=== PATIENT | male | born 1940 | race Caucasian/White ===

== ENCOUNTER → 2018-08-19 14:46 | Outpatient (CLI) | payer MEDICARE, OTHER, SELFPAY ==
[2018-08-09 14:31] VITALS: BMI 35.8
[2018-08-19 16:39] LABS: Protein, Urine (Random) < 6.0 mg/dL (<11.9); Protein:Creat Ratio 259 mg/g CRE (0-200)
[2018-08-19 16:49] LABS: Anion Gap 4 (5-15); BUN 14 mg/dL (7-18); BUN/Creat Ratio 13.6 RATIO (10-20); Calcium,Total 9.7 mg/dL (8.5-10.1); Chloride 104 mmol/L (98-107); Creatinine, Serum 1.03 mg/dL (0.70-1.30); EST Glomerular Filtration Rate 74 mL/min (>60); Est Glom Filt Rate - Afr Amer 90 mL/min (>60); Glucose 85 mg/dL (74-106); Potassium 3.9 mmol/L (3.5-5.1); Sodium Level 136 mmol/L (136-145)
== END ==
PROVIDERS: Family Provider Internal Medicine; PCP Internal Medicine; Referring Provider Specialist; Visit Provider Specialist
DX: R60.9 Edema, unspecified (principal)
CPT/HCPCS: 36415; 80048; 82570; 84156

== ENCOUNTER → 2018-09-06 09:31 | Outpatient (CLI) | payer MEDICARE, OTHER, SELFPAY ==
[2018-08-23 14:22] VITALS: BMI 35.3
[2018-09-06 11:52] LABS: Anion Gap 7 (5-15); BUN 19 mg/dL (7-18); BUN/Creat Ratio 17.6 RATIO (10-20); Calcium,Total 9.2 mg/dL (8.5-10.1); Chloride 104 mmol/L (98-107); Creatinine, Serum 1.08 mg/dL (0.70-1.30); EST Glomerular Filtration Rate 70 mL/min (>60); Est Glom Filt Rate - Afr Amer 85 mL/min (>60); Glucose 90 mg/dL (74-106); Sodium Level 139 mmol/L (136-145)
== END ==
PROVIDERS: Family Provider Internal Medicine; PCP Internal Medicine; Referring Provider Specialist; Visit Provider Specialist
DX: I48.91 Unspecified atrial fibrillation (principal); G47.33 Obstructive sleep apnea (adult) (pediatric); I10 Essential (primary) hypertension
CPT/HCPCS: 36415; 80048

== ENCOUNTER → 2018-09-23 07:01 | Outpatient (CLI) | payer MEDICARE, OTHER, SELFPAY ==
[2018-09-13 14:18] VITALS: BMI 34.0
--- NOTE | 2018-09-23 07:05 | CT_ITS ---
STUDY: CT ABDOMEN AND PELVIS WITH AND WITHOUT CONTRAST REASON FOR EXAM: Male, 78 years old. Gross hematuria RADIATION DOSAGE (If Supplied By Facility): CTDIvol = ( 26.65 ) mGy, DLP = ( 2185.42 ) mGycm TECHNIQUE: Transaxial images were obtained from the dome of the diaphragm to the symphysis pubis without oral contrast. 100mL IV Isovue 300 was administered. Sagittal and coronal images were reconstructed. Individualized dose optimization techniques were used for this CT. COMPARISON: None. FINDINGS: There are chronic interstitial fibrotic changes of the lung bases. There are calcified coronary vessels. Normal liver. There are multiple tiny gallstones. Normal spleen. There is diffuse atrophy of the pancreas. There is a 2.83 cm smooth, low attenuation left adrenal mass, consistent with an adrenal adenoma. Normal right adrenal gland. No obstructive uropathy noted. There is nonspecific induration of the perinephric fat, likely age-related. Scattered simple cysts noted in both kidneys. Normal visualized stomach. Normal small intestine. There are multiple colonic diverticula consistent with diverticulosis. There is non-visualization of the appendix. There is diffuse atherosclerotic calcification of the abdominal aorta, without a demonstrated aneurysm. Normal inferior vena cava. Normal retroperitoneum. Bladder distends normally without wall thickening. There is enlargement of the prostate which contains calcifications. The prostate measures 4.8 x 6.0 x 5.1 cm There is a small umbilical hernia containing fat. There are diffuse degenerative changes of the visualized lumbar spine, and pelvis. CT/CT Abd/Pelvis W/WO Contrast IMPRESSION: No obstructive uropathy. There are scattered simple cysts in both kidneys and nonspecific stranding of the perinephric fat which is likely age-related. No evidence of bladder wall thickening or mass lesion. There is however enlargement of the prostate which impinges upon the inferior aspect of the bladder, there are prostatic calcifications suggesting chronic prostatitis. Colonic diverticulosis Cholelithiasis Diffuse atherosclerosis Likely left adrenal adenoma measuring 2.8 cm Degenerative bony changes Electronically Signed: Bassem Pulido MD at 8:00 EDT , Service support ,
== END ==
PROVIDERS: Family Provider Internal Medicine; PCP Internal Medicine; Referring Provider Nurse Practitioner Adult Health; Visit Provider Nurse Practitioner Adult Health
DX: R31.0 Gross hematuria (principal)
CPT/HCPCS: 74178; Q9967

== ENCOUNTER → 2018-11-08 14:46 | Outpatient (CLI) | payer MEDICARE, OTHER, SELFPAY ==
[2018-11-08 13:55] VITALS: BMI 33.7
[2018-11-08 15:37] LABS: Anion Gap 6 (5-15); BUN 18 mg/dL (7-18); BUN/Creat Ratio 15.5 RATIO (10-20); Calcium,Total 9.1 mg/dL (8.5-10.1); Chloride 108 mmol/L (98-107); Creatinine, Serum 1.16 mg/dL (0.70-1.30); EST Glomerular Filtration Rate 64 mL/min (>60); Est Glom Filt Rate - Afr Amer 78 mL/min (>60); Glucose 96 mg/dL (74-106); Potassium 4.1 mmol/L (3.5-5.1); Sodium Level 144 mmol/L (136-145)
== END ==
PROVIDERS: Family Provider Internal Medicine; PCP Internal Medicine; Referring Provider Specialist; Visit Provider Specialist
DX: I10 Essential (primary) hypertension (principal); I48.91 Unspecified atrial fibrillation
CPT/HCPCS: 36415; 80048; 83735

== ENCOUNTER → 2018-11-10 14:35 | Outpatient (CLI) | payer MEDICARE, OTHER, SELFPAY ==
[2018-11-08 13:55] VITALS: BMI 33.7
== END ==
PROVIDERS: Family Provider Internal Medicine; PCP Internal Medicine; Referring Provider Specialist; Visit Provider Specialist
DX: I47.2 Ventricular tachycardia (principal)
CPT/HCPCS: 93225; 93226

== ENCOUNTER → 2018-11-17 11:43 | Outpatient (CLI) | payer MEDICARE, OTHER, SELFPAY ==
[2018-11-08 13:55] VITALS: BMI 33.7
[2018-11-17 11:51] LABS: Bacteria 0 SEEN /hpf (None Seen); Mucous, Urine 0 SEEN /hpf (<or=2+); Red Blood Cells-Urine 0 SEEN /hpf (0-5); White Blood Cells 0 SEEN /hpf (0-5)
[2018-11-17 12:28] LABS: Color, Urine Yellow (Yellow); Glucose, Dipstick Normal (Normal); Hematocrit 49.8 % (40-54); Hemoglobin 16.3 g/dL (13.0-16.5); Ketone-Dipstick Negative (Negative); Leukocyte Esterase-Dipstick 25 /ul (Negative); Mean Corp Hgb Conc 32.7 g/dL (32-36); Mean Corpuscular Hgb 30.5 pg (27.0-32.0); Mean Corpuscular Volume 93.3 fL (80-94); Mean Platelet Vol. 11.9 fl (6.2-12.0); Nitrite-Dipstick Negative (Negative); Occult Blood-Urine Negative /ul (Negative); Platelet Count 153 K/mm3 (150-450); Protein-Dipstick 30 mg/dl (Negative); RBC Distribution Width CV 15.1 % (11.6-14.6); Red Blood Count 5.34 M/mm3 (4.6-6.2); Specific Gravity, Urine 1.015 (1.002-1.030); Urine Bilirubin Dipstick Negative (Negative); Urine Clarity Clear (Clear); Urine Urobilinogen Normal (Normal); White Blood Count 5.3 K/mm3 (4.4-11.0)
[2018-11-17 12:34] LABS: International Normalized Ratio 1.1; Prothrombin Time (Protime)PT. 13.7 SECONDS (11.7-14.9)
[2018-11-17 13:16] LABS: Anion Gap 3 (5-15); BUN 19 mg/dL (7-18); BUN/Creat Ratio 19.1 RATIO (10-20); Chloride 109 mmol/L (98-107); Creatinine, Serum 0.99 mg/dL (0.70-1.30); EST Glomerular Filtration Rate 77 mL/min (>60); Est Glom Filt Rate - Afr Amer 93 mL/min (>60); Glucose 89 mg/dL (74-106); Potassium 4.3 mmol/L (3.5-5.1); Sodium Level 141 mmol/L (136-145)
[2018-11-17 15:49] LABS: Squamous Epithelial Cells - UA 0-5 SEEN /hpf (0-5)
== END ==
PROVIDERS: Family Provider Internal Medicine; PCP Internal Medicine; Referring Provider Internal Medicine Cardiovascular Disease; Visit Provider Internal Medicine Cardiovascular Disease
DX: I45.5 Other specified heart block (principal); R00.1 Bradycardia, unspecified; I48.91 Unspecified atrial fibrillation
CPT/HCPCS: 36415; 80048; 81001; 85027; 85610

== ENCOUNTER 2018-11-18 13:15 | Observation (INO) | payer MEDICARE, OTHER, SELFPAY ==
[2018-11-08 13:55] VITALS: BMI 33.7
[2018-11-18] VITALS (8 sets, daily range): BP systolic 137–165; BP diastolic 78–99; PULSE 60–62; RESP 16–18; TEMP 36.5–36.9; O2SAT 93–94
[2018-11-18] MEDS: Primidone 50 MG Tablet PO (21:23)
[2018-11-19 03:01] VITALS: PULSE 60
[2018-11-19 03:22] VITALS: BP 127/69; PULSE 60; RESP 18; TEMP 36.6; O2SAT 96
--- NOTE | 2018-11-19 05:55 | RAD_ITS ---
STUDY: X-RAY CHEST REASON FOR EXAM: Male, 78 years old. Pneumothorax TECHNIQUE: Frontal and lateral views of the chest. COMPARISON: Single chamber pacemaker on the left. FINDINGS: Right basilar atelectasis. There is no demonstrated pleural abnormality. Normal size heart. Normal mediastinum and issa. Normal visualized pulmonary arteries. There is atherosclerotic calcification of the aortic arch with tortuosity. There are diffuse degenerative changes of the visualized thoracic spine. Remote rib trauma. There is no demonstrated abnormality of the visualized soft tissue structures of the upper abdomen. RAD/Chest PA and Lateral IMPRESSION: No pneumothorax is visible. Electronically Signed: Neftaly Donohue MD at 6:05 EDT Tel , Service support ,
[2018-11-19 07:23] VITALS: PULSE 55
--- NOTE | 2018-11-19 09:12 | PCM.PN.CARD ---
Subjectve: Patient seen and evaluated Objective: Vital Signs Temp Pulse Resp BP Pulse Ox 97.8 F 55 L 18 127/69 H 96 11/19/18 03:22 11/19/18 07:23 11/19/18 03:22 11/19/18 03:22 11/19/18 03:22 Oxygen Delivery Method Room Air Weight: 205 lb 9.6 oz Body Mass Index (BMI) 33.7 Intake and Output for Last 24 Hours 11/17/18 11/18/18 11/19/18 23:59 23:59 23:59 Intake Total 460 / 460 200 / 200 Output Total 450 / 450 150 / 150 Balance 50 / 50 General: Awake, Alert, Oriented x 3 HEENT: PERRL, EOMI, Sclera Non Icteric Neck: Supple, Good ROM, No Lymph Node Enlargement Lungs: Clear to auscultation Cardiovascular: Regular Rhythm, Normal S1, Normal S2, No Murmurs, No Rubs, No Gallops Vascular: No Carotid Bruits, Normal Femoral Pulses, Normal Radial Pulses, Normal Dorsalis Pedal Pulse, Normal Posterior Tibial Pulses Abdomen: Bowel Sounds Present, Soft, Non Tender, No HSM, No Organomegaly Extremities: No Cyanosis, No Clubbing, No edema Musculoskeletal: No Erythema Skin: No Rashes Lymphatic: No Lymph Node Enlargement Neurological: No Focal Motor or Sensory Deficit Psych/Mental Status: Appropriate Rhythm: EKG: ECHO: Stress Test: Cardiac Cath: PCI: CT Surgery: Holter monitor: EPS: PPM: CXR: Chest CT Scan: Medical Necessity - Tobacco Use Smoking Status: Former smoker Assessment/Plan Atrial fibrillation- status post pacer placement Chest x-ray demonstrates no evidence of pneumothorax pacer check demonstrates adequate positioning. Patient can be discharged for outpatient follow-up. Would recommend resuming anticoagulation on November 23.
--- NOTE | 2018-11-19 09:16 | DCINST_ITS ---
Discharge Diet: Low fat/ Low Cholesterol Discharge Activity: May Not Drive Additional Activity Instructions:: May shower or bathe on []. Do not scrub the incision or soak in the tub. Just wash with soap and let the water run over the incision. Gently pat dry with towel. Medications: Take your pain medication as directed. Refer to your discharge instruction sheet for a list of medications you are to take. Call your doctor if your incision/area has: Continuous Slow Oozing, Sudden I ncreased Bleeding, Increased Pain/ Swelling, Increased Redness, Foul Smelling Discharge, Swelling at the incision site Call your doctor if you observe: Fever of 101 or Higher, Shortness of breath, Dizziness, Fainting spells, Swelling in the ankles, Chest pain, Prolonged hiccoughing, Increased palpitations (irregular heartbeat) Suture Line Care: Avoid Pulling/Pushing, Avoid Pinching/Bending Cleanse incision/area with: Do not get Incision Wet, Keep Dressing Clean & Dry Additional Dressing/Incision Instructions:: When dressing is removed, wash and dry incision. Keep covered with a light bandage if it is rubbing against your clothing. Do not cover the incision with an airtight bandage. Change the bandage daily. Do not remove steri strips. The strips will fall off on their own. Additional Instructions: Signs and Symptoms to Report to Your Doctor at Once - call your doctor's office or Doctor's Registry ([phone]) Call 911 or go to the nearest Emergency Department if you feel you need urgent care. *Infection (fever, increased redness or swelling at the incision site, drainage from the incision increased pain at the pacemaker site) *Shortness of breath *Dizziness *Fainting spells *Swelling in the ankles *Chest pain *Prolonged hiccoughing *Increased palpitaitons (irregular heartbeat) Medications: Take your pain medication as directed. Refer to your discharge instruction sheet for a list of medications you are to take. Allergies/Adverse Reactions: Allergies No Known Allergies Allergy (Verified 11/08/18 13:57) Medications to take at Discharge omeprazole 20 mg capsule,delayed release 20 mg PO DAILY 08/05/18 primidone 50 mg tablet 50 mg PO BID tab 08/05/18 pyridoxine (vitamin B6) 100 mg tablet 100 mg PO DAILY 06/07/19 terazosin 5 mg capsule 5 mg PO DAILY 08/05/18 finasteride 5 mg tablet 5 mg PO DAILY 08/23/18 furosemide 20 mg tablet 40 mg PO DAILY #60 tab 08/23/18 potassium chloride ER 20 mEq tablet,extended release 20 meq PO DAILY #30 tab 08/23/18 apixaban 5 mg tablet 5 mg PO BID #60 tab 11/08/18 omega-3 fatty acids-fish oil 360 mg-1,200 mg capsule 1 cap PO DAILY 11/08/18 Primary Care Physician: Nicolas Cardenas MD [Primary Care Provider] - Test Results: Test results from this visit will be discussed in further detail at your follow- up appointment, if applicable. When: [facility] 11/28/2018 AT 1 PM Proposed Discharge Date: 11/19/18
[2018-11-19] MEDS: Pyridoxine HCl 100 MG Tablet PO (09:17)
[2018-11-19] MEDS: Pantoprazole Sodium 20 MG Tablet PO (09:19)
[2018-11-19] MEDS: Primidone 50 MG Tablet PO (09:19)
[2018-11-19] MEDS: Doxazosin 4 MG Tablet PO (09:21)
[2018-11-19] MEDS: Finasteride 5 MG Tablet PO (09:21)
[2018-11-19 09:22] VITALS: BP 153/86; PULSE 60; RESP 16; TEMP 36.7; O2SAT 96
--- NOTE | 2018-11-24 09:59 | CL.IE_ITS ---
Patient: JOHNATHON DILLARD Study Date: 11/18/2018 Performing: Edson Quinn MD : [id number] Age: 78 Gender: male PROCEDURES PERFORMED [id number] PACER INSERT+VENTRICULAR LEAD INDICATIONS Atrial fibrillation and symptomatic Bradycardia PROCEDURE DETAILS The patient was brought to the Catheterization Lab in the postabsorptive nonsedated state. Infor med consent was obtained prior to the procedure. Local anesthetic was given subcutaneously to the le ft upper chest area with Lidocaine 2%. Access was achieved and a guidewire was advanced into the left subclavian vein. Incision was made to the left upper chest. A peel-away sheath was inserted into the left subclavian vein. PPM ventricular lead was inserted / positioned to right ventricular apex. PPM ventricular lead testing performed. PPM ventricular lead testing performed. The Ventricular PM lead s utured in place with 2-0 Silk. PPM generator was attached to the lead(s) and inserted into the pocket . Device pocket was irrigated with antibiotic. Subcutaneous closure was completed with 3-0 Vicryl. Sk in closure was completed with 4-0 Vicryl. Instrument, sponge, and needle counts were noted to be norm al. The patient tolerated the procedure well. Estimated Blood Loss: < 10 mls IMPLANTED / EX-PLANTED DEVICES IMPLANTED DEVICE(S): PPM Ventricular lead - Cardiac Monitor: [employer], Model # 7742 , Serial # [id number] PPM Generator - Cardiac Monitor: [employer], Model # L110 , Serial # [id number] DEVICE PARAMETERS VENTRICULAR LEAD PARAMETERS: R wave (mV) - 12.9 current (mA) - 0.4 threshold (V) - 0.3 impedence (OHMS) - 879 10V test; no diaphragmatic capture R wave- 12.8 (mV) Current- 0.4 (mA) threshold- 0.3 (V) impedence- 879 (OHMS) 10V test, no diaphragmatic capture DEVICE PARAMETERS: Mode - VVI lower rate - 60 rate response off Mode- VVI Lower rate- 60 CONCLUSIONS / RECOMMENDATIONS Device Conclusions: Successful implantation of a single chamber pacemaker Device Recommendations: Follow up with Primary Care Physician PROCEDURE MEDICATIONS Versed 1 mg IV Fentanyl 25 mcg IV Oxygen: 2 L/min via nasal cannula Antibiotic given in appropriate timeframe. Ancef 2 Gm IV @ 11/18/2018 11:55:17 Signed By Edson Quinn MD On 11/18/2018 13:00:25 Edson Quinn MD
== END 2018-11-19 09:19 | disposition home or self-care (01) ==
LOC: PCU 14:33 → CLSP 14:35 → PCU 14:35
PROVIDERS: Admitting Provider Internal Medicine Cardiovascular Disease; Family Provider Internal Medicine; PCP Internal Medicine; Referring Provider Internal Medicine Cardiovascular Disease; Visit Provider Internal Medicine Cardiovascular Disease
DX: Z45.018 Encounter for adjustment and management of other part of cardiac pacemaker (principal); I48.91 Unspecified atrial fibrillation; R00.1 Bradycardia, unspecified; G47.33 Obstructive sleep apnea (adult) (pediatric); N40.0 Benign prostatic hyperplasia without lower urinary tract symptoms; I10 Essential (primary) hypertension; G25.0 Essential tremor; G89.29 Other chronic pain; Z87.891 Personal history of nicotine dependence; Z79.899 Other long term (current) drug therapy
CPT/HCPCS: 33207; 71046; 96366; 99152; 99153; 99218; J7040; J7050; C1894; G0378

== ENCOUNTER 2021-10-20 20:19 | Observation (INO) | payer MEDICARE, OTHER, SELFPAY ==
[2021-10-20 20:20] VITALS: BP 127/92; PULSE 60; RESP 28; TEMP 36.2; O2SAT 98; BMI 28.6
[2021-10-20 20:24] VITALS: BP 127/92; PULSE 60; RESP 25; TEMP 36.2; O2SAT 98
--- NOTE | 2021-10-20 21:06 | CT_ITS ---
STUDY: CT BRAIN WITHOUT CONTRAST REASON FOR EXAM: Male, 81 years old. fall RADIATION DOSAGE (If Supplied By Facility): CTDIvol = ( 44.99 ) mGy, DLP = ( 829.85 ) mGycm TECHNIQUE: Transaxial CT imaging of the brain was performed without administration of intravenous contrast material. Individualized dose optimization techniques were used for this CT. COMPARISON: No relevant priors. FINDINGS: Normal soft tissue structures. Normal calvarium. There is moderate cerebral atrophy with widening of the extra-axial spaces and ventricular dilatation. There are areas of decreased attenuation within the white matter tracts of the supratentorial brain, consistent with microvascular disease changes. Normal basal ganglia and thalami. Normal brainstem. Normal cerebellum. 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 Intracranial atherosclerosis. There is no intracranial hemorrhage. There are no findings of an acute ischemic infarction. Normal visualized paranasal sinuses. 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 Otherwise no acute disease. Recommend follow-up CTA. Electronically Signed: Joe Webb MD at 21:55 EDT ,
--- NOTE | 2021-10-20 21:07 | EDS_ITS ---
HPI HPI - Fall History of Present Illness Chief Complaint: Fall Informant: patient and family Occured/Mechanism Occurred: Today Mechanism/Context: Yes same level fall and Yes cannot recall fall Usually ambulates: Without assistance Pain/Injury Pain Location: none Associated Symptoms Associated Symptoms: Negative for Parasthesias, Weakness, Loss of function, Loss of consciousness or Amnesia Narrative Narrative: 81-year-old male history of dementia, A. fib on Eliquis and a pacemaker. Lives alone at his home but his daughter checks on him frequently. She went to check on him today and he was lying on the floor in the hallway going into the bathroom. He does not remember falling. He does not remember what happened. He denies any complaints. Prior similar symptoms: No Recent Illness/Hospitalization: No PFSH PFSH Medical History (Updated 10/20/21 @ 23:[address] Abhinav Leigh MD) Atrial fibrillation Benign neoplasm of colon BPH (benign prostatic hyperplasia) Bradycardia Chronic midline low back pain without sciatica Chronic rhinitis Essential (primary) hypertension Essential tremor Hematuria Mild memory disturbance Multiple gastric ulcers SUZAN on CPAP (11/07/18) Sick sinus syndrome Sinus pause Home Medications omeprazole 20 mg capsule,delayed release 20 mg PO DAILY GERD 08/05/18 [History Last Taken 11/18/18] pyridoxine (vitamin B6) 100 mg tablet 100 mg PO DAILY vitamin 08/05/18 [History Last Taken Unknown] terazosin 5 mg capsule 5 mg PO DAILY high blood pressure 08/05/18 [History Last Taken Unknown] finasteride 5 mg tablet 5 mg PO DAILY BPH 08/23/18 [History Last Taken Unknown] omega-3 fatty acids-fish oil 360 mg-1,200 mg capsule (Fish Oil) 1 cap PO DAILY supplement 11/08/18 [History Last Taken Unknown] furosemide 40 mg tablet 40 mg PO DAILY #90 tabs 11/11/20 [Rx Last Taken Unknown] potassium chloride 20 mEq tablet,extended release 20 meq PO DAILY #90 tabs 11/11/20 [Rx Last Taken Unknown] apixaban 5 mg tablet (Eliquis) 5 mg PO BID #180 tabs 04/14/21 [Rx Last Taken Unknown] aspirin 10/20/21 [History Last Taken Unknown] terazosin 5 mg capsule 5 mg PO DAILY 10/20/21 [History Last Taken Unknown] Allergy/AdvReac Type Severity Reaction Status Date / Time No Known Allergies Allergy Verified 10/20/21 21:09 Family History Father Heart disease Brother Heart disease Surgical History History of inguinal hernia repair History of tonsillectomy Presence of cardiac pacemaker (11/18/18) Social History Smoking Status: Current some day smoker tobacco type: cigarettes how long ago did patient quit smokin years ago alcohol intake: never substance use type: does not use caffeine: No ROS ROS ED ROS Narrative Denies recent illness. Family said he was in normal health yesterday. Review of Systems ROS Unobtainable: Denies due to encephalopathy Constitutional Constitutional ED: Denies chills Eyes Eyes: Denies blurry vision ENT ENT ED: Denies ear pain Cardiovascular Cardiovascular: Denies chest pain Respiratory/Chest Respiratory/Chest: Denies cough or dyspnea Gastrointestinal Gastrointestinal: Denies abdominal pain, constipation, diarrhea, melena, nausea or vomiting Genitourinary Genitourinary ED: Denies dysuria or hematuria Musculoskeletal Musculoskeletal: Denies arthralgias Integumentary Denies abscess Neurologic Neurologic: Denies headache(s) Psychiatric Psychiatric: Denies anxiety Endocrine Endocrinology: Denies polydipsia Hematologic/Lymphatic Hematologic/Lymphatic: Denies easy bleeding Allergic/Immunologic Allergic/Immunologic ED: Denies mouth swelling EXAM Physical Exam Narrative Exam Narrative: 81-year-old male no acute distress. Vital signs stable afebrile. Pulse ox 98% on room air no hypoxia. Daughter and son-in-law at bedside. H EENT exam pupils round reactive light. No signs of trauma to his face or scalp. Nontender. No hematomas. C-spine nontender. Trachea midline. Back nontender. Kyphotic. No signs of trauma. Lungs clear to auscultation. Heart regular rate about 60. Chest wall nontender. Abdomen soft nontender. Pelvic girdle intact. Patient moving all 4 extremities. No deformity. No shortening or rotation either hip. Neurologically is awake and alert. He does have dementia. He is a limited informant. But he is answering questions and following commands. No focal motor deficits. Const Vital Signs: 10/20/21 20:20 10/20/21 20:24 10/20/21 23:26 Temperature 97.2 F L 97.2 F L 98.6 F Temperature Source Oral Oral Temporal Pulse Rate 60 60 60 Respiratory Rate 28 H 25 H 20 H Blood Pressure 127/92 H 127/92 H 133/104 H Blood Pressure Mean 103 103 113 Pulse Ox 98 98 94 Oxygen Delivery Method Room Air Room Air Room Air Positive well nourished and well developed; Negative for obese, cachectic, contractures or unkempt General Appearance ED: well developed and NAD; Negative for unkempt, cachectic or contractures Nutritional Appearance: Negative for cachectic or obese HEENT Reports normocephalic atraumatic; Negative for trauma or contusion Eyes PERRL and EOMs intact bilaterally General Eye ED: Negative for pale conjunctiva or scleral icterus Neck full ROM, no lymphadenopathy and supple General: Negative for tenderness Chest Wall inspection of chest normal and palpation of chest normal Resp normal respiratory effort, no retractions and clear to auscultation bilaterally Auscultation: Negative for rales or rhonchi Cardio regular rate, S1 normal heart sound, S2 normal heart sound and no murmurs GI non-tender, non-distended and no masses Inspection: Negative for abdominal distention Auscultation: normoactive bowel sounds Palpation: soft; Negative for guarding Back/Spine no CVA tenderness General Back: Negative for CVA tenderness Cervical Spine: Negative for cervical spine tenderness Thoracic Spine / Upper Back: Negative for ROM limited Lumbar Spine / Lower Back: Negative for lumbar spinal tenderness Neuro No oriented x3, moves all extremities and no focal motor deficits Neuro Narrative: Patient has dementia. Poor informant. But he does answer questions and follows commands. Jass Coma Scale: document GCS findings Spontaneous Obeys Commands Oriented 15 Sensorium / Orientation: alert, oriented to person and oriented to place Motor Exam: strength 5/5 throughout Psych mental status grossly normal and thought process normal Appearance: Negative for unkempt Attitude: No agitated Mood & Affect: Negative for depressed, anxious or tearful Skin Lesions: no lesions Rashes: no rashes Trauma: Negative for abrasion MDM MDM MDM Narrative Medical decision making narrative: 81-year-old male fall at home. On Eliquis. I do not see any obvious signs of head trauma. Screening labs to be obtained. We will attempt a walking to see if he can ambulate. Repeat exam patient doing well at 10:45 PM. I discussed with the patient and his family all his test results. The nurses will attempt to ambulate and if he ambulates he will be discharged home. Daughter is at bedside and patient are both comfortable with him being discharged home. She is aware that Tess send a urine culture. He has had no urinary symptoms. I explained to them that I would not treat unless the culture came back positive. Nurses attempted to walk the patient around 11:20 and he was very weak and unsteady on his feet. He did catch him twice from falling to the ground. Daughter stated that deafly not his baseline. He does not use a walker or anything at home. I will speak to the hospitalist about admitting the patient for weakness and failure to thrive. Lab Data Attestation: I reviewed the patient's lab results. Lab results narrative: CBC shows a white count 13.5. H&H of 15 and 47. Normal platelets. Electrolytes show a gap of 9. Normal BUN and creatinine. Glucose of 110. UA shows 250 occult blood negative nitrates. 0 red cells 5-10 white cells no epithelial cells only 1+ bacteria. A urine culture be sent. He has had no re cent urinary tract symptoms. Labs: Laboratory Results - last 24 hr 10/20/21 10/20/21 10/20/21 21:28 21:28 21:58 WBC 13.5 H RBC 5.14 Hgb 15.9 Hct 47.7 MCV 92.8 MCH 30.9 MCHC 33.3 RDW Std Deviation 48.4 H RDW Coeff of Sonja 14.4 Plt Count 198 MPV 10.4 Immature Gran % (Auto) 0.700 Neut % (Auto) 85.8 H Lymph % (Auto) 4.4 L Greenwood % (Auto) 9.0 Eos % (Auto) 0.0 Baso % (Auto) 0.1 Absolute Neuts (auto) 11.6 H Absolute Lymphs (auto) 0.59 L Nucleated RBC % 0 Differential Comment SEE COMMENT Platelet Estimate ADEQUATE RBC Morphology N CHROM Anisocytosis RARE Macrocytosis RARE Sodium 141 Potassium 3.6 Chloride 107 Carbon Dioxide 25.0 Anion Gap 9 BUN 16 Creatinine 1.07 Estim Creat Clear Calc 53.23 Est GFR (MDRD) Af Amer 85 Est GFR (MDRD) Non-Af 70 BUN/Creatinine Ratio 15.0 Glucose 110 H Calcium 9.1 Urine Color Kristina Urine Clarity Sl. 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 Otherwise no acute disease. Recommend follow-up CTA. Electronically Signed: Joe Webb MD at 21:55 EDT , Chest X-Ray 10/20/21 21:34 IMPRESSION: Change in position of the pacer. Poor inspiratory effort. Electronically Signed: Joe Webb MD at 21:56 EDT , Pelvis X-Ray 10/20/21 21:34 IMPRESSION: Normal x-ray examination of the pelvis. Electronically Signed: Joe Webb MD at 21:58 EDT , Chest x-ray, portable, single view shows no acute abnormality. Normal cardiac silhouette. No pneumonia. Left-sided pacemaker. Interpreted both by myself and the radiologist. Pelvis x-ray single view cervical myself and radiologist shows no acute fracture or dislocation. Chronic changes. Rhythm Strip Rhythm Strip: Paced Rate: 60 Ectopy: None EKG Initial EKG: Attestation: I personally reviewed and interpreted this EKG as follows: Interpretation: No Acute Injury Pattern and Paced Comments: Ventricular paced rhythm rate of 60. No acute abnormality. Discharge Plan Triage Chief Complaint: Fall Other Complaint: Confusion ED Provider: Abhinav Leigh Dx/Rx/DC Orders Clinical Impression: Fall, History of atrial fibrillation, Chronic anticoagulation, Adult failure to thrive Instructions: ED Fall with Uncertain Cause Prescriptions: No Action omeprazole 20 mg capsule,delayed release(DR/EC) 20 mg PO DAILY pyridoxine (vitamin B6) 100 mg tablet 100 mg PO DAILY terazosin 5 mg capsule 5 mg PO DAILY finasteride 5 mg tablet 5 mg PO DAILY omega-3 fatty acids-fish oil [Fish Oil] 360-1,200 mg capsule 1 cap PO DAILY aspirin terazosin 5 mg capsule 5 mg PO DAILY furosemide 40 mg tablet 40 mg PO DAILY Qty: 90 3RF potassium chloride 20 mEq tablet extended release 20 meq PO DAILY Qty: 90 3RF Eliquis 5 mg tablet 5 mg PO BID Qty: 180 3RF Primary Care Provider: Nicolas Cardenas Referrals: Nicolas Cardenas MD [Primary Care Provider] - 3-5 Days if not improving Disposition Disposition: Acute Care Hospital [facility]
--- NOTE | 2021-10-20 21:07 | EKG12_ITS ---
Test Reason : DYSRHYTHMIA Blood Pressure : / mmHG Vent. Rate : 060 BPM Atrial Rate : 208 BPM P-R Int : 000 ms QRS Dur : 180 ms QT Int : 470 ms P-R-T Axes : 000 -69 075 degrees QTc Int : 470 ms Ventricular-paced rhythm Abnormal ECG Confirmed by LILI ALAMO, KAILEY ([id number]), editor publications ROMAN NAYAK ([id number]) on 10/22/2021 11:21:14 AM Referred By: DAYO Confirmed By:KAILEY PEARSON MD
[2021-10-20 21:33] LABS: Absolute Lymphocyte Count 0.59 X10^3/uL (0.83-4.51); Absolute Neutrophil Count 11.6 X10^3/uL (2.0-7.7); Basophil# 0.02 X10^3/uL; Basophil% 0.1 % (0-1); Hematocrit 47.7 % (40-54); Hemoglobin 15.9 g/dL (13.0-16.5); Lymphocyte # 0.59 X10^3/ul (0.83-4.51); Lymphocyte % 4.4 % (19-41); Mean Corp Hgb Conc 33.3 g/dL (32-36); Mean Corpuscular Hgb 30.9 pg (27.0-32.0); Mean Corpuscular Volume 92.8 fL (80-94); Mean Platelet Vol. 10.4 fl (6.2-12.0); Monocyte# 1.21 X10^3/uL; NRBC Flagged by Analyzer 0 % (0-5); Neutrophil # 11.59 X10^3/uL (2.7-7.7); Neutrophil % 85.8 % (47-70); POSITIVE DIFFERENTIAL YES; Platelet Count 198 K/mm3 (150-450); RBC Distribution Width CV 14.4 % (11.6-14.6); RBC Distribution Width SD 48.4 fl (35.1-43.9); Red Blood Count 5.14 M/mm3 (4.6-6.2); White Blood Count 13.5 K/mm3 (4.4-11.0)
--- NOTE | 2021-10-20 21:34 | RAD_ITS ---
STUDY: X-RAY - PELVIS REASON FOR EXAM: Male, 81 years old. fall TECHNIQUE: One view of the pelvis was obtained. COMPARISON: None. FINDINGS: There is a non-specific bowel gas pattern. Normal visualized soft tissue structures. Normal bilateral iliac wings, sacroiliac joints and visualized sacrum. Normal visualized bilateral superior and inferior pubic rami. Normal pubic symphysis. Normal ischial tuberosities. Normal visualized right femoral head. Normal right acetabulum. Normal right hip joint. Normal visualized left femoral head. Normal left acetabulum. Normal left hip joint. RAD/Pelvis 1 or 2 Views IMPRESSION: Normal x-ray examination of the pelvis. Electronically Signed: Joe Webb MD at 21:58 EDT ,
--- NOTE | 2021-10-20 21:34 | RAD_ITS ---
STUDY: X-RAY CHEST REASON FOR EXAM: Male, 81 years old. weakness TECHNIQUE: Single frontal view of the chest. COMPARISON: 11/19/2018 FINDINGS: Unipolar pacer on the left appears rotated. Elevated hemidiaphragms. The lungs are clear and expanded. There is no demonstrated pleural abnormality. Normal size heart. Normal mediastinum and issa. Normal visualized pulmonary arteries. Normal visualized aortic arch and descending thoracic aorta. Normal visualized thoracic spine. Normal visualized ribs, clavicles, and shoulders. There is no demonstrated abnormality of the visualized soft tissue structures of the upper abdomen. RAD/Chest 1 View (Portable) IMPRESSION: Change in position of the pacer. Poor inspiratory effort. Electronically Signed: Joe Webb MD at 21:56 EDT ,
[2021-10-20 21:36] LABS: Differential Indicated SCAN CRITERIA MET
[2021-10-20 21:51] LABS: Anion Gap 9 (5-15); BUN 16 mg/dL (7-18); Calcium,Total 9.1 mg/dL (8.5-10.1); Chloride 107 mmol/L (98-107); Creatinine, Serum 1.07 mg/dL (0.70-1.30); EST Glomerular Filtration Rate 70 mL/min (>60); Est Glom Filt Rate - Afr Amer 85 mL/min (>60); Estimated Creatinine Clearance 53.23 ml/min; Glucose 110 mg/dL (74-106); Potassium 3.6 mmol/L (3.5-5.1); Sodium Level 141 mmol/L (136-145)
[2021-10-20 22:04] LABS: Color, Urine Amber (Yellow); Glucose, Dipstick Normal (Normal); Ketone-Dipstick 50 mg/dl (Negative); Leukocyte Esterase-Dipstick 25 /ul (Negative); Mucous, Urine 0 SEEN /hpf (<or=2+); Nitrite-Dipstick Negative (Negative); Occult Blood-Urine 250 /ul (Negative); Protein-Dipstick 30 mg/dl (Negative); Red Blood Cells-Urine 0 SEEN /hpf (0-5); Specific Gravity, Urine 1.025 (1.002-1.030); Squamous Epithelial Cells - UA 0 SEEN /hpf (0-5); Urine Bilirubin Dipstick Negative (Negative); Urine Clarity Sl. Cloudy (Clear); Urine Urobilinogen 1 mg/dl (Normal)
[2021-10-20 22:09] LABS: Platelet Estimate ADEQUATE (ADEQ); Red Cell Morphology N CHROM NORMAL (NORM C&C)
[2021-10-20 22:10] LABS: Anisocytosis RARE; Macrocytosis RARE
[2021-10-20 22:12] LABS: White Blood Cells 5-10 SEEN /hpf (0-5)
[2021-10-20 22:13] LABS: Bacteria 1+ /hpf (None Seen); Hyaline Cast 0-5 SEEN /lpf (0-5)
[2021-10-20 23:26] VITALS: BP 133/104; PULSE 60; RESP 20; TEMP 37; O2SAT 94
--- NOTE | 2021-10-20 23:46 | HP.PCM.HOS_ITS ---
HPI - General General Date of Admission: 10/20/21 Date of Service: 10/20/21 Chief Complaint: Found lying on the floor HPI Narrative JOHNATHON DILLARD, is a 81 M with a significant history of sick sinus syndrome; atrial fibrillation; hypertension and with a permament pacemaker who presents to the emergency department because he was found on the floor. Patient lived by himself but once a while his adult children check on him. On the day of presentation his daughter checked on him and found him on the floor close to the bathroom. Patient stated that he felt unwell. At the emergency department attempt was made to walk patient. Reportedly patient almost fell 2-3 times and was caught by nurse. [facility] Medical History Atrial fibrillation Benign neoplasm of colon BPH (benign prostatic hyperplasia) Bradycardia Chronic midline low back pain without sciatica Chronic rhinitis Essential (primary) hypertension Essential tremor Hematuria Mild memory disturbance Multiple gastric ulcers SUZAN on CPAP (11/07/18) Sick sinus syndrome Sinus pause Home Medications omeprazole 20 mg capsule,delayed release 20 mg PO DAILY GERD 08/05/18 [History Last Taken 11/18/18] pyridoxine (vitamin B6) 100 mg tablet 100 mg PO DAILY vitamin 08/05/18 [History Last Taken Unknown] terazosin 5 mg capsule 5 mg PO DAILY high blood pressure 08/05/18 [History Last Taken Unknown] finasteride 5 mg tablet 5 mg PO DAILY BPH 08/23/18 [History Last Taken Unknown] omega-3 fatty acids-fish oil 360 mg-1,200 mg capsule (Fish Oil) 1 cap PO DAILY supplement 11/08/18 [History Last Taken Unknown] furosemide 40 mg tablet 40 mg PO DAILY #90 tabs 11/11/20 [Rx Last Taken Unknown] potassium chloride 20 mEq tablet,extended release 20 meq PO DAILY #90 tabs 11/11/20 [Rx Last Taken Unknown] apixaban 5 mg tablet (Eliquis) 5 mg PO BID #180 tabs 04/14/21 [Rx Last Taken Unknown] aspirin 10/20/21 [History Last Taken Unknown] terazosin 5 mg capsule 5 mg PO DAILY 10/20/21 [History Last Taken Unknown] Allergy/AdvReac Type Severity Reaction Status Date / Time No Known Allergies Allergy Verified 10/20/21 21:09 Family History Father Heart disease Brother Heart disease Surgical History History of inguinal hernia repair History of tonsillectomy Presence of cardiac pacemaker (11/18/18) Social History (Updated 10/21/21 @ 00:[address] Robinson Nguyen MD) Smoking Status: Former smoker how long ago did patient quit smokin years ago alcohol intake: never substance use type: does not use caffeine: No ROS ROS Narrative Pertinent positives and pertinent negatives as noted in HPI. All other systems were reviewed and are negative Vital Signs Vital Signs Vital Signs: 10/20/21 20:20 10/20/21 20:24 10/20/21 23:26 Temperature 97.2 F L 97.2 F L 98.6 F Temperature Source Oral Oral Temporal Pulse Rate 60 60 60 Respiratory Rate 28 H 25 H 20 H Blood Pressure 127/92 H 127/92 H 133/104 H Blood Pressure Mean 103 103 113 Pulse Ox 98 98 94 Oxygen Delivery Method Room Air Room Air Room Air Weight Weight: 87.9 kg Body Mass Index (BMI) 28.6 Physical Exam Narrative Physical exam: General: Well-nourished, well-developed. Head: Normocephalic, atraumatic, no tenderness Eyes: Vision is grossly intact. EOMI ENT, no trauma, moist mucous membranes, no rhinorrhea Neck: Nontender, full range of motion. CVS: Regular rate and rhythm. S1-S2 present. No murmur, gallop or rub. Respiratory : clear to auscultation bilaterally, chest wall nontender, no whee zing Abdomen: Soft, nontender, nondistended, normal bowel sounds, no masses : Deferred Back: Nontender, no CVA tenderness. Extremities: Nontender full range of motion, no trauma Skin: Abrasions on ankle of right foot. Normal color. Neuro: Alert, oriented, cranial nerves II through XII grossly intact. Psychiatry: Normal mood. Normal affect. Not depressed. Not anxious. Results Lab / Micro Data Attestation: I reviewed the patient's lab results. Result Diagrams: 10/20/21 21:28 10/20/21 21:28 Labs: Laboratory Results - last 24 hr 10/20/21 21:28: WBC 13.5 H, RBC 5.14, Hgb 15.9, Hct 47.7, MCV 92.8, MCH 30.9, MCHC 33.3, RDW Std Deviation 48.4 H, RDW Coeff of Sonja 14.4, Plt Count 198, MPV 10.4, Immature Gran % (Auto) 0.700, Neut % (Auto) 85.8 H, Lymph % (Auto) 4.4 L, [place] % (Auto) 9.0, Eos % (Auto) 0.0, Baso % (Auto) 0.1, Absolute Neuts (auto) 11.6 H, Absolute Lymphs (auto) 0.59 L, Nucleated RBC % 0, Differential Comment SEE COMMENT, Platelet Estimate ADEQUATE, RBC Morphology N CHROM, Anisocytosis RARE, Macrocytosis RARE 10/20/21 21:28: Sodium 141, Potassium 3.6, Chloride 107, Carbon Dioxide 25.0, Anion Gap 9, BUN 16, Creatinine 1.07, Estim Creat Clear Calc 53.23, Est GFR (MDRD) Af Amer 85, Est GFR (MDRD) Non-Af 70, BUN/Creatinine Ratio 15.0, Glucose 110 H, Calcium 9.1 10/20/21 21:58: Urine Color Kristina, Urine Clarity Sl. 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 Otherwise no acute disease. Recommend follow-up CTA. Electronically Signed: Joe Webb MD at 21:55 EDT Reading Location ID and State: [address] [place] [address] , Service support , Chest X-Ray 10/20/21 21:34 IMPRESSION: Change in position of the pacer. Poor inspiratory effort. Electronically Signed: Joe Webb MD at 21:56 EDT Reading Location ID and State: [facility] / [place] , Service support , Pelvis X-Ray 10/20/21 21:34 IMPRESSION: Normal x-ray examination of the pelvis. Electronically Signed: Joe Webb MD at 21:58 EDT Reading Location ID and State: [facility] / [place] , Service support , Assessment & Plan Assessment/Plan (1) Fall: PLAN: Plan Fall Pelvic X-ray was visualized and independently interpreted. No acute cardiopulmonary process seen. PT and OT to work with patient. Noted to have urine occult blood but no RBC seen. Check CPK. Case management consult for disposition. 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 Follow-up CTA recommended. CTA ordered Leukocytosis WBC of 13.5; likely reactive; trend DVT prophylaxis: Not indicated as patient is on Eliquis Eliquis continued Charges/Coding Visit Charges OBSV E&M: 38763 Initial observation care L2
--- NOTE | 2021-10-21 00:08 | CT_ITS ---
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 RADIATION DOSAGE (If Supplied By Facility): CTDIvol = ( 39.04 ) mGy, DLP = ( 738.38 ) mGycm TECHNIQUE: CT angiography was performed with a multi-detector CT scanner. Data acquisition was obtained from the skull base through the vertex following intravenous administration of 100 mL of Isovue-370. MIP images were reconstructed from the axial data set. Post-processing of the angiographic images was performed, with multiplanar reformation and 3D reconstruction. Individualized dose optimization techniques were used for this CT. COMPARISON: No relevant priors. FINDINGS: Normal bilateral petrous carotid arteries. There is ectatic elongation and tortuosity of the right cavernous carotid artery without a demonstrated hemodynamically significant stenosis. There is ectatic elongation and tortuosity of the left cavernous carotid artery without a demonstrated hemodynamically significant stenosis. There is hypoplastic development of the right A1 segment of the anterior cerebral arteries with an atretic but intact artery. Normal left A1 segments of the anterior cerebral artery. Normal intact anterior communicating artery (ACOM). Only a single A2 segment is visualized possibly an azygous variant. Normal right M1 and M2 segments of the middle cerebral arteries, with a normal M1 bifurcation. Normal left M1 and M2 segments of the middle cerebral arteries, with a normal M1 bifurcation. There is non-visualization of the right posterior communicating artery (PCOM). There is non-visualization of the left posterior communicating artery (PCOM). Normal bilateral vertebral arteries. There is elongation with tortuosity and diffuse enlargement consistent with dolichoectasia. The visualized bilateral superior cerebellar (SCA) arteries are normal. Normal bilateral P1, P2 and visualized P3 segments of the posterior cerebral arteries. There is no demonstrated aneurysm of the [place]. There are senescent changes of the brain. AORTIC ARCH: There is mild atherosclerotic calcification of the thoracic aorta. Normal origins of the brachiocephalic, left common carotid, and left subclavian arteries. RIGHT CAROTID ARTERIES: Normal right common carotid artery (CCA). There is mild atherosclerotic plaque formation with minimal narrowing of the right carotid bulb. Normal origin of the right internal carotid (ICA) artery without a hemodynamically significant stenosis. There is atherosclerotic tortuous elongation of the cervical portion of the right internal carotid artery. Normal origin of the right external carotid artery (ECA). LEFT CAROTID ARTERIES: There is atherosclerotic tortuous elongation of the left common carotid artery. There is mild atherosclerotic plaque formation with minimal narrowing of the left carotid bulb. Normal origin of the left internal carotid (ICA) artery without a hemodynamically significant stenosis. There is atherosclerotic tortuous elongation of the cervical portion of the left internal carotid artery. Normal origin of the left external carotid artery (ECA). VERTEBRAL ARTERIES: Normal bilateral vertebral arteries. NECK ANATOMY: Lung apices appear to be clear. Patient appears to have a left-sided pacemaker. The thyroid is mildly atrophic. Visualized parotid and submandibular glands have a normal appearance. Nasopharynx, oropharynx, hypopharynx and larynx have a grossly normal appearance. There are multilevel degenerative changes of the cervical spine with disc space narrowing at almost every level. Bones appear osteopenic. CT/CTA Head AND Neck W/ Contrast IMPRESSION: No CT evidence for hemodynamically significant stenosis, acute thrombosis, dissection or aneurysm. Electronically Signed: Marsha Tomas MD at 3:39 EDT ,
[2021-10-21 00:46] VITALS: BP 115/74; PULSE 60; RESP 25; TEMP 36.6; O2SAT 94
[2021-10-21 01:00] VITALS: BMI 28.1
[2021-10-21 01:22] VITALS: BP 128/64; PULSE 59; RESP 18; TEMP 37; O2SAT 97
[2021-10-21 05:51] LABS: Absolute Lymphocyte Count 0.75 X10^3/uL (0.83-4.51); Absolute Neutrophil Count 11.4 X10^3/uL (2.0-7.7); Basophil# 0.02 X10^3/uL; Basophil% 0.1 % (0-1); Hematocrit 47.3 % (40-54); Hemoglobin 15.7 g/dL (13.0-16.5); Lymphocyte # 0.75 X10^3/ul (0.83-4.51); Lymphocyte % 5.6 % (19-41); Mean Corp Hgb Conc 33.2 g/dL (32-36); Mean Corpuscular Hgb 31.2 pg (27.0-32.0); Mean Corpuscular Volume 93.8 fL (80-94); Mean Platelet Vol. 11.2 fl (6.2-12.0); Monocyte# 1.13 X10^3/uL; Monocyte% 8.5 % (0-10); NRBC Flagged by Analyzer 0 % (0-5); Neutrophil # 11.42 X10^3/uL (2.7-7.7); Neutrophil % 85.4 % (47-70); Platelet Count 219 K/mm3 (150-450); RBC Distribution Width CV 14.7 % (11.6-14.6); RBC Distribution Width SD 50.5 fl (35.1-43.9); Red Blood Count 5.04 M/mm3 (4.6-6.2); White Blood Count 13.4 K/mm3 (4.4-11.0)
[2021-10-21 06:42] LABS: Anion Gap 8 (5-15); BUN 16 mg/dL (7-18); BUN/Creat Ratio 14.2 RATIO (10-20); CPK Total, Creatine Kinase 4375 U/L (39-308); Calcium,Total 9.1 mg/dL (8.5-10.1); Chloride 107 mmol/L (98-107); Creatinine, Serum 1.13 mg/dL (0.70-1.30); EST Glomerular Filtration Rate 66 mL/min (>60); Est Glom Filt Rate - Afr Amer 80 mL/min (>60); Estimated Creatinine Clearance 48.76 ml/min; Glucose 144 mg/dL (74-106); Potassium 3.7 mmol/L (3.5-5.1); Sodium Level 141 mmol/L (136-145); Thyroid Stim Hormone (TSH) 1.56 uIU/mL (0.358-3.74)
--- NOTE | 2021-10-21 07:25 | PN.HOSP_ITS ---
Subjective Subjective Seen and examined. Patient had fall about 2 to 3 weeks ago. 7 years recently 1 fall last 1 year. He has problem in balance and quick turn.. No significant or major injury. No fever. Mild occasional constipation. No burning micturition/UTI. Objective Data Objective Data Vital Signs: Vital Signs Temp Pulse Resp BP Pulse Ox O2 Del Method 98.6 F 59 L 18 128/64 H 97 Room Air 10/21/21 01:22 10/21/21 01:22 10/21/21 01:10/21/21 01:10/21/21 01:10/21/21 01:22 Oxygen Delivery Method Room Air Weight: 190 lb 4.143 oz Body Mass Index (BMI) 28.1 Lab / Micro Data Result Diagrams: 10/21/21 04:26 10/21/21 04:26 Labs: Laboratory Results - last 24 hr 10/20/21 21:28: WBC 13.5 H, RBC 5.14, Hgb 15.9, Hct 47.7, MCV 92.8, MCH 30.9, MCHC 33.3, RDW Std Deviation 48.4 H, RDW Coeff of Sonja 14.4, Plt Count 198, MPV 10.4, Immature Gran % (Auto) 0.700, Neut % (Auto) 85.8 H, Lymph % (Auto) 4.4 L, [place] % (Auto) 9.0, Eos % (Auto) 0.0, Baso % (Auto) 0.1, Absolute Neuts (auto) 11.6 H, Absolute Lymphs (auto) 0.59 L, Nucleated RBC % 0, Differential Comment SEE COMMENT, Platelet Estimate ADEQUATE, RBC Morphology N CHROM, Anisocytosis RARE, Macrocytosis RARE 10/20/21 21:28: Sodium 141, Potassium 3.6, Chloride 107, Carbon Dioxide 25.0, Anion Gap 9, BUN 16, Creatinine 1.07, Estim Creat Clear Calc 53.23, Est GFR (MDRD) Af Amer 85, Est GFR (MDRD) Non-Af 70, BUN/Creatinine Ratio 15.0, Glucose 110 H, Calcium 9.1 10/20/21 21:58: Urine Color Kristina, Urine Clarity Sl. Cloudy, Urine pH 5.0, Ur Specific [place] 1.025, Urine Protein 30 H, Urine Glucose (UA) Normal, Urine Ketones 50 H, Urine Occult Blood 250 H, Urine Nitrite Negative, Urine Bilirubin Negative, Urine Urobilinogen 1 H, Ur Leukocyte Esterase 25 H, Urine RBC 0 SEEN, Urine WBC 5-10 SEEN, Ur Squamous Epith Cells 0 SEEN, Urine Bacteria 1+, Hyaline Casts 0-5 SEEN, Urine Mucus 0 SEEN 10/21/21 04:26: WBC 13.4 H, RBC 5.04, Hgb 15.7, Hct 47.3, MCV 93.8, MCH 31.2, MCHC 33.2, RDW Std Deviation 50.5 H, RDW Coeff of Sonja 14.7 H, Plt Count 219, MPV 11.2, Immature Gran % (Auto) 0.400, Neut % (Auto) 85.4 H, Lymph % (Auto) 5.6 L, [place] % (Auto) 8.5, Eos % (Auto) 0.0, Baso % (Auto) 0.1, Absolute Neuts (auto) 11.4 H, Absolute Lymphs (auto) 0.75 L, Nucleated RBC % 0 10/21/21 04:26: Sodium 141, Potassium 3.7, Chloride 107, Carbon Dioxide 26.0, Anion Gap 8, BUN 16, Creatinine 1.13, Estim Creat Clear Calc 48.76, Est GFR (MDRD) Af Amer 80, Est GFR (MDRD) Non-Af 66, BUN/Creatinine Ratio 14.2, Glucose 144 H, Calcium 9.1, Total Creatine Kinase 4375 H, TSH 1.56 Radiography Diagnostic Testing: Radiology Impression Brain CT 10/20/21 21:06 IMPRESSION: 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 Otherwise no acute disease. Recommend follow-up CTA. Electronically Signed: Joe Webb MD at 21:55 EDT Reading Location ID and State: [facility] / [place] , Service support , Chest X-Ray 10/20/21 21:34 IMPRESSION: Change in position of the pacer. Poor inspiratory effort. Electronically Signed: Joe Webb MD at 21:56 EDT Reading Location ID and State: [facility] / [place] , Service support , Pelvis X-Ray 10/20/21 21:34 IMPRESSION: Normal x-ray examination of the pelvis. Electronically Signed: Joe Webb MD at 21:58 EDT , Head/Neck CTA 10/21/21 00:08 IMPRESSION: No CT evidence for hemodynamically significant stenosis, acute thrombosis, dissection or aneurysm. Electronically Signed: Marsha Tomas MD at 3:39 EDT , Rhythm Strip Rhythm Strip: Paced Rate: 60 Ectopy: None Physical Exam Narrative Physical exam: General: Alert, Oriented x3, Cooperative HEENT: Atraumatic, PERRLA, EOMI, Normocephalic Oral: No Gingival or Mucosal Lesions/ Ulcerations Neck: Supple, No JVD, Negative Carotid Bruits Lungs: Air entry diminished in bilateral lung bases. No crepitation/rhonchi Cardiovascular: Regular rate, Regular Rhythm, Normal S1, Normal S2, No murmurs Abdomen: Bowel Sounds Present, Soft, Non Tender, Non-Distended : No renal angle tenderness. No suprapubic tenderness. Extremities: No edema, Capillary Refill Less than 3 Seconds Skin: No rashes, No breakdown Musculoskeletal: No Tenderness to Palpation of Joints or Extremities Neurological: Cranial nerves II-XII grossly intact, DTR 2+/4 and Symmetrical, Neuro grossly intact Psych/Mental Status: Normal Affect, Appropriate. Assessment & Plan Assessment/Plan (1) Fall: PLAN: Plan This is a 81-year-old gentleman was brought to ED after he was found on the floo r. In the ED, patient could not walk himself and were near fall situation 2-3 times under supervised walking by nurse 1. Fall with mild rhabdomyolysis Pelvic X-ray was visualized and independently reviewed and no acute fracture. CTA head and neck does not show acute issues. No significant hemodynamically significant stenosis or occlusion in CTA. PT and OT to evaluate the patient Case management consult for disposition. 2. 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 CT head did not support this. Leukocytosis WBC of 13.5; likely reactive; trend 3. Mild rhabdomyolysis: Noted to have urine occult blood but no RBC seen. CPK high 4375. No muscle tenderness or swelling on exam. IV fluid normal saline 75 mill per hour. Monitor CPK. Mild occasional constipation: On laxatives. 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 Otherwise no acute disease. Recommend follow-up CTA. Chest X-Ray 10/20/21 21:34 IMPRESSION: Change in position of the pacer. Poor inspiratory effort. Pelvis X-Ray 10/20/21 21:34 IMPRESSION: Normal x-ray examination of the pelvis. Head/Neck CTA 10/21/21 00:08 IMPRESSION: No CT evidence for hemodynamically significant stenosis, acute thrombosis, dissection or aneurysm. Charges/Coding Visit Charges OBSV E&M: 30742 Subsequent observation care L2
[2021-10-21 08:00] VITALS: BP 125/67; PULSE 59; RESP 18; TEMP 37.1; O2SAT 97
[2021-10-21] MEDS: Potassium Chloride Oral Tablet 20 MEQ PO (08:38)
[2021-10-21] MEDS: Menthol/Lanolin/Calamine/Znox 113 GM Tube 1 APPLIC TOPICAL ×2 (08:39→21:44)
[2021-10-21] MEDS: Omega-3 Acid Ethyl Esters 1 GM Capsule PO (08:40)
[2021-10-21] MEDS: APIXABAN 5 MG TABLET PO ×2 (08:40→21:46)
[2021-10-21] MEDS: Doxazosin 4 MG Tablet PO (08:40)
[2021-10-21] MEDS: Finasteride 5 MG Tablet PO (08:40)
[2021-10-21] MEDS: Nystatin Powder 15gm Bottle 1 APPLIC TOPICAL ×2 (08:40→21:44)
[2021-10-21] MEDS: Furosemide 40 MG Tablet PO (08:41)
[2021-10-21] MEDS: Pantoprazole Sodium 20 MG Tablet PO (08:41)
[2021-10-21] MEDS: Pyridoxine HCl 100 MG Tablet PO (08:41)
[2021-10-21 09:11] LABS: Vitamin D,25 Hydroxy 10.8 ng/mL
--- NOTE | 2021-10-21 10:24 | CASEMGMT ---
Addendum entered by Kristina Ferrari 10/21/21 11:46: Pt's son gave choice for SNF as [facility] in [place], followed by [facility]. Addendum entered by Kristina Ferrari 10/21/21 11:32: CONOR met with pt's son who discussed he is currently in the process of obtaining guardianship over his fathers person and estate due to his fathers demented state. Pt's son had documentation from pt's PCP and is awaiting a court date. He discussed that he has been looking into the [facility] ([facility]) for vermin exterminator care for his father. SW explained to him that his father may need a skilled level of care. SW explained that that a phone call to gather information from [facility] would occur and that SW would keep him updated. SW called [facility] and talked with admissions. This worker struggled to hear the woman on the phone and she stating she was having technology issues. She stated she was not sure that the facility could take pt in a skilled level of care and suggested the pt's family send him under private pay to their memory care unit. SW informed that the pt may need rehab first, but that the family was considering [facility] for their memory care unit and private pay. The woman asked this worker to send a referral and provided the fax number: [phone]. Original Note: Social Work SW in to meet with pt and his daughter, Jazmine Foster. SW introduced self and role at the hospital. Pt did not speak and instead referred to his daughter to discuss discharge plans with SW. Jazmine shared she believes pt will need a nursing facility to work on rehab. SW discussed the pending PT/OT evaluations and that staff would have a clearer picture of pt's needs once these are complete. Jazmine voiced understanding. Patient and his daughter were provided a list of?SNF?providers including quality and resource use data that is consistent with the patient?s preferred geographic region, medical needs, and insurance network to plan options if SNF is recommended by therapy. At this time Jazmine discussed waiting or her older brother to make the correct choice of SNF for their father. She indicated her brother would be at the hospital this afternoon. Plan: SNF, if therapy recommends after evaluations. MEGHANN Etienne
--- NOTE | 2021-10-21 11:52 | CASEMGMT ---
Discharge Pain Management Nurse Rosanne dominguez commercial lending assistant sent referral over to [facility]. Asked admissions to contact CONOR Acevedo with any questions. Rosanne Vega Discharge Pain Management Nurse
--- NOTE | 2021-10-21 12:07 | CASEMGMT ---
Social Work SW in to speak with pt's son regarding phonce call with [facility]. SW explained that facility is unsure if they can take pt under skilled level of care. Explained this would mean if he wanted his father to go to this facility he would have to private pay. Pt's son stated they are unable to privately pay at this time. SW asked if he would like a referral sent to [facility] [place] as second choice and he was agreeable. Plan: [facility] vs. [facility], pending acceptance. MEGHANN Etienne
[2021-10-21 14:00] VITALS: BP 119/67; PULSE 59; RESP 16; TEMP 36.5; O2SAT 95
--- NOTE | 2021-10-21 14:00 | CASEMGMT ---
Discharge Template Checker Rosanne Ambrose multimedia production assistant called Tracy at [facility]. Counce will have two beds open. Rosanne junior/rosemary multimedia production assistant also sent referral to patients second choice. Will follow up. Plan: [facility] vs [facility], Waiting Acceptance. Rosanne Vega Discharge Template Checker
--- NOTE | 2021-10-21 16:02 | CASEMGMT ---
RN CM in to discuss RAMIREZ form with patient/son. RN CM explained RAMIREZ form, patient/son voiced understanding. Pt son signed form and filed in chart. Pt and son provided with a copy of signed RAMIREZ form. Patient/son had no further questions or concerns at this time.
--- NOTE | 2021-10-21 16:05 | CASEMGMT ---
Social Work SW in to speak to pt's son, Jhonny Jimenez, and discussed possibility that pt would not get approved for skilled rehab based on his PT/OT evaluations and notes. SW explained based on these notes that pt does not demonstrate a significant need for SNF. Jhonny voiced understanding after SW continued to educate and clarify on insurance coverage benefits. SW discussed option of pt having HHC after discharge if necessary and Jhonny stated this may be a good option for his father if he cannot go to SNF. SW provided contact number for Jhonny to reach out with further questions. Kristina Ferrari, MEGHANN
[2021-10-21] MEDS: 0.9% Normal Saline 1,000 ML 75 ML IV (18:08)
[2021-10-21] MEDS: 0.9% Saline Lock 10 ML Syringe IV (18:09)
[2021-10-21 20:00] VITALS: BP 116/62; PULSE 60; RESP 18; TEMP 36.8; O2SAT 94
[2021-10-21] MEDS: Senna/Docusate Sodium 1 Tablet 2 TABLET PO (21:46)
[2021-10-22] VITALS: BP 149/57; PULSE 85; RESP 18; TEMP 36.9; O2SAT 94
--- NOTE | 2021-10-22 00:12 | PCM.HOSP.N ---
Hospitalist Note Patient set off his bed alarm, found sitting on the floor. Unable to discern any head trauma. Initially reported no pain and no obvious injuries upon initial evaluation. Patient with notable dementia and several attempts to get up through the evening. Will add low dose seroquel q HS given this history and his fall. To be cautious will obtain CT head.
--- NOTE | 2021-10-22 00:13 | CT_ITS ---
EXAM: CT HEAD WITHOUT INTRAVENOUS CONTRAST CLINICAL INDICATION: Fall TECHNIQUE: Multiple axial images were obtained of the head without intravenous contrast. This CT exam was performed using one or more of the following dose reduction techniques: automated exposure control, adjustment of the mA and/or kV according to patient size, and/or use of iterative reconstruction technique. This report was created using [employer] report generation technology. COMPARISON: 10/20/2021 FINDINGS: BRAIN AND EXTRA-AXIAL SPACES: Diffuse cerebral volume loss. Periventricular small vessel ischemic changes. No intra- or extra-axial hemorrhage. No intracranial mass or mass effect. Posterior fossa structures are unremarkable. No hydrocephalus. Basal cisterns are patent. BONES/JOINTS: Unremarkable. No discrete lytic or blastic abnormalities. VASCULATURE: Vascular calcifications. SINUSES: Unremarkable as visualized. Clear. MASTOID AIR CELLS: Unremarkable. Clear. ORBITS: Visualized globes, extraocular muscles, optic nerves and retrobulbar fat appear unremarkable. CT/Brain/Head without Contrast IMPRESSION: 1. No acute intracranial abnormalities. 2. Age-related changes. Electronically Signed: Ciaran Li MD at 1:04 EDT ,
[2021-10-22] MEDS: QUEtiapine 25 MG Tablet 12.5 MG PO (00:42)
[2021-10-22 02:30] VITALS: BP 118/69; PULSE 67; RESP 20; TEMP 36.4; O2SAT 95
[2021-10-22 06:53] LABS: CPK Total, Creatine Kinase 1616 U/L (39-308)
--- NOTE | 2021-10-22 07:46 | CASEMGMT ---
Discharge Creative Strategist Tracy reached out. Patient has been accepted at [facility]. If patient is medically ready patient can go to [facility] but not until evening as [facility] has to clean room from a discharge that will be leaving today. Tracy will give the okay when the room is ready. Plan: [facility] Discharge Creative Strategist
--- NOTE | 2021-10-22 08:07 | CASEMGMT ---
Social Work SW received pc from [facility]. Pt was not accepted. They do not have a bed available at this time. MEGHANN Etienne
[2021-10-22 08:30] VITALS: BP 125/71; PULSE 59; RESP 16; TEMP 36.8; O2SAT 95
[2021-10-22] MEDS: Doxazosin 4 MG Tablet PO (09:03)
[2021-10-22] MEDS: Potassium Chloride Oral Tablet 20 MEQ PO (09:03)
[2021-10-22] MEDS: Omega-3 Acid Ethyl Esters 1 GM Capsule PO (09:03)
[2021-10-22] MEDS: Finasteride 5 MG Tablet PO (09:03)
[2021-10-22] MEDS: APIXABAN 5 MG TABLET PO (09:03)
[2021-10-22] MEDS: Menthol/Lanolin/Calamine/Znox 113 GM Tube 1 APPLIC TOPICAL (09:03)
[2021-10-22] MEDS: Pantoprazole Sodium 20 MG Tablet PO (09:04)
[2021-10-22] MEDS: Pyridoxine HCl 100 MG Tablet PO (09:04)
[2021-10-22] MEDS: Senna/Docusate Sodium 1 Tablet 2 TABLET PO (09:04)
[2021-10-22] MEDS: Nystatin Powder 15gm Bottle 1 APPLIC TOPICAL (09:04)
--- NOTE | 2021-10-22 09:21 | PCM.TXEXTCAR ---
Diet Diet Order/Speech Therapy: 10/21/21 01:00 Diet: Cardiac - Heart Healthy Food consistency:: Regular Liquid Consistency:: Regular/Thin Routine Orders/Code Status Suppository Type: Dulcolax 10mg Suppository Frequency: Daily PRN Code Status: Full Code Wound(s) R. elbow: Wound Type: Abrasion Therapies Weight Bearing: Weight bearing as tolerated Extremity Affected:: Bilateral Lower Physical Therapy: Eval and Treat Occupational Therapy: Eval and Treat Speech Therapy: Eval and Treat Problem/Diagnosis (1) Fall: Status: Acute Code(s): W19.XXXA - Unspecified fall, initial encounter Allergies/Procedures Done in Hospital Allergies No Known Allergies Allergy (Verified 10/20/21 21:09) Type of Care/Length of Stay Estimated LOS: Convalescent Care Less Than 30 days Type of Care Needed: Skilled Rehab Potential: Good Prognosis: Good Additional Orders/Day of Discharge Day of Discharge: 10/22/21 Discharge Plan Admission Admit Date/Time: 10/20/21 23:39 Primary Reason for Your Visit: Fall, confusion possible dementia. Mild rhabdomyolysis Attending Provider: Kevin Nichole Primary Care Provider: Nicolas Cardenas Consulting Providers: Robinson Nguyen Instructions Patient Instructions: ED Fall with Uncertain Cause Discharge Orders/Prescriptions Prescriptions: New sennosides-docusate sodium [Stool Softener-Stimulant Laxat] 8.6-50 mg Tablet 2 tab PO BID Qty: 0 0RF menthol-zinc oxide [Calmoseptine] 0.44-20.6 % Ointment 1 applic topical BID Qty: 0 0RF Protocol: *Topical Application Instructions APPLICATION INSTRUCTIONS: apply to coccyx/buttocks Continued omeprazole 20 mg capsule,delayed release(DR/EC) 20 mg PO DAILY pyridoxine (vitamin B6) 100 mg tablet 100 mg PO DAILY finasteride 5 mg tablet 5 mg PO QHS omega-3 fatty acids-fish oil [Fish Oil] 360-1,200 mg capsule 1 cap PO DAILY terazosin 5 mg capsule 5 mg PO QHS potassium chloride 20 mEq tablet extended release 20 meq PO DAILY Qty: 90 3RF Eliquis 5 mg tablet 5 mg PO BID Qty: 180 3RF Held furosemide 40 mg tablet 40 mg PO DAILY Qty: 90 3RF Hold Instructions: Start from 10/24/2021 Referrals / Follow Up: Nicolas Cardenas MD [Primary Care Provider] - Within 2 Weeks Disposition Disposition (needs filled in before D/C Order can be placed): Custodial Facility
--- NOTE | 2021-10-22 09:31 | DS.PCM_ITS ---
Providers Date of Admission: 10/20/21 Date of Discharge: 10/22/21 Primary Care Physician: Dr. Nicolas Cardenas MD Reason For Visit: FALL, DEBILITY Diagnosis Discharge Diagnosis (1) Fall: Status: Acute Code(s): W19.XXXA - Unspecified fall, initial encounter Medications at Discharge Home Medications omeprazole 20 mg capsule,delayed release 20 mg PO DAILY GERD 08/05/18 pyridoxine (vitamin B6) 100 mg tablet 100 mg PO DAILY vitamin 08/05/18 finasteride 5 mg tablet 5 mg PO QHS BPH 08/23/18 omega-3 fatty acids-fish oil 360 mg-1,200 mg capsule (Fish Oil) 1 cap PO DAILY supplement 11/08/18 furosemide 40 mg tablet 40 mg PO DAILY #90 tabs 11/11/20 potassium chloride 20 mEq tablet,extended release 20 meq PO DAILY #90 tabs 11/11/20 apixaban 5 mg tablet (Eliquis) 5 mg PO BID #180 tabs 04/14/21 terazosin 5 mg capsule 5 mg PO QHS 10/20/21 menthol 0.44 %-zinc oxide 20.6 % topical ointment (Calmoseptine) 1 applic topical BID #0 grams 10/22/21 sennosides 8.6 mg-docusate sodium 50 mg tablet (Stool Softener-Stimulant Laxative) 2 tab PO BID #0 tabs 10/22/21 Hospital Course Summary of Care Provided Hospital Course: This is a 81-year-old gentleman was brought to ED after he was found on the ks oor. In the ED, patient could not walk himself and were near fall situation 2-3 times under supervised walking by nurse 1. Fall with mild rhabdomyolysis Pelvic X-ray was visualized and independently reviewed and no acute fracture. CTA head and neck does not show acute issues. No significant hemodynamically significant stenosis or occlusion in CTA. 10/22: UA shows LE 25 WBC 5-10 cells, nitrite negative. Patient denies burning micturition/dysuria. Patient was found on the floor, does not remember how he went there. Evaluated by PT and OT and patient is being discharged to SNF. Patient might have dementia/amnesia/MCI, patient might also need [facility] psych evaluation as an outpatient. 2. Abnormal brain CT of basilar artery aneurysm ruled out CTA head raised the issue of possible basilar tip artery aneurysm. CT head did not support this. Leukocytosis WBC of 13.5; likely reactive; trend 3. Mild rhabdomyolysis: Noted to have urine occult blood but no RBC seen. CPK high 4375. No muscle tenderness or swelling on exam. IV fluid normal saline 75 mill per hour. Monitor CPK. 10/22: Repeat CK improved. Mild occasional constipation: On laxatives. DVT prophylaxis: Not indicated as patient is on Eliquis Eliquis continued Discharge medication reconciliation done. Discharge follow-up instructions completed. Discharge process discussed with the patient and all questions were answered to patient's satisfaction. Total time spent, exact 35 minutes on discharge meds reconciliation, examination, coordination of care with nurses and ancillary staff, review of imaging and blood test and discussion with the patient on follow-up instructions. 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 Otherwise no acute disease. Recommend follow-up CTA. Chest X-Ray 10/20/21 21:34 IMPRESSION: Change in position of the pacer. Poor inspiratory effort. Pelvis X-Ray 10/20/21 21:34 IMPRESSION: Normal x-ray examination of the pelvis. Head/Neck CTA 10/21/21 00:08 IMPRESSION: No CT evidence for hemodynamically significant stenosis, acute thrombosis, dissection or aneurysm. Physical Exam Narrative Seen and examined. Patient was found on the floor last night. Patient does not remember how he went there. As per the nursing report he is fasting walking but also he might have dementia. Repeat CT head was done which did not show acute intracranial abnormality Physical exam: General: Alert, Oriented x3, Cooperative HEENT: Atraumatic, PERRLA, EOMI, Normocephalic Oral: No Gingival or Mucosal Lesions/ Ulcerations Neck: Supple, No JVD, Negative Carotid Bruits Lungs: Air entry diminished in bilateral lung bases. No crepitation/rhonchi Cardiovascular: Regular rate, Regular Rhythm, Normal S1, Normal S2, No murmurs Abdomen: Bowel Sounds Present, Soft, Non Tender, Non-Distended : No renal angle tenderness. No suprapubic tenderness. Extremities: No edema, Capillary Refill Less than 3 Seconds Skin: No rashes, No breakdown Musculoskeletal: No Tenderness to Palpation of Joints or Extremities Neurological: Cranial nerves II-XII grossly intact, DTR 2+/4 and Symmetrical, Neuro grossly intact Psych/Mental Status: Normal Affect, Appropriate. Weight / BMI Weight Weight: 190 lb 4.143 oz Body Mass Index (BMI) 28.1 ABG / Lab / Microbiology Data Result Diagrams: 10/21/21 04:26 10/21/21 04:26 Laboratory: Laboratory Results - last 24 hr 10/22/21 05:37: Total Creatine Kinase 1616 H Radiography Diagnostic Testing: Radiology Impression Brain CT 10/22/21 00:13 IMPRESSION: 1. No acute intracranial abnormalities. 2. Age-related changes. Electronically Signed: Ciaran Li MD at 1:04 EDT , Meaningful Use Info Meaningful Use Diagnoses (Choose all that apply): None applicable Discharge Plan Admission Admit Date/Time: 10/20/21 23:39 Primary Reason for Your Visit: Fall, confusion possible dementia. Mild rhabdomyolysis Attending Provider: Kevin Nichole Primary Care Provider: Nicolas Cardenas Consulting Providers: Robinson Nguyen Instructions Patient Instructions: ED Fall with Uncertain Cause Discharge Orders/Prescriptions Prescriptions: New sennosides-docusate sodium [Stool Softener-Stimulant Laxat] 8.6-50 mg Tablet 2 tab PO BID Qty: 0 0RF menthol-zinc oxide [Calmoseptine] 0.44-20.6 % Ointment 1 applic topical BID Qty: 0 0RF Protocol: *Topical Application Instructions APPLICATION INSTRUCTIONS: apply to coccyx/buttocks Continued omeprazole 20 mg capsule,delayed release(DR/EC) 20 mg PO DAILY pyridoxine (vitamin B6) 100 mg tablet 100 mg PO DAILY finasteride 5 mg tablet 5 mg PO QHS omega-3 fatty acids-fish oil [Fish Oil] 360-1,200 mg capsule 1 cap PO DAILY terazosin 5 mg capsule 5 mg PO QHS potassium chloride 20 mEq tablet extended release 20 meq PO DAILY Qty: 90 3RF Eliquis 5 mg tablet 5 mg PO BID Qty: 180 3RF Held furosemide 40 mg tablet 40 mg PO DAILY Qty: 90 3RF Hold Instructions: Start from 10/24/2021 Referrals / Follow Up: Nicolas Cardenas MD [Primary Care Provider] - Within 2 Weeks Disposition Disposition (needs filled in before D/C Order can be placed): Longterm Facility Charges/Coding Visit Charges Inpatient E&M: 44143 Disch Hosp
--- NOTE | 2021-10-22 09:47 | CASEMGMT ---
Social Work SW in to pt room to notifiy him that he has been accepted to [facility]. Pt confused, stated I don't know what to say. SW reassured pt and told him his childre, Jazmine and Jhonny, would be updated on what is happening with his discharge plans. Pt okay with this. CONOR called pt's daughter Jazmine, and informed her of pt's denial for [facility] in [place] and that he had been accepted at [facility]. SE explained [facility] does not have a bed until 4 pm but that her father would be transported there by this evening. Jazmine voiced understanding and stated she would call her brother, Jhonny, to inform him of this information. SW called Tracy at [facility], left message to confirm 4pm transport time would be alright with [facility]. Plan: [facility], waiting for confirmation of time that bed is available there today MEGHANN Etienne
--- NOTE | 2021-10-22 09:54 | PHA.DC.MR ---
Pharmacy Service has performed discharge medication reconciliation for this patient. The patient's discharge medication list was reviewed for discrepancies and discrepancies were resolved. Home Medications omeprazole 20 mg capsule,delayed release 20 mg PO DAILY GERD 08/05/18 pyridoxine (vitamin B6) 100 mg tablet 100 mg PO DAILY vitamin 08/05/18 finasteride 5 mg tablet 5 mg PO QHS BPH 08/23/18 omega-3 fatty acids-fish oil 360 mg-1,200 mg capsule (Fish Oil) 1 cap PO DAILY supplement 11/08/18 furosemide 40 mg tablet 40 mg PO DAILY #90 tabs 11/11/20 potassium chloride 20 mEq tablet,extended release 20 meq PO DAILY #90 tabs 11/11/20 apixaban 5 mg tablet (Eliquis) 5 mg PO BID #180 tabs 04/14/21 terazosin 5 mg capsule 5 mg PO QHS 10/20/21 menthol 0.44 %-zinc oxide 20.6 % topical ointment (Calmoseptine) 1 applic topical BID #0 grams 10/22/21 sennosides 8.6 mg-docusate sodium 50 mg tablet (Stool Softener-Stimulant Laxative) 2 tab PO BID #0 tabs 10/22/21
--- NOTE | 2021-10-22 10:45 | CASEMGMT ---
Social Work SW in to speak to pt's son, Jhonny Jimenez, to inform him of denial at [facility] and the approval for [place]. Jhonny voiced frustration with pt's fall over night. He stated he was not sure why his father needed an IV and is certain the IV was the cause of his fall last night. Jhonny stated he felt like pt should not have had the IV. This SW validated Johnny's feelings and asked him if he would like to speak with the Patient Advocate. Jhonny declined, stating I would just get irate and continued talking about being frustrated. This SW attempted to ease Jhonny's concerns but also educated Jhonny that medical information is outside this SW's scope of practice and he would need to speak with a medical professional to find the answers he wants. Jhnony voiced understanding. Encouraged Jhonny to ask for SW if he would like to speak to the patient advocate at a later time. SW called Rob and left a voicemail outlining Jhonny's concerns and informing him that Jhonny may want to speak with him later this day. Kristina Ferrari, MEGHANN
--- NOTE | 2021-10-22 14:40 | CASEMGMT ---
Social Work CONOR received pc from [facility] stating room was available for pt now. SW went into pt room to update pt's son on transport time. He voiced understanding that pt would be discharged to SNF.? CONOR asked pt's nurse to determine if he needs wheelchair or cot and then set up transportation for pt via [facility] with wheelchair for?4:00pm. CONOR called Tracy and left a message to inform her of pt transport time. Completed Full PASSR level of care in [facility]ENS system and placed report on pt file along with transfer order and med list. Faxed orders to SNF and placed copies on pt chart and in envelope to go with pt. Pt disposition: Pt discharging to SNF under skilled level of care. MEGHANN Etienne
== END 2021-10-22 17:24 | disposition skilled nursing facility (03) ==
LOC: ED 23:34 → MS3 23:48
PROVIDERS: Admitting Provider Hospitalist; Emergency Provider Emergency Medicine; PCP Internal Medicine; Visit Provider Internal Medicine
DX: M62.82 Rhabdomyolysis (principal); F03.90 Unspecified dementia, unspecified severity, without behavioral disturbance, psychotic disturbance, mood disturbance, and anxiety; I48.91 Unspecified atrial fibrillation; R62.7 Adult failure to thrive; F17.210 Nicotine dependence, cigarettes, uncomplicated; I10 Essential (primary) hypertension; R53.81 Other malaise; Z95.0 Presence of cardiac pacemaker; R41.0 Disorientation, unspecified; Z91.81 History of falling; N40.0 Benign prostatic hyperplasia without lower urinary tract symptoms; G47.33 Obstructive sleep apnea (adult) (pediatric); Z79.899 Other long term (current) drug therapy; Z79.01 Long term (current) use of anticoagulants; Z79.82 Long term (current) use of aspirin
CPT/HCPCS: 36415; 70450; 70496; 70498; 71045; 72170; 80048; 81001; 82306; 82550; 84443; 85025; 87086; 87088; 87426; 93005; 96360; 96361; 97162; 97166; 97535; 99218; 99285; J7030; Q9967; A4216; G0378

== ENCOUNTER → 2021-11-26 | Outpatient (REF) | payer MEDICARE, OTHER, SELFPAY ==
[2021-11-26 08:43] LABS: Absolute Lymphocyte Count 1.47 X10^3/uL (0.83-4.51); Absolute Neutrophil Count 6.4 X10^3/uL (2.0-7.7); Basophil# 0.05 X10^3/uL; Basophil% 0.6 % (0-1); Eosinophils% 1.1 % (0-5); Hematocrit 46.5 % (40-54); Hemoglobin 15.3 g/dL (13.0-16.5); Lymphocyte # 1.47 X10^3/ul (0.83-4.51); Lymphocyte % 16.4 % (19-41); Mean Corp Hgb Conc 32.9 g/dL (32-36); Mean Corpuscular Hgb 31.8 pg (27.0-32.0); Mean Corpuscular Volume 96.7 fL (80-94); Mean Platelet Vol. 11.2 fl (6.2-12.0); Monocyte# 0.89 X10^3/uL; Monocyte% 9.9 % (0-10); NRBC Flagged by Analyzer 0 % (0-5); Neutrophil # 6.42 X10^3/uL (2.7-7.7); Neutrophil % 71.7 % (47-70); Platelet Count 181 K/mm3 (150-450); RBC Distribution Width CV 14.5 % (11.6-14.6); RBC Distribution Width SD 51.9 fl (35.1-43.9); Red Blood Count 4.81 M/mm3 (4.6-6.2)
[2021-11-26 08:54] LABS: Anion Gap 6 (5-15); BUN 15 mg/dL (7-18); BUN/Creat Ratio 13.3 RATIO (10-20); Calcium,Total 8.7 mg/dL (8.5-10.1); Chloride 107 mmol/L (98-107); Creatinine, Serum 1.13 mg/dL (0.70-1.30); EST Glomerular Filtration Rate 66 mL/min (>60); Est Glom Filt Rate - Afr Amer 80 mL/min (>60); Glucose 92 mg/dL (74-106); Sodium Level 141 mmol/L (136-145)
== END ==
LOC: OLS.WHLTSB 04:49
PROVIDERS: PCP Internal Medicine; Visit Provider Family Medicine
DX: I10 Essential (primary) hypertension (principal); K59.00 Constipation, unspecified; M62.81 Muscle weakness (generalized); N40.0 Benign prostatic hyperplasia without lower urinary tract symptoms; R00.1 Bradycardia, unspecified; R13.12 Dysphagia, oropharyngeal phase; R26.2 Difficulty in walking, not elsewhere classified
CPT/HCPCS: 36415; 80048; 85025

== ENCOUNTER → 2021-12-10 | Outpatient (REF) | payer MEDICARE, OTHER, SELFPAY ==
[2021-12-10 08:50] LABS: Absolute Lymphocyte Count 1.33 X10^3/uL (0.83-4.51); Absolute Neutrophil Count 4.8 X10^3/uL (2.0-7.7); Basophil# 0.03 X10^3/uL; Basophil% 0.4 % (0-1); Eosinophil# 0.09 X10^3/uL; Eosinophils% 1.3 % (0-5); Hematocrit 46.8 % (40-54); Hemoglobin 15.5 g/dL (13.0-16.5); Lymphocyte # 1.33 X10^3/ul (0.83-4.51); Lymphocyte % 19.1 % (19-41); Mean Corp Hgb Conc 33.1 g/dL (32-36); Mean Corpuscular Hgb 31.8 pg (27.0-32.0); Mean Corpuscular Volume 95.9 fL (80-94); Mean Platelet Vol. 10.8 fl (6.2-12.0); Monocyte# 0.68 X10^3/uL; Monocyte% 9.8 % (0-10); NRBC Flagged by Analyzer 0 % (0-5); Neutrophil # 4.81 X10^3/uL (2.7-7.7); Neutrophil % 69.1 % (47-70); Platelet Count 176 K/mm3 (150-450); RBC Distribution Width CV 14.4 % (11.6-14.6); RBC Distribution Width SD 51.1 fl (35.1-43.9); Red Blood Count 4.88 M/mm3 (4.6-6.2)
[2021-12-10 08:59] LABS: Anion Gap 6 (5-15); BUN 12 mg/dL (7-18); BUN/Creat Ratio 11.3 RATIO (10-20); Calcium,Total 8.9 mg/dL (8.5-10.1); Chloride 105 mmol/L (98-107); Creatinine, Serum 1.06 mg/dL (0.70-1.30); EST Glomerular Filtration Rate 71 mL/min (>60); Est Glom Filt Rate - Afr Amer 86 mL/min (>60); Glucose 103 mg/dL (74-106); Potassium 3.7 mmol/L (3.5-5.1); Sodium Level 141 mmol/L (136-145)
== END ==
LOC: OLS.WHLTSB 05:00
PROVIDERS: PCP Internal Medicine; Visit Provider Family Medicine
DX: I10 Essential (primary) hypertension (principal); K59.00 Constipation, unspecified; M62.81 Muscle weakness (generalized); N40.0 Benign prostatic hyperplasia without lower urinary tract symptoms; R26.2 Difficulty in walking, not elsewhere classified; R13.12 Dysphagia, oropharyngeal phase
CPT/HCPCS: 36415; 80048; 85025

== ENCOUNTER → 2021-12-24 | Outpatient (REF) | payer MEDICARE, OTHER, SELFPAY ==
[2021-12-24 07:44] LABS: Anion Gap 5 (5-15); BUN 15 mg/dL (7-18); BUN/Creat Ratio 14.7 RATIO (10-20); Calcium,Total 8.8 mg/dL (8.5-10.1); Chloride 109 mmol/L (98-107); Creatinine, Serum 1.02 mg/dL (0.70-1.30); EST Glomerular Filtration Rate 74 mL/min (>60); Est Glom Filt Rate - Afr Amer 90 mL/min (>60); Glucose 93 mg/dL (74-106); Sodium Level 140 mmol/L (136-145)
[2021-12-24 07:55] LABS: Absolute Neutrophil Count 4.8 X10^3/uL (2.0-7.7); Basophil# 0.03 X10^3/uL; Basophil% 0.4 % (0-1); Eosinophil# 0.11 X10^3/uL; Eosinophils% 1.5 % (0-5); Hematocrit 43.6 % (40-54); Hemoglobin 14.5 g/dL (13.0-16.5); Lymphocyte % 22.2 % (19-41); Mean Corp Hgb Conc 33.3 g/dL (32-36); Mean Corpuscular Hgb 32.3 pg (27.0-32.0); Mean Corpuscular Volume 97.1 fL (80-94); Mean Platelet Vol. 11.2 fl (6.2-12.0); Monocyte# 0.65 X10^3/uL; NRBC Flagged by Analyzer 0 % (0-5); Neutrophil % 66.8 % (47-70); Platelet Count 166 K/mm3 (150-450); RBC Distribution Width CV 14.4 % (11.6-14.6); RBC Distribution Width SD 51.8 fl (35.1-43.9); Red Blood Count 4.49 M/mm3 (4.6-6.2); White Blood Count 7.2 K/mm3 (4.4-11.0)
== END ==
LOC: OLS.WHLTSB 05:00
PROVIDERS: PCP Internal Medicine; Visit Provider Family Medicine
DX: I10 Essential (primary) hypertension (principal); K59.00 Constipation, unspecified; M62.81 Muscle weakness (generalized); N40.0 Benign prostatic hyperplasia without lower urinary tract symptoms; R00.1 Bradycardia, unspecified; R13.12 Dysphagia, oropharyngeal phase; R26.2 Difficulty in walking, not elsewhere classified
CPT/HCPCS: 36415; 80048; 85025

== ENCOUNTER → 2022-01-07 | Outpatient (REF) | payer MEDICARE, OTHER, SELFPAY ==
[2022-01-07 07:45] LABS: Anion Gap 8 (5-15); BUN 13 mg/dL (7-18); BUN/Creat Ratio 11.4 RATIO (10-20); Calcium,Total 8.8 mg/dL (8.5-10.1); Chloride 104 mmol/L (98-107); Creatinine, Serum 1.14 mg/dL (0.70-1.30); EST Glomerular Filtration Rate 65 mL/min (>60); Est Glom Filt Rate - Afr Amer 79 mL/min (>60); Glucose 89 mg/dL (74-106); Potassium 4.1 mmol/L (3.5-5.1); Sodium Level 141 mmol/L (136-145)
[2022-01-07 07:48] LABS: Absolute Lymphocyte Count 1.54 X10^3/uL (0.83-4.51); Absolute Neutrophil Count 4.8 X10^3/uL (2.0-7.7); Basophil# 0.02 X10^3/uL; Basophil% 0.3 % (0-1); Eosinophil# 0.14 X10^3/uL; Eosinophils% 1.9 % (0-5); Hematocrit 46.7 % (40-54); Hemoglobin 15.2 g/dL (13.0-16.5); Lymphocyte # 1.54 X10^3/ul (0.83-4.51); Lymphocyte % 21.3 % (19-41); Mean Corp Hgb Conc 32.5 g/dL (32-36); Mean Corpuscular Hgb 31.7 pg (27.0-32.0); Mean Corpuscular Volume 97.3 fL (80-94); Mean Platelet Vol. 11.2 fl (6.2-12.0); Monocyte% 9.7 % (0-10); NRBC Flagged by Analyzer 0 % (0-5); Neutrophil # 4.82 X10^3/uL (2.7-7.7); Neutrophil % 66.5 % (47-70); Platelet Count 192 K/mm3 (150-450); RBC Distribution Width CV 14.5 % (11.6-14.6); White Blood Count 7.2 K/mm3 (4.4-11.0)
== END ==
LOC: OLS.WHLTSB 05:00
PROVIDERS: PCP Internal Medicine; Visit Provider Family Medicine
DX: I10 Essential (primary) hypertension (principal); K59.00 Constipation, unspecified; M62.81 Muscle weakness (generalized); N40.0 Benign prostatic hyperplasia without lower urinary tract symptoms; R00.1 Bradycardia, unspecified; R13.12 Dysphagia, oropharyngeal phase; R26.2 Difficulty in walking, not elsewhere classified
CPT/HCPCS: 36415; 80048; 85025

== ENCOUNTER → 2022-04-01 | Outpatient (REF) | payer MEDICARE, OTHER, SELFPAY ==
[2022-04-01 08:22] LABS: Absolute Lymphocyte Count 1.25 X10^3/uL (0.83-4.51); Absolute Neutrophil Count 4.7 X10^3/uL (2.0-7.7); Basophil# 0.03 X10^3/uL; Basophil% 0.4 % (0-1); Eosinophils% 1.5 % (0-5); Hematocrit 45.5 % (40-54); Hemoglobin 14.8 g/dL (13.0-16.5); Lymphocyte # 1.25 X10^3/ul (0.83-4.51); Lymphocyte % 18.5 % (19-41); Mean Corp Hgb Conc 32.5 g/dL (32-36); Mean Corpuscular Hgb 31.6 pg (27.0-32.0); Mean Platelet Vol. 11.5 fl (6.2-12.0); Monocyte# 0.69 X10^3/uL; Monocyte% 10.2 % (0-10); NRBC Flagged by Analyzer 0 % (0-5); Neutrophil # 4.68 X10^3/uL (2.7-7.7); Neutrophil % 69.1 % (47-70); Platelet Count 167 K/mm3 (150-450); RBC Distribution Width CV 14.4 % (11.6-14.6); RBC Distribution Width SD 51.1 fl (35.1-43.9); Red Blood Count 4.69 M/mm3 (4.6-6.2); White Blood Count 6.8 K/mm3 (4.4-11.0)
[2022-04-01 09:04] LABS: Anion Gap 6 (5-15); BUN 13 mg/dL (7-18); Calcium,Total 9.1 mg/dL (8.5-10.1); Chloride 108 mmol/L (98-107); EST Glomerular Filtration Rate 76 mL/min (>60); Est Glom Filt Rate - Afr Amer 92 mL/min (>60); Glucose 106 mg/dL (74-106); Potassium 3.6 mmol/L (3.5-5.1); Sodium Level 143 mmol/L (136-145)
== END ==
LOC: OLS.WHLTSB 05:00
PROVIDERS: PCP Internal Medicine; Visit Provider Internal Medicine
DX: I10 Essential (primary) hypertension (principal); K59.00 Constipation, unspecified; M62.81 Muscle weakness (generalized); N40.0 Benign prostatic hyperplasia without lower urinary tract symptoms; R00.1 Bradycardia, unspecified; R13.12 Dysphagia, oropharyngeal phase; R26.2 Difficulty in walking, not elsewhere classified
CPT/HCPCS: 36415; 80048; 85025

== ENCOUNTER → 2022-06-29 | Outpatient (REF) | payer MEDICARE, OTHER, SELFPAY ==
[2022-06-29 07:39] LABS: Absolute Lymphocyte Count 1.43 X10^3/uL (0.83-4.51); Absolute Neutrophil Count 4.4 X10^3/uL (2.0-7.7); Basophil# 0.04 X10^3/uL; Basophil% 0.6 % (0-1); Eosinophils% 1.5 % (0-5); Hemoglobin 14.5 g/dL (13.0-16.5); Lymphocyte # 1.43 X10^3/ul (0.83-4.51); Lymphocyte % 21.5 % (19-41); Mean Corp Hgb Conc 32.2 g/dL (32-36); Mean Corpuscular Hgb 31.9 pg (27.0-32.0); Mean Corpuscular Volume 98.9 fL (80-94); Mean Platelet Vol. 11.2 fl (6.2-12.0); Monocyte# 0.71 X10^3/uL; Monocyte% 10.7 % (0-10); NRBC Flagged by Analyzer 0 % (0-5); Neutrophil # 4.35 X10^3/uL (2.7-7.7); Neutrophil % 65.4 % (47-70); Platelet Count 161 K/mm3 (150-450); RBC Distribution Width CV 14.3 % (11.6-14.6); RBC Distribution Width SD 51.6 fl (35.1-43.9); Red Blood Count 4.55 M/mm3 (4.6-6.2); White Blood Count 6.7 K/mm3 (4.4-11.0)
[2022-06-29 07:52] LABS: Anion Gap 3 (5-15); BUN 14 mg/dL (7-18); BUN/Creat Ratio 13.6 RATIO (10-20); Calcium,Total 8.7 mg/dL (8.5-10.1); Chloride 107 mmol/L (98-107); Creatinine, Serum 1.03 mg/dL (0.70-1.30); EST Glomerular Filtration Rate 73 mL/min (>60); Est Glom Filt Rate - Afr Amer 89 mL/min (>60); Glucose 85 mg/dL (74-106); Potassium 3.6 mmol/L (3.5-5.1); Sodium Level 140 mmol/L (136-145)
== END ==
LOC: OLS.WHLTSB 05:00
PROVIDERS: PCP Internal Medicine; Visit Provider Internal Medicine
DX: I10 Essential (primary) hypertension (principal)
CPT/HCPCS: 36415; 80048; 85025

== ENCOUNTER → 2022-09-29 | Outpatient (REF) | payer MEDICARE, OTHER, SELFPAY ==
[2022-09-29 09:48] LABS: Absolute Lymphocyte Count 1.19 X10^3/uL (0.83-4.51); Absolute Neutrophil Count 8.4 X10^3/uL (2.0-7.7); Basophil# 0.02 X10^3/uL; Basophil% 0.2 % (0-1); Eosinophil# 0.01 X10^3/uL; Eosinophils% 0.1 % (0-5); Hematocrit 45.9 % (40-54); Hemoglobin 14.6 g/dL (13.0-16.5); Lymphocyte # 1.19 X10^3/ul (0.83-4.51); Lymphocyte % 11.5 % (19-41); Mean Corp Hgb Conc 31.8 g/dL (32-36); Mean Corpuscular Hgb 31.6 pg (27.0-32.0); Mean Corpuscular Volume 99.4 fL (80-94); Mean Platelet Vol. 11.5 fl (6.2-12.0); Monocyte# 0.76 X10^3/uL; Monocyte% 7.3 % (0-10); NRBC Flagged by Analyzer 0 % (0-5); Neutrophil # 8.35 X10^3/uL (2.7-7.7); Neutrophil % 80.3 % (47-70); Platelet Count 185 K/mm3 (150-450); RBC Distribution Width CV 14.2 % (11.6-14.6); RBC Distribution Width SD 51.7 fl (35.1-43.9); Red Blood Count 4.62 M/mm3 (4.6-6.2); White Blood Count 10.4 K/mm3 (4.4-11.0)
[2022-09-29 10:03] LABS: Anion Gap 4 (5-15); BUN 13 mg/dL (7-18); BUN/Creat Ratio 13.8 RATIO (10-20); Calcium,Total 8.9 mg/dL (8.5-10.1); Chloride 109 mmol/L (98-107); Creatinine, Serum 0.94 mg/dL (0.70-1.30); EST Glomerular Filtration Rate 81 mL/min (>60); Est Glom Filt Rate - Afr Amer 98 mL/min (>60); Glucose 100 mg/dL (74-106); Sodium Level 141 mmol/L (136-145)
== END ==
LOC: OLS.WHLTSB 05:00
PROVIDERS: PCP Internal Medicine; Visit Provider Internal Medicine
DX: I10 Essential (primary) hypertension (principal)
CPT/HCPCS: 36415; 80048; 85025

== ENCOUNTER → 2022-12-30 | Outpatient (REF) | payer MEDICARE, OTHER, SELFPAY ==
[2022-12-30 08:49] LABS: Absolute Lymphocyte Count 1.16 X10^3/uL (0.83-4.51); Absolute Neutrophil Count 5.4 X10^3/uL (2.0-7.7); Basophil# 0.03 X10^3/uL; Basophil% 0.4 % (0-1); Eosinophils% 1.3 % (0-5); Hematocrit 41.3 % (40-54); Lymphocyte # 1.16 X10^3/ul (0.83-4.51); Lymphocyte % 15.6 % (19-41); Mean Corp Hgb Conc 31.5 g/dL (32-36); Mean Corpuscular Hgb 31.3 pg (27.0-32.0); Mean Corpuscular Volume 99.5 fL (80-94); Mean Platelet Vol. 11.6 fl (6.2-12.0); Monocyte# 0.71 X10^3/uL; Monocyte% 9.6 % (0-10); NRBC Flagged by Analyzer 0 % (0-5); Neutrophil % 72.7 % (47-70); Platelet Count 165 K/mm3 (150-450); RBC Distribution Width CV 14.2 % (11.6-14.6); RBC Distribution Width SD 51.5 fl (35.1-43.9); Red Blood Count 4.15 M/mm3 (4.6-6.2); White Blood Count 7.4 K/mm3 (4.4-11.0)
[2022-12-30 09:19] LABS: Anion Gap 6 (5-15); BUN 10 mg/dL (7-18); BUN/Creat Ratio 11.6 RATIO (10-20); Calcium,Total 8.3 mg/dL (8.5-10.1); Chloride 109 mmol/L (98-107); Creatinine, Serum 0.86 mg/dL (0.70-1.30); EST Glomerular Filtration Rate 90 mL/min (>60); Est Glom Filt Rate - Afr Amer 108 mL/min (>60); Glucose 84 mg/dL (74-106); Potassium 3.6 mmol/L (3.5-5.1); Sodium Level 142 mmol/L (136-145)
== END ==
LOC: OLS.WHLTSB 05:00
PROVIDERS: PCP Internal Medicine; Visit Provider Internal Medicine
DX: I10 Essential (primary) hypertension (principal); K59.00 Constipation, unspecified; M62.81 Muscle weakness (generalized)
CPT/HCPCS: 36415; 80048; 85025

== ENCOUNTER → 2023-04-06 | Outpatient (REF) | payer MEDICARE, OTHER, SELFPAY ==
[2023-04-06 09:59] LABS: Absolute Lymphocyte Count 1.24 X10^3/uL (0.83-4.51); Absolute Neutrophil Count 4.6 X10^3/uL (2.0-7.7); Basophil# 0.03 X10^3/uL; Basophil% 0.5 % (0-1); Eosinophil# 0.11 X10^3/uL; Eosinophils% 1.7 % (0-5); Hematocrit 49.2 % (40-54); Hemoglobin 15.4 g/dL (13.0-16.5); Lymphocyte # 1.24 X10^3/ul (0.83-4.51); Lymphocyte % 18.7 % (19-41); Mean Corp Hgb Conc 31.3 g/dL (32-36); Mean Corpuscular Hgb 30.7 pg (27.0-32.0); Mean Corpuscular Volume 98.2 fL (80-94); Mean Platelet Vol. 11.5 fl (6.2-12.0); Monocyte# 0.62 X10^3/uL; Monocyte% 9.4 % (0-10); NRBC Flagged by Analyzer 0 % (0-5); Neutrophil % 69.2 % (47-70); Platelet Count 189 K/mm3 (150-450); RBC Distribution Width CV 14.4 % (11.6-14.6); RBC Distribution Width SD 51.7 fl (35.1-43.9); Red Blood Count 5.01 M/mm3 (4.6-6.2); White Blood Count 6.6 K/mm3 (4.4-11.0)
[2023-04-06 10:29] LABS: Anion Gap 5 (5-15); BUN 16 mg/dL (7-18); Calcium,Total 9.1 mg/dL (8.5-10.1); Chloride 109 mmol/L (98-107); Creatinine, Serum 1.07 mg/dL (0.70-1.30); EST Glomerular Filtration Rate 70 mL/min (>60); Est Glom Filt Rate - Afr Amer 85 mL/min (>60); Glucose 90 mg/dL (74-106); Potassium 3.7 mmol/L (3.5-5.1); Sodium Level 141 mmol/L (136-145)
== END ==
LOC: OLS.WHLTSB 05:00
PROVIDERS: PCP Internal Medicine; Visit Provider Internal Medicine
DX: I10 Essential (primary) hypertension (principal); G30.9 Alzheimer's disease, unspecified
CPT/HCPCS: 36415; 80048; 85025

== ENCOUNTER → 2023-07-06 | Outpatient (REF) | payer MEDICARE, OTHER, SELFPAY ==
[2023-07-06 08:13] LABS: Absolute Lymphocyte Count 1.04 X10^3/uL (0.83-4.51); Absolute Neutrophil Count 4.5 X10^3/uL (2.0-7.7); Basophil# 0.03 X10^3/uL; Basophil% 0.5 % (0-1); Eosinophil# 0.11 X10^3/uL; Eosinophils% 1.7 % (0-5); Hematocrit 44.8 % (40-54); Hemoglobin 14.1 g/dL (13.0-16.5); Lymphocyte # 1.04 X10^3/ul (0.83-4.51); Lymphocyte % 16.4 % (19-41); Mean Corp Hgb Conc 31.5 g/dL (32-36); Mean Corpuscular Hgb 30.6 pg (27.0-32.0); Mean Corpuscular Volume 97.2 fL (80-94); Mean Platelet Vol. 11.5 fl (6.2-12.0); Monocyte# 0.59 X10^3/uL; Monocyte% 9.3 % (0-10); NRBC Flagged by Analyzer 0 % (0-5); Neutrophil # 4.54 X10^3/uL (2.7-7.7); Neutrophil % 71.6 % (47-70); Platelet Count 185 K/mm3 (150-450); RBC Distribution Width CV 14.6 % (11.6-14.6); RBC Distribution Width SD 52.9 fl (35.1-43.9); Red Blood Count 4.61 M/mm3 (4.6-6.2); White Blood Count 6.3 K/mm3 (4.4-11.0)
[2023-07-06 08:38] LABS: Anion Gap 5 (5-15); BUN 11 mg/dL (7-18); BUN/Creat Ratio 11.4 RATIO (10-20); Calcium,Total 8.9 mg/dL (8.5-10.1); Chloride 108 mmol/L (98-107); Creatinine, Serum 0.96 mg/dL (0.70-1.30); EST Glomerular Filtration Rate 79 mL/min (>60); Est Glom Filt Rate - Afr Amer 95 mL/min (>60); Glucose 95 mg/dL (74-106); Potassium 3.8 mmol/L (3.5-5.1); Sodium Level 141 mmol/L (136-145)
== END ==
LOC: OLS.WHLTSB 05:00
PROVIDERS: PCP Internal Medicine; Visit Provider Internal Medicine
DX: I10 Essential (primary) hypertension (principal)
CPT/HCPCS: 36415; 80048; 85025

== ENCOUNTER → 2023-07-23 | Outpatient (REF) | payer MEDICARE, OTHER, SELFPAY ==
[2023-07-23 09:18] LABS: Absolute Lymphocyte Count 0.98 X10^3/uL (0.83-4.51); Absolute Neutrophil Count 4.5 X10^3/uL (2.0-7.7); Basophil# 0.04 X10^3/uL; Basophil% 0.6 % (0-1); Eosinophil# 0.09 X10^3/uL; Eosinophils% 1.4 % (0-5); Hematocrit 48.3 % (40-54); Hemoglobin 15.3 g/dL (13.0-16.5); Lymphocyte # 0.98 X10^3/ul (0.83-4.51); Lymphocyte % 15.7 % (19-41); Mean Corp Hgb Conc 31.7 g/dL (32-36); Mean Corpuscular Hgb 31.1 pg (27.0-32.0); Mean Corpuscular Volume 98.2 fL (80-94); Mean Platelet Vol. 11.9 fl (6.2-12.0); Monocyte# 0.59 X10^3/uL; Monocyte% 9.4 % (0-10); NRBC Flagged by Analyzer 0 % (0-5); Neutrophil # 4.54 X10^3/uL (2.7-7.7); Neutrophil % 72.7 % (47-70); Platelet Count 177 K/mm3 (150-450); RBC Distribution Width CV 14.5 % (11.6-14.6); RBC Distribution Width SD 52.1 fl (35.1-43.9); Red Blood Count 4.92 M/mm3 (4.6-6.2); White Blood Count 6.3 K/mm3 (4.4-11.0)
[2023-07-23 09:56] LABS: Anion Gap 5 (5-15); BUN 10 mg/dL (7-18); BUN/Creat Ratio 9.5 RATIO (10-20); Calcium,Total 9.1 mg/dL (8.5-10.1); Chloride 106 mmol/L (98-107); Creatinine, Serum 1.05 mg/dL (0.70-1.30); EST Glomerular Filtration Rate 72 mL/min (>60); Est Glom Filt Rate - Afr Amer 87 mL/min (>60); Glucose 99 mg/dL (74-106); Potassium 3.8 mmol/L (3.5-5.1); Sodium Level 139 mmol/L (136-145); Thyroid Stim Hormone (TSH) 2.61 uIU/mL (0.358-3.74)
== END ==
LOC: OLS.WHLTSB 05:00
PROVIDERS: PCP Internal Medicine; Visit Provider Internal Medicine
DX: G30.9 Alzheimer's disease, unspecified (principal); Z79.899 Other long term (current) drug therapy
CPT/HCPCS: 36415; 80048; 84443; 85025

== ENCOUNTER → 2023-09-27 | Outpatient (REF) | payer MEDICARE, OTHER, SELFPAY ==
[2023-09-27 09:52] LABS: Anion Gap 5 (5-15); BUN 11 mg/dL (7-18); BUN/Creat Ratio 10.9 RATIO (10-20); Chloride 112 mmol/L (98-107); Creatinine, Serum 1.01 mg/dL (0.70-1.30); EST Glomerular Filtration Rate 75 mL/min (>60); Est Glom Filt Rate - Afr Amer 90 mL/min (>60); Glucose 111 mg/dL (74-106); Potassium 3.7 mmol/L (3.5-5.1); Sodium Level 145 mmol/L (136-145)
== END ==
LOC: OLS.WHLTSB 05:00
PROVIDERS: PCP Internal Medicine; Visit Provider Internal Medicine
DX: I10 Essential (primary) hypertension (principal); G30.9 Alzheimer's disease, unspecified
CPT/HCPCS: 36415; 80048

== ENCOUNTER → 2023-10-05 | Outpatient (REF) | payer MEDICARE, OTHER, SELFPAY ==
[2023-10-05 10:55] LABS: Absolute Lymphocyte Count 1.26 X10^3/uL (0.83-4.51); Absolute Neutrophil Count 4.5 X10^3/uL (2.0-7.7); Basophil# 0.04 X10^3/uL; Basophil% 0.6 % (0-1); Eosinophil# 0.16 X10^3/uL; Eosinophils% 2.4 % (0-5); Hematocrit 48.7 % (40-54); Hemoglobin 15.3 g/dL (13.0-16.5); Lymphocyte # 1.26 X10^3/ul (0.83-4.51); Lymphocyte % 18.8 % (19-41); Mean Corp Hgb Conc 31.4 g/dL (32-36); Mean Corpuscular Hgb 31.5 pg (27.0-32.0); Mean Corpuscular Volume 100.2 fL (80-94); Mean Platelet Vol. 11.6 fl (6.2-12.0); Monocyte# 0.71 X10^3/uL; Monocyte% 10.6 % (0-10); NRBC Flagged by Analyzer 0 % (0-5); Neutrophil # 4.49 X10^3/uL (2.7-7.7); Neutrophil % 67.2 % (47-70); Platelet Count 177 K/mm3 (150-450); RBC Distribution Width CV 14.7 % (11.6-14.6); RBC Distribution Width SD 54.7 fl (35.1-43.9); Red Blood Count 4.86 M/mm3 (4.6-6.2); White Blood Count 6.7 K/mm3 (4.4-11.0)
[2023-10-05 11:06] LABS: Anion Gap 6 (5-15); BUN 11 mg/dL (7-18); BUN/Creat Ratio 11.2 RATIO (10-20); Calcium,Total 8.9 mg/dL (8.5-10.1); Chloride 106 mmol/L (98-107); Creatinine, Serum 0.98 mg/dL (0.70-1.30); EST Glomerular Filtration Rate 77 mL/min (>60); Est Glom Filt Rate - Afr Amer 93 mL/min (>60); Glucose 79 mg/dL (74-106); Potassium 3.7 mmol/L (3.5-5.1); Sodium Level 141 mmol/L (136-145)
== END ==
LOC: OLS.WHLTSB 05:00
PROVIDERS: PCP Internal Medicine; Visit Provider Internal Medicine
DX: I10 Essential (primary) hypertension (principal)
CPT/HCPCS: 36415; 80048; 85025

== ENCOUNTER → 2024-01-04 05:00 | Outpatient (REF) | payer MEDICARE, OTHER, SELFPAY ==
[2024-01-04 08:50] LABS: Absolute Lymphocyte Count 1.16 X10^3/uL (0.83-4.51); Absolute Neutrophil Count 3.8 X10^3/uL (2.0-7.7); Basophil# 0.05 X10^3/uL; Basophil% 0.9 % (0-1); Eosinophil# 0.12 X10^3/uL; Eosinophils% 2.1 % (0-5); Hematocrit 45.7 % (40-54); Hemoglobin 14.8 g/dL (13.0-16.5); Lymphocyte # 1.16 X10^3/ul (0.83-4.51); Lymphocyte % 20.4 % (19-41); Mean Corp Hgb Conc 32.4 g/dL (32-36); Mean Corpuscular Hgb 31.9 pg (27.0-32.0); Mean Corpuscular Volume 98.5 fL (80-94); Mean Platelet Vol. 11.6 fl (6.2-12.0); Monocyte# 0.57 X10^3/uL; NRBC Flagged by Analyzer 0 % (0-5); Neutrophil # 3.78 X10^3/uL (2.7-7.7); Neutrophil % 66.2 % (47-70); Platelet Count 171 K/mm3 (150-450); RBC Distribution Width CV 14.4 % (11.6-14.6); Red Blood Count 4.64 M/mm3 (4.6-6.2); White Blood Count 5.7 K/mm3 (4.4-11.0)
[2024-01-04 09:15] LABS: Anion Gap 7 (5-15); BUN 12 mg/dL (7-18); BUN/Creat Ratio 12.3 RATIO (10-20); Calcium,Total 8.6 mg/dL (8.5-10.1); Chloride 108 mmol/L (98-107); Creatinine, Serum 0.97 mg/dL (0.70-1.30); EST Glomerular Filtration Rate 78 mL/min (>60); Est Glom Filt Rate - Afr Amer 94 mL/min (>60); Glucose 91 mg/dL (74-106); Potassium 3.8 mmol/L (3.5-5.1); Sodium Level 142 mmol/L (136-145)
== END ==
LOC: OLS.WHLTSB 05:00
PROVIDERS: PCP Internal Medicine; Visit Provider Internal Medicine
DX: I10 Essential (primary) hypertension (principal); G30.9 Alzheimer's disease, unspecified; M62.50 Muscle wasting and atrophy, not elsewhere classified, unspecified site
CPT/HCPCS: 36415; 80048; 85025

== ENCOUNTER → 2024-02-03 15:00 | Outpatient (REF) | payer MEDICARE, OTHER, SELFPAY ==
[2024-02-04 07:17] LABS: Bacteria 0 SEEN /hpf (None Seen); Squamous Epithelial Cells - UA 0 SEEN /hpf (0-5)
[2024-02-04 07:27] LABS: Color, Urine Yellow (Yellow); Glucose, Dipstick Normal (Normal); Ketone-Dipstick Negative (Negative); Leukocyte Esterase-Dipstick 25 /ul (Negative); Nitrite-Dipstick Negative (Negative); Occult Blood-Urine 250 /ul (Negative); Protein-Dipstick 30 mg/dl (Negative); Specific Gravity, Urine 1.025 (1.002-1.030); Urine Bilirubin Dipstick Negative (Negative); Urine Clarity Sl. Cloudy (Clear); Urine Urobilinogen Normal (Normal)
[2024-02-04 07:43] LABS: Mucous, Urine 1+ /hpf (<or=2+); Red Blood Cells-Urine > 100 SEEN /hpf (0-5)
[2024-02-04 07:44] LABS: White Blood Cells 0-5 SEEN /hpf (0-5)
== END ==
LOC: OLS.WHLTSB 15:00
PROVIDERS: PCP Internal Medicine; Visit Provider Internal Medicine
DX: R30.0 Dysuria (principal)
CPT/HCPCS: 81001; 87086; 87088

== ENCOUNTER → 2024-04-04 05:00 | Outpatient (REF) | payer MEDICARE, OTHER, SELFPAY ==
[2024-04-04 08:36] LABS: Absolute Lymphocyte Count 0.82 X10^3/uL (0.83-4.51); Absolute Neutrophil Count 11.6 X10^3/uL (2.0-7.7); Basophil# 0.03 X10^3/uL; Basophil% 0.2 % (0-1); Hematocrit 49.2 % (40-54); Hemoglobin 15.9 g/dL (13.0-16.5); Lymphocyte # 0.82 X10^3/ul (0.83-4.51); Lymphocyte % 5.9 % (19-41); Mean Corp Hgb Conc 32.3 g/dL (32-36); Mean Corpuscular Hgb 31.8 pg (27.0-32.0); Mean Corpuscular Volume 98.4 fL (80-94); Mean Platelet Vol. 12.5 fl (6.2-12.0); Monocyte# 1.38 X10^3/uL; Monocyte% 9.9 % (0-10); NRBC Flagged by Analyzer 0 % (0-5); Neutrophil # 11.63 X10^3/uL (2.7-7.7); Neutrophil % 83.5 % (47-70); Platelet Count 209 K/mm3 (150-450); RBC Distribution Width CV 15.2 % (11.6-14.6); RBC Distribution Width SD 55.2 fl (35.1-43.9); White Blood Count 13.9 K/mm3 (4.4-11.0)
[2024-04-04 09:09] LABS: Anion Gap 8 (5-15); BUN 17 mg/dL (7-18); BUN/Creat Ratio 9.6 RATIO (10-20); Calcium,Total 9.6 mg/dL (8.5-10.1); Chloride 105 mmol/L (98-107); Creatinine, Serum 1.77 mg/dL (0.70-1.30); EST Glomerular Filtration Rate 39 mL/min (>60); Est Glom Filt Rate - Afr Amer 47 mL/min (>60); Glucose 119 mg/dL (74-106); Potassium 4.2 mmol/L (3.5-5.1); Sodium Level 139 mmol/L (136-145)
== END ==
LOC: OLS.WHLTSB 05:00
PROVIDERS: PCP Internal Medicine; Visit Provider Internal Medicine
DX: I10 Essential (primary) hypertension (principal)
CPT/HCPCS: 36415; 80048; 85025

== ENCOUNTER → 2024-04-07 04:00 | Outpatient (REF) | payer MEDICARE, OTHER, SELFPAY ==
[2024-04-07 08:53] LABS: Anion Gap 9 (5-15); BUN 20 mg/dL (7-18); BUN/Creat Ratio 15.7 RATIO (10-20); Calcium,Total 8.9 mg/dL (8.5-10.1); Chloride 107 mmol/L (98-107); Creatinine, Serum 1.27 mg/dL (0.70-1.30); EST Glomerular Filtration Rate 57 mL/min (>60); Est Glom Filt Rate - Afr Amer 69 mL/min (>60); Glucose 80 mg/dL (74-106); Potassium 3.8 mmol/L (3.5-5.1); Sodium Level 143 mmol/L (136-145); Uric Acid 7.7 mg/dL (3.5-7.2)
== END ==
LOC: OLS.WHLTSB 04:00
PROVIDERS: PCP Internal Medicine; Referring Provider Internal Medicine; Visit Provider Internal Medicine
DX: R30.0 Dysuria (principal)
CPT/HCPCS: 36415; 80048; 84550

== ENCOUNTER → 2024-04-07 10:45 | Outpatient (REF) | payer MEDICARE, OTHER, SELFPAY ==
[2024-04-07 13:04] LABS: Color, Urine Straw (Yellow); Glucose, Dipstick Normal (Normal); Ketone-Dipstick Negative (Negative); Leukocyte Esterase-Dipstick 25 /ul (Negative); Nitrite-Dipstick Negative (Negative); Occult Blood-Urine 250 /ul (Negative); Protein-Dipstick 30 mg/dl (Negative); Specific Gravity, Urine 1.005 (1.002-1.030); Urine Bilirubin Dipstick Negative (Negative); Urine Clarity Clear (Clear); Urine Urobilinogen Normal (Normal); Urine pH 6.5 (5.0 - 8.0)
== END ==
LOC: OLS.WHLTSB 10:45
PROVIDERS: PCP Internal Medicine; Referring Provider Internal Medicine; Visit Provider Internal Medicine
DX: R30.0 Dysuria (principal)
CPT/HCPCS: 36415; 80048; 81002; 84550; 87086; 87088

== ENCOUNTER → 2024-04-13 05:00 | Outpatient (REF) | payer MEDICARE, OTHER, SELFPAY ==
[2024-04-13 07:07] LABS: Absolute Lymphocyte Count 0.98 X10^3/uL (0.83-4.51); Basophil# 0.02 X10^3/uL; Basophil% 0.2 % (0-1); Eosinophil# 0.11 X10^3/uL; Eosinophils% 1.2 % (0-5); Hematocrit 47.5 % (40-54); Hemoglobin 15.1 g/dL (13.0-16.5); Lymphocyte # 0.98 X10^3/ul (0.83-4.51); Mean Corp Hgb Conc 31.8 g/dL (32-36); Mean Corpuscular Hgb 31.3 pg (27.0-32.0); Mean Corpuscular Volume 98.3 fL (80-94); Mean Platelet Vol. 12.2 fl (6.2-12.0); Monocyte# 0.83 X10^3/uL; Monocyte% 9.3 % (0-10); NRBC Flagged by Analyzer 0 % (0-5); Neutrophil # 6.96 X10^3/uL (2.7-7.7); Platelet Count 160 K/mm3 (150-450); RBC Distribution Width CV 14.6 % (11.6-14.6); RBC Distribution Width SD 52.6 fl (35.1-43.9); Red Blood Count 4.83 M/mm3 (4.6-6.2); White Blood Count 8.9 K/mm3 (4.4-11.0)
[2024-04-13 07:13] LABS: Uric Acid 7.3 mg/dL (3.5-7.2)
== END ==
LOC: OLS.WHLTSB 05:00
PROVIDERS: PCP Internal Medicine; Visit Provider Internal Medicine
DX: G30.9 Alzheimer's disease, unspecified (principal); R19.7 Diarrhea, unspecified; R30.0 Dysuria; Z95.0 Presence of cardiac pacemaker; I49.5 Sick sinus syndrome; M62.561 Muscle wasting and atrophy, not elsewhere classified, right lower leg; M62.562 Muscle wasting and atrophy, not elsewhere classified, left lower leg; R60.9 Edema, unspecified
CPT/HCPCS: 36415; 84550; 85025

== ENCOUNTER → 2024-04-17 07:00 | Outpatient (REF) | payer MEDICARE, OTHER, SELFPAY ==
[2024-04-18 08:02] LABS: Color, Urine Amber (Yellow); Glucose, Dipstick Normal (Normal); Ketone-Dipstick 5 mg/dl (Negative); Leukocyte Esterase-Dipstick 100 /ul (Negative); Nitrite-Dipstick Negative (Negative); Occult Blood-Urine 250 /ul (Negative); Protein-Dipstick 100 mg/dl (Negative); Specific Gravity, Urine 1.025 (1.002-1.030); Urine Clarity Turbid (Clear); Urine Urobilinogen Normal (Normal)
[2024-04-18 08:04] LABS: Urine Bilirubin Dipstick 1 mg/dL (Negative)
== END ==
LOC: OLS.WHLTSB 07:00
PROVIDERS: PCP Internal Medicine; Visit Provider Internal Medicine
DX: G30.9 Alzheimer's disease, unspecified (principal); N39.0 Urinary tract infection, site not specified; R19.7 Diarrhea, unspecified; R30.0 Dysuria; Z95.0 Presence of cardiac pacemaker; I49.5 Sick sinus syndrome; M62.561 Muscle wasting and atrophy, not elsewhere classified, right lower leg
CPT/HCPCS: 81002; 87077; 87086; 87088; 87186

== ENCOUNTER → 2024-05-22 | Outpatient (REF) | payer MEDICARE, OTHER, SELFPAY ==
[2024-05-22 08:59] LABS: Absolute Lymphocyte Count 1.26 X10^3/uL (0.83-4.51); Absolute Neutrophil Count 6.5 X10^3/uL (2.0-7.7); Basophil# 0.04 X10^3/uL; Basophil% 0.4 % (0-1); Eosinophil# 0.09 X10^3/uL; Hematocrit 40.5 % (40-54); Hemoglobin 12.9 g/dL (13.0-16.5); Lymphocyte # 1.26 X10^3/ul (0.83-4.51); Mean Corp Hgb Conc 31.9 g/dL (32-36); Mean Corpuscular Hgb 31.6 pg (27.0-32.0); Mean Corpuscular Volume 99.3 fL (80-94); Mean Platelet Vol. 12.1 fl (6.2-12.0); Monocyte# 1.06 X10^3/uL; Monocyte% 11.8 % (0-10); NRBC Flagged by Analyzer 0 % (0-5); Neutrophil # 6.54 X10^3/uL (2.7-7.7); Neutrophil % 72.5 % (47-70); Platelet Count 179 K/mm3 (150-450); RBC Distribution Width CV 15.1 % (11.6-14.6); RBC Distribution Width SD 54.3 fl (35.1-43.9); Red Blood Count 4.08 M/mm3 (4.6-6.2)
[2024-05-22 14:44] LABS: ALB/GLOB Ratio 1.1 RATIO (0.9-2.4); AST(SGOT) 33 U/L (<=37); Alanine Aminotransfer ALT/SGPT 8 U/L (<=46); Albumin, Serum 3.5 g/dL (3.4-4.8); Alkaline Phosphatase 71 U/L (40-129); Anion Gap 13 (5-15); BUN 15 mg/dL (4-19); BUN/Creat Ratio 7.8 RATIO (10-20); Calcium,Total 8.8 mg/dL (7.6-11.0); Carbon Dioxide 24.8 mmol/L (21.0-32.0); Chloride 104 mmol/L (98-108); Creatinine, Serum 1.94 mg/dL (0.70-1.20); EST Glomerular Filtration Rate 33 (>60); Globulin 3.2 g/dL (2.2-4.2); Glucose 112 mg/dL (70-99); Potassium 3.3 mmol/L (3.3-5.1); Protein, Total 6.7 g/dL (5.9-8.4); Sodium Level 141 mmol/L (133-145); Total Bilirubin 0.44 mg/dL (0.00-1.30)
== END ==
LOC: OLS.WHLCAR 05:00
PROVIDERS: PCP Internal Medicine; Visit Provider Internal Medicine
DX: G30.9 Alzheimer's disease, unspecified (principal); R13.11 Dysphagia, oral phase; I48.20 Chronic atrial fibrillation, unspecified
CPT/HCPCS: 36415; 80053; 85025

== ENCOUNTER → 2024-05-30 | Outpatient (CLI) | payer MEDICARE, OTHER, SELFPAY ==
--- NOTE | 2024-05-30 09:02 | ART_ITS ---
Reason For Study Reason For Study: COLD FEET, DECREASED PEDAL PULSES Procedure A bilateral lower extremity continuous wave Doppler with analog waveform analysis and ankle brachial indexes. Left Segmental Pressures Left brachial= 110mmHg. Left posterior tibial artery = 153mmHg. Left dorsalis pedis artery = 148mmHg. Left digit = 126 mmHg. The left posterior tibial artery waveforms are triphasic. The left dorsalis pedis waveforms are triphasic. Right Segmental Pressures Right brachial= 110mmHg. Right posterior tibial artery = 143mmHg. Right dorsalis pedis artery = 161mmHg. Right digit = 85 mmHg. The right posterior tibial artery waveforms are biphasic. The right dorsalis pedis waveforms are triphasic. Indices The right resting ankle brachial index is 1.46. The right ankle brachial index by the posterior tibial artery is 1.30. The right ankle brachial index by the dorsalis pedis is 1.46. The right digital- brachial index is 0.77. The left resting ankle brachial index is 1.39. The left ankle brachial index by the posterior tibial artery is 1.39. The left ankle brachial index by the dorsalis pedis is 1.35. The left digital-brachial index is 1.15. VL/Ankle Brachial Index Interpretation Summary Right RAINA 1.46, normal. Doppler/PVR waveforms of the right ankle normal at rest . TBI diminished, pedal/digit disease vs spasm. Left RAINA 1.39, normal. TBI and Doppler/PVR waveforms of the left ankle normal a t rest. Ordering Physician: Kulwinder^David^^^ Referring Physician: DAVID GREGORIO MD Performed By: Yasmine May RVT, RDCS
== END | disposition home or self-care (01) ==
LOC: CVS 08:36
PROVIDERS: PCP Internal Medicine; Referring Provider Internal Medicine; Visit Provider Internal Medicine
DX: I73.89 Other specified peripheral vascular diseases (principal)
CPT/HCPCS: 93922

== ENCOUNTER → 2024-05-30 | Outpatient (REF) | payer MEDICARE, OTHER, SELFPAY ==
[2024-05-30 09:20] LABS: PSA,Total - Annual Screen 3.08 ng/mL (0.02-4.00)
== END ==
LOC: OLS.WHLCAR 05:00
PROVIDERS: PCP Internal Medicine; Visit Provider Internal Medicine
DX: R31.9 Hematuria, unspecified (principal); Z12.5 Encounter for screening for malignant neoplasm of prostate
CPT/HCPCS: 36415; 84153; G0103

== ENCOUNTER → 2024-06-05 | Outpatient (REF) | payer MEDICARE, OTHER, SELFPAY ==
[2024-06-05 09:32] LABS: Absolute Lymphocyte Count 1.05 X10^3/uL (0.83-4.51); Absolute Neutrophil Count 4.8 X10^3/uL (2.0-7.7); Basophil# 0.07 X10^3/uL; Basophil% 1.1 % (0-1); Eosinophil# 0.15 X10^3/uL; Eosinophils% 2.3 % (0-5); Hematocrit 41.8 % (40-54); Hemoglobin 13.3 g/dL (13.0-16.5); Lymphocyte # 1.05 X10^3/ul (0.83-4.51); Lymphocyte % 15.8 % (19-41); Mean Corp Hgb Conc 31.8 g/dL (32-36); Mean Corpuscular Volume 100.5 fL (80-94); Mean Platelet Vol. 11.3 fl (6.2-12.0); Monocyte# 0.59 X10^3/uL; Monocyte% 8.9 % (0-10); NRBC Flagged by Analyzer 0 % (0-5); Neutrophil # 4.75 X10^3/uL (2.7-7.7); Neutrophil % 71.6 % (47-70); Platelet Count 216 K/mm3 (150-450); RBC Distribution Width SD 55.4 fl (35.1-43.9); Red Blood Count 4.16 M/mm3 (4.6-6.2); White Blood Count 6.6 K/mm3 (4.4-11.0)
[2024-06-05 09:53] LABS: Anion Gap 11 (5-15); BUN 13 mg/dL (4-19); BUN/Creat Ratio 9.3 RATIO (10-20); Carbon Dioxide 26.8 mmol/L (21.0-32.0); Chloride 101 mmol/L (98-108); Creatinine, Serum 1.42 mg/dL (0.70-1.20); EST Glomerular Filtration Rate 48 (>60); Glucose 85 mg/dL (70-99); Potassium 3.9 mmol/L (3.3-5.1); Sodium Level 139 mmol/L (133-145)
== END ==
LOC: OLS.WHLCAR 04:00
PROVIDERS: PCP Internal Medicine; Referring Provider Internal Medicine; Visit Provider Internal Medicine
DX: R31.9 Hematuria, unspecified (principal); G30.9 Alzheimer's disease, unspecified; R13.11 Dysphagia, oral phase
CPT/HCPCS: 36415; 80048; 85025

== ENCOUNTER → 2024-06-23 | Outpatient (REF) | payer MEDICARE, OTHER, SELFPAY ==
[2024-06-23 09:08] LABS: Uric Acid 4.2 mg/dL (3.5-7.2)
== END ==
LOC: OLS.WHLCAR 05:00
PROVIDERS: PCP Internal Medicine; Visit Provider Internal Medicine
DX: E79.0 Hyperuricemia without signs of inflammatory arthritis and tophaceous disease (principal); G30.9 Alzheimer's disease, unspecified; F02.818 Dementia in other diseases classified elsewhere, unspecified severity, with other behavioral disturbance; G25.0 Essential tremor; R13.11 Dysphagia, oral phase; I48.20 Chronic atrial fibrillation, unspecified
CPT/HCPCS: 36415; 84550

== ENCOUNTER → 2024-07-21 | Outpatient (REF) | payer MEDICARE, OTHER, SELFPAY ==
[2024-07-21 07:53] LABS: Absolute Lymphocyte Count 1.21 X10^3/uL (0.83-4.51); Absolute Neutrophil Count 5.1 X10^3/uL (2.0-7.7); Basophil# 0.03 X10^3/uL; Basophil% 0.4 % (0-1); Eosinophils% 1.4 % (0-5); Hemoglobin 12.4 g/dL (13.0-16.5); Lymphocyte # 1.21 X10^3/ul (0.83-4.51); Lymphocyte % 16.7 % (19-41); Mean Corp Hgb Conc 31.8 g/dL (32-36); Mean Corpuscular Hgb 32.1 pg (27.0-32.0); Mean Platelet Vol. 11.7 fl (6.2-12.0); Monocyte# 0.82 X10^3/uL; Monocyte% 11.3 % (0-10); NRBC Flagged by Analyzer 0 % (0-5); Neutrophil # 5.06 X10^3/uL (2.7-7.7); Neutrophil % 69.8 % (47-70); Platelet Count 172 K/mm3 (150-450); RBC Distribution Width CV 15.4 % (11.6-14.6); RBC Distribution Width SD 57.9 fl (35.1-43.9); Red Blood Count 3.86 M/mm3 (4.6-6.2); White Blood Count 7.3 K/mm3 (4.4-11.0)
[2024-07-21 08:10] LABS: Anion Gap 10 (5-15); BUN 18 mg/dL (4-19); BUN/Creat Ratio 16.2 RATIO (10-20); Calcium,Total 9.1 mg/dL (7.6-11.0); Carbon Dioxide 25.5 mmol/L (21.0-32.0); Chloride 106 mmol/L (98-108); Creatinine, Serum 1.08 mg/dL (0.70-1.20); EST Glomerular Filtration Rate 67 (>60); Glucose 90 mg/dL (70-99); Potassium 3.9 mmol/L (3.3-5.1); Sodium Level 141 mmol/L (133-145)
== END ==
LOC: OLS.WHLCAR 05:00
PROVIDERS: PCP Internal Medicine; Visit Provider Internal Medicine
DX: G30.9 Alzheimer's disease, unspecified (principal); R53.83 Other fatigue; I48.20 Chronic atrial fibrillation, unspecified
CPT/HCPCS: 36415; 80048; 84443; 85025

== ENCOUNTER → 2024-08-01 05:00 | Outpatient (REF) | payer MEDICARE, OTHER, SELFPAY ==
[2024-08-01 08:07] LABS: Absolute Lymphocyte Count 1.39 X10^3/uL (0.83-4.51); Absolute Neutrophil Count 4.8 X10^3/uL (2.0-7.7); Basophil# 0.03 X10^3/uL; Basophil% 0.4 % (0-1); Eosinophil# 0.19 X10^3/uL; Eosinophils% 2.6 % (0-5); Hematocrit 40.2 % (40-54); Hemoglobin 12.6 g/dL (13.0-16.5); Lymphocyte # 1.39 X10^3/ul (0.83-4.51); Lymphocyte % 18.9 % (19-41); Mean Corp Hgb Conc 31.3 g/dL (32-36); Mean Corpuscular Hgb 31.6 pg (27.0-32.0); Mean Corpuscular Volume 100.8 fL (80-94); Mean Platelet Vol. 11.8 fl (6.2-12.0); Monocyte# 0.92 X10^3/uL; Monocyte% 12.5 % (0-10); NRBC Flagged by Analyzer 0 % (0-5); Neutrophil % 65.2 % (47-70); Platelet Count 182 K/mm3 (150-450); RBC Distribution Width CV 15.5 % (11.6-14.6); RBC Distribution Width SD 57.9 fl (35.1-43.9); Red Blood Count 3.99 M/mm3 (4.6-6.2); White Blood Count 7.4 K/mm3 (4.4-11.0)
== END ==
LOC: OLS.WHLCAR 05:00
PROVIDERS: PCP Internal Medicine; Visit Provider Internal Medicine
DX: G30.9 Alzheimer's disease, unspecified (principal); F02.818 Dementia in other diseases classified elsewhere, unspecified severity, with other behavioral disturbance; G25.0 Essential tremor; I48.20 Chronic atrial fibrillation, unspecified; R13.11 Dysphagia, oral phase
CPT/HCPCS: 36415; 85025

== ENCOUNTER → 2024-08-02 05:00 | Outpatient (REF) | payer MEDICARE, OTHER, SELFPAY ==
[2024-08-02 07:32] LABS: Anion Gap 11 (5-15); BUN 12 mg/dL (4-19); BUN/Creat Ratio 12.3 RATIO (10-20); Calcium,Total 9.1 mg/dL (7.6-11.0); Carbon Dioxide 24.2 mmol/L (21.0-32.0); Chloride 105 mmol/L (98-108); Creatinine, Serum 1.01 mg/dL (0.70-1.20); EST Glomerular Filtration Rate 73 (>60); Glucose 140 mg/dL (70-99); Potassium 3.7 mmol/L (3.3-5.1); Sodium Level 141 mmol/L (133-145)
== END ==
LOC: OLS.WHLCAR 05:00
PROVIDERS: PCP Internal Medicine; Visit Provider Internal Medicine
DX: G30.9 Alzheimer's disease, unspecified (principal); F02.818 Dementia in other diseases classified elsewhere, unspecified severity, with other behavioral disturbance; G25.0 Essential tremor; R13.11 Dysphagia, oral phase; I48.20 Chronic atrial fibrillation, unspecified
CPT/HCPCS: 80048

== ENCOUNTER → 2024-08-22 05:00 | Outpatient (REF) | payer MEDICARE, OTHER, SELFPAY ==
--- OUTSIDE RECORDS SUMMARY | 2024-08-22 04:07 | XMS RPT_ITS | CCD ---
Author Organization [facility] Care Team Providers Care [place] Buyer Name Role Phone Nicolas Cardenas MD Primary Care Provider Dr. Nicolas Cardenas Primary Care Provider Dr. Abhinav Leigh Emergency Provider Dr. Robinson Nguyen Admit Provider Dr. Robinson Nguyen Attending Provider Dr. Robinson Nguyen Other Provider Dr. Kevin Nichole Attending Provider Dr. Kevin Nichole Other Provider Dr. Desire Leung Attending Provider Nicolas Cardenas MD Primary Care Provider Mesha DRY WALL APPLICATOR, DRY WALL APPLICATOR-Caron Minaya Attending Provider Dr. Nicolas Justin Primary Care Provider Mesha DRY WALL APPLICATOR, DRY WALL APPLICATOR-C Marimar Attending Provider Dr. David Nina Attending Provider Unavailable Primary Care Provider UnavailNICOLAS Blankenship Referring Unavailable NICOLAS CARDENAS Attending Unavailable NICOLAS CARDENAS Primary Care Unavailable Dr. Nicolas Cardenas Primary Care Provider Mesha DRY WALL APPLICATOR, DRY WALL APPLICATOR-C Marimar Attending Provider Dr. David Nina Attending Provider Dr. Nicolas Cardenas Primary Care Provider Mesha DRY WALL APPLICATOR, DRY WALL APPLICATOR-C Marimar Attending Provider Jack Miramontes Dr. Efewongbe Attending Provider [phone] Dr. Nicolas Cardenas Primary Care Provider Mesha DRY WALL APPLICATOR, DRY WALL APPLICATOR-C Marimar Attending Provider Dr. David Miramontes Attending Provider Kulwinder ALAMO, Dr. Win Primary Care Provider Kai ALAMO, Dr. Sandhu Attending Provider [phone] Kai ALAMO, Dr. Sandhu Referring Provider [phone] Kulwinder ALAMO, Dr. Win Attending Provider [phone] Isidro Can Attending Provider Mesha DRY WALL APPLICATOR-C, Marimar Attending Provider Kulwinder ALAMO, David Attending Provider Unavailapril Miramontes MD, David Referring Provider Unavailapril Miramontes MD, Dr. Win Referring Provider [phone] Dr. Josiah Klein MD Attending Provider [phone] Kulwinder ALAMO, Dr. Win Primary Care Provider Kulwinder ALAMO, Dr. Win Attending Provider [phone] Dr. Edson Quinn MD Attending Provider [phone] Dr. Edson Quinn MD Referring Provider [phone] Kulwinder ALAMO, Dr. Win Primary Care Provider Mesha DRY WALL APPLICATOR-CMarimar Attending Provider Unavailable Primary Care Provider Unavailabl e POSTLETDIANA COLLAZO Attending Unava ilable SELF Referring Unavailable David Zheng Attending Unavailabl e Oleghe, Efewongbe Primary Care Unavailable Oleghe David GARCIA Attending Unavailabl e Oleghe, Efewongbe Primary Care Unavailable Tickton DRY WALL APPLICATORMarimar Attending Unavailable Oleghe, Efewongbe Primary Care Unavailable [place] DRY WALL APPLICATOR, Marimar Attending Unavailable Oleghe, Efewongbe Primary Care Unavailable Oleghe OLS, Efewongbe Attending Unavailabl e Oleghe, Efewongbe Primary Care Unavailable Oleghe OLS, Efewongbe Attending Unavailabl e Oleghe OLS, Efewongbe Referring Unavailabl e Oleghe, Efewongbe Primary Care Unavailable Oleghe, Efewongbe Attending Unavailable Oleghe, Efewongbe Referring Unavailable Oleghe, Efewongbe Primary Care Unavailable Oleghe OLS, Efewongbe Attending Unavailabl e Oleghe, Efewongbe Primary Care Unavailable Josiah Klein Attending Unavailable Oleghe, Efewongbe Referring Unavailable Oleghe, Efewongbe Primary Care Unavailable Kai, [place] Referring Unavailable Kai, Edson Attending Unavailable Oleghe, Efewongbe Primary Care Unavailable Oleghe OLS, Efewongbe Attending Unavailabl e Oleghe, Efewongbe Primary Care Unavailable Oleghe OLS, Efewongbe Attending Unavailabl e Oleghe, Efewongbe Primary Care Unavailable Oleghe OLS, Efewongbe Referring Unavailabl e Oleghe OLS, Efewongbe Attending Unavailabl e Oleghe, Efewongbe Primary Care Unavailable Oleghe OLS, Efewongbe Attending Unavailabl e Oleghe, Efewongbe Primary Care Unavailable Oleghe OLS, Efewongbe Attending Unavailabl e Oleghe, Efewongbe Primary Care Unavailable Oleghe OLS, Efewongbe Attending Unavailabl e Oleghe, Efewongbe Primary Care Unavailable Oleghe OLS, Efewongbe Attending Unavailabl e Oleghe, Efewongbe Primary Care Unavailable Kai, [place] Attending Unavailable Kai, Edson Referring Unavailable Oleghe, Efewongbe Primary Care Unavailable Oleghe, Efewongbe Attending Unavailable Oleghe, Efewongbe Primary Care Unavailable Kyung Wright Attending Unavailable Oleghe, Efewongbe Primary Care Unavailable Oleghe OLS, Efewongbe Attending Unavailabl e Oleghe, Efewongbe Primary Care Unavailable Oleghe OLS, Efewongbe Attending Unavailabl e Oleghe, Efewongbe Primary Care Unavailable Oleghe OLS, Efewongbe Referring Unavailabl e Oleghe, Efewongbe Attending Unavailable Oleghe, Efewongbe Primary Care Unavailable Mesha DRY WALL APPLICATOR, Marimar Attending Unavailable Oleghe, Efewongbe Primary Care Unavailable Tickton DRY WALL APPLICATOR, Marimar Attending Unavailable Oleghe, Efewongbe Primary Care Unavailable Kai, Edson Referring Unavailable Kai, Edson Attending Unavailable Oleghe, Efewongbe Primary Care Unavailable Tickton DRY WALL APPLICATOR, Marimar Attending Unavailable Oleghe, Efewongbe Primary Care Unavailable Kai, Edson Referring Unavailable Kai, [place] Attending Unavailable Oleghe, Efewongbe Primary Care Unavailable Tickton DRY WALL APPLICATOR, Marimar Attending Unavailable Oleghe, Efewongbe Primary Care Unavailable Oleghe, Efewongbe Attending Unavailable Oleghe, Efewongbe Primary Care Unavailable Isidro Kennedy Attending Unavailable Oleghe, Efewongbe Primary Care Unavailable [place]ickton DRY WALL APPLICATOR, Marimar Attending Unavailable Oleghe, Efewongbe Primary Care Unavailable Kai, [place] Referring Unavailable Kai, [place] Attending Unavailable Oleghe, Efewongbe Primary Care Unavailable Oleghe, Efewongbe Attending Unavailable Oleghe, Efewongbe Primary Care Unavailable [place]ickton DRY WALL APPLICATOR, Marimar Attending Unavailable Oleghe, Efewongbe Primary Care Unavailable Kyung Wright Attending Unavailable Oleghe, Efewongbe Primary Care Unavailable Kai, Edson Referring Unavailable Kai, [place] Attending Unavailable Oleghe, Efewongbe Primary Care Unavailable Oleghe, Efewongbe Attending Unavailable Oleghe, Efewongbe Primary Care Unavailable Oleghe, Efewongbe Attending Unavailable Oleghe, Efewongbe Primary Care Unavailable Oleghe OLS, Efewongbe Attending Unavailabl e Oleghe, Efewongbe Primary Care Unavailable Oleghe OLS, Efewongbe Attending Unavailabl e Oleghe, Efewongbe Primary Care Unavailable Medications Current Medications Medication Drug Class(es) Dates Sig (Normalized) Sig (Original) aluminum hydroxide 40 mg/ml / magnesium hydroxide 40 mg/ml / simethicone 4 mg/ml oral suspension (5 sources) Start: 07-08-2023 Alum-Mag Hydroxide-Simeth 200-200-20 mg/5 mL suspension Active 15 mL PO Q4H as needed July 08, 2023 12:00am 1 and 3 hours after meals and at bedtime apixaban 5 mg oral tablet (20 sources) Factor Xa Inhibitor Start: 11-08-2018 End: 05-26-2024 ELIQUIS 5 mg tab(s) Take 5 mg by mouth twice daily. Per cardiology. 11/08/2018 Active Comment on above: Take 5 mg by mouth t wice daily. Per cardiology. Aspirin (1 source) Platelet Aggregation Inhibitor, Nonsteroidal Anti-inflammatory Drug Start: 10-20-2021 aspirin Active October 20, 2021 12:00am benzocaine 0.2 mg/mg / menthol 0.001 mg/mg / zinc chloride 0.0015 mg/mg oral gel (5 sources) Standardized Chemical Allergen Start: 07-08-2023 Benzocaine-Mentho l-Zinc Chlor (Orajel 3x Mouth Sores) 20-0.1-0.15 % gel Active NMA MUCOUS MEM July 08, 2023 12:00am cimetidine 200 mg oral tablet (18 sources) Histamine-2 Receptor Antagonist Start: 02-13-2022 End: 03-25-2022 take 1 tablet by mouth once daily Cimetidine 200 mg tablet Active 200 mg PO DAILY 90 March 25, 2022 9:56pm CPAP (7 sources) CPAP Active CPAP Docosahexanoic Acid-Eicosapent (FISH OIL) ORAL Cap (7 sources) Start: 08-31-2006 take 1 capsule by mouth once daily Docosahexanoic Acid-Eicosapent (FISH OIL) ORAL Cap Take one(1) capsule daily. 0 0 08/31/2006 Active Comment on above: Take one(1) capsule daily. docusate sodium 50 mg / sennosides, senior care 8.6 mg oral tablet (20 sources) Start: 10-22-2021 End: 02-26-2022 Sennosides-Docusate Sodium (Stool Softener-Stimulant Laxat) 8.6-50 mg tablet Active 2 {tbl} PO TWICE A DAY 180 February 26, 2022 5:15pm finasteride 5 mg oral tablet (20 sources) 5-alpha Reductase Inhibitor Start: 08-23-2018 End: 04-03-2024 take 1 tablet by mouth once daily finasteride (PROSCAR) 5 mg tablet Indications: BPH with obstruction/lower urinary tract symptoms Take 1 tablet by mouth once daily. 90 tablet 3 03/31/2021 Active Comment on above: Take 1 tablet by glenna once daily. furosemide 40 mg oral tablet (20 sources) Loop Diuretic Start: 01-09-2019 End: 03-06-2024 take 1 tablet by mouth once daily furosemide (LASIX) 40 mg tablet Take 1 tablet by mouth once daily. 05/26/2019 Active Start: 08-23-2018 End: 01-09-2019 take 2 tablets by mouth once daily Furosemide 20 mg tablet Discontinued 40 mg PO DAILY 60 August 23, 2018 3:20pm January 09, 2019 4:06pm Start: 08-23-2018 End: 01-09-2019 take 40 mg by mouth once daily Furosemide Discontinued 40 MG PO DAILY 60 August 23, 2018 2:20pm January 09, 2019 3:06pm Start: 08-05-2018 End: 08-23-2018 take 1 tablet by mouth once daily Furosemide 20 mg tablet Discontinued 20 mg PO DAILY August 05, 2018 12:00am August 23, 2018 3:22pm Comment on above: Take 1 tablet by glenna once daily. Magnesium Hydroxide (5 sources) Start: 07-08-2023 take 1 mL by mouth once daily as needed Magnesium Hydroxide 400 mg/5 mL suspension Active 30 mL PO DAILY as needed July 08, 2023 12:00am omeprazole 20 mg delayed release oral capsule (20 sources) Proton Pump Inhibitor Start: 08-05-2018 End: 07-08-2023 take 1 capsule by mouth once daily omeprazole (PRILOSEC) 20 mg capsule Indications: Multiple gastric ulcers Take 1 capsule by mouth once daily. 90 capsule 3 03/31/2021 Active Comment on above: Take 1 capsule by mo [facility] once daily. potassium chloride 10 meq extended release oral tablet (20 sources) Start: 06-16-2024 take 1 tablet by mouth once daily Potassium Chloride 10 mEq tablet extended release Active 10 meq PO DAILY June 16, 2024 1:13pm Start: 08-23-2018 End: 06-16-2024 take 1 tablet by mouth once daily Potassium Chloride 20 mEq tablet extended release Discontinued 20 meq PO DAILY April 01, 2023 10:42am June 16, 2024 1:13pm potassium chlori de ER (KLOR-CON M20) 20 mEq tablet Take 20 mEq by mouth once daily. Active Comment on above: Take 20 mEq by mouth once daily. QUEtiapine 25 mg oral tablet (10 sources) Atypical Antipsychotic Start: take 1 tablet by mouth once daily in the morning, then take 2 tablets by mouth in the evening Quetiapine (Seroquel) 25 mg tablet Active 75 mg PO DAILY 270 90 November 08, 2023 5:02pm 1 tab a.m. and 2 tabs p.m. Start: 07-22-2023 End: 11-08-2023 Quetiapine (Seroquel) 25 mg tablet Discontinued 12.5 mg PO DAILY 45 July 22, 2023 12:00am November 08, 2023 5:03pm sertraline 25 mg oral tablet (5 sources) Serotonin Reuptake Inhibitor Start: 05-05-2024 take 1 tablet by mouth once daily Sertraline (Zoloft) 25 mg tablet Active 25 mg PO daily May 05, 2024 1:00am terazosin 5 mg oral capsule (20 sources) alpha-Adrenergic Franki Start: 08-05-2018 End: 07-08-2023 take 1 capsule by mouth once daily at bedtime terazosin (HYTRIN) 5 mg capsule Indications: BPH with obstruction/lower urinary tract symptoms Take 1 capsule by mouth daily at bedtime. 90 capsule 3 03/31/2021 Active Comment on above: Take 1 capsule by mo ut daily at bedtime. vitamin b6 100 mg oral tablet (20 sources) Start: 02-21-2008 End: 07-08-2023 pyridoxine hcl(VITAMIN B-6 100 MG TAB) Take one(1) tablet daily. 0 02/21/2008 Active Comment on above: Take one(1) tablet d aily. Completed/Discontinued Medications Medication Drug Class(es) Dates Sig (Normalized) Sig (Original) amLODIPine 5 mg oral tablet (14 sources) Dihydropyridine Calcium Channel Franki Start: 9 End: 9 take 1 tablet by mouth once daily Amlodipine 5 mg tablet Discontinued 5 mg PO DAILY August 05, 2018 12:00am August 23, 2018 3:20pm docosahexaenoic acid 120 mg / eicosapentaenoic acid 180 mg oral capsule (14 sources) Start: 9 End: 9 Docosahexaenoic Acid-Epa 120-180 mg capsule Discontinued 1 NMA PO DAILY August 05, 2018 12:00am August 23, 2018 2:32pm docosahexaenoic acid 144 mg / eicosapentaenoic acid 216 mg / vitamin e 2 unt oral capsule (14 sources) Start: 9 End: 4 Medina-3 Fatty Acids-Fish Oil (Fish Oil) 360-1,200 mg capsule Discontinued 1 NMA PO DAILY November 08, 2018 12:00am July 08, 2023 11:50am memantine hydrochloride 5 mg oral tablet (20 sources) Y-tkzfsx-R-aspartate Receptor Antagonist Start: 3 End: 4 take 1 tablet by mouth twice daily Memantine 5 mg tablet Discontinued 0 .ROUTE .COMPLEX 180 March 31, 2023 7:49pm July 08, 2023 11:50am TAKE 1 TABLET BY MOUTH TWICE DAILY Menthol / Zinc Oxide (20 sources) Start: 2 End: 4 Menthol-Zinc Oxide (Calmoseptine) 0.44-20.6 % ointment Discontinued 1 NMA TOPICAL TWICE A DAY 113 February 26, 2022 5:14pm July 08, 2023 11:50am Please contact the information source for Protocol details. Start: 02-26-2022 Menthol-Zinc O xide (Calmoseptine) 0.44-20.6 % ointment Active 1 APPLIC TOPICAL TWICE A DAY 113 February 26, 2022 5:14pm Start: 02-26-2022 Menthol-Zinc O xide (Calmoseptine) 0.44-20.6 % ointment Active 1 APPLIC TOPICAL TWICE A DAY 113 February 26, 2022 4:14pm Start: 10-22-2021 End: 02-26-2022 Menthol-Zinc Oxide (Calmosep ame) 0.44-20.6 % Ointment Discontinued 1 NMA TOPICAL TWICE A DAY 0 October 22, 2021 12:00am February 26, 2022 5:15pm Please contact the information source for Protocol details. Start: 10-22-2021 End: 02-26-2022 Menthol-Zinc Oxide (Calmosep ame) 0.44-20.6 % Ointment Discontinued 1 APPLIC TOPICAL TWICE A DAY 0 October 22, 2021 12:00am February 26, 2022 5:15pm Start: 10-22-2021 End: 02-26-2022 Menthol-Zinc Oxide (Calmosep ame) 0.44-20.6 % Ointment Discontinued 1 APPLIC TOPICAL TWICE A DAY 0 October 21, 2021 11:00pm February 26, 2022 4:15pm Start: 10-22-2021 Menthol-Zinc O xide (Calmoseptine) 0.44-20.6 % Ointment Active 1 APPLIC TOPICAL TWICE A DAY 0 October 22, 2021 12:00am Medina-3 Fatty Acids (Fish Oil Concentrate) 1,000 mg capsule (14 sources) Start: 08-23-2018 End: 11-08-2018 take 1 capsule by mouth once daily Medina-3 Fatty Acids (Fish Oil Concentrate) 1,000 mg capsule Discontinued 1000 mg PO DAILY August 23, 2018 12:00am November 08, 2018 1:59pm Start: 08-23-2018 End: 11-08-2018 take 1 capsule by mouth once daily Medina-3 Fatty Acids (Fish Oil Concentrate) 1,000 mg capsule Discontinued 1000 MG PO DAILY August 22, 2018 11:00pm November 08, 2018 12:59pm Start: 08-23-2018 End: 11-08-2018 take 1 capsule by mouth once daily Medina-3 Fatty Acids (Fish Oil Concentrate) 1,000 mg capsule Discontinued 1000 MG PO DAILY August 23, 2018 12:00am November 08, 2018 1:59pm Perflutren Lipid Microsphere s (Definity) 1.1 mg/mL suspension (14 sources) Start: 08-05-2018 End: 08-23-2018 Perflutren Lipid Microsphere s (Definity) 1.1 mg/mL suspension Discontinued mg .Route August 05, 2018 12:00am August 23, 2018 2:30pm inj Start: 08-05-2018 End: 08-23-2018 Perflutren Lipid Microsphere s (Definity) 1.1 mg/mL suspension Discontinued MG .Route August 04, 2018 11:00pm August 23, 2018 1:30pm inj Start: 08-05-2018 End: 08-23-2018 Perflutren Lipid Microsphere s (Definity) 1.1 mg/mL suspension Discontinued MG .Route August 05, 2018 12:00am August 23, 2018 2:30pm inj primidone 50 mg oral tablet (14 sources) Anti-epileptic Agent Start: 08-05-2018 End: 04-10-2019 take 1 tablet by mouth twice daily Primidone 50 mg tablet Discontinued 50 mg PO TWICE A DAY August 05, 2018 12:00am April 10, 2019 11:57am Problems Active Problems Problem Classification Problem Date Documented Da te Episodic/Chronic Cardiac dysrhythmias (20 sources) Atrial fibrillation; Translations: [Unspecified atrial fibrillation] Onset: 08-04-2018 08-04-2018 Chronic Cardiac dysrhythmias (14 sources) Bradycardia; Translations: [Bradycardia, unspecified] 12-13-2018 Episodic Conduction disorders (20 sources) Cardiac pacemaker in situ; Translations: [Presence of cardiac pacemaker] Onset: 11-18-2018 05-26-2019 Chronic Comment on above: 6.7 seconds on chris r, plus several other pauses of shorter duration 11/15/18 Delirium, dementia, and amnestic and other cognitive disorders (9 sources) Senile dementia; Translations: [Unspecified dementia without behavioral disturbance] Onset: 09-29-2021 Chronic E Codes: Fall (16 sources) Fall; Translations: [Unspecified fall, initial encounter] Episodic Essential hypertension (20 sources) Benign essential hypertension; Translations: [Essential (primary) hypertension] Onset: 03-10-2005 01-08-2010 Chronic Gastroduodenal ulcer (except hemorrhage) (7 sources) Multiple gastric ulcers; Translations: [Gastric ulcer, unspecified as acute or chronic, without hemorrhage or perforation] Onset: 07-16-2016 07-16-2016 Chronic Genitourinary symptoms and ill-defined conditions (7 sources) Todd hematuria; Translations: [Gross hematuria] Onset: 09-16-2018 Resolved: 12-13-2018 07-14-2024 Episodic Hyperplasia of prostate (7 sources) Benign prostatic hypertrophy with outflow obstruction; Translations: [Benign prostatic hyperplasia with lower urinary tract symptoms] Onset: 03-10-2005 06-27-2015 Chronic Malaise and fatigue (1 source) Other fatigue; Translations: [Other fatigue] Onset: 08-07-2024 Episodic Other aftercare (14 sources) Long-term current use of anticoagulant; Translations: [jail (current) use of anticoagulants] 10-30-2021 Episodic Other aftercare (2 sources) 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; Translations: [Long-term (current) use of anticoagulants] Episodic Other circulatory disease (1 source) Other specified peripheral vascular diseases; Translations: [Other specified peripheral vascular diseases] Onset: 06-05-2024 Chronic Other circulatory disease (14 sources) H/O: atrial fibrillation; Translations: [Personal history of other diseases of the circulatory system] 10-30-2021 Episodic Other circulatory disease (2 sources) Personal history of other diseases of the circulatory system; Translations: [Personal history of other diseases of circulatory system] Episodic Other gastrointestinal disorders (2 sources) Dysphagia, oral phase; Translations: [Dysphagia, oral phase] Onset: 06-21-2024 Episodic Other hereditary and degenerative nervous system conditions (8 sources) Essential tremor; Translations: [Essential tremor] Onset: 05-23-2013 05-23-2013 Chronic Other hereditary and degenerative nervous system conditions (2 sources) Essential tremor; Translations: [Essential tremor] Onset: 06-21-2024 Chronic Other nutritional; endocrine; and metabolic disorders (7 sources) Obese class I; Translations: [Obesity, unspecified] Onset: 12-12-2018 12-12-2018 Chronic Other nutritional; endocrine; and metabolic disorders (14 sources) Adult failure to thrive syndrome; Translations: [Adult failure to thrive] 10-30-2021 Episodic Other nutritional; endocrine; and metabolic disorders (2 sources) Adult failure to thrive; Translations: [Adult failure to thrive] Episodic Other nutritional; endocrine; and metabolic disorders (1 source) Hyperuricemia without signs of inflammatory arthritis and tophaceous disease; Translations: [Hyperuricemia without signs of inflammatory arthritis and tophaceous disease] Onset: 07-14-2024 Episodic Other upper respiratory disease (7 sources) Chronic rhinitis; Translations: [Chronic rhinitis] Onset: 03-10-2005 01-08-2010 Chronic Residual codes; unclassified (20 sources) Obstructive sleep apnea syndrome; Translations: [Obstructive sleep apnea (adult) (pediatric)] Onset: 08-04-2018 08-04-2018 Chronic Substance-related disorders (1 source) Sedative, hypnotic or anxiolytic abuse, in remission; Translations: [Sedative, hypnotic or anxiolytic abuse, in remission] Onset: 04-11-2024 Chronic Unclassified (2 sources) Dementia in other diseases classified elsewhere, unspecified severity, with other behavioral disturbance; Translations: [Dementia in other diseases classified elsewhere, unspecified severity, with other behavioral disturbance] Onset: 06-21-2024 Unclassified (2 sources) Chronic atrial fibrillation, unspecified; Translations: [Chronic atrial fibrillation, unspecified] Onset: 06-21-2024 Past or Other Problems Problem Classification Problem Date Documented Da te Episodic/Chronic Diverticulosis and diverticulitis (2 sources) Diverticulosis of colon; Translations: [Diverticulosis of large intestine without perforation or abscess without bleeding] Onset: 08-31-2006 Resolved: 06-26-2014 06-26-2014 Chronic Immunizations and screening for infectious disease (3 sources) Vaccination needed; Translations: [Encounter for immunization] Onset: 12-03-2023 Episodic Other and unspecified benign neoplasm (7 sources) Benign neoplasm of colon; Translations: [Benign neoplasm of colon, unspecified] Onset: 08-31-2006 01-08-2010 Episodic Other and unspecified benign neoplasm (2 sources) History of polyp of colon; Translations: [Personal history of colonic polyps] Onset: 03-10-2005 Resolved: 06-26-2014 06-26-2014 Episodic Other connective tissue disease (1 source) Muscle wasting and atrophy, not elsewhere classified, right lower leg; Translations: [Muscle wasting and atrophy, not elsewhere classified, right lower leg] Onset: 05-09-2024 Episodic Other connective tissue disease (1 source) Muscle wasting and atrophy, not elsewhere classified, unspecified site; Translations: [Muscle wasting and atrophy, not elsewhere classified, unspecified site] Onset: 12-03-2023 Episodic Other diseases of bladder and urethra (2 sources) Bladder neck obstruction; Translations: [Bladder-neck obstruction] Onset: 08-22-2007 Resolved: 04-22-2012 04-22-2012 Chronic Other gastrointestinal disorders (2 sources) Occult blood in stools; Translations: [Other fecal abnormalities] Onset: 05-25-2013 Resolved: 01-18-2017 01-18-2017 Episodic Other nervous system disorders (8 sources) Impaired cognition; Translations: [Other symptoms and signs involving cognitive functions and awareness] Onset: 12-13-2018 12-13-2018 Episodic Other screening for suspected conditions (not mental disorders or infectious disease) (2 sources) Raised prostate specific antigen; Translations: [Elevated prostate specific antigen [PSA]] Onset: 03-10-2005 Resolved: 06-26-2014 06-26-2014 Episodic Other skin disorders (1 source) Localized swelling, mass and lump, right upper limb; Translations: [Localized swelling, mass and lump, right upper limb] Onset: 12-03-2023 Episodic Residual codes; unclassified (2 sources) Mild memory disturbance ; Translations: [Other amnesia] Onset: 05-23-2013 Resolved: 12-13-2018 12-13-2018 Episodic Residual codes; unclassified (2 sources) Edema, unspecified; Translations: [Edema, unspecified] Onset: 12-03-2023 Episodic Residual codes; unclassified (1 source) Pain, unspecified; Translations: [Pain, unspecified] Onset: 12-03-2023 Episodic Spondylosis; intervertebral disc disorders; other back problems (2 sources) Chronic low back pain; Translations: [Chronic midline low back pain without sciatica] Onset: 07-19-2017 Resolved: 05-26-2019 05-26-2019 Episodic Urinary tract infections (1 source) Urinary tract infection, site not specified; Translations: [Urinary tract infection, site not specified] Onset: 05-10-2024 Episodic Results Test Name Value Interpretation Reference Range Facility BLADDER SCANon 07-14-2024 PVR 59 [facility] BLADDER SCANOrdered By: Dayo Perez on 07-14-2024 [facility] CNOVon 07-14-2024 CNOV Office Visit (AKURFL) KEL DILLARD ([id number]) 1940 M Date Time Provider Department 07/14/24 9:00 AM DIANA ARANGO During your visit today, we recorded the following information about you: Diana Arango APRN.WELL TESTING OPERATOR 07/14/2024 9:11 AM Signed [facility] [place] [facility] [place] [facility] VISIT 07/14/2024 8:51 AM PATIENT NAME: Kel Dillard DATE OF : 1940 TODAY'S DATE: 07/14/2024 Chief Complaint: Patient presents with: Blood In Urine History of Present Illness: Mr. Dillard is a 84 year old male who presents to the office regarding gross hematuria. Patient first noted blood on about two weeks ago. Son is not sure how long the blood persisted for. He states patient was on ABX but it did not help. Unsure if patient is on ABX now. Patient has dementia history, short term memory loss. Son primary historian. Patient's son is court appointed guardian. Accompanied by no other symptoms. 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 Formerly known to Dr. Diehl Prior cystoscopy: Unsure Blood thinners: Eliquis Review of Systems Constitutional: Negative for chills and fever. Genitourinary: See HPI Past Medical History: PAST MEDICAL HISTORY Diagnosis Date Atrial fibrillation (HCC) 08/04/2018 Benign neoplasm of colon 08/2000 Chronic midline low back pain without sciatica 07/19/2017 Chronic rhinitis 03/10/2005 Diverticulosis of colon (without mention of hemorrhage) Elevated prostate specific antigen (PSA) 03/10/2005 Essential hypertension, benign 03/10/2005 Essential tremor 05/23/2013 Helicobacter pylori (H. 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 Impaired fasting glucose 03/10/2005 Multiple gastric ulcers 07/16/2016 Sick sinus syndrome (HCC) 11/15/2018 sinus pause Past Surgical History: PAST SURGICAL HISTORY Procedure Laterality Date COLONOSCOPY FLX DX W/COLLJ SPEC WHEN PFRMD 08/2000 Colonoscopy COLONOSCOPY FLX DX W/COLLJ SPEC WHEN PFRMD 04/16/2003 Colonoscopy COLONOSCOPY FLX DX W/COLLJ SPEC WHEN PFRMD 10/06/11 Colonoscopy repeat repeat 5 years COLONOSCOPY FLX DX W/COLLJ SPEC WHEN PFRMD 04/09/2016 Colonoscopy COLONOSCOPY W/BIOPSY SINGLE/MULTIPLE 08/31/06 CYSTOSCOPY 10/10/2018 EGD 09/08/2016 ESOPHAGOGASTRODUODEN OSCOPY TRANSORAL DIAGNOSTIC 09/02/2004 EGD ESOPHAGOGASTRODUODEN OSCOPY TRANSORAL DIAGNOSTIC 04/09/2016 EGD PACEMAKER IMPLANT 11/18/2018 single lead PPM PROSTATE NEEDLE BIOPSY ANY APPROACH 03/26/2004 Transrectal bx, prostate Social History: Social History Tobacco Use Smoking status: Former Current packs/day: 0.00 Average packs/day: 1 pack/day for 10.0 years (10.0 ttl pk-yrs) Types: Cigarettes Start date: 03/01/1949 Quit date: 03/01/1959 Years since quittin.4 Smokeless tobacco: Never Substance Use Topics Alcohol use: No Drug use: No Medications: Prior to Admission medications : Medication finasteride (PROSCAR) 5 mg tablet, Sig Take 1 tablet by mouth once daily., Start Date 03/31/21, End Date , Taking? , Authorizing Provider Nicolas Cardenas MD Medication terazosin (HYTRIN) 5 mg capsule, Sig Take 1 capsule by mouth daily at bedtime., Start Date 03/31/21, End Date , Taking? , Authorizing Provider Nicolas Cardenas MD Medication omeprazole (PRILOSEC) 20 mg capsule, Sig Take 1 capsule by mouth once daily., Start Date 03/31/21, End Date , Taking? , Authorizing Provider Nicolas Cardenas MD Medication CPAP, Sig , Start Date , End Date , Taking? , Authorizing Provider Provider, [facility] Medication furosemide (LASIX) 40 mg tablet, Sig Take 1 tablet by mouth once daily., Start Date 05/26/19, End Date , Taking? , Authorizing Provider Nicolas Cardenas MD Medication ELIQUIS 5 mg tab(s), Sig Take 5 mg by mouth twice daily. Per cardiology., Start Date 11/08/18, End Date , Taking? , Authorizing Provider Provider, [facility] Medication potassium chloride ER (KLOR-CON M20) 20 mEq tablet, Sig Take 20 mEq by mouth once daily., Start Date , End Date , Taking? , Authorizing Provider Provider, [facility] Medication pyridoxine hcl(VITAMIN B-6 100 MG TAB), Sig Take one(1) tablet daily., Start Date 02/21/08, End Date , Taking? , Authorizing Provider Jhonny Granados Medication Docosahexanoic Acid-Eicosapent (FISH OIL) ORAL Cap, Sig Take one(1) capsule daily., Start Date 08/31/06, End Date , Taking? , Authorizing Provider Avi Mendoza MD ALLERGIES No Known Allergies Problem List Reviewed: Yes Vitals: Ht (P) 165.1 cm (5' 5") Wt (P) 87.1 kg (192 lb) BMI (P) 31.95 kg/m? Physical (more content not included)... Normal [facility] CYTOLOGY NON-GYNon 5 AP DISCLAIMER Normal [facility] Comment on above: Order Comment: Speci men Type: URINE SPECIMEN Ordering Facility: [facility] Address: [address] [place], [place] [id number] Result Comment: Hussain blanco Developed Test (LDT) Disclaimer: Performance characteristics of immunohistochemical, immunofluorescent, and chromogenic in-situ hybridization tests have been determined by the performing laboratory within [facility]'s [facility] Pathology and Laboratory Medicine Department ([facility], [facility], [facility], [facility], [facility], [facility], or [facility]) in a manner consistent with CLIA requirements. One or more of these tests may not have been cleared or approved by the FDA. [facility] is regulated under CLIA as qualified to perform high-complexity testing. These tests are used for clinical purposes. These should not be regarded as investigational or for research. Positive and negative controls stain appropriately. Performed By: #### C YTONON #### [facility] CLIA [id number] [address] OF [facility] CASE REPORT Normal [facility] Comment on above: Order Comment: Speci men Type: URINE SPECIMEN Ordering Facility: [facility] Address: [address] [id number] Result Comment: [facility] Cytology Report Case: [id number] Authorizing Provider: Diana Arango Collected: 07/14/2024 09:01 AM MATTHEW Ochoa Ordering Location: [facility] Received: 07/17/2024 03:50 AM Pathologist: Rosy Cavazos MD Specimen: Urine, Midstream Performed By: #### C YTONON #### [facility] CLIA [id number] [address] CLINICAL HISTORY gross hematuria Normal [facility] Comment on above: Order Comment: Speci men Type: URINE SPECIMEN Ordering Facility: [facility] Address: [address] [place] [address] Performed By: #### C YTONON #### [facility] CLIA [id number] [address] FINAL DIAGNOSIS Normal [facility] Comment on above: Order Comment: Speci men Type: URINE SPECIMEN Ordering Facility: [facility] Address: [address] [place] [address] Result Comment: A - Urine, Midstream Negative for high-grade urothelial carcinoma. Blood. at 1046 EDT Performed By: #### C YTONON #### [facility] CLIA [id number] [address] [place] [address] FINAL PERFORMING LAB Normal [facility] Comment on above: Order Comment: Speci men Type: URINE SPECIMEN Ordering Facility: [facility] Address: [address] [place] [address] Result Comment: Tech nical component, solution designer screening performed at: [facility], [address] [place] [address] CLIA: [id number] Diagnostic interpretation performed at: [facility], [address] [address] CLIA# [id number] [employer] Supervisor: Josiah Ochao MD Performed By: #### C YTONON #### [facility] CLIA [id number] [address] GROSS DESCRIPTION Normal [facility] Comment on above: Order Comment: Speci men Type: URINE SPECIMEN Ordering Facility: [facility] Address: [address] [place] [address] Result Comment: A. U rine, Midstream 7.5 cc cloudy yellow fluid. ThinPrep prepared. Performed By: #### C YTONODebra #### [facility] CLIA [id number] [address] [place] [address] [place] UA DIP, URINE (POC)on 2024 BILIRUBIN UA (POCT) Negative Negative [facility] CLARITY UA (POCT) Clear [facility] COLOR UA (POCT) Yellow [facility] GLUCOSE UA (POCT) Negative Negative mg/dL [facility] Hemoglobin Ql (U) Trace-intact Abnormal Negative [facility] Interpretation and review of laboratory results Abnormal [facility] KETONE UA (POCT) Negative Negative mg/dL [facility] LEUKOCYTES UA (POCT) Negative Negative [facility] NITRITE UA (POCT) Negative Negative [facility] PH UA (POCT) 5.5 4.5 - 8.0 [facility] Protein Ql (U) 30 mg/dL Abnormal Negative [facility] SPECIFIC GRAVITY UA (POCT) 1.025 1.005 - 1.030 [facility] UROBILINOGEN UA (POCT) 0.2 Debbie l E.U./dL [facility] Location:[facility], [address] [place] [address], [address] [place] [address] POINT OF CARE [facility] Serum or plasma uric acid me asurement (mass/volume)Ordered By: David Miramontes on 06-23-2024 Urate [Mass/Vol] 4.2 mg/dL 3.5-7.2 [facility] Comment on above: The drugs N-Acetylcy steine and Metamizole may falsely depress this assay. Absolute lymphocyte countOrd ered By: David Miramontes on 06-05-2024 Lymphocytes Auto (Unsp spec) [#/Vol] 1.05 10*3/uL 0.83-4.51 [facility] Absolute neutrophil countOrd ered By: David Miramontes on 06-05-2024 Neutrophils (Bld) [#/Vol] 4.8 10*3/uL 2.0-7.7 [facility] Anion gap in Serum or Plasma Ordered By: David Miramontes on 06-05-2024 Anion gap [Moles/Vol] 11 mmol/L 5-15 [facility] Automated lymphocyte count a s percentage of total leukocytesOrdered By: David Miramontes on 06-05-2024 Lymphocytes/100 WBC Auto (Unsp spec) 15.8 % Low 19-41 [facility] BUN/creatinine ratioOrdered By: Frandyprattsvilleingris Miramontes on 06-05-2024 Urea nitrogen/Creatinine [Mass ratio] 9.3 mg/mg Low 10-20 [facility] Basophil percentageOrdered B y: David Miramontes on 06-05-2024 Basophils/100 WBC (Bld) 1.1 % High 0-1 [facility] Carbon dioxide, total [Moles /volume] in Central venous bloodOrdered By: David Miramontes on 06-05-2024 CO2 [Moles/Vol] 26.8 mmol/L 21.0-32.0 [facility] Chloride assayOrdered By: Mayra waynecarleen Miramontes on 06-05-2024 Chloride [Moles/Vol] 101 mmol/L 98-108 [facility] Eosinophil percentageOrdered By: David Miramontes on 06-05-2024 Eosinophils/100 WBC (Bld) 2.3 % 0-5 [facility] Erythrocyte distribution wid th (RBC) [Ratio]Ordered By: David Miramontes on 06-05-2024 Erythrocyte distribution width (RBC) [Entitic vol] 55.4 fL High 35.1-43.9 [facility] Erythrocyte distribution wid th ratioOrdered By: David Miramontes on 06-05-2024 Erythrocyte distribution width (RBC) [Ratio] 15.0 % High 11.6-14.6 [facility] Erythrocyte distribution wid th standard deviationOrdered By: David Miramontes on 06-05-2024 Erythrocyte distribution width (RBC) [Ratio] 55.4 fl High 35.1-43.9 [facility] GFR/1.73 sq M.predicted eleazar g non-blacks MDRD (S/P/Bld) [Vol rate/Area]Ordered By: David Miramontes on 06-05-2024 Estimated GFR (MDRD) Non-Af Amer 48 Low >60 [facility] Comment on above: mL/min/1.73m2 CKD-EP I Creatinine Equation (2020) Glomerular filtration rate ( GFR) estimation/1.73 sq m using serum, plasma, or whole bOrdered By: David Miramontes on 06-05-2024 GFR/1.73 sq M.predicted among non-blacks MDRD (S/P/Bld) [Vol rate/Area] 48 mL/min/{1.73_m2} Low >60 [facility] Comment on above: mL/min/1.73m2 CKD-EP I Creatinine Equation (2020) Hematocrit Auto (Bld) [Volum e fraction]Ordered By: danay Miramontes on 06-05-2024 Hematocrit (Bld) [Volume fraction] 41.8 % 40-54 [facility] Hemoglobin measurementOrdere d By: David Miramontes on 06-05-2024 Hemoglobin (Bld) [Mass/Vol] 13.3 g/dL 13.0-16.5 [facility] Immature granulocytes/100 WB C Auto (Bld)Ordered By: David Miramontes on 06-05-2024 Immature granulocytes/100 WBC (Bld) 0.300 % 0.0-0.9 [facility] Comment on above: IG% - Immature Granu locytes (promyelocytes, myelocytes and metamyelocytes) > 1% indicates that a LEFT SHIFT is Present. Lymphocytes Auto (Unsp spec) [#/Vol]Ordered By: David Miramontes on 06-05-2024 Lymphocytes (Bld) [#/Vol] 1.05 10*3/uL 0.83-4.51 [facility] Lymphocytes/100 WBC Auto (Un sp spec)Ordered By: David Miramontes on 06-05-2024 Lymphocytes/100 WBC (Bld) 15.8 % Low 19-41 [facility] MCV (mean corpuscular volume ) determinationOrdered By: David Miramontes on 06-05-2024 MCV (RBC) [Entitic vol] 100.5 fL High 80-94 [facility] Mean corpuscular hemoglobin (MCH) determinationOrdered By: David Miramontes 06-05-2024 MCH (RBC) [Entitic mass] 32.0 pg 27.0-32.0 [facility] Mean corpuscular hemoglobin concentration (MCHC) determinationOrdered By: Mayrawaynefeliciaingris Pinkamnatereza on 06-05-2024 MCHC (RBC) [Mass/Vol] 31.8 g/dL Low 32-36 [facility] Mean platelet volume determi nationOrdered By: David Joesphamnatereza on 06-05-2024 Platelet mean volume (Bld) [Entitic vol] 11.3 fL 6.2-12.0 [facility] Monocyte percentageOrdered B y: Vickyingris Pinkamnatereza on 06-05-2024 Monocytes/100 WBC (Bld) 8.9 % 0-10 [facility] Neutrophil percentageOrdered By: David Joesphamnatereza on 06-05-2024 Neutrophils/100 WBC (Bld) 71.6 % High 47-70 [facility] Nucleated red blood cell per centageOrdered By: Mayrawaynecarleen Joesphamnatereza on 06-05-2024 Nucleated RBC/100 WBC (Bld) [Ratio] 0 % 0-5 [facility] Platelet countOrdered By: Mayra danay Joesphamnatereza on 06-05-2024 Platelets (Bld) [#/Vol] 216 10*3/uL 150-450 [facility] Potassium (Unsp spec) [Mass/ Vol]Ordered By: Frandyfeliciaingris Pinkamnatereza on 06-05-2024 Potassium [Moles/Vol] 3.9 mmol/L 3.3-5.1 [facility] Potassium measurement (mass/ volume)Ordered By: David Pinkamnatereza on 06-05-2024 Potassium (Unsp spec) [Mass/Vol] 3.9 mmol/L 3.3-5.1 [facility] RBC Auto (Bld) [#/Vol]Ordere d By: David Joesphamnatereza on 06-05-2024 RBC (Bld) [#/Vol] 4.16 10*6/uL Low 4.6-6.2 [facility] Serum creatinine measurement (mass/volume)Ordered By: Frandyfeliciaingris Pinkamnatereza on 06-05-2024 Creatinine [Mass/Vol] 1.42 mg/dL High 0.70-1.20 [facility] Serum glucose measurement (m ass/volume)Ordered By: David Miramontes on 06-05-2024 Glucose [Mass/Vol] 85 mg/dL 70-99 [facility] Serum or plasma calcium siobhan urement (mass/volume)Ordered By: David Miramontes on 06-05-2024 Calcium [Mass/Vol] 9.0 mg/dL 7.6-11.0 [facility] Serum or plasma urea nitroge n measurement (mass/volume)Ordered By: David Miramontes on 06-05-2024 Urea nitrogen [Mass/Vol] 13 mg/dL 4-19 [facility] Sodium levelOrdered By: [facility] Kulwinder on 06-05-2024 Sodium [Moles/Vol] 139 mmol/L 133-145 [facility] White blood cell (WBC) count Ordered By: David Miramontes on 06-05-2024 WBC (Bld) [#/Vol] 6.6 10*3/uL 4.4-11.0 [facility] Amorphous sediment detection in urine sediment by light microscopyOrdered By: David Miramontes on 05-30-2024 Amorphous sediment LM Ql (Urine sed) 1+ [facility] Ankle Brachial Indexon 05-30 Ankle Brachial Index [facility] [address] [place] [address] Ankle Brachial Index 05/30/24 0904 MR#: [id number] Acct: [id number] Name: KEL DILLARD Rep #: [id number] : 1940 84 From: Josiah Klein MD Attending Dr: Dr. David Miramontes MD Status: REG CLI Ordering Dr: David Miramontes MD Date: 05/30/24 Location: [facility] Sex: M C Admitted: Reason For Study Reason For Study: COLD FEET, DECREASED PEDAL PULSES Procedure A bilateral lower extremity continuous wave Doppler with analog waveform analysis and ankle brachial indexes. Left Segmental Pressures Left brachial= 110mmHg. Left posterior tibial artery = 153mmHg. Left dorsalis pedis artery = 148mmHg. Left digit = 126 mmHg. The left posterior tibial artery waveforms are triphasic. The left dorsalis pedis waveforms are triphasic. Right Segmental Pressures Right brachial= 110mmHg. Right posterior tibial artery = 143mmHg. Right dorsalis pedis artery = 161mmHg. Right digit = 85 mmHg. The right posterior tibial artery waveforms are biphasic. The right dorsalis pedis waveforms are triphasic. Indices The right resting ankle brachial index is 1.46. The right ankle brachial index by the posterior tibial artery is 1.30. The right ankle brachial index by the dorsalis pedis is 1.46. The right digital-brachial index is 0.77. The left resting ankle brachial index is 1.39. The left ankle brachial index by the posterior tibial artery is 1.39. The left ankle brachial index by the dorsalis pedis is 1.35. The left digital-brachial index is 1.15. VL/Ankle Brachial Index Interpretation Summary Right RAINA 1.46, normal. Doppler/PVR waveforms of the right ankle normal at rest. TBI diminished, pedal/digit disease vs spasm. Left RAINA 1.39, normal. TBI and Doppler/PVR waveforms of the left ankle normal at rest. Ordering Physician: Kulwinder Win Dr., MD Referring Physician: DAVID MIRAMONTES MD Performed By: Yasmine May T, RDCS 05/30/24 1543 Date Josiah Klein MD CC: Dr. David Miramontes MD Date Dictated: 05/30/24 0904 Date Transcribed: 05/30/24 3952 Deal Architect: Signed Normal [facility] Arterial study reportOrdered By: Josiah Klein on 05-30-2024 Noninvasive arteriosclerosis study report [facility] [address] [place] [address] Ankle Brachial Index 05/30/24 0904 MR#: [id number] Acct: [id number] Name: KEL DILLARD Rep #:[id number] : 1940 84 From: Josiah Naranjo Attending Dr: Dr. David Miramontes MD Status: REG CLI Ordering Dr: David Miramontes MD Date: 05/30/24 Location: [facility] Sex: M C Admitted: Reason For Study Reason For Study: COLD FEET, DECREASED PEDAL PULSES Procedure A bilateral lower extremity continuous wave Doppler with analog waveform analysis and ankle brachial indexes. Left Segmental Pressures Left brachial= 110mmHg. Left posterior tibial artery = 153mmHg. Left dorsalis pedis artery = 148mmHg. Left digit = 126 mmHg. The left posterior tibial artery waveforms are triphasic. The left dorsalis pedis waveforms are triphasic. Right Segmental Pressures Right brachial= 110mmHg. Right posterior tibial artery = 143mmHg. Right dorsalispedis artery = 161mmHg. Right digit = 85 mmHg. The right posterior tibial artery waveforms are biphasic. The right dorsalis pedis waveforms are triphasic. Indices The right resting ankle brachial index is 1.46. The right ankle brachial index by the posterior tibial artery is 1.30. The right ankle brachial index by the dorsalis pedis is 1.46. The right digital-brachial index is 0.77. The left resting ankle brachial index is 1.39. The left ankle brachial index by the posterior tibial artery is 1.39. The left ankle brachial index by the dorsalis pedis is 1.35. The left digital-brachial index is1.15. VL/Ankle Brachial Index Interpretation Summary Right RAINA 1.46, normal. Doppler/PVR waveforms of the right ankle normal at rest.TBI diminished, pedal/digit disease vs spasm. Left RAINA 1.39, normal. TBI and Doppler/PVR waveforms of the left ankle normal atrest. Ordering Physician: Andres^^Dr Obrien^ Referring Physician: DAVID MIRAMONTES MD Performed By: Yasmine May RVT, RDCS 05/30/24 154 Date _ Josiah Klein MD CC: Dr. David Miramontes MD ~ Date Dictated: 05/30/24903 Date Transcribed: 05/30/241542 Deal Architect: Signed [facility] Work Phone: Bilirubin Test strip Ql (U)O rdered By: David Miramontes on 05-30-2024 Bilirubin Ql (U) Negative Negative [facility] Epithelial cells.squamous LM Ql (Urine sed)Ordered By: David Miramontes on 05-30-2024 Epithelial cells.squamous LM.HPF (Urine sed) [#/Area] 0 /[HPF] 0-5 [facility] Glucose Ql (U)Ordered By: Mayra Miramontes on 05-30-2024 Urine Glucose (UA) Normal mg/dl Normal [facility] Ketones Test strip Ql (U)Ord ered By: David Miramontes on 05-30-2024 Ketones Ql (U) Negative Negative [facility] Microscopic analysis of urin e for red blood cells (RBC)Ordered By: David Miramontes on 05-30-2024 Microscopic analysis of urine for red blood cells (RBC) > 100 SEEN /hpf 0-5 [facility] Urine RBC > 100 SEEN /hpf 0-5 [facility] Mucus LM Ql (Urine sed)Order ed By: David Miramontes on 05-30-2024 Mucus Ql (Urine sed) 0 SEEN /hpf [facility] Nitrite Test strip Ql (U)Ord ered By: David Miramontes on 05-30-2024 Nitrite Ql (U) Positive High Negative [facility] PSA, total screeningOrdered By: David Miramontes on 05-30-2024 Prostate Specific Antigen Screen 3.08 ng/mL 0.02-4.00 [facility] Comment on above: This test was perfor med using the [employer] tPSA method. Measured values of a patient sample can vary depending on the testing procedure used. PSA values determined on patient samples by different testing procedures cannot be used interchangeably. If there is a change in PSA assays while monitoring therapy, sequential testing should be performed to confirm baseline values. Protein Test strip Ql (U)Ord ered By: David Miramontes on 05-30-2024 Protein Ql (U) 500 mg/dl High Negative [facility] Squamous epithelial cells de tection in urine sediment by light microscopyOrdered By: David Miramontes on 05-30-2024 Epithelial cells.squamous LM Ql (Urine sed) 0-5 SEEN /hpf 0-5 [facility] Urine blood detectionOrdered By: David Miramontes on 05-30-2024 Urine Occult Blood 250 /ul High Negative [facility] Urine clarityOrdered By: Lg Miramontes on 05-30-2024 Clarity (U) Cloudy Clear [facility] Urine color determinationOrd ered By: David Miramontes on 05-30-2024 Color (U) Brown Yellow [facility] Urine cultureOrdered By: Lg Miramontes on 05-30-2024 Bacteria identified Cx Nom (U) Proteus mirabilis Abnormal [facility] Urine glucose detectionOrder ed By: David Miramontes on 05-30-2024 Glucose Ql (U) Normal mg/dl Normal [facility] Urine leukocyte esterase det ection by dipstickOrdered By: David Miramontes on 05-30-2024 Leukocyte esterase Test strip Ql (U) 500 /ul High Negative [facility] Urine pHOrdered By: Leo Miramontes on 05-30-2024 pH (U) 6.5 [pH] 5.0 - 8.0 [facility] Urine sediment bacteria coun t by microscopy (number/high power field)Ordered By: David Miramontes on 05-30-2024 Bacteria LM.HPF (Urine sed) [#/Area] 2 /[HPF] None Seen [facility] Urine specific gravity measu rementOrdered By: David Miramontes on 05-30-2024 Specific gravity (U) [Rel density] 1.015 1.002-1.030 [facility] Urine urobilinogen measureme ntOrdered By: David Miramontes on 05-30-2024 Urobilinogen Ql (U) 1 mg/dl High Normal [facility] Urobilinogen Ql (U)Ordered B y: David Miramontes on 05-30-2024 Urobilinogen (U) [Mass/Vol] 1 mg/dL High Normal [facility] White blood cell countOrdere d By: David Miramontes on 05-30-2024 Urine WBC 50-100 SEEN /hpf 0-5 [facility] White blood cell count 50-100 SEEN /hpf 0-5 [facility] Absolute lymphocyte countOrd ered By: wayneprattsvilleingris Miramontes on 05-22-2024 Lymphocytes Auto (Unsp spec) [#/Vol] 1.26 10*3/uL 0.83-4.51 [facility] Absolute neutrophil countOrd ered By: David Miramontes on 05-22-2024 Neutrophils (Bld) [#/Vol] 6.5 10*3/uL 2.0-7.7 [facility] Anion gap in Serum or Plasma Ordered By: David Miramontes on 05-22-2024 Anion gap [Moles/Vol] 13 mmol/L 5-15 [facility] Automated lymphocyte count a s percentage of total leukocytesOrdered By: danay Miramontes on 05-22-2024 Lymphocytes/100 WBC Auto (Unsp spec) 14.0 % Low 19-41 [facility] BUN/creatinine ratioOrdered By: David Miramontes on 05-22-2024 Urea nitrogen/Creatinine [Mass ratio] 7.8 mg/mg Low 10-20 [facility] Basophil percentageOrdered B y: David Miramontes on 05-22-2024 Basophils/100 WBC (Bld) 0.4 % 0-1 [facility] Bilirubin, totalOrdered By: David Miramontes on 05-22-2024 Bilirubin [Mass/Vol] 0.44 mg/dL 0.00-1.30 [facility] Carbon dioxide, total [Moles /volume] in Central venous bloodOrdered By: David Joesphiman on 05-22-2024 CO2 [Moles/Vol] 24.8 mmol/L 21.0-32.0 [facility] Chloride assayOrdered By: Mayra danay Joesphiman on 05-22-2024 Chloride [Moles/Vol] 104 mmol/L 98-108 [facility] Eosinophil percentageOrdered By: David Miramontes on 05-22-2024 Eosinophils/100 WBC (Bld) 1.0 % 0-5 [facility] Erythrocyte distribution wid th (RBC) [Ratio]Ordered By: David Guerratereza on 05-22-2024 Erythrocyte distribution width (RBC) [Entitic vol] 54.3 fL High 35.1-43.9 [facility] Erythrocyte distribution wid th ratioOrdered By: David Miramontes on 05-22-2024 Erythrocyte distribution width (RBC) [Ratio] 15.1 % High 11.6-14.6 [facility] Erythrocyte distribution wid th standard deviationOrdered By: David Miramontes on 05-22-2024 Erythrocyte distribution width (RBC) [Ratio] 54.3 fl High 35.1-43.9 [facility] GFR/1.73 sq M.predicted eleazar g non-blacks MDRD (S/P/Bld) [Vol rate/Area]Ordered By: David Miramontes on 05-22-2024 Estimated GFR (MDRD) Non-Af Amer 33 Low >60 [facility] Comment on above: mL/min/1.73m2 CKD-EP I Creatinine Equation (2020) Glomerular filtration rate ( GFR) estimation/1.73 sq m using serum, plasma, or whole bOrdered By: David Miramontes on 05-22-2024 GFR/1.73 sq M.predicted among non-blacks MDRD (S/P/Bld) [Vol rate/Area] 33 mL/min/{1.73_m2} Low >60 [facility] Comment on above: mL/min/1.73m2 CKD-EP I Creatinine Equation (2020) Hematocrit Auto (Bld) [Volum e fraction]Ordered By: David Miramontes on 05-22-2024 Hematocrit (Bld) [Volume fraction] 40.5 % 40-54 [facility] Hemoglobin measurementOrdere d By: David Miramontes on 05-22-2024 Hemoglobin (Bld) [Mass/Vol] 12.9 g/dL Low 13.0-16.5 [facility] Immature granulocytes/100 WB C Auto (Bld)Ordered By: David Miramontes on 05-22-2024 Immature granulocytes/100 WBC (Bld) 0.300 % 0.0-0.9 [facility] Comment on above: IG% - Immature Granu locytes (promyelocytes, myelocytes and metamyelocytes) > 1% indicates that a LEFT SHIFT is Present. Laboratory - Chemistry and C hemistry - challengeOrdered By: David Miramontes on 05-22-2024 AST [Catalytic activity/Vol] 33 U/L <38 [facility] Lymphocytes Auto (Unsp spec) [#/Vol]Ordered By: David Miramontes on 05-22-2024 Lymphocytes (Bld) [#/Vol] 1.26 10*3/uL 0.83-4.51 [facility] Lymphocytes/100 WBC Auto (Un sp spec)Ordered By: David Miramontes on 05-22-2024 Lymphocytes/100 WBC (Bld) 14.0 % Low 19-41 [facility] MCV (mean corpuscular volume ) determinationOrdered By: David Miramontes on 05-22-2024 MCV (RBC) [Entitic vol] 99.3 fL High 80-94 [facility] Mean corpuscular hemoglobin (MCH) determinationOrdered By: David Miramontes on 05-22-2024 MCH (RBC) [Entitic mass] 31.6 pg 27.0-32.0 [facility] Mean corpuscular hemoglobin concentration (MCHC) determinationOrdered By: David Miramontes on 05-22-2024 MCHC (RBC) [Mass/Vol] 31.9 g/dL Low 32-36 [facility] Mean platelet volume determi nationOrdered By: David Miramontes on 05-22-2024 Platelet mean volume (Bld) [Entitic vol] 12.1 fL High 6.2-12.0 [facility] Monocyte percentageOrdered B y: David Miramnotes on 05-22-2024 Monocytes/100 WBC (Bld) 11.8 % High 0-10 [facility] Neutrophil percentageOrdered By: David Miramontes on 05-22-2024 Neutrophils/100 WBC (Bld) 72.5 % High 47-70 [facility] Nucleated red blood cell per centageOrdered By: David Miramontes on 05-22-2024 Nucleated RBC/100 WBC (Bld) [Ratio] 0 % 0-5 [facility] Platelet countOrdered By: Mayra waynecarleen Miramontes on 05-22-2024 Platelets (Bld) [#/Vol] 179 10*3/uL 150-450 [facility] Potassium (Unsp spec) [Mass/ Vol]Ordered By: David Miramontes on 05-22-2024 Potassium [Moles/Vol] 3.3 mmol/L 3.3-5.1 [facility] Potassium measurement (mass/ volume)Ordered By: David Miramontes on 05-22-2024 Potassium (Unsp spec) [Mass/Vol] 3.3 mmol/L 3.3-5.1 [facility] RBC Auto (Bld) [#/Vol]Ordere d By: David Miramontes on 05-22-2024 RBC (Bld) [#/Vol] 4.08 10*6/uL Low 4.6-6.2 [facility] Serum creatinine measurement (mass/volume)Ordered By: David Miramontes on 05-22-2024 Creatinine [Mass/Vol] 1.94 mg/dL High 0.70-1.20 [facility] Serum globulin measurementOr dered By: David Miramontes on 05-22-2024 Globulin (S) [Mass/Vol] 3.2 g/dL 2.2-4.2 [facility] Serum glucose measurement (m ass/volume)Ordered By: David Miramontes on 05-22-2024 Glucose [Mass/Vol] 112 mg/dL High 70-99 [facility] Serum or plasma alanine grant otransferase (ALT) measurementOrdered By: David Miramontes on 05-22-2024 ALT [Catalytic activity/Vol] 8 U/L <47 [facility] Serum or plasma albumin siobhan urement (mass/volume)Ordered By: David Miramontes on 05-22-2024 Albumin [Mass/Vol] 3.5 g/dL 3.4-4.8 [facility] Serum or plasma albumin/glob ulin mass ratioOrdered By: David Miramontes on 05-22-2024 Albumin/Globulin [Mass ratio] 1.1 {ratio} 0.9-2.4 [facility] Serum or plasma alkaline deven sphatase measurementOrdered By: David Miramontes on 05-22-2024 ALP [Catalytic activity/Vol] 71 U/L 40-129 [facility] Serum or plasma calcium siobhan urement (mass/volume)Ordered By: David Miramontes on 05-22-2024 Calcium [Mass/Vol] 8.8 mg/dL 7.6-11.0 [facility] Serum or plasma urea nitroge n measurement (mass/volume)Ordered By: David Miramontes on 05-22-2024 Urea nitrogen [Mass/Vol] 15 mg/dL 4-19 [facility] Sodium levelOrdered By: Frandy Miramontes on 05-22-2024 Sodium [Moles/Vol] 141 mmol/L 133-145 [facility] Total proteinOrdered By: Lg Miramontes on 05-22-2024 Protein [Mass/Vol] 6.7 g/dL 5.9-8.4 [facility] White blood cell (WBC) count Ordered By: David Miramontes on 05-22-2024 WBC (Bld) [#/Vol] 9.0 10*3/uL 4.4-11.0 [facility] Bilirubin Test strip Ql (U)O rdered By: David Miramontes on 04-17-2024 Bilirubin Ql (U) 1 mg/dL High Negative [facility] Comment on above: COLOR OF URINE MAY A FFECT DIPSTICK RESULTS. Glucose Ql (U)Ordered By: Mayra Miramontes on 04-17-2024 Urine Glucose (UA) Normal mg/dl Normal [facility] Ketones Test strip Ql (U)Ord ered By: David Miramontes on 04-17-2024 Ketones Ql (U) 5 mg/dl High Negative [facility] Nitrite Test strip Ql (U)Ord ered By: David Miramontes on 04-17-2024 Nitrite Ql (U) Negative Negative [facility] Protein Test strip Ql (U)Ord ered By: David Miramontes on 04-17-2024 Protein Ql (U) 100 mg/dl High Negative [facility] Urine blood detectionOrdered By: David Miramontes on 04-17-2024 Urine Occult Blood 250 /ul High Negative [facility] Urine clarityOrdered By: Lg Miramontes on 04-17-2024 Clarity (U) Turbid Clear [facility] Urine color determinationOrd ered By: David Miramontes on 04-17-2024 Color (U) Kristina Yellow [facility] Urine cultureOrdered By: Lg Miramontes on 04-17-2024 Bacteria identified Cx Nom (U) Proteus mirabilis Abnormal [facility] Urine glucose detectionOrder ed By: David Miramontes on 04-17-2024 Glucose Ql (U) Normal mg/dl Normal [facility] Urine leukocyte esterase det ection by dipstickOrdered By: David Miramontes on 04-17-2024 Leukocyte esterase Test strip Ql (U) 100 /ul High Negative [facility] Urine pHOrdered By: Leo Miramontes on 04-17-2024 pH (U) 5.0 [pH] 5.0 - 8.0 [facility] Urine specific gravity measu rementOrdered By: David Miramontes on 04-17-2024 Specific gravity (U) [Rel density] 1.025 1.002-1.030 [facility] Urine urobilinogen measureme ntOrdered By: David Guerrae on 04-17-2024 Urobilinogen Ql (U) Normal mg/dl Normal [facility] Urobilinogen Ql (U)Ordered B y: David Guerrae on 04-17-2024 Urine Urobilinogen Normal mg/dl Normal [facility] Absolute lymphocyte countOrd ered By: David Guerrae on 04-13-2024 Lymphocytes Auto (Unsp spec) [#/Vol] 0.98 10*3/uL 0.83-4.51 [facility] Absolute neutrophil countOrd ered By: waynepratts[place]ingris Miramontes on 04-13-2024 Neutrophils (Bld) [#/Vol] 7.0 10*3/uL 2.0-7.7 [facility] Automated lymphocyte count a s percentage of total leukocytesOrdered By: David Miramontes on 04-13-2024 Lymphocytes/100 WBC Auto (Unsp spec) 11.0 % Low 19-41 [facility] Basophil percentageOrdered B y: David Miramontes on 04-13-2024 Basophils/100 WBC (Bld) 0.2 % 0-1 [facility] Eosinophil percentageOrdered By: waynepr[place]ingris Miramontes on 04-13-2024 Eosinophils/100 WBC (Bld) 1.2 % 0-5 [facility] Erythrocyte distribution wid th (RBC) [Ratio]Ordered By: David Guerrae on 04-13-2024 Erythrocyte distribution width (RBC) [Entitic vol] 52.6 fL High 35.1-43.9 [facility] Erythrocyte distribution wid th ratioOrdered By: David Guerrae on 04-13-2024 Erythrocyte distribution width (RBC) [Ratio] 14.6 % 11.6-14.6 [facility] Erythrocyte distribution wid th standard deviationOrdered By: danay Guerrae on 04-13-2024 Erythrocyte distribution width (RBC) [Ratio] 52.6 fl High 35.1-43.9 [facility] Hematocrit Auto (Bld) [Volum e fraction]Ordered By: David Miramontes on 04-13-2024 Hematocrit (Bld) [Volume fraction] 47.5 % 40-54 [facility] Hemoglobin measurementOrdere d By: David Miramontes on 04-13-2024 Hemoglobin (Bld) [Mass/Vol] 15.1 g/dL 13.0-16.5 [facility] Immature granulocytes/100 WB C Auto (Bld)Ordered By: David Miramontes on 04-13-2024 Immature granulocytes/100 WBC (Bld) 0.300 % 0.0-0.9 [facility] Comment on above: IG% - Immature Granu locytes (promyelocytes, myelocytes and metamyelocytes) > 1% indicates that a LEFT SHIFT is Present. Lymphocytes Auto (Unsp spec) [#/Vol]Ordered By: David Miramontes on 04-13-2024 Lymphocytes (Bld) [#/Vol] 0.98 10*3/uL 0.83-4.51 [facility] Lymphocytes/100 WBC Auto (Un sp spec)Ordered By: David Miramontes on 04-13-2024 Lymphocytes/100 WBC (Bld) 11.0 % Low 19-41 [facility] MCV (mean corpuscular volume ) determinationOrdered By: David Miramontes on 04-13-2024 MCV (RBC) [Entitic vol] 98.3 fL High 80-94 [facility] Mean corpuscular hemoglobin (MCH) determinationOrdered By: David Miramontes on 04-13-2024 MCH (RBC) [Entitic mass] 31.3 pg 27.0-32.0 [facility] Mean corpuscular hemoglobin concentration (MCHC) determinationOrdered By: David Miramontes on 04-13-2024 MCHC (RBC) [Mass/Vol] 31.8 g/dL Low 32-36 [facility] Mean platelet volume determi nationOrdered By: David Miramontes on 04-13-2024 Platelet mean volume (Bld) [Entitic vol] 12.2 fL High 6.2-12.0 [facility] Monocyte percentageOrdered B y: David Miramontes on 04-13-2024 Monocytes/100 WBC (Bld) 9.3 % 0-10 [facility] Neutrophil percentageOrdered By: David Miramontes on 04-13-2024 Neutrophils/100 WBC (Bld) 78.0 % High 47-70 [facility] Nucleated red blood cell per centageOrdered By: David Miramontes on 04-13-2024 Nucleated RBC/100 WBC (Bld) [Ratio] 0 % 0-5 [facility] Platelet countOrdered By: Mayra waynecarleen Miramontes on 04-13-2024 Platelets (Bld) [#/Vol] 160 10*3/uL 150-450 [facility] RBC Auto (Bld) [#/Vol]Ordere d By: David Miramontes on 04-13-2024 RBC (Bld) [#/Vol] 4.83 10*6/uL 4.6-6.2 [facility] Serum or plasma uric acid me asurement (mass/volume)Ordered By: David Miramontes on 04-13-2024 Urate [Mass/Vol] 7.3 mg/dL High 3.5-7.2 [facility] Comment on above: The drugs N-Acetylcy steine and Metamizole may falsely depress this assay. White blood cell (WBC) count Ordered By: David Miramontes on 04-13-2024 WBC (Bld) [#/Vol] 8.9 10*3/uL 4.4-11.0 [facility] Bilirubin Test strip Ql (U)O rdered By: David Miramontes on 04-07-2024 Bilirubin Ql (U) Negative Negative [facility] Blood urea nitrogen (BUN)/cr eatinine ratioOrdered By: David Miramontes on 04-07-2024 Urea nitrogen/Creatinine [Mass ratio] 15.7 mg/mg 10-20 [facility] Carbon dioxide measurementOr dered By: David Miramontes on 04-07-2024 CO2 [Moles/Vol] 27.0 mmol/L 21.0-32.0 [facility] Chloride measurementOrdered By: David Miramontes on 04-07-2024 Chloride [Moles/Vol] 107 mmol/L 98-107 [facility] Estimated glomerular filtrat ion rate (GFR) AmericanOrdered By: David Miramontes on 04-07-2024 Estimated GFR (MDRD) Amer 69 mL/min >60 [facility] Comment on above: GFR Calc Glomerular filtration rate ( GFR) estimationOrdered By: David Miramontes on 04-07-2024 Estimated GFR (MDRD) Non-Af Amer 57 mL/min Low >60 [facility] Comment on above: Non- GFR Calc GFR/1.73 sq M.predicted among non-blacks MDRD (S/P/Bld) [Vol rate/Area] 57 mL/min/{1.73_m2} Low >60 [facility] Comment on above: Non- GFR Calc Glucose Ql (U)Ordered By: Mayra Miramontes on 04-07-2024 Urine Glucose (UA) Normal mg/dl Normal [facility] Glucose measurementOrdered B y: David Miramontes on 04-07-2024 Glucose [Mass/Vol] 80 mg/dL 74-106 [facility] Ketones Test strip Ql (U)Ord ered By: David Miramontes on 04-07-2024 Ketones Ql (U) Negative Negative [facility] Nitrite Test strip Ql (U)Ord ered By: David Miramontes on 04-07-2024 Nitrite Ql (U) Negative Negative [facility] Potassium measurementOrdered By: David Miramontes on 04-07-2024 Potassium [Moles/Vol] 3.8 mmol/L 3.5-5.1 [facility] Comment on above: Slight Hemolysis, Re sult may be falsely increased. Protein Test strip Ql (U)Ord ered By: David Miramontes on 04-07-2024 Protein Ql (U) 30 mg/dl High Negative [facility] Serum anion gap measurementO rdered By: David Miramontes on 04-07-2024 Anion gap [Moles/Vol] 9 mmol/L 5-15 [facility] Serum or plasma calcium siobhan urement (mass/volume)Ordered By: David Miramontes on 04-07-2024 Calcium [Mass/Vol] 8.9 mg/dL 8.5-10.1 [facility] Serum or plasma creatinine m easurement (mass/volume)Ordered By: David Miramontes on 04-07-2024 Creatinine [Mass/Vol] 1.27 mg/dL 0.70-1.30 [facility] Comment on above: The validity of the calculated GFR & GFRAA in patients over 70 years has not been determined. Clinical correlation is essential. Serum or plasma urea nitroge n measurement (mass/volume)Ordered By: David Miramontes on 04-07-2024 Urea nitrogen [Mass/Vol] 20 mg/dL High 7-18 [facility] Serum or plasma uric acid me asurement (mass/volume)Ordered By: David Miramontes on 04-07-2024 Urate [Mass/Vol] 7.7 mg/dL High 3.5-7.2 [facility] Comment on above: The drugs N-Acetylcy steine and Metamizole may falsely depress this assay. Sodium levelOrdered By: Frandy Miramontes on 04-07-2024 Sodium [Moles/Vol] 143 mmol/L 136-145 [facility] Urine blood detectionOrdered By: David Miramontes on 04-07-2024 Urine Occult Blood 250 /ul High Negative [facility] Urine clarityOrdered By: Lg Miramontes on 04-07-2024 Clarity (U) Clear Clear [facility] Urine color determinationOrd ered By: David Miramontes on 04-07-2024 Color (U) Straw Yellow [facility] Urine cultureOrdered By: Lg Miramontes on 04-07-2024 Bacteria identified Cx Nom (U) Negative Abnormal [facility] Urine glucose detectionOrder ed By: David Miramontes on 04-07-2024 Glucose Ql (U) Normal mg/dl Normal [facility] Urine leukocyte esterase det ection by dipstickOrdered By: David Miramontes on 04-07-2024 Leukocyte esterase Test strip Ql (U) 25 /ul High Negative [facility] Urine pHOrdered By: Frandyadelia starks Joesphamnatereza on 04-07-2024 pH (U) 6.5 [pH] 5.0 - 8.0 [facility] Urine specific gravity measu rementOrdered By: Vickyingris Joesphamnatereza on 04-07-2024 Specific gravity (U) [Rel density] 1.005 1.002-1.030 [facility] Urine urobilinogen measureme ntOrdered By: David Pinkamnatereza on 04-07-2024 Urobilinogen Ql (U) Normal mg/dl Normal [facility] Urobilinogen Ql (U)Ordered B y: Mayrawaynefeliciaingris Pinkamnatereza on 04-07-2024 Urine Urobilinogen Normal mg/dl Normal [facility] Absolute lymphocyte countOrd ered By: David Pinkamnatereza on 04-04-2024 Lymphocytes Auto (Unsp spec) [#/Vol] 0.82 10*3/uL Low 0.83-4.51 [facility] Absolute neutrophil countOrd ered By: Frandyfeliciaingris Pinkamnatereza on 04-04-2024 Neutrophils (Bld) [#/Vol] 11.6 10*3/uL High 2.0-7.7 [facility] Automated lymphocyte count a s percentage of total leukocytesOrdered By: David Pinkamnatereza on 04-04-2024 Lymphocytes/100 WBC Auto (Unsp spec) 5.9 % Low 19-41 [facility] Basophil percentageOrdered B y: Vickyingris Pinkamnatereza on 04-04-2024 Basophils/100 WBC (Bld) 0.2 % 0-1 [facility] Blood urea nitrogen (BUN)/cr eatinine ratioOrdered By: David Miramontes on 04-04-2024 Urea nitrogen/Creatinine [Mass ratio] 9.6 mg/mg Low 10-20 [facility] Carbon dioxide measurementOr dered By: David Pinkamnatereza on 04-04-2024 CO2 [Moles/Vol] 26.0 mmol/L 21.0-32.0 [facility] Chloride measurementOrdered By: David Miramontes on 04-04-2024 Chloride [Moles/Vol] 105 mmol/L 98-107 [facility] Eosinophil percentageOrdered By: David Miramontes on 04-04-2024 Eosinophils/100 WBC (Bld) 0.0 % 0-5 [facility] Erythrocyte distribution wid th (RBC) [Ratio]Ordered By: David Miramontes on 04-04-2024 Erythrocyte distribution width (RBC) [Entitic vol] 55.2 fL High 35.1-43.9 [facility] Erythrocyte distribution wid th ratioOrdered By: David Miramontes on 04-04-2024 Erythrocyte distribution width (RBC) [Ratio] 15.2 % High 11.6-14.6 [facility] Erythrocyte distribution wid th standard deviationOrdered By: danay Miramontes on 04-04-2024 Erythrocyte distribution width (RBC) [Ratio] 55.2 fl High 35.1-43.9 [facility] Estimated glomerular filtrat ion rate (GFR) AmericanOrdered By: David Miramontes on 04-04-2024 Estimated GFR (MDRD) Amer 47 mL/min Low >60 [facility] Comment on above: GFR Calc Glomerular filtration rate ( GFR) estimationOrdered By: David Miramontes on 04-04-2024 Estimated GFR (MDRD) Non-Af Amer 39 mL/min Low >60 [facility] Comment on above: Non- GFR Calc GFR/1.73 sq M.predicted among non-blacks MDRD (S/P/Bld) [Vol rate/Area] 39 mL/min/{1.73_m2} Low >60 [facility] Comment on above: Non- GFR Calc Glucose measurementOrdered B y: David Miramontes on 04-04-2024 Glucose [Mass/Vol] 119 mg/dL High 74-106 [facility] Comment on above: Fasting Glucose resu lt from 100 to 125 mg/dL suggests IMPAIRED HOMEOSTASIS per A.D.A. criteria. Hematocrit Auto (Bld) [Volum e fraction]Ordered By: David Miramontes on 04-04-2024 Hematocrit (Bld) [Volume fraction] 49.2 % 40-54 [facility] Hemoglobin measurementOrdere d By: David Miramontes on 04-04-2024 Hemoglobin (Bld) [Mass/Vol] 15.9 g/dL 13.0-16.5 [facility] Immature granulocytes/100 WB C Auto (Bld)Ordered By: David Miramontes on 04-04-2024 Immature granulocytes/100 WBC (Bld) 0.500 % 0.0-0.9 [facility] Comment on above: IG% - Immature Granu locytes (promyelocytes, myelocytes and metamyelocytes) > 1% indicates that a LEFT SHIFT is Present. Lymphocytes Auto (Unsp spec) [#/Vol]Ordered By: danay Miramontes on 04-04-2024 Lymphocytes (Bld) [#/Vol] 0.82 10*3/uL Low 0.83-4.51 [facility] Lymphocytes/100 WBC Auto (Un sp spec)Ordered By: danay Miramontes on 04-04-2024 Lymphocytes/100 WBC (Bld) 5.9 % Low 19-41 [facility] MCV (mean corpuscular volume ) determinationOrdered By: David Miramontes on 04-04-2024 MCV (RBC) [Entitic vol] 98.4 fL High 80-94 [facility] Mean corpuscular hemoglobin (MCH) determinationOrdered By: David Miramontes on 04-04-2024 MCH (RBC) [Entitic mass] 31.8 pg 27.0-32.0 [facility] Mean corpuscular hemoglobin concentration (MCHC) determinationOrdered By: David Miramontes on 04-04-2024 MCHC (RBC) [Mass/Vol] 32.3 g/dL 32-36 [facility] Mean platelet volume determi nationOrdered By: danay Miramontes on 04-04-2024 Platelet mean volume (Bld) [Entitic vol] 12.5 fL High 6.2-12.0 [facility] Monocyte percentageOrdered B y: David Miramontes on 04-04-2024 Monocytes/100 WBC (Bld) 9.9 % 0-10 [facility] Neutrophil percentageOrdered By: David Miramontes on 04-04-2024 Neutrophils/100 WBC (Bld) 83.5 % High 47-70 [facility] Nucleated red blood cell per centageOrdered By: Frandyfeliciaingris Pinkamnatereza on 04-04-2024 Nucleated RBC/100 WBC (Bld) [Ratio] 0 % 0-5 [facility] Platelet countOrdered By: Mayra fawadingris Pinkamnatereza on 04-04-2024 Platelets (Bld) [#/Vol] 209 10*3/uL 150-450 [facility] Potassium measurementOrdered By: David Pinkamnatereza on 04-04-2024 Potassium [Moles/Vol] 4.2 mmol/L 3.5-5.1 [facility] Comment on above: Slight Hemolysis, Re sult may be falsely increased. RBC Auto (Bld) [#/Vol]Ordere d By: David Pinkamnatereza on 04-04-2024 RBC (Bld) [#/Vol] 5.00 10*6/uL 4.6-6.2 [facility] Serum anion gap measurementO rdered By: David Pinkamnatereza on 04-04-2024 Anion gap [Moles/Vol] 8 mmol/L 5-15 [facility] Serum or plasma calcium siobhan urement (mass/volume)Ordered By: David Miramontes on 04-04-2024 Calcium [Mass/Vol] 9.6 mg/dL 8.5-10.1 [facility] Serum or plasma creatinine m easurement (mass/volume)Ordered By: David Miramontes on 04-04-2024 Creatinine [Mass/Vol] 1.77 mg/dL High 0.70-1.30 [facility] Comment on above: The validity of the calculated GFR & GFRAA in patients over 70 years has not been determined. Clinical correlation is essential. Serum or plasma urea nitroge n measurement (mass/volume)Ordered By: David Miramontes on 04-04-2024 Urea nitrogen [Mass/Vol] 17 mg/dL 7-18 [facility] Sodium levelOrdered By: Frandy chavezyonatan Kulwinder on 04-04-2024 Sodium [Moles/Vol] 139 mmol/L 136-145 [facility] White blood cell (WBC) count Ordered By: David Miramontes on 04-04-2024 WBC (Bld) [#/Vol] 13.9 10*3/uL High 4.4-11.0 [facility] Absolute lymphocyte countOrd ered By: David Miramontes on 04-06-2023 Lymphocytes Auto (Unsp spec) [#/Vol] 1.24 10*3/uL 0.83-4.51 [facility] Automated lymphocyte count a s percentage of total leukocytesOrdered By: David Miramontes on 04-06-2023 Lymphocytes/100 WBC Auto (Unsp spec) 18.7 % 19-41 [facility] Basophil percentageOrdered B y: David Miramontes on 04-06-2023 Basophils/100 WBC (Bld) 0.5 % 0-1 [facility] Chloride [Moles/Vol] 109 mmol/L 98-107 [facility] Eosinophils/100 WBC (Bld) 1.7 % 0-5 [facility] Glucose [Mass/Vol] 90 mg/dL 74-106 [facility] Hemoglobin (Bld) [Mass/Vol] 15.4 g/dL 13.0-16.5 [facility] Monocytes/100 WBC (Bld) 9.4 % 0-10 [facility] Neutrophils (Bld) [#/Vol] 4.6 10*3/uL 2.0-7.7 [facility] Neutrophils/100 WBC (Bld) 69.2 % 47-70 [facility] Potassium [Moles/Vol] 3.7 mmol/L 3.5-5.1 [facility] Sodium [Moles/Vol] 141 mmol/L 136-145 [facility] WBC (Bld) [#/Vol] 6.6 10*3/uL 4.4-11.0 [facility] Determination of erythrocyte mean corpuscular volume (MCV)Ordered By: David Miramontes on 04-06-2023 MCV (RBC) [Entitic vol] 98.2 fL 80-94 [facility] [facility] Erythrocyte distribution wid th ratioOrdered By: David Miramontes on 04-06-2023 Erythrocyte distribution width (RBC) [Ratio] 14.4 % 11.6-14.6 [facility] Erythrocyte distribution wid th standard deviationOrdered By: David Miramontes on 04-06-2023 Erythrocyte distribution width (RBC) [Entitic vol] 51.7 fL 35.1-43.9 [facility] Hematocrit Auto (Bld) [Volum e fraction]Ordered By: David Miramontes on 04-06-2023 Hematocrit (Bld) [Volume fraction] 49.2 % 40-54 [facility] Immature granulocytes/100 WB C Auto (Bld)Ordered By: David Miramontes on 04-06-2023 Immature granulocytes/100 WBC (Bld) 0.500 % 0.0-0.9 [facility] Comment on above: IG% - Immature Granu locytes (promyelocytes, myelocytes and metamyelocytes) > 1% indicates that a LEFT SHIFT is Present. Laboratory - Chemistry and C hemistry - challengeOrdered By: David Miramontes on 04-06-2023 CO2 [Moles/Vol] 27.0 mmol/L 21.0-32.0 [facility] Urea nitrogen/Creatinine [Mass ratio] 15.0 mg/mg 10-20 [facility] Laboratory - Hematology and Cell countsOrdered By: David Miramontes on 04-06-2023 MCH (RBC) [Entitic mass] 30.7 pg 27.0-32.0 [facility] MCHC (RBC) [Mass/Vol] 31.3 g/dL 32-36 [facility] Nucleated RBC/100 WBC (Bld) [Ratio] 0 % 0-5 [facility] Platelet mean volume (Bld) [Entitic vol] 11.5 fL 6.2-12.0 [facility] Platelets (Bld) [#/Vol] 189 10*3/uL 150-450 [facility] No Panel InformationOrdered By: David Miramontes on 04-06-2023 Estimated GFR (MDRD) Amer 85 mL/min >60 [facility] Comment on above: GFR Calc Estimated GFR (MDRD) Non-Af Amer 70 mL/min >60 [facility] Comment on above: Non- GFR Calc RBC Auto (Bld) [#/Vol]Ordere d By: David Miramontes on 04-06-2023 RBC (Bld) [#/Vol] 5.01 10*6/uL 4.6-6.2 [facility] Serum or plasma calcium siobhan urement (mass/volume)Ordered By: David Miramontes on 04-06-2023 Calcium [Mass/Vol] 9.1 mg/dL 8.5-10.1 [facility] Serum or plasma creatinine m easurement (mass/volume)Ordered By: David Miramontes on 04-06-2023 Creatinine [Mass/Vol] 1.07 mg/dL 0.70-1.30 [facility] Comment on above: The validity of the calculated GFR & GFRAA in patients over 70 years has not been determined. Clinical correlation is essential. Serum or plasma urea nitroge n measurement (mass/volume)Ordered By: [place] Miramontes on 04-06-2023 Urea nitrogen [Mass/Vol] 16 mg/dL 7-18 [facility] Thin prep Papanicolaou smear with manual screeningOrdered By: [place] Miramontes on 04-06-2023 Thin prep Papanicolaou smear with manual screening 5 5-15 [facility] Absolute lymphocyte countOrd ered By: David Miramontes on 12-30-2022 Lymphocytes Auto (Unsp spec) [#/Vol] 1.16 10*3/uL 0.83-4.51 [facility] Basophil percentageOrdered B y: David Miramontes on 12-30-2022 Basophils/100 WBC (Bld) 0.4 % 0-1 [facility] Chloride [Moles/Vol] 109 mmol/L 98-107 [facility] Eosinophils/100 WBC (Bld) 1.3 % 0-5 [facility] Glucose [Mass/Vol] 84 mg/dL 74-106 [facility] Neutrophils (Bld) [#/Vol] 5.4 10*3/uL 2.0-7.7 [facility] Neutrophils/100 WBC (Bld) 72.7 % 47-70 [facility] Potassium [Moles/Vol] 3.6 mmol/L 3.5-5.1 [facility] Sodium [Moles/Vol] 142 mmol/L 136-145 [facility] WBC (Bld) [#/Vol] 7.4 10*3/uL 4.4-11.0 [facility] Blood erythrocytes count (nu mber/volume)Ordered By: David Miramontes on 12-30-2022 RBC (Bld) [#/Vol] 4.15 10*6/uL 4.6-6.2 [facility] Blood hemoglobin measurement (mass/volume)Ordered By: David Miramontes on 12-30-2022 Hemoglobin (Bld) [Mass/Vol] 13.0 g/dL 13.0-16.5 [facility] Blood lymphocytes/100 leukoc ytesOrdered By: David Miramontes on 12-30-2022 Lymphocytes/100 WBC (Bld) 15.6 % 19-41 [facility] Blood monocytes/100 leukocyt esOrdered By: David Miramontes on 12-30-2022 Monocytes/100 WBC (Bld) 9.6 % 0-10 [facility] Blood platelet mean volumeOr dered By: David Miramontes on 12-30-2022 Platelet mean volume (Bld) [Entitic vol] 11.6 fL 6.2-12.0 [facility] Determination of erythrocyte mean corpuscular volume (MCV)Ordered By: David Miramontes on 12-30-2022 MCV (RBC) [Entitic vol] 99.5 fL 80-94 [facility] Hematocrit Auto (Bld) [Volum e fraction]Ordered By: David Miramontes on 12-30-2022 Hematocrit (Bld) [Volume fraction] 41.3 % 40-54 [facility] Laboratory - Chemistry and C hemistry - challengeOrdered By: David Miramontes on 12-30-2022 CO2 [Moles/Vol] 27.0 mmol/L 21.0-32.0 [facility] Urea nitrogen/Creatinine [Mass ratio] 11.6 mg/mg 10-20 [facility] Laboratory - Hematology and Cell countsOrdered By: David Miramontes on 12-30-2022 Erythrocyte distribution width (RBC) [Entitic vol] 51.5 fL 35.1-43.9 [facility] Erythrocyte distribution width (RBC) [Ratio] 14.2 % 11.6-14.6 [facility] Immature granulocytes/100 WBC (Bld) 0.400 % 0.0-0.9 [facility] Comment on above: IG% - Immature Granu locytes (promyelocytes, myelocytes and metamyelocytes) > 1% indicates that a LEFT SHIFT is Present. MCH (RBC) [Entitic mass] 31.3 pg 27.0-32.0 [facility] Nucleated RBC/100 WBC (Bld) [Ratio] 0 % 0-5 [facility] MCHC Auto (RBC) [Mass/Vol]Or dered By: David Miramontes on 12-30-2022 MCHC (RBC) [Mass/Vol] 31.5 g/dL 32-36 [facility] No Panel InformationOrdered By: David Miramontes on 12-30-2022 Estimated GFR (MDRD) Amer 108 mL/min >60 [facility] Comment on above: GFR Calc Estimated GFR (MDRD) Non-Af Amer 90 mL/min >60 [facility] Comment on above: Non- GFR Calc Platelets bldOrdered By: Lg Miramontes on 12-30-2022 Platelets (Bld) [#/Vol] 165 10*3/uL 150-450 [facility] Serum or plasma calcium siobhan urement (mass/volume)Ordered By: David Miramontes on 12-30-2022 Calcium [Mass/Vol] 8.3 mg/dL 8.5-10.1 [facility] Serum or plasma creatinine m easurement (mass/volume)Ordered By: David Miramontes on 12-30-2022 Creatinine [Mass/Vol] 0.86 mg/dL 0.70-1.30 [facility] Comment on above: The validity of the calculated GFR & GFRAA in patients over 70 years has not been determined. Clinical correlation is essential. Serum or plasma urea nitroge n measurement (mass/volume)Ordered By: David Miramontes on 12-30-2022 Urea nitrogen [Mass/Vol] 10 mg/dL 7-18 [facility] Thin prep Papanicolaou smear with manual screeningOrdered By: David Miramontes on 12-30-2022 Thin prep Papanicolaou smear with manual screening 6 5-15 [facility] Absolute lymphocyte countOrd ered By: David Miramontes on 09-29-2022 Lymphocytes Auto (Unsp spec) [#/Vol] 1.19 10*3/uL 0.83-4.51 [facility] Basophil percentageOrdered B y: David Miramontes on 09-29-2022 Basophils/100 WBC (Bld) 0.2 % 0-1 [facility] Chloride [Moles/Vol] 109 mmol/L 98-107 [facility] Eosinophils/100 WBC (Bld) 0.1 % 0-5 [facility] Glucose [Mass/Vol] 100 mg/dL 74-106 [facility] Comment on above: Fasting Glucose resu lt from 100 to 125 mg/dL suggests IMPAIRED HOMEOSTASIS per A.D.A. criteria. Neutrophils (Bld) [#/Vol] 8.4 10*3/uL 2.0-7.7 [facility] Neutrophils/100 WBC (Bld) 80.3 % 47-70 [facility] Potassium [Moles/Vol] 4.0 mmol/L 3.5-5.1 [facility] Sodium [Moles/Vol] 141 mmol/L 136-145 [facility] WBC (Bld) [#/Vol] 10.4 10*3/uL 4.4-11.0 [facility] Blood erythrocytes count (nu mber/volume)Ordered By: David Miramontes on 09-29-2022 RBC (Bld) [#/Vol] 4.62 10*6/uL 4.6-6.2 [facility] Blood hemoglobin measurement (mass/volume)Ordered By: David Miramontes on 09-29-2022 Hemoglobin (Bld) [Mass/Vol] 14.6 g/dL 13.0-16.5 [facility] Blood lymphocytes/100 leukoc ytesOrdered By: David Miramontes on 09-29-2022 Lymphocytes/100 WBC (Bld) 11.5 % 19-41 [facility] Blood monocytes/100 leukocyt esOrdered By: David Miramontes on 09-29-2022 Monocytes/100 WBC (Bld) 7.3 % 0-10 [facility] Blood platelet mean volumeOr dered By: David Miramontes on 09-29-2022 Platelet mean volume (Bld) [Entitic vol] 11.5 fL 6.2-12.0 [facility] Determination of erythrocyte mean corpuscular volume (MCV)Ordered By: David Miramontes on 09-29-2022 MCV (RBC) [Entitic vol] 99.4 fL 80-94 [facility] Hematocrit Auto (Bld) [Volum e fraction]Ordered By: David Miramontes on 09-29-2022 Hematocrit (Bld) [Volume fraction] 45.9 % 40-54 [facility] Laboratory - Chemistry and C hemistry - challengeOrdered By: David Miramontes on 09-29-2022 CO2 [Moles/Vol] 28.0 mmol/L 21.0-32.0 [facility] Urea nitrogen/Creatinine [Mass ratio] 13.8 mg/mg 10-20 [facility] Laboratory - Hematology and Cell countsOrdered By: David Miramontes on 09-29-2022 Erythrocyte distribution width (RBC) [Entitic vol] 51.7 fL 35.1-43.9 [facility] Erythrocyte distribution width (RBC) [Ratio] 14.2 % 11.6-14.6 [facility] Immature granulocytes/100 WBC (Bld) 0.600 % 0.0-0.9 [facility] Comment on above: IG% - Immature Granu locytes (promyelocytes, myelocytes and metamyelocytes) > 1% indicates that a LEFT SHIFT is Present. MCH (RBC) [Entitic mass] 31.6 pg 27.0-32.0 [facility] Nucleated RBC/100 WBC (Bld) [Ratio] 0 % 0-5 [facility] MCHC Auto (RBC) [Mass/Vol]Or dered By: David Miramontes on 09-29-2022 MCHC (RBC) [Mass/Vol] 31.8 g/dL 32-36 [facility] No Panel InformationOrdered By: David Miramontes on 09-29-2022 Estimated GFR (MDRD) Amer 98 mL/min >60 [facility] Comment on above: GFR Calc Estimated GFR (MDRD) Non-Af Amer 81 mL/min >60 [facility] Comment on above: Non- GFR Calc Platelets bldOrdered By: Lg Miramontes on 09-29-2022 Platelets (Bld) [#/Vol] 185 10*3/uL 150-450 [facility] Serum or plasma calcium siobhan urement (mass/volume)Ordered By: David Miramontes on 09-29-2022 Calcium [Mass/Vol] 8.9 mg/dL 8.5-10.1 [facility] Serum or plasma creatinine m easurement (mass/volume)Ordered By: David Miramontes on 09-29-2022 Creatinine [Mass/Vol] 0.94 mg/dL 0.70-1.30 [facility] Comment on above: The validity of the calculated GFR & GFRAA in patients over 70 years has not been determined. Clinical correlation is essential. Serum or plasma urea nitroge n measurement (mass/volume)Ordered By: David Miramontes on 09-29-2022 Urea nitrogen [Mass/Vol] 13 mg/dL 7-18 [facility] Thin prep Papanicolaou smear with manual screeningOrdered By: David Miramontes on 09-29-2022 Thin prep Papanicolaou smear with manual screening 4 5-15 [facility] Absolute lymphocyte countOrd ered By: David Miramontes on 06-29-2022 Lymphocytes Auto (Unsp spec) [#/Vol] 1.43 10*3/uL 0.83-4.51 [facility] Basophil percentageOrdered B y: David Miramontes on 06-29-2022 Basophils/100 WBC (Bld) 0.6 % 0-1 [facility] Chloride [Moles/Vol] 107 mmol/L 98-107 [facility] Eosinophils/100 WBC (Bld) 1.5 % 0-5 [facility] Glucose [Mass/Vol] 85 mg/dL 74-106 [facility] Neutrophils (Bld) [#/Vol] 4.4 10*3/uL 2.0-7.7 [facility] Neutrophils/100 WBC (Bld) 65.4 % 47-70 [facility] Potassium [Moles/Vol] 3.6 mmol/L 3.5-5.1 [facility] Sodium [Moles/Vol] 140 mmol/L 136-145 [facility] WBC (Bld) [#/Vol] 6.7 10*3/uL 4.4-11.0 [facility] Blood erythrocytes count (nu mber/volume)Ordered By: David Miramontes on 06-29-2022 RBC (Bld) [#/Vol] 4.55 10*6/uL 4.6-6.2 [facility] Blood hemoglobin measurement (mass/volume)Ordered By: David Miramontes on 06-29-2022 Hemoglobin (Bld) [Mass/Vol] 14.5 g/dL 13.0-16.5 [facility] Blood lymphocytes/100 leukoc ytesOrdered By: David Miramontes on 06-29-2022 Lymphocytes/100 WBC (Bld) 21.5 % 19-41 [facility] Blood monocytes/100 leukocyt esOrdered By: David Miramontes on 06-29-2022 Monocytes/100 WBC (Bld) 10.7 % 0-10 [facility] Blood platelet mean volumeOr dered By: David Miramontes on 06-29-2022 Platelet mean volume (Bld) [Entitic vol] 11.2 fL 6.2-12.0 [facility] Determination of erythrocyte mean corpuscular volume (MCV)Ordered By: David Miramontes on 06-29-2022 MCV (RBC) [Entitic vol] 98.9 fL 80-94 [facility] Hematocrit Auto (Bld) [Volum e fraction]Ordered By: David Miramontes on 06-29-2022 Hematocrit (Bld) [Volume fraction] 45.0 % 40-54 [facility] Laboratory - Chemistry and C hemistry - challengeOrdered By: David Miramontes on 06-29-2022 CO2 [Moles/Vol] 30.0 mmol/L 21.0-32.0 [facility] Urea nitrogen/Creatinine [Mass ratio] 13.6 mg/mg 10-20 [facility] Laboratory - Hematology and Cell countsOrdered By: David Miramontes on 06-29-2022 Erythrocyte distribution width (RBC) [Entitic vol] 51.6 fL 35.1-43.9 [facility] Erythrocyte distribution width (RBC) [Ratio] 14.3 % 11.6-14.6 [facility] Immature granulocytes/100 WBC (Bld) 0.300 % 0.0-0.9 [facility] Comment on above: IG% - Immature Granu locytes (promyelocytes, myelocytes and metamyelocytes) > 1% indicates that a LEFT SHIFT is Present. MCH (RBC) [Entitic mass] 31.9 pg 27.0-32.0 [facility] Nucleated RBC/100 WBC (Bld) [Ratio] 0 % 0-5 [facility] MCHC Auto (RBC) [Mass/Vol]Or dered By: David Miramontes on 06-29-2022 MCHC (RBC) [Mass/Vol] 32.2 g/dL 32-36 [facility] No Panel InformationOrdered By: David Miramontes on 06-29-2022 Estimated GFR (MDRD) Amer 89 mL/min >60 [facility] Comment on above: GFR Calc Estimated GFR (MDRD) Non-Af Amer 73 mL/min >60 [facility] Comment on above: Non- GFR Calc Platelets bldOrdered By: Lg Miramontes on 06-29-2022 Platelets (Bld) [#/Vol] 161 10*3/uL 150-450 [facility] Serum or plasma calcium siobhan urement (mass/volume)Ordered By: David Miramontes on 06-29-2022 Calcium [Mass/Vol] 8.7 mg/dL 8.5-10.1 [facility] Serum or plasma creatinine m easurement (mass/volume)Ordered By: David Miramontes on 06-29-2022 Creatinine [Mass/Vol] 1.03 mg/dL 0.70-1.30 [facility] Comment on above: The validity of the calculated GFR & GFRAA in patients over 70 years has not been determined. Clinical correlation is essential. Serum or plasma urea nitroge n measurement (mass/volume)Ordered By: David Miramontes on 06-29-2022 Urea nitrogen [Mass/Vol] 14 mg/dL 7-18 [facility] Thin prep Papanicolaou smear with manual screeningOrdered By: David Miramontes on 06-29-2022 Thin prep Papanicolaou smear with manual screening 3 5-15 [facility] Absolute lymphocyte countOrd ered By: [place] Miramontes on 04-01-2022 Lymphocytes Auto (Unsp spec) [#/Vol] 1.25 10*3/uL 0.83-4.51 [facility] Basophil percentageOrdered B y: David Miramontes on 04-01-2022 Basophils/100 WBC (Bld) 0.4 % 0-1 [facility] Chloride [Moles/Vol] 108 mmol/L 98-107 [facility] Eosinophils/100 WBC (Bld) 1.5 % 0-5 [facility] Glucose [Mass/Vol] 106 mg/dL 74-106 [facility] Comment on above: Fasting Glucose resu lt from 100 to 125 mg/dL suggests IMPAIRED HOMEOSTASIS per A.D.A. criteria. Neutrophils (Bld) [#/Vol] 4.7 10*3/uL 2.0-7.7 [facility] Neutrophils/100 WBC (Bld) 69.1 % 47-70 [facility] Potassium [Moles/Vol] 3.6 mmol/L 3.5-5.1 [facility] Sodium [Moles/Vol] 143 mmol/L 136-145 [facility] WBC (Bld) [#/Vol] 6.8 10*3/uL 4.4-11.0 [facility] Blood erythrocytes count (nu mber/volume)Ordered By: David Miramontes on 04-01-2022 RBC (Bld) [#/Vol] 4.69 10*6/uL 4.6-6.2 [facility] Blood hemoglobin measurement (mass/volume)Ordered By: David Miramontes on 04-01-2022 Hemoglobin (Bld) [Mass/Vol] 14.8 g/dL 13.0-16.5 [facility] Blood lymphocytes/100 leukoc ytesOrdered By: David Miramontes on 04-01-2022 Lymphocytes/100 WBC (Bld) 18.5 % 19-41 [facility] Blood monocytes/100 leukocyt esOrdered By: danay Miramontes on 04-01-2022 Monocytes/100 WBC (Bld) 10.2 % 0-10 [facility] Blood platelet mean volumeOr dered By: danay Miramontes on 04-01-2022 Platelet mean volume (Bld) [Entitic vol] 11.5 fL 6.2-12.0 [facility] Determination of erythrocyte mean corpuscular volume (MCV)Ordered By: danay Miramontes on 04-01-2022 MCV (RBC) [Entitic vol] 97.0 fL 80-94 [facility] Hematocrit Auto (Bld) [Volum e fraction]Ordered By: David Miramontes on 04-01-2022 Hematocrit (Bld) [Volume fraction] 45.5 % 40-54 [facility] Laboratory - Chemistry and C hemistry - challengeOrdered By: danay Miramontes on 04-01-2022 CO2 [Moles/Vol] 29.0 mmol/L 21.0-32.0 [facility] Urea nitrogen/Creatinine [Mass ratio] 13.0 mg/mg 10-20 [facility] Laboratory - Hematology and Cell countsOrdered By: danay Miramontes on 04-01-2022 Erythrocyte distribution width (RBC) [Entitic vol] 51.1 fL 35.1-43.9 [facility] Erythrocyte distribution width (RBC) [Ratio] 14.4 % 11.6-14.6 [facility] Immature granulocytes/100 WBC (Bld) 0.300 % 0.0-0.9 [facility] Comment on above: IG% - Immature Granu locytes (promyelocytes, myelocytes and metamyelocytes) > 1% indicates that a LEFT SHIFT is Present. MCH (RBC) [Entitic mass] 31.6 pg 27.0-32.0 [facility] Nucleated RBC/100 WBC (Bld) [Ratio] 0 % 0-5 [facility] MCHC Auto (RBC) [Mass/Vol]Or dered By: David Miramontes on 04-01-2022 MCHC (RBC) [Mass/Vol] 32.5 g/dL 32-36 [facility] No Panel InformationOrdered By: David Miramontes on 04-01-2022 Estimated GFR (MDRD) Amer 92 mL/min >60 [facility] Comment on above: GFR Calc Estimated GFR (MDRD) Non-Af Amer 76 mL/min >60 [facility] Comment on above: Non- GFR Calc Platelets bldOrdered By: Lg Miramontes on 04-01-2022 Platelets (Bld) [#/Vol] 167 10*3/uL 150-450 [facility] Serum or plasma calcium siobhan urement (mass/volume)Ordered By: David Miramontes on 04-01-2022 Calcium [Mass/Vol] 9.1 mg/dL 8.5-10.1 [facility] Serum or plasma creatinine m easurement (mass/volume)Ordered By: David Miramontes on 04-01-2022 Creatinine [Mass/Vol] 1.00 mg/dL 0.70-1.30 [facility] Comment on above: The validity of the calculated GFR & GFRAA in patients over 70 years has not been determined. Clinical correlation is essential. Serum or plasma urea nitroge n measurement (mass/volume)Ordered By: David Miramontes on 04-01-2022 Urea nitrogen [Mass/Vol] 13 mg/dL 7-18 [facility] Thin prep Papanicolaou smear with manual screeningOrdered By: David Miramontes on 04-01-2022 Thin prep Papanicolaou smear with manual screening 6 5-15 [facility] Absolute lymphocyte countOrd ered By: Jhonny Tomas on 01-07-2022 Lymphocytes Auto (Unsp spec) [#/Vol] 1.54 10*3/uL 0.83-4.51 [facility] Basophil percentageOrdered B y: Jhonny Tomas on 01-07-2022 Basophils/100 WBC (Bld) 0.3 % 0-1 [facility] Chloride [Moles/Vol] 104 mmol/L 98-107 [facility] Eosinophils/100 WBC (Bld) 1.9 % 0-5 [facility] Glucose [Mass/Vol] 89 mg/dL 74-106 [facility] Neutrophils (Bld) [#/Vol] 4.8 10*3/uL 2.0-7.7 [facility] Neutrophils/100 WBC (Bld) 66.5 % 47-70 [facility] Potassium [Moles/Vol] 4.1 mmol/L 3.5-5.1 [facility] Sodium [Moles/Vol] 141 mmol/L 136-145 [facility] WBC (Bld) [#/Vol] 7.2 10*3/uL 4.4-11.0 [facility] Blood erythrocytes count (nu mber/volume)Ordered By: Jhonny Tomas on 01-07-2022 RBC (Bld) [#/Vol] 4.80 10*6/uL 4.6-6.2 [facility] Blood hemoglobin measurement (mass/volume)Ordered By: Jhonny Tomas on 01-07-2022 Hemoglobin (Bld) [Mass/Vol] 15.2 g/dL 13.0-16.5 [facility] Blood lymphocytes/100 leukoc ytesOrdered By: Jhonny Tomas on 01-07-2022 Lymphocytes/100 WBC (Bld) 21.3 % 19-41 [facility] Blood monocytes/100 leukocyt esOrdered By: Jhonny Tomas on 01-07-2022 Monocytes/100 WBC (Bld) 9.7 % 0-10 [facility] Blood platelet mean volumeOr dered By: Jhonny Tomas on 01-07-2022 Platelet mean volume (Bld) [Entitic vol] 11.2 fL 6.2-12.0 [facility] Determination of erythrocyte mean corpuscular volume (MCV)Ordered By: Jhonny Tomas on 01-07-2022 MCV (RBC) [Entitic vol] 97.3 fL 80-94 [facility] Hematocrit Auto (Bld) [Volum e fraction]Ordered By: Jhonny Tomas on 01-07-2022 Hematocrit (Bld) [Volume fraction] 46.7 % 40-54 [facility] Laboratory - Chemistry and C hemistry - challengeOrdered By: Jhonny Tomas on 01-07-2022 CO2 [Moles/Vol] 29.0 mmol/L 21.0-32.0 [facility] Urea nitrogen/Creatinine [Mass ratio] 11.4 mg/mg 10-20 [facility] Laboratory - Hematology and Cell countsOrdered By: Jhonny Tomas on 01-07-2022 Erythrocyte distribution width (RBC) [Entitic vol] 52.0 fL 35.1-43.9 [facility] Erythrocyte distribution width (RBC) [Ratio] 14.5 % 11.6-14.6 [facility] Immature granulocytes/100 WBC (Bld) 0.300 % 0.0-0.9 [facility] Comment on above: IG% - Immature Granu locytes (promyelocytes, myelocytes and metamyelocytes) > 1% indicates that a LEFT SHIFT is Present. MCH (RBC) [Entitic mass] 31.7 pg 27.0-32.0 [facility] Nucleated RBC/100 WBC (Bld) [Ratio] 0 % 0-5 [facility] MCHC Auto (RBC) [Mass/Vol]Or dered By: Jhonny Tomas on 01-07-2022 MCHC (RBC) [Mass/Vol] 32.5 g/dL 32-36 [facility] No Panel InformationOrdered By: Jhonny Tomas on 01-07-2022 Estimated GFR (MDRD) Amer 79 mL/min >60 [facility] Comment on above: GFR Calc Estimated GFR (MDRD) Non-Af Amer 65 mL/min >60 [facility] Comment on above: Non- GFR Calc Platelets bldOrdered By: Joao Tomas on 01-07-2022 Platelets (Bld) [#/Vol] 192 10*3/uL 150-450 [facility] Serum or plasma calcium siobhan urement (mass/volume)Ordered By: Jhonny Tomas on 01-07-2022 Calcium [Mass/Vol] 8.8 mg/dL 8.5-10.1 [facility] Serum or plasma creatinine m easurement (mass/volume)Ordered By: Jhonny Tomas on 01-07-2022 Creatinine [Mass/Vol] 1.14 mg/dL 0.70-1.30 [facility] Comment on above: The validity of the calculated GFR & GFRAA in patients over 70 years has not been determined. Clinical correlation is essential. Serum or plasma urea nitroge n measurement (mass/volume)Ordered By: Jhonny Tomas on 01-07-2022 Urea nitrogen [Mass/Vol] 13 mg/dL 7-18 [facility] Thin prep Papanicolaou smear with manual screeningOrdered By: Jhonny Tomas on 01-07-2022 Thin prep Papanicolaou smear with manual screening 8 5-15 [facility] Absolute lymphocyte countOrd ered By: Jhonny Tomas on 12-24-2021 Lymphocytes Auto (Unsp spec) [#/Vol] 1.60 10*3/uL 0.83-4.51 [facility] Basophil percentageOrdered B y: Jhonny Tomas on 12-24-2021 Basophils/100 WBC (Bld) 0.4 % 0-1 [facility] Chloride [Moles/Vol] 109 mmol/L 98-107 [facility] Eosinophils/100 WBC (Bld) 1.5 % 0-5 [facility] Glucose [Mass/Vol] 93 mg/dL 74-106 [facility] Neutrophils (Bld) [#/Vol] 4.8 10*3/uL 2.0-7.7 [facility] Neutrophils/100 WBC (Bld) 66.8 % 47-70 [facility] Potassium [Moles/Vol] 4.0 mmol/L 3.5-5.1 [facility] Comment on above: Slight Hemolysis, Re sult may be falsely increased. Sodium [Moles/Vol] 140 mmol/L 136-145 [facility] WBC (Bld) [#/Vol] 7.2 10*3/uL 4.4-11.0 [facility] Blood erythrocytes count (nu mber/volume)Ordered By: Jhonny Tomas on 12-24-2021 RBC (Bld) [#/Vol] 4.49 10*6/uL 4.6-6.2 [facility] Blood hemoglobin measurement (mass/volume)Ordered By: Jhonny Tomas on 12-24-2021 Hemoglobin (Bld) [Mass/Vol] 14.5 g/dL 13.0-16.5 [facility] Blood lymphocytes/100 leukoc ytesOrdered By: Jhonny Tomas on 12-24-2021 Lymphocytes/100 WBC (Bld) 22.2 % 19-41 [facility] Blood monocytes/100 leukocyt esOrdered By: Jhonny Tomas on 12-24-2021 Monocytes/100 WBC (Bld) 9.0 % 0-10 [facility] Blood platelet mean volumeOr dered By: Jhonny Tomas on 12-24-2021 Platelet mean volume (Bld) [Entitic vol] 11.2 fL 6.2-12.0 [facility] Determination of erythrocyte mean corpuscular volume (MCV)Ordered By: Jhonny Tomas on 12-24-2021 MCV (RBC) [Entitic vol] 97.1 fL 80-94 [facility] Hematocrit Auto (Bld) [Volum e fraction]Ordered By: Jhonny Tomas on 12-24-2021 Hematocrit (Bld) [Volume fraction] 43.6 % 40-54 [facility] Laboratory - Chemistry and C hemistry - challengeOrdered By: Jhonny Tomas on 12-24-2021 CO2 [Moles/Vol] 26.0 mmol/L 21.0-32.0 [facility] Urea nitrogen/Creatinine [Mass ratio] 14.7 mg/mg 10-20 [facility] Laboratory - Hematology and Cell countsOrdered By: Jhonny Tomas on 12-24-2021 Erythrocyte distribution width (RBC) [Entitic vol] 51.8 fL 35.1-43.9 [facility] Erythrocyte distribution width (RBC) [Ratio] 14.4 % 11.6-14.6 [facility] Immature granulocytes/100 WBC (Bld) 0.100 % 0.0-0.9 [facility] Comment on above: IG% - Immature Granu locytes (promyelocytes, myelocytes and metamyelocytes) > 1% indicates that a LEFT SHIFT is Present. MCH (RBC) [Entitic mass] 32.3 pg 27.0-32.0 [facility] Nucleated RBC/100 WBC (Bld) [Ratio] 0 % 0-5 [facility] MCHC Auto (RBC) [Mass/Vol]Or dered By: Jhonny Tomas on 12-24-2021 MCHC (RBC) [Mass/Vol] 33.3 g/dL 32-36 [facility] No Panel InformationOrdered By: Jhonny Tomas on 12-24-2021 Estimated GFR (MDRD) Amer 90 mL/min >60 [facility] Comment on above: GFR Calc Estimated GFR (MDRD) Non-Af Amer 74 mL/min >60 [facility] Comment on above: Non- GFR Calc Platelets bldOrdered By: Joao Tomas on 12-24-2021 Platelets (Bld) [#/Vol] 166 10*3/uL 150-450 [facility] Serum or plasma calcium siobhan urement (mass/volume)Ordered By: Jhonny Tomas on 12-24-2021 Calcium [Mass/Vol] 8.8 mg/dL 8.5-10.1 [facility] Serum or plasma creatinine m easurement (mass/volume)Ordered By: Jhonny Tomas on 12-24-2021 Creatinine [Mass/Vol] 1.02 mg/dL 0.70-1.30 [facility] Comment on above: The validity of the calculated GFR & GFRAA in patients over 70 years has not been determined. Clinical correlation is essential. Serum or plasma urea nitroge n measurement (mass/volume)Ordered By: Jhonny Tomas on 12-24-2021 Urea nitrogen [Mass/Vol] 15 mg/dL 7-18 [facility] Thin prep Papanicolaou smear with manual screeningOrdered By: Jhonny Tomas on 12-24-2021 Thin prep Papanicolaou smear with manual screening 5 5-15 [facility] Absolute lymphocyte counton 12-10-2021 Lymphocytes Auto (Unsp spec) [#/Vol] 1.33 10*3/uL 0.83-4.51 [facility] Work Phone: Basophil percentageon 2021 Basophils/100 WBC (Bld) 0.4 % 0-1 [facility] Work Phone: Chloride [Moles/Vol] 105 mmol/L 98-107 [facility] Work Phone: [phone] Eosinophils/100 WBC (Bld) 1.3 % 0-5 [facility] Work Phone: Glucose [Mass/Vol] 103 mg/dL 74-106 [facility] Work Phone: Comment on above: Fasting Glucose resu lt from 100 to 125 mg/dL suggests IMPAIRED HOMEOSTASIS per A.D.A. criteria. Neutrophils (Bld) [#/Vol] 4.8 10*3/uL 2.0-7.7 [facility] Work Phone: Neutrophils/100 WBC (Bld) 69.1 % 47-70 [facility] Work Phone: Potassium [Moles/Vol] 3.7 mmol/L 3.5-5.1 [facility] Work Phone: Sodium [Moles/Vol] 141 mmol/L 136-145 [facility] Work Phone: WBC (Bld) [#/Vol] 7.0 10*3/uL 4.4-11.0 [facility] Work Phone: Blood erythrocytes count (nu mber/volume)on 12-10-2021 RBC (Bld) [#/Vol] 4.88 10*6/uL 4.6-6.2 [facility] Work [facility]: Blood hemoglobin measurement (mass/volume)on 12-10-2021 Hemoglobin (Bld) [Mass/Vol] 15.5 g/dL 13.0-16.5 [facility] Work Phone: Blood lymphocytes/100 leukoc yteson 12-10-2021 Lymphocytes/100 WBC (Bld) 19.1 % 19-41 [facility] Work Phone: Blood monocytes/100 leukocyt eson 12-10-2021 Monocytes/100 WBC (Bld) 9.8 % 0-10 [facility] Work Phone: Blood platelet mean volumeon 12-10-2021 Platelet mean volume (Bld) [Entitic vol] 10.8 fL 6.2-12.0 [facility] Work Phone: Determination of erythrocyte mean corpuscular volume (MCV)on 12-10-2021 MCV (RBC) [Entitic vol] 95.9 fL 80-94 [facility] Work Phone: Hematocrit Auto (Bld) [Volum e fraction]on 12-10-2021 Hematocrit (Bld) [Volume fraction] 46.8 % 40-54 [facility] Work Phone: Laboratory - Chemistry and C hemistry - challengeon 12-10-2021 CO2 [Moles/Vol] 30.0 mmol/L 21.0-32.0 [facility] Work Phone: Urea nitrogen/Creatinine [Mass ratio] 11.3 mg/mg 10-20 [facility] Work Phone: Laboratory - Hematology and Cell countson 12-10-2021 Erythrocyte distribution width (RBC) [Entitic vol] 51.1 fL 35.1-43.9 [facility] Work Phone: Erythrocyte distribution width (RBC) [Ratio] 14.4 % 11.6-14.6 [facility] Work Phone: Immature granulocytes/100 WBC (Bld) 0.300 % 0.0-0.9 [facility] Work Phone: Comment on above: IG% - Immature Granu locytes (promyelocytes, myelocytes and metamyelocytes) > 1% indicates that a LEFT SHIFT is Present. MCH (RBC) [Entitic mass] 31.8 pg 27.0-32.0 [facility] Work Phone: Nucleated RBC/100 WBC (Bld) [Ratio] 0 % 0-5 [facility] Work Phone: MCHC Auto (RBC) [Mass/Vol]on 12-10-2021 MCHC (RBC) [Mass/Vol] 33.1 g/dL 32-36 [facility] Work Phone: No Panel Informationon 12-10 Estimated GFR (MDRD) Amer 86 mL/min >60 [facility] Work Phone: Comment on above: GFR Calc Estimated GFR (MDRD) Non-Af Amer 71 mL/min >60 [facility] Work Phone: Comment on above: Non- GFR Calc Platelets bldon 12-10-2021 Platelets (Bld) [#/Vol] 176 10*3/uL 150-450 [facility] Work Phone: Serum or plasma calcium siobhan urement (mass/volume)on 12-10-2021 Calcium [Mass/Vol] 8.9 mg/dL 8.5-10.1 [facility] Work Phone: Serum or plasma creatinine m easurement (mass/volume)on 12-10-2021 Creatinine [Mass/Vol] 1.06 mg/dL 0.70-1.30 [facility] Work Phone: Comment on above: The validity of the calculated GFR & GFRAA in patients over 70 years has not been determined. Clinical correlation is essential. Serum or plasma urea nitroge n measurement (mass/volume)on 12-10-2021 Urea nitrogen [Mass/Vol] 12 mg/dL 7-18 [facility] Work Phone: Thin prep Papanicolaou smear with manual screeningon 12-10-2021 Thin prep Papanicolaou smear with manual screening 6 5-15 [facility] Work Phone: CNPS[facility]ana [facility]-09-[facility] [employer] KEL DILLARD ([id number]) 1940 M Date Time Provider Department 12/09/21 NICOLAS CARDENAS INTMWS During your visit today, we recorded the following information about you: Ludivina Cárdenas LPN 12/09/2021 3:11 PM Signed Patient son Jhonny willis said PCP completed expert evaluation form on 09/29 for guardianship and 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 Son Jhonny said 2 weeks after form was done father had fall and was taken to [facility] then sent to [facility] for rehab. Now father is in memory care unit, his dementia is at 6 out of 7. Son is going to drop off new form to be competed, since father can not care for himself or do anything for himself. Please advise Flora Wood LPN 12/09/2021 3:27 PM Signed Form to pcp to review. Nicolas Cardenas MD 12/09/2021 4:52 PM Signed I have not seen him since hospital stay and he is now under the [place] attending physician's care. It is more appropriate for the [place] attending physician to do another form. More statements need corrected/updated Preethi Delgadillo RN 12/11/2021 2:59 PM Signed Son (hJonny) calls in and provider message reviewed. Son asking if form brought in can be picked back up in Medical Records. Please contact Jhonny at [phone]. RENETTA Rubio LPN 12/11/2021 3:41 PM Signed Forms pts son brought in have been sent to medical records. Pts son notified. He can pick them up there. Allergies As of Date: 12/09/2021 (No Known Allergies) Date Reviewed: 09/29/2021 Reviewed by: Aisha Mccullough LPN - Fully Assessed Reason for Visit: form dropping off [Other] Prescriptions as of 12/11/2021 - finasteride (PROSCAR) 5 mg tablet Take 1 tablet by mouth once daily. - terazosin (HYTRIN) 5 mg capsule Take 1 capsule by mouth daily at bedtime. - omeprazole (PRILOSEC) 20 mg capsule Take 1 capsule by mouth once daily. - CPAP - furosemide (LASIX) 40 mg tablet Take 1 tablet by mouth once daily. - ELIQUIS 5 mg tab(s) Take 5 mg by mouth twice daily. Per cardiology. - potassium chloride ER (KLOR-CON M20) 20 mEq tablet Take 20 mEq by mouth once daily. - pyridoxine hcl(VITAMIN B-6 100 MG TAB) Take one(1) tablet daily. - Docosahexanoic Acid-Eicosapent (FISH OIL) ORAL Cap Take one(1) capsule daily. 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 ELEVATED PROSTATE SPECIFIC ANTIGEN [R97.20] 03/10/2005 06/26/2014 Personal history of colonic polyps [Z86.010] 03/10/2005 06/26/2014 CHRONIC RHINITIS [J31.0] 03/10/2005 BENIGN NEOPLASM LG BOWEL [D12.6] 08/31/2006 Diverticulosis of colon (without mention of hem*08/31/2006 06/26/2014 Bladder neck obstruction [N32.0] 08/22/2007 04/22/2012 Mild memory disturbance [R41.3] 05/23/2013 12/13/2018 Essential tremor [G25.0] 05/23/2013 Occult GI bleeding [R19.5] 05/25/2013 01/18/2017 Multiple gastric ulcers [K25.9] 07/16/2016 Chronic midline low back pain without sciatica *07/19/2017 05/26/2019 Atrial fibrillation (HCC) [I48.91] 08/04/2018 SUZAN (obstructive sleep apnea) [G47.33] 08/04/2018 Gross hematuria [R31.0] 09/16/2018 12/13/2018 Obesity, Class I, BMI 30-34.9 [E66.9] 12/12/2018 Cognitive impairment [R41.89] 12/13/2018 Presence of permanent cardiac pacemaker [Z95.0] 05/26/2019 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 *09/29/2021 Encounter Status:Closed by FLORA WOOD LPN on 12/11/21 Normal [facility] Absolute lymphocyte counton 11-26-2021 Lymphocytes Auto (Unsp spec) [#/Vol] 1.47 10*3/uL 0.83-4.51 [facility] Work Phone: Basophil percentageon 2021 Basophils/100 WBC (Bld) 0.6 % 0-1 [facility] Work Phone: Chloride [Moles/Vol] 107 mmol/L 98-107 [facility] Work Phone: Eosinophils/100 WBC (Bld) 1.1 % 0-5 [facility] Work Phone: Glucose [Mass/Vol] 92 mg/dL 74-106 [facility] Work Phone: Neutrophils (Bld) [#/Vol] 6.4 10*3/uL 2.0-7.7 [facility] Work Phone: Neutrophils/100 WBC (Bld) 71.7 % 47-70 [facility] Work Phone: Potassium [Moles/Vol] 4.0 mmol/L 3.5-5.1 [facility] Work Phone: Comment on above: Slight Hemolysis, Re sult may be falsely increased. Sodium [Moles/Vol] 141 mmol/L 136-145 [facility] Work Phone: WBC (Bld) [#/Vol] 9.0 10*3/uL 4.4-11.0 [facility] Work Phone: Blood erythrocytes count (nu mber/volume)on 11-26-2021 RBC (Bld) [#/Vol] 4.81 10*6/uL 4.6-6.2 [facility] Work Phone: Blood hemoglobin measurement (mass/volume)on 11-26-2021 Hemoglobin (Bld) [Mass/Vol] 15.3 g/dL 13.0-16.5 [facility] Work Phone: Blood lymphocytes/100 leukoc yteson 11-26-2021 Lymphocytes/100 WBC (Bld) 16.4 % 19-41 [facility] Work Phone: Blood monocytes/100 leukocyt eson 11-26-2021 Monocytes/100 WBC (Bld) 9.9 % 0-10 [facility] Work Phone: Blood platelet mean volumeon 11-26-2021 Platelet mean volume (Bld) [Entitic vol] 11.2 fL 6.2-12.0 [facility] Work Phone: Determination of erythrocyte mean corpuscular volume (MCV)on 11-26-2021 MCV (RBC) [Entitic vol] 96.7 fL 80-94 [facility] Work Phone: Hematocrit Auto (Bld) [Volum e fraction]on 11-26-2021 Hematocrit (Bld) [Volume fraction] 46.5 % 40-54 [facility] Work Phone: Laboratory - Chemistry and C hemistry - challengeon 11-26-2021 CO2 [Moles/Vol] 28.0 mmol/L 21.0-32.0 [facility] Work Phone: Urea nitrogen/Creatinine [Mass ratio] 13.3 mg/mg 10-20 [facility] Work Phone: Laboratory - Hematology and Cell countson 11-26-2021 Erythrocyte distribution width (RBC) [Entitic vol] 51.9 fL 35.1-43.9 [facility] Work Phone: Erythrocyte distribution width (RBC) [Ratio] 14.5 % 11.6-14.6 [facility] Work Phone: Immature granulocytes/100 WBC (Bld) 0.300 % 0.0-0.9 [facility] Work Phone: Comment on above: IG% - Immature Granu locytes (promyelocytes, myelocytes and metamyelocytes) > 1% indicates that a LEFT SHIFT is Present. MCH (RBC) [Entitic mass] 31.8 pg 27.0-32.0 [facility] Work Phone: Nucleated RBC/100 WBC (Bld) [Ratio] 0 % 0-5 [facility] Work Phone: MCHC Auto (RBC) [Mass/Vol]on 11-26-2021 MCHC (RBC) [Mass/Vol] 32.9 g/dL 32-36 [facility] Work Phone: No Panel Informationon 11-26 Estimated GFR (MDRD) Amer 80 mL/min >60 [facility] Work Phone: Comment on above: GFR Calc Estimated GFR (MDRD) Non-Af Amer 66 mL/min >60 [facility] Work Phone: Comment on above: Non- GFR Calc Platelets bldon 11-26-2021 Platelets (Bld) [#/Vol] 181 10*3/uL 150-450 [facility] Work Phone: Serum or plasma calcium siobhan urement (mass/volume)on 11-26-2021 Calcium [Mass/Vol] 8.7 mg/dL 8.5-10.1 [facility] Work Phone: Serum or plasma creatinine m easurement (mass/volume)on 11-26-2021 Creatinine [Mass/Vol] 1.13 mg/dL 0.70-1.30 [facility] Work Phone: Comment on above: The validity of the calculated GFR & GFRAA in patients over 70 years has not been determined. Clinical correlation is essential. Serum or plasma urea nitroge n measurement (mass/volume)on 11-26-2021 Urea nitrogen [Mass/Vol] 15 mg/dL 7-18 [facility] Work Phone: Thin prep Papanicolaou smear with manual screeningon 11-26-2021 Thin prep Papanicolaou smear with manual screening 6 5-15 [facility] Work Phone: Absolute lymphocyte counton 11-12-2021 Lymphocytes Auto (Unsp spec) [#/Vol] 1.01 10*3/uL 0.83-4.51 [facility] Work Phone: Basophil percentageon 2021 Basophils/100 WBC (Bld) 0.6 % 0-1 [facility] Work Phone: Chloride [Moles/Vol] 109 mmol/L 98-107 [facility] Work Phone: Eosinophils/100 WBC (Bld) 1.1 % 0-5 [facility] Work Phone: Glucose [Mass/Vol] 89 mg/dL 74-106 [facility] Work Phone: Neutrophils (Bld) [#/Vol] 4.7 10*3/uL 2.0-7.7 [facility] Work Phone: Neutrophils/100 WBC (Bld) 72.7 % 47-70 [facility] Work Phone: Potassium [Moles/Vol] 3.9 mmol/L 3.5-5.1 [facility] Work Phone: Sodium [Moles/Vol] 142 mmol/L 136-145 [facility] Work Phone: WBC (Bld) [#/Vol] 6.5 10*3/uL 4.4-11.0 [facility] Work Phone: Blood erythrocytes count (nu mber/volume)on 11-12-2021 RBC (Bld) [#/Vol] 4.50 10*6/uL 4.6-6.2 [facility] Work Phone: Blood hemoglobin measurement (mass/volume)on 11-12-2021 Hemoglobin (Bld) [Mass/Vol] 14.4 g/dL 13.0-16.5 [facility] Work Phone: Blood lymphocytes/100 leukoc yteson 11-12-2021 Lymphocytes/100 WBC (Bld) 15.5 % 19-41 [facility] Work Phone: Blood monocytes/100 leukocyt eson 11-12-2021 Monocytes/100 WBC (Bld) 9.8 % 0-10 [facility] Work Phone: Blood platelet mean volumeon 11-12-2021 Platelet mean volume (Bld) [Entitic vol] 10.9 fL 6.2-12.0 [facility] Work Phone: Determination of erythrocyte mean corpuscular volume (MCV)on 11-12-2021 MCV (RBC) [Entitic vol] 97.3 fL 80-94 [facility] Work Phone: Hematocrit Auto (Bld) [Volum e fraction]on 11-12-2021 Hematocrit (Bld) [Volume fraction] 43.8 % 40-54 [facility] Work Phone: Laboratory - Chemistry and C hemistry - challengeon 11-12-2021 CO2 [Moles/Vol] 26.0 mmol/L 21.0-32.0 [facility] Work Phone: Urea nitrogen/Creatinine [Mass ratio] 16.4 mg/mg 10-20 [facility] Work Phone: Laboratory - Hematology and Cell countson 11-12-2021 Erythrocyte distribution width (RBC) [Entitic vol] 53.1 fL 35.1-43.9 [facility] Work Phone: Erythrocyte distribution width (RBC) [Ratio] 14.8 % 11.6-14.6 [facility] Work Phone: Immature granulocytes/100 WBC (Bld) 0.300 % 0.0-0.9 [facility] Work Phone: Comment on above: IG% - Immature Granu locytes (promyelocytes, myelocytes and metamyelocytes) > 1% indicates that a LEFT SHIFT is Present. MCH (RBC) [Entitic mass] 32.0 pg 27.0-32.0 [facility] Work Phone: Nucleated RBC/100 WBC (Bld) [Ratio] 0 % 0-5 [facility] Work Phone: MCHC Auto (RBC) [Mass/Vol]on 11-12-2021 MCHC (RBC) [Mass/Vol] 32.9 g/dL 32-36 [facility] Work Phone: No Panel Informationon 11-12 Estimated GFR (MDRD) Amer 102 mL/min >60 [facility] Work Phone: Comment on above: GFR Calc Estimated GFR (MDRD) Non-Af Amer 84 mL/min >60 [facility] Work Phone: Comment on above: Non- GFR Calc Platelets bldon 11-12-2021 Platelets (Bld) [#/Vol] 181 10*3/uL 150-450 [facility] Work Phone: Serum or plasma calcium siobhan urement (mass/volume)on 11-12-2021 Calcium [Mass/Vol] 8.7 mg/dL 8.5-10.1 [facility] Work Phone: Serum or plasma creatinine m easurement (mass/volume)on 11-12-2021 Creatinine [Mass/Vol] 0.92 mg/dL 0.70-1.30 [facility] Work Phone: Comment on above: The validity of the calculated GFR & GFRAA in patients over 70 years has not been determined. Clinical correlation is essential. Serum or plasma urea nitroge n measurement (mass/volume)on 11-12-2021 Urea nitrogen [Mass/Vol] 15 mg/dL 7-18 [facility] Work Phone: Thin prep Papanicolaou smear with manual screeningon 11-12-2021 Thin prep Papanicolaou smear with manual screening 7 5-15 [facility] Work Phone: Absolute lymphocyte counton 10-29-2021 Lymphocytes Auto (Unsp spec) [#/Vol] 0.96 10*3/uL 0.83-4.51 [facility] Work Phone: Basophil percentageon 2021 Basophils/100 WBC (Bld) 0.5 % 0-1 [facility] Work Phone: Chloride [Moles/Vol] 110 mmol/L 98-107 [facility] Work Phone: Eosinophils/100 WBC (Bld) 1.9 % 0-5 [facility] Work Phone: Glucose [Mass/Vol] 93 mg/dL 74-106 [facility] Work Phone: [phone] Neutrophils (Bld) [#/Vol] 4.5 10*3/uL 2.0-7.7 [facility] Work Phone: [phone] Neutrophils/100 WBC (Bld) 70.1 % 47-70 [facility] Work Phone: Potassium [Moles/Vol] 3.8 mmol/L 3.5-5.1 [facility] Work Phone: [phone] Sodium [Moles/Vol] 142 mmol/L 136-145 [facility] Work Phone: [phone] WBC (Bld) [#/Vol] 6.4 10*3/uL 4.4-11.0 [facility] Work Phone: Blood erythrocytes count (nu mber/volume)on 10-29-2021 RBC (Bld) [#/Vol] 4.38 10*6/uL 4.6-6.2 [facility] Work Phone: Blood hemoglobin measurement (mass/volume)on 10-29-2021 Hemoglobin (Bld) [Mass/Vol] 13.9 g/dL 13.0-16.5 [facility] Work Phone: Blood lymphocytes/100 leukoc yteson 10-29-2021 Lymphocytes/100 WBC (Bld) 15.1 % 19-41 [facility] Work Phone: Blood monocytes/100 leukocyt eson 10-29-2021 Monocytes/100 WBC (Bld) 12.1 % 0-10 [facility] Work Phone: Blood platelet mean volumeon 10-29-2021 Platelet mean volume (Bld) [Entitic vol] 11.2 fL 6.2-12.0 [facility] Work Phone: Determination of erythrocyte mean corpuscular volume (MCV)on 10-29-2021 MCV (RBC) [Entitic vol] 96.8 fL 80-94 [facility] Work Phone: Hematocrit Auto (Bld) [Volum e fraction]on 10-29-2021 Hematocrit (Bld) [Volume fraction] 42.4 % 40-54 [facility] Work Phone: Laboratory - Chemistry and C hemistry - challengeon 10-29-2021 CO2 [Moles/Vol] 27.0 mmol/L 21.0-32.0 [facility] Work Phone: Urea nitrogen/Creatinine [Mass ratio] 11.1 mg/mg 10-20 [facility] Work Phone: Laboratory - Hematology and Cell countson 10-29-2021 Erythrocyte distribution width (RBC) [Entitic vol] 52.1 fL 35.1-43.9 [facility] Work Phone: Erythrocyte distribution width (RBC) [Ratio] 14.6 % 11.6-14.6 [facility] Work Phone: Immature granulocytes/100 WBC (Bld) 0.300 % 0.0-0.9 [facility] Work Phone: Comment on above: IG% - Immature Granu locytes (promyelocytes, myelocytes and metamyelocytes) > 1% indicates that a LEFT SHIFT is Present. MCH (RBC) [Entitic mass] 31.7 pg 27.0-32.0 [facility] Work Phone: Nucleated RBC/100 WBC (Bld) [Ratio] 0 % 0-5 [facility] Work Phone: MCHC Auto (RBC) [Mass/Vol]on 10-29-2021 MCHC (RBC) [Mass/Vol] 32.8 g/dL 32-36 [facility] Work Phone: No Panel Informationon 10-29 Estimated GFR (MDRD) Amer 84 mL/min >60 [facility] Work Phone: Comment on above: GFR Calc Estimated GFR (MDRD) Non-Af Amer 70 mL/min >60 [facility] Work Phone: Comment on above: Non- GFR Calc Platelets bldon 10-29-2021 Platelets (Bld) [#/Vol] 187 10*3/uL 150-450 [facility] Work Phone: Serum or plasma calcium siobhan urement (mass/volume)on 10-29-2021 Calcium [Mass/Vol] 8.8 mg/dL 8.5-10.1 [facility] Work Phone: Serum or plasma creatinine m easurement (mass/volume)on 10-29-2021 Creatinine [Mass/Vol] 1.08 mg/dL 0.70-1.30 [facility] Work Phone: Comment on above: The validity of the calculated GFR & GFRAA in patients over 70 years has not been determined. Clinical correlation is essential. Serum or plasma urea nitroge n measurement (mass/volume)on 10-29-2021 Urea nitrogen [Mass/Vol] 12 mg/dL 7-18 [facility] Work Phone: Thin prep Papanicolaou smear with manual screeningon 10-29-2021 Thin prep Papanicolaou smear with manual screening 5 5-15 [facility] Work Phone: Sera 10-23-2021 [facility] Telephone ([employer]) KEL DILLARD ([id number]) 1940 M Date Time Provider Department 10/23/21 NICOLAS CARDENAS INTWS During your visit today, we recorded the following information about you: Flora Anshu HEIN 10/23/2021 11:54 AM Signed Per [facility] discharge info pt was discharged to [facility] 10/22/21. Allergies As of Date: 10/23/2021 (No Known Allergies) Date Reviewed: 09/29/2021 Reviewed by: Aisha Mccullough LPN - Fully Assessed Reason for Visit: Patient Update [[id number]] Prescriptions as of 10/23/2021 - finasteride (PROSCAR) 5 mg tablet Take 1 tablet by mouth once daily. - terazosin (HYTRIN) 5 mg capsule Take 1 capsule by mouth daily at bedtime. - omeprazole (PRILOSEC) 20 mg capsule Take 1 capsule by mouth once daily. - CPAP - furosemide (LASIX) 40 mg tablet Take 1 tablet by mouth once daily. - ELIQUIS 5 mg tab(s) Take 5 mg by mouth twice daily. Per cardiology. - potassium chloride ER (KLOR-CON M20) 20 mEq tablet Take 20 mEq by mouth once daily. - pyridoxine hcl(VITAMIN B-6 100 MG TAB) Take one(1) tablet daily. - Docosahexanoic Acid-Eicosapent (FISH OIL) ORAL Cap Take one(1) capsule daily. 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/2005 ELEVATED PROSTATE SPECIFIC ANTIGEN [R97.20] 03/10/2005 06/26/2014 Personal history of colonic polyps [Z86.010] 03/10/2005 06/26/2014 CHRONIC RHINITIS [J31.0] 03/10/2005 BENIGN NEOPLASM LG BOWEL [D12.6] 08/31/2006 Diverticulosis of colon (without mention of hem*08/31/2006 06/26/2014 Bladder neck obstruction [N32.0] 08/22/2007 04/22/2012 Mild memory disturbance [R41.3] 05/23/2013 12/13/2018 Essential tremor [G25.0] 05/23/2013 Occult GI bleeding [R19.5] 05/25/2013 01/18/2017 Multiple gastric ulcers [K25.9] 07/16/2016 Chronic midline low back pain without sciatica *07/19/2017 05/26/2019 Atrial fibrillation (HCC) [I48.91] 08/04/2018 SUZAN (obstructive sleep apnea) [G47.33] 08/04/2018 Gross hematuria [R31.0] 09/16/2018 12/13/2018 Obesity, Class I, BMI 30-34.9 [E66.9] 12/12/2018 Cognitive impairment [R41.89] 12/13/2018 Presence of permanent cardiac pacemaker [Z95.0] 05/26/2019 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 *09/29/2021 Encounter Status:Closed by FLORA WOOD LPN on 10/23/21 Normal [facility] Laboratory - Chemistry and C hemistry - challengeon 10-22-2021 CK [Catalytic activity/Vol] 1616 U/L 39-308 [facility] Work Phone: Absolute lymphocyte counton 10-21-2021 Lymphocytes Auto (Unsp spec) [#/Vol] 0.75 10*3/uL 0.83-4.51 [facility] Work Phone: [phone] Basophil percentageon 2021 Basophils/100 WBC (Bld) 0.1 % 0-1 [facility] Work Phone: [phone] Chloride [Moles/Vol] 107 mmol/L 98-107 [facility] Work Phone: [phone] Eosinophils/100 WBC (Bld) 0.0 % 0-5 [facility] Work Phone: [phone] Glucose [Mass/Vol] 144 mg/dL 74-106 [facility] Work Phone: Comment on above: Fasting Glucose resu lt greater than or equal to 126 mg/dL suggests DIABETES MELLITUS per A.D.A. criteria. Neutrophils (Bld) [#/Vol] 11.4 10*3/uL 2.0-7.7 [facility] Work Phone: [phone] Neutrophils/100 WBC (Bld) 85.4 % 47-70 [facility] Work Phone: [phone] Potassium [Moles/Vol] 3.7 mmol/L 3.5-5.1 [facility] Work Phone: [phone] Sodium [Moles/Vol] 141 mmol/L 136-145 [facility] Work Phone: [phone] WBC (Bld) [#/Vol] 13.4 10*3/uL 4.4-11.0 [facility] Work Phone: Blood erythrocytes count (nu mber/volume)on 10-21-2021 RBC (Bld) [#/Vol] 5.04 10*6/uL 4.6-6.2 [facility]: Blood hemoglobin measurement (mass/volume)on 10-21-2021 Hemoglobin (Bld) [Mass/Vol] 15.7 g/dL 13.0-16.5 [facility] Work Phone: Blood lymphocytes/100 leukoc yteson 10-21-2021 Lymphocytes/100 WBC (Bld) 5.6 % 19-41 [facility] Work Phone: Blood monocytes/100 leukocyt eson 10-21-2021 Monocytes/100 WBC (Bld) 8.5 % 0-10 [facility] Work Phone: Blood platelet mean volumeon 10-21-2021 Platelet mean volume (Bld) [Entitic vol] 11.2 fL 6.2-12.0 [facility] Work Phone: Determination of erythrocyte mean corpuscular volume (MCV)on 10-21-2021 MCV (RBC) [Entitic vol] 93.8 fL 80-94 [facility] Work Phone: Hematocrit Auto (Bld) [Volum e fraction]on 10-21-2021 Hematocrit (Bld) [Volume fraction] 47.3 % 40-54 [facility] Work Phone: Laboratory - Chemistry and C hemistry - challengeon 10-21-2021 CO2 [Moles/Vol] 26.0 mmol/L 21.0-32.0 [facility] Work Phone: Urea nitrogen/Creatinine [Mass ratio] 14.2 mg/mg 10-20 [facility] Work Phone: Laboratory - Hematology and Cell countson 10-21-2021 Erythrocyte distribution width (RBC) [Entitic vol] 50.5 fL 35.1-43.9 [facility] Work Phone: Erythrocyte distribution width (RBC) [Ratio] 14.7 % 11.6-14.6 [facility] Work Phone: Immature granulocytes/100 WBC (Bld) 0.400 % 0.0-0.9 [facility] Work Phone: Comment on above: IG% - Immature Granu locytes (promyelocytes, myelocytes and metamyelocytes) > 1% indicates that a LEFT SHIFT is Present. MCH (RBC) [Entitic mass] 31.2 pg 27.0-32.0 [facility] Work Phone: Nucleated RBC/100 WBC (Bld) [Ratio] 0 % 0-5 [facility] Work Phone: MCHC Auto (RBC) [Mass/Vol]on 10-21-2021 MCHC (RBC) [Mass/Vol] 33.2 g/dL 32-36 [facility] Work Phone: No Panel Informationon 10-21 Estimated Creatinine Clearance Calc 48.76 ml/min [facility] Work Phone: Estimated GFR (MDRD) Amer 80 mL/min >60 [facility] Work Phone: Comment on above: GFR Calc Estimated GFR (MDRD) Non-Af Amer 66 mL/min >60 [facility] Work Phone: Comment on above: Non- GFR Calc Thyroid Stimulating Hormone (TSH) 1.56 uIU/mL 0.358-3.74 [facility] Work Phone: Vitamin D 25-Hydroxy 10.8 ng/mL [facility] Work Phone: Comment on above: Vitamin D 25(OH) Sta tus Range Deficiency <20 ng/mL (50nmol/L) Insufficiency 20 - 30 ng/mL (50 - 75 nmol/L) Sufficiency 30 - 100 ng/mL (75 - 250 nmol/L) Toxicity >100 ng/mL (>250 nmol/L) Platelets bldon 10-21-2021 Platelets (Bld) [#/Vol] 219 10*3/uL 150-450 [facility] Work Phone: Serum or plasma calcium siobhan urement (mass/volume)on 10-21-2021 Calcium [Mass/Vol] 9.1 mg/dL 8.5-10.1 [facility] Work Phone: Serum or plasma creatinine m easurement (mass/volume)on 10-21-2021 Creatinine [Mass/Vol] 1.13 mg/dL 0.70-1.30 [facility] Work Phone: Comment on above: The validity of the calculated GFR & GFRAA in patients over 70 years has not been determined. Clinical correlation is essential. Serum or plasma urea nitroge n measurement (mass/volume)on 10-21-2021 Urea nitrogen [Mass/Vol] 16 mg/dL 7-18 [facility] Work Phone: Thin prep Papanicolaou smear with manual screeningon 10-21-2021 Thin prep Papanicolaou smear with manual screening 8 5-15 [facility] Work Phone: Absolute lymphocyte counton 10-20-2021 Lymphocytes Auto (Unsp spec) [#/Vol] 0.59 10*3/uL 0.83-4.51 [facility] Work Phone: Basophil percentageon 2021 Basophil percentage 5-10 SEEN /hpf 0-5 [facility] Work Phone: [phone] Basophils/100 WBC (Bld) 0.1 % 0-1 [facility] Work Phone: Chloride [Moles/Vol] 107 mmol/L 98-107 [facility] Work Phone: Eosinophils/100 WBC (Bld) 0.0 % 0-5 [facility] Work Phone: Glucose [Mass/Vol] 110 mg/dL 74-106 [facility] Work Phone: Comment on above: Fasting Glucose resu lt from 100 to 125 mg/dL suggests IMPAIRED HOMEOSTASIS per A.D.A. criteria. Neutrophils (Bld) [#/Vol] 11.6 10*3/uL 2.0-7.7 [facility] Work Phone: Neutrophils/100 WBC (Bld) 85.8 % 47-70 [facility] Work Phone: Potassium [Moles/Vol] 3.6 mmol/L 3.5-5.1 [facility] Work Phone: Sodium [Moles/Vol] 141 mmol/L 136-145 [facility] Work Phone: WBC (Bld) [#/Vol] 13.5 10*3/uL 4.4-11.0 [facility] Work Phone: Bilirubin Test strip Ql (U)o n 10-20-2021 Bilirubin Ql (U) Negative Negative [facility] Work Phone: Blood erythrocytes count (nu mber/volume)on 10-20-2021 RBC (Bld) [#/Vol] 5.14 10*6/uL 4.6-6.2 [facility] Work Phone: Blood hemoglobin measurement (mass/volume)on 10-20-2021 Hemoglobin (Bld) [Mass/Vol] 15.9 g/dL 13.0-16.5 [facility] Work Phone: Blood lymphocytes/100 leukoc yteson 10-20-2021 Lymphocytes/100 WBC (Bld) 4.4 % 19-41 [facility] Work Phone: Blood manual differential co mment interpretation (narrative result)on 10-20-2021 Manual differential comment Wei (Bld) [Interp] SEE COMMENT [facility] Work Phone: Comment on above: LYMPHOPENIA NOTED Blood monocytes/100 leukocyt eson 10-20-2021 Monocytes/100 WBC (Bld) 9.0 % 0-10 [facility] Work Phone: Blood platelet adequacy dete ction by light microscopyon 10-20-2021 Platelets LM Ql (Bld) ADEQUATE ADEQ [facility] Work Phone: Blood platelet mean volumeon 10-20-2021 Platelet mean volume (Bld) [Entitic vol] 10.4 fL 6.2-12.0 [facility] Work Phone: Determination of erythrocyte mean corpuscular volume (MCV)on 10-20-2021 MCV (RBC) [Entitic vol] 92.8 fL 80-94 [facility] Work Phone: Hematocrit Auto (Bld) [Volum e fraction]on 10-20-2021 Hematocrit (Bld) [Volume fraction] 47.7 % 40-54 [facility] Work Phone: Hyaline casts LM.LPF (Urine sed) [#/Area]on 10-20-2021 Hyaline casts (Urine sed) [#/Area] 0 /[LPF] 0-5 [facility] Work Phone: Ketones Test strip Ql (U)on 10-20-2021 Ketones Ql (U) 50 mg/dl Negative [facility] Work Phone: Laboratory - Chemistry and C hemistry - challengeon 10-20-2021 CO2 [Moles/Vol] 25.0 mmol/L 21.0-32.0 [facility] Work Phone: Urea nitrogen/Creatinine [Mass ratio] 15.0 mg/mg 10-20 [facility] Work Phone: Laboratory - Hematology and Cell countson 10-20-2021 Anisocytosis Ql (Bld) RARE [facility] Work Phone: Erythrocyte distribution width (RBC) [Entitic vol] 48.4 fL 35.1-43.9 [facility] Work Phone: Erythrocyte distribution width (RBC) [Ratio] 14.4 % 11.6-14.6 [facility] Work Phone: Immature granulocytes/100 WBC (Bld) 0.700 % 0.0-0.9 [facility] Work Phone: Comment on above: IG% - Immature Granu locytes (promyelocytes, myelocytes and metamyelocytes) > 1% indicates that a LEFT SHIFT is Present. MCH (RBC) [Entitic mass] 30.9 pg 27.0-32.0 [facility] Work Phone: Nucleated RBC/100 WBC (Bld) [Ratio] 0 % 0-5 [facility] Work Phone: MCHC Auto (RBC) [Mass/Vol]on 10-20-2021 MCHC (RBC) [Mass/Vol] 33.3 g/dL 32-36 [facility] Work Phone: Macrocytes detectionon 10-20 Macrocytes Ql (Bld) RARE [facility] Work Phone: Mucus LM Ql (Urine sed)on Mucus Ql (Urine sed) 0 SEEN /hpf [facility] Work Phone: Nitrite Test strip Ql (U)on 10-20-2021 Nitrite Ql (U) Negative Negative [facility] Work Phone: No Panel Informationon 10-20 Estimated Creatinine Clearance Calc 53.23 ml/min [facility] Work Phone: Estimated GFR (MDRD) Amer 85 mL/min >60 [facility] Work Phone: Comment on above: GFR Calc Estimated GFR (MDRD) Non-Af Amer 70 mL/min >60 [facility] Work Phone: Comment on above: Non- GFR Calc Platelets bldon 10-20-2021 Platelets (Bld) [#/Vol] 198 10*3/uL 150-450 [facility] Work Phone: Protein Test strip Ql (U)on 10-20-2021 Protein Ql (U) 30 mg/dl Negative [facility] Work Phone: RBC morphologyon 10-20-2021 RBC morphology finding Nom (Bld) N CHROM NORMAL NORM C&C [facility] Work Phone: Serum or plasma calcium siobhan urement (mass/volume)on 10-20-2021 Calcium [Mass/Vol] 9.1 mg/dL 8.5-10.1 [facility] Work Phone: Serum or plasma creatinine m easurement (mass/volume)on 10-20-2021 Creatinine [Mass/Vol] 1.07 mg/dL 0.70-1.30 [facility] Work Phone: Comment on above: The validity of the calculated GFR & GFRAA in patients over 70 years has not been determined. Clinical correlation is essential. Serum or plasma urea nitroge n measurement (mass/volume)on 10-20-2021 Urea nitrogen [Mass/Vol] 16 mg/dL 7-18 [facility] Work Phone: Squamous epithelial cells de tection in urine sediment by light microscopyon 10-20-2021 Epithelial cells.squamous LM Ql (Urine sed) 0 SEEN /hpf 0-5 [facility] Work Phone: Thin prep Papanicolaou smear with manual screeningon 10-20-2021 Thin prep Papanicolaou smear with manual screening 9 5-15 [facility] Work Phone: Urine blood detectionon 09-30 RBC Ql (U) 250 /ul Negative [facility] Work Phone: RBC Ql (U) 0 SEEN /hpf 0-5 [facility] Work Phone: Urine clarityon 10-20-2021 Clarity (U) Sl. Cloudy Clear [facility] Work Phone: Urine color determinationon 10-20-2021 Color (U) Kristina Yellow [facility] Work Phone: Urine glucose detectionon Glucose Ql (U) Normal mg/dl Normal [facility] Work Phone: Urine leukocyte esterase det ection by dipstickon 10-20-2021 Leukocyte esterase Test strip Ql (U) 25 /ul Negative [facility] Work Phone: Urine pHon 10-20-2021 pH (U) 5.0 [pH] 5.0 - 8.0 [facility] Work Phone: Urine sediment bacteria coun t by microscopy (number/high power field)on 10-20-2021 Bacteria LM.HPF (Urine sed) [#/Area] 1 /[HPF] None Seen [facility] Work Phone: Urine specific gravity measu rementon 10-20-2021 Specific gravity (U) [Rel density] 1.025 1.002-1.030 [facility] Work Phone: Urobilinogen Auto test strip Ql (U)on 10-20-2021 Urobilinogen Ql (U) 1 mg/dl Normal [facility] Work Phone: CNOVon 09-29-2021 CNOV Office Visit (INTMWS) KEL DILLARD ([id number]) 1940 M Date Time Provider Department 09/29/21 4:40 PM NICOLAS CARDENAS INTMWS During your visit today, we recorded the following information about you: Temperature Pulse Respiration Blood pressure Normal [facility] Sera 07-15-2021 JARAD Telephone (INTMWS) GILMAKEL ([id number]) 1940 M Date Time Provider Department 07/15/21 NICOLAS CARDENAS During your visit today, we recorded the following information about you: Karen Matias RN 07/15/2021 1:40 PM Signed Yesenia, Admissions staff member at [facility] calling to state patient's son Jhonny has reached out to them to request patient possibly be admitted into their memory care unit due to cognition concerns. Yesenia is requesting notes from patient's last OV be faxed to them at [phone]. This nurse contacted son Jhonny to verify the request and he confirmed it was ok to share requested information. Information faxed as requested. Karen Matias RN Allergies As of Date: 07/15/2021 (No Known Allergies) Date Reviewed: 05/12/2021 Reviewed by: Dori Martines APRN.WELL TESTING OPERATOR - Fully Assessed Reason for Visit: fax request [Other] Prescriptions as of 07/15/2021 - finasteride (PROSCAR) 5 mg tablet Take 1 tablet by mouth once daily. - terazosin (HYTRIN) 5 mg capsule Take 1 capsule by mouth daily at bedtime. - omeprazole (PRILOSEC) 20 mg capsule Take 1 capsule by mouth once daily. - CPAP - furosemide (LASIX) 40 mg tablet Take 1 tablet by mouth once daily. - ELIQUIS 5 mg tab(s) Take 5 mg by mouth twice daily. Per cardiology. - potassium chloride ER (KLOR-CON M20) 20 mEq tablet Take 20 mEq by mouth once daily. - pyridoxine hcl(VITAMIN B-6 100 MG TAB) Take one(1) tablet daily. - Docosahexanoic Acid-Eicosapent (FISH OIL) ORAL Cap Take one(1) capsule daily. 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/10/2005 ELEVATED PROSTATE SPECIFIC ANTIGEN [R97.20] 03/10/2005 06/26/2014 Personal history of colonic polyps [Z86.010] 03/10/2005 06/26/2014 CHRONIC RHINITIS [J31.0] 03/10/2005 BENIGN NEOPLASM LG BOWEL [D12.6] 08/31/2006 Diverticulosis of colon (without mention of hem*08/31/2006 06/26/2014 Bladder neck obstruction [N32.0] 08/22/2007 04/22/2012 Mild memory disturbance [R41.3] 05/23/2013 12/13/2018 Essential tremor [G25.0] 05/23/2013 Occult GI bleeding [R19.5] 05/25/2013 01/18/2017 Multiple gastric ulcers [K25.9] 07/16/2016 Chronic midline low back pain without sciatica *07/19/2017 05/26/2019 Atrial fibrillation (HCC) [I48.91] 08/04/2018 SUZAN (obstructive sleep apnea) [G47.33] 08/04/2018 Gross hematuria [R31.0] 09/16/2018 12/13/2018 Obesity, Class I, BMI 30-34.9 [E66.9] 12/12/2018 Cognitive impairment [R41.89] 12/13/2018 Presence of permanent cardiac pacemaker [Z95.0] 05/26/2019 Encounter Status:Closed by KAREN MATIAS on 07/15/21 Normal [facility] Culture, urine Bacteria identified Cx Nom (U) Positive [facility] Work Phone: Vital Signs Date Time Vital Sign Value Performing Clinician Nuzhati jam 12-02-2022 10:40-0400 Body height 175.[address] Nicolas Cardenas Work Phone: [facility] 04-02-2022 14:41-0500 Body height 175.[address] Nicolas Cardenas Work Phone: [facility] 10-22-2021 08:30-0400 Body temperature 98.2 [degF] Dr. Nicolas Cardenas Work Phone: [facility] Work Phone: 10-22-2021 08:30-0400 Diastolic blood pressure 71 mm[Hg] Dr. Nicolas Cardenas Work Phone: [facility] Work Phone: 10-22-2021 08:30-0400 Heart rate 59 /min Dr. Nicolas Cardenas Work Phone: [facility] Work Phone: 10-22-2021 08:30-0400 Respiratory rate 16 /min Dr. Nicolas Cardenas Work Phone: [facility] Work Phone: 10-22-2021 08:30-0400 SaO2% (BldA) [Mass fraction] 95 % Dr. Nicolas Cardenas Work Phone: [facility] Work Phone: 10-22-2021 08:30-0400 Systolic blood pressure 125 mm[Hg] Dr. Nicolas Cardenas Work Phone: [facility] Work Phone: 10-21-2021 01:00-0400 Body height 175.[address] Nicolas Cardenas Work Phone: [facility] Work Phone: 10-21-2021 01:00-0400 Body mass index (BMI) [Ratio] 28.1 kg/m2 Dr. Nicolas Cardenas Work Phone: [facility] Work Phone: 10-21-2021 01:00-0400 Body weight 86.[address] Nicolas Cardenas Work Phone: [facility] Work Phone: 10-21-2021 00:46-0400 Body temperature 97.9 [degF] Dr. Nicolas Cardenas Work Phone: [facility] Work Phone: 10-21-2021 00:46-0400 Diastolic blood pressure 74 mm[Hg] Dr. Nicolas Cardenas Work Phone: [facility] Work Phone: 10-21-2021 00:46-0400 Heart rate 60 /min Dr. Nicolas Cardenas Work Phone: [facility] Work Phone: 10-21-2021 00:46-0400 Respiratory rate 25 /min Dr. Nicolas Cardenas Work Phone: [facility] Work Phone: 10-21-2021 00:46-0400 SaO2% (BldA) [Mass fraction] 94 % Dr. Nicolas Cardenas Work Phone: [facility] Work Phone: 10-21-2021 00:46-0400 Systolic blood pressure 115 mm[Hg] Dr. Nicolas Cardenas Work Phone: [facility] Work Phone: 10-20-2021 20:20-0400 Body height 175.[address] Nicolas Cardenas Work Phone: [facility] Work Phone: 10-20-2021 20:20-0400 Body mass index (BMI) [Ratio] 28.6 kg/m2 Dr. Nicolas Cardenas Work Phone: [facility] Work Phone: 10-20-2021 20:20-0400 Body weight 87.[address] Nicolas Cardenas Work Phone: [facility] Work Phone: 09-29-2021 16:45-0400 Body height 165.7 cm Nicolas Cardenas MD Work Phone: [facility] 09-29-2021 16:45-0400 Body temperature 97.3 [degF] Nicolas Cardenas MD Work Phone: [facility] 09-29-2021 16:45-0400 Body weight 87.09 kg Nicolas Cardenas MD Work Phone: [facility] 09-29-2021 16:45-0400 Diastolic blood pressure 76 mm[Hg] Nicolas Cardenas MD Work Phone: [facility] 09-29-2021 16:45-0400 Heart rate 60 /min Nicolas Cardenas MD Work Phone: [facility] 09-29-2021 16:45-0400 Respiratory rate 16 /min Nicolas Cardenas MD Work Phone: [facility] 09-29-2021 16:45-0400 Systolic blood pressure 130 mm[Hg] Nicolas Cardenas MD Work Phone: [facility] Encounters Encounter Date Encounter Type Care Provider Facility Start: 08-02-2024 ambulatory David GARCIA Fa cility:[facility] Start: 08-01-2024 ambulatory David GARCIA Fa cility:[facility] Start: 07-21-2024 ambulatory David GARCIA Fa cility:[facility] Start: 07-17-2024 End: 07-17-2024 Follow-up encounter Diana Arango APRN.WELL TESTING OPERATOR Work Phone: [facility] Comment on above: Results Start: 07-14-2024 End: 07-14-2024 Office outpatient new 30 minutes Diana Arango [employer]ER.WELL TESTING OPERATOR Work Phone: [facility] Comment on above: Gross hematuria (Lies wallace Dx) Start: 07-14-2024 End: 07-14-2024 ambulatory DIANA GOODENHWAMARGE Facility:[facility] Start: 06-23-2024 End: 06-23-[address] David Miramontes MD Work Phone: [facility] Work Phone: Start: 06-23-2024 End: 06-23-2024 Departed Referred David Miramontes MD [facility] Start: 06-23-2024 End: 06-23-2024 ambulatory David GARCIA Facility:[facility] Start: 06-05-2024 End: 06-05-[address] David Miramontes MD Work Phone: [facility] Work Phone: Start: 06-05-2024 End: 06-05-2024 [facility] Start: 06-05-2024 Registered Referred David AdamKrystle Piyush Start: 06-05-2024 End: 06-05-2024 ambulatory David GARCIA Facility:[facility] Start: 05-30-2024 ambulatory David GARCIA Fa cility:[facility] Start: 05-30-2024 Non-patient / Non-visit Dr. Josiah Klein MD -[facility] Start: 05-30-2024 End: 05-30-[address] David Miramontes MD -[facility] Work Phone: Start: 05-30-2024 End: 05-30-2024 ambulatory Marimar Zimmer NP Facility:[facility] Start: 05-30-2024 End: 05-30-[address] David Miramontes MD Work Phone: [facility] Work Phone: Start: 05-30-2024 End: 05-30-2024 Departed Referred David AdamKrystle Pickett Start: 05-30-2024 Registered Referred David AdamKrystle Piyush Start: 05-30-2024 End: 05-30-2024 ambulatory David Miramontes Facility:[facility] Start: 05-23-2024 End: 05-23-2024 ambulatory Efdanay Miramontes Facility:[facility] Start: 05-23-2024 End: 05-23-[address] David Miramontes MD -[facility] Work Phone: Start: 05-22-2024 End: 05-22-[address] David Miramontes MD Work Phone: [facility] Work Phone: Start: 05-22-2024 End: 05-22-2024 [facility] Start: 05-22-2024 Registered Referred David AdamKrystle Piyush Start: 05-22-2024 End: 05-22-[address] Edson Quinn MD -[facility] Work Phone: Start: 05-22-2024 End: 05-22-2024 ambulatory Edson Quinn Facility:[facility] Start: 05-18-2024 End: 05-18-2024 ambulatory Marimar Zimmer DRY WALL APPLICATOR Facility:[facility] Start: 05-18-2024 End: 05-18-2024 Patient encounter procedure Marimar Zimmer DRY WALL APPLICATOR-C -[facility] Work Phone: Start: 05-13-2024 End: 05-13-2024 ambulatory Edson Kai Facility:[facility] Start: 05-13-2024 End: 05-13-[address] Edson Quinn MD -[facility] Work Phone: Start: 05-11-2024 End: 05-11-2024 ambulatory Marimar Zimmer DRY WALL APPLICATOR Facility:[facility] Start: 05-11-2024 End: 05-11-2024 Patient encounter procedure Marimar Zimmer DRY WALL APPLICATOR-C -[facility] Work Phone: Start: 05-01-2024 End: 05-01-2024 ambulatory Marimar Zimmer DRY WALL APPLICATOR Facility:[facility] Start: 05-01-2024 End: 05-01-2024 Patient encounter procedure Marimar Zimmer DRY WALL APPLICATOR-C -[facility] Work Phone: Start: 04-19-2024 End: 04-19-2024 ambulatory Marimar Zimmer DRY WALL APPLICATOR Facility:[facility] Start: 04-19-2024 End: 04-19-2024 Patient encounter procedure Marimar Zimmer DRY WALL APPLICATOR-C -[facility] Work Phone: Start: 04-17-2024 ambulatory David Miramontes OLS Fa cility:[facility] Start: 04-17-2024 [facility] Start: 04-13-2024 ambulatory Frandycarleen Miramontes OLS Fa cility:[facility] Start: 04-13-2024 [facility] Start: 04-11-2024 End: 04-11-2024 ambulatory David Miramontes Facility:[facility] Start: 04-11-2024 End: 04-11-[address] [facility] Start: 04-07-2024 ambulatory Frandycarleen Charlietereza OLS Fa cility:[facility] Start: 04-07-[address] [facility] Start: 04-04-2024 ambulatory Frandycarleen Miramontes OLS Fa cility:[facility] Start: 04-04-2024 Registered Referred [facility] Start: 03-13-2024 End: 03-13-2024 ambulatory Marimar Zimmer NP Facility:[facility] Start: 03-13-2024 End: 03-13-2024 Patient encounter procedure Marimar Zimmer NP-[facility] -[facility] Work Phone: Start: 03-02-2024 End: 03-02-2024 ambulatory Isidro Kennedy Facility:[facility] Start: 03-02-2024 End: 03-02-2024 Patient encounter procedure Isidro HOOD -[facility] Work Phone: Start: 02-15-2024 End: 02-15-2024 ambulatory David Miramontes Facility:[facility] Start: 02-15-2024 End: 02-15-[address] [facility] Start: 02-14-2024 End: 02-14-2024 ambulatory Edson Quinn Facility:[facility] Start: 02-14-2024 End: 02-14-[address] Edson Quinn MD -[facility] Work Phone: Start: 02-03-2024 ambulatory Efewongbe Oleamnae OLS Fa cility:[facility] Start: 01-12-2024 End: 01-12-2024 ambulatory Marimar Zimmer DRY WALL APPLICATOR Facility:[facility] Start: 01-04-2024 ambulatory Efewongbe Oleghe OLS Fa cility:[facility] Start: 12-28-2023 End: 12-28-2023 ambulatory [place] Kai Facility:[facility] Start: 12-07-2023 End: 12-07-2023 ambulatory Efewongbe Oleghe Facility:[facility] Start: 11-15-2023 End: 11-15-2023 ambulatory Kyung Ferullo Facility:[facility] Start: 11-08-2023 End: 11-08-2023 ambulatory Edson Kai Facility:[facility] Start: 10-27-2023 End: 10-27-2023 ambulatory Marimar Zimmer DRY WALL APPLICATOR Facility:[facility] Start: 10-05-2023 End: 10-05-2023 ambulatory Efewongbe Oleghe Facility:[facility] Start: 10-05-2023 End: 10-05-2023 ambulatory Efewongbe Oleghe OLS Facility:[facility] Start: 09-27-2023 End: 09-27-2023 ambulatory Edson Kai Facility:[facility] Start: 09-27-2023 End: 09-27-2023 ambulatory Efewongbe Oleghe OLS Facility:[facility] Start: 09-06-2023 End: 09-06-2023 ambulatory Kyung Ferullo Facility:[facility] Start: 04-06-2023 End: 04-06-[address] Nicolas Cardenas Work Phone: [facility] Work Phone: Start: 04-06-2023 End: 04-06-[address] Nicolas Cardenas Work Phone: [facility] Start: 02-02-2023 End: 02-02-[address] Nicolas Cardenas Work Phone: [facility] Work Phone: Start: 01-15-2023 End: 01-15-[address] Nicolas Cardenas Work Phone: [facility] Work Phone: Start: 12-30-2022 End: 12-30-[address] Nicolas Cardenas Work Phone: [facility] Work Phone: Start: 12-30-2022 End: 12-30-[address] Nicolas Cardenas Work Phone: [facility] Start: 11-23-2022 End: 11-23-[address] Nicolas Cardenas Work Phone: [facility] Work Phone: Start: 11-17-2022 End: 11-17-[address] Nicolas Cardenas Work Phone: [facility] Work Phone: Start: 10-06-2022 End: 10-06-[address] Nicolas Cardenas Work Phone: [facility] Work Phone: Start: 09-29-2022 End: 09-29-[address] Nicolas Cardenas Work Phone: [facility] Start: 09-23-2022 End: 09-23-[address] [facility] Start: 06-29-2022 End: 06-29-[address] Nicolas Cardenas Work Phone: [facility] Work Phone: Start: 06-29-2022 End: 06-29-[address] Nicolas Cardenas Work Phone: [facility] Start: 06-23-2022 End: 06-23-[address] Nicolas Cardenas Work Phone: [facility] Start: 06-05-2022 ambulatory Yoli Reardon [employer] Comment on above: Population Health Na vigation Outreach ([facility] Gaps) Start: 05-18-2022 End: 05-18-[address] Nicolas Cardenas Work Phone: [facility] Start: 04-14-2022 End: 04-14-[address] Nicolas Cardenas Work Phone: [facility] Start: 04-01-2022 End: 04-01-[address] Nicolas Cardenas Work Phone: [facility] Work Phone: Start: 04-01-2022 End: 04-01-[address] Nicolas Cardenas Work Phone: [facility] Start: 03-16-2022 End: 03-16-[address] Nicolas Cardenas Work Phone: [facility] Start: 02-24-2022 End: 02-24-[address] Nicolas Cardenas Work Phone: [facility] Start: 01-07-2022 End: 01-07-[address] Nicolas Cardenas Work Phone: [facility] Start: 01-05-2022 End: 01-05-[address] Nicolas Cardenas Work Phone: [facility] Start: 12-24-2021 End: 12-24-[address] Nicolas Cardenas Work Phone: [facility] Work Phone: Start: 12-24-2021 End: 12-24-[address] Nicolas Cardenas Work Phone: [facility] Start: 12-24-[address] Nicolas Cardenas Work Phone: [facility] Start: 12-15-2021 End: 12-15-[address] Nicolas Cardenas Work Phone: [facility] Start: 12-10-2021 End: 12-10-[address] Nicolas Cardenas Work Phone: [facility] Work Phone: Start: 12-10-2021 End: 12-10-[address] Nicolas Cardenas Work Phone: [facility] Start: 12-10-[address] Nicolas Cardenas Work Phone: [facility] Start: 12-09-2021 Telephone encounter Nicolas gutierrez MD Work Phone: [facility] [place] Comment on above: form dropping off Start: 11-26-2021 End: 11-26-[address] Nicolas Cardenas Work Phone: [facility] Work Phone: Start: 11-26-2021 End: 11-26-[address] Nicolas Cardenas Work Phone: [facility] Start: 11-12-[address] [facility] Start: 10-29-[address] Nicolas Cardenas Work Phone: [facility] [place] Start: 10-23-2021 Telephone encounter Nicolas gutierrez MD Work Phone: [facility] [place] Comment on above: Patient Update Start: 10-22-2021 Non-patient / Non-visit Dr. Nicolas Cardenas Work Phone: [facility] Start: 10-21-2021 Non-patient / Non-visit Dr. Nicolas Cardenas Work Phone: [facility] Start: 10-20-2021 Non-patient / Non-visit Dr. Nicolas Cardenas Work Phone: [facility] Start: 10-20-2021 End: 10-22-2021 Evaluation and management of inpatient Dr. Nicolas Cardenas Work Phone: [facility] 3 Start: 10-20-2021 End: 10-22-[address] 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 Alana Miramontes MD Work Phone: Start: 05-30-2024 Urnls dip stick/tabl et reagent auto microscopy Dr. David Miramontes MD Work Phone: Start: 05-30-2024 Prostate specific an tigen measurement Dr. David Miramontes MD Work Phone: Comment on above: This test was perfor med using the [employer] tPSA method. Measured values of a patient sample can vary depending on the testing procedure used. PSA values determined on patient samples by different testing procedures cannot be used interchangeably. If there is a change in PSA assays while monitoring therapy, sequential testing should be performed to confirm baseline values. Start: 04-17-[address] Alana Miramontes MD Work Phone: Start: 04-17-2024 Urnls dip stick/tabl et reagent auto microscopy Dr. David Miramontes MD Work Phone: Start: 04-07-[address] Alana Miramontes MD Work Phone: Start: 04-07-2024 Urnls dip stick/tabl et reagent auto microscopy Dr. David Miramontes MD Work Phone: Start: 04-07-2024 Measurement of renal function Dr. David Miramontes MD Work Phone: Comment on above: GFR Calc Start: 04-04-2024 Measurement of renal function Dr. David Miramontes MD Work Phone: Comment on above: GFR Calc Start: 10-22-2021 CT of head without contrast Dr. Nicolas Cardenas Work Phone: Start: 10-21-2021 CT angiography of he ad and neck Dr. Nicolas Cardenas Work Phone: Start: 10-20-2021 Plain chest X-ray Dr. Christine Cardenas Work Phone: Start: 10-20-2021 CT of head without contrast Dr. Nicolas Cardenas Work Phone: Start: 09-29-2021 PFIZER-BIONTECH COVI D-19 VACCINE, AGE 12+ YR (LANGE TOP) Nicolas Cardenas MD Work Phone: Urine culture Dr. Nicolas Farley Work Phone: Viral antigen assay Dr. Filiberto Cardenas Work Phone: Plan of Treatment Date Care Activity Detail Author Start: 10-30-2024 Influenza vaccination Influenz a Vaccine (Season Ended) [facility] Start: 04-22-2024 DIABETES SCREEN DIABETES SCREEN [facility] Start: 04-22-2024 Diabetes Screening Diabetes Screenin g [facility] Start: 03-01-2024 Advance Directive Discussion Advance Directive Discussion [facility] Start: 10-31-2023 Covid-19 Vaccine ( season) Covid-19 Vaccine ( season) [facility] Start: 10-30-2022 Influenza vaccination INFLUENZ A (Season Ended) [facility] Start: 05-12-2022 SHINGRIX VACCINE (2 of 3) DUMAS GRIX VACCINE (2 of 3) [facility] Comment on above: Postponed from 07/18 (Declined at this time) Start: 03-01-2022 ADVANCE DIRECTIVE DISCUSSION ADVANCE DIRECTIVE DISCUSSION [facility] Start: 11-24-2021 COVID-19 VACCINE (5 - Booster for Pfizer series) COVID-19 VACCINE (5 - Booster for Pfizer series) [facility] Start: 10-30-2021 Influenza vaccination INFLUENZA (#1) [facility] Start: 10-22-2021 Patient discharge [facility] Work Phone: Start: 10-21-2021 Following clinical p athway protocol [facility] Work Phone: Start: 10-21-2021 Assessment of risk o f venous thromboembolism [facility] Work Phone: Start: 10-21-2021 Insertion of cathete r into peripheral vein [facility] Work Phone: Start: 10-21-2021 Oxygen therapy [facility] Work Phone: Start: 10-21-2021 Providing care accor ding to standard [facility] Work Phone: Start: 10-21-2021 Provision of activit y privileges [facility] Work Phone: Start: 10-21-2021 Referral to occupati onal therapist [facility] Work Phone: Start: 10-21-2021 Referral to service [facility] Work Phone: Start: 10-21-2021 [facility] Work Phone: Start: 10-21-2021 Verification routine [facility] Work Phone: Start: 10-21-2021 CT angiography of he ad and neck CTA Head AND Neck W/ Contrast [facility] Work Phone: Start: 10-21-2021 CTA Head vessels and Neck vessels W contrast IV [facility] Work Phone: Start: 10-20-2021 [facility] Work Phone: Start: 10-20-2021 Admission procedure [facility] Work Phone: Start: 09-11-2021 COVID-19 VACCINE (4 - Booster for Pfizer series) COVID-19 VACCINE (4 - Booster for Pfizer series) [facility] Start: 08-23-2021 Urine microalbumin profile [facility] Comment on above: Postponed from 07/15 (Declined at this time) Start: 2014 RSV Vaccine (1 - 1-d ose 75+ series) RSV Vaccine (1 - 1-dose 75+ series) [facility] Start: 07-18-2013 SHINGRIX VACCINE (2 of 3) DUMAS GRIX VACCINE (2 of 3) [facility] Start: 07-15-2010 Urine microalbumin profile [facility] CYTOLOGY NON-ONLINE MARKETING SPECIALIST CYTOLOGY NON-GY N Lab Routine Gross hematuria Ordered: 07/14/2024 [facility] Work Phone: Comment on above: Ordered: 07/14/2024 Patient Education ED Fall with Uncertain Cause [facility] Work Phone: Patient referral [facility] Work Phone: [facility] Immunizations Immunization Date Immunization Notes Care Provider Fa cility 09-29-2021 COVID-19 vaccine, ag e 12+ yr (PFIZER-BIONTECH - LANGE TOP) Nicolas Cardenas MD Work Phone: [facility] Work Phone: 05-12-2021 COVID-19 vaccine, ag e 12+ yr (PFIZER-BIONTECH - LANGE TOP) Nicolas Cardenas MD Work Phone: [facility] 03-31-2021 influenza, high-dose , quadrivalent vaccine (FLUZONE HIGH DOSE QUADRIVALENT) Nicolas Cardenas MD Work Phone: [facility] Work Phone: 03-31-2021 influenza virus vaccine, unspecified formulation Diana Arango APRN.CNP Work Phone: [facility] 06-17-2020 COVID-19 vaccine, ag e 12+ yr (PFIZER-BIONTECH - PURPLE TOP) Nicolas Cardenas MD Work Phone: [facility] Work Phone: 05-27-2020 COVID-19 vaccine, ag e 12+ yr (PFIZER-BIONTECH - PURPLE TOP) Nicolas Cardenas MD Work Phone: [facility] Work Phone: 04-22-2020 influenza, high-dose , quadrivalent vaccine (FLUZONE HIGH DOSE QUADRIVALENT) Nicolas Cardenas MD Work Phone: [facility] Work Phone: 01-19-2019 influenza, high dose seasonal, preservative-free Nicolas Cardenas MD Work Phone: [facility] 02-03-2018 influenza, high dose seasonal, preservative-free Nicolas Cardenas MD Work Phone: [facility] 01-18-2017 influenza, high dose seasonal, preservative-free Nicolas Cardenas MD Work Phone: [facility] 12-27-2015 influenza, high dose seasonal, preservative-free Nicolas Cardenas MD Work Phone: [facility] 12-26-2014 influenza, high dose seasonal, preservative-free Nicolas Cardenas MD Work Phone: [facility] 06-26-2014 pneumococcal conjuga te vaccine, 13 valent Nicolas Cardenas MD Work Phone: [facility] 12-28-2013 influenza, seasonal, injectable Nicolas Cardenas MD Work Phone: [facility] 05-23-2013 zoster vaccine, live Nicolas Cardenas MD Work Phone: [facility] 07-14-2010 tetanus and diphther ia toxoids, adsorbed, preservative free, for adult use (2 Lf of tetanus toxoid and 2 Lf of diphtheria toxoid) Nicolas Cardenas MD Work Phone: [facility] Work Phone: 01-13-2006 pneumococcal polysaccharide vaccine, 23 valent Nicolas Cardenas MD Work Phone: [facility] Payers Date Payer Category Payer Self-pay [id number] 2013 Private Health Insurance [facility] AARP SUPPLEMENT [id number] 2013-Present [phone] [address] [place] [address] Indemnity [id number] 2013 Private Health Insurance [id number] 2013 Unknown [id number] 2004 Medicare MEDICARE MEDICAR E A AND B [id number] 2004-Present [phone] [address] [address] [place] [address] Medicare [id number] 2004 Medicare [id number] 2004 Medicare [id number] Private Health Insurance [facility] [id number] Unknown [id number] 2.16.840.1.424109.3.579.2 .462 Unknown [id number] 2.16.840.1.629618.3.579.2 .462 Unknown [id number] 2.16.840.1.802857.3.579.2 .462 Unknown [id number] 2.16.840.1.969132.3.579.2 .462 Unknown [id number] 2.16.840.1.061196.3.579.2 .462 Unknown [id number] 2.16.840.1.118948.3.579.2 .462 Unknown [id number] 2.16.840.1.231920.3.579.2 .462 Unknown [id number] 2.16.840.1.677175.3.579.2 .462 Unknown [id number] 2.16.840.1.130400.3.579.2 .462 Unknown [id number] 2.16.840.1.301200.3.579.2 .462 Unknown [id number] 2.16.840.1.302440.3.579.2 .462 Unknown [id number] 2.16.840.1.241398.3.579.2 .462 Unknown [id number] 2.16.840.1.131771.3.579.2 .462 Unknown [id number] 2.16.840.1.567856.3.579.2 .462 Unknown [id number] 2.16.840.1.460664.3.579.2 .462 Unknown [id number] 2.16.840.1.548059.3.579.2 .462 Unknown [id number] 2.16.840.1.964859.3.579.2 .462 Unknown [id number] 2.16.840.1.193881.3.579.2 .462 Unknown [id number] 2.16.840.1.043947.3.579.2 .462 Unknown [id number] 2.16.840.1.173024.3.579.2 .462 Unknown [id number] 2.16.840.1.031964.3.579.2 .462 Unknown [id number] 2.16.840.1.626488.3.579.2 .462 Unknown [id number] 2.16.840.1.585261.3.579.2 .462 Unknown [id number] 2.16.840.1.306230.3.579.2 .462 Unknown [id number] 2.16.840.1.790093.3.579.2 .462 Unknown [id number] 2.16.840.1.156885.3.579.2 .462 Unknown [id number] 2.16.840.1.487809.3.579.2 .462 Unknown [id number] 2.16.840.1.053295.3.579.2 .462 Unknown [id number] 2.16.840.1.364191.3.579.2 .462 Unknown [id number] 2.16.840.1.078144.3.579.2 .462 Unknown [id number] 2.16.840.1.475821.3.579.2 .462 Unknown [id number] 2.16.840.1.416208.3.579.2 .462 Unknown [id number] 2.16.840.1.964994.3.579.2 .462 Unknown [id number] 2.16.840.1.136238.3.579.2 .462 Unknown [id number] 2.16.840.1.259871.3.579.2 .462 Unknown [id number] 2.16.840.1.865813.3.579.2 .462 Unknown [id number] 2.16.840.1.327608.3.579.2 .462 Unknown [id number] 2.16.840.1.344928.3.579.2 .462 Unknown [id number] 2.16.840.1.244606.3.579.2 .462 Unknown [id number] 2.16.840.1.477786.3.579.2 .462 Unknown [id number] 2.16.840.1.787848.3.579.2 .462 Unknown [id number] 2.16840.1.557606.3.579.2 .462 Unknown [id number] 2.16840.1.689939.3.579.2 .462 Social History Date Type Detail Facility Start: 04-22-2012 End: 01-06-2024 Tobacco smoking status NHIS Ex-smoker [facility] Start: [birth year]-01-1949 End: 03-01-1959 History of tobacco use Current smoker [facility] Start: 03-01-1949 End: 03-01-1959 History of tobacco use Cigarette Smoker [facility] Start: 05-12-2021 End: 07-14-2024 Alcohol intake Current non-drinker of alcohol (finding) [facility] Start: 1940 Sex Assigned At Not on file C [facility] Start: 09-19-2021 End: 09-29-2021 Exposure to SARS-CoV-2 (event) Not sure [facility] Work Phone: Start: 10-21-2021 End: 12-02-2022 Tobacco smoking status NHIS Unknown if ever smoked [facility] Start: 1940 Sex Assigned At Male [facility] Start: 04-22-2012 End: 07-14-2024 Cigarettes smoked current (pack per day) - Reported 1 [facility] Start: 04-22-2012 Tobacco use and exposure Smokeless tobacco non-user [facility] Work Phone: Start: 06-05-2024 End: 06-21-2024 Sex Male (finding) [facility] Start: 02-03-2018 End: 07-14-2024 Tobacco use panel [facility] Adult Depression Screening Assessment 0 [facility] Goals Date Patient Goal Desired Activity /State Functional Status Date Assessment Result Facility 10-22-2021 Functional status Bedrest [facility] Work Phone: 06-26-2014 Are you deaf, or do you have serious difficulty hearing No 06/26/2014 10:08 AM Anjelica Esparza Cma No [facility] 06-26-2014 Are you blind, or do you have serious difficulty seeing, even when wearing glasses No 06/26/2014 10:08 AM Anjelica Esparza Cma No [facility] 06-26-2014 Do you have serious difficulty walking or climbing stairs No 06/26/2014 10:08 AM Anjelica Esparza Cma No [facility] 06-26-2014 Do you have difficul ty dressing or bathing No 06/26/2014 10:08 AM Anjelica Esparza Cma No [facility] 06-26-2014 Because of a physica l, mental, or emotional condition, do you have difficulty doing errands alone such as visiting a physician's office or shopping No 06/26/2014 10:08 AM Anjelica Esparza Cma [facility] Mental Status Date Assessment Result Facility 10-22-2021 Cognitive function Voice/Name [facility] Work Phone: 10-20-2021 Cognitive function Appropriate;Cooperativ e [facility] Work Phone: 06-26-2014 Because of a physica l, mental, or emotional condition, do you have serious difficulty concentrating, remembering, or making decisions No 06/26/2014 10:08 AM EDT Chris Moore, Anjelica No [facility] Clinical Notes 09-16-2018 to 07-17-2024 Telephone Encounter - Stefany Mcclure RN - 07/17/2024 11:17 AM EDTTelephone Encounter - Stefany Mcclure RN - 07/17/2024 11:17 AM EDTTelephone Encounter - Stefany Mcclure RN - 07/17/2024 11:14 AM EDT Note Date & Type Note Facility 07-17-2024 Telephone encounter Note Spoke with patient's son and notified of information as per provider. He states that they are going to hold off on having tests listed below,. He will let us know if he needs anything or wants test done in the future. Verbalized understanding and has no further questions. Stefany Mcclure RN [facility] Work Phone: 07-17-2024 Miscellaneous Notes Spoke with patient's son and notified of information as per provider. He states that they are going to hold off on having tests listed below,. He will let us know if he needs anything or wants test done in the future. Verbalized understanding and has no further questions. Stefany Mcclure RN ----- Message from Diana Arango APRN.WELL TESTING OPERATOR sent at 07/17/2024 11:12 AM EDT ----- Please notify patient/patient's son that patient's cytology came back negative for high-grade urothelial carcinoma. This is great news! Given his mentation and mobility -- we could hold off on CT/cysto if he wishes. documented in this encounter [facility] 07-17-2024 Telephone encounter Note ----- Message from Diana Arango APRN.WELL TESTING OPERATOR sent at 07/17/2024 11:12 AM EDT ----- Please notify patient/patient's son that patient's cytology came back negative for high-grade urothelial carcinoma. This is great news! Given his mentation and mobility -- we could hold off on CT/cysto if he wishes. [facility] 07-14-2024 History of Present illness Narrative Images from the original note were not included. [facility] [place] [facility] [place] [facility] NEW PATIENT UROLOGY VISIT 07/14/2024 8:51 AM PATIENT NAME: Kel Dillard DATE OF : 1940 TODAY'S DATE: 07/14/2024 Chief Complaint: Patient presents with: Blood In Urine History of Present Illness: Mr. Dillard is a 84 year old male who presents to the office regarding gross hematuria. Patient first noted blood on about two weeks ago. Son is not sure how long the blood persisted for. He states patient was on ABX but it did not help. Unsure if patient is on ABX now. Patient has dementia history, short term memory loss. Son primary historian. Patient's son is court appointed guardian. Accompanied by no other symptoms. 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 Formerly known to Dr. Diehl Prior cystoscopy: Unsure Blood thinners: Eliquis Review of Systems Constitutional: Negative for chills and fever. Genitourinary: See HPI Past Medical History: PAST MEDICAL HISTORY Diagnosis Date Atrial fibrillation (HCC) 08/04/2018 Benign neoplasm of colon 08/2000 Chronic midline low back pain without sciatica 07/19/2017 Chronic rhinitis 03/10/2005 Diverticulosis of colon (without mention of hemorrhage) Elevated prostate specific antigen (PSA) 03/10/2005 Essential hypertension, benign 03/10/2005 Essential tremor 05/23/2013 Helicobacter pylori (H. 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 Impaired fasting glucose 03/10/2005 Multiple gastric ulcers 07/16/2016 Sick sinus syndrome (HCC) 11/15/2018 sinus pause Past Surgical History: PAST SURGICAL HISTORY Procedure Laterality Date COLONOSCOPY FLX DX W/COLLJ SPEC WHEN PFRMD 08/2000 Colonoscopy COLONOSCOPY FLX DX W/COLLJ SPEC WHEN PFRMD 04/16/2003 Colonoscopy COLONOSCOPY FLX DX W/COLLJ SPEC WHEN PFRMD 10/06/11 Colonoscopy repeat repeat 5 years COLONOSCOPY FLX DX W/COLLJ SPEC WHEN PFRMD 04/09/2016 Colonoscopy COLONOSCOPY W/BIOPSY SINGLE/MULTIPLE 08/31/06 CYSTOSCOPY 10/10/2018 EGD 09/08/2016 ESOPHAGOGASTRODUODENOSCOPY TRANSORAL DIAGNOSTIC 09/02/2004 EGD ESOPHAGOGASTRODUODENOSCOPY TRANSORAL DIAGNOSTIC 04/09/2016 EGD PACEMAKER IMPLANT 11/18/2018 single lead PPM PROSTATE NEEDLE BIOPSY ANY APPROACH 03/26/2004 Transrectal bx, prostate Social History: Social History Tobacco Use Smoking status: Former Current packs/day: 0.00 Average packs/day: 1 pack/day for 10.0 years (10.0 ttl pk-yrs) Types: Cigarettes Start date: 03/01/1949 Quit date: 03/01/1959 Years since quittin.4 Smokeless tobacco: Never Substance Use Topics Alcohol use: No Drug use: No Medications: Prior to Admission medications : Medication finasteride (PROSCAR) 5 mg tablet, Sig Take 1 tablet by mouth once daily., Start Date 03/31/21, End Date , Taking? , Authorizing Provider Nicolas Cardenas MD Medication terazosin (HYTRIN) 5 mg capsule, Sig Take 1 capsule by mouth daily at bedtime., Start Date 03/31/21, End Date , Taking? , Authorizing Provider Nicolas Cardenas MD Medication omeprazole (PRILOSEC) 20 mg capsule, Sig Take 1 capsule by mouth once daily., Start Date 03/31/21, End Date , Taking? , Authorizing Provider Nicolas Cardenas MD Medication CPAP, Sig , Start Date , End Date , Taking? , Authorizing Provider Provider, [facility] Medication furosemide (LASIX) 40 mg tablet, Sig Take 1 tablet by mouth once daily., Start Date 05/26/19, End Date , Taking? , Authorizing Provider Nicolas Cardenas MD Medication ELIQUIS 5 mg tab(s), Sig Take 5 mg by mouth twice daily. Per cardiology., Start Date 11/08/18, End Date , Taking? , Authorizing Provider Provider, [facility] Medication potassium chloride ER (KLOR-CON M20) 20 mEq tablet, Sig Take 20 mEq by mouth once daily., Start Date , End Date , Taking? , Authorizing Provider Provider, [facility] Medication pyridoxine hcl(VITAMIN B-6 100 MG TAB), Sig Take one(1) tablet daily., Start Date 02/21/08, End Date , Taking? , Authorizing Provider Jhonny Granados Medication Docosahexanoic Acid-Eicosapent (FISH OIL) ORAL Cap, Sig Take one(1) capsule daily., Start Date 08/31/06, End Date , Taking? , Authorizing Provider Avi Mendoza MD ALLERGIES No Known Allergies Problem List Reviewed: Yes Vitals: Ht (P) 165.1 cm (5' 5") Wt (P) 87.1 kg (192 lb) BMI (P) 31.95 kg/m Physical Exam Vitals reviewed. Musculoskeletal: Comments: In wheelchair Skin: General: Skin is warm and dry. Neurological: Mental Status: He is alert. Mental status is at baseline. Psychiatric: Mood and Affect: Mood normal. Behavior: Behavior is cooperative. Labs: Creatinine Date Value Ref Range Status 04/22/2021 1.13 0.73 - 1.22 mg/dL Final PSA (ng/mL) Date Value 10/24/2013 2.28 09/26/2012 3.15 03/29/2012 3.64 09/23/2011 7.01 12/18/2006 5.82 06/07/2003 4.42 Color (no units) Date Value 08/12/2018 Yellow Clarity (no units) Date Value 08/12/2018 Clear Glucose, Urine (mg/dL) Date Value 08/12/2018 Negative Bilirubin, Urine (no units) Date Value 08/12/2018 Negative Ketones, Urine (no units) Date Value 08/12/2018 Negative Specific [place], Ur (no units) Date Value 08/12/2018 1.018 Hemoglobin/Blood,Ur ( ) Date Value 08/12/2018 Negative pH, Urine (no units) Date Value 08/12/2018 6.0 Protein, Urine (mg/dL) Date Value 08/12/2018 Negative Urobilinogen (no units) Date Value 08/12/2018 Normal Nitrites (no units) Date Value 08/12/2018 Negative Leukest (no units) Date Value 08/12/2018 Negative URINE POC GLUCOSE UA (POCT) Negative 07/14/2024 BILIRUBIN UA (POCT) Negative 07/14/2024 KETONE UA (POCT) Negative 07/14/2024 SPECIFIC GRAVITY UA (POCT) 1.025 07/14/2024 HEMOGLOBIN/BLOOD UA (POCT) Trace-intact 07/14/2024 PH UA (POCT) 5.5 07/14/2024 PROTEIN UA (POCT) 30 07/14/2024 UROBILINOGEN UA (POCT) 0.2 07/14/2024 NITRITE UA (POCT) Negative 07/14/2024 LEUKOCYTES UA (POCT) Negative 07/14/2024 COLOR UA (POCT) Yellow 07/14/2024 CLARITY UA (POCT) Clear 07/14/2024 Radiology Review: No pertinent imaging to review. Procedure: PVR = 59 mL ASSESSMENT/PLAN: 1. Gross hematuria - ICD9: 599.71, ICD10: R31.0 - Patient with episode of gross hematuria 2 weeks ago. Son with little information from patient's SNF. Has resolved. - UA DIP, URINE (POC) - trace - BLADDER SCAN - 59 mL - Discussed with patient and son options regarding gross hematuria workup. Discussed that given patient's health status and baseline would they wish to pursue treatment if malignancy found. Son states patient would not tolerate imaging or cystoscopy. Agreeable to cytology lab with decision on further intervention based on that result. - CYTOLOGY NON-ONLINE MARKETING SPECIALIST - Call son with results. Will make treatment plan decision from there. Follow-up as needed. Diana Arango APRN.CNP documented in this encounter [facility] 07-14-2024 Note HNO ID: [id number] Author: DIANA ARANGO APRN.CNP Service: ? Author Type: Nurse Practitioner Type: Progress Notes Filed: 07/14/2024 09:11 Note Text: [facility] [place] [facility] [place] [facility] 07/14/2024 8:51 AM PATIENT NAME: Kel Dillard DATE OF : 1940 TODAY'S DATE: 07/14/2024 Chief Complaint: Patient presents with: Blood In Urine History of Present Illness: Mr. Dillard is a 84 year old male who presents to the office regarding gross hematuria. Patient first noted blood on about two weeks ago. Son is not sure how long the blood persisted for. He states patient was on ABX but it did not help. Unsure if patient is on ABX now. Patient has dementia history, short term memory loss. Son primary historian. Patient's son is court appointed guardian. Accompanied by no other symptoms. 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 Formerly known to Dr. Diehl Prior cystoscopy: Unsure Blood thinners: Eliquis Review of Systems Constitutional: Negative for chills and fever. Genitourinary: See HPI Past Medical History: PAST MEDICAL HISTORY Diagnosis Date Atrial fibrillation (HCC) 08/04/2018 Benign neoplasm of colon 08/2000 Chronic midline low back pain without sciatica 07/19/2017 Chronic rhinitis 03/10/2005 Diverticulosis of colon (without mention of hemorrhage) Elevated prostate specific antigen (PSA) 03/10/2005 Essential hypertension, benign 03/10/2005 Essential tremor 05/23/2013 Helicobacter pylori (H. 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 Impaired fasting glucose 03/10/2005 Multiple gastric ulcers 07/16/2016 Sick sinus syndrome (HCC) 11/15/2018 sinus pause Past Surgical History: PAST SURGICAL HISTORY Procedure Laterality Date COLONOSCOPY FLX DX W/COLLJ SPEC WHEN PFRMD 08/2000 Colonoscopy COLONOSCOPY FLX DX W/COLLJ SPEC WHEN PFRMD 04/16/2003 Colonoscopy COLONOSCOPY FLX DX W/COLLJ SPEC WHEN PFRMD 10/06/11 Colonoscopy repeat repeat 5 years COLONOSCOPY FLX DX W/COLLJ SPEC WHEN PFRMD 04/09/2016 Colonoscopy COLONOSCOPY W/BIOPSY SINGLE/MULTIPLE 08/31/06 CYSTOSCOPY 10/10/2018 EGD 09/08/2016 ESOPHAGOGASTRODUODENOSCOPY TRANSORAL DIAGNOSTIC 09/02/2004 EGD ESOPHAGOGASTRODUODENOSCOPY TRANSORAL DIAGNOSTIC 04/09/2016 EGD PACEMAKER IMPLANT 11/18/2018 single lead PPM PROSTATE NEEDLE BIOPSY ANY APPROACH 03/26/2004 Transrectal bx, prostate Social History: Social History Tobacco Use Smoking status: Former Current packs/day: 0.00 Average packs/day: 1 pack/day for 10.0 years (10.0 ttl pk-yrs) Types: Cigarettes Start date: 03/01/1949 Quit date: 03/01/1959 Years since quittin.4 Smokeless tobacco: Never Substance Use Topics Alcohol use: No Drug use: No Medications: Prior to Admission medications : Medication finasteride (PROSCAR) 5 mg tablet, Sig Take 1 tablet by mouth once daily., Start Date 03/31/21, End Date , Taking? , Authorizing Provider Nicolas Cardenas MD Medication terazosin (HYTRIN) 5 mg capsule, Sig Take 1 capsule by mouth daily at bedtime., Start Date 03/31/21, End Date , Taking? , Authorizing Provider Nicolas Cardenas MD Medication omeprazole (PRILOSEC) 20 mg capsule, Sig Take 1 capsule by mouth once daily., Start Date 03/31/21, End Date , Taking? , Authorizing Provider Nicolas Cardenas MD Medication CPAP, Sig , Start Date , End Date , Taking? , Authorizing Provider Provider, [facility] Medication furosemide (LASIX) 40 mg tablet, Sig Take 1 tablet by mouth once daily., Start Date 05/26/19, End Date , Taking? , Authorizing Provider Nicolas Cardenas MD Medication ELIQUIS 5 mg tab(s), Sig Take 5 mg by mouth twice daily. Per cardiology., Start Date 11/08/18, End Date , Taking? , Authorizing Provider Provider, [facility] Medication potassium chloride ER (KLOR-CON M20) 20 mEq tablet, Sig Take 20 mEq by mouth once daily., Start Date , End Date , Taking? , Authorizing Provider Provider, [facility] Medication pyridoxine hcl(VITAMIN B-6 100 MG TAB), Sig Take one(1) tablet daily., Start Date 02/21/08, End Date , Taking? , Authorizing Provider Jhonny Granados Medication Docosahexanoic Acid-Eicosapent (FISH OIL) ORAL Cap, Sig Take one(1) capsule daily., Start Date 08/31/06, End Date , Taking? , Authorizing Provider Avi Mendoza MD ALLERGIES No Known Allergies Problem List Reviewed: Yes Vitals: Ht (P) 165.1 cm (5' 5") Wt (P) 87.1 kg (192 lb) BMI (P) 31.95 kg/m? Physical Exam Vitals reviewed. Musculoskeletal: Comments: In wheelchair Skin: General: Skin is warm and dry. Neurological: Mental Status: He is alert. Mental status is at baseline. Psychiatric: (more content not included)... [facility] 06-05-2022 Note HNO ID: [id number] Author: Yoli Garner Service: ? Author Type: ? Type: Progress Notes Filed: 06/05/2022 2:00 PM Note Text: POPULATION HEALTH NAVIGATION OUTREACH Action/ 1st attempt: Spoke to patient's daughter. Patient now resides at [facility] and receives medical care there. Patient Identified by Name and : NO Outreach Outcome/Action Unable to reach patient: Patient in SNF Did you use a PCP flex slot to schedule this appointment? N/A Reason for Outreach HCC or suspected condition Payer: Payor: MEDICARE / Plan: MEDICARE A AND B / Product Type: Medicare / Reminder: Reminder note to check Health Maintenance for items below Health Maintenance items due: DTAP,TDAP,TD(1 - Tdap) due on 07/15/2010 SHINGRIX VACCINE(2 of 3) due on 07/18/2013 COVID-19 VACCINE(5 - Booster for Pfizer series) due on 11/24/2021 ADVANCE DIRECTIVE DISCUSSION due on 03/01/2022 Navigation Signature: Yoli Garner June 05, 2022 1:58 PM [facility] 06-05-2022 Note Patient Outreach (JEAN CLAUDE ABDI) ---- GILMAKEL Ortiz ([id number]) 1940 M Date Time Provider Department 06/05/22 YOLI GARNER During your visit today, we recorded the following information about you: Yoli Garner 06/05/2022 2:00 PM Signed POPULATION HEALTH NAVIGATION OUTREACH Action/ attempt: Spoke to patient's daughter. Patient now resides at [facility] and receives medical care there. Patient Identified by Name and : NO Outreach Outcome/Action Unable to reach patient: Patient in SNF Did you use a PCP flex slot to schedule this appointment? N/A Reason for Outreach HCC or suspected condition Payer: Payor: MEDICARE / Plan: MEDICARE A AND B / Product Type: Medicare / Reminder: Reminder note to check Health Maintenance for items below Health Maintenance items due: DTAP,TDAP,TD(1 - Tdap) due on 07/15/2010 SHINGRIX VACCINE(2 of 3) due on 07/18/2013 COVID-19 VACCINE(5 - Booster for Pfizer series) due on 11/24/2021 ADVANCE DIRECTIVE DISCUSSION due on 03/01/2022 Navigation Signature: Yoli Garner June 05, 2022 1:58 PM Allergies As of Date: 06/05/2022 (No Known Allergies) Date Reviewed: 09/29/2021 Reviewed by: Aisha Mccullough LPN - Fully Assessed Reason for Visit: Population Health Navigation Outreach [3910] Cmt: HCC Gaps Prescriptions as of 06/05/2022 - finasteride (PROSCAR) 5 mg tablet Take 1 tablet by mouth once daily. - terazosin (HYTRIN) 5 mg capsule Take 1 capsule by mouth daily at bedtime. - omeprazole (PRILOSEC) 20 mg capsule Take 1 capsule by mouth once daily. - CPAP - furosemide (LASIX) 40 mg tablet Take 1 tablet by mouth once daily. - ELIQUIS 5 mg tab(s) Take 5 mg by mouth twice daily. Per cardiology. - potassium chloride ER (KLOR-CON M20) 20 mEq tablet Take 20 mEq by mouth once daily. - pyridoxine hcl(VITAMIN B-6 100 MG TAB) Take one(1) tablet daily. - Docosahexanoic Acid-Eicosapent (FISH OIL) ORAL Cap Take one(1) capsule daily. Problem List As Of Date 06/05/2022 Noted Resolved BENIGN HYPERTENSION [I10] 03/10/2005 BPH with obstruction/lower urinary tract sympto*03/10/2005 ELEVATED PROSTATE SPECIFIC ANTIGEN [R97.20] 03/10/2005 06/26/2014 Personal history of colonic polyps [Z86.010] 03/10/2005 06/26/2014 CHRONIC RHINITIS [J31.0] 03/10/2005 BENIGN NEOPLASM LG BOWEL [D12.6] 08/31/2006 Diverticulosis of colon (without mention of hem*08/31/2006 06/26/2014 Bladder neck obstruction [N32.0] 08/22/2007 04/22/2012 Mild memory disturbance [R41.3] 05/23/2013 12/13/2018 Essential tremor [G25.0] 05/23/2013 Occult GI bleeding [R19.5] 05/25/2013 01/18/2017 Multiple gastric ulcers [K25.9] 07/16/2016 Chronic midline low back pain without sciatica *07/19/2017 05/26/2019 Atrial fibrillation (HCC) [I48.91] 08/04/2018 SUZAN (obstructive sleep apnea) [G47.33] 08/04/2018 Gross hematuria [R31.0] 09/16/2018 12/13/2018 Obesity, Class I, BMI 30-34.9 [E66.9] 12/12/2018 Cognitive impairment [R41.89] 12/13/2018 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 Patient now resides at [facility] and receives medical care there. Patient Identified by Name and : NO Outreach Outcome/Action Unable to reach patient: Patient in SNF Did you use a PCP flex slot to schedule this appointment? N/A Reason for Outreach HCC or suspected condition Payer: Payor: MEDICARE / Plan: MEDICARE A AND B / Product Type: Medicare / Reminder: Reminder note to check Health Maintenance for items below Health Maintenance items due: DTAP,TDAP,TD(1 - Tdap) due on 07/15/2010 SHINGRIX VACCINE(2 of 3) due on 07/18/2013 COVID-19 VACCINE(5 - Booster for Pfizer series) due on 11/24/2021 ADVANCE DIRECTIVE DISCUSSION due on 03/01/2022 Navigation Signature: Yoli Garner June 05, 2022 1:58 PM documented in this encounter [facility] 12-11-2021 Miscellaneous Notes Forms pts son brought in have been sent to medical records. Pts son notified. He can pick them up there. Son (Jhonny) calls in and provider message reviewed. Son asking if form brought in can be picked back up in Medical Records. Please contact Jhonny at [phone]. Preethi Delgadillo RN I have not seen him since hospital stay and he is now under the [place] attending physician's care. It is more appropriate for the [place] attending physician to do another form. More statements need corrected/updated Form to pcp to review. Patient son Jhonny willis said PCP completed expert evaluation form on 09/29 for guardianship and 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 Son Jhonny said 2 weeks after form was done father had fall and was taken to [facility] then sent to [facility] for rehab. Now father is in memory care unit, his dementia is at 6 out of 7. Son is going to drop off new form to be competed, since father can not care for himself or do anything for himself. Please advise documented in this encounter [facility] 10-23-2021 Miscellaneous Notes Per [facility] discharge info pt was discharged to [facility] 10/22/21. documented in this encounter [facility] 09-29-2021 Note HNO ID: [id number] Author: Nicolas Cardenas MD Service: ? Author Type: Physician Type: Progress Notes Filed: 09/29/2021 6:08 PM Note Text: This note was created using [email or web address]. Subjective Kel Dillard is a 81 year old male. He was here with his son. He was home bound due to memory loss and cognitive deficits. He gets lost if he wandered outside. Son was here with form requesting guardianship. This was part of POA he was establishing. They were exploring intermediate placement in anticipation of need, but Kel had no major falls. Review of Systems Constitutional: Negative. Respiratory: Negative. Cardiovascular: Negative. Genitourinary: Negative. Neurological: Negative. Psychiatric/Behavioral: Positive for confusion. 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 - terazosin (HYTRIN) 5 mg capsule Take 1 capsule by mouth daily at bedtime. - omeprazole (PRILOSEC) 20 mg capsule Take 1 capsule by mouth once daily. - CPAP - furosemide (LASIX) 40 mg tablet Take 1 tablet by mouth once daily. - ELIQUIS 5 mg tab(s) Take 5 mg by mouth twice daily. Per cardiology. - potassium chloride ER (KLOR-CON M20) 20 mEq tablet Take 20 mEq by mouth once daily. - pyridoxine hcl(VITAMIN B-6 100 MG TAB) Take one(1) tablet daily. - Docosahexanoic Acid-Eicosapent (FISH OIL) ORAL Cap Take one(1) capsule daily. No current facility-administered medications for this visit. Objective BP 130/76 (BP Site: Right Arm, BP Position: Sitting, BP Cuff Size: Large Adult) Pulse 60 Temp 36.3 ?C (97.3 ?F) (Temporal Artery) Resp 16 Ht 165.7 cm (5' 5.25") Wt 87.1 kg (192 lb) BMI 31.71 kg/m? Physical Exam Cardiovascular: Rate and Rhythm: Normal rate and regular rhythm. Pulmonary: Effort: Pulmonary effort is normal. Musculoskeletal: Right lower leg: No edema. Left lower leg: No edema. Neurological: General: No focal deficit present. Mental Status: He is alert. He is disoriented. Motor: Tremor present. Comments: Oriented to person and place. Month January. Season Winter "some snow outside". [facility] 06/26/2014 12/12/2018 09/29/[address] 5 4 3 REGISTRATION 3 3 3 ATTENTION AND CALCULATION 5 5 5 RECALL 0 1 0 LANGUAGE 2 2 2 REPEAT 1 1 1 FOLLOW 3-STEP COMMAND 2 2 2 READ AND OBEY 1 1 1 WRITE A SENTENCE 1 1 1 COPY 1 1 1 SCORE 26 25 20 Assessment and Plan 1. Medicare annual wellness visit, subsequent - ICD9: V70.0, ICD10: Z00.00 (primary diagnosis) See wellness note. 2. Cognitive impairment - ICD9: 294.9, ICD10: R41.89 Worse. See #6. 3. Essential tremor - ICD9: 333.1, ICD10: G25.0 Stable. 4. Essential hypertension, benign - ICD9: 401.1, ICD10: I10 - good control 5. Need for COVID-19 vaccine - ICD9: V04.89, ICD10: Z23 - PFIZER-BIONTECH COVID-19 VACCINE, AGE 12+ YR (LANGE TOP) 6. 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 Form completed. Patient and son indicated understanding and willingness to follow recommendations. Nicolas Cardenas MD [facility] 09-29-2021 Note HNO ID: [id number] Author: Nicolas Cardenas MD Service: ? Author Type: Physician Type: Progress Notes Filed: 09/29/2021 6:08 PM Note Text: Medicare Yearly Visit Medical B eligibilty date 2004 Date of last exam 08/23/2020 PAST MEDICAL HISTORY Diagnosis Date - Atrial fibrillation (HCC) 08/04/2018 - Benign neoplasm of colon 08/2000 - Chronic midline low back pain without sciatica 07/19/2017 - Chronic rhinitis 03/10/2005 - Diverticulosis of colon (without mention of hemorrhage) - Elevated prostate specific antigen (PSA) 03/10/2005 - Essential hypertension, benign 03/10/2005 - Essential tremor 05/23/2013 - Helicobacter pylori (H. pylori) infection 04/09/2016 - Hematuria of unknown cause 08/12/2018 negative work up - HYPERTROPHY PROSTATE WITH OBST 03/10/2005 - Impaired fasting glucose 03/10/2005 - Multiple gastric ulcers 07/16/2016 - Sick sinus syndrome (HCC) 11/15/2018 sinus pause PAST SURGICAL HISTORY Procedure Laterality Date - COLONOSCOPY FLX DX W/COLLJ SPEC WHEN PFRMD 08/2000 Colonoscopy - COLONOSCOPY FLX DX W/COLLJ SPEC WHEN PFRMD 04/16/2003 Colonoscopy - COLONOSCOPY FLX DX W/COLLJ SPEC WHEN PFRMD 10/06/11 Colonoscopy repeat repeat 5 years - COLONOSCOPY FLX DX W/COLLJ SPEC WHEN PFRMD 04/09/2016 Colonoscopy - COLONOSCOPY W/BIOPSY SINGLE/MULTIPLE 08/31/06 - CYSTOSCOPY 10/10/2018 - EGD 09/08/2016 - ESOPHAGOGASTRODUODENOSCOPY TRANSORAL DIAGNOSTIC 09/02/2004 EGD - ESOPHAGOGASTRODUODENOSCOPY TRANSORAL DIAGNOSTIC 04/09/2016 EGD - PACEMAKER IMPLANT 11/18/2018 single lead PPM - PROSTATE NEEDLE BIOPSY ANY APPROACH 03/26/2004 Transrectal bx, prostate ALLERGIES: Patient has no known allergies. Medications reviewed: Yes FAMILY HISTORY Problem Relation Age of Onset - Diabetes Mother - Stroke Father - Hypertension Sister - Coronary Artery Disease Sister sudden at 70 y.o. - Blood Disease Son DVT - other (tremor) Brother - other (at ) Sister - other (flu) Sister age 2 - Obesity Son - Heart Son - other (back issues) Son SOCIAL HISTORY: Social History Tobacco Use - Smoking status: Former Smoker Packs/day: 1.00 Years: 10.00 Pack years: 10.00 Types: Cigarettes Quit date: 03/01/1959 Years since quittin.6 - Smokeless tobacco: Never Used Substance Use Topics - Alcohol use: No - Drug use: No Kel likes to exercise by walking. He watches his diet for sodium, low fat and low cholesterol generally not very much. List of current specialists seen: Pulmonary- Dr. Valle Cardiology- [facility] Loan Manager- Barb End of Live Planning discussed including patients advanced directive wishes: Yes I am willing to follow Kel's advanced directives. PHQ-2 / Depression screen He in the past two weeks denies having felt down, depressed, hopeless or with little interest or pleasure in doing things. Functional Ability/Safety Screen 1. Was the patient's timed Up and Go test unsteady or longer than 30 seconds? No 2. Does the patient need help with the phone, transportation, shopping,preparing meals, housework, laundry, medications or managing money? No 3. Does your home have rugs in the hallway, lack of grab bars in the bathroom, lack of handrails on the stairs or have poor lighting? No Hearing Evaluation: within normal limits PHYSICAL EXAM BP 130/76 (BP Site: Right Arm, BP Position: Sitting, BP Cuff Size: Large Adult) Pulse 60 Temp 36.3 ?C (97.3 ?F) (Temporal Artery) Resp 16 Ht 165.7 cm (5' 5.25") Wt 87.1 kg (192 lb) BMI 31.71 kg/m? Alert and oriented X 3: NO. Body mass index is 31.71 kg/m?. Visual acuity: see vision tab. ASSESSMENT/PLAN: 81 year old male The following prevention plan was discussed during the office visit and provided to the patient: - Fall avoidance - Vaccines recommended COVID-19 and Tdap at pharmacy Nicolas Cardenas MD [facility] 09-29-2021 History of Present illness Narrative This note was created using Full[employer]le GeoSocial Networksriter. Subjective Kel Dillard is a 81 year old male. He was here with his son. He was home bound due to memory loss and cognitive deficits. He gets lost if he wandered outside. Son was here with form requesting guardianship. This was part of POA he was establishing. They were exploring intermediate placement in anticipation of need, but Kel had no major falls. Review of Systems Constitutional: Negative. Respiratory: Negative. Cardiovascular: Negative. Genitourinary: Negative. Neurological: Negative. Psychiatric/Behavioral: Positive for confusion. 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 terazosin (HYTRIN) 5 mg capsule Take 1 capsule by mouth daily at bedtime. omeprazole (PRILOSEC) 20 mg capsule Take 1 capsule by mouth once daily. CPAP furosemide (LASIX) 40 mg tablet Take 1 tablet by mouth once daily. ELIQUIS 5 mg tab(s) Take 5 mg by mouth twice daily. Per cardiology. potassium chloride ER (KLOR-CON M20) 20 mEq tablet Take 20 mEq by mouth once daily. pyridoxine hcl(VITAMIN B-6 100 MG TAB) Take one(1) tablet daily. Docosahexanoic Acid-Eicosapent (FISH OIL) ORAL Cap Take one(1) capsule daily. No current facility-administered medications for this visit. Objective BP 130/76 (BP Site: Right Arm, BP Position: Sitting, BP Cuff Size: Large Adult) Pulse 60 Temp 36.3 C (97.3 F) (Temporal Artery) Resp 16 Ht 165.7 cm (5' 5.25") Wt 87.1 kg (192 lb) BMI 31.71 kg/m Physical Exam Cardiovascular: Rate and Rhythm: Normal rate and regular rhythm. Pulmonary: Effort: Pulmonary effort is normal. Musculoskeletal: Right lower leg: No edema. Left lower leg: No edema. Neurological: General: No focal deficit present. Mental Status: He is alert. He is disoriented. Motor: Tremor present. Comments: Oriented to person and place. Month January. Season Winter "some snow outside". [facility]SE 06/26/2014 12/12/2018 09/29/[address]21 [address] 5 4 3 REGISTRATION 3 3 3 ATTENTION & CALCULATION 5 5 5 RECALL 0 1 0 LANGUAGE 2 2 2 REPEAT 1 1 1 FOLLOW 3-STEP COMMAND 2 2 2 READ AND OBEY 1 1 1 WRITE A SENTENCE 1 1 1 COPY 1 1 1 SCORE 26 25 20 Assessment and Plan 1. Medicare annual wellness visit, subsequent - ICD9: V70.0, ICD10: Z00.00 (primary diagnosis) See wellness note. 2. Cognitive impairment - ICD9: 294.9, ICD10: R41.89 Worse. See #6. 3. Essential tremor - ICD9: 333.1, ICD10: G25.0 Stable. 4. Essential hypertension, benign - ICD9: 401.1, ICD10: I10 - good control 5. Need for COVID-19 vaccine - ICD9: V04.89, ICD10: Z23 - [id number] COVID-19 VACCINE, AGE 12+ YR (LANGE TOP) 6. 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 Form completed. Patient and son indicated understanding and willingness to follow recommendations. Nicolas Cardenas MD Medicare Yearly Visit Medical B eligibilty date 2004 Date of last exam 08/23/2020 PAST MEDICAL HISTORY Diagnosis Date Atrial fibrillation (HCC) 08/04/2018 Benign neoplasm of colon 08/2000 Chronic midline low back pain without sciatica 07/19/2017 Chronic rhinitis 03/10/2005 Diverticulosis of colon (without mention of hemorrhage) Elevated prostate specific antigen (PSA) 03/10/2005 Essential hypertension, benign 03/10/2005 Essential tremor 05/23/2013 Helicobacter pylori (H. 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 Impaired fasting glucose 03/10/2005 Multiple gastric ulcers 07/16/2016 Sick sinus syndrome (HCC) 11/15/2018 sinus pause PAST SURGICAL HISTORY Procedure Laterality Date COLONOSCOPY FLX DX W/COLLJ SPEC WHEN PFRMD 08/2000 Colonoscopy COLONOSCOPY FLX DX W/COLLJ SPEC WHEN PFRMD 04/16/2003 Colonoscopy COLONOSCOPY FLX DX W/COLLJ SPEC WHEN PFRMD 10/06/11 Colonoscopy repeat repeat 5 years COLONOSCOPY FLX DX W/COLLJ SPEC WHEN PFRMD 04/09/2016 Colonoscopy COLONOSCOPY W/BIOPSY SINGLE/MULTIPLE 08/31/06 CYSTOSCOPY 10/10/2018 EGD 09/08/2016 ESOPHAGOGASTRODUODENOSCOPY TRANSORAL DIAGNOSTIC 09/02/2004 EGD ESOPHAGOGASTRODUODENOSCOPY TRANSORAL DIAGNOSTIC 04/09/2016 EGD PACEMAKER IMPLANT 11/18/2018 single lead PPM PROSTATE NEEDLE BIOPSY ANY APPROACH 03/26/2004 Transrectal bx, prostate ALLERGIES: Patient has no known allergies. Medications reviewed: Yes FAMILY HISTORY Problem Relation Age of Onset Diabetes Mother Stroke Father Hypertension Sister Coronary Artery Disease Sister sudden at 70 y.o. Blood Disease Son DVT other (tremor) Brother other (at ) Sister other (flu) Sister age 2 Obesity Son Heart Son other (back issues) Son SOCIAL HISTORY: Social History Tobacco Use Smoking status: Former Smoker Packs/day: 1.00 Years: 10.00 Pack years: 10.00 Types: Cigarettes Quit date: 03/01/1959 Years since quittin.6 Smokeless tobacco: Never Used Substance Use Topics Alcohol use: No Drug use: No Kel likes to exercise by walking. He watches his diet for sodium, low fat and low cholesterol generally not very much. List of current specialists seen: Pulmonary- Dr. Valle Cardiology- [facility] Loan Manager- Barb End of Live Planning discussed including patients advanced directive wishes: Yes I am willing to follow Kel's advanced directives. PHQ-2 / Depression screen He in the past two weeks denies having felt down, depressed, hopeless or with little interest or pleasure in doing things. Functional Ability/Safety Screen 1. Was the patient's timed Up and Go test unsteady or longer than 30 seconds? No 2. Does the patient need help with the phone, transportation, shopping,preparing meals, housework, laundry, medications or managing money? No 3. Does your home have rugs in the hallway, lack of grab bars in the bathroom, lack of handrails on the stairs or have poor lighting? No Hearing Evaluation: within normal limits PHYSICAL EXAM BP 130/76 (BP Site: Right Arm, BP Position: Sitting, BP Cuff Size: Large Adult) Pulse 60 Temp 36.3 C (97.3 F) (Temporal Artery) Resp 16 Ht 165.7 cm (5' 5.25") Wt 87.1 kg (192 lb) BMI 31.71 kg/m Alert and oriented X 3: NO. Body mass index is 31.71 kg/m . Visual acuity: see vision tab. ASSESSMENT/PLAN: 81 year old male The following prevention plan was discussed during the office visit and provided to the patient: - Fall avoidance - Vaccines recommended COVID-19 and Tdap at pharmacy Nicolas Cardenas MD documented in this encounter [facility] 07-15-2021 Miscellaneous Notes Yesenia, Admissions staff member at [facility] calling to state patient's son Jhonny has reached out to them to request patient possibly be admitted into their memory care unit due to cognition concerns. Yesenia is requesting notes from patient's last OV be faxed to them at [phone]. This nurse contacted son Jhonny to verify the request and he confirmed it was ok to share requested information. Information faxed as requested. Karen Matias RN documented in this encounter [facility] 09-16-2018 History of Past i llness Narrative Problem Noted Date Resolved Date Gross hematuria 09/16/2018 12/13/2018 Overview: Urology appointment 09/20/18: patient will have CT abd/pelvis and office cystoscopy Chronic midline low back pain without sciatica 0 07/19/2017 05/26/2019 Occult GI bleeding 05/25/2013 01/18/2017 Mild memory disturbance 05/23/2013 12/14/19 19 Bladder neck obstruction 08/22/2007 013 Diverticulosis of colon (without mention of hemo rrhage) 08/31/2006 06/26/2014 ELEVATED PROSTATE SPECIFIC ANTIGEN 03/10/2005 06/26/2014 Personal history of colonic polyps 03/10/2005 06/26/2014 documented as of this encounter (statuses as of 07/15/2021) [facility] History of Past illness Narrative* Problem Noted Date Resolved Date Gross hematuria 09/16/2018 12/13/2018 Overview: Urology appointment 09/20/18: patient will have CT abd/pelvis and office cystoscopy Chronic midline low back pain without sciatica 0 07/19/2017 05/26/2019 Occult GI bleeding 05/25/2013 01/18/2017 Mild memory disturbance 05/23/2013 12/14/19 19 Bladder neck obstruction 08/22/2007 013 Diverticulosis of colon (without mention of hemo rrhage) 08/31/2006 06/26/2014 ELEVATED PROSTATE SPECIFIC ANTIGEN 03/10/2005 06/26/2014 Personal history of colonic polyps 03/10/2005 06/26/2014 documented as of this encounter (statuses as of 09/29/2021) [facility] History of Past illness Narrative* Problem Noted Date Resolved Date Gross hematuria 09/16/2018 12/13/2018 Overview: Urology appointment 09/20/18: patient will have CT abd/pelvis and office cystoscopy Chronic midline low back pain without sciatica 0 07/19/2017 05/26/2019 Occult GI bleeding 05/25/2013 01/18/2017 Mild memory disturbance 05/23/2013 12/14/19 19 Bladder neck obstruction 08/22/2007 013 Diverticulosis of colon (without mention of hemo rrhage) 08/31/2006 06/26/2014 ELEVATED PROSTATE SPECIFIC ANTIGEN 03/10/2005 06/26/2014 Personal history of colonic polyps 03/10/2005 06/26/2014 documented as of this encounter (statuses as of 10/23/2021) [facility] History of Past illness Narrative* Problem Noted Date Resolved Date Gross hematuria 09/16/2018 12/13/2018 Overview: Urology appointment 09/20/18: patient will have CT abd/pelvis and office cystoscopy Chronic midline low back pain without sciatica 0 07/19/2017 05/26/2019 Occult GI bleeding 05/25/2013 01/18/2017 Mild memory disturbance 05/23/2013 12/14/19 19 Bladder neck obstruction 08/22/2007 013 Diverticulosis of colon (without mention of hemo rrhage) 08/31/2006 06/26/2014 ELEVATED PROSTATE SPECIFIC ANTIGEN 03/10/2005 06/26/2014 Personal history of colonic polyps 03/10/2005 06/26/2014 documented as of this encounter (statuses as of 12/11/2021) [facility] History of Past illness Narrative* Problem Noted Date Resolved Date Gross hematuria 09/16/2018 12/13/2018 Overview: Urology appointment 09/20/18: patient will have CT abd/pelvis and office cystoscopy Chronic midline low back pain without sciatica 0 07/19/2017 05/26/2019 Occult GI bleeding 05/25/2013 01/18/2017 Mild memory disturbance 05/23/2013 12/14/19 19 Bladder neck obstruction 08/22/2007 013 Diverticulosis of colon (without mention of hemo rrhage) 08/31/2006 06/26/2014 ELEVATED PROSTATE SPECIFIC ANTIGEN 03/10/2005 06/26/2014 Personal history of colonic polyps 03/10/2005 06/26/2014 documented as of this encounter (statuses as of 06/05/2022) [facility] Diagnosis Medicare annual wellness visit, subsequent- Primary Routine general medical examination at a health care facility Cognitive impairment Unspecified persistent mental disorders due to conditions classified elsewhere Essential tremor Essential and other specified forms of tremor Essential hypertension, benign Need for COVID-19 vaccine 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) [facility] Diagnosis Onset Date Resolution Status Adult failure to thrive acut e Chronic anticoagulation acut e Fall acute History of atrial fibrillation acute [facility] Work Phone: Evaluation noteNo assessment information available [facility] Work Phone: Evaluation note* Diagnosis Gross hematuria- Primary [facility]No reason for referral information availableWFisher-[facility] Work Phone: Advance Directives No Advanced Directives Records FoundDocuments on File Type Date Recorded Patient Membership Correspondent Expl anation Advance Directive(s) 04/29/2021 2:28 PM Advance Directive(s) 09/08/2016 1:42 PM Advance Directive(s) 08/31/2016 10:18 AM Advance Directive(s) 04/09/2016 12:30 PM Advance Directive(s) 04/06/2016 10:07 AM Advance Directive(s) 10/09/2011 11:10 AM Advance Directive Response Recorded Date/ Time Advance Directives No October 10:42am Living Will No October 20 8:26pm Power of Nailing Machine Operator Automatic No October 20 022 8:26pm Advance Directive Response Recorded Date/ Time Advance Directives No October 10:42am Living Will No October 21 1:16am Power of Nailing Machine Operator Automatic No October 21 022 1:16am Documents on File Type Date Recorded Patient Membership Correspondent Expl anation Advance Directive(s) 04/29/2021 2:28 PM Advance Directive(s) 10/09/2011 11:10 AM Advance Directive Response Recorded Date/ Time Advance Directives No April 02, 2022 2:41pm Living Will No April 02 2:41pm Power of Nailing Machine Operator Automatic No April 02, 2022 2:41pm Advance Directive Response Recorded Date/ Time Advance Directives No April 02, 2022 3:41pm Living Will No April 02 3:41pm Power of Nailing Machine Operator Automatic No April 02, 2022 3:41pm Advance Directive Response Recorded Date/ Time Advance Directives No December 02, 2022 9:40am Living Will No December 02 9:40am Power of Nailing Machine Operator Automatic No December 02 023 9:40am Advance Directive Response Recorded Date/ Time Advance Directives No January 06, 2024 9:19am Chief Complaint and Reason for Visit Chief Complaint FALL, DEBILITY FALL, DEBILITY Reason for Visit Adult failure to thr shakila Chronic anticoagulation Fall History of atrial fibrillation Chief Complaint FALL, DEBILITY FALL, DEBILITY FALL, DEBILITY FALL, DEBILITY Reason for Visit Adult failure to thr shakila Chronic anticoagulation Fall History of atrial fibrillation Chief Complaint FALL, DEBILITY FALL, DEBILITY FALL, DEBILITY FALL, DEBILITY LAB WORK LAB WORK LONGTERM LAB WORK MONTHLY EXAM Chief Complaint FALL, DEBILITY FALL, DEBILITY FALL, DEBILITY FALL, DEBILITY LAB WORK LAB WORK LONGTERM LAB WORK LONGTERM LABWORK MONTHLY EXAM Chief Complaint FALL, DEBILITY FALL, DEBILITY FALL, DEBILITY FALL, DEBILITY LAB WORK LAB WORK LONGTERM LAB WORK LONGTERM LABWORK MONTHLY EXAM LONGTERM LAB WORK Chief Complaint LONGTERM LAB WOR K MONTHLY EXAM LONGTERM LAB WORK MONTHLY EXAM MONTHLY EXAM LONGTERM LAB WORK Chief Complaint MONTHLY EXAM LONGTERM LAB WORK MONTHLY EXAM new problem MONTHLY EXAM LONGTERM LABWORK Chief Complaint MONTHLY EXAM LONGTERM LAB WORK MONTHLY EXAM ANNUAL EXAM MONTHLY EXAM LONGTERM LAB WORK Chief Complaint LONGTERM LAB WOR K NEW CONCERN MONTHLY EXAM LABWORK Chief Complaint Admit Date Pacer Check Remote February 14, 2024 12:11am MONTHLY EXAM February 15, 2024 9:13pm MONTHLY EXAM March 02, 2024 11 :09am NEW CONCERN March 13, 2024 1 :23pm LONGTERM LAB WORK April 04, 2024 5:00am LONGTERM LAB WORK April 07, 2024 4:00am LONGTERM LAB WORK April 07, 2024 10:45am MONTHLY EXAM MD April 11, 2024 12:58pm LONGTERM LAB WORK April 13 5:00am LABWORK April 17, 2024 7:00am NEW CONCERNS April 19, 2024 3:49pm MONTHLY EXAM May 01, 2024 4:59 pm NEW CONCERN May 11, 2024 2:3 7pm NEW ADMISSION May 18, 2024 1:3 0pm ADMISSION EXAM May 23, 2024 2:4 8pm COLD TOES PVD May 30, 2024 8:36 am Chief Complaint Admit Date Pacer Check Remote February 14, 2024 12:11am MONTHLY EXAM February 15, 2024 9:13pm MONTHLY EXAM March 02, 2024 11 :09am NEW CONCERN March 13, 2024 1 :23pm LONGTERM LAB WORK April 04, 2024 5:00am LONGTERM LAB WORK April 07, 2024 4:00am LONGTERM LAB WORK April 07, 2024 10:45am MONTHLY EXAM April 11, 2024 12:58pm LONGTERM LAB WORK April 13 5:00am LABWORK April 17, 2024 7:00am NEW CONCERNS April 19, 2024 3:49pm MONTHLY EXAM May 01, 2024 4:59 pm NEW CONCERN May 11, 2024 2:3 7pm NEW ADMISSION May 18, 2024 1:3 0pm LABWORK May 22, 2024 5:0 0am ADMISSION EXAM May 23, 2024 2:4 8pm COLD TOES PVD May 30, 2024 8:36 am Chief Complaint Admit Date MONTHLY EXAM March 02, 2024 11 :09am NEW CONCERN March 13, 2024 1 :23pm LONGTERM LAB WORK April 04, 2024 5:00am LONGTERM LAB WORK April 07, 2024 4:00am LONGTERM LAB WORK April 07, 2024 10:45am MONTHLY EXAM April 11, 2024 12:58pm LONGTERM LAB WORK April 13 5:00am LABWORK April 17, 2024 7:00am NEW CONCERNS April 19, 2024 3:49pm MONTHLY EXAM May 01, 2024 4:59 pm NEW CONCERN May 11, 2024 2:3 7pm Pacer Check Remote May 13, 2024 4:5 1pm NEW ADMISSION May 18, 2024 1:3 0pm Pacer Check Remote May 22, 2024 12: 21am LABWORK May 22, 2024 5:0 0am ADMISSION EXAM May 23, 2024 2:4 8pm LABWORK May 30, 2024 5:00 am COLD TOES PVD May 30, 2024 8:36 am Chief Complaint Admit Date MONTHLY EXAM March 02, 2024 11 :09am NEW CONCERN March 13, 2024 1 :23pm LONGTERM LAB WORK April 04, 2024 5:00am LONGTERM LAB WORK April 07, 2024 4:00am LONGTERM LAB WORK April 07, 2024 10:45am MONTHLY EXAM April 11, 2024 12:58pm LONGTERM LAB WORK April 13 5:00am LABWORK April 17, 2024 7:00am NEW CONCERNS April 19, 2024 3:49pm MONTHLY EXAM May 01, 2024 4:59 pm NEW CONCERN May 11, 2024 2:3 7pm Pacer Check Remote May 13, 2024 4:5 1pm NEW ADMISSION May 18, 2024 1:3 0pm Pacer Check Remote May 22, 2024 12: 21am LABWORK May 22, 2024 5:0 0am ADMISSION EXAM May 23, 2024 2:4 8pm LABWORK May 30, 2024 5:00 am COLD TOES PVD May 30, 2024 8:36 am LONGTERM LAB WORK June 05, 2024 4: 00am Chief Complaint Admit Date LONGTERM LAB WORK April 04, 2024 5:00am LONGTERM LAB WORK April 07, 2024 4:00am LONGTERM LAB WORK April 07, 2024 10:45am MONTHLY EXAM MD April 11, 2024 12:58pm LONGTERM LAB WORK April 13 5:00am LABWORK April 17, 2024 7:00am NEW CONCERNS April 19, 2024 3:49pm MONTHLY EXAM May 01, 2024 4:59 pm NEW CONCERN May 11, 2024 2:3 7pm Pacer Check Remote May 13, 2024 4:5 1pm NEW ADMISSION May 18, 2024 1:3 0pm Pacer Check Remote May 22, 2024 12: 21am LABWORK May 22, 2024 5:0 0am ADMISSION EXAM May 23, 2024 2:4 8pm LABWORK May 30, 2024 5:00 am COLD TOES PVD May 30, 2024 8:36 am LONGTERM LAB WORK June 05, 2024 4: 00am LABWORK June 23, 2024 5:0 0am Family History No Family History Records Found Relationship Condition Age at Onset Recorded Date/T kimberli father Cardiac disease Unknown brother Cardiac disease Unknown Summary Purpose Additional Source Comments Source Comments (unrecognize d section and content) In the event this informatio n is protected by the Federal Confidentiality of Alcohol and Drug Abuse Patient Records regulations: The Federal rules restrict any use of the information to criminally investigate or prosecute any alcohol or drug abuse patient.[facility] the event this information is protected by the Federal Confidentiality of Alcohol and Drug Abuse Patient Records regulations: The Federal rules restrict any use of the information to criminally investigate or prosecute any alcohol or drug abuse patient.[facility] the event this information is protected by the Federal Confidentiality of Alcohol and Drug Abuse Patient Records regulations: The Federal rules restrict any use of the information to criminally investigate or prosecute any alcohol or drug abuse patient.[facility] the event this information is protected by the Federal Confidentiality of Alcohol and Drug Abuse Patient Records regulations: The Federal rules restrict any use of the information to criminally investigate or prosecute any alcohol or drug abuse patient.[facility] the event this information is protected by the Federal Confidentiality of Alcohol and Drug Abuse Patient Records regulations: The Federal rules restrict any use of the information to criminally investigate or prosecute any alcohol or drug abuse patient.[facility] the event this information is protected by the Federal Confidentiality of Alcohol and Drug Abuse Patient Records regulations: The Federal rules restrict any use of the information to criminally investigate or prosecute any alcohol or drug abuse patient.[facility] the event this information is protected by the Federal Confidentiality of Alcohol and Drug Abuse Patient Records regulations: The Federal rules restrict any use of the information to criminally investigate or prosecute any alcohol or drug abuse patient.[facility] Reason for Visit (unrecogniz ed section and content) Reason Comments fax request Reason Comments Medicare Wellness Exam Reason Comments Patient Update Reason Comments form dropping off Reason Onset Date Comments Population Health Navigation Outreach 06/05/2022 HCC Gaps Reason Comments Blood In Urine Reason Onset Date Comments Results 07/17/2024 Care Teams (unrecognized sec tion and content) Team Status: Active Member Role Status Dates Dr. David Miramontes MD Primary Care Provider Active Team Status: Active Member Role Status Dates Dr. David Miramontes MD Primary Care Provider Active Start: April 04, 2024 David GARCIA MD Attending Provider Active Start: April 04, 2024 Team Status: Active Member Role Status Dates Dr. David Miramontes MD Primary Care Provider Active Start: April 07, 2024 David GARCIA MD Attending Provider Active Start: April 07, 2024 David GARCIA MD Referring Provider Active Start: April 07, 2024 Team Status: Active Member Role Status Dates Dr. David Miramontes MD Primary Care Provider Active Start: April 07, 2024 Dr. David Miramontes MD Attending Provider Active Start: April 07, 2024 David GARCIA MD Referring Provider Active Start: April 07, 2024 Team Status: Inactive Member Role Status Dates Dr. David Miramontes MD Primary Care Provider Active Start: April 11, 2024 End: April 11, 2024 Dr. David Miramontes MD Attending Provider Active Start: April 11, 2024 End: April 11, 2024 Team Status: Active Member Role Status Dates Dr. David Miramontes MD Primary Care Provider Active Start: April 13, 2024 David GARCIA MD Attending Provider Active Start: April 13, 2024 Team Status: Active Member Role Status Dates Dr. David Miramontes MD Primary Care Provider Active Start: April 17, 2024 David GARCIA MD Attending Provider Active Start: April 17, 2024 Team Status: Inactive Member Role Status Dates Dr. David Miramontes MD Primary Care Provider Active Start: April 19, 2024 End: April 19, 2024 Marimar Zimmer DRY WALL APPLICATOR, DRY WALL APPLICATOR-C Attending Provider Active Start: April 19, 2024 End: April 19, 2024 Team Status: Inactive Member Role Status Dates Dr. David Miramontes MD Primary Care Provider Active Start: May 01, 2024 End: May 01, 2024 Marimar Zimmer DRY WALL APPLICATOR, DRY WALL APPLICATOR-C Attending Provider Active Start: May 01, 2024 End: May 01, 2024 Team Status: Inactive Member Role Status Dates Dr. David Miramontes MD Primary Care Provider Active Start: May 11, 2024 End: May 11, 2024 Marimar Zimmer DRY WALL APPLICATOR, DRY WALL APPLICATOR-C Attending Provider Active Start: May 11, 2024 End: May 11, 2024 Team Status: Inactive Member Role Status Dates Dr. David Miramontes MD Primary Care Provider Active Start: May 13, 2024 End: May 13, 2024 Dr. Edson Quinn MD Attending Provider Active S tart: May 13, 2024 End: May 13, 2024 Dr. Edson Quinn MD Referring Provider Active S tart: May 13, 2024 End: May 13, 2024 Team Status: Inactive Member Role Status Dates Dr. David Miramontes MD Primary Care Provider Active Start: May 18, 2024 End: May 18, 2024 Marimar Zimmer DRY WALL APPLICATOR, DRY WALL APPLICATOR-C Attending Provider Active Start: May 18, 2024 End: May 18, 2024 Team Status: Inactive Member Role Status Dates Dr. David Miramontes MD Primary Care Provider Active Start: May 22, 2024 End: May 22, 2024 Dr. Edson Quinn MD Attending Provider Active S tart: May 22, 2024 End: May 22, 2024 Dr. Edson Quinn MD Referring Provider Active S tart: May 22, 2024 End: May 22, 2024 Team Status: Inactive Member Role Status Dates Dr. David Miramontes MD Primary Care Provider Active Start: May 22, 2024 End: May 22, 2024 David GARCIA MD Attending Provider Active Start: May 22, 2024 End: May 22, 2024 Team Status: Inactive Member Role Status Dates Dr. David Miramontes MD Primary Care Provider Active Start: May 23, 2024 End: May 23, 2024 Dr. David Miramontes MD Attending Provider Active Start: May 23, 2024 End: May 23, 2024 Team Status: Inactive Member Role Status Dates Dr. David Miramontes MD Primary Care Provider Active Start: May 30, 2024 End: May 30, 2024 David GARCIA MD Attending Provider Active Start: May 30, 2024 End: May 30, 2024 Team Status: Inactive Member Role Status Dates Dr. David Miramontes MD Primary Care Provider Active Start: May 30, 2024 End: May 30, 2024 Dr. David Miramontes MD Attending Provider Active Start: May 30, 2024 End: May 30, 2024 Dr. David Miramontes MD Referring Provider Active Start: May 30, 2024 End: May 30, 2024 Team Status: Active Member Role Status Dates Dr. David Miramontes MD Primary Care Provider Active Start: May 30, 2024 Dr. David Miramontes MD Referring Provider Active Start: May 30, 2024 Dr. Josiah Klein MD Attending Provider Active S tart: May 30, 2024 Team Status: Active Member Role Status Dates Dr. David Miramontes MD Primary Care Provider Active Start: May 30, 2024 David GARCIA MD Attending Provider Active Start: May 30, 2024 Team Status: Inactive Member Role Status Dates Dr. David Miramontes MD Primary Care Provider Active Start: June 05, 2024 End: June 05, 2024 David GARCIA MD Attending Provider Active Start: June 05, 2024 End: June 05, 2024 David GARCIA MD Referring Provider Active Start: June 05, 2024 End: June 05, 2024 Team Status: Inactive Member Role Status Dates Dr. David Miramontes MD Primary Care Provider Active Start: June 23, 2024 End: June 23, 2024 David GARCIA MD Attending Provider Active Start: June 23, 2024 End: June 23, 2024 [employer] Buy[employer] Relationship Specialty Start Date End Date Nicolas Cardenas MD [address] [place] [address] PCP - General 02/12/03 [employer] Buyer Relationship Specialty Start Date End Date Nicolas Cardenas MD [address] [place] [address] PCP - General 02/12/03 [employer] Buyer Relationship Specialty Start Date End Date Nicolas Cardenas MD [address] [place] [address] PCP - General 02/12/03 [employer] Buyer Relationship Specialty Start Date End Date Nicolas Cardenas MD [address] [place], [place] [id number] PCP - General 02/12/03 Team Status: Active Member Role Status Dates Dr. Nicolas Cardenas MD Family Provider Active Dr. Nicolas Cardenas MD Primary Care Provider Active Team Status: Inactive Member Role Status Dates Dr. Nicolas Cardenas MD Primary Care Provider Active Marimar Zimmer DRY WALL APPLICATOR, DRY WALL APPLICATOR-C Attending Provider Active Team Status: Inactive Member Role Status Dates Dr. Nicolas Cardenas MD Primary Care Provider Active Dr. David Miramontes MD Attending Provider Active Team Status: Inactive Member Role Status Dates Dr. Nicolas Cardenas MD Primary Care Provider Active Jhonny Tomas MD Attending Provider Active Team Status: Inactive Member Role Status Dates Dr. Nicolas Cardenas MD Primary Care Provider Active David Miramontes MD Attending Provider Active Team Status: Inactive Member Role Status Dates Dr. Nicolas Cardenas MD Primary Care Provider Active David GARCIA MD Attending Provider Active Team Status: Inactive Member Role Status Dates Dr. David Miramontes MD Primary Care Provider Active Start: February 14, 2024 End: February 14, 2024 Dr. Edson Quinn MD Attending Provider Active S tart: February 14, 2024 End: February 14, 2024 Dr. Edson Quinn MD Referring Provider Active S tart: February 14, 2024 End: February 14, 2024 Team Status: Inactive Member Role Status Dates Dr. David Miramontes MD Primary Care Provider Active Start: February 15, 2024 End: February 15, 2024 Dr. David Miramontes MD Attending Provider Active Start: February 15, 2024 End: February 15, 2024 Team Status: Inactive Member Role Status Dates Dr. David Miramontes MD Primary Care Provider Active Start: March 02, 2024 End: March 02, 2024 ERWIN Doss Attending Provider Active St art: March 02, 2024 End: March 02, 2024 Team Status: Inactive Member Role Status Dates Dr. David Miramontes MD Primary Care Provider Active Start: March 13, 2024 End: March 13, 2024 Marimar Zimmer DRY WALL APPLICATOR, DRY WALL APPLICATOR-C Attending Provider Active Start: March 13, 2024 End: March 13, 2024 Team Status: Active Member Role Status Dates Dr. David Miramontes MD Primary Care Provider Active Start: May 22, 2024 David GARCIA MD Attending Provider Active Start: May 22, 2024 Team Status: Active Member Role Status Dates Dr. David Miramontes MD Primary Care Provider Active Start: May 30, 2024 Dr. Josiah Klein MD Attending Provider Active S tart: May 30, 2024 Team Status: Active Member Role Status Dates Dr. David Miramontes MD Primary Care Provider Active Start: June 05, 2024 David GARCIA MD Attending Provider Active Start: June 05, 2024 Team Status: Inactive Member Role Status Dates Dr. David Miramontes MD Primary Care Provider Active Start: May 13, 2024 End: May 13, 2024 Dr. Edson Quinn MD Attending Provider Active S tart: May 13, 2024 End: May 13, 2024 Team Status: Inactive Member Role Status Dates Dr. David Miramontes MD Primary Care Provider Active Start: May 22, 2024 End: May 22, 2024 Dr. Edson Quinn MD Attending Provider Active S tart: May 22, 2024 End: May 22, 2024 Goals (unrecognized section and content) Goals may be documented in a n alternate sectionGoals may be documented in an alternate sectionGoals may be documented in an alternate sectionGoals may be documented in an alternate sectionGoals may be documented in an alternate sectionGoals may be documented in an alternate sectionGoals may be documented in an alternate sectionGoals may be documented in an alternate sectionGoals may be documented in an alternate sectionGoals may be documented in an alternate section (unrecognized sect ion and content) No Status Records FoundNo Status Records FoundNo Status Records Found INFORMATION SOURCE (unrecogn ized section and content) DATE CREATED AUTHOR 06/08/2022 [facility] DATE CREATED AUTHOR AUTHOR'S ORGANIZ ATION 07/17/2024 [facility] DATE CREATED AUTHOR AUTHOR'S ORGANIZ ATION 08/19/2024 [facility] FOR RECORDS PERTAINING TO PATIENTS WHO ARE OR HAVE BEEN ENROLLED IN A CHEMICAL DEPENDENCY/SUBSTANCEABUSE PROGRAM, SOME INFORMATION MAY BE OMITTED. This clinical summary was aggregated from multiple sources. Caution should be exercised in using it in the provision of clinical care. This summary normalizes information from multiple sources, and as a consequence, information in this document may materially change the coding, format and clinical context of patient data. In addition, data may be omitted in some cases. CLINICAL DECISIONS SHOULD BE BASED ON THE PRIMARY CLINICAL RECORDS. [facility] provides no warranty or guarantee of the accuracy or completeness of information in this document.
[2024-08-22 08:07] LABS: Absolute Lymphocyte Count 1.28 X10^3/uL (0.83-4.51); Basophil# 0.05 X10^3/uL; Basophil% 0.7 % (0-1); Eosinophil# 0.19 X10^3/uL; Eosinophils% 2.6 % (0-5); Hematocrit 41.1 % (40-54); Hemoglobin 12.9 g/dL (13.0-16.5); Lymphocyte # 1.28 X10^3/ul (0.83-4.51); Lymphocyte % 17.6 % (19-41); Mean Corp Hgb Conc 31.4 g/dL (32-36); Mean Corpuscular Hgb 32.2 pg (27.0-32.0); Mean Corpuscular Volume 102.5 fL (80-94); Mean Platelet Vol. 11.4 fl (6.2-12.0); Monocyte# 0.73 X10^3/uL; NRBC Flagged by Analyzer 0 % (0-5); Neutrophil # 4.98 X10^3/uL (2.7-7.7); Neutrophil % 68.5 % (47-70); Platelet Count 170 K/mm3 (150-450); RBC Distribution Width CV 15.3 % (11.6-14.6); RBC Distribution Width SD 57.1 fl (35.1-43.9); Red Blood Count 4.01 M/mm3 (4.6-6.2); White Blood Count 7.3 K/mm3 (4.4-11.0)
[2024-08-22 08:21] LABS: ALB/GLOB Ratio 1.3 RATIO (0.9-2.4); AST(SGOT) 34 U/L (<=37); Alanine Aminotransfer ALT/SGPT 13 U/L (<=46); Albumin, Serum 3.5 g/dL (3.4-4.8); Alkaline Phosphatase 106 U/L (40-129); Anion Gap 8 (5-15); BUN 13 mg/dL (4-19); BUN/Creat Ratio 13.7 RATIO (10-20); Calcium,Total 8.9 mg/dL (7.6-11.0); Carbon Dioxide 28.1 mmol/L (21.0-32.0); Chloride 107 mmol/L (98-108); Creatinine, Serum 0.96 mg/dL (0.70-1.20); EST Glomerular Filtration Rate 78 (>60); Globulin 2.7 g/dL (2.2-4.2); Glucose 82 mg/dL (70-99); Potassium 3.8 mmol/L (3.3-5.1); Protein, Total 6.2 g/dL (5.9-8.4); Sodium Level 142 mmol/L (133-145); Total Bilirubin 0.31 mg/dL (0.00-1.30)
== END ==
LOC: OLS.WHLCAR 05:00
PROVIDERS: PCP Internal Medicine; Visit Provider Internal Medicine
DX: G30.9 Alzheimer's disease, unspecified (principal); F02.818 Dementia in other diseases classified elsewhere, unspecified severity, with other behavioral disturbance; G25.0 Essential tremor; I48.20 Chronic atrial fibrillation, unspecified
CPT/HCPCS: 36415; 80053; 85025

== ENCOUNTER → 2024-08-31 | Outpatient (REF) | payer MEDICARE, OTHER, SELFPAY ==
--- OUTSIDE RECORDS SUMMARY | 2024-08-31 04:48 | XMS RPT_ITS | CCD ---
Author Organization [facility] Care Team Providers Care Spa Director Name Role Phone Nicolas Kaur MD Primary Care Provider Dr. Nicolas Kaur Primary Care Provider Dr. Abhinav Leigh Emergency Provider Dr. Robinson Nguyen Admit Provider Dr. Robinson Nguyen Attending Provider Dr. Robinson Nguyen Other Provider Dr. Kevin Nichole Attending Provider Dr. Kevin Nichole Other Provider Dr. Desire Leung Attending Provider Nicolas Kaur MD Primary Care Provider Mesha HAND CUTTER, HAND CUTTER-C Marimar Attending Provider Dr. Nicolas Justin Primary Care Provider Mesha HAND CUTTER, HAND CUTTER-C Marimar Attending Provider Dr. David Nina Attending Provider Unavailable Primary Care Provider UnavailNICOLAS Blankenship Referring Unavailable NICOLAS KAUR Attending Unavailable NICOLAS KAUR Primary Care Unavailable Dr. Nicolas Kaur Primary Care Provider Mesha HAND CUTTER, HAND CUTTER-C Marimar Attending Provider Dr. David Nina Attending Provider Dr. Nicolas Kaur Primary Care Provider Mesha HAND CUTTER, HAND CUTTER-C Marimar Attending Provider Dr. Frandy Ninaongbe Attending Provider Dr. Nicolas Kaur Primary Care Provider Mesha HAND CUTTER, HAND CUTTER-C Marimar Attending Provider Dr. David Miramontes Attending Provider [phone] Dr. David Miramontes MD Primary Care Provider Dr. Edson Quinn MD Attending Provider Dr. Edson Quinn MD Referring Provider [phone] Dr. David Miramontes MD Attending Provider Isidro Can Attending Provider Mesha HAND CUTTER-CMarimar Attending Provider David Miramontes MD Attending Provider Unavailapril Miramontes MD, David Referring Provider Unavailapril Miramontes MD, Dr. Win Referring Provider [phone] Dr. Josiah Klein MD Attending Provider Kulwinder ALAMO, Dr. Win Primary Care Provider uKlwinder ALAMO, Dr. Win Attending Provider [phone] Dr. Edson Quinn MD Attending Provider [phone] Dr. Edson Quinn MD Referring Provider [phone] Dr. David Miramontes MD Primary Care Provider Mesha HAND CUTTER-CMarimar Attending Provider Unavailable Primary Care Provider Unavailabl DIANA Sampson Attending Unava ilable SELF Referring Unavailable Dr. David Miramontes MD Primary Care Provider Mesha HAND CUTTER-CMarimar Attending Provider David Miramontes MD Attending Provider Unavailapril Miramontes MD, Dr. Win Attending Provider [phone] Oleghe MD, Efewongbe Referring Provider Unavaila ble Oleghe OLS, Efewongbe Attending Unavailabl e Oleghe, Efewongbe Primary Care Unavailable Oleghe OLS, Efewongbe Attending Unavailabl e Oleghe, Efewongbe Primary Care Unavailable Oleghe, Efewongbe Attending Unavailable Oleghe, Efewongbe Primary Care Unavailable Mesha CARRASCO, Marimar Attending Unavailable Oleghe, Efewongbe Primary Care Unavailable Oleghe OLS, Efewongbe Attending Unavailabl e Oleghe, Efewongbe Primary Care Unavailable Oleghe OLS, Efewongbe Attending Unavailabl e Oleghe, Efewongbe Primary Care Unavailable Oleghe, Efewongbe Primary Care Unavailable Oleghe, Efewongbe Referring Unavailable Oleghe, Efewongbe Attending Unavailable Oleghe OLS, Efewongbe Referring Unavailabl e Oleghe OLS, Efewongbe Attending Unavailabl e Oleghe, Efewongbe Primary Care Unavailable Josiah Klein Attending Unavailable Oleghe, Efewongbe Primary Care Unavailable Oleghe, Efewongbe Referring Unavailable Oleghe OLS, Efewongbe Attending Unavailabl e [...] Oleghe, Efewongbe Primary Care Unavailable Oleghe, Efewongbe Primary Care Unavailable Kai, [place] Referring Unavailable Kai, [place] Attending Unavailable Oleghe, Efewongbe Primary Care Unavailable Kai, Edson Attending Unavailable Kai, [place] Referring Unavailable Oleghe, Efewongbe Primary Care Unavailable Oleghe, Efewongbe Attending Unavailable Oleghe, Efewongbe Primary Care Unavailable Tickton HAND CUTTER, Marimar Attending Unavailable Oleghe OLS, Efewongbe Attending Unavailabl e Oleghe, Efewongbe Primary Care Unavailable Oleghe OLS, Efewongbe Referring Unavailabl e Oleghe, Efewongbe Primary Care Unavailable Oleghe, Efewongbe Attending Unavailable Oleghe OLS, Efewongbe Attending Unavailabl e Oleghe, Efewongbe Primary Care Unavailable Oleghe, Efewongbe Primary Care Unavailable [place] HAND CUTTER, Marimar Attending Unavailable Oleghe, Efewongbe Primary Care Unavailable Kai, Edson Referring Unavailable Kai, [place] Henry Attending Unavailable Oleghe, Efewongbe Primary Care Unavailable Oleghe, Efewongbe Attending Unavailable Oleghe, Efewongbe Primary Care Unavailable [place] HAND CUTTER, Marimar Attending Unavailable FerulloKyung Attending Unavailable Oleghe, Efewongbe Primary Care Unavailable Oleghe, Efewongbe Primary Care Unavailable Kai, Edson Attending Unavailable Kai, Edson Referring Unavailable Oleghe, Efewongbe Primary Care Unavailable [place] HAND CUTTER, Marimar Attending Unavailable Oleghe, Efewongbe Primary Care Unavailable Oleghe, Efewongbe Attending Unavailable Oleghe, Efewongbe Primary Care Unavailable Kai, Edson Attending Unavailable Oleghe, Efewongbe Primary Care Unavailable Isidro Can Attending Unavailable Oleghe, Efewongbe Primary Care Unavailable [place] HAND CUTTER, Marimar Attending Unavailable Oleghe, Efewongbe Primary Care Unavailable Kai, Edson Referring Unavailable Kai, [place] Attending Unavailable Oleghe, Efewongbe Primary Care Unavailable Oleghe, Efewongbe Attending Unavailable Oleghe, Efewongbe Primary Care Unavailable [place] HAND CUTTER, Marimar Attending Unavailable Oleghe, Efewongbe Primary Care Unavailable Ferullo, Kyung Attending Unavailable Oleghe, Efewongbe Primary Care Unavailable [place] HAND CUTTER, Marimar Attending Unavailable Oleghe, Efewongbe Primary Care Unavailable Kai, [place] Henry Referring Unavailable Kai, Edson Attending Unavailable Oleghe OLS, Efewongbe Attending Unavailabl e Oleghe, Efewongbe Primary Care Unavailable Oleghe OLS, Efewongbe Attending Unavailabl e David Miramontes Primary Care Unavailable Medications Current Medications Medication Drug Class(es) Dates Sig (Normalized) Sig (Original) aluminum hydroxide 40 mg/ml / magnesium hydroxide 40 mg/ml / simethicone 4 mg/ml oral suspension (6 sources) Start: 07-08-2023 Alum-Mag Hydroxide-Simeth 200-200-20 mg/5 mL suspension Active 15 mL PO Q4H as needed July 08, 2023 12:00am 1 and 3 hours after meals and at bedtime apixaban 5 mg oral tablet (20 sources) Factor Xa Inhibitor Start: 11-08-2018 End: 08-14-2024 take 1 tablet by mouth twice daily Apixaban (Eliquis) 5 mg tablet Active 5 mg PO TWICE A DAY 180 August 14, 2024 4:16pm Comment on above: Take 5 mg by mouth t wice daily. Per cardiology. Aspirin (1 source) Platelet Aggregation Inhibitor, Nonsteroidal Anti-inflammatory Drug Start: 10-20-2021 aspirin Active October 20, 2021 12:00am benzocaine 0.2 mg/mg / menthol 0.001 mg/mg / zinc chloride 0.0015 mg/mg oral gel (6 sources) Standardized Chemical Allergen Start: 07-08-2023 Benzocaine-Mentho l-Zinc Chlor (Orajel 3x Mouth Sores) 20-0.1-0.15 % gel Active NMA MUCOUS MEM July 08, 2023 12:00am cimetidine 200 mg oral tablet (20 sources) Histamine-2 Receptor Antagonist Start: 02-13-2022 End: [...] daily. docusate sodium 50 mg / sennosides, longterm 8.6 mg oral tablet (20 sources) Start: 10-22-2021 End: 02-26-2022 Sennosides-Docusate Sodium (Stool Softener-Stimulant Laxat) 8.6-50 mg tablet Active 2 {tbl} PO TWICE A DAY 180 3 February 26, 2022 5:15pm Magnesium Hydroxide (6 sources) Start: 07-08-2023 take 1 mL by mouth once daily as needed Magnesium Hydroxide 400 mg/5 mL suspension Active 30 mL PO DAILY as needed July 08, 2023 12:00am potassium chloride 10 meq extended release oral tablet (20 sources) Start: 06-16-2024 take 1 tablet by mouth once daily Potassium Chloride 10 mEq tablet extended release Active 10 meq PO DAILY 90 June 16, 2024 1:13pm Start: 08-23-2018 End: 06-16-2024 take 1 tablet by mouth once daily Potassium Chloride 20 mEq tablet extended release Discontinued 20 meq PO DAILY 90 3 April 01, 2023 10:42am June 16, 2024 1:13pm potassium chlori de ER (KLOR-CON M20) 20 mEq tablet Take 20 mEq by mouth once daily. Active Comment on above: Take 20 mEq by mouth once daily. QUEtiapine 25 mg oral tablet (12 sources) Atypical Antipsychotic Start: take 1 tablet by mouth once daily in the morning, then take 2 tablets by mouth in the evening Quetiapine (Seroquel) 25 mg tablet Active 75 mg PO DAILY 270 90 3 November 08, 2023 5:02pm 1 tab a.m. and 2 tabs p.m. Start: 07-22-2023 End: 11-08-2023 Quetiapine (Seroquel) 25 mg tablet Discontinued 12.5 mg PO DAILY 45 90 July 22, 2023 12:00am November 08, 2023 5:03pm sertraline 25 mg oral tablet (6 sources) Serotonin Reuptake Inhibitor Start: 05-05-2024 take 1 tablet by mouth once daily Sertraline (Zoloft) 25 mg tablet Active 25 mg PO daily 90 3 May 05, 2024 1:00am Completed/Discontinued Medications Medication Drug Class(es) Dates Sig (Normalized) Sig (Original) amLODIPine 5 mg oral tablet (15 sources) Dihydropyridine Calcium Channel Franki Start: 9 End: 9 take 1 tablet by mouth once daily Amlodipine 5 mg tablet Discontinued 5 mg PO DAILY August 05, 2018 12:00am August 23, 2018 3:20pm docosahexaenoic acid 120 mg / eicosapentaenoic acid 180 mg oral capsule (15 sources) Start: 9 End: 9 Docosahexaenoic Acid-Epa 120-180 mg capsule Discontinued 1 NMA PO DAILY August 05, 2018 12:00am August 23, 2018 2:32pm docosahexaenoic acid 144 mg / eicosapentaenoic acid 216 mg / vitamin e 2 unt oral capsule (15 sources) Start: 9 End: 4 Ransom-3 Fatty Acids-Fish Oil (Fish Oil) 360-1,200 mg capsule Discontinued 1 NMA PO DAILY November 08, 2018 12:00am July 08, 2023 11:50am supplement finasteride 5 mg oral tablet (20 sources) 5-alpha Reductase Inhibitor Start: 9 End: 5 take 1 tablet by mouth at bedtime Finasteride 5 mg tablet Discontinued 5 mg PO AT BEDTIME 90 3 March 06, 2024 2:16pm April 03, 2024 7:10pm BPH Comment on above: Take 1 tablet by glenna once daily. furosemide 40 mg oral tablet (20 sources) Loop Diuretic Start: 9 End: 5 take 1 tablet by mouth once daily Furosemide 40 mg tablet Discontinued 40 mg PO DAILY 90 3 March 31, 2023 7:47pm March 06, 2024 2:16pm Start: 08-23-2018 End: 01-09-2019 take 2 tablets by mouth once daily Furosemide 20 mg tablet Discontinued 40 mg PO DAILY 60 11 August 23, 2018 3:20pm January 09, 2019 [...] Take 1 tablet by glenna once daily. memantine hydrochloride 5 mg oral tablet (20 sources) B-bgqsor-A-aspartat e Receptor Antagonist Start: 3 End: 4 take 1 tablet by mouth twice daily Memantine 5 mg tablet Discontinued 0 .ROUTE .COMPLEX 180 3 March 31, 2023 7:49pm July 08, 2023 11:50am TAKE 1 TABLET BY MOUTH TWICE DAILY Menthol / Zinc Oxide (20 sources) Start: 2 End: 4 Menthol-Zinc Oxide (Calmoseptine) 0.44-20.6 % ointment Discontinued 1 NMA TOPICAL TWICE A DAY 113 3 February 26, 2022 5:14pm July 08, 2023 11:50am Please contact the information source for Protocol details. Start: 02-26-2022 End: 07-08-2023 Menthol-Zinc Oxide (Calmosep ame) 0.44-20.6 % ointment Discontinued 1 NMA TOPICAL [...] 1 NMA TOPICAL TWICE A DAY 0 0 October 22, 2021 12:00am February 26, [...] A DAY 0 October 22, 2021 12:00am Ransom-3 Fatty Acids (Fish Oil Concentrate) 1,000 mg capsule (15 sources) Start: 08-23-2018 End: 11-08-2018 take 1 capsule by mouth once daily Ransom-3 Fatty Acids (Fish Oil Concentrate) 1,000 mg capsule Discontinued 1000 mg PO DAILY August 23, 2018 12:00am November 08, 2018 1:59pm Start: 08-23-2018 End: 11-08-2018 take 1 capsule by mouth once daily Ransom-3 Fatty Acids (Fish Oil Concentrate) 1,000 mg capsule Discontinued 1000 MG PO DAILY August 22, 2018 11:00pm November 08, 2018 12:59pm Start: 08-23-2018 End: 11-08-2018 take 1 capsule by mouth once daily Ransom-3 Fatty Acids (Fish Oil Concentrate) 1,000 mg capsule Discontinued 1000 MG PO DAILY August 23, 2018 12:00am November 08, 2018 1:59pm omeprazole 20 mg delayed release oral capsule (20 sources) Proton Pump Inhibitor Start: 08-05-2018 End: 07-08-2023 take 1 capsule by mouth once daily Omeprazole 20 mg capsule,delayed release(DR/EC) Discontinued 20 mg PO DAILY 90 3 February 26, 2022 5:14pm July 08, 2023 11:50am GERD Comment on above: Take 1 capsule by cox monett once daily. Perflutren Lipid Microspheres ([place] REIT) 1.1 mg/mL suspension (15 sources) Start: 08-05-2018 End: 08-23-2018 Perflutren Lipid Microspheres (Definity) 1.1 mg/mL suspension Discontinued mg .Route 0 August 05, 2018 12:00am August 23, 2018 [...] 2:30pm inj primidone 50 mg oral tablet (15 sources) Anti-epileptic Agent Start: 08-05-2018 End: 04-10-2019 take 1 tablet by mouth twice daily Primidone 50 mg tablet Discontinued 50 mg PO TWICE A DAY August 05, 2018 12:00am April 10, 2019 11:57am seizures terazosin 5 mg oral capsule (20 sources) alpha-Adrenergic Franki Start: 08-05-2018 End: 07-08-2023 take 1 capsule by mouth once daily Terazosin 5 mg capsule Discontinued 5 mg PO DAILY 90 3 March 31, 2023 7:49pm July 08, 2023 11:50am Comment on above: Take 1 capsule by mouth daily at bedtime . vitamin b6 100 mg oral tablet (20 sources) Start: 02-21-2008 End: 07-08-2023 take 1 tablet by mouth once daily Pyridoxine (Vitamin B6) 100 mg tablet Discontinued 100 mg PO DAILY 90 February 26, 2022 5:14pm July 08, 2023 11:50am vitamin Comment on above: Take one(1) tablet daily. Problems Active Problems Problem Classification Problem Date Documented Da te Episodic/Chronic Cardiac dysrhythmias (20 sources) Atrial fibrillation; Translations: [Unspecified atrial fibrillation] Onset: 08-04-2018 08-04-2018 Chronic Cardiac dysrhythmias (15 sources) Bradycardia; Translations: [Bradycardia, unspecified] 12-13-2018 Episodic [...] disturbance] Onset: 09-29-2021 Chronic E Codes: Fall (17 sources) Fall; Translations: [Unspecified fall, initial encounter] [...] [Other fatigue] Onset: 08-07-2024 Episodic Other aftercare (15 sources) Long-term current use of anticoagulant; Translations: [[facility] (current) use of anticoagulants] 10-30-2021 Episodic Other aftercare (2 sources) 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; Translations: [Long-term (current) use of anticoagulants] Episodic Other circulatory disease (1 source) Other specified peripheral vascular diseases; Translations: [Other specified peripheral vascular diseases] Onset: 06-05-2024 Chronic Other circulatory disease (15 sources) H/O: atrial fibrillation; Translations: [Personal history [...] Chronic Other nutritional; endocrine; and metabolic disorders (15 sources) Adult failure to thrive syndrome; Translations: [...] Test Name Value Interpretation Reference Range Facility Absolute lymphocyte countOrd ered By: David Miramontes on 08-22-2024 Lymphocytes Auto (Unsp spec) [#/Vol] 1.28 10*3/uL 0.83-4.51 [facility] Absolute neutrophil countOrd ered By: David Miramontes on 08-22-2024 Neutrophils (Bld) [#/Vol] 5.0 10*3/uL 2.0-7.7 [facility] Anion gap in Serum or Plasma Ordered By: David Miramontes on 08-22-2024 Anion gap [Moles/Vol] 8 mmol/L 5-15 [facility] Automated lymphocyte count a s percentage of total leukocytesOrdered By: David Miramontes on 08-22-2024 Lymphocytes/100 WBC Auto (Unsp spec) 17.6 % Low 19-41 [facility] BUN/creatinine ratioOrdered By: David Miramontes on 08-22-2024 Urea nitrogen/Creatinine [Mass ratio] 13.7 mg/mg 10-20 [facility] Basophil percentageOrdered B y: David Miramontes on 08-22-2024 Basophils/100 WBC (Bld) 0.7 % 0-1 [facility] Bilirubin, totalOrdered By: David Miramontes on 08-22-2024 Bilirubin [Mass/Vol] 0.31 mg/dL 0.00-1.30 [facility] Carbon dioxide, total [Moles /volume] in Central venous bloodOrdered By: David Miramontes on 08-22-2024 CO2 [Moles/Vol] 28.1 mmol/L 21.0-32.0 [facility] Chloride assayOrdered By: Mayra Miramontes on 08-22-2024 Chloride [Moles/Vol] 107 mmol/L 98-108 [facility] Eosinophil percentageOrdered By: David Miramontes on 08-22-2024 Eosinophils/100 WBC (Bld) 2.6 % 0-5 [facility] Erythrocyte distribution wid th ratioOrdered By: David Miramontes on 08-22-2024 Erythrocyte distribution width (RBC) [Ratio] 15.3 % High 11.6-14.6 [facility] Erythrocyte distribution wid th standard deviationOrdered By: David Miramontes on 08-22-2024 Erythrocyte distribution width (RBC) [Ratio] 57.1 fl High 35.1-43.9 [facility] Glomerular filtration rate ( GFR) estimation/1.73 sq m using serum, plasma, or whole bOrdered By: David Miramontes on 08-22-2024 GFR/1.73 sq M.predicted among non-blacks MDRD (S/P/Bld) [Vol rate/Area] 78 mL/min/{1.73_m2} >60 [facility] Comment on above: mL/min/1.73m2 CKD-EP I Creatinine Equation (2020) Hematocrit Auto (Bld) [Volum e fraction]Ordered By: David Miramontes on 08-22-2024 Hematocrit (Bld) [Volume fraction] 41.1 % 40-54 [facility] Hemoglobin measurementOrdere d By: David Miramontes on 08-22-2024 Hemoglobin (Bld) [Mass/Vol] 12.9 g/dL Low 13.0-16.5 [facility] Immature granulocytes/100 WB C Auto (Bld)Ordered By: David Miramontes on 08-22-2024 Immature granulocytes/100 WBC (Bld) 0.600 % 0.0-0.9 [facility] Comment on above: IG% - Immature Granu locytes (promyelocytes, myelocytes and metamyelocytes) > 1% indicates that a LEFT SHIFT is Present. Laboratory - Chemistry and C hemistry - challengeOrdered By: David Pinkamnatereza on 08-22-2024 AST [Catalytic activity/Vol] 34 U/L <38 [facility] MCV (mean corpuscular volume ) determinationOrdered By: Mayrawaynefeliciaingris Pinkamnatereza on 08-22-2024 MCV (RBC) [Entitic vol] 102.5 fL High 80-94 [facility] Mean corpuscular hemoglobin (MCH) determinationOrdered By: Mayrawaynefeliciaingris Pinkamnatereza on 08-22-2024 MCH (RBC) [Entitic mass] 32.2 pg High 27.0-32.0 [facility] Mean corpuscular hemoglobin concentration (MCHC) determinationOrdered By: David Miramontes on 08-22-2024 MCHC (RBC) [Mass/Vol] 31.4 g/dL Low 32-36 [facility] Mean platelet volume determi nationOrdered By: David Pinkamnatereza on 08-22-2024 Platelet mean volume (Bld) [Entitic vol] 11.4 fL 6.2-12.0 [facility] Monocyte percentageOrdered B y: Frandyfeliciaingris Pinkamnatereza on 08-22-2024 Monocytes/100 WBC (Bld) 10.0 % 0-10 [facility] Neutrophil percentageOrdered By: Frandyfeliciaingris Pinkamnatereza on 08-22-2024 Neutrophils/100 WBC (Bld) 68.5 % 47-70 [facility] Nucleated red blood cell per centageOrdered By: Frandyfeliciaingris Pinkamnatereza on 08-22-2024 Nucleated RBC/100 WBC (Bld) [Ratio] 0 % 0-5 [facility] Platelet countOrdered By: Mayra fawadingris Pinkamnatereza on 08-22-2024 Platelets (Bld) [#/Vol] 170 10*3/uL 150-450 [facility] Potassium measurement (mass/ volume)Ordered By: Frandyfeliciaingris Pinkamnatereza on 08-22-2024 Potassium (Unsp spec) [Mass/Vol] 3.8 mmol/L 3.3-5.1 [facility] RBC Auto (Bld) [#/Vol]Ordere d By: Frandyfeliciaingris Miramontes on 08-22-2024 RBC (Bld) [#/Vol] 4.01 10*6/uL Low 4.6-6.2 [facility] Serum creatinine measurement (mass/volume)Ordered By: David Miramontes on 08-22-2024 Creatinine [Mass/Vol] 0.96 mg/dL 0.70-1.20 [facility] Serum globulin measurementOr dered By: David Miramontes on 08-22-2024 Globulin (S) [Mass/Vol] 2.7 g/dL 2.2-4.2 [facility] Serum glucose measurement (m ass/volume)Ordered By: David Miramontes on 08-22-2024 Glucose [Mass/Vol] 82 mg/dL 70-99 [facility] Serum or plasma alanine grant otransferase (ALT) measurementOrdered By: David Miramontes on 08-22-2024 ALT [Catalytic activity/Vol] 13 U/L <47 [facility] Serum or plasma albumin siobhan urement (mass/volume)Ordered By: David Miramontes on 08-22-2024 Albumin [Mass/Vol] 3.5 g/dL 3.4-4.8 [facility] Serum or plasma albumin/glob ulin mass ratioOrdered By: David Miramontes on 08-22-2024 Albumin/Globulin [Mass ratio] 1.3 {ratio} 0.9-2.4 [facility] Serum or plasma alkaline deven sphatase measurementOrdered By: David Miramontes 08-22-2024 ALP [Catalytic activity/Vol] 106 U/L 40-129 [facility] Serum or plasma calcium siobhan urement (mass/volume)Ordered By: David Miramontes on 08-22-2024 Calcium [Mass/Vol] 8.9 mg/dL 7.6-11.0 [facility] Serum or plasma urea nitroge n measurement (mass/volume)Ordered By: David Miramontes on 08-22-2024 Urea nitrogen [Mass/Vol] 13 mg/dL 4-19 [facility] Sodium levelOrdered By: Frandy Miramontes on 08-22-2024 Sodium [Moles/Vol] 142 mmol/L 133-145 [facility] Total proteinOrdered By: Lg rupinderingris Miramontes on 08-22-2024 Protein [Mass/Vol] 6.2 g/dL 5.9-8.4 [facility] White blood cell (WBC) count Ordered By: David Miramontes on 08-22-2024 WBC (Bld) [#/Vol] 7.3 10*3/uL 4.4-11.0 [facility] Anion gap in Serum or Plasma Ordered By: David Miramontes on 08-02-2024 Anion gap [Moles/Vol] 11 mmol/L 5-15 [facility] BUN/creatinine ratioOrdered By: David Miramontes on 08-02-2024 Urea nitrogen/Creatinine [Mass ratio] 12.3 mg/mg 10- [facility] Carbon dioxide, total [Moles /volume] in Central venous bloodOrdered By: David Miramontes on 08-02-2024 CO2 [Moles/Vol] 24.2 mmol/L 21.0-32.0 [facility] Chloride assayOrdered By: Mayra waynecarlene Miramontes on 08-02-2024 Chloride [Moles/Vol] 105 mmol/L 98-108 [facility] Glomerular filtration rate ( GFR) estimation/1.73 sq m using serum, plasma, or whole bOrdered By: David Miramontes on 08-02-2024 GFR/1.73 sq M.predicted among non-blacks MDRD (S/P/Bld) [Vol rate/Area] 73 mL/min/{1.73_m2} >60 [facility] Comment on above: mL/min/1.73m2 CKD-EP I Creatinine Equation (2020) Potassium measurement (mass/ volume)Ordered By: David Miramontes on 08-02-2024 Potassium (Unsp spec) [Mass/Vol] 3.7 mmol/L 3.3-5.1 [facility] Serum creatinine measurement (mass/volume)Ordered By: David Miramontes on 08-02-2024 Creatinine [Mass/Vol] 1.01 mg/dL 0.70-1.20 [facility] Serum glucose measurement (m ass/volume)Ordered By: David Oleamnatereza on 08-02-2024 Glucose [Mass/Vol] 140 mg/dL High 70-99 [facility] Serum or plasma calcium siobhan urement (mass/volume)Ordered By: danay Miramontes on 08-02-2024 Calcium [Mass/Vol] 9.1 mg/dL 7.6-11.0 [facility] Serum or plasma urea nitroge n measurement (mass/volume)Ordered By: Vickyingris Charlietereza on 08-02-2024 Urea nitrogen [Mass/Vol] 12 mg/dL 4-19 [facility] Sodium levelOrdered By: [facility] carleen Guerratereza on 08-02-2024 Sodium [Moles/Vol] 141 mmol/L 133-145 [facility] Absolute lymphocyte countOrd ered By: David Miramontes on 08-01-2024 Lymphocytes Auto (Unsp spec) [#/Vol] 1.39 10*3/uL 0.83-4.51 [facility] Absolute neutrophil countOrd ered By: danay Miramontes on 08-01-2024 Neutrophils (Bld) [#/Vol] 4.8 10*3/uL 2.0-7.7 [facility] Automated lymphocyte count a s percentage of total leukocytesOrdered By: Vickyingris Pinkamnatereza on 08-01-2024 Lymphocytes/100 WBC Auto (Unsp spec) 18.9 % Low 19-41 [facility] Basophil percentageOrdered B y: Vickyingris Pinkamnatereza on 08-01-2024 Basophils/100 WBC (Bld) 0.4 % 0-1 [facility] Eosinophil percentageOrdered By: danay Miramontes on 08-01-2024 Eosinophils/100 WBC (Bld) 2.6 % 0-5 [facility] Erythrocyte distribution wid th ratioOrdered By: David Guerratereza on 08-01-2024 Erythrocyte distribution width (RBC) [Ratio] 15.5 % High 11.6-14.6 [facility] Erythrocyte distribution wid th standard deviationOrdered By: danay Joesphamnatereza on 08-01-2024 Erythrocyte distribution width (RBC) [Ratio] 57.9 fl High 35.1-43.9 [facility] Hematocrit Auto (Bld) [Volum e fraction]Ordered By: David Miramontes on 08-01-2024 Hematocrit (Bld) [Volume fraction] 40.2 % 40-54 [facility] Hemoglobin measurementOrdere d By: David Miramontes on 08-01-2024 Hemoglobin (Bld) [Mass/Vol] 12.6 g/dL Low 13.0-16.5 [facility] Immature granulocytes/100 WB C Auto (Bld)Ordered By: David Miramontes on 08-01-2024 Immature granulocytes/100 WBC (Bld) 0.400 % 0.0-0.9 [facility] Comment on above: IG% - Immature Granu locytes (promyelocytes, myelocytes and metamyelocytes) > 1% indicates that a LEFT SHIFT is Present. MCV (mean corpuscular volume ) determinationOrdered By: David Miramontes on 08-01-2024 MCV (RBC) [Entitic vol] 100.8 fL High 80-94 [facility] Mean corpuscular hemoglobin (MCH) determinationOrdered By: waynewest palm beachingris Miramontes on 08-01-2024 MCH (RBC) [Entitic mass] 31.6 pg 27.0-32.0 [facility] Mean corpuscular hemoglobin concentration (MCHC) determinationOrdered By: David Miramontes on 08-01-2024 MCHC (RBC) [Mass/Vol] 31.3 g/dL Low 32-36 [facility] Mean platelet volume determi nationOrdered By: David Miramontes on 08-01-2024 Platelet mean volume (Bld) [Entitic vol] 11.8 fL 6.2-12.0 [facility] Monocyte percentageOrdered B y: David Miramontes on 08-01-2024 Monocytes/100 WBC (Bld) 12.5 % High 0-10 [facility] Neutrophil percentageOrdered By: David Miramontes on 08-01-2024 Neutrophils/100 WBC (Bld) 65.2 % 47-70 [facility] Nucleated red blood cell per centageOrdered By: danay Miramontes on 08-01-2024 Nucleated RBC/100 WBC (Bld) [Ratio] 0 % 0-5 [facility] Platelet countOrdered By: Mayra danay Miramontes on 08-01-2024 Platelets (Bld) [#/Vol] 182 10*3/uL 150-450 [facility] RBC Auto (Bld) [#/Vol]Ordere d By: David Miramontes on 08-01-2024 RBC (Bld) [#/Vol] 3.99 10*6/uL Low 4.6-6.2 [facility] White blood cell (WBC) count Ordered By: David Guerratereza on 08-01-2024 WBC (Bld) [#/Vol] 7.4 10*3/uL 4.4-11.0 [facility] Absolute lymphocyte countOrd ered By: David Guerratereza on 07-21-2024 Lymphocytes Auto (Unsp spec) [#/Vol] 1.21 10*3/uL 0.83-4.51 [facility] Absolute neutrophil countOrd ered By: David Guerratereza on 07-21-2024 Neutrophils (Bld) [#/Vol] 5.1 10*3/uL 2.0-7.7 [facility] Anion gap in Serum or Plasma Ordered By: Vickyingris Pinkamnatereza on 07-21-2024 Anion gap [Moles/Vol] 10 mmol/L 5-15 [facility] Automated lymphocyte count a s percentage of total leukocytesOrdered By: Frandyfeliciaingris Pinkamnatereza on 07-21-2024 Lymphocytes/100 WBC Auto (Unsp spec) 16.7 % Low 19-41 [facility] BUN/creatinine ratioOrdered By: David Joesphamnatereza on 07-21-2024 Urea nitrogen/Creatinine [Mass ratio] 16.2 mg/mg 10-20 [facility] Basophil percentageOrdered B y: Vickyingris Pinkamnatereza on 07-21-2024 Basophils/100 WBC (Bld) 0.4 % 0-1 [facility] Carbon dioxide, total [Moles /volume] in Central venous bloodOrdered By: Mayrawaynefeliciaingris Pinkamnatereza on 07-21-2024 CO2 [Moles/Vol] 25.5 mmol/L 21.0-32.0 [facility] Chloride assayOrdered By: Mayra Miramontes on 07-21-2024 Chloride [Moles/Vol] 106 mmol/L 98-108 [facility] Eosinophil percentageOrdered By: David Miramontes on 07-21-2024 Eosinophils/100 WBC (Bld) 1.4 % 0-5 [facility] Erythrocyte distribution wid th ratioOrdered By: David Miramontes on 07-21-2024 Erythrocyte distribution width (RBC) [Ratio] 15.4 % High 11.6-14.6 [facility] Erythrocyte distribution wid th standard deviationOrdered By: David Miramontes on 07-21-2024 Erythrocyte distribution width (RBC) [Ratio] 57.9 fl High 35.1-43.9 [facility] Glomerular filtration rate ( GFR) estimation/1.73 sq m using serum, plasma, or whole bOrdered By: David Miramontes on 07-21-2024 GFR/1.73 sq M.predicted among non-blacks MDRD (S/P/Bld) [Vol rate/Area] 67 mL/min/{1.73_m2} >60 [facility] Comment on above: mL/min/1.73m2 CKD-EP I Creatinine Equation (2020) Hematocrit Auto (Bld) [Volum e fraction]Ordered By: David Miramontes on 07-21-2024 Hematocrit (Bld) [Volume fraction] 39.0 % Low 40-54 [facility] Hemoglobin measurementOrdere d By: David Miramontes on 07-21-2024 Hemoglobin (Bld) [Mass/Vol] 12.4 g/dL Low 13.0-16.5 [facility] Immature granulocytes/100 WB C Auto (Bld)Ordered By: David Miramontes on 07-21-2024 Immature granulocytes/100 WBC (Bld) 0.400 % 0.0-0.9 [facility] Comment on above: IG% - Immature Granu locytes (promyelocytes, myelocytes and metamyelocytes) > 1% indicates that a LEFT SHIFT is Present. MCV (mean corpuscular volume ) determinationOrdered By: David Miramontes on 07-21-2024 MCV (RBC) [Entitic vol] 101.0 fL High 80-94 [facility] Mean corpuscular hemoglobin (MCH) determinationOrdered By: David Miramontes on 07-21-2024 MCH (RBC) [Entitic mass] 32.1 pg High 27.0-32.0 [facility] Mean corpuscular hemoglobin concentration (MCHC) determinationOrdered By: David Miramontes on 07-21-2024 MCHC (RBC) [Mass/Vol] 31.8 g/dL Low 32-36 [facility] Mean platelet volume determi nationOrdered By: David Miramonets on 07-21-2024 Platelet mean volume (Bld) [Entitic vol] 11.7 fL 6.2-12.0 [facility] Monocyte percentageOrdered B y: David Miramontes on 07-21-2024 Monocytes/100 WBC (Bld) 11.3 % High 0-10 [facility] Neutrophil percentageOrdered By: David Miramontes on 07-21-2024 Neutrophils/100 WBC (Bld) 69.8 % 47-70 [facility] Nucleated red blood cell per centageOrdered By: David Miramontes on 07-21-2024 Nucleated RBC/100 WBC (Bld) [Ratio] 0 % 0-5 [facility] Platelet countOrdered By: Mayra Miramontes on 07-21-2024 Platelets (Bld) [#/Vol] 172 10*3/uL 150-450 [facility] Potassium measurement (mass/ volume)Ordered By: David Miramontes on 07-21-2024 Potassium (Unsp spec) [Mass/Vol] 3.9 mmol/L 3.3-5.1 [facility] RBC Auto (Bld) [#/Vol]Ordere d By: David Miramontes on 07-21-2024 RBC (Bld) [#/Vol] 3.86 10*6/uL Low 4.6-6.2 [facility] Serum creatinine measurement (mass/volume)Ordered By: David Miramontes on 07-21-2024 Creatinine [Mass/Vol] 1.08 mg/dL 0.70-1.20 [facility] Serum glucose measurement (m ass/volume)Ordered By: David Miramontes on 07-21-2024 Glucose [Mass/Vol] 90 mg/dL 70-99 [facility] Serum or plasma calcium siobhan urement (mass/volume)Ordered By: David Miramontes on 07-21-2024 Calcium [Mass/Vol] 9.1 mg/dL 7.6-11.0 [facility] Serum or plasma urea nitroge n measurement (mass/volume)Ordered By: David Miramontes on 07-21-2024 Urea nitrogen [Mass/Vol] 18 mg/dL 4-19 [facility] Sodium levelOrdered By: Frandy carleen Kulwinder on 07-21-2024 Sodium [Moles/Vol] 141 mmol/L 133-145 [facility] TSH DL <= 0.005 mIU/L QnOrde red By: David Miramontes on 07-21-2024 TSH Qn 2.450 uIU/mL 0.300-4.200 [facility] White blood cell (WBC) count Ordered By: David Miramontes on 07-21-2024 WBC (Bld) [#/Vol] 7.3 10*3/uL 4.4-11.0 [facility] BLADDER SCANon 07-14-2024 PVR 59 Cc [facility] BLADDER SCANOrdered By: Dayo Perez on 07-14-2024 [facility] CNOVon 07-14-2024 CNOV Office Visit (AKURFKrystle) KEL DILLARD ([id number]) 1940 M Date Time Provider Department 07/14/24 9:00 AM DIANA ARANGO During your visit today, we recorded the following information about you: Diana Arango APRN.MACHINE OPERATOR HELPER 07/14/2024 9:11 AM Signed [facility] - [facility] 07/14/2024 8:51 [...] Date , Taking? , Authorizing Provider Nicolas Kaur MD Medication terazosin (HYTRIN) 5 mg capsule, Sig Take 1 capsule by mouth daily at bedtime., Start Date 03/31/21, End Date , Taking? , Authorizing Provider Nicolas Kaur MD Medication omeprazole (PRILOSEC) 20 mg capsule, Sig Take 1 capsule by mouth once daily., Start Date 03/31/21, End Date , Taking? , Authorizing Provider Nicolas Kaur MD Medication CPAP, Sig , Start Date , End Date , Taking? , Authorizing Provider Provider, [facility] Medication furosemide (LASIX) 40 mg tablet, Sig Take 1 tablet by mouth once daily., Start Date 05/26/19, End Date , Taking? , Authorizing Provider Nicolas Kaur MD Medication ELIQUIS 5 mg tab(s), Sig [...] Yes Vitals: Ht (P) 165.1 cm (5' 5) Wt (P) 87.1 kg (192 lb) BMI (P) 31.95 kg/m? Physical (more content not included)... Normal [facility] CYTOLOGY NON-GYNon 5 AP DISCLAIMER Normal [facility] Comment on above: Order Comment: Speci men Type: URINE SPECIMEN Ordering Facility: [facility] Address: [address] [place] [address] Result Comment: Hussain blanco Developed Test (LDT) Disclaimer: Performance characteristics of immunohistochemical, immunofluorescent, and chromogenic in-situ hybridization tests have been determined by the performing laboratory within [facility]'s Rell Jarrod [facility] Pathology and Laboratory Medicine Department ([facility], [facility], [facility], [facility], [facility], [facility], or [facility]) in a manner consistent with CLIA requirements. One or more of these tests may not have been cleared or approved by the FDA. [facility] is regulated under CLIA as qualified to perform high-complexity testing. These tests are used for clinical purposes. These should not be regarded as investigational or for research. Positive and negative controls stain appropriately. Performed By: #### C YTONON #### [facility] CLIA [id number] [address] [place] CASE REPORT Normal [facility] Comment on above: Order Comment: Speci men Type: URINE SPECIMEN Ordering Facility: [facility] Address: [address] [place] [address] Result Comment: [facility] Cytology Report Case: [id number] Authorizing Provider: Diana Arango: 07/14/2024 09:01 AM MATTHEW Andres Ordering Location: [facility] Received: 07/17/2024 03:50 AM Pathologist: Rosy Cavazos MD Specimen: Urine, Midstream Performed By: #### C YTONON #### [facility] CLIA [id number] [address] CLINICAL HISTORY gross hematuria Normal [facility] Comment on above: Order Comment: Speci men Type: URINE SPECIMEN Ordering Facility: [facility] Address: [address] [place] [address] Performed By: #### C YTONON #### [facility] CLIA [id number] [address] FINAL DIAGNOSIS Normal [facility] Comment on above: Order Comment: Speci men Type: URINE SPECIMEN Ordering Facility: [facility] Address: [address] [place] [address] Result Comment: A - Urine, Midstream Negative for high-grade urothelial carcinoma. Blood. at 1046 EDT Performed By: #### C YTONON #### [facility] CLIA [id number] [address] [place] [address] FINAL PERFORMING LAB Normal [facility] Comment on above: Order Comment: Speci men Type: URINE SPECIMEN Ordering Facility: [facility] Address: [address] [place] [address] Result Comment: Tech nical component, boiler installer screening performed at: [facility], [address] [place] [address] CLIA: [id number] Diagnostic interpretation performed at: [facility], [address] [place] [address] CLIA# [id number] [employer] Manager: Josiah Ochoa MD Performed By: #### C YTONON #### [facility] CLIA [id number] [address] GROSS DESCRIPTION Normal [facility] Comment on above: Order Comment: Speci men Type: URINE SPECIMEN Ordering Facility: [facility] Address: [facility] [place] [address] Result Comment: A. U rine, Midstream 7.5 cc cloudy yellow fluid. ThinPrep prepared. Performed By: #### C JAYDEN #### [facility] CLIA [id number] 1 [place] [address] [place] UA DIP, URINE (POC)on 2024 BILIRUBIN UA (POCT) Negative Negative [facility] CLARITY UA (POCT) Clear [facility] COLOR UA (POCT) Yellow [facility] GLUCOSE UA (POCT) Negative Negative mg/dL [facility] Hemoglobin Ql (U) Trace-intact Abnormal Negative [facility] Interpretation and review of laboratory results Abnormal [facility] KETONE UA (POCT) Negative Negative mg/dL [facility] LEUKOCYTES UA (POCT) Negative [facility] NITRITE UA (POCT) Negative Negative [facility] PH UA (POCT) 5.5 4.5 - 8.0 [facility] Protein Ql (U) 30 mg/dL Abnormal Negative [facility] SPECIFIC GRAVITY UA (POCT) 1.025 1.005 - 1.030 [facility] UROBILINOGEN UA (POCT) 0.2 Debbie l E.U./dL [facility] Location:[facility], [address] [place] [address], [address] [place] [address] POINT OF CARE [facility] Serum or plasma uric acid me asurement (mass/volume)Ordered By: David Miramontes on 06-23-2024 Urate [Mass/Vol] 4.2 mg/dL 3.5-7.2 [facility] Comment on above: The drugs N-Acetylcy steine and Metamizole may falsely depress this assay. Absolute lymphocyte countOrd ered By: David Miramontes on 06-05-2024 Lymphocytes Auto (Unsp spec) [#/Vol] 1.05 10*3/uL 0.83-4.51 [facility] Absolute neutrophil countOrd ered By: David Miramontes on 06-05-2024 Neutrophils (Bld) [#/Vol] 4.8 10*3/uL 2.0-7.7 [facility] Anion gap in Serum or Plasma Ordered By: David Miramontes on 06-05-2024 Anion gap [Moles/Vol] 11 mmol/L 5-15 [facility] Automated lymphocyte count a s percentage of total leukocytesOrdered By: David Miramontes on 06-05-2024 Lymphocytes/100 WBC Auto (Unsp spec) 15.8 % Low 19-41 [facility] BUN/creatinine ratioOrdered By: waynewest palm beachingris Miramontes on 06-05-2024 Urea nitrogen/Creatinine [Mass ratio] 9.3 mg/mg Low 10-20 [facility] Basophil percentageOrdered B y: David Miramontes on 06-05-2024 Basophils/100 WBC (Bld) 1.1 % High 0-1 [facility] Carbon dioxide, total [Moles /volume] in Central venous bloodOrdered By: David Miramontes on 06-05-2024 CO2 [Moles/Vol] 26.8 mmol/L 21.0-32.0 [facility] Chloride assayOrdered By: Mayra waynecarleen Miramontes on 06-05-2024 Chloride [Moles/Vol] 101 mmol/L 98-108 [facility] Eosinophil percentageOrdered By: David Miramontes on 06-05-2024 Eosinophils/100 WBC (Bld) 2.3 % 0-5 [facility] Erythrocyte distribution wid th (RBC) [Ratio]Ordered By: David Miramontes on 06-05-2024 Erythrocyte distribution width (RBC) [Entitic vol] 55.4 fL High 35.1-43.9 [facility] Erythrocyte distribution wid th ratioOrdered By: waynewest palm beachingris Miramontes on 06-05-2024 Erythrocyte distribution width (RBC) [Ratio] 15.0 % High 11.6-14.6 [facility] Erythrocyte distribution wid th standard deviationOrdered By: David Pinkamnatereza on 06-05-2024 Erythrocyte distribution width (RBC) [Ratio] 55.4 fl High 35.1-43.9 [facility] GFR/1.73 sq M.predicted eleazar g non-blacks MDRD (S/P/Bld) [Vol rate/Area]Ordered By: David Miramontes on 06-05-2024 Estimated GFR (MDRD) Non-Af Amer 48 Low >60 [facility] Comment on above: mL/min/1.73m2 CKD-EP I Creatinine Equation (2020) Glomerular filtration rate ( GFR) estimation/1.73 sq m using serum, plasma, or whole bOrdered By: David Miramontes on 06-05-2024 GFR/1.73 sq M.predicted among non-blacks MDRD (S/P/Bld) [Vol rate/Area] 48 mL/min/{1.73_m2} Low >60 [facility] Comment on above: mL/min/1.73m2 CKD-EP I Creatinine Equation (2020) Hematocrit Auto (Bld) [Volum e fraction]Ordered By: David Miramontes on 06-05-2024 Hematocrit (Bld) [Volume fraction] 41.8 % 40-54 [facility] Hemoglobin measurementOrdere d By: David Miramontes on 06-05-2024 Hemoglobin (Bld) [Mass/Vol] 13.3 g/dL 13.0-16.5 [facility] Immature granulocytes/100 WB C Auto (Bld)Ordered By: David Miramontes on 06-05-2024 Immature granulocytes/100 WBC (Bld) 0.300 % 0.0-0.9 [facility] Comment on above: IG% - Immature Granu locytes (promyelocytes, myelocytes and metamyelocytes) > 1% indicates that a LEFT SHIFT is Present. Lymphocytes Auto (Unsp spec) [#/Vol]Ordered By: David Miramontes on 06-05-2024 Lymphocytes (Bld) [#/Vol] 1.05 10*3/uL 0.83-4.51 [facility] Lymphocytes/100 WBC Auto (Un sp spec)Ordered By: David Miramontes on 06-05-2024 Lymphocytes/100 WBC (Bld) 15.8 % Low 19-41 [facility] MCV (mean corpuscular volume ) determinationOrdered By: David Miramontes on 06-05-2024 MCV (RBC) [Entitic vol] 100.5 fL High 80-94 [facility] Mean corpuscular hemoglobin (MCH) determinationOrdered By: David Miramontes on 06-05-2024 MCH (RBC) [Entitic mass] 32.0 pg 27.0-32.0 [facility] Mean corpuscular hemoglobin concentration (MCHC) determinationOrdered By: David Miramontes on 06-05-2024 MCHC (RBC) [Mass/Vol] 31.8 g/dL Low 32-36 [facility] Mean platelet volume determi nationOrdered By: David Miramontes on 06-05-2024 Platelet mean volume (Bld) [Entitic vol] 11.3 fL 6.2-12.0 [facility] Monocyte percentageOrdered B y: David Miramontes on 06-05-2024 Monocytes/100 WBC (Bld) 8.9 % 0-10 [facility] Neutrophil percentageOrdered By: David Miramontes on 06-05-2024 Neutrophils/100 WBC (Bld) 71.6 % High 47-70 [facility] Nucleated red blood cell per centageOrdered By: David Miramontes on 06-05-2024 Nucleated RBC/100 WBC (Bld) [Ratio] 0 % 0-5 [facility] Platelet countOrdered By: Mayra fawadingris Miramontes on 06-05-2024 Platelets (Bld) [#/Vol] 216 10*3/uL 150-450 [facility] Potassium (Unsp spec) [Mass/ Vol]Ordered By: David Miramontes on 06-05-2024 Potassium [Moles/Vol] 3.9 mmol/L 3.3-5.1 [facility] Potassium measurement (mass/ volume)Ordered By: David Miramontes on 06-05-2024 Potassium (Unsp spec) [Mass/Vol] 3.9 mmol/L 3.3-5.1 [facility] RBC Auto (Bld) [#/Vol]Ordere d By: David Miramontes on 06-05-2024 RBC (Bld) [#/Vol] 4.16 10*6/uL Low 4.6-6.2 [facility] Serum creatinine measurement (mass/volume)Ordered By: David Miramontes on 06-05-2024 Creatinine [Mass/Vol] 1.42 mg/dL High 0.70-1.20 [facility] Serum glucose measurement (m ass/volume)Ordered By: David Miramontes on 06-05-2024 Glucose [Mass/Vol] 85 mg/dL 70-99 [facility] Serum or plasma calcium siobhan urement (mass/volume)Ordered By: David Miramontes on 06-05-2024 Calcium [Mass/Vol] 9.0 mg/dL 7.6-11.0 [facility] Serum or plasma urea nitroge n measurement (mass/volume)Ordered By: David Miramontes on 06-05-2024 Urea nitrogen [Mass/Vol] 13 mg/dL 4-19 [facility] Sodium levelOrdered By: Frandy Miramontes on 06-05-2024 Sodium [Moles/Vol] 139 mmol/L 133-145 [facility] White blood cell (WBC) count Ordered By: David Miramontes on 06-05-2024 WBC (Bld) [#/Vol] 6.6 10*3/uL 4.4-11.0 [facility] Amorphous sediment detection in urine sediment by light microscopyOrdered By: David Miramontes on 05-30-2024 Amorphous sediment LM Ql (Urine sed) 1+ [facility] Ankle Brachial Indexon 05-30 Ankle Brachial Index [facility] [address] [place] [address] Ankle Brachial Index 05/30/24 0904 MR#: [id number] Acct: [id number] Name: KEL DILLARD Rep #: [id number] : 1940 84 From: Josiah Klein MD Attending Dr: Dr. David Miramontes MD Status: REG CLI Ordering Dr: David Miramontes MD Date: 05/30/24 Location: [facility] Sex: M C Admitted: Reason For Study [...] Performed By: Yasmine May RVT, RDCS 05/30/24 1543 Date Josiah Klein MD CC: Dr. David Miramontes MD Date Dictated: 05/30/24 0904 Date Transcribed: 05/30/24 1543 [employer] Vendor: Signed Normal [facility] Arterial study reportOrdered By: Josiah Klein on 05-30-2024 Noninvasive arteriosclerosis study report [facility] [address] [place] [address] Ankle Brachial Index 05/30/24 0904 MR#: [id number] Acct: [id number] Name: KEL DILLARD Rep #:[id number] : 1940 84 From: Josiah Naranjo Attending Dr: Dr. David Miramontes MD Status: REG CLI Ordering Dr: David Miramontes MD Date: 05/30/24 Location: [facility] Sex: M C Admitted: Reason For Study [...] the left ankle normal atrest. Ordering Physician: Kulwinder^David^^Dr Obrien^ Referring Physician: DAVID MIRAMONTSE MD Performed By: Yasmine May RVT, RDCS 05/30/24 1543 Date _ Josiah Klein MD CC: Dr. David Miramontes MD ~ Date Dictated: 05/30/2404 Date Transcribed: 05/30/241542 [employer] V[employer]: Signed [facility] Work Phone: Bilirubin Test strip Ql (U)O rdered By: David Miramontes on 05-30-2024 Bilirubin Ql (U) Negative Negative [facility] Epithelial cells.squamous LM Ql (Urine sed)Ordered By: David Miramontes on 05-30-2024 Epithelial cells.squamous LM.HPF (Urine sed) [#/Area] 0 /[HPF] 0-5 [facility] Glucose Ql (U)Ordered By: Mayra Miramontes on 05-30-2024 Urine Glucose (UA) Normal mg/dl Normal [facility] Ketones Test strip Ql (U)Ord ered By: David Miramontes on 05-30-2024 Ketones Ql (U) Negative Negative [facility] Microscopic analysis of urin e for red blood cells (RBC)Ordered By: David Miramontes on 05-30-2024 Microscopic analysis of urine for red blood cells (RBC) > 100 SEEN /hpf 0-5 [facility] Urine RBC > 100 SEEN /hpf 0-5 [facility] Mucus LM Ql (Urine sed)Order ed By: David Miramontes on 05-30-2024 Mucus Ql (Urine sed) 0 SEEN /hpf [facility] Nitrite Test strip Ql (U)Ord ered By: David Miramontes on 05-30-2024 Nitrite Ql (U) Positive High Negative [facility] PSA, total screeningOrdered By: David Miramontes on 05-30-2024 Prostate Specific Antigen Screen 3.08 ng/mL 0.02-4.00 [facility] Comment on above: This test was [...] Protein Ql (U) 500 mg/dl High Negative [facility] Squamous epithelial cells de tection in urine sediment by light microscopyOrdered By: David Miramontes on 05-30-2024 Epithelial cells.squamous LM Ql (Urine sed) 0-5 SEEN /hpf 0-5 [facility] Urine blood detectionOrdered By: David Miramontes on 05-30-2024 Urine Occult Blood 250 /ul High Negative [facility] Urine clarityOrdered By: Lg Miramontes on 05-30-2024 Clarity (U) Cloudy Clear [facility] Urine color determinationOrd ered By: David Miramontes on 05-30-2024 Color (U) Brown Yellow [facility] Urine cultureOrdered By: Lg Miramontes on 05-30-2024 Bacteria identified Cx Nom (U) Proteus mirabilis Abnormal [facility] Urine glucose detectionOrder ed By: David Miramontes on 05-30-2024 Glucose Ql (U) Normal mg/dl Normal [facility] Urine leukocyte esterase det ection by dipstickOrdered By: David Miramontes on 05-30-2024 Leukocyte esterase Test strip Ql (U) 500 /ul High Negative [facility] Urine pHOrdered By: Leo Miramontes on 05-30-2024 pH (U) 6.5 [pH] 5.0 - 8.0 [facility] Urine sediment bacteria coun t by microscopy (number/high power field)Ordered By: David Miramontes on 05-30-2024 Bacteria LM.HPF (Urine sed) [#/Area] 2 /[HPF] None Seen [facility] Urine specific gravity measu rementOrdered By: David Miramontes on 05-30-2024 Specific gravity (U) [Rel density] 1.015 1.002-1.030 [facility] Urine urobilinogen measureme ntOrdered By: David Miramontes on 05-30-2024 Urobilinogen Ql (U) 1 mg/dl High Normal [facility] Urobilinogen Ql (U)Ordered B y: David Miramontes on 05-30-2024 Urobilinogen (U) [Mass/Vol] 1 mg/dL High Normal [facility] White blood cell countOrdere d By: David Miramontes on 05-30-2024 Urine WBC 50-100 SEEN /hpf 0-5 [facility] White blood cell count 50-100 SEEN /hpf 0-5 [facility] Absolute lymphocyte countOrd ered By: David Miramontes on 05-22-2024 Lymphocytes Auto (Unsp spec) [#/Vol] 1.26 10*3/uL 0.83-4.51 [facility] Absolute neutrophil countOrd ered By: David Miramontes on 05-22-2024 Neutrophils (Bld) [#/Vol] 6.5 10*3/uL 2.0-7.7 [facility] Anion gap in Serum or Plasma Ordered By: David Miramontes on 05-22-2024 Anion gap [Moles/Vol] 13 mmol/L 5-15 [facility] Automated lymphocyte count a s percentage of total leukocytesOrdered By: David Miramontes on 05-22-2024 Lymphocytes/100 WBC Auto (Unsp spec) 14.0 % Low 19-41 [facility] BUN/creatinine ratioOrdered By: David Guerratereza on 05-22-2024 Urea nitrogen/Creatinine [Mass ratio] 7.8 mg/mg Low 10-20 [facility] Basophil percentageOrdered B y: David Miramontes on 05-22-2024 Basophils/100 WBC (Bld) 0.4 % 0-1 [facility] Bilirubin, totalOrdered By: David Joesphamnatereza on 05-22-2024 Bilirubin [Mass/Vol] 0.44 mg/dL 0.00-1.30 [facility] Carbon dioxide, total [Moles /volume] in Central venous bloodOrdered By: David Joesphamnatereza on 05-22-2024 CO2 [Moles/Vol] 24.8 mmol/L 21.0-32.0 [facility] Chloride assayOrdered By: Mayra danay Joesphamnatereza on 05-22-2024 Chloride [Moles/Vol] 104 mmol/L 98-108 [facility] Eosinophil percentageOrdered By: David Miramontes on 05-22-2024 Eosinophils/100 WBC (Bld) 1.0 % 0-5 [facility] Erythrocyte distribution wid th (RBC) [Ratio]Ordered By: Mayrawaynecarleen Joesphamnatereza on 05-22-2024 Erythrocyte distribution width (RBC) [Entitic vol] 54.3 fL High 35.1-43.9 [facility] Erythrocyte distribution wid th ratioOrdered By: David Guerratereza on 05-22-2024 Erythrocyte distribution width (RBC) [Ratio] 15.1 % High 11.6-14.6 [facility] Erythrocyte distribution wid th standard deviationOrdered By: David Miramontes on 05-22-2024 Erythrocyte distribution width (RBC) [Ratio] 54.3 fl High 35.1-43.9 [facility] GFR/1.73 sq M.predicted eleazar g non-blacks MDRD (S/P/Bld) [Vol rate/Area]Ordered By: Mayradanay Pinkamnatereza on 05-22-2024 Estimated GFR (MDRD) Non-Af Amer 33 Low >60 [facility] Comment on above: mL/min/1.73m2 CKD-EP I Creatinine Equation (2020) Glomerular filtration rate ( GFR) estimation/1.73 sq m using serum, plasma, or whole bOrdered By: David Miramontes on 05-22-2024 GFR/1.73 sq M.predicted among non-blacks MDRD (S/P/Bld) [Vol rate/Area] 33 mL/min/{1.73_m2} Low >60 [facility] Comment on above: mL/min/1.73m2 CKD-EP I Creatinine Equation (2020) Hematocrit Auto (Bld) [Volum e fraction]Ordered By: David Miramontes on 05-22-2024 Hematocrit (Bld) [Volume fraction] 40.5 % 40-54 [facility] Hemoglobin measurementOrdere d By: David Miramontes on 05-22-2024 Hemoglobin (Bld) [Mass/Vol] 12.9 g/dL Low 13.0-16.5 [facility] Immature granulocytes/100 WB C Auto (Bld)Ordered By: David Miramontes on 05-22-2024 Immature granulocytes/100 WBC (Bld) 0.300 % 0.0-0.9 [facility] Comment on above: IG% - Immature Granu locytes (promyelocytes, myelocytes and metamyelocytes) > 1% indicates that a LEFT SHIFT is Present. Laboratory - Chemistry and C hemistry - challengeOrdered By: David Miramontes on 05-22-2024 AST [Catalytic activity/Vol] 33 U/L <38 [facility] Lymphocytes Auto (Unsp spec) [#/Vol]Ordered By: David Miramontes on 05-22-2024 Lymphocytes (Bld) [#/Vol] 1.26 10*3/uL 0.83-4.51 [facility] Lymphocytes/100 WBC Auto (Un sp spec)Ordered By: David Miramontes on 05-22-2024 Lymphocytes/100 WBC (Bld) 14.0 % Low 19-41 [facility] MCV (mean corpuscular volume ) determinationOrdered By: David Miramontes on 05-22-2024 MCV (RBC) [Entitic vol] 99.3 fL High 80-94 [facility] Mean corpuscular hemoglobin (MCH) determinationOrdered By: David Miramontes on 05-22-2024 MCH (RBC) [Entitic mass] 31.6 pg 27.0-32.0 [facility] Mean corpuscular hemoglobin concentration (MCHC) determinationOrdered By: David Miramontes on 05-22-2024 MCHC (RBC) [Mass/Vol] 31.9 g/dL Low 32-36 [facility] Mean platelet volume determi nationOrdered By: David Miramontes on 05-22-2024 Platelet mean volume (Bld) [Entitic vol] 12.1 fL High 6.2-12.0 [facility] Monocyte percentageOrdered B y: David Miramontes on 05-22-2024 Monocytes/100 WBC (Bld) 11.8 % High 0-10 [facility] Neutrophil percentageOrdered By: David Miramontes on 05-22-2024 Neutrophils/100 WBC (Bld) 72.5 % High 47-70 [facility] Nucleated red blood cell per centageOrdered By: David Miramontes on 05-22-2024 Nucleated RBC/100 WBC (Bld) [Ratio] 0 % 0-5 [facility] Platelet countOrdered By: Mayra waynecarleen Miramontes on 05-22-2024 Platelets (Bld) [#/Vol] 179 10*3/uL 150-450 [facility] Potassium (Unsp spec) [Mass/ Vol]Ordered By: David Miramontes on 05-22-2024 Potassium [Moles/Vol] 3.3 mmol/L 3.3-5.1 [facility] Potassium measurement (mass/ volume)Ordered By: David Miramontes on 05-22-2024 Potassium (Unsp spec) [Mass/Vol] 3.3 mmol/L 3.3-5.1 [facility] RBC Auto (Bld) [#/Vol]Ordere d By: David Miramontes on 05-22-2024 RBC (Bld) [#/Vol] 4.08 10*6/uL Low 4.6-6.2 [facility] Serum creatinine measurement (mass/volume)Ordered By: David Miramontes on 05-22-2024 Creatinine [Mass/Vol] 1.94 mg/dL High 0.70-1.20 [facility] Serum globulin measurementOr dered By: David Miramontes on 05-22-2024 Globulin (S) [Mass/Vol] 3.2 g/dL 2.2-4.2 [facility] Serum glucose measurement (m ass/volume)Ordered By: David Miramontes on 05-22-2024 Glucose [Mass/Vol] 112 mg/dL High 70-99 [facility] Serum or plasma alanine grant otransferase (ALT) measurementOrdered By: David Miramontes on 05-22-2024 ALT [Catalytic activity/Vol] 8 U/L <47 [facility] Serum or plasma albumin siobhan urement (mass/volume)Ordered By: David Miramontes on 05-22-2024 Albumin [Mass/Vol] 3.5 g/dL 3.4-4.8 [facility] Serum or plasma albumin/glob ulin mass ratioOrdered By: David Miramontes on 05-22-2024 Albumin/Globulin [Mass ratio] 1.1 {ratio} 0.9-2.4 [facility] Serum or plasma alkaline deven sphatase measurementOrdered By: David Miramontes on 05-22-2024 ALP [Catalytic activity/Vol] 71 U/L 40-129 [facility] Serum or plasma calcium siobhan urement (mass/volume)Ordered By: David Miramontes on 05-22-2024 Calcium [Mass/Vol] 8.8 mg/dL 7.6-11.0 [facility] Serum or plasma urea nitroge n measurement (mass/volume)Ordered By: David Miramontes on 05-22-2024 Urea nitrogen [Mass/Vol] 15 mg/dL 4-19 [facility] Sodium levelOrdered By: Frandy Miramontes on 05-22-2024 Sodium [Moles/Vol] 141 mmol/L 133-145 [facility] Total proteinOrdered By: Lg Miramontes on 05-22-2024 Protein [Mass/Vol] 6.7 g/dL 5.9-8.4 [facility] White blood cell (WBC) count Ordered By: David Miramontes on 05-22-2024 WBC (Bld) [#/Vol] 9.0 10*3/uL 4.4-11.0 [facility] Bilirubin Test strip Ql (U)O rdered By: David Miramontes on 04-17-2024 Bilirubin Ql (U) 1 mg/dL High Negative [facility] Comment on above: COLOR OF URINE MAY A FFECT DIPSTICK RESULTS. Glucose Ql (U)Ordered By: Mayra Miramontes on 04-17-2024 Urine Glucose (UA) Normal mg/dl Normal [facility] Ketones Test strip Ql (U)Ord ered By: David Miramontes on 04-17-2024 Ketones Ql (U) 5 mg/dl High Negative [facility] Nitrite Test strip Ql (U)Ord ered By: David Miramontes on 04-17-2024 Nitrite Ql (U) Negative Negative [facility] Protein Test strip Ql (U)Ord ered By: David Miramontes on 04-17-2024 Protein Ql (U) 100 mg/dl High Negative [facility] Urine blood detectionOrdered By: David Miramontes on 04-17-2024 Urine Occult Blood 250 /ul High Negative [facility] Urine clarityOrdered By: Lg Miramontes on 04-17-2024 Clarity (U) Turbid Clear [facility] Urine color determinationOrd ered By: David Miramontes on 04-17-2024 Color (U) Kristina Yellow [facility] Urine cultureOrdered By: Lg Miramontes on 04-17-2024 Bacteria identified Cx Nom (U) Proteus mirabilis Abnormal [facility] Urine glucose detectionOrder ed By: David Miramontes on 04-17-2024 Glucose Ql (U) Normal mg/dl Normal [facility] Urine leukocyte esterase det ection by dipstickOrdered By: David Miramontes on 04-17-2024 Leukocyte esterase Test strip Ql (U) 100 /ul High Negative [facility] Urine pHOrdered By: Leo Miramontes on 04-17-2024 pH (U) 5.0 [pH] 5.0 - 8.0 [facility] Urine specific gravity measu rementOrdered By: David Miramontes on 04-17-2024 Specific gravity (U) [Rel density] 1.025 1.002-1.030 [facility] Urine urobilinogen measureme ntOrdered By: David Miramontes on 04-17-2024 Urobilinogen Ql (U) Normal mg/dl Normal [facility] Urobilinogen Ql (U)Ordered B y: David Miramontes on 04-17-2024 Urine Urobilinogen Normal mg/dl Normal [facility] Absolute lymphocyte countOrd ered By: David Miramontes on 04-13-2024 Lymphocytes Auto (Unsp spec) [#/Vol] 0.98 10*3/uL 0.83-4.51 [facility] Absolute neutrophil countOrd ered By: David Miramontes on 04-13-2024 Neutrophils (Bld) [#/Vol] 7.0 10*3/uL 2.0-7.7 [facility] Automated lymphocyte count a s percentage of total leukocytesOrdered By: David Miramontes on 04-13-2024 Lymphocytes/100 WBC Auto (Unsp spec) 11.0 % Low 19-41 [facility] Basophil percentageOrdered B y: David Miramontes on 04-13-2024 Basophils/100 WBC (Bld) 0.2 % 0-1 [facility] Eosinophil percentageOrdered By: David Guerrae on 04-13-2024 Eosinophils/100 WBC (Bld) 1.2 % 0-5 [facility] Erythrocyte distribution wid th (RBC) [Ratio]Ordered By: David Guerrae on 04-13-2024 Erythrocyte distribution width (RBC) [Entitic vol] 52.6 fL High 35.1-43.9 [facility] Erythrocyte distribution wid th ratioOrdered By: David Guerrae on 04-13-2024 Erythrocyte distribution width (RBC) [Ratio] 14.6 % 11.6-14.6 [facility] Erythrocyte distribution wid th standard deviationOrdered By: David Miramontes on 04-13-2024 Erythrocyte distribution width (RBC) [Ratio] 52.6 fl High 35.1-43.9 [facility] Hematocrit Auto (Bld) [Volum e fraction]Ordered By: David Miramontes on 04-13-2024 Hematocrit (Bld) [Volume fraction] 47.5 % 40-54 [facility] Hemoglobin measurementOrdere d By: Frandywest palm beachingris Miramontes on 04-13-2024 Hemoglobin (Bld) [Mass/Vol] 15.1 g/dL 13.0-16.5 [facility] Immature granulocytes/100 WB C Auto (Bld)Ordered By: [facility] on 04-13-2024 Immature granulocytes/100 WBC (Bld) 0.300 % 0.0-0.9 [facility] Comment on above: IG% - Immature Granu locytes (promyelocytes, myelocytes and metamyelocytes) > 1% indicates that a LEFT SHIFT is Present. Lymphocytes Auto (Unsp spec) [#/Vol]Ordered By: [facility] on 04-13-2024 Lymphocytes (Bld) [#/Vol] 0.98 10*3/uL 0.83-4.51 [facility] Lymphocytes/100 WBC Auto (Un sp spec)Ordered By: waynewest palm beachingris Miramontes on 04-13-2024 Lymphocytes/100 WBC (Bld) 11.0 % Low 19-41 [facility] MCV (mean corpuscular volume ) determinationOrdered By: David Miramontes on 04-13-2024 MCV (RBC) [Entitic vol] 98.3 fL High 80-94 [facility] Mean corpuscular hemoglobin (MCH) determinationOrdered By: [facility] on 04-13-2024 MCH (RBC) [Entitic mass] 31.3 pg 27.0-32.0 [facility] Mean corpuscular hemoglobin concentration (MCHC) determinationOrdered By: waynewest palm beachingris Miramontes on 04-13-2024 MCHC (RBC) [Mass/Vol] 31.8 g/dL Low 32-36 [facility] Mean platelet volume determi nationOrdered By: David Miramontes on 04-13-2024 Platelet mean volume (Bld) [Entitic vol] 12.2 fL High 6.2-12.0 [facility] Monocyte percentageOrdered B y: Vickyingris Pinkamnatereza on 04-13-2024 Monocytes/100 WBC (Bld) 9.3 % 0-10 [facility] Neutrophil percentageOrdered By: Mayradanay Pinkamnatereza on 04-13-2024 Neutrophils/100 WBC (Bld) 78.0 % High 47-70 [facility] Nucleated red blood cell per centageOrdered By: danay Miramontes on 04-13-2024 Nucleated RBC/100 WBC (Bld) [Ratio] 0 % 0-5 [facility] Platelet countOrdered By: Mayra fawadingris Miramontes on 04-13-2024 Platelets (Bld) [#/Vol] 160 10*3/uL 150-450 [facility] RBC Auto (Bld) [#/Vol]Ordere d By: Frandyfeliciaingris Miramontes on 04-13-2024 RBC (Bld) [#/Vol] 4.83 10*6/uL 4.6-6.2 [facility] Serum or plasma uric acid me asurement (mass/volume)Ordered By: David Miramontes on 04-13-2024 Urate [Mass/Vol] 7.3 mg/dL High 3.5-7.2 [facility] Comment on above: The drugs N-Acetylcy steine and Metamizole may falsely depress this assay. White blood cell (WBC) count Ordered By: David Miramontes on 04-13-2024 WBC (Bld) [#/Vol] 8.9 10*3/uL 4.4-11.0 [facility] Bilirubin Test strip Ql (U)O rdered By: David Miramontes on 04-07-2024 Bilirubin Ql (U) Negative Negative [facility] Blood urea nitrogen (BUN)/cr eatinine ratioOrdered By: David Miramontes on 04-07-2024 Urea nitrogen/Creatinine [Mass ratio] 15.7 mg/mg 10-20 [facility] Carbon dioxide measurementOr dered By: David Miramontes on 04-07-2024 CO2 [Moles/Vol] 27.0 mmol/L 21.0-32.0 [facility] Chloride measurementOrdered By: David Miramontes on 04-07-2024 Chloride [Moles/Vol] 107 mmol/L 98-107 [facility] Estimated glomerular filtrat ion rate (GFR) AmericanOrdered By: David Miramontes on 04-07-2024 Estimated GFR (MDRD) Amer 69 mL/min >60 [facility] Comment on above: GFR Calc Glomerular filtration rate ( GFR) estimationOrdered By: David Miramontes on 04-07-2024 Estimated GFR (MDRD) Non-Af Amer 57 mL/min Low >60 [facility] Comment on above: Non- GFR Calc GFR/1.73 sq M.predicted among non-blacks MDRD (S/P/Bld) [Vol rate/Area] 57 mL/min/{1.73_m2} Low >60 [facility] Comment on above: Non- GFR Calc Glucose Ql (U)Ordered By: Mayra Miramontes on 04-07-2024 Urine Glucose (UA) Normal mg/dl Normal [facility] Glucose measurementOrdered B y: David Miramontes on 04-07-2024 Glucose [Mass/Vol] 80 mg/dL 74-106 [facility] Ketones Test strip Ql (U)Ord ered By: David Miramontes on 04-07-2024 Ketones Ql (U) Negative Negative [facility] Nitrite Test strip Ql (U)Ord ered By: David Miramontes on 04-07-2024 Nitrite Ql (U) Negative Negative [facility] Potassium measurementOrdered By: David Miramontes on 04-07-2024 Potassium [Moles/Vol] 3.8 mmol/L 3.5-5.1 [facility] Comment on above: Slight Hemolysis, Re sult may be falsely increased. Protein Test strip Ql (U)Ord ered By: David Miramontes on 04-07-2024 Protein Ql (U) 30 mg/dl High Negative [facility] Serum anion gap measurementO rdered By: David Miramontes on 04-07-2024 Anion gap [Moles/Vol] 9 mmol/L 5-15 [facility] Serum or plasma calcium siobhan urement (mass/volume)Ordered By: David Miramontes on 04-07-2024 Calcium [Mass/Vol] 8.9 mg/dL 8.5-10.1 [facility] Serum or plasma creatinine m easurement (mass/volume)Ordered By: David Miramontes on 04-07-2024 Creatinine [Mass/Vol] 1.27 mg/dL 0.70-1.30 [facility] Comment on above: The validity of the calculated GFR & GFRAA in patients over 70 years has not been determined. Clinical correlation is essential. Serum or plasma urea nitroge n measurement (mass/volume)Ordered By: David Miramontes on 04-07-2024 Urea nitrogen [Mass/Vol] 20 mg/dL High 7-18 [facility] Serum or plasma uric acid me asurement (mass/volume)Ordered By: David Miramontes on 04-07-2024 Urate [Mass/Vol] 7.7 mg/dL High 3.5-7.2 [facility] Comment on above: The drugs N-Acetylcy steine and Metamizole may falsely depress this assay. Sodium levelOrdered By: Frandy Miramontes on 04-07-2024 Sodium [Moles/Vol] 143 mmol/L 136-145 [facility] Urine blood detectionOrdered By: David Miramontes on 04-07-2024 Urine Occult Blood 250 /ul High Negative [facility] Urine clarityOrdered By: Lg Miramontes on 04-07-2024 Clarity (U) Clear Clear [facility] Urine color determinationOrd ered By: David Miramontes on 04-07-2024 Color (U) Straw Yellow [facility] Urine cultureOrdered By: Lg Miramontes on 04-07-2024 Bacteria identified Cx Nom (U) Negative Abnormal [facility] Urine glucose detectionOrder ed By: David Miramontes on 04-07-2024 Glucose Ql (U) Normal mg/dl Normal [facility] Urine leukocyte esterase det ection by dipstickOrdered By: David Miramontes on 04-07-2024 Leukocyte esterase Test strip Ql (U) 25 /ul High Negative [facility] Urine pHOrdered By: Leo Miramontes on 04-07-2024 pH (U) 6.5 [pH] 5.0 - 8.0 [facility] Urine specific gravity measu rementOrdered By: David Miramontes on 04-07-2024 Specific gravity (U) [Rel density] 1.005 1.002-1.030 [facility] Urine urobilinogen measureme ntOrdered By: David Miramontes on 04-07-2024 Urobilinogen Ql (U) Normal mg/dl Normal [facility] Urobilinogen Ql (U)Ordered B y: David Miramontes on 04-07-2024 Urine Urobilinogen Normal mg/dl Normal [facility] Absolute lymphocyte countOrd ered By: David Miramontes on 04-04-2024 Lymphocytes Auto (Unsp spec) [#/Vol] 0.82 10*3/uL Low 0.83-4.51 [facility] Absolute neutrophil countOrd ered By: David Miramontes on 04-04-2024 Neutrophils (Bld) [#/Vol] 11.6 10*3/uL High 2.0-7.7 [facility] Automated lymphocyte count a s percentage of total leukocytesOrdered By: David Miramontes on 04-04-2024 Lymphocytes/100 WBC Auto (Unsp spec) 5.9 % Low 19-41 [facility] Basophil percentageOrdered B y: David Miramontes on 04-04-2024 Basophils/100 WBC (Bld) 0.2 % 0-1 [facility] Blood urea nitrogen (BUN)/cr eatinine ratioOrdered By: David Miramontes on 04-04-2024 Urea nitrogen/Creatinine [Mass ratio] 9.6 mg/mg Low 10-20 [facility] Carbon dioxide measurementOr dered By: David Miramontes on 04-04-2024 CO2 [Moles/Vol] 26.0 mmol/L 21.0-32.0 [facility] Chloride measurementOrdered By: David Miramontes on 04-04-2024 Chloride [Moles/Vol] 105 mmol/L 98-107 [facility] Eosinophil percentageOrdered By: David Miramontes on 04-04-2024 Eosinophils/100 WBC (Bld) 0.0 % 0-5 [facility] Erythrocyte distribution wid th (RBC) [Ratio]Ordered By: David Miramontes on 04-04-2024 Erythrocyte distribution width (RBC) [Entitic vol] 55.2 fL High 35.1-43.9 [facility] Erythrocyte distribution wid th ratioOrdered By: David Miramontes on 04-04-2024 Erythrocyte distribution width (RBC) [Ratio] 15.2 % High 11.6-14.6 [facility] Erythrocyte distribution wid th standard deviationOrdered By: David Miramontes on 04-04-2024 Erythrocyte distribution width (RBC) [Ratio] 55.2 fl High 35.1-43.9 [facility] Estimated glomerular filtrat ion rate (GFR) AmericanOrdered By: David Miramontes on 04-04-2024 Estimated GFR (MDRD) Amer 47 mL/min Low >60 [facility] Comment on above: GFR Calc Glomerular filtration rate ( GFR) estimationOrdered By: David Miramontes on 04-04-2024 Estimated GFR (MDRD) Non-Af Amer 39 mL/min Low >60 [facility] Comment on above: Non- GFR Calc GFR/1.73 sq M.predicted among non-blacks MDRD (S/P/Bld) [Vol rate/Area] 39 mL/min/{1.73_m2} Low >60 [facility] Comment on above: Non- GFR Calc Glucose measurementOrdered B y: David Miramontes on 04-04-2024 Glucose [Mass/Vol] 119 mg/dL High 74-106 [facility] Comment on above: Fasting Glucose resu lt from 100 to 125 mg/dL suggests IMPAIRED HOMEOSTASIS per A.D.A. criteria. Hematocrit Auto (Bld) [Volum e fraction]Ordered By: David Miramontes on 04-04-2024 Hematocrit (Bld) [Volume fraction] 49.2 % 40-54 [facility] Hemoglobin measurementOrdere d By: David Miramontes on 04-04-2024 Hemoglobin (Bld) [Mass/Vol] 15.9 g/dL 13.0-16.5 [facility] Immature granulocytes/100 WB C Auto (Bld)Ordered By: David Miramontes on 04-04-2024 Immature granulocytes/100 WBC (Bld) 0.500 % 0.0-0.9 [facility] Comment on above: IG% - Immature Granu locytes (promyelocytes, myelocytes and metamyelocytes) > 1% indicates that a LEFT SHIFT is Present. Lymphocytes Auto (Unsp spec) [#/Vol]Ordered By: waynewest palm beachingris Miramontes on 04-04-2024 Lymphocytes (Bld) [#/Vol] 0.82 10*3/uL Low 0.83-4.51 [facility] Lymphocytes/100 WBC Auto (Un sp spec)Ordered By: danay Miramontes on 04-04-2024 Lymphocytes/100 WBC (Bld) 5.9 % Low 19-41 [facility] MCV (mean corpuscular volume ) determinationOrdered By: Daivd Miramontes on 04-04-2024 MCV (RBC) [Entitic vol] 98.4 fL High 80-94 [facility] Mean corpuscular hemoglobin (MCH) determinationOrdered By: David Miramontes on 04-04-2024 MCH (RBC) [Entitic mass] 31.8 pg 27.0-32.0 [facility] Mean corpuscular hemoglobin concentration (MCHC) determinationOrdered By: danay Miramontes on 04-04-2024 MCHC (RBC) [Mass/Vol] 32.3 g/dL 32-36 [facility] Mean platelet volume determi nationOrdered By: waynewest palm beachingris Miramontes on 04-04-2024 Platelet mean volume (Bld) [Entitic vol] 12.5 fL High 6.2-12.0 [facility] Monocyte percentageOrdered B y: Frandyfeliciaingris Pinkamnatereza on 04-04-2024 Monocytes/100 WBC (Bld) 9.9 % 0-10 [facility] Neutrophil percentageOrdered By: Mayrawaynefeliciaingris Pinkamnatereza on 04-04-2024 Neutrophils/100 WBC (Bld) 83.5 % High 47-70 [facility] Nucleated red blood cell per centageOrdered By: David Pinkamnatereza on 04-04-2024 Nucleated RBC/100 WBC (Bld) [Ratio] 0 % 0-5 [facility] Platelet countOrdered By: Mayra fawadingris Miramontes on 04-04-2024 Platelets (Bld) [#/Vol] 209 10*3/uL 150-450 [facility] Potassium measurementOrdered By: David Miramontes on 04-04-2024 Potassium [Moles/Vol] 4.2 mmol/L 3.5-5.1 [facility] Comment on above: Slight Hemolysis, Re sult may be falsely increased. RBC Auto (Bld) [#/Vol]Ordere d By: David Miramontes on 04-04-2024 RBC (Bld) [#/Vol] 5.00 10*6/uL 4.6-6.2 [facility] Serum anion gap measurementO rdered By: David Miramotnes on 04-04-2024 Anion gap [Moles/Vol] 8 mmol/L 5-15 [facility] Serum or plasma calcium siobhan urement (mass/volume)Ordered By: David Miramontes on 04-04-2024 Calcium [Mass/Vol] 9.6 mg/dL 8.5-10.1 [facility] Serum or plasma creatinine m easurement (mass/volume)Ordered By: David Miramontes on 04-04-2024 Creatinine [Mass/Vol] 1.77 mg/dL High 0.70-1.30 [facility] Comment on above: The validity of the calculated GFR & GFRAA in patients over 70 years has not been determined. Clinical correlation is essential. Serum or plasma urea nitroge n measurement (mass/volume)Ordered By: David Miramontes on 04-04-2024 Urea nitrogen [Mass/Vol] 17 mg/dL 7-18 [facility] Sodium levelOrdered By: Frandy Miramontes on 04-04-2024 Sodium [Moles/Vol] 139 mmol/L 136-145 [facility] White blood cell (WBC) count Ordered By: David Miramontes on 04-04-2024 WBC (Bld) [#/Vol] 13.9 10*3/uL High 4.4-11.0 [facility] Absolute lymphocyte countOrd ered By: David Miramontes on 04-06-2023 Lymphocytes Auto (Unsp spec) [#/Vol] 1.24 10*3/uL 0.83-4.51 [facility] Automated lymphocyte count a s percentage of total leukocytesOrdered By: David Joesphiman on 04-06-2023 Lymphocytes/100 WBC Auto (Unsp spec) 18.7 % 19-41 [facility] Basophil percentageOrdered B y: David Miramontes on 04-06-2023 Basophils/100 WBC (Bld) 0.5 % 0-1 [facility] Chloride [Moles/Vol] 109 mmol/L 98-107 [facility] Eosinophils/100 WBC (Bld) 1.7 % 0-5 [facility] Glucose [Mass/Vol] 90 mg/dL 74-106 [facility] Hemoglobin (Bld) [Mass/Vol] 15.4 g/dL 13.0-16.5 [facility] Monocytes/100 WBC (Bld) 9.4 % 0-10 [facility] Neutrophils (Bld) [#/Vol] 4.6 10*3/uL 2.0-7.7 [facility] Neutrophils/100 WBC (Bld) 69.2 % 47-70 [facility] Potassium [Moles/Vol] 3.7 mmol/L 3.5-5.1 [facility] Sodium [Moles/Vol] 141 mmol/L 136-145 [facility] WBC (Bld) [#/Vol] 6.6 10*3/uL 4.4-11.0 [facility] Determination of erythrocyte mean corpuscular volume (MCV)Ordered By: David Miramontes on 04-06-2023 MCV (RBC) [Entitic vol] 98.2 fL 80-94 [facility] Erythrocyte distribution wid th ratioOrdered By: [facility] on 04-06-2023 Erythrocyte distribution width (RBC) [Ratio] 14.4 % 11.6-14.6 [facility] Erythrocyte distribution wid th standard deviationOrdered By: [facility] Joesphtereza on 04-06-2023 Erythrocyte distribution width (RBC) [Entitic vol] 51.7 fL 35.1-43.9 [facility] Hematocrit Auto (Bld) [Volum e fraction]Ordered By: [facility] Joesphtereza on 04-06-2023 Hematocrit (Bld) [Volume fraction] 49.2 % 40-54 [facility] Immature granulocytes/100 WB C Auto (Bld)Ordered By: [facility] on 04-06-2023 Immature granulocytes/100 WBC (Bld) 0.500 % 0.0-0.9 [facility] Comment on above: IG% - Immature Granu locytes (promyelocytes, myelocytes and metamyelocytes) > 1% indicates that a LEFT SHIFT is Present. Laboratory - Chemistry and C hemistry - challengeOrdered By: waynewest palm beachingris Miramontes on 04-06-2023 CO2 [Moles/Vol] 27.0 mmol/L 21.0-32.0 [facility] Urea nitrogen/Creatinine [Mass ratio] 15.0 mg/mg 10-20 [facility] Laboratory - Hematology and Cell countsOrdered By: [facility] on 04-06-2023 MCH (RBC) [Entitic mass] 30.7 pg 27.0-32.0 [facility] MCHC (RBC) [Mass/Vol] 31.3 g/dL 32-36 [facility] Nucleated RBC/100 WBC (Bld) [Ratio] 0 % 0-5 [facility] Platelet mean volume (Bld) [Entitic vol] 11.5 fL 6.2-12.0 [facility] Platelets (Bld) [#/Vol] 189 10*3/uL 150-450 [facility] No Panel InformationOrdered By: [facility] on 04-06-2023 Estimated GFR (MDRD) Amer 85 mL/min >60 [facility] Comment on above: GFR Calc Estimated GFR (MDRD) Non-Af Amer 70 mL/min >60 [facility] Comment on above: Non- GFR Calc RBC Auto (Bld) [#/Vol]Ordere d By: David Miramontes on 04-06-2023 RBC (Bld) [#/Vol] 5.01 10*6/uL 4.6-6.2 [facility] Serum or plasma calcium siobhan urement (mass/volume)Ordered By: David Miramontes on 04-06-2023 Calcium [Mass/Vol] 9.1 mg/dL 8.5-10.1 [facility] Serum or plasma creatinine m easurement (mass/volume)Ordered By: David Miramontes on 04-06-2023 Creatinine [Mass/Vol] 1.07 mg/dL 0.70-1.30 [facility] Comment on above: The validity of the calculated GFR & GFRAA in patients over 70 years has not been determined. Clinical correlation is essential. Serum or plasma urea nitroge n measurement (mass/volume)Ordered By: David Miramontes on 04-06-2023 Urea nitrogen [Mass/Vol] 16 mg/dL 7-18 [facility] Thin prep Papanicolaou smear with manual screeningOrdered By: David Miramontes on 04-06-2023 Thin prep Papanicolaou smear with manual screening 5 5-15 [facility] Absolute lymphocyte countOrd ered By: David Miramontes on 12-30-2022 Lymphocytes Auto (Unsp spec) [#/Vol] 1.16 10*3/uL 0.83-4.51 [facility] Basophil percentageOrdered B y: David Miramontes on 12-30-2022 Basophils/100 WBC (Bld) 0.4 % 0-1 [facility] Chloride [Moles/Vol] 109 mmol/L 98-107 [facility] Eosinophils/100 WBC (Bld) 1.3 % 0-5 [facility] Glucose [Mass/Vol] 84 mg/dL 74-106 [facility] Neutrophils (Bld) [#/Vol] 5.4 10*3/uL 2.0-7.7 [facility] Neutrophils/100 WBC (Bld) 72.7 % 47-70 [facility] Potassium [Moles/Vol] 3.6 mmol/L 3.5-5.1 [facility] Sodium [Moles/Vol] 142 mmol/L 136-145 [facility] WBC (Bld) [#/Vol] 7.4 10*3/uL 4.4-11.0 [facility] Blood erythrocytes count (nu mber/volume)Ordered By: David Miramontes on 12-30-2022 RBC (Bld) [#/Vol] 4.15 10*6/uL 4.6-6.2 [facility] Blood hemoglobin measurement (mass/volume)Ordered By: David Miramontes on 12-30-2022 Hemoglobin (Bld) [Mass/Vol] 13.0 g/dL 13.0-16.5 [facility] Blood lymphocytes/100 leukoc ytesOrdered By: David Miramontes on 12-30-2022 Lymphocytes/100 WBC (Bld) 15.6 % 19-41 [facility] Blood monocytes/100 leukocyt esOrdered By: David Miramontes on 12-30-2022 Monocytes/100 WBC (Bld) 9.6 % 0-10 [facility] Blood platelet mean volumeOr dered By: David Miramontes on 12-30-2022 Platelet mean volume (Bld) [Entitic vol] 11.6 fL 6.2-12.0 [facility] Determination of erythrocyte mean corpuscular volume (MCV)Ordered By: David Miramontes on 12-30-2022 MCV (RBC) [Entitic vol] 99.5 fL 80-94 [facility] Hematocrit Auto (Bld) [Volum e fraction]Ordered By: David Miramontes on 12-30-2022 Hematocrit (Bld) [Volume fraction] 41.3 % 40-54 [facility] Laboratory - Chemistry and C hemistry - challengeOrdered By: David Miramontes on 12-30-2022 CO2 [Moles/Vol] 27.0 mmol/L 21.0-32.0 [facility] Urea nitrogen/Creatinine [Mass ratio] 11.6 mg/mg 10-20 [facility] - Hematology and Cell countsOrdered By: David Miramontes on 12-30-2022 Erythrocyte distribution width (RBC) [Entitic vol] 51.5 fL 35.1-43.9 [facility] Erythrocyte distribution width (RBC) [Ratio] 14.2 % 11.6-14.6 [facility] Immature granulocytes/100 WBC (Bld) 0.400 % 0.0-0.9 [facility] Comment on above: IG% - Immature Granu locytes (promyelocytes, myelocytes and metamyelocytes) > 1% indicates that a LEFT SHIFT is Present. MCH (RBC) [Entitic mass] 31.3 pg 27.0-32.0 [facility] Nucleated RBC/100 WBC (Bld) [Ratio] 0 % 0-5 [facility] MCHC Auto (RBC) [Mass/Vol]Or dered By: David Miramontes on 12-30-2022 MCHC (RBC) [Mass/Vol] 31.5 g/dL 32-36 [facility] No Panel InformationOrdered By: David Miramontes on 12-30-2022 Estimated GFR (MDRD) Amer 108 mL/min >60 [facility] Comment on above: GFR Calc Estimated GFR (MDRD) Non-Af Amer 90 mL/min >60 [facility] Comment on above: Non- GFR Calc Platelets bldOrdered By: Lg Miramontes on 12-30-2022 Platelets (Bld) [#/Vol] 165 10*3/uL 150-450 [facility] Serum or plasma calcium siobhan urement (mass/volume)Ordered By: David Miramontes on 12-30-2022 Calcium [Mass/Vol] 8.3 mg/dL 8.5-10.1 [facility] Serum or plasma creatinine m easurement (mass/volume)Ordered By: David Miramontes on 12-30-2022 Creatinine [Mass/Vol] 0.86 mg/dL 0.70-1.30 [facility] Comment on above: The validity of the calculated GFR & GFRAA in patients over 70 years has not been determined. Clinical correlation is essential. Serum or plasma urea nitroge n measurement (mass/volume)Ordered By: David Miramontes on 12-30-2022 Urea nitrogen [Mass/Vol] 10 mg/dL 7-18 [facility] Thin prep Papanicolaou smear with manual screeningOrdered By: David Miramontes on 12-30-2022 Thin prep Papanicolaou smear with manual screening 6 5-15 [facility] Absolute lymphocyte countOrd ered By: David Miramontes on 09-29-2022 Lymphocytes Auto (Unsp spec) [#/Vol] 1.19 10*3/uL 0.83-4.51 [facility] Basophil percentageOrdered B y: David Miramontes on 09-29-2022 Basophils/100 WBC (Bld) 0.2 % 0-1 [facility] Chloride [Moles/Vol] 109 mmol/L 98-107 [facility] Eosinophils/100 WBC (Bld) 0.1 % 0-5 [facility] Glucose [Mass/Vol] 100 mg/dL 74-106 [facility] Comment on above: Fasting Glucose resu lt from 100 to 125 mg/dL suggests IMPAIRED HOMEOSTASIS per A.D.A. criteria. Neutrophils (Bld) [#/Vol] 8.4 10*3/uL 2.0-7.7 [facility] Neutrophils/100 WBC (Bld) 80.3 % 47-70 [facility] Potassium [Moles/Vol] 4.0 mmol/L 3.5-5.1 [facility] Sodium [Moles/Vol] 141 mmol/L 136-145 [facility] WBC (Bld) [#/Vol] 10.4 10*3/uL 4.4-11.0 [facility] Blood erythrocytes count (nu mber/volume)Ordered By: David Miramontes on 09-29-2022 RBC (Bld) [#/Vol] 4.62 10*6/uL 4.6-6.2 [facility] Blood hemoglobin measurement (mass/volume)Ordered By: David Miramontes on 09-29-2022 Hemoglobin (Bld) [Mass/Vol] 14.6 g/dL 13.0-16.5 [facility] Blood lymphocytes/100 leukoc ytesOrdered By: David Miramontes on 09-29-2022 Lymphocytes/100 WBC (Bld) 11.5 % 19-41 [facility] Blood monocytes/100 leukocyt esOrdered By: David Miramontes on 09-29-2022 Monocytes/100 WBC (Bld) 7.3 % 0-10 [facility] Blood platelet mean volumeOr dered By: David Miramontes on 09-29-2022 Platelet mean volume (Bld) [Entitic vol] 11.5 fL 6.2-12.0 [facility] Determination of erythrocyte mean corpuscular volume (MCV)Ordered By: David Miramontes on 09-29-2022 MCV (RBC) [Entitic vol] 99.4 fL 80-94 [facility] Hematocrit Auto (Bld) [Volum e fraction]Ordered By: David Miramontes on 09-29-2022 Hematocrit (Bld) [Volume fraction] 45.9 % 40-54 [facility] Laboratory - Chemistry and C hemistry - challengeOrdered By: David Miramontes on 09-29-2022 CO2 [Moles/Vol] 28.0 mmol/L 21.0-32.0 [facility] Urea nitrogen/Creatinine [Mass ratio] 13.8 mg/mg 10-20 [facility] - Hematology and Cell countsOrdered By: David Miramontes on 09-29-2022 Erythrocyte distribution width (RBC) [Entitic vol] 51.7 fL 35.1-43.9 [facility] Erythrocyte distribution width (RBC) [Ratio] 14.2 % 11.6-14.6 [facility] Immature granulocytes/100 WBC (Bld) 0.600 % 0.0-0.9 [facility] Comment on above: IG% - Immature Granu locytes (promyelocytes, myelocytes and metamyelocytes) > 1% indicates that a LEFT SHIFT is Present. MCH (RBC) [Entitic mass] 31.6 pg 27.0-32.0 [facility] Nucleated RBC/100 WBC (Bld) [Ratio] 0 % 0-5 [facility] MCHC Auto (RBC) [Mass/Vol]Or dered By: David Miramontes on 09-29-2022 MCHC (RBC) [Mass/Vol] 31.8 g/dL 32-36 [facility] No Panel InformationOrdered By: David Miramontes on 09-29-2022 Estimated GFR (MDRD) Amer 98 mL/min >60 [facility] Comment on above: GFR Calc Estimated GFR (MDRD) Non-Af Amer 81 mL/min >60 [facility] Comment on above: Non- GFR Calc Platelets bldOrdered By: Lg Miramontes on 09-29-2022 Platelets (Bld) [#/Vol] 185 10*3/uL 150-450 [facility] Serum or plasma calcium siobhan urement (mass/volume)Ordered By: David Miramontes on 09-29-2022 Calcium [Mass/Vol] 8.9 mg/dL 8.5-10.1 [facility] Serum or plasma creatinine m easurement (mass/volume)Ordered By: David Miramontes on 09-29-2022 Creatinine [Mass/Vol] 0.94 mg/dL 0.70-1.30 [facility] Comment on above: The validity of the calculated GFR & GFRAA in patients over 70 years has not been determined. Clinical correlation is essential. Serum or plasma urea nitroge n measurement (mass/volume)Ordered By: David Miramontes on 09-29-2022 Urea nitrogen [Mass/Vol] 13 mg/dL 7-18 [facility] Thin prep Papanicolaou smear with manual screeningOrdered By: David Miramontes on 09-29-2022 Thin prep Papanicolaou smear with manual screening 4 5-15 [facility] Absolute lymphocyte countOrd ered By: David Miramontes on 06-29-2022 Lymphocytes Auto (Unsp spec) [#/Vol] 1.43 10*3/uL 0.83-4.51 [facility] Basophil percentageOrdered B y: David Miramontes on 06-29-2022 Basophils/100 WBC (Bld) 0.6 % 0-1 [facility] Chloride [Moles/Vol] 107 mmol/L 98-107 [facility] Eosinophils/100 WBC (Bld) 1.5 % 0-5 [facility] Glucose [Mass/Vol] 85 mg/dL 74-106 [facility] Neutrophils (Bld) [#/Vol] 4.4 10*3/uL 2.0-7.7 [facility] Neutrophils/100 WBC (Bld) 65.4 % 47-70 [facility] Potassium [Moles/Vol] 3.6 mmol/L 3.5-5.1 [facility] Sodium [Moles/Vol] 140 mmol/L 136-145 [facility] WBC (Bld) [#/Vol] 6.7 10*3/uL 4.4-11.0 [facility] Blood erythrocytes count (nu mber/volume)Ordered By: David Miramontes on 06-29-2022 RBC (Bld) [#/Vol] 4.55 10*6/uL 4.6-6.2 [facility] Blood hemoglobin measurement (mass/volume)Ordered By: David Miramontes on 06-29-2022 Hemoglobin (Bld) [Mass/Vol] 14.5 g/dL 13.0-16.5 [facility] Blood lymphocytes/100 leukoc ytesOrdered By: David Miramontes on 06-29-2022 Lymphocytes/100 WBC (Bld) 21.5 % 19-41 [facility] Blood monocytes/100 leukocyt esOrdered By: David Miramontes on 06-29-2022 Monocytes/100 WBC (Bld) 10.7 % 0-10 [facility] Blood platelet mean volumeOr dered By: David Miramontes on 06-29-2022 Platelet mean volume (Bld) [Entitic vol] 11.2 fL 6.2-12.0 [facility] Determination of erythrocyte mean corpuscular volume (MCV)Ordered By: David Miramontes on 06-29-2022 MCV (RBC) [Entitic vol] 98.9 fL 80-94 [facility] Hematocrit Auto (Bld) [Volum e fraction]Ordered By: David Miramontes on 06-29-2022 Hematocrit (Bld) [Volume fraction] 45.0 % 40-54 [facility] Laboratory - Chemistry and C hemistry - challengeOrdered By: David Miramontes on 06-29-2022 CO2 [Moles/Vol] 30.0 mmol/L 21.0-32.0 [facility] Urea nitrogen/Creatinine [Mass ratio] 13.6 mg/mg 10-20 [facility] - Hematology and Cell countsOrdered By: David Miramontes on 06-29-2022 Erythrocyte distribution width (RBC) [Entitic vol] 51.6 fL 35.1-43.9 [facility] Erythrocyte distribution width (RBC) [Ratio] 14.3 % 11.6-14.6 [facility] Immature granulocytes/100 WBC (Bld) 0.300 % 0.0-0.9 [facility] Comment on above: IG% - Immature Granu locytes (promyelocytes, myelocytes and metamyelocytes) > 1% indicates that a LEFT SHIFT is Present. MCH (RBC) [Entitic mass] 31.9 pg 27.0-32.0 [facility] Nucleated RBC/100 WBC (Bld) [Ratio] 0 % 0-5 [facility] MCHC Auto (RBC) [Mass/Vol]Or dered By: David Miramontes on 06-29-2022 MCHC (RBC) [Mass/Vol] 32.2 g/dL 32-36 [facility] No Panel InformationOrdered By: David Miramontes on 06-29-2022 Estimated GFR (MDRD) Amer 89 mL/min >60 [facility] Comment on above: GFR Calc Estimated GFR (MDRD) Non-Af Amer 73 mL/min >60 [facility] Comment on above: Non- GFR Calc Platelets bldOrdered By: Lg Miramontes on 06-29-2022 Platelets (Bld) [#/Vol] 161 10*3/uL 150-450 [facility] Serum or plasma calcium siobhan urement (mass/volume)Ordered By: David Miramontes on 06-29-2022 Calcium [Mass/Vol] 8.7 mg/dL 8.5-10.1 [facility] Serum or plasma creatinine m easurement (mass/volume)Ordered By: David Miramontes on 06-29-2022 Creatinine [Mass/Vol] 1.03 mg/dL 0.70-1.30 [facility] Comment on above: The validity of the calculated GFR & GFRAA in patients over 70 years has not been determined. Clinical correlation is essential. Serum or plasma urea nitroge n measurement (mass/volume)Ordered By: David Miramontes on 06-29-2022 Urea nitrogen [Mass/Vol] 14 mg/dL 7-18 [facility] Thin prep Papanicolaou smear with manual screeningOrdered By: [facility] on 06-29-2022 Thin prep Papanicolaou smear with manual screening 3 5-15 [facility] Absolute lymphocyte countOrd ered By: waynewest palm beachingris Pinktereza on 04-01-2022 Lymphocytes Auto (Unsp spec) [#/Vol] 1.25 10*3/uL 0.83-4.51 [facility] Basophil percentageOrdered B y: David Miramontes on 04-01-2022 Basophils/100 WBC (Bld) 0.4 % 0-1 [facility] Chloride [Moles/Vol] 108 mmol/L 98-107 [facility] Eosinophils/100 WBC (Bld) 1.5 % 0-5 [facility] Glucose [Mass/Vol] 106 mg/dL 74-106 [facility] Comment on above: Fasting Glucose resu lt from 100 to 125 mg/dL suggests IMPAIRED HOMEOSTASIS per A.D.A. criteria. Neutrophils (Bld) [#/Vol] 4.7 10*3/uL 2.0-7.7 [facility] Neutrophils/100 WBC (Bld) 69.1 % 47-70 [facility] Potassium [Moles/Vol] 3.6 mmol/L 3.5-5.1 [facility] Sodium [Moles/Vol] 143 mmol/L 136-145 [facility] WBC (Bld) [#/Vol] 6.8 10*3/uL 4.4-11.0 [facility] Blood erythrocytes count (nu mber/volume)Ordered By: David Miramontes on 04-01-2022 RBC (Bld) [#/Vol] 4.69 10*6/uL 4.6-6.2 [facility] Blood hemoglobin measurement (mass/volume)Ordered By: David Miramontes on 04-01-2022 Hemoglobin (Bld) [Mass/Vol] 14.8 g/dL 13.0-16.5 [facility] Blood lymphocytes/100 leukoc ytesOrdered By: David Miramontes on 04-01-2022 Lymphocytes/100 WBC (Bld) 18.5 % 19-41 [facility] Blood monocytes/100 leukocyt esOrdered By: David Miramontes on 04-01-2022 Monocytes/100 WBC (Bld) 10.2 % 0-10 [facility] Blood platelet mean volumeOr dered By: David Miramontes on 04-01-2022 Platelet mean volume (Bld) [Entitic vol] 11.5 fL 6.2-12.0 [facility] Determination of erythrocyte mean corpuscular volume (MCV)Ordered By: David Miramontes on 04-01-2022 MCV (RBC) [Entitic vol] 97.0 fL 80-94 [facility] Hematocrit Auto (Bld) [Volum e fraction]Ordered By: David Miramontes on 04-01-2022 Hematocrit (Bld) [Volume fraction] 45.5 % 40-54 [facility] - Chemistry and C hemistry - challengeOrdered By: David Miramontes on 04-01-2022 CO2 [Moles/Vol] 29.0 mmol/L 21.0-32.0 [facility] Urea nitrogen/Creatinine [Mass ratio] 13.0 mg/mg 10-20 [facility] - Hematology and Cell countsOrdered By: David Miramontes on 04-01-2022 Erythrocyte distribution width (RBC) [Entitic vol] 51.1 fL 35.1-43.9 [facility] Erythrocyte distribution width (RBC) [Ratio] 14.4 % 11.6-14.6 [facility] Immature granulocytes/100 WBC (Bld) 0.300 % 0.0-0.9 [facility] Comment on above: IG% - Immature Granu locytes (promyelocytes, myelocytes and metamyelocytes) > 1% indicates that a LEFT SHIFT is Present. MCH (RBC) [Entitic mass] 31.6 pg 27.0-32.0 [facility] Nucleated RBC/100 WBC (Bld) [Ratio] 0 % 0-5 [facility] MCHC Auto (RBC) [Mass/Vol]Or dered By: David Miramontes on 04-01-2022 MCHC (RBC) [Mass/Vol] 32.5 g/dL 32-36 [facility] No Panel InformationOrdered By: David Miramontes on 04-01-2022 Estimated GFR (MDRD) Amer 92 mL/min >60 [facility] Comment on above: GFR Calc Estimated GFR (MDRD) Non-Af Amer 76 mL/min >60 [facility] Comment on above: Non- GFR Calc Platelets bldOrdered By: Lg Miramontes on 04-01-2022 Platelets (Bld) [#/Vol] 167 10*3/uL 150-450 [facility] Serum or plasma calcium siobhan urement (mass/volume)Ordered By: David Miramontes on 04-01-2022 Calcium [Mass/Vol] 9.1 mg/dL 8.5-10.1 [facility] Serum or plasma creatinine m easurement (mass/volume)Ordered By: David Miramontes on 04-01-2022 Creatinine [Mass/Vol] 1.00 mg/dL 0.70-1.30 [facility] Comment on above: The validity of the calculated GFR & GFRAA in patients over 70 years has not been determined. Clinical correlation is essential. Serum or plasma urea nitroge n measurement (mass/volume)Ordered By: David Miramontes on 04-01-2022 Urea nitrogen [Mass/Vol] 13 mg/dL 7-18 [facility] Thin prep Papanicolaou smear with manual screeningOrdered By: David Miramontes on 04-01-2022 Thin prep Papanicolaou smear with manual screening 6 5-15 [facility] Absolute lymphocyte countOrd ered By: Jhonny Tomas on 01-07-2022 Lymphocytes Auto (Unsp spec) [#/Vol] 1.54 10*3/uL 0.83-4.51 [facility] Basophil percentageOrdered B y: Jhonny Tomas on 01-07-2022 Basophils/100 WBC (Bld) 0.3 % 0-1 [facility] Chloride [Moles/Vol] 104 mmol/L 98-107 [facility] Eosinophils/100 WBC (Bld) 1.9 % 0-5 [facility] Glucose [Mass/Vol] 89 mg/dL 74-106 [facility] Neutrophils (Bld) [#/Vol] 4.8 10*3/uL 2.0-7.7 [facility] Neutrophils/100 WBC (Bld) 66.5 % 47-70 [facility] Potassium [Moles/Vol] 4.1 mmol/L 3.5-5.1 [facility] Sodium [Moles/Vol] 141 mmol/L 136-145 [facility] WBC (Bld) [#/Vol] 7.2 10*3/uL 4.4-11.0 [facility] Blood erythrocytes count (nu mber/volume)Ordered By: Jhonny Tomas on 01-07-2022 RBC (Bld) [#/Vol] 4.80 10*6/uL 4.6-6.2 [facility] Blood hemoglobin measurement (mass/volume)Ordered By: Jhonny Tomas on 01-07-2022 Hemoglobin (Bld) [Mass/Vol] 15.2 g/dL 13.0-16.5 [facility] Blood lymphocytes/100 leukoc ytesOrdered By: Jhonny Tomas on 01-07-2022 Lymphocytes/100 WBC (Bld) 21.3 % 19-41 [facility] Blood monocytes/100 leukocyt esOrdered By: Jhonny Tomas on 01-07-2022 Monocytes/100 WBC (Bld) 9.7 % 0-10 [facility] Blood platelet mean volumeOr dered By: Jhonny Tomas on 01-07-2022 Platelet mean volume (Bld) [Entitic vol] 11.2 fL 6.2-12.0 [facility] Determination of erythrocyte mean corpuscular volume (MCV)Ordered By: Jhonny Tomas on 01-07-2022 MCV (RBC) [Entitic vol] 97.3 fL 80-94 [facility] Hematocrit Auto (Bld) [Volum e fraction]Ordered By: Jhonny Tomas on 01-07-2022 Hematocrit (Bld) [Volume fraction] 46.7 % 40-54 [facility] - Chemistry and C hemistry - challengeOrdered By: Jhonny Tomas on 01-07-2022 CO2 [Moles/Vol] 29.0 mmol/L 21.0-32.0 [facility] Urea nitrogen/Creatinine [Mass ratio] 11.4 mg/mg 10-20 [facility] - Hematology and Cell countsOrdered By: Jhonny Tomas on 01-07-2022 Erythrocyte distribution width (RBC) [Entitic vol] 52.0 fL 35.1-43.9 [facility] Erythrocyte distribution width (RBC) [Ratio] 14.5 % 11.6-14.6 [facility] Immature granulocytes/100 WBC (Bld) 0.300 % 0.0-0.9 [facility] Comment on above: IG% - Immature Granu locytes (promyelocytes, myelocytes and metamyelocytes) > 1% indicates that a LEFT SHIFT is Present. MCH (RBC) [Entitic mass] 31.7 pg 27.0-32.0 [facility] Nucleated RBC/100 WBC (Bld) [Ratio] 0 % 0-5 [facility] MCHC Auto (RBC) [Mass/Vol]Or dered By: Jhonny Tomas on 01-07-2022 MCHC (RBC) [Mass/Vol] 32.5 g/dL 32-36 [facility] No Panel InformationOrdered By: Jhonny Tomas on 01-07-2022 Estimated GFR (MDRD) Amer 79 mL/min >60 [facility] Comment on above: GFR Calc Estimated GFR (MDRD) Non-Af Amer 65 mL/min >60 [facility] Comment on above: Non- GFR Calc Platelets bldOrdered By: Joao Tomas on 01-07-2022 Platelets (Bld) [#/Vol] 192 10*3/uL 150-450 [facility] Serum or plasma calcium siobhan urement (mass/volume)Ordered By: Jhonny Tomas on 01-07-2022 Calcium [Mass/Vol] 8.8 mg/dL 8.5-10.1 [facility] Serum or plasma creatinine m easurement (mass/volume)Ordered By: Jhonny Tomas on 01-07-2022 Creatinine [Mass/Vol] 1.14 mg/dL 0.70-1.30 [facility] Comment on above: The validity of the calculated GFR & GFRAA in patients over 70 years has not been determined. Clinical correlation is essential. Serum or plasma urea nitroge n measurement (mass/volume)Ordered By: Jhonny Tomas on 01-07-2022 Urea nitrogen [Mass/Vol] 13 mg/dL 7-18 [facility] Thin prep Papanicolaou smear with manual screeningOrdered By: Jhonny Tomas on 01-07-2022 Thin prep Papanicolaou smear with manual screening 8 5-15 [facility] Absolute lymphocyte countOrd ered By: Jhonny Tomas on 12-24-2021 Lymphocytes Auto (Unsp spec) [#/Vol] 1.60 10*3/uL 0.83-4.51 [facility] Basophil percentageOrdered B y: Jhonny Tomas on 12-24-2021 Basophils/100 WBC (Bld) 0.4 % 0-1 [facility] Chloride [Moles/Vol] 109 mmol/L 98-107 [facility] Eosinophils/100 WBC (Bld) 1.5 % 0-5 [facility] Glucose [Mass/Vol] 93 mg/dL 74-106 [facility] Neutrophils (Bld) [#/Vol] 4.8 10*3/uL 2.0-7.7 [facility] Neutrophils/100 WBC (Bld) 66.8 % 47-70 [facility] Potassium [Moles/Vol] 4.0 mmol/L 3.5-5.1 [facility] Comment on above: Slight Hemolysis, Re sult may be falsely increased. Sodium [Moles/Vol] 140 mmol/L 136-145 [facility] WBC (Bld) [#/Vol] 7.2 10*3/uL 4.4-11.0 [facility] Blood erythrocytes count (nu mber/volume)Ordered By: Jhonny Tomas on 12-24-2021 RBC (Bld) [#/Vol] 4.49 10*6/uL 4.6-6.2 [facility] Blood hemoglobin measurement (mass/volume)Ordered By: Jhonny Tomas on 12-24-2021 Hemoglobin (Bld) [Mass/Vol] 14.5 g/dL 13.0-16.5 [facility] Blood lymphocytes/100 leukoc ytesOrdered By: Jhonny Tomas on 12-24-2021 Lymphocytes/100 WBC (Bld) 22.2 % 19-41 [facility] Blood monocytes/100 leukocyt esOrdered By: Jhonny Tomas on 12-24-2021 Monocytes/100 WBC (Bld) 9.0 % 0-10 [facility] Blood platelet mean volumeOr dered By: Jhonny Tomas on 12-24-2021 Platelet mean volume (Bld) [Entitic vol] 11.2 fL 6.2-12.0 [facility] Determination of erythrocyte mean corpuscular volume (MCV)Ordered By: Jhonny Tomas on 12-24-2021 MCV (RBC) [Entitic vol] 97.1 fL 80-94 [facility] Hematocrit Auto (Bld) [Volum e fraction]Ordered By: Jhonny Tomas on 12-24-2021 Hematocrit (Bld) [Volume fraction] 43.6 % 40-54 [facility] - Chemistry and C hemistry - challengeOrdered By: Jhonny Tomas on 12-24-2021 CO2 [Moles/Vol] 26.0 mmol/L 21.0-32.0 [facility] Urea nitrogen/Creatinine [Mass ratio] 14.7 mg/mg 10-20 [facility] - Hematology and Cell countsOrdered By: Jhonny Tomas on 12-24-2021 Erythrocyte distribution width (RBC) [Entitic vol] 51.8 fL 35.1-43.9 [facility] Erythrocyte distribution width (RBC) [Ratio] 14.4 % 11.6-14.6 [facility] Immature granulocytes/100 WBC (Bld) 0.100 % 0.0-0.9 [facility] Comment on above: IG% - Immature Granu locytes (promyelocytes, myelocytes and metamyelocytes) > 1% indicates that a LEFT SHIFT is Present. MCH (RBC) [Entitic mass] 32.3 pg 27.0-32.0 [facility] Nucleated RBC/100 WBC (Bld) [Ratio] 0 % 0-5 [facility] MCHC Auto (RBC) [Mass/Vol]Or dered By: Jhonny Tomas on 12-24-2021 MCHC (RBC) [Mass/Vol] 33.3 g/dL 32-36 [facility] No Panel InformationOrdered By: Jhonny Tomas on 12-24-2021 Estimated GFR (MDRD) Amer 90 mL/min >60 [facility] Comment on above: GFR Calc Estimated GFR (MDRD) Non-Af Amer 74 mL/min >60 [facility] Comment on above: Non- GFR Calc Platelets bldOrdered By: Joao Tomas on 12-24-2021 Platelets (Bld) [#/Vol] 166 10*3/uL 150-450 [facility] Serum or plasma calcium siobhan urement (mass/volume)Ordered By: Jhonny Tomas on 12-24-2021 Calcium [Mass/Vol] 8.8 mg/dL 8.5-10.1 [facility] Serum or plasma creatinine m easurement (mass/volume)Ordered By: Jhonny Tomas on 12-24-2021 Creatinine [Mass/Vol] 1.02 mg/dL 0.70-1.30 [facility] Comment on above: The validity of the calculated GFR & GFRAA in patients over 70 years has not been determined. Clinical correlation is essential. Serum or plasma urea nitroge n measurement (mass/volume)Ordered By: Jhonny Tomas on 12-24-2021 Urea nitrogen [Mass/Vol] 15 mg/dL 7-18 [facility] Thin prep Papanicolaou smear with manual screeningOrdered By: Jhonny Tomas on 12-24-2021 Thin prep Papanicolaou smear with manual screening 5 5-15 [facility] Absolute lymphocyte counton 12-10-2021 Lymphocytes Auto (Unsp spec) [#/Vol] 1.33 10*3/uL 0.83-4.51 [facility] Work Phone: Basophil percentageon 2021 Basophils/100 WBC (Bld) 0.4 % 0-1 [facility] Work Phone: Chloride [Moles/Vol] 105 mmol/L 98-107 [facility] Work Phone: Eosinophils/100 WBC (Bld) 1.3 % 0-5 [facility] Work Phone: Glucose [Mass/Vol] 103 mg/dL 74-106 [facility] Work Phone: [phone] Comment on above: Fasting Glucose resu lt from 100 to 125 mg/dL suggests IMPAIRED HOMEOSTASIS per A.D.A. criteria. Neutrophils (Bld) [#/Vol] 4.8 10*3/uL 2.0-7.7 [facility] Work Phone: Neutrophils/100 WBC (Bld) 69.1 % 47-70 [facility] Work Phone: Potassium [Moles/Vol] 3.7 mmol/L 3.5-5.1 [facility] Work Phone: Sodium [Moles/Vol] 141 mmol/L 136-145 [facility] Work Phone: WBC (Bld) [#/Vol] 7.0 10*3/uL 4.4-11.0 [facility] Work Phone: Blood erythrocytes count (nu mber/volume)on 12-10-2021 RBC (Bld) [#/Vol] 4.88 10*6/uL 4.6-6.2 [facility] Work Phone: Blood hemoglobin measurement (mass/volume)on 12-10-2021 Hemoglobin (Bld) [Mass/Vol] 15.5 g/dL 13.0-16.5 [facility] Work Phone: [phone] Blood lymphocytes/100 leukoc yteson 12-10-2021 Lymphocytes/100 WBC (Bld) 19.1 % 19-41 [facility] Work Phone: [phone] Blood monocytes/100 leukocyt eson 12-10-2021 Monocytes/100 WBC (Bld) 9.8 % 0-10 [facility] Work Phone: Blood platelet mean volumeon 12-10-2021 Platelet mean volume (Bld) [Entitic vol] 10.8 fL 6.2-12.0 [facility] Work Phone: Determination of erythrocyte mean corpuscular volume (MCV)on 12-10-2021 MCV (RBC) [Entitic vol] 95.9 fL 80-94 [facility] Work Phone: Hematocrit Auto (Bld) [Volum e fraction]on 12-10-2021 Hematocrit (Bld) [Volume fraction] 46.8 % 40-54 [facility] Work Phone: Laboratory - Chemistry and C hemistry - challengeon 12-10-2021 CO2 [Moles/Vol] 30.0 mmol/L 21.0-32.0 [facility] Work Phone: Urea nitrogen/Creatinine [Mass ratio] 11.3 mg/mg 10-20 [facility] Work Phone: Laboratory - Hematology and Cell countson 12-10-2021 Erythrocyte distribution width (RBC) [Entitic vol] 51.1 fL 35.1-43.9 [facility] Work Phone: Erythrocyte distribution width (RBC) [Ratio] 14.4 % 11.6-14.6 [facility] Work Phone: Immature granulocytes/100 WBC (Bld) 0.300 % 0.0-0.9 [facility] Work Phone: Comment on above: IG% - Immature Granu locytes (promyelocytes, myelocytes and metamyelocytes) > 1% indicates that a LEFT SHIFT is Present. MCH (RBC) [Entitic mass] 31.8 pg 27.0-32.0 [facility] Work Phone: Nucleated RBC/100 WBC (Bld) [Ratio] 0 % 0-5 [facility] Work Phone: MCHC Auto (RBC) [Mass/Vol]on 12-10-2021 MCHC (RBC) [Mass/Vol] 33.1 g/dL 32-36 [facility] Work Phone: No Panel Informationon 12-10 Estimated GFR (MDRD) Amer 86 mL/min >60 [facility] Work Phone: Comment on above: GFR Calc Estimated GFR (MDRD) Non-Af Amer 71 mL/min >60 [facility] Work Phone: Comment on above: Non- GFR Calc Platelets bldon 12-10-2021 Platelets (Bld) [#/Vol] 176 10*3/uL 150-450 [facility] Work Phone: Serum or plasma calcium siobhan urement (mass/volume)on 12-10-2021 Calcium [Mass/Vol] 8.9 mg/dL 8.5-10.1 [facility] Work Phone: Serum or plasma creatinine m easurement (mass/volume)on 12-10-2021 Creatinine [Mass/Vol] 1.06 mg/dL 0.70-1.30 [facility] Work Phone: Comment on above: The validity of the calculated GFR & GFRAA in patients over 70 years has not been determined. Clinical correlation is essential. Serum or plasma urea nitroge n measurement (mass/volume)on 12-10-2021 Urea nitrogen [Mass/Vol] 12 mg/dL 7-18 [facility] Work Phone: Thin prep Papanicolaou smear with manual screeningon 12-10-2021 Thin prep Papanicolaou smear with manual screening 6 5-15 [facility] Work Phone: CNPNon 12-09-2021 CNPN Telephone (INTMWS) KEL DILLARD ([id number]) 1940 Date Time Provider Department 12/09/21 NICOLAS KAUR During your visit today, we recorded the following information about you: Ludivina Cárdenas LPN 12/09/2021 3:11 PM Signed Patient son Jhonny calling said PCP completed expert evaluation form on 09/29 for guardianship and cement cutter said question number [phone] needs revised. Son Jhonny said 2 weeks after form was done father had fall and was taken to [facility] then sent to [facility] for rehab. Now father is in memory care unit, his dementia is at 6 out of 7. Son is going to drop off new form to be competed, since father can not care for himself or do anything for himself. Please advise Flora Brasher LPN 12/09/2021 3:27 PM Signed Form to pcp to review. Nicolas Kaur MD 12/09/2021 4:52 PM Signed I have not seen him since hospital stay and he is now under the [facility] attending physician's care. It is more appropriate for the [facility] attending physician to do another form. More statements need corrected/updated Preethi Delgadillo RN 12/11/2021 2:59 PM Signed Son (Jhonny) calls in and provider message reviewed. Son asking if form brought in can be picked back up in Medical Records. Please contact Jhonny at [phone]. RENETTA Rubio LPN 12/11/2021 3:41 PM Signed [...] behavioral disturbance *09/29/2021 Encounter Status:Closed by FLORA BRASHER LPN on 12/11/21 Normal [facility] Absolute lymphocyte counton 11-26-2021 Lymphocytes Auto (Unsp spec) [#/Vol] 1.47 10*3/uL 0.83-4.51 [facility] Work Phone: Basophil percentageon 2021 Basophils/100 WBC (Bld) 0.6 % 0-1 [facility] Work Phone: [phone] Chloride [Moles/Vol] 107 mmol/L 98-107 [facility] Work Phone: [phone] Eosinophils/100 WBC (Bld) 1.1 % 0-5 [facility] Work Phone: Glucose [Mass/Vol] 92 mg/dL 74-106 [facility] Work Phone: [phone] Neutrophils (Bld) [#/Vol] 6.4 10*3/uL 2.0-7.7 [facility] Work Phone: Neutrophils/100 WBC (Bld) 71.7 % 47-70 [facility] Work Phone: Potassium [Moles/Vol] 4.0 mmol/L 3.5-5.1 [facility] Work Phone: Comment on above: Slight Hemolysis, Re sult may be falsely increased. Sodium [Moles/Vol] 141 mmol/L 136-145 [facility] Work Phone: WBC (Bld) [#/Vol] 9.0 10*3/uL 4.4-11.0 [facility] Work Phone: Blood erythrocytes count (nu mber/volume)on 11-26-2021 RBC (Bld) [#/Vol] 4.81 10*6/uL 4.6-6.2 [facility] Work Phone: [phone] Blood hemoglobin measurement (mass/volume)on 11-26-2021 Hemoglobin (Bld) [Mass/Vol] 15.3 g/dL 13.0-16.5 [facility] Work Phone: [phone] Blood lymphocytes/100 leukoc yteson 11-26-2021 Lymphocytes/100 WBC (Bld) 16.4 % 19-41 [facility] Work Phone: Blood monocytes/100 leukocyt eson 11-26-2021 Monocytes/100 WBC (Bld) 9.9 % 0-10 [facility] Work Phone: Blood platelet mean volumeon 11-26-2021 Platelet mean volume (Bld) [Entitic vol] 11.2 fL 6.2-12.0 [facility] Work Phone: Determination of erythrocyte mean corpuscular volume (MCV)on 11-26-2021 MCV (RBC) [Entitic vol] 96.7 fL 80-94 [facility] Work Phone: Hematocrit Auto (Bld) [Volum e fraction]on 11-26-2021 Hematocrit (Bld) [Volume fraction] 46.5 % 40-54 [facility] Work Phone: Laboratory - Chemistry and C hemistry - challengeon 11-26-2021 CO2 [Moles/Vol] 28.0 mmol/L 21.0-32.0 [facility] Work Phone: Urea nitrogen/Creatinine [Mass ratio] 13.3 mg/mg 10-20 [facility] Work Phone: Laboratory - Hematology and Cell countson 11-26-2021 Erythrocyte distribution width (RBC) [Entitic vol] 51.9 fL 35.1-43.9 [facility] Work Phone: Erythrocyte distribution width (RBC) [Ratio] 14.5 % 11.6-14.6 [facility] Work Phone: Immature granulocytes/100 WBC (Bld) 0.300 % 0.0-0.9 [facility] Work Phone: Comment on above: IG% - Immature Granu locytes (promyelocytes, myelocytes and metamyelocytes) > 1% indicates that a LEFT SHIFT is Present. MCH (RBC) [Entitic mass] 31.8 pg 27.0-32.0 [facility] Work Phone: Nucleated RBC/100 WBC (Bld) [Ratio] 0 % 0-5 [facility] Work Phone: MCHC Auto (RBC) [Mass/Vol]on 11-26-2021 MCHC (RBC) [Mass/Vol] 32.9 g/dL 32-36 [facility] Work Phone: No Panel Informationon 11-26 Estimated GFR (MDRD) Amer 80 mL/min >60 [facility] Work Phone: Comment on above: GFR Calc Estimated GFR (MDRD) Non-Af Amer 66 mL/min >60 [facility] Work Phone: Comment on above: Non- GFR Calc Platelets bldon 11-26-2021 Platelets (Bld) [#/Vol] 181 10*3/uL 150-450 [facility] Work Phone: Serum or plasma calcium siobhan urement (mass/volume)on 11-26-2021 Calcium [Mass/Vol] 8.7 mg/dL 8.5-10.1 [facility] Work Phone: Serum or plasma creatinine m easurement (mass/volume)on 11-26-2021 Creatinine [Mass/Vol] 1.13 mg/dL 0.70-1.30 [facility] Work Phone: Comment on above: The validity of the calculated GFR & GFRAA in patients over 70 years has not been determined. Clinical correlation is essential. Serum or plasma urea nitroge n measurement (mass/volume)on 11-26-2021 Urea nitrogen [Mass/Vol] 15 mg/dL 7-18 [facility] Work Phone: Thin prep Papanicolaou smear with manual screeningon 11-26-2021 Thin prep Papanicolaou smear with manual screening 6 5-15 [facility] Work Phone: Absolute lymphocyte counton 11-12-2021 Lymphocytes Auto (Unsp spec) [#/Vol] 1.01 10*3/uL 0.83-4.51 [facility] Work Phone: Basophil percentageon 2021 Basophils/100 WBC (Bld) 0.6 % 0-1 [facility] Work Phone: [phone] Chloride [Moles/Vol] 109 mmol/L 98-107 [facility] Work Phone: [phone] Eosinophils/100 WBC (Bld) 1.1 % 0-5 [facility] Work Phone: [phone] Glucose [Mass/Vol] 89 mg/dL 74-106 [facility] Work Phone: [phone] Neutrophils (Bld) [#/Vol] 4.7 10*3/uL 2.0-7.7 [facility] Work Phone: [phone] Neutrophils/100 WBC (Bld) 72.7 % 47-70 [facility] Work Phone: [phone] Potassium [Moles/Vol] 3.9 mmol/L 3.5-5.1 [facility] Work Phone: [phone] Sodium [Moles/Vol] 142 mmol/L 136-145 [facility] Work Phone: [phone] WBC (Bld) [#/Vol] 6.5 10*3/uL 4.4-11.0 [facility] Work Phone: Blood erythrocytes count (nu mber/volume)on 11-12-2021 RBC (Bld) [#/Vol] 4.50 10*6/uL 4.6-6.2 [facility] Work Phone: [phone] Blood hemoglobin measurement (mass/volume)on 11-12-2021 Hemoglobin (Bld) [Mass/Vol] 14.4 g/dL 13.0-16.5 [facility] Work Phone: [phone] Blood lymphocytes/100 leukoc yteson 11-12-2021 Lymphocytes/100 WBC (Bld) 15.5 % 19-41 [facility] Work Phone: Blood monocytes/100 leukocyt eson 11-12-2021 Monocytes/100 WBC (Bld) 9.8 % 0-10 [facility] Work Phone: Blood platelet mean volumeon 11-12-2021 Platelet mean volume (Bld) [Entitic vol] 10.9 fL 6.2-12.0 [facility] Work Phone: Determination of erythrocyte mean corpuscular volume (MCV)on 11-12-2021 MCV (RBC) [Entitic vol] 97.3 fL 80-94 [facility] Work Phone: Hematocrit Auto (Bld) [Volum e fraction]on 11-12-2021 Hematocrit (Bld) [Volume fraction] 43.8 % 40-54 [facility] Work Phone: Laboratory - Chemistry and C hemistry - challengeon 11-12-2021 CO2 [Moles/Vol] 26.0 mmol/L 21.0-32.0 [facility] Work Phone: Urea nitrogen/Creatinine [Mass ratio] 16.4 mg/mg 10-20 [facility] Work Phone: Laboratory - Hematology and Cell countson 11-12-2021 Erythrocyte distribution width (RBC) [Entitic vol] 53.1 fL 35.1-43.9 [facility] Work Phone: Erythrocyte distribution width (RBC) [Ratio] 14.8 % 11.6-14.6 [facility] Work Phone: Immature granulocytes/100 WBC (Bld) 0.300 % 0.0-0.9 [facility] Work Phone: Comment on above: IG% - Immature Granu locytes (promyelocytes, myelocytes and metamyelocytes) > 1% indicates that a LEFT SHIFT is Present. MCH (RBC) [Entitic mass] 32.0 pg 27.0-32.0 [facility] Work Phone: Nucleated RBC/100 WBC (Bld) [Ratio] 0 % 0-5 [facility] Work Phone: MCHC Auto (RBC) [Mass/Vol]on 11-12-2021 MCHC (RBC) [Mass/Vol] 32.9 g/dL 32-36 [facility] Work Phone: No Panel Informationon 11-12 Estimated GFR (MDRD) Amer 102 mL/min >60 [facility] Work Phone: Comment on above: GFR Calc Estimated GFR (MDRD) Non-Af Amer 84 mL/min >60 [facility] Work Phone: Comment on above: Non- GFR Calc Platelets bldon 11-12-2021 Platelets (Bld) [#/Vol] 181 10*3/uL 150-450 [facility] Work Phone: Serum or plasma calcium siobhan urement (mass/volume)on 11-12-2021 Calcium [Mass/Vol] 8.7 mg/dL 8.5-10.1 [facility] Work Phone: Serum or plasma creatinine m easurement (mass/volume)on 11-12-2021 Creatinine [Mass/Vol] 0.92 mg/dL 0.70-1.30 [facility] Work Phone: Comment on above: The validity of the calculated GFR & GFRAA in patients over 70 years has not been determined. Clinical correlation is essential. Serum or plasma urea nitroge n measurement (mass/volume)on 11-12-2021 Urea nitrogen [Mass/Vol] 15 mg/dL 7-18 [facility] Work Phone: Thin prep Papanicolaou smear with manual screeningon 11-12-2021 Thin prep Papanicolaou smear with manual screening 7 -15 [facility] Work Phone: Absolute lymphocyte counton 10-29-2021 Lymphocytes Auto (Unsp spec) [#/Vol] 0.96 10*3/uL 0.83-4.51 [facility] Work Phone: Basophil percentageon 2021 Basophils/100 WBC (Bld) 0.5 % 0-1 [facility] Work Phone: Chloride [Moles/Vol] 110 mmol/L 98-107 [facility] Work Phone: Eosinophils/100 WBC (Bld) 1.9 % 0-5 [facility] Work Phone: Glucose [Mass/Vol] 93 mg/dL 74-106 [facility] Work Phone: Neutrophils (Bld) [#/Vol] 4.5 10*3/uL 2.0-7.7 [facility] Work Phone: Neutrophils/100 WBC (Bld) 70.1 % 47-70 [facility] Work Phone: Potassium [Moles/Vol] 3.8 mmol/L 3.5-5.1 [facility] Work Phone: Sodium [Moles/Vol] 142 mmol/L 136-145 [facility] Work Phone: [phone] WBC (Bld) [#/Vol] 6.4 10*3/uL 4.4-11.0 [facility] Work Phone: [phone] Blood erythrocytes count (nu mber/volume)on 10-29-2021 RBC (Bld) [#/Vol] 4.38 10*6/uL 4.6-6.2 [facility] Work Phone: [phone] Blood hemoglobin measurement (mass/volume)on 10-29-2021 Hemoglobin (Bld) [Mass/Vol] 13.9 g/dL 13.0-16.5 [facility] Work Phone: Blood lymphocytes/100 leukoc yteson 10-29-2021 Lymphocytes/100 WBC (Bld) 15.1 % 19-41 [facility] Work Phone: Blood monocytes/100 leukocyt eson 10-29-2021 Monocytes/100 WBC (Bld) 12.1 % 0-10 [facility] Work Phone: Blood platelet mean volumeon 10-29-2021 Platelet mean volume (Bld) [Entitic vol] 11.2 fL 6.2-12.0 [facility] Work Phone: Determination of erythrocyte mean corpuscular volume (MCV)on 10-29-2021 MCV (RBC) [Entitic vol] 96.8 fL 80-94 [facility] Work Phone: Hematocrit Auto (Bld) [Volum e fraction]on 10-29-2021 Hematocrit (Bld) [Volume fraction] 42.4 % 40-54 [facility] Work Phone: Laboratory - Chemistry and C hemistry - challengeon 10-29-2021 CO2 [Moles/Vol] 27.0 mmol/L 21.0-32.0 [facility] Work Phone: Urea nitrogen/Creatinine [Mass ratio] 11.1 mg/mg 10-20 [facility] Work Phone: Laboratory - Hematology and Cell countson 10-29-2021 Erythrocyte distribution width (RBC) [Entitic vol] 52.1 fL 35.1-43.9 [facility] Work Phone: Erythrocyte distribution width (RBC) [Ratio] 14.6 % 11.6-14.6 [facility] Work Phone: Immature granulocytes/100 WBC (Bld) 0.300 % 0.0-0.9 [facility] Work Phone: Comment on above: IG% - Immature Granu locytes (promyelocytes, myelocytes and metamyelocytes) > 1% indicates that a LEFT SHIFT is Present. MCH (RBC) [Entitic mass] 31.7 pg 27.0-32.0 [facility] Work Phone: Nucleated RBC/100 WBC (Bld) [Ratio] 0 % 0-5 [facility] Work Phone: MCHC Auto (RBC) [Mass/Vol]on 10-29-2021 MCHC (RBC) [Mass/Vol] 32.8 g/dL 32-36 [facility] Work Phone: No Panel Informationon 10-29 Estimated GFR (MDRD) Amer 84 mL/min >60 [facility] Work Phone: Comment on above: GFR Calc Estimated GFR (MDRD) Non-Af Amer 70 mL/min >60 [facility] Work Phone: Comment on above: Non- GFR Calc Platelets bldon 10-29-2021 Platelets (Bld) [#/Vol] 187 10*3/uL 150-450 [facility] Work Phone: Serum or plasma calcium siobhan urement (mass/volume)on 10-29-2021 Calcium [Mass/Vol] 8.8 mg/dL 8.5-10.1 [facility] Work Phone: Serum or plasma creatinine m easurement (mass/volume)on 10-29-2021 Creatinine [Mass/Vol] 1.08 mg/dL 0.70-1.30 [facility] Work Phone: Comment on above: The validity of the calculated GFR & GFRAA in patients over 70 years has not been determined. Clinical correlation is essential. Serum or plasma urea nitroge n measurement (mass/volume)on 10-29-2021 Urea nitrogen [Mass/Vol] 12 mg/dL 7-18 [facility] Work Phone: Thin prep Papanicolaou smear with manual screeningon 10-29-2021 Thin prep Papanicolaou smear with manual screening 5 5-15 [facility] Work Phone: Sera 10-23-2021 CNPN Telephone (INTMWS) KEL DILLARD ([id number]) 1940 M Date Time Provider Department 10/23/21 NICOLAS KAUR INTMWS During your visit today, we recorded the following information about you: Flora Brasher CHAPLAIN 10/23/2021 11:54 AM Signed Per [facility] discharge info pt was discharged to [facility] 10/22/21. Allergies As of Date: [...] behavioral disturbance *09/29/2021 Encounter Status:Closed by FLORA BRASHER LPN on 10/23/21 Normal [facility] Laboratory - Chemistry and C hemistry - challengeon 10-22-2021 CK [Catalytic activity/Vol] 1616 U/L 39-308 [facility] Work Phone: [phone] Absolute lymphocyte counton 10-21-2021 Lymphocytes Auto (Unsp spec) [#/Vol] 0.75 10*3/uL 0.83-4.51 [facility] Work Phone: [phone] Basophil percentageon 2021 Basophils/100 WBC (Bld) 0.1 % 0-1 [facility] Work Phone: [phone] Chloride [Moles/Vol] 107 mmol/L 98-107 [facility] Work Phone: [phone] Eosinophils/100 WBC (Bld) 0.0 % 0-5 [facility] Work Phone: Glucose [Mass/Vol] 144 mg/dL 74-106 [facility] Work Phone: [phone] Comment on above: Fasting Glucose resu lt greater than or equal to 126 mg/dL suggests DIABETES MELLITUS per A.D.A. criteria. Neutrophils (Bld) [#/Vol] 11.4 10*3/uL 2.0-7.7 [facility] Work Phone: [phone] Neutrophils/100 WBC (Bld) 85.4 % 47-70 [facility] Work Phone: [phone] Potassium [Moles/Vol] 3.7 mmol/L 3.5-5.1 [facility] Work Phone: Sodium [Moles/Vol] 141 mmol/L 136-145 [facility]: WBC (Bld) [#/Vol] 13.4 10*3/uL 4.4-11.0 [facility] Work Phone: Blood erythrocytes count (nu mber/volume)on 10-21-2021 RBC (Bld) [#/Vol] 5.04 10*6/uL 4.6-6.2 [facility] Work Phone: Blood hemoglobin measurement (mass/volume)on 10-21-2021 Hemoglobin (Bld) [Mass/Vol] 15.7 g/dL 13.0-16.5 [facility] Work Phone: Blood lymphocytes/100 leukoc yteson 10-21-2021 Lymphocytes/100 WBC (Bld) 5.6 % 19-41 [facility] Work Phone: Blood monocytes/100 leukocyt eson 10-21-2021 Monocytes/100 WBC (Bld) 8.5 % 0-10 [facility] Work Phone: Blood platelet mean volumeon 10-21-2021 Platelet mean volume (Bld) [Entitic vol] 11.2 fL 6.2-12.0 [facility] Work Phone: Determination of erythrocyte mean corpuscular volume (MCV)on 10-21-2021 MCV (RBC) [Entitic vol] 93.8 fL 80-94 [facility] Work Phone: Hematocrit Auto (Bld) [Volum e fraction]on 10-21-2021 Hematocrit (Bld) [Volume fraction] 47.3 % 40-54 [facility] Work Phone: Laboratory - Chemistry and C hemistry - challengeon 10-21-2021 CO2 [Moles/Vol] 26.0 mmol/L 21.0-32.0 [facility] Work Phone: Urea nitrogen/Creatinine [Mass ratio] 14.2 mg/mg 10-20 [facility] Work Phone: Laboratory - Hematology and Cell countson 10-21-2021 Erythrocyte distribution width (RBC) [Entitic vol] 50.5 fL 35.1-43.9 [facility] Work Phone: Erythrocyte distribution width (RBC) [Ratio] 14.7 % 11.6-14.6 [facility] Work Phone: Immature granulocytes/100 WBC (Bld) 0.400 % 0.0-0.9 [facility] Work Phone: Comment on above: IG% - Immature Granu locytes (promyelocytes, myelocytes and metamyelocytes) > 1% indicates that a LEFT SHIFT is Present. MCH (RBC) [Entitic mass] 31.2 pg 27.0-32.0 [facility] Work Phone: Nucleated RBC/100 WBC (Bld) [Ratio] 0 % 0-5 [facility] Work Phone: MCHC Auto (RBC) [Mass/Vol]on 10-21-2021 MCHC (RBC) [Mass/Vol] 33.2 g/dL 32-36 [facility] Work Phone: No Panel Informationon 10-21 Estimated Creatinine Clearance Calc 48.76 ml/min [facility] Work Phone: Estimated GFR (MDRD) Amer 80 mL/min >60 [facility] Work Phone: Comment on above: GFR Calc Estimated GFR (MDRD) Non-Af Amer 66 mL/min >60 [facility] Work Phone: Comment on above: Non- GFR Calc Thyroid Stimulating Hormone (TSH) 1.56 uIU/mL 0.358-3.74 [facility] Work Phone: Vitamin D 25-Hydroxy 10.8 ng/mL [facility] Work Phone: Comment on above: Vitamin D 25(OH) Sta tus Range Deficiency <20 ng/mL (50nmol/L) Insufficiency 20 - 30 ng/mL (50 - 75 nmol/L) Sufficiency 30 - 100 ng/mL (75 - 250 nmol/L) Toxicity >100 ng/mL (>250 nmol/L) Platelets bldon 10-21-2021 Platelets (Bld) [#/Vol] 219 10*3/uL 150-450 [facility] Work Phone: Serum or plasma calcium siobhan urement (mass/volume)on 10-21-2021 Calcium [Mass/Vol] 9.1 mg/dL 8.5-10.1 [facility] Work Phone: Serum or plasma creatinine m easurement (mass/volume)on 10-21-2021 Creatinine [Mass/Vol] 1.13 mg/dL 0.70-1.30 [facility] Work Phone: Comment on above: The validity of the calculated GFR & GFRAA in patients over 70 years has not been determined. Clinical correlation is essential. Serum or plasma urea nitroge n measurement (mass/volume)on 10-21-2021 Urea nitrogen [Mass/Vol] 16 mg/dL 7-18 [facility] Work Phone: Thin prep Papanicolaou smear with manual screeningon 10-21-2021 Thin prep Papanicolaou smear with manual screening 8 5-15 [facility] Work Phone: Absolute lymphocyte counton 10-20-2021 Lymphocytes Auto (Unsp spec) [#/Vol] 0.59 10*3/uL 0.83-4.51 [facility] Work Phone: Basophil percentageon 2021 Basophil percentage 5-10 SEEN /hpf 0-5 [facility] Work Phone: Basophils/100 WBC (Bld) 0.1 % 0-1 [facility] Work Phone: Chloride [Moles/Vol] 107 mmol/L 98-107 [facility] Work Phone: Eosinophils/100 WBC (Bld) 0.0 % 0-5 [facility] Work Phone: Glucose [Mass/Vol] 110 mg/dL 74-106 [facility] Work Phone: Comment on above: Fasting Glucose resu lt from 100 to 125 mg/dL suggests IMPAIRED HOMEOSTASIS per A.D.A. criteria. Neutrophils (Bld) [#/Vol] 11.6 10*3/uL 2.0-7.7 [facility] Work Phone: Neutrophils/100 WBC (Bld) 85.8 % 47-70 [facility] Work Phone: Potassium [Moles/Vol] 3.6 mmol/L 3.5-5.1 [facility] Work Phone: Sodium [Moles/Vol] 141 mmol/L 136-145 [facility] Work Phone: WBC (Bld) [#/Vol] 13.5 10*3/uL 4.4-11.0 [facility] Work Phone: Bilirubin Test strip Ql (U)o n 10-20-2021 Bilirubin Ql (U) Negative Negative [facility] Work Phone: Blood erythrocytes count (nu mber/volume)on 10-20-2021 RBC (Bld) [#/Vol] 5.14 10*6/uL 4.6-6.2 [facility] Work Phone: Blood hemoglobin measurement (mass/volume)on 10-20-2021 Hemoglobin (Bld) [Mass/Vol] 15.9 g/dL 13.0-16.5 [facility] Work Phone: Blood lymphocytes/100 leukoc yteson 10-20-2021 Lymphocytes/100 WBC (Bld) 4.4 % 19-41 [facility] Work Phone: Blood manual differential co mment interpretation (narrative result)on 10-20-2021 Manual differential comment Wei (Bld) [Interp] SEE COMMENT [facility] Work Phone: Comment on above: LYMPHOPENIA NOTED Blood monocytes/100 leukocyt eson 10-20-2021 Monocytes/100 WBC (Bld) 9.0 % 0-10 [facility] Work Phone: Blood platelet adequacy dete ction by light microscopyon 10-20-2021 Platelets LM Ql (Bld) ADEQUATE ADEQ [facility] Work Phone: Blood platelet mean volumeon 10-20-2021 Platelet mean volume (Bld) [Entitic vol] 10.4 fL 6.2-12.0 [facility] Work Phone: Determination of erythrocyte mean corpuscular volume (MCV)on 10-20-2021 MCV (RBC) [Entitic vol] 92.8 fL 80-94 [facility] Work Phone: Hematocrit Auto (Bld) [Volum e fraction]on 10-20-2021 Hematocrit (Bld) [Volume fraction] 47.7 % 40-54 [facility] Work Phone: Hyaline casts LM.LPF (Urine sed) [#/Area]on 10-20-2021 Hyaline casts (Urine sed) [#/Area] 0 /[LPF] 0-5 [facility] Work Phone: Ketones Test strip Ql (U)on 10-20-2021 Ketones Ql (U) 50 mg/dl Negative [facility] Work Phone: Laboratory - Chemistry and C hemistry - challengeon 10-20-2021 CO2 [Moles/Vol] 25.0 mmol/L 21.0-32.0 [facility] Work Phone: Urea nitrogen/Creatinine [Mass ratio] 15.0 mg/mg 10-20 [facility] Work Phone: Laboratory - Hematology and Cell countson 10-20-2021 Anisocytosis Ql (Bld) RARE [facility] Work Phone: Erythrocyte distribution width (RBC) [Entitic vol] 48.4 fL 35.1-43.9 [facility] Work Phone: Erythrocyte distribution width (RBC) [Ratio] 14.4 % 11.6-14.6 [facility] Work Phone: Immature granulocytes/100 WBC (Bld) 0.700 % 0.0-0.9 [facility] Work Phone: Comment on above: IG% - Immature Granu locytes (promyelocytes, myelocytes and metamyelocytes) > 1% indicates that a LEFT SHIFT is Present. MCH (RBC) [Entitic mass] 30.9 pg 27.0-32.0 [facility] Work Phone: Nucleated RBC/100 WBC (Bld) [Ratio] 0 % 0-5 [facility] Work Phone: MCHC Auto (RBC) [Mass/Vol]on 10-20-2021 MCHC (RBC) [Mass/Vol] 33.3 g/dL 32-36 [facility] Work Phone: Macrocytes detectionon 10-20 [facility]rocytes [facility]l (Bld) [facility]: Mucus LM Ql (Urine sed)on Mucus Ql (Urine sed) 0 SEEN /hpf [facility] Work Phone: Nitrite Test strip Ql (U)on 10-20-2021 Nitrite Ql (U) Negative Negative [facility] Work Phone: No Panel Informationon 10-20 Estimated Creatinine Clearance Calc 53.23 ml/min [facility] Work Phone: Estimated GFR (MDRD) Amer 85 mL/min >60 [facility] Work Phone: Comment on above: GFR Calc Estimated GFR (MDRD) Non-Af Amer 70 mL/min >60 [facility] Work Phone: Comment on above: Non- GFR Calc Platelets bldon 10-20-2021 Platelets (Bld) [#/Vol] 198 10*3/uL 150-450 [facility] Work Phone: Protein Test strip Ql (U)on 10-20-2021 Protein Ql (U) 30 mg/dl Negative [facility] Work Phone: RBC morphologyon 10-20-2021 RBC morphology finding Nom (Bld) N CHROM NORMAL NORM C&C [facility] Work Phone: Serum or plasma calcium siobhan urement (mass/volume)on 10-20-2021 Calcium [Mass/Vol] 9.1 mg/dL 8.5-10.1 [facility] Work Phone: Serum or plasma creatinine m easurement (mass/volume)on 10-20-2021 Creatinine [Mass/Vol] 1.07 mg/dL 0.70-1.30 [facility] Work Phone: Comment on above: The validity of the calculated GFR & GFRAA in patients over 70 years has not been determined. Clinical correlation is essential. Serum or plasma urea nitroge n measurement (mass/volume)on 10-20-2021 Urea nitrogen [Mass/Vol] 16 mg/dL 7-18 [facility] Work Phone: Squamous epithelial cells de tection in urine sediment by light microscopyon 10-20-2021 Epithelial cells.squamous LM Ql (Urine sed) 0 SEEN /hpf 0-5 [facility] Work Phone: Thin prep Papanicolaou smear with manual screeningon 10-20-2021 Thin prep Papanicolaou smear with manual screening 9 5-15 [facility] Work Phone: Urine blood detectionon 09-30 RBC Ql (U) 250 /ul Negative [facility] Work Phone: RBC Ql (U) 0 SEEN /hpf 0-5 [facility] Work Phone: Urine clarityon 10-20-2021 Clarity (U) Sl. Cloudy Clear [facility] Work Phone: Urine color determinationon 10-20-2021 Color (U) Kristina Yellow [facility] Work Phone: Urine glucose detectionon Glucose Ql (U) Normal mg/dl Normal [facility] Work Phone: Urine leukocyte esterase det ection by dipstickon 10-20-2021 Leukocyte esterase Test strip Ql (U) 25 /ul Negative [facility] Work Phone: Urine pHon 10-20-2021 pH (U) 5.0 [pH] 5.0 - 8.0 [facility] Work Phone: Urine sediment bacteria coun t by microscopy (number/high power field)on 10-20-2021 Bacteria LM.HPF (Urine sed) [#/Area] 1 /[HPF] None Seen [facility] Work Phone: Urine specific gravity measu rementon 10-20-2021 Specific gravity (U) [Rel density] 1.025 1.002-1.030 [facility] Work Phone: Urobilinogen Auto test strip Ql (U)on 10-20-2021 Urobilinogen Ql (U) 1 mg/dl Normal [facility] Work Phone: CNOVon 09-29-2021 CNOV Office Visit (INTMWS) KEL DILLARD ([id number]) 1940 M Date Time Provider Department 09/29/21 4:40 PM NICOLAS KAUR INTMWS During your visit today, we recorded the following information about you: Temperature Pulse Respiration Blood pressure Normal [facility] Sera 07-15-2021 CNPN Telephone (INTMWS) GILMAKEL XAVIER ([id number]) 1940 M Date Time Provider Department 07/15/21 NIOCLAS KAUR INTMWS During your visit today, we recorded the following information about you: Karen Matias RN 07/15/2021 1:40 PM Signed Yesenia, Admissions staff member at [facility] calling to state patient's son Jhonny has reached out to them to request patient possibly be admitted into their memory care unit due to cognition concerns. Yesenia is requesting notes from patient's last OV be faxed to them at [phone]. This nurse contacted son Jhonny to verify the request and he confirmed it was ok to share requested information. Information faxed as requested. Karen Matias RN Allergies As of Date: 07/15/2021 (No Known Allergies) Date Reviewed: 05/12/2021 Reviewed by: Dori Martines APRN.MACHINE OPERATOR HELPER - Fully Assessed Reason for Visit: fax [...] Status:Closed by KAREN MATIAS on 07/15/21 Normal [facility] Culture, urine Bacteria identified Cx Nom (U) Positive [facility] Work Phone: Vital Signs Date Time Vital Sign Value Performing Clinician Faci lity 12-02-2022 10:40-0400 Body height 175.[address] Nicolas Kaur Work Phone: [facility] 04-02-2022 14:41-0500 Body height 175.[address] Nicolas Kaur Work Phone: [facility] 10-22-2021 08:30-0400 Body temperature 98.2 [degF] Dr. Nicolas Kaur Work Phone: [facility] Work Phone: 10-22-2021 08:30-0400 Diastolic blood pressure 71 mm[Hg] Dr. Nicolas Kaur Work Phone: [facility] Work Phone: 10-22-2021 08:30-0400 Heart rate 59 /min Dr. Nicolas Kaur Work Phone: [facility] Work Phone: 10-22-2021 08:30-0400 Respiratory rate 16 /min Dr. Nicolas Kaur Work Phone: [facility] Work Phone: 10-22-2021 08:30-0400 SaO2% (BldA) [Mass fraction] 95 % Dr. Nicolas Kaur Work Phone: [facility] Work Phone: 10-22-2021 08:30-0400 Systolic blood pressure 125 mm[Hg] Dr. Nicolas Kaur Work Phone: [facility] Work Phone: 10-21-2021 01:00-0400 Body height 175.[address] Nicolas Kaur Work Phone: [facility] Work Phone: 10-21-2021 01:00-0400 Body mass index (BMI) [Ratio] 28.1 kg/m2 Dr. Nicolas Kaur Work Phone: [facility] Work Phone: 10-21-2021 01:00-0400 Body weight 86.[address] Nicolas Kaur Work Phone: [facility] Work Phone: 10-21-2021 00:46-0400 Body temperature 97.9 [degF] Dr. Nicolas Kaur Work Phone: [facility] Work Phone: 10-21-2021 00:46-0400 Diastolic blood pressure 74 mm[Hg] Dr. Nicolas Kaur Work Phone: [facility] Work Phone: 10-21-2021 00:46-0400 Heart rate 60 /min Dr. Nicolas Kaur Work Phone: [facility] Work Phone: 10-21-2021 00:46-0400 Respiratory rate 25 /min Dr. Nicolas Kaur Work Phone: [facility] Work Phone: 10-21-2021 00:46-0400 SaO2% (BldA) [Mass fraction] 94 % Dr. Nicolas Kaur Work Phone: [facility] Work Phone: 10-21-2021 00:46-0400 Systolic blood pressure 115 mm[Hg] Dr. Nicolas Kaur Work Phone: [facility] Work Phone: 10-20-2021 20:20-0400 Body height 175.[address] Nicolas Kaur Work Phone: [facility] Work Phone: 10-20-2021 20:20-0400 Body mass index (BMI) [Ratio] 28.6 kg/m2 Dr. Nicolas Kaur Work Phone: [facility] Work Phone: 10-20-2021 20:20-0400 Body weight 87.[address] Nicolas Kaur Work Phone: [facility] Work Phone: 09-29-2021 16:45-0400 Body height 165.7 cm Nicolas Kaur MD Work Phone: [facility] 09-29-2021 16:45-0400 Body temperature 97.3 [degF] Nicolas Kaur MD Work Phone: [facility] 09-29-2021 16:45-0400 Body weight 87.09 kg Nicolas Kaur MD Work Phone: [facility] 09-29-2021 16:45-0400 Diastolic blood pressure 76 mm[Hg] Nicolas Kaur MD Work Phone: [facility] 09-29-2021 16:45-0400 Heart rate 60 /min Nicolas Kaur MD Work Phone: [facility] 09-29-2021 16:45-0400 Respiratory rate 16 /min Nicolas Kaur MD Work Phone: [facility] 09-29-2021 16:45-0400 Systolic blood pressure 130 mm[Hg] Nicolas Kaur MD Work Phone: [facility] Encounters Encounter Date Encounter Type Care Provider Facility Start: 08-22-2024 ambulatory David GARCIA Fa cility:[facility] Start: 08-22-2024 Registered Referred David Miramontes MD -[facility] Start: 08-21-2024 End: 08-21-[address] David Miramontes MD Work Phone: -[facility] Start: 08-21-2024 End: 08-21-[address] Edson Quinn MD -[facility] Work Phone: Start: 08-02-2024 ambulatory David GARCIA Fa cility:[facility] Start: 08-02-2024 [facility] Start: 08-01-2024 ambulatory David Miramontes OLS Fa cility:[facility] Start: 08-01-2024 [facility]: 07-21-2024 ambulatory David Miramontes OLS Fa cility:[facility] Start: 07-21-2024 [facility] Start: 07-17-2024 End: 07-17-2024 Follow-up encounter Diana Don Postlethwait LUBE WORKER.MACHINE OPERATOR HELPER Work Phone: [facility] Comment on above: Results Start: 07-14-2024 End: 07-14-2024 Office outpatient new 30 minutes [facility].MACHINE OPERATOR HELPER Work Phone: [facility] Comment on above: Gross hematuria (Lise wallace Dx) Start: 07-14-2024 End: 07-14-2024 [facility] Start: 06-23-2024 End: 06-23-[address] David Miramontes MD Work Phone: [facility] Work Phone: Start: 06-23-2024 End: 06-23-2024 Departed Referred David Pickett Start: 06-23-2024 End: 06-23-2024 ambulatory David GARCIA Facility:[facility] Start: 06-05-2024 End: 06-05-[address] David Miramontes MD Work Phone: [facility] Work Phone: Start: 06-05-2024 End: 06-05-2024 Departed Referred David Pickett Start: 06-05-2024 Registered Referred David AdamKrystle Pickett Start: 06-05-2024 End: 06-05-2024 ambulatory David GARCIA Facility:[facility] Start: 05-30-2024 ambulatory David GARCIA Fa cility:[facility] Start: 05-30-2024 Non-patient / Non-visit Dr. Josiah Klein MD -[facility] Start: 05-30-2024 End: 05-30-[address] David Miramontes MD -[facility] Work Phone: Start: 05-30-2024 End: 05-30-2024 ambulatory Efewongbe Oleghe Facility:[facility] Start: 05-30-2024 End: 05-30-2024 Patient encounter procedure Marimar VASQUES [facility] Work Phone: Start: 05-30-2024 End: 05-30-[address] David Miramontes MD Work Phone: [facility] Work Phone: Start: 05-30-2024 End: 05-30-2024 Departed Referred David Pickett Start: 05-30-2024 Registered Referred David Pickett Start: 05-30-2024 End: 05-30-2024 ambulatory [facility] Facility:[facility] Start: 05-23-2024 End: 05-23-2024 [facility] Start: 05-23-2024 End: 05-23-[address] David Miramontes MD -[facility] Work Phone: Start: 05-22-2024 End: 05-22-[address] David Miramontes MD Work Phone: [facility] Work Phone: Start: 05-22-2024 End: 05-22-2024 Departed Referred David Pickett Start: 05-22-2024 Registered Referred David Pickett Start: 05-22-2024 End: 05-22-[address] Edson Quinn MD -[facility] Work Phone: Start: 05-22-2024 End: 05-22-2024 [facility] Start: 05-18-2024 End: 05-18-2024 [facility] Start: 05-18-2024 End: 05-18-2024 Patient encounter procedure Marimar VASQUES [facility] Work Phone: Start: 05-13-2024 End: 05-13-2024 ambulatory Efewongbe Oleghe Facility:[facility] Start: 05-13-2024 End: 05-13-[address] Edson Quinn MD -[facility] Work Phone: Start: 05-11-2024 End: 05-11-2024 ambulatory Marimar Zimmer HAND CUTTER Facility:[facility] Start: 05-11-2024 End: 05-11-2024 Patient encounter procedure Marimar Zimmer HAND CUTTER-C -[facility] Work Phone: Start: 05-01-2024 End: 05-01-2024 ambulatory Efewongbe Oleamnae Facility:[facility] Start: 05-01-2024 End: 05-01-2024 Patient encounter procedure Marimar Zimmer HAND CUTTER-C -[facility] Work Phone: Start: 04-19-2024 End: 04-19-2024 ambulatory Efewongbe Oleghe Facility:[facility] Start: 04-19-2024 End: 04-19-2024 Patient encounter procedure Marimar Zimmer HAND CUTTER-C -[facility] Work Phone: Start: 04-17-2024 ambulatory Efdanay Miramontes OLS Fa cility:[facility] Start: 04-17-2024 [facility] Start: 04-13-2024 ambulatory Efewcarleen Miramontes OLS Fa cility:[facility] Start: 04-13-2024 [facility] Start: 04-11-2024 End: 04-11-2024 ambulatory Efewongbe Oleghe Facility:[facility] Start: 04-11-2024 End: 04-11-[address] [facility] Start: 04-07-2024 ambulatory Efewcarleen GARCIA Fa cility:[facility] Start: 04-07-[address] David calzada MD -[facility] Start: 04-04-2024 ambulatory Efewongbe Oleghe OLS Fa cility:[facility] Start: 04-04-2024 [facility] Start: 03-13-2024 End: 03-13-2024 ambulatory Efewongbe Oleghe Facility:[facility] Start: 03-13-2024 End: 03-13-2024 Patient encounter procedure Marimar VASQUES -[facility] Work Phone: Start: 03-02-2024 End: 03-02-2024 ambulatory Efewongbe Oleghe Facility:[facility] Start: 03-02-2024 End: 03-02-2024 Patient encounter procedure Isidro HOOD -[facility] Work Phone: Start: 02-15-2024 End: 02-15-2024 ambulatory Efewongbe Oleghe Facility:[facility] Start: 02-15-2024 End: 02-15-[address] David Miramontes MD -[facility] Work Phone: Start: 02-14-2024 End: 02-14-2024 ambulatory Efewongbe Oleghe Facility:[facility] Start: 02-14-2024 End: 02-14-[address] Edson Quinn MD -[facility] Work Phone: Start: 02-03-2024 ambulatory Efewongbe Oleghe OLS Fa cility:[facility] Start: 01-12-2024 End: 01-12-2024 ambulatory Efewongbe Oleghe Facility:[facility] Start: 01-04-2024 ambulatory Efewongbe Oleghe OLS Fa cility:[facility] Start: 12-28-2023 End: 12-28-2023 ambulatory Efewongbe Oleghe Facility:[facility] Start: 12-07-2023 End: 12-07-2023 ambulatory Efewongbe Oleghe Facility:[facility] Start: 11-15-2023 End: 11-15-2023 ambulatory Efewongbe Oleghe Facility:[facility] Start: 11-08-2023 End: 11-08-2023 ambulatory Efewongbe Oleghe Facility:[facility] Start: 10-27-2023 End: 10-27-2023 ambulatory Efewongbe Oleghe Facility:[facility] Start: 10-05-2023 End: 10-05-2023 ambulatory Efewongbe Oleghe Facility:[facility] Start: 10-05-2023 End: 10-05-2023 ambulatory Efewongbe Oleamnae OLS Facility:[facility] Start: 09-27-2023 End: 09-27-2023 ambulatory Efewongbe Oleghe Facility:[facility] Start: 09-27-2023 End: 09-27-2023 ambulatory Efewongbe Oleamnae OLS Facility:[facility] Start: 09-06-2023 End: 09-06-2023 ambulatory Kyung Wright Facility:[facility] Start: 04-06-2023 End: 04-06-[address] Nicolas Kaur Work Phone: [facility] Work Phone: Start: 04-06-2023 End: 04-06-[address] Nicolas Kaur Work Phone: [facility] Start: 02-02-2023 End: 02-02-[address] Nicolas Kaur Work Phone: [facility] Work Phone: Start: 01-15-2023 End: 01-15-[address] Nicolas Kaur Work Phone: [facility] Work Phone: Start: 12-30-2022 End: 12-30-[address] Nicolas Kaur Work Phone: [facility] Work Phone: Start: 12-30-2022 End: 12-30-[address] Nicolas Kaur Work Phone: [facility] Start: 11-23-2022 End: 11-23-[address] Nicolas Kaur Work Phone: [facility] Work Phone: Start: 11-17-2022 End: 11-17-[address] Nicolas Kaur Work Phone: [facility] Work Phone: Start: 10-06-2022 End: 10-06-[address] Nicolas Kaur Work Phone: [facility] Work Phone: Start: 09-29-2022 End: 09-29-[address] Nicolas Kaur Work Phone: [facility] Start: 09-23-2022 End: 09-23-[address] Nicolas Kaur Work Phone: [facility] Work Phone: Start: 06-29-2022 End: 06-29-[address] Nicolas Kaur Work Phone: [facility] Work Phone: Start: 06-29-2022 End: 06-29-[address] Nicolas Kaur Work Phone: [facility] Start: 06-23-2022 End: 06-23-[address] Nicolas Kaur Work Phone: [facility] Start: 06-05-2022 ambulatory Yoli johnson [place] Comment on above: Population Health Na vigation Outreach ([facility] Gaps) Start: 05-18-2022 End: 05-18-[address] Nicolas Kaur Work Phone: [phone] [place] [address] Assisted Living Start: 04-14-2022 End: 04-14-[address] Nicolas Kaur Work Phone: [facility] Start: 04-01-2022 End: 04-01-[address] Nicolas Kaur Work Phone: [facility] Work Phone: Start: 04-01-2022 End: 04-01-[address] Nicolas Kaur Work Phone: [facility] Start: 03-16-2022 End: 03-16-[address] Nicolas Kaur Work Phone: [facility] Start: 02-24-2022 End: 02-24-[address] Nicolas Kaur Work Phone: [facility] Start: 01-07-2022 End: 01-07-[address] Nicolas Karu Work Phone: [facility] Start: 01-05-2022 End: 01-05-[address] Nicolas Kaur Work Phone: [facility] Start: 12-24-2021 End: 12-24-[address] Nicolas Kaur Work Phone: [facility] Work Phone: Start: 12-24-2021 End: 12-24-[address] Nicolas Kaur Work Phone: [facility] Start: 12-24-[address] Nicolas Kaur Work Phone: [facility] Start: 12-15-2021 End: 12-15-[address] Nicolas Kaur Work Phone: [facility] Start: 12-10-2021 End: 12-10-[address] Nicolas Kaur Work Phone: [facility] Work Phone: Start: 12-10-2021 End: 12-10-[address] Nicolas Kaur Work Phone: [facility] Start: 12-10-[address] Nicolas Kaur Work Phone: [facility] Start: 12-09-2021 Telephone encounter Nicolas gutierrez MD Work Phone: [facility] Comment on above: form dropping off Start: 11-26-2021 End: 11-26-[address] Nicolas Kaur Work Phone: [facility] Work Phone: Start: 11-26-2021 End: 11-26-[address] Nicolas Kaur Work Phone: [facility] Start: 11-12-[address] Nicolas Kaur Work Phone: [facility] Start: 10-29-[address] Nicolas Kaur Work Phone: [facility] Start: 10-23-2021 Telephone encounter Nicolas gutierrez MD Work Phone: [facility] Comment on above: Patient Update Start: 10-22-2021 Non-patient / Non-visit Dr. Nicolas Kaur Work Phone: [facility] Start: 10-21-2021 Non-patient / Non-visit Dr. Nicolas Kaur Work Phone: [facility] Start: 10-20-2021 Non-patient / Non-visit Dr. Nicolas Kaur Work Phone: [facility] Start: 10-20-2021 End: 10-22-2021 Evaluation and management of inpatient Dr. Nicolas Kaur Work Phone: [facility] Start: 10-20-2021 End: 10-22-[address] 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 [...] CT of head without contrast Dr. Nicolas Kaur Work Phone: Start: 10-21-2021 CT angiography of he ad and neck Dr. Nicolas Kaur Work Phone: Start: 10-20-2021 Plain chest X-ray Dr. Christine Kaur Work Phone: Start: 10-20-2021 CT of head without contrast Dr. Nicolas Kaur Work Phone: Start: 09-29-2021 Allegorithmic COVI D-19 VACCINE, AGE 12+ YR (LANGE TOP) Nicolas Kaur MD Work Phone: Urine culture Dr. Nicolas Farley Work Phone: Viral antigen assay Dr. Filiberto Kaur Work Phone: Plan of Treatment Date Care Activity Detail Author Start: 10-30-2024 Influenza vaccination Influenz a Vaccine (Season Ended) [facility] Start: 04-22-2024 DIABETES SCREEN [facility] Start: 04-22-2024 Diabetes Screening Diabetes Screenin g [facility] Start: 03-01-2024 Advance Directive Discussion Advance Directive Discussion [facility] Start: 10-31-2023 Covid-19 Vaccine ( season) Covid-19 Vaccine ( season) [facility] Start: 10-30-2022 Influenza vaccination INFLUENZ A (Season Ended) [facility] Start: 05-12-2022 SHINGRIX VACCINE (2 of 3) DUMAS GRIX VACCINE (2 of 3) [facility] Comment on above: Postponed from 07/18 (Declined at this time) Start: 03-01-2022 ADVANCE DIRECTIVE DISCUSSION ADVANCE DIRECTIVE DISCUSSION [facility] Start: 11-24-2021 COVID-19 VACCINE (5 - Booster for Pfizer series) COVID-19 VACCINE (5 - Booster for Pfizer series) [facility] Start: 10-30-2021 Influenza vaccination INFLUENZA (#1) [facility] Start: 10-22-2021 Patient discharge [facility] Work Phone: Start: 10-21-2021 Following clinical p athway protocol [facility] Work Phone: Start: 10-21-2021 Assessment of risk o f venous thromboembolism [facility] Work Phone: Start: 10-21-2021 Insertion of cathete r into peripheral vein [facility] Work Phone: Start: 10-21-2021 Oxygen therapy [facility] Work Phone: Start: 10-21-2021 Providing care accor ding to standard [facility] Work Phone: Start: 10-21-2021 Provision of activit y privileges [facility] Work Phone: Start: 10-21-2021 Referral to occupati onal therapist [facility] Work Phone: Start: 10-21-2021 Referral to service [facility] Work Phone: Start: 10-21-2021 [facility] Work Phone: Start: 10-21-2021 Verification routine [facility] Work Phone: Start: 10-21-2021 CT angiography of he ad and neck CTA Head AND Neck W/ Contrast [facility] Work Phone: Start: 10-21-2021 CTA Head vessels and Neck vessels W contrast IV [facility] Work Phone: Start: 10-20-2021 [facility] Work Phone: Start: 10-20-2021 Admission procedure [facility] Work Phone: Start: 09-11-2021 COVID-19 VACCINE (4 - Booster for Pfizer series) COVID-19 VACCINE (4 - Booster for Pfizer series) [facility] Start: 08-23-2021 Urine microalbumin profile [facility] Comment on above: Postponed from 07/15 (Declined at this time) Start: 2014 RSV Vaccine (1 - 1-d ose 75+ series) RSV Vaccine (1 - 1-dose 75+ series) [facility] Start: 07-18-2013 SHINGRIX VACCINE (2 of 3) DUMAS GRIX VACCINE (2 of 3) [facility] Start: 07-15-2010 Urine microalbumin profile [facility] CYTOLOGY NON-STONE GLUER CYTOLOGY NON-GY N Lab Routine Gross hematuria Ordered: 07/14/2024 [facility] Work Phone: Comment on above: Ordered: 07/14/2024 Patient Education ED Fall with Uncertain Cause [facility] Work Phone: Patient referral [facility] Work Phone: [facility] Immunizations Immunization Date Immunization Notes Care Provider Fa cility 09-29-2021 COVID-19 vaccine, ag e 12+ yr (PFIZER-[employer] - [facility]) Nicolas Kaur MD Work Phone: [facility] Work Phone: 05-12-2021 COVID-19 vaccine, ag e 12+ yr (PFIZER-BIONTECH - LANGE TOP) Nicolas Kaur MD Work Phone: [facility] 03-31-2021 influenza, high-dose , quadrivalent vaccine (FLUZONE HIGH DOSE QUADRIVALENT) Nicolas Kaur MD Work Phone: [facility] Work Phone: 03-31-2021 influenza virus vaccine, unspecified formulation Diana Arango LUBE WORKER.MACHINE OPERATOR HELPER Work Phone: [facility] 06-17-2020 COVID-19 vaccine, ag e 12+ yr (PFIZER-BIONTECH - PURPLE TOP) Nicolas Kaur MD Work Phone: [facility] Work Phone: 05-27-2020 COVID-19 vaccine, ag e 12+ yr (PFIZER-BIONTECH - PURPLE TOP) Nicolas Kaur MD Work Phone: [facility] Work Phone: 04-22-2020 influenza, high-dose , quadrivalent vaccine (FLUZONE HIGH DOSE QUADRIVALENT) Nicolas Kaur MD Work Phone: [facility] Work Phone: 01-19-2019 influenza, high dose seasonal, preservative-free Nicolas Kaur MD Work Phone: [facility] 02-03-2018 influenza, high dose seasonal, preservative-free Nicolas Kaur MD Work Phone: [facility] 01-18-2017 influenza, high dose seasonal, preservative-free Nicolas Kaur MD Work Phone: [facility] 12-27-2015 influenza, high dose seasonal, preservative-free Nicolas Kaur MD Work Phone: [facility] 12-26-2014 influenza, high dose seasonal, preservative-free Nicolas Kaur MD Work Phone: [facility] 06-26-2014 pneumococcal conjuga te vaccine, 13 valent Nicolas Kaur MD Work Phone: [facility] 12-28-2013 influenza, seasonal, injectable Nicolas Kaur MD Work Phone: [facility] 05-23-2013 zoster vaccine, live Nicolas Kaur MD Work Phone: [facility] 07-14-2010 tetanus and diphther ia toxoids, adsorbed, preservative free, for adult use (2 Lf of tetanus toxoid and 2 Lf of diphtheria toxoid) Nicolas Kaur MD Work Phone: [facility] Work Phone: 01-13-2006 pneumococcal polysaccharide vaccine, 23 valent Nicolas Kaur MD Work Phone: [facility] Payers Date Payer Category Payer Self-pay [id number] 2013 Private Health Insurance [facility] AARP SUPPLEMENT [id number] 2013-Present [phone] [address] [place] [address] Indemnity [id number] 2013 Private Health Insurance [id number] 2013 Unknown [id number] 2004 Medicare MEDICARE MEDICAR E A AND B [id number] 2004-Present [phone] [address] [address] [place] [address] Medicare [id number] 2004 Medicare [id number] 2004 Medicare [id number] Private Health Insurance [facility] [id number] Unknown [id number] 2.16.840.1.482632.3.579.2 .462 Unknown [id number] 2.16.840.1.580936.3.579.2 .462 Unknown [id number] 2.16.840.1.852025.3.579.2 .462 Unknown [id number] 2.16.840.1.497427.3.579.2 .462 Unknown [id number] 2.16.840.1.933416.3.579.2 .462 Unknown [id number] 2.16.840.1.187424.3.579.2 .462 Unknown [id number] 2.16.840.1.874525.3.579.2 .462 Unknown [id number] 2.16.840.1.874201.3.579.2 .462 Unknown [id number] 2.16.840.1.757544.3.579.2 .462 Unknown [id number] 2.16.840.1.192620.3.579.2 .462 Unknown [id number] 2.16.840.1.059306.3.579.2 .462 Unknown [id number] 2.16.840.1.975500.3.579.2 .462 Unknown [id number] 2.16.840.1.729506.3.579.2 .462 Unknown [id number] 2.16.840.1.091162.3.579.2 .462 Unknown [id number] 2.16.840.1.698085.3.579.2 .462 Unknown [id number] 2.16.840.1.404518.3.579.2 .462 Unknown [id number] 2.16.840.1.853935.3.579.2 .462 Unknown [id number] 2.16.840.1.378727.3.579.2 .462 Unknown [id number] 2.16.840.1.488378.3.579.2 .462 Unknown [id number] 2.16.840.1.073572.3.579.2 .462 Unknown [id number] 2.16.840.1.400644.3.579.2 .462 Unknown [id number] 2.16.840.1.686246.3.579.2 .462 Unknown [id number] 2.16.840.1.919400.3.579.2 .462 Unknown [id number] 2.16.840.1.187597.3.579.2 .462 Unknown [id number] 2.16.840.1.403391.3.579.2 .462 Unknown [id number] 2.16.840.1.005846.3.579.2 .462 Unknown [id number] 2.16.840.1.432861.3.579.2 .462 Unknown [id number] 2.16.840.1.966034.3.579.2 .462 Unknown [id number] 2.16.840.1.304417.3.579.2 .462 Unknown [id number] 2.16.840.1.263136.3.579.2 .462 Unknown [id number] 2.16.840.1.340961.3.579.2 .462 Unknown [id number] 2.16.840.1.010646.3.579.2 .462 Unknown [id number] 2.16.840.1.209935.3.579.2 .462 Unknown [id number] 2.16.840.1.509530.3.579.2 .462 Unknown [id number] 2.16.840.1.388137.3.579.2 .462 Unknown [id number] 2.16.840.1.858555.3.579.2 .462 Unknown [id number] 2.16.840.1.182449.3.579.2 .462 Unknown [id number] 2.16.840.1.319728.3.579.2 .462 Unknown [id number] 2.16.840.1.718033.3.579.2 .462 Unknown [id number] 2.16.840.1.065293.3.579.2 .462 Unknown [id number] 2.16.840.1.792245.3.579.2 .462 Unknown [id number] 2.16.840.1.785503.3.579.2 .462 Unknown [id number] 2.16.840.1.036176.3.579.2 .462 Unknown [id number] 2.16.840.1.153067.3.579.2 .462 Unknown [id number] 2.16840.1.989933.3.579.2 .462 Social History Date Type Detail Facility Start: 04-22-2012 End: 01-06-2024 Tobacco smoking status NHIS Ex-smoker [facility] Start: 03-01-1949 End: 03-01-1959 History of tobacco use Current smoker [facility] Start: 03-01-1949 End: 03-01-1959 History of tobacco use Cigarette Smoker [facility] Start: 05-12-2021 End: 07-14-2024 Alcohol intake Current non-drinker of alcohol (finding) [facility] Start: 1940 Sex Assigned At Not on file [facility] Start: 09-19-2021 End: 09-29-2021 Exposure to SARS-CoV-2 (event) Not sure [facility] Work Phone: Start: 10-21-2021 End: 12-02-2022 Tobacco smoking status PRIS Unknown if ever smoked [facility] Start: 1940 Sex Assigned At Male W [facility] Start: 04-22-2012 End: 07-14-2024 Cigarettes smoked current (pack per day) - Reported 1 [facility] Start: 04-22-2012 Tobacco use and exposure Smokeless tobacco non-user [facility] Work Phone: Start: 06-05-2024 End: 06-21-2024 Sex Male (finding) [facility] Start: 02-03-2018 End: 07-14-2024 Tobacco use panel [facility] Adult Depression Screening Assessment 0 [facility] Goals Date Patient Goal Desired Activity /State Functional Status Date Assessment Result Facility 10-22-2021 Functional status Bedrest [facility] Work Phone: 06-26-2014 Are you deaf, or do you have serious difficulty hearing No 06/26/2014 10:08 AM Anjelica Esparza Cma [facility] 06-26-2014 Are you blind, or do you have serious difficulty seeing, even when wearing glasses No 06/26/2014 10:08 AM EDT Anjelica Perez Cma [facility] 06-26-2014 Do you have serious difficulty walking or climbing stairs No 06/26/2014 10:08 AM Anjelica Esparza Cma [facility] 06-26-2014 Do you have difficul ty dressing or bathing No 06/26/2014 10:08 AM Anjelica Esparza Cma [facility] 06-26-2014 Because of a physica l, mental, or emotional condition, do you have difficulty doing errands alone such as visiting a physician's office or shopping No 06/26/2014 10:08 AM EDAnjelica Moore Cma [facility] Mental Status Date Assessment Result Facility 10-22-2021 Cognitive function Voice/Name [facility] Work Phone: 10-20-2021 Cognitive function Appropriate;Cony starks [facility] Work Phone: 06-26-2014 Because of a physica l, mental, or emotional condition, do you have serious difficulty concentrating, remembering, or making decisions No 06/26/2014 10:08 AM EDAnjelica Moore Cma [facility] Clinical Notes 09-16-2018 to 07-17-2024 Telephone Encounter [...] has no further questions. Stefany Mcclure RN [facility] Work Phone: 07-17-2024 Miscellaneous Notes Spoke with patient's son and notified of information as per provider. He states that they are going to hold off on having tests listed below,. He will let us know if he needs anything or wants test done in the future. Verbalized understanding and has no further questions. Stefany Mcclure RN ----- Message from Diana Arango APRN.CNP sent at 07/17/2024 11:12 AM EDT ----- Please notify patient/patient's son that patient's cytology came back negative for high-grade urothelial carcinoma. This is great news! Given his mentation and mobility -- we could hold off on CT/cysto if he wishes. documented in this encounter [facility] 07-17-2024 Telephone encounter Note ----- Message from Diana Arango APRN.CNP sent at 07/17/2024 11:12 AM EDT ----- Please notify patient/patient's son that patient's cytology came back negative for high-grade urothelial carcinoma. This is great news! Given his mentation and mobility -- we could hold off on CT/cysto if he wishes. [facility] 07-14-2024 History of Present illness Narrative Images from the original note were not included. [facility] [place] [facility] NEW PATIENT UROLOGY VISIT 07/14/2024 8:51 AM [...] Date , Taking? , Authorizing Provider Nicolas Kaur MD Medication terazosin (HYTRIN) 5 mg capsule, Sig Take 1 capsule by mouth daily at bedtime., Start Date 03/31/21, End Date , Taking? , Authorizing Provider Nicolas Kaur MD Medication omeprazole (PRILOSEC) 20 mg capsule, Sig Take 1 capsule by mouth once daily., Start Date 03/31/21, End Date , Taking? , Authorizing Provider Nicolas Kaur MD Medication CPAP, Sig , Start Date , End Date , Taking? , Authorizing Provider Provider, [facility] Medication furosemide (LASIX) 40 mg tablet, Sig Take 1 tablet by mouth once daily., Start Date 05/26/19, End Date , Taking? , Authorizing Provider Nicolas Kaur MD Medication ELIQUIS 5 mg tab(s), Sig [...] Yes Vitals: Ht (P) 165.1 cm (5' 5) Wt (P) 87.1 kg (192 lb) BMI [...] (no units) Date Value 08/12/2018 Negative Specific [place], Ur (no units) Date Value 08/12/2018 1.018 [...] intervention based on that result. - CYTOLOGY NON-STONE GLUER - Call son with results. Will make treatment plan decision from there. Follow-up as needed. Diana Arango APRN.CNP documented in this encounter [facility] 07-14-2024 Note HNO ID: [id number] Author: DIANA ARANGO APRN.CNP Service: ? Author Type: Nurse Practitioner Type: Progress Notes Filed: 07/14/2024 09:11 Note Text: [facility] [place] UROL [facility] NEW PATIENT UROLOGY VISIT 07/14/2024 8:51 AM [...] Date , Taking? , Authorizing Provider Nicolas Kaur MD Medication terazosin (HYTRIN) 5 mg capsule, Sig Take 1 capsule by mouth daily at bedtime., Start Date 03/31/21, End Date , Taking? , Authorizing Provider Nicolas Kaur MD Medication omeprazole (PRILOSEC) 20 mg capsule, Sig Take 1 capsule by mouth once daily., Start Date 03/31/21, End Date , Taking? , Authorizing Provider Nicolas Kaur MD Medication CPAP, Sig , Start Date , End Date , Taking? , Authorizing Provider Provider, [facility] Medication furosemide (LASIX) 40 mg tablet, Sig Take 1 tablet by mouth once daily., Start Date 05/26/19, End Date , Taking? , Authorizing Provider Nicolas Kaur MD Medication ELIQUIS 5 mg tab(s), Sig [...] Yes Vitals: Ht (P) 165.1 cm (5' 5) Wt (P) 87.1 kg (192 lb) BMI (P) 31.95 kg/m? Physical Exam Vitals reviewed. Musculoskeletal: Comments: In wheelchair Skin: General: Skin is warm and dry. Neurological: Mental Status: He is alert. Mental status is at baseline. Psychiatric: (more content not included)... [facility] 06-05-2022 Note HNO ID: [id number] Author: Yoli Kong Service: ? Author Type: ? Type: Progress Notes Filed: 06/05/2022 2:00 PM Note Text: POPULATION HEALTH NAVIGATION OUTREACH Action/ 1st attempt: Spoke to patient's daughter. Patient now resides at [facility] and receives medical care there. Patient Identified [...] DISCUSSION due on 03/01/2022 Navigation Signature: Yoli Kong June 05, 2022 1:58 PM [facility] 06-05-2022 Note Patient Outreach (JEAN CLAUDE ABDI) ---- KEL DILLARD ([id number]) 1940 M Date Time Provider Department 06/05/22 YOLI KONG During your visit today, we recorded the following information about you: Yoli Kong 06/05/2022 2:00 PM Signed POPULATION HEALTH NAVIGATION OUTREACH Action/ attempt: Spoke to patient's daughter. Patient now resides at [facility] and receives medical care there. Patient Identified [...] DISCUSSION due on 03/01/2022 Navigation Signature: Yoli Kong June 05, 2022 1:58 PM Allergies As [...] behavioral disturbance *09/29/2021 Encounter Status:Closed by YOLI KONG on 06/05/22 [facility] 06-05-2022 History of Present illness Narrative POPULATION HEALTH NAVIGATION OUTREACH Action/ 1st attempt: Spoke to patient's daughter. Patient now resides at [facility] and receives medical care there. Patient Identified [...] DISCUSSION due on 03/01/2022 Navigation Signature: Yoli oKng June 05, 2022 1:58 PM documented in this encounter [facility] 12-11-2021 Miscellaneous Notes Forms pts son brought in have been sent to medical records. Pts son notified. He can pick them up there. Son (Jhonny) calls in and provider message reviewed. Son asking if form brought in can be picked back up in Medical Records. Please contact Jhonny at [phone]. Preethi Delgadillo RN I have not seen him since hospital stay and he is now under the [place] attending physician's care. It is more appropriate for the [place] attending physician to do another form. More statements need corrected/updated Form to pcp to review. Patient son Jhonny calling said PCP completed expert evaluation form on 09/29 for guardianship and cement cutter said question number 11 needs revised. Son Jhonny said 2 weeks after form was done father had fall and was taken to [facility] then sent to [facility] for rehab. Now father is in memory care unit, his dementia is at 6 out of 7. Son is going to drop off new form to be competed, since father can not care for himself or do anything for himself. Please advise documented in this encounter [facility] 10-23-2021 Miscellaneous Notes Per [facility] discharge info pt was discharged to [facility] 10/22/21. documented in this encounter [facility] 09-29-2021 Note HNO ID: [id number] Author: Nicolas Kaur MD Service: ? Author Type: Physician Type: Progress Notes Filed: 09/29/2021 6:08 PM Note Text: This note was created using BigStringter. Subjective Kel Dillard is a 81 year old male. He was here with his son. He was home bound due to memory loss and cognitive deficits. He gets lost if he wandered outside. Son was here with form requesting guardianship. This was part of POA he was establishing. They were exploring prison placement in anticipation of need, but Kel [...] Artery) Resp 16 Ht 165.7 cm (5' 5.25) Wt 87.1 kg (192 lb) BMI 31.71 kg/m? Physical Exam Cardiovascular: Rate and Rhythm: Normal rate and regular rhythm. Pulmonary: Effort: Pulmonary effort is normal. Musculoskeletal: Right lower leg: No edema. Left lower leg: No edema. Neurological: General: No focal deficit present. Mental Status: He is alert. He is disoriented. Motor: Tremor present. Comments: Oriented to person and place. Month January. Season Winter some snow outside. [facility] 06/26/2014 12/12/2018 09/29/2021 ORIENTATION 5 [...] vaccine - ICD9: V04.89, ICD10: Z23 - [employer] COVID-19 VACCINE, AGE 12+ YR (LANGE TOP) 6. 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 Form completed. Patient and son indicated understanding and willingness to follow recommendations. Nicolas Kaur MD [facility] 09-29-2021 Note HNO ID: [id number] Author: Nicolas Kaur MD Service: ? Author Type: Physician Type: [...] current specialists seen: Pulmonary- Dr. Valle Cardiology- [facility] Textile Machine Operator- Barb End of Live Planning discussed including [...] Artery) Resp 16 Ht 165.7 cm (5' 5.25) Wt 87.1 kg (192 lb) BMI 31.71 kg/m? Alert and oriented X 3: NO. Body mass index is 31.71 kg/m?. Visual acuity: see vision tab. ASSESSMENT/PLAN: 81 year old male The following prevention plan was discussed during the office visit and provided to the patient: - Fall avoidance - Vaccines recommended COVID-19 and Tdap at pharmacy Nicolas Kaur MD [facility] 09-29-2021 History of Present illness Narrative This note was created using NoteWriter. Subjective Kel Dillard is a 81 year old male. He was here with his son. He was home bound due to memory loss and cognitive deficits. He gets lost if he wandered outside. Son was here with form requesting guardianship. This was part of POA he was establishing. They were exploring prison placement in anticipation of need, but Kel [...] Artery) Resp 16 Ht 165.7 cm (5' 5.25) Wt 87.1 kg (192 lb) BMI 31.71 kg/m Physical Exam Cardiovascular: Rate and Rhythm: Normal rate and regular rhythm. Pulmonary: Effort: Pulmonary effort is normal. Musculoskeletal: Right lower leg: No edema. Left lower leg: No edema. Neurological: General: No focal deficit present. Mental Status: He is alert. He is disoriented. Motor: Tremor present. Comments: Oriented to person and place. Month January. Season Winter some snow outside. [facility] 06/26/2014 12/12/2018 09/29/2021 ORIENTATION 5 [...] vaccine - ICD9: V04.89, ICD10: Z23 - [employer] COVID-19 VACCINE, AGE 12+ YR (LANGE TOP) 6. 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 Form completed. Patient and son indicated understanding and willingness to follow recommendations. Nicolas Kaur MD Medicare Yearly Visit Medical B eligibilty [...] current specialists seen: Pulmonary- Dr. Valle Cardiology- [facility] Textile Machine Operator- Barb End of Live Planning discussed including [...] Artery) Resp 16 Ht 165.7 cm (5' 5.25) Wt 87.1 kg (192 lb) BMI 31.71 kg/m Alert and oriented X 3: NO. Body mass index is 31.71 kg/m . Visual acuity: see vision tab. ASSESSMENT/PLAN: 81 year old male The following prevention plan was discussed during the office visit and provided to the patient: - Fall avoidance - Vaccines recommended COVID-19 and Tdap at pharmacy Nicolas Kaur MD documented in this encounter [facility] 07-15-2021 Miscellaneous Notes Yesenia, Admissions staff member at [facility] calling to state patient's son Jhonny has reached out to them to request patient possibly be admitted into their memory care unit due to cognition concerns. Yesenia is requesting notes from patient's last OV be faxed to them at [phone]. This nurse contacted son Jhonny to verify the request and he confirmed it was ok to share requested information. Information faxed as requested. Karen Matias RN documented in this encounter [facility] 09-16-2018 History of Past i llness Narrative [...] of this encounter (statuses as of 07/15/2021) [facility] History of Past illness Narrative* Problem Noted [...] of this encounter (statuses as of 09/29/2021) [facility] History of Past illness Narrative* Problem Noted [...] of this encounter (statuses as of 10/23/2021) [facility] History of Past illness Narrative* Problem Noted [...] of this encounter (statuses as of 12/11/2021) [facility] History of Past illness Narrative* Problem Noted [...] of this encounter (statuses as of 06/05/2022) [facility] Diagnosis Medicare annual wellness visit, subsequent- Primary Routine general medical examination at a health care facility Cognitive impairment Unspecified persistent mental disorders due to conditions classified elsewhere Essential tremor Essential and other specified forms of tremor Essential hypertension, benign Need for COVID-19 vaccine 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) [facility] Diagnosis Onset Date Resolution Status Adult failure to thrive acut e Chronic anticoagulation acut e Fall acute History of atrial fibrillation acute [facility] Work Phone: Evaluation noteNo assessment information available [facility] Work Phone: Evaluation note* Diagnosis Gross hematuria- Primary [facility] in this encounter [facility] (narrative)No reason for referral information [facility] Work Phone: Advance Directives No Advanced Directives Records FoundDocuments on File Type Date Recorded Patient Seo Specialist Expl anation Advance Directive(s) 04/29/2021 2:28 PM Advance Directive(s) 09/08/2016 1:42 PM Advance Directive(s) 08/31/2016 10:18 AM Advance Directive(s) 04/09/2016 12:30 PM Advance Directive(s) 04/06/2016 10:07 AM Advance Directive(s) 10/09/2011 11:10 AM Advance Directive Response Recorded Date/ Time Advance Directives No October 10:42am Living Will No October 20 8:26pm Power of [employer] Aide No October 20 8:26pm Advance Directive Response Recorded Date/ Time Advance Directives No October 10:42am Living Will No October 21 1:16am Power of [employer] Aide No October 21 1:16am Documents on File Type Date Recorded Patient Seo Specialist Expl anation Advance Directive(s) 04/29/2021 2:28 PM Advance Directive(s) 10/09/2011 11:10 AM Advance Directive Response Recorded Date/ Time Advance Directives No April 02, 2022 2:41pm Living Will No April 02 2:41pm Power of [employer] Aide No April 02, 2022 2:41pm Advance Directive Response Recorded Date/ Time Advance Directives No April 02, 2022 3:41pm Living Will No April 02 3:41pm Power of [employer] Aide No April 02, 2022 3:41pm Advance Directive Response Recorded Date/ Time Advance Directives No December 02, 2022 9:40am Living Will No December 02 9:40am Power of [employer] Aide No December 02 023 9:40am Advance Directive [...] 00am LABWORK June 23, 2024 5:0 0am Chief Complaint Admit Date MONTHLY EXAM May 01, 2024 4:59 pm NEW CONCERN May 11, 2024 2:3 7pm Pacer Check Remote May 13, 2024 4:5 1pm NEW ADMISSION May 18, 2024 1:3 0pm Pacer Check Remote May 22, 2024 12: 21am LABWORK May 22, 2024 5:0 0am ADMISSION EXAM May 23, 2024 2:4 8pm LABWORK May 30, 2024 5:00 am NEW CONCERN May 30, 2024 6:28 am COLD TOES PVD May 30, 2024 8:36 am LONGTERM LAB WORK June 05, 2024 4: 00am LABWORK June 23, 2024 5:0 0am LABWORK July 21, 2024 5:00a m LONGTERM LAB WORK August 01, 2024 5:0 0am LABWORK August 02, 2024 5:00a m Pacer Check Remote August 21, 2024 4:29 am Family History No Family History Records Found Relationship Condition Age at Onset Recorded Date/T [place] father Cardiac disease Unknown brother Cardiac disease Unknown Summary Purpose Additional Source Comments Source Comments (unrecognize d section and content) In the event this informatio n is protected by [facility] Confidentiality of Alcohol and Drug Abuse Patient Records regulations: The Federal rules restrict any use of the information to criminally investigate or prosecute any alcohol or drug abuse patient.[facility] Center[facility] the event this information is protected by the Federal Confidentiality of Alcohol and Drug Abuse Patient Records regulations: The Federal rules restrict any use of the information to criminally investigate or prosecute any alcohol or drug abuse patient.[facility] CenterIn the event this information is protected by the Federal Confidentiality of Alcohol and Drug Abuse Patient Records regulations: The Federal rules restrict any use of the information to criminally investigate or prosecute any alcohol or drug abuse patient.[facility] CenterIn the event this information is protected by the Federal Confidentiality of Alcohol and Drug Abuse Patient Records regulations: The Federal rules restrict any use of the information to criminally investigate or prosecute any alcohol or drug abuse patient.[facility] CenterIn the event this information is protected by the Federal Confidentiality of Alcohol and Drug Abuse Patient Records regulations: The Federal rules restrict any use of the information to criminally investigate or prosecute any alcohol or drug abuse patient.[facility] CenterIn the event this information is protected by the Federal Confidentiality of Alcohol and Drug Abuse Patient Records regulations: The Federal rules restrict any use of the information to criminally investigate or prosecute any alcohol or drug abuse patient.[facility] CenterIn the event this information is protected by the Federal Confidentiality of Alcohol and Drug Abuse Patient Records regulations: The Federal rules restrict any use of the information to criminally investigate or prosecute any alcohol or drug abuse patient.[facility] Reason for Visit (unrecogniz ed section and [...] 2024 End: April 19, 2024 Marimar Zimmer HAND CUTTER, HAND CUTTER-C Attending Provider Active Start: April 19, 2024 End: April 19, 2024 Team Status: Inactive Member Role Status Dates Dr. David Miramontes MD Primary Care Provider Active Start: May 01, 2024 End: May 01, 2024 Marimar Zimmer HAND CUTTER, HAND CUTTER-C Attending Provider Active Start: May 01, 2024 End: May 01, 2024 Team Status: Inactive Member Role Status Dates Dr. David Miramontes MD Primary Care Provider Active Start: May 11, 2024 End: May 11, 2024 Marimar Zimmer HAND CUTTER, HAND CUTTER-C Attending Provider Active Start: May 11, 2024 [...] 2024 End: May 18, 2024 Marimar Zimmer HAND CUTTER, HAND CUTTER-C Attending Provider Active Start: May 18, 2024 [...] June 23, 2024 End: June 23, 2024 Spa Director Relationship Specialty Start Date End Date Nicolas Kaur MD [address] [place], [place] [id number] PCP - General 02/12/03 Spa Director Relationship Specialty Start Date End Date Nicolas Kaur MD [address] [place], [place] [id number] PCP - General 02/12/03 Spa Director Relationship Specialty Start Date End Date Nicolas Kaur MD [address] [facility] [place] [address] PCP - General 02/12/03 Spa Director Relationship Specialty Start Date End Date Nicolas Kaur MD [address] [facility] [place] [address] PCP - General 02/12/03 Team Status: Active Member Role Status Dates Dr. Nicolas Kaur MD Family Provider Active Dr. Nicolas Kaur MD Primary Care Provider Active Team Status: Inactive Member Role Status Dates Dr. Nicolas Kaur MD Primary Care Provider Active Marimar Zimmer HAND CUTTER, HAND CUTTER-C Attending Provider Active Team Status: Inactive Member Role Status Dates Dr. Nicolas Kaur MD Primary Care Provider Active Dr. David Miramontes MD Attending Provider Active Team Status: Inactive Member Role Status Dates Dr. Nicolas Kaur MD Primary Care Provider Active Jhonny Tomas MD Attending Provider Active Team Status: Inactive Member Role Status Dates Dr. Nicolas Kaur MD Primary Care Provider Active David Miramontes MD Attending Provider Active Team Status: Inactive Member Role Status Dates Dr. Nicolas Kaur MD Primary Care Provider Active David GARCIA [...] 2024 End: March 13, 2024 Marimar Zimmer HAND CUTTER, HAND CUTTER-C Attending Provider Active Start: March 13, 2024 [...] 2024 End: May 22, 2024 Team Status: Active Member Role/Relationship Status Dates Dr. David Miramontes MD Primary Care Provider Active Team Status: Inactive Member Role/Relationship Status Dates Dr. David Miramontes MD Primary Care Provider Active Start: May 01, 2024 End: May 01, 2024 Marimar Zimmer HAND CUTTER, HAND CUTTER-C Attending Provider Active Start: May 01, 2024 End: May 01, 2024 Team Status: Inactive Member Role/Relationship Status Dates Dr. David Miramontes MD Primary Care Provider Active Start: May 11, 2024 End: May 11, 2024 Marimar Zimmer HAND CUTTER, HAND CUTTER-C Attending Provider Active Start: May 11, 2024 End: May 11, 2024 Team Status: Inactive Member Role/Relationship Status Dates Dr. David Miramontes MD Primary Care Provider Active Start: May 13, 2024 End: May 13, 2024 Dr. Edson Quinn MD Attending Provider Active S tart: May 13, 2024 End: May 13, 2024 Dr. Edson Quinn MD Referring Provider Active S tart: May 13, 2024 End: May 13, 2024 Team Status: Inactive Member Role/Relationship Status Dates Dr. David Miramontes MD Primary Care Provider Active Start: May 18, 2024 End: May 18, 2024 Marimar Zimmer HAND CUTTER, HAND CUTTER-C Attending Provider Active Start: May 18, 2024 End: May 18, 2024 Team Status: Inactive Member Role/Relationship Status Dates Dr. David Miramontes MD Primary Care Provider Active Start: May 22, 2024 End: May 22, 2024 Dr. Edson Quinn MD Attending Provider Active S tart: May 22, 2024 End: May 22, 2024 Dr. Edson Quinn MD Referring Provider Active S tart: May 22, 2024 End: May 22, 2024 Team Status: Inactive Member Role/Relationship Status Dates Dr. David Miramontes MD Primary Care Provider Active Start: May 22, 2024 End: May 22, 2024 David GARCIA MD Attending Provider Active Start: May 22, 2024 End: May 22, 2024 Team Status: Inactive Member Role/Relationship Status Dates Dr. David Miramontes MD Primary Care Provider Active Start: May 23, 2024 End: May 23, 2024 Dr. David Miramontes MD Attending Provider Active Start: May 23, 2024 End: May 23, 2024 Team Status: Inactive Member Role/Relationship Status Dates Dr. David Miramontes MD Primary Care Provider Active Start: May 30, 2024 End: May 30, 2024 David GARCIA MD Attending Provider Active Start: May 30, 2024 End: May 30, 2024 Team Status: Inactive Member Role/Relationship Status Dates Dr. David Miramontes MD Primary Care Provider Active Start: May 30, 2024 End: May 30, 2024 Marimar Zimmer HAND CUTTER, HAND CUTTER-C Attending Provider Active Start: May 30, 2024 End: May 30, 2024 Team Status: Inactive Member Role/Relationship Status Dates Dr. David Miramontes MD Primary Care Provider Active Start: May 30, 2024 End: May 30, 2024 Dr. David Miramontes MD Attending Provider Active Start: May 30, 2024 End: May 30, 2024 Dr. David Miramontes MD Referring Provider Active Start: May 30, 2024 End: May 30, 2024 Team Status: Active Member Role/Relationship Status Dates Dr. David Miramontes MD Primary Care Provider Active Start: May 30, 2024 Dr. David Miramontes MD Referring Provider Active Start: May 30, 2024 Dr. Josiah Klein MD Attending Provider Active S tart: May 30, 2024 Team Status: Active Member Role/Relationship Status Dates Dr. David Miramontes MD Primary Care Provider Active Start: May 30, 2024 David GARCIA MD Attending Provider Active Start: May 30, 2024 Team Status: Inactive Member Role/Relationship Status Dates Dr. David Miramontes MD Primary Care Provider Active Start: June 05, 2024 End: June 05, 2024 David GARCIA MD Attending Provider Active Start: June 05, 2024 End: June 05, 2024 David GARCIA MD Referring Provider Active Start: June 05, 2024 End: June 05, 2024 Team Status: Inactive Member Role/Relationship Status Dates Dr. David Miramontes MD Primary Care Provider Active Start: June 23, 2024 End: June 23, 2024 David GARCIA MD Attending Provider Active Start: June 23, 2024 End: June 23, 2024 Team Status: Active Member Role/Relationship Status Dates Dr. David Miramontes MD Primary Care Provider Active Start: July 21, 2024 David GARCIA MD Attending Provider Active Start: July 21, 2024 Team Status: Active Member Role/Relationship Status Dates Dr. David Miramontes MD Primary Care Provider Active Start: August 01, 2024 David GARCIA MD Attending Provider Active Start: August 01, 2024 Team Status: Active Member Role/Relationship Status Dates Dr. David Miramontes MD Primary Care Provider Active Start: August 02, 2024 David GARCIA MD Attending Provider Active Start: August 02, 2024 Team Status: Inactive Member Role/Relationship Status Dates Dr. David Miramontes MD Primary Care Provider Active Start: August 21, 2024 End: August 21, 2024 Dr. Edson Quinn MD Attending Provider Active S tart: August 21, 2024 End: August 21, 2024 Team Status: Active Member Role/Relationship Status Dates Dr. David Miramontes MD Primary Care Provider Active Start: August 22, 2024 David GARCIA MD Attending Provider Active Start: August 22, 2024 Goals (unrecognized section and content) [...] section and content) DATE CREATED AUTHOR 06/08/2022 [facility] DATE CREATED AUTHOR AUTHOR'S ORGANIZ ATION 07/17/2024 [facility] DATE CREATED AUTHOR AUTHOR'S ORGANIZ ATION 08/26/2024 [facility] FOR RECORDS PERTAINING TO PATIENTS WHO ARE [...] BE BASED ON THE PRIMARY CLINICAL RECORDS. [facility]. provides no warranty or guarantee of the accuracy or completeness of information in this document.
--- OUTSIDE RECORDS SUMMARY | 2024-08-31 04:48 | XMS RPT_ITS | CCD ---
Author Organization [facility] Care Team Providers Care Manufacturing Quality Engineer Name Role Phone Nicolas Kaur MD Primary Care Provider Dr. Nicolas Kaur Primary Care Provider Dr. Abhinav Leigh Emergency Provider Dr. Robinson Nguyen Admit Provider Dr. Robinson Nguyen Attending Provider Dr. Robinson Nguyen Other Provider Dr. Kevin Nichole Attending Provider Dr. Kevin Nichole Other Provider Dr. Desire Leung Attending Provider Nicolas Kaur MD Primary Care Provider Mesha SUPERVISOR [employer], SUPERVISOR [employer] Marimar Attending Provider Dr. Nicolas Justin Primary Care Provider Mesha SUPERVISOR [employer], SUPERVISOR [employer] Marimar Attending Provider Dr. David Nina Attending Provider Unavailable Primary Care Provider UnavailNICOLAS Blankenship Referring Unavailable NICOLAS KAUR Attending Unavailable NICOLAS KAUR Primary Care Unavailable Dr. Nicolas Kaur Primary Care Provider Mesha SUPERVISOR [employer], SUPERVISOR [employer] Marimar Attending Provider Dr. David Nina Attending Provider Dr. Nicolas Kaur Primary Care Provider Mesha SUPERVISOR [employer], SUPERVISOR [employer] Marimar Attending Provider Dr. Frandy Ninaongbe Attending Provider Dr. Nicolas Kaur Primary Care Provider Mesha SUPERVISOR [employer], SUPERVISOR [employer] Marimar Attending Provider Dr. David Miramontes Attending Provider [phone] Dr. David Miramontes MD Primary Care Provider Dr. Edson Quinn MD Attending Provider Dr. Edson Quinn MD Referring Provider [phone] Dr. David Miramontes MD Attending Provider Isidro Can Attending Provider Mesha SUPERVISOR [employer]-CMarimar Attending Provider David Miramontes MD Attending Provider [...] David Miramontes MD Primary Care Provider Mesha SUPERVISOR [employer]-CMarimar Attending Provider Unavailable Primary Care Provider Unavailabl DIANA Sampson Attending Unava ilable SELF Referring Unavailable Dr. David Miramontes MD Primary Care Provider Mesha SUPERVISOR [employer]-CMarimar Attending Provider David Miramontes MD Attending Provider [...] Unavailable Oleghe, Efewongbe Primary Care Unavailable Kai, [place] Referring Unavailable Kai, [place] Attending Unavailable Oleghe, Efewongbe Primary Care Unavailable Kai, Edson Attending Unavailable Kai, [place] Referring Unavailable Oleghe, Efewongbe Primary Care Unavailable Oleghe, Efewongbe Attending Unavailable Oleghe, Efewongbe Primary Care Unavailable [place] SUPERVISOR [employer], Marimar Attending Unavailable Oleghe OLS, Efewongbe Attending Unavailabl e Oleghe, Efewongbe Primary Care Unavailable Oleghe OLS, Efewongbe Referring Unavailabl e Oleghe, Efewongbe Primary Care Unavailable Oleghe, Efewongbe Attending Unavailable Oleghe OLS, Efewongbe Attending Unavailabl e Oleghe, Efewongbe Primary Care Unavailable Oleghe, Efewongbe Primary Care Unavailable [place] SUPERVISOR [employer], Marimar Attending Unavailable Oleghe, Efewongbe Primary Care Unavailable Kai, Edson Referring Unavailable Kai, [place] Attending Unavailable Oleghe, Efewongbe Primary Care Unavailable Oleghe, Efewongbe Attending Unavailable Oleghe, Efewongbe Primary Care Unavailable [place] SUPERVISOR [employer], Marimar Attending Unavailable FerulloKyung Attending Unavailable Oleghe, Efewongbe Primary Care Unavailable Oleghe, Efewongbe Primary Care Unavailable Kai, Edson Attending Unavailable Kai, Edson Referring Unavailable Oleghe, Efewongbe Primary Care Unavailable [place] SUPERVISOR [employer], Marimar Attending Unavailable Oleghe, Efewongbe Primary Care Unavailable Oleghe, Efewongbe Attending Unavailable Oleghe, Efewongbe Primary Care Unavailable Kai, Edson Attending Unavailable Oleghe, Efewongbe Primary Care Unavailable Isidro Can Attending Unavailable Oleghe, Efewongbe Primary Care Unavailable [place] SUPERVISOR [employer], Marimar Attending Unavailable Oleghe, Efewongbe Primary Care Unavailable Kai, Edson Referring Unavailable Kai, [place] Attending Unavailable Oleghe, Efewongbe Primary Care Unavailable Oleghe, Efewongbe Attending Unavailable Oleghe, Efewongbe Primary Care Unavailable [place] SUPERVISOR [employer], Marimar Attending Unavailable Oleghe, Efewongbe Primary Care Unavailable Ferullo, Kyung Attending Unavailable Oleghe, Efewongbe Primary Care Unavailable [place] SUPERVISOR [employer], Marimar Attending Unavailable Oleghe, Efewongbe Primary Care Unavailable Kai, [place] Referring Unavailable Kai, Edson Attending Unavailable Oleghe [...] daily. docusate sodium 50 mg / sennosides, fdc 8.6 mg oral tablet (20 sources) Start: [...] capsule (15 sources) Start: 9 End: 4 [place]-3 Fatty Acids-Fish Oil (Fish Oil) 360-1,200 mg [...] hydrochloride 5 mg oral tablet (20 sources) [id number] e Receptor Antagonist Start: 3 End: 4 [...] A DAY 0 October 22, 2021 12:00am [place]-3 Fatty Acids (Fish Oil Concentrate) 1,000 mg capsule (15 sources) Start: 08-23-2018 End: 11-08-2018 take 1 capsule by mouth once daily [place]-3 Fatty Acids (Fish Oil Concentrate) 1,000 mg capsule Discontinued 1000 mg PO DAILY August 23, 2018 12:00am November 08, 2018 1:59pm Start: 08-23-2018 End: 11-08-2018 take 1 capsule by mouth once daily [place]-3 Fatty Acids (Fish Oil Concentrate) 1,000 mg capsule Discontinued 1000 MG PO DAILY August 22, 2018 11:00pm November 08, 2018 12:59pm Start: 08-23-2018 End: 11-08-2018 take 1 capsule by mouth once daily [place]-3 Fatty Acids (Fish Oil Concentrate) 1,000 mg [...] Comment on above: Take 1 capsule by [facility] once daily. 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; Translations: [Long-term [...] Auto (Unsp spec) [#/Vol] 1.28 10*3/uL 0.83-4.51 [facility] Absolute neutrophil countOrd ered By: David Miramontes on 08-22-2024 Neutrophils (Bld) [#/Vol] 5.0 10*3/uL 2.0-7.7 [facility] Anion gap in Serum or Plasma Ordered By: David Miramontes on 08-22-2024 Anion gap [Moles/Vol] 8 mmol/L 5-15 [facility] Automated lymphocyte count a s percentage of total leukocytesOrdered By: David Miramontes on 08-22-2024 Lymphocytes/100 WBC Auto (Unsp spec) 17.6 % Low 19-41 [facility] BUN/creatinine ratioOrdered By: David Miramontes on 08-22-2024 Urea nitrogen/Creatinine [Mass ratio] 13.7 mg/mg 10-20 [facility] Basophil percentageOrdered B y: David Miramontes on 08-22-2024 Basophils/100 WBC (Bld) 0.7 % 0-1 [facility] Bilirubin, totalOrdered By: David Miramontes on 08-22-2024 Bilirubin [Mass/Vol] 0.31 mg/dL 0.00-1.30 [facility] Carbon dioxide, total [Moles /volume] in Central venous bloodOrdered By: David Miramontes on 08-22-2024 CO2 [Moles/Vol] 28.1 mmol/L 21.0-32.0 [facility] Chloride assayOrdered By: Mayra Miramontes on 08-22-2024 Chloride [Moles/Vol] 107 mmol/L 98-108 [facility] Eosinophil percentageOrdered By: David Miramontes on 08-22-2024 Eosinophils/100 WBC (Bld) 2.6 % 0-5 [facility] Erythrocyte distribution wid th ratioOrdered By: David Miramontes on 08-22-2024 Erythrocyte distribution width (RBC) [Ratio] 15.3 % High 11.6-14.6 [facility] Erythrocyte distribution wid th standard deviationOrdered By: David Miramontes on 08-22-2024 Erythrocyte distribution width (RBC) [Ratio] 57.1 fl High 35.1-43.9 [facility] Glomerular filtration rate ( GFR) estimation/1.73 sq m using serum, plasma, or whole bOrdered By: David Miramontes on 08-22-2024 GFR/1.73 sq M.predicted among non-blacks MDRD (S/P/Bld) [Vol rate/Area] 78 mL/min/{1.73_m2} >60 [facility] Comment on above: mL/min/1.73m2 CKD-EP I Creatinine Equation (2020) Hematocrit Auto (Bld) [Volum e fraction]Ordered By: David Miramontes on 08-22-2024 Hematocrit (Bld) [Volume fraction] 41.1 % 40-54 [facility] Hemoglobin measurementOrdere d By: David Miramontes on 08-22-2024 Hemoglobin (Bld) [Mass/Vol] 12.9 g/dL Low 13.0-16.5 [facility] Immature granulocytes/100 WB C Auto (Bld)Ordered By: David Miramontes on 08-22-2024 Immature granulocytes/100 WBC (Bld) 0.600 % 0.0-0.9 [facility] Comment on above: IG% - Immature Granu locytes (promyelocytes, myelocytes and metamyelocytes) > 1% indicates that a LEFT SHIFT is Present. Laboratory - Chemistry and C hemistry - challengeOrdered By: David Pinkamnatereza on 08-22-2024 AST [Catalytic activity/Vol] 34 U/L <38 [facility] MCV (mean corpuscular volume ) determinationOrdered By: Mayrawaynefeliciaingris Pinkamnatereza on 08-22-2024 MCV (RBC) [Entitic vol] 102.5 fL High 80-94 [facility] Mean corpuscular hemoglobin (MCH) determinationOrdered By: Mayrawaynefeliciaingris Pinkamnatereza on 08-22-2024 MCH (RBC) [Entitic mass] 32.2 pg High 27.0-32.0 [facility] Mean corpuscular hemoglobin concentration (MCHC) determinationOrdered By: David Miramontes on 08-22-2024 MCHC (RBC) [Mass/Vol] 31.4 g/dL Low 32-36 [facility] Mean platelet volume determi nationOrdered By: David Pinkamnatereza on 08-22-2024 Platelet mean volume (Bld) [Entitic vol] 11.4 fL 6.2-12.0 [facility] Monocyte percentageOrdered B y: Frandyfeliciaingris Pinkamnatereza on 08-22-2024 Monocytes/100 WBC (Bld) 10.0 % 0-10 [facility] Neutrophil percentageOrdered By: Frandyfeliciaingris Pinkamnatereza on 08-22-2024 Neutrophils/100 WBC (Bld) 68.5 % 47-70 [facility] Nucleated red blood cell per centageOrdered By: Frandyfeliciaingris Pinkamnatereza on 08-22-2024 Nucleated RBC/100 WBC (Bld) [Ratio] 0 % 0-5 [facility] Platelet countOrdered By: Mayra fawadingris Pinkamnatereza on 08-22-2024 Platelets (Bld) [#/Vol] 170 10*3/uL 150-450 [facility] Potassium measurement (mass/ volume)Ordered By: Frandyfeliciaingris Pinkamnatereza on 08-22-2024 Potassium (Unsp spec) [Mass/Vol] 3.8 mmol/L 3.3-5.1 [facility] RBC Auto (Bld) [#/Vol]Ordere d By: Frandyfeliciaingris Miramontes on 08-22-2024 RBC (Bld) [#/Vol] 4.01 10*6/uL Low 4.6-6.2 [facility] Serum creatinine measurement (mass/volume)Ordered By: David Miramontes on 08-22-2024 Creatinine [Mass/Vol] 0.96 mg/dL 0.70-1.20 [facility] Serum globulin measurementOr dered By: David Miramontes on 08-22-2024 Globulin (S) [Mass/Vol] 2.7 g/dL 2.2-4.2 [facility] Serum glucose measurement (m ass/volume)Ordered By: David Miramontes on 08-22-2024 Glucose [Mass/Vol] 82 mg/dL 70-99 [facility] Serum or plasma alanine grant otransferase (ALT) measurementOrdered By: David Miramontes on 08-22-2024 ALT [Catalytic activity/Vol] 13 U/L <47 [facility] Serum or plasma albumin siobhan urement (mass/volume)Ordered By: David Miramontes on 08-22-2024 Albumin [Mass/Vol] 3.5 g/dL 3.4-4.8 [facility] Serum or plasma albumin/glob ulin mass ratioOrdered By: David Miramontes on 08-22-2024 Albumin/Globulin [Mass ratio] 1.3 {ratio} 0.9-2.4 [facility] Serum or plasma alkaline deven sphatase measurementOrdered By: David Miramontes 08-22-2024 ALP [Catalytic activity/Vol] 106 U/L 40-129 [facility] Serum or plasma calcium siobhan urement (mass/volume)Ordered By: David Miramontes on 08-22-2024 Calcium [Mass/Vol] 8.9 mg/dL 7.6-11.0 [facility] Serum or plasma urea nitroge n measurement (mass/volume)Ordered By: David Miramontes on 08-22-2024 Urea nitrogen [Mass/Vol] 13 mg/dL 4-19 [facility] Sodium levelOrdered By: Frandy Miramontes on 08-22-2024 Sodium [Moles/Vol] 142 mmol/L 133-145 [facility] Total proteinOrdered By: Lg rupinderingris Miramontes on 08-22-2024 Protein [Mass/Vol] 6.2 g/dL 5.9-8.4 [facility] White blood cell (WBC) count Ordered By: David Miramontes on 08-22-2024 WBC (Bld) [#/Vol] 7.3 10*3/uL 4.4-11.0 [facility] Anion gap in Serum or Plasma Ordered By: David Miramontes on 08-02-2024 Anion gap [Moles/Vol] 11 mmol/L 5-15 [facility] BUN/creatinine ratioOrdered By: David Miramontes on 08-02-2024 Urea nitrogen/Creatinine [Mass ratio] 12.3 mg/mg 10- [facility] Carbon dioxide, total [Moles /volume] in Central venous bloodOrdered By: David Miramontes on 08-02-2024 CO2 [Moles/Vol] 24.2 mmol/L 21.0-32.0 [facility] Chloride assayOrdered By: Mayra waynecarleen Miramontes on 08-02-2024 Chloride [Moles/Vol] 105 mmol/L 98-108 [facility] Glomerular filtration rate ( GFR) estimation/1.73 sq m using serum, plasma, or whole bOrdered By: David Miramontes on 08-02-2024 GFR/1.73 sq M.predicted among non-blacks MDRD (S/P/Bld) [Vol rate/Area] 73 mL/min/{1.73_m2} >60 [facility] Comment on above: mL/min/1.73m2 CKD-EP I Creatinine Equation (2020) Potassium measurement (mass/ volume)Ordered By: David Miramontes on 08-02-2024 Potassium (Unsp spec) [Mass/Vol] 3.7 mmol/L 3.3-5.1 [facility] Serum creatinine measurement (mass/volume)Ordered By: David Miramontes on 08-02-2024 Creatinine [Mass/Vol] 1.01 mg/dL 0.70-1.20 [facility] Serum glucose measurement (m ass/volume)Ordered By: David Oleamnatereza on 08-02-2024 Glucose [Mass/Vol] 140 mg/dL High 70-99 [facility] Serum or plasma calcium siobhan urement (mass/volume)Ordered By: danay Miramontes on 08-02-2024 Calcium [Mass/Vol] 9.1 mg/dL 7.6-11.0 [facility] Serum or plasma urea nitroge n measurement (mass/volume)Ordered By: Vickyingris Charlietereza on 08-02-2024 Urea nitrogen [Mass/Vol] 12 mg/dL 4-19 [facility] Sodium levelOrdered By: [facility] carleen Guerratereza on 08-02-2024 Sodium [Moles/Vol] 141 mmol/L 133-145 [facility] Absolute lymphocyte countOrd ered By: David Miramontes on 08-01-2024 Lymphocytes Auto (Unsp spec) [#/Vol] 1.39 10*3/uL 0.83-4.51 [facility] Absolute neutrophil countOrd ered By: danay Miramontes on 08-01-2024 Neutrophils (Bld) [#/Vol] 4.8 10*3/uL 2.0-7.7 [facility] Automated lymphocyte count a s percentage of total leukocytesOrdered By: Vickyingris Pinkamnatereza on 08-01-2024 Lymphocytes/100 WBC Auto (Unsp spec) 18.9 % Low 19-41 [facility] Basophil percentageOrdered B y: Vickyingris Pinkamnatereza on 08-01-2024 Basophils/100 WBC (Bld) 0.4 % 0-1 [facility] Eosinophil percentageOrdered By: danay Miramontes on 08-01-2024 Eosinophils/100 WBC (Bld) 2.6 % 0-5 [facility] Erythrocyte distribution wid th ratioOrdered By: David Guerratereza on 08-01-2024 Erythrocyte distribution width (RBC) [Ratio] 15.5 % High 11.6-14.6 [facility] Erythrocyte distribution wid th standard deviationOrdered By: danay Joesphamnatereza on 08-01-2024 Erythrocyte distribution width (RBC) [Ratio] 57.9 fl High 35.1-43.9 [facility] Hematocrit Auto (Bld) [Volum e fraction]Ordered By: David Miramontes on 08-01-2024 Hematocrit (Bld) [Volume fraction] 40.2 % 40-54 [facility] Hemoglobin measurementOrdere d By: David Miramontes on 08-01-2024 Hemoglobin (Bld) [Mass/Vol] 12.6 g/dL Low 13.0-16.5 [facility] Immature granulocytes/100 WB C Auto (Bld)Ordered By: David Miramontes on 08-01-2024 Immature granulocytes/100 WBC (Bld) 0.400 % 0.0-0.9 [facility] Comment on above: IG% - Immature Granu locytes (promyelocytes, myelocytes and metamyelocytes) > 1% indicates that a LEFT SHIFT is Present. MCV (mean corpuscular volume ) determinationOrdered By: David Miramontes on 08-01-2024 MCV (RBC) [Entitic vol] 100.8 fL High 80-94 [facility] Mean corpuscular hemoglobin (MCH) determinationOrdered By: waynelockridgeingris Miramontes on 08-01-2024 MCH (RBC) [Entitic mass] 31.6 pg 27.0-32.0 [facility] Mean corpuscular hemoglobin concentration (MCHC) determinationOrdered By: David Miramontes on 08-01-2024 MCHC (RBC) [Mass/Vol] 31.3 g/dL Low 32-36 [facility] Mean platelet volume determi nationOrdered By: David Miramontes on 08-01-2024 Platelet mean volume (Bld) [Entitic vol] 11.8 fL 6.2-12.0 [facility] Monocyte percentageOrdered B y: David Miramontes on 08-01-2024 Monocytes/100 WBC (Bld) 12.5 % High 0-10 [facility] Neutrophil percentageOrdered By: David Mirmaontes on 08-01-2024 Neutrophils/100 WBC (Bld) 65.2 % 47-70 [facility] Nucleated red blood cell per centageOrdered By: danay Miramontes on 08-01-2024 Nucleated RBC/100 WBC (Bld) [Ratio] 0 % 0-5 [facility] Platelet countOrdered By: Mayra danay Miramontes on 08-01-2024 Platelets (Bld) [#/Vol] 182 10*3/uL 150-450 [facility] RBC Auto (Bld) [#/Vol]Ordere d By: David Miramontes on 08-01-2024 RBC (Bld) [#/Vol] 3.99 10*6/uL Low 4.6-6.2 [facility] White blood cell (WBC) count Ordered By: David Guerratereza on 08-01-2024 WBC (Bld) [#/Vol] 7.4 10*3/uL 4.4-11.0 [facility] Absolute lymphocyte countOrd ered By: David Guerratereza on 07-21-2024 Lymphocytes Auto (Unsp spec) [#/Vol] 1.21 10*3/uL 0.83-4.51 [facility] Absolute neutrophil countOrd ered By: David Guerratereza on 07-21-2024 Neutrophils (Bld) [#/Vol] 5.1 10*3/uL 2.0-7.7 [facility] Anion gap in Serum or Plasma Ordered By: Vickyingris Pinkamnatereza on 07-21-2024 Anion gap [Moles/Vol] 10 mmol/L 5-15 [facility] Automated lymphocyte count a s percentage of total leukocytesOrdered By: Frandyfeliciaingris Pinkmanatereza on 07-21-2024 Lymphocytes/100 WBC Auto (Unsp spec) 16.7 % Low 19-41 [facility] BUN/creatinine ratioOrdered By: David Joesphamnatereza on 07-21-2024 Urea nitrogen/Creatinine [Mass ratio] 16.2 mg/mg 10-20 [facility] Basophil percentageOrdered B y: Vickyingris Pinkamnatereza on 07-21-2024 Basophils/100 WBC (Bld) 0.4 % 0-1 [facility] Carbon dioxide, total [Moles /volume] in Central venous bloodOrdered By: Mayrawaynefeliciaingris Pinkamnatereza on 07-21-2024 CO2 [Moles/Vol] 25.5 mmol/L 21.0-32.0 [facility] Chloride assayOrdered By: Mayra Miramontes on 07-21-2024 Chloride [Moles/Vol] 106 mmol/L 98-108 [facility] Eosinophil percentageOrdered By: David Miramontes on 07-21-2024 Eosinophils/100 WBC (Bld) 1.4 % 0-5 [facility] Erythrocyte distribution wid th ratioOrdered By: David Miramontes on 07-21-2024 Erythrocyte distribution width (RBC) [Ratio] 15.4 % High 11.6-14.6 [facility] Erythrocyte distribution wid th standard deviationOrdered By: David Miramontes on 07-21-2024 Erythrocyte distribution width (RBC) [Ratio] 57.9 fl High 35.1-43.9 [facility] Glomerular filtration rate ( GFR) estimation/1.73 sq m using serum, plasma, or whole bOrdered By: David Miramontes on 07-21-2024 GFR/1.73 sq M.predicted among non-blacks MDRD (S/P/Bld) [Vol rate/Area] 67 mL/min/{1.73_m2} >60 [facility] Comment on above: mL/min/1.73m2 CKD-EP I Creatinine Equation (2020) Hematocrit Auto (Bld) [Volum e fraction]Ordered By: David Miramontes on 07-21-2024 Hematocrit (Bld) [Volume fraction] 39.0 % Low 40-54 [facility] Hemoglobin measurementOrdere d By: David Miramontes on 07-21-2024 Hemoglobin (Bld) [Mass/Vol] 12.4 g/dL Low 13.0-16.5 [facility] Immature granulocytes/100 WB C Auto (Bld)Ordered By: David Miramontes on 07-21-2024 Immature granulocytes/100 WBC (Bld) 0.400 % 0.0-0.9 [facility] Comment on above: IG% - Immature Granu locytes (promyelocytes, myelocytes and metamyelocytes) > 1% indicates that a LEFT SHIFT is Present. MCV (mean corpuscular volume ) determinationOrdered By: David Miramontes on 07-21-2024 MCV (RBC) [Entitic vol] 101.0 fL High 80-94 [facility] Mean corpuscular hemoglobin (MCH) determinationOrdered By: David Miramontes on 07-21-2024 MCH (RBC) [Entitic mass] 32.1 pg High 27.0-32.0 [facility] Mean corpuscular hemoglobin concentration (MCHC) determinationOrdered By: David Miramontes on 07-21-2024 MCHC (RBC) [Mass/Vol] 31.8 g/dL Low 32-36 [facility] Mean platelet volume determi nationOrdered By: David Miramontes on 07-21-2024 Platelet mean volume (Bld) [Entitic vol] 11.7 fL 6.2-12.0 [facility] Monocyte percentageOrdered B y: David Miramontes on 07-21-2024 Monocytes/100 WBC (Bld) 11.3 % High 0-10 [facility] Neutrophil percentageOrdered By: David Miramontes on 07-21-2024 Neutrophils/100 WBC (Bld) 69.8 % 47-70 [facility] Nucleated red blood cell per centageOrdered By: David Miramontes on 07-21-2024 Nucleated RBC/100 WBC (Bld) [Ratio] 0 % 0-5 [facility] Platelet countOrdered By: Mayra Miramontes on 07-21-2024 Platelets (Bld) [#/Vol] 172 10*3/uL 150-450 [facility] Potassium measurement (mass/ volume)Ordered By: David Miramontes on 07-21-2024 Potassium (Unsp spec) [Mass/Vol] 3.9 mmol/L 3.3-5.1 [facility] RBC Auto (Bld) [#/Vol]Ordere d By: David Miramontes on 07-21-2024 RBC (Bld) [#/Vol] 3.86 10*6/uL Low 4.6-6.2 [facility] Serum creatinine measurement (mass/volume)Ordered By: David Miramontes on 07-21-2024 Creatinine [Mass/Vol] 1.08 mg/dL 0.70-1.20 [facility] Serum glucose measurement (m ass/volume)Ordered By: David Miramontes on 07-21-2024 Glucose [Mass/Vol] 90 mg/dL 70-99 [facility] Serum or plasma calcium siobhan urement (mass/volume)Ordered By: David Miramontes on 07-21-2024 Calcium [Mass/Vol] 9.1 mg/dL 7.6-11.0 [facility] Serum or plasma urea nitroge n measurement (mass/volume)Ordered By: David Miramontes on 07-21-2024 Urea nitrogen [Mass/Vol] 18 mg/dL 4-19 [facility] Sodium levelOrdered By: Frandy carleen Kulwinder on 07-21-2024 Sodium [Moles/Vol] 141 mmol/L 133-145 [facility] TSH DL <= 0.005 mIU/L QnOrde red By: David Miramontes on 07-21-2024 TSH Qn 2.450 uIU/mL 0.300-4.200 [facility] White blood cell (WBC) count Ordered By: David Miramontes on 07-21-2024 WBC (Bld) [#/Vol] 7.3 10*3/uL 4.4-11.0 [facility] BLADDER SCANon 07-14-2024 PVR 59 Cc [facility] BLADDER SCANOrdered By: Dayo Perez on 07-14-2024 [facility] CNOVon 07-14-2024 CNOV Office Visit (AKURFKrystle) KEL DILLARD ([id number]) 1940 M Date Time Provider Department 07/14/24 9:00 AM DIANA ARANGO During your visit today, we recorded the following information about you: Diana Arango APRN.REGIONAL OFFICE COORDINATOR 07/14/2024 9:11 AM Signed [facility] [place] [facility]OLOG[facility] VISIT 07/14/2024 8:51 [...] kg/m? Physical (more content not included)... Normal [facility] CYTOLOGY NON-GYNon 5 AP DISCLAIMER Normal [facility] Comment on above: Order Comment: Speci men Type: URINE SPECIMEN Ordering Facility: [facility] Address: [address] [place] [address] Result Comment: Hussain blanco Developed Test (LDT) Disclaimer: Performance characteristics of immunohistochemical, immunofluorescent, and chromogenic in-situ hybridization tests have been determined by the performing laboratory within [facility]'s Rell Jarrod [facility] Pathology and Laboratory Medicine Department ([facility], [facility], [facility], [facility], [facility], On License Of [facility], or [facility]) in a manner consistent with CLIA [...] appropriately. Performed By: #### C YTONON #### [facility] CLIA [id number] [address] [place] CASE REPORT Normal [facility] Comment on above: Order Comment: Speci men Type: URINE SPECIMEN Ordering Facility: [facility] Address: [address] [place] [address] Result Comment: [facility] albertina Cytology Report Case: [id number] Authorizing Provider: Diana Arango: 07/14/2024 09:01 AM MATTHEW Andres Ordering Location: [facility] Received: 07/17/2024 03:50 AM Pathologist: Rosy Cavazos MD Specimen: Urine, Midstream Performed By: #### C YTONON #### [facility] CLIA [id number] [address] CLINICAL HISTORY gross hematuria Normal [facility] Comment on above: Order Comment: Speci men Type: URINE SPECIMEN Ordering Facility: [facility] Address: [address] [place] [address] Performed By: #### C YTONON #### [facility] CLIA [id number] [address] FINAL DIAGNOSIS Normal [facility] Comment on above: Order Comment: Speci men Type: URINE SPECIMEN Ordering Facility: [facility] Address: [address] [place] [address] Result Comment: A - Urine, Midstream Negative for high-grade urothelial carcinoma. Blood. at 1046 EDT Performed By: #### C YTONON #### [facility] CLIA [id number] [address] [place] [address] FINAL PERFORMING LAB Normal [facility] Comment on above: Order Comment: Speci men Type: URINE SPECIMEN Ordering Facility: [facility] Address: [address] [place] [address] Result Comment: Tech nical component, hvac commercial salesperson screening performed at: [facility], [address] [place] [address] CLIA: [id number] Diagnostic interpretation performed at: [facility], [address] [place] [address] CLIA# [id number] Content Designer: Josiah Ochoa MD Performed By: #### C YTONON #### [facility] CLIA [id number] [address] GROSS DESCRIPTION Normal [facility] Comment on above: Order Comment: Speci men Type: URINE SPECIMEN Ordering Facility: [facility] Address: [facility] [address] Result Comment: A. U rine, Midstream 7.5 cc cloudy yellow fluid. ThinPrep prepared. Performed By: #### C JAYDEN #### [facility] CLIA [id number] 1 [place] [address] [place] UA DIP, URINE (POC)on 2024 BILIRUBIN UA (POCT) Negative Negative [facility] CLARITY UA (POCT) Clear [facility] COLOR UA (POCT) Yellow [facility] GLUCOSE UA (POCT) Negative Negative mg/dL [facility] Hemoglobin Ql (U) Trace-intact Abnormal Negative [facility] Interpretation and review of laboratory results Abnormal [facility] KETONE UA (POCT) Negative Negative mg/dL [facility] LEUKOCYTES UA (POCT) Negative [facility] NITRITE UA (POCT) Negative Negative [facility] PH UA (POCT) 5.5 4.5 - 8.0 [facility] Protein Ql (U) 30 mg/dL Abnormal Negative [facility] SPECIFIC GRAVITY UA (POCT) 1.025 1.005 - 1.030 [facility] UROBILINOGEN UA (POCT) 0.2 Debbie l E.U./dL [facility] Location:[facility], [address] [place] [address], [address] [place] [address] POINT OF CARE [facility] Serum or plasma uric acid me asurement (mass/volume)Ordered By: David Miramontes on 06-23-2024 Urate [Mass/Vol] 4.2 mg/dL 3.5-7.2 [facility] Comment on above: The drugs N-Acetylcy steine and Metamizole may falsely depress this assay. Absolute lymphocyte countOrd ered By: David Miramontes on 06-05-2024 Lymphocytes Auto (Unsp spec) [#/Vol] 1.05 10*3/uL 0.83-4.51 [facility] Absolute neutrophil countOrd ered By: David Miramontes on 06-05-2024 Neutrophils (Bld) [#/Vol] 4.8 10*3/uL 2.0-7.7 [facility] Anion gap in Serum or Plasma Ordered By: David Miramonets on 06-05-2024 Anion gap [Moles/Vol] 11 mmol/L 5-15 [facility] Automated lymphocyte count a s percentage of total leukocytesOrdered By: David Miramontes on 06-05-2024 Lymphocytes/100 WBC Auto (Unsp spec) 15.8 % Low 19-41 [facility] BUN/creatinine ratioOrdered By: waynelockridgeingris Miramontes on 06-05-2024 Urea nitrogen/Creatinine [Mass ratio] 9.3 mg/mg Low 10-20 [facility] Basophil percentageOrdered B y: David Miramontes on 06-05-2024 Basophils/100 WBC (Bld) 1.1 % High 0-1 [facility] Carbon dioxide, total [Moles /volume] in Central venous bloodOrdered By: David Miramontes on 06-05-2024 CO2 [Moles/Vol] 26.8 mmol/L 21.0-32.0 [facility] Chloride assayOrdered By: Mayra waynecarleen Miramontes on 06-05-2024 Chloride [Moles/Vol] 101 mmol/L 98-108 [facility] Eosinophil percentageOrdered By: David Miramontes on 06-05-2024 Eosinophils/100 WBC (Bld) 2.3 % 0-5 [facility] Erythrocyte distribution wid th (RBC) [Ratio]Ordered By: David Miramontes on 06-05-2024 Erythrocyte distribution width (RBC) [Entitic vol] 55.4 fL High 35.1-43.9 [facility] Erythrocyte distribution wid th ratioOrdered By: waynelockridgeingris Miramontes on 06-05-2024 Erythrocyte distribution width (RBC) [Ratio] 15.0 % High 11.6-14.6 [facility] Erythrocyte distribution wid th standard deviationOrdered By: David Pinkamnatereza on 06-05-2024 Erythrocyte distribution width (RBC) [Ratio] 55.4 fl High 35.1-43.9 [facility] GFR/1.73 sq M.predicted eleazar g non-blacks MDRD (S/P/Bld) [Vol rate/Area]Ordered By: David Miramontes on 06-05-2024 Estimated GFR (MDRD) Non-Af Amer 48 Low >60 [facility] Comment on above: mL/min/1.73m2 CKD-EP I Creatinine Equation (2020) Glomerular filtration rate ( GFR) estimation/1.73 sq m using serum, plasma, or whole bOrdered By: David Miramontes on 06-05-2024 GFR/1.73 sq M.predicted among non-blacks MDRD (S/P/Bld) [Vol rate/Area] 48 mL/min/{1.73_m2} Low >60 [facility] Comment on above: mL/min/1.73m2 CKD-EP I Creatinine Equation (2020) Hematocrit Auto (Bld) [Volum e fraction]Ordered By: David Miramontes on 06-05-2024 Hematocrit (Bld) [Volume fraction] 41.8 % 40-54 [facility] Hemoglobin measurementOrdere d By: David Miramontes on 06-05-2024 Hemoglobin (Bld) [Mass/Vol] 13.3 g/dL 13.0-16.5 [facility] Immature granulocytes/100 WB C Auto (Bld)Ordered By: David Miramontes on 06-05-2024 Immature granulocytes/100 WBC (Bld) 0.300 % 0.0-0.9 [facility] Comment on above: IG% - Immature Granu locytes (promyelocytes, myelocytes and metamyelocytes) > 1% indicates that a LEFT SHIFT is Present. Lymphocytes Auto (Unsp spec) [#/Vol]Ordered By: David Miramontes on 06-05-2024 Lymphocytes (Bld) [#/Vol] 1.05 10*3/uL 0.83-4.51 [facility] Lymphocytes/100 WBC Auto (Un sp spec)Ordered By: David Miramontes on 06-05-2024 Lymphocytes/100 WBC (Bld) 15.8 % Low 19-41 [facility] MCV (mean corpuscular volume ) determinationOrdered By: David Miramontes on 06-05-2024 MCV (RBC) [Entitic vol] 100.5 fL High 80-94 [facility] Mean corpuscular hemoglobin (MCH) determinationOrdered By: David Miramontes on 06-05-2024 MCH (RBC) [Entitic mass] 32.0 pg 27.0-32.0 [facility] Mean corpuscular hemoglobin concentration (MCHC) determinationOrdered By: David Miramontes on 06-05-2024 MCHC (RBC) [Mass/Vol] 31.8 g/dL Low 32-36 [facility] Mean platelet volume determi nationOrdered By: David Miramontes on 06-05-2024 Platelet mean volume (Bld) [Entitic vol] 11.3 fL 6.2-12.0 [facility] Monocyte percentageOrdered B y: David Miramontes on 06-05-2024 Monocytes/100 WBC (Bld) 8.9 % 0-10 [facility] Neutrophil percentageOrdered By: David Miramontes on 06-05-2024 Neutrophils/100 WBC (Bld) 71.6 % High 47-70 [facility] Nucleated red blood cell per centageOrdered By: David Miramontes on 06-05-2024 Nucleated RBC/100 WBC (Bld) [Ratio] 0 % 0-5 [facility] Platelet countOrdered By: Mayra fawadingris Miramontes on 06-05-2024 Platelets (Bld) [#/Vol] 216 10*3/uL 150-450 [facility] Potassium (Unsp spec) [Mass/ Vol]Ordered By: David Miramontes on 06-05-2024 Potassium [Moles/Vol] 3.9 mmol/L 3.3-5.1 [facility] Potassium measurement (mass/ volume)Ordered By: David Miramontes on 06-05-2024 Potassium (Unsp spec) [Mass/Vol] 3.9 mmol/L 3.3-5.1 [facility] RBC Auto (Bld) [#/Vol]Ordere d By: David Miramontes on 06-05-2024 RBC (Bld) [#/Vol] 4.16 10*6/uL Low 4.6-6.2 [facility] Serum creatinine measurement (mass/volume)Ordered By: David Miramontes on 06-05-2024 Creatinine [Mass/Vol] 1.42 mg/dL High 0.70-1.20 [facility] Serum glucose measurement (m ass/volume)Ordered By: David Miramontes on 06-05-2024 Glucose [Mass/Vol] 85 mg/dL 70-99 [facility] Serum or plasma calcium siobhan urement (mass/volume)Ordered By: David Miramontes on 06-05-2024 Calcium [Mass/Vol] 9.0 mg/dL 7.6-11.0 [facility] Serum or plasma urea nitroge n measurement (mass/volume)Ordered By: David Miramontes on 06-05-2024 Urea nitrogen [Mass/Vol] 13 mg/dL 4-19 [facility] Sodium levelOrdered By: Frandy Miramontes on 06-05-2024 Sodium [Moles/Vol] 139 mmol/L 133-145 [facility] White blood cell (WBC) count Ordered By: David Miramontes on 06-05-2024 WBC (Bld) [#/Vol] 6.6 10*3/uL 4.4-11.0 [facility] Amorphous sediment detection in urine sediment by light microscopyOrdered By: David Miramontes on 05-30-2024 Amorphous sediment LM Ql (Urine sed) 1+ [facility] Ankle Brachial Indexon 05-30 Ankle Brachial Index [facility] [address] [place] [address] Ankle Brachial Index 05/30/24 0904 MR#: [id number] Acct: [id number] Name: KEL DILLARD Rep #: [id number] : 1940 84 From: Josiah Klein MD [...] Dictated: 05/30/24 0904 Date Transcribed: 05/30/24 1543 [employer]st [employer]: Signed Normal [facility] Arterial study reportOrdered By: Josiah Klein on 05-30-2024 Noninvasive arteriosclerosis study report [facility] [address] [place] [address] Ankle Brachial Index 05/30/24 0904 MR#: [id number] Acct: [id number] Name: KEL DILLARD Rep #:[id number] : 1940 84 From: Josiah Naranjo Attending Dr: Dr. David Miramontes MD Status: REG CLI Ordering Dr: David Miramontes MD Date: 05/30/24 Location: [facility] Sex: M C Admitted: Reason For Study [...] Ordering Physician: Kulwinder^David^^Dr Obrien^ Referring Physician: DAVID MIRAMONTES MD Performed By: Yasmine May RVT, RDCS 05/30/24 1543 Date _ Josiah Klein MD CC: Dr. David Miramontes MD ~ Date Dictated: 05/30/2404 Date Transcribed: 05/30/241542 Analyst [employer]: Signed [facility] Work Phone: Bilirubin Test strip Ql (U)O rdered By: David Miramontes on 05-30-2024 Bilirubin Ql (U) Negative Negative [facility] Epithelial cells.squamous LM Ql (Urine sed)Ordered By: David Miramontes on 05-30-2024 Epithelial cells.squamous LM.HPF (Urine sed) [#/Area] 0 /[HPF] 0-5 [facility] Glucose Ql (U)Ordered By: Mayra Miramontes on 05-30-2024 Urine Glucose (UA) Normal mg/dl Normal [facility] Ketones Test strip Ql (U)Ord ered By: David Miramontes on 05-30-2024 Ketones Ql (U) Negative Negative [facility] Microscopic analysis of urin e for red blood cells (RBC)Ordered By: David Miramontes on 05-30-2024 Microscopic analysis of urine for red blood cells (RBC) > 100 SEEN /hpf 0-5 [facility] Urine RBC > 100 SEEN /hpf 0-5 [facility] Mucus LM Ql (Urine sed)Order ed By: David Miramontes on 05-30-2024 Mucus Ql (Urine sed) 0 SEEN /hpf [facility] Nitrite Test strip Ql (U)Ord ered By: David Miramontes on 05-30-2024 Nitrite Ql (U) Positive High Negative [facility] PSA, total screeningOrdered By: David Miramontes on 05-30-2024 Prostate Specific Antigen Screen 3.08 ng/mL 0.02-4.00 [facility] Comment on above: This test was perfor [...] Protein Ql (U) 500 mg/dl High Negative [facility] Squamous epithelial cells de tection in urine sediment by light microscopyOrdered By: David Miramontes on 05-30-2024 Epithelial cells.squamous LM Ql (Urine sed) 0-5 SEEN /hpf 0-5 [facility] Urine blood detectionOrdered By: David Miramontes on 05-30-2024 Urine Occult Blood 250 /ul High Negative [facility] Urine clarityOrdered By: Lg Miramontes on 05-30-2024 Clarity (U) Cloudy Clear [facility] Urine color determinationOrd ered By: David Miramontes on 05-30-2024 Color (U) Brown Yellow [facility] Urine cultureOrdered By: Lg Miramontes on 05-30-2024 Bacteria identified Cx Nom (U) Proteus mirabilis Abnormal [facility] Urine glucose detectionOrder ed By: David Miramontes on 05-30-2024 Glucose Ql (U) Normal mg/dl Normal [facility] Urine leukocyte esterase det ection by dipstickOrdered By: David Miramontes on 05-30-2024 Leukocyte esterase Test strip Ql (U) 500 /ul High Negative [facility] Urine pHOrdered By: Leo Miramontes on 05-30-2024 pH (U) 6.5 [pH] 5.0 - 8.0 [facility] Urine sediment bacteria coun t by microscopy (number/high power field)Ordered By: David Miramontes on 05-30-2024 Bacteria LM.HPF (Urine sed) [#/Area] 2 /[HPF] None Seen [facility] Urine specific gravity measu rementOrdered By: David Miramontes on 05-30-2024 Specific gravity (U) [Rel density] 1.015 1.002-1.030 [facility] Urine urobilinogen measureme ntOrdered By: David Miramontes on 05-30-2024 Urobilinogen Ql (U) 1 mg/dl High Normal [facility] Urobilinogen Ql (U)Ordered B y: David Miramontes on 05-30-2024 Urobilinogen (U) [Mass/Vol] 1 mg/dL High Normal [facility] White blood cell countOrdere d By: David Miramontes on 05-30-2024 Urine WBC 50-100 SEEN /hpf 0-5 [facility] White blood cell count 50-100 SEEN /hpf 0-5 [facility] Absolute lymphocyte countOrd ered By: David Miramontes on 05-22-2024 Lymphocytes Auto (Unsp spec) [#/Vol] 1.26 10*3/uL 0.83-4.51 [facility] Absolute neutrophil countOrd ered By: David Miramontes on 05-22-2024 Neutrophils (Bld) [#/Vol] 6.5 10*3/uL 2.0-7.7 [facility] Anion gap in Serum or Plasma Ordered By: David Miramontes on 05-22-2024 Anion gap [Moles/Vol] 13 mmol/L 5-15 [facility] Automated lymphocyte count a s percentage of total leukocytesOrdered By: David Miramontes on 05-22-2024 Lymphocytes/100 WBC Auto (Unsp spec) 14.0 % Low 19-41 [facility] BUN/creatinine ratioOrdered By: David Guerratereza on 05-22-2024 Urea nitrogen/Creatinine [Mass ratio] 7.8 mg/mg Low 10-20 [facility] Basophil percentageOrdered B y: David Miramontes on 05-22-2024 Basophils/100 WBC (Bld) 0.4 % 0-1 [facility] Bilirubin, totalOrdered By: David Joesphamnatereza on 05-22-2024 Bilirubin [Mass/Vol] 0.44 mg/dL 0.00-1.30 [facility] Carbon dioxide, total [Moles /volume] in Central venous bloodOrdered By: David Joesphamnatereza on 05-22-2024 CO2 [Moles/Vol] 24.8 mmol/L 21.0-32.0 [facility] Chloride assayOrdered By: Mayra danay Joesphamnatereza on 05-22-2024 Chloride [Moles/Vol] 104 mmol/L 98-108 [facility] Eosinophil percentageOrdered By: David Miramontes on 05-22-2024 Eosinophils/100 WBC (Bld) 1.0 % 0-5 [facility] Erythrocyte distribution wid th (RBC) [Ratio]Ordered By: Mayrawaynecarleen Joesphamnatereza on 05-22-2024 Erythrocyte distribution width (RBC) [Entitic vol] 54.3 fL High 35.1-43.9 [facility] Erythrocyte distribution wid th ratioOrdered By: David Guerratereza on 05-22-2024 Erythrocyte distribution width (RBC) [Ratio] 15.1 % High 11.6-14.6 [facility] Erythrocyte distribution wid th standard deviationOrdered By: David Miramontes on 05-22-2024 Erythrocyte distribution width (RBC) [Ratio] 54.3 fl High 35.1-43.9 [facility] GFR/1.73 sq M.predicted eleazar g non-blacks MDRD (S/P/Bld) [Vol rate/Area]Ordered By: Mayradanay Pinkamnatereza on 05-22-2024 Estimated GFR (MDRD) Non-Af Amer 33 Low >60 [facility] Comment on above: mL/min/1.73m2 CKD-EP I Creatinine Equation (2020) Glomerular filtration rate ( GFR) estimation/1.73 sq m using serum, plasma, or whole bOrdered By: David Miramontes on 05-22-2024 GFR/1.73 sq M.predicted among non-blacks MDRD (S/P/Bld) [Vol rate/Area] 33 mL/min/{1.73_m2} Low >60 [facility] Comment on above: mL/min/1.73m2 CKD-EP I Creatinine Equation (2020) Hematocrit Auto (Bld) [Volum e fraction]Ordered By: David Miramontes on 05-22-2024 Hematocrit (Bld) [Volume fraction] 40.5 % 40-54 [facility] Hemoglobin measurementOrdere d By: David Miramontes on 05-22-2024 Hemoglobin (Bld) [Mass/Vol] 12.9 g/dL Low 13.0-16.5 [facility] Immature granulocytes/100 WB C Auto (Bld)Ordered By: David Miramontes on 05-22-2024 Immature granulocytes/100 WBC (Bld) 0.300 % 0.0-0.9 [facility] Comment on above: IG% - Immature Granu locytes (promyelocytes, myelocytes and metamyelocytes) > 1% indicates that a LEFT SHIFT is Present. Laboratory - Chemistry and C hemistry - challengeOrdered By: David Miramontes on 05-22-2024 AST [Catalytic activity/Vol] 33 U/L <38 [facility] Lymphocytes Auto (Unsp spec) [#/Vol]Ordered By: David Miramontes on 05-22-2024 Lymphocytes (Bld) [#/Vol] 1.26 10*3/uL 0.83-4.51 [facility] Lymphocytes/100 WBC Auto (Un sp spec)Ordered By: David Miramontes on 05-22-2024 Lymphocytes/100 WBC (Bld) 14.0 % Low 19-41 [facility] MCV (mean corpuscular volume ) determinationOrdered By: David Miramontes on 05-22-2024 MCV (RBC) [Entitic vol] 99.3 fL High 80-94 [facility] Mean corpuscular hemoglobin (MCH) determinationOrdered By: David Miramontes on 05-22-2024 MCH (RBC) [Entitic mass] 31.6 pg 27.0-32.0 [facility] Mean corpuscular hemoglobin concentration (MCHC) determinationOrdered By: David Miramontes on 05-22-2024 MCHC (RBC) [Mass/Vol] 31.9 g/dL Low 32-36 [facility] Mean platelet volume determi nationOrdered By: David Miramontes on 05-22-2024 Platelet mean volume (Bld) [Entitic vol] 12.1 fL High 6.2-12.0 [facility] Monocyte percentageOrdered B y: David Miramontes on 05-22-2024 Monocytes/100 WBC (Bld) 11.8 % High 0-10 [facility] Neutrophil percentageOrdered By: David Miramontes on 05-22-2024 Neutrophils/100 WBC (Bld) 72.5 % High 47-70 [facility] Nucleated red blood cell per centageOrdered By: David Miramontes on 05-22-2024 Nucleated RBC/100 WBC (Bld) [Ratio] 0 % 0-5 [facility] Platelet countOrdered By: Mayra waynecarleen Miramontes on 05-22-2024 Platelets (Bld) [#/Vol] 179 10*3/uL 150-450 [facility] Potassium (Unsp spec) [Mass/ Vol]Ordered By: David Miramontes on 05-22-2024 Potassium [Moles/Vol] 3.3 mmol/L 3.3-5.1 [facility] Potassium measurement (mass/ volume)Ordered By: David Miramontes on 05-22-2024 Potassium (Unsp spec) [Mass/Vol] 3.3 mmol/L 3.3-5.1 [facility] RBC Auto (Bld) [#/Vol]Ordere d By: David Miramontes on 05-22-2024 RBC (Bld) [#/Vol] 4.08 10*6/uL Low 4.6-6.2 [facility] Serum creatinine measurement (mass/volume)Ordered By: David Miramontes on 05-22-2024 Creatinine [Mass/Vol] 1.94 mg/dL High 0.70-1.20 [facility] Serum globulin measurementOr dered By: David Miramontes on 05-22-2024 Globulin (S) [Mass/Vol] 3.2 g/dL 2.2-4.2 [facility] Serum glucose measurement (m ass/volume)Ordered By: David Miramontes on 05-22-2024 Glucose [Mass/Vol] 112 mg/dL High 70-99 [facility] Serum or plasma alanine grant otransferase (ALT) measurementOrdered By: David Miramontes on 05-22-2024 ALT [Catalytic activity/Vol] 8 U/L <47 [facility] Serum or plasma albumin siobhan urement (mass/volume)Ordered By: David Miramontes on 05-22-2024 Albumin [Mass/Vol] 3.5 g/dL 3.4-4.8 [facility] Serum or plasma albumin/glob ulin mass ratioOrdered By: David Miramontes on 05-22-2024 Albumin/Globulin [Mass ratio] 1.1 {ratio} 0.9-2.4 [facility] Serum or plasma alkaline deven sphatase measurementOrdered By: David Miramontes on 05-22-2024 ALP [Catalytic activity/Vol] 71 U/L 40-129 [facility] Serum or plasma calcium siobhan urement (mass/volume)Ordered By: David Miramontes on 05-22-2024 Calcium [Mass/Vol] 8.8 mg/dL 7.6-11.0 [facility] Serum or plasma urea nitroge n measurement (mass/volume)Ordered By: David Miramontes on 05-22-2024 Urea nitrogen [Mass/Vol] 15 mg/dL 4-19 [facility] Sodium levelOrdered By: Frandy Miramontes on 05-22-2024 Sodium [Moles/Vol] 141 mmol/L 133-145 [facility] Total proteinOrdered By: Lg Miramontes on 05-22-2024 Protein [Mass/Vol] 6.7 g/dL 5.9-8.4 [facility] White blood cell (WBC) count Ordered By: David Miramontes on 05-22-2024 WBC (Bld) [#/Vol] 9.0 10*3/uL 4.4-11.0 [facility] Bilirubin Test strip Ql (U)O rdered By: David Miramontes on 04-17-2024 Bilirubin Ql (U) 1 mg/dL High Negative [facility] Comment on above: COLOR OF URINE MAY A FFECT DIPSTICK RESULTS. Glucose Ql (U)Ordered By: Mayra Miramontes on 04-17-2024 Urine Glucose (UA) Normal mg/dl Normal [facility] Ketones Test strip Ql (U)Ord ered By: David Miramontes on 04-17-2024 Ketones Ql (U) 5 mg/dl High Negative [facility] Nitrite Test strip Ql (U)Ord ered By: David Miramontes on 04-17-2024 Nitrite Ql (U) Negative Negative [facility] Protein Test strip Ql (U)Ord ered By: David Miramontes on 04-17-2024 Protein Ql (U) 100 mg/dl High Negative [facility] Urine blood detectionOrdered By: David Miramontes on 04-17-2024 Urine Occult Blood 250 /ul High Negative [facility] Urine clarityOrdered By: Lg Mirmaontes on 04-17-2024 Clarity (U) Turbid Clear [facility] Urine color determinationOrd ered By: David Miramontes on 04-17-2024 Color (U) Kristina Yellow [facility] Urine cultureOrdered By: Lg Miramontes on 04-17-2024 Bacteria identified Cx Nom (U) Proteus mirabilis Abnormal [facility] Urine glucose detectionOrder ed By: David Miramontes on 04-17-2024 Glucose Ql (U) Normal mg/dl Normal [facility] Urine leukocyte esterase det ection by dipstickOrdered By: David Miramontes on 04-17-2024 Leukocyte esterase Test strip Ql (U) 100 /ul High Negative [facility] Urine pHOrdered By: Leo Miramontes on 04-17-2024 pH (U) 5.0 [pH] 5.0 - 8.0 [facility] Urine specific gravity measu rementOrdered By: David Miramontes on 04-17-2024 Specific gravity (U) [Rel density] 1.025 1.002-1.030 [facility] Urine urobilinogen measureme ntOrdered By: David Miramontes on 04-17-2024 Urobilinogen Ql (U) Normal mg/dl Normal [facility] Urobilinogen Ql (U)Ordered B y: David Miramontes on 04-17-2024 Urine Urobilinogen Normal mg/dl Normal [facility] Absolute lymphocyte countOrd ered By: David Miramontes on 04-13-2024 Lymphocytes Auto (Unsp spec) [#/Vol] 0.98 10*3/uL 0.83-4.51 [facility] Absolute neutrophil countOrd ered By: David Miramontes on 04-13-2024 Neutrophils (Bld) [#/Vol] 7.0 10*3/uL 2.0-7.7 [facility] Automated lymphocyte count a s percentage of total leukocytesOrdered By: David Miramontes on 04-13-2024 Lymphocytes/100 WBC Auto (Unsp spec) 11.0 % Low 19-41 [facility] Basophil percentageOrdered B y: David Miramontes on 04-13-2024 Basophils/100 WBC (Bld) 0.2 % 0-1 [facility] Eosinophil percentageOrdered By: David Guerrae on 04-13-2024 Eosinophils/100 WBC (Bld) 1.2 % 0-5 [facility] Erythrocyte distribution wid th (RBC) [Ratio]Ordered By: David Guerrae on 04-13-2024 Erythrocyte distribution width (RBC) [Entitic vol] 52.6 fL High 35.1-43.9 [facility] Erythrocyte distribution wid th ratioOrdered By: David Guerrae on 04-13-2024 Erythrocyte distribution width (RBC) [Ratio] 14.6 % 11.6-14.6 [facility] Erythrocyte distribution wid th standard deviationOrdered By: David Miramontes on 04-13-2024 Erythrocyte distribution width (RBC) [Ratio] 52.6 fl High 35.1-43.9 [facility] Hematocrit Auto (Bld) [Volum e fraction]Ordered By: David Miramontes on 04-13-2024 Hematocrit (Bld) [Volume fraction] 47.5 % 40-54 [facility] Hemoglobin measurementOrdere d By: Frandylockridgeingris Miramontes on 04-13-2024 Hemoglobin (Bld) [Mass/Vol] 15.1 g/dL 13.0-16.5 [facility] Immature granulocytes/100 WB C Auto (Bld)Ordered By: [facility] on 04-13-2024 Immature granulocytes/100 WBC (Bld) 0.300 % 0.0-0.9 [facility] Comment on above: IG% - Immature Granu locytes (promyelocytes, myelocytes and metamyelocytes) > 1% indicates that a LEFT SHIFT is Present. Lymphocytes Auto (Unsp spec) [#/Vol]Ordered By: [facility] on 04-13-2024 Lymphocytes (Bld) [#/Vol] 0.98 10*3/uL 0.83-4.51 [facility] Lymphocytes/100 WBC Auto (Un sp spec)Ordered By: waynelockridgeingris Miramontes on 04-13-2024 Lymphocytes/100 WBC (Bld) 11.0 % Low 19-41 [facility] MCV (mean corpuscular volume ) determinationOrdered By: David Miramontes on 04-13-2024 MCV (RBC) [Entitic vol] 98.3 fL High 80-94 [facility] Mean corpuscular hemoglobin (MCH) determinationOrdered By: [facility] on 04-13-2024 MCH (RBC) [Entitic mass] 31.3 pg 27.0-32.0 [facility] Mean corpuscular hemoglobin concentration (MCHC) determinationOrdered By: waynelockridgeingris Miramontes on 04-13-2024 MCHC (RBC) [Mass/Vol] 31.8 g/dL Low 32-36 [facility] Mean platelet volume determi nationOrdered By: David Miramontes on 04-13-2024 Platelet mean volume (Bld) [Entitic vol] 12.2 fL High 6.2-12.0 [facility] Monocyte percentageOrdered B y: Vickyingris Pinkamnatereza on 04-13-2024 Monocytes/100 WBC (Bld) 9.3 % 0-10 [facility] Neutrophil percentageOrdered By: Mayradanay Pinkamnatereza on 04-13-2024 Neutrophils/100 WBC (Bld) 78.0 % High 47-70 [facility] Nucleated red blood cell per centageOrdered By: danay Miramontes on 04-13-2024 Nucleated RBC/100 WBC (Bld) [Ratio] 0 % 0-5 [facility] Platelet countOrdered By: Mayra fawadingris Miramontes on 04-13-2024 Platelets (Bld) [#/Vol] 160 10*3/uL 150-450 [facility] RBC Auto (Bld) [#/Vol]Ordere d By: Frandyfelciiaingris Miramontes on 04-13-2024 RBC (Bld) [#/Vol] 4.83 10*6/uL 4.6-6.2 [facility] Serum or plasma uric acid me asurement (mass/volume)Ordered By: David Miramontes on 04-13-2024 Urate [Mass/Vol] 7.3 mg/dL High 3.5-7.2 [facility] Comment on above: The drugs N-Acetylcy steine and Metamizole may falsely depress this assay. White blood cell (WBC) count Ordered By: David Miramontes on 04-13-2024 WBC (Bld) [#/Vol] 8.9 10*3/uL 4.4-11.0 [facility] Bilirubin Test strip Ql (U)O rdered By: David Miramontes on 04-07-2024 Bilirubin Ql (U) Negative Negative [facility] Blood urea nitrogen (BUN)/cr eatinine ratioOrdered By: David Miramontes on 04-07-2024 Urea nitrogen/Creatinine [Mass ratio] 15.7 mg/mg 10-20 [facility] Carbon dioxide measurementOr dered By: David Miramontes on 04-07-2024 CO2 [Moles/Vol] 27.0 mmol/L 21.0-32.0 [facility] Chloride measurementOrdered By: David Miramontes on 04-07-2024 Chloride [Moles/Vol] 107 mmol/L 98-107 [facility] Estimated glomerular filtrat ion rate (GFR) AmericanOrdered By: David Miramontes on 04-07-2024 Estimated GFR (MDRD) Amer 69 mL/min >60 [facility] Comment on above: GFR Calc Glomerular filtration rate ( GFR) estimationOrdered By: David Miramontes on 04-07-2024 Estimated GFR (MDRD) Non-Af Amer 57 mL/min Low >60 [facility] Comment on above: Non- GFR Calc GFR/1.73 sq M.predicted among non-blacks MDRD (S/P/Bld) [Vol rate/Area] 57 mL/min/{1.73_m2} Low >60 [facility] Comment on above: Non- GFR Calc Glucose Ql (U)Ordered By: Mayra Miramontes on 04-07-2024 Urine Glucose (UA) Normal mg/dl Normal [facility] Glucose measurementOrdered B y: David Miramontes on 04-07-2024 Glucose [Mass/Vol] 80 mg/dL 74-106 [facility] Ketones Test strip Ql (U)Ord ered By: David Miramontes on 04-07-2024 Ketones Ql (U) Negative Negative [facility] Nitrite Test strip Ql (U)Ord ered By: David Miramontes on 04-07-2024 Nitrite Ql (U) Negative Negative [facility] Potassium measurementOrdered By: David Miramontes on 04-07-2024 Potassium [Moles/Vol] 3.8 mmol/L 3.5-5.1 [facility] Comment on above: Slight Hemolysis, Re sult may be falsely increased. Protein Test strip Ql (U)Ord ered By: David Miramontes on 04-07-2024 Protein Ql (U) 30 mg/dl High Negative [facility] Serum anion gap measurementO rdered By: David Miramontes on 04-07-2024 Anion gap [Moles/Vol] 9 mmol/L 5-15 [facility] Serum or plasma calcium siobhan urement (mass/volume)Ordered By: David Miramontes on 04-07-2024 Calcium [Mass/Vol] 8.9 mg/dL 8.5-10.1 [facility] Serum or plasma creatinine m easurement (mass/volume)Ordered By: David Miramontes on 04-07-2024 Creatinine [Mass/Vol] 1.27 mg/dL 0.70-1.30 [facility] Comment on above: The validity of the calculated GFR & GFRAA in patients over 70 years has not been determined. Clinical correlation is essential. Serum or plasma urea nitroge n measurement (mass/volume)Ordered By: David Miramontes on 04-07-2024 Urea nitrogen [Mass/Vol] 20 mg/dL High 7-18 [facility] Serum or plasma uric acid me asurement (mass/volume)Ordered By: David Miramontes on 04-07-2024 Urate [Mass/Vol] 7.7 mg/dL High 3.5-7.2 [facility] Comment on above: The drugs N-Acetylcy steine and Metamizole may falsely depress this assay. Sodium levelOrdered By: Frandy Miramontes on 04-07-2024 Sodium [Moles/Vol] 143 mmol/L 136-145 [facility] Urine blood detectionOrdered By: David Miramontes on 04-07-2024 Urine Occult Blood 250 /ul High Negative [facility] Urine clarityOrdered By: Lg Miramontes on 04-07-2024 Clarity (U) Clear Clear [facility] Urine color determinationOrd ered By: David Miramontes on 04-07-2024 Color (U) Straw Yellow [facility] Urine cultureOrdered By: Lg Miramontes on 04-07-2024 Bacteria identified Cx Nom (U) Negative Abnormal [facility] Urine glucose detectionOrder ed By: David Miramontes on 04-07-2024 Glucose Ql (U) Normal mg/dl Normal [facility] Urine leukocyte esterase det ection by dipstickOrdered By: David Miramontes on 04-07-2024 Leukocyte esterase Test strip Ql (U) 25 /ul High Negative [facility] Urine pHOrdered By: Leo Miramontes on 04-07-2024 pH (U) 6.5 [pH] 5.0 - 8.0 [facility] Urine specific gravity measu rementOrdered By: David Miramontes on 04-07-2024 Specific gravity (U) [Rel density] 1.005 1.002-1.030 [facility] Urine urobilinogen measureme ntOrdered By: David Miramontes on 04-07-2024 Urobilinogen Ql (U) Normal mg/dl Normal [facility] Urobilinogen Ql (U)Ordered B y: David Miramontes on 04-07-2024 Urine Urobilinogen Normal mg/dl Normal [facility] Absolute lymphocyte countOrd ered By: David Miramontes on 04-04-2024 Lymphocytes Auto (Unsp spec) [#/Vol] 0.82 10*3/uL Low 0.83-4.51 [facility] Absolute neutrophil countOrd ered By: David Miramontes on 04-04-2024 Neutrophils (Bld) [#/Vol] 11.6 10*3/uL High 2.0-7.7 [facility] Automated lymphocyte count a s percentage of total leukocytesOrdered By: David Miramontes on 04-04-2024 Lymphocytes/100 WBC Auto (Unsp spec) 5.9 % Low 19-41 [facility] Basophil percentageOrdered B y: David Miramontes on 04-04-2024 Basophils/100 WBC (Bld) 0.2 % 0-1 [facility] Blood urea nitrogen (BUN)/cr eatinine ratioOrdered By: David Miramontes on 04-04-2024 Urea nitrogen/Creatinine [Mass ratio] 9.6 mg/mg Low 10-20 [facility] Carbon dioxide measurementOr dered By: David Miramontes on 04-04-2024 CO2 [Moles/Vol] 26.0 mmol/L 21.0-32.0 [facility] Chloride measurementOrdered By: David Miramontes on 04-04-2024 Chloride [Moles/Vol] 105 mmol/L 98-107 [facility] Eosinophil percentageOrdered By: David Miramontes on 04-04-2024 Eosinophils/100 WBC (Bld) 0.0 % 0-5 [facility] Erythrocyte distribution wid th (RBC) [Ratio]Ordered By: David Miramontes on 04-04-2024 Erythrocyte distribution width (RBC) [Entitic vol] 55.2 fL High 35.1-43.9 [facility] Erythrocyte distribution wid th ratioOrdered By: David Miramontes on 04-04-2024 Erythrocyte distribution width (RBC) [Ratio] 15.2 % High 11.6-14.6 [facility] Erythrocyte distribution wid th standard deviationOrdered By: David Miramontes on 04-04-2024 Erythrocyte distribution width (RBC) [Ratio] 55.2 fl High 35.1-43.9 [facility] Estimated glomerular filtrat ion rate (GFR) AmericanOrdered By: David Miramontes on 04-04-2024 Estimated GFR (MDRD) Amer 47 mL/min Low >60 [facility] Comment on above: GFR Calc Glomerular filtration rate ( GFR) estimationOrdered By: David Miramontes on 04-04-2024 Estimated GFR (MDRD) Non-Af Amer 39 mL/min Low >60 [facility] Comment on above: Non- GFR Calc GFR/1.73 sq M.predicted among non-blacks MDRD (S/P/Bld) [Vol rate/Area] 39 mL/min/{1.73_m2} Low >60 [facility] Comment on above: Non- GFR Calc Glucose measurementOrdered B y: David Miramontes on 04-04-2024 Glucose [Mass/Vol] 119 mg/dL High 74-106 [facility] Comment on above: Fasting Glucose resu lt from 100 to 125 mg/dL suggests IMPAIRED HOMEOSTASIS per A.D.A. criteria. Hematocrit Auto (Bld) [Volum e fraction]Ordered By: David Miramontes on 04-04-2024 Hematocrit (Bld) [Volume fraction] 49.2 % 40-54 [facility] Hemoglobin measurementOrdere d By: David Miramontes on 04-04-2024 Hemoglobin (Bld) [Mass/Vol] 15.9 g/dL 13.0-16.5 [facility] Immature granulocytes/100 WB C Auto (Bld)Ordered By: David Miramontes on 04-04-2024 Immature granulocytes/100 WBC (Bld) 0.500 % 0.0-0.9 [facility] Comment on above: IG% - Immature Granu locytes (promyelocytes, myelocytes and metamyelocytes) > 1% indicates that a LEFT SHIFT is Present. Lymphocytes Auto (Unsp spec) [#/Vol]Ordered By: waynelockridgeingris Miramontes on 04-04-2024 Lymphocytes (Bld) [#/Vol] 0.82 10*3/uL Low 0.83-4.51 [facility] Lymphocytes/100 WBC Auto (Un sp spec)Ordered By: danay Miramontes on 04-04-2024 Lymphocytes/100 WBC (Bld) 5.9 % Low 19-41 [facility] MCV (mean corpuscular volume ) determinationOrdered By: David Miramontes on 04-04-2024 MCV (RBC) [Entitic vol] 98.4 fL High 80-94 [facility] Mean corpuscular hemoglobin (MCH) determinationOrdered By: David Miramontes on 04-04-2024 MCH (RBC) [Entitic mass] 31.8 pg 27.0-32.0 [facility] Mean corpuscular hemoglobin concentration (MCHC) determinationOrdered By: danay Miramontes on 04-04-2024 MCHC (RBC) [Mass/Vol] 32.3 g/dL 32-36 [facility] Mean platelet volume determi nationOrdered By: waynelockridgeingris Miramontes on 04-04-2024 Platelet mean volume (Bld) [Entitic vol] 12.5 fL High 6.2-12.0 [facility] Monocyte percentageOrdered B y: Frandyfeliciaingris Pinkamnatereza on 04-04-2024 Monocytes/100 WBC (Bld) 9.9 % 0-10 [facility] Neutrophil percentageOrdered By: Mayrawaynefeliciaingris Pinkamnatereza on 04-04-2024 Neutrophils/100 WBC (Bld) 83.5 % High 47-70 [facility] Nucleated red blood cell per centageOrdered By: David Pinkamnatereza on 04-04-2024 Nucleated RBC/100 WBC (Bld) [Ratio] 0 % 0-5 [facility] Platelet countOrdered By: Mayra fawadingris Miramontes on 04-04-2024 Platelets (Bld) [#/Vol] 209 10*3/uL 150-450 [facility] Potassium measurementOrdered By: David Miramontes on 04-04-2024 Potassium [Moles/Vol] 4.2 mmol/L 3.5-5.1 [facility] Comment on above: Slight Hemolysis, Re sult may be falsely increased. RBC Auto (Bld) [#/Vol]Ordere d By: David Miramontes on 04-04-2024 RBC (Bld) [#/Vol] 5.00 10*6/uL 4.6-6.2 [facility] Serum anion gap measurementO rdered By: David Miramontes on 04-04-2024 Anion gap [Moles/Vol] 8 mmol/L 5-15 [facility] Serum or plasma calcium siobhan urement (mass/volume)Ordered By: David Miramontes on 04-04-2024 Calcium [Mass/Vol] 9.6 mg/dL 8.5-10.1 [facility] Serum or plasma creatinine m easurement (mass/volume)Ordered By: David Miramontes on 04-04-2024 Creatinine [Mass/Vol] 1.77 mg/dL High 0.70-1.30 [facility] Comment on above: The validity of the calculated GFR & GFRAA in patients over 70 years has not been determined. Clinical correlation is essential. Serum or plasma urea nitroge n measurement (mass/volume)Ordered By: David Miramontes on 04-04-2024 Urea nitrogen [Mass/Vol] 17 mg/dL 7-18 [facility] Sodium levelOrdered By: Frandy Miramontes on 04-04-2024 Sodium [Moles/Vol] 139 mmol/L 136-145 [facility] White blood cell (WBC) count Ordered By: David Miramontes on 04-04-2024 WBC (Bld) [#/Vol] 13.9 10*3/uL High 4.4-11.0 [facility] Absolute lymphocyte countOrd ered By: David Miramontes on 04-06-2023 Lymphocytes Auto (Unsp spec) [#/Vol] 1.24 10*3/uL 0.83-4.51 [facility] Automated lymphocyte count a s percentage of total leukocytesOrdered By: David Joesphiman on 04-06-2023 Lymphocytes/100 WBC Auto (Unsp spec) 18.7 % 19-41 [facility] Basophil percentageOrdered B y: David Miramontes on 04-06-2023 Basophils/100 WBC (Bld) 0.5 % 0-1 [facility] Chloride [Moles/Vol] 109 mmol/L 98-107 [facility] Eosinophils/100 WBC (Bld) 1.7 % 0-5 [facility] Glucose [Mass/Vol] 90 mg/dL 74-106 [facility] Hemoglobin (Bld) [Mass/Vol] 15.4 g/dL 13.0-16.5 [facility] Monocytes/100 WBC (Bld) 9.4 % 0-10 [facility] Neutrophils (Bld) [#/Vol] 4.6 10*3/uL 2.0-7.7 [facility] Neutrophils/100 WBC (Bld) 69.2 % 47-70 [facility] Potassium [Moles/Vol] 3.7 mmol/L 3.5-5.1 [facility] Sodium [Moles/Vol] 141 mmol/L 136-145 [facility] WBC (Bld) [#/Vol] 6.6 10*3/uL 4.4-11.0 [facility] Determination of erythrocyte mean corpuscular volume (MCV)Ordered By: Dvaid Miramontes on 04-06-2023 MCV (RBC) [Entitic vol] 98.2 fL 80-94 [facility] Erythrocyte distribution wid th ratioOrdered By: [facility] on 04-06-2023 Erythrocyte distribution width (RBC) [Ratio] 14.4 % 11.6-14.6 [facility] Erythrocyte distribution wid th standard deviationOrdered By: [facility] Joesphtereza on 04-06-2023 Erythrocyte distribution width (RBC) [Entitic vol] 51.7 fL 35.1-43.9 [facility] Hematocrit Auto (Bld) [Volum e fraction]Ordered By: [facility] Joesphtereza on 04-06-2023 Hematocrit (Bld) [Volume fraction] 49.2 % 40-54 [facility] Immature granulocytes/100 WB C Auto (Bld)Ordered By: [facility] Joesphtereza on 04-06-2023 Immature granulocytes/100 WBC (Bld) 0.500 % 0.0-0.9 [facility] Comment on above: IG% - Immature Granu locytes (promyelocytes, myelocytes and metamyelocytes) > 1% indicates that a LEFT SHIFT is Present. Laboratory - Chemistry and C hemistry - challengeOrdered By: waynelockridgeingris Miramontes on 04-06-2023 CO2 [Moles/Vol] 27.0 mmol/L 21.0-32.0 [facility] Urea nitrogen/Creatinine [Mass ratio] 15.0 mg/mg 10-20 [facility] Laboratory - Hematology and Cell countsOrdered By: [facility] Pinktereza on 04-06-2023 MCH (RBC) [Entitic mass] 30.7 pg 27.0-32.0 [facility] MCHC (RBC) [Mass/Vol] 31.3 g/dL 32-36 [facility] Nucleated RBC/100 WBC (Bld) [Ratio] 0 % 0-5 [facility] Platelet mean volume (Bld) [Entitic vol] 11.5 fL 6.2-12.0 [facility] Platelets (Bld) [#/Vol] 189 10*3/uL 150-450 [facility] No Panel InformationOrdered By: [facility] on 04-06-2023 Estimated GFR (MDRD) Amer 85 mL/min >60 [facility] Comment on above: GFR Calc Estimated GFR (MDRD) Non-Af Amer 70 mL/min >60 [facility] Comment on above: Non- GFR Calc RBC Auto (Bld) [#/Vol]Ordere d By: David Miramontes on 04-06-2023 RBC (Bld) [#/Vol] 5.01 10*6/uL 4.6-6.2 [facility] Serum or plasma calcium siobhan urement (mass/volume)Ordered By: David Miramontes on 04-06-2023 Calcium [Mass/Vol] 9.1 mg/dL 8.5-10.1 [facility] Serum or plasma creatinine m easurement (mass/volume)Ordered By: David Miramontes on 04-06-2023 Creatinine [Mass/Vol] 1.07 mg/dL 0.70-1.30 [facility] Comment on above: The validity of the calculated GFR & GFRAA in patients over 70 years has not been determined. Clinical correlation is essential. Serum or plasma urea nitroge n measurement (mass/volume)Ordered By: David Miramontes on 04-06-2023 Urea nitrogen [Mass/Vol] 16 mg/dL 7-18 [facility] Thin prep Papanicolaou smear with manual screeningOrdered By: David Miramontes on 04-06-2023 Thin prep Papanicolaou smear with manual screening 5 5-15 [facility] Absolute lymphocyte countOrd ered By: David Miramontes on 12-30-2022 Lymphocytes Auto (Unsp spec) [#/Vol] 1.16 10*3/uL 0.83-4.51 [facility] Basophil percentageOrdered B y: David Miramontes on 12-30-2022 Basophils/100 WBC (Bld) 0.4 % 0-1 [facility] Chloride [Moles/Vol] 109 mmol/L 98-107 [facility] Eosinophils/100 WBC (Bld) 1.3 % 0-5 [facility] Glucose [Mass/Vol] 84 mg/dL 74-106 [facility] Neutrophils (Bld) [#/Vol] 5.4 10*3/uL 2.0-7.7 [facility] Neutrophils/100 WBC (Bld) 72.7 % 47-70 [facility] Potassium [Moles/Vol] 3.6 mmol/L 3.5-5.1 [facility] Sodium [Moles/Vol] 142 mmol/L 136-145 [facility] WBC (Bld) [#/Vol] 7.4 10*3/uL 4.4-11.0 [facility] Blood erythrocytes count (nu mber/volume)Ordered By: David Miramontes on 12-30-2022 RBC (Bld) [#/Vol] 4.15 10*6/uL 4.6-6.2 [facility] Blood hemoglobin measurement (mass/volume)Ordered By: David Miramontes on 12-30-2022 Hemoglobin (Bld) [Mass/Vol] 13.0 g/dL 13.0-16.5 [facility] Blood lymphocytes/100 leukoc ytesOrdered By: David Miramontes on 12-30-2022 Lymphocytes/100 WBC (Bld) 15.6 % 19-41 [facility] Blood monocytes/100 leukocyt esOrdered By: Dvaid Miramontes on 12-30-2022 Monocytes/100 WBC (Bld) 9.6 % 0-10 [facility] Blood platelet mean volumeOr dered By: David Miramontes on 12-30-2022 Platelet mean volume (Bld) [Entitic vol] 11.6 fL 6.2-12.0 [facility] Determination of erythrocyte mean corpuscular volume (MCV)Ordered By: David Miramontes on 12-30-2022 MCV (RBC) [Entitic vol] 99.5 fL 80-94 [facility] Hematocrit Auto (Bld) [Volum e fraction]Ordered By: David Miramontes on 12-30-2022 Hematocrit (Bld) [Volume fraction] 41.3 % 40-54 [facility] Laboratory - Chemistry and C hemistry - challengeOrdered By: David Miramontes on 12-30-2022 CO2 [Moles/Vol] 27.0 mmol/L 21.0-32.0 [facility] Urea nitrogen/Creatinine [Mass ratio] 11.6 mg/mg 10-20 [facility] Laboratory - Hematology and Cell countsOrdered By: David Miramontes on 12-30-2022 Erythrocyte distribution width (RBC) [Entitic vol] 51.5 fL 35.1-43.9 [facility] Erythrocyte distribution width (RBC) [Ratio] 14.2 % 11.6-14.6 [facility] Immature granulocytes/100 WBC (Bld) 0.400 % 0.0-0.9 [facility] Comment on above: IG% - Immature Granu locytes (promyelocytes, myelocytes and metamyelocytes) > 1% indicates that a LEFT SHIFT is Present. MCH (RBC) [Entitic mass] 31.3 pg 27.0-32.0 [facility] Nucleated RBC/100 WBC (Bld) [Ratio] 0 % 0-5 [facility] MCHC Auto (RBC) [Mass/Vol]Or dered By: David Miramontes on 12-30-2022 MCHC (RBC) [Mass/Vol] 31.5 g/dL 32-36 [facility] No Panel InformationOrdered By: David Miramontes on 12-30-2022 Estimated GFR (MDRD) Amer 108 mL/min >60 [facility] Comment on above: GFR Calc Estimated GFR (MDRD) Non-Af Amer 90 mL/min >60 [facility] Comment on above: Non- GFR Calc Platelets bldOrdered By: Lg Miramontes on 12-30-2022 Platelets (Bld) [#/Vol] 165 10*3/uL 150-450 [facility] Serum or plasma calcium siobhan urement (mass/volume)Ordered By: David Miramontes on 12-30-2022 Calcium [Mass/Vol] 8.3 mg/dL 8.5-10.1 [facility] Serum or plasma creatinine m easurement (mass/volume)Ordered By: David Miramontes on 12-30-2022 Creatinine [Mass/Vol] 0.86 mg/dL 0.70-1.30 [facility] Comment on above: The validity of the calculated GFR & GFRAA in patients over 70 years has not been determined. Clinical correlation is essential. Serum or plasma urea nitroge n measurement (mass/volume)Ordered By: David Miramontes on 12-30-2022 Urea nitrogen [Mass/Vol] 10 mg/dL 7-18 [facility] Thin prep Papanicolaou smear with manual screeningOrdered By: David Miramontes on 12-30-2022 Thin prep Papanicolaou smear with manual screening 6 5-15 [facility] Absolute lymphocyte countOrd ered By: David Miramontes on 09-29-2022 Lymphocytes Auto (Unsp spec) [#/Vol] 1.19 10*3/uL 0.83-4.51 [facility] Basophil percentageOrdered B y: David Miramontes on 09-29-2022 Basophils/100 WBC (Bld) 0.2 % 0-1 [facility] Chloride [Moles/Vol] 109 mmol/L 98-107 [facility] Eosinophils/100 WBC (Bld) 0.1 % 0-5 [facility] Glucose [Mass/Vol] 100 mg/dL 74-106 [facility] Comment on above: Fasting Glucose resu lt from 100 to 125 mg/dL suggests IMPAIRED HOMEOSTASIS per A.D.A. criteria. Neutrophils (Bld) [#/Vol] 8.4 10*3/uL 2.0-7.7 [facility] Neutrophils/100 WBC (Bld) 80.3 % 47-70 [facility] Potassium [Moles/Vol] 4.0 mmol/L 3.5-5.1 [facility] Sodium [Moles/Vol] 141 mmol/L 136-145 [facility] WBC (Bld) [#/Vol] 10.4 10*3/uL 4.4-11.0 [facility] Blood erythrocytes count (nu mber/volume)Ordered By: David Miramontes on 09-29-2022 RBC (Bld) [#/Vol] 4.62 10*6/uL 4.6-6.2 [facility] Blood hemoglobin measurement (mass/volume)Ordered By: David Miramontes on 09-29-2022 Hemoglobin (Bld) [Mass/Vol] 14.6 g/dL 13.0-16.5 [facility] Blood lymphocytes/100 leukoc ytesOrdered By: David Miramontes on 09-29-2022 Lymphocytes/100 WBC (Bld) 11.5 % 19-41 [facility] Blood monocytes/100 leukocyt esOrdered By: David Miramontes on 09-29-2022 Monocytes/100 WBC (Bld) 7.3 % 0-10 [facility] Blood platelet mean volumeOr dered By: David Miramontes on 09-29-2022 Platelet mean volume (Bld) [Entitic vol] 11.5 fL 6.2-12.0 [facility] Determination of erythrocyte mean corpuscular volume (MCV)Ordered By: David Miramontes on 09-29-2022 MCV (RBC) [Entitic vol] 99.4 fL 80-94 [facility] Hematocrit Auto (Bld) [Volum e fraction]Ordered By: David Miramontes on 09-29-2022 Hematocrit (Bld) [Volume fraction] 45.9 % 40-54 [facility] Laboratory - Chemistry and C hemistry - challengeOrdered By: David Miramontes on 09-29-2022 CO2 [Moles/Vol] 28.0 mmol/L 21.0-32.0 [facility] Urea nitrogen/Creatinine [Mass ratio] 13.8 mg/mg 10-20 [facility] Laboratory - Hematology and Cell countsOrdered By: David Miramontes on 09-29-2022 Erythrocyte distribution width (RBC) [Entitic vol] 51.7 fL 35.1-43.9 [facility] Erythrocyte distribution width (RBC) [Ratio] 14.2 % 11.6-14.6 [facility] Immature granulocytes/100 WBC (Bld) 0.600 % 0.0-0.9 [facility] Comment on above: IG% - Immature Granu locytes (promyelocytes, myelocytes and metamyelocytes) > 1% indicates that a LEFT SHIFT is Present. MCH (RBC) [Entitic mass] 31.6 pg 27.0-32.0 [facility] Nucleated RBC/100 WBC (Bld) [Ratio] 0 % 0-5 [facility] MCHC Auto (RBC) [Mass/Vol]Or dered By: David Miramontes on 09-29-2022 MCHC (RBC) [Mass/Vol] 31.8 g/dL 32-36 [facility] No Panel InformationOrdered By: David Miramontes on 09-29-2022 Estimated GFR (MDRD) Amer 98 mL/min >60 [facility] Comment on above: GFR Calc Estimated GFR (MDRD) Non-Af Amer 81 mL/min >60 [facility] Comment on above: Non- GFR Calc Platelets bldOrdered By: Lg Miramontes on 09-29-2022 Platelets (Bld) [#/Vol] 185 10*3/uL 150-450 [facility] Serum or plasma calcium siobhan urement (mass/volume)Ordered By: David Miramontes on 09-29-2022 Calcium [Mass/Vol] 8.9 mg/dL 8.5-10.1 [facility] Serum or plasma creatinine m easurement (mass/volume)Ordered By: David Miramontes on 09-29-2022 Creatinine [Mass/Vol] 0.94 mg/dL 0.70-1.30 [facility] Comment on above: The validity of the calculated GFR & GFRAA in patients over 70 years has not been determined. Clinical correlation is essential. Serum or plasma urea nitroge n measurement (mass/volume)Ordered By: David Miramontes on 09-29-2022 Urea nitrogen [Mass/Vol] 13 mg/dL 7-18 [facility] Thin prep Papanicolaou smear with manual screeningOrdered By: David Miramontes on 09-29-2022 Thin prep Papanicolaou smear with manual screening 4 5-15 [facility] Absolute lymphocyte countOrd ered By: David Miramontes on 06-29-2022 Lymphocytes Auto (Unsp spec) [#/Vol] 1.43 10*3/uL 0.83-4.51 [facility] Basophil percentageOrdered B y: David Miramontes on 06-29-2022 Basophils/100 WBC (Bld) 0.6 % 0-1 [facility] Chloride [Moles/Vol] 107 mmol/L 98-107 [facility] Eosinophils/100 WBC (Bld) 1.5 % 0-5 [facility] Glucose [Mass/Vol] 85 mg/dL 74-106 [facility] Neutrophils (Bld) [#/Vol] 4.4 10*3/uL 2.0-7.7 [facility] Neutrophils/100 WBC (Bld) 65.4 % 47-70 [facility] Potassium [Moles/Vol] 3.6 mmol/L 3.5-5.1 [facility] Sodium [Moles/Vol] 140 mmol/L 136-145 [facility] WBC (Bld) [#/Vol] 6.7 10*3/uL 4.4-11.0 [facility] Blood erythrocytes count (nu mber/volume)Ordered By: David Miramontes on 06-29-2022 RBC (Bld) [#/Vol] 4.55 10*6/uL 4.6-6.2 [facility] Blood hemoglobin measurement (mass/volume)Ordered By: David Miramontes on 06-29-2022 Hemoglobin (Bld) [Mass/Vol] 14.5 g/dL 13.0-16.5 [facility] Blood lymphocytes/100 leukoc ytesOrdered By: David Miramontes on 06-29-2022 Lymphocytes/100 WBC (Bld) 21.5 % 19-41 [facility] Blood monocytes/100 leukocyt esOrdered By: David Miramontes on 06-29-2022 Monocytes/100 WBC (Bld) 10.7 % 0-10 [facility] Blood platelet mean volumeOr dered By: David Miramontes on 06-29-2022 Platelet mean volume (Bld) [Entitic vol] 11.2 fL 6.2-12.0 [facility] Determination of erythrocyte mean corpuscular volume (MCV)Ordered By: David Miramontes on 06-29-2022 MCV (RBC) [Entitic vol] 98.9 fL 80-94 [facility] Hematocrit Auto (Bld) [Volum e fraction]Ordered By: David Miramontes on 06-29-2022 Hematocrit (Bld) [Volume fraction] 45.0 % 40-54 [facility] Laboratory - Chemistry and C hemistry - challengeOrdered By: David Miramontes on 06-29-2022 CO2 [Moles/Vol] 30.0 mmol/L 21.0-32.0 [facility] Urea nitrogen/Creatinine [Mass ratio] 13.6 mg/mg 10-20 [facility] Laboratory - Hematology and Cell countsOrdered By: David Miramontes on 06-29-2022 Erythrocyte distribution width (RBC) [Entitic vol] 51.6 fL 35.1-43.9 [facility] Erythrocyte distribution width (RBC) [Ratio] 14.3 % 11.6-14.6 [facility] Immature granulocytes/100 WBC (Bld) 0.300 % 0.0-0.9 [facility] Comment on above: IG% - Immature Granu locytes (promyelocytes, myelocytes and metamyelocytes) > 1% indicates that a LEFT SHIFT is Present. MCH (RBC) [Entitic mass] 31.9 pg 27.0-32.0 [facility] Nucleated RBC/100 WBC (Bld) [Ratio] 0 % 0-5 [facility] MCHC Auto (RBC) [Mass/Vol]Or dered By: David Miramontes on 06-29-2022 MCHC (RBC) [Mass/Vol] 32.2 g/dL 32-36 [facility] No Panel InformationOrdered By: David Miramontes on 06-29-2022 Estimated GFR (MDRD) Amer 89 mL/min >60 [facility] Comment on above: GFR Calc Estimated GFR (MDRD) Non-Af Amer 73 mL/min >60 [facility] Comment on above: Non- GFR Calc Platelets bldOrdered By: Lg Miramontes on 06-29-2022 Platelets (Bld) [#/Vol] 161 10*3/uL 150-450 [facility] Serum or plasma calcium siobhan urement (mass/volume)Ordered By: David Miramontes on 06-29-2022 Calcium [Mass/Vol] 8.7 mg/dL 8.5-10.1 [facility] Serum or plasma creatinine m easurement (mass/volume)Ordered By: David Miramontes on 06-29-2022 Creatinine [Mass/Vol] 1.03 mg/dL 0.70-1.30 [facility] Comment on above: The validity of the calculated GFR & GFRAA in patients over 70 years has not been determined. Clinical correlation is essential. Serum or plasma urea nitroge n measurement (mass/volume)Ordered By: David Miramontes on 06-29-2022 Urea nitrogen [Mass/Vol] 14 mg/dL 7-18 [facility] Thin prep Papanicolaou smear with manual screeningOrdered By: [facility] on 06-29-2022 Thin prep Papanicolaou smear with manual screening 3 5-15 [facility] Absolute lymphocyte countOrd ered By: waynelockridgeingris Pinktereza on 04-01-2022 Lymphocytes Auto (Unsp spec) [#/Vol] 1.25 10*3/uL 0.83-4.51 [facility] Basophil percentageOrdered B y: David Miramontes on 04-01-2022 Basophils/100 WBC (Bld) 0.4 % 0-1 [facility] Chloride [Moles/Vol] 108 mmol/L 98-107 [facility] Eosinophils/100 WBC (Bld) 1.5 % 0-5 [facility] Glucose [Mass/Vol] 106 mg/dL 74-106 [facility] Comment on above: Fasting Glucose resu lt from 100 to 125 mg/dL suggests IMPAIRED HOMEOSTASIS per A.D.A. criteria. Neutrophils (Bld) [#/Vol] 4.7 10*3/uL 2.0-7.7 [facility] Neutrophils/100 WBC (Bld) 69.1 % 47-70 [facility] Potassium [Moles/Vol] 3.6 mmol/L 3.5-5.1 [facility] Sodium [Moles/Vol] 143 mmol/L 136-145 [facility] WBC (Bld) [#/Vol] 6.8 10*3/uL 4.4-11.0 [facility] Blood erythrocytes count (nu mber/volume)Ordered By: David Miramontes on 04-01-2022 RBC (Bld) [#/Vol] 4.69 10*6/uL 4.6-6.2 [facility] Blood hemoglobin measurement (mass/volume)Ordered By: David Miramontes on 04-01-2022 Hemoglobin (Bld) [Mass/Vol] 14.8 g/dL 13.0-16.5 [facility] Blood lymphocytes/100 leukoc ytesOrdered By: David Miramontes on 04-01-2022 Lymphocytes/100 WBC (Bld) 18.5 % 19-41 [facility] Blood monocytes/100 leukocyt esOrdered By: David Miramontes on 04-01-2022 Monocytes/100 WBC (Bld) 10.2 % 0-10 [facility] Blood platelet mean volumeOr dered By: David Miramontes on 04-01-2022 Platelet mean volume (Bld) [Entitic vol] 11.5 fL 6.2-12.0 [facility] Determination of erythrocyte mean corpuscular volume (MCV)Ordered By: David Miramontes on 04-01-2022 MCV (RBC) [Entitic vol] 97.0 fL 80-94 [facility] Hematocrit Auto (Bld) [Volum e fraction]Ordered By: David Miramontes on 04-01-2022 Hematocrit (Bld) [Volume fraction] 45.5 % 40-54 [facility] Laboratory - Chemistry and C hemistry - challengeOrdered By: David Miramontes on 04-01-2022 CO2 [Moles/Vol] 29.0 mmol/L 21.0-32.0 [facility] Urea nitrogen/Creatinine [Mass ratio] 13.0 mg/mg 10-20 [facility] Laboratory - Hematology and Cell countsOrdered By: aDvid Miramontes on 04-01-2022 Erythrocyte distribution width (RBC) [Entitic vol] 51.1 fL 35.1-43.9 [facility] Erythrocyte distribution width (RBC) [Ratio] 14.4 % 11.6-14.6 [facility] Immature granulocytes/100 WBC (Bld) 0.300 % 0.0-0.9 [facility] Comment on above: IG% - Immature Granu locytes (promyelocytes, myelocytes and metamyelocytes) > 1% indicates that a LEFT SHIFT is Present. MCH (RBC) [Entitic mass] 31.6 pg 27.0-32.0 [facility] Nucleated RBC/100 WBC (Bld) [Ratio] 0 % 0-5 [facility] MCHC Auto (RBC) [Mass/Vol]Or dered By: David Miramontes on 04-01-2022 MCHC (RBC) [Mass/Vol] 32.5 g/dL 32-36 [facility] No Panel InformationOrdered By: David Miramontes on 04-01-2022 Estimated GFR (MDRD) Amer 92 mL/min >60 [facility] Comment on above: GFR Calc Estimated GFR (MDRD) Non-Af Amer 76 mL/min >60 [facility] Comment on above: Non- GFR Calc Platelets bldOrdered By: Lg Miramontes on 04-01-2022 Platelets (Bld) [#/Vol] 167 10*3/uL 150-450 [facility] Serum or plasma calcium siobhan urement (mass/volume)Ordered By: David Miramontes on 04-01-2022 Calcium [Mass/Vol] 9.1 mg/dL 8.5-10.1 [facility] Serum or plasma creatinine m easurement (mass/volume)Ordered By: David Miramontes on 04-01-2022 Creatinine [Mass/Vol] 1.00 mg/dL 0.70-1.30 [facility] Comment on above: The validity of the calculated GFR & GFRAA in patients over 70 years has not been determined. Clinical correlation is essential. Serum or plasma urea nitroge n measurement (mass/volume)Ordered By: David Miramontes on 04-01-2022 Urea nitrogen [Mass/Vol] 13 mg/dL 7-18 [facility] Thin prep Papanicolaou smear with manual screeningOrdered By: David Miramontes on 04-01-2022 Thin prep Papanicolaou smear with manual screening 6 5-15 [facility] Absolute lymphocyte countOrd ered By: Jhonny Tomas on 01-07-2022 Lymphocytes Auto (Unsp spec) [#/Vol] 1.54 10*3/uL 0.83-4.51 [facility] Basophil percentageOrdered B y: Jhonny Tomas on 01-07-2022 Basophils/100 WBC (Bld) 0.3 % 0-1 [facility] Chloride [Moles/Vol] 104 mmol/L 98-107 [facility] Eosinophils/100 WBC (Bld) 1.9 % 0-5 [facility] Glucose [Mass/Vol] 89 mg/dL 74-106 [facility] Neutrophils (Bld) [#/Vol] 4.8 10*3/uL 2.0-7.7 [facility] Neutrophils/100 WBC (Bld) 66.5 % 47-70 [facility] Potassium [Moles/Vol] 4.1 mmol/L 3.5-5.1 [facility] Sodium [Moles/Vol] 141 mmol/L 136-145 [facility] WBC (Bld) [#/Vol] 7.2 10*3/uL 4.4-11.0 [facility] Blood erythrocytes count (nu mber/volume)Ordered By: Jhonny Tomas on 01-07-2022 RBC (Bld) [#/Vol] 4.80 10*6/uL 4.6-6.2 [facility] Blood hemoglobin measurement (mass/volume)Ordered By: Jhonny Tomas on 01-07-2022 Hemoglobin (Bld) [Mass/Vol] 15.2 g/dL 13.0-16.5 [facility] Blood lymphocytes/100 leukoc ytesOrdered By: Jhonny Tomas on 01-07-2022 Lymphocytes/100 WBC (Bld) 21.3 % 19-41 [facility] Blood monocytes/100 leukocyt esOrdered By: Jhonny Tomas on 01-07-2022 Monocytes/100 WBC (Bld) 9.7 % 0-10 [facility] Blood platelet mean volumeOr dered By: Jhonny Tomas on 01-07-2022 Platelet mean volume (Bld) [Entitic vol] 11.2 fL 6.2-12.0 [facility] Determination of erythrocyte mean corpuscular volume (MCV)Ordered By: Jhonny Tomas on 01-07-2022 MCV (RBC) [Entitic vol] 97.3 fL 80-94 [facility] Hematocrit Auto (Bld) [Volum e fraction]Ordered By: Jhonny Tomas on 01-07-2022 Hematocrit (Bld) [Volume fraction] 46.7 % 40-54 [facility] Laboratory - Chemistry and C hemistry - challengeOrdered By: Jhonny Tomas on 01-07-2022 CO2 [Moles/Vol] 29.0 mmol/L 21.0-32.0 [facility] Urea nitrogen/Creatinine [Mass ratio] 11.4 mg/mg 10-20 [facility] Laboratory - Hematology and Cell countsOrdered By: Jhonny Tomas on 01-07-2022 Erythrocyte distribution width (RBC) [Entitic vol] 52.0 fL 35.1-43.9 [facility] Erythrocyte distribution width (RBC) [Ratio] 14.5 % 11.6-14.6 [facility] Immature granulocytes/100 WBC (Bld) 0.300 % 0.0-0.9 [facility] Comment on above: IG% - Immature Granu locytes (promyelocytes, myelocytes and metamyelocytes) > 1% indicates that a LEFT SHIFT is Present. MCH (RBC) [Entitic mass] 31.7 pg 27.0-32.0 [facility] Nucleated RBC/100 WBC (Bld) [Ratio] 0 % 0-5 [facility] MCHC Auto (RBC) [Mass/Vol]Or dered By: Jhonny Tomas on 01-07-2022 MCHC (RBC) [Mass/Vol] 32.5 g/dL 32-36 [facility] No Panel InformationOrdered By: Jhonny Tomas on 01-07-2022 Estimated GFR (MDRD) Amer 79 mL/min >60 [facility] Comment on above: GFR Calc Estimated GFR (MDRD) Non-Af Amer 65 mL/min >60 [facility] Comment on above: Non- GFR Calc Platelets bldOrdered By: Joao Tomas on 01-07-2022 Platelets (Bld) [#/Vol] 192 10*3/uL 150-450 [facility] Serum or plasma calcium siobhan urement (mass/volume)Ordered By: Jhonny Tomas on 01-07-2022 Calcium [Mass/Vol] 8.8 mg/dL 8.5-10.1 [facility] Serum or plasma creatinine m easurement (mass/volume)Ordered By: Jhonny Tomas on 01-07-2022 Creatinine [Mass/Vol] 1.14 mg/dL 0.70-1.30 [facility] Comment on above: The validity of the calculated GFR & GFRAA in patients over 70 years has not been determined. Clinical correlation is essential. Serum or plasma urea nitroge n measurement (mass/volume)Ordered By: Jhonny Tomas on 01-07-2022 Urea nitrogen [Mass/Vol] 13 mg/dL 7-18 [facility] Thin prep Papanicolaou smear with manual screeningOrdered By: Jhonny Tomas on 01-07-2022 Thin prep Papanicolaou smear with manual screening 8 5-15 [facility] Absolute lymphocyte countOrd ered By: Jhonny Tomas on 12-24-2021 Lymphocytes Auto (Unsp spec) [#/Vol] 1.60 10*3/uL 0.83-4.51 [facility] Basophil percentageOrdered B y: Jhonny Tomas on 12-24-2021 Basophils/100 WBC (Bld) 0.4 % 0-1 [facility] Chloride [Moles/Vol] 109 mmol/L 98-107 [facility] Eosinophils/100 WBC (Bld) 1.5 % 0-5 [facility] Glucose [Mass/Vol] 93 mg/dL 74-106 [facility] Neutrophils (Bld) [#/Vol] 4.8 10*3/uL 2.0-7.7 [facility] Neutrophils/100 WBC (Bld) 66.8 % 47-70 [facility] Potassium [Moles/Vol] 4.0 mmol/L 3.5-5.1 [facility] Comment on above: Slight Hemolysis, Re sult may be falsely increased. Sodium [Moles/Vol] 140 mmol/L 136-145 [facility] WBC (Bld) [#/Vol] 7.2 10*3/uL 4.4-11.0 [facility] Blood erythrocytes count (nu mber/volume)Ordered By: Jhonny Tomas on 12-24-2021 RBC (Bld) [#/Vol] 4.49 10*6/uL 4.6-6.2 [facility] Blood hemoglobin measurement (mass/volume)Ordered By: Jhonny Tomas on 12-24-2021 Hemoglobin (Bld) [Mass/Vol] 14.5 g/dL 13.0-16.5 [facility] Blood lymphocytes/100 leukoc ytesOrdered By: Jhonny Tomas on 12-24-2021 Lymphocytes/100 WBC (Bld) 22.2 % 19-41 [facility] Blood monocytes/100 leukocyt esOrdered By: Jhonny Tomas on 12-24-2021 Monocytes/100 WBC (Bld) 9.0 % 0-10 [facility] Blood platelet mean volumeOr dered By: Jhonny Tomas on 12-24-2021 Platelet mean volume (Bld) [Entitic vol] 11.2 fL 6.2-12.0 [facility] Determination of erythrocyte mean corpuscular volume (MCV)Ordered By: Jhonny Tomas on 12-24-2021 MCV (RBC) [Entitic vol] 97.1 fL 80-94 [facility] Hematocrit Auto (Bld) [Volum e fraction]Ordered By: Jhonny Tomas on 12-24-2021 Hematocrit (Bld) [Volume fraction] 43.6 % 40-54 [facility] Laboratory - Chemistry and C hemistry - challengeOrdered By: Jhonny Tomas on 12-24-2021 CO2 [Moles/Vol] 26.0 mmol/L 21.0-32.0 [facility] Urea nitrogen/Creatinine [Mass ratio] 14.7 mg/mg 10-20 [facility] Laboratory - Hematology and Cell countsOrdered By: Jhonny Tomas on 12-24-2021 Erythrocyte distribution width (RBC) [Entitic vol] 51.8 fL 35.1-43.9 [facility] Erythrocyte distribution width (RBC) [Ratio] 14.4 % 11.6-14.6 [facility] Immature granulocytes/100 WBC (Bld) 0.100 % 0.0-0.9 [facility] Comment on above: IG% - Immature Granu locytes (promyelocytes, myelocytes and metamyelocytes) > 1% indicates that a LEFT SHIFT is Present. MCH (RBC) [Entitic mass] 32.3 pg 27.0-32.0 [facility] Nucleated RBC/100 WBC (Bld) [Ratio] 0 % 0-5 [facility] MCHC Auto (RBC) [Mass/Vol]Or dered By: Jhonny Tomas on 12-24-2021 MCHC (RBC) [Mass/Vol] 33.3 g/dL 32-36 [facility] No Panel InformationOrdered By: Jhonny Tomas on 12-24-2021 Estimated GFR (MDRD) Amer 90 mL/min >60 [facility] Comment on above: GFR Calc Estimated GFR (MDRD) Non-Af Amer 74 mL/min >60 [facility] Comment on above: Non- GFR Calc Platelets bldOrdered By: Joao Tomas on 12-24-2021 Platelets (Bld) [#/Vol] 166 10*3/uL 150-450 [facility] Serum or plasma calcium siobhan urement (mass/volume)Ordered By: Jhonny Tomas on 12-24-2021 Calcium [Mass/Vol] 8.8 mg/dL 8.5-10.1 [facility] Serum or plasma creatinine m easurement (mass/volume)Ordered By: Jhonny Tomas on 12-24-2021 Creatinine [Mass/Vol] 1.02 mg/dL 0.70-1.30 [facility] Comment on above: The validity of the calculated GFR & GFRAA in patients over 70 years has not been determined. Clinical correlation is essential. Serum or plasma urea nitroge n measurement (mass/volume)Ordered By: Jhonny Tomas on 12-24-2021 Urea nitrogen [Mass/Vol] 15 mg/dL 7-18 [facility] Thin prep Papanicolaou smear with manual screeningOrdered By: Jhonny Tomas on 12-24-2021 Thin prep Papanicolaou smear with manual screening 5 5-15 [facility] Absolute lymphocyte counton 12-10-2021 Lymphocytes Auto (Unsp spec) [#/Vol] 1.33 10*3/uL 0.83-4.51 [facility] Work Phone: Basophil percentageon 2021 Basophils/100 WBC (Bld) 0.4 % 0-1 [facility] Work Phone: Chloride [Moles/Vol] 105 mmol/L 98-107 [facility] Work Phone: Eosinophils/100 WBC (Bld) 1.3 % 0-5 [facility] Work Phone: Glucose [Mass/Vol] 103 mg/dL 74-106 [facility] Work Phone: [phone] Comment on above: Fasting Glucose resu lt from 100 to 125 mg/dL suggests IMPAIRED HOMEOSTASIS per A.D.A. criteria. Neutrophils (Bld) [#/Vol] 4.8 10*3/uL 2.0-7.7 [facility] Work Phone: Neutrophils/100 WBC (Bld) 69.1 % 47-70 [facility] Work Phone: Potassium [Moles/Vol] 3.7 mmol/L 3.5-5.1 [facility] Work Phone: Sodium [Moles/Vol] 141 mmol/L 136-145 [facility] Work Phone: WBC (Bld) [#/Vol] 7.0 10*3/uL 4.4-11.0 [facility] Work Phone: Blood erythrocytes count (nu mber/volume)on 12-10-2021 RBC (Bld) [#/Vol] 4.88 10*6/uL 4.6-6.2 [facility] Work Phone: Blood hemoglobin measurement (mass/volume)on 12-10-2021 Hemoglobin (Bld) [Mass/Vol] 15.5 g/dL 13.0-16.5 [facility] Work Phone: [phone] Blood lymphocytes/100 leukoc yteson 12-10-2021 Lymphocytes/100 WBC (Bld) 19.1 % 19-41 [facility] Work Phone: [phone] Blood monocytes/100 leukocyt eson 12-10-2021 Monocytes/100 WBC (Bld) 9.8 % 0-10 [facility] Work Phone: Blood platelet mean volumeon 12-10-2021 Platelet mean volume (Bld) [Entitic vol] 10.8 fL 6.2-12.0 [facility] Work Phone: Determination of erythrocyte mean corpuscular volume (MCV)on 12-10-2021 MCV (RBC) [Entitic vol] 95.9 fL 80-94 [facility] Work Phone: Hematocrit Auto (Bld) [Volum e fraction]on 12-10-2021 Hematocrit (Bld) [Volume fraction] 46.8 % 40-54 [facility] Work Phone: Laboratory - Chemistry and C hemistry - challengeon 12-10-2021 CO2 [Moles/Vol] 30.0 mmol/L 21.0-32.0 [facility] Work Phone: Urea nitrogen/Creatinine [Mass ratio] 11.3 mg/mg 10-20 [facility] Work Phone: Laboratory - Hematology and Cell countson 12-10-2021 Erythrocyte distribution width (RBC) [Entitic vol] 51.1 fL 35.1-43.9 [facility] Work Phone: Erythrocyte distribution width (RBC) [Ratio] 14.4 % 11.6-14.6 [facility] Work Phone: Immature granulocytes/100 WBC (Bld) 0.300 % 0.0-0.9 [facility] Work Phone: Comment on above: IG% - Immature Granu locytes (promyelocytes, myelocytes and metamyelocytes) > 1% indicates that a LEFT SHIFT is Present. MCH (RBC) [Entitic mass] 31.8 pg 27.0-32.0 [facility] Work Phone: Nucleated RBC/100 WBC (Bld) [Ratio] 0 % 0-5 [facility] Work Phone: MCHC Auto (RBC) [Mass/Vol]on 12-10-2021 MCHC (RBC) [Mass/Vol] 33.1 g/dL 32-36 [facility] Work Phone: No Panel Informationon 12-10 Estimated GFR (MDRD) Amer 86 mL/min >60 [facility] Work Phone: Comment on above: GFR Calc Estimated GFR (MDRD) Non-Af Amer 71 mL/min >60 [facility] Work Phone: Comment on above: Non- GFR Calc Platelets bldon 12-10-2021 Platelets (Bld) [#/Vol] 176 10*3/uL 150-450 [facility] Work Phone: Serum or plasma calcium siobhan urement (mass/volume)on 12-10-2021 Calcium [Mass/Vol] 8.9 mg/dL 8.5-10.1 [facility] Work Phone: Serum or plasma creatinine m easurement (mass/volume)on 12-10-2021 Creatinine [Mass/Vol] 1.06 mg/dL 0.70-1.30 [facility] Work Phone: Comment on above: The validity of the calculated GFR & GFRAA in patients over 70 years has not been determined. Clinical correlation is essential. Serum or plasma urea nitroge n measurement (mass/volume)on 12-10-2021 Urea nitrogen [Mass/Vol] 12 mg/dL 7-18 [facility] Work Phone: Thin prep Papanicolaou smear with manual screeningon 12-10-2021 Thin prep Papanicolaou smear with manual screening 6 5-15 [facility] Work Phone: CNPNon 12-09-2021 CNPN Telephone (INTMWS) KEL DILLARD ([id number]) 1940 Date Time Provider Department 12/09/21 NICOLAS KAUR During your visit today, we recorded the following information about you: Ludivina Cárdenas LPN 12/09/2021 3:11 PM Signed Patient son Jhonny calling said PCP completed expert evaluation form on 09/29 for guardianship and 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 Son Jhonny said 2 weeks after form was done father had fall and was taken to [facility] then sent to [facility] for rehab. Now father is in memory [...] stay and he is now under the [place] attending physician's care. It is more appropriate for the [place] attending physician to do another form. More statements need corrected/updated Preethi Delgadillo RN 12/11/2021 2:59 PM Signed Son (Jhonny) calls in and provider message reviewed. Son asking if form brought in can be picked back up in Medical Records. Please contact Jhonny at [phone]. RENETTA Rubio LPN 12/11/2021 3:41 PM Signed [...] by FLORA BRASHER LPN on 12/11/21 Normal [facility] Absolute lymphocyte counton 11-26-2021 Lymphocytes Auto (Unsp spec) [#/Vol] 1.47 10*3/uL 0.83-4.51 [facility] Work Phone: Basophil percentageon 2021 Basophils/100 WBC (Bld) 0.6 % 0-1 [facility] Work Phone: [phone] Chloride [Moles/Vol] 107 mmol/L 98-107 [facility] Work Phone: [phone] Eosinophils/100 WBC (Bld) 1.1 % 0-5 [facility] Work Phone: Glucose [Mass/Vol] 92 mg/dL 74-106 [facility] Work Phone: [phone] Neutrophils (Bld) [#/Vol] 6.4 10*3/uL 2.0-7.7 [facility] Work Phone: Neutrophils/100 WBC (Bld) 71.7 % 47-70 [facility] Work Phone: Potassium [Moles/Vol] 4.0 mmol/L 3.5-5.1 [facility] Work Phone: Comment on above: Slight Hemolysis, Re sult may be falsely increased. Sodium [Moles/Vol] 141 mmol/L 136-145 [facility] Work Phone: WBC (Bld) [#/Vol] 9.0 10*3/uL 4.4-11.0 [facility] Work Phone: Blood erythrocytes count (nu mber/volume)on 11-26-2021 RBC (Bld) [#/Vol] 4.81 10*6/uL 4.6-6.2 [facility] Work Phone: [phone] Blood hemoglobin measurement (mass/volume)on 11-26-2021 Hemoglobin (Bld) [Mass/Vol] 15.3 g/dL 13.0-16.5 [facility] Work Phone: [phone] Blood lymphocytes/100 leukoc yteson 11-26-2021 Lymphocytes/100 WBC (Bld) 16.4 % 19-41 [facility] Work Phone: Blood monocytes/100 leukocyt eson 11-26-2021 Monocytes/100 WBC (Bld) 9.9 % 0-10 [facility] Work Phone: Blood platelet mean volumeon 11-26-2021 Platelet mean volume (Bld) [Entitic vol] 11.2 fL 6.2-12.0 [facility] Work Phone: Determination of erythrocyte mean corpuscular volume (MCV)on 11-26-2021 MCV (RBC) [Entitic vol] 96.7 fL 80-94 [facility] Work Phone: Hematocrit Auto (Bld) [Volum e fraction]on 11-26-2021 Hematocrit (Bld) [Volume fraction] 46.5 % 40-54 [facility] Work Phone: Laboratory - Chemistry and C hemistry - challengeon 11-26-2021 CO2 [Moles/Vol] 28.0 mmol/L 21.0-32.0 [facility] Work Phone: Urea nitrogen/Creatinine [Mass ratio] 13.3 mg/mg 10-20 [facility] Work Phone: Laboratory - Hematology and Cell countson 11-26-2021 Erythrocyte distribution width (RBC) [Entitic vol] 51.9 fL 35.1-43.9 [facility] Work Phone: Erythrocyte distribution width (RBC) [Ratio] 14.5 % 11.6-14.6 [facility] Work Phone: Immature granulocytes/100 WBC (Bld) 0.300 % 0.0-0.9 [facility] Work Phone: Comment on above: IG% - Immature Granu locytes (promyelocytes, myelocytes and metamyelocytes) > 1% indicates that a LEFT SHIFT is Present. MCH (RBC) [Entitic mass] 31.8 pg 27.0-32.0 [facility] Work Phone: Nucleated RBC/100 WBC (Bld) [Ratio] 0 % 0-5 [facility] Work Phone: MCHC Auto (RBC) [Mass/Vol]on 11-26-2021 MCHC (RBC) [Mass/Vol] 32.9 g/dL 32-36 [facility] Work Phone: No Panel Informationon 11-26 Estimated GFR (MDRD) Amer 80 mL/min >60 [facility] Work Phone: Comment on above: GFR Calc Estimated GFR (MDRD) Non-Af Amer 66 mL/min >60 [facility] Work Phone: Comment on above: Non- GFR Calc Platelets bldon 11-26-2021 Platelets (Bld) [#/Vol] 181 10*3/uL 150-450 [facility] Work Phone: Serum or plasma calcium siobhan urement (mass/volume)on 11-26-2021 Calcium [Mass/Vol] 8.7 mg/dL 8.5-10.1 [facility] Work Phone: Serum or plasma creatinine m easurement (mass/volume)on 11-26-2021 Creatinine [Mass/Vol] 1.13 mg/dL 0.70-1.30 [facility] Work Phone: Comment on above: The validity of the calculated GFR & GFRAA in patients over 70 years has not been determined. Clinical correlation is essential. Serum or plasma urea nitroge n measurement (mass/volume)on 11-26-2021 Urea nitrogen [Mass/Vol] 15 mg/dL 7-18 [facility] Work Phone: Thin prep Papanicolaou smear with manual screeningon 11-26-2021 Thin prep Papanicolaou smear with manual screening 6 5-15 [facility] Work Phone: Absolute lymphocyte counton 11-12-2021 Lymphocytes Auto (Unsp spec) [#/Vol] 1.01 10*3/uL 0.83-4.51 [facility] Work Phone: Basophil percentageon 2021 Basophils/100 WBC (Bld) 0.6 % 0-1 [facility] Work Phone: [phone] Chloride [Moles/Vol] 109 mmol/L 98-107 [facility] Work Phone: [phone] Eosinophils/100 WBC (Bld) 1.1 % 0-5 [facility] Work Phone: [phone] Glucose [Mass/Vol] 89 mg/dL 74-106 [facility] Work Phone: [phone] Neutrophils (Bld) [#/Vol] 4.7 10*3/uL 2.0-7.7 [facility] Work Phone: [phone] Neutrophils/100 WBC (Bld) 72.7 % 47-70 [facility] Work Phone: [phone] Potassium [Moles/Vol] 3.9 mmol/L 3.5-5.1 [facility] Work Phone: [phone] Sodium [Moles/Vol] 142 mmol/L 136-145 [facility] Work Phone: [phone] WBC (Bld) [#/Vol] 6.5 10*3/uL 4.4-11.0 [facility] Work Phone: Blood erythrocytes count (nu mber/volume)on 11-12-2021 RBC (Bld) [#/Vol] 4.50 10*6/uL 4.6-6.2 [facility] Work Phone: [phone] Blood hemoglobin measurement (mass/volume)on 11-12-2021 Hemoglobin (Bld) [Mass/Vol] 14.4 g/dL 13.0-16.5 [facility] Work Phone: [phone] Blood lymphocytes/100 leukoc yteson 11-12-2021 Lymphocytes/100 WBC (Bld) 15.5 % 19-41 [facility] Work Phone: Blood monocytes/100 leukocyt eson 11-12-2021 Monocytes/100 WBC (Bld) 9.8 % 0-10 [facility] Work Phone: Blood platelet mean volumeon 11-12-2021 Platelet mean volume (Bld) [Entitic vol] 10.9 fL 6.2-12.0 [facility] Work Phone: Determination of erythrocyte mean corpuscular volume (MCV)on 11-12-2021 MCV (RBC) [Entitic vol] 97.3 fL 80-94 [facility] Work Phone: Hematocrit Auto (Bld) [Volum e fraction]on 11-12-2021 Hematocrit (Bld) [Volume fraction] 43.8 % 40-54 [facility] Work Phone: Laboratory - Chemistry and C hemistry - challengeon 11-12-2021 CO2 [Moles/Vol] 26.0 mmol/L 21.0-32.0 [facility] Work Phone: Urea nitrogen/Creatinine [Mass ratio] 16.4 mg/mg 10-20 [facility] Work Phone: Laboratory - Hematology and Cell countson 11-12-2021 Erythrocyte distribution width (RBC) [Entitic vol] 53.1 fL 35.1-43.9 [facility] Work Phone: Erythrocyte distribution width (RBC) [Ratio] 14.8 % 11.6-14.6 [facility] Work Phone: Immature granulocytes/100 WBC (Bld) 0.300 % 0.0-0.9 [facility] Work Phone: Comment on above: IG% - Immature Granu locytes (promyelocytes, myelocytes and metamyelocytes) > 1% indicates that a LEFT SHIFT is Present. MCH (RBC) [Entitic mass] 32.0 pg 27.0-32.0 [facility] Work Phone: Nucleated RBC/100 WBC (Bld) [Ratio] 0 % 0-5 [facility] Work Phone: MCHC Auto (RBC) [Mass/Vol]on 11-12-2021 MCHC (RBC) [Mass/Vol] 32.9 g/dL 32-36 [facility] Work Phone: No Panel Informationon 11-12 Estimated GFR (MDRD) Amer 102 mL/min >60 [facility] Work Phone: Comment on above: GFR Calc Estimated GFR (MDRD) Non-Af Amer 84 mL/min >60 [facility] Work Phone: Comment on above: Non- GFR Calc Platelets bldon 11-12-2021 Platelets (Bld) [#/Vol] 181 10*3/uL 150-450 [facility] Work Phone: Serum or plasma calcium siobhan urement (mass/volume)on 11-12-2021 Calcium [Mass/Vol] 8.7 mg/dL 8.5-10.1 [facility] Work Phone: Serum or plasma creatinine m easurement (mass/volume)on 11-12-2021 Creatinine [Mass/Vol] 0.92 mg/dL 0.70-1.30 [facility] Work Phone: Comment on above: The validity of the calculated GFR & GFRAA in patients over 70 years has not been determined. Clinical correlation is essential. Serum or plasma urea nitroge n measurement (mass/volume)on 11-12-2021 Urea nitrogen [Mass/Vol] 15 mg/dL 7-18 [facility] Work Phone: Thin prep Papanicolaou smear with manual screeningon 11-12-2021 Thin prep Papanicolaou smear with manual screening 7 -15 [facility] Work Phone: Absolute lymphocyte counton 10-29-2021 Lymphocytes Auto (Unsp spec) [#/Vol] 0.96 10*3/uL 0.83-4.51 [facility] Work Phone: Basophil percentageon 2021 Basophils/100 WBC (Bld) 0.5 % 0-1 [facility] Work Phone: Chloride [Moles/Vol] 110 mmol/L 98-107 [facility] Work Phone: Eosinophils/100 WBC (Bld) 1.9 % 0-5 [facility] Work Phone: Glucose [Mass/Vol] 93 mg/dL 74-106 [facility] Work Phone: Neutrophils (Bld) [#/Vol] 4.5 10*3/uL 2.0-7.7 [facility] Work Phone: Neutrophils/100 WBC (Bld) 70.1 % 47-70 [facility] Work Phone: Potassium [Moles/Vol] 3.8 mmol/L 3.5-5.1 [facility] Work Phone: Sodium [Moles/Vol] 142 mmol/L 136-145 [facility] Work Phone: [phone] WBC (Bld) [#/Vol] 6.4 10*3/uL 4.4-11.0 [facility] Work Phone: [phone] Blood erythrocytes count (nu mber/volume)on 10-29-2021 RBC (Bld) [#/Vol] 4.38 10*6/uL 4.6-6.2 [facility] Work Phone: [phone] Blood hemoglobin measurement (mass/volume)on 10-29-2021 Hemoglobin (Bld) [Mass/Vol] 13.9 g/dL 13.0-16.5 [facility] Work Phone: Blood lymphocytes/100 leukoc yteson 10-29-2021 Lymphocytes/100 WBC (Bld) 15.1 % 19-41 [facility] Work Phone: Blood monocytes/100 leukocyt eson 10-29-2021 Monocytes/100 WBC (Bld) 12.1 % 0-10 [facility] Work Phone: Blood platelet mean volumeon 10-29-2021 Platelet mean volume (Bld) [Entitic vol] 11.2 fL 6.2-12.0 [facility] Work Phone: Determination of erythrocyte mean corpuscular volume (MCV)on 10-29-2021 MCV (RBC) [Entitic vol] 96.8 fL 80-94 [facility] Work Phone: Hematocrit Auto (Bld) [Volum e fraction]on 10-29-2021 Hematocrit (Bld) [Volume fraction] 42.4 % 40-54 [facility] Work Phone: Laboratory - Chemistry and C hemistry - challengeon 10-29-2021 CO2 [Moles/Vol] 27.0 mmol/L 21.0-32.0 [facility] Work Phone: Urea nitrogen/Creatinine [Mass ratio] 11.1 mg/mg 10-20 [facility] Work Phone: Laboratory - Hematology and Cell countson 10-29-2021 Erythrocyte distribution width (RBC) [Entitic vol] 52.1 fL 35.1-43.9 [facility] Work Phone: Erythrocyte distribution width (RBC) [Ratio] 14.6 % 11.6-14.6 [facility] Work Phone: Immature granulocytes/100 WBC (Bld) 0.300 % 0.0-0.9 [facility] Work Phone: Comment on above: IG% - Immature Granu locytes (promyelocytes, myelocytes and metamyelocytes) > 1% indicates that a LEFT SHIFT is Present. MCH (RBC) [Entitic mass] 31.7 pg 27.0-32.0 [facility] Work Phone: Nucleated RBC/100 WBC (Bld) [Ratio] 0 % 0-5 [facility] Work Phone: MCHC Auto (RBC) [Mass/Vol]on 10-29-2021 MCHC (RBC) [Mass/Vol] 32.8 g/dL 32-36 [facility] Work Phone: No Panel Informationon 10-29 Estimated GFR (MDRD) Amer 84 mL/min >60 [facility] Work Phone: Comment on above: GFR Calc Estimated GFR (MDRD) Non-Af Amer 70 mL/min >60 [facility] Work Phone: Comment on above: Non- GFR Calc Platelets bldon 10-29-2021 Platelets (Bld) [#/Vol] 187 10*3/uL 150-450 [facility] Work Phone: Serum or plasma calcium siobhan urement (mass/volume)on 10-29-2021 Calcium [Mass/Vol] 8.8 mg/dL 8.5-10.1 [facility] Work Phone: Serum or plasma creatinine m easurement (mass/volume)on 10-29-2021 Creatinine [Mass/Vol] 1.08 mg/dL 0.70-1.30 [facility] Work Phone: Comment on above: The validity of the calculated GFR & GFRAA in patients over 70 years has not been determined. Clinical correlation is essential. Serum or plasma urea nitroge n measurement (mass/volume)on 10-29-2021 Urea nitrogen [Mass/Vol] 12 mg/dL 7-18 [facility] Work Phone: Thin prep Papanicolaou smear with manual screeningon 10-29-2021 Thin prep Papanicolaou smear with manual screening 5 5-15 [facility] Work Phone: Sera 10-23-2021 CNPN Telephone (INTMWS) KEL DILLARD ([id number]) 1940 M Date Time Provider Department 10/23/21 NICOLAS KAUR INTMWS During your visit today, we recorded the following information about you: Flora Brasher EAP COUNSELOR 10/23/2021 11:54 AM Signed Per [facility] discharge info pt was discharged to [facility] 10/22/21. Allergies As of Date: 10/23/2021 (No [...] by FLORA BRASHER LPN on 10/23/21 Normal [facility] Laboratory - Chemistry and C hemistry - challengeon 10-22-2021 CK [Catalytic activity/Vol] 1616 U/L 39-308 [facility] Work Phone: [phone] Absolute lymphocyte counton 10-21-2021 Lymphocytes Auto (Unsp spec) [#/Vol] 0.75 10*3/uL 0.83-4.51 [facility] Work Phone: [phone] Basophil percentageon 2021 Basophils/100 WBC (Bld) 0.1 % 0-1 [facility] Work Phone: [phone] Chloride [Moles/Vol] 107 mmol/L 98-107 [facility] Work Phone: [phone] Eosinophils/100 WBC (Bld) 0.0 % 0-5 [facility] Work Phone: Glucose [Mass/Vol] 144 mg/dL 74-106 [facility] Work Phone: [phone] Comment on above: Fasting Glucose resu lt greater than or equal to 126 mg/dL suggests DIABETES MELLITUS per A.D.A. criteria. Neutrophils (Bld) [#/Vol] 11.4 10*3/uL 2.0-7.7 [facility] Work Phone: [phone] Neutrophils/100 WBC (Bld) 85.4 % 47-70 [facility] Work Phone: [phone] Potassium [Moles/Vol] 3.7 mmol/L 3.5-5.1 [facility] Work Phone: Sodium [Moles/Vol] 141 mmol/L 136-145 [facility] Work Phone: WBC (Bld) [#/Vol] 13.4 10*3/uL 4.4-11.0 [facility] Work Phone: Blood erythrocytes count (nu mber/volume)on 10-21-2021 RBC (Bld) [#/Vol] 5.04 10*6/uL 4.6-6.2 [facility] Work Phone: Blood hemoglobin measurement (mass/volume)on 10-21-2021 Hemoglobin (Bld) [Mass/Vol] 15.7 g/dL 13.0-16.5 [facility] Work Phone: Blood lymphocytes/100 leukoc yteson 10-21-2021 Lymphocytes/100 WBC (Bld) 5.6 % 19-41 [facility] Work Phone: Blood monocytes/100 leukocyt eson 10-21-2021 Monocytes/100 WBC (Bld) 8.5 % 0-10 [facility] Work Phone: Blood platelet mean volumeon 10-21-2021 Platelet mean volume (Bld) [Entitic vol] 11.2 fL 6.2-12.0 [facility] Work Phone: Determination of erythrocyte mean corpuscular volume (MCV)on 10-21-2021 MCV (RBC) [Entitic vol] 93.8 fL 80-94 [facility] Work Phone: Hematocrit Auto (Bld) [Volum e fraction]on 10-21-2021 Hematocrit (Bld) [Volume fraction] 47.3 % 40-54 [facility] Work Phone: Laboratory - Chemistry and C hemistry - challengeon 10-21-2021 CO2 [Moles/Vol] 26.0 mmol/L 21.0-32.0 [facility] Work Phone: Urea nitrogen/Creatinine [Mass ratio] 14.2 mg/mg 10-20 [facility] Work Phone: Laboratory - Hematology and Cell countson 10-21-2021 Erythrocyte distribution width (RBC) [Entitic vol] 50.5 fL 35.1-43.9 [facility] Work Phone: Erythrocyte distribution width (RBC) [Ratio] 14.7 % 11.6-14.6 [facility] Work Phone: Immature granulocytes/100 WBC (Bld) 0.400 % 0.0-0.9 [facility] Work Phone: Comment on above: IG% - Immature Granu locytes (promyelocytes, myelocytes and metamyelocytes) > 1% indicates that a LEFT SHIFT is Present. MCH (RBC) [Entitic mass] 31.2 pg 27.0-32.0 [facility] Work Phone: Nucleated RBC/100 WBC (Bld) [Ratio] 0 % 0-5 [facility] Work Phone: MCHC Auto (RBC) [Mass/Vol]on 10-21-2021 MCHC (RBC) [Mass/Vol] 33.2 g/dL 32-36 [facility] Work Phone: No Panel Informationon 10-21 Estimated Creatinine Clearance Calc 48.76 ml/min [facility] Work Phone: Estimated GFR (MDRD) Amer 80 mL/min >60 [facility] Work Phone: Comment on above: GFR Calc Estimated GFR (MDRD) Non-Af Amer 66 mL/min >60 [facility] Work Phone: Comment on above: Non- GFR Calc Thyroid Stimulating Hormone (TSH) 1.56 uIU/mL 0.358-3.74 [facility] Work Phone: Vitamin D 25-Hydroxy 10.8 ng/mL [facility] Work Phone: Comment on above: Vitamin D 25(OH) Sta tus Range Deficiency <20 ng/mL (50nmol/L) Insufficiency 20 - 30 ng/mL (50 - 75 nmol/L) Sufficiency 30 - 100 ng/mL (75 - 250 nmol/L) Toxicity >100 ng/mL (>250 nmol/L) Platelets bldon 10-21-2021 Platelets (Bld) [#/Vol] 219 10*3/uL 150-450 [facility] Work Phone: Serum or plasma calcium siobhan urement (mass/volume)on 10-21-2021 Calcium [Mass/Vol] 9.1 mg/dL 8.5-10.1 [facility] Work Phone: Serum or plasma creatinine m easurement (mass/volume)on 10-21-2021 Creatinine [Mass/Vol] 1.13 mg/dL 0.70-1.30 [facility] Work Phone: Comment on above: The validity of the calculated GFR & GFRAA in patients over 70 years has not been determined. Clinical correlation is essential. Serum or plasma urea nitroge n measurement (mass/volume)on 10-21-2021 Urea nitrogen [Mass/Vol] 16 mg/dL 7-18 [facility] Work Phone: Thin prep Papanicolaou smear with manual screeningon 10-21-2021 Thin prep Papanicolaou smear with manual screening 8 5-15 [facility] Work Phone: Absolute lymphocyte counton 10-20-2021 Lymphocytes Auto (Unsp spec) [#/Vol] 0.59 10*3/uL 0.83-4.51 [facility] Work Phone: Basophil percentageon 2021 Basophil percentage 5-10 SEEN /hpf 0-5 [facility] Work Phone: Basophils/100 WBC (Bld) 0.1 % 0-1 [facility] Work Phone: Chloride [Moles/Vol] 107 mmol/L 98-107 [facility] Work Phone: Eosinophils/100 WBC (Bld) 0.0 % 0-5 [facility] Work Phone: Glucose [Mass/Vol] 110 mg/dL 74-106 [facility] Work Phone: Comment on above: Fasting Glucose resu lt from 100 to 125 mg/dL suggests IMPAIRED HOMEOSTASIS per A.D.A. criteria. Neutrophils (Bld) [#/Vol] 11.6 10*3/uL 2.0-7.7 [facility] Work Phone: Neutrophils/100 WBC (Bld) 85.8 % 47-70 [facility] Work Phone: Potassium [Moles/Vol] 3.6 mmol/L 3.5-5.1 [facility] Work Phone: Sodium [Moles/Vol] 141 mmol/L 136-145 [facility] Work Phone: WBC (Bld) [#/Vol] 13.5 10*3/uL 4.4-11.0 [facility] Work Phone: Bilirubin Test strip Ql (U)o n 10-20-2021 Bilirubin Ql (U) Negative Negative [facility] Work Phone: Blood erythrocytes count (nu mber/volume)on 10-20-2021 RBC (Bld) [#/Vol] 5.14 10*6/uL 4.6-6.2 [facility] Work Phone: Blood hemoglobin measurement (mass/volume)on 10-20-2021 Hemoglobin (Bld) [Mass/Vol] 15.9 g/dL 13.0-16.5 [facility] Work Phone: Blood lymphocytes/100 leukoc yteson 10-20-2021 Lymphocytes/100 WBC (Bld) 4.4 % 19-41 [facility] Work Phone: Blood manual differential co mment interpretation (narrative result)on 10-20-2021 Manual differential comment Wei (Bld) [Interp] SEE COMMENT [facility] Work Phone: Comment on above: LYMPHOPENIA NOTED Blood monocytes/100 leukocyt eson 10-20-2021 Monocytes/100 WBC (Bld) 9.0 % 0-10 [facility] Work Phone: Blood platelet adequacy dete ction by light microscopyon 10-20-2021 Platelets LM Ql (Bld) ADEQUATE ADEQ [facility] Work Phone: Blood platelet mean volumeon 10-20-2021 Platelet mean volume (Bld) [Entitic vol] 10.4 fL 6.2-12.0 [facility] Work Phone: Determination of erythrocyte mean corpuscular volume (MCV)on 10-20-2021 MCV (RBC) [Entitic vol] 92.8 fL 80-94 [facility] Work Phone: Hematocrit Auto (Bld) [Volum e fraction]on 10-20-2021 Hematocrit (Bld) [Volume fraction] 47.7 % 40-54 [facility] Work Phone: Hyaline casts LM.LPF (Urine sed) [#/Area]on 10-20-2021 Hyaline casts (Urine sed) [#/Area] 0 /[LPF] 0-5 [facility] Work Phone: Ketones Test strip Ql (U)on 10-20-2021 Ketones Ql (U) 50 mg/dl Negative [facility] Work Phone: Laboratory - Chemistry and C hemistry - challengeon 10-20-2021 CO2 [Moles/Vol] 25.0 mmol/L 21.0-32.0 [facility] Work Phone: Urea nitrogen/Creatinine [Mass ratio] 15.0 mg/mg 10-20 [facility] Work Phone: Laboratory - Hematology and Cell countson 10-20-2021 Anisocytosis Ql (Bld) RARE [facility] Work Phone: Erythrocyte distribution width (RBC) [Entitic vol] 48.4 fL 35.1-43.9 [facility] Work Phone: Erythrocyte distribution width (RBC) [Ratio] 14.4 % 11.6-14.6 [facility] Work Phone: Immature granulocytes/100 WBC (Bld) 0.700 % 0.0-0.9 [facility] Work Phone: Comment on above: IG% - Immature Granu locytes (promyelocytes, myelocytes and metamyelocytes) > 1% indicates that a LEFT SHIFT is Present. MCH (RBC) [Entitic mass] 30.9 pg 27.0-32.0 [facility] Work Phone: Nucleated RBC/100 WBC (Bld) [Ratio] 0 % 0-5 [facility] Work Phone: MCHC Auto (RBC) [Mass/Vol]on 10-20-2021 MCHC (RBC) [Mass/Vol] 33.3 g/dL 32-36 [facility] Work Phone: Macrocytes detectionon 10-20 Macrocytes Ql (Bld) [facility]: Mucus LM Ql (Urine sed)on Mucus Ql (Urine sed) 0 SEEN /hpf [facility] Work Phone: Nitrite Test strip Ql (U)on 10-20-2021 Nitrite Ql (U) Negative Negative [facility] Work Phone: No Panel Informationon 10-20 Estimated Creatinine Clearance Calc 53.23 ml/min [facility] Work Phone: Estimated GFR (MDRD) Amer 85 mL/min >60 [facility] Work Phone: Comment on above: GFR Calc Estimated GFR (MDRD) Non-Af Amer 70 mL/min >60 [facility] Work Phone: Comment on above: Non- GFR Calc Platelets bldon 10-20-2021 Platelets (Bld) [#/Vol] 198 10*3/uL 150-450 [facility] Work Phone: Protein Test strip Ql (U)on 10-20-2021 Protein Ql (U) 30 mg/dl Negative [facility] Work Phone: RBC morphologyon 10-20-2021 RBC morphology finding Nom (Bld) N CHROM NORMAL NORM C&C [facility] Work Phone: Serum or plasma calcium siobhan urement (mass/volume)on 10-20-2021 Calcium [Mass/Vol] 9.1 mg/dL 8.5-10.1 [facility] Work Phone: Serum or plasma creatinine m easurement (mass/volume)on 10-20-2021 Creatinine [Mass/Vol] 1.07 mg/dL 0.70-1.30 [facility] Work Phone: Comment on above: The validity of the calculated GFR & GFRAA in patients over 70 years has not been determined. Clinical correlation is essential. Serum or plasma urea nitroge n measurement (mass/volume)on 10-20-2021 Urea nitrogen [Mass/Vol] 16 mg/dL 7-18 [facility] Work Phone: Squamous epithelial cells de tection in urine sediment by light microscopyon 10-20-2021 Epithelial cells.squamous LM Ql (Urine sed) 0 SEEN /hpf 0-5 [facility] Work Phone: Thin prep Papanicolaou smear with manual screeningon 10-20-2021 Thin prep Papanicolaou smear with manual screening 9 5-15 [facility] Work Phone: Urine blood detectionon 09-30 RBC Ql (U) 250 /ul Negative [facility] Work Phone: RBC Ql (U) 0 SEEN /hpf 0-5 [facility] Work Phone: Urine clarityon 10-20-2021 Clarity (U) Sl. Cloudy Clear [facility] Work Phone: Urine color determinationon 10-20-2021 Color (U) Kristina Yellow [facility] Work Phone: Urine glucose detectionon Glucose Ql (U) Normal mg/dl Normal [facility] Work Phone: Urine leukocyte esterase det ection by dipstickon 10-20-2021 Leukocyte esterase Test strip Ql (U) 25 /ul Negative [facility] Work Phone: Urine pHon 10-20-2021 pH (U) 5.0 [pH] 5.0 - 8.0 [facility] Work Phone: Urine sediment bacteria coun t by microscopy (number/high power field)on 10-20-2021 Bacteria LM.HPF (Urine sed) [#/Area] 1 /[HPF] None Seen [facility] Work Phone: Urine specific gravity measu rementon 10-20-2021 Specific gravity (U) [Rel density] 1.025 1.002-1.030 [facility] Work Phone: Urobilinogen Auto test strip Ql (U)on 10-20-2021 Urobilinogen Ql (U) 1 mg/dl Normal [facility] Work Phone: CNOVon 09-29-2021 CNOV Office Visit (INTMWS) KEL DILLARD ([id number]) 1940 M Date Time Provider Department 09/29/21 4:40 PM NICOLAS KAUR INTMWS During your visit today, we recorded the following information about you: Temperature Pulse Respiration Blood pressure Normal [facility] Sera 07-15-2021 CNPN Telephone (INTMWS) GILMAKEL XAVIER ([id number]) 1940 M Date Time Provider Department 07/15/21 NICOLAS KAUR INTMWS During your visit today, we recorded the following information about you: Karen Matias RN 07/15/2021 1:40 PM Signed Yesenia, Admissions staff member at [facility] calling to state patient's son Jhonny has reached out to them to request patient possibly be admitted into their memory care unit due to cognition concerns. Yesenia is requesting notes from patient's last OV be faxed to them at [phone]. This nurse contacted son Jhonny to verify the request and he confirmed it was ok to share requested information. Information faxed as requested. aKren Matias RN Allergies As of Date: 07/15/2021 (No Known Allergies) Date Reviewed: 05/12/2021 Reviewed by: Dori Martines APRN.REGIONAL OFFICE COORDINATOR - Fully Assessed Reason for Visit: fax [...] Status:Closed by KAREN MATIAS on 07/15/21 Normal [facility] Culture, urine Bacteria identified Cx Nom (U) Positive [facility] Work Phone: Vital Signs Date Time Vital Sign Value Performing Clinician Faci lity 12-02-2022 10:40-0400 Body height 175.[address] Nicolas Kaur Work Phone: [facility] 04-02-2022 14:41-0500 Body height 175.[address] Nicolas Kaur Work Phone: [facility] 10-22-2021 08:30-0400 Body temperature 98.2 [degF] Dr. Nicolas Kaur Work Phone: [facility] Work Phone: 10-22-2021 08:30-0400 Diastolic blood pressure 71 mm[Hg] Dr. Nicolas Kaur Work Phone: [facility] Work Phone: 10-22-2021 08:30-0400 Heart rate 59 /min Dr. Nicolas Kuar Work Phone: [facility] Work Phone: 10-22-2021 08:30-0400 Respiratory rate 16 /min Dr. Nicolas Kaur Work Phone: [facility] Work Phone: 10-22-2021 08:30-0400 SaO2% (BldA) [Mass fraction] 95 % Dr. Nicolas Kaur Work Phone: [facility] Work Phone: 10-22-2021 08:30-0400 Systolic blood pressure 125 mm[Hg] Dr. Nicolas Kaur Work Phone: [facility] Work Phone: 10-21-2021 01:00-0400 Body height 175.[address] Nicolas Kaur Work Phone: [facility] Work Phone: 10-21-2021 01:00-0400 Body mass index (BMI) [Ratio] 28.1 kg/m2 Dr. Nicolas Kaur Work Phone: [facility] Work Phone: 10-21-2021 01:00-0400 Body weight 86.[address] Nicolas Kaur Work Phone: [facility] Work Phone: 10-21-2021 00:46-0400 Body temperature 97.9 [degF] Dr. Nicolas Kaur Work Phone: [facility] Work Phone: 10-21-2021 00:46-0400 Diastolic blood pressure 74 mm[Hg] Dr. Nicolas Kaur Work Phone: [facility] Work Phone: 10-21-2021 00:46-0400 Heart rate 60 /min Dr. Nicolas Kaur Work Phone: [facility] Work Phone: 10-21-2021 00:46-0400 Respiratory rate 25 /min Dr. Nicolas Kaur Work Phone: [facility] Work Phone: 10-21-2021 00:46-0400 SaO2% (BldA) [Mass fraction] 94 % Dr. Nicolas Kaur Work Phone: [facility] Work Phone: 10-21-2021 00:46-0400 Systolic blood pressure 115 mm[Hg] Dr. Nicolas Kaur Work Phone: [facility] Work Phone: 10-20-2021 20:20-0400 Body height 175.[address] Nicolas Kaur Work Phone: [facility] Work Phone: 10-20-2021 20:20-0400 Body mass index (BMI) [Ratio] 28.6 kg/m2 Dr. Nicolas Kaur Work Phone: [facility] Work Phone: 10-20-2021 20:20-0400 Body weight 87.[address] Nicolas Kaur Work Phone: [facility] Work Phone: 09-29-2021 16:45-0400 Body height 165.7 cm Nicolas Kaur MD Work Phone: [facility] 09-29-2021 16:45-0400 Body temperature 97.3 [degF] Nicolas Kaur MD Work Phone: [facility] 09-29-2021 16:45-0400 Body weight 87.09 kg Nicolas Kaur MD Work Phone: [facility] 09-29-2021 16:45-0400 Diastolic blood pressure 76 mm[Hg] Nicolas Kaur MD Work Phone: [facility] 09-29-2021 16:45-0400 Heart rate 60 /min Nicolas Kaur MD Work Phone: [facility] 09-29-2021 16:45-0400 Respiratory rate 16 /min Nicolas Kaur MD Work Phone: [facility] 09-29-2021 16:45-0400 Systolic blood pressure 130 mm[Hg] Nicolas Kaur MD Work Phone: [facility] Encounters Encounter Date Encounter Type Care Provider Facility Start: 08-22-2024 ambulatory David GARCIA Fa cility:[facility] Start: 08-22-2024 Registered Referred David Miramontes MD -[facility] Start: 08-21-2024 End: 08-21-[address] David Miramontes MD Work Phone: -[facility] Start: 08-21-2024 End: 08-21-[address] Edson Quinn MD -[facility] Work Phone: Start: 08-02-2024 ambulatory David GARCIA Fa cility:[facility] Start: 08-02-2024 [facility] Start: 08-01-2024 ambulatory David Miramontes OLS Fa cility:[facility] Start: 08-01-2024 [facility] Start: 07-21-2024 ambulatory David Miramontes OLS Fa cility:[facility] Start: 07-21-2024 [facility] Start: 07-17-2024 End: 07-17-2024 Follow-up encounter Diana Don Postlethwait [employer].REGIONAL OFFICE COORDINATOR Work Phone: [facility] Comment on above: Results Start: 07-14-2024 End: 07-14-2024 Office outpatient new 30 minutes [facility] [employer].REGIONAL OFFICE COORDINATOR Work Phone: [facility] Comment on above: Gross hematuria (Lise wallace Dx) Start: 07-14-2024 End: 07-14-2024 [facility] Start: 06-23-2024 End: 06-23-[address] David Miramontes MD Work Phone: [facility] Work Phone: Start: 06-23-2024 End: 06-23-2024 Departed Referred David Pickett Start: 06-23-2024 End: 06-23-2024 ambulatory David GARCIA Facility:[facility] Start: 06-05-2024 End: 06-05-[address] David Miramontes MD Work Phone: [facility] Work Phone: Start: 06-05-2024 End: 06-05-2024 Departed Referred David Pickett Start: 06-05-2024 Registered Referred David AdamKrystle Pickett Start: 06-05-2024 End: 06-05-2024 ambulatory David GARCIA Facility:[facility] Start: 05-30-2024 ambulatory David GARCIA Fa cility:[facility] Start: 05-30-2024 Non-patient / Non-visit Dr. Josiah Klein MD -[facility] Start: 05-30-2024 End: 05-30-[address] David Miramontes MD -[facility] Work Phone: Start: 05-30-2024 End: 05-30-2024 ambulatory Efewongbe Oleghe Facility:[facility] Start: 05-30-2024 End: 05-30-2024 Patient encounter procedure Marimar VASQUES [facility] Work Phone: Start: 05-30-2024 End: 05-30-[address] David Miramontes MD Work Phone: [facility] Work Phone: Start: 05-30-2024 End: 05-30-2024 Departed Referred David Pickett Start: 05-30-2024 Registered Referred David Pickett Start: 05-30-2024 End: 05-30-2024 ambulatory [facility] Facility:[facility] Start: 05-23-2024 End: 05-23-2024 [facility] Start: 05-23-2024 End: 05-23-[address] David Miramontes MD -[facility] Work Phone: Start: 05-22-2024 End: 05-22-[address] David Miramontes MD Work Phone: [facility] Work Phone: Start: 05-22-2024 End: 05-22-2024 Departed Referred David Pickett Start: 05-22-2024 Registered Referred David Pickett Start: 05-22-2024 End: 05-22-[address] Edson Quinn MD -[facility] Work Phone: Start: 05-22-2024 End: 05-22-[address] [facility] Facility:[facility] Start: 05-18-2024 End: 05-18-2024 [facility] Start: 05-18-2024 End: 05-18-2024 Patient encounter procedure Marimar VASQUES [facility] Work Phone: Start: 05-13-2024 End: 05-13-2024 ambulatory Efewongbe Oleghe Facility:[facility] Start: 05-13-2024 End: 05-13-[address] Edson Quinn MD -[facility] Work Phone: Start: 05-11-2024 End: 05-11-2024 ambulatory Marimar Zimmer [employer] Facility:[facility] Start: 05-11-2024 End: 05-11-2024 Patient encounter procedure Marimar Zimmer [employer] -[facility] Work Phone: Start: 05-01-2024 End: 05-01-2024 ambulatory Efewongbe Oleamnae Facility:[facility] Start: 05-01-2024 End: 05-01-2024 Patient encounter procedure Marimar Zimmer [employer] -[facility] Work Phone: Start: 04-19-2024 End: 04-19-2024 ambulatory Efewongbe Oleghe Facility:[facility] Start: 04-19-2024 End: 04-19-2024 Patient encounter procedure Marimar Zimmer [employer] -[facility] Work Phone: Start: 04-17-2024 ambulatory Efdanay Miramontes OLS Fa cility:[facility] Start: 04-17-2024 [facility] Start: 04-13-2024 ambulatory Efewcarleen Miramontes OLS Fa cility:[facility] Start: 04-13-2024 [facility] Start: 04-11-2024 End: 04-11-2024 ambulatory Efewongbe Oleghe Facility:[facility] Start: 04-11-2024 End: 04-11-[address] [facility] Start: 04-07-2024 ambulatory Efewcarleen GARCIA Fa cility:[facility] Start: 04-07-[address] [facility]zada [facility] Start: 04-04-2024 ambulatory Efewongbe Oleghe OLS Fa cility:[facility] Start: 04-04-2024 [facility] Start: 03-13-2024 End: 03-13-2024 ambulatory Efewongbe Oleghe Facility:[facility] Start: 03-13-2024 End: 03-13-2024 Patient encounter procedure Marimar VASQUES -[facility] Work Phone: Start: 03-02-2024 End: 03-02-2024 ambulatory Efewongbe Oleghe Facility:[facility] Start: 03-02-2024 End: 03-02-2024 Patient encounter procedure Isidro HOOD -[facility] Work Phone: Start: 02-15-2024 End: 02-15-2024 ambulatory Efewongbe Oleghe Facility:[facility] Start: 02-15-2024 End: 02-15-[address] David Miramontes MD -[facility] Work Phone: Start: 02-14-2024 End: 02-14-2024 ambulatory Efewongbe Oleghe Facility:[facility] Start: 02-14-2024 End: 02-14-[address] Edson Quinn MD -[facility] Work Phone: Start: 02-03-2024 ambulatory Efewongbe Oleghe OLS Fa cility:[facility] Start: 01-12-2024 End: 01-12-2024 ambulatory Efewongbe Oleghe Facility:[facility] Start: 01-04-2024 ambulatory Efewongbe Oleghe OLS Fa cility:[facility] Start: 12-28-2023 End: 12-28-2023 ambulatory Efewongbe Oleghe Facility:[facility] Start: 12-07-2023 End: 12-07-2023 ambulatory Efewongbe Oleghe Facility:[facility] Start: 11-15-2023 End: 11-15-2023 ambulatory Efewongbe Oleghe Facility:[facility] Start: 11-08-2023 End: 11-08-2023 ambulatory Efewongbe Oleghe Facility:[facility] Start: 10-27-2023 End: 10-27-2023 ambulatory Efewongbe Oleghe Facility:[facility] Start: 10-05-2023 End: 10-05-2023 ambulatory Efewongbe Oleghe Facility:[facility] Start: 10-05-2023 End: 10-05-2023 ambulatory Efewongbe Oleamnae OLS Facility:[facility] Start: 09-27-2023 End: 09-27-2023 ambulatory Efewongbe Oleghe Facility:[facility] Start: 09-27-2023 End: 09-27-2023 ambulatory Efewongbe Oleamnae OLS Facility:[facility] Start: 09-06-2023 End: 09-06-2023 ambulatory Kyung Wright Facility:[facility] Start: 04-06-2023 End: 04-06-[address] Nicolas Kaur Work Phone: [facility] Work Phone: Start: 04-06-2023 End: 04-06-[address] Nicolas Kaur Work Phone: [facility] Start: 02-02-2023 End: 02-02-[address] Nicolas Kaur Work Phone: [facility] Work Phone: Start: 01-15-2023 End: 01-15-[address] Nicolas Kaur Work Phone: [facility] Work Phone: Start: 12-30-2022 End: 12-30-[address] Nicolas Kaur Work Phone: [facility] Work Phone: Start: 12-30-2022 End: 12-30-[address] Nicolas Kaur Work Phone: [facility] Start: 11-23-2022 End: 11-23-[address] Nicolas Kaur Work Phone: [facility] Work Phone: Start: 11-17-2022 End: 11-17-[address] Nicolas Kaur Work Phone: [facility] Work Phone: Start: 10-06-2022 End: 10-06-[address] Nicolas Kaur Work Phone: [facility] Work Phone: Start: 09-29-2022 End: 09-29-[address] Nicolas Kaur Work Phone: [facility] Start: 09-23-2022 End: 09-23-[address] Nicolas Kaur Work Phone: [facility] Work Phone: Start: 06-29-2022 End: 06-29-[address] Nicolas Kaur Work Phone: [facility] Work Phone: Start: 06-29-2022 End: 06-29-[address] Nicolas Kaur Work Phone: [facility] Start: 06-23-2022 End: 06-23-[address] Nicolas Kaur Work Phone: [facility] Start: 06-05-2022 ambulatory Yoli johnson [place] Comment on above: Population Health Na vigation Outreach ([facility] Gaps) Start: 05-18-2022 End: 05-18-[address] Nicolas Kaur Work Phone: [phone] [place] [address] Assisted Living Start: 04-14-2022 End: 04-14-[address] Nicolas Kaur Work Phone: [facility] Start: 04-01-2022 End: 04-01-[address] Nicolas Kaur Work Phone: [facility] Work Phone: Start: 04-01-2022 End: 04-01-[address] Nicolas Kaur Work Phone: [facility] Start: 03-16-2022 End: 03-16-[address] Nicolas Kaur Work Phone: [facility] Start: 02-24-2022 End: 02-24-[address] Nicolas Kaur Work Phone: [facility] Start: 01-07-2022 End: 01-07-[address] Nicolas Kaur Work Phone: [facility] Start: 01-05-2022 End: 01-05-[address] Nicolas Kaur Work Phone: [facility] Start: 12-24-2021 End: 12-24-[address] Nicolas Kaur Work Phone: [facility] Work Phone: Start: 12-24-2021 End: 12-24-[address] Nicolas Kaur Work Phone: [facility] Start: 12-24-[address] Nicolas Kaur Work Phone: [facility] Start: 12-15-2021 End: 12-15-[address] Nicolas Kaur Work Phone: [facility] Start: 12-10-2021 End: 12-10-[address] Nicolas Kaur Work Phone: [facility] Work Phone: Start: 12-10-2021 End: 12-10-[address] Nicolas Kaur Work Phone: [facility] Start: 12-10-[address] Nicolas Kaur Work Phone: [facility] Start: 12-09-2021 Telephone encounter Nicolas gutierrez MD Work Phone: [facility] [place] Comment on above: form dropping off Start: 11-26-2021 End: 11-26-[address] Nicolas Kaur Work Phone: [facility] Work Phone: Start: 11-26-2021 End: 11-26-[address] Nicolas Kuar Work Phone: [facility] Start: 11-12-[address] Nicolas Kaur Work Phone: [facility] Start: 10-29-[address] Nicolas Kaur Work Phone: [facility] Start: 10-23-2021 Telephone encounter Nicolas gutierrez MD Work Phone: [facility] [place] Comment on above: Patient Update Start: 10-22-2021 Non-patient / Non-visit Dr. Nicolas Kaur Work Phone: [facility] Start: 10-21-2021 Non-patient / Non-visit Dr. Nicolas Kaur Work Phone: [facility] Start: 10-20-2021 Non-patient / Non-visit Dr. Nicolas Kaur Work Phone: [facility] Inpatient Physicians Start: 10-20-2021 End: 10-22-2021 Evaluation and management of inpatient Dr. Nicolas Kaur Work Phone: [facility]-Medical Surgical 3 Start: 10-20-2021 End: 10-22-[address] 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 [...] Dr. Nicolas Kaur Work Phone: Start: 09-29-2021 streamOnce COVI D-19 VACCINE, AGE 12+ YR (LANGE TOP) Nicolas Kaur MD Work Phone: Urine culture Dr. Nicolas Farley Work Phone: Viral antigen assay Dr. Filiberto Kaur Work Phone: Plan of Treatment Date Care Activity Detail Author Start: 10-30-2024 Influenza vaccination Influenz a Vaccine (Season Ended) [facility] Start: 04-22-2024 [facility]ABET[facility]CREEN [facility] Start: 04-22-2024 Diabetes Screening Diabetes Screenin g [facility] Start: 03-01-2024 Advance Directive Discussion Advance Directive Discussion [facility] Start: 10-31-2023 Covid-19 Vaccine ( season) Covid-19 Vaccine ( season) [facility] Start: 10-30-2022 Influenza vaccination INFLUENZ A (Season Ended) [facility] Start: 05-12-2022 SHINGRIX VACCINE (2 of 3) DUMAS GRIX VACCINE (2 of 3) [facility] Comment on above: Postponed from 07/18 (Declined at this time) Start: 03-01-2022 ADVANCE DIRECTIVE DISCUSSION ADVANCE DIRECTIVE DISCUSSION [facility] Start: 11-24-2021 COVID-19 VACCINE (5 - Booster for Pfizer series) COVID-19 VACCINE (5 - Booster for Pfizer series) [facility] Start: 10-30-2021 Influenza vaccination INFLUENZA (#1) [facility] Start: 10-22-2021 Patient discharge [facility] Work Phone: Start: 10-21-2021 Following clinical p athway protocol [facility] Work Phone: Start: 10-21-2021 Assessment of risk o f venous thromboembolism [facility] Work Phone: Start: 10-21-2021 Insertion of cathete r into peripheral vein [facility] Work Phone: Start: 10-21-2021 Oxygen therapy [facility] Work Phone: Start: 10-21-2021 Providing care accor ding to standard [facility] Work Phone: Start: 10-21-2021 Provision of activit y privileges [facility] Work Phone: Start: 10-21-2021 Referral to occupati onal therapist [facility] Work Phone: Start: 10-21-2021 Referral to service [facility] Work Phone: Start: 10-21-2021 [facility] Work Phone: Start: 10-21-2021 Verification routine [facility] Work Phone: Start: 10-21-2021 CT angiography of he ad and neck CTA Head AND Neck W/ Contrast [facility] Work Phone: Start: 10-21-2021 CTA Head vessels and Neck vessels W contrast IV [facility] Work Phone: Start: 10-20-2021 [facility] Work Phone: Start: 10-20-2021 Admission procedure [facility] Work Phone: Start: 09-11-2021 COVID-19 VACCINE (4 - Booster for Pfizer series) COVID-19 VACCINE (4 - Booster for Pfizer series) [facility] Start: 08-23-2021 Urine microalbumin profile [facility] Comment on above: Postponed from 07/15 (Declined at this time) Start: 2014 RSV Vaccine (1 - 1-d ose 75+ series) RSV Vaccine (1 - 1-dose 75+ series) [facility] Start: 07-18-2013 SHINGRIX VACCINE (2 of 3) DUMAS GRIX VACCINE (2 of 3) [facility] Start: 07-15-2010 Urine microalbumin profile [facility] CYTOLOGY 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 CYTOLOGY NON-GY N Lab Routine Gross hematuria Ordered: 07/14/2024 [facility] Work Phone: Comment on above: Ordered: 07/14/2024 Patient Education ED Fall with Uncertain Cause [facility] Work Phone: Patient referral [facility] Work Phone: [facility] Immunizations Immunization Date Immunization Notes Care Provider Fa cility 09-29-2021 COVID-19 vaccine, ag e 12+ yr (PFIZER-BIONTTaecanet - [facility]) Nicolas Kaur MD Work Phone: [facility] Work Phone: 05-12-2021 COVID-19 vaccine, ag e 12+ yr (PFIZER-BIONTECH - LANGE TOP) Nicolas Kaur MD Work Phone: [facility] 03-31-2021 influenza, high-dose , quadrivalent vaccine (FLUZONE HIGH DOSE QUADRIVALENT) Nicolas Kaur MD Work Phone: [facility] Work Phone: 03-31-2021 influenza virus vaccine, unspecified formulation Diana Arango FOREST FIRE FIGHTER.REGIONAL OFFICE COORDINATOR Work Phone: [facility] 06-17-2020 COVID-19 vaccine, ag e 12+ yr (PFIZER-BIONTECH - PURPLE TOP) Nicolas Kaur MD Work Phone: [facility] Work Phone: 05-27-2020 COVID-19 vaccine, ag e 12+ yr (PFIZER-BIONTECH - PURPLE TOP) Nicolas Kaur MD Work Phone: [facility] Work Phone: 04-22-2020 influenza, high-dose , quadrivalent vaccine (FLUZONE HIGH DOSE QUADRIVALENT) Nicolas Kaur MD Work Phone: [facility] Work Phone: 01-19-2019 influenza, high dose seasonal, preservative-free Nicolas Kaur MD Work Phone: [facility] 02-03-2018 influenza, high dose seasonal, preservative-free Nicolas Kaur MD Work Phone: [facility] 01-18-2017 influenza, high dose seasonal, preservative-free Nicolas Kaur MD Work Phone: [facility] 12-27-2015 influenza, high dose seasonal, preservative-free Nicolas Kaur MD Work Phone: [facility] 12-26-2014 influenza, high dose seasonal, preservative-free Nicolas Kaur MD Work Phone: [facility] 06-26-2014 pneumococcal conjuga te vaccine, 13 valent Nicolas Kaur MD Work Phone: [facility] 12-28-2013 influenza, seasonal, injectable Nicolas Kaur MD Work Phone: [facility] 05-23-2013 zoster vaccine, live Nicolas Kaur MD Work Phone: [facility] 07-14-2010 tetanus and diphther ia toxoids, adsorbed, preservative free, for adult use (2 Lf of tetanus toxoid and 2 Lf of diphtheria toxoid) Nicolas Kaur MD Work Phone: [facility] Work Phone: 01-13-2006 pneumococcal polysaccharide vaccine, 23 valent Nicolas Kaur MD Work Phone: [facility] Payers Date Payer Category Payer Self-pay [id number] 2013 Private Health Insurance [facility] AARP SUPPLEMENT [id number] 2013-Present [phone] [address] [place] [address] Indemnity [id number] 2013 Private Health Insurance [id number] 2013 Unknown [id number] 2004 Medicare MEDICARE MEDICAR E A AND B [id number] 2004-Present [phone] [address] [address] [place] [address] Medicare [id number] 2004 Medicare [id number] 2004 Medicare [id number] Private Health Insurance [facility] [id number] Unknown [id number] 2.16.840.1.879891.3.579.2 .462 Unknown [id number] 2.16.840.1.047680.3.579.2 .462 Unknown [id number] 2.16.840.1.317780.3.579.2 .462 Unknown [id number] 2.16.840.1.971417.3.579.2 .462 Unknown [id number] 2.16.840.1.202711.3.579.2 .462 Unknown [id number] 2.16.840.1.343886.3.579.2 .462 Unknown [id number] 2.16.840.1.083846.3.579.2 .462 Unknown [id number] 2.16.840.1.920465.3.579.2 .462 Unknown [id number] 2.16.840.1.470865.3.579.2 .462 Unknown [id number] 2.16.840.1.953942.3.579.2 .462 Unknown [id number] 2.16.840.1.070920.3.579.2 .462 Unknown [id number] 2.16.840.1.929208.3.579.2 .462 Unknown [id number] 2.16.840.1.791424.3.579.2 .462 Unknown [id number] 2.16.840.1.662618.3.579.2 .462 Unknown [id number] 2.16.840.1.526194.3.579.2 .462 Unknown [id number] 2.16.840.1.618864.3.579.2 .462 Unknown [id number] 2.16.840.1.975712.3.579.2 .462 Unknown [id number] 2.16.840.1.836869.3.579.2 .462 Unknown [id number] 2.16.840.1.956062.3.579.2 .462 Unknown [id number] 2.16.840.1.081445.3.579.2 .462 Unknown [id number] 2.16.840.1.788798.3.579.2 .462 Unknown [id number] 2.16.840.1.214185.3.579.2 .462 Unknown [id number] 2.16.840.1.402358.3.579.2 .462 Unknown [id number] 2.16.840.1.812518.3.579.2 .462 Unknown [id number] 2.16.840.1.174534.3.579.2 .462 Unknown [id number] 2.16.840.1.844099.3.579.2 .462 Unknown [id number] 2.16.840.1.355104.3.579.2 .462 Unknown [id number] 2.16.840.1.930777.3.579.2 .462 Unknown [id number] 2.16.840.1.728273.3.579.2 .462 Unknown [id number] 2.16.840.1.789943.3.579.2 .462 Unknown [id number] 2.16.840.1.765975.3.579.2 .462 Unknown [id number] 2.16.840.1.455378.3.579.2 .462 Unknown [id number] 2.16.840.1.632312.3.579.2 .462 Unknown [id number] 2.16.840.1.774120.3.579.2 .462 Unknown [id number] 2.16.840.1.270465.3.579.2 .462 Unknown [id number] 2.16.840.1.513684.3.579.2 .462 Unknown [id number] 2.16.840.1.086994.3.579.2 .462 Unknown [id number] 2.16.840.1.180543.3.579.2 .462 Unknown [id number] 2.16.840.1.620695.3.579.2 .462 Unknown [id number] 2.16.840.1.432429.3.579.2 .462 Unknown [id number] 2.16.840.1.931975.3.579.2 .462 Unknown [id number] 2.16.840.1.862506.3.579.2 .462 Unknown [id number] 2.16.840.1.436537.3.579.2 .462 Unknown [id number] 2.16.840.1.062025.3.579.2 .462 Unknown [id number] 2.16840.1.497733.3.579.2 .462 Social History Date Type Detail Facility Start: 04-22-2012 End: 01-06-2024 Tobacco smoking status NHIS Ex-smoker [facility] Start: [birth year]-01-1949 End: 03-01-1959 History of tobacco use Current smoker [facility] Start: 03-01-1949 End: 03-01-1959 History of tobacco use Cigarette Smoker [facility] Start: 05-12-2021 End: 07-14-2024 Alcohol intake Current non-drinker of alcohol (finding) [facility] Start: 1940 Sex Assigned At Not on file [facility] Start: 09-19-2021 End: 09-29-2021 Exposure to SARS-CoV-2 (event) Not sure [facility] Work Phone: Start: 10-21-2021 End: 12-02-2022 Tobacco smoking status NDIS Unknown if ever smoked [facility] Start: 1940 Sex Assigned At Male [facility] Start: 04-22-2012 End: 07-14-2024 Cigarettes smoked current (pack per day) - Reported 1 [facility] Start: 04-22-2012 Tobacco use and exposure Smokeless tobacco non-user [facility] Work Phone: Start: 06-05-2024 End: 06-21-2024 Sex Male (finding) [facility] Start: 02-03-2018 End: 07-14-2024 Tobacco use panel [facility] Adult Depression Screening Assessment 0 [facility] Goals Date Patient Goal Desired Activity /State Functional Status Date Assessment Result Facility 10-22-2021 Functional status Bedrest [facility] Work Phone: 06-26-2014 Are you deaf, or do you have serious difficulty hearing No 06/26/2014 10:08 AM Anjelica Esparza Cma [facility] 06-26-2014 Are you blind, or do you have serious difficulty seeing, even when wearing glasses No 06/26/2014 10:08 AM EDT Anjelica Perez [facility] 06-26-2014 Do you have serious difficulty walking or climbing stairs No 06/26/2014 10:08 AM Anjelica Esparza [facility] 06-26-2014 Do you have difficul ty dressing or bathing No 06/26/2014 10:08 AM Anjelica Esparza [facility] 06-26-2014 Because of a physica l, mental, or emotional condition, do you have difficulty doing errands alone such as visiting a physician's office or shopping No 06/26/2014 10:08 AM EDAnjelica Moore Cma [facility] Mental Status Date Assessment Result Facility 10-22-2021 Cognitive function Voice/Name [facility] Work Phone: 10-20-2021 Cognitive function Appropriate;Cony starks [facility] Work Phone: 06-26-2014 Because of a physica l, mental, or emotional condition, do you have serious difficulty concentrating, remembering, or making decisions No 06/26/2014 10:08 AM EDAnjelica Moore Cma [facility] Clinical Notes 09-16-2018 to 07-17-2024 Telephone [...] has no further questions. Stefany Mcclure RN [facility] Work Phone: 07-17-2024 Miscellaneous Notes Spoke [...] if he wishes. documented in this encounter [facility] 07-17-2024 Telephone encounter Note ----- Message from Diana Arango APRN.CNP sent at 07/17/2024 11:12 AM EDT ----- Please notify patient/patient's son that patient's cytology came back negative for high-grade urothelial carcinoma. This is great news! Given his mentation and mobility -- we could hold off on CT/cysto if he wishes. [facility] 07-14-2024 History of Present illness Narrative Images from the original note were not included. [facility] [place] [facility] [place] NEW PATIENT UROLOGY VISIT 07/14/2024 8:51 AM [...] (no units) Date Value 08/12/2018 Negative Specific [place], [place] (no units) Date Value 08/12/2018 1.018 [...] intervention based on that result. - CYTOLOGY 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 - Call son with results. Will make treatment plan decision from there. Follow-up as needed. Diana Arango APRN.CNP documented in this encounter [facility] 07-14-2024 Note HNO ID: [id number] Author: DIANA ARANGO APRN.CNP Service: ? Author Type: Nurse Practitioner Type: Progress Notes Filed: 07/14/2024 09:11 Note Text: [facility] [place] [facility] [place] NEW PATIENT UROLOGY VISIT 07/14/2024 [...] at baseline. Psychiatric: (more content not included)... [facility] 06-05-2022 Note HNO ID: [id number] Author: Yoli Kong Service: ? Author Type: ? Type: Progress Notes Filed: 06/05/2022 2:00 PM Note Text: POPULATION HEALTH NAVIGATION OUTREACH Action/ 1st attempt: Spoke to patient's daughter. Patient now resides at [facility] and receives medical care there. [...] Yoli Kong June 05, 2022 1:58 PM [facility] 06-05-2022 Note Patient Outreach (JEAN CLAUDE ABDI) ---- KEL DILLARD ([id number]) 1940 M Date Time Provider Department 06/05/22 YOLI KONG During your visit today, we recorded the following information about you: Yoli Kong 06/05/2022 2:00 PM Signed POPULATION HEALTH NAVIGATION OUTREACH Action/ attempt: Spoke to patient's daughter. Patient now resides at [facility] and receives medical care there. [...] Encounter Status:Closed by YOLI KONG on 06/05/22 [facility] 06-05-2022 History of Present illness Narrative POPULATION HEALTH NAVIGATION OUTREACH Action/ 1st attempt: Spoke to patient's daughter. Patient now resides at [facility] and receives medical care there. [...] Yoli Kong June 05, 2022 1:58 PM documented in this encounter [facility] 12-11-2021 Miscellaneous Notes Forms pts son brought in have been sent to medical records. Pts son notified. He can pick them up there. Son (Jhonny) calls in and provider message reviewed. Son asking if form brought in can be picked back up in Medical Records. Please contact Jhonny at [phone]. Preethi Delgadillo RN I have not seen him since hospital stay and he is now under the [place] attending physician's care. It is more appropriate for the [place] attending physician to do another form. More statements need corrected/updated Form to pcp to review. Patient son Jhonny calling said PCP completed expert evaluation form on 09/29 for guardianship and 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 Son Jhonny said 2 weeks after form was done father had fall and was taken to [facility] then sent to [facility] for rehab. Now father is in memory care unit, his dementia is at 6 out of 7. Son is going to drop off new form to be competed, since father can not care for himself or do anything for himself. Please advise documented in this encounter [facility] 10-23-2021 Miscellaneous Notes Per [facility] discharge info pt was discharged to [facility] 10/22/21. documented in this encounter [facility] 09-29-2021 Note HNO ID: [id number] Author: Nicolas Kaur MD Service: ? Author Type: Physician Type: Progress Notes Filed: 09/29/2021 6:08 PM Note Text: This note was created using [employer]ter. Subjective Kel Dillard is a 81 year old male. He was here with his son. He was home bound due to memory loss and cognitive deficits. He gets lost if he wandered outside. Son was here with form requesting guardianship. This was part of POA he was establishing. They were exploring fpc placement in anticipation of need, but Kel [...] vaccine - ICD9: V04.89, ICD10: Z23 - Navdy-BIONTTaecanet COVID-19 VACCINE, AGE 12+ YR (LANGE TOP) 6. 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 Form completed. Patient and son indicated understanding and willingness to follow recommendations. Nicolas Kaur MD [facility] 09-29-2021 Note HNO ID: [id number] Author: Nicolas Kaur MD Service: ? Author [...] current specialists seen: Pulmonary- Dr. Valle Card[facility]- [place] [facility] Hand Scraper- Barb End of Live Planning discussed including [...] and Tdap at pharmacy Nicolas Kaur MD [facility] 09-29-2021 History of Present illness Narrative [...] POA he was establishing. They were exploring fpc placement in anticipation of need, but Kel [...] vaccine - ICD9: V04.89, ICD10: Z23 - Navdy-BIOQoL Meds COVID-19 VACCINE, AGE 12+ YR (LANGE TOP) [...] current specialists seen: Pulmonary- Dr. Valle Cardiology- [place] [facility] Hand Scraper- Barb End of Live Planning discussed including [...] Nicolas Kaur MD documented in this encounter [facility] 07-15-2021 Miscellaneous Notes Yesenia, Admissions staff member at [facility] calling to state patient's son Jhonny has reached out to them to request patient possibly be admitted into their memory care unit due to cognition concerns. Yesenia is requesting notes from patient's last OV be faxed to them at [phone]. This nurse contacted son Jhonny to verify the request and he confirmed it was ok to share requested information. Information faxed as requested. Karen Matias RN documented in this encounter [facility] 09-16-2018 History of Past i llness [...] of this encounter (statuses as of 07/15/2021) [facility] History of Past illness Narrative* Problem [...] of this encounter (statuses as of 09/29/2021) [facility] History of Past illness Narrative* Problem [...] of this encounter (statuses as of 10/23/2021) [facility] History of Past illness Narrative* Problem [...] of this encounter (statuses as of 12/11/2021) [facility] History of Past illness Narrative* Problem [...] of this encounter (statuses as of 06/05/2022) [facility] Diagnosis Medicare annual wellness visit, subsequent- Primary Routine general medical examination at a health care facility Cognitive impairment Unspecified persistent mental disorders due to conditions classified elsewhere Essential tremor Essential and other specified forms of tremor Essential hypertension, benign Need for COVID-19 vaccine 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) documented in this encounter [facility] Diagnosis Onset Date Resolution Status Adult failure to thrive acut e Chronic anticoagulation acut e Fall acute History of atrial fibrillation acute [facility] Work Phone: Evaluation noteNo assessment information available [facility] Work Phone: Evaluation note* Diagnosis Gross hematuria- Primary documented in this encounter [facility])No reason for referral information [facility] Work Phone: Advance Directives No Advanced Directives Records FoundDocuments on File Type Date Recorded Patient Mandate Retail Service Merchandiser Expl anation Advance Directive(s) 04/29/2021 2:28 PM Advance Directive(s) 09/08/2016 1:42 PM Advance Directive(s) 08/31/2016 10:18 AM Advance Directive(s) 04/09/2016 12:30 PM Advance Directive(s) 04/06/2016 10:07 AM Advance Directive(s) 10/09/2011 11:10 AM Advance Directive Response Recorded Date/ Time Advance Directives No October 10:42am Living Will No October 20 8:26pm Power of Logistics Specialist No October 20 8:26pm Advance Directive Response Recorded Date/ Time Advance Directives No October 10:42am Living Will No October 21 1:16am Power of Logistics Specialist No October 21 1:16am Documents on File Type Date Recorded Patient Mandate Retail Service Merchandiser Expl anation Advance Directive(s) 04/29/2021 2:28 PM Advance Directive(s) 10/09/2011 11:10 AM Advance Directive Response Recorded Date/ Time Advance Directives No April 02, 2022 2:41pm Living Will No April 02 2:41pm Power of Logistics Specialist No April 02, 2022 2:41pm Advance Directive Response Recorded Date/ Time Advance Directives No April 02, 2022 3:41pm Living Will No April 02 3:41pm Power of Logistics Specialist No April 02, 2022 3:41pm Advance Directive Response Recorded Date/ Time Advance Directives No December 02, 2022 9:40am Living Will No December 02 9:40am Power of Logistics Specialist No December 02 023 9:40am Advance Directive [...] DEBILITY FALL, DEBILITY LAB WORK LAB WORK ALF LAB WORK MONTHLY EXAM Chief Complaint FALL, DEBILITY FALL, DEBILITY FALL, DEBILITY FALL, DEBILITY LAB WORK LAB WORK ALF LAB WORK ALF LABWORK MONTHLY EXAM Chief Complaint FALL, DEBILITY FALL, DEBILITY FALL, DEBILITY FALL, DEBILITY LAB WORK LAB WORK ALF LAB WORK ALF LABWORK MONTHLY EXAM ALF LAB WORK Chief Complaint ALF LAB WOR K MONTHLY EXAM ALF LAB WORK MONTHLY EXAM MONTHLY EXAM ALF LAB WORK Chief Complaint MONTHLY EXAM ALF LAB WORK MONTHLY EXAM new problem MONTHLY EXAM ALF LABWORK Chief Complaint MONTHLY EXAM ALF LAB WORK MONTHLY EXAM ANNUAL EXAM MONTHLY EXAM ALF LAB WORK Chief Complaint ALF LAB WOR K NEW CONCERN MONTHLY EXAM LABWORK Chief Complaint Admit Date Pacer Check Remote February 14, 2024 12:11am MONTHLY EXAM February 15, 2024 9:13pm MONTHLY EXAM March 02, 2024 11 :09am NEW CONCERN March 13, 2024 1 :23pm ALF LAB WORK April 04, 2024 5:00am ALF LAB WORK April 07, 2024 4:00am ALF LAB WORK April 07, 2024 10:45am MONTHLY EXAM April 11, 2024 12:58pm ALF LAB WORK April 13 5:00am LABWORK April [...] NEW CONCERN March 13, 2024 1 :23pm ALF LAB WORK April 04, 2024 5:00am ALF LAB WORK April 07, 2024 4:00am ALF LAB WORK April 07, 2024 10:45am MONTHLY EXAM April 11, 2024 12:58pm ALF LAB WORK April 13 5:00am LABWORK April [...] NEW CONCERN March 13, 2024 1 :23pm ALF LAB WORK April 04, 2024 5:00am ALF LAB WORK April 07, 2024 4:00am ALF LAB WORK April 07, 2024 10:45am MONTHLY EXAM April 11, 2024 12:58pm ALF LAB WORK April 13 5:00am LABWORK April [...] NEW CONCERN March 13, 2024 1 :23pm ALF LAB WORK April 04, 2024 5:00am ALF LAB WORK April 07, 2024 4:00am ALF LAB WORK April 07, 2024 10:45am MONTHLY EXAM April 11, 2024 12:58pm ALF LAB WORK April 13 5:00am LABWORK April [...] TOES PVD May 30, 2024 8:36 am ALF LAB WORK June 05, 2024 4: 00am Chief Complaint Admit Date ALF LAB WORK April 04, 2024 5:00am ALF LAB WORK April 07, 2024 4:00am ALF LAB WORK April 07, 2024 10:45am MONTHLY EXAM MD April 11, 2024 12:58pm ALF LAB WORK April 13 5:00am LABWORK April [...] TOES PVD May 30, 2024 8:36 am ALF LAB WORK June 05, 2024 4: 00am [...] TOES PVD May 30, 2024 8:36 am ALF LAB WORK June 05, 2024 4: 00am LABWORK June 23, 2024 5:0 0am LABWORK July 21, 2024 5:00a m ALF LAB WORK August 01, 2024 5:0 0am [...] this informatio n is protected by the [facility] Confidentiality of Alcohol and Drug Abuse Patient Records regulations: The Federal rules restrict any use of the information to criminally investigate or prosecute any alcohol or drug abuse patient.[facility] the event this information is protected by the Federal Confidentiality of Alcohol and Drug Abuse Patient Records regulations: The Federal rules restrict any use of the information to criminally investigate or prosecute any alcohol or drug abuse patient.[facility] the event this information is protected by the Federal Confidentiality of Alcohol and Drug Abuse Patient Records regulations: The Federal rules restrict any use of the information to criminally investigate or prosecute any alcohol or drug abuse patient.[facility] the event this information is protected by the Federal Confidentiality of Alcohol and Drug Abuse Patient Records regulations: The Federal rules restrict any use of the information to criminally investigate or prosecute any alcohol or drug abuse patient.[facility] the event this information is protected by the Federal Confidentiality of Alcohol and Drug Abuse Patient Records regulations: The Federal rules restrict any use of the information to criminally investigate or prosecute any alcohol or drug abuse patient.[facility] the event this information is protected by the Federal Confidentiality of Alcohol and Drug Abuse Patient Records regulations: The Federal rules restrict any use of the information to criminally investigate or prosecute any alcohol or drug abuse patient.[facility] the event this information is protected by the Federal Confidentiality of Alcohol and Drug Abuse Patient Records regulations: The Federal rules restrict any use of the information to criminally investigate or prosecute any alcohol or drug abuse patient.[facility] Reason for Visit (unrecogniz ed section [...] 2024 End: April 19, 2024 Marimar Zimmer SUPERVISOR [employer], SUPERVIS[employer]-C Attending Provider Active Start: April 19, 2024 End: April 19, 2024 Team Status: Inactive Member Role Status Dates Dr. David Miramontes MD Primary Care Provider Active Start: May 01, 2024 End: May 01, 2024 Marimar Zimmer SUPERVIS[employer], SUPERVIS[employer]-C Attending Provider Active Start: May 01, 2024 End: May 01, 2024 Team Status: Inactive Member Role Status Dates Dr. David Miramontes MD Primary Care Provider Active Start: May 11, 2024 End: May 11, 2024 Marimar Zimmer SUPERVISOR [employer], SUPERVISOR [employer]-C Attending Provider Active Start: May 11, 2024 [...] 2024 End: May 18, 2024 Marimar Zimmer SUPERVISOR [employer], SUPERVISOR [employer]-C Attending Provider Active Start: May 18, 2024 [...] June 23, 2024 End: June 23, 2024 Manufacturing Quality Engineer Relationship Specialty Start Date End Date Nicolas Kaur MD [address] [place], [place] [id number] PCP - General 02/12/03 Manufacturing Quality Engineer Relationship Specialty Start Date End Date Nicolas Karu MD [address] [place], [place] [id number] PCP - General 02/12/03 Manufacturing Quality Engineer Relationship Specialty Start Date End Date Nicolas Kaur MD [address] [place] [address] PCP - General 02/12/03 Manufacturing Quality Engineer Relationship Specialty Start Date End Date Nicolas Kaur MD [address] [place] [address] PCP - General 02/12/03 Team Status: Active Member Role Status Dates Dr. Nicolas Kaur MD Family Provider Active Dr. Nicolas Kaur MD Primary Care Provider Active Team Status: Inactive Member Role Status Dates Dr. Nicolas Kaur MD Primary Care Provider Active Marimar Zimmer SUPERVIS[employer], SUPERVISOR [employer]-C Attending Provider Active Team Status: Inactive Member [...] March 02, 2024 End: March 02, 2024 ERIWN Doss Attending Provider Active St art: March 02, 2024 End: March 02, 2024 Team Status: Inactive Member Role Status Dates Dr. David Miramontes MD Primary Care Provider Active Start: March 13, 2024 End: March 13, 2024 Marimar Zimmer SUPERVISOR [employer], SUPERVISOR [employer]-C Attending Provider Active Start: March 13, 2024 [...] 2024 End: May 01, 2024 Marimar Zimmer SUPERVISOR [employer], SUPERVISOR [employer]-C Attending Provider Active Start: May 01, 2024 End: May 01, 2024 Team Status: Inactive Member Role/Relationship Status Dates Dr. David Miramontes MD Primary Care Provider Active Start: May 11, 2024 End: May 11, 2024 Marimar Zimmer SUPERVISOR [employer], SUPERVISOR [employer]-C Attending Provider Active Start: May 11, 2024 [...] 2024 End: May 18, 2024 Marimar Zimmer SUPERVISOR [employer], SUPERVISOR [employer]-C Attending Provider Active Start: May 18, 2024 [...] 2024 End: May 30, 2024 Marimar Zimmer SUPERVISOR [employer], SUPERVISOR [employer]-C Attending Provider Active Start: May 30, 2024 [...] section and content) DATE CREATED AUTHOR 06/08/2022 [facility] DATE CREATED AUTHOR AUTHOR'S ORGANIZ ATION 07/17/2024 [facility] DATE CREATED AUTHOR AUTHOR'S ORGANIZ ATION 08/26/2024 [facility] FOR RECORDS PERTAINING TO PATIENTS [...] BE BASED ON THE PRIMARY CLINICAL RECORDS. [facility]. provides no warranty or guarantee of the accuracy or completeness of information in this document.
[2024-08-31 09:12] LABS: Anion Gap 10 (5-15); BUN 12 mg/dL (4-19); BUN/Creat Ratio 12.4 RATIO (10-20); Calcium,Total 9.4 mg/dL (7.6-11.0); Carbon Dioxide 26.4 mmol/L (21.0-32.0); Chloride 103 mmol/L (98-108); Glucose 86 mg/dL (70-99); Potassium 4.2 mmol/L (3.3-5.1)
== END ==
LOC: OLS.WHLCAR 05:00
PROVIDERS: PCP Internal Medicine; Visit Provider Internal Medicine
DX: I10 Essential (primary) hypertension (principal)
CPT/HCPCS: 36415; 80048

== ENCOUNTER → 2024-09-07 | Outpatient (REF) | payer MEDICARE, OTHER, SELFPAY ==
[2024-09-07 09:45] LABS: Anion Gap 9 (5-15); BUN 16 mg/dL (4-19); BUN/Creat Ratio 15.9 RATIO (10-20); Calcium,Total 9.3 mg/dL (7.6-11.0); Carbon Dioxide 28.4 mmol/L (21.0-32.0); Chloride 104 mmol/L (98-108); Glucose 80 mg/dL (70-99); Potassium 4.0 mmol/L (3.3-5.1)
== END ==
LOC: OLS.WHLCAR 05:00
PROVIDERS: PCP Internal Medicine; Visit Provider Internal Medicine
DX: I10 Essential (primary) hypertension (principal)
CPT/HCPCS: 36415; 80048

== ENCOUNTER → 2024-09-25 12:00 | Outpatient (REF) | payer MEDICARE, OTHER, SELFPAY ==
--- OUTSIDE RECORDS SUMMARY | 2024-09-26 07:34 | XMS RPT_ITS | CCD ---
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 Nicolas Kaur Primary Care Provider Dr. Abhinav Leigh Emergency Provider Dr. Robinson Nguyen Admit Provider Dr. Robinson Nguyen Attending Provider Dr. Robinson Nguyen Other Provider Dr. Kevin Nichole Attending Provider Dr. Kevin Nichole Other Provider Dr. Desire Leung Attending Provider Nicolas Kaur MD Primary Care Provider Mesha TRIAL MANAGER, TRIAL MANAGER-C Marimar Attending Provider Dr. Nicolas Justin Primary Care Provider Mesha TRIAL MANAGER, TRIAL MANAGER-C Marimar Attending Provider Dr. David Nina Attending Provider Unavailable Primary Care Provider UnavailNICOLAS Blankenship Referring Unavailable NICOLAS KAUR Attending Unavailable NICOLAS KAUR Primary Care Unavailable Dr. Nicolas Kaur Primary Care Provider Mesha TRIAL MANAGER, TRIAL MANAGER-C Marimar Attending Provider Dr. David Nina Attending Provider Dr. Nicolas Kaur Primary Care Provider Mesha TRIAL MANAGER, TRIAL MANAGER-C Marimar Attending Provider Dr. Frandy Ninaongbe Attending Provider Dr. Nicolas Kaur Primary Care Provider Mesha TRIAL MANAGER, TRIAL MANAGER-C Marimar Attending Provider Dr. David Miramontes Attending Provider [phone] Dr. David Miramontes MD Primary Care Provider Dr. Edson Quinn MD Attending Provider Dr. Edsno Quinn MD Referring Provider [phone] Dr. David Miramontes MD Attending Provider Isidro Can Attending Provider Mesha TRIAL MANAGER-CMarimar Attending Provider David Miramontes MD Attending Provider [...] David Miramontes MD Primary Care Provider Mesha TRIAL MANAGER-CMarimar Attending Provider Unavailable Primary Care Provider Unavailabl DIANA Sampson Attending Unava ilable SELF Referring Unavailable Dr. David Miramontes MD Primary Care Provider Mesha TRIAL MANAGER-CMarimar Attending Provider David Miramontes MD Attending Provider Unavailapril Miramontes MD, Dr. Win Attending Provider [phone] Oleghe MD, Efewongbe Referring Provider Unavaila arthur Miramontes MD, Dr. Win Primary Care Provider Marimar Esteban Attending Provider Kai ALAMO, Dr. Sandhu Attending Provider Kai ALAMO, Dr. Sandhu Referring Provider Oleghe, Efewongbe Primary Care Unavailable Oleghe OLS, Efewongbe Attending Unavailabl e Oleghe OLS, Efewongbe Referring Unavailabl e Oleghe OLS, Efewongbe Attending Unavailabl e Oleghe, Efewongbe Primary Care Unavailable Oleghe OLS, Efewongbe Attending Unavailabl e Oleghe, Efewongbe Primary Care Unavailable Oleghe, Efewongbe Primary Care Unavailable Marimar Zimmer NP Attending Unavailable Oleghe OLS, Efewongbe Attending Unavailabl e Oleghe, Efewongbe Primary Care Unavailable Oleghe, Efewongbe Primary Care Unavailable Oleghe OLS, Efewongbe Attending Unavailabl e Oleghe, Efewongbe Primary Care Unavailable Oleghe, Efewongbe Referring Unavailable Oleghe, Efewongbe Attending Unavailable Oleghe, Efewongbe Primary Care Unavailable Oleghe OLS, Efewongbe Attending Unavailabl e Oleghe, Efewongbe Primary Care Unavailable Josiah Klein Attending Unavailable Oleghe, Efewongbe Referring Unavailable Oleghe, Efewongbe Primary Care Unavailable Oleghe OLS, Efewongbe Attending Unavailabl e Oleghe OLS, Efewongbe Attending Unavailabl e Oleghe, Efewongbe Primary Care Unavailable Oleghe OLS, Efewongbe Referring Unavailabl e Oleghe OLS, Efewongbe Attending Unavailabl e Oleghe, Efewongbe Primary Care Unavailable Oleghe OLS, Efewongbe Attending Unavailabl e Oleghe, Efewongbe Primary Care Unavailable Oleghe, Efewongbe Primary Care Unavailable Oleghe OLS, Efewongbe Attending Unavailabl e Oleghe, Efewongbe Primary Care Unavailable Oleghe OLS, Efewongbe Attending Unavailabl e Oleghe, Efewongbe Primary Care Unavailable Oleghe OLS, Efewongbe Attending Unavailabl e Oleghe, Efewongbe Primary Care Unavailable Oleghe OLS, Efewongbe Attending Unavailabl e Oleghe, Efewongbe Primary Care Unavailable Isidro Can Attending Unavailable Oleghe, Efewongbe Primary Care Unavailable Kyung Wright Attending Unavailable Oleghe, Efewongbe Primary Care Unavailable [place] TRIAL MANAGER, Marimar Attending Unavailable Oleghe, Efewongbe Primary Care Unavailable [place] TRIAL MANAGER, Marimar Attending Unavailable Oleghe OLS, Efewongbe Referring Unavailabl e Oleghe, Efewongbe Primary Care Unavailable Oleghe, Efewongbe Attending Unavailable Oleghe, Efewongbe Primary Care Unavailable Kai, [place] Referring Unavailable Kai, [place] Attending Unavailable Oleghe, Efewongbe Primary Care Unavailable [place] TRIAL MANAGER, Marimar Attending Unavailable Oleghe, Efewongbe Primary Care Unavailable Oleghe, Efewongbe Attending Unavailable Oleghe, Efewongbe Primary Care Unavailable Oleghe, Efewongbe Attending Unavailable Oleghe, Efewongbe Primary Care Unavailable Kai, Edson Referring Unavailable Kai, Edson Attending Unavailable Oleghe, Efewongbe Primary Care Unavailable [place] TRIAL MANAGER, Marimar Attending Unavailable Oleghe, Efewongbe Primary Care Unavailable [place] TRIAL MANAGER, Marimar Attending Unavailable Oleghe, Efewongbe Primary Care Unavailable [place] TRIAL MANAGER, Marimar Attending Unavailable Kai, Edson Referring Unavailable Kai, [place] Attending Unavailable Oleghe, Efewongbe Primary Care Unavailable Oleghe, Efewongbe Primary Care Unavailable Kai, Edson Referring Unavailable Kai, [place] Attending Unavailable Oleghe, Efewongbe Primary Care Unavailable [place] TRIAL MANAGER, Marimar Attending Unavailable Oleghe, Efewongbe Primary Care Unavailable Kai, [place] Referring Unavailable Kai, [place] Attending Unavailable Oleghe, Efewongbe Primary Care Unavailable [place] TRIAL MANAGER, Marimar Attending Unavailable Oleghe, Efewongbe Primary Care Unavailable Oleghe, Efewongbe Attending Unavailable Oleghe, Efewongbe Primary Care Unavailable Oleghe, Efewongbe Attending Unavailable Oleghe, Efewongbe Primary Care Unavailable [place] TRIAL MANAGER, Marimar Attending Unavailable Oleghe, Efewongbe Primary Care Unavailable Kai, [place] Attending Unavailable Kai, Edson Referring Unavailable Oleghe, Efewongbe Primary Care Unavailable Kai, Edson Referring Unavailable Kai, [place] Attending Unavailable Oleghe, Efewongbe Primary Care Unavailable [place] TRIAL MANAGER, Marimar Attending Unavailable Oleghe, Efewongbe Primary Care Unavailable [place] TRIAL MANAGER, Marimar Attending Unavailable Oleghe, Efewongbe Attending Unavailable Oleghe, Efewongbe Primary Care Unavailable Oleghe, Efewongbe Primary Care Unavailable Oleghe, Efewongbe Attending Unavailable Oleghe, Efewongbe Primary Care Unavailable Oleghe OLS, Efewongbe Attending Unavailabl e Oleghe, Efewongbe Primary Care Unavailable Oleghe OLS, Efewongbe Attending Unavailabl e Oleghe, Efewongbe Primary Care Unavailable Oleghe OLS, Efewongbe Attending Unavailabl e Oleghe OLS, Efewongbe Attending Unavailabl e Oleghe, Efewongbe Primary Care Unavailable Oleghe OLS, Efewongbe Attending Unavailabl e Oleghe, Efewongbe Primary Care Unavailable Medications Current Medications Medication Drug Class(es) Dates Sig (Normalized) Sig (Original) aluminum hydroxide 40 mg/ml / magnesium hydroxide 40 mg/ml / simethicone 4 mg/ml oral suspension (11 sources) Start: 07-08-2023 Alum-Mag Hydroxide-Simeth 200-200-20 mg/5 mL suspension Active 15 mL PO Q4H as needed July 08, 2023 12:00am 1 and 3 hours after meals and at bedtime Aspirin (1 source) Platelet Aggregation Inhibitor, Nonsteroidal Anti-inflammatory Drug Start: 10-20-2021 aspirin Active October 20, 2021 12:00am benzocaine 0.2 mg/mg / menthol 0.001 mg/mg / zinc chloride 0.0015 mg/mg oral gel (11 sources) Standardized Chemical Allergen Start: 07-08-2023 Benzocaine-Mentho [...] A DAY 180 February 26, 2022 5:15pm Magnesium Hydroxide (11 sources) Start: 07-08-2023 take 1 mL by [...] release Discontinued 20 meq PO DAILY 90 April 01, 2023 10:42am June 16, 2024 1:13pm potassium chlori de ER (KLOR-CON M20) 20 mEq tablet Take 20 mEq by mouth once daily. Active Comment on above: Take 20 mEq by mouth once daily. QUEtiapine 25 mg oral tablet (20 sources) Atypical Antipsychotic Start: take 1 tablet by mouth once daily in the morning, then take 2 tablets by mouth in the evening Quetiapine (Seroquel) 25 mg tablet Active 75 mg PO DAILY 270 90 November 08, 2023 5:02pm 1 tab a.m. and 2 tabs p.m. Start: 07-22-2023 End: 11-08-2023 Quetiapine (Seroquel) 25 mg tablet Discontinued 12.5 mg PO DAILY 45 90 3 July 22, 2023 12:00am November 08, 2023 5:03pm sertraline 25 mg oral tablet (11 sources) Serotonin Reuptake Inhibitor Start: 05-05-2024 take 1 tablet by mouth once daily Sertraline (Zoloft) 25 mg tablet Active 25 mg PO daily 90 3 May 05, 2024 1:00am Completed/Discontinued Medications Medication Drug Class(es) Dates Sig (Normalized) Sig (Original) amLODIPine 5 mg oral tablet (20 sources) Dihydropyridine Calcium Channel Franki Start: 9 End: 9 take 1 tablet by mouth once daily Amlodipine 5 mg tablet Discontinued 5 mg PO DAILY August 05, 2018 12:00am August 23, 2018 3:20pm apixaban 5 mg oral tablet (20 sources) Factor Xa Inhibitor Start: 9 End: 5 take 1 tablet by mouth twice daily Apixaban (Eliquis) 5 mg tablet Discontinued 5 mg PO TWICE A DAY 180 1 May 26, 2024 2:04pm August 14, 2024 4:16pm Comment on above: Take 5 mg by mouth t wice daily. Per cardiology. docosahexaenoic acid 120 mg / eicosapentaenoic acid 180 mg oral capsule (20 sources) Start: 9 End: 9 Docosahexaenoic Acid-Epa 120-180 mg capsule Discontinued 1 NMA PO DAILY August 05, 2018 12:00am August 23, 2018 2:32pm docosahexaenoic acid 144 mg / eicosapentaenoic acid 216 mg / vitamin e 2 unt oral capsule (20 sources) Start: 9 End: 4 [place]-3 Fatty Acids-Fish Oil (Fish Oil) 360-1,200 mg [...] on above: Take 1 tablet by glenna th once daily. furosemide 40 mg oral tablet [...] hydrochloride 5 mg oral tablet (20 sources) T-[id number]-aspartat e Receptor Antagonist Start: 3 End: 4 [...] A DAY 0 October 22, 2021 12:00am [place]-3 Fatty Acids (Fish Oil Concentrate) 1,000 mg capsule (20 sources) Start: 08-23-2018 End: 11-08-2018 take 1 capsule by mouth once daily [place]-3 Fatty Acids (Fish Oil Concentrate) 1,000 mg capsule Discontinued 1000 mg PO DAILY August 23, 2018 12:00am November 08, 2018 1:59pm Start: 08-23-2018 End: 11-08-2018 take 1 capsule by mouth once daily [place]-3 Fatty Acids (Fish Oil Concentrate) 1,000 mg capsule Discontinued 1000 MG PO DAILY August 22, 2018 11:00pm November 08, 2018 12:59pm Start: 08-23-2018 End: 11-08-2018 take 1 capsule by mouth once daily [place]-3 Fatty Acids (Fish Oil Concentrate) 1,000 mg capsule Discontinued 1000 MG PO DAILY August 23, 2018 12:00am November 08, 2018 1:59pm omeprazole 20 mg delayed release oral capsule (20 sources) Proton Pump Inhibitor Start: 08-05-2018 End: 07-08-2023 take 1 capsule by mouth once daily Omeprazole 20 mg capsule,delayed release(DR/EC) Discontinued 20 mg PO DAILY 3 February 26, 2022 5:14pm July 08, 2023 11:50am GERD Comment on above: Take 1 capsule by mo [facility] once daily. Perflutren Lipid Microspheres (Definity) 1.1 mg/mL suspension (20 sources) Start: 08-05-2018 End: 08-23-2018 Perflutren Lipid [...] 2:30pm inj primidone 50 mg oral tablet (20 sources) Anti-epileptic Agent Start: 08-05-2018 End: 04-10-2019 [...] capsule Discontinued 5 mg PO DAILY 90 March 31, 2023 7:49pm July 08, 2023 [...] fibrillation] Onset: 08-04-2018 08-04-2018 Chronic Cardiac dysrhythmias (20 sources) Bradycardia; Translations: [Bradycardia, unspecified] 12-13-2018 Episodic [...] disturbance] Onset: 09-29-2021 Chronic E Codes: Fall (20 sources) Fall; Translations: [Unspecified fall, initial encounter] [...] [Other fatigue] Onset: 08-07-2024 Episodic Other aftercare (20 sources) Long-term current use of anticoagulant; 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] 10-30-2021 Episodic Other aftercare (2 sources) [facility] (current) use of anticoagulants; Translations: [Long-term (current) use of anticoagulants] Episodic Other circulatory disease (1 source) Other specified peripheral vascular diseases; Translations: [Other specified peripheral vascular diseases] Onset: 06-05-2024 Chronic Other circulatory disease (20 sources) H/O: atrial fibrillation; Translations: [Personal history [...] Chronic Other nutritional; endocrine; and metabolic disorders (20 sources) Adult failure to thrive syndrome; Translations: [...] Test Name Value Interpretation Reference Range Facility Anion gap in Serum or Plasma Ordered By: David Miramontes on 09-07-2024 Anion gap [Moles/Vol] 9 mmol/L 07-13 [facility] BUN/creatinine ratioOrdered By: David Miramontes on 09-07-2024 Urea nitrogen/Creatinine [Mass ratio] 15.9 mg/mg 12-18 [facility] Carbon dioxide, total [Moles /volume] in Central venous bloodOrdered By: David Miramontes on 09-07-2024 CO2 [Moles/Vol] 28.4 mmol/L 21.0-32.0 [facility] Chloride assayOrdered By: Mayra Miramontes on 09-07-2024 Chloride [Moles/Vol] 104 mmol/L 98-108 [facility] Glomerular filtration rate ( GFR) estimation/1.73 sq m using serum, plasma, or whole bOrdered By: David Miramontes on 09-07-2024 GFR/1.73 sq M.predicted among non-blacks MDRD (S/P/Bld) [Vol rate/Area] 72 mL/min/{1.73_m2} >60 [facility] Comment on above: mL/min/1.73m2 CKD-EP I Creatinine Equation (2020) Potassium measurement (mass/ volume)Ordered By: David Miramontes on 09-07-2024 Potassium (Unsp spec) [Mass/Vol] 4.0 mmol/L 3.3-5.1 [facility] Serum creatinine measurement (mass/volume)Ordered By: David Miramontes on 09-07-2024 Creatinine [Mass/Vol] 1.02 mg/dL 0.70-1.20 [facility] Serum glucose measurement (m ass/volume)Ordered By: David Miramontes on 09-07-2024 Glucose [Mass/Vol] 80 mg/dL 70-99 [facility] Serum or plasma calcium siobhan urement (mass/volume)Ordered By: David Miramontes on 09-07-2024 Calcium [Mass/Vol] 9.3 mg/dL 7.6-11.0 [facility] Serum or plasma urea nitroge n measurement (mass/volume)Ordered By: David Miramontes on 09-07-2024 Urea nitrogen [Mass/Vol] 16 mg/dL 4-19 [facility] Sodium levelOrdered By: Frandy Miramontes on 09-07-2024 Sodium [Moles/Vol] 141 mmol/L 133-145 [facility] Anion gap in Serum or Plasma Ordered By: David Miramontes on 08-31-2024 Anion gap [Moles/Vol] 10 mmol/L 5-15 [facility] BUN/creatinine ratioOrdered By: David Miramontes on 08-31-2024 Urea nitrogen/Creatinine [Mass ratio] 12.4 mg/mg 10-20 [facility] Carbon dioxide, total [Moles /volume] in Central venous bloodOrdered By: David Miramontes on 08-31-2024 CO2 [Moles/Vol] 26.4 mmol/L 21.0-32.0 [facility] Chloride assayOrdered By: Mayra Miramontes on 08-31-2024 Chloride [Moles/Vol] 103 mmol/L 98-108 [facility] Glomerular filtration rate ( GFR) estimation/1.73 sq m using serum, plasma, or whole bOrdered By: David Miramontes on 08-31-2024 GFR/1.73 sq M.predicted among non-blacks MDRD (S/P/Bld) [Vol rate/Area] 80 mL/min/{1.73_m2} >60 [facility] Comment on above: mL/min/1.73m2 CKD-EP I Creatinine Equation (2020) Potassium measurement (mass/ volume)Ordered By: David Miramontes on 08-31-2024 Potassium (Unsp spec) [Mass/Vol] 4.2 mmol/L 3.3-5.1 [facility] Serum creatinine measurement (mass/volume)Ordered By: David Miramontes on 08-31-2024 Creatinine [Mass/Vol] 0.93 mg/dL 0.70-1.20 [facility] Serum glucose measurement (m ass/volume)Ordered By: David Miramontes on 08-31-2024 Glucose [Mass/Vol] 86 mg/dL 70-99 [facility] Serum or plasma calcium siobhan urement (mass/volume)Ordered By: David Miramontes on 08-31-2024 Calcium [Mass/Vol] 9.4 mg/dL 7.6-11.0 [facility] Serum or plasma urea nitroge n measurement (mass/volume)Ordered By: David Miramontes on 08-31-2024 Urea nitrogen [Mass/Vol] 12 mg/dL 4-19 [facility] Sodium levelOrdered By: Frandy Miramontes on 08-31-2024 Sodium [Moles/Vol] 139 mmol/L 133-145 [facility] Absolute lymphocyte countOrd ered By: Mayrawaynecarleen Guerratereza on 08-22-2024 Lymphocytes Auto (Unsp spec) [#/Vol] 1.28 10*3/uL 0.83-4.51 [facility] Absolute neutrophil countOrd ered By: Mayrawaynefeliciaingris Pinkamnatereza on 08-22-2024 Neutrophils (Bld) [#/Vol] 5.0 10*3/uL 2.0-7.7 [facility] Anion gap in Serum or Plasma Ordered By: David Pinkamnatereza on 08-22-2024 Anion gap [Moles/Vol] 8 mmol/L 5-15 [facility] Automated lymphocyte count a s percentage of total leukocytesOrdered By: David Pinkamnatereza on 08-22-2024 Lymphocytes/100 WBC Auto (Unsp spec) 17.6 % Low 19-41 [facility] BUN/creatinine ratioOrdered By: David Pinkamnatereza on 08-22-2024 Urea nitrogen/Creatinine [Mass ratio] 13.7 mg/mg 10-20 [facility] Basophil percentageOrdered B y: Frandyfeliciaingris Pinkamnatereza on 08-22-2024 Basophils/100 WBC (Bld) 0.7 % 0-1 [facility] Bilirubin, totalOrdered By: Mayrawaynefeliciaingris Pinkamnatereza on 08-22-2024 Bilirubin [Mass/Vol] 0.31 mg/dL 0.00-1.30 [facility] Carbon dioxide, total [Moles /volume] in Central venous bloodOrdered By: David Pinkamnatereza on 08-22-2024 CO2 [Moles/Vol] 28.1 mmol/L 21.0-32.0 [facility] Chloride assayOrdered By: Mayra Pinkamnatereza on 08-22-2024 Chloride [Moles/Vol] 107 mmol/L 98-108 [facility] Eosinophil percentageOrdered By: Mayrawaynefeliciaingris Pinkamnae on 08-22-2024 Eosinophils/100 WBC (Bld) 2.6 % 0-5 [facility] Erythrocyte distribution wid th ratioOrdered By: David Pinkamnatereza on 08-22-2024 Erythrocyte distribution width (RBC) [Ratio] 15.3 % High 11.6-14.6 [facility] Erythrocyte distribution wid th standard deviationOrdered By: David Miramontes on 08-22-2024 Erythrocyte distribution width (RBC) [Ratio] 57.1 fl High 35.1-43.9 [facility] Glomerular filtration rate ( GFR) estimation/1.73 sq m using serum, plasma, or whole bOrdered By: David Miramontes on 08-22-2024 GFR/1.73 sq M.predicted among non-blacks MDRD (S/P/Bld) [Vol rate/Area] 78 mL/min/{1.73_m2} >60 [facility] Comment on above: mL/min/1.73m2 CKD-EP I Creatinine Equation (2020) Hematocrit Auto (Bld) [Volum e fraction]Ordered By: David Miramontes on 08-22-2024 Hematocrit (Bld) [Volume fraction] 41.1 % 40-54 [facility] Hemoglobin measurementOrdere d By: David Miramontes on 08-22-2024 Hemoglobin (Bld) [Mass/Vol] 12.9 g/dL Low 13.0-16.5 [facility] Immature granulocytes/100 WB C Auto (Bld)Ordered By: David Miramontes on 08-22-2024 Immature granulocytes/100 WBC (Bld) 0.600 % 0.0-0.9 [facility] Comment on above: IG% - Immature Granu locytes (promyelocytes, myelocytes and metamyelocytes) > 1% indicates that a LEFT SHIFT is Present. Laboratory - Chemistry and C hemistry - challengeOrdered By: David Miramontes on 08-22-2024 AST [Catalytic activity/Vol] 34 U/L <38 [facility] MCV (mean corpuscular volume ) determinationOrdered By: David Miramontes on 08-22-2024 MCV (RBC) [Entitic vol] 102.5 fL High 80-94 [facility] Mean corpuscular hemoglobin (MCH) determinationOrdered By: David Miramontes 08-22-2024 MCH (RBC) [Entitic mass] 32.2 pg High 27.0-32.0 [facility] Mean corpuscular hemoglobin concentration (MCHC) determinationOrdered By: David Miramontes on 08-22-2024 MCHC (RBC) [Mass/Vol] 31.4 g/dL Low 32-36 [facility] Mean platelet volume determi nationOrdered By: David Miramontes on 08-22-2024 Platelet mean volume (Bld) [Entitic vol] 11.4 fL 6.2-12.0 [facility] Monocyte percentageOrdered B y: David Miramontes on 08-22-2024 Monocytes/100 WBC (Bld) 10.0 % 0-10 [facility] Neutrophil percentageOrdered By: David Miramontes on 08-22-2024 Neutrophils/100 WBC (Bld) 68.5 % 47-70 [facility] Nucleated red blood cell per centageOrdered By: David Miramontes on 08-22-2024 Nucleated RBC/100 WBC (Bld) [Ratio] 0 % 0-5 [facility] Platelet countOrdered By: Mayra Miramontes on 08-22-2024 Platelets (Bld) [#/Vol] 170 10*3/uL 150-450 [facility] Potassium measurement (mass/ volume)Ordered By: David Miramontes on 08-22-2024 Potassium (Unsp spec) [Mass/Vol] 3.8 mmol/L 3.3-5.1 [facility] RBC Auto (Bld) [#/Vol]Ordere d By: David Miramontes on 08-22-2024 RBC (Bld) [#/Vol] 4.01 10*6/uL Low 4.6-6.2 [facility] Serum creatinine measurement (mass/volume)Ordered By: David Miramontes on 08-22-2024 Creatinine [Mass/Vol] 0.96 mg/dL 0.70-1.20 [facility] Serum globulin measurementOr dered By: David Miramontes on 08-22-2024 Globulin (S) [Mass/Vol] 2.7 g/dL 2.2-4.2 [facility] Serum glucose measurement (m ass/volume)Ordered By: David Miramontes on 08-22-2024 Glucose [Mass/Vol] 82 mg/dL 70-99 [facility] Serum or plasma alanine grant otransferase (ALT) measurementOrdered By: David Miramontes on 08-22-2024 ALT [Catalytic activity/Vol] 13 U/L <47 [facility] Serum or plasma albumin siobhan urement (mass/volume)Ordered By: David Miramontes on 08-22-2024 Albumin [Mass/Vol] 3.5 g/dL 3.4-4.8 [facility] Serum or plasma albumin/glob ulin mass ratioOrdered By: David Miramontes on 08-22-2024 Albumin/Globulin [Mass ratio] 1.3 {ratio} 0.9-2.4 [facility] Serum or plasma alkaline deven sphatase measurementOrdered By: David Miramontes on 08-22-2024 ALP [Catalytic activity/Vol] 106 U/L 40-129 [facility] Serum or plasma calcium siobhan urement (mass/volume)Ordered By: David Miramontes on 08-22-2024 Calcium [Mass/Vol] 8.9 mg/dL 7.6-11.0 [facility] Serum or plasma urea nitroge n measurement (mass/volume)Ordered By: David Miramontes on 08-22-2024 Urea nitrogen [Mass/Vol] 13 mg/dL 4-19 [facility] Sodium levelOrdered By: Frandy Miramontes on 08-22-2024 Sodium [Moles/Vol] 142 mmol/L 133-145 [facility] Total proteinOrdered By: Lg Miramontes on 08-22-2024 Protein [Mass/Vol] 6.2 g/dL 5.9-8.4 [facility] White blood cell (WBC) count Ordered By: David Miramontes on 08-22-2024 WBC (Bld) [#/Vol] 7.3 10*3/uL 4.4-11.0 [facility] Anion gap in Serum or Plasma Ordered By: David Miramontes on 08-02-2024 Anion gap [Moles/Vol] 11 mmol/L 5-15 [facility] BUN/creatinine ratioOrdered By: David Miramontes on 08-02-2024 Urea nitrogen/Creatinine [Mass ratio] 12.3 mg/mg 10-20 [facility] Carbon dioxide, total [Moles /volume] in Central venous bloodOrdered By: David Miramontes on 08-02-2024 CO2 [Moles/Vol] 24.2 mmol/L 21.0-32.0 [facility] Chloride assayOrdered By: Mayra Miramontes on 08-02-2024 Chloride [Moles/Vol] 105 mmol/L 98-108 [facility] Glomerular filtration rate ( GFR) estimation/1.73 sq m using serum, plasma, or whole bOrdered By: David Miramontes on 08-02-2024 GFR/1.73 sq M.predicted among non-blacks MDRD (S/P/Bld) [Vol rate/Area] 73 mL/min/{1.73_m2} >60 [facility] Comment on above: mL/min/1.73m2 CKD-EP I Creatinine Equation (2020) Potassium measurement (mass/ volume)Ordered By: David Miramontes on 08-02-2024 Potassium (Unsp spec) [Mass/Vol] 3.7 mmol/L 3.3-5.1 [facility] Serum creatinine measurement (mass/volume)Ordered By: David Miramontes on 08-02-2024 Creatinine [Mass/Vol] 1.01 mg/dL 0.70-1.20 [facility] Serum glucose measurement (m ass/volume)Ordered By: David Miramontes on 08-02-2024 Glucose [Mass/Vol] 140 mg/dL High 70-99 [facility] Serum or plasma calcium siobhan urement (mass/volume)Ordered By: David Miramontes on 08-02-2024 Calcium [Mass/Vol] 9.1 mg/dL 7.6-11.0 [facility] Serum or plasma urea nitroge n measurement (mass/volume)Ordered By: David Miramontes on 08-02-2024 Urea nitrogen [Mass/Vol] 12 mg/dL 4-19 [facility] Sodium levelOrdered By: Frandy Miramontes on 08-02-2024 Sodium [Moles/Vol] 141 mmol/L 133-145 [facility] Absolute lymphocyte countOrd ered By: David Miramontes on 08-01-2024 Lymphocytes Auto (Unsp spec) [#/Vol] 1.39 10*3/uL 0.83-4.51 [facility] Absolute neutrophil countOrd ered By: David Miramontes on 08-01-2024 Neutrophils (Bld) [#/Vol] 4.8 10*3/uL 2.0-7.7 [facility] Automated lymphocyte count a s percentage of total leukocytesOrdered By: David Miramontes on 08-01-2024 Lymphocytes/100 WBC Auto (Unsp spec) 18.9 % Low 19-41 [facility] Basophil percentageOrdered B y: David Miramontes on 08-01-2024 Basophils/100 WBC (Bld) 0.4 % 0-1 [facility] Eosinophil percentageOrdered By: David Miramontes on 08-01-2024 Eosinophils/100 WBC (Bld) 2.6 % 0-5 [facility] Erythrocyte distribution wid th ratioOrdered By: David Miramontes on 08-01-2024 Erythrocyte distribution width (RBC) [Ratio] 15.5 % High 11.6-14.6 [facility] Erythrocyte distribution wid th standard deviationOrdered By: David Miramontes on 08-01-2024 Erythrocyte distribution width (RBC) [Ratio] 57.9 fl High 35.1-43.9 [facility] Hematocrit Auto (Bld) [Volum e fraction]Ordered By: Mayrawaynecarleen Joesphamnatereza on 08-01-2024 Hematocrit (Bld) [Volume fraction] 40.2 % 40-54 [facility] Hemoglobin measurementOrdere d By: David Miramontes on 08-01-2024 Hemoglobin (Bld) [Mass/Vol] 12.6 g/dL Low 13.0-16.5 [facility] Immature granulocytes/100 WB C Auto (Bld)Ordered By: David Joesphamnatereza on 08-01-2024 Immature granulocytes/100 WBC (Bld) 0.400 % 0.0-0.9 [facility] Comment on above: IG% - Immature Granu locytes (promyelocytes, myelocytes and metamyelocytes) > 1% indicates that a LEFT SHIFT is Present. MCV (mean corpuscular volume ) determinationOrdered By: David Miramontes on 08-01-2024 MCV (RBC) [Entitic vol] 100.8 fL High 80-94 [facility] Mean corpuscular hemoglobin (MCH) determinationOrdered By: waynewinchesteringris Miramontes on 08-01-2024 MCH (RBC) [Entitic mass] 31.6 pg 27.0-32.0 [facility] Mean corpuscular hemoglobin concentration (MCHC) determinationOrdered By: Frandywinchesteringris Miramontes on 08-01-2024 MCHC (RBC) [Mass/Vol] 31.3 g/dL Low 32-36 [facility] Mean platelet volume determi nationOrdered By: David Miramontes on 08-01-2024 Platelet mean volume (Bld) [Entitic vol] 11.8 fL 6.2-12.0 [facility] Monocyte percentageOrdered B y: David Miramontes on 08-01-2024 Monocytes/100 WBC (Bld) 12.5 % High 0-10 [facility] Neutrophil percentageOrdered By: danay Miramontes on 08-01-2024 Neutrophils/100 WBC (Bld) 65.2 % 47-70 [facility] Nucleated red blood cell per centageOrdered By: David Miramontes on 08-01-2024 Nucleated RBC/100 WBC (Bld) [Ratio] 0 % 0-5 [facility] Platelet countOrdered By: Mayra Miramontes on 08-01-2024 Platelets (Bld) [#/Vol] 182 10*3/uL 150-450 [facility] RBC Auto (Bld) [#/Vol]Ordere d By: David Miramontes on 08-01-2024 RBC (Bld) [#/Vol] 3.99 10*6/uL Low 4.6-6.2 [facility] White blood cell (WBC) count Ordered By: David Miramontes on 08-01-2024 WBC (Bld) [#/Vol] 7.4 10*3/uL 4.4-11.0 [facility] Absolute lymphocyte countOrd ered By: Frandycarleen Joesphamnatereza on 07-21-2024 Lymphocytes Auto (Unsp spec) [#/Vol] 1.21 10*3/uL 0.83-4.51 [facility] Absolute neutrophil countOrd ered By: David Pinkamnatereza on 07-21-2024 Neutrophils (Bld) [#/Vol] 5.1 10*3/uL 2.0-7.7 [facility] Anion gap in Serum or Plasma Ordered By: David Miramontes on 07-21-2024 Anion gap [Moles/Vol] 10 mmol/L 5-15 [facility] Automated lymphocyte count a s percentage of total leukocytesOrdered By: David Miramontes on 07-21-2024 Lymphocytes/100 WBC Auto (Unsp spec) 16.7 % Low 19-41 [facility] BUN/creatinine ratioOrdered By: waynewinchesteringris Miramontes on 07-21-2024 Urea nitrogen/Creatinine [Mass ratio] 16.2 mg/mg 10-20 [facility] Basophil percentageOrdered B y: David Miramontes on 07-21-2024 Basophils/100 WBC (Bld) 0.4 % 0-1 [facility] Carbon dioxide, total [Moles /volume] in Central venous bloodOrdered By: David Miramontes on 07-21-2024 CO2 [Moles/Vol] 25.5 mmol/L 21.0-32.0 [facility] Chloride assayOrdered By: danay Miramontes on 07-21-2024 Chloride [Moles/Vol] 106 mmol/L 98-108 [facility] Eosinophil percentageOrdered By: David Miramontes on 07-21-2024 Eosinophils/100 WBC (Bld) 1.4 % 0-5 [facility] Erythrocyte distribution wid th ratioOrdered By: David Miramontes on 07-21-2024 Erythrocyte distribution width (RBC) [Ratio] 15.4 % High 11.6-14.6 [facility] Erythrocyte distribution wid th standard deviationOrdered By: David Miramontes on 07-21-2024 Erythrocyte distribution width (RBC) [Ratio] 57.9 fl High 35.1-43.9 [facility] Glomerular filtration rate ( GFR) estimation/1.73 sq m using serum, plasma, or whole bOrdered By: David Miramontes on 07-21-2024 GFR/1.73 sq M.predicted among non-blacks MDRD (S/P/Bld) [Vol rate/Area] 67 mL/min/{1.73_m2} >60 [facility] Comment on above: mL/min/1.73m2 CKD-EP I Creatinine Equation (2020) Hematocrit Auto (Bld) [Volum e fraction]Ordered By: Frandywinchesteringris Miramontes on 07-21-2024 Hematocrit (Bld) [Volume fraction] 39.0 % Low 40-54 [facility] Hemoglobin measurementOrdere d By: David Miramontes on 07-21-2024 Hemoglobin (Bld) [Mass/Vol] 12.4 g/dL Low 13.0-16.5 [facility] Immature granulocytes/100 WB C Auto (Bld)Ordered By: David Miramontes on 07-21-2024 Immature granulocytes/100 WBC (Bld) 0.400 % 0.0-0.9 [facility] Comment on above: IG% - Immature Granu locytes (promyelocytes, myelocytes and metamyelocytes) > 1% indicates that a LEFT SHIFT is Present. MCV (mean corpuscular volume ) determinationOrdered By: David Miramontes on 07-21-2024 MCV (RBC) [Entitic vol] 101.0 fL High 80-94 [facility] Mean corpuscular hemoglobin (MCH) determinationOrdered By: waynewinchesteringris Miramontes 07-21-2024 MCH (RBC) [Entitic mass] 32.1 pg High 27.0-32.0 [facility] Mean corpuscular hemoglobin concentration (MCHC) determinationOrdered By: waynewinchesteringris Miramontes 07-21-2024 MCHC (RBC) [Mass/Vol] 31.8 g/dL Low 32-36 [facility] Mean platelet volume determi nationOrdered By: Mayrawaynefeliciaingris Pinkamnatereza on 07-21-2024 Platelet mean volume (Bld) [Entitic vol] 11.7 fL 6.2-12.0 [facility] Monocyte percentageOrdered B y: Frandyfeliciaingris Pinkamnatereza on 07-21-2024 Monocytes/100 WBC (Bld) 11.3 % High 0-10 [facility] Neutrophil percentageOrdered By: David Pinkamnatereza on 07-21-2024 Neutrophils/100 WBC (Bld) 69.8 % 47-70 [facility] Nucleated red blood cell per centageOrdered By: Mayradanay Pinkamnatereza on 07-21-2024 Nucleated RBC/100 WBC (Bld) [Ratio] 0 % 0-5 [facility] Platelet countOrdered By: Mayra fawadingris Miramontes on 07-21-2024 Platelets (Bld) [#/Vol] 172 10*3/uL 150-450 [facility] Potassium measurement (mass/ volume)Ordered By: David Miramontes on 07-21-2024 Potassium (Unsp spec) [Mass/Vol] 3.9 mmol/L 3.3-5.1 [facility] RBC Auto (Bld) [#/Vol]Ordere d By: David Miramontes on 07-21-2024 RBC (Bld) [#/Vol] 3.86 10*6/uL Low 4.6-6.2 [facility] Serum creatinine measurement (mass/volume)Ordered By: David Miramontes on 07-21-2024 Creatinine [Mass/Vol] 1.08 mg/dL 0.70-1.20 [facility] Serum glucose measurement (m ass/volume)Ordered By: David Miramontes on 07-21-2024 Glucose [Mass/Vol] 90 mg/dL 70-99 [facility] Serum or plasma calcium siobhan urement (mass/volume)Ordered By: David Miramontes on 07-21-2024 Calcium [Mass/Vol] 9.1 mg/dL 7.6-11.0 [facility] Serum or plasma urea nitroge n measurement (mass/volume)Ordered By: Mayradanay Miramontes on 07-21-2024 Urea nitrogen [Mass/Vol] 18 mg/dL 4-19 [facility] Sodium levelOrdered By: Frandy durant Joesphamnatereza on 07-21-2024 Sodium [Moles/Vol] 141 mmol/L 133-145 [facility] TSH DL <= 0.005 mIU/L QnOrde red By: David Miramontes on 07-21-2024 TSH Qn 2.450 uIU/mL 0.300-4.200 [facility] White blood cell (WBC) count Ordered By: David Joesphiman on 07-21-2024 WBC (Bld) [#/Vol] 7.3 10*3/uL 4.4-11.0 [facility] BLADDER SCANon 07-14-2024 PVR 59 Cc [facility] BLADDER SCANOrdered By: Dayo Perez on 07-14-2024 [facility] CNOVon 07-14-2024 CNOV Office Visit (YOUSIF) KEL DILLARD ([id number]) 1940 M Date Time Provider Department 07/14/24 9:00 AM DIANA ARANGO During your visit today, we recorded the following information about you: Diana Arango APRN.CNP 07/14/2024 9:11 AM Signed [facility] Urology - Patrick STARR [facility] NEW PATIENT UROLOGY VISIT 07/14/2024 8:51 AM [...] kg/m? Physical (more content not included)... Normal [facility] CYTOLOGY NON-GYNon 5 AP DISCLAIMER Normal [facility] Comment on above: Order Comment: Speci men Type: URINE SPECIMEN Ordering Facility: [facility] Address: [address] [place] [address] Result Comment: Hussain blanco Developed Test (LDT) Disclaimer: Performance characteristics of immunohistochemical, immunofluorescent, and chromogenic in-situ hybridization tests have been determined by the performing laboratory within [facility]'s [facility] Pathology and Laboratory Medicine Department ([facility], [facility], [facility], [facility], [facility], [facility], or [facility]) in a manner consistent with CLIA requirements. One or more of these tests may not have been cleared or approved by the FDA. [facility] is regulated under CLIA as qualified to perform high-complexity testing. These tests are used for clinical purposes. These should not be regarded as investigational or for research. Positive and negative controls stain appropriately. Performed By: #### C YTONON #### [facility] CLIA [id number] [address] [place] [address] [place] CASE REPORT Normal [facility] Comment on above: Order Comment: Speci men Type: URINE SPECIMEN Ordering Facility: [facility] Address: [address] [place] [address] Result Comment: [facility] Cytology Report Case: [id number] Authorizing Provider: Diana Arango Collected: 07/14/2024 09:01 AM MATTHEW Andres Ordering Location: [facility] Received: 07/17/2024 03:50 AM Pathologist: Rosy Cavazos MD Specimen: Urine, Midstream Performed By: #### C YTONON #### [facility] CLIA [id number] [address] [place] CLINICAL HISTORY gross hematuria Normal [facility] Comment on above: Order Comment: Speci men Type: URINE SPECIMEN Ordering Facility: [facility] Address: [address] [place] [address] Performed By: #### C YTONON #### [facility] CLIA [id number] [address] [place] [address] FINAL DIAGNOSIS Normal [facility] Comment on above: Order Comment: Speci men Type: URINE SPECIMEN Ordering Facility: [facility] Address: [address] [place] [address] Result Comment: A - Urine, Midstream Negative for high-grade urothelial carcinoma. Blood. at 1046 EDT Performed By: #### C YTONON #### [facility] CLIA [id number] [address] [place] [address] FINAL PERFORMING LAB Normal [facility] Comment on above: Order Comment: Speci men Type: URINE SPECIMEN Ordering Facility: [facility] Address: [address] [place] [address] Result Comment: Tech nical component, offset platemaker screening performed at: [facility], [address] [place] [address] CLIA: [id number] Diagnostic interpretation performed at: [facility], [address] [place] [address] CLIA# [id number] Take Up Operator: Josiah Ochoa MD Performed By: #### C YTONON #### [facility] CLIA [id number] [address] [place] [address] GROSS DESCRIPTION Normal [facility] Comment on above: Order Comment: Speci men Type: URINE SPECIMEN Ordering Facility: [facility] Address: [address] [place] [address] Result Comment: A. U rine, Midstream 7.5 cc cloudy yellow fluid. ThinPrep prepared. Performed By: #### C YTONON #### [facility] CLIA [id number] [address] [place] UA DIP, URINE (POC)on 2024 BILIRUBIN UA (POCT) Negative Negative [facility] CLARITY UA (POCT) Clear [facility] COLOR UA (POCT) Yellow [facility] GLUCOSE UA (POCT) Negative Negative mg/dL [facility] Hemoglobin Ql (U) Trace-intact Abnormal Negative [facility] Interpretation and review of laboratory results Abnormal [facility] KETONE UA (POCT) Negative Negative mg/dL [facility] LEUKOCYTES UA (POCT) Negative [facility] NITRITE U[facility] (POCT) Negative Negative [facility] PH UA (POCT) 5.5 4.5 - 8.0 [facility] Protein Ql (U) 30 mg/dL Abnormal Negative [facility] SPECIFIC GRAVITY UA (POCT) 1.025 1.005 - 1.030 [facility] UROBILINOGEN UA (POCT) 0.2 Debbie l E.U./dL [facility] Location:[facility], [address] [place] [address], [address] [place] [address] POINT OF CARE [facility] Serum or plasma uric acid me asurement (mass/volume)Ordered By: David Miramontes on 06-23-2024 Urate [Mass/Vol] 4.2 mg/dL 3.5-7.2 [facility] Comment on above: The drugs N-Acetylcy steine and Metamizole may falsely depress this assay. Absolute lymphocyte countOrd ered By: David Miramontes on 06-05-2024 Lymphocytes Auto (Unsp spec) [#/Vol] 1.05 10*3/uL 0.83-4.51 [facility] Absolute neutrophil countOrd ered By: David Miramontes on 06-05-2024 Neutrophils (Bld) [#/Vol] 4.8 10*3/uL 2.0-7.7 [facility] Anion gap in Serum or Plasma Ordered By: David Miramontes on 06-05-2024 Anion gap [Moles/Vol] 11 mmol/L 5-15 [facility] Automated lymphocyte count a s percentage of total leukocytesOrdered By: David Miramontes on 06-05-2024 Lymphocytes/100 WBC Auto (Unsp spec) 15.8 % Low 19-41 [facility] BUN/creatinine ratioOrdered By: David Miramontes on 06-05-2024 Urea nitrogen/Creatinine [Mass ratio] 9.3 mg/mg Low 10-20 [facility] Basophil percentageOrdered B y: David Miramontes on 06-05-2024 Basophils/100 WBC (Bld) 1.1 % High 0-1 [facility] Carbon dioxide, total [Moles /volume] in Central venous bloodOrdered By: David Joesphiman on 06-05-2024 CO2 [Moles/Vol] 26.8 mmol/L 21.0-32.0 [facility] Chloride assayOrdered By: Mayra danay Joesphiman on 06-05-2024 Chloride [Moles/Vol] 101 mmol/L 98-108 [facility] Eosinophil percentageOrdered By: David Miramontes on 06-05-2024 Eosinophils/100 WBC (Bld) 2.3 % 0-5 [facility] Erythrocyte distribution wid th (RBC) [Ratio]Ordered By: David Miramontes on 06-05-2024 Erythrocyte distribution width (RBC) [Entitic vol] 55.4 fL High 35.1-43.9 [facility] Erythrocyte distribution wid th ratioOrdered By: David Miramontes on 06-05-2024 Erythrocyte distribution width (RBC) [Ratio] 15.0 % High 11.6-14.6 [facility] Erythrocyte distribution wid th standard deviationOrdered By: David Miramontes on 06-05-2024 Erythrocyte distribution width (RBC) [Ratio] 55.4 fl High 35.1-43.9 [facility] GFR/1.73 sq M.predicted eleazar g non-blacks MDRD (S/P/Bld) [Vol rate/Area]Ordered By: Mayradanay Miramontes on 06-05-2024 Estimated GFR (MDRD) Non-Af Amer 48 Low >60 [facility] Comment on above: mL/min/1.73m2 CKD-EP I Creatinine Equation (2020) Glomerular filtration rate ( GFR) estimation/1.73 sq m using serum, plasma, or whole bOrdered By: David Miramontes on 06-05-2024 GFR/1.73 sq M.predicted among non-blacks MDRD (S/P/Bld) [Vol rate/Area] 48 mL/min/{1.73_m2} Low >60 [facility] Comment on above: mL/min/1.73m2 CKD-EP I Creatinine Equation (2020) Hematocrit Auto (Bld) [Volum e fraction]Ordered By: David Miramontes on 06-05-2024 Hematocrit (Bld) [Volume fraction] 41.8 % 40-54 [facility] Hemoglobin measurementOrdere d By: David Miramontes on 06-05-2024 Hemoglobin (Bld) [Mass/Vol] 13.3 g/dL 13.0-16.5 [facility] Immature granulocytes/100 WB C Auto (Bld)Ordered By: David Miramontes on 06-05-2024 Immature granulocytes/100 WBC (Bld) 0.300 % 0.0-0.9 [facility] Comment on above: IG% - Immature Granu locytes (promyelocytes, myelocytes and metamyelocytes) > 1% indicates that a LEFT SHIFT is Present. Lymphocytes Auto (Unsp spec) [#/Vol]Ordered By: Frandywinchesteringris Miramontes on 06-05-2024 Lymphocytes (Bld) [#/Vol] 1.05 10*3/uL 0.83-4.51 [facility] Lymphocytes/100 WBC Auto (Un sp spec)Ordered By: David Miramontes on 06-05-2024 Lymphocytes/100 WBC (Bld) 15.8 % Low 19-41 [facility] MCV (mean corpuscular volume ) determinationOrdered By: David Miramontes on 06-05-2024 MCV (RBC) [Entitic vol] 100.5 fL High 80-94 [facility] Mean corpuscular hemoglobin (MCH) determinationOrdered By: waynewinchesteringris Miramontes on 06-05-2024 MCH (RBC) [Entitic mass] 32.0 pg 27.0-32.0 [facility] Mean corpuscular hemoglobin concentration (MCHC) determinationOrdered By: David Miramontes on 06-05-2024 MCHC (RBC) [Mass/Vol] 31.8 g/dL Low 32-36 [facility] Mean platelet volume determi nationOrdered By: David Miramontes on 06-05-2024 Platelet mean volume (Bld) [Entitic vol] 11.3 fL 6.2-12.0 [facility] Monocyte percentageOrdered B y: Frandyfeliciaingris Pinkamnatereza on 06-05-2024 Monocytes/100 WBC (Bld) 8.9 % 0-10 [facility] Neutrophil percentageOrdered By: David Miramontes on 06-05-2024 Neutrophils/100 WBC (Bld) 71.6 % High 47-70 [facility] Nucleated red blood cell per centageOrdered By: David Miramontes on 06-05-2024 Nucleated RBC/100 WBC (Bld) [Ratio] 0 % 0-5 [facility] Platelet countOrdered By: Mayra waynecarleen Miramontes on 06-05-2024 Platelets (Bld) [#/Vol] 216 10*3/uL 150-450 [facility] Potassium (Unsp spec) [Mass/ Vol]Ordered By: David Miramontes on 06-05-2024 Potassium [Moles/Vol] 3.9 mmol/L 3.3-5.1 [facility] Potassium measurement (mass/ volume)Ordered By: David Miramontes on 06-05-2024 Potassium (Unsp spec) [Mass/Vol] 3.9 mmol/L 3.3-5.1 [facility] RBC Auto (Bld) [#/Vol]Ordere d By: David Miramontes on 06-05-2024 RBC (Bld) [#/Vol] 4.16 10*6/uL Low 4.6-6.2 [facility] Serum creatinine measurement (mass/volume)Ordered By: David Miramontes on 06-05-2024 Creatinine [Mass/Vol] 1.42 mg/dL High 0.70-1.20 [facility] Serum glucose measurement (m ass/volume)Ordered By: David Miramontes on 06-05-2024 Glucose [Mass/Vol] 85 mg/dL 70-99 [facility] Serum or plasma calcium siobhan urement (mass/volume)Ordered By: David Miramontes on 06-05-2024 Calcium [Mass/Vol] 9.0 mg/dL 7.6-11.0 [facility] Serum or plasma urea nitroge n measurement (mass/volume)Ordered By: Mayradanay Miramontes on 06-05-2024 Urea nitrogen [Mass/Vol] 13 mg/dL 4-19 [facility] Sodium levelOrdered By: Frandy durant Kulwinder on 06-05-2024 Sodium [Moles/Vol] 139 mmol/L 133-145 [facility] White blood cell (WBC) count Ordered By: Mayrawaynefeliciaingris Pinkamnatereza on 06-05-2024 WBC (Bld) [#/Vol] 6.6 10*3/uL 4.4-11.0 [facility] Amorphous sediment detection in urine sediment by light microscopyOrdered By: David Miramontes on 05-30-2024 Amorphous sediment LM Ql (Urine sed) 1+ [facility] Ankle Brachial Indexon 05-30 Ankle Brachial Index [facility] [address] [place] [address] Ankle Brachial Index 05/30/24 0904 MR#: [id number] Acct: [id number] Name: KEL DILLARD Rep #: [id number] : 1940 84 From: Josiah Klein MD Attending Dr: Dr. David Miramontes MD Status: REG CLI Ordering Dr: David Miramontes MD Date: 05/30/24 Location: [facility] Sex: M C Admitted: Reason [...] Date Dictated: 05/30/24 0904 Date Transcribed: 05/30/24 154 Hide Spreader: Signed Normal [facility] Arterial study reportOrdered By: Josiah Kelin on 05-30-2024 Noninvasive arteriosclerosis study report [facility] [address] [place] [address] Ankle Brachial Index 05/30/24 0904 MR#: [id number] Acct: [id number] Name: KEL DILLARD Rep #:[id number] : 1940 84 From: Josiah Naranjo Attending Dr: Dr. David Miramontes MD Status: REG CLI Ordering Dr: David Miramontes MD Date: 05/30/24 Location: [facility] Sex: M C Admitted: Reason [...] MD Performed By: Yasmine May RVT, RDCS 05/30/241542 Date _ Josiah Klein MD CC: Dr. David Miramontes MD ~ Date Dictated: 05/30/24903 Date Transcribed: 05/30/241542 Hide Spreader: Signed [facility] Work Phone: Bilirubin Test strip Ql (U)O rdered By: David Miramontes on 05-30-2024 Bilirubin Ql (U) Negative Negative [facility] Epithelial cells.squamous LM Ql (Urine sed)Ordered By: David Miramontes on 05-30-2024 Epithelial cells.squamous LM.HPF (Urine sed) [#/Area] 0 /[HPF] 0-5 [facility] Glucose Ql (U)Ordered By: Mayra Miramontes on 05-30-2024 Urine Glucose (UA) Normal mg/dl Normal [facility] Ketones Test strip Ql (U)Ord ered By: David Miramontes on 05-30-2024 Ketones Ql (U) Negative Negative [facility] Microscopic analysis of urin e for red blood cells (RBC)Ordered By: David Miramontes on 05-30-2024 Microscopic analysis of urine for red blood cells (RBC) > 100 SEEN /hpf 0-5 [facility] Urine RBC > 100 SEEN /hpf 0-5 [facility] Mucus LM Ql (Urine sed)Order ed By: David Miramontes on 05-30-2024 Mucus Ql (Urine sed) 0 SEEN /hpf [facility] Nitrite Test strip Ql (U)Ord ered By: David Miramontes on 05-30-2024 Nitrite Ql (U) Positive High Negative [facility] PSA, total screeningOrdered By: David Miramontes on 05-30-2024 Prostate Specific Antigen Screen 3.08 ng/mL 0.02-4.00 [facility] Comment on above: This test was perfor [...] Protein Ql (U) 500 mg/dl High Negative [facility] Squamous epithelial cells de tection in urine sediment by light microscopyOrdered By: David Miramontes on 05-30-2024 Epithelial cells.squamous LM Ql (Urine sed) 0-5 SEEN /hpf 0-5 [facility] Urine blood detectionOrdered By: David Miramontes on 05-30-2024 Urine Occult Blood 250 /ul High Negative [facility] Urine clarityOrdered By: Lg Miramontes on 05-30-2024 Clarity (U) Cloudy Clear [facility] Urine color determinationOrd ered By: David Miramontes on 05-30-2024 Color (U) Brown Yellow [facility] Urine cultureOrdered By: Lg Miramontes on 05-30-2024 Bacteria identified Cx Nom (U) Proteus mirabilis Abnormal [facility] Urine glucose detectionOrder ed By: David Miramontes on 05-30-2024 Glucose Ql (U) Normal mg/dl Normal [facility] Urine leukocyte esterase det ection by dipstickOrdered By: David Miramontes on 05-30-2024 Leukocyte esterase Test strip Ql (U) 500 /ul High Negative [facility] Urine pHOrdered By: Leo Miramontes on 05-30-2024 pH (U) 6.5 [pH] 5.0 - 8.0 [facility] Urine sediment bacteria coun t by microscopy (number/high power field)Ordered By: David Miramontes on 05-30-2024 Bacteria LM.HPF (Urine sed) [#/Area] 2 /[HPF] None Seen [facility] Urine specific gravity measu rementOrdered By: David Miramontes on 05-30-2024 Specific gravity (U) [Rel density] 1.015 1.002-1.030 [facility] Urine urobilinogen measureme ntOrdered By: Vickyingris Pinkamnatereza on 05-30-2024 Urobilinogen Ql (U) 1 mg/dl High Normal [facility] Urobilinogen Ql (U)Ordered B y: David Joesphamnatereza on 05-30-2024 Urobilinogen (U) [Mass/Vol] 1 mg/dL High Normal [facility] White blood cell countOrdere d By: Frandyfeliciaingris Pinkamnatereza on 05-30-2024 Urine WBC 50-100 SEEN /hpf 0-5 [facility] White blood cell count 50-100 SEEN /hpf 0-5 [facility] Absolute lymphocyte countOrd ered By: Frandyfeliciaingris Pinkamnatereza on 05-22-2024 Lymphocytes Auto (Unsp spec) [#/Vol] 1.26 10*3/uL 0.83-4.51 [facility] Absolute neutrophil countOrd ered By: David Pinkamnatereza on 05-22-2024 Neutrophils (Bld) [#/Vol] 6.5 10*3/uL 2.0-7.7 [facility] Anion gap in Serum or Plasma Ordered By: David Pinkamnatereza on 05-22-2024 Anion gap [Moles/Vol] 13 mmol/L 5-15 [facility] Automated lymphocyte count a s percentage of total leukocytesOrdered By: David Pinkamnatereza on 05-22-2024 Lymphocytes/100 WBC Auto (Unsp spec) 14.0 % Low 19-41 [facility] BUN/creatinine ratioOrdered By: David Pinkamnatereza on 05-22-2024 Urea nitrogen/Creatinine [Mass ratio] 7.8 mg/mg Low 10-20 [facility] Basophil percentageOrdered B y: Vickyingris Pinkamnatereza on 05-22-2024 Basophils/100 WBC (Bld) 0.4 % 0-1 [facility] Bilirubin, totalOrdered By: David Pinkamnatereza on 05-22-2024 Bilirubin [Mass/Vol] 0.44 mg/dL 0.00-1.30 [facility] Carbon dioxide, total [Moles /volume] in Central venous bloodOrdered By: David Miramontes on 05-22-2024 CO2 [Moles/Vol] 24.8 mmol/L 21.0-32.0 [facility] Chloride assayOrdered By: Mayra Miramontes on 05-22-2024 Chloride [Moles/Vol] 104 mmol/L 98-108 [facility] Eosinophil percentageOrdered By: David Miramontes on 05-22-2024 Eosinophils/100 WBC (Bld) 1.0 % 0-5 [facility] Erythrocyte distribution wid th (RBC) [Ratio]Ordered By: David Miramontes on 05-22-2024 Erythrocyte distribution width (RBC) [Entitic vol] 54.3 fL High 35.1-43.9 [facility] Erythrocyte distribution wid th ratioOrdered By: David Miramontes on 05-22-2024 Erythrocyte distribution width (RBC) [Ratio] 15.1 % High 11.6-14.6 [facility] Erythrocyte distribution wid th standard deviationOrdered By: David Miramontes on 05-22-2024 Erythrocyte distribution width (RBC) [Ratio] 54.3 fl High 35.1-43.9 [facility] GFR/1.73 sq M.predicted eleazar g non-blacks MDRD (S/P/Bld) [Vol rate/Area]Ordered By: David Miramontes on 05-22-2024 Estimated GFR (MDRD) Non-Af Amer 33 Low >60 [facility] Comment on above: mL/min/1.73m2 CKD-EP I Creatinine Equation (2020) Glomerular filtration rate ( GFR) estimation/1.73 sq m using serum, plasma, or whole bOrdered By: David Miramontes on 05-22-2024 GFR/1.73 sq M.predicted among non-blacks MDRD (S/P/Bld) [Vol rate/Area] 33 mL/min/{1.73_m2} Low >60 [facility] Comment on above: mL/min/1.73m2 CKD-EP I Creatinine Equation (2020) Hematocrit Auto (Bld) [Volum e fraction]Ordered By: David Miramontes on 05-22-2024 Hematocrit (Bld) [Volume fraction] 40.5 % 40-54 [facility] Hemoglobin measurementOrdere d By: David Miramontes on 05-22-2024 Hemoglobin (Bld) [Mass/Vol] 12.9 g/dL Low 13.0-16.5 [facility] Immature granulocytes/100 WB C Auto (Bld)Ordered By: David Miramontes on 05-22-2024 Immature granulocytes/100 WBC (Bld) 0.300 % 0.0-0.9 [facility] Comment on above: IG% - Immature Granu locytes (promyelocytes, myelocytes and metamyelocytes) > 1% indicates that a LEFT SHIFT is Present. Laboratory - Chemistry and C hemistry - challengeOrdered By: David Miramontes on 05-22-2024 AST [Catalytic activity/Vol] 33 U/L <38 [facility] Lymphocytes Auto (Unsp spec) [#/Vol]Ordered By: David Miramontes on 05-22-2024 Lymphocytes (Bld) [#/Vol] 1.26 10*3/uL 0.83-4.51 [facility] Lymphocytes/100 WBC Auto (Un sp spec)Ordered By: David Miramontes on 05-22-2024 Lymphocytes/100 WBC (Bld) 14.0 % Low 19-41 [facility] MCV (mean corpuscular volume ) determinationOrdered By: David Miramontes on 05-22-2024 MCV (RBC) [Entitic vol] 99.3 fL High 80-94 [facility] Mean corpuscular hemoglobin (MCH) determinationOrdered By: David Miramontes on 05-22-2024 MCH (RBC) [Entitic mass] 31.6 pg 27.0-32.0 [facility] Mean corpuscular hemoglobin concentration (MCHC) determinationOrdered By: David Miramontes on 05-22-2024 MCHC (RBC) [Mass/Vol] 31.9 g/dL Low 32-36 [facility] Mean platelet volume determi nationOrdered By: David Miramontes on 05-22-2024 Platelet mean volume (Bld) [Entitic vol] 12.1 fL High 6.2-12.0 [facility] Monocyte percentageOrdered B y: Mayrawaynecarleen Joesphiman on 05-22-2024 Monocytes/100 WBC (Bld) 11.8 % High 0-10 [facility] Neutrophil percentageOrdered By: David Pinkamnatereza on 05-22-2024 Neutrophils/100 WBC (Bld) 72.5 % High 47-70 [facility] Nucleated red blood cell per centageOrdered By: David Pinkamnatereza on 05-22-2024 Nucleated RBC/100 WBC (Bld) [Ratio] 0 % 0-5 [facility] Platelet countOrdered By: Mayra waynecarleen Miramontes on 05-22-2024 Platelets (Bld) [#/Vol] 179 10*3/uL 150-450 [facility] Potassium (Unsp spec) [Mass/ Vol]Ordered By: David Miramontes on 05-22-2024 Potassium [Moles/Vol] 3.3 mmol/L 3.3-5.1 [facility] Potassium measurement (mass/ volume)Ordered By: David Miramontes on 05-22-2024 Potassium (Unsp spec) [Mass/Vol] 3.3 mmol/L 3.3-5.1 [facility] RBC Auto (Bld) [#/Vol]Ordere d By: David Miramontes on 05-22-2024 RBC (Bld) [#/Vol] 4.08 10*6/uL Low 4.6-6.2 [facility] Serum creatinine measurement (mass/volume)Ordered By: David Miramontes on 05-22-2024 Creatinine [Mass/Vol] 1.94 mg/dL High 0.70-1.20 [facility] Serum globulin measurementOr dered By: David Miramontes on 05-22-2024 Globulin (S) [Mass/Vol] 3.2 g/dL 2.2-4.2 [facility] Serum glucose measurement (m ass/volume)Ordered By: David Miramontes on 05-22-2024 Glucose [Mass/Vol] 112 mg/dL High 70-99 [facility] Serum or plasma alanine grant otransferase (ALT) measurementOrdered By: David Miramontes on 05-22-2024 ALT [Catalytic activity/Vol] 8 U/L <47 [facility] Serum or plasma albumin siobhan urement (mass/volume)Ordered By: David Miramontes on 05-22-2024 Albumin [Mass/Vol] 3.5 g/dL 3.4-4.8 [facility] Serum or plasma albumin/glob ulin mass ratioOrdered By: David Miramontes on 05-22-2024 Albumin/Globulin [Mass ratio] 1.1 {ratio} 0.9-2.4 [facility] Serum or plasma alkaline deven sphatase measurementOrdered By: David Miramontes on 05-22-2024 ALP [Catalytic activity/Vol] 71 U/L 40-129 [facility] Serum or plasma calcium siobhan urement (mass/volume)Ordered By: David Miramontes on 05-22-2024 Calcium [Mass/Vol] 8.8 mg/dL 7.6-11.0 [facility] Serum or plasma urea nitroge n measurement (mass/volume)Ordered By: David Miramontes on 05-22-2024 Urea nitrogen [Mass/Vol] 15 mg/dL 4-19 [facility] Sodium levelOrdered By: Frandy Miramontes on 05-22-2024 Sodium [Moles/Vol] 141 mmol/L 133-145 [facility] Total proteinOrdered By: Lg Miramontes on 05-22-2024 Protein [Mass/Vol] 6.7 g/dL 5.9-8.4 [facility] White blood cell (WBC) count Ordered By: David Miramontes on 05-22-2024 WBC (Bld) [#/Vol] 9.0 10*3/uL 4.4-11.0 [facility] Bilirubin Test strip Ql (U)O rdered By: David Miramontes on 04-17-2024 Bilirubin Ql (U) 1 mg/dL High Negative [facility] Comment on above: COLOR OF URINE MAY A FFECT DIPSTICK RESULTS. Glucose Ql (U)Ordered By: Mayra Miramontes on 04-17-2024 Urine Glucose (UA) Normal mg/dl Normal [facility] Ketones Test strip Ql (U)Ord ered By: David Miramontes on 04-17-2024 Ketones Ql (U) 5 mg/dl High Negative [facility] Nitrite Test strip Ql (U)Ord ered By: David Miramontes on 04-17-2024 Nitrite Ql (U) Negative Negative [facility] Protein Test strip Ql (U)Ord ered By: David Miramontes on 04-17-2024 Protein Ql (U) 100 mg/dl High Negative [facility] Urine blood detectionOrdered By: David Miramontes on 04-17-2024 Urine Occult Blood 250 /ul High Negative [facility] Urine clarityOrdered By: Lg Miramontes on 04-17-2024 Clarity (U) Turbid Clear [facility] Urine color determinationOrd ered By: David Miramontes on 04-17-2024 Color (U) Kristina Yellow [facility] Urine cultureOrdered By: Lg Miramontes on 04-17-2024 Bacteria identified Cx Nom (U) Proteus mirabilis Abnormal [facility] Urine glucose detectionOrder ed By: David Miramontes on 04-17-2024 Glucose Ql (U) Normal mg/dl Normal [facility] Urine leukocyte esterase det ection by dipstickOrdered By: David Miramontes on 04-17-2024 Leukocyte esterase Test strip Ql (U) 100 /ul High Negative [facility] Urine pHOrdered By: Leo Miramontes on 04-17-2024 pH (U) 5.0 [pH] 5.0 - 8.0 [facility] Urine specific gravity measu rementOrdered By: David Miramontes on 04-17-2024 Specific gravity (U) [Rel density] 1.025 1.002-1.030 [facility] Urine urobilinogen measureme ntOrdered By: David Miramontes on 04-17-2024 Urobilinogen Ql (U) Normal mg/dl Normal [facility] Urobilinogen Ql (U)Ordered B y: David Miramontes on 04-17-2024 Urine Urobilinogen Normal mg/dl Normal [facility] Absolute lymphocyte countOrd ered By: David Miramontes on 04-13-2024 Lymphocytes Auto (Unsp spec) [#/Vol] 0.98 10*3/uL 0.83-4.51 [facility] Absolute neutrophil countOrd ered By: David Miramontes on 04-13-2024 Neutrophils (Bld) [#/Vol] 7.0 10*3/uL 2.0-7.7 [facility] Automated lymphocyte count a s percentage of total leukocytesOrdered By: David Miramontes on 04-13-2024 Lymphocytes/100 WBC Auto (Unsp spec) 11.0 % Low 19-41 [facility] Basophil percentageOrdered B y: David Miramontes on 04-13-2024 Basophils/100 WBC (Bld) 0.2 % 0-1 [facility] Eosinophil percentageOrdered By: David Miramontes on 04-13-2024 Eosinophils/100 WBC (Bld) 1.2 % 0-5 [facility] Erythrocyte distribution wid th (RBC) [Ratio]Ordered By: David Miramontes on 04-13-2024 Erythrocyte distribution width (RBC) [Entitic vol] 52.6 fL High 35.1-43.9 [facility] Erythrocyte distribution wid th ratioOrdered By: David Miramontes on 04-13-2024 Erythrocyte distribution width (RBC) [Ratio] 14.6 % 11.6-14.6 [facility] Erythrocyte distribution wid th standard deviationOrdered By: David Miramontes on 04-13-2024 Erythrocyte distribution width (RBC) [Ratio] 52.6 fl High 35.1-43.9 [facility] Hematocrit Auto (Bld) [Volum e fraction]Ordered By: David Guerratereza on 04-13-2024 Hematocrit (Bld) [Volume fraction] 47.5 % 40-54 [facility] Hemoglobin measurementOrdere d By: David Miramontes on 04-13-2024 Hemoglobin (Bld) [Mass/Vol] 15.1 g/dL 13.0-16.5 [facility] Immature granulocytes/100 WB C Auto (Bld)Ordered By: David Miramontes on 04-13-2024 Immature granulocytes/100 WBC (Bld) 0.300 % 0.0-0.9 [facility] Comment on above: IG% - Immature Granu locytes (promyelocytes, myelocytes and metamyelocytes) > 1% indicates that a LEFT SHIFT is Present. Lymphocytes Auto (Unsp spec) [#/Vol]Ordered By: David Miramontes on 04-13-2024 Lymphocytes (Bld) [#/Vol] 0.98 10*3/uL 0.83-4.51 [facility] Lymphocytes/100 WBC Auto (Un sp spec)Ordered By: David Miramontes on 04-13-2024 Lymphocytes/100 WBC (Bld) 11.0 % Low 19-41 [facility] MCV (mean corpuscular volume ) determinationOrdered By: David Miramontes on 04-13-2024 MCV (RBC) [Entitic vol] 98.3 fL High 80-94 [facility] Mean corpuscular hemoglobin (MCH) determinationOrdered By: danay Miramontes on 04-13-2024 MCH (RBC) [Entitic mass] 31.3 pg 27.0-32.0 [facility] Mean corpuscular hemoglobin concentration (MCHC) determinationOrdered By: [facility] on 04-13-2024 MCHC (RBC) [Mass/Vol] 31.8 g/dL Low 32-36 [facility] Mean platelet volume determi nationOrdered By: danay Miramontes on 04-13-2024 Platelet mean volume (Bld) [Entitic vol] 12.2 fL High 6.2-12.0 [facility] Monocyte percentageOrdered B y: David Miramontes on 04-13-2024 Monocytes/100 WBC (Bld) 9.3 % 0-10 [facility] Neutrophil percentageOrdered By: David Miramontes on 04-13-2024 Neutrophils/100 WBC (Bld) 78.0 % High 47-70 [facility] Nucleated red blood cell per centageOrdered By: David Miramontes on 04-13-2024 Nucleated RBC/100 WBC (Bld) [Ratio] 0 % 0-5 [facility] Platelet countOrdered By: Mayra Miramontes on 04-13-2024 Platelets (Bld) [#/Vol] 160 10*3/uL 150-450 [facility] RBC Auto (Bld) [#/Vol]Ordere d By: David Miramontes on 04-13-2024 RBC (Bld) [#/Vol] 4.83 10*6/uL 4.6-6.2 [facility] Serum or plasma uric acid me asurement (mass/volume)Ordered By: David Miramontes on 04-13-2024 Urate [Mass/Vol] 7.3 mg/dL High 3.5-7.2 [facility] Comment on above: The drugs N-Acetylcy steine and Metamizole may falsely depress this assay. White blood cell (WBC) count Ordered By: David Miramontes on 04-13-2024 WBC (Bld) [#/Vol] 8.9 10*3/uL 4.4-11.0 [facility] Bilirubin Test strip Ql (U)O rdered By: David Miramontes on 04-07-2024 Bilirubin Ql (U) Negative Negative [facility] Blood urea nitrogen (BUN)/cr eatinine ratioOrdered By: David Miramontes on 04-07-2024 Urea nitrogen/Creatinine [Mass ratio] 15.7 mg/mg 10-20 [facility] Carbon dioxide measurementOr dered By: David Miramontes on 04-07-2024 CO2 [Moles/Vol] 27.0 mmol/L 21.0-32.0 [facility] Chloride measurementOrdered By: David Miramontes on 04-07-2024 Chloride [Moles/Vol] 107 mmol/L 98-107 [facility] Estimated glomerular filtrat ion rate (GFR) AmericanOrdered By: David Miramontes on 04-07-2024 Estimated GFR (MDRD) Amer 69 mL/min >60 [facility] Comment on above: GFR Calc Glomerular filtration rate ( GFR) estimationOrdered By: David Miramontes on 04-07-2024 Estimated GFR (MDRD) Non-Af Amer 57 mL/min Low >60 [facility] Comment on above: Non- GFR Calc GFR/1.73 sq M.predicted among non-blacks MDRD (S/P/Bld) [Vol rate/Area] 57 mL/min/{1.73_m2} Low >60 [facility] Comment on above: Non- GFR Calc Glucose Ql (U)Ordered By: Mayra Miramontes on 04-07-2024 Urine Glucose (UA) Normal mg/dl Normal [facility] Glucose measurementOrdered B y: David Miramontes on 04-07-2024 Glucose [Mass/Vol] 80 mg/dL 74-106 [facility] Ketones Test strip Ql (U)Ord ered By: David Miramontes on 04-07-2024 Ketones Ql (U) Negative Negative [facility] Nitrite Test strip Ql (U)Ord ered By: David Miramontes on 04-07-2024 Nitrite Ql (U) Negative Negative [facility] Potassium measurementOrdered By: David Miramontes on 04-07-2024 Potassium [Moles/Vol] 3.8 mmol/L 3.5-5.1 [facility] Comment on above: Slight Hemolysis, Re sult may be falsely increased. Protein Test strip Ql (U)Ord ered By: David Miramontes on 04-07-2024 Protein Ql (U) 30 mg/dl High Negative [facility] Serum anion gap measurementO rdered By: David Miramontes on 04-07-2024 Anion gap [Moles/Vol] 9 mmol/L 5-15 [facility] Serum or plasma calcium siobhan urement (mass/volume)Ordered By: David Miramontes on 04-07-2024 Calcium [Mass/Vol] 8.9 mg/dL 8.5-10.1 [facility] Serum or plasma creatinine m easurement (mass/volume)Ordered By: David Miramontes on 04-07-2024 Creatinine [Mass/Vol] 1.27 mg/dL 0.70-1.30 [facility] Comment on above: The validity of the calculated GFR & GFRAA in patients over 70 years has not been determined. Clinical correlation is essential. Serum or plasma urea nitroge n measurement (mass/volume)Ordered By: David Miramontes on 04-07-2024 Urea nitrogen [Mass/Vol] 20 mg/dL High 7-18 [facility] Serum or plasma uric acid me asurement (mass/volume)Ordered By: David Miramontes on 04-07-2024 Urate [Mass/Vol] 7.7 mg/dL High 3.5-7.2 [facility] Comment on above: The drugs N-Acetylcy steine and Metamizole may falsely depress this assay. Sodium levelOrdered By: Frandy Miramontes on 04-07-2024 Sodium [Moles/Vol] 143 mmol/L 136-145 [facility] Urine blood detectionOrdered By: David Miramontes on 04-07-2024 Urine Occult Blood 250 /ul High Negative [facility] Urine clarityOrdered By: Lg Miramontes on 04-07-2024 Clarity (U) Clear Clear [facility] Urine color determinationOrd ered By: David Miramontes on 04-07-2024 Color (U) Straw Yellow [facility] Urine cultureOrdered By: Lg Miramontes on 04-07-2024 Bacteria identified Cx Nom (U) Negative Abnormal [facility] Urine glucose detectionOrder ed By: David Miramontes on 04-07-2024 Glucose Ql (U) Normal mg/dl Normal [facility] Urine leukocyte esterase det ection by dipstickOrdered By: David Miramontes on 04-07-2024 Leukocyte esterase Test strip Ql (U) 25 /ul High Negative [facility] Urine pHOrdered By: Leo Miramontes on 04-07-2024 pH (U) 6.5 [pH] 5.0 - 8.0 [facility] Urine specific gravity measu rementOrdered By: David Miramontes on 04-07-2024 Specific gravity (U) [Rel density] 1.005 1.002-1.030 [facility] Urine urobilinogen measureme ntOrdered By: Mayrawaynefeliciaingris Pinkamnatereza on 04-07-2024 Urobilinogen Ql (U) Normal mg/dl Normal [facility] Urobilinogen Ql (U)Ordered B y: David Miramontes on 04-07-2024 Urine Urobilinogen Normal mg/dl Normal [facility] Absolute lymphocyte countOrd ered By: David Joesphamnatereza on 04-04-2024 Lymphocytes Auto (Unsp spec) [#/Vol] 0.82 10*3/uL Low 0.83-4.51 [facility] Absolute neutrophil countOrd ered By: David Pinkamnatereza on 04-04-2024 Neutrophils (Bld) [#/Vol] 11.6 10*3/uL High 2.0-7.7 [facility] Automated lymphocyte count a s percentage of total leukocytesOrdered By: David Pinkamnatereza on 04-04-2024 Lymphocytes/100 WBC Auto (Unsp spec) 5.9 % Low 19-41 [facility] Basophil percentageOrdered B y: David Joesphiman on 04-04-2024 Basophils/100 WBC (Bld) 0.2 % 0-1 [facility] Blood urea nitrogen (BUN)/cr eatinine ratioOrdered By: David Pinkamnatereza on 04-04-2024 Urea nitrogen/Creatinine [Mass ratio] 9.6 mg/mg Low 10-20 [facility] Carbon dioxide measurementOr dered By: David Pinkamnatereza on 04-04-2024 CO2 [Moles/Vol] 26.0 mmol/L 21.0-32.0 [facility] Chloride measurementOrdered By: David Miramontes on 04-04-2024 Chloride [Moles/Vol] 105 mmol/L 98-107 [facility] Eosinophil percentageOrdered By: David Pinkamnatereza on 04-04-2024 Eosinophils/100 WBC (Bld) 0.0 % 0-5 [facility] Erythrocyte distribution wid th (RBC) [Ratio]Ordered By: David Miramontes on 04-04-2024 Erythrocyte distribution width (RBC) [Entitic vol] 55.2 fL High 35.1-43.9 [facility] Erythrocyte distribution wid th ratioOrdered By: David Miramontes on 04-04-2024 Erythrocyte distribution width (RBC) [Ratio] 15.2 % High 11.6-14.6 [facility] Erythrocyte distribution wid th standard deviationOrdered By: David Miramontes on 04-04-2024 Erythrocyte distribution width (RBC) [Ratio] 55.2 fl High 35.1-43.9 [facility] Estimated glomerular filtrat ion rate (GFR) AmericanOrdered By: David Miramontes on 04-04-2024 Estimated GFR (MDRD) Amer 47 mL/min Low >60 [facility] Comment on above: GFR Calc Glomerular filtration rate ( GFR) estimationOrdered By: David Miramontes on 04-04-2024 Estimated GFR (MDRD) Non-Af Amer 39 mL/min Low >60 [facility] Comment on above: Non- GFR Calc GFR/1.73 sq M.predicted among non-blacks MDRD (S/P/Bld) [Vol rate/Area] 39 mL/min/{1.73_m2} Low >60 [facility] Comment on above: Non- GFR Calc Glucose measurementOrdered B y: David Miramontes on 04-04-2024 Glucose [Mass/Vol] 119 mg/dL High 74-106 [facility] Comment on above: Fasting Glucose resu lt from 100 to 125 mg/dL suggests IMPAIRED HOMEOSTASIS per A.D.A. criteria. Hematocrit Auto (Bld) [Volum e fraction]Ordered By: David Miramontes on 04-04-2024 Hematocrit (Bld) [Volume fraction] 49.2 % 40-54 [facility] Hemoglobin measurementOrdere d By: David Miramontes on 04-04-2024 Hemoglobin (Bld) [Mass/Vol] 15.9 g/dL 13.0-16.5 [facility] Immature granulocytes/100 WB C Auto (Bld)Ordered By: David Miramontes on 04-04-2024 Immature granulocytes/100 WBC (Bld) 0.500 % 0.0-0.9 [facility] Comment on above: IG% - Immature Granu locytes (promyelocytes, myelocytes and metamyelocytes) > 1% indicates that a LEFT SHIFT is Present. Lymphocytes Auto (Unsp spec) [#/Vol]Ordered By: David Miramontes on 04-04-2024 Lymphocytes (Bld) [#/Vol] 0.82 10*3/uL Low 0.83-4.51 [facility] Lymphocytes/100 WBC Auto (Un sp spec)Ordered By: David Miramontes on 04-04-2024 Lymphocytes/100 WBC (Bld) 5.9 % Low 19-41 [facility] MCV (mean corpuscular volume ) determinationOrdered By: David Miramontes on 04-04-2024 MCV (RBC) [Entitic vol] 98.4 fL High 80-94 [facility] Mean corpuscular hemoglobin (MCH) determinationOrdered By: waynewinchesteringris Miramontes on 04-04-2024 MCH (RBC) [Entitic mass] 31.8 pg 27.0-32.0 [facility] Mean corpuscular hemoglobin concentration (MCHC) determinationOrdered By: waynewinchesteringris Miramontes on 04-04-2024 MCHC (RBC) [Mass/Vol] 32.3 g/dL 32-36 [facility] Mean platelet volume determi nationOrdered By: waynewinchesteringris Miramontes on 04-04-2024 Platelet mean volume (Bld) [Entitic vol] 12.5 fL High 6.2-12.0 [facility] Monocyte percentageOrdered B y: waynewinchesteringris Miramontes on 04-04-2024 Monocytes/100 WBC (Bld) 9.9 % 0-10 [facility] Neutrophil percentageOrdered By: [facility] [facility] Pinktereza on 04-04-2024 Neutrophils/100 WBC (Bld) 83.5 % High 47-70 [facility] Nucleated red blood cell per centageOrdered By: waynewinchesteringris Miramontes on 04-04-2024 Nucleated RBC/100 WBC (Bld) [Ratio] 0 % 0-5 [facility] Platelet countOrdered By: Mayra Miramontes on 04-04-2024 Platelets (Bld) [#/Vol] 209 10*3/uL 150-450 [facility] Potassium measurementOrdered By: David Miramontes on 04-04-2024 Potassium [Moles/Vol] 4.2 mmol/L 3.5-5.1 [facility] Comment on above: Slight Hemolysis, Re sult may be falsely increased. RBC Auto (Bld) [#/Vol]Ordere d By: David Miramontes on 04-04-2024 RBC (Bld) [#/Vol] 5.00 10*6/uL 4.6-6.2 [facility] Serum anion gap measurementO rdered By: David Miramontes on 04-04-2024 Anion gap [Moles/Vol] 8 mmol/L 5-15 [facility] Serum or plasma calcium siobhan urement (mass/volume)Ordered By: David Miramontes on 04-04-2024 Calcium [Mass/Vol] 9.6 mg/dL 8.5-10.1 [facility] Serum or plasma creatinine m easurement (mass/volume)Ordered By: David Miramontes on 04-04-2024 Creatinine [Mass/Vol] 1.77 mg/dL High 0.70-1.30 [facility] Comment on above: The validity of the calculated GFR & GFRAA in patients over 70 years has not been determined. Clinical correlation is essential. Serum or plasma urea nitroge n measurement (mass/volume)Ordered By: David Miramontes on 04-04-2024 Urea nitrogen [Mass/Vol] 17 mg/dL 7-18 [facility] Sodium levelOrdered By: Frandy Miramontes on 04-04-2024 Sodium [Moles/Vol] 139 mmol/L 136-145 [facility] White blood cell (WBC) count Ordered By: David Miramontes on 04-04-2024 WBC (Bld) [#/Vol] 13.9 10*3/uL High 4.4-11.0 [facility] Absolute lymphocyte countOrd ered By: David Miramontes on 04-06-2023 Lymphocytes Auto (Unsp spec) [#/Vol] 1.24 10*3/uL 0.83-4.51 [facility] Automated lymphocyte count a s percentage of total leukocytesOrdered By: David Miramontes on 04-06-2023 Lymphocytes/100 WBC Auto (Unsp spec) 18.7 % 19-41 [facility] Basophil percentageOrdered B y: David Miramontes on 04-06-2023 Basophils/100 WBC (Bld) 0.5 % 0-1 [facility] Chloride [Moles/Vol] 109 mmol/L 98-107 [facility] Eosinophils/100 WBC (Bld) 1.7 % 0-5 [facility] Glucose [Mass/Vol] 90 mg/dL 74-106 [facility] Hemoglobin (Bld) [Mass/Vol] 15.4 g/dL 13.0-16.5 [facility] Monocytes/100 WBC (Bld) 9.4 % 0-10 [facility] Neutrophils (Bld) [#/Vol] 4.6 10*3/uL 2.0-7.7 [facility] Neutrophils/100 WBC (Bld) 69.2 % 47-70 [facility] Potassium [Moles/Vol] 3.7 mmol/L 3.5-5.1 [facility] Sodium [Moles/Vol] 141 mmol/L 136-145 [facility] WBC (Bld) [#/Vol] 6.6 10*3/uL 4.4-11.0 [facility] Determination of erythrocyte mean corpuscular volume (MCV)Ordered By: David Miramontes on 04-06-2023 MCV (RBC) [Entitic vol] 98.2 fL 80-94 [facility] Erythrocyte distribution wid th ratioOrdered By: [facility] on 04-06-2023 Erythrocyte distribution width (RBC) [Ratio] 14.4 % 11.6-14.6 [facility] Erythrocyte distribution wid th standard deviationOrdered By: [facility] Kulwinder on 04-06-2023 Erythrocyte distribution width (RBC) [Entitic vol] 51.7 fL 35.1-43.9 [facility] Hematocrit Auto (Bld) [Volum e fraction]Ordered By: David Miramontes on 04-06-2023 Hematocrit (Bld) [Volume fraction] 49.2 % 40-54 [facility] Immature granulocytes/100 WB C Auto (Bld)Ordered By: David Miramontes on 04-06-2023 Immature granulocytes/100 WBC (Bld) 0.500 % 0.0-0.9 [facility] Comment on above: IG% - Immature Granu locytes (promyelocytes, myelocytes and metamyelocytes) > 1% indicates that a LEFT SHIFT is Present. Laboratory - Chemistry and C hemistry - challengeOrdered By: David Miramontes on 04-06-2023 CO2 [Moles/Vol] 27.0 mmol/L 21.0-32.0 [facility] Urea nitrogen/Creatinine [Mass ratio] 15.0 mg/mg 10-20 [facility] Laboratory - Hematology and Cell countsOrdered By: David Miramontes on 04-06-2023 MCH (RBC) [Entitic mass] 30.7 pg 27.0-32.0 [facility] MCHC (RBC) [Mass/Vol] 31.3 g/dL 32-36 [facility] Nucleated RBC/100 WBC (Bld) [Ratio] 0 % 0-5 [facility] Platelet mean volume (Bld) [Entitic vol] 11.5 fL 6.2-12.0 [facility] Platelets (Bld) [#/Vol] 189 10*3/uL 150-450 [facility] No Panel InformationOrdered By: David Miramontes on 04-06-2023 Estimated GFR (MDRD) Amer 85 mL/min >60 [facility] Comment on above: GFR Calc Estimated GFR (MDRD) Non-Af Amer 70 mL/min >60 [facility] Comment on above: Non- GFR Calc RBC Auto (Bld) [#/Vol]Ordere d By: David Miramontes on 04-06-2023 RBC (Bld) [#/Vol] 5.01 10*6/uL 4.6-6.2 [facility] Serum or plasma calcium siobhan urement (mass/volume)Ordered By: David Miramontes on 04-06-2023 Calcium [Mass/Vol] 9.1 mg/dL 8.5-10.1 [facility] Serum or plasma creatinine m easurement (mass/volume)Ordered By: David Miramontes on 04-06-2023 Creatinine [Mass/Vol] 1.07 mg/dL 0.70-1.30 [facility] Comment on above: The validity of the calculated GFR & GFRAA in patients over 70 years has not been determined. Clinical correlation is essential. Serum or plasma urea nitroge n measurement (mass/volume)Ordered By: David Miramontes on 04-06-2023 Urea nitrogen [Mass/Vol] 16 mg/dL 7-18 [facility] Thin prep Papanicolaou smear with manual screeningOrdered By: waynewinchesteringris Miramontes on 04-06-2023 Thin prep Papanicolaou smear with manual screening 5 5-15 [facility] Absolute lymphocyte countOrd ered By: David Miramontes on 12-30-2022 Lymphocytes Auto (Unsp spec) [#/Vol] 1.16 10*3/uL 0.83-4.51 [facility] Basophil percentageOrdered B y: David Miramontes on 12-30-2022 Basophils/100 WBC (Bld) 0.4 % 0-1 [facility] Chloride [Moles/Vol] 109 mmol/L 98-107 [facility] Eosinophils/100 WBC (Bld) 1.3 % 0-5 [facility] Glucose [Mass/Vol] 84 mg/dL 74-106 [facility] Neutrophils (Bld) [#/Vol] 5.4 10*3/uL 2.0-7.7 [facility] Neutrophils/100 WBC (Bld) 72.7 % 47-70 [facility] Potassium [Moles/Vol] 3.6 mmol/L 3.5-5.1 [facility] Sodium [Moles/Vol] 142 mmol/L 136-145 [facility] WBC (Bld) [#/Vol] 7.4 10*3/uL 4.4-11.0 [facility] Blood erythrocytes count (nu mber/volume)Ordered By: David Miramontes on 12-30-2022 RBC (Bld) [#/Vol] 4.15 10*6/uL 4.6-6.2 [facility] Blood hemoglobin measurement (mass/volume)Ordered By: David Miramontes on 12-30-2022 Hemoglobin (Bld) [Mass/Vol] 13.0 g/dL 13.0-16.5 [facility] Blood lymphocytes/100 leukoc ytesOrdered By: David Miramontes on 12-30-2022 Lymphocytes/100 WBC (Bld) 15.6 % 19-41 [facility] Blood monocytes/100 leukocyt esOrdered By: David Miramontes on 12-30-2022 Monocytes/100 WBC (Bld) 9.6 % 0-10 [facility] Blood platelet mean volumeOr dered By: David Miramontes on 12-30-2022 Platelet mean volume (Bld) [Entitic vol] 11.6 fL 6.2-12.0 [facility] Determination of erythrocyte mean corpuscular volume (MCV)Ordered By: David Miramontes on 12-30-2022 MCV (RBC) [Entitic vol] 99.5 fL 80-94 [facility] Hematocrit Auto (Bld) [Volum e fraction]Ordered By: David Miramontes on 12-30-2022 Hematocrit (Bld) [Volume fraction] 41.3 % 40-54 [facility] Laboratory - Chemistry and C hemistry - challengeOrdered By: David Miramontes on 12-30-2022 CO2 [Moles/Vol] 27.0 mmol/L 21.0-32.0 [facility] Urea nitrogen/Creatinine [Mass ratio] 11.6 mg/mg 10-20 [facility] Laboratory - Hematology and Cell countsOrdered By: David Miramontes on 12-30-2022 Erythrocyte distribution width (RBC) [Entitic vol] 51.5 fL 35.1-43.9 [facility] Erythrocyte distribution width (RBC) [Ratio] 14.2 % 11.6-14.6 [facility] Immature granulocytes/100 WBC (Bld) 0.400 % 0.0-0.9 [facility] Comment on above: IG% - Immature Granu locytes (promyelocytes, myelocytes and metamyelocytes) > 1% indicates that a LEFT SHIFT is Present. MCH (RBC) [Entitic mass] 31.3 pg 27.0-32.0 [facility] Nucleated RBC/100 WBC (Bld) [Ratio] 0 % 0-5 [facility] MCHC Auto (RBC) [Mass/Vol]Or dered By: David Miramontes on 12-30-2022 MCHC (RBC) [Mass/Vol] 31.5 g/dL 32-36 [facility] No Panel InformationOrdered By: David Miramontes on 12-30-2022 Estimated GFR (MDRD) Amer 108 mL/min >60 [facility] Comment on above: GFR Calc Estimated GFR (MDRD) Non-Af Amer 90 mL/min >60 [facility] Comment on above: Non- GFR Calc Platelets bldOrdered By: Lg Miramontes on 12-30-2022 Platelets (Bld) [#/Vol] 165 10*3/uL 150-450 [facility] Serum or plasma calcium siobhan urement (mass/volume)Ordered By: David Miramontes on 12-30-2022 Calcium [Mass/Vol] 8.3 mg/dL 8.5-10.1 [facility] Serum or plasma creatinine m easurement (mass/volume)Ordered By: David Miramontes on 12-30-2022 Creatinine [Mass/Vol] 0.86 mg/dL 0.70-1.30 [facility] Comment on above: The validity of the calculated GFR & GFRAA in patients over 70 years has not been determined. Clinical correlation is essential. Serum or plasma urea nitroge n measurement (mass/volume)Ordered By: David Miramontes on 12-30-2022 Urea nitrogen [Mass/Vol] 10 mg/dL 7-18 [facility] Thin prep Papanicolaou smear with manual screeningOrdered By: David Miramontes on 12-30-2022 Thin prep Papanicolaou smear with manual screening 6 5-15 [facility] Absolute lymphocyte countOrd ered By: David Miramontes on 09-29-2022 Lymphocytes Auto (Unsp spec) [#/Vol] 1.19 10*3/uL 0.83-4.51 [facility] Basophil percentageOrdered B y: David Miramontes on 09-29-2022 Basophils/100 WBC (Bld) 0.2 % 0-1 [facility] Chloride [Moles/Vol] 109 mmol/L 98-107 [facility] Eosinophils/100 WBC (Bld) 0.1 % 0-5 [facility] Glucose [Mass/Vol] 100 mg/dL 74-106 [facility] Comment on above: Fasting Glucose resu lt from 100 to 125 mg/dL suggests IMPAIRED HOMEOSTASIS per A.D.A. criteria. Neutrophils (Bld) [#/Vol] 8.4 10*3/uL 2.0-7.7 [facility] Neutrophils/100 WBC (Bld) 80.3 % 47-70 [facility] Potassium [Moles/Vol] 4.0 mmol/L 3.5-5.1 [facility] Sodium [Moles/Vol] 141 mmol/L 136-145 [facility] WBC (Bld) [#/Vol] 10.4 10*3/uL 4.4-11.0 [facility] Blood erythrocytes count (nu mber/volume)Ordered By: David Miramontes on 09-29-2022 RBC (Bld) [#/Vol] 4.62 10*6/uL 4.6-6.2 [facility] Blood hemoglobin measurement (mass/volume)Ordered By: David Miramontes on 09-29-2022 Hemoglobin (Bld) [Mass/Vol] 14.6 g/dL 13.0-16.5 [facility] Blood lymphocytes/100 leukoc ytesOrdered By: David Miramontes on 09-29-2022 Lymphocytes/100 WBC (Bld) 11.5 % 19-41 [facility] Blood monocytes/100 leukocyt esOrdered By: David Miramontes on 09-29-2022 Monocytes/100 WBC (Bld) 7.3 % 0-10 [facility] Blood platelet mean volumeOr dered By: David Miramontes on 09-29-2022 Platelet mean volume (Bld) [Entitic vol] 11.5 fL 6.2-12.0 [facility] Determination of erythrocyte mean corpuscular volume (MCV)Ordered By: David Miramontes on 09-29-2022 MCV (RBC) [Entitic vol] 99.4 fL 80-94 [facility] Hematocrit Auto (Bld) [Volum e fraction]Ordered By: David Miramontes on 09-29-2022 Hematocrit (Bld) [Volume fraction] 45.9 % 40-54 [facility] Laboratory - Chemistry and C hemistry - challengeOrdered By: David Miramontes on 09-29-2022 CO2 [Moles/Vol] 28.0 mmol/L 21.0-32.0 [facility] Urea nitrogen/Creatinine [Mass ratio] 13.8 mg/mg 10-20 [facility] Laboratory - Hematology and Cell countsOrdered By: David Miramontes on 09-29-2022 Erythrocyte distribution width (RBC) [Entitic vol] 51.7 fL 35.1-43.9 [facility] Erythrocyte distribution width (RBC) [Ratio] 14.2 % 11.6-14.6 [facility] Immature granulocytes/100 WBC (Bld) 0.600 % 0.0-0.9 [facility] Comment on above: IG% - Immature Granu locytes (promyelocytes, myelocytes and metamyelocytes) > 1% indicates that a LEFT SHIFT is Present. MCH (RBC) [Entitic mass] 31.6 pg 27.0-32.0 [facility] Nucleated RBC/100 WBC (Bld) [Ratio] 0 % 0-5 [facility] MCHC Auto (RBC) [Mass/Vol]Or dered By: David Miramontes on 09-29-2022 MCHC (RBC) [Mass/Vol] 31.8 g/dL 32-36 [facility] No Panel InformationOrdered By: David Miramontes on 09-29-2022 Estimated GFR (MDRD) Amer 98 mL/min >60 [facility] Comment on above: GFR Calc Estimated GFR (MDRD) Non-Af Amer 81 mL/min >60 [facility] Comment on above: Non- GFR Calc Platelets bldOrdered By: Lg Miramontes on 09-29-2022 Platelets (Bld) [#/Vol] 185 10*3/uL 150-450 [facility] Serum or plasma calcium siobhan urement (mass/volume)Ordered By: David Miramontes on 09-29-2022 Calcium [Mass/Vol] 8.9 mg/dL 8.5-10.1 [facility] Serum or plasma creatinine m easurement (mass/volume)Ordered By: David Miramontes on 09-29-2022 Creatinine [Mass/Vol] 0.94 mg/dL 0.70-1.30 [facility] Comment on above: The validity of the calculated GFR & GFRAA in patients over 70 years has not been determined. Clinical correlation is essential. Serum or plasma urea nitroge n measurement (mass/volume)Ordered By: David Miramontes on 09-29-2022 Urea nitrogen [Mass/Vol] 13 mg/dL 7-18 [facility] Thin prep Papanicolaou smear with manual screeningOrdered By: David Miramontes on 09-29-2022 Thin prep Papanicolaou smear with manual screening 4 5-15 [facility] Absolute lymphocyte countOrd ered By: David Miramontes on 06-29-2022 Lymphocytes Auto (Unsp spec) [#/Vol] 1.43 10*3/uL 0.83-4.51 [facility] Basophil percentageOrdered B y: David Miramontes on 06-29-2022 Basophils/100 WBC (Bld) 0.6 % 0-1 [facility] Chloride [Moles/Vol] 107 mmol/L 98-107 [facility] Eosinophils/100 WBC (Bld) 1.5 % 0-5 [facility] Glucose [Mass/Vol] 85 mg/dL 74-106 [facility] Neutrophils (Bld) [#/Vol] 4.4 10*3/uL 2.0-7.7 [facility] Neutrophils/100 WBC (Bld) 65.4 % 47-70 [facility] Potassium [Moles/Vol] 3.6 mmol/L 3.5-5.1 [facility] Sodium [Moles/Vol] 140 mmol/L 136-145 [facility] WBC (Bld) [#/Vol] 6.7 10*3/uL 4.4-11.0 [facility] Blood erythrocytes count (nu mber/volume)Ordered By: David Miramontes on 06-29-2022 RBC (Bld) [#/Vol] 4.55 10*6/uL 4.6-6.2 [facility] Blood hemoglobin measurement (mass/volume)Ordered By: David Miramontes on 06-29-2022 Hemoglobin (Bld) [Mass/Vol] 14.5 g/dL 13.0-16.5 [facility] Blood lymphocytes/100 leukoc ytesOrdered By: David Miramontes on 06-29-2022 Lymphocytes/100 WBC (Bld) 21.5 % 19-41 [facility] Blood monocytes/100 leukocyt esOrdered By: David Miramontes on 06-29-2022 Monocytes/100 WBC (Bld) 10.7 % 0-10 [facility] Blood platelet mean volumeOr dered By: David Miramontes on 06-29-2022 Platelet mean volume (Bld) [Entitic vol] 11.2 fL 6.2-12.0 [facility] Determination of erythrocyte mean corpuscular volume (MCV)Ordered By: David Miramontes on 06-29-2022 MCV (RBC) [Entitic vol] 98.9 fL 80-94 [facility] Hematocrit Auto (Bld) [Volum e fraction]Ordered By: David Miramontes on 06-29-2022 Hematocrit (Bld) [Volume fraction] 45.0 % 40-54 [facility] Laboratory - Chemistry and C hemistry - challengeOrdered By: David Miramontes on 06-29-2022 CO2 [Moles/Vol] 30.0 mmol/L 21.0-32.0 [facility] Urea nitrogen/Creatinine [Mass ratio] 13.6 mg/mg 10-20 [facility] Laboratory - Hematology and Cell countsOrdered By: David Miramontes on 06-29-2022 Erythrocyte distribution width (RBC) [Entitic vol] 51.6 fL 35.1-43.9 [facility] Erythrocyte distribution width (RBC) [Ratio] 14.3 % 11.6-14.6 [facility] Immature granulocytes/100 WBC (Bld) 0.300 % 0.0-0.9 [facility] Comment on above: IG% - Immature Granu locytes (promyelocytes, myelocytes and metamyelocytes) > 1% indicates that a LEFT SHIFT is Present. MCH (RBC) [Entitic mass] 31.9 pg 27.0-32.0 [facility] Nucleated RBC/100 WBC (Bld) [Ratio] 0 % 0-5 [facility] MCHC Auto (RBC) [Mass/Vol]Or dered By: David Miramontes on 06-29-2022 MCHC (RBC) [Mass/Vol] 32.2 g/dL 32-36 [facility] No Panel InformationOrdered By: David Miramontes on 06-29-2022 Estimated GFR (MDRD) Amer 89 mL/min >60 [facility] Comment on above: GFR Calc Estimated GFR (MDRD) Non-Af Amer 73 mL/min >60 [facility] Comment on above: Non- GFR Calc Platelets bldOrdered By: Lg Miramontes on 06-29-2022 Platelets (Bld) [#/Vol] 161 10*3/uL 150-450 [facility] Serum or plasma calcium siobhan urement (mass/volume)Ordered By: David Miramontes on 06-29-2022 Calcium [Mass/Vol] 8.7 mg/dL 8.5-10.1 [facility] Serum or plasma creatinine m easurement (mass/volume)Ordered By: David Miramontes on 06-29-2022 Creatinine [Mass/Vol] 1.03 mg/dL 0.70-1.30 [facility] Comment on above: The validity of the calculated GFR & GFRAA in patients over 70 years has not been determined. Clinical correlation is essential. Serum or plasma urea nitroge n measurement (mass/volume)Ordered By: David Miramontes on 06-29-2022 Urea nitrogen [Mass/Vol] 14 mg/dL 7-18 [facility] Thin prep Papanicolaou smear with manual screeningOrdered By: David Miramontes on 06-29-2022 Thin prep Papanicolaou smear with manual screening 3 5-15 [facility] Absolute lymphocyte countOrd ered By: David Miramontes on 04-01-2022 Lymphocytes Auto (Unsp spec) [#/Vol] 1.25 10*3/uL 0.83-4.51 [facility] Basophil percentageOrdered B y: David Miramontes on 04-01-2022 Basophils/100 WBC (Bld) 0.4 % 0-1 [facility] Chloride [Moles/Vol] 108 mmol/L 98-107 [facility] Eosinophils/100 WBC (Bld) 1.5 % 0-5 [facility] Glucose [Mass/Vol] 106 mg/dL 74-106 [facility] Comment on above: Fasting Glucose resu lt from 100 to 125 mg/dL suggests IMPAIRED HOMEOSTASIS per A.D.A. criteria. Neutrophils (Bld) [#/Vol] 4.7 10*3/uL 2.0-7.7 [facility] Neutrophils/100 WBC (Bld) 69.1 % 47-70 [facility] Potassium [Moles/Vol] 3.6 mmol/L 3.5-5.1 [facility] Sodium [Moles/Vol] 143 mmol/L 136-145 [facility] WBC (Bld) [#/Vol] 6.8 10*3/uL 4.4-11.0 [facility] Blood erythrocytes count (nu mber/volume)Ordered By: David Miramontes on 04-01-2022 RBC (Bld) [#/Vol] 4.69 10*6/uL 4.6-6.2 [facility] Blood hemoglobin measurement (mass/volume)Ordered By: David Miramontes on 04-01-2022 Hemoglobin (Bld) [Mass/Vol] 14.8 g/dL 13.0-16.5 [facility] Blood lymphocytes/100 leukoc ytesOrdered By: David Miramontes on 04-01-2022 Lymphocytes/100 WBC (Bld) 18.5 % 19-41 [facility] Blood monocytes/100 leukocyt esOrdered By: David Miramontes on 04-01-2022 Monocytes/100 WBC (Bld) 10.2 % 0-10 [facility] Blood platelet mean volumeOr dered By: David Miramontes on 04-01-2022 Platelet mean volume (Bld) [Entitic vol] 11.5 fL 6.2-12.0 [facility] Determination of erythrocyte mean corpuscular volume (MCV)Ordered By: danay Miramontes on 04-01-2022 MCV (RBC) [Entitic vol] 97.0 fL 80-94 [facility] Hematocrit Auto (Bld) [Volum e fraction]Ordered By: David Miramontes on 04-01-2022 Hematocrit (Bld) [Volume fraction] 45.5 % 40-54 [facility] Laboratory - Chemistry and C hemistry - challengeOrdered By: Frandywinchesteringris Miramontes on 04-01-2022 CO2 [Moles/Vol] 29.0 mmol/L 21.0-32.0 [facility] Urea nitrogen/Creatinine [Mass ratio] 13.0 mg/mg 10-20 [facility] Laboratory - Hematology and Cell countsOrdered By: Frandywinchesteringris Miramontes on 04-01-2022 Erythrocyte distribution width (RBC) [Entitic vol] 51.1 fL 35.1-43.9 [facility] Erythrocyte distribution width (RBC) [Ratio] 14.4 % 11.6-14.6 [facility] Immature granulocytes/100 WBC (Bld) 0.300 % 0.0-0.9 [facility] Comment on above: IG% - Immature Granu locytes (promyelocytes, myelocytes and metamyelocytes) > 1% indicates that a LEFT SHIFT is Present. MCH (RBC) [Entitic mass] 31.6 pg 27.0-32.0 [facility] Nucleated RBC/100 WBC (Bld) [Ratio] 0 % 0-5 [facility] MCHC Auto (RBC) [Mass/Vol]Or dered By: David Miramontes on 04-01-2022 MCHC (RBC) [Mass/Vol] 32.5 g/dL 32-36 [facility] No Panel InformationOrdered By: David Miramontes on 04-01-2022 Estimated GFR (MDRD) Amer 92 mL/min >60 [facility] Comment on above: GFR Calc Estimated GFR (MDRD) Non-Af Amer 76 mL/min >60 [facility] Comment on above: Non- GFR Calc Platelets bldOrdered By: Lg Miramontes on 04-01-2022 Platelets (Bld) [#/Vol] 167 10*3/uL 150-450 [facility] Serum or plasma calcium siobhan urement (mass/volume)Ordered By: David Miramontes on 04-01-2022 Calcium [Mass/Vol] 9.1 mg/dL 8.5-10.1 [facility] Serum or plasma creatinine m easurement (mass/volume)Ordered By: David Miramontes on 04-01-2022 Creatinine [Mass/Vol] 1.00 mg/dL 0.70-1.30 [facility] Comment on above: The validity of the calculated GFR & GFRAA in patients over 70 years has not been determined. Clinical correlation is essential. Serum or plasma urea nitroge n measurement (mass/volume)Ordered By: David Miramontes on 04-01-2022 Urea nitrogen [Mass/Vol] 13 mg/dL 7-18 [facility] Thin prep Papanicolaou smear with manual screeningOrdered By: David Miramontes on 04-01-2022 Thin prep Papanicolaou smear with manual screening 6 5-15 [facility] Absolute lymphocyte countOrd ered By: Jhonny Tomas on 01-07-2022 Lymphocytes Auto (Unsp spec) [#/Vol] 1.54 10*3/uL 0.83-4.51 [facility] Basophil percentageOrdered B y: Jhonny Tomas on 01-07-2022 Basophils/100 WBC (Bld) 0.3 % 0-1 [facility] Chloride [Moles/Vol] 104 mmol/L 98-107 [facility] Eosinophils/100 WBC (Bld) 1.9 % 0-5 [facility] Glucose [Mass/Vol] 89 mg/dL 74-106 [facility] Neutrophils (Bld) [#/Vol] 4.8 10*3/uL 2.0-7.7 [facility] Neutrophils/100 WBC (Bld) 66.5 % 47-70 [facility] Potassium [Moles/Vol] 4.1 mmol/L 3.5-5.1 [facility] Sodium [Moles/Vol] 141 mmol/L 136-145 [facility] WBC (Bld) [#/Vol] 7.2 10*3/uL 4.4-11.0 [facility] Blood erythrocytes count (nu mber/volume)Ordered By: Jhonny Tomas on 01-07-2022 RBC (Bld) [#/Vol] 4.80 10*6/uL 4.6-6.2 [facility] Blood hemoglobin measurement (mass/volume)Ordered By: Jhonny Tomas on 01-07-2022 Hemoglobin (Bld) [Mass/Vol] 15.2 g/dL 13.0-16.5 [facility] Blood lymphocytes/100 leukoc ytesOrdered By: Jhonny Tomas on 01-07-2022 Lymphocytes/100 WBC (Bld) 21.3 % 19-41 [facility] Blood monocytes/100 leukocyt esOrdered By: Jhonny Tomas on 01-07-2022 Monocytes/100 WBC (Bld) 9.7 % 0-10 [facility] Blood platelet mean volumeOr dered By: Jhonny Tomas on 01-07-2022 Platelet mean volume (Bld) [Entitic vol] 11.2 fL 6.2-12.0 [facility] Determination of erythrocyte mean corpuscular volume (MCV)Ordered By: Jhonny Tomas on 01-07-2022 MCV (RBC) [Entitic vol] 97.3 fL 80-94 [facility] Hematocrit Auto (Bld) [Volum e fraction]Ordered By: Jhonny Tomas on 01-07-2022 Hematocrit (Bld) [Volume fraction] 46.7 % 40-54 [facility] Laboratory - Chemistry and C hemistry - challengeOrdered By: Jhonny Tomas on 01-07-2022 CO2 [Moles/Vol] 29.0 mmol/L 21.0-32.0 [facility] Urea nitrogen/Creatinine [Mass ratio] 11.4 mg/mg 10-20 [facility] Laboratory - Hematology and Cell countsOrdered By: Jhonny Tomas on 01-07-2022 Erythrocyte distribution width (RBC) [Entitic vol] 52.0 fL 35.1-43.9 [facility] Erythrocyte distribution width (RBC) [Ratio] 14.5 % 11.6-14.6 [facility] Immature granulocytes/100 WBC (Bld) 0.300 % 0.0-0.9 [facility] Comment on above: IG% - Immature Granu locytes (promyelocytes, myelocytes and metamyelocytes) > 1% indicates that a LEFT SHIFT is Present. MCH (RBC) [Entitic mass] 31.7 pg 27.0-32.0 [facility] Nucleated RBC/100 WBC (Bld) [Ratio] 0 % 0-5 [facility] MCHC Auto (RBC) [Mass/Vol]Or dered By: Jhonny Tomas on 01-07-2022 MCHC (RBC) [Mass/Vol] 32.5 g/dL 32-36 [facility] No Panel InformationOrdered By: Jhonny Tomas on 01-07-2022 Estimated GFR (MDRD) Amer 79 mL/min >60 [facility] Comment on above: GFR Calc Estimated GFR (MDRD) Non-Af Amer 65 mL/min >60 [facility] Comment on above: Non- GFR Calc Platelets bldOrdered By: Joao Tomas on 01-07-2022 Platelets (Bld) [#/Vol] 192 10*3/uL 150-450 [facility] Serum or plasma calcium siobhan urement (mass/volume)Ordered By: Jhonny Tomas on 01-07-2022 Calcium [Mass/Vol] 8.8 mg/dL 8.5-10.1 [facility] Serum or plasma creatinine m easurement (mass/volume)Ordered By: Jhonny Tomas on 01-07-2022 Creatinine [Mass/Vol] 1.14 mg/dL 0.70-1.30 [facility] Comment on above: The validity of the calculated GFR & GFRAA in patients over 70 years has not been determined. Clinical correlation is essential. Serum or plasma urea nitroge n measurement (mass/volume)Ordered By: Jhonny Tomas on 01-07-2022 Urea nitrogen [Mass/Vol] 13 mg/dL 7-18 [facility] Thin prep Papanicolaou smear with manual screeningOrdered By: Jhonny Tomas on 01-07-2022 Thin prep Papanicolaou smear with manual screening 8 5-15 [facility] Absolute lymphocyte countOrd ered By: Jhonny Tomas on 12-24-2021 Lymphocytes Auto (Unsp spec) [#/Vol] 1.60 10*3/uL 0.83-4.51 [facility] Basophil percentageOrdered B y: Jhonny Tomas on 12-24-2021 Basophils/100 WBC (Bld) 0.4 % 0-1 [facility] Chloride [Moles/Vol] 109 mmol/L 98-107 [facility] Eosinophils/100 WBC (Bld) 1.5 % 0-5 [facility] Glucose [Mass/Vol] 93 mg/dL 74-106 [facility] Neutrophils (Bld) [#/Vol] 4.8 10*3/uL 2.0-7.7 [facility] Neutrophils/100 WBC (Bld) 66.8 % 47-70 [facility] Potassium [Moles/Vol] 4.0 mmol/L 3.5-5.1 [facility] Comment on above: Slight Hemolysis, Re sult may be falsely increased. Sodium [Moles/Vol] 140 mmol/L 136-145 [facility] WBC (Bld) [#/Vol] 7.2 10*3/uL 4.4-11.0 [facility] Blood erythrocytes count (nu mber/volume)Ordered By: Jhonny Tomas on 12-24-2021 RBC (Bld) [#/Vol] 4.49 10*6/uL 4.6-6.2 [facility] Blood hemoglobin measurement (mass/volume)Ordered By: Jhonny Tomas on 12-24-2021 Hemoglobin (Bld) [Mass/Vol] 14.5 g/dL 13.0-16.5 [facility] Blood lymphocytes/100 leukoc ytesOrdered By: Jhonny Tomas on 12-24-2021 Lymphocytes/100 WBC (Bld) 22.2 % 19-41 [facility] Blood monocytes/100 leukocyt esOrdered By: Jhonny Tomas on 12-24-2021 Monocytes/100 WBC (Bld) 9.0 % 0-10 [facility] Blood platelet mean volumeOr dered By: Jhonny Tomas on 12-24-2021 Platelet mean volume (Bld) [Entitic vol] 11.2 fL 6.2-12.0 [facility] Determination of erythrocyte mean corpuscular volume (MCV)Ordered By: Jhonny Tomas on 12-24-2021 MCV (RBC) [Entitic vol] 97.1 fL 80-94 [facility] Hematocrit Auto (Bld) [Volum e fraction]Ordered By: Jhonny Tomas on 12-24-2021 Hematocrit (Bld) [Volume fraction] 43.6 % 40-54 [facility] Laboratory - Chemistry and C hemistry - challengeOrdered By: Jhonny Tomas on 12-24-2021 CO2 [Moles/Vol] 26.0 mmol/L 21.0-32.0 [facility] Urea nitrogen/Creatinine [Mass ratio] 14.7 mg/mg 10-20 [facility] Laboratory - Hematology and Cell countsOrdered By: Jhonny Tomas on 12-24-2021 Erythrocyte distribution width (RBC) [Entitic vol] 51.8 fL 35.1-43.9 [facility] Erythrocyte distribution width (RBC) [Ratio] 14.4 % 11.6-14.6 [facility] Immature granulocytes/100 WBC (Bld) 0.100 % 0.0-0.9 [facility] Comment on above: IG% - Immature Granu locytes (promyelocytes, myelocytes and metamyelocytes) > 1% indicates that a LEFT SHIFT is Present. MCH (RBC) [Entitic mass] 32.3 pg 27.0-32.0 [facility] Nucleated RBC/100 WBC (Bld) [Ratio] 0 % 0-5 [facility] MCHC Auto (RBC) [Mass/Vol]Or dered By: Jhonny Tomas on 12-24-2021 MCHC (RBC) [Mass/Vol] 33.3 g/dL 32-36 [facility] No Panel InformationOrdered By: Jhonny Tomas on 12-24-2021 Estimated GFR (MDRD) Amer 90 mL/min >60 [facility] Comment on above: GFR Calc Estimated GFR (MDRD) Non-Af Amer 74 mL/min >60 [facility] Comment on above: Non- GFR Calc Platelets bldOrdered By: Joao Tomas on 12-24-2021 Platelets (Bld) [#/Vol] 166 10*3/uL 150-450 [facility] Serum or plasma calcium siobhan urement (mass/volume)Ordered By: Jhonny Tomas on 12-24-2021 Calcium [Mass/Vol] 8.8 mg/dL 8.5-10.1 [facility] Serum or plasma creatinine m easurement (mass/volume)Ordered By: Jhonny Tomas on 12-24-2021 Creatinine [Mass/Vol] 1.02 mg/dL 0.70-1.30 [facility] Comment on above: The validity of the calculated GFR & GFRAA in patients over 70 years has not been determined. Clinical correlation is essential. Serum or plasma urea nitroge n measurement (mass/volume)Ordered By: Jhonny Tomas on 12-24-2021 Urea nitrogen [Mass/Vol] 15 mg/dL 7-18 [facility] Thin prep Papanicolaou smear with manual screeningOrdered By: Jhonny Tomas on 12-24-2021 Thin prep Papanicolaou smear with manual screening 5 5-15 [facility] Absolute lymphocyte counton 12-10-2021 Lymphocytes Auto (Unsp spec) [#/Vol] 1.33 10*3/uL 0.83-4.51 [facility] Work Phone: Basophil percentageon 2021 Basophils/100 WBC (Bld) 0.4 % 0-1 [facility] Work Phone: Chloride [Moles/Vol] 105 mmol/L 98-107 [facility] Work Phone: [phone] Eosinophils/100 WBC (Bld) 1.3 % 0-5 [facility] Work Phone: [phone] Glucose [Mass/Vol] 103 mg/dL 74-106 [facility] Work Phone: Comment on above: Fasting Glucose resu lt from 100 to 125 mg/dL suggests IMPAIRED HOMEOSTASIS per A.D.A. criteria. Neutrophils (Bld) [#/Vol] 4.8 10*3/uL 2.0-7.7 [facility] Work Phone: Neutrophils/100 WBC (Bld) 69.1 % 47-70 [facility] Work Phone: Potassium [Moles/Vol] 3.7 mmol/L 3.5-5.1 [facility] Work Phone: Sodium [Moles/Vol] 141 mmol/L 136-145 [facility] Work Phone: WBC (Bld) [#/Vol] 7.0 10*3/uL 4.4-11.0 [facility] Work Phone: Blood erythrocytes count (nu mber/volume)on 12-10-2021 RBC (Bld) [#/Vol] 4.88 10*6/uL 4.6-6.[address] [facility] [facility] Work Phone: Blood hemoglobin measurement (mass/volume)on 12-10-2021 Hemoglobin (Bld) [Mass/Vol] 15.5 g/dL 13.0-16.5 [facility] Work Phone: Blood lymphocytes/100 leukoc yteson 12-10-2021 Lymphocytes/100 WBC (Bld) 19.1 % 19-41 [facility] Work Phone: Blood monocytes/100 leukocyt eson 12-10-2021 Monocytes/100 WBC (Bld) 9.8 % 0-10 [facility] Work Phone: Blood platelet mean volumeon 12-10-2021 Platelet mean volume (Bld) [Entitic vol] 10.8 fL 6.2-12.0 [facility] Work Phone: Determination of erythrocyte mean corpuscular volume (MCV)on 12-10-2021 MCV (RBC) [Entitic vol] 95.9 fL 80-94 [facility] Work Phone: Hematocrit Auto (Bld) [Volum e fraction]on 12-10-2021 Hematocrit (Bld) [Volume fraction] 46.8 % 40-54 [facility] Work Phone: Laboratory - Chemistry and C hemistry - challengeon 12-10-2021 CO2 [Moles/Vol] 30.0 mmol/L 21.0-32.0 [facility] Work Phone: Urea nitrogen/Creatinine [Mass ratio] 11.3 mg/mg 10-20 [facility] Work Phone: Laboratory - Hematology and Cell countson 12-10-2021 Erythrocyte distribution width (RBC) [Entitic vol] 51.1 fL 35.1-43.9 [facility] Work Phone: Erythrocyte distribution width (RBC) [Ratio] 14.4 % 11.6-14.6 [facility] Work Phone: Immature granulocytes/100 WBC (Bld) 0.300 % 0.0-0.9 [facility] Work Phone: Comment on above: IG% - Immature Granu locytes (promyelocytes, myelocytes and metamyelocytes) > 1% indicates that a LEFT SHIFT is Present. MCH (RBC) [Entitic mass] 31.8 pg 27.0-32.0 [facility] Work Phone: Nucleated RBC/100 WBC (Bld) [Ratio] 0 % 0-5 [facility] Work Phone: MCHC Auto (RBC) [Mass/Vol]on 12-10-2021 MCHC (RBC) [Mass/Vol] 33.1 g/dL 32-36 [facility] Work Phone: No Panel Informationon 12-10 Estimated GFR (MDRD) Amer 86 mL/min >60 [facility] Work Phone: Comment on above: GFR Calc Estimated GFR (MDRD) Non-Af Amer 71 mL/min >60 [facility] Work Phone: Comment on above: Non- GFR Calc Platelets bldon 12-10-2021 Platelets (Bld) [#/Vol] 176 10*3/uL 150-450 [facility] Work Phone: Serum or plasma calcium siobhan urement (mass/volume)on 12-10-2021 Calcium [Mass/Vol] 8.9 mg/dL 8.5-10.1 [facility] Work Phone: Serum or plasma creatinine m easurement (mass/volume)on 12-10-2021 Creatinine [Mass/Vol] 1.06 mg/dL 0.70-1.30 [facility] ster [facility] Work Phone: Comment on above: The validity of the calculated GFR & GFRAA in patients over 70 years has not been determined. Clinical correlation is essential. Serum or plasma urea nitroge n measurement (mass/volume)on 12-10-2021 Urea nitrogen [Mass/Vol] 12 mg/dL 7-18 [facility] Work Phone: Thin prep Papanicolaou smear with manual screeningon 12-10-2021 Thin prep Papanicolaou smear with manual screening 6 -15 [facility] Work Phone: CNPNon 12-09-2021 CNPN Telephone (INTMWS) KEL DILLARD ([id number]) 1940 M Date Time Provider Department 12/09/21 NICOLAS KAUR INTMWS During your visit today, we recorded the following information about you: Ludivina Cárdenas LPN 12/09/2021 3:11 PM Signed Patient son Jhonny willis said PCP completed expert evaluation form on 09/29 for guardianship and marketing support coordinator said question number [phone] needs revised. Son Jhonny said 2 weeks after form was done father had fall and was taken to [facility] then sent to [facility] for rehab. Now father is in memory [...] stay and he is now under the [place] attending physician's care. It is more appropriate for the [place] attending physician to do another form. More statements need corrected/updated Preethi Delgadillo RN 12/11/2021 2:59 PM Signed Son (Jhonny) calls in and provider message reviewed. Son asking if form brought in can be picked back up in Medical Records. Please contact Jhonny at [phone]. RENETTA Rubio LPN 12/11/2021 3:41 PM Signed [...] by FLORA BRASHER LPN on 12/11/21 Normal [facility] Absolute lymphocyte counton 11-26-2021 Lymphocytes Auto (Unsp spec) [#/Vol] 1.47 10*3/uL 0.83-4.51 [facility] Work Phone: Basophil percentageon 2021 Basophils/100 WBC (Bld) 0.6 % 0-1 [facility] Work Phone: [phone] Chloride [Moles/Vol] 107 mmol/L 98-107 [facility] Work Phone: [phone] Eosinophils/100 WBC (Bld) 1.1 % 0-5 [facility] Work Phone: Glucose [Mass/Vol] 92 mg/dL 74-106 [facility] Work Phone: Neutrophils (Bld) [#/Vol] 6.4 10*3/uL 2.0-7.7 [facility] Work Phone: Neutrophils/100 WBC (Bld) 71.7 % 47-70 [facility] Work Phone: Potassium [Moles/Vol] 4.0 mmol/L 3.5-5.1 [facility] Work Phone: Comment on above: Slight Hemolysis, Re sult may be falsely increased. Sodium [Moles/Vol] 141 mmol/L 136-145 [facility] Work Phone: WBC (Bld) [#/Vol] 9.0 10*3/uL 4.4-11.0 [facility] Work Phone: Blood erythrocytes count (nu mber/volume)on 11-26-2021 RBC (Bld) [#/Vol] 4.81 10*6/uL 4.6-6.[address] [facility] [facility] [facility] Work Phone: Blood hemoglobin measurement (mass/volume)on 11-26-2021 Hemoglobin (Bld) [Mass/Vol] 15.3 g/dL 13.0-16.5 [facility] Work Phone: Blood lymphocytes/100 leukoc yteson 11-26-2021 Lymphocytes/100 WBC (Bld) 16.4 % 19-41 [facility] Work Phone: Blood monocytes/100 leukocyt eson 11-26-2021 Monocytes/100 WBC (Bld) 9.9 % 0-10 [facility] Work Phone: Blood platelet mean volumeon 11-26-2021 Platelet mean volume (Bld) [Entitic vol] 11.2 fL 6.2-12.0 [facility] Work Phone: Determination of erythrocyte mean corpuscular volume (MCV)on 11-26-2021 MCV (RBC) [Entitic vol] 96.7 fL 80-94 [facility] Work Phone: Hematocrit Auto (Bld) [Volum e fraction]on 11-26-2021 Hematocrit (Bld) [Volume fraction] 46.5 % 40-54 [facility] Work Phone: Laboratory - Chemistry and C hemistry - challengeon 11-26-2021 CO2 [Moles/Vol] 28.0 mmol/L 21.0-32.0 [facility] Work Phone: Urea nitrogen/Creatinine [Mass ratio] 13.3 mg/mg 10-20 [facility] Work Phone: Laboratory - Hematology and Cell countson 11-26-2021 Erythrocyte distribution width (RBC) [Entitic vol] 51.9 fL 35.1-43.9 [facility] Work Phone: Erythrocyte distribution width (RBC) [Ratio] 14.5 % 11.6-14.6 [facility] Work Phone: Immature granulocytes/100 WBC (Bld) 0.300 % 0.0-0.9 [facility] Work Phone: Comment on above: IG% - Immature Granu locytes (promyelocytes, myelocytes and metamyelocytes) > 1% indicates that a LEFT SHIFT is Present. MCH (RBC) [Entitic mass] 31.8 pg 27.0-32.0 [facility] Work Phone: Nucleated RBC/100 WBC (Bld) [Ratio] 0 % 0-5 [facility] Work Phone: MCHC Auto (RBC) [Mass/Vol]on 11-26-2021 MCHC (RBC) [Mass/Vol] 32.9 g/dL 32-36 [facility] Work Phone: No Panel Informationon 11-26 Estimated GFR (MDRD) Amer 80 mL/min >60 [facility] Work Phone: Comment on above: GFR Calc Estimated GFR (MDRD) Non-Af Amer 66 mL/min >60 [facility] Work Phone: Comment on above: Non- GFR Calc Platelets bldon 11-26-2021 Platelets (Bld) [#/Vol] 181 10*3/uL 150-450 [facility] Work Phone: Serum or plasma calcium siobhan urement (mass/volume)on 11-26-2021 Calcium [Mass/Vol] 8.7 mg/dL 8.5-10.1 [facility] Work Phone: Serum or plasma creatinine m easurement (mass/volume)on 11-26-2021 Creatinine [Mass/Vol] 1.13 mg/dL 0.70-1.30 [facility] Work Phone: Comment on above: The validity of the calculated GFR & GFRAA in patients over 70 years has not been determined. Clinical correlation is essential. Serum or plasma urea nitroge n measurement (mass/volume)on 11-26-2021 Urea nitrogen [Mass/Vol] 15 mg/dL 7-18 [facility] Work Phone: Thin prep Papanicolaou smear with manual screeningon 11-26-2021 Thin prep Papanicolaou smear with manual screening 6 5-15 [facility] Work Phone: Absolute lymphocyte counton 11-12-2021 Lymphocytes Auto (Unsp spec) [#/Vol] 1.01 10*3/uL 0.83-4.51 [facility] Work Phone: Basophil percentageon 2021 Basophils/100 WBC (Bld) 0.6 % 0-1 [facility] Work Phone: Chloride [Moles/Vol] 109 mmol/L 98-107 [facility] Work Phone: Eosinophils/100 WBC (Bld) 1.1 % 0-5 [facility] Work Phone: Glucose [Mass/Vol] 89 mg/dL 74-106 [facility] Work Phone: Neutrophils (Bld) [#/Vol] 4.7 10*3/uL 2.0-7.7 [facility] Work Phone: [phone] Neutrophils/100 WBC (Bld) 72.7 % 47-70 [facility] Work Phone: Potassium [Moles/Vol] 3.9 mmol/L 3.5-5.1 [facility] Work Phone: Sodium [Moles/Vol] 142 mmol/L 136-145 [facility] Work Phone: WBC (Bld) [#/Vol] 6.5 10*3/uL 4.4-11.0 [facility] Work Phone: Blood erythrocytes count (nu mber/volume)on 11-12-2021 RBC (Bld) [#/Vol] 4.50 10*6/uL 4.6-6.[address] [facility] [facility] [facility] Work Phone: Blood hemoglobin measurement (mass/volume)on 11-12-2021 Hemoglobin (Bld) [Mass/Vol] 14.4 g/dL 13.0-16.5 [facility] Work Phone: Blood lymphocytes/100 leukoc yteson 11-12-2021 Lymphocytes/100 WBC (Bld) 15.5 % 19-41 [facility] Work Phone: Blood monocytes/100 leukocyt eson 11-12-2021 Monocytes/100 WBC (Bld) 9.8 % 0-10 [facility] Work Phone: Blood platelet mean volumeon 11-12-2021 Platelet mean volume (Bld) [Entitic vol] 10.9 fL 6.2-12.0 [facility] Work Phone: Determination of erythrocyte mean corpuscular volume (MCV)on 11-12-2021 MCV (RBC) [Entitic vol] 97.3 fL 80-94 [facility] Work Phone: Hematocrit Auto (Bld) [Volum e fraction]on 11-12-2021 Hematocrit (Bld) [Volume fraction] 43.8 % 40-54 [facility] Work Phone: Laboratory - Chemistry and C hemistry - challengeon 11-12-2021 CO2 [Moles/Vol] 26.0 mmol/L 21.0-32.0 [facility] Work Phone: Urea nitrogen/Creatinine [Mass ratio] 16.4 mg/mg 10-20 [facility] Work Phone: Laboratory - Hematology and Cell countson 11-12-2021 Erythrocyte distribution width (RBC) [Entitic vol] 53.1 fL 35.1-43.9 [facility] Work Phone: Erythrocyte distribution width (RBC) [Ratio] 14.8 % 11.6-14.6 [facility] Work Phone: Immature granulocytes/100 WBC (Bld) 0.300 % 0.0-0.9 [facility] Work Phone: Comment on above: IG% - Immature Granu locytes (promyelocytes, myelocytes and metamyelocytes) > 1% indicates that a LEFT SHIFT is Present. MCH (RBC) [Entitic mass] 32.0 pg 27.0-32.0 [facility] Work Phone: Nucleated RBC/100 WBC (Bld) [Ratio] 0 % 0-5 [facility] Work Phone: MCHC Auto (RBC) [Mass/Vol]on 11-12-2021 MCHC (RBC) [Mass/Vol] 32.9 g/dL 32-36 [facility] Work Phone: No Panel Informationon 11-12 Estimated GFR (MDRD) Amer 102 mL/min >60 [facility] Work Phone: Comment on above: GFR Calc Estimated GFR (MDRD) Non-Af Amer 84 mL/min >60 [facility] Work Phone: Comment on above: Non- GFR Calc Platelets bldon 11-12-2021 Platelets (Bld) [#/Vol] 181 10*3/uL 150-450 [facility] Work Phone: Serum or plasma calcium siobhan urement (mass/volume)on 11-12-2021 Calcium [Mass/Vol] 8.7 mg/dL 8.5-10.1 [facility] Work Phone: Serum or plasma creatinine m easurement (mass/volume)on 11-12-2021 Creatinine [Mass/Vol] 0.92 mg/dL 0.70-1.30 [facility] Work Phone: Comment on above: The validity of the calculated GFR & GFRAA in patients over 70 years has not been determined. Clinical correlation is essential. Serum or plasma urea nitroge n measurement (mass/volume)on 11-12-2021 Urea nitrogen [Mass/Vol] 15 mg/dL 7-18 [facility] Work Phone: Thin prep Papanicolaou smear with manual screeningon 11-12-2021 Thin prep Papanicolaou smear with manual screening 7 -15 [facility] Work Phone: Absolute lymphocyte counton 10-29-2021 Lymphocytes Auto (Unsp spec) [#/Vol] 0.96 10*3/uL 0.83-4.51 [facility] Work Phone: Basophil percentageon 2021 Basophils/100 WBC (Bld) 0.5 % 0-1 [facility] Work Phone: Chloride [Moles/Vol] 110 mmol/L 98-107 [facility] Work Phone: [phone] Eosinophils/100 WBC (Bld) 1.9 % 0-5 [facility] Work Phone: Glucose [Mass/Vol] 93 mg/dL 74-106 [facility] Work Phone: Neutrophils (Bld) [#/Vol] 4.5 10*3/uL 2.0-7.7 [facility] Work Phone: Neutrophils/100 WBC (Bld) 70.1 % 47-70 [facility] Work Phone: Potassium [Moles/Vol] 3.8 mmol/L 3.5-5.1 [facility] Work Phone: Sodium [Moles/Vol] 142 mmol/L 136-145 [facility] Work Phone: WBC (Bld) [#/Vol] 6.4 10*3/uL 4.4-11.0 [facility] Work Phone: Blood erythrocytes count (nu mber/volume)on 10-29-2021 RBC (Bld) [#/Vol] 4.38 10*6/uL 4.6-6.[address] [facility] [facility] [facility] Work Phone: Blood hemoglobin measurement (mass/volume)on 10-29-2021 Hemoglobin (Bld) [Mass/Vol] 13.9 g/dL 13.0-16.5 [facility] Work Phone: Blood lymphocytes/100 leukoc yteson 10-29-2021 Lymphocytes/100 WBC (Bld) 15.1 % 19-41 [facility] Work Phone: Blood monocytes/100 leukocyt eson 10-29-2021 Monocytes/100 WBC (Bld) 12.1 % 0-10 [facility] Work Phone: Blood platelet mean volumeon 10-29-2021 Platelet mean volume (Bld) [Entitic vol] 11.2 fL 6.2-12.0 [facility] Work Phone: Determination of erythrocyte mean corpuscular volume (MCV)on 10-29-2021 MCV (RBC) [Entitic vol] 96.8 fL 80-94 [facility] Work Phone: Hematocrit Auto (Bld) [Volum e fraction]on 10-29-2021 Hematocrit (Bld) [Volume fraction] 42.4 % 40-54 [facility] Work Phone: Laboratory - Chemistry and C hemistry - challengeon 10-29-2021 CO2 [Moles/Vol] 27.0 mmol/L 21.0-32.0 [facility] Work Phone: Urea nitrogen/Creatinine [Mass ratio] 11.1 mg/mg 10-20 [facility] Work Phone: Laboratory - Hematology and Cell countson 10-29-2021 Erythrocyte distribution width (RBC) [Entitic vol] 52.1 fL 35.1-43.9 [facility] Work Phone: Erythrocyte distribution width (RBC) [Ratio] 14.6 % 11.6-14.6 [facility] Work Phone: Immature granulocytes/100 WBC (Bld) 0.300 % 0.0-0.9 [facility] Work Phone: Comment on above: IG% - Immature Granu locytes (promyelocytes, myelocytes and metamyelocytes) > 1% indicates that a LEFT SHIFT is Present. MCH (RBC) [Entitic mass] 31.7 pg 27.0-32.0 [facility] Work Phone: Nucleated RBC/100 WBC (Bld) [Ratio] 0 % 0-5 [facility] Work Phone: MCHC Auto (RBC) [Mass/Vol]on 10-29-2021 MCHC (RBC) [Mass/Vol] 32.8 g/dL 32-36 [facility] Work Phone: No Panel Informationon 10-29 Estimated GFR (MDRD) Amer 84 mL/min >60 [facility] Work Phone: Comment on above: GFR Calc Estimated GFR (MDRD) Non-Af Amer 70 mL/min >60 [facility] Work Phone: Comment on above: Non- GFR Calc Platelets bldon 10-29-2021 Platelets (Bld) [#/Vol] 187 10*3/uL 150-450 [facility] Work Phone: Serum or plasma calcium siobhan urement (mass/volume)on 10-29-2021 Calcium [Mass/Vol] 8.8 mg/dL 8.5-10.1 [facility] Work Phone: Serum or plasma creatinine m easurement (mass/volume)on 10-29-2021 Creatinine [Mass/Vol] 1.08 mg/dL 0.70-1.30 [facility] Work Phone: Comment on above: The validity of the calculated GFR & GFRAA in patients over 70 years has not been determined. Clinical correlation is essential. Serum or plasma urea nitroge n measurement (mass/volume)on 10-29-2021 Urea nitrogen [Mass/Vol] 12 mg/dL 7-18 [facility] Work Phone: Thin prep Papanicolaou smear with manual screeningon 10-29-2021 Thin prep Papanicolaou smear with manual screening 5 5-15 [facility] Work Phone: CNPSavana [facility]-23[facility]20[facility] KEL DILLARD ([id number]) 1940 M Date Time Provider Department 10/23/21 NICOLAS KAUR INTMWS During your visit today, we recorded the following information about you: Flora Brasher LPN 10/23/2021 11:54 AM Signed Per [facility] discharge info pt was discharged to [facility] 10/22/21. Allergies As of Date: 10/23/2021 [...] by FLORA BRASHER LPN on 10/23/21 Normal [facility] Laboratory - Chemistry and C hemistry - challengeon 10-22-2021 CK [Catalytic activity/Vol] 1616 U/L 39-308 [facility] Work Phone: [phone] Absolute lymphocyte counton 10-21-2021 Lymphocytes Auto (Unsp spec) [#/Vol] 0.75 10*3/uL 0.83-4.51 [facility] Work Phone: Basophil percentageon 2021 Basophils/100 WBC (Bld) 0.1 % 0-1 [facility] Work Phone: [phone] Chloride [Moles/Vol] 107 mmol/L 98-107 [facility] Work Phone: [phone] Eosinophils/100 WBC (Bld) 0.0 % 0-5 [facility] Work Phone: Glucose [Mass/Vol] 144 mg/dL 74-106 [facility] Work Phone: [phone] Comment on above: Fasting Glucose resu lt greater than or equal to 126 mg/dL suggests DIABETES MELLITUS per A.D.A. criteria. Neutrophils (Bld) [#/Vol] 11.4 10*3/uL 2.0-7.7 [facility] Work Phone: [phone] Neutrophils/100 WBC (Bld) 85.4 % 47-70 [facility] Work Phone: [phone] Potassium [Moles/Vol] 3.7 mmol/L 3.5-5.1 [facility] Work Phone: [phone] Sodium [Moles/Vol] 141 mmol/L 136-145 [facility] Work Phone: [phone] WBC (Bld) [#/Vol] 13.4 10*3/uL 4.4-11.0 [facility] Work Phone: Blood erythrocytes count (nu mber/volume)on 10-21-2021 RBC (Bld) [#/Vol] 5.04 10*6/uL 4.6-[facility] [facility]: Blood hemoglobin measurement (mass/volume)on 10-21-2021 Hemoglobin (Bld) [Mass/Vol] 15.7 g/dL 13.0-16.5 [facility] Work Phone: Blood lymphocytes/100 leukoc yteson 10-21-2021 Lymphocytes/100 WBC (Bld) 5.6 % 19-41 [facility] Work Phone: Blood monocytes/100 leukocyt eson 10-21-2021 Monocytes/100 WBC (Bld) 8.5 % 0-10 [facility] Work Phone: Blood platelet mean volumeon 10-21-2021 Platelet mean volume (Bld) [Entitic vol] 11.2 fL 6.2-12.0 [facility] Work Phone: Determination of erythrocyte mean corpuscular volume (MCV)on 10-21-2021 MCV (RBC) [Entitic vol] 93.8 fL 80-94 [facility] Work Phone: Hematocrit Auto (Bld) [Volum e fraction]on 10-21-2021 Hematocrit (Bld) [Volume fraction] 47.3 % 40-54 [facility] Work Phone: Laboratory - Chemistry and C hemistry - challengeon 10-21-2021 CO2 [Moles/Vol] 26.0 mmol/L 21.0-32.0 [facility] Work Phone: Urea nitrogen/Creatinine [Mass ratio] 14.2 mg/mg 10-20 [facility] Work Phone: Laboratory - Hematology and Cell countson 10-21-2021 Erythrocyte distribution width (RBC) [Entitic vol] 50.5 fL 35.1-43.9 [facility] Work Phone: Erythrocyte distribution width (RBC) [Ratio] 14.7 % 11.6-14.6 [facility] Work Phone: Immature granulocytes/100 WBC (Bld) 0.400 % 0.0-0.9 [facility] Work Phone: Comment on above: IG% - Immature Granu locytes (promyelocytes, myelocytes and metamyelocytes) > 1% indicates that a LEFT SHIFT is Present. MCH (RBC) [Entitic mass] 31.2 pg 27.0-32.0 [facility] Work Phone: Nucleated RBC/100 WBC (Bld) [Ratio] 0 % 0-5 [facility] Work Phone: MCHC Auto (RBC) [Mass/Vol]on 10-21-2021 MCHC (RBC) [Mass/Vol] 33.2 g/dL 32-36 [facility] Work Phone: No Panel Informationon 10-21 Estimated Creatinine Clearance Calc 48.76 ml/min [facility] Work Phone: Estimated GFR (MDRD) Amer 80 mL/min >60 [facility] Work Phone: Comment on above: GFR Calc Estimated GFR (MDRD) Non-Af Amer 66 mL/min >60 [facility] Work Phone: Comment on above: Non- GFR Calc Thyroid Stimulating Hormone (TSH) 1.56 uIU/mL 0.358-3.74 [facility] Work Phone: Vitamin D 25-Hydroxy 10.8 ng/mL [facility] Work Phone: Comment on above: Vitamin D 25(OH) Sta tus Range Deficiency <20 ng/mL (50nmol/L) Insufficiency 20 - 30 ng/mL (50 - 75 nmol/L) Sufficiency 30 - 100 ng/mL (75 - 250 nmol/L) Toxicity >100 ng/mL (>250 nmol/L) Platelets bldon 10-21-2021 Platelets (Bld) [#/Vol] 219 10*3/uL 150-450 [facility] Work Phone: Serum or plasma calcium siobhan urement (mass/volume)on 10-21-2021 Calcium [Mass/Vol] 9.1 mg/dL 8.5-10.1 [facility] Work Phone: Serum or plasma creatinine m easurement (mass/volume)on 10-21-2021 Creatinine [Mass/Vol] 1.13 mg/dL 0.70-1.30 [facility] Work Phone: Comment on above: The validity of the calculated GFR & GFRAA in patients over 70 years has not been determined. Clinical correlation is essential. Serum or plasma urea nitroge n measurement (mass/volume)on 10-21-2021 Urea nitrogen [Mass/Vol] 16 mg/dL 7-18 [facility] Work Phone: Thin prep Papanicolaou smear with manual screeningon 10-21-2021 Thin prep Papanicolaou smear with manual screening 8 5-15 [facility] Work Phone: Absolute lymphocyte counton 10-20-2021 Lymphocytes Auto (Unsp spec) [#/Vol] 0.59 10*3/uL 0.83-4.51 [facility] Work Phone: Basophil percentageon 2021 Basophil percentage 5-10 SEEN /hpf 0-5 [facility] Work Phone: Basophils/100 WBC (Bld) 0.1 % 0-1 [facility] Work Phone: Chloride [Moles/Vol] 107 mmol/L 98-107 [facility] Work Phone: [phone] Eosinophils/100 WBC (Bld) 0.0 % 0-5 [facility] Work Phone: Glucose [Mass/Vol] 110 mg/dL 74-106 [facility] Work Phone: Comment on above: Fasting Glucose resu lt from 100 to 125 mg/dL suggests IMPAIRED HOMEOSTASIS per A.D.A. criteria. Neutrophils (Bld) [#/Vol] 11.6 10*3/uL 2.0-7.7 [facility] Work Phone: Neutrophils/100 WBC (Bld) 85.8 % 47-70 [facility] Work Phone: Potassium [Moles/Vol] 3.6 mmol/L 3.5-5.1 [facility] Work Phone: Sodium [Moles/Vol] 141 mmol/L 136-145 [facility] Work Phone: WBC (Bld) [#/Vol] 13.5 10*3/uL 4.4-11.0 [facility] Work Phone: Bilirubin Test strip Ql (U)o n 10-20-2021 Bilirubin Ql (U) Negative Negative [facility] Work Phone: Blood erythrocytes count (nu mber/volume)on 10-20-2021 RBC (Bld) [#/Vol] 5.14 10*6/uL 4.6-6.2 [facility] Work Phone: Blood hemoglobin measurement (mass/volume)on 10-20-2021 Hemoglobin (Bld) [Mass/Vol] 15.9 g/dL 13.0-16.5 [facility] Work Phone: Blood lymphocytes/100 leukoc yteson 10-20-2021 Lymphocytes/100 WBC (Bld) 4.4 % 19-41 [facility] Work Phone: Blood manual differential co mment interpretation (narrative result)on 10-20-2021 Manual differential comment Wei (Bld) [Interp] SEE COMMENT [facility] Work Phone: Comment on above: LYMPHOPENIA NOTED Blood monocytes/100 leukocyt eson 10-20-2021 Monocytes/100 WBC (Bld) 9.0 % 0-10 [facility] Work Phone: Blood platelet adequacy dete ction by light microscopyon 10-20-2021 Platelets LM Ql (Bld) ADEQUATE ADEQ [facility] Work Phone: Blood platelet mean volumeon 10-20-2021 Platelet mean volume (Bld) [Entitic vol] 10.4 fL 6.2-12.0 [facility] Work Phone: Determination of erythrocyte mean corpuscular volume (MCV)on 10-20-2021 MCV (RBC) [Entitic vol] 92.8 fL 80-94 [facility] Work Phone: Hematocrit Auto (Bld) [Volum e fraction]on 10-20-2021 Hematocrit (Bld) [Volume fraction] 47.7 % 40-54 [facility] Work Phone: Hyaline casts LM.LPF (Urine sed) [#/Area]on 10-20-2021 Hyaline casts (Urine sed) [#/Area] 0 /[LPF] 0-5 [facility] Work Phone: Ketones Test strip Ql (U)on 10-20-2021 Ketones Ql (U) 50 mg/dl Negative [facility] Work Phone: Laboratory - Chemistry and C hemistry - challengeon 10-20-2021 CO2 [Moles/Vol] 25.0 mmol/L 21.0-32.0 [facility] Work Phone: Urea nitrogen/Creatinine [Mass ratio] 15.0 mg/mg 10-20 [facility] Work Phone: Laboratory - Hematology and Cell countson 10-20-2021 Anisocytosis Ql (Bld) [facility]: Erythrocyte distribution width (RBC) [Entitic vol] 48.4 fL 35.1-43.9 [facility] Work Phone: Erythrocyte distribution width (RBC) [Ratio] 14.4 % 11.6-14.6 [facility] Work Phone: Immature granulocytes/100 WBC (Bld) 0.700 % 0.0-0.9 [facility] Work Phone: Comment on above: IG% - Immature Granu locytes (promyelocytes, myelocytes and metamyelocytes) > 1% indicates that a LEFT SHIFT is Present. MCH (RBC) [Entitic mass] 30.9 pg 27.0-32.0 [facility] Work Phone: Nucleated RBC/100 WBC (Bld) [Ratio] 0 % 0-5 [facility] Work Phone: MCHC Auto (RBC) [Mass/Vol]on 10-20-2021 MCHC (RBC) [Mass/Vol] 33.3 g/dL 32-36 [facility] Work Phone: Macrocytes detectionon 10-20 Macrocytes Ql (Bld) RARE [facility] Work Phone: Mucus LM Ql (Urine sed)on Mucus Ql (Urine sed) 0 SEEN /hpf [facility] Work Phone: Nitrite Test strip Ql (U)on 10-20-2021 Nitrite Ql (U) Negative Negative [facility] Work Phone: No Panel Informationon 10-20 Estimated Creatinine Clearance Calc 53.23 ml/min [facility] Work Phone: Estimated GFR (MDRD) Amer 85 mL/min >60 [facility] Work Phone: Comment on above: GFR Calc Estimated GFR (MDRD) Non-Af Amer 70 mL/min >60 [facility] Work Phone: Comment on above: Non- GFR Calc Platelets bldon 10-20-2021 Platelets (Bld) [#/Vol] 198 10*3/uL 150-450 [facility] Work Phone: Protein Test strip Ql (U)on 10-20-2021 Protein Ql (U) 30 mg/dl Negative [facility] Work Phone: RBC morphologyon 10-20-2021 RBC morphology finding Nom (Bld) N CHROM NORMAL NORM C&C [facility] Work Phone: Serum or plasma calcium siobhan urement (mass/volume)on 10-20-2021 Calcium [Mass/Vol] 9.1 mg/dL 8.5-10.1 [facility] Work Phone: Serum or plasma creatinine m easurement (mass/volume)on 10-20-2021 Creatinine [Mass/Vol] 1.07 mg/dL 0.70-1.30 [facility] Work Phone: Comment on above: The validity of the calculated GFR & GFRAA in patients over 70 years has not been determined. Clinical correlation is essential. Serum or plasma urea nitroge n measurement (mass/volume)on 10-20-2021 Urea nitrogen [Mass/Vol] 16 mg/dL 7-18 [facility] Work Phone: Squamous epithelial cells de tection in urine sediment by light microscopyon 10-20-2021 Epithelial cells.squamous LM Ql (Urine sed) 0 SEEN /hpf 0-5 [facility] Work Phone: Thin prep Papanicolaou smear with manual screeningon 10-20-2021 Thin prep Papanicolaou smear with manual screening 9 5-15 [facility] Work Phone: Urine blood detectionon 09-30 RBC Ql (U) 250 /ul Negative [facility] Work Phone: RBC Ql (U) 0 SEEN /hpf 0-5 [facility] Work Phone: Urine clarityon 10-20-2021 Clarity (U) Sl. Cloudy Clear [facility] Work Phone: Urine color determinationon 10-20-2021 Color (U) Kristina Yellow [facility] Work Phone: Urine glucose detectionon Glucose Ql (U) Normal mg/dl Normal [facility] Work Phone: Urine leukocyte esterase det ection by dipstickon 10-20-2021 Leukocyte esterase Test strip Ql (U) 25 /ul Negative [facility] Work Phone: Urine pHon 10-20-2021 pH (U) 5.0 [pH] 5.0 - 8.0 [facility] Work Phone: Urine sediment bacteria coun t by microscopy (number/high power field)on 10-20-2021 Bacteria LM.HPF (Urine sed) [#/Area] 1 /[HPF] None Seen [facility] Work Phone: Urine specific gravity measu rementon 10-20-2021 Specific gravity (U) [Rel density] 1.025 1.002-1.030 [facility] Work Phone: Urobilinogen Auto test strip Ql (U)on 10-20-2021 Urobilinogen Ql (U) 1 mg/dl Normal [facility] Work Phone: CNOVon 09-29-2021 CNOV Office Visit (INTMWS) KEL DILLARD ([id number]) 1940 M Date Time Provider Department 09/29/21 4:40 PM NICOLAS KAUR During your visit today, we recorded the following information about you: Temperature Pulse Respiration [facility] Telephone (INTCode RebelWS) KEL DILLARD ([id number]) 1940 M Date Time Provider Department 07/15/21 NICOLAS KAUR During your visit today, we recorded the following information about you: Karen Matias RN 07/15/2021 1:40 PM Signed Yesenia, Admissions staff member at [facility] calling to state patient's son Jhonny has reached out to them to request patient possibly be admitted into their memory care unit due to cognition concerns. Yesenia is requesting notes from patient's last OV be faxed to them at [phone]. This nurse contacted son Jhonny to verify the request and he confirmed it was ok to share requested information. Information faxed as requested. Karen Matias RN Allergies As of Date: 07/15/2021 (No Known Allergies) Date Reviewed: 05/12/2021 Reviewed by: Dori Martines APRN.[employer] - Fully Assessed Reason for Visit: fax [...] Status:Closed by KAREN MATIAS on 07/15/21 Normal [facility] Culture, urine Bacteria identified Cx Nom (U) Positive [facility] Work Phone: Vital Signs Date Time Vital Sign Value Performing Clinician Faci lity 09-15-2024 13:51-0400 Body height 175.[address] David Miramontes MD Work Phone: [facility] 09-15-2024 12:10-0400 Body height 175.[address] David Miramontes MD Work Phone: [facility] 09-13-2024 11:44-0400 Body height 175.[address] David Miramontes MD Work Phone: [facility] 12-02-2022 10:40-0400 Body height 175.[address] Nicolas Kaur Work Phone: [facility] 04-02-2022 14:41-0500 Body height 175.[address] Nicolas Kaur Work Phone: [facility] 10-22-2021 08:30-0400 Body temperature 98.2 [degF] Dr. Nicolas Kaur Work Phone: [facility] Work Phone: 10-22-2021 08:30-0400 Diastolic blood pressure 71 mm[Hg] Dr. Nicolas Kaur Work Phone: [facility] Work Phone: 10-22-2021 08:30-0400 Heart rate 59 /min Dr. Nicolas Kaur Work Phone: [facility] Work Phone: 10-22-2021 08:30-0400 Respiratory rate 16 /min Dr. Nicolas Kaur Work Phone: [facility] Work Phone: 10-22-2021 08:30-0400 SaO2% (BldA) [Mass fraction] 95 % Dr. Nicolas Kaur Work Phone: [facility] Work Phone: 10-22-2021 08:30-0400 Systolic blood pressure 125 mm[Hg] Dr. Nicolas Kaur Work Phone: [facility] Work Phone: 10-21-2021 01:00-0400 Body height 175.[address] Nicolas Kaur Work Phone: [facility] Work Phone: 10-21-2021 01:00-0400 Body mass index (BMI) [Ratio] 28.1 kg/m2 Dr. Nicolas Kaur Work Phone: [facility] Work Phone: 10-21-2021 01:00-0400 Body weight 86.[address] Nicolas Kaur Work Phone: [facility] Work Phone: 10-21-2021 00:46-0400 Body temperature 97.9 [degF] Dr. Nicolas Kaur Work Phone: [facility] Work Phone: 10-21-2021 00:46-0400 Diastolic blood pressure 74 mm[Hg] Dr. Nicolas Kaur Work Phone: [facility] Work Phone: 10-21-2021 00:46-0400 Heart rate 60 /min Dr. Nicolas Karu Work Phone: [facility] Work Phone: 10-21-2021 00:46-0400 Respiratory rate 25 /min Dr. Nicolas Kaur Work Phone: [facility] Work Phone: 10-21-2021 00:46-0400 SaO2% (BldA) [Mass fraction] 94 % Dr. Nicolas Kaur Work Phone: [facility] Work Phone: 10-21-2021 00:46-0400 Systolic blood pressure 115 mm[Hg] Dr. Nicolas Kaur Work Phone: [facility] Work Phone: 10-20-2021 20:20-0400 Body height 175.[address] Nicolas Kaur Work Phone: [facility] Work Phone: 10-20-2021 20:20-0400 Body mass index (BMI) [Ratio] 28.6 kg/m2 Dr. Nicolas Kaur Work Phone: [facility] Work Phone: 10-20-2021 20:20-0400 Body weight 87.[address] Nicolas Kaur Work Phone: [facility] Work Phone: 09-29-2021 16:45-0400 Body height 165.7 cm Nicolas Kaur MD Work Phone: [facility] 09-29-2021 16:45-0400 Body temperature 97.3 [degF] Nicolas Kaur MD Work Phone: [facility] 09-29-2021 16:45-0400 Body weight 87.09 kg Nicolas Kaur MD Work Phone: [facility] 09-29-2021 16:45-0400 Diastolic blood pressure 76 mm[Hg] Nicolas Kaur MD Work Phone: [facility] 09-29-2021 16:45-0400 Heart rate 60 /min Nicolas Kaur MD Work Phone: [facility] 09-29-2021 16:45-0400 Respiratory rate 16 /min Nicolas Kaur MD Work Phone: [facility] 09-29-2021 16:45-0400 Systolic blood pressure 130 mm[Hg] Nicolas Kaur MD Work Phone: [facility] Encounters Encounter Date Encounter Type Care Provider Facility Start: 09-07-2024 ambulatory Efewongbe Oleghe Facili ty:[facility] Start: 09-07-2024 Registered Referred David Pickett Start: 08-31-2024 ambulatory Efewongbe Oleghe Facili ty:[facility] Start: 08-31-2024 Registered Referred David Pickett Start: 08-25-2024 End: 08-25-[address] David Miramontes MD Work Phone: [facility] Start: 08-25-2024 End: 08-25-2024 Patient encounter procedure Marimar VASQUES -[facility] Work Phone: Start: 08-22-2024 ambulatory Efewongbe Oleghe Facili ty:[facility] Start: 08-22-2024 Registered Referred David Pickett Start: 08-21-2024 End: 08-21-[address] David Miramontes MD Work Phone: [facility] Start: 08-21-2024 End: 08-21-2024 Patient encounter procedure Marimar JONC -[facility] Work Phone: Start: 08-21-2024 End: 08-21-[address] David Miramontes MD Work Phone: [facility] Start: 08-21-2024 End: 08-21-[address] Edson Quinn MD -[facility] Work Phone: Start: 08-15-2024 End: 08-15-[address] David Miramontes MD Work Phone: [facility] Start: 08-15-2024 End: 08-15-2024 Patient encounter procedure Marimar Zimmer [facility] Work Phone: Start: 08-02-2024 ambulatory Efewongbe Oleghe Facili ty:[facility] Start: 08-02-2024 [facility] Start: 08-01-2024 ambulatory Efewongbe Oleghe Facili ty:[facility] Start: 08-01-2024 [facility] Start: 07-21-2024 ambulatory Efewongbe Oleghe Facili ty:[facility] Start: 07-21-2024 Registered Referred David AdamKrystle Piyush Start: 07-20-2024 End: 07-20-[address] David Miramontes MD Work Phone: [facility] Start: 07-20-2024 End: 07-20-2024 Patient encounter procedure Marimar Zimmer [facility] Work Phone: Start: 07-18-2024 End: 07-18-[address] David Miramontes MD Work Phone: [facility] Start: 07-18-2024 End: 07-18-[address] David Miramontes MD [facility] Work Phone: Start: 07-17-2024 End: 07-17-2024 Follow-up encounter Diana Andres Postlethwait SWIMMING PROFESSOR.[employer] Work Phone: [facility] Comment on above: Results Start: 07-14-2024 End: 07-14-2024 Office outpatient new 30 minutes Diana Andres Postlethwait SWIMMING PROFESSOR.[employer] Work Phone: [facility] Comment on above: Gross hematuria (Lise wallace Dx) Start: 07-14-2024 End: 07-14-2024 ambulatory DIANA ANDRES POSTLETHWAIT Facility:[facility] Start: 06-23-2024 End: 06-23-[address] David Miramontes MD Work Phone: [facility] Work Phone: Start: 06-23-2024 End: 06-23-2024 Departed Referred David Pickett Start: 06-23-2024 End: 06-23-2024 ambulatory David GARCIA Facility:[facility] Start: 06-05-2024 End: 06-05-[address] David Miramontes MD Work Phone: [facility] Work Phone: Start: 06-05-2024 End: 06-05-2024 Departed Referred David Pickett Start: 06-05-2024 Registered Referred David Pickett Start: 06-05-2024 End: 06-05-2024 ambulatory David GARCIA Facility:[facility] Start: 05-30-2024 ambulatory David GARCIA Fa cility:[facility] Start: 05-30-2024 Non-patient / Non-visit Dr. Josiah Klein MD -[facility] Start: 05-30-2024 End: 05-30-[address] David Miramontes MD -[facility] Work Phone: Start: 05-30-2024 End: 05-30-2024 ambulatory Efewongbe Oleghe Facility:[facility] Start: 05-30-2024 End: 05-30-2024 Patient encounter procedure Marimar VASQUES -[facility] Work Phone: Start: 05-30-2024 End: 05-30-[address] David Miramontes MD Work Phone: [facility] Work Phone: Start: 05-30-2024 End: 05-30-2024 Departed Referred David Pickett Start: 05-30-2024 Registered Referred David Pickett Start: 05-30-2024 End: 05-30-2024 [facility] Start: 05-23-2024 End: 05-23-2024 ambulatory Efewongbe Oleghe Facility:[facility] Start: 05-23-2024 End: 05-23-[address] David Miramontes MD -[facility] Work Phone: Start: 05-22-2024 End: 05-22-[address] David Miramontes MD Work Phone: [facility] Work Phone: Start: 05-22-2024 End: 05-22-2024 Departed Referred David Pickett Start: 05-22-2024 Registered Referred David Pickett Start: 05-22-2024 End: 05-22-[address] Edson Quinn MD -[facility] Work Phone: Start: 05-22-2024 End: 05-22-2024 ambulatory Efewongbe Oleghe Facility:[facility] Start: 05-18-2024 End: 05-18-2024 ambulatory Efewongbe Oleghe Facility:[facility] Start: 05-18-2024 End: 05-18-2024 Patient encounter procedure [facility] Work Phone: Start: 05-13-2024 End: 05-13-2024 ambulatory Edson Quinn Facility:[facility] Start: 05-13-2024 End: 05-13-[address] Edson Quinn MD -[facility] Work Phone: Start: 05-11-2024 End: 05-11-2024 ambulatory Efewongbe Oleghe Facility:[facility] Start: 05-11-2024 End: 05-11-2024 Patient encounter procedure [facility] Work Phone: Start: 05-01-2024 End: 05-01-2024 ambulatory Efewongbe Oleghe Facility:[facility] Start: 05-01-2024 End: 05-01-2024 Patient encounter procedure [facility] Work Phone: Start: 04-19-2024 End: 04-19-2024 ambulatory Efewongbe Oleghe Facility:[facility] Start: 04-19-2024 End: 04-19-2024 Patient encounter procedure [facility] Work Phone: Start: 04-17-2024 ambulatory Efewongbe Charliee [facility] Fa cility:[facility] Start: 04-17-2024 Registered Referred [place]Krystle [place] Start: 04-13-2024 ambulatory Efewongbe Oleghe O[facility] Fa cility:[facility] Start: 04-13-2024 Registered Referred David AdamKrystle [place] Start: 04-11-2024 End: 04-11-2024 ambulatory Efewongbe Oleghe Facility:[facility] Start: 04-11-2024 End: 04-11-[address] [facility] Work Phone: Start: 04-07-2024 ambulatory Efewongbe Oleghe O[facility] Fa cility:[facility] Start: 04-07-[address] [facility] Start: 04-04-2024 ambulatory Efewongbe Oleghe Facili ty:[facility] Start: 04-04-2024 Registered [facility] Start: 03-13-2024 End: 03-13-2024 ambulatory Efewongbe Oleghe [facility] Start: 03-13-2024 End: 03-13-2024 Patient encounter procedure Marimar VASQUES -[facility] Work Phone: Start: 03-02-2024 End: 03-02-2024 ambulatory Efewongbe Oleghe Facility:[facility] Start: 03-02-2024 End: 03-02-2024 Patient encounter procedure Isidro HOOD -[facility] Work Phone: Start: 02-15-2024 End: 02-15-2024 ambulatory Efewongbe Oleghe [facility] Start: 02-15-2024 End: 02-15-[address] aDvid Miramontes MD -[facility] Work Phone: Start: 02-14-2024 End: 02-14-2024 ambulatory Efewongbe Oleghe Facility:[facility] Start: 02-14-2024 End: 02-14-[address] Edson Quinn MD -[facility] Work Phone: Start: 02-03-2024 ambulatory Efewongbe Oleghe Facili ty:[facility] Start: 01-12-2024 End: 01-12-2024 ambulatory Efewongbe Oleghe [facility] Start: 01-04-2024 ambulatory Efewongbe Oleghe Facili ty:[facility] Start: 12-28-2023 End: 12-28-2023 ambulatory Efewongbe Oleghe [facility] Start: 12-07-2023 End: 12-07-2023 ambulatory Efewongbe Oleghe Facility:[facility] Start: 11-15-2023 End: 11-15-2023 ambulatory Efewongbe Oleghe Facility:[facility] Start: 11-08-2023 End: 11-08-2023 ambulatory Efewongbe Oleghe Facility:[facility] Start: 10-27-2023 End: 10-27-2023 ambulatory Efewongbe Oleghe Facility:[facility] Start: 10-05-2023 End: 10-05-2023 ambulatory Efewongbe Oleghe [facility] Start: 10-05-2023 End: 10-05-2023 [facility] Start: 09-27-2023 End: 09-27-2023 [facility] Start: 09-27-2023 End: 09-27-2023 ambulatory Efewwinchesterbe Olee Facility:[facility] Start: 04-06-2023 End: 04-06-[address] Nicolas Kaur Work Phone: [facility] Work Phone: Start: 04-06-2023 End: 04-06-[address] Nicolas Kaur Work Phone: [facility] Start: 02-02-2023 End: 02-02-[address] Nciolas Kaur Work Phone: [facility] Work Phone: Start: 01-15-2023 End: 01-15-[address] Nicolas Kaur Work Phone: [facility] Work Phone: Start: 12-30-2022 End: 12-30-[address] Nicolas Kaur Work Phone: [facility] Work Phone: Start: 12-30-2022 End: 12-30-[address] Nicolas Kaur Work Phone: [facility] Start: 11-23-2022 End: 11-23-[address] Nicolas Kaur Work Phone: [facility] Work Phone: Start: 11-17-2022 End: 11-17-[address] Nicolas Kaur Work Phone: [facility] Work Phone: Start: 10-06-2022 End: 10-06-[address] Nicolas Kaur Work Phone: [facility] Work Phone: Start: 09-29-2022 End: 09-29-[address] Nicolas Kaur Work Phone: [facility] Start: 09-23-2022 End: 09-23-[address] Nicolas Kaur Work Phone: [facility] Work Phone: Start: 06-29-2022 End: 06-29-[address] Nicolas Kaur Work Phone: [facility] Work Phone: Start: 06-29-2022 End: 06-29-[address] Nicolas Kaur Work Phone: [facility] Start: 06-23-2022 End: 06-23-[address] Nicolas Kaur Work Phone: [facility] Start: 06-05-2022 ambulatory Yoli johnson [facility] Comment on above: Population Health Na vigation Outreach ([facility]) Start: 05-18-2022 End: 05-18-[address] Nicolas Kaur Work Phone: [facility] Start: 04-14-2022 End: 04-14-[address] Nicolas Kaur Work Phone: [facility] Start: 04-01-2022 End: 04-01-[address] Nicolas Kaur Work Phone: [facility] Work Phone: Start: 04-01-2022 End: 04-01-[address] Nicolas Kaur Work Phone: [facility] Start: 03-16-2022 End: 03-16-[address] Nicolas Kaur Work Phone: [facility] Start: 02-24-2022 End: 02-24-[address] Nicolas Kaur Work Phone: [facility] Start: 01-07-2022 End: 01-07-[address] [facility] Start: 01-05-2022 End: 01-05-[address] Nicolas Kaur Work Phone: [facility] Start: 12-24-2021 End: 12-24-[address] Nicolas Kaur Work Phone: [facility] Work Phone: Start: 12-24-2021 End: 12-24-[address] Nicolas Kaur Work Phone: [facility] Start: 12-24-[address] Nicolas Kaur Work Phone: [facility] Start: 12-15-2021 End: 12-15-[address] Nicolas Kaur Work Phone: [facility] Start: 12-10-2021 End: 12-10-[address] Nicolas Kaur Work Phone: [facility] Work Phone: Start: 12-10-2021 End: 12-10-[address] Nicolas Kaur Work Phone: [facility] Start: 12-10-[address] [facility] Kaur [facility] Phone[facility] Start: 12-09-2021 Telephone encounter Nicolas gutierrez MD Work Phone: [facility] [place] Comment on above: form dropping off Start: 11-26-2021 End: 11-26-[address] Nicolas Kaur Work Phone: [facility] Work Phone: Start: 11-26-2021 End: 11-26-[address] Nicolas Kaur Work Phone: [facility] Start: 11-12-[address] Nicolas Kaur Work Phone: [facility] Start: 10-29-[address] Nicolas Kaur Work Phone: [facility] Start: 10-23-2021 Telephone encounter Nicolas gutierrez MD Work Phone: [facility] [place] Comment on above: Patient Update Start: 10-22-2021 Non-patient / Non-visit Dr. Nicolas Kaur Work Phone: [facility] Start: 10-21-2021 Non-patient / Non-visit Dr. Nicolas aKur Work Phone: [facility] Start: 10-20-2021 Non-patient / Non-visit Dr. Nicolas Kaur Work Phone: [facility] [facility] Start: 10-20-2021 End: 10-22-2021 Evaluation and management of inpatient Dr. Nicolas Kaur Work Phone: [facility] Start: 10-20-2021 End: 10-22-[address] 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 [...] Dr. Nicolas Kaur Work Phone: Start: 09-29-2021 [employer] COVI D-19 VACCINE, AGE 12+ YR (LANGE TOP) Nicolas Kaur MD Work Phone: Urine culture Dr. Nicolas Farley Work Phone: Viral antigen assay Dr. Filiberto Kaur Work Phone: Plan of Treatment Date Care Activity Detail Author Start: 10-30-2024 Influenza vaccination Influenz a Vaccine (Season Ended) [facility] Start: 04-22-2024 DIABETES SCREEN DIABETES SCREEN [facility] Start: 04-22-2024 Diabetes Screening Diabetes Screenin g [facility] Start: 03-01-2024 Advance Directive Discussion Advance Directive Discussion [facility] Start: 10-31-2023 Covid-19 Vaccine () Covid-19 Vaccine ( season) [facility] Start: 10-30-2022 Influenza vaccination INFLUENZ A (Season Ended) [facility] Start: 05-12-2022 SHINGRIX VACCINE (2 of 3) DUMAS GRIX VACCINE (2 of 3) [facility] Comment on above: Postponed from 07/18 (Declined at this time) Start: 03-01-2022 ADVANCE DIRECTIVE DISCUSSION ADVANCE DIRECTIVE DISCUSSION [facility] Start: 11-24-2021 COVID-19 VACCINE (5 - Booster for Pfizer series) COVID-19 VACCINE (5 - Booster for Pfizer series) [facility] Start: 10-30-2021 Influenza vaccination INFLUENZA (#1) [facility] Start: 10-22-2021 Patient discharge [facility] Work Phone: Start: 10-21-2021 Following clinical p athway protocol [facility] Work Phone: Start: 10-21-2021 Assessment of risk o f venous thromboembolism [facility] Work Phone: Start: 10-21-2021 Insertion of cathete r into peripheral vein [facility] Work Phone: Start: 10-21-2021 Oxygen therapy [facility] Work Phone: Start: 10-21-2021 Providing care accor ding to standard [facility] Work Phone: Start: 10-21-2021 Provision of activit y privileges [facility] Work Phone: Start: 10-21-2021 Referral to occupati onal therapist [facility] Work Phone: Start: 10-21-2021 Referral to service [facility] Work Phone: Start: 10-21-2021 [facility] Work Phone: Start: 10-21-[address] [facility] Work Phone: Start: 10-21-2021 CT angiography of he ad and neck CTA Head AND Neck W/ Contrast [facility] Work Phone: Start: 10-21-2021 CTA Head vessels and Neck vessels W contrast IV [facility] Work Phone: Start: 10-20-2021 [facility] Work Phone: Start: 10-20-2021 Admission procedure [facility] Work Phone: Start: 09-11-2021 COVID-19 VACCINE (4 - Booster for Pfizer series) COVID-19 VACCINE (4 - Booster for Pfizer series) [facility] Start: 08-23-2021 Urine microalbumin profile [facility] Comment on above: Postponed from 07/15 (Declined at this time) Start: 2014 RSV Vaccine (1 - 1-d ose 75+ series) RSV Vaccine (1 - 1-dose 75+ series) [facility] Start: 07-18-2013 SHINGRIX VACCINE (2 of 3) DUMAS GRIX VACCINE (2 of 3) [facility] Start: 07-15-2010 Urine microalbumin profile [facility] CYTOLOGY NON-CULLET CRUSHER CYTOLOGY NON-GY N Lab Routine Gross hematuria Ordered: 07/14/2024 [facility] Work Phone: Comment on above: Ordered: 07/14/2024 Patient Education ED Fall with Uncertain Cause [facility] Work Phone: Patient referral [facility] Work Phone: [facility] Immunizations Immunization Date Immunization Notes Care Provider Fa cility 09-29-2021 COVID-19 vaccine, ag e 12+ yr (PFIZER-[facility]ION[facility]oomSystems - [facility]) Nicolas Kaur MD Work Phone: [facility] Work Phone: 05-12-2021 COVID-19 vaccine, ag e 12+ yr (PFIZER-BIONTECH - LANGE TOP) Nicolas Kaur MD Work Phone: [facility] 03-31-2021 influenza, high-dose , quadrivalent vaccine (FLUZONE HIGH DOSE QUADRIVALENT) Nicolas Kaur MD Work Phone: [facility] Work Phone: 03-31-2021 influenza virus vaccine, unspecified formulation Diana Arango APRN.[employer] Work Phone: [facility] 06-17-2020 COVID-19 vaccine, ag e 12+ yr (PFIZER-BIONTECH - PURPLE TOP) Nicolas Kaur MD Work Phone: [facility] Work Phone: 05-27-2020 COVID-19 vaccine, ag e 12+ yr (PFIZER-BIONTECH - PURPLE TOP) Nicolas Kaur MD Work Phone: [facility] Work Phone: 04-22-2020 influenza, high-dose , quadrivalent vaccine (FLUZONE HIGH DOSE QUADRIVALENT) Nicolas Kaur MD Work Phone: [facility] Work Phone: 01-19-2019 influenza, high dose seasonal, preservative-free Nicolas Kaur MD Work Phone: [facility] 02-03-2018 influenza, high dose seasonal, preservative-free Nicolas Kaur MD Work Phone: [facility] 01-18-2017 influenza, high dose seasonal, preservative-free Nicolas Kaur MD Work Phone: [facility] 12-27-2015 influenza, high dose seasonal, preservative-free Nicolas Kaur MD Work Phone: [facility] 12-26-2014 influenza, high dose seasonal, preservative-free Nicolas Kaur MD Work Phone: [facility] 06-26-2014 pneumococcal conjuga te vaccine, 13 valent Nicolas Kaur MD Work Phone: [facility] 12-28-2013 influenza, seasonal, injectable Nicolas Kaur MD Work Phone: [facility] 05-23-2013 zoster vaccine, live Nicolas Kaur MD Work Phone: [facility] 07-14-2010 tetanus and diphther ia toxoids, adsorbed, preservative free, for adult use (2 Lf of tetanus toxoid and 2 Lf of diphtheria toxoid) Nicolas Kaur MD Work Phone: [facility] Work Phone: 01-13-2006 pneumococcal polysaccharide vaccine, 23 valent Nicolas Kaur MD Work Phone: [facility] Payers Date Payer Category Payer Self-pay [id number] 2013 Private Health Insurance [facility] AARP SUPPLEMENT [id number] 2013-Present [phone] [address] [place] [address] Indemnity [id number] 2013 Private Health Insurance [id number] 2013 Unknown [id number] 2004 Medicare MEDICARE MEDICAR E A AND B [id number] 2004-Present [phone] [address] [address] [place] [address] Medicare [id number] 2004 Medicare [id number] 2004 Medicare [id number] Private Health Insurance [facility] [id number] Unknown [id number] 2.16.840.1.458524.3.579.2 .462 Unknown [id number] 2.16.840.1.386532.3.579.2 .462 Unknown [id number] 2.16.840.1.458136.3.579.2 .462 Unknown [id number] 2.16.840.1.610318.3.579.2 .462 Unknown [id number] 2.16.840.1.982949.3.579.2 .462 Unknown [id number] 2.16.840.1.251079.3.579.2 .462 Unknown [id number] 2.16.840.1.478390.3.579.2 .462 Unknown [id number] 2.16.840.1.497893.3.579.2 .462 Unknown [id number] 2.16.840.1.880729.3.579.2 .462 Unknown [id number] 2.16.840.1.802490.3.579.2 .462 Unknown [id number] 2.16.840.1.979093.3.579.2 .462 Unknown [id number] 2.16.840.1.867498.3.579.2 .462 Unknown [id number] 2.16.840.1.792325.3.579.2 .462 Unknown [id number] 2.16.840.1.102174.3.579.2 .462 Unknown [id number] 2.16.840.1.765408.3.579.2 .462 Unknown [id number] 2.16.840.1.252709.3.579.2 .462 Unknown [id number] 2.16.840.1.161984.3.579.2 .462 Unknown [id number] 2.16.840.1.723773.3.579.2 .462 Unknown [id number] 2.16.840.1.525717.3.579.2 .462 Unknown [id number] 2.16.840.1.244066.3.579.2 .462 Unknown [id number] 2.16.840.1.555523.3.579.2 .462 Unknown [id number] 2..840.1.825043.3.579.2 .462 Unknown [id number] 2..840.1.397294.3.579.2 .462 Unknown [id number] 2.840.1.744482.3.579.2 .462 Unknown [id number] 2.840.1.880825.3.579.2 .462 Unknown [id number] 2.840.1.935327.3.579.2 .462 Unknown [id number] 2.840.1.372993.3.579.2 .462 Unknown [id number] 2.840.1.613322.3.579.2 .462 Unknown [id number] 2.840.1.696630.3.579.2 .462 Unknown [id number] 2.16.840.1.790623.3.579.2 .462 Unknown [id number] 2.840.1.385535.3.579.2 .462 Unknown [id number] 2.16.840.1.979572.3.579.2 .462 Unknown [id number] 2.16840.1.228969.3.579.2 .462 Unknown [id number] 2.16840.1.740822.3.579.2 .462 Unknown [id number] 2.16.840.1.411680.3.579.2 .462 Unknown [id number] 2.16.840.1.089535.3.579.2 .462 Unknown [id number] 2.16.840.1.615946.3.579.2 .462 Unknown [id number] 2.16.840.1.933379.3.579.2 .462 Unknown [id number] 2.16840.1.513758.3.579.2 .462 Unknown [id number] 2.16.840.1.232299.3.579.2 .462 Unknown [id number] 2.16840.1.835336.3.579.2 .462 Unknown [id number] 2.840.1.455556.3.579.2 .462 Unknown [id number] 2.840.1.029743.3.579.2 .462 Unknown [id number] 2.840.1.027336.3.579.2 .462 Unknown [id number] 2.840.1.218758.3.579.2 .462 Unknown [id number] 2.16840.1.554145.3.579.2 .462 Unknown [id number] 2.840.1.743860.3.579.2 .462 Unknown [id number] 2.840.1.048046.3.579.2 .462 Unknown [id number] 2.840.1.447835.3.579.2 .462 Unknown [id number] 2.840.1.926253.3.579.2 .462 Unknown [id number] 2.840.1.441196.3.579.2 .462 Social History Date Type Detail Facility Start: 04-22-2012 End: 09-15-2024 Tobacco smoking status DEIS Ex-smoker [facility] Start: [birth year]-01-1949 End: 03-01-1959 History of tobacco use Current smoker [facility] Start: [birth year]-01-1949 End: 03-01-1959 History of tobacco use Cigarette Smoker [facility] Start: 05-12-2021 End: 07-14-2024 Alcohol intake Current non-drinker of alcohol (finding) [facility] Start: 1940 Sex Assigned At Not on file [facility] Start: 09-19-2021 End: 09-29-2021 Exposure to SARS-CoV-2 (event) Not sure [facility] Work Phone: Start: 10-21-2021 End: 12-02-2022 Tobacco smoking status DEIS Unknown if ever smoked [facility] Start: 1940 Sex Assigned At Male [facility] Start: 04-22-2012 End: 07-14-2024 Cigarettes smoked current (pack per day) - Reported 1 [facility] Start: 04-22-2012 Tobacco use and exposure Smokeless tobacco non-user [facility] Work Phone: Start: 06-05-2024 End: 06-21-2024 Sex Male (finding) [facility] Start: 02-03-2018 End: 07-14-2024 Tobacco use panel [facility] Adult Depression Screening Assessment 0 [facility] Goals Date Patient Goal Desired Activity /State Functional Status Date Assessment Result Facility [facility]-22[facility]: 06-26-2014 Are you deaf, or do you have serious difficulty hearing No 06/26/2014 10:08 AM Anjelica Esparza Cma No [facility] 06-26-2014 Are you blind, or do you have serious difficulty seeing, even when wearing glasses No 06/26/2014 10:08 AM Anjelica Esparza Cma No [facility] 06-26-2014 Do you have serious difficulty walking or climbing stairs No 06/26/2014 10:08 AM Anjelica Esparza Cma No [facility] 06-26-2014 Do you have difficul ty dressing or bathing No 06/26/2014 10:08 AM Anjelica Esparza Cma No [facility] 06-26-2014 Because of a physica l, mental, or emotional condition, do you have difficulty doing errands alone such as visiting a physician's office or shopping No 06/26/2014 10:08 AM EDT Chris Anjelica Moore No [facility] Mental Status Date Assessment Result Facility 10-22-2021 Cognitive function Voice/Name [facility] Work Phone: 10-20-2021 Cognitive function Appropriate;Cooperativ e [facility] Work Phone: 06-26-2014 Because of a physica l, mental, or emotional condition, do you have serious difficulty concentrating, remembering, or making decisions No 06/26/2014 10:08 AM EDT Chris MooreAnjelica [facility] Clinical Notes 09-16-2018 to 07-17-2024 Telephone [...] has no further questions. Stefany Mcclure RN [facility] Work Phone: 07-17-2024 Miscellaneous Notes Spoke [...] if he wishes. documented in this encounter [facility] 07-17-2024 Telephone encounter Note ----- Message from Diana Arango APRN.CNP sent at 07/17/2024 11:12 AM EDT ----- Please notify patient/patient's son that patient's cytology came back negative for high-grade urothelial carcinoma. This is great news! Given his mentation and mobility -- we could hold off on CT/cysto if he wishes. [facility] 07-14-2024 History of Present illness Narrative Images from the original note were not included. [facility] [place] [facility] 07/14/2024 8:51 AM [...] (no units) Date Value 08/12/2018 Negative Specific [place], Ur (no units) Date Value 08/12/2018 1.018 [...] intervention based on that result. 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 Will make treatment plan decision from there. Follow-up as needed. Diana Arango APRN.CNP documented in this encounter [facility] 07-14-2024 Note HNO ID: [id number] Author: DIANA ARANGO APRN.CNP Service: ? Author Type: Nurse Practitioner Type: Progress Notes Filed: 07/14/2024 09:11 Note Text: [facility] [place] [place] [facility] NEW PATIENT UROLOGY VISIT 07/14/2024 8:51 AM [...] at baseline. Psychiatric: (more content not included)... [facility] 06-05-2022 Note HNO ID: [id number] Author: Yoli Kong Service: ? Author Type: ? Type: Progress Notes Filed: 06/05/2022 2:00 PM Note Text: POPULATION HEALTH NAVIGATION OUTREACH Action/ 1st attempt: Spoke to patient's daughter. Patient now resides at [facility] and receives medical care there. Patient [...] Yoli Kong June 05, 2022 1:58 PM [facility] 06-05-2022 Note Patient Outreach (NE TNAV) ---- KEL DILLARD ([id number]) 1940 M Date Time Provider Department 06/05/22 YOLI KONG During your visit today, we recorded the following information about you: Yoli Kong 06/05/2022 2:00 PM Signed POPULATION HEALTH NAVIGATION OUTREACH Action/ attempt: Spoke to patient's daughter. Patient now resides at [facility] and receives medical care there. Patient [...] Encounter Status:Closed by YOLI KONG on 06/05/22 [facility] 06-05-2022 History of Present illness Narrative POPULATION HEALTH NAVIGATION OUTREACH Action/ 1st attempt: Spoke to patient's daughter. Patient now resides at [facility] and receives medical care there. Patient [...] 2022 1:58 PM documented in this encounter [facility] 12-11-2021 Miscellaneous Notes Forms pts son brought in have been sent to medical records. Pts son notified. He can pick them up there. Son (Jhonny) calls in and provider message reviewed. Son asking if form brought in can be picked back up in Medical Records. Please contact Jhonny at [phone]. Preethi Delgadillo RN I have not seen him since hospital stay and he is now under the [place] attending physician's care. It is more appropriate for the [place] attending physician to do another form. More statements need corrected/updated Form to pcp to review. Patient son Jhonny willis said PCP completed expert evaluation form on 09/29 for guardianship and marketing support coordinator said question number 11 needs revised. Son Jhonny said 2 weeks after form was done father had fall and was taken to [facility] then sent to [facility] for rehab. Now father is in memory care unit, his dementia is at 6 out of 7. Son is going to drop off new form to be competed, since father can not care for himself or do anything for himself. Please advise documented in this encounter [facility] 10-23-2021 Miscellaneous Notes Per [facility] discharge info pt was discharged to [facility] 10/22/21. documented in this encounter [facility] 09-29-2021 Note HNO ID: [id number] Author: Nicolas Kaur MD Service: ? Author Type: Physician Type: Progress Notes Filed: 09/29/2021 6:08 PM Note Text: This note was created using [employer]riter. Subjective Kel Dillard is a 81 year old male. He was here with his son. He was home bound due to memory loss and cognitive deficits. He gets lost if he wandered outside. Son was here with form requesting guardianship. This was part of POA he was establishing. They were exploring residential placement in anticipation of need, but Kel [...] willingness to follow recommendations. Nicolas Kaur MD [facility] 09-29-2021 Note HNO ID: [id number] Author: Nicolas Kaur MD Service: ? Author [...] current specialists seen: Pulmonary- Dr. Valle Cardiology- [facility] Executive Compensation Analyst- [place] End of Live Planning discussed including [...] and Tdap at pharmacy Nicolas Kaur MD [facility] 09-29-2021 History of Present illness Narrative This note was created using [employer]riter. Subjective Kel Dillard is a 81 year old male. He was here with his son. He was home bound due to memory loss and cognitive deficits. He gets lost if he wandered outside. Son was here with form requesting guardianship. This was part of POA he was establishing. They were exploring residential placement in anticipation of need, but Kel [...] current specialists seen: Pulmonary- Dr. Valle Cardiology- [facility] Executive Compensation Analyst- [facility] End of Live Planning discussed including patients [...] Nicolas Kaur MD documented in this encounter [facility] 07-15-2021 Miscellaneous Notes Yesenia, Admissions staff member at [facility] calling to state patient's son Jhonny has reached out to them to request patient possibly be admitted into their memory care unit due to cognition concerns. Yesenia is requesting notes from patient's last OV be faxed to them at [phone]. This nurse contacted son Jhonny to verify the request and he confirmed it was ok to share requested information. Information faxed as requested. Karen Matias RN documented in this encounter [facility] 09-16-2018 History of Past i llness [...] of this encounter (statuses as of 07/15/2021) [facility] History of Past illness Narrative* Problem [...] of this encounter (statuses as of 09/29/2021) [facility] History of Past illness Narrative* Problem [...] of this encounter (statuses as of 10/23/2021) [facility] History of Past illness Narrative* Problem [...] of this encounter (statuses as of 12/11/2021) [facility] History of Past illness Narrative* Problem [...] of this encounter (statuses as of 06/05/2022) [facility] Diagnosis Medicare annual wellness visit, subsequent- Primary Routine general medical examination at a health care facility Cognitive impairment Unspecified persistent mental disorders due to conditions classified elsewhere Essential tremor Essential and other specified forms of tremor Essential hypertension, benign Need for COVID-19 vaccine 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) [facility] Onset Date Resolution Status Adult failure to thrive acut e Chronic anticoagulation acut e Fall acute History of atrial fibrillation acute [facility] Work Phone: Evaluation noteNo assessment information available [facility] Work Phone: Evaluation note* Diagnosis Gross hematuria- Primary documented in this encounter [facility] for referral (narrative)No reason [facility]: Advance Directives No Advanced Directives Records FoundDocuments on File Type Date Recorded Patient Sampling Expert Expl anation Advance Directive(s) 04/29/2021 2:28 PM Advance Directive(s) 09/08/2016 1:42 PM Advance Directive(s) 08/31/2016 10:18 AM Advance Directive(s) 04/09/2016 12:30 PM Advance Directive(s) 04/06/2016 10:07 AM Advance Directive(s) 10/09/2011 11:10 AM Advance Directive Response Recorded Date/ Time Advance Directives No October 10:42am Living Will No October 20 8:26pm Power of Night Filler No October 20 2 022 8:26pm Advance Directive Response Recorded Date/ Time Advance Directives No October 10:42am Living Will No October 21 1:16am Power of Night Filler No October 21, 2 022 1:16am Documents on File Type Date Recorded Patient Sampling Expert Expl anation Advance Directive(s) 04/29/2021 2:28 PM Advance Directive(s) 10/09/2011 11:10 AM Advance Directive Response Recorded Date/ Time Advance Directives No April 02, 2022 2:41pm Living Will No April 02 2:41pm Power of Night Filler No April 02, 2022 2:41pm Advance Directive Response Recorded Date/ Time Advance Directives No April 02, 2022 3:41pm Living Will No April 02 3:41pm Power of Night Filler No April 02, 2022 3:41pm Advance Directive Response Recorded Date/ Time Advance Directives No December 02, 2022 9:40am Living Will No December 02 9:40am Power of Night Filler No October 4th, 2 023 9:40am Advance Directive Response Recorded Date/ Time Advance Directives No January 06, 2024 9:19am Advance Directive Response Recorded Date/ Time Advance Directives No September 13 11:44am Advance Directive Response Recorded Date/ Time Advance Directives No September 15 12:10pm Advance Directive Response Recorded Date/ Time Advance Directives No September 15 1:51pm Chief Complaint and Reason for Visit Chief [...] DEBILITY FALL, DEBILITY LAB WORK LAB WORK [facility] LAB WORK MONTHLY EXAM Chief Complaint FALL, DEBILITY FALL, DEBILITY FALL, DEBILITY FALL, DEBILITY LAB WORK LAB WORK [facility] LAB WORK [facility] LABWORK MONTHLY EXAM Chief Complaint FALL, DEBILITY FALL, DEBILITY FALL, DEBILITY FALL, DEBILITY LAB WORK LAB WORK [facility]DC LAB WORK [facility]DC LABWORK MONTHLY EXAM FDC LAB WORK Chief Complaint FDC LAB WOR K MONTHLY EXAM FDC LAB WORK MONTHLY EXAM MONTHLY EXAM FDC LAB WORK Chief Complaint MONTHLY EXAM FDC LAB WORK MONTHLY EXAM new problem MONTHLY EXAM FDC LABWORK Chief Complaint MONTHLY EXAM FDC LAB WORK MONTHLY EXAM ANNUAL EXAM MONTHLY EXAM FDC LAB WORK Chief Complaint FDC LAB WOR K NEW CONCERN MONTHLY EXAM LABWORK Chief Complaint Admit Date Pacer Check Remote February 14, 2024 12:11am MONTHLY EXAM February 15, 2024 9:13pm MONTHLY EXAM March 02, 2024 11 :09am NEW CONCERN March 13, 2024 1 :23pm FDC LAB WORK April 04, 2024 5:00am FDC LAB WORK April 07, 2024 4:00am FDC LAB WORK April 07, 2024 10:45am MONTHLY EXAM MD April 11, 2024 12:58pm FDC LAB WORK April 13 5:00am LABWORK April [...] NEW CONCERN March 13, 2024 1 :23pm FDC LAB WORK April 04, 2024 5:00am FDC LAB WORK April 07, 2024 4:00am FDC LAB WORK April 07, 2024 10:45am MONTHLY EXAM April 11, 2024 12:58pm FDC LAB WORK April 13 5:00am LABWORK April [...] NEW CONCERN March 13, 2024 1 :23pm FDC LAB WORK April 04, 2024 5:00am FDC LAB WORK April 07, 2024 4:00am FDC LAB WORK April 07, 2024 10:45am MONTHLY EXAM April 11, 2024 12:58pm FDC LAB WORK April 13 5:00am LABWORK April [...] NEW CONCERN March 13, 2024 1 :23pm FDC LAB WORK April 04, 2024 5:00am FDC LAB WORK April 07, 2024 4:00am FDC LAB WORK April 07, 2024 10:45am MONTHLY EXAM April 11, 2024 12:58pm FDC LAB WORK April 13 5:00am LABWORK April [...] TOES PVD May 30, 2024 8:36 am FDC LAB WORK June 05, 2024 4: 00am Chief Complaint Admit Date FDC LAB WORK April 04, 2024 5:00am FDC LAB WORK April 07, 2024 4:00am FDC LAB WORK April 07, 2024 10:45am MONTHLY EXAM April 11, 2024 12:58pm FDC LAB WORK April 13 5:00am LABWORK April [...] TOES PVD May 30, 2024 8:36 am FDC LAB WORK June 05, 2024 4: 00am LABWORK June 23, 2024 5:0 0am Chief Complaint Admit Date MONTHLY EXAM May 01, 2024 4:59 pm NEW CONCERN May 11, 2024 2:3 7pm Pacer Check Remote March 15th, 2025 4:5 1pm NEW ADMISSION May 18, 2024 1:3 0pm Pacer Check Remote May 22, 2024 12: 21am LABWORK May 22, 2024 5:0 0am ADMISSION EXAM May 23, 2024 2:4 8pm LABWORK May 30, 2024 5:00 am NEW CONCERN May 30, 2024 6:28 am COLD TOES PVD May 30, 2024 8:36 am FDC LAB WORK June 05, 2024 4: 00am LABWORK June 23, 2024 5:0 0am LABWORK July 21, 2024 5:00a m FDC LAB WORK August 01, 2024 5:0 0am LABWORK August 02, 2024 5:00a m Pacer Check Remote August 21, 2024 4:29 am Chief Complaint Admit Date NEW ADMISSION May 18, 2024 1:3 0pm Pacer Check Remote May 22, 2024 12: 21am LABWORK May 22, 2024 5:0 0am ADMISSION EXAM May 23, 2024 2:4 8pm LABWORK May 30, 2024 5:00 am NEW CONCERN May 30, 2024 6:28 am COLD TOES PVD May 30, 2024 8:36 am FDC LAB WORK June 05, 2024 4: 00am LABWORK June 23, 2024 5:0 0am MONTHLY EXAM July 18, 2024 3:15p m LABWORK July 21, 2024 5:00a m FDC LAB WORK August 01, 2024 5:0 0am LABWORK August 02, 2024 5:00a m Pacer Check Remote August 21, 2024 4:29 am Chief Complaint Admit Date NEW ADMISSION May 18, 2024 1:3 0pm Pacer Check Remote May 22, 2024 12: 21am LABWORK May 22, 2024 5:0 0am ADMISSION EXAM May 23, 2024 2:4 8pm LABWORK May 30, 2024 5:00 am NEW CONCERN May 30, 2024 6:28 am COLD TOES PVD May 30, 2024 8:36 am FDC LAB WORK June 05, 2024 4: 00am LABWORK June 23, 2024 5:0 0am MONTHLY EXAM July 18, 2024 3:15p m NEW PROBLEM/CONCERN July 20, 2024 3:45p m LABWORK July 21, 2024 5:00a m FDC LAB WORK August 01, 2024 5:0 0am LABWORK August 02, 2024 5:00a m Pacer Check Remote August 21, 2024 4:29 am Chief Complaint Admit Date NEW ADMISSION May 18, 2024 1:3 0pm Pacer Check Remote May 22, 2024 12: 21am LABWORK May 22, 2024 5:0 0am ADMISSION EXAM May 23, 2024 2:4 8pm LABWORK May 30, 2024 5:00 am NEW CONCERN May 30, 2024 6:28 am COLD TOES PVD May 30, 2024 8:36 am FDC LAB WORK June 05, 2024 4: 00am LABWORK June 23, 2024 5:0 0am MONTHLY EXAM July 18, 2024 3:15p m NEW PROBLEM/CONCERN July 20, 2024 3:45p m LABWORK July 21, 2024 5:00a m FDC LAB WORK August 01, 2024 5:0 0am LABWORK August 02, 2024 5:00a m MONTHLY EXAM August 15, 2024 7:30 pm Pacer Check Remote August 21, 2024 4:29 am Chief Complaint Admit Date NEW ADMISSION May 18, 2024 1:3 0pm Pacer Check Remote May 22, 2024 12: 21am LABWORK May 22, 2024 5:0 0am ADMISSION EXAM May 23, 2024 2:4 8pm LABWORK May 30, 2024 5:00 am NEW CONCERN May 30, 2024 6:28 am COLD TOES PVD May 30, 2024 8:36 am FDC LAB WORK June 05, 2024 4: 00am LABWORK June 23, 2024 5:0 0am MONTHLY EXAM July 18, 2024 3:15p m NEW PROBLEM/CONCERN July 20, 2024 3:45p m LABWORK July 21, 2024 5:00a m FDC LAB WORK August 01, 2024 5:0 0am LABWORK August 02, 2024 5:00a m MONTHLY EXAM August 15, 2024 7:30 pm Pacer Check Remote August 21, 2024 4:29 am NEW CONCERN August 21, 2024 3:15 pm Chief Complaint Admit Date NEW ADMISSION May 18, 2024 1:3 0pm Pacer Check Remote May 22, 2024 12: 21am LABWORK May 22, 2024 5:0 0am ADMISSION EXAM May 23, 2024 2:4 8pm LABWORK May 30, 2024 5:00 am NEW CONCERN May 30, 2024 6:28 am COLD TOES PVD May 30, 2024 8:36 am FDC LAB WORK June 05, 2024 4: 00am LABWORK June 23, 2024 5:0 0am MONTHLY EXAM July 18, 2024 3:15p m NEW PROBLEM/CONCERN July 20, 2024 3:45p m LABWORK July 21, 2024 5:00a m FDC LAB WORK August 01, 2024 5:0 0am LABWORK August 02, 2024 5:00a m MONTHLY EXAM August 15, 2024 7:30 pm Pacer Check Remote August 21, 2024 4:29 am NEW CONCERN August 21, 2024 3:15 pm NEW CONCERN August 25, 2024 2:15 pm Family History No Family History Records Found [...] or prosecute any alcohol or drug abuse patient.[facility] the event this information is protected by the Federal Confidentiality of Alcohol and Drug Abuse Patient Records regulations: The Federal rules restrict any use of the information to criminally investigate or prosecute any alcohol or drug abuse patient.[facility] the event this information is protected by the Federal Confidentiality of Alcohol and Drug Abuse Patient Records regulations: The Federal rules restrict any use of the information to criminally investigate or prosecute any alcohol or drug abuse patient.[facility] the event this information is protected by the Federal Confidentiality of Alcohol and Drug Abuse Patient Records regulations: The Federal rules restrict any use of the information to criminally investigate or prosecute any alcohol or drug abuse patient.[facility] Hospital[facility] the event this information is protected by the Federal Confidentiality of Alcohol and Drug Abuse Patient Records regulations: The Federal rules restrict any use of the information to criminally investigate or prosecute any alcohol or drug abuse patient.[facility] Hospital[facility] the event this information is protected by the Federal Confidentiality of Alcohol and Drug Abuse Patient Records regulations: The Federal rules restrict any use of the information to criminally investigate or prosecute any alcohol or drug abuse patient.[facility] Hospital[facility] the event this information is protected by the Federal Confidentiality of Alcohol and Drug Abuse Patient Records regulations: The Federal rules restrict any use of the information to criminally investigate or prosecute any alcohol or drug abuse patient.[facility] Reason for Visit (unrecogniz ed section [...] 2024 End: April 19, 2024 Marimar Zimmer TRIAL MANAGER, TRIAL MANAGER-C Attending Provider Active Start: April 19, 2024 End: April 19, 2024 Team Status: Inactive Member Role Status Dates Dr. David Miramontes MD Primary Care Provider Active Start: May 01, 2024 End: May 01, 2024 Marimar Zimmer TRIAL MANAGER, TRIAL MANAGER-C Attending Provider Active Start: May 01, 2024 End: May 01, 2024 Team Status: Inactive Member Role Status Dates Dr. David Miramontes MD Primary Care Provider Active Start: May 11, 2024 End: May 11, 2024 Marimar Zimmer TRIAL MANAGER, TRIAL MANAGER-C Attending Provider Active Start: May 11, 2024 [...] 2024 End: May 18, 2024 Marimar Zimmer TRIAL MANAGER, TRIAL MANAGER-C Attending Provider Active Start: May 18, 2024 [...] Status: Inactive Member Role Status Dates Dr. aDvid Miramontes MD Primary Care Provider Active Start: [...] June 23, 2024 End: June 23, 2024 Timber Packer Relationship Specialty Start Date End Date Nicolas Kaur MD [address] [place] [address] PCP - General 02/12/03 Timber Packer Relationship Specialty Start Date End Date Nicolas Kaur MD [address] [place] [address] PCP - General 02/12/03 Timber Packer Relationship Specialty Start Date End Date Nicolas Kaur MD [address] [place] [address] PCP - General 02/12/03 Timber Packer Relationship Specialty Start Date End Date Nicolas Kaur MD [address] [place] [address] PCP - General 02/12/03 Team Status: Active Member Role Status Dates Dr. Nicolas Kaur MD Family Provider Active Dr. Nicolas Kaur MD Primary Care Provider Active Team Status: Inactive Member Role Status Dates Dr. Nicolas Kaur MD Primary Care Provider Active Marimar Zimmer TRIAL MANAGER, TRIAL MANAGER-C Attending Provider Active Team Status: Inactive Member [...] 2024 End: March 13, 2024 Marimar Zimmer TRIAL MANAGER, TRIAL MANAGER-C Attending Provider Active Start: March 13, 2024 [...] 2024 End: May 01, 2024 Marimar Zimmer TRIAL MANAGER, TRIAL MANAGER-C Attending Provider Active Start: May 01, 2024 End: May 01, 2024 Team Status: Inactive Member Role/Relationship Status Dates Dr. David Miramontes MD Primary Care Provider Active Start: May 11, 2024 End: May 11, 2024 Marimar Zimmer TRIAL MANAGER, TRIAL MANAGER-C Attending Provider Active Start: May 11, 2024 [...] 2024 End: May 18, 2024 Marimar Zimmer TRIAL MANAGER, TRIAL MANAGER-C Attending Provider Active Start: May 18, 2024 [...] 2024 End: May 30, 2024 Marimar Zimmer TRIAL MANAGER, TRIAL MANAGER-C Attending Provider Active Start: May 30, 2024 [...] Attending Provider Active Start: August 22, 2024 Team Status: Inactive Member Role/Relationship Status Dates Dr. David Miramontes MD Primary Care Provider Active Start: May 18, 2024 End: May 18, 2024 Marimar Zimmer TRIAL MANAGER, TRIAL MANAGER-C Attending Provider Active Start: May 18, 2024 [...] 2024 End: May 30, 2024 Marimar Zimmer TRIAL MANAGER TRIAL MANAGER-C Attending Provider Active Start: May 30, 2024 [...] 2024 End: June 23, 2024 Team Status: Inactive Member Role/Relationship Status Dates Dr. David Miramontes MD Primary Care Provider Active Start: July 18, 2024 End: July 18, 2024 Dr. David Miramontes MD Attending Provider Active Start: July 18, 2024 End: July 18, 2024 Team Status: Active Member Role/Relationship Status [...] Attending Provider Active Start: August 22, 2024 Team Status: Active Member Role/Relationship Status Dates Dr. David Miramontes MD Primary Care Provider Active Start: August 31, 2024 David GARCIA MD Attending Provider Active Start: August 31, 2024 Team Status: Active Member Role/Relationship Status Dates Dr. David Mriamontes MD Primary Care Provider Active Start: September 07, 2024 David GARCIA MD Attending Provider Active Start: September 07, 2024 Team Status: Inactive Member Role/Relationship Status Dates Marimar Zimmer TRIAL MANAGER, TRIAL MANAGER-C Attending Provider Active Start: July 20, 2024 End: July 20, 2024 Dr. David Miramontes MD Primary Care Provider Active Start: July 20, 2024 End: July 20, 2024 Team Status: Active Member Role/Relationship Status [...] Attending Provider Active Start: August 22, 2024 Team Status: Active Member Role/Relationship Status Dates Dr. David Miramontes MD Primary Care Provider Active Start: August 31, 2024 David GARCIA MD Attending Provider Active Start: August 31, 2024 Team Status: Active Member Role/Relationship Status Dates Dr. David Miramontes MD Primary Care Provider Active Start: September 07, 2024 David GARCIA MD Attending Provider Active Start: September 07, 2024 Team Status: Inactive Member Role/Relationship Status Dates Dr. David Miramontes MD Primary Care Provider Active Start: August 15, 2024 End: August 15, 2024 Marimar Zimmer TRIAL MANAGER, TRIAL MANAGER-C Attending Provider Active Start: August 15, 2024 End: August 15, 2024 Team Status: Inactive Member Role/Relationship Status Dates Dr. David Miramontes MD Primary Care Provider Active Start: August 21, 2024 End: August 21, 2024 Dr. Edson Quinn MD Attending Provider Active S tart: August 21, 2024 End: August 21, 2024 Dr. Edson Quinn MD Referring Provider Active S tart: August 21, 2024 End: August 21, 2024 Team Status: Active Member Role/Relationship Status Dates Dr. David Miramontes MD Primary Care Provider Active Start: August 31, 2024 David GARCIA MD Attending Provider Active Start: August 31, 2024 Team Status: Active Member Role/Relationship Status Dates Dr. David Miramontes MD Primary Care Provider Active Start: September 07, 2024 David GARCIA MD Attending Provider Active Start: September 07, 2024 Team Status: Inactive Member Role/Relationship Status Dates Dr. David Miramontes MD Primary Care Provider Active Start: August 21, 2024 End: August 21, 2024 Marimar Zimmer TRIAL MANAGER TRIAL MANAGER-C Attending Provider Active Start: August 21, 2024 End: August 21, 2024 Team Status: Active Member Role/Relationship Status Dates Dr. David Miramontes MD Primary Care Provider Active Start: August 22, 2024 David GARCIA MD Attending Provider Active Start: August 22, 2024 Team Status: Active Member Role/Relationship Status Dates Dr. David Miramontes MD Primary Care Provider Active Start: August 31, 2024 David GARCIA MD Attending Provider Active Start: August 31, 2024 Team Status: Active Member Role/Relationship Status Dates Dr. David Miramontes MD Primary Care Provider Active Start: September 07, 2024 David GARCIA MD Attending Provider Active Start: September 07, 2024 Team Status: Inactive Member Role/Relationship Status Dates Dr. David Miramontes MD Primary Care Provider Active Start: August 25, 2024 End: August 25, 2024 Marimar Zimmer TRIAL MANAGER TRIAL MANAGER-C Attending Provider Active Start: August 25, 2024 End: August 25, 2024 Team Status: Active Member Role/Relationship Status Dates Dr. David Miramontes MD Primary Care Provider Active Start: August 31, 2024 David GARCIA MD Attending Provider Active Start: August 31, 2024 Team Status: Active Member Role/Relationship Status Dates Dr. David Miramontes MD Primary Care Provider Active Start: September 07, 2024 David GARCIA MD Attending Provider Active Start: September 07, 2024 Goals (unrecognized section and content) Goals [...] section and content) DATE CREATED AUTHOR 06/08/2022 [facility] DATE CREATED AUTHOR AUTHOR'S ORGANIZ ATION 07/17/2024 [facility] DATE CREATED AUTHOR AUTHOR'S ORGANIZ ATION 09/19/2024 [facility] FOR RECORDS PERTAINING TO PATIENTS WHO ARE [...] BE BASED ON THE PRIMARY CLINICAL RECORDS. [facility]. provides no warranty or guarantee of the accuracy or completeness of information in this document.
== END ==
LOC: OLS.WHLCAR 12:00
PROVIDERS: PCP Internal Medicine; Visit Provider Internal Medicine
DX: G30.9 Alzheimer's disease, unspecified (principal); F02.818 Dementia in other diseases classified elsewhere, unspecified severity, with other behavioral disturbance; G25.0 Essential tremor; I48.20 Chronic atrial fibrillation, unspecified; I73.9 Peripheral vascular disease, unspecified
CPT/HCPCS: 87070; 87077; 87186; 87205

== ENCOUNTER 2024-10-27 20:34 | Emergency (ER) | payer MEDICARE, MEDICAID, SELFPAY ==
[2024-10-27 20:34] VITALS: BP 128/73; PULSE 60; RESP 18; TEMP 36.5; O2SAT 97; BMI 30.2
--- NOTE | 2024-10-27 20:50 | ED.VIS.FALL ---
HPI <ERWIN Phillip - Last Filed: 10/27/24 21:30> HPI - Fall History of Present Illness Chief Complaint: Fall Narrative Narrative: 84-year-old male with A-fib on Eliquis and dementia presents after an unwitnessed fall. He has a hematoma on his head. He does not know what happened, he is alert to self only which is baseline. He has no complaints. PFSH <ERWIN Phillip - Last Filed: 10/27/24 21:30> [facility] Medical History Alzheimers disease Former smoker Dementia Adult failure to thrive Chronic anticoagulation History of atrial fibrillation Fall Sick sinus syndrome Bradycardia Sinus pause SUZAN on CPAP (11/07/18) Hematuria Chronic midline low back pain without sciatica Multiple gastric ulcers Essential tremor Mild memory disturbance Benign neoplasm of colon Chronic rhinitis BPH (benign prostatic hyperplasia) Atrial fibrillation Essential (primary) hypertension Home Medications ?Medication ?Instructions ?Recorded ?Last Taken ?Type sennosides 8.6 mg-docusate sodium 2 tab PO BID #180 tabs 02/26/22 Unknown Rx 50 mg tablet (Stool Softener-Stimulant Laxative) cimetidine 200 mg tablet 200 mg PO DAILY #90 tabs 03/25/22 Unknown Rx aluminum-mag hydroxide-simethicone 15 ml PO Q4H PRN 07/08/23 Unknown History 200 mg-200 mg-20 mg/5 mL oral susp benzocaine 20 %-menthol 0.1 %-zinc ea mucous membrane 07/08/23 Unknown History chloride 0.15 % mucosal gel (Orajel 3X Mouth Sores) magnesium hydroxide 400 mg/5 mL 30 ml PO DAILY PRN 07/08/23 Unknown History oral suspension memantine 5 mg tablet 5 mg PO BID 07/08/23 Unknown History terazosin 5 mg capsule 5 mg PO QHS 07/08/23 Unknown History quetiapine 25 mg tablet (Seroquel) 75 mg (3 x 25 mg) PO DAILY 3 11/08/23 Unknown Rx months #270 tabs furosemide 40 mg tablet 40 mg PO DAILY #90 tabs 03/06/24 Unknown Rx finasteride 5 mg tablet 5 mg PO QHS BPH #90 tabs 04/03/24 Unknown Rx sertraline 25 mg tablet (Zoloft) 25 mg PO QDAY #90 tabs 05/05/24 Unknown Rx potassium chloride 10 mEq 10 meq PO DAILY #90 tabs 06/16/24 Unknown Rx tablet,extended release apixaban 5 mg tablet (Eliquis) 5 mg PO BID #180 tabs 08/14/24 Unknown Rx Allergy/AdvReac Type Severity Reaction Status Date / Time No Known Allergies Allergy Verified 10/27/24 20:38 Family History Father Heart disease Brother Heart disease Surgical History Presence of cardiac pacemaker (11/18/18) History of tonsillectomy History of inguinal hernia repair Social History Smoking Status: Former smoker how long ago did patient quit smokin years ago alcohol intake: never substance use type: does not use caffeine: No ROS <ERWIN Phillip - Last Filed: 10/27/24 21:30> ROS ED ROS Narrative Unable to obtain due to dementia EXAM <ERWIN Phillip - Last Filed: 10/27/24 21:30> Physical Exam Narrative Exam Narrative: CONST: Patient sitting in no acute distress. EYES: Normal inspection. PERRL, EOMI. HEAD: Right frontal hematoma and abrasion. No deformity or crepitus. No raccoon eyes or Sanchez sign, no epistaxis or nasal septal hematoma, no hemotympanum, no CSF otorrhea or rhinorrhea. NECK: Normal inspection. No midline spinal tenderness, no step off or crepitus. RESP: No respiratory distress, CTAB. CVS: Regular rate and rhythm, no murmur, no gallop. ABD: Soft and nontender, no guarding or rebound, nondistended. SKIN: Color normal, no rash, warm, dry, intact. EXTREMITIES: Normal appearance, no pedal edema. NEURO: Alert to self only. Follows commands, moving all extremities. PSYCH: Normal affect. Const Vital Signs: 10/27/24 20:34 10/27/24 21:51 Temperature 97.7 F L Temperature Source Oral Pulse Rate 60 64 Respiratory Rate 18 16 Blood Pressure 128/73 H 132/60 H Blood Pressure Mean 91 84 Pulse Ox 97 98 Oxygen Delivery Method Room Air <Dr. Abhinav Leigh MD - Last Filed: 10/27/24 21:54> Physical Exam Const Vital Signs: 10/27/24 20:34 10/27/24 21:51 Temperature 97.7 F L Temperature Source Oral Pulse Rate 60 64 Respiratory Rate 18 16 Blood Pressure 128/73 H 132/60 H Blood Pressure Mean 91 84 Pulse Ox 97 98 Oxygen Delivery Method Room Air [facility] <ERWIN Phillip - Last Filed: 10/27/24 21:30> [facility] Narrative Medical decision making narrative: Differential includes but not limited to closed head injury, skull fracture, intracranial hemorrhage 84-year-old male with advanced dementia had an unwitnessed fall. He has a right frontal hematoma and abrasion. He is on Eliquis for A-fib. He is awake and alert in no distress. Vital stable. He has no signs of basilar skull fracture. Pupils equal and reactive. Nonfocal neurological exam. Alert to self only consistent with his dementia. CT scan of the brain shows no acute findings and he will be discharged with instructions to use ice and Tylenol. Radiography Diagnostic Testing: Clinical Impression(s) from Imaging Studies Brain CT 10/27/24 20:55 IMPRESSION: 1. No acute intracranial abnormality. 2. Mild right frontal scalp hematoma/contusion. No calvarial fracture. 3. Mild volume loss and chronic microangiopathic changes. Reading Location: [facility] <Dr. Abhinav Leigh MD - Last Filed: 10/27/24 21:54> [facility] Narrative Medical decision making narrative: Differential includes but not limited to closed head injury, skull fracture, intracranial hemorrhage 84-year-old male with advanced dementia had an unwitnessed fall. He has a right frontal hematoma and abrasion. He is on Eliquis for A-fib. He is awake and alert in no distress. Vital stable. He has no signs of basilar skull fracture. Pupils equal and reactive. Nonfocal neurological exam. Alert to self only consistent with his dementia. CT scan of the brain shows no acute findings and he will be discharged with instructions to use ice and Tylenol. I have personally performed a face to face assessment of the patient and have reviewed the ALONDRA Note. I performed a substantive portion of the visit including all aspects of the following. My zambrano findings include: History is 84-year-old male from extended-care facility DNR that is on chronic anticoagulation Eliquis due to A-fib. Reportedly fell struck his right forehead. He is a very limited informant really cannot give me much information. Denies any complaints Exam is [84-year-old male sitting upright in bed. Vital signs are stable afebrile. H EENT exam pupils round react light. He is hematoma abrasion and bruise on his right forehead. Tender to palpation. Rest of his scalp and face are nontender. C-spine and neck are nontender. Back is nontender. No bruising. Lungs are clear. Heart rate about 65 no murmur. Chest wall ribs nontender. No crepitus or subcu air. No bruising. Abdomen is soft. No bruising. Nontender. No peritoneal signs. Pelvic girdle is intact. He can flex and extend at both shoulders and elbows. Normal healthcare associate strength. He can flex and extend at both hips and knees. Dorsi plantarflexion intact. Neurologically his eyes are open he is awake. He is try to answer questions but he has dementia he is very confused.] Medical Decision Making [CT of the brain shows a hematoma on his right forehead but no skull fracture or intracranial bleed. Read by the radiologist reviewed by me. 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 No acute intracranial abnormality. 2. Mild right frontal scalp hematoma/contusion. No calvarial fracture. 3. Mild volume loss and chronic microangiopathic changes. Reading Location: [facility] Discharge Plan Triage Chief Complaint: Fall ED Midlevel Provider: Ira Abad ED Provider: Abhinav Leigh Dx/Rx/DC Orders Clinical Impression: Closed head injury, Hematoma of frontal scalp, Fall, Anticoagulant long-term use Instructions: ED Head Injury (Adult) Prescriptions: No Action terazosin 5 mg capsule 5 mg PO QHS magnesium hydroxide 400 mg/5 mL suspension 30 ml PO DAILY PRN alum-mag hydroxide-simeth 200-200-20 mg/5 mL suspension 15 ml PO Q4H PRN Rx Instructions: 1 and 3 hours after meals and at bedtime Orajel 3X Mouth Sores 20-0.1-0.15 % gel mucous membrane memantine 5 mg tablet 5 mg PO BID sennosides-docusate sodium [Stool Softener-Stimulant Laxat] 8.6-50 mg tablet 2 tab PO BID Qty: 180 3RF cimetidine 200 mg tablet 200 mg PO DAILY Qty: 90 3RF quetiapine [Seroquel] 25 mg tablet 75 mg PO DAILY 90 Days Qty: 270 3RF Rx Instructions: 1 tab a.m. and 2 tabs p.m. furosemide 40 mg tablet 40 mg PO DAILY Qty: 90 3RF finasteride 5 mg tablet 5 mg PO QHS Qty: 90 3RF sertraline [Zoloft] 25 mg tablet 25 mg PO QDAY Qty: 90 3RF potassium chloride 10 mEq tablet extended release 10 meq PO DAILY Qty: 90 3RF Eliquis 5 mg tablet 5 mg PO BID Qty: 180 3RF Primary Care Provider: Quirino Miramontes Referrals: Quirino Miramontes MD [Primary Care Provider] - Activity Restrictions/Additional Instructions: The CT scan showed no broken bones or internal bleeding. Ice and take Tylenol every 6 hours as needed. Print Language: Jordanian Disposition Disposition: Home, Self Care
--- NOTE | 2024-10-27 20:55 | CT_ITS ---
PROCEDURE: CT BRAIN/HEAD WITHOUT CONTRAST 10/27/2024 REASON FOR EXAM: HEAD INJURY TECHNIQUE: Procedure Code: CTBR Modality: CT Procedure: BRAIN/HEAD WITHOUT CONTRAST Coronal and Sagittal reconstruction series were provided. One or more dose reduction techniques were used (e.g., Automated exposure control, adjustment of the mA and/or kV according to patient size, use of iterative reconstruction technique. RADIATION DOSE SUMMARY: CTDlvol: 44.99 mGy DLP: 796.11 mGycm COMPARISON: 10/22/2021 FINDINGS: No acute intracranial hemorrhage, extra-axial collection, mass effect or evidence of acute infarct. Mild generalized brain parenchymal volume loss and chronic microangiopathic changes. Unremarkable orbits. Atherosclerotic calcification along the carotid siphons. Mild right frontal scalp hematoma/contusion. No acute skull base or calvarial fracture. Well-aerated paranasal sinuses and bilateral mastoid air cells. CT/Brain/Head without Contrast IMPRESSION: 1. No acute intracranial abnormality. 2. Mild right frontal scalp hematoma/contusion. No calvarial fracture. 3. Mild volume loss and chronic microangiopathic changes. Reading Location: [id number]
--- OUTSIDE RECORDS SUMMARY | 2024-10-27 21:27 | XMS RPT_ITS | CCD ---
Author Organization [facility] Care Team Providers Care Telegrapher Agent Name Role Phone Nicolas Cardenas MD Primary Care Provider Dr. Nicolas Cardenas Primary Care Provider Dr. Abhinav Leigh Emergency Provider Dr. Robinson Nguyen Admit Provider Dr. Robinson Nguyen Attending Provider Dr. Robinson Nguyen Other Provider Dr. Kevin Nichole Attending Provider Dr. Kevin Nichole Other Provider Dr. Desire Leung Attending Provider Nicolas Cardenas MD Primary Care Provider Mesha ACUTE DIALYSIS REGISTERED NURSE, ACUTE DIALYSIS REGISTERED NURSE-C Marimar Attending Provider Dr. Nicolas Justin Primary Care Provider Mesha ACUTE DIALYSIS REGISTERED NURSE, ACUTE DIALYSIS REGISTERED NURSE-C Marimar Attending Provider Dr. David Nina Attending Provider Unavailable Primary Care Provider UnavailNICOLAS Blankenship Referring Unavailable NICOLAS CARDENAS Attending Unavailable NICOLAS CARDENAS Primary Care Unavailable Dr. Nicolas Cardenas Primary Care Provider Mesha ACUTE DIALYSIS REGISTERED NURSE, ACUTE DIALYSIS REGISTERED NURSE-C Marimar Attending Provider Dr. David Nina Attending Provider Dr. Nicolas Cardenas Primary Care Provider Mesha ACUTE DIALYSIS REGISTERED NURSE, ACUTE DIALYSIS REGISTERED NURSE-C Marimar Attending Provider Dr. Frandy Ninaongbe Attending Provider Dr. Nicolas Cardenas Primary Care Provider Mesha ACUTE DIALYSIS REGISTERED NURSE, ACUTE DIALYSIS REGISTERED NURSE-C Marimar Attending Provider Dr. David Miramontes Attending Provider [phone] Dr. David Miramontes MD Primary Care Provider Dr. Edson Quinn MD Attending Provider Dr. Edson Quinn MD Referring Provider [phone] Dr. David Miramontes MD Attending Provider Isidro Can Attending Provider Mesha ACUTE DIALYSIS REGISTERED NURSE-CMarimar Attending Provider David Miramontes MD Attending Provider [...] David Miramontes MD Primary Care Provider Mesha ACUTE DIALYSIS REGISTERED NURSE-CMarimar Attending Provider Unavailable Primary Care Provider Unavailabl DIANA Sampson Attending Unava ilable SELF Referring Unavailable Dr. David Miramontes MD Primary Care Provider Mesha ACUTE DIALYSIS REGISTERED NURSE-CMarimar Attending Provider David Miramontes MD Attending Provider Unavailapril Miramontes MD, Dr. Win Attending Provider [phone] David Miramontes MD Referring Provider Unavaila arthur Miramontes MD, Dr. Win Primary Care Provider Tickebenezer ACUTE DIALYSIS REGISTERED NURSE-C, Marimar Attending Provider Kai ALAMO, Dr. Sandhu Attending Provider [phone] Kai ALAMO, Dr. Sandhu Referring Provider [phone] Kulwinder ALAMO, Dr. Win Primary Care Provider David Miramontes MD Attending Provider Unavaila ble Tickton ACUTE DIALYSIS REGISTERED NURSE-C, Marimar Attending Provider Kulwinder ALAMO, Dr. Win Attending Provider [phone] Kai ALAMO, Dr. Sandhu Attending Provider [phone] Kai ALAMO, Dr. Sandhu Referring Provider [phone] Kulwinder ALAMO, Dr. Win Primary Care Provider David Miramontes MD Attending Provider Unavaila ble Tickton ACUTE DIALYSIS REGISTERED NURSE-C, Marimar Attending Provider Kulwinder ALAMO, Dr. Win Attending Provider [phone] Kulwinder ALAMO, Dr. Win Primary Care Provider David Miramontes MD Attending Provider Unavaila ble Ungerer ACUTE DIALYSIS REGISTERED NURSE-C, Dasia Attending Provider [phone] Oleghe, Efewongbe Primary Care Unavailable Oleghe, Efewongbe Referring Unavailable Oleghe, Efewongbe Attending Unavailable Oleghe, Efewongbe Primary Care Unavailable Oleghe RADHA Efewongbe Attending Unavailabl e Oleghe, Efewongbe Primary Care Unavailable Oleghe OLS Efewongbe Attending Unavailabl e Oleghe RADHA Efewongbe Attending Unavailabl e Oleghe, Efewongbe Primary Care Unavailable Oleghe, Efewongbe Primary Care Unavailable Oleghe RADHA Efewongbe Attending Unavailabl e Oleghe, Efewongbe Primary Care Unavailable Marimar Zimmer Attending Unavailable Oleghe, Efewongbe Primary Care Unavailable Marimar Zimmer Attending Unavailable Oleghe, Efewongbe Primary Care Unavailable [...] e Oleghe, Efewongbe Primary Care Unavailable Kai, Edson Referring Unavailable Kai, [place]wood [place] Attending Unavailable Oleghe, Efewongbe Primary Care Unavailable Oleghe, Efewongbe Primary Care Unavailable Oleghe, Efewongbe Attending Unavailable Oleghe, Efewongbe Primary Care Unavailable Tickton, Marimar Attending Unavailable Oleghe, Efewongbe Primary Care Unavailable Josiah Klein Attending Unavailable Oleghe, Efewongbe Referring Unavailable Oleghe, Efewongbe Primary Care Unavailable Oleghe OLS, Efewongbe Attending Unavailabl e Oleghe, Efewongbe Primary Care Unavailable Kai, [place] Referring Unavailable Kai, Edson Attending Unavailable Oleghe, Efewongbe Primary Care Unavailable Tickton, Marimar Attending Unavailable Oleghe, Efewongbe Primary Care Unavailable Tickton, Marimar Attending Unavailable Oleghe, Efewongbe Primary Care Unavailable Tickton, Marimar Attending Unavailable Oleghe, Efewongbe Primary Care Unavailable Oleghe, Efewongbe Attending Unavailable Oleghe, Efewongbe Primary Care Unavailable Tickton, Marimar Attending Unavailable Oleghe, Efewongbe Primary Care Unavailable Tickton, Marimar Attending Unavailable Oleghe, Efewongbe Primary Care Unavailable Oleghe, Efewongbe Attending Unavailable Oleghe, Efewongbe Primary Care Unavailable Tickton, Marimar Attending Unavailable Oleghe, Efewongbe Primary Care Unavailable Kai, Edson Referring Unavailable Kai, Edson Attending Unavailable Oleghe, Efewongbe Primary Care Unavailable Tickebenezer, Marimar Attending Unavailable Oleghe, Efewongbe Primary Care Unavailable Kai, [place] Referring Unavailable Kai, [place] Attending Unavailable Oleghe, Efewongbe Primary Care Unavailable Oleghe, Efewongbe Attending Unavailable Oleghe, Efewongbe Primary Care Unavailable Isidro Can Attending Unavailable Oleghe, Efewongbe Primary Care Unavailable Tickebenezer, Marimar Attending Unavailable Oleghe, Efewongbe Primary Care Unavailable Mesha, Marimar Attending Unavailable Oleghe, Efewongbe Primary Care Unavailable Oleghe, Efewongbe Attending Unavailable Oleghe, Efewongbe Primary Care Unavailable Mesha Marimar Attending Unavailable Oleghe, Efewongbe Primary Care Unavailable Mesha Marimar Attending Unavailable Oleghe, Efewongbe Primary Care Unavailable Dasia Barrett Attending Unavailable Oleghe, Efewongbe Primary Care Unavailable Kai, Edson Referring Unavailable Kai, Edson Attending Unavailable Oleghe, Efewongbe Primary Care Unavailable Kyung Wright Attending Unavailable Oleghe, Efewongbe Primary Care Unavailable Mesha Marimar Attending Unavailable Oleghe, Efewongbe Primary Care Unavailable Oleghe OLS, Efewongbe Attending Unavailabl e Oleghe, Efewongbe Primary Care Unavailable Oleghe OLS, Efewongbe Attending Unavailabl e Oleghe, Efewongbe Primary Care Unavailable Oleghe OLS, Efewongbe Attending Unavailabl e Oleghe, Efewongbe Primary Care Unavailable Oleghe OLS, Efewongbe Attending Unavailabl e Oleghe, Efewongbe Primary Care Unavailable Kai, Edson Referring Unavailable Kai, Edson Attending Unavailable Oleghe, Efewongbe Primary Care Unavailable Oleghe OLS, Efewongbe Attending Unavailabl e Medications Current Medications Medication Drug Class(es) Dates Sig (Normalized) Sig (Original) aluminum hydroxide 40 mg/ml / magnesium hydroxide 40 mg/ml / simethicone 4 mg/ml oral suspension (16 sources) Start: 07-08-2023 Alum-Mag Hydroxide-Simeth 200-200-20 mg/5 mL suspension Active 15 mL PO Q4H as needed July 08, 2023 12:00am 1 and 3 hours after meals and at bedtime Aspirin (1 source) Platelet Aggregation Inhibitor, Nonsteroidal Anti-inflammatory Drug Start: 10-20-2021 aspirin Active October 20, 2021 12:00am benzocaine 0.2 mg/mg / menthol 0.001 mg/mg / zinc chloride 0.0015 mg/mg oral gel (16 sources) Standardized Chemical Allergen Start: 07-08-2023 Benzocaine-Mentho [...] daily. docusate sodium 50 mg / sennosides, chcf 8.6 mg oral tablet (20 sources) Start: 10-22-2021 End: 02-26-2022 Sennosides-Docusate Sodium (Stool Softener-Stimulant Laxat) 8.6-50 mg tablet Active 2 {tbl} PO TWICE A DAY 180 February 26, 2022 5:15pm Magnesium Hydroxide (16 sources) Start: 07-08-2023 take 1 mL by mouth once daily as needed Magnesium Hydroxide 400 mg/5 mL suspension Active 30 mL PO DAILY as needed July 08, 2023 12:00am potassium chloride 10 meq extended release oral tablet (20 sources) Start: 06-16-2024 take 1 tablet by mouth once daily Potassium Chloride 10 mEq tablet extended release Active 10 meq PO DAILY 90 3 June 16, 2024 1:13pm Start: 08-23-2018 End: [...] oral tablet (20 sources) Atypical Antipsychotic Start: 4 take 1 tablet by mouth once daily [...] 2023 5:03pm sertraline 25 mg oral tablet (16 sources) Serotonin Reuptake Inhibitor Start: 05-05-2024 take 1 tablet by mouth once daily Sertraline (Zoloft) 25 mg tablet Active 25 mg PO daily 90 May 05, 2024 1:00am Completed/Discontinued Medications Medication [...] capsule (20 sources) Start: 9 End: 4 Pentwater-3 Fatty Acids-Fish Oil (Fish Oil) 360-1,200 mg [...] 1 tablet by glenna th once daily. memantine hydrochloride 5 mg oral tablet (20 sources) N-kegvsq-M-aspartat e Receptor Antagonist Start: 3 End: take 1 tablet by mouth twice daily Memantine 5 mg tablet Discontinued 0 .ROUTE .COMPLEX 180 3 March 31, 2023 7:49pm July 08, 2023 11:50am TAKE 1 TABLET BY MOUTH TWICE DAILY Menthol / Zinc Oxide (20 sources) Start: 2 End: Menthol-Zinc Oxide (Calmoseptine) 0.44-20.6 % ointment Discontinued [...] A DAY 0 October 22, 2021 12:00am Pentwater-3 Fatty Acids (Fish Oil Concentrate) 1,000 mg capsule (20 sources) Start: 08-23-2018 End: 11-08-2018 take 1 capsule by mouth once daily Pentwater-3 Fatty Acids (Fish Oil Concentrate) 1,000 mg capsule Discontinued 1000 mg PO DAILY August 23, 2018 12:00am November 08, 2018 1:59pm Start: 08-23-2018 End: 11-08-2018 take 1 capsule by mouth once daily Pentwater-3 Fatty Acids (Fish Oil Concentrate) 1,000 mg capsule Discontinued 1000 MG PO DAILY August 22, 2018 11:00pm November 08, 2018 12:59pm Start: 08-23-2018 End: 11-08-2018 take 1 capsule by mouth once daily Pentwater-3 Fatty Acids (Fish Oil Concentrate) 1,000 mg capsule Discontinued 1000 MG PO DAILY August 23, 2018 12:00am November 08, 2018 1:59pm omeprazole 20 mg delayed release oral capsule (20 sources) Proton Pump Inhibitor Start: 08-05-2018 End: 07-08-2023 take 1 capsule by mouth once daily Omeprazole 20 mg capsule,delayed release(DR/EC) Discontinued 20 mg PO DAILY 90 February 26, 2022 5:14pm July 08, 2023 11:50am GERD Comment on above: Take 1 capsule by [facility] once daily. Perflutren Lipid Microspheres ([employer]) 1.1 mg/mL suspension (20 sources) Start: 08-05-2018 [...] tablet Discontinued 100 mg PO DAILY 90 3 February 26, [...] hemorrhage or perforation] Onset: 07-16-2016 07-16-2016 Chronic Hyperplasia of prostate (7 sources) Benign prostatic hypertrophy with outflow obstruction; Translations: [Benign prostatic hyperplasia with lower urinary tract symptoms] Onset: 03-10-2005 06-27-2015 Chronic Malaise and fatigue (1 source) Other fatigue; Translations: [Other fatigue] Onset: 08-07-2024 Episodic Other aftercare (20 sources) Long-term current use of anticoagulant; 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] 10-30-2021 Episodic Other aftercare (2 sources) alf (current) use of anticoagulants; Translations: [Long-term (current) [...] Translations: [Adult failure to thrive] Episodic Other upper respiratory disease (7 sources) Chronic rhinitis; Translations: [Chronic rhinitis] Onset: 03-10-2005 01-08-2010 Chronic Peripheral and visceral atherosclerosis (1 source) Peripheral vascular disease, unspecified; Translations: [Peripheral vascular disease, unspecified] Onset: 10-17-2024 Chronic Residual codes; unclassified (20 sources) Obstructive [...] bleeding] Onset: 08-31-2006 Resolved: 06-26-2014 06-26-2014 Chronic Genitourinary symptoms and ill-defined conditions (6 sources) Todd hematuria; Translations: [Gross hematuria] Onset: 09-16-2018 Resolved: 12-13-2018 07-14-2024 Episodic Immunizations and screening for infectious disease (2 sources) Vaccination needed; Translations: [Encounter for immunization] Onset: 04-11-2024 Episodic Other and unspecified benign neoplasm (7 [...] right lower leg] Onset: 05-09-2024 Episodic Other diseases of bladder and urethra (2 sources) Bladder neck obstruction; Translations: [Bladder-neck obstruction] Onset: 08-22-2007 Resolved: 04-22-2012 04-22-2012 Chronic Other gastrointestinal disorders (2 sources) Occult blood in stools; Translations: [Other fecal abnormalities] Onset: 05-25-2013 Resolved: 01-18-2017 01-18-2017 Episodic Other nervous system disorders (8 sources) Impaired cognition; Translations: [Other symptoms and signs involving cognitive functions and awareness] Onset: 12-13-2018 12-13-2018 Episodic Other nutritional; endocrine; and metabolic disorders (1 source) Hyperuricemia without signs of inflammatory arthritis and tophaceous disease; Translations: [Hyperuricemia without signs of inflammatory arthritis and tophaceous disease] Onset: 07-14-2024 Episodic Other screening for suspected conditions (not mental disorders or infectious disease) (2 sources) Raised prostate specific antigen; Translations: [Elevated prostate specific antigen [PSA]] Onset: 03-10-2005 Resolved: 06-26-2014 06-26-2014 Episodic Residual codes; unclassified (2 sources) Mild memory disturbance ; Translations: [Other amnesia] Onset: 05-23-2013 Resolved: 12-13-2018 12-13-2018 Episodic Residual codes; unclassified (1 source) Edema, unspecified; Translations: [Edema, unspecified] Onset: 05-09-2024 Episodic Spondylosis; intervertebral disc disorders; other back problems (2 sources) Chronic low back pain; Translations: [Chronic midline low back pain without sciatica] Onset: 07-19-2017 Resolved: 05-26-2019 05-26-2019 Episodic Urinary tract infections (1 source) Urinary tract infection, site not specified; Translations: [Urinary tract infection, site not specified] Onset: 05-10-2024 Episodic Results Test Name Value Interpretation Reference Range Facility Gram stainOrdered By: Jarrell Miramontes on 09-25-2024 Microscopic observation Gram stain Nom (Unsp spec) [facility] Anion gap in Serum or Plasma Ordered By: David Miramontes on 09-07-2024 Anion gap [Moles/Vol] 9 mmol/L 5-15 [facility] BUN/creatinine ratioOrdered By: David Miramontes on 09-07-2024 Urea nitrogen/Creatinine [Mass ratio] 15.9 mg/mg 10-[address] [facility] Carbon dioxide, total [Moles /volume] in Central venous bloodOrdered By: David Miramontes on 09-07-2024 CO2 [Moles/Vol] 28.4 mmol/L 21.0-32.[address] [facility] Chloride assayOrdered By: Mayra Miramontes on 09-07-2024 Chloride [Moles/Vol] 104 mmol/L 98-108 [facility] Glomerular filtration rate ( GFR) estimation/1.73 sq m using serum, plasma, or whole bOrdered By: David Miramontes on 09-07-2024 GFR/1.73 sq M.predicted among non-blacks MDRD (S/P/Bld) [Vol rate/Area] 72 mL/min/{1.73_m2} >[address] [facility] Comment on above: mL/min/1.73m2 CKD-EP I Creatinine Equation (2020) Potassium measurement (mass/ volume)Ordered By: David Miramontes on 09-07-2024 Potassium (Unsp spec) [Mass/Vol] 4.0 mmol/L 3.3-5.[address] [facility] Serum creatinine measurement (mass/volume)Ordered By: David Miramontes 09-07-2024 Creatinine [Mass/Vol] 1.02 mg/dL 0.70-1.20 [facility] Serum glucose measurement (m ass/volume)Ordered By: David Miramontes 09-07-2024 Glucose [Mass/Vol] 80 mg/dL 70-99 [facility] Serum or plasma calcium siobhan urement (mass/volume)Ordered By: David Miramontes on 09-07-2024 Calcium [Mass/Vol] 9.3 mg/dL 7.6-11.0 [facility] Serum or plasma urea nitroge n measurement (mass/volume)Ordered By: David Miramontes on 09-07-2024 Urea nitrogen [Mass/Vol] 16 mg/dL 4-[address] [facility] Sodium levelOrdered By: Frandy Miramontes on 09-07-2024 Sodium [Moles/Vol] 141 mmol/L 133-145 [facility] Anion gap in Serum or Plasma Ordered By: David Mriamontes on 08-31-2024 Anion gap [Moles/Vol] 10 mmol/L 5-15 [facility] BUN/creatinine ratioOrdered By: David Miramontes on 08-31-2024 Urea nitrogen/Creatinine [Mass ratio] 12.4 mg/mg 10-[address] [facility] Carbon dioxide, total [Moles /volume] in Central venous bloodOrdered By: David Miramontes on 08-31-2024 CO2 [Moles/Vol] 26.4 mmol/L 21.0-32.[address] [facility] Chloride assayOrdered By: Mayra Miramontes on 08-31-2024 Chloride [Moles/Vol] 103 mmol/L 98-108 [facility] Glomerular filtration rate ( GFR) estimation/1.73 sq m using serum, plasma, or whole bOrdered By: David Miramontes on 08-31-2024 GFR/1.73 sq M.predicted among non-blacks MDRD (S/P/Bld) [Vol rate/Area] 80 mL/min/{1.73_m2} >[address] [facility] Comment on above: mL/min/1.73m2 CKD-EP I Creatinine Equation (2020) Potassium measurement (mass/ volume)Ordered By: David Miramontes on 08-31-2024 Potassium (Unsp spec) [Mass/Vol] 4.2 mmol/L 3.3-5.[address] [facility] Serum creatinine measurement (mass/volume)Ordered By: David Miramontes on 08-31-2024 Creatinine [Mass/Vol] 0.93 mg/dL 0.70-1.20 [facility] Serum glucose measurement (m ass/volume)Ordered By: David Miramontes on 08-31-2024 Glucose [Mass/Vol] 86 mg/dL 70-99 [facility] Serum or plasma calcium siobhan urement (mass/volume)Ordered By: David Miramontes on 08-31-2024 Calcium [Mass/Vol] 9.4 mg/dL 7.6-11.0 [facility] Serum or plasma urea nitroge n measurement (mass/volume)Ordered By: David Miramontes on 08-31-2024 Urea nitrogen [Mass/Vol] 12 mg/dL 4-[address] [facility] Sodium levelOrdered By: Frandy carleen Kulwinder on 08-31-2024 Sodium [Moles/Vol] 139 mmol/L 133-145 [facility] Absolute lymphocyte countOrd ered By: David Miramontes on 08-22-2024 Lymphocytes Auto (Unsp spec) [#/Vol] 1.28 10*3/uL 0.83-4.[address] [facility] Absolute neutrophil countOrd ered By: Davdi Miramontes on 08-22-2024 Neutrophils (Bld) [#/Vol] 5.0 10*3/uL 2.0-7.[address] [facility] Anion gap in Serum or Plasma Ordered By: David Miramontes on 08-22-2024 Anion gap [Moles/Vol] 8 mmol/L 5-15 [facility] Automated lymphocyte count a s percentage of total leukocytesOrdered By: David Miramontes on 08-22-2024 Lymphocytes/100 WBC Auto (Unsp spec) 17.6 % Low 19-[address] [facility] BUN/creatinine ratioOrdered By: David Miramontes on 08-22-2024 Urea nitrogen/Creatinine [Mass ratio] 13.7 mg/mg 10-[address] [facility] Basophil percentageOrdered B y: David Miramontes on 08-22-2024 Basophils/100 WBC (Bld) 0.7 % 0-1 [facility] Bilirubin, totalOrdered By: David Miramontes on 08-22-2024 Bilirubin [Mass/Vol] 0.31 mg/dL 0.00-1.30 [facility] Carbon dioxide, total [Moles /volume] in Central venous bloodOrdered By: David Miramontes on 08-22-2024 CO2 [Moles/Vol] 28.1 mmol/L 21.0-32.[address] [facility] Chloride assayOrdered By: Mayra Miramontes on 08-22-2024 Chloride [Moles/Vol] 107 mmol/L 98-108 [facility] Eosinophil percentageOrdered By: David Miramontes 08-22-2024 Eosinophils/100 WBC (Bld) 2.6 % 0-[address] [facility] Erythrocyte distribution wid th ratioOrdered By: David Miramontes on 08-22-2024 Erythrocyte distribution width (RBC) [Ratio] 15.3 % High 11.6-14.[address] [facility] Erythrocyte distribution wid th standard deviationOrdered By: David Miramontes on 08-22-2024 Erythrocyte distribution width (RBC) [Ratio] 57.1 fl High 35.1-43.[address] [facility] Glomerular filtration rate ( GFR) estimation/1.73 sq m using serum, plasma, or whole bOrdered By: David Miramontes on 08-22-2024 GFR/1.73 sq M.predicted among non-blacks MDRD (S/P/Bld) [Vol rate/Area] 78 mL/min/{1.73_m2} >[address] [facility] Comment on above: mL/min/1.73m2 CKD-EP I Creatinine Equation (2020) Hematocrit Auto (Bld) [Volum e fraction]Ordered By: David Miramontes on 08-22-2024 Hematocrit (Bld) [Volume fraction] 41.1 % 40-[address] [facility] Hemoglobin measurementOrdere d By: David Miramontes on 08-22-2024 Hemoglobin (Bld) [Mass/Vol] 12.9 g/dL Low 13.0-16.[address] [facility] Immature granulocytes/100 WB C Auto (Bld)Ordered By: David Miramontes on 08-22-2024 Immature granulocytes/100 WBC (Bld) 0.600 % 0.0-0.[address] [facility] Comment on above: IG% - Immature Granu locytes (promyelocytes, myelocytes and metamyelocytes) > 1% indicates that a LEFT SHIFT is Present. Laboratory - Chemistry and C hemistry - challengeOrdered By: David Miramontes on 08-22-2024 AST [Catalytic activity/Vol] 34 U/L <[address] [facility] MCV (mean corpuscular volume ) determinationOrdered By: David Pinkamnatereza on 08-22-2024 MCV (RBC) [Entitic vol] 102.5 fL High 80-94 [facility] Mean corpuscular hemoglobin (MCH) determinationOrdered By: David Pinkamnatereza on 08-22-2024 MCH (RBC) [Entitic mass] 32.2 pg High 27.0-32.[address] [facility] Mean corpuscular hemoglobin concentration (MCHC) determinationOrdered By: David Miramontes on 08-22-2024 MCHC (RBC) [Mass/Vol] 31.4 g/dL Low 32-36 [facility] Mean platelet volume determi nationOrdered By: Frandyfeliciaingris Pinkamnatereza on 08-22-2024 Platelet mean volume (Bld) [Entitic vol] 11.4 fL 6.2-12.[address] [facility] Monocyte percentageOrdered B y: Daivd Miramontes on 08-22-2024 Monocytes/100 WBC (Bld) 10.0 % 0-10 [facility] Neutrophil percentageOrdered By: David Miramontes on 08-22-2024 Neutrophils/100 WBC (Bld) 68.5 % 47-[address] [facility] Nucleated red blood cell per centageOrdered By: Frandyfeliciaingris Pinkamnatereza on 08-22-2024 Nucleated RBC/100 WBC (Bld) [Ratio] 0 % 0-[address] [facility] Platelet countOrdered By: Mayra waynecarleen Pinkamnatereza on 08-22-2024 Platelets (Bld) [#/Vol] 170 10*3/uL 150-[address] [facility] Potassium measurement (mass/ volume)Ordered By: David Miramontes on 08-22-2024 Potassium (Unsp spec) [Mass/Vol] 3.8 mmol/L 3.3-5.[address] [facility] RBC Auto (Bld) [#/Vol]Ordere d By: David Miramontes on 08-22-2024 RBC (Bld) [#/Vol] 4.01 10*6/uL Low 4.6-6.2 [facility] Serum creatinine measurement (mass/volume)Ordered By: David Miramontes on 08-22-2024 Creatinine [Mass/Vol] 0.96 mg/dL 0.70-1.20 [facility] Serum globulin measurementOr dered By: David Miramontes on 08-22-2024 Globulin (S) [Mass/Vol] 2.7 g/dL 2.2-4.2 [facility] Serum glucose measurement (m ass/volume)Ordered By: David Miramontes on 08-22-2024 Glucose [Mass/Vol] 82 mg/dL 70-99 [facility] Serum or plasma alanine grant otransferase (ALT) measurementOrdered By: David Miramontes on 08-22-2024 ALT [Catalytic activity/Vol] 13 U/L <[address] [facility] Serum or plasma albumin siobhan urement (mass/volume)Ordered By: David Miramontes on 08-22-2024 Albumin [Mass/Vol] 3.5 g/dL 3.4-4.8 [facility] Serum or plasma albumin/glob ulin mass ratioOrdered By: David Miramontes on 08-22-2024 Albumin/Globulin [Mass ratio] 1.3 {ratio} 0.9-2.[address] [facility] Serum or plasma alkaline deven sphatase measurementOrdered By: David Miramontes on 08-22-2024 ALP [Catalytic activity/Vol] 106 U/L 40-[address] [facility] Serum or plasma calcium siobhan urement (mass/volume)Ordered By: David Miramontes on 08-22-2024 Calcium [Mass/Vol] 8.9 mg/dL 7.6-11.0 [facility] [place] Serum or plasma urea nitroge n measurement (mass/volume)Ordered By: David Miramontes on 08-22-2024 Urea nitrogen [Mass/Vol] 13 mg/dL 4-[address] [facility] Sodium levelOrdered By: Frandy carleen Kulwinder on 08-22-2024 Sodium [Moles/Vol] 142 mmol/L 133-145 [facility] [place] Total proteinOrdered By: Lgtereza bucioingris Miramontes on 08-22-2024 Protein [Mass/Vol] 6.2 g/dL 5.9-8.4 [facility] [place] White blood cell (WBC) count Ordered By: David Miramontes on 08-22-2024 WBC (Bld) [#/Vol] 7.3 10*3/uL 4.4-11.0 [facility] [place] Anion gap in Serum or Plasma Ordered By: David Miramontes on 08-02-2024 Anion gap [Moles/Vol] 11 mmol/L 5-15 [facility] BUN/creatinine ratioOrdered By: David Miramontes on 08-02-2024 Urea nitrogen/Creatinine [Mass ratio] 12.3 mg/mg 10-[address] [facility] Carbon dioxide, total [Moles /volume] in Central venous bloodOrdered By: David Miramontes on 08-02-2024 CO2 [Moles/Vol] 24.2 mmol/L 21.0-32.[address] [facility] Chloride assayOrdered By: Mayra waynecarleen Miramontes on 08-02-2024 Chloride [Moles/Vol] 105 mmol/L 98-108 [facility] Glomerular filtration rate ( GFR) estimation/1.73 sq m using serum, plasma, or whole bOrdered By: Mayradanay Miramontes on 08-02-2024 GFR/1.73 sq M.predicted among non-blacks MDRD (S/P/Bld) [Vol rate/Area] 73 mL/min/{1.73_m2} >[address] [facility] Comment on above: mL/min/1.73m2 CKD-EP I Creatinine Equation (2020) Potassium measurement (mass/ volume)Ordered By: David Miramontes on 08-02-2024 Potassium (Unsp spec) [Mass/Vol] 3.7 mmol/L 3.3-5.[address] [facility] Serum creatinine measurement (mass/volume)Ordered By: David Miramontes on 08-02-2024 Creatinine [Mass/Vol] 1.01 mg/dL 0.70-1.20 [facility] Serum glucose measurement (m ass/volume)Ordered By: David Miramontes on 08-02-2024 Glucose [Mass/Vol] 140 mg/dL High 70-99 [facility] [place] Serum or plasma calcium siobhan urement (mass/volume)Ordered By: David Miramontes on 08-02-2024 Calcium [Mass/Vol] 9.1 mg/dL 7.6-11.0 [facility] [place] Serum or plasma urea nitroge n measurement (mass/volume)Ordered By: David Miramontes on 08-02-2024 Urea nitrogen [Mass/Vol] 12 mg/dL 4-[address] [facility] Sodium levelOrdered By: Frandy chavezyonatan Kulwinder on 08-02-2024 Sodium [Moles/Vol] 141 mmol/L 133-145 [facility] [place] Absolute lymphocyte countOrd ered By: David Miramontes on 08-01-2024 Lymphocytes Auto (Unsp spec) [#/Vol] 1.39 10*3/uL 0.83-4.[address] [facility] Absolute neutrophil countOrd ered By: David Miramontes on 08-01-2024 Neutrophils (Bld) [#/Vol] 4.8 10*3/uL 2.0-7.[address] [facility] Automated lymphocyte count a s percentage of total leukocytesOrdered By: David Miramontes on 08-01-2024 Lymphocytes/100 WBC Auto (Unsp spec) 18.9 % Low 19-[address] [facility] Basophil percentageOrdered B y: David Miramontes on 08-01-2024 Basophils/100 WBC (Bld) 0.4 % 0-1 [facility] Eosinophil percentageOrdered By: David Miramontes on 08-01-2024 Eosinophils/100 WBC (Bld) 2.6 % 0-[address] [facility] Erythrocyte distribution wid th ratioOrdered By: David Miramontes on 08-01-2024 Erythrocyte distribution width (RBC) [Ratio] 15.5 % High 11.6-14.[address] [facility] Erythrocyte distribution wid th standard deviationOrdered By: David Miramontes on 08-01-2024 Erythrocyte distribution width (RBC) [Ratio] 57.9 fl High 35.1-43.[address] [facility] Hematocrit Auto (Bld) [Volum e fraction]Ordered By: David Miramontes on 08-01-2024 Hematocrit (Bld) [Volume fraction] 40.2 % 40-[address] [facility] Hemoglobin measurementOrdere d By: danay Miramontse on 08-01-2024 Hemoglobin (Bld) [Mass/Vol] 12.6 g/dL Low 13.0-16.[address] [facility] Immature granulocytes/100 WB C Auto (Bld)Ordered By: waynelesageingris Miramontes on 08-01-2024 Immature granulocytes/100 WBC (Bld) 0.400 % 0.0-0.[address] [facility] Comment on above: IG% - Immature Granu locytes (promyelocytes, myelocytes and metamyelocytes) > 1% indicates that a LEFT SHIFT is Present. MCV (mean corpuscular volume ) determinationOrdered By: David Miramontes on 08-01-2024 MCV (RBC) [Entitic vol] 100.8 fL High 80-94 [facility] Mean corpuscular hemoglobin (MCH) determinationOrdered By: David Miramontes on 08-01-2024 MCH (RBC) [Entitic mass] 31.6 pg 27.0-32.[address] [facility] Mean corpuscular hemoglobin concentration (MCHC) determinationOrdered By: waynelesageingris Miramontes on 08-01-2024 MCHC (RBC) [Mass/Vol] 31.3 g/dL Low 32-36 [facility] Mean platelet volume determi nationOrdered By: David Miramontes on 08-01-2024 Platelet mean volume (Bld) [Entitic vol] 11.8 fL 6.2-12.[address] [facility] Monocyte percentageOrdered B y: David Miramontes on 08-01-2024 Monocytes/100 WBC (Bld) 12.5 % High 0-10 [facility] Neutrophil percentageOrdered By: David Miramontes on 08-01-2024 Neutrophils/100 WBC (Bld) 65.2 % 47-[address] [facility] Nucleated red blood cell per centageOrdered By: David Miramontes on 08-01-2024 Nucleated RBC/100 WBC (Bld) [Ratio] 0 % 0-[address] [facility] Platelet countOrdered By: Mayra waynecarleen Miramontes on 08-01-2024 Platelets (Bld) [#/Vol] 182 10*3/uL 150-[address] [facility] RBC Auto (Bld) [#/Vol]Ordere d By: Frandyfeliciaingris Miramontes on 08-01-2024 RBC (Bld) [#/Vol] 3.99 10*6/uL Low 4.6-6.2 [facility] White blood cell (WBC) count Ordered By: David Miramontes on 08-01-2024 WBC (Bld) [#/Vol] 7.4 10*3/uL 4.4-11.0 [facility] [place] Absolute lymphocyte countOrd ered By: David Miramontes on 07-21-2024 Lymphocytes Auto (Unsp spec) [#/Vol] 1.21 10*3/uL 0.83-4.[address] [facility] Absolute neutrophil countOrd ered By: David Miramontes on 07-21-2024 Neutrophils (Bld) [#/Vol] 5.1 10*3/uL 2.0-7.[address] [facility] Anion gap in Serum or Plasma Ordered By: David Miramontes on 07-21-2024 Anion gap [Moles/Vol] 10 mmol/L 5-15 [facility] Automated lymphocyte count a s percentage of total leukocytesOrdered By: David Miramontes on 07-21-2024 Lymphocytes/100 WBC Auto (Unsp spec) 16.7 % Low 19-[address] [facility] BUN/creatinine ratioOrdered By: David Miramontes on 07-21-2024 Urea nitrogen/Creatinine [Mass ratio] 16.2 mg/mg 10-[address] [facility] Basophil percentageOrdered B y: David Miramontes on 07-21-2024 Basophils/100 WBC (Bld) 0.4 % 0-1 [facility] Carbon dioxide, total [Moles /volume] in Central venous bloodOrdered By: David Miramontes on 07-21-2024 CO2 [Moles/Vol] 25.5 mmol/L 21.0-32.[address] [facility] Chloride assayOrdered By: Mayra Miramontes on 07-21-2024 Chloride [Moles/Vol] 106 mmol/L 98-108 [facility] Eosinophil percentageOrdered By: danay Miramontes on 07-21-2024 Eosinophils/100 WBC (Bld) 1.4 % 0-[address] [facility] Erythrocyte distribution wid th ratioOrdered By: danay Miramontes on 07-21-2024 Erythrocyte distribution width (RBC) [Ratio] 15.4 % High 11.6-14.[address] [facility] Erythrocyte distribution wid th standard deviationOrdered By: waynelesageingris Miramontes on 07-21-2024 Erythrocyte distribution width (RBC) [Ratio] 57.9 fl High 35.1-43.[address] [facility] Glomerular filtration rate ( GFR) estimation/1.73 sq m using serum, plasma, or whole bOrdered By: David Miramontes on 07-21-2024 GFR/1.73 sq M.predicted among non-blacks MDRD (S/P/Bld) [Vol rate/Area] 67 mL/min/{1.73_m2} >[address] [facility] Comment on above: mL/min/1.73m2 CKD-EP I Creatinine Equation (2020) Hematocrit Auto (Bld) [Volum e fraction]Ordered By: David Miramontes on 07-21-2024 Hematocrit (Bld) [Volume fraction] 39.0 % Low 40-[address] [facility] Hemoglobin measurementOrdere d By: David Miramontes on 07-21-2024 Hemoglobin (Bld) [Mass/Vol] 12.4 g/dL Low 13.0-16.[address] [facility] Immature granulocytes/100 WB C Auto (Bld)Ordered By: David Miramontes on 07-21-2024 Immature granulocytes/100 WBC (Bld) 0.400 % 0.0-0.[address] [facility] Comment on above: IG% - Immature Granu locytes (promyelocytes, myelocytes and metamyelocytes) > 1% indicates that a LEFT SHIFT is Present. MCV (mean corpuscular volume ) determinationOrdered By: Mayrawaynefeliciaingris Pinkamnatereza on 07-21-2024 MCV (RBC) [Entitic vol] 101.0 fL High 80-94 [facility] Mean corpuscular hemoglobin (MCH) determinationOrdered By: [facility] Pink[facility]atere[facility] on 07-21-2024 MCH (RBC) [Entitic mass] 32.1 pg High 27.0-32.[address] [facility] Mean corpuscular hemoglobin concentration (MCHC) determinationOrdered By: waynelesageingris Pinkamnatereza on 07-21-2024 MCHC (RBC) [Mass/Vol] 31.8 g/dL Low 32-36 [facility] Mean platelet volume determi nationOrdered By: Mayrawaynefeliciaingris Pinkamnatereza on 07-21-2024 Platelet mean volume (Bld) [Entitic vol] 11.7 fL 6.2-12.[address] [facility] Monocyte percentageOrdered B y: David Joesphiman on 07-21-2024 Monocytes/100 WBC (Bld) 11.3 % High 0-10 [facility] Neutrophil percentageOrdered By: waynelesageingris Pinktereza on 07-21-2024 Neutrophils/100 WBC (Bld) 69.8 % 47-[address] [facility] Nucleated red blood cell per centageOrdered By: Maryawaynefeliciaingris Miramontes on 07-21-2024 Nucleated RBC/100 WBC (Bld) [Ratio] 0 % 0-[address] [facility] Platelet countOrdered By: danay Joesphiman on 07-21-2024 Platelets (Bld) [#/Vol] 172 10*3/uL 150-[address] [facility] Potassium measurement (mass/ volume)Ordered By: danay Miramontes on 07-21-2024 Potassium (Unsp spec) [Mass/Vol] 3.9 mmol/L 3.3-5.[address] [facility] RBC Auto (Bld) [#/Vol]Ordere d By: David Joesphiman on 07-21-2024 RBC (Bld) [#/Vol] 3.86 10*6/uL Low 4.6-6.2 [facility] Serum creatinine measurement (mass/volume)Ordered By: Mayradaany Pinkamnatereza on 07-21-2024 Creatinine [Mass/Vol] 1.08 mg/dL 0.70-1.20 [facility] Serum glucose measurement (m ass/volume)Ordered By: David Miramontes on 07-21-2024 Glucose [Mass/Vol] 90 mg/dL 70-99 [facility] [place] Serum or plasma calcium siobhan urement (mass/volume)Ordered By: Mayrawaynefeliciaingris Pinkamnatereza on 07-21-2024 Calcium [Mass/Vol] 9.1 mg/dL 7.6-11.0 [facility] [place] Serum or plasma urea nitroge n measurement (mass/volume)Ordered By: David Pinkamnatereza on 07-21-2024 Urea nitrogen [Mass/Vol] 18 mg/dL 4-[address] [facility] Sodium levelOrdered By: Frandy durant Joesphamnatereza on 07-21-2024 Sodium [Moles/Vol] 141 mmol/L 133-145 [facility] TSH DL <= 0.005 mIU/L QnOrde red By: David Joesphiman on 07-21-2024 TSH Qn 2.450 uIU/mL 0.300-4.[address] [facility] White blood cell (WBC) count Ordered By: David Miramontes on 07-21-2024 WBC (Bld) [#/Vol] 7.3 10*3/uL 4.4-11.0 [facility] BLADDER SCANon 07-14-2024 PVR 59 Cc [facility] BLADDER SCANOrdered By: Dayo Perez on 07-14-2024 [facility] CNOVon 07-14-2024 CNOV Office Visit (AKURFL) KEL DILLARD ([id number]) 1940 M Date Time Provider Department 07/14/24 9:00 AM DIANA ARANGO During your visit today, we recorded the following information about you: Diana Arango APRN.[facility] 07/14/2024 9:11 AM Signed [facility] Urological AND Kidney [facility] [place] [facility] NEW PATIENT UROLOGY VISIT 07/14/2024 8:51 AM [...] Physical (more content not included)... Normal [facility] CYTOLOGY NON-GYNon 5 AP DISCLAIMER Normal [facility] Comment on above: Order Comment: Speci men Type: URINE SPECIMEN Ordering Facility: [facility] Address: [address] [place] [address] Result Comment: Hussain blanco Developed Test (LDT) Disclaimer: Performance characteristics of immunohistochemical, immunofluorescent, and chromogenic in-situ hybridization tests have been determined by the performing laboratory within [facility]'s [facility] Lucas Pathology and Laboratory Medicine Department ([facility], [facility], [facility], [facility], [facility], or [facility]) in a manner consistent with CLIA requirements. One or more of these tests may not have been cleared or approved by the FDA. [facility] is regulated under CLIA as qualified to perform high-complexity testing. These tests are used for clinical purposes. These should not be regarded as investigational or for research. Positive and negative controls stain appropriately. Performed By: #### C [facility] #### [facility] CLIA [id number] [address] CASE REPORT Normal [facility] Comment on above: Order Comment: Speci men Type: URINE SPECIMEN Ordering Facility: [facility] Address: [address] [place] [address] Result Comment: [facility] Cytology Report Case: [id number] Authorizing Provider: Diana Arango Collected: 07/14/2024 09:01 AM MATTHEW Ochoa Ordering Location: [facility] Received: 07/17/2024 03:50 AM Pathologist: Rosy Cavazos MD Specimen: Urine, Midstream Performed By: #### C YTONON #### [facility] CLIA [id number] [address] CLINICAL HISTORY gross hematuria Normal [facility] Comment on above: Order Comment: Speci men Type: URINE SPECIMEN Ordering Facility: [facility] Address: [address] [place] [address] Performed By: #### C YTONON #### [facility] CLIA [id number] [address] FINAL DIAGNOSIS Normal [facility] Comment on above: Order Comment: Speci men Type: URINE SPECIMEN Ordering Facility: [facility] Address: [address] [place] [address] Result Comment: A - Urine, Midstream Negative for high-grade urothelial carcinoma. Blood. at 1046 EDT Performed By: #### C YTONON #### [facility] CLIA [id number] [address] [facility] FINAL PERFORMING LAB Normal [facility] Comment on above: Order Comment: Speci men Type: URINE SPECIMEN Ordering Facility: [facility] Address: [address] [place] [address] Result Comment: Tech nical component, aeronautical inspector screening performed at: [facility], [address] [place] [address] CLIA: [id number] Diagnostic interpretation performed at: [facility], [address] [address] CLIA# [id number] Apricot Washer: Josiah Ochoa MD Performed By: #### C YTONON #### [facility] CLIA [id number] [address] GROSS DESCRIPTION Normal [facility] Comment on above: Order Comment: Speci men Type: URINE SPECIMEN Ordering Facility: [facility] Address: [address] [place] [address] Result Comment: A. U rine, Midstream 7.5 cc cloudy yellow fluid. ThinPrep prepared. Performed By: #### C YTONON #### [facility] CLIA [id number] [address] UA DIP, URINE (POC)on 2024 BILIRUBIN UA (POCT) Negative Negative [facility] CLARITY UA (POCT) Clear [facility] COLOR UA (POCT) Yellow [facility] GLUCOSE UA (POCT) Negative Negative mg/dL [facility] Hemoglobin Ql (U) Trace-intact Abnormal Negative [facility] Interpretation and review of laboratory results Abnormal [facility] KETONE UA (POCT) Negative Negative mg/dL [facility] LEUKOCYTES U[facility] (POCT) Negative [facility] NITRITE UA (POCT) Negative Negative [facility] PH UA (POCT) 5.5 4.5 - 8.0 [facility] Protein Ql (U) 30 mg/dL Abnormal Negative [facility] SPECIFIC GRAVITY UA (POCT) 1.025 1.005 - 1.030 [facility] UROBILINOGEN UA (POCT) 0.2 Edbbie l E.U./dL [facility] Location:[facility], [address] [place] [address], [address] [place] [address] POINT OF CARE [facility] Serum or plasma uric acid me asurement (mass/volume)Ordered By: David Miramontes on 06-23-2024 Urate [Mass/Vol] 4.2 mg/dL 3.5-7.[address] [facility] Comment on above: The drugs N-Acetylcy steine and Metamizole may falsely depress this assay. Absolute lymphocyte countOrd ered By: David Guerratereza on 06-05-2024 Lymphocytes Auto (Unsp spec) [#/Vol] 1.05 10*3/uL 0.83-4.[address] [facility] Absolute neutrophil countOrd ered By: David Miramontes on 06-05-2024 Neutrophils (Bld) [#/Vol] 4.8 10*3/uL 2.0-7.[address] [facility] Anion gap in Serum or Plasma Ordered By: David Pinkamnatereza on 06-05-2024 Anion gap [Moles/Vol] 11 mmol/L 5-15 [facility] Automated lymphocyte count a s percentage of total leukocytesOrdered By: David Miramontes on 06-05-2024 Lymphocytes/100 WBC Auto (Unsp spec) 15.8 % Low 19-[address] [facility] BUN/creatinine ratioOrdered By: waynelesageingris Miramontes on 06-05-2024 Urea nitrogen/Creatinine [Mass ratio] 9.3 mg/mg Low 10-[address] [facility] Basophil percentageOrdered B y: Vickyingris Pinkamnatereza on 06-05-2024 Basophils/100 WBC (Bld) 1.1 % High 0-1 [facility] Carbon dioxide, total [Moles /volume] in Central venous bloodOrdered By: David Pinkamnatereza on 06-05-2024 CO2 [Moles/Vol] 26.8 mmol/L 21.0-32.[address] [facility] Chloride assayOrdered By: Mayra waynecarleen Miramontes on 06-05-2024 Chloride [Moles/Vol] 101 mmol/L 98-108 [facility] Eosinophil percentageOrdered By: Frandycarleen Pinkamnatereza on 06-05-2024 Eosinophils/100 WBC (Bld) 2.3 % 0-[address] [facility] Erythrocyte distribution wid th (RBC) [Ratio]Ordered By: Mayradanay Pinkamnatereza on 06-05-2024 Erythrocyte distribution width (RBC) [Entitic vol] 55.4 fL High 35.1-43.[address] [facility] Erythrocyte distribution wid th ratioOrdered By: danay Pinkamnatereza on 06-05-2024 Erythrocyte distribution width (RBC) [Ratio] 15.0 % High 11.6-14.[address] [facility] Erythrocyte distribution wid th standard deviationOrdered By: David Miramontes on 06-05-2024 Erythrocyte distribution width (RBC) [Ratio] 55.4 fl High 35.1-43.[address] [facility] GFR/1.73 sq M.predicted eleazar g non-blacks MDRD (S/P/Bld) [Vol rate/Area]Ordered By: David Miramontes on 06-05-2024 Estimated GFR (MDRD) Non-Af Amer 48 Low >[address] [facility] Comment on above: mL/min/1.73m2 CKD-EP I Creatinine Equation (2020) Glomerular filtration rate ( GFR) estimation/1.73 sq m using serum, plasma, or whole bOrdered By: David Miramontes on 06-05-2024 GFR/1.73 sq M.predicted among non-blacks MDRD (S/P/Bld) [Vol rate/Area] 48 mL/min/{1.73_m2} Low >[address] [facility] Comment on above: mL/min/1.73m2 CKD-EP I Creatinine Equation (2020) Hematocrit Auto (Bld) [Volum e fraction]Ordered By: David Miramontes on 06-05-2024 Hematocrit (Bld) [Volume fraction] 41.8 % 40-[address] [facility] Hemoglobin measurementOrdere d By: David Miramontes on 06-05-2024 Hemoglobin (Bld) [Mass/Vol] 13.3 g/dL 13.0-16.[address] [facility] Immature granulocytes/100 WB C Auto (Bld)Ordered By: David Miramontes on 06-05-2024 Immature granulocytes/100 WBC (Bld) 0.300 % 0.0-0.[address] [facility] Comment on above: IG% - Immature Granu locytes (promyelocytes, myelocytes and metamyelocytes) > 1% indicates that a LEFT SHIFT is Present. Lymphocytes Auto (Unsp spec) [#/Vol]Ordered By: danay Miramontes on 06-05-2024 Lymphocytes (Bld) [#/Vol] 1.05 10*3/uL 0.83-4.[address] [facility] Lymphocytes/100 WBC Auto (Un sp spec)Ordered By: David Miramontes on 06-05-2024 Lymphocytes/100 WBC (Bld) 15.8 % Low 19-[address] [facility] MCV (mean corpuscular volume ) determinationOrdered By: David Miramontes on 06-05-2024 MCV (RBC) [Entitic vol] 100.5 fL High 80-94 [facility] Mean corpuscular hemoglobin (MCH) determinationOrdered By: David Miramontes on 06-05-2024 MCH (RBC) [Entitic mass] 32.0 pg 27.0-32.[address] [facility] Mean corpuscular hemoglobin concentration (MCHC) determinationOrdered By: David Miramontes on 06-05-2024 MCHC (RBC) [Mass/Vol] 31.8 g/dL Low 32-36 [facility] Mean platelet volume determi nationOrdered By: David Miramontes on 06-05-2024 Platelet mean volume (Bld) [Entitic vol] 11.3 fL 6.2-12.[address] [facility] Monocyte percentageOrdered B y: David Miramontes on 06-05-2024 Monocytes/100 WBC (Bld) 8.9 % 0-10 [facility] Neutrophil percentageOrdered By: David Miramontes on 06-05-2024 Neutrophils/100 WBC (Bld) 71.6 % High 47-[address] [facility] Nucleated red blood cell per centageOrdered By: David Miramontes on 06-05-2024 Nucleated RBC/100 WBC (Bld) [Ratio] 0 % 0-[address] [facility] Platelet countOrdered By: Mayra Miramontes on 06-05-2024 Platelets (Bld) [#/Vol] 216 10*3/uL 150-[address] [facility] Potassium (Unsp spec) [Mass/ Vol]Ordered By: David Miramontes on 06-05-2024 Potassium [Moles/Vol] 3.9 mmol/L 3.3-5.1 [facility] Potassium measurement (mass/ volume)Ordered By: David Miramontes on 06-05-2024 Potassium (Unsp spec) [Mass/Vol] 3.9 mmol/L 3.3-5.[address] [facility] RBC Auto (Bld) [#/Vol]Ordere d By: David Miramontes on 06-05-2024 RBC (Bld) [#/Vol] 4.16 10*6/uL Low 4.6-6.2 [facility] Serum creatinine measurement (mass/volume)Ordered By: David Miramontes on 06-05-2024 Creatinine [Mass/Vol] 1.42 mg/dL High 0.70-1.20 [facility] Serum glucose measurement (m ass/volume)Ordered By: David Miramontes on 06-05-2024 Glucose [Mass/Vol] 85 mg/dL 70-99 [facility] Serum or plasma calcium siobhan urement (mass/volume)Ordered By: David Miramontes on 06-05-2024 Calcium [Mass/Vol] 9.0 mg/dL 7.6-11.0 [facility] Serum or plasma urea nitroge n measurement (mass/volume)Ordered By: David Miramontes on 06-05-2024 Urea nitrogen [Mass/Vol] 13 mg/dL 4-[address] [facility] Sodium levelOrdered By: Frandy delvalletereza Kulwinder on 06-05-2024 Sodium [Moles/Vol] 139 mmol/L 133-145 [facility] White blood cell (WBC) count Ordered By: David Miramontes on 06-05-2024 WBC (Bld) [#/Vol] 6.6 10*3/uL 4.4-11.0 [facility] Amorphous sediment detection in urine sediment by light microscopyOrdered By: David Miramontes on 05-30-2024 Amorphous sediment LM Ql (Urine sed) 1+ [facility] [facility] Ankle Brachial Indexon 05-30 Ankle Brachial Index [facility] [address] [place] [address] Ankle Brachial Index 05/30/24 0904 MR#: [id number] Acct: [id number] Name: GILMAKEL Angel Rep #: [id number] : 1940 84 From: Josiah Klein MD Attending Dr: Dr. David Miramontes MD Status: REG CLI Ordering Dr: David Miramontes MD Date: 05/30/24 Location: [facility] Sex: M C Admitted: Reason For [...] CC: Dr. David Miramontes MD Date Dictated: 05/30/2404 Date Transcribed: 05/30/241542 Superintendent Construction: Signed Normal [facility] Arterial study reportOrdered By: Josiah Klein on 05-30-2024 Noninvasive arteriosclerosis study report [facility] Cardi[facility] [address] [place] [address] Ankle Brachial Index 05/30/24 09 MR#: [id number] Acct: [id number] Name: KEL DILLARD Rep #:[id number] : 1940 84 From: Josiah Naranjo Attending Dr: Dr. David Miramontes MD Status: REG CLI Ordering Dr: David Miramontes MD Date: 05/30/24 Location: [facility] Sex: M C Admitted: Reason For [...] DAVID MIRAMONTES MD Performed By: Yasmine May Silvana, RDCS 05/30/24 1543 Date _ Josiah Klein MD CC: Dr. David Miramontes MD ~ Date Dictated: 05/30/24 0904 Date Transcribed: 05/30/24 154 Superintendent Construction: Signed [facility] Work Phone: Bilirubin Test strip Ql (U)O rdered By: David Miramontes on 05-30-2024 Bilirubin Ql (U) Negative Negative [facility] Epithelial cells.squamous LM Ql (Urine sed)Ordered By: David Miramontes on 05-30-2024 Epithelial cells.squamous LM.HPF (Urine sed) [#/Area] 0 /[HPF] 0-[address] [facility] Glucose Ql (U)Ordered By: Mayra Miramontes on 05-30-2024 Urine Glucose (UA) Normal mg/dl Normal [facility] Ketones Test strip Ql (U)Ord ered By: David Miramontes on 05-30-2024 Ketones Ql (U) Negative Negative [facility] Microscopic analysis of urin e for red blood cells (RBC)Ordered By: David Miramontes on 05-30-2024 Microscopic analysis of urine for red blood cells (RBC) > 100 SEEN /hpf 0-[address] [facility] Urine RBC > 100 SEEN /hpf 0-[address] [facility] Mucus LM Ql (Urine sed)Order ed By: David Miramontes on 05-30-2024 Mucus Ql (Urine sed) 0 SEEN /hpf [facility] Nitrite Test strip Ql (U)Ord ered By: David Miramontes on 05-30-2024 Nitrite Ql (U) Positive High Negative [facility] PSA, total screeningOrdered By: David Miramontes on 05-30-2024 Prostate Specific Antigen Screen 3.08 ng/mL 0.02-4.[address] [facility] Comment on above: This test [...] Protein Ql (U) 500 mg/dl High Negative [facility] Squamous epithelial cells de tection in urine sediment by light microscopyOrdered By: David Miramontes on 05-30-2024 Epithelial cells.squamous LM Ql (Urine sed) 0-5 SEEN /hpf 0-[address] [facility] Urine blood detectionOrdered By: David Miramontes on 05-30-2024 Urine Occult Blood 250 /ul High Negative [facility] Urine clarityOrdered By: Lg Miramontes on 05-30-2024 Clarity (U) Cloudy Clear [facility] Urine color determinationOrd ered By: David Miramontes on 05-30-2024 Color (U) Brown Yellow [facility] Urine cultureOrdered By: Lg Miramontes on 05-30-2024 Bacteria identified Cx Nom (U) Proteus mirabilis Abnormal [facility] Urine glucose detectionOrder ed By: David Miramontes on 05-30-2024 Glucose Ql (U) Normal mg/dl Normal [facility] Urine leukocyte esterase det ection by dipstickOrdered By: David Miramontes on 05-30-2024 Leukocyte esterase Test strip Ql (U) 500 /ul High Negative [facility] Urine pHOrdered By: Leo Miramontes on 05-30-2024 pH (U) 6.5 [pH] 5.0 - 8.[address] [facility] Urine sediment bacteria coun t by microscopy (number/high power field)Ordered By: David Miramontes on 05-30-2024 Bacteria LM.HPF (Urine sed) [#/Area] 2 /[HPF] None Seen [facility] Urine specific gravity measu rementOrdered By: aDvid Miramontes on 05-30-2024 Specific gravity (U) [Rel density] 1.015 1.002-1.[address] [facility] Urine urobilinogen measureme ntOrdered By: David Miramontes on 05-30-2024 Urobilinogen Ql (U) 1 mg/dl High Normal [facility] Urobilinogen Ql (U)Ordered B y: David Miramontes on 05-30-2024 Urobilinogen (U) [Mass/Vol] 1 mg/dL High Normal [facility] White blood cell countOrdere d By: David Miramontes on 05-30-2024 Urine WBC 50-100 SEEN /hpf 0-[address] [facility] White blood cell count 50-100 SEEN /hpf 0-[address] [facility] Absolute lymphocyte countOrd ered By: David Miramontes on 05-22-2024 Lymphocytes Auto (Unsp spec) [#/Vol] 1.26 10*3/uL 0.83-4.[address] [facility] Absolute neutrophil countOrd ered By: David Miramontes on 05-22-2024 Neutrophils (Bld) [#/Vol] 6.5 10*3/uL 2.0-7.[address] [facility] Anion gap in Serum or Plasma Ordered By: David Miramontes on 05-22-2024 Anion gap [Moles/Vol] 13 mmol/L 5-15 [facility] Automated lymphocyte count a s percentage of total leukocytesOrdered By: Mayrawaynecarleen Joesphamnatereza on 05-22-2024 Lymphocytes/100 WBC Auto (Unsp spec) 14.0 % Low 19-[address] [facility] BUN/creatinine ratioOrdered By: Mayrawaynecarleen Joesphamnatereza on 05-22-2024 Urea nitrogen/Creatinine [Mass ratio] 7.8 mg/mg Low 10-[address] [facility] Basophil percentageOrdered B y: David Joesphamnatereza on 05-22-2024 Basophils/100 WBC (Bld) 0.4 % 0-1 [facility] Bilirubin, totalOrdered By: David Pinkamnatereza on 05-22-2024 Bilirubin [Mass/Vol] 0.44 mg/dL 0.00-1.30 [facility] Carbon dioxide, total [Moles /volume] in Central venous bloodOrdered By: Frandyfeliciaingris Pinkamnatereza on 05-22-2024 CO2 [Moles/Vol] 24.8 mmol/L 21.0-32.[address] [facility] Chloride assayOrdered By: Mayra danay Joesphamnatereza on 05-22-2024 Chloride [Moles/Vol] 104 mmol/L 98-108 [facility] Eosinophil percentageOrdered By: David Joesphamnae on 05-22-2024 Eosinophils/100 WBC (Bld) 1.0 % 0-[address] [facility] Erythrocyte distribution wid th (RBC) [Ratio]Ordered By: Frandycarleen Joeshpamnatereza on 05-22-2024 Erythrocyte distribution width (RBC) [Entitic vol] 54.3 fL High 35.1-43.[address] [facility] Erythrocyte distribution wid th ratioOrdered By: Frandycarleen Joesphamnae on 05-22-2024 Erythrocyte distribution width (RBC) [Ratio] 15.1 % High 11.6-14.[address] [facility] Erythrocyte distribution wid th standard deviationOrdered By: Frandycarleen Joesphamnae on 05-22-2024 Erythrocyte distribution width (RBC) [Ratio] 54.3 fl High 35.1-43.[address] [facility] GFR/1.73 sq M.predicted eleazar g non-blacks MDRD (S/P/Bld) [Vol rate/Area]Ordered By: David Miramontes on 05-22-2024 Estimated GFR (MDRD) Non-Af Amer 33 Low >[address] [facility] Comment on above: mL/min/1.73m2 CKD-EP I Creatinine Equation (2020) Glomerular filtration rate ( GFR) estimation/1.73 sq m using serum, plasma, or whole bOrdered By: David Miramontes on 05-22-2024 GFR/1.73 sq M.predicted among non-blacks MDRD (S/P/Bld) [Vol rate/Area] 33 mL/min/{1.73_m2} Low >[address] [facility] Comment on above: mL/min/1.73m2 CKD-EP I Creatinine Equation (2020) Hematocrit Auto (Bld) [Volum e fraction]Ordered By: David Miramontes on 05-22-2024 Hematocrit (Bld) [Volume fraction] 40.5 % 40-[address] [facility] Hemoglobin measurementOrdere d By: David Miramontes on 05-22-2024 Hemoglobin (Bld) [Mass/Vol] 12.9 g/dL Low 13.0-16.[address] [facility] Immature granulocytes/100 WB C Auto (Bld)Ordered By: David Miramontes on 05-22-2024 Immature granulocytes/100 WBC (Bld) 0.300 % 0.0-0.[address] [facility] Comment on above: IG% - Immature Granu locytes (promyelocytes, myelocytes and metamyelocytes) > 1% indicates that a LEFT SHIFT is Present. Laboratory - Chemistry and C hemistry - challengeOrdered By: David Miramontes on 05-22-2024 AST [Catalytic activity/Vol] 33 U/L <[address] [facility] Lymphocytes Auto (Unsp spec) [#/Vol]Ordered By: David Miramontes on 05-22-2024 Lymphocytes (Bld) [#/Vol] 1.26 10*3/uL 0.83-4.[address] [facility] Lymphocytes/100 WBC Auto (Un sp spec)Ordered By: David Miramontes on 05-22-2024 Lymphocytes/100 WBC (Bld) 14.0 % Low 19-[address] [facility] MCV (mean corpuscular volume ) determinationOrdered By: David Miramontes on 05-22-2024 MCV (RBC) [Entitic vol] 99.3 fL High 80-94 [facility] Mean corpuscular hemoglobin (MCH) determinationOrdered By: David Miramontes on 05-22-2024 MCH (RBC) [Entitic mass] 31.6 pg 27.0-32.[address] [facility] Mean corpuscular hemoglobin concentration (MCHC) determinationOrdered By: David Miramontes on 05-22-2024 MCHC (RBC) [Mass/Vol] 31.9 g/dL Low 32-36 [facility] Mean platelet volume determi nationOrdered By: David Miramontes on 05-22-2024 Platelet mean volume (Bld) [Entitic vol] 12.1 fL High 6.2-12.[address] [facility] Monocyte percentageOrdered B y: David Miramontes on 05-22-2024 Monocytes/100 WBC (Bld) 11.8 % High 0-10 [facility] Neutrophil percentageOrdered By: David Miramontes on 05-22-2024 Neutrophils/100 WBC (Bld) 72.5 % High 47-[address] [facility] Nucleated red blood cell per centageOrdered By: David Miramontes on 05-22-2024 Nucleated RBC/100 WBC (Bld) [Ratio] 0 % 0-[address] [facility] Platelet countOrdered By: Mayra Miramontes on 05-22-2024 Platelets (Bld) [#/Vol] 179 10*3/uL 150-[address] [facility] Potassium (Unsp spec) [Mass/ Vol]Ordered By: David Miramontes on 05-22-2024 Potassium [Moles/Vol] 3.3 mmol/L 3.3-5.1 [facility] Potassium measurement (mass/ volume)Ordered By: David Miramontes on 05-22-2024 Potassium (Unsp spec) [Mass/Vol] 3.3 mmol/L 3.3-5.[address] [facility] RBC Auto (Bld) [#/Vol]Ordere d By: David Miramontes on 05-22-2024 RBC (Bld) [#/Vol] 4.08 10*6/uL Low 4.6-6.2 [facility] Serum creatinine measurement (mass/volume)Ordered By: David Miramontes on 05-22-2024 Creatinine [Mass/Vol] 1.94 mg/dL High 0.70-1.20 [facility] Serum globulin measurementOr dered By: David Miramontes on 05-22-2024 Globulin (S) [Mass/Vol] 3.2 g/dL 2.2-4.2 [facility] Serum glucose measurement (m ass/volume)Ordered By: David Miramontes on 05-22-2024 Glucose [Mass/Vol] 112 mg/dL High 70-99 [facility] Serum or plasma alanine grant otransferase (ALT) measurementOrdered By: David Miramontes on 05-22-2024 ALT [Catalytic activity/Vol] 8 U/L <[address] [facility] Serum or plasma albumin siobhan urement (mass/volume)Ordered By: David Miramontes on 05-22-2024 Albumin [Mass/Vol] 3.5 g/dL 3.4-4.8 [facility] Serum or plasma albumin/glob ulin mass ratioOrdered By: David Miramontes on 05-22-2024 Albumin/Globulin [Mass ratio] 1.1 {ratio} 0.9-2.[address] [facility] Serum or plasma alkaline deven sphatase measurementOrdered By: David Miramontes on 05-22-2024 ALP [Catalytic activity/Vol] 71 U/L 40-[address] [facility] Serum or plasma calcium siobhan urement (mass/volume)Ordered By: David Miramontes on 05-22-2024 Calcium [Mass/Vol] 8.8 mg/dL 7.6-11.0 [facility] Serum or plasma urea nitroge n measurement (mass/volume)Ordered By: David Miramontes on 05-22-2024 Urea nitrogen [Mass/Vol] 15 mg/dL 4-19 [facility] Sodium levelOrdered By: Frandy Miramontes on 05-22-2024 Sodium [Moles/Vol] 141 mmol/L 133-145 [facility] Total proteinOrdered By: Lg Miramontes on 05-22-2024 Protein [Mass/Vol] 6.7 g/dL 5.9-8.4 [facility] White blood cell (WBC) count Ordered By: David Miramontes on 05-22-2024 WBC (Bld) [#/Vol] 9.0 10*3/uL 4.4-11.0 [facility] Bilirubin Test strip Ql (U)O rdered By: Daivd Miramontes on 04-17-2024 Bilirubin Ql (U) 1 mg/dL High Negative [facility] Comment on above: COLOR OF URINE MAY A FFECT DIPSTICK RESULTS. Glucose Ql (U)Ordered By: Mayra Miramontes on 04-17-2024 Urine Glucose (UA) Normal mg/dl Normal [facility] Ketones Test strip Ql (U)Ord ered By: David Miramontes on 04-17-2024 Ketones Ql (U) 5 mg/dl High Negative [facility] Nitrite Test strip Ql (U)Ord ered By: David Miramontes on 04-17-2024 Nitrite Ql (U) Negative Negative [facility] Protein Test strip Ql (U)Ord ered By: David Miramontes on 04-17-2024 Protein Ql (U) 100 mg/dl High Negative [facility] Urine blood detectionOrdered By: David Miramontes on 04-17-2024 Urine Occult Blood 250 /ul High Negative [facility] Urine clarityOrdered By: Lg Miramontes on 04-17-2024 Clarity (U) Turbid Clear [facility] Urine color determinationOrd ered By: David Miramontes on 04-17-2024 Color (U) Kristina Yellow [facility] Urine cultureOrdered By: Lg Miramontes on 04-17-2024 Bacteria identified Cx Nom (U) Proteus mirabilis Abnormal [facility] Urine glucose detectionOrder ed By: David Miramontes on 04-17-2024 Glucose Ql (U) Normal mg/dl Normal [facility] Urine leukocyte esterase det ection by dipstickOrdered By: David Miramontes on 04-17-2024 Leukocyte esterase Test strip Ql (U) 100 /ul High Negative [facility] Urine pHOrdered By: Leo Miramontes on 04-17-2024 pH (U) 5.0 [pH] 5.0 - 8.[address] [facility] Urine specific gravity measu rementOrdered By: David Miramontes on 04-17-2024 Specific gravity (U) [Rel density] 1.025 1.002-1.[address] [facility] Urine urobilinogen measureme ntOrdered By: David Miramontes on 04-17-2024 Urobilinogen Ql (U) Normal mg/dl Normal [facility] Urobilinogen Ql (U)Ordered B y: David Miramontes on 04-17-2024 Urine Urobilinogen Normal mg/dl Normal [facility] Absolute lymphocyte countOrd ered By: David Miramontes on 04-13-2024 Lymphocytes Auto (Unsp spec) [#/Vol] 0.98 10*3/uL 0.83-4.[address] [facility] Absolute neutrophil countOrd ered By: David Miramontes on 04-13-2024 Neutrophils (Bld) [#/Vol] 7.0 10*3/uL 2.0-7.[address] [facility] Automated lymphocyte count a s percentage of total leukocytesOrdered By: David Miramontes on 04-13-2024 Lymphocytes/100 WBC Auto (Unsp spec) 11.0 % Low 19-[address] [facility] Basophil percentageOrdered B y: David Miramontes on 04-13-2024 Basophils/100 WBC (Bld) 0.2 % 0-1 [facility] Eosinophil percentageOrdered By: David Miramontes on 04-13-2024 Eosinophils/100 WBC (Bld) 1.2 % 0-[address] [facility] Erythrocyte distribution wid th (RBC) [Ratio]Ordered By: David Miramontes on 04-13-2024 Erythrocyte distribution width (RBC) [Entitic vol] 52.6 fL High 35.1-43.[address] [facility] Erythrocyte distribution wid th ratioOrdered By: David Miramontes on 04-13-2024 Erythrocyte distribution width (RBC) [Ratio] 14.6 % 11.6-14.[address] [facility] Erythrocyte distribution wid th standard deviationOrdered By: danay Miramontes on 04-13-2024 Erythrocyte distribution width (RBC) [Ratio] 52.6 fl High 35.1-43.[address] [facility] Hematocrit Auto (Bld) [Volum e fraction]Ordered By: [facility] on 04-13-2024 Hematocrit (Bld) [Volume fraction] 47.5 % 40-[address] [facility] Hemoglobin measurementOrdere d By: waynelesageingris Guerratereza on 04-13-2024 Hemoglobin (Bld) [Mass/Vol] 15.1 g/dL 13.0-16.[address] [facility] Immature granulocytes/100 WB C Auto (Bld)Ordered By: danay Joesphamnatereza on 04-13-2024 Immature granulocytes/100 WBC (Bld) 0.300 % 0.0-0.[address] [facility] Comment on above: IG% - Immature Granu locytes (promyelocytes, myelocytes and metamyelocytes) > 1% indicates that a LEFT SHIFT is Present. Lymphocytes Auto (Unsp spec) [#/Vol]Ordered By: waynelesageingris Pinkamnatereza on 04-13-2024 Lymphocytes (Bld) [#/Vol] 0.98 10*3/uL 0.83-4.[address] [facility] Lymphocytes/100 WBC Auto (Un sp spec)Ordered By: danay Guerratereza on 04-13-2024 Lymphocytes/100 WBC (Bld) 11.0 % Low 19-[address] [facility] MCV (mean corpuscular volume ) determinationOrdered By: David Guerratereza on 04-13-2024 MCV (RBC) [Entitic vol] 98.3 fL High 80-94 [facility] Mean corpuscular hemoglobin (MCH) determinationOrdered By: waynelesageingris Joesphamnatereza on 04-13-2024 MCH (RBC) [Entitic mass] 31.3 pg 27.0-32.[address] [facility] Mean corpuscular hemoglobin concentration (MCHC) determinationOrdered By: David Miramontes on 04-13-2024 MCHC (RBC) [Mass/Vol] 31.8 g/dL Low 32-36 [facility] Mean platelet volume determi nationOrdered By: David Miramontes on 04-13-2024 Platelet mean volume (Bld) [Entitic vol] 12.2 fL High 6.2-12.[address] [facility] Monocyte percentageOrdered B y: David Miramontes on 04-13-2024 Monocytes/100 WBC (Bld) 9.3 % 0-10 [facility] Neutrophil percentageOrdered By: David Miramontes on 04-13-2024 Neutrophils/100 WBC (Bld) 78.0 % High 47-[address] [facility] Nucleated red blood cell per centageOrdered By: David Miramontes on 04-13-2024 Nucleated RBC/100 WBC (Bld) [Ratio] 0 % 0-[address] [facility] Platelet countOrdered By: Mayra waynecarleen Miramontes on 04-13-2024 Platelets (Bld) [#/Vol] 160 10*3/uL 150-[address] [facility] RBC Auto (Bld) [#/Vol]Ordere d By: David Miramontes on 04-13-2024 RBC (Bld) [#/Vol] 4.83 10*6/uL 4.6-6.2 [facility] Serum or plasma uric acid me asurement (mass/volume)Ordered By: David Miramontes on 04-13-2024 Urate [Mass/Vol] 7.3 mg/dL High 3.5-7.[address] [facility] Comment on above: The drugs N-Acetylcy steine and Metamizole may falsely depress this assay. White blood cell (WBC) count Ordered By: David Miramontes on 04-13-2024 WBC (Bld) [#/Vol] 8.9 10*3/uL 4.4-11.0 [facility] Bilirubin Test strip Ql (U)O rdered By: David Miramontes on 04-07-2024 Bilirubin Ql (U) Negative Negative [facility] Blood urea nitrogen (BUN)/cr eatinine ratioOrdered By: David Miraomntes on 04-07-2024 Urea nitrogen/Creatinine [Mass ratio] 15.7 mg/mg 10-[address] [facility] Carbon dioxide measurementOr dered By: David Miramontes on 04-07-2024 CO2 [Moles/Vol] 27.0 mmol/L 21.0-32.[address] [facility] Chloride measurementOrdered By: David Miramontes on 04-07-2024 Chloride [Moles/Vol] 107 mmol/L 98-107 [facility] Estimated glomerular filtrat ion rate (GFR) AmericanOrdered By: David Miramontes on 04-07-2024 Estimated GFR (MDRD) Amer 69 mL/min >[address] [facility] Comment on above: GFR Calc Glomerular filtration rate ( GFR) estimationOrdered By: David Miramontes on 04-07-2024 Estimated GFR (MDRD) Non-Af Amer 57 mL/min Low >[address] [facility] Comment on above: Non- GFR Calc GFR/1.73 sq M.predicted among non-blacks MDRD (S/P/Bld) [Vol rate/Area] 57 mL/min/{1.73_m2} Low >[address] [facility] Comment on above: Non- GFR Calc Glucose Ql (U)Ordered By: Mayra Miramontes on 04-07-2024 Urine Glucose (UA) Normal mg/dl Normal [facility] Glucose measurementOrdered B y: David Miramontes on 04-07-2024 Glucose [Mass/Vol] 80 mg/dL 74-106 [facility] Ketones Test strip Ql (U)Ord ered By: David Miramontes on 04-07-2024 Ketones Ql (U) Negative Negative [facility] Nitrite Test strip Ql (U)Ord ered By: David Miramontes on 04-07-2024 Nitrite Ql (U) Negative Negative [facility] Potassium measurementOrdered By: David Miramontes on 04-07-2024 Potassium [Moles/Vol] 3.8 mmol/L 3.5-5.1 [facility] Comment on above: Slight Hemolysis, Re sult may be falsely increased. Protein Test strip Ql (U)Ord ered By: David Miramontes on 04-07-2024 Protein Ql (U) 30 mg/dl High Negative [facility] Serum anion gap measurementO rdered By: David Miramontes on 04-07-2024 Anion gap [Moles/Vol] 9 mmol/L 5-15 [facility] Serum or plasma calcium siobhan urement (mass/volume)Ordered By: David Miramontes on 04-07-2024 Calcium [Mass/Vol] 8.9 mg/dL 8.5-10.1 [facility] Serum or plasma creatinine m easurement (mass/volume)Ordered By: David Miramontes on 04-07-2024 Creatinine [Mass/Vol] 1.27 mg/dL 0.70-1.30 [facility] Comment on above: The validity of the calculated GFR & GFRAA in patients over 70 years has not been determined. Clinical correlation is essential. Serum or plasma urea nitroge n measurement (mass/volume)Ordered By: David Miramontes on 04-07-2024 Urea nitrogen [Mass/Vol] 20 mg/dL High 7-[address] [facility] Serum or plasma uric acid me asurement (mass/volume)Ordered By: David Miramontes on 04-07-2024 Urate [Mass/Vol] 7.7 mg/dL High 3.5-7.[address] [facility] Comment on above: The drugs N-Acetylcy steine and Metamizole may falsely depress this assay. Sodium levelOrdered By: Frandy Miramontes on 04-07-2024 Sodium [Moles/Vol] 143 mmol/L 136-145 [facility] Urine blood detectionOrdered By: David Miramontes on 04-07-2024 Urine Occult Blood 250 /ul High Negative [facility] Urine clarityOrdered By: Lg Miramontes on 04-07-2024 Clarity (U) Clear Clear [facility] Urine color determinationOrd ered By: David Miramontes on 04-07-2024 Color (U) Straw Yellow [facility] Urine cultureOrdered By: Lg Miramontes on 04-07-2024 Bacteria identified Cx Nom (U) Negative Abnormal [facility] Urine glucose detectionOrder ed By: David Miramontes on 04-07-2024 Glucose Ql (U) Normal mg/dl Normal [facility] Urine leukocyte esterase det ection by dipstickOrdered By: David Miramontes on 04-07-2024 Leukocyte esterase Test strip Ql (U) 25 /ul High Negative [facility] Urine pHOrdered By: Leo Miramontes on 04-07-2024 pH (U) 6.5 [pH] 5.0 - 8.[address] [facility] Urine specific gravity measu rementOrdered By: David Miramontes on 04-07-2024 Specific gravity (U) [Rel density] 1.005 1.002-1.[address] [facility] Urine urobilinogen measureme ntOrdered By: David Miramontes on 04-07-2024 Urobilinogen Ql (U) Normal mg/dl Normal [facility] Urobilinogen Ql (U)Ordered B y: David Miramontes on 04-07-2024 Urine Urobilinogen Normal mg/dl Normal [facility] Absolute lymphocyte countOrd ered By: David Miramontes on 04-04-2024 Lymphocytes Auto (Unsp spec) [#/Vol] 0.82 10*3/uL Low 0.83-4.[address] [facility] Absolute neutrophil countOrd ered By: David Miramontes on 04-04-2024 Neutrophils (Bld) [#/Vol] 11.6 10*3/uL High 2.0-7.[address] [facility] Automated lymphocyte count a s percentage of total leukocytesOrdered By: David Miramontes on 04-04-2024 Lymphocytes/100 WBC Auto (Unsp spec) 5.9 % Low 19-[address] [facility] Basophil percentageOrdered B y: David Miramontes on 04-04-2024 Basophils/100 WBC (Bld) 0.2 % 0-1 [facility] Blood urea nitrogen (BUN)/cr eatinine ratioOrdered By: David Miramontes on 04-04-2024 Urea nitrogen/Creatinine [Mass ratio] 9.6 mg/mg Low 10-[address] [facility] Carbon dioxide measurementOr dered By: David Miramontes on 04-04-2024 CO2 [Moles/Vol] 26.0 mmol/L 21.0-32.[address] [facility] Chloride measurementOrdered By: David Miramontes on 04-04-2024 Chloride [Moles/Vol] 105 mmol/L 98-107 [facility] Eosinophil percentageOrdered By: David Miramontes on 04-04-2024 Eosinophils/100 WBC (Bld) 0.0 % 0-[address] [facility] Erythrocyte distribution wid th (RBC) [Ratio]Ordered By: David Miramontes on 04-04-2024 Erythrocyte distribution width (RBC) [Entitic vol] 55.2 fL High 35.1-43.[address] [facility] Erythrocyte distribution wid th ratioOrdered By: David Miramontes on 04-04-2024 Erythrocyte distribution width (RBC) [Ratio] 15.2 % High 11.6-14.[address] [facility] Erythrocyte distribution wid th standard deviationOrdered By: waynelesageingris Miramontes on 04-04-2024 Erythrocyte distribution width (RBC) [Ratio] 55.2 fl High 35.1-43.[address] [facility] Estimated glomerular filtrat ion rate (GFR) AmericanOrdered By: David Miramontes on 04-04-2024 Estimated GFR (MDRD) Amer 47 mL/min Low >[address] [facility] Comment on above: GFR Calc Glomerular filtration rate ( GFR) estimationOrdered By: David Miramontes on 04-04-2024 Estimated GFR (MDRD) Non-Af Amer 39 mL/min Low >[address] [facility] Comment on above: Non- GFR Calc GFR/1.73 sq M.predicted among non-blacks MDRD (S/P/Bld) [Vol rate/Area] 39 mL/min/{1.73_m2} Low >[address] [facility] Comment on above: Non- GFR Calc Glucose measurementOrdered B y: Mayrawaynefeliciaingris Miramontes on 04-04-2024 Glucose [Mass/Vol] 119 mg/dL High 74-106 [facility] Comment on above: Fasting Glucose resu lt from 100 to 125 mg/dL suggests IMPAIRED HOMEOSTASIS per A.D.A. criteria. Hematocrit Auto (Bld) [Volum e fraction]Ordered By: David Miramontes on 04-04-2024 Hematocrit (Bld) [Volume fraction] 49.2 % 40-[address] [facility] Hemoglobin measurementOrdere d By: David Miramontes on 04-04-2024 Hemoglobin (Bld) [Mass/Vol] 15.9 g/dL 13.0-16.[address] [facility] Immature granulocytes/100 WB C Auto (Bld)Ordered By: danay Miramontes on 04-04-2024 Immature granulocytes/100 WBC (Bld) 0.500 % 0.0-0.[address] [facility] Comment on above: IG% - Immature Granu locytes (promyelocytes, myelocytes and metamyelocytes) > 1% indicates that a LEFT SHIFT is Present. Lymphocytes Auto (Unsp spec) [#/Vol]Ordered By: David Miramontes on 04-04-2024 Lymphocytes (Bld) [#/Vol] 0.82 10*3/uL Low 0.83-4.[address] [facility] Lymphocytes/100 WBC Auto (Un sp spec)Ordered By: David Miramontes on 04-04-2024 Lymphocytes/100 WBC (Bld) 5.9 % Low 19-[address] [facility] MCV (mean corpuscular volume ) determinationOrdered By: David Miramontes on 04-04-2024 MCV (RBC) [Entitic vol] 98.4 fL High 80-94 [facility] Mean corpuscular hemoglobin (MCH) determinationOrdered By: David Miramontes on 04-04-2024 MCH (RBC) [Entitic mass] 31.8 pg 27.0-32.[address] [facility] Mean corpuscular hemoglobin concentration (MCHC) determinationOrdered By: David Miramontes on 04-04-2024 MCHC (RBC) [Mass/Vol] 32.3 g/dL 32-36 [facility] Mean platelet volume determi nationOrdered By: David Miramontes on 04-04-2024 Platelet mean volume (Bld) [Entitic vol] 12.5 fL High 6.2-12.[address] [facility] Monocyte percentageOrdered B y: David Miramontes on 04-04-2024 Monocytes/100 WBC (Bld) 9.9 % 0-10 [facility] Neutrophil percentageOrdered By: David Miramontes on 04-04-2024 Neutrophils/100 WBC (Bld) 83.5 % High 47-[address] [facility] Nucleated red blood cell per centageOrdered By: David Miramontes on 04-04-2024 Nucleated RBC/100 WBC (Bld) [Ratio] 0 % 0-[address] [facility] Platelet countOrdered By: Mayra Miramontes on 04-04-2024 Platelets (Bld) [#/Vol] 209 10*3/uL 150-[address] [facility] Potassium measurementOrdered By: David Miramontes on 04-04-2024 Potassium [Moles/Vol] 4.2 mmol/L 3.5-5.1 [facility] Comment on above: Slight Hemolysis, Re sult may be falsely increased. RBC Auto (Bld) [#/Vol]Ordere d By: David Miramontes on 04-04-2024 RBC (Bld) [#/Vol] 5.00 10*6/uL 4.6-6.2 [facility] Serum anion gap measurementO rdered By: David Miramontes on 04-04-2024 Anion gap [Moles/Vol] 8 mmol/L 5-15 [facility] Serum or plasma calcium siobhan urement (mass/volume)Ordered By: David Miramontes on 04-04-2024 Calcium [Mass/Vol] 9.6 mg/dL 8.5-10.1 [facility] Serum or plasma creatinine m easurement (mass/volume)Ordered By: David Miramontes on 02-04-2025 Creatinine [Mass/Vol] 1.77 mg/dL High 0.70-1.30 [facility] Comment on above: The validity of the calculated GFR & GFRAA in patients over 70 years has not been determined. Clinical correlation is essential. Serum or plasma urea nitroge n measurement (mass/volume)Ordered By: danay Miramontes on 04-04-2024 Urea nitrogen [Mass/Vol] 17 mg/dL 7-[address] [facility] Sodium levelOrdered By: Mayra carleen Joesphamnatereza on 04-04-2024 Sodium [Moles/Vol] 139 mmol/L 136-145 [facility] White blood cell (WBC) count Or[facility]: [facility] on 04-04-2024 WBC (Bld) [#/Vol] 13.9 10*3/uL High 4.4-11.0 [facility] Absolute lymphocyte countOrd ered By: [facility] on 04-06-2023 Lymphocytes Auto (Unsp spec) [#/Vol] 1.24 10*3/uL 0.83-4.[address] [facility] Automated lymphocyte count a s percentage of total leukocytesOrdered By: [facility] Guerratere[facility] on 04-06-2023 Lymphocytes/100 WBC Auto (Unsp spec) 18.7 % 19-[address] [facility] Basophil percentageOrdered B y: David Miramontes on 04-06-2023 Basophils/100 WBC (Bld) 0.5 % 0-1 [facility] Chloride [Moles/Vol] 109 mmol/L 98-107 [facility] Eosinophils/100 WBC (Bld) 1.7 % 0-[address] [facility] Glucose [Mass/Vol] 90 mg/dL 74-106 [facility] Hemoglobin (Bld) [Mass/Vol] 15.4 g/dL 13.0-16.[address] [facility] Monocytes/100 WBC (Bld) 9.4 % 0-10 [facility] Neutrophils (Bld) [#/Vol] 4.6 10*3/uL 2.0-7.[address] [facility] Neutrophils/100 WBC (Bld) 69.2 % 47-[address] [facility] Potassium [Moles/Vol] 3.7 mmol/L 3.5-5.1 [facility] Sodium [Moles/Vol] 141 mmol/L 136-145 [facility] WBC (Bld) [#/Vol] 6.6 10*3/uL 4.4-11.0 [facility] Determination of erythrocyte mean corpuscular volume (MCV)Ordered By: David Miramontes on 04-06-2023 MCV (RBC) [Entitic vol] 98.2 fL 80-94 [facility] Erythrocyte distribution wid th ratioOrdered By: waynelesageingris Miramontes on 04-06-2023 Erythrocyte distribution width (RBC) [Ratio] 14.4 % 11.6-14.[address] [facility] Erythrocyte distribution wid th standard deviationOrdered By: Frandylesageingris Miramontes on 04-06-2023 Erythrocyte distribution width (RBC) [Entitic vol] 51.7 fL 35.1-43.[address] [facility] Hematocrit Auto (Bld) [Volum e fraction]Ordered By: David Miramontes on 04-06-2023 Hematocrit (Bld) [Volume fraction] 49.2 % 40-[address] [facility] Immature granulocytes/100 WB C Auto (Bld)Ordered By: [facility] on 04-06-2023 Immature granulocytes/100 WBC (Bld) 0.500 % 0.0-0.[address] [facility] Comment on above: IG% - Immature Granu locytes (promyelocytes, myelocytes and metamyelocytes) > 1% indicates that a LEFT SHIFT is Present. Laboratory - Chemistry and C hemistry - challengeOrdered By: David Miramontes on 04-06-2023 CO2 [Moles/Vol] 27.0 mmol/L 21.0-32.[address] [facility] Urea nitrogen/Creatinine [Mass ratio] 15.0 mg/mg 10-[address] [facility] Laboratory - Hematology and Cell countsOrdered By: David Miramontes on 04-06-2023 MCH (RBC) [Entitic mass] 30.7 pg 27.0-32.[address] [facility] MCHC (RBC) [Mass/Vol] 31.3 g/dL 32-36 [facility] Nucleated RBC/100 WBC (Bld) [Ratio] 0 % 0-[address] [facility] Platelet mean volume (Bld) [Entitic vol] 11.5 fL 6.2-12.[address] [facility] Platelets (Bld) [#/Vol] 189 10*3/uL 150-[address] [facility] No Panel InformationOrdered By: David Miramontes on 04-06-2023 Estimated GFR (MDRD) Amer 85 mL/min >[address] [facility] Comment on above: GFR Calc Estimated GFR (MDRD) Non-Af Amer 70 mL/min >[address] [facility] Comment on above: Non- GFR Calc RBC Auto (Bld) [#/Vol]Ordere d By: David Miramontes on 04-06-2023 RBC (Bld) [#/Vol] 5.01 10*6/uL 4.6-6.2 [facility] Serum or plasma calcium siobhan urement (mass/volume)Ordered By: David Miramontes on 04-06-2023 Calcium [Mass/Vol] 9.1 mg/dL 8.5-10.1 [facility] Serum or plasma creatinine m easurement (mass/volume)Ordered By: David Miramontes on 04-06-2023 Creatinine [Mass/Vol] 1.07 mg/dL 0.70-1.30 [facility] Comment on above: The validity of the calculated GFR & GFRAA in patients over 70 years has not been determined. Clinical correlation is essential. Serum or plasma urea nitroge n measurement (mass/volume)Ordered By: David Miramontes on 04-06-2023 Urea nitrogen [Mass/Vol] 16 mg/dL 7-[address] [facility] Thin prep Papanicolaou smear with manual screeningOrdered By: David Miramontes on 04-06-2023 Thin prep Papanicolaou smear with manual screening 5 5-[address] [facility] Absolute lymphocyte countOrd ered By: David Miramontes on 12-30-2022 Lymphocytes Auto (Unsp spec) [#/Vol] 1.16 10*3/uL 0.83-4.[address] [facility] Basophil percentageOrdered B y: David Miramontes on 12-30-2022 Basophils/100 WBC (Bld) 0.4 % 0-1 [facility] Chloride [Moles/Vol] 109 mmol/L 98-107 [facility] Eosinophils/100 WBC (Bld) 1.3 % 0-[address] [facility] Glucose [Mass/Vol] 84 mg/dL 74-106 [facility] Neutrophils (Bld) [#/Vol] 5.4 10*3/uL 2.0-7.[address] [facility] Neutrophils/100 WBC (Bld) 72.7 % 47-[address] [facility] Potassium [Moles/Vol] 3.6 mmol/L 3.5-5.1 [facility] Sodium [Moles/Vol] 142 mmol/L 136-145 [facility] WBC (Bld) [#/Vol] 7.4 10*3/uL 4.4-11.0 [facility] Blood erythrocytes count (nu mber/volume)Ordered By: David Miramontes on 12-30-2022 RBC (Bld) [#/Vol] 4.15 10*6/uL 4.6-6.2 [facility] Blood hemoglobin measurement (mass/volume)Ordered By: David Miramontes on 12-30-2022 Hemoglobin (Bld) [Mass/Vol] 13.0 g/dL 13.0-16.[address] [facility] Blood lymphocytes/100 leukoc ytesOrdered By: David Miramontes on 12-30-2022 Lymphocytes/100 WBC (Bld) 15.6 % 19-[address] [facility] Blood monocytes/100 leukocyt esOrdered By: David Miramontes on 12-30-2022 Monocytes/100 WBC (Bld) 9.6 % 0-10 [facility] Blood platelet mean volumeOr dered By: David Miramontes on 12-30-2022 Platelet mean volume (Bld) [Entitic vol] 11.6 fL 6.2-12.[address] [facility] Determination of erythrocyte mean corpuscular volume (MCV)Ordered By: David Miramontes on 12-30-2022 MCV (RBC) [Entitic vol] 99.5 fL 80-94 [facility] Hematocrit Auto (Bld) [Volum e fraction]Ordered By: David Miramontes on 12-30-2022 Hematocrit (Bld) [Volume fraction] 41.3 % 40-[address] [facility] Laboratory - Chemistry and C hemistry - challengeOrdered By: David Miramontes on 12-30-2022 CO2 [Moles/Vol] 27.0 mmol/L 21.0-32.[address] [facility] Urea nitrogen/Creatinine [Mass ratio] 11.6 mg/mg 10-[address] [facility] Laboratory - Hematology and Cell countsOrdered By: David Miramontes on 12-30-2022 Erythrocyte distribution width (RBC) [Entitic vol] 51.5 fL 35.1-43.[address] [facility] Erythrocyte distribution width (RBC) [Ratio] 14.2 % 11.6-14.[address] [facility] Immature granulocytes/100 WBC (Bld) 0.400 % 0.0-0.[address] [facility] Comment on above: IG% - Immature Granu locytes (promyelocytes, myelocytes and metamyelocytes) > 1% indicates that a LEFT SHIFT is Present. MCH (RBC) [Entitic mass] 31.3 pg 27.0-32.[address] [facility] Nucleated RBC/100 WBC (Bld) [Ratio] 0 % 0-[address] [facility] MCHC Auto (RBC) [Mass/Vol]Or dered By: David Miramontes on 12-30-2022 MCHC (RBC) [Mass/Vol] 31.5 g/dL 32-36 [facility] No Panel InformationOrdered By: David Miramontes on 12-30-2022 Estimated GFR (MDRD) Amer 108 mL/min >[address] [facility] Comment on above: GFR Calc Estimated GFR (MDRD) Non-Af Amer 90 mL/min >[address] [facility] Comment on above: Non- GFR Calc Platelets bldOrdered By: Lg Miramontes on 12-30-2022 Platelets (Bld) [#/Vol] 165 10*3/uL 150-[address] [facility] Serum or plasma calcium siobhan urement (mass/volume)Ordered By: David Miramontes on 12-30-2022 Calcium [Mass/Vol] 8.3 mg/dL 8.5-10.1 [facility] Serum or plasma creatinine m easurement (mass/volume)Ordered By: David Miramontes on 12-30-2022 Creatinine [Mass/Vol] 0.86 mg/dL 0.70-1.30 [facility] Comment on above: The validity of the calculated GFR & GFRAA in patients over 70 years has not been determined. Clinical correlation is essential. Serum or plasma urea nitroge n measurement (mass/volume)Ordered By: David Miramontes on 12-30-2022 Urea nitrogen [Mass/Vol] 10 mg/dL 7-[address] [facility] Thin prep Papanicolaou smear with manual screeningOrdered By: [facility] on 12-30-[facility]22 Thin prep Papanicolaou smear with manual screening 6 5-[address] [facility] Absolute lymphocyte countOrd ered By: [facility] Pink[facility]re[facility] on 09-29-2022 Lymphocytes Auto (Unsp spec) [#/Vol] 1.19 10*3/uL 0.83-4.[address] [facility] Basophil percentageOrdered B y: David Miramontes on 09-29-2022 Basophils/100 WBC (Bld) 0.2 % 0-1 [facility] Chloride [Moles/Vol] 109 mmol/L 98-107 [facility] Eosinophils/100 WBC (Bld) 0.1 % 0-[address] [facility] Glucose [Mass/Vol] 100 mg/dL 74-106 [facility] Comment on above: Fasting Glucose resu lt from 100 to 125 mg/dL suggests IMPAIRED HOMEOSTASIS per A.D.A. criteria. Neutrophils (Bld) [#/Vol] 8.4 10*3/uL 2.0-7.[address] [facility] Neutrophils/100 WBC (Bld) 80.3 % 47-[address] [facility] Potassium [Moles/Vol] 4.0 mmol/L 3.5-5.1 [facility] Sodium [Moles/Vol] 141 mmol/L 136-145 [facility] WBC (Bld) [#/Vol] 10.4 10*3/uL 4.4-11.0 [facility] Blood erythrocytes count (nu mber/volume)Ordered By: David Miramontes on 09-29-2022 RBC (Bld) [#/Vol] 4.62 10*6/uL 4.6-6.2 [facility] Blood hemoglobin measurement (mass/volume)Ordered By: David Miramontes on 09-29-2022 Hemoglobin (Bld) [Mass/Vol] 14.6 g/dL 13.0-16.[address] [facility] Blood lymphocytes/100 leukoc ytesOrdered By: David Miramontes on 09-29-2022 Lymphocytes/100 WBC (Bld) 11.5 % 19-[address] [facility] Blood monocytes/100 leukocyt esOrdered By: David Miramontes on 09-29-2022 Monocytes/100 WBC (Bld) 7.3 % 0-10 [facility] Blood platelet mean volumeOr dered By: David Miramontes on 09-29-2022 Platelet mean volume (Bld) [Entitic vol] 11.5 fL 6.2-12.[address] [facility] Determination of erythrocyte mean corpuscular volume (MCV)Ordered By: David Miramontes on 09-29-2022 MCV (RBC) [Entitic vol] 99.4 fL 80-94 [facility] Hematocrit Auto (Bld) [Volum e fraction]Ordered By: David Miramontes on 09-29-2022 Hematocrit (Bld) [Volume fraction] 45.9 % 40-[address] [facility] Laboratory - Chemistry and C hemistry - challengeOrdered By: David Miramontes on 09-29-2022 CO2 [Moles/Vol] 28.0 mmol/L 21.0-32.[address] [facility] Urea nitrogen/Creatinine [Mass ratio] 13.8 mg/mg 10-[address] [facility] Laboratory - Hematology and Cell countsOrdered By: David Miramontes on 09-29-2022 Erythrocyte distribution width (RBC) [Entitic vol] 51.7 fL 35.1-43.[address] [facility] Erythrocyte distribution width (RBC) [Ratio] 14.2 % 11.6-14.[address] [facility] Immature granulocytes/100 WBC (Bld) 0.600 % 0.0-0.[address] [facility] Comment on above: IG% - Immature Granu locytes (promyelocytes, myelocytes and metamyelocytes) > 1% indicates that a LEFT SHIFT is Present. MCH (RBC) [Entitic mass] 31.6 pg 27.0-32.[address] [facility] Nucleated RBC/100 WBC (Bld) [Ratio] 0 % 0-[address] [facility] MCHC Auto (RBC) [Mass/Vol]Or dered By: David Miramontes on 09-29-2022 MCHC (RBC) [Mass/Vol] 31.8 g/dL 32-36 [facility] No Panel InformationOrdered By: David Miramontes on 09-29-2022 Estimated GFR (MDRD) Amer 98 mL/min >[address] [facility] Comment on above: GFR Calc Estimated GFR (MDRD) Non-Af Amer 81 mL/min >[address] [facility] Comment on above: Non- GFR Calc Platelets bldOrdered By: Lg Miramontes on 09-29-2022 Platelets (Bld) [#/Vol] 185 10*3/uL 150-[address] [facility] Serum or plasma calcium siobhan urement (mass/volume)Ordered By: David Miramontes on 09-29-2022 Calcium [Mass/Vol] 8.9 mg/dL 8.5-10.1 [facility] Serum or plasma creatinine m easurement (mass/volume)Ordered By: David Miramontes on 09-29-2022 Creatinine [Mass/Vol] 0.94 mg/dL 0.70-1.30 [facility] Comment on above: The validity of the calculated GFR & GFRAA in patients over 70 years has not been determined. Clinical correlation is essential. Serum or plasma urea nitroge n measurement (mass/volume)Ordered By: David Miramontes on 09-29-2022 Urea nitrogen [Mass/Vol] 13 mg/dL 7-[address] [facility] Thin prep Papanicolaou smear with manual screeningOrdered By: David Miramontes on 09-29-2022 Thin prep Papanicolaou smear with manual screening 4 5-[address] [facility] Absolute lymphocyte countOrd ered By: David Miramontes on 06-29-2022 Lymphocytes Auto (Unsp spec) [#/Vol] 1.43 10*3/uL 0.83-4.[address] [facility] Basophil percentageOrdered B y: David Miramontes on 06-29-2022 Basophils/100 WBC (Bld) 0.6 % 0-1 [facility] Chloride [Moles/Vol] 107 mmol/L 98-107 [facility] Eosinophils/100 WBC (Bld) 1.5 % 0-[address] [facility] Glucose [Mass/Vol] 85 mg/dL 74-106 [facility] Neutrophils (Bld) [#/Vol] 4.4 10*3/uL 2.0-7.[address] [facility] Neutrophils/100 WBC (Bld) 65.4 % 47-[address] [facility] Potassium [Moles/Vol] 3.6 mmol/L 3.5-5.1 [facility] Sodium [Moles/Vol] 140 mmol/L 136-145 [facility] WBC (Bld) [#/Vol] 6.7 10*3/uL 4.4-11.0 [facility] Blood erythrocytes count (nu mber/volume)Ordered By: David Miramontes on 06-29-2022 RBC (Bld) [#/Vol] 4.55 10*6/uL 4.6-6.2 [facility] Blood hemoglobin measurement (mass/volume)Ordered By: David Miramontes on 06-29-2022 Hemoglobin (Bld) [Mass/Vol] 14.5 g/dL 13.0-16.[address] [facility] Blood lymphocytes/100 leukoc ytesOrdered By: David Miramontes on 06-29-2022 Lymphocytes/100 WBC (Bld) 21.5 % 19-[address] [facility] Blood monocytes/100 leukocyt esOrdered By: David Miramontes on 06-29-2022 Monocytes/100 WBC (Bld) 10.7 % 0-10 [facility] Blood platelet mean volumeOr dered By: David Miramontes on 05-01-2023 Platelet mean volume (Bld) [Entitic vol] 11.2 fL 6.2-12.[address] [facility] Determination of erythrocyte mean corpuscular volume (MCV)Ordered By: David Miramontes on 06-29-2022 MCV (RBC) [Entitic vol] 98.9 fL 80-94 [facility] Hematocrit Auto (Bld) [Volum e fraction]Ordered By: David Miramontes on 06-29-2022 Hematocrit (Bld) [Volume fraction] 45.0 % 40-[address] [facility] Laboratory - Chemistry and C hemistry - challengeOrdered By: waynelesageingris Miramontes on 06-29-2022 CO2 [Moles/Vol] 30.0 mmol/L 21.0-32.[address] [facility] Urea nitrogen/Creatinine [Mass ratio] 13.6 mg/mg 10-[address] [facility] Laboratory - Hematology and Cell countsOrdered By: David Miramontes on 06-29-2022 Erythrocyte distribution width (RBC) [Entitic vol] 51.6 fL 35.1-43.[address] [facility] Erythrocyte distribution width (RBC) [Ratio] 14.3 % 11.6-14.[address] [facility] Immature granulocytes/100 WBC (Bld) 0.300 % 0.0-0.[address] [facility] Comment on above: IG% - Immature Granu locytes (promyelocytes, myelocytes and metamyelocytes) > 1% indicates that a LEFT SHIFT is Present. MCH (RBC) [Entitic mass] 31.9 pg 27.0-32.[address] [facility] Nucleated RBC/100 WBC (Bld) [Ratio] 0 % 0-[address] [facility] MCHC Auto (RBC) [Mass/Vol]Or dered By: David Miramontes on 06-29-2022 MCHC (RBC) [Mass/Vol] 32.2 g/dL 32-36 [facility] No Panel InformationOrdered By: David Miramontes on 06-29-2022 Estimated GFR (MDRD) Amer 89 mL/min >[address] [facility] Comment on above: GFR Calc Estimated GFR (MDRD) Non-Af Amer 73 mL/min >[address] [facility] Comment on above: Non- GFR Calc Platelets bldOrdered By: Lg rupinderingris Miramontes on 06-29-2022 Platelets (Bld) [#/Vol] 161 10*3/uL 150-[address] [facility] Serum or plasma calcium siobhan urement (mass/volume)Ordered By: David Miramontes on 06-29-2022 Calcium [Mass/Vol] 8.7 mg/dL 8.5-10.1 [facility] Serum or plasma creatinine m easurement (mass/volume)Ordered By: David Miramontes on 06-29-2022 Creatinine [Mass/Vol] 1.03 mg/dL 0.70-1.30 [facility] Comment on above: The validity of the calculated GFR & GFRAA in patients over 70 years has not been determined. Clinical correlation is essential. Serum or plasma urea nitroge n measurement (mass/volume)Ordered By: David Miramontes on 06-29-2022 Urea nitrogen [Mass/Vol] 14 mg/dL 7-[address] [facility] Thin prep Papanicolaou smear with manual screeningOrdered By: David Miramontes on 06-29-2022 Thin prep Papanicolaou smear with manual screening 3 5-[address] [facility] Absolute lymphocyte countOrd ered By: David Miramontes on 04-01-2022 Lymphocytes Auto (Unsp spec) [#/Vol] 1.25 10*3/uL 0.83-4.[address] [facility] Basophil percentageOrdered B y: David Miramontes on 04-01-2022 Basophils/100 WBC (Bld) 0.4 % 0-1 [facility] Chloride [Moles/Vol] 108 mmol/L 98-107 [facility] Eosinophils/100 WBC (Bld) 1.5 % 0-[address] [facility] Glucose [Mass/Vol] 106 mg/dL 74-106 [facility] Comment on above: Fasting Glucose resu lt from 100 to 125 mg/dL suggests IMPAIRED HOMEOSTASIS per A.D.A. criteria. Neutrophils (Bld) [#/Vol] 4.7 10*3/uL 2.0-7.[address] [facility] Neutrophils/100 WBC (Bld) 69.1 % 47-[address] [facility] Potassium [Moles/Vol] 3.6 mmol/L 3.5-5.1 [facility] Sodium [Moles/Vol] 143 mmol/L 136-145 [facility] WBC (Bld) [#/Vol] 6.8 10*3/uL 4.4-11.0 [facility] Blood erythrocytes count (nu mber/volume)Ordered By: David Miramontes on 04-01-2022 RBC (Bld) [#/Vol] 4.69 10*6/uL 4.6-6.2 [facility] Blood hemoglobin measurement (mass/volume)Ordered By: David Miramontes on 04-01-2022 Hemoglobin (Bld) [Mass/Vol] 14.8 g/dL 13.0-16.[address] [facility] Blood lymphocytes/100 leukoc ytesOrdered By: David Miramontes on 04-01-2022 Lymphocytes/100 WBC (Bld) 18.5 % 19-[address] [facility] Blood monocytes/100 leukocyt esOrdered By: David Miramontes on 04-01-2022 Monocytes/100 WBC (Bld) 10.2 % 0-10 [facility] Blood platelet mean volumeOr dered By: David Miramontes on 04-01-2022 Platelet mean volume (Bld) [Entitic vol] 11.5 fL 6.2-12.[address] [facility] Determination of erythrocyte mean corpuscular volume (MCV)Ordered By: David Miramontes on 04-01-2022 MCV (RBC) [Entitic vol] 97.0 fL 80-94 [facility] Hematocrit Auto (Bld) [Volum e fraction]Ordered By: David Miramontes on 04-01-2022 Hematocrit (Bld) [Volume fraction] 45.5 % 40-[address] [facility] Laboratory - Chemistry and C hemistry - challengeOrdered By: David Miramontes on 04-01-2022 CO2 [Moles/Vol] 29.0 mmol/L 21.0-32.[address] [facility] Urea nitrogen/Creatinine [Mass ratio] 13.0 mg/mg 10-[address] [facility] Laboratory - Hematology and Cell countsOrdered By: David Miramontes on 04-01-2022 Erythrocyte distribution width (RBC) [Entitic vol] 51.1 fL 35.1-43.[address] [facility] Erythrocyte distribution width (RBC) [Ratio] 14.4 % 11.6-14.[address] [facility] Immature granulocytes/100 WBC (Bld) 0.300 % 0.0-0.[address] [facility] Comment on above: IG% - Immature Granu locytes (promyelocytes, myelocytes and metamyelocytes) > 1% indicates that a LEFT SHIFT is Present. MCH (RBC) [Entitic mass] 31.6 pg 27.0-32.[address] [facility] Nucleated RBC/100 WBC (Bld) [Ratio] 0 % 0-[address] [facility] MCHC Auto (RBC) [Mass/Vol]Or dered By: David Miramontes on 04-01-2022 MCHC (RBC) [Mass/Vol] 32.5 g/dL 32-36 [facility] No Panel InformationOrdered By: David Miramontes on 04-01-2022 Estimated GFR (MDRD) Amer 92 mL/min >[address] [facility] Comment on above: GFR Calc Estimated GFR (MDRD) Non-Af Amer 76 mL/min >[address] [facility] Comment on above: Non- GFR Calc Platelets bldOrdered By: Lg Miramontes on 04-01-2022 Platelets (Bld) [#/Vol] 167 10*3/uL 150-[address] [facility] Serum or plasma calcium siobhan urement (mass/volume)Ordered By: David Miramontes on 04-01-2022 Calcium [Mass/Vol] 9.1 mg/dL 8.5-10.1 [facility] Serum or plasma creatinine m easurement (mass/volume)Ordered By: David Miramontes on 04-01-2022 Creatinine [Mass/Vol] 1.00 mg/dL 0.70-1.30 [facility] Comment on above: The validity of the calculated GFR & GFRAA in patients over 70 years has not been determined. Clinical correlation is essential. Serum or plasma urea nitroge n measurement (mass/volume)Ordered By: David Miramontes on 04-01-2022 Urea nitrogen [Mass/Vol] 13 mg/dL 7-[address] [facility] Thin prep Papanicolaou smear with manual screeningOrdered By: David Miramontes on 04-01-2022 Thin prep Papanicolaou smear with manual screening 6 5-[address] [facility] Absolute lymphocyte countOrd ered By: Jhonny Tomas on 01-07-2022 Lymphocytes Auto (Unsp spec) [#/Vol] 1.54 10*3/uL 0.83-4.[address] [facility] Basophil percentageOrdered B y: Jhonny Tomas on 01-07-2022 Basophils/100 WBC (Bld) 0.3 % 0-1 [facility] Chloride [Moles/Vol] 104 mmol/L 98-107 [facility] Eosinophils/100 WBC (Bld) 1.9 % 0-[address] [facility] Glucose [Mass/Vol] 89 mg/dL 74-106 [facility] Neutrophils (Bld) [#/Vol] 4.8 10*3/uL 2.0-7.[address] [facility] Neutrophils/100 WBC (Bld) 66.5 % 47-[address] [facility] Potassium [Moles/Vol] 4.1 mmol/L 3.5-5.1 [facility] Sodium [Moles/Vol] 141 mmol/L 136-145 [facility] WBC (Bld) [#/Vol] 7.2 10*3/uL 4.4-11.0 [facility] Blood erythrocytes count (nu mber/volume)Ordered By: Jhonny Tomas on 01-07-2022 RBC (Bld) [#/Vol] 4.80 10*6/uL 4.6-6.2 [facility] Blood hemoglobin measurement (mass/volume)Ordered By: Jhonny Tomas on 01-07-2022 Hemoglobin (Bld) [Mass/Vol] 15.2 g/dL 13.0-16.[address] [facility] Blood lymphocytes/100 leukoc ytesOrdered By: Jhonny Tomas on 01-07-2022 Lymphocytes/100 WBC (Bld) 21.3 % 19-[address] [facility] Blood monocytes/100 leukocyt esOrdered By: Jhonny Tomas on 01-07-2022 Monocytes/100 WBC (Bld) 9.7 % 0-10 [facility] Blood platelet mean volumeOr dered By: Jhonny Tomas on 01-07-2022 Platelet mean volume (Bld) [Entitic vol] 11.2 fL 6.2-12.[address] [facility] Determination of erythrocyte mean corpuscular volume (MCV)Ordered By: Jhonny Tomas on 01-07-2022 MCV (RBC) [Entitic vol] 97.3 fL 80-94 [facility] Hematocrit Auto (Bld) [Volum e fraction]Ordered By: Jhonny Tomas on 01-07-2022 Hematocrit (Bld) [Volume fraction] 46.7 % 40-[address] [facility] Laboratory - Chemistry and C hemistry - challengeOrdered By: Jhonny Tomas on 01-07-2022 CO2 [Moles/Vol] 29.0 mmol/L 21.0-32.[address] [facility] Urea nitrogen/Creatinine [Mass ratio] 11.4 mg/mg 10-[address] [facility] Laboratory - Hematology and Cell countsOrdered By: Jhonny Tomas on 01-07-2022 Erythrocyte distribution width (RBC) [Entitic vol] 52.0 fL 35.1-43.[address] [facility] Erythrocyte distribution width (RBC) [Ratio] 14.5 % 11.6-14.[address] [facility] Immature granulocytes/100 WBC (Bld) 0.300 % 0.0-0.[address] [facility] Comment on above: IG% - Immature Granu locytes (promyelocytes, myelocytes and metamyelocytes) > 1% indicates that a LEFT SHIFT is Present. MCH (RBC) [Entitic mass] 31.7 pg 27.0-32.[address] [facility] Nucleated RBC/100 WBC (Bld) [Ratio] 0 % 0-[address] [facility] MCHC Auto (RBC) [Mass/Vol]Or dered By: Jhonny Tomas on 01-07-2022 MCHC (RBC) [Mass/Vol] 32.5 g/dL 32-36 [facility] No Panel InformationOrdered By: Jhonny Tomas on 01-07-2022 Estimated GFR (MDRD) Amer 79 mL/min >[address] [facility] Comment on above: GFR Calc Estimated GFR (MDRD) Non-Af Amer 65 mL/min >[address] [facility] Comment on above: Non- GFR Calc Platelets bldOrdered By: Joao Tomas on 01-07-2022 Platelets (Bld) [#/Vol] 192 10*3/uL 150-[address] [facility] Serum or plasma calcium siobhan urement (mass/volume)Ordered By: Jhonny Tomas on 01-07-2022 Calcium [Mass/Vol] 8.8 mg/dL 8.5-10.1 [facility] Serum or plasma creatinine m easurement (mass/volume)Ordered By: Jhonny Tomas on 01-07-2022 Creatinine [Mass/Vol] 1.14 mg/dL 0.70-1.30 [facility] Comment on above: The validity of the calculated GFR & GFRAA in patients over 70 years has not been determined. Clinical correlation is essential. Serum or plasma urea nitroge n measurement (mass/volume)Ordered By: Jhonny Tomas on 01-07-2022 Urea nitrogen [Mass/Vol] 13 mg/dL 7-[address] [facility] Thin prep Papanicolaou smear with manual screeningOrdered By: Jhonny Tomas on 01-07-2022 Thin prep Papanicolaou smear with manual screening 8 5-[address] [facility] Absolute lymphocyte countOrd ered By: Jhonny Tomas on 12-24-2021 Lymphocytes Auto (Unsp spec) [#/Vol] 1.60 10*3/uL 0.83-4.[address] [facility] Basophil percentageOrdered B y: Jhonny Tomas on 12-24-2021 Basophils/100 WBC (Bld) 0.4 % 0-1 [facility] Chloride [Moles/Vol] 109 mmol/L 98-107 [facility] Eosinophils/100 WBC (Bld) 1.5 % 0-[address] [facility] Glucose [Mass/Vol] 93 mg/dL 74-106 [facility] Neutrophils (Bld) [#/Vol] 4.8 10*3/uL 2.0-7.[address] [facility] Neutrophils/100 WBC (Bld) 66.8 % 47-[address] [facility] Potassium [Moles/Vol] 4.0 mmol/L 3.5-5.1 [facility] Comment on above: Slight Hemolysis, Re sult may be falsely increased. Sodium [Moles/Vol] 140 mmol/L 136-145 [facility] WBC (Bld) [#/Vol] 7.2 10*3/uL 4.4-11.0 [facility] Blood erythrocytes count (nu mber/volume)Ordered By: Jhonny Tomas on 12-24-2021 RBC (Bld) [#/Vol] 4.49 10*6/uL 4.6-6.2 [facility] Blood hemoglobin measurement (mass/volume)Ordered By: Jhonny Tomas on 12-24-2021 Hemoglobin (Bld) [Mass/Vol] 14.5 g/dL 13.0-16.[address] [facility] Blood lymphocytes/100 leukoc ytesOrdered By: Jhonny Tomas on 12-24-2021 Lymphocytes/100 WBC (Bld) 22.2 % 19-[address] [facility] Blood monocytes/100 leukocyt esOrdered By: Jhonny Tomas on 12-24-2021 Monocytes/100 WBC (Bld) 9.0 % 0-10 [facility] Blood platelet mean volumeOr dered By: Jhonny Tomas on 12-24-2021 Platelet mean volume (Bld) [Entitic vol] 11.2 fL 6.2-12.[address] [facility] Determination of erythrocyte mean corpuscular volume (MCV)Ordered By: Jhonny Tomas on 12-24-2021 MCV (RBC) [Entitic vol] 97.1 fL 80-94 [facility] Hematocrit Auto (Bld) [Volum e fraction]Ordered By: Jhonny Tomas on 12-24-2021 Hematocrit (Bld) [Volume fraction] 43.6 % 40-[address] [facility] Laboratory - Chemistry and C hemistry - challengeOrdered By: Jhonny Tomas on 12-24-2021 CO2 [Moles/Vol] 26.0 mmol/L 21.0-32.[address] [facility] Urea nitrogen/Creatinine [Mass ratio] 14.7 mg/mg 10-[address] [facility] Laboratory - Hematology and Cell countsOrdered By: Jhonny Tomas on 12-24-2021 Erythrocyte distribution width (RBC) [Entitic vol] 51.8 fL 35.1-43.[address] [facility] Erythrocyte distribution width (RBC) [Ratio] 14.4 % 11.6-14.[address] [facility] Immature granulocytes/100 WBC (Bld) 0.100 % 0.0-0.[address] [facility] Comment on above: IG% - Immature Granu locytes (promyelocytes, myelocytes and metamyelocytes) > 1% indicates that a LEFT SHIFT is Present. MCH (RBC) [Entitic mass] 32.3 pg 27.0-32.[address] [facility] Nucleated RBC/100 WBC (Bld) [Ratio] 0 % 0-[address] [facility] MCHC Auto (RBC) [Mass/Vol]Or dered By: Jhonny Tomas on 12-24-2021 MCHC (RBC) [Mass/Vol] 33.3 g/dL 32-36 [facility] No Panel InformationOrdered By: Jhonny Tomas on 12-24-2021 Estimated GFR (MDRD) Amer 90 mL/min >[address] [facility] Comment on above: GFR Calc Estimated GFR (MDRD) Non-Af Amer 74 mL/min >[address] [facility] Comment on above: Non- GFR Calc Platelets bldOrdered By: Joao Tomas on 12-24-2021 Platelets (Bld) [#/Vol] 166 10*3/uL 150-[address] [facility] Serum or plasma calcium siobhan urement (mass/volume)Ordered By: Jhonny Tomas on 12-24-2021 Calcium [Mass/Vol] 8.8 mg/dL 8.5-10.1 [facility] Serum or plasma creatinine m easurement (mass/volume)Ordered By: Jhonny Tomas on 12-24-2021 Creatinine [Mass/Vol] 1.02 mg/dL 0.70-1.30 [facility] Comment on above: The validity of the calculated GFR & GFRAA in patients over 70 years has not been determined. Clinical correlation is essential. Serum or plasma urea nitroge n measurement (mass/volume)Ordered By: Jhonny Tomas on 12-24-2021 Urea nitrogen [Mass/Vol] 15 mg/dL 7-[address] [facility] Thin prep Papanicolaou smear with manual screeningOrdered By: Jhonny Tomas on 12-24-2021 Thin prep Papanicolaou smear with manual screening 5 5-[address] [facility] Absolute lymphocyte counton 12-10-2021 Lymphocytes Auto (Unsp spec) [#/Vol] 1.33 10*3/uL 0.83-4.[address] [facility] Work Phone: Basophil percentageon 2021 Basophils/100 WBC (Bld) 0.4 % 0-1 [facility] Work Phone: [phone] Chloride [Moles/Vol] 105 mmol/L 98-107 [facility] Work Phone: [phone] Eosinophils/100 WBC (Bld) 1.3 % 0-[address] [facility] Work Phone: [phone] Glucose [Mass/Vol] 103 mg/dL 74-106 [facility] Work Phone: [phone] Comment on above: Fasting Glucose resu lt from 100 to 125 mg/dL suggests IMPAIRED HOMEOSTASIS per A.D.A. criteria. Neutrophils (Bld) [#/Vol] 4.8 10*3/uL 2.0-7.[address] [facility] Work Phone: Neutrophils/100 WBC (Bld) 69.1 % 47-[address] [facility] Work Phone: [phone] Potassium [Moles/Vol] 3.7 mmol/L 3.5-5.1 [facility] Work Phone: [phone] Sodium [Moles/Vol] 141 mmol/L 136-145 [facility] Work Phone: [phone] WBC (Bld) [#/Vol] 7.0 10*3/uL 4.4-11.0 [facility] Work Phone: Blood erythrocytes count (nu mber/volume)on 12-10-2021 RBC (Bld) [#/Vol] 4.88 10*6/uL 4.6-6.2 [facility] Work Phone: Blood hemoglobin measurement (mass/volume)on 12-10-2021 Hemoglobin (Bld) [Mass/Vol] 15.5 g/dL 13.0-16.[address] [facility] Work Phone: Blood lymphocytes/100 leukoc yteson 12-10-2021 Lymphocytes/100 WBC (Bld) 19.1 % 19-[address] [facility] Work Phone: Blood monocytes/100 leukocyt eson 12-10-2021 Monocytes/100 WBC (Bld) 9.8 % 0-10 [facility] Work Phone: Blood platelet mean volumeon 12-10-2021 Platelet mean volume (Bld) [Entitic vol] 10.8 fL 6.2-12.[address] [facility] Work Phone: Determination of erythrocyte mean corpuscular volume (MCV)on 12-10-2021 MCV (RBC) [Entitic vol] 95.9 fL 80-94 [facility] Work Phone: Hematocrit Auto (Bld) [Volum e fraction]on 12-10-2021 Hematocrit (Bld) [Volume fraction] 46.8 % 40-[address] [facility] Work Phone: Laboratory - Chemistry and C hemistry - challengeon 12-10-2021 CO2 [Moles/Vol] 30.0 mmol/L 21.0-32.[address] [facility] Work Phone: Urea nitrogen/Creatinine [Mass ratio] 11.3 mg/mg 10-[address] [facility] Work Phone: Laboratory - Hematology and Cell countson 12-10-2021 Erythrocyte distribution width (RBC) [Entitic vol] 51.1 fL 35.1-43.[address] [facility] Work Phone: Erythrocyte distribution width (RBC) [Ratio] 14.4 % 11.6-14.[address] [facility] Work Phone: Immature granulocytes/100 WBC (Bld) 0.300 % 0.0-0.[address] [facility] Work Phone: Comment on above: IG% - Immature Granu locytes (promyelocytes, myelocytes and metamyelocytes) > 1% indicates that a LEFT SHIFT is Present. MCH (RBC) [Entitic mass] 31.8 pg 27.0-32.[address] [facility] Work Phone: Nucleated RBC/100 WBC (Bld) [Ratio] 0 % 0-[address] [facility] Work Phone: MCHC Auto (RBC) [Mass/Vol]on 12-10-2021 MCHC (RBC) [Mass/Vol] 33.1 g/dL 32-36 [facility] Work Phone: No Panel Informationon 12-10 Estimated GFR (MDRD) Amer 86 mL/min >[address] [facility] Work Phone: Comment on above: GFR Calc Estimated GFR (MDRD) Non-Af Amer 71 mL/min >[address] [facility] Work Phone: Comment on above: Non- GFR Calc Platelets bldon 12-10-2021 Platelets (Bld) [#/Vol] 176 10*3/uL 150-[address] [facility] Work Phone: Serum or plasma calcium siobhan urement (mass/volume)on 12-10-2021 Calcium [Mass/Vol] 8.9 mg/dL 8.5-10.1 [facility] Work Phone: Serum or plasma creatinine m easurement (mass/volume)on 12-10-2021 Creatinine [Mass/Vol] 1.06 mg/dL 0.70-1.30 [facility] Work Phone: Comment on above: The validity of the calculated GFR & GFRAA in patients over 70 years has not been determined. Clinical correlation is essential. Serum or plasma urea nitroge n measurement (mass/volume)on 12-10-2021 Urea nitrogen [Mass/Vol] 12 mg/dL 7-[address] [facility] Work Phone: Thin prep Papanicolaou smear with manual screeningon 12-10-2021 Thin prep Papanicolaou smear with manual screening 6 5-[address] [facility] Work Phone: CNPNon 12-09-2021 [facility] GILMAKEL SIMONS ([id number]) 1940 M Date Time Provider Department 12/09/21 NICOLAS CARDENAS During your visit today, we recorded the following information about you: Ludivina Cárdenas LPN 12/09/2021 3:11 PM Signed Patient son Jhonny calling said PCP completed expert evaluation form on 09/29 for guardianship and bilingual sales consultant said question number [phone] needs revised. Son Jhonny said 2 weeks after form was done father had fall and was taken to [facility] then sent to [facility] [...] stay and he is now under the [place] attending physician's care. It is more appropriate for the [place] attending physician to do another form. More statements need corrected/updated Preethi Delgadillo RN 12/11/2021 2:59 PM Signed Son (Jhonny) calls in and provider message reviewed. Son asking if form brought in can be picked back up in Medical Records. Please contact Jhonny at [phone]. RENETTA Rubio LPN 12/11/2021 3:41 PM Signed [...] by FLORA WOOD LPN on 12/11/21 [facility] Absolute lymphocyte counton 11-26-2021 Lymphocytes Auto (Unsp spec) [#/Vol] 1.47 10*3/uL 0.83-4.[address] [facility] Work Phone: Basophil percentageon 2021 Basophils/100 WBC (Bld) 0.6 % 0-1 [facility] Work Phone: [phone] Chloride [Moles/Vol] 107 mmol/L 98-107 [facility] Work Phone: [phone] Eosinophils/100 WBC (Bld) 1.1 % 0-[address] [facility] Work Phone: [phone] Glucose [Mass/Vol] 92 mg/dL 74-106 [facility] Work Phone: [phone] Neutrophils (Bld) [#/Vol] 6.4 10*3/uL 2.0-7.[address] [facility] Work Phone: [phone] Neutrophils/100 WBC (Bld) 71.7 % 47-[address] [facility] Work Phone: [phone] Potassium [Moles/Vol] 4.0 mmol/L 3.5-5.1 [facility] Work Phone: [phone] Comment on above: Slight Hemolysis, Re sult may be falsely increased. Sodium [Moles/Vol] 141 mmol/L 136-145 [facility] Work Phone: [phone] WBC (Bld) [#/Vol] 9.0 10*3/uL 4.4-11.0 [facility] Work Phone: [phone] Blood erythrocytes count (nu mber/volume)on 11-26-2021 RBC (Bld) [#/Vol] 4.81 10*6/uL 4.6-6.2 [facility] Work Phone: Blood hemoglobin measurement (mass/volume)on 11-26-2021 Hemoglobin (Bld) [Mass/Vol] 15.3 g/dL 13.0-16.[address] [facility] Work Phone: Blood lymphocytes/100 leukoc yteson 11-26-2021 Lymphocytes/100 WBC (Bld) 16.4 % 19-[address] [facility] Work Phone: [phone] Blood monocytes/100 leukocyt eson 11-26-2021 Monocytes/100 WBC (Bld) 9.9 % 0-10 [facility] Work Phone: Blood platelet mean volumeon 11-26-2021 Platelet mean volume (Bld) [Entitic vol] 11.2 fL 6.2-12.[address] [facility] Work Phone: Determination of erythrocyte mean corpuscular volume (MCV)on 11-26-2021 MCV (RBC) [Entitic vol] 96.7 fL 80-94 [facility] Work Phone: Hematocrit Auto (Bld) [Volum e fraction]on 11-26-2021 Hematocrit (Bld) [Volume fraction] 46.5 % 40-[address] [facility] Work Phone: Laboratory - Chemistry and C hemistry - challengeon 11-26-2021 CO2 [Moles/Vol] 28.0 mmol/L 21.0-32.[address] [facility] Work Phone: Urea nitrogen/Creatinine [Mass ratio] 13.3 mg/mg 10-[address] [facility] Work Phone: Laboratory - Hematology and Cell countson 11-26-2021 Erythrocyte distribution width (RBC) [Entitic vol] 51.9 fL 35.1-43.[address] [facility] Work Phone: Erythrocyte distribution width (RBC) [Ratio] 14.5 % 11.6-14.[address] [facility] Work Phone: Immature granulocytes/100 WBC (Bld) 0.300 % 0.0-0.[address] [facility] Work Phone: Comment on above: IG% - Immature Granu locytes (promyelocytes, myelocytes and metamyelocytes) > 1% indicates that a LEFT SHIFT is Present. MCH (RBC) [Entitic mass] 31.8 pg 27.0-32.[address] [facility] Work Phone: Nucleated RBC/100 WBC (Bld) [Ratio] 0 % 0-[address] [facility] Work Phone: MCHC Auto (RBC) [Mass/Vol]on 11-26-2021 MCHC (RBC) [Mass/Vol] 32.9 g/dL 32-36 [facility] Work Phone: No Panel Informationon 11-26 Estimated GFR (MDRD) Amer 80 mL/min >[address] [facility] Work Phone: Comment on above: GFR Calc Estimated GFR (MDRD) Non-Af Amer 66 mL/min >[address] [facility] Work Phone: Comment on above: Non- GFR Calc Platelets bldon 11-26-2021 Platelets (Bld) [#/Vol] 181 10*3/uL 150-[address] [facility] Work Phone: Serum or plasma calcium siobhan urement (mass/volume)on 11-26-2021 Calcium [Mass/Vol] 8.7 mg/dL 8.5-10.1 [facility] Work Phone: Serum or plasma creatinine m easurement (mass/volume)on 11-26-2021 Creatinine [Mass/Vol] 1.13 mg/dL 0.70-1.30 [facility] Work Phone: Comment on above: The validity of the calculated GFR & GFRAA in patients over 70 years has not been determined. Clinical correlation is essential. Serum or plasma urea nitroge n measurement (mass/volume)on 11-26-2021 Urea nitrogen [Mass/Vol] 15 mg/dL 7-[address] [facility] Work Phone: Thin prep Papanicolaou smear with manual screeningon 11-26-2021 Thin prep Papanicolaou smear with manual screening 6 5-[address] [facility] Work Phone: Absolute lymphocyte counton 11-12-2021 Lymphocytes Auto (Unsp spec) [#/Vol] 1.01 10*3/uL 0.83-4.[address] [facility] Work Phone: [phone] Basophil percentageon 2021 Basophils/100 WBC (Bld) 0.6 % 0-1 [facility] [facility] Work Phone: Chloride [Moles/Vol] 109 mmol/L 98-107 [facility] Work [facility]: [phone] Eosinophils/100 WBC (Bld) 1.1 % 0-[address] [facility] Work Phone: [phone] Glucose [Mass/Vol] 89 mg/dL 74-106 [facility] Work Phone: [phone] Neutrophils (Bld) [#/Vol] 4.7 10*3/uL 2.0-7.[address] [facility] Work Phone: [phone] Neutrophils/100 WBC (Bld) 72.7 % 47-[address] [facility] Work Phone: [phone] Potassium [Moles/Vol] 3.9 mmol/L 3.5-5.1 [facility] Work Phone: [phone] Sodium [Moles/Vol] 142 mmol/L 136-145 [facility] Work Phone: [phone] WBC (Bld) [#/Vol] 6.5 10*3/uL 4.4-11.0 [facility] Work Phone: Blood erythrocytes count (nu mber/volume)on 11-12-2021 RBC (Bld) [#/Vol] 4.50 10*6/uL 4.6-6.2 [facility] Work Phone: Blood hemoglobin measurement (mass/volume)on 11-12-2021 Hemoglobin (Bld) [Mass/Vol] 14.4 g/dL 13.0-16.[address] [facility] Work Phone: [phone] Blood lymphocytes/100 leukoc yteson 11-12-2021 Lymphocytes/100 WBC (Bld) 15.5 % 19-[address] [facility] Work Phone: Blood monocytes/100 leukocyt eson 11-12-2021 Monocytes/100 WBC (Bld) 9.8 % 0-10 [facility] [place] [facility] Work Phone: Blood platelet mean volumeon 11-12-2021 Platelet mean volume (Bld) [Entitic vol] 10.9 fL 6.2-12.[address] [facility] Work Phone: Determination of erythrocyte mean corpuscular volume (MCV)on 11-12-2021 MCV (RBC) [Entitic vol] 97.3 fL 80-94 [place] [facility] Work Phone: Hematocrit Auto (Bld) [Volum e fraction]on 11-12-2021 Hematocrit (Bld) [Volume fraction] 43.8 % 40-[address] [facility] Work Phone: Laboratory - Chemistry and C hemistry - challengeon 11-12-2021 CO2 [Moles/Vol] 26.0 mmol/L 21.0-32.[address] [facility] Work Phone: Urea nitrogen/Creatinine [Mass ratio] 16.4 mg/mg 10-[address] [facility] Work Phone: Laboratory - Hematology and Cell countson 11-12-2021 Erythrocyte distribution width (RBC) [Entitic vol] 53.1 fL 35.1-43.[address] [facility] Work Phone: Erythrocyte distribution width (RBC) [Ratio] 14.8 % 11.6-14.[address] [facility] Work Phone: Immature granulocytes/100 WBC (Bld) 0.300 % 0.0-0.[address] [facility] Work Phone: Comment on above: IG% - Immature Granu locytes (promyelocytes, myelocytes and metamyelocytes) > 1% indicates that a LEFT SHIFT is Present. MCH (RBC) [Entitic mass] 32.0 pg 27.0-32.[address] [facility] Work Phone: Nucleated RBC/100 WBC (Bld) [Ratio] 0 % 0-[address] [facility] Work Phone: MCHC Auto (RBC) [Mass/Vol]on 11-12-2021 MCHC (RBC) [Mass/Vol] 32.9 g/dL 32-36 [facility] Work Phone: No Panel Informationon 11-12 Estimated GFR (MDRD) Amer 102 mL/min >[address] [facility] Work Phone: Comment on above: GFR Calc Estimated GFR (MDRD) Non-Af Amer 84 mL/min >[address] [facility] Work Phone: Comment on above: Non- GFR Calc Platelets bldon 11-12-2021 Platelets (Bld) [#/Vol] 181 10*3/uL 150-[address] [facility] Work Phone: Serum or plasma calcium siobhan urement (mass/volume)on 11-12-2021 Calcium [Mass/Vol] 8.7 mg/dL 8.5-10.1 [facility] Work Phone: Serum or plasma creatinine m easurement (mass/volume)on 11-12-2021 Creatinine [Mass/Vol] 0.92 mg/dL 0.70-1.30 [facility] Work Phone: Comment on above: The validity of the calculated GFR & GFRAA in patients over 70 years has not been determined. Clinical correlation is essential. Serum or plasma urea nitroge n measurement (mass/volume)on 11-12-2021 Urea nitrogen [Mass/Vol] 15 mg/dL 7-[address] [facility] Work Phone: Thin prep Papanicolaou smear with manual screeningon 11-12-2021 Thin prep Papanicolaou smear with manual screening 7 5-[address] [facility] Work Phone: Absolute lymphocyte counton 10-29-2021 Lymphocytes Auto (Unsp spec) [#/Vol] 0.96 10*3/uL 0.83-4.[address] [facility] Work Phone: Basophil percentageon 2021 Basophils/100 WBC (Bld) 0.5 % 0-1 [place] [facility] Work Phone: Chloride [Moles/Vol] 110 mmol/L 98-107 [facility] Work Phone: [phone] Eosinophils/100 WBC (Bld) 1.9 % 0-[address] [facility] Work Phone: Glucose [Mass/Vol] 93 mg/dL 74-106 [facility] Work Phone: [phone] Neutrophils (Bld) [#/Vol] 4.5 10*3/uL 2.0-7.[address] [facility] Work Phone: [phone] Neutrophils/100 WBC (Bld) 70.1 % 47-[address] [facility] Work Phone: [phone] Potassium [Moles/Vol] 3.8 mmol/L 3.5-5.1 [facility] Work Phone: [phone] Sodium [Moles/Vol] 142 mmol/L 136-145 [facility] Work Phone: [phone] WBC (Bld) [#/Vol] 6.4 10*3/uL 4.4-11.0 [facility] Work Phone: [phone] Blood erythrocytes count (nu mber/volume)on 10-29-2021 RBC (Bld) [#/Vol] 4.38 10*6/uL 4.6-6.2 [facility] Work Phone: Blood hemoglobin measurement (mass/volume)on 10-29-2021 Hemoglobin (Bld) [Mass/Vol] 13.9 g/dL 13.0-16.[address] [facility] Work Phone: [phone] Blood lymphocytes/100 leukoc yteson 10-29-2021 Lymphocytes/100 WBC (Bld) 15.1 % 19-[address] [facility] Work Phone: [phone] Blood monocytes/100 leukocyt eson 10-29-2021 Monocytes/100 WBC (Bld) 12.1 % 0-10 [facility] [place] [facility] Work Phone: Blood platelet mean volumeon 10-29-2021 Platelet mean volume (Bld) [Entitic vol] 11.2 fL 6.2-12.[address] [facility] Work Phone: Determination of erythrocyte mean corpuscular volume (MCV)on 10-29-2021 MCV (RBC) [Entitic vol] 96.8 fL 80-94 [facility] [place] [facility] Work Phone: Hematocrit Auto (Bld) [Volum e fraction]on 10-29-2021 Hematocrit (Bld) [Volume fraction] 42.4 % 40-[address] [facility] Work Phone: Laboratory - Chemistry and C hemistry - challengeon 10-29-2021 CO2 [Moles/Vol] 27.0 mmol/L 21.0-32.[address] [facility] Work Phone: Urea nitrogen/Creatinine [Mass ratio] 11.1 mg/mg 10-[address] [facility] Work Phone: Laboratory - Hematology and Cell countson 10-29-2021 Erythrocyte distribution width (RBC) [Entitic vol] 52.1 fL 35.1-43.[address] [facility] Work Phone: Erythrocyte distribution width (RBC) [Ratio] 14.6 % 11.6-14.[address] [facility] Work Phone: Immature granulocytes/100 WBC (Bld) 0.300 % 0.0-0.[address] [facility] Work Phone: Comment on above: IG% - Immature Granu locytes (promyelocytes, myelocytes and metamyelocytes) > 1% indicates that a LEFT SHIFT is Present. MCH (RBC) [Entitic mass] 31.7 pg 27.0-32.[address] [facility] Work Phone: Nucleated RBC/100 WBC (Bld) [Ratio] 0 % 0-[address] [facility] Work Phone: MCHC Auto (RBC) [Mass/Vol]on 10-29-2021 MCHC (RBC) [Mass/Vol] 32.8 g/dL 32-36 [facility] [facility] Work Phone: No Panel Informationon 10-29 Estimated GFR (MDRD) Amer 84 mL/min >[address] [facility] Work Phone: Comment on above: GFR Calc Estimated GFR (MDRD) Non-Af Amer 70 mL/min >[address] [facility] Work Phone: Comment on above: Non- GFR Calc Platelets bldon 10-29-2021 Platelets (Bld) [#/Vol] 187 10*3/uL 150-[address] [facility] Work Phone: Serum or plasma calcium siobhan urement (mass/volume)on 10-29-2021 Calcium [Mass/Vol] 8.8 mg/dL 8.5-10.1 [facility] r [facility] Work Phone: Serum or plasma creatinine m easurement (mass/volume)on 10-29-2021 Creatinine [Mass/Vol] 1.08 mg/dL 0.70-1.30 [facility] ster [facility] Work Phone: Comment on above: The validity of the calculated GFR & GFRAA in patients over 70 years has not been determined. Clinical correlation is essential. Serum or plasma urea nitroge n measurement (mass/volume)on 10-29-2021 Urea nitrogen [Mass/Vol] 12 mg/dL 7-[address] [facility] Work Phone: Thin prep Papanicolaou smear with manual screeningon 10-29-2021 Thin prep Papanicolaou smear with manual screening 5 5-[address] [facility] Work Phone: CNPNon 10-23-2021 [facility] (INTWS) KEL DILLARD ([id number]) 1940 M Date Time Provider Department 10/23/21 NICOLAS CARDENASWS During your visit today, we recorded the following information about you: Flora Anshu HEIN 10/23/2021 11:54 AM Signed Per [facility] discharge info pt was discharged to [facility] 10/22/21. Allergies As of Date: [...] by FLORA WOOD LPN on 10/23/21 Normal [facility] Laboratory - Chemistry and C hemistry - challengeon 10-22-2021 CK [Catalytic activity/Vol] 1616 U/L 39-[address] [facility] Work Phone: [phone] Absolute lymphocyte counton 10-21-2021 Lymphocytes Auto (Unsp spec) [#/Vol] 0.75 10*3/uL 0.83-4.[address] [facility] Work Phone: [phone] Basophil percentageon 2021 Basophils/100 WBC (Bld) 0.1 % 0-1 [facility] [place] [facility] Work Phone: [phone] Chloride [Moles/Vol] 107 mmol/L 98-107 [facility] Work Phone: [phone] Eosinophils/100 WBC (Bld) 0.0 % 0-[address] [facility] Work Phone: [phone] Glucose [Mass/Vol] 144 mg/dL 74-106 [facility] Work Phone: Comment on above: Fasting Glucose resu lt greater than or equal to 126 mg/dL suggests DIABETES MELLITUS per A.D.A. criteria. Neutrophils (Bld) [#/Vol] 11.4 10*3/uL 2.0-7.[address] [facility] Work Phone: Neutrophils/100 WBC (Bld) 85.4 % 47-[address] [facility] Work Phone: Potassium [Moles/Vol] 3.7 mmol/L 3.5-5.1 [place] [facility] Work Phone: Sodium [Moles/Vol] 141 mmol/L 136-145 [facility] Work Phone: WBC (Bld) [#/Vol] 13.4 10*3/uL 4.4-11.0 [facility] Work [facility]: Blood erythrocytes count (nu mber/volume)on 10-21-2021 RBC (Bld) [#/Vol] 5.04 10*6/uL 4.6-6.2 [facility] Work Phone: Blood hemoglobin measurement (mass/volume)on 10-21-2021 Hemoglobin (Bld) [Mass/Vol] 15.7 g/dL 13.0-16.[address] [facility] Work Phone: Blood lymphocytes/100 leukoc yteson 10-21-2021 Lymphocytes/100 WBC (Bld) 5.6 % 19-[address] [facility] Work Phone: Blood monocytes/100 leukocyt eson 10-21-2021 Monocytes/100 WBC (Bld) 8.5 % 0-10 [facility] [place] [facility] Work Phone: Blood platelet mean volumeon 10-21-2021 Platelet mean volume (Bld) [Entitic vol] 11.2 fL 6.2-12.[address] [facility] Work Phone: Determination of erythrocyte mean corpuscular volume (MCV)on 10-21-2021 MCV (RBC) [Entitic vol] 93.8 fL 80-94 [facility] Work Phone: Hematocrit Auto (Bld) [Volum e fraction]on 10-21-2021 Hematocrit (Bld) [Volume fraction] 47.3 % 40-[address] [facility] Work Phone: Laboratory - Chemistry and C hemistry - challengeon 10-21-2021 CO2 [Moles/Vol] 26.0 mmol/L 21.0-32.[address] [facility] Work Phone: Urea nitrogen/Creatinine [Mass ratio] 14.2 mg/mg 10-[address] [facility] Work Phone: Laboratory - Hematology and Cell countson 10-21-2021 Erythrocyte distribution width (RBC) [Entitic vol] 50.5 fL 35.1-43.[address] [facility] Work Phone: Erythrocyte distribution width (RBC) [Ratio] 14.7 % 11.6-14.[address] [facility] Work Phone: Immature granulocytes/100 WBC (Bld) 0.400 % 0.0-0.[address] [facility] Work Phone: Comment on above: IG% - Immature Granu locytes (promyelocytes, myelocytes and metamyelocytes) > 1% indicates that a LEFT SHIFT is Present. MCH (RBC) [Entitic mass] 31.2 pg 27.0-32.[address] [facility] Work Phone: Nucleated RBC/100 WBC (Bld) [Ratio] 0 % 0-[address] [facility] Work Phone: MCHC Auto (RBC) [Mass/Vol]on 10-21-2021 MCHC (RBC) [Mass/Vol] 33.2 g/dL 32-36 [facility] Work Phone: No Panel Informationon 10-21 Estimated Creatinine Clearance Calc 48.76 ml/min [facility] Work Phone: Estimated GFR (MDRD) Amer 80 mL/min >[address] [facility] Work Phone: Comment on above: GFR Calc Estimated GFR (MDRD) Non-Af Amer 66 mL/min >[address] [facility] Work Phone: Comment on above: Non- GFR Calc Thyroid Stimulating Hormone (TSH) 1.56 uIU/mL 0.358-3.[address] [facility] Work Phone: Vitamin D 25-Hydroxy 10.8 ng/mL [facility] Work Phone: Comment on above: Vitamin D 25(OH) Sta tus Range Deficiency <20 ng/mL (50nmol/L) Insufficiency 20 - 30 ng/mL (50 - 75 nmol/L) Sufficiency 30 - 100 ng/mL (75 - 250 nmol/L) Toxicity >100 ng/mL (>250 nmol/L) Platelets bldon 10-21-2021 Platelets (Bld) [#/Vol] 219 10*3/uL 150-[address] [facility] Work Phone: Serum or plasma calcium siobhan urement (mass/volume)on 10-21-2021 Calcium [Mass/Vol] 9.1 mg/dL 8.5-10.1 [facility] r [facility] Work Phone: Serum or plasma creatinine m easurement (mass/volume)on 10-21-2021 Creatinine [Mass/Vol] 1.13 mg/dL 0.70-1.30 [facility] Work Phone: Comment on above: The validity of the calculated GFR & GFRAA in patients over 70 years has not been determined. Clinical correlation is essential. Serum or plasma urea nitroge n measurement (mass/volume)on 10-21-2021 Urea nitrogen [Mass/Vol] 16 mg/dL 7-[address] [facility] Work Phone: Thin prep Papanicolaou smear with manual screeningon 10-21-2021 Thin prep Papanicolaou smear with manual screening 8 5-[address] [facility] Work Phone: Absolute lymphocyte counton 10-20-2021 Lymphocytes Auto (Unsp spec) [#/Vol] 0.59 10*3/uL 0.83-4.[address] [facility] Work Phone: Basophil percentageon 2021 Basophil percentage 5-10 SEEN /hpf 0-5 [facility] Work Phone: Basophils/100 WBC (Bld) 0.1 % 0-1 [facility] Work Phone: Chloride [Moles/Vol] 107 mmol/L 98-107 [facility] Work Phone: Eosinophils/100 WBC (Bld) 0.0 % 0-[address] [facility] Work Phone: Glucose [Mass/Vol] 110 mg/dL 74-106 [facility] Work Phone: Comment on above: Fasting Glucose resu lt from 100 to 125 mg/dL suggests IMPAIRED HOMEOSTASIS per A.D.A. criteria. Neutrophils (Bld) [#/Vol] 11.6 10*3/uL 2.0-7.[address] [facility] Work Phone: Neutrophils/100 WBC (Bld) 85.8 % 47-[address] [facility] Work Phone: Potassium [Moles/Vol] 3.6 mmol/L 3.5-5.1 [facility] Work Phone: Sodium [Moles/Vol] 141 mmol/L 136-145 [facility] Work Phone: WBC (Bld) [#/Vol] 13.5 10*3/uL 4.4-11.0 [facility] Work Phone: Bilirubin Test strip Ql (U)o n 10-20-2021 Bilirubin Ql (U) Negative Negative [facility] Work Phone: Blood erythrocytes count (nu mber/volume)on 10-20-2021 RBC (Bld) [#/Vol] 5.14 10*6/uL 4.6-6.2 [facility] Work Phone: Blood hemoglobin measurement (mass/volume)on 10-20-2021 Hemoglobin (Bld) [Mass/Vol] 15.9 g/dL 13.0-16.[address] [facility] Work Phone: Blood lymphocytes/100 leukoc yteson 10-20-2021 Lymphocytes/100 WBC (Bld) 4.4 % 19-[address] [facility] Work Phone: Blood manual differential co mment interpretation (narrative result)on 10-20-2021 Manual differential comment Wei (Bld) [Interp] SEE COMMENT [facility] Work Phone: Comment on above: LYMPHOPENIA NOTED Blood monocytes/100 leukocyt eson 10-20-2021 Monocytes/100 WBC (Bld) 9.0 % 0-10 [facility] Work Phone: Blood platelet adequacy dete ction by light microscopyon 10-20-2021 Platelets LM Ql (Bld) ADEQUATE ADEQ [facility] Work Phone: Blood platelet mean volumeon 10-20-2021 Platelet mean volume (Bld) [Entitic vol] 10.4 fL 6.2-12.[address] [facility] Work Phone: Determination of erythrocyte mean corpuscular volume (MCV)on 10-20-2021 MCV (RBC) [Entitic vol] 92.8 fL 80-94 [facility] Work Phone: Hematocrit Auto (Bld) [Volum e fraction]on 10-20-2021 Hematocrit (Bld) [Volume fraction] 47.7 % 40-[address] [facility] Work Phone: Hyaline casts LM.LPF (Urine sed) [#/Area]on 10-20-2021 Hyaline casts (Urine sed) [#/Area] 0 /[LPF] 0-[address] [facility] Work Phone: Ketones Test strip Ql (U)on 10-20-2021 Ketones Ql (U) 50 mg/dl Negative [facility] Work Phone: Laboratory - Chemistry and C hemistry - challengeon 10-20-2021 CO2 [Moles/Vol] 25.0 mmol/L 21.0-32.[address] [facility] Work Phone: Urea nitrogen/Creatinine [Mass ratio] 15.0 mg/mg 10-[address] [facility] Work Phone: Laboratory - Hematology and Cell countson 10-20-2021 Anisocytosis Ql (Bld) RARE [facility] Work Phone: Erythrocyte distribution width (RBC) [Entitic vol] 48.4 fL 35.1-43.[address] [facility] Work Phone: Erythrocyte distribution width (RBC) [Ratio] 14.4 % 11.6-14.[address] [facility] Work Phone: Immature granulocytes/100 WBC (Bld) 0.700 % 0.0-0.[address] [facility] Work Phone: Comment on above: IG% - Immature Granu locytes (promyelocytes, myelocytes and metamyelocytes) > 1% indicates that a LEFT SHIFT is Present. MCH (RBC) [Entitic mass] 30.9 pg 27.0-32.[address] [facility] Work Phone: Nucleated RBC/100 WBC (Bld) [Ratio] 0 % 0-[address] [facility] Work Phone: MCHC Auto (RBC) [Mass/Vol]on 10-20-2021 MCHC (RBC) [Mass/Vol] 33.3 g/dL 32-36 [facility] Work Phone: Macrocytes detectionon 10-20 Macrocytes Ql (Bld) RARE [facility] Work Phone: Mucus LM Ql (Urine sed)on Mucus Ql (Urine sed) 0 SEEN /hpf [facility] Work Phone: Nitrite Test strip Ql (U)on 10-20-2021 Nitrite Ql (U) Negative Negative [facility] Work Phone: No Panel Informationon 10-20 Estimated Creatinine Clearance Calc 53.23 ml/min [facility] Work Phone: Estimated GFR (MDRD) Amer 85 mL/min >[address] [facility] Work Phone: Comment on above: GFR Calc Estimated GFR (MDRD) Non-Af Amer 70 mL/min >[address] [facility] Work Phone: Comment on above: Non- GFR Calc Platelets bldon 10-20-2021 Platelets (Bld) [#/Vol] 198 10*3/uL 150-[address] [facility] Work Phone: Protein Test strip Ql (U)on 10-20-2021 Protein Ql (U) 30 mg/dl Negative [facility] Work Phone: RBC morphologyon 10-20-2021 RBC morphology finding Nom (Bld) N CHROM NORMAL NORM C&C [facility] Work Phone: Serum or plasma calcium siobhan urement (mass/volume)on 10-20-2021 Calcium [Mass/Vol] 9.1 mg/dL 8.5-10.1 [facility] r [facility] Work Phone: Serum or plasma creatinine m easurement (mass/volume)on 10-20-2021 Creatinine [Mass/Vol] 1.07 mg/dL 0.70-1.30 [facility] Work Phone: Comment on above: The validity of the calculated GFR & GFRAA in patients over 70 years has not been determined. Clinical correlation is essential. Serum or plasma urea nitroge n measurement (mass/volume)on 10-20-2021 Urea nitrogen [Mass/Vol] 16 mg/dL 7-[address] [facility] Work Phone: Squamous epithelial cells de tection in urine sediment by light microscopyon 10-20-2021 Epithelial cells.squamous LM Ql (Urine sed) 0 SEEN /hpf 0-[address] [facility] Work Phone: Thin prep Papanicolaou smear with manual screeningon 10-20-2021 Thin prep Papanicolaou smear with manual screening 9 5-[address] [facility] Work Phone: Urine blood detectionon 09-30 RBC Ql (U) 250 /ul Negative [facility] Work Phone: RBC Ql (U) 0 SEEN /hpf 0-[address] [facility] Work Phone: Urine clarityon 10-20-2021 Clarity (U) Sl. Cloudy Clear [facility] Work Phone: Urine color determinationon 10-20-2021 Color (U) Kristina Yellow [facility] Work Phone: Urine glucose detectionon Glucose Ql (U) Normal mg/dl Normal [facility] Work Phone: Urine leukocyte esterase det ection by dipstickon 10-20-2021 Leukocyte esterase Test strip Ql (U) 25 /ul Negative [facility] Work Phone: Urine pHon 10-20-2021 pH (U) 5.0 [pH] 5.0 - 8.[address] [facility] Work Phone: Urine sediment bacteria coun t by microscopy (number/high power field)on 10-20-2021 Bacteria LM.HPF (Urine sed) [#/Area] 1 /[HPF] None Seen [facility] Work Phone: Urine specific gravity measu rementon 10-20-2021 Specific gravity (U) [Rel density] 1.025 1.002-1.[address] [facility] Work Phone: Urobilinogen Auto test strip Ql (U)on 10-20-2021 Urobilinogen Ql (U) 1 mg/dl Normal [facility] Work Phone: CNOVon 09-29-2021 CNOV Office Visit (INTMWS) KEL DILLARD ([id number]) 1940 M Date Time Provider Department 09/29/21 4:40 PM NICOLAS CARDENAS INTMWS During your visit today, we recorded the following information about you: Temperature Pulse Respiration Blood pressure Normal [facility] 07-15-2021 [facility] (INTMWS) GILMAKEL SIMONS ([id number]) 1940 M Date Time Provider Department 07/15/21 NICOLAS CARDENAS INTMWS During your visit today, we recorded the following information about you: Karen Matias RN 07/15/2021 1:40 PM Signed Yesenia, Admissions staff member at [facility] calling to state patient's son Jhonny has reached out to them to request patient possibly be admitted into their memory care unit due to cognition concerns. Yesenia is requesting notes from patient's last OV be faxed to them at [phone]. This nurse contacted son Jhonny to verify the request and he confirmed it was ok to share requested information. Information faxed as requested. Karen Matias RN Allergies As of Date: 07/15/2021 (No Known Allergies) Date Reviewed: 05/12/2021 Reviewed by: Dori Martines APRN.[facility] - Fully Assessed Reason for Visit: fax [...] Status:Closed by KAREN MATIAS on 07/15/21 Normal [facility] Culture, urine Bacteria identified Cx Nom (U) Positive [facility] Work Phone: Vital Signs Date Time Vital Sign Value Performing Clinician Chris pokl 09-15-2024 13:51-0400 Body height 175.[address] David Miramontes MD Work Phone: [facility] 07-18-2025 12:10-0400 Body height 175.[address] David Miramontes MD Work Phone: [facility] 09-13-2024 11:44-0400 Body height 175.[address] David Miramontes MD Work Phone: [facility] 12-02-2022 10:40-0400 Body height 175.[address] Nicolas Cardenas Work Phone: [facility] 04-02-2022 14:41-0500 Body height 175.[address] Nicolas Cardenas Work Phone: [facility] 10-22-2021 08:30-0400 Body temperature 98.2 [degF] Dr. Nicolas Cardenas Work Phone: [facility] Work Phone: 10-22-2021 08:30-0400 Diastolic blood pressure 71 mm[Hg] Dr. Nicolas Cardenas Work Phone: [facility] Work Phone: 10-22-2021 08:30-0400 Heart rate 59 /min Dr. Nicolas Cardenas Work Phone: [facility] Work Phone: 10-22-2021 08:30-0400 Respiratory rate 16 /min Dr. Nicolas Cardenas Work Phone: [facility] Work Phone: 10-22-2021 08:30-0400 SaO2% (BldA) [Mass fraction] 95 % Dr. Nicolas Cardenas Work Phone: [facility] Work Phone: 10-22-2021 08:30-0400 Systolic blood pressure 125 mm[Hg] Dr. Nicolas Cardenas Work Phone: [facility] Work Phone: 10-21-2021 01:00-0400 Body height 175.[address] Nicolas Cardenas Work Phone: [facility] Work Phone: 10-21-2021 01:00-0400 Body mass index (BMI) [Ratio] 28.1 kg/m2 Dr. Nicolas Cardenas Work Phone: [facility] Work Phone: 10-21-2021 01:00-0400 Body weight 86.[address] Nicolas Cardenas Work Phone: [facility] Work Phone: 10-21-2021 00:46-0400 Body temperature 97.9 [degF] Dr. Nicolas Cardenas Work Phone: [facility] Work Phone: 10-21-2021 00:46-0400 Diastolic blood pressure 74 mm[Hg] Dr. Nicolas Cardenas Work Phone: [facility] Work Phone: 10-21-2021 00:46-0400 Heart rate 60 /min Dr. Nicolas Cardenas Work Phone: [facility] Work Phone: 10-21-2021 00:46-0400 Respiratory rate 25 /min Dr. Nicolas Cardenas Work Phone: [facility] Work Phone: 10-21-2021 00:46-0400 SaO2% (BldA) [Mass fraction] 94 % Dr. Nicolas Cardenas Work Phone: [facility] Work Phone: 10-21-2021 00:46-0400 Systolic blood pressure 115 mm[Hg] Dr. Nicolas Cardenas Work Phone: [facility] Work Phone: 10-20-2021 20:20-0400 Body height 175.[address] Nicolas Cardenas Work Phone: [facility] Work Phone: 10-20-2021 20:20-0400 Body mass index (BMI) [Ratio] 28.6 kg/m2 Dr. Nicolas Cardenas Work Phone: [facility] Work Phone: 10-20-2021 20:20-0400 Body weight 87.[address] Nicolas Cardenas Work Phone: [facility] Work Phone: 09-29-2021 16:45-0400 Body height 165.7 cm Nicolas Cardenas MD Work Phone: [facility] 09-29-2021 16:45-0400 Body temperature 97.3 [degF] Nicolas Cardenas MD Work Phone: [facility] 09-29-2021 16:45-0400 Body weight 87.09 kg Nicolas Cardenas MD Work Phone: [facility] 09-29-2021 16:45-0400 Diastolic blood pressure 76 mm[Hg] Nicolas Cardenas MD Work Phone: [facility] 09-29-2021 16:45-0400 Heart rate 60 /min Nicolas Cardenas MD Work Phone: [facility] 09-29-2021 16:45-0400 Respiratory rate 16 /min Nicolas Cardenas MD Work Phone: [facility] 09-29-2021 16:45-0400 Systolic blood pressure 130 mm[Hg] Nicolas Cardenas MD Work Phone: [facility] Encounters Encounter Date Encounter Type Care Provider Facility Start: 09-29-2024 End: 09-29-[address] David Miramontes MD Work Phone: -[facility] Start: 09-29-2024 End: 09-29-2024 Patient encounter procedure Dasia VASQUES -[facility] Work Phone: Start: 09-25-2024 End: 09-25-2024 [facility] Start: 09-25-2024 End: 09-25-[address] David Miramontes MD Work Phone: [facility] Start: 09-25-2024 Registered Referred David Pickett Start: 09-19-2024 End: 09-19-[address] David Miramontes MD Work Phone: [facility] Start: 09-19-2024 End: 09-19-2024 Patient encounter procedure Marimar VASQUES [facility] Work Phone: Start: 09-07-2024 ambulatory Efewongbe Oleghe Facili ty:[facility] Start: 09-07-2024 Registered Referred David Pickett Start: 08-31-2024 ambulatory Efewongbe Oleghe Facili ty:[facility] Start: 08-31-2024 Registered Referred David Pickett Start: 08-29-2024 End: 08-29-[address] David Miramontes MD Work Phone: [facility] Start: 08-29-2024 End: 08-29-[address] David Miramontes MD -[facility] Work Phone: Start: 08-25-2024 End: 08-25-[address] David Miramontes MD Work Phone: [facility] Start: 08-25-2024 End: 08-25-2024 [facility] [place] [facility] Start: 08-22-2024 ambulatory Efewongbe Oleghe Facili ty:[facility] Start: 08-22-2024 Registered Referred David Pickett Start: 08-21-2024 End: 08-21-[address] David Miramontes MD Work Phone: [facility] Start: 08-21-2024 End: 08-21-2024 Patient encounter procedure Marimar Zimmer [facility] Work Phone: Start: 08-21-2024 End: 08-21-[address] David Miramontes MD Work Phone: [facility] Start: 08-21-2024 End: 08-21-[address] Edson Quinn MD -[facility] Work Phone: Start: 08-15-2024 End: 08-15-[address] David Miramontes MD Work Phone: [facility] Start: 08-15-2024 End: 08-15-2024 Patient encounter procedure Marimarjacinto Zimmer [facility] Work Phone: Start: 08-02-2024 ambulatory Efewongbe Oleghe Facili ty:[facility] Start: 08-02-2024 Registered Referred David Pickett Start: 08-01-2024 ambulatory Efewongbe Oleghe Facili ty:[facility] Start: 08-01-2024 Registered Referred David Pickett Start: 07-21-2024 ambulatory Efewongbe Oleghe OLS Fa cility:[facility] Start: 07-21-2024 Registered Referred David Pickett Start: 07-20-2024 End: 07-20-[address] David Miramontes MD Work Phone: [facility] Start: 07-20-2024 End: 07-20-2024 Patient encounter procedure Marimar Zimmer [facility] Work Phone: Start: 07-18-2024 End: 07-18-[address] David Miramontes MD Work Phone: [facility] Start: 07-18-2024 End: 07-18-[address] David Miramontes MD -[facility] Work Phone: Start: 07-17-2024 End: 07-17-2024 Follow-up encounter Diana Ochoa [employer]PUTER SYSTEMS SOFTWARE ENGINEER.HAND PATTERN MARKER Work Phone: [facility] Comment on above: Results Start: 07-14-2024 End: 07-14-2024 Office outpatient new 30 minutes Diana Ochoa [employer]PUTER SYSTEMS SOFTWARE ENGINEER.HAND PATTERN MARKER Work Phone: [facility] Comment on above: Gross hematuria (Lise wallace Dx) Start: 07-14-2024 End: 07-14-2024 ambulatory DIANA DMITRY POSTLETHWAIT Facility:[facility] Start: 07-04-2024 End: 07-04-[address] David Miramontes MD Work Phone: [facility] Start: 07-04-2024 End: 07-04-2024 Patient encounter procedure Marimar Zimmer NP-C[facility] -[facility] Work Phone: Start: 06-23-2024 End: 06-23-[address] David Miramontes MD Work Phone: [facility] Work Phone: Start: 06-23-2024 End: 06-23-2024 Departed Referred David Pickett Start: 06-23-2024 End: 06-23-2024 ambulatory David GARCIA Facility:[facility] Start: 06-05-2024 End: 06-05-[address] David Miramontes MD Work Phone: [facility] Work Phone: Start: 06-05-2024 End: 06-05-2024 Departed Referred David Schaferngton Start: 06-05-2024 Registered Referred David AdamKrystle Pickett Start: 06-05-2024 End: 06-05-2024 ambulatory David Miramontes OLS Facility:[facility] Start: 05-30-2024 ambulatory David Miramontes OLS Fa cility:[facility] Start: 05-30-2024 Non-patient / Non-visit Dr. Josiah Klein MD -[facility] Start: 05-30-2024 End: 05-30-[address] David Miramontes MD -[facility] Work Phone: Start: 05-30-2024 End: 05-30-2024 ambulatory Efwaynecarleen Miramontes Facility:[facility] Start: 05-30-2024 End: 05-30-2024 Patient encounter procedure Marimar Zimmer ACUTE DIALYSIS REGISTERED NURSEKia -[facility] Work Phone: Start: 05-30-2024 End: 05-30-[address] David Miramontes MD Work Phone: [facility] Work Phone: Start: 05-30-2024 End: 05-30-2024 Departed Referred David AdamKrystle Pickett Start: 05-30-2024 Registered Referred David AdamKrystle Pickett Start: 05-30-2024 End: 05-30-2024 ambulatory Efwaynecarleen Miramontes Facility:[facility] Start: 05-23-2024 End: 05-23-2024 ambulatory Efewfeliciaingris Oleamnatereza Facility:[facility] Start: 05-23-2024 End: 05-23-[address] David Miramontes MD -[facility] Work Phone: Start: 05-22-2024 End: 05-22-[address] David Miramontes MD Work Phone: [facility] Work Phone: Start: 05-22-2024 End: 05-22-2024 Departed Referred David AdamKrystle Pickett Start: 05-22-2024 Registered Referred David AdamKrystle Pickett Start: 05-22-2024 End: 05-22-[address] Edson Quinn MD -[facility] Work Phone: Start: 05-22-2024 End: 05-22-2024 ambulatory Efewongbe Oleghe Facility:[facility] Start: 05-18-2024 End: 05-18-2024 ambulatory Efewongbe Oleghe Facility:[facility] Start: 05-18-2024 End: 05-18-2024 Patient encounter procedure Marimar [facility] Work Phone: Start: 05-13-2024 End: 05-13-2024 ambulatory Edson Quinn Facility:[facility] Start: 05-13-2024 End: 05-13-[address] Edson Quinn MD -[facility] Work Phone: Start: 05-11-2024 End: 05-11-2024 ambulatory Efewongbe Oleghe Facility:[facility] Start: 05-11-2024 End: 05-11-2024 Patient encounter procedure Marimar VASQUES -[facility] Work Phone: Start: 05-01-2024 End: 05-01-2024 ambulatory Efewongbe Oleamnae Facility:[facility] Start: 05-01-2024 End: 05-01-2024 Patient encounter procedure Marimar VASQUES -[facility] Work Phone: Start: 04-19-2024 End: 04-19-2024 ambulatory Efewongbe Oleamnae Facility:[facility] Start: 04-19-2024 End: 04-19-2024 Patient encounter procedure Marimar [facility] Work Phone: Start: 04-17-2024 ambulatory Efewongbe Oleghe Facili ty:[facility] Start: 04-17-2024 Registered Referred David AdamKrystle [facility] Start: 04-13-2024 ambulatory Efewongbe Oleghe Facili ty:[facility] Start: 04-13-2024 Registered Referred David AdamKrystle [facility] Start: 04-11-2024 End: 04-11-2024 ambulatory Efewongbe Oleghe Facility:[facility] Start: 04-11-2024 End: 04-11-[address] [facility]: Start: 04-07-2024 ambulatory Efewongbe Oleghe Facili ty:[facility] Start: 04-07-[address] [facility] Start: 04-04-2024 ambulatory Efewongbe Oleghe Facili ty:[facility] Start: 04-04-2024 [facility] Start: 03-13-2024 End: 03-13-2024 ambulatory Efewongbe Oleghe Facility:[facility] Start: 03-13-2024 End: 03-13-2024 Patient encounter procedure Marimar VASQUES -[facility] Work Phone: Start: 03-02-2024 End: 03-02-2024 ambulatory Efewongbe Oleghe Facility:[facility] Start: 03-02-2024 End: 03-02-2024 Patient encounter [facility] Work Phone: Start: 02-15-2024 End: 02-15-2024 ambulatory Efewongbe Oleghe Facility:[facility] Start: 02-15-2024 End: 02-15-[address] [facility] Work [facility]: Start: 02-14-2024 End: 02-14-2024 ambulatory Efewongbe Oleghe Facility:[facility] Start: 02-14-2024 End: 02-14-[address] [facility] Work Phone: Start: 02-03-2024 ambulatory Efewongbe Oleghe Facili ty:[facility] Start: 01-12-2024 End: 01-12-2024 ambulatory Efewongbe Oleghe Facility:[facility] Start: 01-04-2024 ambulatory Efewongbe Oleghe Facili ty:[facility] Start: 12-28-2023 End: 12-28-2023 ambulatory Efewongbe Oleghe Facility:[facility] Start: 12-07-2023 End: 12-07-2023 ambulatory Efewongbe Oleghe Facility:[facility] Start: 11-15-2023 End: 11-15-2023 ambulatory Efewongbe Oleghe Facility:[facility] Start: 11-08-2023 End: 11-08-2023 ambulatory Efewongbe Oleghe Facility:[facility] Start: 10-27-2023 End: 10-27-2023 ambulatory Efewongbe Oleghe Facility:[facility] Start: 04-06-2023 End: 04-06-[address] Nicolas Cardenas Work Phone: [facility] Work Phone: Start: 04-06-2023 End: 04-06-[address] Nicolas Cardenas Work Phone: [facility] Start: 02-02-2023 End: 02-02-[address] Nicolas Cardenas Work Phone: [facility] Work Phone: Start: 01-15-2023 End: 01-15-[address] Nicolas Cardenas Work Phone: [facility] Work Phone: Start: 12-30-2022 End: 12-30-[address] Nicolas Cardenas Work Phone: [facility] Work Phone: Start: 12-30-2022 End: 12-30-[address] Nicolas Cardenas Work Phone: [facility] Start: 11-23-2022 End: 11-23-[address] Nicolas Cardenas Work Phone: [facility] Work Phone: Start: 11-17-2022 End: 11-17-[address] Nicolas Cardenas Work Phone: [facility] Work Phone: Start: 10-06-2022 End: 10-06-[address] Nicolas Cardenas Work Phone: [facility] Work Phone: Start: 09-29-2022 End: 09-29-[address] Nicolas Cardenas Work Phone: [facility] Start: 09-23-2022 End: 09-23-[address] Nicolas Cardenas Work Phone: [facility] Work Phone: Start: 06-29-2022 End: 06-29-[address] Nicolas Cardenas Work Phone: [facility] Work Phone: Start: 06-29-2022 End: 06-29-[address] Nicolas Cardenas Work Phone: [facility] Start: 06-23-2022 End: 06-23-[address] Nicolas Cardenas Work Phone: [facility] Start: 06-05-2022 ambulatory Yoli johnson [employer] Comment on above: Population Health Na vigation Outreach ([facility]ER[facility]) Start: 05-18-2022 End: 05-18-[address] Nicolas Cardenas Work Phone: [facility] Start: 04-14-2022 End: 04-14-[address] Nicolas Cardenas Work Phone: [facility] Start: 04-01-2022 End: 04-01-[address] Nicolas Cardenas Work Phone: [facility] Work Phone: Start: 04-01-2022 End: 04-01-[address] Nicolas Cardenas Work Phone: [facility] Start: 03-16-2022 End: 03-16-[address] Nicolas Cardenas Work Phone: [facility] Start: 02-24-2022 End: 02-24-[address] Nicolas Cardenas Work Phone: [facility] Start: 01-07-2022 End: 01-07-[address] Nicolas Cardenas Work Phone: [facility] Start: 01-05-2022 End: 01-05-[address] Nicolas Cardenas Work Phone: [facility] Start: 12-24-2021 End: 12-24-[address] Nicolas Cardenas Work Phone: [facility] Work Phone: Start: 12-24-2021 End: 12-24-[address] Nicolas Cardenas Work Phone: [facility] Start: 12-24-[address] Nicolas Cardenas Work Phone: [facility] Start: 12-15-2021 End: 12-15-[address] Nicolas Cardenas Work Phone: [facility] Start: 12-10-2021 End: 12-10-[address] Nicolas Cardenas Work Phone: [facility] Work Phone: Start: 12-10-2021 End: 12-10-[address] Nicolas Cardenas Work Phone: [facility] Start: 12-10-[address] Nicolas Cardenas Work Phone: [facility] Start: 12-09-2021 Telephone encounter Nicolas gutierrez MD Work Phone: [facility] [place] Comment on above: form dropping off Start: 11-26-2021 End: 11-26-[address] Nicolas Cardenas Work Phone: [facility] Work Phone: Start: 11-26-2021 End: 11-26-[address] Nicolas Cardenas Work Phone: [facility] Start: 11-12-[address] Nicolas Cardenas Work Phone: [facility] Start: 10-29-[address] Nicolas Cardenas Work Phone: [facility] Start: 10-23-2021 Telephone encounter Nicolas gutierrez MD Work Phone: [facility] [place] Comment on above: Patient Update Start: 10-22-2021 Non-patient / Non-visit Dr. Nicolas Cardenas Work Phone: [facility] Start: 10-21-2021 Non-patient / Non-visit Dr. Nicolas Cardenas Work Phone: [facility] Start: 10-20-2021 Non-patient / Non-visit Dr. Nicolas Cardenas Work Phone: [facility] Start: 10-20-2021 End: 10-22-2021 Evaluation and management of inpatient Dr. Nicolas Cardenas Work Phone: [facility] Surgical 3 Start: 10-20-2021 End: 10-22-[address] Nicolas Cardenas Work Phone: 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 David Miramontes MD Work Phone: Start: 07-14-2024 BLADDER SCAN Diana Linares [employer] COMPUTER SYSTEMS SOFTWARE ENGINEER.HAND PATTERN MARKER Work Phone: Start: 07-14-2024 Urnls dip stick/tabl et rgnt auto w/o microscopy Diana Ochoa [employer] COMPUTER SYSTEMS SOFTWARE ENGINEER.HAND PATTERN MARKER Work Phone: Start: 05-30-[address] [...] Dr. Nicolas Cardenas Work Phone: Start: 09-29-2021 [facility]ER-BIONTUrgent Group COVI D-19 VACCINE, AGE 12+ YR (LANGE TOP) Nicolas Cardenas MD Work Phone: Urine culture Dr. Nicolas Farley Work Phone: Viral antigen assay Dr. Filiberto Cardenas Work Phone: Plan of Treatment Date Care Activity Detail Author Start: 10-30-2024 Influenza vaccination Influenz a Vaccine (Season Ended) [facility] Start: 09-25-2024 Microbial culture, routine Wound Cul ture [facility] Start: 09-25-2024 [facility] Start: 04-22-2024 DIABETES SCREEN DIABETES SCREEN [facility] Start: 04-22-2024 Diabetes Screening Diabetes Screenin g [facility] Start: 03-01-2024 Advance Directive Discussion Advance Directive Discussion [facility] Start: 10-31-2023 Covid-19 Vaccine ( season) Covid-19 Vaccine ( season) [facility] Start: 10-30-2022 Influenza vaccination INFLUENZ A (Season Ended) [facility] Start: 05-12-2022 SHINGRIX VACCINE (2 of 3) DUMAS GRIX VACCINE (2 of 3) [facility] Comment on above: Postponed from 07/18 (Declined at this time) Start: 03-01-2022 ADVANCE DIRECTIVE DISCUSSION ADVANCE DIRECTIVE DISCUSSION [facility] Start: 11-24-2021 COVID-19 VACCINE (5 - Booster for Pfizer series) COVID-19 VACCINE (5 - Booster for Pfizer series) [facility] Start: 10-30-2021 Influenza vaccination INFLUENZA (#1) [facility] Start: 10-22-2021 Patient discharge [facility] Work Phone: Start: 10-21-2021 Following clinical p athway protocol [facility] Work Phone: Start: 10-21-2021 Assessment of risk o f venous thromboembolism [facility] Work Phone: Start: 10-21-2021 Insertion of cathete r into peripheral vein [facility] Work Phone: Start: 10-21-[address] [facility] Work Phone: Start: 10-21-2021 Providing care accor ding to standard [facility] Work Phone: Start: 10-21-2021 Provision of activit y privileges [facility] Work Phone: Start: 10-21-2021 Referral to occupati onal therapist [facility] Work Phone: Start: 10-21-2021 Referral to service [facility] Work Phone: Start: 10-21-2021 [facility] Work Phone: Start: 10-21-2021 Verification routine [facility] Work Phone: Start: 10-21-2021 CT angiography of he ad and neck CTA Head AND Neck W/ Contrast [facility] Work Phone: Start: 10-21-2021 CTA Head vessels and Neck vessels W contrast IV [facility] Work Phone: Start: 10-20-2021 [facility] Work Phone: Start: 10-20-2021 Admission procedure [facility] Work Phone: Start: 09-11-2021 COVID-19 VACCINE (4 - Booster for Pfizer series) COVID-19 VACCINE (4 - Booster for Pfizer series) [facility] Start: 08-23-2021 Urine microalbumin profile [facility] Comment on above: Postponed from 07/15 (Declined at this time) Start: 2014 RSV Vaccine (1 - 1-d ose 75+ series) RSV Vaccine (1 - 1-dose 75+ series) [facility] Start: 07-18-2013 SHINGRIX VACCINE (2 of 3) DUMAS GRIX VACCINE (2 of 3) [facility] Start: 07-15-2010 Urine microalbumin profile [facility] CYTOLOGY NON-INSURANCE MANAGER CYTOLOGY NON-GY N Lab Routine Gross hematuria Ordered: 07/14/2024 [facility] Work Phone: Comment on above: Ordered: 07/14/2024 Patient Education ED Fall with Uncertain Cause [facility] Work Phone: Patient referral [facility] Work Phone: [facility] Immunizations Immunization Date Immunization Notes Care Provider Fa cili 09-29-2021 COVID-19 vaccine, ag e 12+ yr (PFIZER-BIONTECH - LANGE TOP) Nicolas Cardenas MD Work Phone: [facility] Work Phone: 05-12-2021 COVID-19 vaccine, ag e 12+ yr (PFIZER-BIONTECH - LANGE TOP) Nicolas Cardenas MD Work Phone: [facility] 03-31-2021 influenza, high-dose , quadrivalent vaccine (FLUZONE HIGH DOSE QUADRIVALENT) Nicolas Cardenas MD Work Phone: [facility] Work Phone: 03-31-2021 influenza virus vaccine, unspecified formulation Diana Arango APRN.CNP Work Phone: [facility] 06-17-2020 COVID-19 vaccine, ag e 12+ yr (PFIZER-BIONTECH - PURPLE TOP) Nicolas Cardenas MD Work Phone: [facility] Work Phone: 05-27-2020 COVID-19 vaccine, ag e 12+ yr (PFIZER-BIONTECH - PURPLE TOP) Nicolas Cardenas MD Work Phone: [facility] Work Phone: 04-22-2020 influenza, high-dose , quadrivalent vaccine (FLUZONE HIGH DOSE QUADRIVALENT) Nicolas Cardenas MD Work Phone: [facility] Work Phone: 01-19-2019 influenza, high dose seasonal, preservative-free Nicolas Cardenas MD Work Phone: [facility] 02-03-2018 influenza, high dose seasonal, preservative-free Nicolas Cardenas MD Work Phone: [facility] 01-18-2017 influenza, high dose seasonal, preservative-free Nicolas Cardenas MD Work Phone: [facility] 12-27-2015 influenza, high dose seasonal, preservative-free Nicolas Cardenas MD Work Phone: [facility] 12-26-2014 influenza, high dose seasonal, preservative-free Nicolas Cardenas MD Work Phone: [facility] 06-26-2014 pneumococcal conjuga te vaccine, 13 valent Nicolas Cardenas MD Work Phone: [facility] 12-28-2013 influenza, seasonal, injectable Nicolas Cardenas MD Work Phone: [facility] 05-23-2013 zoster vaccine, live Nicolas Cardenas MD Work Phone: [facility] 07-14-2010 tetanus and diphther ia toxoids, adsorbed, preservative free, for adult use (2 Lf of tetanus toxoid and 2 Lf of diphtheria toxoid) Nicolas Cardenas MD Work Phone: [facility] Work Phone: 01-13-2006 pneumococcal polysaccharide vaccine, 23 valent Nicolas Cardenas MD Work Phone: [facility] Payers Date Payer Category Payer Self-pay [id number] 2013 Private Health Insurance [facility] AARP SUPPLEMENT [id number] 2013-Present [phone] [address] [place] [address] Indemnity [id number] 2013 Private Health Insurance [id number] 2013 Unknown [id number] 2004 Medicare MEDICARE MEDICAR E A AND B [id number] 2004-Present [phone] [address] [address] [place] [address] Medicare [id number] 2004 Medicare [id number] 2004 Medicare [id number] Private Health Insurance [facility] [id number] Unknown [id number] 2.16.840.1.884657.3.579.2 .462 Unknown [id number] 2.16.840.1.494874.3.579.2 .462 Unknown [id number] 2.16.840.1.101750.3.579.2 .462 Unknown [id number] 2.16.840.1.105022.3.579.2 .462 Unknown [id number] 2.16.840.1.981588.3.579.2 .462 Unknown [id number] 2.16.840.1.515202.3.579.2 .462 Unknown [id number] 2.16.840.1.166710.3.579.2 .462 Unknown [id number] 2.16.840.1.228687.3.579.2 .462 Unknown [id number] 2.16.840.1.657061.3.579.2 .462 Unknown [id number] 2.16.840.1.721429.3.579.2 .462 Unknown [id number] 2.16.840.1.444887.3.579.2 .462 Unknown [id number] 2.16.840.1.732275.3.579.2 .462 Unknown [id number] 2.16.840.1.286409.3.579.2 .462 Unknown [id number] 2.16.840.1.053607.3.579.2 .462 Unknown [id number] 2.16840.1.057117.3.579.2 .462 Unknown [id number] 2.16840.1.831207.3.579.2 .462 Unknown [id number] 2.16840.1.351523.3.579.2 .462 Unknown [id number] 2.16840.1.967805.3.579.2 .462 Unknown [id number] 2.840.1.811897.3.579.2 .462 Unknown [id number] 2.840.1.869957.3.579.2 .462 Unknown [id number] 2.840.1.122807.3.579.2 .462 Unknown [id number] 2.16840.1.459855.3.579.2 .462 Unknown [id number] 2.16840.1.420947.3.579.2 .462 Unknown [id number] 2.16840.1.443976.3.579.2 .462 Unknown [id number] 2.16840.1.437830.3.579.2 .462 Unknown [id number] 2.16840.1.837545.3.579.2 .462 Unknown [id number] 2.16840.1.066561.3.579.2 .462 Unknown [id number] 2.16840.1.308933.3.579.2 .462 Unknown [id number] 2.16840.1.356268.3.579.2 .462 Unknown [id number] 2.16.840.1.382297.3.579.2 .462 Unknown [id number] 2.16.840.1.276308.3.579.2 .462 Unknown [id number] 2.16.840.1.680206.3.579.2 .462 Unknown [id number] 2.16.840.1.978463.3.579.2 .462 Unknown [id number] 2.16.840.1.432026.3.579.2 .462 Unknown [id number] 2.16.840.1.726572.3.579.2 .462 Unknown [id number] 2.16.840.1.948697.3.579.2 .462 Unknown [id number] 2.16.840.1.879684.3.579.2 .462 Unknown [id number] 2.16.840.1.130433.3.579.2 .462 Unknown [id number] 2.16.840.1.824102.3.579.2 .462 Unknown [id number] 2.16.840.1.300621.3.579.2 .462 Unknown [id number] 2.16.840.1.008260.3.579.2 .462 Unknown [id number] 2.16.840.1.339714.3.579.2 .462 Unknown [id number] 2.16.840.1.686507.3.579.2 .462 Unknown [id number] 2.16.840.1.179758.3.579.2 .462 Unknown [id number] 2.16.840.1.549695.3.579.2 .462 Unknown [id number] 2.16.840.1.377962.3.579.2 .462 Unknown [id number] 2.16.840.1.021537.3.579.2 .462 Unknown [id number] 2.16.840.1.329843.3.579.2 .462 Unknown [id number] 2.16.840.1.396052.3.579.2 .462 Unknown [id number] 2.16.840.1.481490.3.579.2 .462 Unknown [id number] 2.16.840.1.887493.3.579.2 .462 Unknown [id number] 2.16840.1.276638.3.579.2 .462 Unknown [id number] 2.16840.1.425562.3.579.2 .462 Social History Date Type Detail Facility Start: 04-22-2012 End: 09-15-2024 Tobacco smoking status NHIS Ex-smoker [facility] Start: [birth year]-01-1949 End: 03-01-1959 History of tobacco use Current smoker [facility] Start: 03-01-1949 End: 03-01-1959 History of tobacco use Cigarette Smoker [facility] Start: 05-12-2021 End: 07-14-2024 Alcohol intake Current non-drinker of alcohol (finding) [facility] Start: 1940 Sex Assigned At Not on file C [facility] Start: 09-19-2021 End: 09-29-2021 Exposure to SARS-CoV-2 (event) Not sure [facility] Work Phone: Start: 10-21-2021 End: 12-02-2022 Tobacco smoking status [facility] Unknown if ever smoked [facility] Start: 1940 Sex Assigned At Male W [facility] Start: 04-22-2012 End: 07-14-2024 Cigarettes smoked current (pack per day) - Reported 1 [facility] Start: 04-22-2012 Tobacco use and exposure Smokeless tobacco non-user [facility] Work Phone: Start: 06-05-2024 End: 06-21-2024 Sex Male (finding) [facility] Start: 02-03-2018 End: 07-14-2024 Tobacco use panel [facility] Adult Depression Screening Assessment 0 [facility] Goals Date Patient Goal Desired Activity /State Functional Status Date Assessment Result Facility 10-22-2021 Functional status Bedrest [facility] Work Phone: 06-26-2014 Are you deaf, or do you have serious difficulty hearing No 06/26/2014 10:08 AM EDT Chris MooreAnjelica [facility] 06-26-2014 Are you blind, or do you have serious difficulty seeing, even when wearing glasses No 06/26/2014 10:08 AM EDT Chris MooreAnjelica [facility] 06-26-2014 Do you have serious difficulty walking or climbing stairs No 06/26/2014 10:08 AM EDT Chris Moore Anjelica No [facility] 06-26-2014 Do you have difficul ty dressing or bathing No 06/26/2014 10:08 AM EDT Chris Moore Anjelica Sarah [facility] 06-26-2014 Because of a physica l, mental, or emotional condition, do you have difficulty doing errands alone such as visiting a physician's office or shopping No 06/26/2014 10:08 AM EDT Chris MooreAnjelica [facility] Mental Status Date Assessment Result Facility 10-22-2021 Cognitive function Voice/Name [facility] Work Phone: 10-20-2021 Cognitive function Appropriate;Cony starks [facility] Work Phone: 06-26-2014 Because of a physica l, mental, or emotional condition, do you have serious difficulty concentrating, remembering, or making decisions No 06/26/2014 10:08 AM EDT Chris Moore Anjelica Sarah [facility] Clinical Notes 09-16-2018 to 07-17-2024 [...] has no further questions. Stefany Mcclure RN [facility] Work Phone: 07-17-2024 Miscellaneous Notes [...] if he wishes. documented in this encounter [facility] 07-17-2024 Telephone encounter Note ----- Message from Diana Arango APRN.HAND PATTERN MARKER sent at 07/17/2024 11:12 AM EDT ----- Please notify patient/patient's son that patient's cytology came back negative for high-grade urothelial carcinoma. This is great news! Given his mentation and mobility -- we could hold off on CT/cysto if he wishes. [facility] 07-14-2024 History of Present illness Narrative Images from the original note were not included. [facility] U[facility] - [place] [facility]OL JUAN NEW PATIENT UROLOGY VISIT 07/14/2024 [...] (no units) Date Value 08/12/2018 Negative Specific [facility], [facility] (no units) Date Value 08/12/2018 1.018 [...] intervention based on that result. - CYTOLOGY NON-INSURANCE MANAGER - Call son with results. Will make treatment plan decision from there. Follow-up as needed. Diana Arango APRN.HAND PATTERN MARKER documented in this encounter [facility] 07-14-2024 Note HNO ID: [id number] Author: DIANA ARANGO APRN.HAND PATTERN MARKER Service: ? Author Type: Nurse Practitioner Type: Progress Notes Filed: 07/14/2024 09:11 Note Text: [facility] [place] [facility] 07/14/2024 8:51 [...] baseline. Psychiatric: (more content not included)... [facility] 06-05-2022 Note HNO ID: [id number] Author: Yoli Garner Service: ? Author Type: ? Type: Progress Notes Filed: 06/05/2022 2:00 PM Note Text: POPULATION HEALTH NAVIGATION OUTREACH Action/ attempt: Spoke to patient's daughter. Patient now resides at [facility] and receives medical care there. Patient Identified [...] Yoli Garner June 05, 2022 1:58 PM [facility] 06-05-2022 Note Patient Outreach (NE TNAV) ---- KEL DILLARD ([id number]) 1940 M Date Time Provider Department 06/05/22 YOLI GARNER During your visit today, we recorded the following information about you: Yoli Garner 06/05/2022 2:00 PM Signed POPULATION HEALTH NAVIGATION OUTREACH Action/ 1st attempt: Spoke to patient's daughter. Patient now resides at [facility] and receives medical care there. Patient Identified [...] DISCUSSION due on 03/01/2022 Navigation Signature: Yoli Pandaleylascott June 05, 2022 1:58 PM Allergies As [...] Encounter Status:Closed by YOLI GARNER on 06/05/22 [facility] 06-05-2022 History of Present illness Narrative POPULATION HEALTH NAVIGATION OUTREACH Action/ 1st attempt: Spoke to patient's daughter. Patient now resides at [facility] and receives medical care there. Patient Identified [...] 2022 1:58 PM documented in this encounter [facility] 12-11-2021 Miscellaneous Notes Forms pts son brought in have been sent to medical records. Pts son notified. He can pick them up there. Son (Jhonny) calls in and provider message reviewed. Son asking if form brought in can be picked back up in Medical Records. Please contact Jhonny at [phone]. Preethi Delgadillo RN I have not seen him since hospital stay and he is now under the [place] attending physician's care. It is more appropriate for the [place] attending physician to do another form. More statements need corrected/updated Form to pcp to review. Patient son Jhonny calling said PCP completed expert evaluation form on 09/29 for guardianship and bilingual sales consultant said question number 11 needs revised. Son Jhonny said 2 weeks after form was done father had fall and was taken to [facility] then sent to [facility] for rehab. Now father is in memory care unit, his dementia is at 6 out of 7. Son is going to drop off new form to be competed, since father can not care for himself or do anything for himself. Please advise documented in this encounter [facility] 10-23-2021 Miscellaneous Notes Per [facility] discharge info pt was discharged to [facility] 10/22/21. documented in this encounter [facility] 09-29-2021 Note HNO ID: [id number] Author: Nicolas Cardenas MD Service: ? Author Type: Physician Type: Progress Notes Filed: 09/29/2021 6:08 PM Note Text: This note was created using [email or web address]. Subjective Kel Dillard is a 81 year old male. He was here with his son. He was home bound due to memory loss and cognitive deficits. He gets lost if he wandered outside. Son was here with form requesting guardianship. This was part of POA he was establishing. They were exploring jail placement in anticipation of need, but Kel [...] willingness to follow recommendations. Nicolas Cardenas MD [facility] 09-29-2021 Note HNO ID: [id number] Author: Nicolas Cardenas MD Service: ? Author Type: Physician Type: Progress Notes Filed: 09/29/2021 6:08 PM Note Text: Medicare Yearly Visit Medical B eligibilty date 2005 Date of last exam 08/23/2020 PAST MEDICAL [...] current specialists seen: Pulmonary- Dr. Valle Cardiology- [facility] Electronic Tester- Barb End of Live Planning discussed including [...] and Tdap at pharmacy Nicolas Cardenas MD [facility] 09-29-2021 History of Present illness Narrative This note was created using [email or web address]. Subjective Kel Dillard is a 81 year old male. He was here with his son. He was home bound due to memory loss and cognitive deficits. He gets lost if he wandered outside. Son was here with form requesting guardianship. This was part of POA he was establishing. They were exploring jail placement in anticipation of need, but Kel [...] current specialists seen: Pulmonary- Dr. Valle Cardiology- [facility] Electronic Tester- Barb End of Live Planning discussed including [...] Nicolas Cardenas MD documented in this encounter [facility] 07-15-2021 Miscellaneous Notes Yesenia, Admissions staff member at [facility] calling to state patient's son Jhonny has reached out to them to request patient possibly be admitted into their memory care unit due to cognition concerns. Yesenia is requesting notes from patient's last OV be faxed to them at [phone]. This nurse contacted son Jhonny to verify the request and he confirmed it was ok to share requested information. Information faxed as requested. Karen Matias RN documented in this encounter [facility] 09-16-2018 History of Past i [...] of this encounter (statuses as of 07/15/2021) [facility] History of Past illness Narrative* [...] of this encounter (statuses as of 09/29/2021) [facility] History of Past illness Narrative* [...] of this encounter (statuses as of 10/23/2021) [facility] History of Past illness Narrative* [...] of this encounter (statuses as of 12/11/2021) [facility] History of Past illness Narrative* Problem Noted Date Resolved Date Gross hematuria 09/16/2018 12/13/2018 Overview: Urology appointment 09/20/18: patient will have CT abd/pelvis and office cystoscopy Chronic midline low back pain without sciatica 0 07/19/2017 05/26/2019 Occult GI bleeding 05/25/2013 01/18/2017 Mild memory disturbance 05/23/2013 12/14/19 Bladder neck obstruction 08/22/2007 013 Diverticulosis of colon (without mention of hemo rrhage) 08/31/2006 06/26/2014 ELEVATED PROSTATE SPECIFIC ANTIGEN 03/10/2005 06/26/2014 Personal history of colonic polyps 03/10/2005 06/26/2014 documented as of this encounter (statuses as of 06/05/2022) [facility] note* Diagnosis Medicare annual wellness visit, subsequent- Primary Routine general medical examination at a health care facility Cognitive impairment Unspecified persistent mental disorders due to conditions classified elsewhere Essential tremor Essential and other specified forms of tremor Essential hypertension, benign Need for COVID-19 vaccine 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 Work Phone: Evaluation noteNo assessment information available [facility] Work Phone: Evaluation note* Diagnosis Gross hematuria- Primary documented in this encounter [facility] for referral (narrative)No reason for [facility] Work Phone: Advance Directives No Advanced Directives Records FoundDocuments on File Type Date Recorded Patient Morning Show Host Expl anation Advance Directive(s) 04/29/2021 2:28 PM Advance Directive(s) 09/08/2016 1:42 PM Advance Directive(s) 08/31/2016 10:18 AM Advance Directive(s) 04/09/2016 12:30 PM Advance Directive(s) 04/06/2016 10:07 AM Advance Directive(s) 10/09/2011 11:10 AM Advance Directive Response Recorded Date/ Time Advance Directives No October 10:42am Living Will No October 20 8:26pm Power of Home Extension Agent No October 20 8:26pm Advance Directive Response Recorded Date/ Time Advance Directives No October 10:42am Living Will No October 21 1:16am Power of Home Extension Agent No October 21, 2 022 1:16am Documents on File Type Date Recorded Patient Morning Show Host Expl anation Advance Directive(s) 04/29/2021 2:28 PM Advance Directive(s) 10/09/2011 11:10 AM Advance Directive Response Recorded Date/ Time Advance Directives No April 02, 2022 2:41pm Living Will No April 02 2:41pm Power of Home Extension Agent No April 02, 2022 2:41pm Advance Directive Response Recorded Date/ Time Advance Directives No April 02, 2022 3:41pm Living Will No April 02 3:41pm Power of Home Extension Agent No April 02, 2022 3:41pm Advance Directive Response Recorded Date/ Time Advance Directives No December 02, 2022 9:40am Living Will No December 02 9:40am Power of Home Extension Agent No December 02, 023 9:40am Advance Directive Response Recorded Date/ [...] DEBILITY FALL, DEBILITY LAB WORK LAB WORK CORRECTION LAB WORK MONTHLY EXAM Chief Complaint FALL, DEBILITY FALL, DEBILITY FALL, DEBILITY FALL, DEBILITY LAB WORK LAB WORK CORRECTION LAB WORK CORRECTION LABWORK MONTHLY EXAM Chief Complaint FALL, DEBILITY FALL, DEBILITY FALL, DEBILITY FALL, DEBILITY LAB WORK LAB WORK CORRECTION LAB WORK CORRECTION LABWORK MONTHLY EXAM CORRECTION LAB WORK Chief Complaint CORRECTION LAB WOR K MONTHLY EXAM CORRECTION LAB WORK MONTHLY EXAM MONTHLY EXAM CORRECTION LAB WORK Chief Complaint MONTHLY EXAM CORRECTION LAB WORK MONTHLY EXAM new problem MONTHLY EXAM CORRECTION LABWORK Chief Complaint MONTHLY EXAM CORRECTION LAB WORK MONTHLY EXAM ANNUAL EXAM MONTHLY EXAM CORRECTION LAB WORK Chief Complaint CORRECTION LAB WOR K NEW CONCERN MONTHLY EXAM LABWORK Chief Complaint Admit Date Pacer Check Remote February 14, 2024 12:11am MONTHLY EXAM February 15, 2024 9:13pm MONTHLY EXAM March 02, 2024 11 :09am NEW CONCERN March 13, 2024 1 :23pm CORRECTION LAB WORK April 04, 2024 5:00am CORRECTION LAB WORK April 07, 2024 4:00am CORRECTION LAB WORK April 07, 2024 10:45am MONTHLY EXAM April 11, 2024 12:58pm CORRECTION LAB WORK April 13 5:00am LABWORK April [...] NEW CONCERN March 13, 2024 1 :23pm CORRECTION LAB WORK April 04, 2024 5:00am CORRECTION LAB WORK April 07, 2024 4:00am CORRECTION LAB WORK April 07, 2024 10:45am MONTHLY EXAM April 11, 2024 12:58pm CORRECTION LAB WORK April 13 5:00am LABWORK April [...] NEW CONCERN March 13, 2024 1 :23pm CORRECTION LAB WORK April 04, 2024 5:00am CORRECTION LAB WORK April 07, 2024 4:00am CORRECTION LAB WORK April 07, 2024 10:45am MONTHLY EXAM April 11, 2024 12:58pm CORRECTION LAB WORK April 13 5:00am LABWORK April [...] NEW CONCERN March 13, 2024 1 :23pm CORRECTION LAB WORK April 04, 2024 5:00am CORRECTION LAB WORK April 07, 2024 4:00am CORRECTION LAB WORK April 07, 2024 10:45am MONTHLY EXAM April 11, 2024 12:58pm CORRECTION LAB WORK April 13 5:00am LABWORK April [...] TOES PVD May 30, 2024 8:36 am CORRECTION LAB WORK June 05, 2024 4: 00am Chief Complaint Admit Date CORRECTION LAB WORK April 04, 2024 5:00am CORRECTION LAB WORK April 07, 2024 4:00am CORRECTION LAB WORK April 07, 2024 10:45am MONTHLY EXAM April 11, 2024 12:58pm CORRECTION LAB WORK April 13 5:00am LABWORK April [...] TOES PVD May 30, 2024 8:36 am CORRECTION LAB WORK June 05, 2024 4: 00am [...] TOES PVD May 30, 2024 8:36 am CORRECTION LAB WORK June 05, 2024 4: 00am LABWORK June 23, 2024 5:0 0am LABWORK July 21, 2024 5:00a m CORRECTION LAB WORK August 01, 2024 5:0 0am [...] TOES PVD May 30, 2024 8:36 am CORRECTION LAB WORK June 05, 2024 4: 00am LABWORK June 23, 2024 5:0 0am MONTHLY EXAM July 18, 2024 3:15p m LABWORK July 21, 2024 5:00a m CORRECTION LAB WORK August 01, 2024 5:0 0am [...] TOES PVD May 30, 2024 8:36 am CORRECTION LAB WORK June 05, 2024 4: 00am LABWORK June 23, 2024 5:0 0am MONTHLY EXAM July 18, 2024 3:15p m NEW PROBLEM/CONCERN July 20, 2024 3:45p m LABWORK July 21, 2024 5:00a m CORRECTION LAB WORK August 01, 2024 5:0 0am [...] TOES PVD May 30, 2024 8:36 am CORRECTION LAB WORK June 05, 2024 4: 00am LABWORK June 23, 2024 5:0 0am MONTHLY EXAM July 18, 2024 3:15p m NEW PROBLEM/CONCERN July 20, 2024 3:45p m LABWORK July 21, 2024 5:00a m CORRECTION LAB WORK August 01, 2024 5:0 0am [...] TOES PVD May 30, 2024 8:36 am CORRECTION LAB WORK June 05, 2024 4: 00am LABWORK June 23, 2024 5:0 0am MONTHLY EXAM July 18, 2024 3:15p m NEW PROBLEM/CONCERN July 20, 2024 3:45p m LABWORK July 21, 2024 5:00a m CORRECTION LAB WORK August 01, 2024 5:0 0am [...] TOES PVD May 30, 2024 8:36 am CORRECTION LAB WORK June 05, 2024 4: 00am LABWORK June 23, 2024 5:0 0am MONTHLY EXAM July 18, 2024 3:15p m NEW PROBLEM/CONCERN July 20, 2024 3:45p m LABWORK July 21, 2024 5:00a m CORRECTION LAB WORK August 01, 2024 5:0 0am LABWORK August 02, 2024 5:00a m MONTHLY EXAM August 15, 2024 7:30 pm Pacer Check Remote August 21, 2024 4:29 am NEW CONCERN August 21, 2024 3:15 pm NEW CONCERN August 25, 2024 2:15 pm Chief Complaint Admit Date LABWORK May 30, 2024 5:00 am NEW CONCERN May 30, 2024 6:28 am COLD TOES PVD May 30, 2024 8:36 am CORRECTION LAB WORK June 05, 2024 4: 00am LABWORK June 23, 2024 5:0 0am NEW CONCERN July 04, 2024 4:35pm MONTHLY EXAM July 18, 2024 3:15p m NEW PROBLEM/CONCERN July 20, 2024 3:45p m LABWORK July 21, 2024 5:00a m CORRECTION LAB WORK August 01, 2024 5:0 0am LABWORK August 02, 2024 5:00a m MONTHLY EXAM August 15, 2024 7:30 pm Pacer Check Remote August 21, 2024 4:29 am NEW CONCERN August 21, 2024 3:15 pm CORRECTION LAB WORK August 22, 2024 5: 00am NEW CONCERN August 25, 2024 2:15 pm LABWORK August 31, 2024 5:00a m CORRECTION LAB WORK September 07, 2024 5: 00am Chief Complaint Admit Date LABWORK June 23, 2024 5:0 0am NEW CONCERN July 04, 2024 4:35pm MONTHLY EXAM July 18, 2024 3:15p m NEW PROBLEM/CONCERN July 20, 2024 3:45p m LABWORK July 21, 2024 5:00a m CORRECTION LAB WORK August 01, 2024 5:0 0am LABWORK August 02, 2024 5:00a m MONTHLY EXAM August 15, 2024 7:30 pm Pacer Check Remote August 21, 2024 4:29 am NEW CONCERN August 21, 2024 3:15 pm CORRECTION LAB WORK August 22, 2024 5: 00am NEW CONCERN August 25, 2024 2:15 pm Monthly Exam August 29, 2024 4:04p m LABWORK August 31, 2024 5:00a m CORRECTION LAB WORK September 07, 2024 5: 00am Chief Complaint Admit Date LABWORK June 23, 2024 5:0 0am NEW CONCERN July 04, 2024 4:35pm MONTHLY EXAM July 18, 2024 3:15p m NEW PROBLEM/CONCERN July 20, 2024 3:45p m LABWORK July 21, 2024 5:00a m CORRECTION LAB WORK August 01, 2024 5:0 0am LABWORK August 02, 2024 5:00a m MONTHLY EXAM August 15, 2024 7:30 pm Pacer Check Remote August 21, 2024 4:29 am NEW CONCERN August 21, 2024 3:15 pm CORRECTION LAB WORK August 22, 2024 5: 00am NEW CONCERN August 25, 2024 2:15 pm Monthly Exam August 29, 2024 4:04p m LABWORK August 31, 2024 5:00a m CORRECTION LAB WORK September 07, 2024 5: 00am New Concern September 19, 2024 7:48 am Chief Complaint Admit Date LABWORK June 23, 2024 5:0 0am NEW CONCERN July 04, 2024 4:35pm MONTHLY EXAM July 18, 2024 3:15p m NEW PROBLEM/CONCERN July 20, 2024 3:45p m LABWORK July 21, 2024 5:00a m CORRECTION LAB WORK August 01, 2024 5:0 0am LABWORK August 02, 2024 5:00a m MONTHLY EXAM August 15, 2024 7:30 pm Pacer Check Remote August 21, 2024 4:29 am NEW CONCERN August 21, 2024 3:15 pm CORRECTION LAB WORK August 22, 2024 5: 00am NEW CONCERN August 25, 2024 2:15 pm Monthly Exam August 29, 2024 4:04p m LABWORK August 31, 2024 5:00a m CORRECTION LAB WORK September 07, 2024 5: 00am New Concern September 19, 2024 7:48 am New Concern September 25, 2024 4:26 pm Chief Complaint Admit Date NEW CONCERN July 04, 2024 4:35pm MONTHLY EXAM July 18, 2024 3:15p m NEW PROBLEM/CONCERN July 20, 2024 3:45p m LABWORK July 21, 2024 5:00a m CORRECTION LAB WORK August 01, 2024 5:0 0am LABWORK August 02, 2024 5:00a m MONTHLY EXAM August 15, 2024 7:30 pm Pacer Check Remote August 21, 2024 4:29 am NEW CONCERN August 21, 2024 3:15 pm CORRECTION LAB WORK August 22, 2024 5: 00am NEW CONCERN August 25, 2024 2:15 pm Monthly Exam August 29, 2024 4:04p m LABWORK August 31, 2024 5:00a m CORRECTION LAB WORK September 07, 2024 5: 00am New Concern September 19, 2024 7:48 am CORRECTION LAB WORK September 25, 2024 12 :00pm New Concern September 25, 2024 4:26 pm MONTHLY EXAM September 29, 2024 11: 44am Family History No Family History Records Found [...] or prosecute any alcohol or drug abuse patient.[facility] the event this information is protected by the Federal Confidentiality of Alcohol and Drug Abuse Patient Records regulations: The Federal rules restrict any use of the information to criminally investigate or prosecute any alcohol or drug abuse patient.[facility] Center[facility] the event this information is protected by the Federal Confidentiality of Alcohol and Drug Abuse Patient Records regulations: The Federal rules restrict any use of the information to criminally investigate or prosecute any alcohol or drug abuse patient.[facility] Center[facility] the event this information is protected by the Federal Confidentiality of Alcohol and Drug Abuse Patient Records regulations: The Federal rules restrict any use of the information to criminally investigate or prosecute any alcohol or drug abuse patient.[facility] Center[facility] the event this information is protected by the Federal Confidentiality of Alcohol and Drug Abuse Patient Records regulations: The Federal rules restrict any use of the information to criminally investigate or prosecute any alcohol or drug abuse patient.[facility] CenterIn the event this information is protected by the Federal Confidentiality of Alcohol and Drug Abuse Patient Records regulations: The Federal rules restrict any use of the information to criminally investigate or prosecute any alcohol or drug abuse patient.[facility] CenterIn the event this information is protected by the Federal Confidentiality of Alcohol and Drug Abuse Patient Records regulations: The Federal rules restrict any use of the information to criminally investigate or prosecute any alcohol or drug abuse patient.[facility] Reason for Visit (unrecogniz ed [...] 2024 End: April 19, 2024 Marimar Zimmer NP, ACUTE DIALYSIS REGISTERED NURSE-C Attending Provider Active Start: April 19, 2024 End: April 19, 2024 Team Status: Inactive Member Role Status Dates Dr. David Miramontes MD Primary Care Provider Active Start: May 01, 2024 End: May 01, 2024 Marimar Zimmer ACUTE DIALYSIS REGISTERED NURSE, ACUTE DIALYSIS REGISTERED NURSE-C Attending Provider Active Start: May 01, 2024 End: May 01, 2024 Team Status: Inactive Member Role Status Dates Dr. Dvaid Miramontes MD Primary Care Provider Active Start: May 11, 2024 End: May 11, 2024 Marimar Zimmer ACUTE DIALYSIS REGISTERED NURSE, ACUTE DIALYSIS REGISTERED NURSE-C Attending Provider Active Start: May 11, 2024 [...] 2024 End: May 18, 2024 Marimar Zimmer ACUTE DIALYSIS REGISTERED NURSE, ACUTE DIALYSIS REGISTERED NURSE-C Attending Provider Active Start: May 18, 2024 [...] 2024 End: May 30, 2024 Dr. David iMramontes MD Attending Provider Active Start: May 30, [...] June 23, 2024 End: June 23, 2024 Telegrapher Agent Relationship Specialty Start Date End Date Nicolas Cardenas MD [address] [place] [address] PCP - General 02/12/03 Telegrapher Agent Relationship Specialty Start Date End Date Nicolas Cardenas MD [address] [facility] [place], [place] [address] PCP - General 02/12/03 Telegrapher Agent Relationship Specialty Start Date End Date Nicolas Cardenas MD [address] [facility] [place] [place] [address] PCP - General 02/12/03 Telegrapher Agent Relationship Specialty Start Date End Date Nioclas Cardenas MD [address] [facility] [place], [place] [address] PCP - General 02/12/03 Team Status: Active Member Role Status Dates Dr. Nicolas Cardenas MD Family Provider Active Dr. Nicolas Cardenas MD Primary Care Provider Active Team Status: Inactive Member Role Status Dates Dr. Nicolas Cardenas MD Primary Care Provider Active Marimar Zimmer ACUTE DIALYSIS REGISTERED NURSE, ACUTE DIALYSIS REGISTERED NURSE-C Attending Provider Active Team Status: Inactive Member [...] 2024 End: March 13, 2024 Marimar Zimmer ACUTE DIALYSIS REGISTERED NURSE, ACUTE DIALYSIS REGISTERED NURSE-C Attending Provider Active Start: March 13, 2024 [...] 2024 End: May 01, 2024 Marimar Zimmer ACUTE DIALYSIS REGISTERED NURSE, ACUTE DIALYSIS REGISTERED NURSE-C Attending Provider Active Start: May 01, 2024 End: May 01, 2024 Team Status: Inactive Member Role/Relationship Status Dates Dr. David Miramontes MD Primary Care Provider Active Start: May 11, 2024 End: May 11, 2024 Marimar Zimmer ACUTE DIALYSIS REGISTERED NURSE, ACUTE DIALYSIS REGISTERED NURSE-C Attending Provider Active Start: May 11, 2024 [...] 2024 End: May 18, 2024 Marimar Zimmer ACUTE DIALYSIS REGISTERED NURSE, ACUTE DIALYSIS REGISTERED NURSE-C Attending Provider Active Start: May 18, 2024 [...] 2024 End: May 30, 2024 Marimar Zimmer ACUTE DIALYSIS REGISTERED NURSE, ACUTE DIALYSIS REGISTERED NURSE-C Attending Provider Active Start: May 30, 2024 [...] 2024 End: May 18, 2024 Marimar Zimmer ACUTE DIALYSIS REGISTERED NURSE, ACUTE DIALYSIS REGISTERED NURSE-C Attending Provider Active Start: May 18, 2024 [...] 2024 End: May 30, 2024 Marimar Zimmer ACUTE DIALYSIS REGISTERED NURSE, ACUTE DIALYSIS REGISTERED NURSE-C Attending Provider Active Start: May 30, 2024 [...] Inactive Member Role/Relationship Status Dates Marimar Zimmer ACUTE DIALYSIS REGISTERED NURSE, ACUTE DIALYSIS REGISTERED NURSE-C Attending Provider Active Start: July 20, 2024 [...] Status: Active Member Role/Relationship Status Dates Dr. aDvid Miramontes MD Primary [...] 2024 End: August 15, 2024 Marimar Zimmer ACUTE DIALYSIS REGISTERED NURSE, ACUTE DIALYSIS REGISTERED NURSE-C Attending Provider Active Start: August 15, 2024 [...] 2024 End: August 21, 2024 Marimar Zimmer ACUTE DIALYSIS REGISTERED NURSE, ACUTE DIALYSIS REGISTERED NURSE-C Attending Provider Active Start: August 21, 2024 [...] 2024 End: August 25, 2024 Marimar Zimmer ACUTE DIALYSIS REGISTERED NURSE, ACUTE DIALYSIS REGISTERED NURSE-C Attending Provider Active Start: August 25, 2024 [...] 2024 End: May 30, 2024 Marimar Zimmer ACUTE DIALYSIS REGISTERED NURSE, ACUTE DIALYSIS REGISTERED NURSE-C Attending Provider Active Start: May 30, 2024 [...] MD Primary Care Provider Active Start: July 04, 2024 End: July 04, 2024 Marimar Zimmer NP ACUTE DIALYSIS REGISTERED NURSE-C Attending Provider Active Start: July 04, 2024 End: July 04, 2024 Team Status: Inactive Member Role/Relationship Status Dates Dr. David Miramontes MD Primary Care Provider Active Start: July 18, 2024 End: July 18, 2024 Dr. David Miramontes MD Attending Provider Active Start: July 18, 2024 End: July 18, 2024 Team Status: Inactive Member Role/Relationship Status Dates Marimar Zimmer ACUTE DIALYSIS REGISTERED NURSE, ACUTE DIALYSIS REGISTERED NURSE-C Attending Provider Active Start: July 20, 2024 [...] 2024 End: August 15, 2024 Marimar Zimmer ACUTE DIALYSIS REGISTERED NURSE, ACUTE DIALYSIS REGISTERED NURSE-C Attending Provider Active Start: August 15, 2024 [...] 2024 End: August 21, 2024 Team Status: Inactive Member Role/Relationship Status Dates Dr. David Miramontes MD Primary Care Provider Active Start: August 21, 2024 End: August 21, 2024 Marimar Zimmer ACUTE DIALYSIS REGISTERED NURSE, ACUTE DIALYSIS REGISTERED NURSE-C Attending Provider Active Start: August 21, 2024 End: August 21, 2024 Team Status: Inactive Member Role/Relationship Status Dates Dr. David Miramontes MD Primary Care Provider Active Start: August 25, 2024 End: August 25, 2024 Marimar Zimmer ACUTE DIALYSIS REGISTERED NURSE, ACUTE DIALYSIS REGISTERED NURSE-C Attending Provider Active Start: August 25, 2024 End: August 25, 2024 Team Status: Active Member Role/Relationship Status Dates Dr. David Miramontes MD Primary Care Provider Active Start: September 25, 2024 David GARCIA MD Attending Provider Active Start: September 25, 2024 Team Status: Inactive Member Role/Relationship Status Dates Dr. David Miramontes MD Primary Care Provider Active Start: June 23, 2024 End: June 23, 2024 David GARCIA MD Attending Provider Active Start: June 23, 2024 End: June 23, 2024 Team Status: Inactive Member Role/Relationship Status Dates Dr. David Miramontes MD Primary Care Provider Active Start: July 04, 2024 End: July 04, 2024 Marimar Zimmer ACUTE DIALYSIS REGISTERED NURSE, ACUTE DIALYSIS REGISTERED NURSE-C Attending Provider Active Start: July 04, 2024 End: July 04, 2024 Team Status: Inactive Member Role/Relationship Status Dates Dr. David Miramontes MD Primary Care Provider Active Start: July 18, 2024 End: July 18, 2024 Dr. David Miramontes MD Attending Provider Active Start: July 18, 2024 End: July 18, 2024 Team Status: Inactive Member Role/Relationship Status Dates Marimar Zimmer ACUTE DIALYSIS REGISTERED NURSE, ACUTE DIALYSIS REGISTERED NURSE-C Attending Provider Active Start: July 20, 2024 [...] 2024 End: August 15, 2024 Marimar Zimmer ACUTE DIALYSIS REGISTERED NURSE, ACUTE DIALYSIS REGISTERED NURSE-C Attending Provider Active Start: August 15, 2024 [...] 2024 End: August 21, 2024 Team Status: Inactive Member Role/Relationship Status Dates Dr. David Miramontes MD Primary Care Provider Active Start: August 21, 2024 End: August 21, 2024 Marimar Zimmer NP ACUTE DIALYSIS REGISTERED NURSE-C Attending Provider Active Start: August 21, 2024 [...] 2024 End: August 25, 2024 Marimar Zimmer NP ACUTE DIALYSIS REGISTERED NURSE-C Attending Provider Active Start: August 25, 2024 End: August 25, 2024 Team Status: Inactive Member Role/Relationship Status Dates Dr. David Miramontes MD Primary Care Provider Active Start: August 29, 2024 End: August 29, 2024 Dr. David Miramontes MD Attending Provider Active Start: August 29, 2024 End: August 29, 2024 Team Status: Active Member Role/Relationship Status Dates Dr. David Miramontes MD Primary Care Provider Active Start: August 31, 2024 David GARCIA MD Attending Provider Active Start: August 31, 2024 Team Status: Active Member Role/Relationship Status Dates Dr. David Miramontes MD Primary Care Provider Active Start: September 07, 2024 David GARCIA MD Attending Provider Active Start: September 07, 2024 Team Status: Active Member Role/Relationship Status Dates Dr. David Miramontes MD Primary Care Provider Active Start: September 25, 2024 David GARCIA MD Attending Provider Active Start: September 25, 2024 Team Status: Inactive Member Role/Relationship Status Dates Dr. David Miramontes MD Primary Care Provider Active Start: September 19, 2024 End: September 19, 2024 Marimar Zimmer NP ACUTE DIALYSIS REGISTERED NURSE-C Attending Provider Active Start: September 19, 2024 End: September 19, 2024 Team Status: Active Member Role/Relationship Status Dates Dr. David Miramontes MD Primary Care Provider Active Start: September 25, 2024 David GARCIA MD Attending Provider Active Start: September 25, 2024 Team Status: Inactive Member Role/Relationship Status Dates Dr. David Miramontes MD Primary Care Provider Active Start: September 25, 2024 End: September 25, 2024 Marimar Zimmer ACUTE DIALYSIS REGISTERED NURSE, ACUTE DIALYSIS REGISTERED NURSE-C Attending Provider Active Start: September 25, 2024 End: September 25, 2024 Team Status: Inactive Member Role/Relationship Status Dates Dr. David Miramontes MD Primary Care Provider Active Start: July 04, 2024 End: July 04, 2024 Marimar Zimmer ACUTE DIALYSIS REGISTERED NURSE, ACUTE DIALYSIS REGISTERED NURSE-C Attending Provider Active Start: July 04, 2024 End: July 04, 2024 Team Status: Inactive Member Role/Relationship Status Dates Dr. David Miramontes MD Primary Care Provider Active Start: July 18, 2024 End: July 18, 2024 Dr. David Miramontes MD Attending Provider Active Start: July 18, 2024 End: July 18, 2024 Team Status: Inactive Member Role/Relationship Status Dates Marimar Zimmer ACUTE DIALYSIS REGISTERED NURSE, ACUTE DIALYSIS REGISTERED NURSE-C Attending Provider Active Start: July 20, 2024 [...] 2024 End: August 15, 2024 Marimar Zimmer ACUTE DIALYSIS REGISTERED NURSE, ACUTE DIALYSIS REGISTERED NURSE-C Attending Provider Active Start: August 15, 2024 [...] 2024 End: August 21, 2024 Team Status: Inactive Member Role/Relationship Status Dates Dr. David Miramontes MD Primary Care Provider Active Start: August 21, 2024 End: August 21, 2024 Marimar Zimmer ACUTE DIALYSIS REGISTERED NURSE, ACUTE DIALYSIS REGISTERED NURSE-C Attending Provider Active Start: August 21, 2024 [...] 2024 End: August 25, 2024 Marimar Zimmer ACUTE DIALYSIS REGISTERED NURSE, ACUTE DIALYSIS REGISTERED NURSE-C Attending Provider Active Start: August 25, 2024 End: August 25, 2024 Team Status: Inactive Member Role/Relationship Status Dates Dr. David Miramontes MD Primary Care Provider Active Start: August 29, 2024 End: August 29, 2024 Dr. David Miramontes MD Attending Provider Active Start: August 29, 2024 End: August 29, 2024 Team Status: Active Member Role/Relationship Status [...] MD Primary Care Provider Active Start: September 19, 2024 End: September 19, 2024 Marimar Zimmer NP ACUTE DIALYSIS REGISTERED NURSE-C Attending Provider Active Start: September 19, 2024 End: September 19, 2024 Team Status: Inactive Member Role/Relationship Status Dates Dr. David Miramontes MD Primary Care Provider Active Start: September 25, 2024 End: September 25, 2024 Marimar Zimmer NP ACUTE DIALYSIS REGISTERED NURSE-C Attending Provider Active Start: September 25, 2024 End: September 25, 2024 Team Status: Inactive Member Role/Relationship Status Dates Dr. David Miramontes MD Primary Care Provider Active Start: September 29, 2024 End: September 29, 2024 DANAY RuthC Attending Provider Active Start: September 29, 2024 End: September 29, 2024 Goals (unrecognized section and content) Goals [...] section and content) DATE CREATED AUTHOR 06/08/2022 [facility] DATE CREATED AUTHOR AUTHOR'S ORGANIZ ATION 07/17/2024 [facility] DATE CREATED AUTHOR AUTHOR'S ORGANIZ ATION 10/26/2024 [facility] FOR RECORDS PERTAINING TO PATIENTS WHO [...] BE BASED ON THE PRIMARY CLINICAL RECORDS. [facility] [employer] provides no warranty or guarantee of the accuracy or completeness of information in this document.
[2024-10-27 21:51] VITALS: BP 132/60; PULSE 64; RESP 16; O2SAT 98
[2024-10-27 21:52] VITALS: BP 132/60; PULSE 64; RESP 18; TEMP 36.7; O2SAT 96
--- NOTE | 2024-10-27 21:56 | ED.RN ---
informed Parviz Joshi that the scan of the head was negative and the pt was coming back approximately [id number].
[2024-10-27 22:00] VITALS: BP 146/55; PULSE 65; RESP 16
--- NOTE | 2024-10-27 23:05 | ED.RN ---
pt's son, mery ISAAC notified that the pt went back to [facility],no acute findings.
== END 2024-10-27 23:02 | disposition home or self-care (01) ==
PROVIDERS: Emergency Provider Emergency Medicine; PCP Internal Medicine; Visit Provider Emergency Medicine
DX: S00.03XA Contusion of scalp, initial encounter (principal); F02.80 Dementia in other diseases classified elsewhere, unspecified severity, without behavioral disturbance, psychotic disturbance, mood disturbance, and anxiety; G30.9 Alzheimer's disease, unspecified; I48.91 Unspecified atrial fibrillation; Z79.01 Long term (current) use of anticoagulants; W19.XXXA Unspecified fall, initial encounter; Z87.891 Personal history of nicotine dependence; Z95.0 Presence of cardiac pacemaker
CPT/HCPCS: 70450; 99284

== ENCOUNTER 2024-10-29 09:51 | Emergency (ER) | payer MEDICARE, MEDICAID, SELFPAY ==
[2024-10-29 09:52] VITALS: BP 117/65; PULSE 60; RESP 16; TEMP 36.7; O2SAT 100; BMI 29.1
--- NOTE | 2024-10-29 10:08 | RAD_ITS ---
PROCEDURE: WRIST MIN 3 VIEWS 10/29/2024 REASON FOR EXAM: SWELLING L WRIST. FALLS TECHNIQUE: Procedure Code: RADWR Modality: DX Procedure: WRIST MIN 3 VIEWS Laterality: Left COMPARISON: None. FINDINGS: Bones: No acute bony abnormalities. Joints: Radiocarpal and 1st carpometacarpal joints. Narrowing and sclerosis. Soft tissues: No soft tissue abnormalities. RAD/Wrist min 3 Views IMPRESSION: No acute osseous abnormalities. Mild arthritis. Reading Location: [id number]
--- NOTE | 2024-10-29 10:09 | EX.ED.UPPERE ---
HPI History of Present Illness HPI Narrative: 84-year-old male history of dementia from a local extended-care facility. Patient has frequent falls was seen 2 days ago for falls and a head injury. He sent him in today because I believe he has had additional falls and they were concerned about his left wrist. They did an x-ray at their facility it is questionable if this is degenerative arthritis or an avulsion fracture. Patient denies any wrist pain or complaint. Chief Complaint: Upper Extremity Injury Informant: patient Occured/Mechanism Mechanism/Context: Yes injury and Yes blunt trauma Onset/Context/Timing Current Severity: Mild Maximum Severity: Mild Narrative Narrative: 84-year-old male with dementia who extended-care facility frequent falls sent in for possible wrist fracture versus degenerative arthritis. Patient really denies any significant plain of the left wrist. Prior similar symptoms: No Recent Illness/Hospitalization: No PFSH PFSH Medical History Alzheimers disease Former smoker Dementia Adult failure to thrive Chronic anticoagulation History of atrial fibrillation Fall Sick sinus syndrome Bradycardia Sinus pause SUZAN on CPAP (11/07/18) Hematuria Chronic midline low back pain without sciatica Multiple gastric ulcers Essential tremor Mild memory disturbance Benign neoplasm of colon Chronic rhinitis BPH (benign prostatic hyperplasia) Atrial fibrillation Essential (primary) hypertension Home Medications ?Medication ?Instructions ?Recorded ?Last Taken ?Type sennosides 8.6 mg-docusate sodium 2 tab PO BID #180 tabs 02/26/22 Unknown Rx 50 mg tablet (Stool Softener-Stimulant Laxative) cimetidine 200 mg tablet 200 mg PO DAILY #90 tabs 03/25/22 Unknown Rx aluminum-mag hydroxide-simethicone 15 ml PO Q4H PRN 07/08/23 Unknown History 200 mg-200 mg-20 mg/5 mL oral susp benzocaine 20 %-menthol 0.1 %-zinc ea mucous membrane 07/08/23 Unknown History chloride 0.15 % mucosal gel (Orajel 3X Mouth Sores) magnesium hydroxide 400 mg/5 mL 30 ml PO DAILY PRN 07/08/23 Unknown History oral suspension memantine 5 mg tablet 5 mg PO BID 07/08/23 Unknown History terazosin 5 mg capsule 5 mg PO QHS 07/08/23 Unknown History quetiapine 25 mg tablet (Seroquel) 75 mg (3 x 25 mg) PO DAILY 3 11/08/23 Unknown Rx months #270 tabs furosemide 40 mg tablet 40 mg PO DAILY #90 tabs 03/06/24 Unknown Rx finasteride 5 mg tablet 5 mg PO QHS BPH #90 tabs 04/03/24 Unknown Rx sertraline 25 mg tablet (Zoloft) 25 mg PO QDAY #90 tabs 05/05/24 Unknown Rx potassium chloride 10 mEq 10 meq PO DAILY #90 tabs 06/16/24 Unknown Rx tablet,extended release apixaban 5 mg tablet (Eliquis) 5 mg PO BID #180 tabs 08/14/24 Unknown Rx Allergy/AdvReac Type Severity Reaction Status Date / Time No Known Allergies Allergy Verified 10/29/24 09:55 Family History Father Heart disease Brother Heart disease Surgical History Presence of cardiac pacemaker (11/18/18) History of tonsillectomy History of inguinal hernia repair Social History Smoking Status: Former smoker how long ago did patient quit smokin years ago alcohol intake: never substance use type: does not use caffeine: No ROS ROS ED ROS Narrative Patient denies any complaints.Limited informant due to his dementia. Review of Systems ROS Unobtainable: due to mental status Constitutional Constitutional ED: Denies chills or fever(s) Eyes Eyes: Denies blurry vision ENT ENT ED: Denies ear pain Cardiovascular Cardiovascular: Denies chest pain Respiratory/Chest Respiratory/Chest: Denies cough Gastrointestinal Gastrointestinal: Denies abdominal pain Musculoskeletal Musculoskeletal: Denies back pain Integumentary Denies abscess Neurologic Neurologic: Denies headache(s) Endocrine Endocrinology: Denies cold intolerance Hematologic/Lymphatic Hematologic/Lymphatic: Denies easy bleeding Allergic/Immunologic Allergic/Immunologic ED: Denies mouth swelling EXAM Physical Exam Narrative Exam Narrative: 84-year-old male sitting upright in bed. Vital signs are stable afebrile. Pulse ox 100% on room air no hypoxia. He is in no distress. Currently there is no one with him. He is awake and alert. HEENT exam pupils round reactive light extra motions are intact. He has significant bruising on the right side of his face and forehead from recent falls. That was evaluated 2 days ago. Neck nontender. Trachea midline. Back nontender. Spine nontender. Lungs clear to auscultation bilaterally. Heart rate about 60 no murmur. Chest wall and ribs nontender. Abdomen soft nontender. No peritoneal signs. Pelvic girdle intact. He can flex extend at both hips and knees and ankles. There is no tenderness at either hip knee or ankle. He does have dressings on his lower extremities. Dorsi plantarflexion is intact. Upper extremities shoulders elbows are nontender he can flex extend at both shoulders and elbows and wrist. Minimal swelling of his left wrist and hand. But he has good cinder snapper strength bilaterally. There is no significant tenderness to his hand or his wrist. He has multiple areas of bruising from falls on his upper and lower extremities. Neurologically he is awake is alert he answers questions. He does have dementia and a lot of times his answers are not accurate. But he does talk and respond to you carries on a conversation. Const Vital Signs: 10/29/24 09:52 Temperature 98.1 F Temperature Source Oral Pulse Rate 60 Respiratory Rate 16 Blood Pressure 117/65 Blood Pressure Mean 82 Pulse Ox 100 Oxygen Delivery Method Room Air Positive well nourished and well developed; Negative for cachectic, contractures or unkempt General Appearance ED: well developed and NAD; Negative for unkempt, cachectic, contractures, cyanotic or diaphoretic Nutritional Appearance: Negative for cachectic HEENT Reports moist mucous membranes HEENT Narrative: Bruising on his left forehead and face. From a recent fall. trauma and tenderness Eyes PERRL and EOMs intact bilaterally Neck full ROM and supple Chest Wall inspection of chest normal and palpation of chest normal Resp normal respiratory effort and clear to auscultation bilaterally Cardio regular rate, regular rhythm, S1 normal heart sound, S2 normal heart sound and no murmurs GI non-tender, non-distended and no masses Auscultation: normoactive bowel sounds Palpation: soft; Negative for tender, guarding or rebound tenderness present Back/Spine no CVA tenderness General Back: Negative for CVA tenderness Cervical Spine: Negative for cervical spine tenderness Thoracic Spine / Upper Back: Negative for thoracic spinal tenderness Lumbar Spine / Lower Back: Negative for lumbar spinal tenderness Extremity full ROM; Negative for normal to inspection Extremity Narrative: Dressings on both lower extremities below the knees to his ankles. He is getting bruising on different areas of his upper and lower extremities. There is minimal swelling of his left wrist. He is not specifically tender he can flex extend at both wrist and open and close both hands. General Extremety ED: Yes edema General Extremity: edema Neuro No oriented x3, CN's II-XII intact bilaterally, moves all extremities and no focal motor deficits Sensorium / Orientation: alert and oriented to person; Negative for oriented to place or oriented to time Motor Exam: strength 5/5 throughout Psych mental status grossly normal Appearance: Negative for unkempt Skin Lesions: no lesions Rashes: no rashes Trauma: no lacerations or abrasions MDM MDM MDM Narrative Medical decision making narrative: 84-year-old male fell 2 days ago at the halfway was evaluated at that time for head injury CAT scan at that time was negative. They felt he was having pain in his wrist and hand they did x-rays and are questioning either an avulsion fracture of his left hand versus just degenerative arthritis they had no one there to truly evaluate the x-rays or splint the patient so they sent him in for further evaluation. I did speak to a nurse at the extended-care facility. No other complaints today has not been ill has not had a fever. Patient himself denies any complaints. Repeat exam is unchanged at 11:26 AM.. Patient will be discharged back to extended-care facility. we will make sure they know that he does not have any fractures of his left hand or wrist. He does not need splinted. History & Record Review Discussion w/independent historian: Patient Additional record(s) reviewed:: Prior inpatient record, Prior outpatient record, Prior ED visit and Prior labs Radiography Diagnostic Testing: Left hand x-ray shows no acute process 3 views interpreted by myself and the radiologist. There is Significant arthritis at the base of the thumb and the carpal bones. No acute fracture. Interpreted both by myself and the radiologist. Wrist x-ray, 3 views, interpreted again by the radiologist and myself shows arthritis but no acute fracture. Discharge Plan Triage Chief Complaint: Upper Extremity Injury ED Provider: Abhinav Leigh Dx/Rx/DC Orders Clinical Impression: Hand swelling, Osteoarthritis, History of fall Instructions: ED Osteoarthritis Prescriptions: No Action terazosin 5 mg capsule 5 mg PO QHS magnesium hydroxide 400 mg/5 mL suspension 30 ml PO DAILY PRN alum-mag hydroxide-simeth 200-200-20 mg/5 mL suspension 15 ml PO Q4H PRN Rx Instructions: 1 and 3 hours after meals and at bedtime Orajel 3X Mouth Sores 20-0.1-0.15 % gel mucous membrane memantine 5 mg tablet 5 mg PO BID sennosides-docusate sodium [Stool Softener-Stimulant Laxat] 8.6-50 mg tablet 2 tab PO BID Qty: 180 3RF cimetidine 200 mg tablet 200 mg PO DAILY Qty: 90 3RF quetiapine [Seroquel] 25 mg tablet 75 mg PO DAILY 90 Days Qty: 270 3RF Rx Instructions: 1 tab a.m. and 2 tabs p.m. furosemide 40 mg tablet 40 mg PO DAILY Qty: 90 3RF finasteride 5 mg tablet 5 mg PO QHS Qty: 90 3RF sertraline [Zoloft] 25 mg tablet 25 mg PO QDAY Qty: 90 3RF potassium chloride 10 mEq tablet extended release 10 meq PO DAILY Qty: 90 3RF Eliquis 5 mg tablet 5 mg PO BID Qty: 180 3RF Primary Care Provider: Quirino Miramontes Referrals: Quirino Miramontes MD [Primary Care Provider] - As Needed Activity Restrictions/Additional Instructions: Follow-up with your doctor as needed. Ice to his wrist and hand There is no broken bone in his wrist or hand. This is all from arthritis. Print Language: Ecuadorean Disposition Disposition: Home, Self Care
--- NOTE | 2024-10-29 10:13 | RAD_ITS ---
PROCEDURE: HAND MIN 3 VIEWS 10/29/2024 REASON FOR EXAM: FALL TECHNIQUE: Procedure Code: [id number] Modality: DX Procedure: HAND MIN 3 VIEWS Laterality: Left COMPARISON: None. FINDINGS: Bones: No acute bony abnormalities. Joints: Unremarkable. Soft tissues: No soft tissue abnormalities. RAD/Hand Min 3 Views IMPRESSION: No acute osseous abnormalities. Reading Location: [id number]
--- OUTSIDE RECORDS SUMMARY | 2024-10-29 10:21 | XMS RPT_ITS | CCD ---
Author Organization [facility] Care Team Providers Care Retail Custodial Associate Name Role Phone Nicolas Cardenas MD Primary Care Provider Dr. Nicloas Cardenas Primary Care Provider Dr. Abhinav Leigh Emergency Provider Dr. Robinson Nguyen Admit Provider Dr. Robinson Nguyen Attending Provider Dr. Robinson Nguyen Other Provider Dr. Kevin Nichole Attending Provider Dr. Kevin Nichole Other Provider Dr. Desire Leung Attending Provider Nicolas Cardensa MD Primary Care Provider Mesha MITTEN SEWER, MITTEN SEWER-C Marimar Attending Provider Dr. Nicolas Justin Primary Care Provider Mesha MITTEN SEWER, MITTEN SEWER-C Marimar Attending Provider Dr. David Nina Attending Provider Unavailable Primary Care Provider UnavailNICOLAS Blankenship Referring Unavailable NICOLAS CARDENAS Attending Unavailable NICOLAS CARDENAS Primary Care Unavailable Dr. Nicolas Cardenas Primary Care Provider Mesha MITTEN SEWER, MITTEN SEWER-C Marimar Attending Provider Dr. David Nina Attending Provider Dr. Nicolas Cardenas Primary Care Provider Mesha MITTEN SEWER, MITTEN SEWER-C Marimar Attending Provider Dr. Frandy Ninaongbe Attending Provider Dr. Nicolas Cardenas Primary Care Provider Mesha MITTEN SEWER, MITTEN SEWER-C Marimar Attending Provider Dr. David Miramontes Attending Provider [phone] Dr. David Miramontes MD Primary Care Provider Dr. Edson Quinn MD Attending Provider Dr. Edson Quinn MD Referring Provider [phone] Dr. David Miramontes MD Attending Provider Isidro Can Attending Provider Mesha MITTEN SEWER-CMarimar Attending Provider David Miramontes MD Attending Provider [...] David Miramontes MD Primary Care Provider Mesha MITTEN SEWER-CMarimar Attending Provider Unavailable Primary Care Provider Unavailabl DIANA Sampson Attending Unava ilable SELF Referring Unavailable Dr. David Miramontes MD Primary Care Provider Mesha MITTEN SEWER-CMarimar Attending Provider David Miramontes MD Attending Provider Unavailapril Miramontes MD, Dr. Wni Attending Provider [phone] David Miramontes MD Referring Provider Unavaila arthur Miramontes MD, Dr. Win Primary Care Provider Tickebenezer MITTEN SEWER-C, Marimar Attending Provider Kai ALAMO, Dr. Sandhu Attending Provider [phone] Kai ALAMO, Dr. Sandhu Referring Provider [phone] Kulwinder ALAMO, Dr. Win Primary Care Provider David Miramontes MD Attending Provider Unavaila ble Tickton MITTEN SEWER-C, Marimar Attending Provider Kulwinder ALAMO, Dr. Win Attending Provider [phone] Kai ALAMO, Dr. Sandhu Attending Provider [phone] Kai ALAMO, Dr. Sandhu Referring Provider [phone] Kulwinder ALAMO, Dr. Win Primary Care Provider David Miramontes MD Attending Provider Unavaila ble Tickton MITTEN SEWER-C, Marimar Attending Provider Kulwinder ALAMO, Dr. Win Attending Provider [phone] Kulwinder ALAMO, Dr. Win Primary Care Provider David Miramontes MD Attending Provider Unavaila ble Ungerer MITTEN SEWER-C, Dasia Attending Provider [phone] Oleghe, Efewongbe [...] Care Unavailable Kai, Edson Referring Unavailable Kai, [place] Attending Unavailable Oleghe, Efewongbe Primary Care Unavailable Oleghe, Efewongbe Primary Care Unavailable Oleghe, Efewongbe Attending Unavailable Oleghe, Efewongbe Primary Care Unavailable Tickton, Marimar Attending Unavailable Oleghe, Efewongbe Primary Care Unavailable Josiah Klein Attending Unavailable Oleghe, Efewongbe Referring Unavailable Oleghe, Efewongbe Primary Care Unavailable Oleghe OLS, Efewongbe Attending Unavailabl e Oleghe, Efewongbe Primary Care Unavailable Kai, [place] Referring Unavailable Kai, Edson Attending Unavailable Oleghe, [...] Unavailable Oleghe, Efewongbe Primary Care Unavailable Kai, [place] Referring Unavailable Kai, [place] Attending Unavailable Oleghe, Efewongbe Primary Care Unavailable [...] Attending Unavailable Oleghe, Efewongbe Primary Care Unavailable Tickebenezer Marimar Attending Unavailable Oleghe, Efewongbe Primary Care [...] Primary Care Unavailable Oleghe OLS, Efewongbe Attending UnavailDr. Abhinav Ortega MD Emergency Provider [phone] Medications Current Medications Medication Drug Class(es) Dates Sig (Normalized) Sig (Original) aluminum hydroxide 40 mg/ml / magnesium hydroxide 40 mg/ml / simethicone 4 mg/ml oral suspension (17 sources) Start: 07-08-2023 Alum-Mag Hydroxide-Simeth 200-200-20 mg/5 mL suspension Active 15 mL PO Q4H as needed July 08, 2023 12:00am 1 and 3 hours after meals and at bedtime Aspirin (1 source) Platelet Aggregation Inhibitor, Nonsteroidal Anti-inflammatory Drug Start: 10-20-2021 aspirin Active October 20, 2021 12:00am benzocaine 0.2 mg/mg / menthol 0.001 mg/mg / zinc chloride 0.0015 mg/mg oral gel (17 sources) Standardized Chemical Allergen Start: 07-08-2023 Benzocaine-Mentho [...] daily. docusate sodium 50 mg / sennosides, correction 8.6 mg oral tablet (20 sources) Start: 10-22-2021 End: 02-26-2022 Sennosides-Docusate Sodium (Stool Softener-Stimulant Laxat) 8.6-50 mg tablet Active 2 {tbl} PO TWICE A DAY 180 February 26, 2022 5:15pm Magnesium Hydroxide (17 sources) Start: 07-08-2023 take 1 mL by [...] 2023 5:03pm sertraline 25 mg oral tablet (17 sources) Serotonin Reuptake Inhibitor Start: 05-05-2024 take [...] capsule (20 sources) Start: 9 End: 4 [place]-3 Fatty Acids-Fish Oil (Fish Oil) 360-1,200 mg [...] hydrochloride 5 mg oral tablet (20 sources) P-zvukad-O-aspartat e Receptor Antagonist Start: 3 End: 4 [...] A DAY 0 October 22, 2021 12:00am [place]-3 Fatty Acids (Fish Oil Concentrate) 1,000 mg capsule (20 sources) Start: 08-23-2018 End: 11-08-2018 take 1 capsule by mouth once daily [place]-3 Fatty Acids (Fish Oil Concentrate) 1,000 mg capsule Discontinued 1000 mg PO DAILY August 23, 2018 12:00am November 08, 2018 1:59pm Start: 08-23-2018 End: 11-08-2018 take 1 capsule by mouth once daily [place]-3 Fatty Acids (Fish Oil Concentrate) 1,000 mg capsule Discontinued 1000 MG PO DAILY August 22, 2018 11:00pm November 08, 2018 12:59pm Start: 08-23-2018 End: 11-08-2018 take 1 capsule by mouth once daily [place]-3 Fatty Acids (Fish Oil Concentrate) 1,000 mg [...] on above: Take 1 capsule by [facility] once daily. 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 Anion gap in Serum or Plasma Ordered By: David Miramontes on 09-07-2024 Anion gap [Moles/Vol] 9 mmol/L 07-13 [facility] BUN/creatinine ratioOrdered By: David Miramontes on 09-07-2024 Urea nitrogen/Creatinine [Mass ratio] 15.9 mg/mg 12-[address] [facility] Carbon dioxide, total [Moles /volume] in Central venous bloodOrdered By: David Miramontes on 09-07-2024 CO2 [Moles/Vol] 28.4 mmol/L 21.0-32.[address] [facility] Chloride assayOrdered By: Mayra Miramontes on 09-07-2024 Chloride [Moles/Vol] 104 mmol/L 98-108 [facility] Glomerular filtration rate ( GFR) estimation/1.73 sq m using serum, plasma, or whole bOrdered By: David Miramontes on 09-07-2024 GFR/1.73 sq M.predicted among non-blacks MDRD (S/P/Bld) [Vol rate/Area] 72 mL/min/{1.73_m2} >[address] [facility] Comment on above: mL/min/1.73m2 CKD-EP I Creatinine Equation (2020) Potassium measurement (mass/ volume)Ordered By: David Miramontes on 09-07-2024 Potassium (Unsp spec) [Mass/Vol] 4.0 mmol/L 3.3-5.[address] [facility] Serum creatinine measurement (mass/volume)Ordered By: David Miramontes on 09-07-2024 Creatinine [Mass/Vol] 1.02 mg/dL 0.70-1.20 [facility] Serum glucose measurement (m ass/volume)Ordered By: David Miramontes on 09-07-2024 Glucose [Mass/Vol] 80 mg/dL 70-99 [facility] Serum or plasma calcium siobhan urement (mass/volume)Ordered By: David Miramontes on 09-07-2024 Calcium [Mass/Vol] 9.3 mg/dL 7.6-11.0 [facility] Serum or plasma urea nitroge n measurement (mass/volume)Ordered By: David Miramontes on 09-07-2024 Urea nitrogen [Mass/Vol] 16 mg/dL 4-[address] [facility] Sodium levelOrdered By: Frandy Miramontes on 09-07-2024 Sodium [Moles/Vol] 141 mmol/L 133-145 [facility] Anion gap in Serum or Plasma Ordered By: David Miramontes on 08-31-2024 Anion gap [Moles/Vol] 10 mmol/L 5-15 [facility] BUN/creatinine ratioOrdered By: David Miramontes on 08-31-2024 Urea nitrogen/Creatinine [Mass ratio] 12.4 mg/mg 10-[address] [facility] Carbon dioxide, total [Moles /volume] in Central venous bloodOrdered By: David Miramontes on 08-31-2024 CO2 [Moles/Vol] 26.4 mmol/L 21.0-32.[address] [facility] Chloride assayOrdered By: Mayra Miramontes on 08-31-2024 Chloride [Moles/Vol] 103 mmol/L 98-108 [facility] Glomerular filtration rate ( GFR) estimation/1.73 sq m using serum, plasma, or whole bOrdered By: David Miramontes on 08-31-2024 GFR/1.73 sq M.predicted among non-blacks MDRD (S/P/Bld) [Vol rate/Area] 80 mL/min/{1.73_m2} >[address] [facility] Comment on above: mL/min/1.73m2 CKD-EP I Creatinine Equation (2020) Potassium measurement (mass/ volume)Ordered By: David Miramontes on 08-31-2024 Potassium (Unsp spec) [Mass/Vol] 4.2 mmol/L 3.3-5.[address] [facility] Serum creatinine measurement (mass/volume)Ordered By: David Miramontes on 08-31-2024 Creatinine [Mass/Vol] 0.93 mg/dL 0.70-1.20 [facility] Serum glucose measurement (m ass/volume)Ordered By: David Miramontes on 08-31-2024 Glucose [Mass/Vol] 86 mg/dL 70-99 [facility] Serum or plasma calcium siobhan urement (mass/volume)Ordered By: David Miramontes on 08-31-2024 Calcium [Mass/Vol] 9.4 mg/dL 7.6-11.0 [facility] Serum or plasma urea nitroge n measurement (mass/volume)Ordered By: David Miramontes on 08-31-2024 Urea nitrogen [Mass/Vol] 12 mg/dL 4-[address] [facility] Sodium levelOrdered By: Frandy durant Joesphamnatereza on 08-31-2024 Sodium [Moles/Vol] 139 mmol/L 133-145 [facility] Absolute lymphocyte countOrd ered By: David Miramontes on 08-22-2024 Lymphocytes Auto (Unsp spec) [#/Vol] 1.28 10*3/uL 0.83-4.[address] [facility] Absolute neutrophil countOrd ered By: David Miramontes on 08-22-2024 Neutrophils (Bld) [#/Vol] 5.0 10*3/uL 2.0-7.[address] [facility] Anion gap in Serum or Plasma Ordered By: David Miramontes on 08-22-2024 Anion gap [Moles/Vol] 8 mmol/L 5-15 [facility] Automated lymphocyte count a s percentage of total leukocytesOrdered By: David Miramontes on 08-22-2024 Lymphocytes/100 WBC Auto (Unsp spec) 17.6 % Low 19-[address] [facility] BUN/creatinine ratioOrdered By: David Miramontes on 08-22-2024 Urea nitrogen/Creatinine [Mass ratio] 13.7 mg/mg 10-[address] [facility] Basophil percentageOrdered B y: David Miramontes on 08-22-2024 Basophils/100 WBC (Bld) 0.7 % 0-1 [facility] Bilirubin, totalOrdered By: David Miramontes on 08-22-2024 Bilirubin [Mass/Vol] 0.31 mg/dL 0.00-1.30 [facility] Carbon dioxide, total [Moles /volume] in Central venous bloodOrdered By: David Miramontes on 08-22-2024 CO2 [Moles/Vol] 28.1 mmol/L 21.0-32.[address] [facility] Chloride assayOrdered By: Mayra waynecarleen Miramontes on 08-22-2024 Chloride [Moles/Vol] 107 mmol/L 98-108 [facility] Eosinophil percentageOrdered By: David Mriamontes on 08-22-2024 Eosinophils/100 WBC (Bld) 2.6 % 0-[address] [facility] Erythrocyte distribution wid th ratioOrdered By: David Miramontes on 08-22-2024 Erythrocyte distribution width (RBC) [Ratio] 15.3 % High 11.6-14.[address] [facility] Erythrocyte distribution wid th standard deviationOrdered By: David Miramontes on 08-22-2024 Erythrocyte distribution width (RBC) [Ratio] 57.1 fl High 35.1-43.[address] [facility] Glomerular filtration rate ( GFR) estimation/1.73 sq m using serum, plasma, or whole bOrdered By: David Miramontes on 08-22-2024 GFR/1.73 sq M.predicted among non-blacks MDRD (S/P/Bld) [Vol rate/Area] 78 mL/min/{1.73_m2} >[address] [facility] Comment on above: mL/min/1.73m2 CKD-EP I Creatinine Equation (2020) Hematocrit Auto (Bld) [Volum e fraction]Ordered By: David Miramontes on 08-22-2024 Hematocrit (Bld) [Volume fraction] 41.1 % 40-[address] [facility] Hemoglobin measurementOrdere d By: David Miramontes on 08-22-2024 Hemoglobin (Bld) [Mass/Vol] 12.9 g/dL Low 13.0-16.[address] [facility] Immature granulocytes/100 WB C Auto (Bld)Ordered By: David Miramontes on 08-22-2024 Immature granulocytes/100 WBC (Bld) 0.600 % 0.0-0.[address] [facility] Comment on above: IG% - Immature Granu locytes (promyelocytes, myelocytes and metamyelocytes) > 1% indicates that a LEFT SHIFT is Present. Laboratory - Chemistry and C hemistry - challengeOrdered By: David Miramontes on 08-22-2024 AST [Catalytic activity/Vol] 34 U/L <[address] [facility] MCV (mean corpuscular volume ) determinationOrdered By: David Miramontes on 08-22-2024 MCV (RBC) [Entitic vol] 102.5 fL High 80-94 [facility] Mean corpuscular hemoglobin (MCH) determinationOrdered By: waynehollywoodingris Miramontes on 08-22-2024 MCH (RBC) [Entitic mass] 32.2 pg High 27.0-32.[address] [facility] Mean corpuscular hemoglobin concentration (MCHC) determinationOrdered By: David Miramontes on 08-22-2024 MCHC (RBC) [Mass/Vol] 31.4 g/dL Low 32-36 [facility] Mean platelet volume determi nationOrdered By: David Miramontes on 08-22-2024 Platelet mean volume (Bld) [Entitic vol] 11.4 fL 6.2-12.[address] [facility] Monocyte percentageOrdered B y: David Miarmontes on 08-22-2024 Monocytes/100 WBC (Bld) 10.0 % 0-10 [facility] Neutrophil percentageOrdered By: David Miramontes on 08-22-2024 Neutrophils/100 WBC (Bld) 68.5 % 47-[address] [facility] Nucleated red blood cell per centageOrdered By: David Miramontes on 08-22-2024 Nucleated RBC/100 WBC (Bld) [Ratio] 0 % 0-[address] [facility] Platelet countOrdered By: Mayra Miramontes on 08-22-2024 Platelets (Bld) [#/Vol] 170 10*3/uL 150-[address] [facility] Potassium measurement (mass/ volume)Ordered By: David Miramontes on 08-22-2024 Potassium (Unsp spec) [Mass/Vol] 3.8 mmol/L 3.3-5.[address] [facility] RBC Auto (Bld) [#/Vol]Ordere d By: David Miramontes on 08-22-2024 RBC (Bld) [#/Vol] 4.01 10*6/uL Low 4.6-6.2 [facility] Serum creatinine measurement (mass/volume)Ordered By: David Miramontes on 08-22-2024 Creatinine [Mass/Vol] 0.96 mg/dL 0.70-1.20 [facility] Serum globulin measurementOr dered By: David Miramontes on 08-22-2024 Globulin (S) [Mass/Vol] 2.7 g/dL 2.2-4.2 [facility] Serum glucose measurement (m ass/volume)Ordered By: David Miramontes on 08-22-2024 Glucose [Mass/Vol] 82 mg/dL 70-99 [facility] Serum or plasma alanine grant otransferase (ALT) measurementOrdered By: David Miramontes on 08-22-2024 ALT [Catalytic activity/Vol] 13 U/L <[address] [facility] Serum or plasma albumin siobhan urement (mass/volume)Ordered By: David Miramontes on 08-22-2024 Albumin [Mass/Vol] 3.5 g/dL 3.4-4.8 [facility] Serum or plasma albumin/glob ulin mass ratioOrdered By: David Miramontes on 08-22-2024 Albumin/Globulin [Mass ratio] 1.3 {ratio} 0.9-2.[address] [facility] Serum or plasma alkaline deven sphatase measurementOrdered By: David Miramontes on 08-22-2024 ALP [Catalytic activity/Vol] 106 U/L 40-[address] [facility] Serum or plasma calcium siobhan urement (mass/volume)Ordered By: David Miramontes on 08-22-2024 Calcium [Mass/Vol] 8.9 mg/dL 7.6-11.0 [facility] Serum or plasma urea nitroge n measurement (mass/volume)Ordered By: David Miramontes on 08-22-2024 Urea nitrogen [Mass/Vol] 13 mg/dL 4-[address] [facility] Sodium levelOrdered By: Frandy chavezyonatan Kulwinder on 08-22-2024 Sodium [Moles/Vol] 142 mmol/L 133-145 [facility] Total proteinOrdered By: Lg rupinderingris Miramontes on 08-22-2024 Protein [Mass/Vol] 6.2 g/dL 5.9-8.4 [facility] White blood cell (WBC) count Ordered By: David Miramontes on 08-22-2024 WBC (Bld) [#/Vol] 7.3 10*3/uL 4.4-11.0 [facility] Anion gap in Serum or Plasma Ordered By: David Miramontes on 08-02-2024 Anion gap [Moles/Vol] 11 mmol/L 5-15 [facility] BUN/creatinine ratioOrdered By: David Miramontes on 08-02-2024 Urea nitrogen/Creatinine [Mass ratio] 12.3 mg/mg 10-[address] [facility] Carbon dioxide, total [Moles /volume] in Central venous bloodOrdered By: David Miramontes on 08-02-2024 CO2 [Moles/Vol] 24.2 mmol/L 21.0-32.[address] [facility] Chloride assayOrdered By: Myara Miramontes on 08-02-2024 Chloride [Moles/Vol] 105 mmol/L 98-108 [facility] Glomerular filtration rate ( GFR) estimation/1.73 sq m using serum, plasma, or whole bOrdered By: David Miramontes on 08-02-2024 GFR/1.73 sq M.predicted among non-blacks MDRD (S/P/Bld) [Vol rate/Area] 73 mL/min/{1.73_m2} >[address] [facility] Comment on above: mL/min/1.73m2 CKD-EP I Creatinine Equation (2020) Potassium measurement (mass/ volume)Ordered By: David Miramontes on 08-02-2024 Potassium (Unsp spec) [Mass/Vol] 3.7 mmol/L 3.3-5.[address] [facility] Serum creatinine measurement (mass/volume)Ordered By: David Miramontes on 08-02-2024 Creatinine [Mass/Vol] 1.01 mg/dL 0.70-1.20 [facility] Serum glucose measurement (m ass/volume)Ordered By: David Miramontes on 08-02-2024 Glucose [Mass/Vol] 140 mg/dL High 70-99 [facility] Serum or plasma calcium siobhan urement (mass/volume)Ordered By: David Miramontes on 08-02-2024 Calcium [Mass/Vol] 9.1 mg/dL 7.6-11.0 [facility] Serum or plasma urea nitroge n measurement (mass/volume)Ordered By: David Miramontes on 08-02-2024 Urea nitrogen [Mass/Vol] 12 mg/dL 4-[address] [facility] Sodium levelOrdered By: Frandy chavezyonatan Kulwinder on 08-02-2024 Sodium [Moles/Vol] 141 mmol/L 133-145 [facility] Absolute lymphocyte countOrd ered By: David Miramontes on 08-01-2024 Lymphocytes Auto (Unsp spec) [#/Vol] 1.39 10*3/uL 0.83-4.[address] [facility] Absolute neutrophil countOrd ered By: David Miramontes on 08-01-2024 Neutrophils (Bld) [#/Vol] 4.8 10*3/uL 2.0-7.[address] [facility] Automated lymphocyte count a s percentage of total leukocytesOrdered By: David Miramontes on 08-01-2024 Lymphocytes/100 WBC Auto (Unsp spec) 18.9 % Low 19-[address] [facility] Basophil percentageOrdered B y: David Guerratereza on 08-01-2024 Basophils/100 WBC (Bld) 0.4 % 0-1 [facility] Eosinophil percentageOrdered By: [facility] Gu[facility] on 08-01-2024 Eosinophils/100 WBC (Bld) 2.6 % 0-[address] [facility] Erythrocyte distribution wid th ratioOrdered By: [facility] Guerratere[facility] on 08-01-2024 Erythrocyte distribution width (RBC) [Ratio] 15.5 % High 11.6-14.[address] [facility] Erythrocyte distribution wid th standard deviationOrdered By: [facility] Guerratereza on 08-01-2024 Erythrocyte distribution width (RBC) [Ratio] 57.9 fl High 35.1-43.[address] [facility] Hematocrit Auto (Bld) [Volum e fraction]Ordered By: waynehollywoodingris Pinkamnatereza on 08-01-2024 Hematocrit (Bld) [Volume fraction] 40.2 % 40-[address] [facility] Hemoglobin measurementOrdere d By: Vickyingris Pinkamnatereza on 08-01-2024 Hemoglobin (Bld) [Mass/Vol] 12.6 g/dL Low 13.0-16.[address] [facility] Immature granulocytes/100 WB C Auto (Bld)Ordered By: fawadingris Pinkamnatereza on 08-01-2024 Immature granulocytes/100 WBC (Bld) 0.400 % 0.0-0.[address] [facility] Comment on above: IG% - Immature Granu locytes (promyelocytes, myelocytes and metamyelocytes) > 1% indicates that a LEFT SHIFT is Present. MCV (mean corpuscular volume ) determinationOrdered By: Mayradanay Pinkamnatereza on 08-01-2024 MCV (RBC) [Entitic vol] 100.8 fL High 80-94 [facility] Mean corpuscular hemoglobin (MCH) determinationOrdered By: [facility] Pinkamnatereza on 08-01-2024 MCH (RBC) [Entitic mass] 31.6 pg 27.0-32.[address] [facility] Mean corpuscular hemoglobin concentration (MCHC) determinationOrdered By: [facility] Joesphtereza on 08-01-2024 MCHC (RBC) [Mass/Vol] 31.3 g/dL Low 32-36 [facility] Mean platelet volume determi nationOrdered By: Frandyfeliciaingris Pinkamnatereza on 08-01-2024 Platelet mean volume (Bld) [Entitic vol] 11.8 fL 6.2-12.[address] [facility] Monocyte percentageOrdered B y: Efdanay Pinkamnae on 08-01-2024 Monocytes/100 WBC (Bld) 12.5 % High 0-10 [facility] Neutrophil percentageOrdered By: David Pinkamnae on 08-01-2024 Neutrophils/100 WBC (Bld) 65.2 % 47-[address] [facility] Nucleated red blood cell per centageOrdered By: David Pinkamnatereza on 08-01-2024 Nucleated RBC/100 WBC (Bld) [Ratio] 0 % 0-[address] [facility] Platelet countOrdered By: Mayra fawadingris Miramontes on 08-01-2024 Platelets (Bld) [#/Vol] 182 10*3/uL 150-[address] [facility] RBC Auto (Bld) [#/Vol]Ordere d By: Frandycarleen Joesphamnatereza on 08-01-2024 RBC (Bld) [#/Vol] 3.99 10*6/uL Low 4.6-6.2 [facility] White blood cell (WBC) count Ordered By: David Miramontes on 08-01-2024 WBC (Bld) [#/Vol] 7.4 10*3/uL 4.4-11.0 [facility] Absolute lymphocyte countOrd ered By: David Miramontes on 07-21-2024 Lymphocytes Auto (Unsp spec) [#/Vol] 1.21 10*3/uL 0.83-4.[address] [facility] Absolute neutrophil countOrd ered By: David Miramontes on 07-21-2024 Neutrophils (Bld) [#/Vol] 5.1 10*3/uL 2.0-7.[address] [facility] Anion gap in Serum or Plasma Ordered By: David Miramontes on 07-21-2024 Anion gap [Moles/Vol] 10 mmol/L 5-15 [facility] Automated lymphocyte count a s percentage of total leukocytesOrdered By: David Miramontes on 07-21-2024 Lymphocytes/100 WBC Auto (Unsp spec) 16.7 % Low 19-[address] [facility] BUN/creatinine ratioOrdered By: David Pnikamnatereza on 07-21-2024 Urea nitrogen/Creatinine [Mass ratio] 16.2 mg/mg 10-[address] [facility] Basophil percentageOrdered B y: Frandyfeliciaingris Pinkamnatereza on 07-21-2024 Basophils/100 WBC (Bld) 0.4 % 0-1 [facility] Carbon dioxide, total [Moles /volume] in Central venous bloodOrdered By: David Pinkamnatereza on 07-21-2024 CO2 [Moles/Vol] 25.5 mmol/L 21.0-32.[address] [facility] Chloride assayOrdered By: Mayra waynecarleen Miramontes on 07-21-2024 Chloride [Moles/Vol] 106 mmol/L 98-108 [facility] [facility] Eosinophil percentageOrdered By: Frandyhollywoodingris Pinkamnatereza on 07-21-2024 Eosinophils/100 WBC (Bld) 1.4 % 0-[address] [facility] Erythrocyte distribution wid th ratioOrdered By: waynehollywoodingris Pinkamnatereza on 07-21-2024 Erythrocyte distribution width (RBC) [Ratio] 15.4 % High 11.6-14.[address] [facility] Erythrocyte distribution wid th standard deviationOrdered By: [facility] Joesphamnatereza on 07-21-2024 Erythrocyte distribution width (RBC) [Ratio] 57.9 fl High 35.1-43.[address] [facility] Glomerular filtration rate ( GFR) estimation/1.73 sq m using serum, plasma, or whole bOrdered By: waynehollywoodingris Miramontes on 07-21-2024 GFR/1.73 sq M.predicted among non-blacks MDRD (S/P/Bld) [Vol rate/Area] 67 mL/min/{1.73_m2} >[address] [facility] Comment on above: mL/min/1.73m2 CKD-EP I Creatinine Equation (2020) Hematocrit Auto (Bld) [Volum e fraction]Ordered By: David Miramontes on 07-21-2024 Hematocrit (Bld) [Volume fraction] 39.0 % Low 40-[address] [facility] Hemoglobin measurementOrdere d By: David Miramontes on 07-21-2024 Hemoglobin (Bld) [Mass/Vol] 12.4 g/dL Low 13.0-16.[address] [facility] Immature granulocytes/100 WB C Auto (Bld)Ordered By: David Miramontes on 07-21-2024 Immature granulocytes/100 WBC (Bld) 0.400 % 0.0-0.[address] [facility] Comment on above: IG% - Immature Granu locytes (promyelocytes, myelocytes and metamyelocytes) > 1% indicates that a LEFT SHIFT is Present. MCV (mean corpuscular volume ) determinationOrdered By: David Miramontes on 07-21-2024 MCV (RBC) [Entitic vol] 101.0 fL High 80-94 [facility] Mean corpuscular hemoglobin (MCH) determinationOrdered By: David Miramontes on 07-21-2024 MCH (RBC) [Entitic mass] 32.1 pg High 27.0-32.[address] [facility] Mean corpuscular hemoglobin concentration (MCHC) determinationOrdered By: David Miramontes on 07-21-2024 MCHC (RBC) [Mass/Vol] 31.8 g/dL Low 32-36 [facility] Mean platelet volume determi nationOrdered By: David Miramontes on 07-21-2024 Platelet mean volume (Bld) [Entitic vol] 11.7 fL 6.2-12.[address] [facility] Monocyte percentageOrdered B y: David Miramontes on 07-21-2024 Monocytes/100 WBC (Bld) 11.3 % High 0-10 [facility] Neutrophil percentageOrdered By: David Miramontes on 07-21-2024 Neutrophils/100 WBC (Bld) 69.8 % 47-[address] [facility] Nucleated red blood cell per centageOrdered By: David Miramontes on 07-21-2024 Nucleated RBC/100 WBC (Bld) [Ratio] 0 % 0-[address] [facility] Platelet countOrdered By: Mayra Miramontes on 07-21-2024 Platelets (Bld) [#/Vol] 172 10*3/uL 150-[address] [facility] Potassium measurement (mass/ volume)Ordered By: David Miramontes on 07-21-2024 Potassium (Unsp spec) [Mass/Vol] 3.9 mmol/L 3.3-5.[address] [facility] RBC Auto (Bld) [#/Vol]Ordere d By: David Miramontes on 07-21-2024 RBC (Bld) [#/Vol] 3.86 10*6/uL Low 4.6-6.2 [facility] Serum creatinine measurement (mass/volume)Ordered By: David Miramontes on 07-21-2024 Creatinine [Mass/Vol] 1.08 mg/dL 0.70-1.20 [facility] Serum glucose measurement (m ass/volume)Ordered By: David Miramontes on 07-21-2024 Glucose [Mass/Vol] 90 mg/dL 70-99 [facility] Serum or plasma calcium siobhan urement (mass/volume)Ordered By: David Miramontes on 07-21-2024 Calcium [Mass/Vol] 9.1 mg/dL 7.6-11.0 [facility] Serum or plasma urea nitroge n measurement (mass/volume)Ordered By: David Miramontes on 07-21-2024 Urea nitrogen [Mass/Vol] 18 mg/dL 4-[address] [facility] Sodium levelOrdered By: Frandy Miramontes on 07-21-2024 Sodium [Moles/Vol] 141 mmol/L 133-145 [facility] TSH DL <= 0.005 mIU/L QnOrde red By: David Miramontes on 07-21-2024 TSH Qn 2.450 uIU/mL 0.300-4.[address] [facility] White blood cell (WBC) count Ordered By: David Miramontes on 07-21-2024 WBC (Bld) [#/Vol] 7.3 10*3/uL 4.4-11.0 [facility] BLADDER SCANon 07-14-2024 PVR 59 Cc [facility] BLADDER SCANOrdered By: Dayo Perez on 07-14-2024 [facility] CNOVon 07-14-2024 CNOV Office Visit (AKURFL) KEL DILLARD ([id number]) 1940 M Date Time Provider Department 07/14/24 9:00 AM DIANA ARANGO During your visit today, we recorded the following information about you: Diana Arango APRN.FACILITY DESIGNER 07/14/2024 9:11 AM Signed [facility]ly [facility] [place] [facility] [place] [facility] NEW PATIENT UROLOGY VISIT 07/14/2024 [...] kg/m? Physical (more content not included)... Normal [facility] CYTOLOGY NON-GYNon 5 AP DISCLAIMER Normal [facility] Comment on above: Order Comment: Speci men Type: URINE SPECIMEN Ordering Facility: [facility] Address: [address] [place] [id number] Result Comment: Hussain blanco Developed Test (LDT) Disclaimer: Performance characteristics of immunohistochemical, immunofluorescent, and chromogenic in-situ hybridization tests have been determined by the performing laboratory within [facility]'s [facility] Lucas Pathology and Laboratory Medicine Department ([facility], [facility], [facility], [facility], [facility], [facility], or [facility]) in a manner consistent with CLIA requirements. One or more of these tests may not have been cleared or approved by the FDA. [facility] is regulated under CLIA as qualified to perform high-complexity testing. These tests are used for clinical purposes. These should not be regarded as investigational or for research. Positive and negative controls stain appropriately. Performed By: #### C YTONON #### [facility] CLIA [id number] [address] CASE REPORT Normal [facility] Comment on above: Order Comment: Speci men Type: URINE SPECIMEN Ordering Facility: [facility] Address: [address] [place] [address] Result Comment: [facility] Cytology Report Case: [id number] Authorizing Provider: Diana Arango Collected: 07/14/2024 09:01 AM MATTHEW Andres Ordering Location: [place] [facility] Received: 07/17/2024 03:50 AM Pathologist: Rosy Cavazos MD Specimen: Urine, Midstream Performed By: #### C YTONON #### [facility] CLIA [id number] [address] [place] [address] CLINICAL HISTORY gross hematuria Normal [facility] Comment on above: Order Comment: Speci men Type: URINE SPECIMEN Ordering Facility: [facility] Address: [address] [place] [address] Performed By: #### C YTONON #### [facility] CLIA [id number] [address] [place] [address] [facility] Comment on above: Order Comment: Speci men Type: URINE SPECIMEN Ordering Facility: [facility] Address: [address] [place] [address] Result Comment: A - Urine, Midstream Negative for high-grade urothelial carcinoma. Blood. at 1046 EDT Performed By: #### C YTONON #### [facility] CLIA [id number] [address] [place] [address] FINAL PERFORMING LAB Normal [facility] Comment on above: Order Comment: Speci men Type: URINE SPECIMEN Ordering Facility: [facility] Address: [address] [place] [address] Result Comment: Tech nical component, delicatessen store manager screening performed at: [facility], [address] [place] [address] CLIA: [id number] Diagnostic interpretation performed at: [facility], [address] [place] [address] CLIA# [id number] Stationary Engineer Apprentice: Josiah Ochoa MD Performed By: #### C YTONON #### [facility] CLIA [id number] [address] OF [place]OSS DESCRIPTION Normal [facility] Comment on above: Order Comment: Speci men Type: URINE SPECIMEN Ordering Facility: [facility] Address: [address] [place] [address] Result Comment: A. U rine, Midstream 7.5 cc cloudy yellow fluid. ThinPrep prepared. Performed By: #### C YTONON #### [facility] CLIA [id number] [address] [place] [address] [place] UA DIP, URINE (POC)on 2024 BILIRUBIN UA (POCT) Negative Negative [facility] CLARITY UA (POCT) Clear [facility] COLOR UA (POCT) Yellow [facility] GLUCOSE UA (POCT) Negative Negative mg/dL [facility] Hemoglobin Ql (U) Trace-intact Abnormal Negative [facility] Interpretation and review of laboratory results Abnormal [facility] KETONE UA (POCT) Negative Negative mg/dL [facility] LEUKOCYTES UA (POCT) Negative Negative [facility] NITRITE UA (POCT) Negative Negative [facility] PH UA (POCT) 5.5 4.5 - 8.0 [facility] Protein Ql (U) 30 mg/dL Abnormal Negative [facility] SPECIFIC GRAVITY UA (POCT) 1.025 1.005 - 1.030 [facility] UROBILINOGEN UA (POCT) 0.2 Debbie l E.U./dL [facility] Location:[facility], [address] [place] [address], [address] [place] [address] POINT OF CARE [facility] Serum or plasma uric acid me asurement (mass/volume)Ordered By: David Miramontes on 06-23-2024 Urate [Mass/Vol] 4.2 mg/dL 3.5-7.[address] [facility] Comment on above: The drugs N-Acetylcy steine and Metamizole may falsely depress this assay. Absolute lymphocyte countOrd ered By: David Miramontes on 06-05-2024 Lymphocytes Auto (Unsp spec) [#/Vol] 1.05 10*3/uL 0.83-4.[address] [facility] Absolute neutrophil countOrd ered By: David Miramontes on 06-05-2024 Neutrophils (Bld) [#/Vol] 4.8 10*3/uL 2.0-7.[address] [facility] Anion gap in Serum or Plasma Ordered By: David Miramontes on 06-05-2024 Anion gap [Moles/Vol] 11 mmol/L 5-15 [facility] Automated lymphocyte count a s percentage of total leukocytesOrdered By: David Miramontes on 06-05-2024 Lymphocytes/100 WBC Auto (Unsp spec) 15.8 % Low 19-[address] [facility] BUN/creatinine ratioOrdered By: David Miramontes on 06-05-2024 Urea nitrogen/Creatinine [Mass ratio] 9.3 mg/mg Low 10-[address] [facility] Basophil percentageOrdered B y: David Miramontes on 06-05-2024 Basophils/100 WBC (Bld) 1.1 % High 0-1 [facility] Carbon dioxide, total [Moles /volume] in Central venous bloodOrdered By: David Miramontes on 06-05-2024 CO2 [Moles/Vol] 26.8 mmol/L 21.0-32.[address] [facility] Chloride assayOrdered By: Mayra Miramontes on 06-05-2024 Chloride [Moles/Vol] 101 mmol/L 98-108 [facility] Eosinophil percentageOrdered By: danay Miramontes on 06-05-2024 Eosinophils/100 WBC (Bld) 2.3 % 0-[address] [facility] Erythrocyte distribution wid th (RBC) [Ratio]Ordered By: David Miramontes on 06-05-2024 Erythrocyte distribution width (RBC) [Entitic vol] 55.4 fL High 35.1-43.[address] [facility] Erythrocyte distribution wid th ratioOrdered By: David Miramontes on 06-05-2024 Erythrocyte distribution width (RBC) [Ratio] 15.0 % High 11.6-14.[address] [facility] Erythrocyte distribution wid th standard deviationOrdered By: David Miramontes on 06-05-2024 Erythrocyte distribution width (RBC) [Ratio] 55.4 fl High 35.1-43.[address] [facility] GFR/1.73 sq M.predicted eleazar g non-blacks MDRD (S/P/Bld) [Vol rate/Area]Ordered By: David Miramontes on 06-05-2024 Estimated GFR (MDRD) Non-Af Amer 48 Low >[address] [facility] Comment on above: mL/min/1.73m2 CKD-EP I Creatinine Equation (2020) Glomerular filtration rate ( GFR) estimation/1.73 sq m using serum, plasma, or whole bOrdered By: David Miramontes on 06-05-2024 GFR/1.73 sq M.predicted among non-blacks MDRD (S/P/Bld) [Vol rate/Area] 48 mL/min/{1.73_m2} Low >[address] [facility] Comment on above: mL/min/1.73m2 CKD-EP I Creatinine Equation (2020) Hematocrit Auto (Bld) [Volum e fraction]Ordered By: David Miramontes on 06-05-2024 Hematocrit (Bld) [Volume fraction] 41.8 % 40-[address] [facility] Hemoglobin measurementOrdere d By: David Miramontes on 06-05-2024 Hemoglobin (Bld) [Mass/Vol] 13.3 g/dL 13.0-16.[address] [facility] Immature granulocytes/100 WB C Auto (Bld)Ordered By: David Miramontes on 06-05-2024 Immature granulocytes/100 WBC (Bld) 0.300 % 0.0-0.[address] [facility] Comment on above: IG% - Immature Granu locytes (promyelocytes, myelocytes and metamyelocytes) > 1% indicates that a LEFT SHIFT is Present. Lymphocytes Auto (Unsp spec) [#/Vol]Ordered By: David Miramontes on 06-05-2024 Lymphocytes (Bld) [#/Vol] 1.05 10*3/uL 0.83-4.[address] [facility] Lymphocytes/100 WBC Auto (Un sp spec)Ordered By: David Miramontes on 06-05-2024 Lymphocytes/100 WBC (Bld) 15.8 % Low 19-[address] [facility] MCV (mean corpuscular volume ) determinationOrdered By: David Miramontes on 06-05-2024 MCV (RBC) [Entitic vol] 100.5 fL High 80-94 [facility] Mean corpuscular hemoglobin (MCH) determinationOrdered By: waynehollywoodingris Miramontes on 06-05-2024 MCH (RBC) [Entitic mass] 32.0 pg 27.0-32.[address] [facility] Mean corpuscular hemoglobin concentration (MCHC) determinationOrdered By: waynehollywoodingris Miramontes on 06-05-2024 MCHC (RBC) [Mass/Vol] 31.8 g/dL Low 32-36 [facility] Mean platelet volume determi nationOrdered By: David Miramontes on 06-05-2024 Platelet mean volume (Bld) [Entitic vol] 11.3 fL 6.2-12.[address] [facility] Monocyte percentageOrdered B y: David Miramontes on 06-05-2024 Monocytes/100 WBC (Bld) 8.9 % 0-10 [facility] Neutrophil percentageOrdered By: waynehollywoodingris Miramontes on 06-05-2024 Neutrophils/100 WBC (Bld) 71.6 % High 47-[address] [facility] Nucleated red blood cell per centageOrdered By: David Miramontes on 06-05-2024 Nucleated RBC/100 WBC (Bld) [Ratio] 0 % 0-[address] [facility] Platelet countOrdered By: Mayra Miramontes on 06-05-2024 Platelets (Bld) [#/Vol] 216 10*3/uL 150-[address] [facility] Potassium (Unsp spec) [Mass/ Vol]Ordered By: David Miramontes on 06-05-2024 Potassium [Moles/Vol] 3.9 mmol/L 3.3-5.1 [facility] Potassium measurement (mass/ volume)Ordered By: David Miramontes on 06-05-2024 Potassium (Unsp spec) [Mass/Vol] 3.9 mmol/L 3.3-5.[address] [facility] RBC Auto (Bld) [#/Vol]Ordere d By: David Miramontes on 06-05-2024 RBC (Bld) [#/Vol] 4.16 10*6/uL Low 4.6-6.2 [facility] Serum creatinine measurement (mass/volume)Ordered By: David Miramontes on 06-05-2024 Creatinine [Mass/Vol] 1.42 mg/dL High 0.70-1.20 [facility] Serum glucose measurement (m ass/volume)Ordered By: David Miramontes on 06-05-2024 Glucose [Mass/Vol] 85 mg/dL 70-99 [facility] Serum or plasma calcium siobhan urement (mass/volume)Ordered By: David Miramontes on 06-05-2024 Calcium [Mass/Vol] 9.0 mg/dL 7.6-11.0 [facility] Serum or plasma urea nitroge n measurement (mass/volume)Ordered By: David Miramontes on 06-05-2024 Urea nitrogen [Mass/Vol] 13 mg/dL 4-[address] [facility] Sodium levelOrdered By: Frandy Miramontes on 06-05-2024 Sodium [Moles/Vol] 139 mmol/L 133-145 [facility] White blood cell (WBC) count Ordered By: David Miramontes on 06-05-2024 WBC (Bld) [#/Vol] 6.6 10*3/uL 4.4-11.0 [facility] Amorphous sediment detection in urine sediment by light microscopyOrdered By: David Miramontes on 05-30-2024 Amorphous sediment LM Ql (Urine sed) 1+ [facility] Ankle Brachial Indexon 05-30 Ankle Brachial Index [facility] [address] [place] [address] Ankle Brachial Index 05/30/24 0904 MR#: [id number] Acct: [id number] Name: KEL DILLARD Rep #: [id number] : 1940 84 From: Josiah Klein MD Attending Dr: Dr. David Miramontes MD Status: REG CLI Ordering Dr: David Miramontes MD Date: 05/30/24 Location: [facility] Sex: M C Admitted: Reason [...] Dictated: 05/30/24 0904 Date Transcribed: 05/30/24 154 L[address] Drier Operator: Signed Normal [facility] Arterial study reportOrdered By: Josiah Klein on 05-30-2024 Noninvasive arteriosclerosis study report [facility] [address] [place] [address] Ankle Brachial Index 05/30/24 0904 MR#: [id number] Acct: [id number] Name: KEL DILLARD Rep #:[id number] : 1940 84 From: Josiah Naranjo Attending Dr: Dr. David Miramontes MD Status: REG CLI Ordering Dr: David Miramontes MD Date: 05/30/24 Location: [facility] Sex: M C Admitted: Reason [...] ~ Date Dictated: 05/30/24 0904 Date Transcribed: 05/30/241542 Linter Drier Operator: Signed [facility] Work Phone: Bilirubin Test strip Ql (U)O rdered By: David Miramontes on 05-30-2024 Bilirubin Ql (U) Negative Negative [facility] Epithelial cells.squamous LM Ql (Urine sed)Ordered By: David Miramontes on 05-30-2024 Epithelial cells.squamous LM.HPF (Urine sed) [#/Area] 0 /[HPF] 0-[address] [facility] Glucose Ql (U)Ordered By: Mayra Miramontes on 05-30-2024 Urine Glucose (UA) Normal mg/dl Normal [facility] Ketones Test strip Ql (U)Ord ered By: David Miramontes on 05-30-2024 Ketones Ql (U) Negative Negative [facility] Microscopic analysis of urin e for red blood cells (RBC)Ordered By: David Miramontes on 05-30-2024 Microscopic analysis of urine for red blood cells (RBC) > 100 SEEN /hpf 0-[address] [facility] Urine RBC > 100 SEEN /hpf 0-[address] [facility] Mucus LM Ql (Urine sed)Order ed By: David Miramontes on 05-30-2024 Mucus Ql (Urine sed) 0 SEEN /hpf [facility] Nitrite Test strip Ql (U)Ord ered By: David Miramontes on 05-30-2024 Nitrite Ql (U) Positive High Negative [facility] PSA, total screeningOrdered By: David Miramontes on 05-30-2024 Prostate Specific Antigen Screen 3.08 ng/mL 0.02-4.[address] [facility] Comment on above: This test was [...] 500 mg/dl High Negative [facility] Squamous epithelial cells de tection in urine sediment by light microscopyOrdered By: David Miramontes on 05-30-2024 Epithelial cells.squamous LM Ql (Urine sed) 0-5 SEEN /hpf 0-[address] [facility] Urine blood detectionOrdered By: David Miramontes on 05-30-2024 Urine Occult Blood 250 /ul High Negative [facility] Urine clarityOrdered By: Lg Miramontes on 05-30-2024 Clarity (U) Cloudy Clear [facility] Urine color determinationOrd ered By: David Miramontes on 05-30-2024 Color (U) Brown Yellow [facility] Urine cultureOrdered By: Lg Miramontes on 05-30-2024 Bacteria identified Cx Nom (U) Proteus mirabilis Abnormal [facility] Urine glucose detectionOrder ed By: David Miramontes on 05-30-2024 Glucose Ql (U) Normal mg/dl Normal [facility] Urine leukocyte esterase det ection by dipstickOrdered By: David Miramontes on 05-30-2024 Leukocyte esterase Test strip Ql (U) 500 /ul High Negative [facility] Urine pHOrdered By: Leo Miramontes on 05-30-2024 pH (U) 6.5 [pH] 5.0 - 8.[address] [facility] Urine sediment bacteria coun t by microscopy (number/high power field)Ordered By: David Miramontes on 05-30-2024 Bacteria LM.HPF (Urine sed) [#/Area] 2 /[HPF] None Seen [facility] Urine specific gravity measu rementOrdered By: David Miramontes on 05-30-2024 Specific gravity (U) [Rel density] 1.015 1.002-1.[address] [facility] Urine urobilinogen measureme ntOrdered By: David Miramontes on 05-30-2024 Urobilinogen Ql (U) 1 mg/dl High Normal [facility] Urobilinogen Ql (U)Ordered B y: David Miramontes on 05-30-2024 Urobilinogen (U) [Mass/Vol] 1 mg/dL High Normal [facility] White blood cell countOrdere d By: David Miramontes on 05-30-2024 Urine WBC 50-100 SEEN /hpf 0-[address] [facility] White blood cell count 50-100 SEEN /hpf 0-[address] [facility] Absolute lymphocyte countOrd ered By: David Miramontes on 05-22-2024 Lymphocytes Auto (Unsp spec) [#/Vol] 1.26 10*3/uL 0.83-4.[address] [facility] Absolute neutrophil countOrd ered By: David Miramontes on 05-22-2024 Neutrophils (Bld) [#/Vol] 6.5 10*3/uL 2.0-7.[address] [facility] Anion gap in Serum or Plasma Ordered By: David Miramontes on 05-22-2024 Anion gap [Moles/Vol] 13 mmol/L 5-15 [facility] Automated lymphocyte count a s percentage of total leukocytesOrdered By: David Miramontes on 05-22-2024 Lymphocytes/100 WBC Auto (Unsp spec) 14.0 % Low 19-[address] [facility] BUN/creatinine ratioOrdered By: David Miramontes on 05-22-2024 Urea nitrogen/Creatinine [Mass ratio] 7.8 mg/mg Low 10-[address] [facility] Basophil percentageOrdered B y: David Miramontes on 05-22-2024 Basophils/100 WBC (Bld) 0.4 % 0-1 [facility] Bilirubin, totalOrdered By: danay Miramontes on 05-22-2024 Bilirubin [Mass/Vol] 0.44 mg/dL 0.00-1.30 [facility] Carbon dioxide, total [Moles /volume] in Central venous bloodOrdered By: David Miramontes on 05-22-2024 CO2 [Moles/Vol] 24.8 mmol/L 21.0-32.[address] [facility] Chloride assayOrdered By: Mayra Miramontes on 05-22-2024 Chloride [Moles/Vol] 104 mmol/L 98-108 [facility] Eosinophil percentageOrdered By: danay Miramontes on 05-22-2024 Eosinophils/100 WBC (Bld) 1.0 % 0-[address] [facility] Erythrocyte distribution wid th (RBC) [Ratio]Ordered By: David Miramontes on 05-22-2024 Erythrocyte distribution width (RBC) [Entitic vol] 54.3 fL High 35.1-43.[address] [facility] Erythrocyte distribution wid th ratioOrdered By: danay Miramontes on 05-22-2024 Erythrocyte distribution width (RBC) [Ratio] 15.1 % High 11.6-14.[address] [facility] Erythrocyte distribution wid th standard deviationOrdered By: David Miramontes on 05-22-2024 Erythrocyte distribution width (RBC) [Ratio] 54.3 fl High 35.1-43.[address] [facility] GFR/1.73 sq M.predicted eleazar g non-blacks MDRD (S/P/Bld) [Vol rate/Area]Ordered By: David Miramontes on 05-22-2024 Estimated GFR (MDRD) Non-Af Amer 33 Low >[address] [facility] Comment on above: mL/min/1.73m2 CKD-EP I Creatinine Equation (2020) Glomerular filtration rate ( GFR) estimation/1.73 sq m using serum, plasma, or whole bOrdered By: David Miramontes on 05-22-2024 GFR/1.73 sq M.predicted among non-blacks MDRD (S/P/Bld) [Vol rate/Area] 33 mL/min/{1.73_m2} Low >[address] [facility] Comment on above: mL/min/1.73m2 CKD-EP I Creatinine Equation (2020) Hematocrit Auto (Bld) [Volum e fraction]Ordered By: David Miramontes on 05-22-2024 Hematocrit (Bld) [Volume fraction] 40.5 % 40-54 [facility] [facility] Hemoglobin measurementOrdere d By: David Miramontes on 05-22-2024 Hemoglobin (Bld) [Mass/Vol] 12.9 g/dL Low 13.0-16.[address] [facility] Immature granulocytes/100 WB C Auto (Bld)Ordered By: David Miramontes on 05-22-2024 Immature granulocytes/100 WBC (Bld) 0.300 % 0.0-0.[address] [facility] Comment on above: IG% - Immature Granu locytes (promyelocytes, myelocytes and metamyelocytes) > 1% indicates that a LEFT SHIFT is Present. Laboratory - Chemistry and C hemistry - challengeOrdered By: David Miramontes on 05-22-2024 AST [Catalytic activity/Vol] 33 U/L <[address] [facility] Lymphocytes Auto (Unsp spec) [#/Vol]Ordered By: David Miramontes on 05-22-2024 Lymphocytes (Bld) [#/Vol] 1.26 10*3/uL 0.83-4.[address] [facility] Lymphocytes/100 WBC Auto (Un sp spec)Ordered By: David Miramontes on 05-22-2024 Lymphocytes/100 WBC (Bld) 14.0 % Low 19-[address] [facility] MCV (mean corpuscular volume ) determinationOrdered By: David Miramontes on 05-22-2024 MCV (RBC) [Entitic vol] 99.3 fL High 80-94 [facility] Mean corpuscular hemoglobin (MCH) determinationOrdered By: David Miramontes on 05-22-2024 MCH (RBC) [Entitic mass] 31.6 pg 27.0-32.[address] [facility] Mean corpuscular hemoglobin concentration (MCHC) determinationOrdered By: David Miramontes on 05-22-2024 MCHC (RBC) [Mass/Vol] 31.9 g/dL Low 32-36 [facility] Mean platelet volume determi nationOrdered By: David Miramontes on 05-22-2024 Platelet mean volume (Bld) [Entitic vol] 12.1 fL High 6.2-12.[address] [facility] Monocyte percentageOrdered B y: David Miramontes on 05-22-2024 Monocytes/100 WBC (Bld) 11.8 % High 0-10 [facility] Neutrophil percentageOrdered By: David Miramontes on 05-22-2024 Neutrophils/100 WBC (Bld) 72.5 % High 47-[address] [facility] Nucleated red blood cell per centageOrdered By: David Miramontes on 05-22-2024 Nucleated RBC/100 WBC (Bld) [Ratio] 0 % 0-[address] [facility] Platelet countOrdered By: Mayra Miramontes on 05-22-2024 Platelets (Bld) [#/Vol] 179 10*3/uL 150-[address] [facility] Potassium (Unsp spec) [Mass/ Vol]Ordered By: David Miramontes on 05-22-2024 Potassium [Moles/Vol] 3.3 mmol/L 3.3-5.1 [facility] Potassium measurement (mass/ volume)Ordered By: David Miramontes on 05-22-2024 Potassium (Unsp spec) [Mass/Vol] 3.3 mmol/L 3.3-5.[address] [facility] RBC Auto (Bld) [#/Vol]Ordere d By: David Miramontes on 05-22-2024 RBC (Bld) [#/Vol] 4.08 10*6/uL Low 4.6-6.2 [facility] Serum creatinine measurement (mass/volume)Ordered By: David Miramontes on 05-22-2024 Creatinine [Mass/Vol] 1.94 mg/dL High 0.70-1.20 [facility] Serum globulin measurementOr dered By: David Miramontes on 05-22-2024 Globulin (S) [Mass/Vol] 3.2 g/dL 2.2-4.2 [facility] Serum glucose measurement (m ass/volume)Ordered By: David Miramontes on 05-22-2024 Glucose [Mass/Vol] 112 mg/dL High 70-99 [facility] Serum or plasma alanine grant otransferase (ALT) measurementOrdered By: David Miramontes on 05-22-2024 ALT [Catalytic activity/Vol] 8 U/L <[address] [facility] Serum or plasma albumin siobhan urement (mass/volume)Ordered By: David Miramontes on 05-22-2024 Albumin [Mass/Vol] 3.5 g/dL 3.4-4.8 [facility] Serum or plasma albumin/glob ulin mass ratioOrdered By: David Miramontes on 05-22-2024 Albumin/Globulin [Mass ratio] 1.1 {ratio} 0.9-2.[address] [facility] Serum or plasma alkaline deven sphatase measurementOrdered By: David Miramontes on 05-22-2024 ALP [Catalytic activity/Vol] 71 U/L 40-[address] [facility] Serum or plasma calcium siobhan urement (mass/volume)Ordered By: David Miramontes on 05-22-2024 Calcium [Mass/Vol] 8.8 mg/dL 7.6-11.0 [facility] Serum or plasma urea nitroge n measurement (mass/volume)Ordered By: David Miramontes on 05-22-2024 Urea nitrogen [Mass/Vol] 15 mg/dL 4-[address] [facility] Sodium levelOrdered By: Frandy Miramontes on 05-22-2024 Sodium [Moles/Vol] 141 mmol/L 133-145 [facility] Total proteinOrdered By: Lg Miramontes on 05-22-2024 Protein [Mass/Vol] 6.7 g/dL 5.9-8.4 [facility] White blood cell (WBC) count Ordered By: David Miramontes on 05-22-2024 WBC (Bld) [#/Vol] 9.0 10*3/uL 4.4-11.0 [facility] Bilirubin Test strip Ql (U)O rdered By: David Miramontes on 04-17-2024 Bilirubin Ql (U) 1 mg/dL High Negative [facility] Comment on above: COLOR OF URINE MAY A FFECT DIPSTICK RESULTS. Glucose Ql (U)Ordered By: Mayra Miramontes on 04-17-2024 Urine Glucose (UA) Normal mg/dl Normal [facility] Ketones Test strip Ql (U)Ord ered By: David Miramontes on 04-17-2024 Ketones Ql (U) 5 mg/dl High Negative [facility] Nitrite Test strip Ql (U)Ord ered By: David Miramontes on 04-17-2024 Nitrite Ql (U) Negative Negative [facility] Protein Test strip Ql (U)Ord ered By: David Miramontes on 04-17-2024 Protein Ql (U) 100 mg/dl High Negative [facility] Urine blood detectionOrdered By: David Miramontes on 04-17-2024 Urine Occult Blood 250 /ul High Negative [facility] Urine clarityOrdered By: Lg Miramontes on 04-17-2024 Clarity (U) Turbid Clear [facility] Urine color determinationOrd ered By: David Miramontes on 04-17-2024 Color (U) Kristina Yellow [facility] Urine cultureOrdered By: Lg Miramontes on 04-17-2024 Bacteria identified Cx Nom (U) Proteus mirabilis Abnormal [facility] Urine glucose detectionOrder ed By: David Miramontes on 04-17-2024 Glucose Ql (U) Normal mg/dl Normal [facility] Urine leukocyte esterase det ection by dipstickOrdered By: David Miramontes on 04-17-2024 Leukocyte esterase Test strip Ql (U) 100 /ul High Negative [facility] Urine pHOrdered By: Leo Miramontes on 04-17-2024 pH (U) 5.0 [pH] 5.0 - 8.[address] [facility] Urine specific gravity measu rementOrdered By: David Miramontes on 04-17-2024 Specific gravity (U) [Rel density] 1.025 1.002-1.[address] [facility] Urine urobilinogen measureme ntOrdered By: David Miramontes on 04-17-2024 Urobilinogen Ql (U) Normal mg/dl Normal [facility] Urobilinogen Ql (U)Ordered B y: David Miramontes on 04-17-2024 Urine Urobilinogen Normal mg/dl Normal [facility] Absolute lymphocyte countOrd ered By: David Miramontes on 04-13-2024 Lymphocytes Auto (Unsp spec) [#/Vol] 0.98 10*3/uL 0.83-4.[address] [facility] Absolute neutrophil countOrd ered By: David Miramontes on 04-13-2024 Neutrophils (Bld) [#/Vol] 7.0 10*3/uL 2.0-7.[address] [facility] Automated lymphocyte count a s percentage of total leukocytesOrdered By: David Miramontes on 04-13-2024 Lymphocytes/100 WBC Auto (Unsp spec) 11.0 % Low 19-[address] [facility] Basophil percentageOrdered B y: David Miramontes on 04-13-2024 Basophils/100 WBC (Bld) 0.2 % 0-1 [facility] Eosinophil percentageOrdered By: [facility] Pink[facility]re[facility] on 04-13-2024 Eosinophils/100 WBC (Bld) 1.2 % 0-[address] [facility] Erythrocyte distribution wid th (RBC) [Ratio]Ordered By: waynehollywoodingris Miramontes on 04-13-2024 Erythrocyte distribution width (RBC) [Entitic vol] 52.6 fL High 35.1-43.[address] [facility] Erythrocyte distribution wid th ratioOrdered By: [facility] Joesphtereza on 04-13-2024 Erythrocyte distribution width (RBC) [Ratio] 14.6 % 11.6-14.[address] [facility] Erythrocyte distribution wid th standard deviationOrdered By: [facility] Pink[facility]re[facility] on 04-13-2024 Erythrocyte distribution width (RBC) [Ratio] 52.6 fl High 35.1-43.[address] [facility] Hematocrit Auto (Bld) [Volum e fraction]Ordered By: Frandyhollywoodingris Miramontes on 04-13-2024 Hematocrit (Bld) [Volume fraction] 47.5 % 40-[address] [facility] Hemoglobin measurementOrdere d By: [facility] on 04-13-2024 Hemoglobin (Bld) [Mass/Vol] 15.1 g/dL 13.0-16.[address] [facility] Immature granulocytes/100 WB C Auto (Bld)Ordered By: danay Miramontes on 04-13-2024 Immature granulocytes/100 WBC (Bld) 0.300 % 0.0-0.[address] [facility] Comment on above: IG% - Immature Granu locytes (promyelocytes, myelocytes and metamyelocytes) > 1% indicates that a LEFT SHIFT is Present. Lymphocytes Auto (Unsp spec) [#/Vol]Ordered By: David Miramontes on 04-13-2024 Lymphocytes (Bld) [#/Vol] 0.98 10*3/uL 0.83-4.[address] [facility] Lymphocytes/100 WBC Auto (Un sp spec)Ordered By: David Miramontes on 04-13-2024 Lymphocytes/100 WBC (Bld) 11.0 % Low 19-[address] [facility] MCV (mean corpuscular volume ) determinationOrdered By: David Miramontes on 04-13-2024 MCV (RBC) [Entitic vol] 98.3 fL High 80-94 [facility] Mean corpuscular hemoglobin (MCH) determinationOrdered By: David Miramontes on 04-13-2024 MCH (RBC) [Entitic mass] 31.3 pg 27.0-32.[address] [facility] Mean corpuscular hemoglobin concentration (MCHC) determinationOrdered By: David Miramontes on 04-13-2024 MCHC (RBC) [Mass/Vol] 31.8 g/dL Low 32-36 [facility] Mean platelet volume determi nationOrdered By: David Miramontes on 04-13-2024 Platelet mean volume (Bld) [Entitic vol] 12.2 fL High 6.2-12.[address] [facility] Monocyte percentageOrdered B y: David Miramontes on 04-13-2024 Monocytes/100 WBC (Bld) 9.3 % 0-10 [facility] Neutrophil percentageOrdered By: David Miramontes on 04-13-2024 Neutrophils/100 WBC (Bld) 78.0 % High 47-[address] [facility] Nucleated red blood cell per centageOrdered By: David Miramontes on 04-13-2024 Nucleated RBC/100 WBC (Bld) [Ratio] 0 % 0-[address] [facility] Platelet countOrdered By: Mayra Miramontes on 04-13-2024 Platelets (Bld) [#/Vol] 160 10*3/uL 150-[address] [facility] RBC Auto (Bld) [#/Vol]Ordere d By: David Miramontes on 04-13-2024 RBC (Bld) [#/Vol] 4.83 10*6/uL 4.6-6.2 [facility] Serum or plasma uric acid me asurement (mass/volume)Ordered By: David Miramontes on 04-13-2024 Urate [Mass/Vol] 7.3 mg/dL High 3.5-7.[address] [facility] Comment on above: The drugs N-Acetylcy steine and Metamizole may falsely depress this assay. White blood cell (WBC) count Ordered By: David Miramontes on 04-13-2024 WBC (Bld) [#/Vol] 8.9 10*3/uL 4.4-11.0 [facility] Bilirubin Test strip Ql (U)O rdered By: David Miramontes on 04-07-2024 Bilirubin Ql (U) Negative Negative [facility] Blood urea nitrogen (BUN)/cr eatinine ratioOrdered By: David Miramontes on 04-07-2024 Urea nitrogen/Creatinine [Mass ratio] 15.7 mg/mg 10-[address] [facility] Carbon dioxide measurementOr dered By: David Miramontes on 04-07-2024 CO2 [Moles/Vol] 27.0 mmol/L 21.0-32.[address] [facility] Chloride measurementOrdered By: David Miramontes on 04-07-2024 Chloride [Moles/Vol] 107 mmol/L 98-107 [facility] Estimated glomerular filtrat ion rate (GFR) AmericanOrdered By: David Miramontes on 04-07-2024 Estimated GFR (MDRD) Amer 69 mL/min >[address] [facility] Comment on above: GFR Calc Glomerular filtration rate ( GFR) estimationOrdered By: David Miramontes on 04-07-2024 Estimated GFR (MDRD) Non-Af Amer 57 mL/min Low >[address] [facility] Comment on above: Non- GFR Calc GFR/1.73 sq M.predicted among non-blacks MDRD (S/P/Bld) [Vol rate/Area] 57 mL/min/{1.73_m2} Low >[address] [facility] Comment on above: Non- GFR Calc Glucose Ql (U)Ordered By: Mayra Miramontes on 04-07-2024 Urine Glucose (UA) Normal mg/dl Normal [facility] Glucose measurementOrdered B y: David Miramontes on 04-07-2024 Glucose [Mass/Vol] 80 mg/dL 74-106 [facility] Ketones Test strip Ql (U)Ord ered By: David Miramontes on 04-07-2024 Ketones Ql (U) Negative Negative [facility] Nitrite Test strip Ql (U)Ord ered By: David Miramontes on 04-07-2024 Nitrite Ql (U) Negative Negative [facility] Potassium measurementOrdered By: David Miramontes on 04-07-2024 Potassium [Moles/Vol] 3.8 mmol/L 3.5-5.1 [facility] Comment on above: Slight Hemolysis, Re sult may be falsely increased. Protein Test strip Ql (U)Ord ered By: David Miramontes on 04-07-2024 Protein Ql (U) 30 mg/dl High Negative [facility] Serum anion gap measurementO rdered By: David Miramontes on 04-07-2024 Anion gap [Moles/Vol] 9 mmol/L 5-15 [facility] Serum or plasma calcium siobhan urement (mass/volume)Ordered By: David Miramontes on 04-07-2024 Calcium [Mass/Vol] 8.9 mg/dL 8.5-10.1 [facility] Serum or plasma creatinine m easurement (mass/volume)Ordered By: David Miramontes on 04-07-2024 Creatinine [Mass/Vol] 1.27 mg/dL 0.70-1.30 [facility] Comment on above: The validity of the calculated GFR & GFRAA in patients over 70 years has not been determined. Clinical correlation is essential. Serum or plasma urea nitroge n measurement (mass/volume)Ordered By: David Miramontes on 04-07-2024 Urea nitrogen [Mass/Vol] 20 mg/dL High 7-[address] [facility] Serum or plasma uric acid me asurement (mass/volume)Ordered By: aDvid Miramontes on 04-07-2024 Urate [Mass/Vol] 7.7 mg/dL High 3.5-7.[address] [facility] Comment on above: The drugs N-Acetylcy steine and Metamizole may falsely depress this assay. Sodium levelOrdered By: Frandy Miramontes on 04-07-2024 Sodium [Moles/Vol] 143 mmol/L 136-145 [facility] Urine blood detectionOrdered By: David Miramontes on 04-07-2024 Urine Occult Blood 250 /ul High Negative [facility] Urine clarityOrdered By: Lg Miramontes on 04-07-2024 Clarity (U) Clear Clear [facility] Urine color determinationOrd ered By: David Miramontes on 04-07-2024 Color (U) Straw Yellow [facility] Urine cultureOrdered By: Lg Miramontes on 04-07-2024 Bacteria identified Cx Nom (U) Negative Abnormal [facility] Urine glucose detectionOrder ed By: David Miramontes on 04-07-2024 Glucose Ql (U) Normal mg/dl Normal [facility] Urine leukocyte esterase det ection by dipstickOrdered By: David Miramontes on 04-07-2024 Leukocyte esterase Test strip Ql (U) 25 /ul High Negative [facility] Urine pHOrdered By: Leo Miramontes on 04-07-2024 pH (U) 6.5 [pH] 5.0 - 8.[address] [facility] Urine specific gravity measu rementOrdered By: David Miramontes on 04-07-2024 Specific gravity (U) [Rel density] 1.005 1.002-1.[address] [facility] Urine urobilinogen measureme ntOrdered By: David Miramontes on 04-07-2024 Urobilinogen Ql (U) Normal mg/dl Normal [facility] Urobilinogen Ql (U)Ordered B y: David Miramontes on 04-07-2024 Urine Urobilinogen Normal mg/dl Normal [facility] Absolute lymphocyte countOrd ered By: David Miramontes on 04-04-2024 Lymphocytes Auto (Unsp spec) [#/Vol] 0.82 10*3/uL Low 0.83-4.[address] [facility] Absolute neutrophil countOrd ered By: David Miramontes on 04-04-2024 Neutrophils (Bld) [#/Vol] 11.6 10*3/uL High 2.0-7.[address] [facility] Automated lymphocyte count a s percentage of total leukocytesOrdered By: David Miramontes on 04-04-2024 Lymphocytes/100 WBC Auto (Unsp spec) 5.9 % Low 19-[address] [facility] Basophil percentageOrdered B y: David Miramontes on 04-04-2024 Basophils/100 WBC (Bld) 0.2 % 0-1 [facility] Blood urea nitrogen (BUN)/cr eatinine ratioOrdered By: David Miramontes on 04-04-2024 Urea nitrogen/Creatinine [Mass ratio] 9.6 mg/mg Low 10-[address] [facility] Carbon dioxide measurementOr dered By: David Miramontes on 04-04-2024 CO2 [Moles/Vol] 26.0 mmol/L 21.0-32.[address] [facility] Chloride measurementOrdered By: waynehollywoodingris Miramontes on 04-04-2024 Chloride [Moles/Vol] 105 mmol/L 98-107 [facility] Eosinophil percentageOrdered By: David Miramontes on 04-04-2024 Eosinophils/100 WBC (Bld) 0.0 % 0-[address] [facility] Erythrocyte distribution wid th (RBC) [Ratio]Ordered By: David Miramontes on 04-04-2024 Erythrocyte distribution width (RBC) [Entitic vol] 55.2 fL High 35.1-43.[address] [facility] Erythrocyte distribution wid th ratioOrdered By: David Miramontes on 04-04-2024 Erythrocyte distribution width (RBC) [Ratio] 15.2 % High 11.6-14.[address] [facility] Erythrocyte distribution wid th standard deviationOrdered By: danay Miramontes on 04-04-2024 Erythrocyte distribution width (RBC) [Ratio] 55.2 fl High 35.1-43.[address] [facility] Estimated glomerular filtrat ion rate (GFR) AmericanOrdered By: David Miramontes on 04-04-2024 Estimated GFR (MDRD) Amer 47 mL/min Low >[address] [facility] Comment on above: GFR Calc Glomerular filtration rate ( GFR) estimationOrdered By: David Miramontes on 04-04-2024 Estimated GFR (MDRD) Non-Af Amer 39 mL/min Low >[address] [facility] Comment on above: Non- GFR Calc GFR/1.73 sq M.predicted among non-blacks MDRD (S/P/Bld) [Vol rate/Area] 39 mL/min/{1.73_m2} Low >[address] [facility] Comment on above: Non- GFR Calc Glucose measurementOrdered B y: David Miramontes on 04-04-2024 Glucose [Mass/Vol] 119 mg/dL High 74-106 [facility] Comment on above: Fasting Glucose resu lt from 100 to 125 mg/dL suggests IMPAIRED HOMEOSTASIS per A.D.A. criteria. Hematocrit Auto (Bld) [Volum e fraction]Ordered By: David Miramontes on 04-04-2024 Hematocrit (Bld) [Volume fraction] 49.2 % 40-[address] [facility] Hemoglobin measurementOrdere d By: David Miramontes on 04-04-2024 Hemoglobin (Bld) [Mass/Vol] 15.9 g/dL 13.0-16.[address] [facility] Immature granulocytes/100 WB C Auto (Bld)Ordered By: David Miramontes on 04-04-2024 Immature granulocytes/100 WBC (Bld) 0.500 % 0.0-0.[address] [facility] Comment on above: IG% - Immature Granu locytes (promyelocytes, myelocytes and metamyelocytes) > 1% indicates that a LEFT SHIFT is Present. Lymphocytes Auto (Unsp spec) [#/Vol]Ordered By: David Miramontes on 04-04-2024 Lymphocytes (Bld) [#/Vol] 0.82 10*3/uL Low 0.83-4.[address] [facility] Lymphocytes/100 WBC Auto (Un sp spec)Ordered By: David Miramontes on 04-04-2024 Lymphocytes/100 WBC (Bld) 5.9 % Low 19-[address] [facility] MCV (mean corpuscular volume ) determinationOrdered By: David Miramontes on 04-04-2024 MCV (RBC) [Entitic vol] 98.4 fL High 80-94 [facility] Mean corpuscular hemoglobin (MCH) determinationOrdered By: David Miramontes on 04-04-2024 MCH (RBC) [Entitic mass] 31.8 pg 27.0-32.[address] [facility] Mean corpuscular hemoglobin concentration (MCHC) determinationOrdered By: David Miramontes on 04-04-2024 MCHC (RBC) [Mass/Vol] 32.3 g/dL 32-36 [facility] Mean platelet volume determi nationOrdered By: David Miramontes on 04-04-2024 Platelet mean volume (Bld) [Entitic vol] 12.5 fL High 6.2-12.[address] [facility] Monocyte percentageOrdered B y: David Miramontes on 04-04-2024 Monocytes/100 WBC (Bld) 9.9 % 0-10 [facility] Neutrophil percentageOrdered By: David Miramontes on 04-04-2024 Neutrophils/100 WBC (Bld) 83.5 % High 47-[address] [facility] Nucleated red blood cell per centageOrdered By: David Miramontes on 04-04-2024 Nucleated RBC/100 WBC (Bld) [Ratio] 0 % 0-[address] [facility] Platelet countOrdered By: Mayra Miramontes on 04-04-2024 Platelets (Bld) [#/Vol] 209 10*3/uL 150-[address] [facility] Potassium measurementOrdered By: David Miramontes on 04-04-2024 Potassium [Moles/Vol] 4.2 mmol/L 3.5-5.1 [facility] Comment on above: Slight Hemolysis, Re sult may be falsely increased. RBC Auto (Bld) [#/Vol]Ordere d By: David Miramontes on 04-04-2024 RBC (Bld) [#/Vol] 5.00 10*6/uL 4.6-6.2 [facility] Serum anion gap measurementO rdered By: David Miramontes on 04-04-2024 Anion gap [Moles/Vol] 8 mmol/L 5-15 [facility] Serum or plasma calcium siobhan urement (mass/volume)Ordered By: David Miramontes on 04-04-2024 Calcium [Mass/Vol] 9.6 mg/dL 8.5-10.1 [facility] Serum or plasma creatinine m easurement (mass/volume)Ordered By: David Miramontes on 04-04-2024 Creatinine [Mass/Vol] 1.77 mg/dL High 0.70-1.30 [facility] Comment on above: The validity of the calculated GFR & GFRAA in patients over 70 years has not been determined. Clinical correlation is essential. Serum or plasma urea nitroge n measurement (mass/volume)Ordered By: danay Miramontes on 04-04-2024 Urea nitrogen [Mass/Vol] 17 mg/dL 7-[address] [facility] Sodium levelOrdered By: Frandy carleen Kulwinder on 04-04-2024 Sodium [Moles/Vol] 139 mmol/L 136-145 [facility] White blood cell (WBC) count Ordered By: David Miramontes on 04-04-2024 WBC (Bld) [#/Vol] 13.9 10*3/uL High 4.4-11.0 [facility] Absolute lymphocyte countOrd ered By: David Miramontes on 04-06-2023 Lymphocytes Auto (Unsp spec) [#/Vol] 1.24 10*3/uL 0.83-4.[address] [facility] Automated lymphocyte count a s percentage of total leukocytesOrdered By: David Miramontes on 04-06-2023 Lymphocytes/100 WBC Auto (Unsp spec) 18.7 % 19-[address] [facility] Basophil percentageOrdered B y: David Miramontes on 04-06-2023 Basophils/100 WBC (Bld) 0.5 % 0-1 [facility] Chloride [Moles/Vol] 109 mmol/L 98-107 [facility] Eosinophils/100 WBC (Bld) 1.7 % 0-[address] [facility] Glucose [Mass/Vol] 90 mg/dL 74-106 [facility] Hemoglobin (Bld) [Mass/Vol] 15.4 g/dL 13.0-16.[address] [facility] Monocytes/100 WBC (Bld) 9.4 % 0-10 [facility] Neutrophils (Bld) [#/Vol] 4.6 10*3/uL 2.0-7.[address] [facility] Neutrophils/100 WBC (Bld) 69.2 % 47-[address] [facility] Potassium [Moles/Vol] 3.7 mmol/L 3.5-5.1 [facility] Sodium [Moles/Vol] 141 mmol/L 136-145 [facility] WBC (Bld) [#/Vol] 6.6 10*3/uL 4.4-11.0 [facility] Determination of erythrocyte mean corpuscular volume (MCV)Ordered By: David Miramontes on 04-06-2023 MCV (RBC) [Entitic vol] 98.2 fL 80-94 [facility] Erythrocyte distribution wid th ratioOrdered By: Frandyhollywoodingris Miramontes on 04-06-2023 Erythrocyte distribution width (RBC) [Ratio] 14.4 % 11.6-14.[address] [facility] Erythrocyte distribution wid th standard deviationOrdered By: Frandyhollywoodingris Miramontes on 04-06-2023 Erythrocyte distribution width (RBC) [Entitic vol] 51.7 fL 35.1-43.[address] [facility] Hematocrit Auto (Bld) [Volum e fraction]Ordered By: David Miramontes on 04-06-2023 Hematocrit (Bld) [Volume fraction] 49.2 % 40-[address] [facility] Immature granulocytes/100 WB C Auto (Bld)Ordered By: David Miramontes on 04-06-2023 Immature granulocytes/100 WBC (Bld) 0.500 % 0.0-0.[address] [facility] Comment on above: IG% - Immature Granu locytes (promyelocytes, myelocytes and metamyelocytes) > 1% indicates that a LEFT SHIFT is Present. Laboratory - Chemistry and C hemistry - challengeOrdered By: David Miramontes on 04-06-2023 CO2 [Moles/Vol] 27.0 mmol/L 21.0-32.[address] [facility] Urea nitrogen/Creatinine [Mass ratio] 15.0 mg/mg 10-[address] [facility] Laboratory - Hematology and Cell countsOrdered By: David Miramontes on 04-06-2023 MCH (RBC) [Entitic mass] 30.7 pg 27.0-32.[address] [facility] MCHC (RBC) [Mass/Vol] 31.3 g/dL 32-36 [facility] Nucleated RBC/100 WBC (Bld) [Ratio] 0 % 0-[address] [facility] Platelet mean volume (Bld) [Entitic vol] 11.5 fL 6.2-12.[address] [facility] Platelets (Bld) [#/Vol] 189 10*3/uL 150-[address] [facility] No Panel InformationOrdered By: David Miramontes on 04-06-2023 Estimated GFR (MDRD) Amer 85 mL/min >[address] [facility] Comment on above: GFR Calc Estimated GFR (MDRD) Non-Af Amer 70 mL/min >[address] [facility] Comment on above: Non- GFR Calc RBC Auto (Bld) [#/Vol]Ordere d By: David Miramontes on 04-06-2023 RBC (Bld) [#/Vol] 5.01 10*6/uL 4.6-6.2 [facility] Serum or plasma calcium siobhan urement (mass/volume)Ordered By: David Miramontes on 04-06-2023 Calcium [Mass/Vol] 9.1 mg/dL 8.5-10.1 [facility] Serum or plasma creatinine m easurement (mass/volume)Ordered By: David Miramontes on 04-06-2023 Creatinine [Mass/Vol] 1.07 mg/dL 0.70-1.30 [facility] Comment on above: The validity of the calculated GFR & GFRAA in patients over 70 years has not been determined. Clinical correlation is essential. Serum or plasma urea nitroge n measurement (mass/volume)Ordered By: David Miramontes on 04-06-2023 Urea nitrogen [Mass/Vol] 16 mg/dL 7-[address] [facility] Thin prep Papanicolaou smear with manual screeningOrdered By: David Miramontes on 04-06-2023 Thin prep Papanicolaou smear with manual screening 5 5-[address] [facility] Absolute lymphocyte countOrd ered By: David Miramontes on 12-30-2022 Lymphocytes Auto (Unsp spec) [#/Vol] 1.16 10*3/uL 0.83-4.[address] [facility] Basophil percentageOrdered B y: David Miramontes on 12-30-2022 Basophils/100 WBC (Bld) 0.4 % 0-1 [facility] Chloride [Moles/Vol] 109 mmol/L 98-107 [facility] Eosinophils/100 WBC (Bld) 1.3 % 0-[address] [facility] Glucose [Mass/Vol] 84 mg/dL 74-106 [facility] Neutrophils (Bld) [#/Vol] 5.4 10*3/uL 2.0-7.[address] [facility] Neutrophils/100 WBC (Bld) 72.7 % 47-[address] [facility] Potassium [Moles/Vol] 3.6 mmol/L 3.5-5.1 [facility] Sodium [Moles/Vol] 142 mmol/L 136-145 [facility] WBC (Bld) [#/Vol] 7.4 10*3/uL 4.4-11.0 [facility] Blood erythrocytes count (nu mber/volume)Ordered By: David Miramontes on 12-30-2022 RBC (Bld) [#/Vol] 4.15 10*6/uL 4.6-6.2 [facility] Blood hemoglobin measurement (mass/volume)Ordered By: David Miramontes on 12-30-2022 Hemoglobin (Bld) [Mass/Vol] 13.0 g/dL 13.0-16.[address] [facility] Blood lymphocytes/100 leukoc ytesOrdered By: David Miramontes on 12-30-2022 Lymphocytes/100 WBC (Bld) 15.6 % 19-[address] [facility] Blood monocytes/100 leukocyt esOrdered By: David Miramontes on 12-30-2022 Monocytes/100 WBC (Bld) 9.6 % 0-10 [facility] Blood platelet mean volumeOr dered By: David Miramontes on 12-30-2022 Platelet mean volume (Bld) [Entitic vol] 11.6 fL 6.2-12.[address] [facility] Determination of erythrocyte mean corpuscular volume (MCV)Ordered By: David Miramontes on 12-30-2022 MCV (RBC) [Entitic vol] 99.5 fL 80-94 [facility] Hematocrit Auto (Bld) [Volum e fraction]Ordered By: David Miramontes on 12-30-2022 Hematocrit (Bld) [Volume fraction] 41.3 % 40-[address] [facility] Laboratory - Chemistry and C hemistry - challengeOrdered By: David Miramontes on 12-30-2022 CO2 [Moles/Vol] 27.0 mmol/L 21.0-32.[address] [facility] Urea nitrogen/Creatinine [Mass ratio] 11.6 mg/mg 10-[address] [facility] Laboratory - Hematology and Cell countsOrdered By: David Miramontes on 12-30-2022 Erythrocyte distribution width (RBC) [Entitic vol] 51.5 fL 35.1-43.[address] [facility] Erythrocyte distribution width (RBC) [Ratio] 14.2 % 11.6-14.[address] [facility] Immature granulocytes/100 WBC (Bld) 0.400 % 0.0-0.[address] [facility] Comment on above: IG% - Immature Granu locytes (promyelocytes, myelocytes and metamyelocytes) > 1% indicates that a LEFT SHIFT is Present. MCH (RBC) [Entitic mass] 31.3 pg 27.0-32.[address] [facility] Nucleated RBC/100 WBC (Bld) [Ratio] 0 % 0-[address] [facility] MCHC Auto (RBC) [Mass/Vol]Or dered By: David Miramontes on 12-30-2022 MCHC (RBC) [Mass/Vol] 31.5 g/dL 32-36 [facility] No Panel InformationOrdered By: David Miramontes on 12-30-2022 Estimated GFR (MDRD) Amer 108 mL/min >[address] [facility] Comment on above: GFR Calc Estimated GFR (MDRD) Non-Af Amer 90 mL/min >[address] [facility] Comment on above: Non- GFR Calc Platelets bldOrdered By: Lg james Kulwinder on 12-30-2022 Platelets (Bld) [#/Vol] 165 10*3/uL 150-[address] [facility] Serum or plasma calcium siobhan urement (mass/volume)Ordered By: David Miramontes on 12-30-2022 Calcium [Mass/Vol] 8.3 mg/dL 8.5-10.1 [facility] Serum or plasma creatinine m easurement (mass/volume)Ordered By: David Miramontes on 12-30-2022 Creatinine [Mass/Vol] 0.86 mg/dL 0.70-1.30 [facility] Comment on above: The validity of the calculated GFR & GFRAA in patients over 70 years has not been determined. Clinical correlation is essential. Serum or plasma urea nitroge n measurement (mass/volume)Ordered By: David Miramontes on 12-30-2022 Urea nitrogen [Mass/Vol] 10 mg/dL 7-[address] [facility] Thin prep Papanicolaou smear with manual screeningOrdered By: danay Miramontes on 12-30-2022 Thin prep Papanicolaou smear with manual screening 6 5-[address] [facility] Absolute lymphocyte countOrd ered By: David Miramontes on 09-29-2022 Lymphocytes Auto (Unsp spec) [#/Vol] 1.19 10*3/uL 0.83-4.[address] [facility] Basophil percentageOrdered B y: David Miramontes on 09-29-2022 Basophils/100 WBC (Bld) 0.2 % 0-1 [facility] Chloride [Moles/Vol] 109 mmol/L 98-107 [facility] Eosinophils/100 WBC (Bld) 0.1 % 0-[address] [facility] Glucose [Mass/Vol] 100 mg/dL 74-106 [facility] Comment on above: Fasting Glucose resu lt from 100 to 125 mg/dL suggests IMPAIRED HOMEOSTASIS per A.D.A. criteria. Neutrophils (Bld) [#/Vol] 8.4 10*3/uL 2.0-7.[address] [facility] Neutrophils/100 WBC (Bld) 80.3 % 47-[address] [facility] Potassium [Moles/Vol] 4.0 mmol/L 3.5-5.1 [facility] Sodium [Moles/Vol] 141 mmol/L 136-145 [facility] WBC (Bld) [#/Vol] 10.4 10*3/uL 4.4-11.0 [facility] Blood erythrocytes count (nu mber/volume)Ordered By: David Miramontes on 09-29-2022 RBC (Bld) [#/Vol] 4.62 10*6/uL 4.6-6.2 [facility] Blood hemoglobin measurement (mass/volume)Ordered By: David Miramontes on 09-29-2022 Hemoglobin (Bld) [Mass/Vol] 14.6 g/dL 13.0-16.[address] [facility] Blood lymphocytes/100 leukoc ytesOrdered By: David Miramontes on 09-29-2022 Lymphocytes/100 WBC (Bld) 11.5 % 19-[address] [facility] Blood monocytes/100 leukocyt esOrdered By: David Miramontes on 09-29-2022 Monocytes/100 WBC (Bld) 7.3 % 0-10 [facility] Blood platelet mean volumeOr dered By: David Miramontes on 09-29-2022 Platelet mean volume (Bld) [Entitic vol] 11.5 fL 6.2-12.[address] [facility] Determination of erythrocyte mean corpuscular volume (MCV)Ordered By: David Miramontes on 09-29-2022 MCV (RBC) [Entitic vol] 99.4 fL 80-94 [facility] Hematocrit Auto (Bld) [Volum e fraction]Ordered By: David Miramontes on 09-29-2022 Hematocrit (Bld) [Volume fraction] 45.9 % 40-[address] [facility] Laboratory - Chemistry and C hemistry - challengeOrdered By: David Miramontes on 09-29-2022 CO2 [Moles/Vol] 28.0 mmol/L 21.0-32.[address] [facility] Urea nitrogen/Creatinine [Mass ratio] 13.8 mg/mg 10-[address] [facility] Laboratory - Hematology and Cell countsOrdered By: David Miramontes on 09-29-2022 Erythrocyte distribution width (RBC) [Entitic vol] 51.7 fL 35.1-43.[address] [facility] Erythrocyte distribution width (RBC) [Ratio] 14.2 % 11.6-14.[address] [facility] Immature granulocytes/100 WBC (Bld) 0.600 % 0.0-0.[address] [facility] Comment on above: IG% - Immature Granu locytes (promyelocytes, myelocytes and metamyelocytes) > 1% indicates that a LEFT SHIFT is Present. MCH (RBC) [Entitic mass] 31.6 pg 27.0-32.[address] [facility] Nucleated RBC/100 WBC (Bld) [Ratio] 0 % 0-[address] [facility] MCHC Auto (RBC) [Mass/Vol]Or dered By: David Miramontes on 09-29-2022 MCHC (RBC) [Mass/Vol] 31.8 g/dL 32-36 [facility] No Panel InformationOrdered By: David Miramontes on 09-29-2022 Estimated GFR (MDRD) Amer 98 mL/min >[address] [facility] Comment on above: GFR Calc Estimated GFR (MDRD) Non-Af Amer 81 mL/min >[address] [facility] Comment on above: Non- GFR Calc Platelets bldOrdered By: Lg Miramontes on 09-29-2022 Platelets (Bld) [#/Vol] 185 10*3/uL 150-[address] [facility] Serum or plasma calcium siobhan urement (mass/volume)Ordered By: David Miramontes on 09-29-2022 Calcium [Mass/Vol] 8.9 mg/dL 8.5-10.1 [facility] Serum or plasma creatinine m easurement (mass/volume)Ordered By: David Miramontes on 09-29-2022 Creatinine [Mass/Vol] 0.94 mg/dL 0.70-1.30 [facility] Comment on above: The validity of the calculated GFR & GFRAA in patients over 70 years has not been determined. Clinical correlation is essential. Serum or plasma urea nitroge n measurement (mass/volume)Ordered By: David Miramontes on 09-29-2022 Urea nitrogen [Mass/Vol] 13 mg/dL 7-[address] [facility] Thin prep Papanicolaou smear with manual screeningOrdered By: David Miramontes on 09-29-2022 Thin prep Papanicolaou smear with manual screening 4 5-[address] [facility] Absolute lymphocyte countOrd ered By: David Miramontes on 06-29-2022 Lymphocytes Auto (Unsp spec) [#/Vol] 1.43 10*3/uL 0.83-4.[address] [facility] Basophil percentageOrdered B y: David Miramontes on 06-29-2022 Basophils/100 WBC (Bld) 0.6 % 0-1 [facility] Chloride [Moles/Vol] 107 mmol/L 98-107 [facility] Eosinophils/100 WBC (Bld) 1.5 % 0-[address] [facility] Glucose [Mass/Vol] 85 mg/dL 74-106 [facility] Neutrophils (Bld) [#/Vol] 4.4 10*3/uL 2.0-7.[address] [facility] Neutrophils/100 WBC (Bld) 65.4 % 47-[address] [facility] Potassium [Moles/Vol] 3.6 mmol/L 3.5-5.1 [facility] Sodium [Moles/Vol] 140 mmol/L 136-145 [facility] WBC (Bld) [#/Vol] 6.7 10*3/uL 4.4-11.0 [facility] Blood erythrocytes count (nu mber/volume)Ordered By: David Miramontes on 06-29-2022 RBC (Bld) [#/Vol] 4.55 10*6/uL 4.6-6.2 [facility] Blood hemoglobin measurement (mass/volume)Ordered By: David Miramontes on 06-29-2022 Hemoglobin (Bld) [Mass/Vol] 14.5 g/dL 13.0-16.[address] [facility] Blood lymphocytes/100 leukoc ytesOrdered By: David Miramontes on 06-29-2022 Lymphocytes/100 WBC (Bld) 21.5 % 19-[address] [facility] Blood monocytes/100 leukocyt esOrdered By: David Miramontes on 06-29-2022 Monocytes/100 WBC (Bld) 10.7 % 0-10 [facility] Blood platelet mean volumeOr dered By: David Miramontes on 06-29-2022 Platelet mean volume (Bld) [Entitic vol] 11.2 fL 6.2-12.[address] [facility] Determination of erythrocyte mean corpuscular volume (MCV)Ordered By: David Miramontes on 06-29-2022 MCV (RBC) [Entitic vol] 98.9 fL 80-94 [facility] Hematocrit Auto (Bld) [Volum e fraction]Ordered By: David Miramontes on 06-29-2022 Hematocrit (Bld) [Volume fraction] 45.0 % 40-[address] [facility] Laboratory - Chemistry and C hemistry - challengeOrdered By: waynehollywoodingris Miramontes on 06-29-2022 CO2 [Moles/Vol] 30.0 mmol/L 21.0-32.[address] [facility] Urea nitrogen/Creatinine [Mass ratio] 13.6 mg/mg 10-[address] [facility] Laboratory - Hematology and Cell countsOrdered By: David Miramontes on 06-29-2022 Erythrocyte distribution width (RBC) [Entitic vol] 51.6 fL 35.1-43.[address] [facility] Erythrocyte distribution width (RBC) [Ratio] 14.3 % 11.6-14.[address] [facility] Immature granulocytes/100 WBC (Bld) 0.300 % 0.0-0.[address] [facility] Comment on above: IG% - Immature Granu locytes (promyelocytes, myelocytes and metamyelocytes) > 1% indicates that a LEFT SHIFT is Present. MCH (RBC) [Entitic mass] 31.9 pg 27.0-32.[address] [facility] Nucleated RBC/100 WBC (Bld) [Ratio] 0 % 0-[address] [facility] MCHC Auto (RBC) [Mass/Vol]Or dered By: danay Miramontes on 06-29-2022 MCHC (RBC) [Mass/Vol] 32.2 g/dL 32-36 [facility] No Panel InformationOrdered By: David Miramontes on 06-29-2022 Estimated GFR (MDRD) Amer 89 mL/min >[address] [facility] Comment on above: GFR Calc Estimated GFR (MDRD) Non-Af Amer 73 mL/min >[address] [facility] Comment on above: Non- GFR Calc Platelets bldOrdered By: Lg Miramontes on 06-29-2022 Platelets (Bld) [#/Vol] 161 10*3/uL 150-[address] [facility] Serum or plasma calcium siobhan urement (mass/volume)Ordered By: David Miramontes on 06-29-2022 Calcium [Mass/Vol] 8.7 mg/dL 8.5-10.1 [facility] Serum or plasma creatinine m easurement (mass/volume)Ordered By: David Miramontes on 06-29-2022 Creatinine [Mass/Vol] 1.03 mg/dL 0.70-1.30 [facility] Comment on above: The validity of the calculated GFR & GFRAA in patients over 70 years has not been determined. Clinical correlation is essential. Serum or plasma urea nitroge n measurement (mass/volume)Ordered By: David Miramontes on 06-29-2022 Urea nitrogen [Mass/Vol] 14 mg/dL 7-[address] [facility] Thin prep Papanicolaou smear with manual screeningOrdered By: David Miramontes on 06-29-2022 Thin prep Papanicolaou smear with manual screening 3 5-[address] [facility] Absolute lymphocyte countOrd ered By: David Miramontes on 04-01-2022 Lymphocytes Auto (Unsp spec) [#/Vol] 1.25 10*3/uL 0.83-4.[address] [facility] Basophil percentageOrdered B y: David Miramontes on 04-01-2022 Basophils/100 WBC (Bld) 0.4 % 0-1 [facility] Chloride [Moles/Vol] 108 mmol/L 98-107 [facility] Eosinophils/100 WBC (Bld) 1.5 % 0-[address] [facility] Glucose [Mass/Vol] 106 mg/dL 74-106 [facility] Comment on above: Fasting Glucose resu lt from 100 to 125 mg/dL suggests IMPAIRED HOMEOSTASIS per A.D.A. criteria. Neutrophils (Bld) [#/Vol] 4.7 10*3/uL 2.0-7.[address] [facility] Neutrophils/100 WBC (Bld) 69.1 % 47-[address] [facility] Potassium [Moles/Vol] 3.6 mmol/L 3.5-5.1 [facility] Sodium [Moles/Vol] 143 mmol/L 136-145 [facility] WBC (Bld) [#/Vol] 6.8 10*3/uL 4.4-11.0 [facility] Blood erythrocytes count (nu mber/volume)Ordered By: David Miramontes on 04-01-2022 RBC (Bld) [#/Vol] 4.69 10*6/uL 4.6-6.2 [facility] Blood hemoglobin measurement (mass/volume)Ordered By: David Miramontes on 04-01-2022 Hemoglobin (Bld) [Mass/Vol] 14.8 g/dL 13.0-16.[address] [facility] Blood lymphocytes/100 leukoc ytesOrdered By: David Miramontes on 04-01-2022 Lymphocytes/100 WBC (Bld) 18.5 % 19-[address] [facility] Blood monocytes/100 leukocyt esOrdered By: David Miramontes on 04-01-2022 Monocytes/100 WBC (Bld) 10.2 % 0-10 [facility] Blood platelet mean volumeOr dered By: David Miramontes on 04-01-2022 Platelet mean volume (Bld) [Entitic vol] 11.5 fL 6.2-12.[address] [facility] Determination of erythrocyte mean corpuscular volume (MCV)Ordered By: David Miramontes on 04-01-2022 MCV (RBC) [Entitic vol] 97.0 fL 80-94 [facility] Hematocrit Auto (Bld) [Volum e fraction]Ordered By: David Miramontes on 04-01-2022 Hematocrit (Bld) [Volume fraction] 45.5 % 40-[address] [facility] Laboratory - Chemistry and C hemistry - challengeOrdered By: David Miramontes on 04-01-2022 CO2 [Moles/Vol] 29.0 mmol/L 21.0-32.[address] [facility] Urea nitrogen/Creatinine [Mass ratio] 13.0 mg/mg 10-[address] [facility] Laboratory - Hematology and Cell countsOrdered By: David Miramontes on 04-01-2022 Erythrocyte distribution width (RBC) [Entitic vol] 51.1 fL 35.1-43.[address] [facility] Erythrocyte distribution width (RBC) [Ratio] 14.4 % 11.6-14.[address] [facility] Immature granulocytes/100 WBC (Bld) 0.300 % 0.0-0.[address] [facility] Comment on above: IG% - Immature Granu locytes (promyelocytes, myelocytes and metamyelocytes) > 1% indicates that a LEFT SHIFT is Present. MCH (RBC) [Entitic mass] 31.6 pg 27.0-32.[address] [facility] Nucleated RBC/100 WBC (Bld) [Ratio] 0 % 0-[address] [facility] MCHC Auto (RBC) [Mass/Vol]Or dered By: David Miramontes on 04-01-2022 MCHC (RBC) [Mass/Vol] 32.5 g/dL 32-36 [facility] No Panel InformationOrdered By: David Miramontes on 04-01-2022 Estimated GFR (MDRD) Amer 92 mL/min >[address] [facility] Comment on above: GFR Calc Estimated GFR (MDRD) Non-Af Amer 76 mL/min >[address] [facility] Comment on above: Non- GFR Calc Platelets bldOrdered By: Lg Miramontes on 04-01-2022 Platelets (Bld) [#/Vol] 167 10*3/uL 150-[address] [facility] Serum or plasma calcium siobhan urement (mass/volume)Ordered By: David Miramontes on 04-01-2022 Calcium [Mass/Vol] 9.1 mg/dL 8.5-10.1 [facility] Serum or plasma creatinine m easurement (mass/volume)Ordered By: David Miramontes on 04-01-2022 Creatinine [Mass/Vol] 1.00 mg/dL 0.70-1.30 [facility] Comment on above: The validity of the calculated GFR & GFRAA in patients over 70 years has not been determined. Clinical correlation is essential. Serum or plasma urea nitroge n measurement (mass/volume)Ordered By: David Miramontes on 04-01-2022 Urea nitrogen [Mass/Vol] 13 mg/dL 7-[address] [facility] Thin prep Papanicolaou smear with manual screeningOrdered By: waynehollywoodingris Miramontes on 04-01-2022 Thin prep Papanicolaou smear with manual screening 6 5-[address] [facility] Absolute lymphocyte countOrd ered By: Jhonny Tomas on 01-07-2022 Lymphocytes Auto (Unsp spec) [#/Vol] 1.54 10*3/uL 0.83-4.[address] [facility] Basophil percentageOrdered B y: Jhonny Tomas on 01-07-2022 Basophils/100 WBC (Bld) 0.3 % 0-1 [facility] Chloride [Moles/Vol] 104 mmol/L 98-107 [facility] Eosinophils/100 WBC (Bld) 1.9 % 0-[address] [facility] Glucose [Mass/Vol] 89 mg/dL 74-106 [facility] Neutrophils (Bld) [#/Vol] 4.8 10*3/uL 2.0-7.[address] [facility] Neutrophils/100 WBC (Bld) 66.5 % 47-[address] [facility] Potassium [Moles/Vol] 4.1 mmol/L 3.5-5.1 [facility] Sodium [Moles/Vol] 141 mmol/L 136-145 [facility] WBC (Bld) [#/Vol] 7.2 10*3/uL 4.4-11.0 [facility] Blood erythrocytes count (nu mber/volume)Ordered By: Jhonny Tomas on 01-07-2022 RBC (Bld) [#/Vol] 4.80 10*6/uL 4.6-6.2 [facility] Blood hemoglobin measurement (mass/volume)Ordered By: Jhonny Tomas on 01-07-2022 Hemoglobin (Bld) [Mass/Vol] 15.2 g/dL 13.0-16.[address] [facility] Blood lymphocytes/100 leukoc ytesOrdered By: Jhonny Tomas on 01-07-2022 Lymphocytes/100 WBC (Bld) 21.3 % 19-[address] [facility] Blood monocytes/100 leukocyt esOrdered By: Jhonny Tomas on 01-07-2022 Monocytes/100 WBC (Bld) 9.7 % 0-10 [facility] Blood platelet mean volumeOr dered By: Jhonny Tomas on 01-07-2022 Platelet mean volume (Bld) [Entitic vol] 11.2 fL 6.2-12.[address] [facility] Determination of erythrocyte mean corpuscular volume (MCV)Ordered By: Jhonny Tomas on 01-07-2022 MCV (RBC) [Entitic vol] 97.3 fL 80-94 [facility] Hematocrit Auto (Bld) [Volum e fraction]Ordered By: Jhonny Tomas on 01-07-2022 Hematocrit (Bld) [Volume fraction] 46.7 % 40-[address] [facility] Laboratory - Chemistry and C hemistry - challengeOrdered By: Jhonny Tomas on 01-07-2022 CO2 [Moles/Vol] 29.0 mmol/L 21.0-32.[address] [facility] Urea nitrogen/Creatinine [Mass ratio] 11.4 mg/mg 10-[address] [facility] Laboratory - Hematology and Cell countsOrdered By: Jhonny Tomas on 01-07-2022 Erythrocyte distribution width (RBC) [Entitic vol] 52.0 fL 35.1-43.[address] [facility] Erythrocyte distribution width (RBC) [Ratio] 14.5 % 11.6-14.[address] [facility] Immature granulocytes/100 WBC (Bld) 0.300 % 0.0-0.[address] [facility] Comment on above: IG% - Immature Granu locytes (promyelocytes, myelocytes and metamyelocytes) > 1% indicates that a LEFT SHIFT is Present. MCH (RBC) [Entitic mass] 31.7 pg 27.0-32.[address] [facility] Nucleated RBC/100 WBC (Bld) [Ratio] 0 % 0-[address] [facility] MCHC Auto (RBC) [Mass/Vol]Or dered By: Jhonny Tomas on 01-07-2022 MCHC (RBC) [Mass/Vol] 32.5 g/dL 32-36 [facility] No Panel InformationOrdered By: Jhonny Tomas on 01-07-2022 Estimated GFR (MDRD) Amer 79 mL/min >[address] [facility] Comment on above: GFR Calc Estimated GFR (MDRD) Non-Af Amer 65 mL/min >[address] [facility] Comment on above: Non- GFR Calc Platelets bldOrdered By: Joao Tomas on 01-07-2022 Platelets (Bld) [#/Vol] 192 10*3/uL 150-[address] [facility] Serum or plasma calcium siobhan urement (mass/volume)Ordered By: Jhonny Tomas on 01-07-2022 Calcium [Mass/Vol] 8.8 mg/dL 8.5-10.1 [facility] Serum or plasma creatinine m easurement (mass/volume)Ordered By: Jhonny Tomas on 01-07-2022 Creatinine [Mass/Vol] 1.14 mg/dL 0.70-1.30 [facility] Comment on above: The validity of the calculated GFR & GFRAA in patients over 70 years has not been determined. Clinical correlation is essential. Serum or plasma urea nitroge n measurement (mass/volume)Ordered By: Jhonny Tomas on 01-07-2022 Urea nitrogen [Mass/Vol] 13 mg/dL 7-[address] [facility] Thin prep Papanicolaou smear with manual screeningOrdered By: Jhonny Tomas on 01-07-2022 Thin prep Papanicolaou smear with manual screening 8 5-[address] [facility] Absolute lymphocyte countOrd ered By: Jhonny Tomas on 12-24-2021 Lymphocytes Auto (Unsp spec) [#/Vol] 1.60 10*3/uL 0.83-4.51 [facility] Basophil percentageOrdered B y: Jhonny Tomas on 12-24-2021 Basophils/100 WBC (Bld) 0.4 % 0-1 [facility] Chloride [Moles/Vol] 109 mmol/L 98-107 [facility] Eosinophils/100 WBC (Bld) 1.5 % 0-[address] [facility] Glucose [Mass/Vol] 93 mg/dL 74-106 [facility] Neutrophils (Bld) [#/Vol] 4.8 10*3/uL 2.0-7.[address] [facility] Neutrophils/100 WBC (Bld) 66.8 % 47-[address] [facility] Potassium [Moles/Vol] 4.0 mmol/L 3.5-5.1 [facility] Comment on above: Slight Hemolysis, Re sult may be falsely increased. Sodium [Moles/Vol] 140 mmol/L 136-145 [facility] WBC (Bld) [#/Vol] 7.2 10*3/uL 4.4-11.0 [facility] Blood erythrocytes count (nu mber/volume)Ordered By: Jhonny Tomas on 12-24-2021 RBC (Bld) [#/Vol] 4.49 10*6/uL 4.6-6.2 [facility] Blood hemoglobin measurement (mass/volume)Ordered By: Jhonny Tomas on 12-24-2021 Hemoglobin (Bld) [Mass/Vol] 14.5 g/dL 13.0-16.[address] [facility] Blood lymphocytes/100 leukoc ytesOrdered By: Jhonny Tomas on 12-24-2021 Lymphocytes/100 WBC (Bld) 22.2 % 19-[address] [facility] Blood monocytes/100 leukocyt esOrdered By: Jhonny Tomas on 12-24-2021 Monocytes/100 WBC (Bld) 9.0 % 0-10 [facility] Blood platelet mean volumeOr dered By: Jhonny Tomas on 12-24-2021 Platelet mean volume (Bld) [Entitic vol] 11.2 fL 6.2-12.[address] [facility] Determination of erythrocyte mean corpuscular volume (MCV)Ordered By: Jhonny Tomas on 12-24-2021 MCV (RBC) [Entitic vol] 97.1 fL 80-94 [facility] Hematocrit Auto (Bld) [Volum e fraction]Ordered By: Jhonny Tomas on 12-24-2021 Hematocrit (Bld) [Volume fraction] 43.6 % 40-[address] [facility] Laboratory - Chemistry and C hemistry - challengeOrdered By: Jhonny Tomas on 12-24-2021 CO2 [Moles/Vol] 26.0 mmol/L 21.0-32.[address] [facility] Urea nitrogen/Creatinine [Mass ratio] 14.7 mg/mg - [facility] Laboratory - Hematology and Cell countsOrdered By: Jhonny Tomas on 12-24-2021 Erythrocyte distribution width (RBC) [Entitic vol] 51.8 fL 35.1-43.[address] [facility] Erythrocyte distribution width (RBC) [Ratio] 14.4 % 11.6-14.[address] [facility] Immature granulocytes/100 WBC (Bld) 0.100 % 0.0-0.[address] [facility] Comment on above: IG% - Immature Granu locytes (promyelocytes, myelocytes and metamyelocytes) > 1% indicates that a LEFT SHIFT is Present. MCH (RBC) [Entitic mass] 32.3 pg 27.0-32.[address] [facility] Nucleated RBC/100 WBC (Bld) [Ratio] 0 % 0-[address] [facility] MCHC Auto (RBC) [Mass/Vol]Or dered By: Jhonny Tomas on 12-24-2021 MCHC (RBC) [Mass/Vol] 33.3 g/dL 32-36 [facility] No Panel InformationOrdered By: Jhonny Tomas on 12-24-2021 Estimated GFR (MDRD) Amer 90 mL/min >[address] [facility] Comment on above: GFR Calc Estimated GFR (MDRD) Non-Af Amer 74 mL/min >[address] [facility] Comment on above: Non- GFR Calc Platelets bldOrdered By: Joao Tomas on 12-24-2021 Platelets (Bld) [#/Vol] 166 10*3/uL 150-[address] [facility] Serum or plasma calcium siobhan urement (mass/volume)Ordered By: Jhonny Tomas on 12-24-2021 Calcium [Mass/Vol] 8.8 mg/dL 8.5-10.1 [facility] Serum or plasma creatinine m easurement (mass/volume)Ordered By: Jhonny Tomas on 12-24-2021 Creatinine [Mass/Vol] 1.02 mg/dL 0.70-1.30 [facility] Comment on above: The validity of the calculated GFR & GFRAA in patients over 70 years has not been determined. Clinical correlation is essential. Serum or plasma urea nitroge n measurement (mass/volume)Ordered By: Jhonny Tomas on 12-24-2021 Urea nitrogen [Mass/Vol] 15 mg/dL 7-[address] [facility] Thin prep Papanicolaou smear with manual screeningOrdered By: Jhonny Tomas on 12-24-2021 Thin prep Papanicolaou smear with manual screening 5 5-[address] [facility] Absolute lymphocyte counton 12-10-2021 Lymphocytes Auto (Unsp spec) [#/Vol] 1.33 10*3/uL 0.83-4.[address] [facility] Work Phone: [phone] Basophil percentageon 2021 Basophils/100 WBC (Bld) 0.4 % 0-1 [facility] Work Phone: [phone] Chloride [Moles/Vol] 105 mmol/L 98-107 [facility] Work Phone: [phone] Eosinophils/100 WBC (Bld) 1.3 % 0-[address] [facility] Work Phone: [phone] Glucose [Mass/Vol] 103 mg/dL 74-106 [facility] Work Phone: [phone] Comment on above: Fasting Glucose resu lt from 100 to 125 mg/dL suggests IMPAIRED HOMEOSTASIS per A.D.A. criteria. Neutrophils (Bld) [#/Vol] 4.8 10*3/uL 2.0-7.[address] [facility] Work Phone: [phone] Neutrophils/100 WBC (Bld) 69.1 % 47-[address] [facility] Work Phone: [phone] Potassium [Moles/Vol] 3.7 mmol/L 3.5-5.1 [facility] Work Phone: [phone] Sodium [Moles/Vol] 141 mmol/L 136-145 [facility] Work Phone: [phone] WBC (Bld) [#/Vol] 7.0 10*3/uL 4.4-11.0 [facility] Work Phone: [phone] Blood erythrocytes count (nu mber/volume)on 12-10-2021 RBC (Bld) [#/Vol] 4.88 10*6/uL 4.6-6.2 [facility] Work Phone: Blood hemoglobin measurement (mass/volume)on 12-10-2021 Hemoglobin (Bld) [Mass/Vol] 15.5 g/dL 13.0-16.[address] [facility] Work Phone: Blood lymphocytes/100 leukoc yteson 12-10-2021 Lymphocytes/100 WBC (Bld) 19.1 % 19-[address] [facility] Work Phone: Blood monocytes/100 leukocyt eson 12-10-2021 Monocytes/100 WBC (Bld) 9.8 % 0-10 [facility] Work Phone: Blood platelet mean volumeon 12-10-2021 Platelet mean volume (Bld) [Entitic vol] 10.8 fL 6.2-12.[address] [facility] Work Phone: Determination of erythrocyte mean corpuscular volume (MCV)on 12-10-2021 MCV (RBC) [Entitic vol] 95.9 fL 80-94 [facility] Work Phone: Hematocrit Auto (Bld) [Volum e fraction]on 12-10-2021 Hematocrit (Bld) [Volume fraction] 46.8 % 40-[address] [facility] Work Phone: Laboratory - Chemistry and C hemistry - challengeon 12-10-2021 CO2 [Moles/Vol] 30.0 mmol/L 21.0-32.[address] [facility] Work Phone: Urea nitrogen/Creatinine [Mass ratio] 11.3 mg/mg 10-[address] [facility] Work Phone: Laboratory - Hematology and Cell countson 12-10-2021 Erythrocyte distribution width (RBC) [Entitic vol] 51.1 fL 35.1-43.[address] [facility] Work Phone: Erythrocyte distribution width (RBC) [Ratio] 14.4 % 11.6-14.[address] [facility] Work Phone: Immature granulocytes/100 WBC (Bld) 0.300 % 0.0-0.[address] [facility] Work Phone: Comment on above: IG% - Immature Granu locytes (promyelocytes, myelocytes and metamyelocytes) > 1% indicates that a LEFT SHIFT is Present. MCH (RBC) [Entitic mass] 31.8 pg 27.0-32.[address] [facility] Work Phone: Nucleated RBC/100 WBC (Bld) [Ratio] 0 % 0-[address] [facility] Work Phone: MCHC Auto (RBC) [Mass/Vol]on 12-10-2021 MCHC (RBC) [Mass/Vol] 33.1 g/dL 32-36 [facility] Work Phone: No Panel Informationon 12-10 Estimated GFR (MDRD) Amer 86 mL/min >[address] [facility] Work Phone: Comment on above: GFR Calc Estimated GFR (MDRD) Non-Af Amer 71 mL/min >[address] [facility] Work Phone: Comment on above: Non- GFR Calc Platelets bldon 12-10-2021 Platelets (Bld) [#/Vol] 176 10*3/uL 150-[address] [facility] Work Phone: Serum or plasma calcium siobhan urement (mass/volume)on 12-10-2021 Calcium [Mass/Vol] 8.9 mg/dL 8.5-10.1 [facility] Work Phone: Serum or plasma creatinine m easurement (mass/volume)on 12-10-2021 Creatinine [Mass/Vol] 1.06 mg/dL 0.70-1.30 [facility] Work Phone: Comment on above: The validity of the calculated GFR & GFRAA in patients over 70 years has not been determined. Clinical correlation is essential. Serum or plasma urea nitroge n measurement (mass/volume)on 12-10-2021 Urea nitrogen [Mass/Vol] 12 mg/dL 7-[address] [facility] Work Phone: Thin prep Papanicolaou smear with manual screeningon 12-10-2021 Thin prep Papanicolaou smear with manual screening 6 5-[address] 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 Son Jhonny said 2 weeks after form was done father had fall and was taken to [facility] then sent to [facility] for rehab. Now father is in memory [...] stay and he is now under the [place] attending physician's care. It is more appropriate for the [place] attending physician to do another form. More statements need corrected/updated Preethi Delgadillo RN 12/11/2021 2:59 PM Signed Son (Jhonny) calls in and provider message reviewed. Son asking if form brought in can be picked back up in Medical Records. Please contact Jhonny at [phone]. RENETTA Rubio LPN 12/11/2021 3:41 PM Signed [...] by FLORA WOOD LPN on 12/11/21 Normal [facility] Absolute lymphocyte counton 11-26-2021 Lymphocytes Auto (Unsp spec) [#/Vol] 1.47 10*3/uL 0.83-4.[address] [facility] Work Phone: Basophil percentageon 2021 Basophils/100 WBC (Bld) 0.6 % 0-1 [facility] Work Phone: Chloride [Moles/Vol] 107 mmol/L 98-107 [facility] Work Phone: Eosinophils/100 WBC (Bld) 1.1 % 0-[address] [facility] Work Phone: Glucose [Mass/Vol] 92 mg/dL 74-106 [facility] Work Phone: Neutrophils (Bld) [#/Vol] 6.4 10*3/uL 2.0-7.[address] [facility] Work Phone: Neutrophils/100 WBC (Bld) 71.7 % 47-[address] [facility] Work Phone: Potassium [Moles/Vol] 4.0 mmol/L 3.5-5.1 [facility] Work Phone: Comment on above: Slight Hemolysis, Re sult may be falsely increased. Sodium [Moles/Vol] 141 mmol/L 136-145 [facility] Work Phone: WBC (Bld) [#/Vol] 9.0 10*3/uL 4.4-11.0 [facility] Work Phone: Blood erythrocytes count (nu mber/volume)on 11-26-2021 RBC (Bld) [#/Vol] 4.81 10*6/uL 4.6-6.2 [facility] Work Phone: Blood hemoglobin measurement (mass/volume)on 11-26-2021 Hemoglobin (Bld) [Mass/Vol] 15.3 g/dL 13.0-16.[address] [facility] Work Phone: Blood lymphocytes/100 leukoc yteson 11-26-2021 Lymphocytes/100 WBC (Bld) 16.4 % 19-[address] [facility] Work Phone: Blood monocytes/100 leukocyt eson 11-26-2021 Monocytes/100 WBC (Bld) 9.9 % 0-10 [facility] Work Phone: Blood platelet mean volumeon 11-26-2021 Platelet mean volume (Bld) [Entitic vol] 11.2 fL 6.2-12.[address] [facility] Work Phone: Determination of erythrocyte mean corpuscular volume (MCV)on 11-26-2021 MCV (RBC) [Entitic vol] 96.7 fL 80-94 [facility] Work Phone: Hematocrit Auto (Bld) [Volum e fraction]on 11-26-2021 Hematocrit (Bld) [Volume fraction] 46.5 % 40-[address] [facility] Work Phone: Laboratory - Chemistry and C hemistry - challengeon 11-26-2021 CO2 [Moles/Vol] 28.0 mmol/L 21.0-32.[address] [facility] Work Phone: Urea nitrogen/Creatinine [Mass ratio] 13.3 mg/mg 10-[address] [facility] Work Phone: Laboratory - Hematology and Cell countson 11-26-2021 Erythrocyte distribution width (RBC) [Entitic vol] 51.9 fL 35.1-43.[address] [facility] Work Phone: Erythrocyte distribution width (RBC) [Ratio] 14.5 % 11.6-14.[address] [facility] Work Phone: Immature granulocytes/100 WBC (Bld) 0.300 % 0.0-0.[address] [facility] Work Phone: Comment on above: IG% - Immature Granu locytes (promyelocytes, myelocytes and metamyelocytes) > 1% indicates that a LEFT SHIFT is Present. MCH (RBC) [Entitic mass] 31.8 pg 27.0-32.[address] [facility] Work Phone: Nucleated RBC/100 WBC (Bld) [Ratio] 0 % 0-[address] [facility] Work Phone: MCHC Auto (RBC) [Mass/Vol]on 11-26-2021 MCHC (RBC) [Mass/Vol] 32.9 g/dL 32-36 [facility] Work Phone: No Panel Informationon 11-26 Estimated GFR (MDRD) Amer 80 mL/min >[address] [facility] Work Phone: Comment on above: GFR Calc Estimated GFR (MDRD) Non-Af Amer 66 mL/min >[address] [facility] Work Phone: Comment on above: Non- GFR Calc Platelets bldon 11-26-2021 Platelets (Bld) [#/Vol] 181 10*3/uL 150-[address] [facility] Work Phone: Serum or plasma calcium siobhan urement (mass/volume)on 11-26-2021 Calcium [Mass/Vol] 8.7 mg/dL 8.5-10.1 [facility] Work Phone: Serum or plasma creatinine m easurement (mass/volume)on 11-26-2021 Creatinine [Mass/Vol] 1.13 mg/dL 0.70-1.30 [facility] Work Phone: Comment on above: The validity of the calculated GFR & GFRAA in patients over 70 years has not been determined. Clinical correlation is essential. Serum or plasma urea nitroge n measurement (mass/volume)on 11-26-2021 Urea nitrogen [Mass/Vol] 15 mg/dL 7-[address] [facility] Work Phone: Thin prep Papanicolaou smear with manual screeningon 11-26-2021 Thin prep Papanicolaou smear with manual screening 6 5-[address] [facility] Work Phone: Absolute lymphocyte counton 11-12-2021 Lymphocytes Auto (Unsp spec) [#/Vol] 1.01 10*3/uL 0.83-4.[address] [facility] Work Phone: Basophil percentageon 2021 Basophils/100 WBC (Bld) 0.6 % 0-1 [facility] Work Phone: Chloride [Moles/Vol] 109 mmol/L 98-107 [facility] Work Phone: Eosinophils/100 WBC (Bld) 1.1 % 0-[address] [facility] Work Phone: Glucose [Mass/Vol] 89 mg/dL 74-106 [facility] Work Phone: Neutrophils (Bld) [#/Vol] 4.7 10*3/uL 2.0-7.[address] [facility] Work Phone: Neutrophils/100 WBC (Bld) 72.7 % 47-[address] [facility] Work Phone: Potassium [Moles/Vol] 3.9 mmol/L 3.5-5.1 [facility] Work Phone: Sodium [Moles/Vol] 142 mmol/L 136-145 [facility] Work Phone: WBC (Bld) [#/Vol] 6.5 10*3/uL 4.4-11.0 [facility] Work Phone: Blood erythrocytes count (nu mber/volume)on 11-12-2021 RBC (Bld) [#/Vol] 4.50 10*6/uL 4.6-6.2 [facility] Work Phone: Blood hemoglobin measurement (mass/volume)on 11-12-2021 Hemoglobin (Bld) [Mass/Vol] 14.4 g/dL 13.0-16.[address] [facility] Work Phone: Blood lymphocytes/100 leukoc yteson 11-12-2021 Lymphocytes/100 WBC (Bld) 15.5 % 19-[address] [facility] Work Phone: Blood monocytes/100 leukocyt eson 11-12-2021 Monocytes/100 WBC (Bld) 9.8 % 0-10 [facility] Work Phone: Blood platelet mean volumeon 11-12-2021 Platelet mean volume (Bld) [Entitic vol] 10.9 fL 6.2-12.[address] [facility] Work Phone: Determination of erythrocyte mean corpuscular volume (MCV)on 11-12-2021 MCV (RBC) [Entitic vol] 97.3 fL 80-94 [facility] Work Phone: Hematocrit Auto (Bld) [Volum e fraction]on 11-12-2021 Hematocrit (Bld) [Volume fraction] 43.8 % 40-[address] [facility] Work Phone: Laboratory - Chemistry and C hemistry - challengeon 11-12-2021 CO2 [Moles/Vol] 26.0 mmol/L 21.0-32.[address] [facility] Work Phone: Urea nitrogen/Creatinine [Mass ratio] 16.4 mg/mg 10-[address] [facility] Work Phone: Laboratory - Hematology and Cell countson 11-12-2021 Erythrocyte distribution width (RBC) [Entitic vol] 53.1 fL 35.1-43.[address] [facility] Work Phone: Erythrocyte distribution width (RBC) [Ratio] 14.8 % 11.6-14.[address] [facility] Work Phone: Immature granulocytes/100 WBC (Bld) 0.300 % 0.0-0.[address] [facility] Work Phone: Comment on above: IG% - Immature Granu locytes (promyelocytes, myelocytes and metamyelocytes) > 1% indicates that a LEFT SHIFT is Present. MCH (RBC) [Entitic mass] 32.0 pg 27.0-32.[address] [facility] Work Phone: Nucleated RBC/100 WBC (Bld) [Ratio] 0 % 0-[address] [facility] Work Phone: MCHC Auto (RBC) [Mass/Vol]on 11-12-2021 MCHC (RBC) [Mass/Vol] 32.9 g/dL 32-36 [facility] Work Phone: No Panel Informationon 11-12 Estimated GFR (MDRD) Amer 102 mL/min >[address] [facility] Work Phone: Comment on above: GFR Calc Estimated GFR (MDRD) Non-Af Amer 84 mL/min >[address] [facility] Work Phone: Comment on above: Non- GFR Calc Platelets bldon 11-12-2021 Platelets (Bld) [#/Vol] 181 10*3/uL 150-[address] [facility] Work Phone: Serum or plasma calcium siobhan urement (mass/volume)on 11-12-2021 Calcium [Mass/Vol] 8.7 mg/dL 8.5-10.1 [facility] Work Phone: Serum or plasma creatinine m easurement (mass/volume)on 11-12-2021 Creatinine [Mass/Vol] 0.92 mg/dL 0.70-1.30 [facility] Work Phone: Comment on above: The validity of the calculated GFR & GFRAA in patients over 70 years has not been determined. Clinical correlation is essential. Serum or plasma urea nitroge n measurement (mass/volume)on 11-12-2021 Urea nitrogen [Mass/Vol] 15 mg/dL 7-[address] [facility] Work Phone: Thin prep Papanicolaou smear with manual screeningon 11-12-2021 Thin prep Papanicolaou smear with manual screening 7 5-[address] [facility] Work Phone: Absolute lymphocyte counton 10-29-2021 Lymphocytes Auto (Unsp spec) [#/Vol] 0.96 10*3/uL 0.83-4.[address] [facility] Work Phone: Basophil percentageon 2021 Basophils/100 WBC (Bld) 0.5 % 0-1 [facility] Work Phone: [phone] Chloride [Moles/Vol] 110 mmol/L 98-107 [facility] Work Phone: [phone] Eosinophils/100 WBC (Bld) 1.9 % 0-[address] [facility] Work Phone: Glucose [Mass/Vol] 93 mg/dL 74-106 [facility] Work Phone: [phone] Neutrophils (Bld) [#/Vol] 4.5 10*3/uL 2.0-7.[address] [facility] Work Phone: [phone] Neutrophils/100 WBC (Bld) 70.1 % 47-[address] [facility] Work Phone: [phone] Potassium [Moles/Vol] 3.8 mmol/L 3.5-5.1 [facility] Work Phone: [phone] Sodium [Moles/Vol] 142 mmol/L 136-145 [facility] Work Phone: [phone] WBC (Bld) [#/Vol] 6.4 10*3/uL 4.4-11.0 [facility] Work Phone: [phone] Blood erythrocytes count (nu mber/volume)on 10-29-2021 RBC (Bld) [#/Vol] 4.38 10*6/uL 4.6-6.2 [facility] Work Phone: Blood hemoglobin measurement (mass/volume)on 10-29-2021 Hemoglobin (Bld) [Mass/Vol] 13.9 g/dL 13.0-16.[address] [facility] Work Phone: Blood lymphocytes/100 leukoc yteson 10-29-2021 Lymphocytes/100 WBC (Bld) 15.1 % 19-[address] [facility] Work Phone: Blood monocytes/100 leukocyt eson 10-29-2021 Monocytes/100 WBC (Bld) 12.1 % 0-10 [facility] Work Phone: Blood platelet mean volumeon 10-29-2021 Platelet mean volume (Bld) [Entitic vol] 11.2 fL 6.2-12.[address] [facility] Work Phone: Determination of erythrocyte mean corpuscular volume (MCV)on 10-29-2021 MCV (RBC) [Entitic vol] 96.8 fL 80-94 [facility] Work Phone: Hematocrit Auto (Bld) [Volum e fraction]on 10-29-2021 Hematocrit (Bld) [Volume fraction] 42.4 % 40-[address] [facility] Work Phone: Laboratory - Chemistry and C hemistry - challengeon 10-29-2021 CO2 [Moles/Vol] 27.0 mmol/L 21.0-32.[address] [facility] Work Phone: Urea nitrogen/Creatinine [Mass ratio] 11.1 mg/mg 10-[address] [facility] Work Phone: Laboratory - Hematology and Cell countson 10-29-2021 Erythrocyte distribution width (RBC) [Entitic vol] 52.1 fL 35.1-43.[address] [facility] Work Phone: Erythrocyte distribution width (RBC) [Ratio] 14.6 % 11.6-14.[address] [facility] Work Phone: Immature granulocytes/100 WBC (Bld) 0.300 % 0.0-0.[address] [facility] Work Phone: Comment on above: IG% - Immature Granu locytes (promyelocytes, myelocytes and metamyelocytes) > 1% indicates that a LEFT SHIFT is Present. MCH (RBC) [Entitic mass] 31.7 pg 27.0-32.[address] [facility] Work Phone: Nucleated RBC/100 WBC (Bld) [Ratio] 0 % 0-[address] [facility] Work Phone: MCHC Auto (RBC) [Mass/Vol]on 10-29-2021 MCHC (RBC) [Mass/Vol] 32.8 g/dL 32-36 [facility] Work Phone: No Panel Informationon 10-29 Estimated GFR (MDRD) Amer 84 mL/min >[address] [facility] Work Phone: Comment on above: GFR Calc Estimated GFR (MDRD) Non-Af Amer 70 mL/min >[address] [facility] Work Phone: Comment on above: Non- GFR Calc Platelets bldon 10-29-2021 Platelets (Bld) [#/Vol] 187 10*3/uL 150-[address] [facility] Work Phone: Serum or plasma calcium siobhan urement (mass/volume)on 10-29-2021 Calcium [Mass/Vol] 8.8 mg/dL 8.5-10.1 [facility] Work Phone: Serum or plasma creatinine m easurement (mass/volume)on 10-29-2021 Creatinine [Mass/Vol] 1.08 mg/dL 0.70-1.30 [facility] Work Phone: Comment on above: The validity of the calculated GFR & GFRAA in patients over 70 years has not been determined. Clinical correlation is essential. Serum or plasma urea nitroge n measurement (mass/volume)on 10-29-2021 Urea nitrogen [Mass/Vol] 12 mg/dL 7-[address] [facility] Work Phone: Thin prep Papanicolaou smear with manual screeningon 10-29-2021 Thin prep Papanicolaou smear with manual screening 5 5-[address] [facility] Work [facility]: [facility]ARD ([id number]) 1940 M Date Time Provider Department 10/23/21 NICOLAS CARDENAS INTMWS During your visit today, we recorded the following information about you: Flora Wood LPN 10/23/2021 11:54 AM Signed Per [facility] discharge info pt was discharged to [facility] 10/22/21. Allergies As of Date: 10/23/2021 (No [...] by FLORA WOOD LPN on 10/23/21 Normal [facility] Laboratory - Chemistry and C hemistry - challengeon 10-22-2021 CK [Catalytic activity/Vol] 1616 U/L 39-[address] [facility] Work Phone: Absolute lymphocyte counton 10-21-2021 Lymphocytes Auto (Unsp spec) [#/Vol] 0.75 10*3/uL 0.83-4.[address] [facility] Work Phone: Basophil percentageon 2021 Basophils/100 WBC (Bld) 0.1 % 0-1 [facility] Work Phone: [phone] Chloride [Moles/Vol] 107 mmol/L 98-107 [facility] Work Phone: Eosinophils/100 WBC (Bld) 0.0 % 0-[address] [facility] Work Phone: Glucose [Mass/Vol] 144 mg/dL 74-106 [facility] Work Phone: Comment on above: Fasting Glucose resu lt greater than or equal to 126 mg/dL suggests DIABETES MELLITUS per A.D.A. criteria. Neutrophils (Bld) [#/Vol] 11.4 10*3/uL 2.0-7.[address] [facility] Work Phone: Neutrophils/100 WBC (Bld) 85.4 % 47-[address] [facility] Work Phone: Potassium [Moles/Vol] 3.7 mmol/L 3.5-5.1 [facility] Work Phone: Sodium [Moles/Vol] 141 mmol/L 136-145 [facility] [facility] Work Phone: WBC (Bld) [#/Vol] 13.4 10*3/uL 4.4-11.0 [facility] Work Phone: Blood erythrocytes count (nu mber/volume)on 10-21-2021 RBC (Bld) [#/Vol] 5.04 10*6/uL 4.6-6.2 [facility] Work Phone: Blood hemoglobin measurement (mass/volume)on 10-21-2021 Hemoglobin (Bld) [Mass/Vol] 15.7 g/dL 13.0-16.[address] [facility] Work Phone: Blood lymphocytes/100 leukoc yteson 10-21-2021 Lymphocytes/100 WBC (Bld) 5.6 % 19-[address] [facility] Work Phone: Blood monocytes/100 leukocyt eson 10-21-2021 Monocytes/100 WBC (Bld) 8.5 % 0-10 [facility] Work Phone: Blood platelet mean volumeon 10-21-2021 Platelet mean volume (Bld) [Entitic vol] 11.2 fL 6.2-12.[address] [facility] Work Phone: Determination of erythrocyte mean corpuscular volume (MCV)on 10-21-2021 MCV (RBC) [Entitic vol] 93.8 fL 80-94 [facility] Work Phone: Hematocrit Auto (Bld) [Volum e fraction]on 10-21-2021 Hematocrit (Bld) [Volume fraction] 47.3 % 40-[address] [facility] Work Phone: Laboratory - Chemistry and C hemistry - challengeon 10-21-2021 CO2 [Moles/Vol] 26.0 mmol/L 21.0-32.[address] [facility] Work Phone: Urea nitrogen/Creatinine [Mass ratio] 14.2 mg/mg 10-[address] [facility] Work Phone: Laboratory - Hematology and Cell countson 10-21-2021 Erythrocyte distribution width (RBC) [Entitic vol] 50.5 fL 35.1-43.[address] [facility] Work Phone: Erythrocyte distribution width (RBC) [Ratio] 14.7 % 11.6-14.[address] [facility] Work Phone: Immature granulocytes/100 WBC (Bld) 0.400 % 0.0-0.[address] [facility] Work Phone: Comment on above: IG% - Immature Granu locytes (promyelocytes, myelocytes and metamyelocytes) > 1% indicates that a LEFT SHIFT is Present. MCH (RBC) [Entitic mass] 31.2 pg 27.0-32.[address] [facility] Work Phone: Nucleated RBC/100 WBC (Bld) [Ratio] 0 % 0-[address] [facility] Work Phone: MCHC Auto (RBC) [Mass/Vol]on 10-21-2021 MCHC (RBC) [Mass/Vol] 33.2 g/dL 32-36 [facility] Work [facility]: No Panel Informationon 10-21 Estimated Creatinine Clearance Calc 48.76 ml/min [facility] Work Phone: Estimated GFR (MDRD) Amer 80 mL/min >[address] [facility] Work Phone: Comment on above: GFR Calc Estimated GFR (MDRD) Non-Af Amer 66 mL/min >[address] [facility] Work Phone: Comment on above: Non- GFR Calc Thyroid Stimulating Hormone (TSH) 1.56 uIU/mL 0.358-3.[address] [facility] Work Phone: Vitamin D 25-Hydroxy 10.8 ng/mL [facility] Work Phone: Comment on above: Vitamin D 25(OH) Sta tus Range Deficiency <20 ng/mL (50nmol/L) Insufficiency 20 - 30 ng/mL (50 - 75 nmol/L) Sufficiency 30 - 100 ng/mL (75 - 250 nmol/L) Toxicity >100 ng/mL (>250 nmol/L) Platelets bldon 10-21-2021 Platelets (Bld) [#/Vol] 219 10*3/uL 150-[address] [facility] Work Phone: Serum or plasma calcium siobhan urement (mass/volume)on 10-21-2021 Calcium [Mass/Vol] 9.1 mg/dL 8.5-10.1 [facility] Work Phone: Serum or plasma creatinine m easurement (mass/volume)on 10-21-2021 Creatinine [Mass/Vol] 1.13 mg/dL 0.70-1.30 [facility] Work Phone: Comment on above: The validity of the calculated GFR & GFRAA in patients over 70 years has not been determined. Clinical correlation is essential. Serum or plasma urea nitroge n measurement (mass/volume)on 10-21-2021 Urea nitrogen [Mass/Vol] 16 mg/dL 7-[address] [facility] Work Phone: Thin prep Papanicolaou smear with manual screeningon 10-21-2021 Thin prep Papanicolaou smear with manual screening 8 5-[address] [facility] Work Phone: Absolute lymphocyte counton 10-20-2021 Lymphocytes Auto (Unsp spec) [#/Vol] 0.59 10*3/uL 0.83-4.[address] [facility] Work Phone: [phone] Basophil percentageon 2021 Basophil percentage 5-10 SEEN /hpf 0-5 [facility] Work Phone: [phone] Basophils/100 WBC (Bld) 0.1 % 0-1 [facility] Work Phone: [phone] Chloride [Moles/Vol] 107 mmol/L 98-107 [facility] Work Phone: [phone] Eosinophils/100 WBC (Bld) 0.0 % 0-[address] [facility] Work Phone: Glucose [Mass/Vol] 110 mg/dL 74-106 [facility] Work Phone: Comment on above: Fasting Glucose resu lt from 100 to 125 mg/dL suggests IMPAIRED HOMEOSTASIS per A.D.A. criteria. Neutrophils (Bld) [#/Vol] 11.6 10*3/uL 2.0-7.[address] [facility] Work Phone: Neutrophils/100 WBC (Bld) 85.8 % 47-[address] [facility] Work Phone: Potassium [Moles/Vol] 3.6 mmol/L 3.5-5.1 [facility] Work Phone: Sodium [Moles/Vol] 141 mmol/L 136-145 [facility] Work Phone: [phone] WBC (Bld) [#/Vol] 13.5 10*3/uL 4.4-11.0 [facility]: Bilirubin Test strip Ql (U)o n 10-20-2021 Bilirubin Ql (U) Negative Negative [facility] Work Phone: Blood erythrocytes count (nu mber/volume)on 10-20-2021 RBC (Bld) [#/Vol] 5.14 10*6/uL 4.6-6.2 [facility] Work [facility]: Blood hemoglobin measurement (mass/volume)on 10-20-2021 Hemoglobin (Bld) [Mass/Vol] 15.9 g/dL 13.0-16.[address] [facility] Work Phone: Blood lymphocytes/100 leukoc yteson 10-20-2021 Lymphocytes/100 WBC (Bld) 4.4 % 19-[address] [facility] Work Phone: Blood manual differential co mment interpretation (narrative result)on 10-20-2021 Manual differential comment Wei (Bld) [Interp] SEE COMMENT [facility] Work Phone: Comment on above: LYMPHOPENIA NOTED Blood monocytes/100 leukocyt eson 10-20-2021 Monocytes/100 WBC (Bld) 9.0 % 0-10 [facility] Work Phone: Blood platelet adequacy dete ction by light microscopyon 10-20-2021 Platelets LM Ql (Bld) ADEQUATE ADEQ [facility] Work Phone: Blood platelet mean volumeon 10-20-2021 Platelet mean volume (Bld) [Entitic vol] 10.4 fL 6.2-12.[address] [facility] Work Phone: Determination of erythrocyte mean corpuscular volume (MCV)on 10-20-2021 MCV (RBC) [Entitic vol] 92.8 fL 80-94 [facility] Work Phone: Hematocrit Auto (Bld) [Volum e fraction]on 10-20-2021 Hematocrit (Bld) [Volume fraction] 47.7 % 40-[address] [facility] Work Phone: Hyaline casts LM.LPF (Urine sed) [#/Area]on 10-20-2021 Hyaline casts (Urine sed) [#/Area] 0 /[LPF] 0-[address] [facility] Work Phone: Ketones Test strip Ql (U)on 10-20-2021 Ketones Ql (U) 50 mg/dl Negative [facility] Work Phone: Laboratory - Chemistry and C hemistry - challengeon 10-20-2021 CO2 [Moles/Vol] 25.0 mmol/L 21.0-32.[address] [facility] Work Phone: Urea nitrogen/Creatinine [Mass ratio] 15.0 mg/mg 10-[address] [facility] Work Phone: Laboratory - Hematology and Cell countson 10-20-2021 Anisocytosis Ql (Bld) RARE [facility] Work Phone: Erythrocyte distribution width (RBC) [Entitic vol] 48.4 fL 35.1-43.[address] [facility] Work Phone: Erythrocyte distribution width (RBC) [Ratio] 14.4 % 11.6-14.[address] [facility] Work Phone: Immature granulocytes/100 WBC (Bld) 0.700 % 0.0-0.[address] [facility] Work Phone: Comment on above: IG% - Immature Granu locytes (promyelocytes, myelocytes and metamyelocytes) > 1% indicates that a LEFT SHIFT is Present. MCH (RBC) [Entitic mass] 30.9 pg 27.0-32.[address] [facility] Work Phone: Nucleated RBC/100 WBC (Bld) [Ratio] 0 % 0-[address] [facility] Work Phone: MCHC Auto (RBC) [Mass/Vol]on 10-20-2021 MCHC (RBC) [Mass/Vol] 33.3 g/dL 32-36 [facility] Work Phone: Macrocytes detectionon 10-20 Macrocytes Ql (Bld) RARE [facility] Work Phone: Mucus LM Ql (Urine sed)on Mucus Ql (Urine sed) 0 SEEN /hpf [facility] Work Phone: Nitrite Test strip Ql (U)on 10-20-2021 Nitrite Ql (U) Negative Negative [facility] Work Phone: No Panel Informationon 10-20 Estimated Creatinine Clearance Calc 53.23 ml/min [facility] Work Phone: Estimated GFR (MDRD) Amer 85 mL/min >[address] [facility] Work Phone: Comment on above: GFR Calc Estimated GFR (MDRD) Non-Af Amer 70 mL/min >[address] [facility] Work Phone: Comment on above: Non- GFR Calc Platelets bldon 10-20-2021 Platelets (Bld) [#/Vol] 198 10*3/uL 150-[address] [facility] Work Phone: Protein Test strip Ql (U)on 10-20-2021 Protein Ql (U) 30 mg/dl Negative [facility] Work Phone: RBC morphologyon 10-20-2021 RBC morphology finding Nom (Bld) N CHROM NORMAL NORM C&C [facility] Work Phone: Serum or plasma calcium siobhan urement (mass/volume)on 10-20-2021 Calcium [Mass/Vol] 9.1 mg/dL 8.5-10.1 [facility] Work Phone: Serum or plasma creatinine m easurement (mass/volume)on 10-20-2021 Creatinine [Mass/Vol] 1.07 mg/dL 0.70-1.30 [facility] Work Phone: Comment on above: The validity of the calculated GFR & GFRAA in patients over 70 years has not been determined. Clinical correlation is essential. Serum or plasma urea nitroge n measurement (mass/volume)on 10-20-2021 Urea nitrogen [Mass/Vol] 16 mg/dL 7-[address] [facility] Work Phone: Squamous epithelial cells de tection in urine sediment by light microscopyon 10-20-2021 Epithelial cells.squamous LM Ql (Urine sed) 0 SEEN /hpf 0-[address] [facility] Work Phone: Thin prep Papanicolaou smear with manual screeningon 10-20-2021 Thin prep Papanicolaou smear with manual screening 9 5-[address] [facility] Work Phone: Urine blood detectionon - RBC Ql (U) 250 /ul Negative [facility] Work Phone: RBC Ql (U) 0 SEEN /hpf 0-[address] [facility] Work Phone: Urine clarityon 10-20-2021 Clarity (U) Sl. Cloudy Clear [facility] Work Phone: Urine color determinationon 10-20-2021 Color (U) Kristina Yellow [facility] Work Phone: Urine glucose detectionon Glucose Ql (U) Normal mg/dl Normal [facility] Work Phone: Urine leukocyte esterase det ection by dipstickon 10-20-2021 Leukocyte esterase Test strip Ql (U) 25 /ul Negative [facility] Work Phone: Urine pHon 10-20-2021 pH (U) 5.0 [pH] 5.0 - 8.[address] [facility] Work Phone: Urine sediment bacteria coun t by microscopy (number/high power field)on 10-20-2021 Bacteria LM.HPF (Urine sed) [#/Area] 1 /[HPF] None Seen [facility] Work Phone: Urine specific gravity measu rementon 10-20-2021 Specific gravity (U) [Rel density] 1.025 1.002-1.[address] [facility] Work Phone: Urobilinogen Auto test strip Ql (U)on 10-20-2021 Urobilinogen Ql (U) 1 mg/dl Normal [facility] Work Phone: CNOVon 09-29-2021 CNOV Office Visit (INTMWS) KEL DILLARD ([id number]) 1940 M Date Time Provider Department 09/29/21 4:40 PM NICOLAS CARDENAS INTDiogoWS During your visit today, we recorded the following information about you: Temperature Pulse Respiration Blood pressure Normal [facility] 07-15-2021 CNPN Telephone (INTMWS) KEL DILLARD ([id number]) 1940 M Date Time Provider Department 07/15/21 NICOLAS CARDENAS During your visit today, we recorded the following information about you: Karen Matias RN 07/15/2021 1:40 PM Signed Yesenia, Admissions staff member at [facility] calling to state patient's son Jhonny has reached out to them to request patient possibly be admitted into their memory care unit due to cognition concerns. Yesenia is requesting notes from patient's last OV be faxed to them at [phone]. This nurse contacted son Jhonny to verify the request and he confirmed it was ok to share requested information. Information faxed as requested. Karen Matias RN Allergies As of Date: 07/15/2021 (No Known Allergies) Date Reviewed: 05/12/2021 Reviewed by: Dori Martines APRN.[facility] - Fully Assessed Reason for Visit: fax [...] Status:Closed by KAREN MATIAS on 07/15/21 Normal [facility] Culture, urine Bacteria identified Cx Nom (U) Positive [facility] Work Phone: Vital Signs Date Time Vital Sign Value Performing Clinician Chris polk 10-27-2024 22:00-0400 Diastolic blood pressure 55 mm[Hg] Dr. David Miramontes MD Work Phone: [facility] 10-27-2024 22:00-0400 Heart rate 65 /min Dr. David Miramontes MD Work Phone: [facility] 10-27-2024 22:00-0400 Respiratory rate 16 /min Dr. David Miramontes MD Work Phone: [facility] 10-27-2024 22:00-0400 Systolic blood pressure 146 mm[Hg] Dr. David Miramontes MD Work Phone: [facility] 10-27-2024 21:52-0400 Body temperature 98 [degF] Dr. David Miramontes MD Work Phone: [facility] 10-27-2024 21:52-0400 SaO2% (BldA) [Mass fraction] 96 % Dr. David Miramontes MD Work Phone: [facility] 10-27-2024 20:34-0400 Body height 172.[address] David Miramontes MD Work Phone: [facility] 10-27-2024 20:34-0400 Body mass index (BMI) [Ratio] 30.2 kg/m2 Dr. David Miramontes MD Work Phone: [facility] 10-27-2024 20:34-0400 Body weight 90.[address] David Miramontes MD Work Phone: [facility] 09-15-2024 13:51-0400 Body height 175.[address] David Miramontes MD Work Phone: [facility] 09-15-2024 12:10-0400 Body height 175.[address] David Miramontes MD Work Phone: [facility] 09-13-2024 11:44-0400 Body height 175.[address] David Miramontes MD Work Phone: [facility] 12-02-2022 10:40-0400 Body height 175.[address] Nicolas Cardenas Work Phone: [facility] 04-02-2022 14:41-0500 Body height 175.[address] Nicolas Cardenas Work Phone: [facility] 10-22-2021 08:30-0400 Body temperature 98.2 [degF] Dr. Nicolas Cardenas Work Phone: [facility] Work Phone: 10-22-2021 08:30-0400 Diastolic blood pressure 71 mm[Hg] Dr. Nicolas Cardenas Work Phone: [facility] Work Phone: 10-22-2021 08:30-0400 Heart rate 59 /min Dr. Nicolas Cardenas Work Phone: [facility] Work Phone: 10-22-2021 08:30-0400 Respiratory rate 16 /min Dr. Nicolas Cardenas Work Phone: [facility] Work Phone: 10-22-2021 08:30-0400 SaO2% (BldA) [Mass fraction] 95 % Dr. Nicolas Cardenas Work Phone: [facility] Work Phone: 10-22-2021 08:30-0400 Systolic blood pressure 125 mm[Hg] Dr. Nicolas Cardenas Work Phone: [facility] Work Phone: 10-21-2021 01:00-0400 Body height 175.[address] Nicolas Cardenas Work Phone: [facility] Work Phone: 10-21-2021 01:00-0400 Body mass index (BMI) [Ratio] 28.1 kg/m2 Dr. Nicolas Cardenas Work Phone: [facility] Work Phone: 10-21-2021 01:00-0400 Body weight 86.[address] Nicolas Cardenas Work Phone: [facility] Work Phone: 10-21-2021 00:46-0400 Body temperature 97.9 [degF] Dr. Nicolas Cardenas Work Phone: [facility] Work Phone: 10-21-2021 00:46-0400 Diastolic blood pressure 74 mm[Hg] Dr. Nicolas Cardenas Work Phone: [facility] Work Phone: 10-21-2021 00:46-0400 Heart rate 60 /min Dr. Nicolas Cardenas Work Phone: [facility] Work Phone: 10-21-2021 00:46-0400 Respiratory rate 25 /min Dr. Nicolas Cardenas Work Phone: [facility] Work Phone: 10-21-2021 00:46-0400 SaO2% (BldA) [Mass fraction] 94 % Dr. Nicolas Cardenas Work Phone: [facility] Work Phone: 10-21-2021 00:46-0400 Systolic blood pressure 115 mm[Hg] Dr. Nicolas Cardenas Work Phone: [facility] Work Phone: 10-20-2021 20:20-0400 Body height 175.[address] Nicolas Cardenas Work Phone: [facility] Work Phone: 10-20-2021 20:20-0400 Body mass index (BMI) [Ratio] 28.6 kg/m2 Dr. Nicolas Cardenas Work Phone: [facility] Work Phone: 10-20-2021 20:20-0400 Body weight 87.[address] Nicolas Cardenas Work Phone: [facility] Work Phone: 09-29-2021 16:45-0400 Body height 165.7 cm Nicolas Cardenas MD Work Phone: [facility] 09-29-2021 16:45-0400 Body temperature 97.3 [degF] Nicolas Cardenas MD Work Phone: [facility] 09-29-2021 16:45-0400 Body weight 87.09 kg Nicolas Cardenas MD Work Phone: [facility] 09-29-2021 16:45-0400 Diastolic blood pressure 76 mm[Hg] Nicolas Cardenas MD Work Phone: [facility] 09-29-2021 16:45-0400 Heart rate 60 /min Nicolas Cardenas MD Work Phone: [facility] 09-29-2021 16:45-0400 Respiratory rate 16 /min Nicolas Cardenas MD Work Phone: [facility] 09-29-2021 16:45-0400 Systolic blood pressure 130 mm[Hg] Nicolas Cardenas MD Work Phone: [facility] Encounters Encounter Date Encounter Type Care Provider Facility Start: 10-27-2024 End: 10-27-2024 Emergency department patient visit Dr. David Miramontes MD Work Phone: -Emergency Department Work Phone: Start: 09-29-2024 End: 09-29-[address] David Miramontes MD Work Phone: -[facility] Start: 09-29-2024 End: 09-29-2024 Patient encounter procedure Dasia Ungerer [facility] Work Phone: Start: 09-25-2024 End: 09-25-2024 Patient encounter procedure Marimar Zimmer [facility] Work Phone: Start: 09-25-2024 End: 09-25-[address] David Miramontes MD Work Phone: [facility] Start: 09-25-2024 Registered Referred David Miramontes MD -[facility] Start: 09-19-2024 End: 09-19-[address] David Miramontes MD Work Phone: [facility] Start: 09-19-2024 End: 09-19-2024 Patient encounter procedure Marimar Zimmer [facility] Work Phone: Start: 09-07-2024 ambulatory Efewongbe Oleghe Facili ty:[facility] Start: 09-07-2024 [facility] Start: 08-31-2024 ambulatory Efewongbe Oleghe Facili ty:[facility] Start: 08-31-2024 Registered Referred David Miramontes MD -[facility] Start: 08-29-2024 End: 08-29-[address] David Miramontes MD Work Phone: [facility] Start: 08-29-2024 End: 08-29-[address] David Miramontes MD -[facility] Work Phone: Start: 08-25-2024 End: 08-25-[address] David Miramontes MD Work Phone: [facility] Start: 08-25-2024 End: 08-25-2024 Patient encounter procedure Marimar Zimmer [facility] Work Phone: Start: 08-22-2024 ambulatory Efewongbe Oleghe Facili ty:[facility] Start: 08-22-2024 [facility] Start: 08-21-2024 End: 08-21-[address] David Miramontes MD Work Phone: [facility] Start: 08-21-2024 End: 08-21-2024 [facility] Start: 08-21-2024 End: 08-21-[address] David Miramontes MD Work Phone: [facility] Start: 08-21-2024 End: 08-21-[address] Edson Quinn MD -[facility] Work Phone: Start: 08-15-2024 End: 08-15-[address] David Miramontes MD Work Phone: [facility] Start: 08-15-2024 End: 08-15-2024 [facility] Start: 08-02-2024 ambulatory Efewongbe Oleghe Facili ty:[facility] Start: 08-02-2024 Registered Referred David AdamKrystle Pickett Start: 08-01-2024 ambulatory Efewongbe Oleghe Facili ty:[facility] Start: 08-01-2024 Registered Referred David AdamKrystle Pickett Start: 07-21-2024 ambulatory Efdanay GARCIA Fa cility:[facility] Start: 07-21-2024 Registered Referred David AdamKrystle Pickett Start: 07-20-2024 End: 07-20-[address] David Miramontes MD Work Phone: [facility] Start: 07-20-2024 End: 07-20-2024 Patient encounter procedure Marimar Zimmer -[facility] Work Phone: Start: 07-18-2024 End: 07-18-[address] David Miramontes MD Work Phone: [facility] Start: 07-18-2024 End: 07-18-[address] David Miramontes MD -[facility] Work Phone: Start: 07-17-2024 End: 07-17-2024 Follow-up encounter Diana Andres Postletwait POST COMMANDER.FACILITY DESIGNER Work Phone: [facility] Comment on above: Results Start: 07-14-2024 End: 07-14-2024 Office outpatient new 30 minutes Diana Andres Postlethwait POST COMMANDER.FACILITY DESIGNER Work Phone: [facility] Comment on above: Gross hematuria (Lise wallace Dx) Start: 07-14-2024 End: 07-14-2024 ambulatory DIANA ANDRES POSTLETHWAIT Facility:[facility] Start: 07-04-2024 End: 07-04-[address] David Miramontes MD Work Phone: [facility] Start: 07-04-2024 End: 07-04-2024 Patient encounter procedure Marimar Zimmer [facility] Work Phone: Start: 06-23-2024 End: 06-23-[address] David Miramontes MD Work Phone: [facility] Work Phone: Start: 06-23-2024 End: 06-23-2024 Departed Referred David Miramontes MD [facility] Start: 06-23-2024 End: 06-23-2024 ambulatory David GARCIA Facility:[facility] Start: 06-05-2024 End: 06-05-[address] David Miramontes MD Work Phone: [facility] Work Phone: Start: 06-05-2024 End: 06-05-2024 Departed Referred David Pickett Start: 06-05-2024 Registered Referred David Pickett Start: 06-05-2024 End: 06-05-2024 ambulatory David Miramontes OLS Facility:[facility] Start: 05-30-2024 ambulatory David Miramontes OLS Fa cility:[facility] Start: 05-30-2024 Non-patient / Non-visit Dr. Josiah Klein MD -[facility] Start: 05-30-2024 End: 05-30-[address] David Miramontes MD -[facility] Work Phone: Start: 05-30-2024 End: 05-30-2024 ambulatory David Miramontes Facility:[facility] Start: 05-30-2024 End: 05-30-2024 Patient encounter procedure Marimar VASQUES -[facility] Work Phone: Start: 05-30-2024 End: 05-30-[address] David Miramontes MD Work Phone: [facility] Work Phone: Start: 05-30-2024 End: 05-30-2024 Departed Referred David Pickett Start: 05-30-2024 Registered Referred David Pickett Start: 05-30-2024 End: 05-30-2024 ambulatory David Miramontes Facility:[facility] Start: 05-23-2024 End: 05-23-2024 ambulatory Efdanay Miramontes Facility:[facility] Start: 05-23-2024 End: 05-23-[address] David Miramontes MD -[facility] Work Phone: Start: 05-22-2024 End: 05-22-[address] David Miramontes MD Work Phone: [facility] Work Phone: Start: 05-22-2024 End: 05-22-2024 Departed Referred David AdamKrystle Piyush Start: 05-22-2024 Registered Referred David AdamKrystle Piyush Start: 05-22-2024 End: 05-22-[address] [facility]ds[facility] [facility] Work [facility] Start: 05-22-2024 End: 05-22-2024 ambulatory Efewongbe Oleghe [facility] Start: 05-18-2024 End: 05-18-2024 ambulatory Efewongbe Oleghe Facility:[facility] Start: 05-18-2024 End: 05-18-2024 Patient encounter procedure Marimar Gilliland Custodial Work Phone: Start: 05-13-2024 End: 05-13-2024 ambulatory Edson Quinn Facility:[facility] Start: 05-13-2024 End: 05-13-[address] Edson Quinn MD -[facility] Work Phone: Start: 05-11-2024 End: 05-11-2024 ambulatory Efewongbe Olee Facility:[facility] Start: 05-11-2024 End: 05-11-2024 Patient encounter procedure [facility]imar [facility] Work Phone: Start: 05-01-2024 End: 05-01-2024 ambulatory Efewongbe Oleghe Facility:[facility] Start: 05-01-2024 End: 05-01-2024 Patient encounter procedure Marimar [facility] Work Phone: Start: 04-19-2024 End: 04-19-2024 ambulatory Efewongbe Olee Facility:[facility] Start: 04-19-2024 End: 04-19-2024 Patient encounter procedure Marimar Gillil[facility] Work Phone: Start: 04-17-2024 ambulatory Efewongbe Oleghe Facili ty:[facility] Start: 04-17-2024 Registered Referred David AdamKrystle [place] Start: 04-13-2024 ambulatory Efewongbe Oleghe Facili ty:[facility] Start: 04-13-2024 Registered Referred David AdamKrystle [place] Start: 04-11-2024 End: 04-11-2024 ambulatory Efewongbe Oleghe Facility:[facility] Start: 04-11-2024 End: 04-11-[address] David Gilliland [facility] Work Phone: Start: 04-07-2024 ambulatory Efewongbe Oleghe Facili ty:[facility] Start: 04-07-[address] [facility] Start: 04-04-2024 ambulatory Efewongbe Oleghe Facili ty:[facility] Start: 04-04-2024 Registered Referred David AdamKrystle [place] Start: 03-13-2024 End: 03-13-2024 ambulatory Efewongbe Oleghe Facility:[facility] Start: 03-13-2024 End: 03-13-2024 Patient encounter procedure Marimar [facility] Work Phone: Start: 03-02-2024 End: 03-02-2024 ambulatory Efewongbe Oleghe Facility:[facility] Start: 03-02-2024 End: 03-02-2024 Patient encounter procedure Isidro [facility] Work Phone: Start: 02-15-2024 End: 02-15-2024 ambulatory Efewongbe Oleghe Facility:[facility] Start: 02-15-2024 End: 02-15-[address] David [facility] Work Phone: Start: 02-14-2024 End: 02-14-2024 ambulatory Efewongbe Oleghe Facility:[facility] Start: 02-14-2024 End: 02-14-[address] Edson Quinn MD -[place] [facility] Work Phone: Start: 02-03-2024 ambulatory Efewongbe Oleghe Facili ty:[facility] Start: 01-12-2024 End: 01-12-2024 ambulatory Efewongbe Oleghe Facility:[facility] Start: 01-04-2024 ambulatory Efewongbe Oleghe Facili ty:[facility] Start: 12-28-2023 End: 12-28-2023 ambulatory Efewongbe Oleghe Facility:[facility] Start: 12-07-2023 End: 12-07-2023 ambulatory Efewongbe Oleghe Facility:[facility] Start: 11-15-2023 End: 11-15-2023 ambulatory Efewongbe Oleghe Facility:[facility] Start: 11-08-2023 End: 11-08-2023 ambulatory Efewongbe Oleghe Facility:[facility] Start: 10-27-2023 End: 10-27-2023 ambulatory Efewongbe Oleghe Facility:[facility] Start: 04-06-2023 End: 04-06-[address] Nicolas Cardenas Work Phone: [facility] Work Phone: Start: 04-06-2023 End: 04-06-[address] Nicolas Cardenas Work Phone: [facility] Start: 02-02-2023 End: 02-02-[address] Nicolas Cardenas Work Phone: [facility] Work Phone: Start: 01-15-2023 End: 01-15-[address] Nicolas Cardenas Work Phone: [facility] Work Phone: Start: 12-30-2022 End: 12-30-[address] Nicolas Cardenas Work Phone: [facility] Work Phone: Start: 12-30-2022 End: 12-30-[address] Nicolas Cardenas Work Phone: [facility] Start: 11-23-2022 End: 11-23-[address] Nicolas Cardenas Work Phone: [facility] Work Phone: Start: 11-17-2022 End: 11-17-[address] Nicolas Cardenas Work Phone: [facility] Work Phone: Start: 10-06-2022 End: 10-06-[address] Nicolas Cardenas Work Phone: [facility] Work Phone: Start: 09-29-2022 End: 09-29-[address] Nicolas Cardenas Work Phone: [facility] Start: 09-23-2022 End: 09-23-[address] Nicolas Cardenas Work Phone: [facility] Work Phone: Start: 06-29-2022 End: 06-29-[address] Nicolas Cardenas Work Phone: [facility] Work Phone: Start: 06-29-2022 End: 06-29-[address] Nicolas Cardenas Work Phone: [facility] Start: 06-23-2022 End: 06-23-[address] Nicolas Cardenas Work Phone: [facility] Start: 06-05-2022 ambulatory Yoli Reardon Kik Comment on above: Population Health Na vigation Outreach ([facility] Gaps) Start: 05-18-2022 End: 05-18-[address] Nicolas Cardenas Work Phone: [facility] Start: 04-14-2022 End: 04-14-[address] Nicolas Cardenas Work Phone: [facility] Start: 04-01-2022 End: 04-01-[address] Nicolas Cardenas Work Phone: [facility] Work Phone: Start: 04-01-2022 End: 04-01-[address] Nicolas Cardenas Work Phone: [facility] Start: 03-16-2022 End: 03-16-[address] Nicolas Cardenas Work Phone: [facility] Start: 02-24-2022 End: 02-24-[address] Nicolas Cardenas Work Phone: [facility] Start: 01-07-2022 End: 01-07-[address] Nicolas Cardenas Work Phone: [facility] Start: 01-05-2022 End: 01-05-[address] Nicolas Cardenas Work Phone: [facility] Start: 12-24-2021 End: 12-24-[address] Nicolas Cardenas Work Phone: [facility] Work Phone: Start: 12-24-2021 End: 12-24-[address] Nicolas Cardenas Work Phone: [facility] Start: 12-24-[address] Nicolas Cardenas Work Phone: [facility] Start: 12-15-2021 End: 12-15-[address] Nicolas Cardenas Work Phone: [facility] Start: 12-10-2021 End: 12-10-[address] Nicolas Cardenas Work Phone: [facility] Work Phone: Start: 12-10-2021 End: 12-10-[address] Nicolas Cardenas Work Phone: [facility] Start: 12-10-[address] Nicolas Cardenas Work Phone: [facility] Start: 12-09-2021 Telephone encounter Nicolas gutierrez MD Work Phone: [facility] [place] Comment on above: form dropping off Start: 11-26-2021 End: 11-26-[address] Nicolas Cardenas Work Phone: [facility] Work Phone: Start: 11-26-2021 End: 11-26-[address] Nicolas Cardenas Work Phone: [facility] Start: 11-12-[address] Nicolas Cardenas Work Phone: [facility] Start: 10-29-[address] Nicolas Cardenas Work Phone: [facility] Start: 10-23-2021 Telephone encounter Nicolas gutierrez MD Work Phone: [facility] [place] Comment on above: Patient Update Start: 10-22-2021 Non-patient / Non-visit Dr. Nicolas Cardenas Work Phone: [facility] Start: 10-21-2021 Non-patient / Non-visit Dr. Nicolas Cardenas Work Phone: [facility] Start: 10-20-2021 Non-patient / Non-visit Dr. Nicolas Cardenas Work Phone: [facility] Start: 10-20-2021 End: 10-22-2021 Evaluation and management of inpatient Dr. Nicolas Cardenas Work Phone: [facility] 3 Start: 10-20-2021 End: 10-22-[address] Nicolas Cardenas Work Phone: 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 David Miramontes MD Work Phone: Start: 07-14-2024 BLADDER SCAN Diana La ne [place] POST COMMANDER.FACILITY DESIGNER Work Phone: Start: 07-14-2024 Urnls dip stick/tabl et rgnt auto w/o microscopy Diana Andres [place] WILKINSN.FACILITY DESIGNER Work Phone: Start: 05-30-[address] [...] Influenza vaccination Influenz a Vaccine (Season Ended) [facility] Start: 10-27-2024 End: 10-27-[address] [facility] Start: 10-27-2024 Brain/Head without Contrast Brain/Head without Contrast [facility] Start: 10-27-2024 CT Unspecified body region WO contrast [facility] Start: 09-25-2024 Microbial culture, routine Wound Cul ture [facility] Start: 09-25-2024 [facility] Start: 04-22-2024 DIABETES SCREEN DIABETES SCREEN [facility] Start: 04-22-2024 Diabetes Screening Diabetes Screenin g [facility] Start: 03-01-2024 Advance Directive Discussion Advance Directive Discussion [facility] Start: 10-31-2023 Covid-19 Vaccine ( season) Covid-19 Vaccine ( season) [facility] Start: 10-30-2022 Influenza vaccination INFLUENZ A (Season Ended) [facility] Start: 05-12-2022 SHINGRIX VACCINE (2 of 3) DUMAS GRIX VACCINE (2 of 3) [facility] Comment on above: Postponed from 07/18 (Declined at this time) Start: 03-01-2022 ADVANCE DIRECTIVE DISCUSSION ADVANCE DIRECTIVE DISCUSSION [facility] Start: 11-24-2021 COVID-19 VACCINE (5 - Booster for Pfizer series) COVID-19 VACCINE (5 - Booster for Pfizer series) [facility] Start: 10-30-2021 Influenza vaccination INFLUENZA (#1) [facility] Start: 10-22-2021 Patient discharge [facility] Work Phone: Start: 10-21-2021 Following clinical p athway protocol [facility] Work Phone: Start: 10-21-2021 Assessment of risk o f venous thromboembolism [facility] Work Phone: Start: 10-21-2021 Insertion of cathete r into peripheral vein [facility] Work Phone: Start: 10-21-2021 Oxygen therapy [facility] Work Phone: Start: 10-21-2021 Providing care accor ding to standard [facility] Work Phone: Start: 10-21-2021 Provision of activit y privileges [facility] Work Phone: Start: 10-21-2021 Referral to occupati onal therapist [facility] Work Phone: Start: 10-21-2021 Referral to service [facility] Work Phone: Start: 10-21-2021 [facility] Work Phone: Start: 10-21-2021 Verification routine [facility] Work Phone: Start: 10-21-2021 CT angiography of he ad and neck CTA Head AND Neck W/ Contrast [facility] Work Phone: Start: 10-21-2021 CTA Head vessels and Neck vessels W contrast IV [facility] Work Phone: Start: 10-20-2021 [facility] Work Phone: Start: 10-20-2021 Admission procedure [facility] Work Phone: Start: 09-11-2021 COVID-19 VACCINE (4 - Booster for Pfizer series) COVID-19 VACCINE (4 - Booster for Pfizer series) [facility] Start: 08-23-2021 Urine microalbumin profile [facility] Comment on above: Postponed from 07/15 (Declined at this time) Start: 2014 RSV Vaccine (1 - 1-d ose 75+ series) RSV Vaccine (1 - 1-dose 75+ series) [facility] Start: 07-18-2013 SHINGRIX VACCINE (2 of 3) DUMAS GRIX VACCINE (2 of 3) [facility] Start: 07-15-2010 Urine microalbumin profile [facility] CYTOLOGY NON-DERMATOLOGY SALES REPRESENTATIVE CYTOLOGY NON-GY N Lab Routine Gross hematuria Ordered: 07/14/2024 [facility] Work Phone: Comment on above: Ordered: 07/14/2024 Patient Education [facility] Work Phone: Patient referral [facility] Work Phone: [facility] Immunizations Immunization Date Immunization Notes Care Provider Fa cili 09-29-2021 COVID-19 vaccine, ag e 12+ yr (PFIZER-BIONTECH - LANGE TOP) Nicolas Cardneas MD Work Phone: [facility] Work Phone: 05-12-2021 COVID-19 vaccine, ag e 12+ yr (PFIZER-BIONTECH - LANGE TOP) Nicolas Cardenas MD Work Phone: [facility] 03-31-2021 influenza, high-dose , quadrivalent vaccine (FLUZONE HIGH DOSE QUADRIVALENT) Nicolas Cardenas MD Work Phone: [facility] Work Phone: 03-31-2021 influenza virus vaccine, unspecified formulation Diana Arango POST COMMANDER.FACILITY DESIGNER Work Phone: [facility] 06-17-2020 COVID-19 vaccine, ag e 12+ yr (PFIZER-BIONTECH - PURPLE TOP) Nicolas Cardenas MD Work Phone: [facility] Work Phone: 05-27-2020 COVID-19 vaccine, ag e 12+ yr (PFIZER-BIONTECH - PURPLE TOP) Nicolas Cardenas MD Work Phone: [facility] Work Phone: 04-22-2020 influenza, high-dose , quadrivalent vaccine (FLUZONE HIGH DOSE QUADRIVALENT) Nicolas Cardenas MD Work Phone: [facility] Work Phone: 01-19-2019 influenza, high dose seasonal, preservative-free Nicolas Cardenas MD Work Phone: [facility] 02-03-2018 influenza, high dose seasonal, preservative-free Nicolas Cardenas MD Work Phone: [facility] 01-18-2017 influenza, high dose seasonal, preservative-free Nicolas Cardenas MD Work Phone: [facility] 12-27-2015 influenza, high dose seasonal, preservative-free Nicolas Cardenas MD Work Phone: [facility] 12-26-2014 influenza, high dose seasonal, preservative-free Nicolas Cardenas MD Work Phone: [facility] 06-26-2014 pneumococcal conjuga te vaccine, 13 valent Nicolas Cardenas MD Work Phone: [facility] 12-28-2013 influenza, seasonal, injectable Nicolas Cardenas MD Work Phone: [facility] 05-23-2013 zoster vaccine, live Nicolas Cardenas MD Work Phone: [facility] 07-14-2010 tetanus and diphther ia toxoids, adsorbed, preservative free, for adult use (2 Lf of tetanus toxoid and 2 Lf of diphtheria toxoid) Nicolas Cardenas MD Work Phone: [facility] Work Phone: 01-13-2006 pneumococcal polysaccharide vaccine, 23 valent Nicolas Cardenas MD Work Phone: [facility] Payers Date Payer Category Payer Self-pay [id number] 2013 Private Health Insurance [facility] AARP SUPPLEMENT [id number] 2013-Present [phone] [address] [place] [address] Indemnity [id number] 2013 Private Health Insurance [id number] 2013 Unknown [id number] 2004 Medicare MEDICARE MEDICAR E A AND B [id number] 2004-Present [phone] [address] [address] [place] [address] Medicare [id number] 2004 Medicare [id number] [id number]. [id number] 2004 Medicare [id number] Medicaid [id number] Private Health Insurance [facility] [id number] Unknown [id number] 2.840.1.176669.3.579.2. 462 Unknown [id number] 2.16840.1.834261.3.579.2. 462 Unknown [id number] 2.16840.1.990645.3.579.2. 462 Unknown [id number] 2.16.840.1.012639.3.579.2. 462 Unknown [id number] 2.16.840.1.011319.3.579.2. 462 Unknown [id number] 2.16840.1.455251.3.579.2. 462 Unknown [id number] 2.16.840.1.665107.3.579.2. 462 Unknown [id number] 2.16.840.1.623344.3.579.2. 462 Unknown [id number] 2.16.840.1.213486.3.579.2. 462 Unknown [id number] 2.16.840.1.002657.3.579.2. 462 Unknown [id number] 2.16.840.1.631832.3.579.2. 462 Unknown [id number] 2.16.840.1.568238.3.579.2. 462 Unknown [id number] 2.16840.1.826005.3.579.2. 462 Unknown [id number] 2.16.840.1.428874.3.579.2. 462 Unknown [id number] 2.840.1.985432.3.579.2. 462 Unknown [id number] 2.16840.1.425558.3.579.2. 462 Unknown [id number] 2.16840.1.762254.3.579.2. 462 Unknown [id number] 2.16840.1.907092.3.579.2. 462 Unknown [id number] 2.16.840.1.974646.3.579.2. 462 Unknown [id number] 2.16.840.1.731942.3.579.2. 462 Unknown [id number] 2.16.840.1.273035.3.579.2. 462 Unknown [id number] 2.16.840.1.090846.3.579.2. 462 Unknown [id number] 2.16.840.1.943684.3.579.2. 462 Unknown [id number] 2.16.840.1.894157.3.579.2. 462 Unknown [id number] 2.16840.1.408441.3.579.2. 462 Unknown [id number] 2.16.840.1.353767.3.579.2. 462 Unknown [id number] 2.16.840.1.697689.3.579.2. 462 Unknown [id number] 2.16.840.1.862362.3.579.2. 462 Unknown [id number] 2.16.840.1.461938.3.579.2. 462 Unknown [id number] 2.16.840.1.632439.3.579.2. 462 Unknown [id number] 2.16.840.1.378376.3.579.2. 462 Unknown [id number] 2.16.840.1.470121.3.579.2. 462 Unknown [id number] 2.16.840.1.995079.3.579.2. 462 Unknown [id number] 2.16.840.1.436015.3.579.2. 462 Unknown [id number] 2.16.840.1.796564.3.579.2. 462 Unknown [id number] 2.16.840.1.301241.3.579.2. 462 Unknown [id number] 2.16.840.1.819121.3.579.2. 462 Unknown [id number] 2.16.840.1.006464.3.579.2. 462 Unknown [id number] 2.16.840.1.752447.3.579.2. 462 Unknown [id number] 2.16.840.1.313919.3.579.2. 462 Unknown [id number] 2.16.840.1.554808.3.579.2. 462 Unknown [id number] 2.16.840.1.323122.3.579.2. 462 Unknown [id number] 2.16.840.1.611344.3.579.2. 462 Unknown [id number] 2.16.840.1.506385.3.579.2. 462 Unknown [id number] 2.16.840.1.184026.3.579.2. 462 Unknown [id number] 2.16.840.1.759304.3.579.2. 462 Unknown [id number] 2.16840.1.688146.3.579.2. 462 Unknown [id number] 2.16.840.1.387154.3.579.2. 462 Unknown [id number] 2.16.840.1.283707.3.579.2. 462 Unknown [id number] 2.16840.1.896428.3.579.2. 462 Unknown [id number] 2.16840.1.471221.3.579.2. 462 Unknown [id number] 2.840.1.444195.3.579.2. 462 Unknown [id number] 2.840.1.167389.3.579.2. 462 Social History Date Type Detail Facility Start: 04-22-2012 End: 10-27-2024 Tobacco smoking status NHIS Ex-smoker [facility] Start: [birth year]-01-1949 End: 03-01-1959 History of tobacco use Current smoker [facility] Start: 03-01-1949 End: 03-01-1959 History of tobacco use Cigarette Smoker [facility] Start: 05-12-2021 End: 07-14-2024 Alcohol intake Current non-drinker of alcohol (finding) [facility] Start: 1940 Sex Assigned At Not on file C [facility] Start: 09-19-2021 End: 09-29-2021 Exposure to SARS-CoV-2 (event) Not sure [facility] Work Phone: Start: 10-21-2021 End: 12-02-2022 Tobacco smoking status LAIS Unknown if ever smoked [facility] Start: 1940 Sex Assigned At Male [facility] Start: 04-22-2012 End: 07-14-2024 Cigarettes smoked current (pack per day) - Reported 1 [facility] Start: 04-22-2012 Tobacco use and exposure Smokeless tobacco non-user [facility] Work Phone: Start: 06-05-2024 End: 06-21-2024 Sex Male (finding) [facility] Start: 02-03-2018 End: 07-14-2024 Tobacco use panel [facility] Adult Depression Screening Assessment 0 [facility] Goals Date Patient Goal Desired Activity /State Functional Status Date Assessment Result Facility 10-22-2021 Functional status Bedrest [facility] Work Phone: 06-26-2014 Are you deaf, or do you have serious difficulty hearing No 06/26/2014 10:08 AM EDT Anjelica Perez Cma [facility] 06-26-2014 Are you blind, or do you have serious difficulty seeing, even when wearing glasses No 06/26/2014 10:08 AM EDAnjelica Moore Cma [facility] 06-26-2014 Do you have serious difficulty walking or climbing stairs No 06/26/2014 10:08 AM EDT Anjelica Perez Cma [facility] 06-26-2014 Do you have difficul ty dressing or bathing No 06/26/2014 10:08 AM EDT Anjelica Perez Cma [facility] 06-26-2014 Because of a physica l, mental, or emotional condition, do you have difficulty doing errands alone such as visiting a physician's office or shopping No 06/26/2014 10:08 AM EDAnjelica Moore Cma [facility] Mental Status Date Assessment Result Facility 10-22-2021 Cognitive function Voice/Name [facility] Work Phone: 10-20-2021 Cognitive function Appropriate;Coopermarco a starks [facility] Work Phone: 06-26-2014 Because of a physica l, mental, or emotional condition, do you have serious difficulty concentrating, remembering, or making decisions No 06/26/2014 10:08 AM EDAnjelica Moore Cma [facility] Clinical Notes 09-16-2018 to 10-27-2024 Telephone Encounter - Stefany Mcclure RN - 07/17/2024 11:17 AM EDTTelephone Encounter - Stefany Mcclure RN - 07/17/2024 11:17 AM EDTTelephone Encounter - Stefany Mcclure RN - 07/17/2024 11:14 AM EDT Note Date & Type Note Facility 10-27-2024 Radiology Diagnostic study note [facility] Imaging Services [address] [place] [address] Brain/Head without Contrast MR#: [id number] Acct: [id number] Name: KEL DILLARD Rep #: [id number] : 1940 M [id number] From: Krzysztof Mariano MD PCP: Dr. David Miramontes MD Status: R EG ER Study:Brain/Head without Contrast Date of Exa m: 10/27/24 Exam# [id number] Ordering Dr: Ira Zarate PROCEDURE: CT BRAIN/HEAD WITHOUT CONTRAST 10/27/2024 REASON FOR EXAM: HEAD INJURY TECHNIQUE: Procedure Code: CTBR Modality: CT Procedure: BRAIN/HEAD WITHOUT CONTRAST Coronal and Sagittal reconstruction series were provided. One or more dose reduction techniques were used (e.g., Automated exposure control, adjustment of the mA and/or kV according to patient size, use of iterative reconstruction technique. RADIATION DOSE SUMMARY: CTDlvol: 44.99 mGy DLP: 796.11 mGycm COMPARISON: 10/22/2021 FINDINGS: No acute intracranial hemorrhage, extra-axial collection, mass effect or evidence of acute infarct. Mild generalized brain parenchymal volume loss and chronic microangiopathic changes. Unremarkable orbits. Atherosclerotic calcification along the carotid siphons. Mild right frontal scalp hematoma/contusion. No acute skull base or calvarial fracture. Well-aerated paranasal sinuses and bilateral mastoid air cells. CT/Brain/Head without Contrast IMPRESSION: 1. No acute intracranial abnormality. 2. Mild right frontal scalp hematoma/contusion. No calvarial fracture. 3. Mild volume loss and chronic microangiopathic changes. Reading Location: [id number] CC: Dr. David Miramontes MD; ERWIN Phillip ~ Linter Drier Operator: Signed [facility] 07-17-2024 Telephone encounter Note Spoke with patient's son and notified of information as per provider. He states that they are going to hold off on having tests listed below,. He will let us know if he needs anything or wants test done in the future. Verbalized understanding and has no further questions. Stefany Mcclure RN [facility] Work Phone: 07-17-2024 Miscellaneous Notes Spoke [...] if he wishes. documented in this encounter [facility] 07-17-2024 Telephone encounter Note ----- Message from Diana Arango APRN.CNP sent at 07/17/2024 11:12 AM EDT ----- Please notify patient/patient's son that patient's cytology came back negative for high-grade urothelial carcinoma. This is great news! Given his mentation and mobility -- we could hold off on CT/cysto if he wishes. [place] [id number] History of Present illness Narrative Images from the original note were not included. [facility]ly [facility] - [facility] UR[facility] VISIT 07/14/2024 8:51 AM [...] End Date , Taking? , Authorizing Provider Provider Ccalvaro Medication pyridoxine hcl(VITAMIN B-6 100 MG TAB), [...] (no units) Date Value 08/12/2018 Negative Specific [place], Ur (no units) Date Value 08/12/2018 1.018 [...] intervention based on that result. - CYTOLOGY NON-DERMATOLOGY SALES REPRESENTATIVE - Call son with results. Will make treatment plan decision from there. Follow-up as needed. Diana Arango APRN.FACILITY DESIGNER documented in this encounter [facility] 07-14-2024 Note HNO ID: [id number] Author: DIANA ARANGO APRN.CNP Service: ? Author Type: Nurse Practitioner Type: Progress Notes Filed: 07/14/2024 09:11 Note Text: [facility] - Patrick UROL JUAN NEW PATIENT [...] at baseline. Psychiatric: (more content not included)... [facility] 06-05-2022 Note HNO ID: [id number] Author: Yoli Garner Service: ? Author Type: ? Type: Progress Notes Filed: 06/05/2022 2:00 PM Note Text: POPULATION HEALTH NAVIGATION OUTREACH Action/ 1st attempt: Spoke to patient's daughter. Patient now resides at [facility] and receives medical care there. [...] Yoli Garner June 05, 2022 1:58 PM [facility] 06-05-2022 Note Patient Outreach (NE TNAV) ---- KEL DILLARD ([id number]) 1940 M Date Time Provider Department 06/05/22 YOLI GARNER During your visit today, we recorded the following information about you: Yoli Garner 06/05/2022 2:00 PM Signed POPULATION HEALTH NAVIGATION OUTREACH Action/I 1st attempt: Spoke to patient's daughter. Patient now resides at [facility] and receives medical care there. [...] Encounter Status:Closed by YOLI GARNER on 06/05/22 [facility] 06-05-2022 History of Present illness Narrative POPULATION HEALTH NAVIGATION OUTREACH Action/ 1st attempt: Spoke to patient's daughter. Patient now resides at [facility] and receives medical care there. [...] DIRECTIVE DISCUSSION due on 03/01/2022 Navigation Signature: Yloi Garner June 05, 2022 1:58 PM documented in this encounter [facility] 12-11-2021 Miscellaneous Notes Forms pts son brought in have been sent to medical records. Pts son notified. He can pick them up there. Son (Jhonny) calls in and provider message reviewed. Son asking if form brought in can be picked back up in Medical Records. Please contact Jhonny at [phone]. Preethi Delgadillo RN I have not seen him since hospital stay and he is now under the [place] attending physician's care. It is more appropriate for the [place] attending physician to do another form. More statements need corrected/updated Form to pcp to review. Patient son Jhonny calling said PCP completed expert evaluation form on 09/29 for guardianship and music video producer said question number 11 needs revised. Son Jhonny said 2 weeks after form was done father had fall and was taken to [facility] then sent to [facility] for rehab. Now father is in memory care unit, his dementia is at 6 out of 7. Son is going to drop off new form to be competed, since father can not care for himself or do anything for himself. Please advise documented in this encounter [facility] 10-23-2021 Miscellaneous Notes Per [facility] discharge info pt was discharged to [facility] 10/22/21. documented in this encounter [facility] 09-29-2021 Note HNO ID: [id number] Author: Nicolas Cardenas MD Service: ? Author Type: Physician Type: Progress Notes Filed: 09/29/2021 6:08 PM Note Text: This note was created using Tripviriter. Subjective Kel Dillard is a 81 year old male. He was here with his son. He was home bound due to memory loss and cognitive deficits. He gets lost if he wandered outside. Son was here with form requesting guardianship. This was part of POA he was establishing. They were exploring mcc placement in anticipation of need, but Kel [...] willingness to follow recommendations. Nicolas Cardenas MD [facility] 09-29-2021 Note HNO ID: [id number] Author: Nicolas Cardenas MD Service: ? Author [...] current specialists seen: Pulmonary- Dr. Valle Cardiology- [facility] Charge Account Authorizer- Barb End of Live Planning discussed including [...] and Tdap at pharmacy Nicolas Cardenas MD [facility] 09-29-2021 History of Present illness Narrative [...] POA he was establishing. They were exploring mcc placement in anticipation of need, but Kel [...] current specialists seen: Pulmonary- Dr. Valle Cardiology- [facility] Charge Account Authorizer- Barb End of Live Planning discussed including [...] Nicolas Cardenas MD documented in this encounter [facility] 07-15-2021 Miscellaneous Notes Yesenia, Admissions staff member at [facility] calling to state patient's son Jhonny has reached out to them to request patient possibly be admitted into their memory care unit due to cognition concerns. Yesenia is requesting notes from patient's last OV be faxed to them at [phone]. This nurse contacted son Jhonny to verify the request and he confirmed it was ok to share requested information. Information faxed as requested. Karen Matias RN documented in this encounter [facility] 09-16-2018 History of Past i llness [...] of this encounter (statuses as of 07/15/2021) [facility] History of Past illness Narrative* Problem [...] of this encounter (statuses as of 09/29/2021) [facility] History of Past illness Narrative* Problem [...] of this encounter (statuses as of 10/23/2021) [facility] History of Past illness Narrative* Problem [...] of this encounter (statuses as of 12/11/2021) [facility] History of Past illness Narrative* Problem [...] of this encounter (statuses as of 06/05/2022) [facility] note* Diagnosis Medicare annual wellness visit, subsequent- Primary Routine general medical examination at a health care facility Cognitive impairment Unspecified persistent mental disorders due to conditions classified elsewhere Essential tremor Essential and other specified forms of tremor Essential hypertension, benign Need for COVID-19 vaccine 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 Work Phone: Evaluation noteNo assessment information available [facility] Work Phone: Evaluation note* Diagnosis Gross hematuria- [facility] The CT scan showed no broken bones or internal bleeding. Ice and take Tylenol every 6 hours as needed.[facility] Work Phone: Reason for referral (narrative)No reason for referral information availableWOhio[facility] Work Phone: Advance Directives Documents on File Type Date Recorded Patient Spinner Operator Expl anation Advance Directive(s) 04/29/2021 2:28 PM Advance Directive(s) 09/08/2016 1:42 PM Advance Directive(s) 08/31/2016 10:18 AM Advance Directive(s) 04/09/2016 12:30 PM Advance Directive(s) 04/06/2016 10:07 AM Advance Directive(s) 10/09/2011 11:10 AM Advance Directive Response Recorded Date/ Time Advance Directives No October 10:42am Living Will No October 20 8:26pm Power of Architectural Wood Model Maker No October 20 8:26pm Advance Directive Response Recorded Date/ Time Advance Directives No October 10:42am Living Will No October 21 1:16am Power of Architectural Wood Model Maker No October 21 1:16am Documents on File Type Date Recorded Patient Spinner Operator Expl anation Advance Directive(s) 04/29/2021 2:28 PM Advance Directive(s) 10/09/2011 11:10 AM Advance Directive Response Recorded Date/ Time Advance Directives No April 02, 2022 2:41pm Living Will No April 02 2:41pm Power of Architectural Wood Model Maker No April 02, 2022 2:41pm Advance Directive Response Recorded Date/ Time Advance Directives No April 02, 2022 3:41pm Living Will No April 02 3:41pm Power of Architectural Wood Model Maker No April 02, 2022 3:41pm Advance Directive Response Recorded Date/ Time Advance Directives No December 02, 2022 9:40am Living Will No December 02 9:40am Power of Architectural Wood Model Maker No December 02 9:40am Advance Directive Response Recorded Date/ Time Advance Directives No January 06, 2024 9:19am Advance Directive Response Recorded Date/ Time Advance Directives No September 13 11:44am Advance Directive Response Recorded Date/ Time Advance Directives No September 15 12:10pm Advance Directive Response Recorded Date/ Time Advance Directives No September 15 1:51pm Advance Directive Response Recorded Date/ Time Advance Directives No September 15 1:51pm Do you have a Healthcare Power of Architectural Wood Model Maker? Yes October 27, 2024 8:39pm Chief Complaint and Reason for Visit Chief [...] DEBILITY FALL, DEBILITY LAB WORK LAB WORK RETIREMENT LAB WORK MONTHLY EXAM Chief Complaint FALL, DEBILITY FALL, DEBILITY FALL, DEBILITY FALL, DEBILITY LAB WORK LAB WORK RETIREMENT LAB WORK RETIREMENT LABWORK MONTHLY EXAM Chief Complaint FALL, DEBILITY FALL, DEBILITY FALL, DEBILITY FALL, DEBILITY LAB WORK LAB WORK RETIREMENT LAB WORK RETIREMENT LABWORK MONTHLY EXAM RETIREMENT LAB WORK Chief Complaint RETIREMENT LAB WOR K MONTHLY EXAM RETIREMENT LAB WORK MONTHLY EXAM MONTHLY EXAM RETIREMENT LAB WORK Chief Complaint MONTHLY EXAM RETIREMENT LAB WORK MONTHLY EXAM new problem MONTHLY EXAM RETIREMENT LABWORK Chief Complaint MONTHLY EXAM RETIREMENT LAB WORK MONTHLY EXAM ANNUAL EXAM MONTHLY EXAM RETIREMENT LAB WORK Chief Complaint RETIREMENT LAB WOR K NEW CONCERN MONTHLY EXAM LABWORK Chief Complaint Admit Date Pacer Check Remote February 14, 2024 12:11am MONTHLY EXAM February 15, 2024 9:13pm MONTHLY EXAM March 02, 2024 11 :09am NEW CONCERN March 13, 2024 1 :23pm RETIREMENT LAB WORK April 04, 2024 5:00am RETIREMENT LAB WORK April 07, 2024 4:00am RETIREMENT LAB WORK April 07, 2024 10:45am MONTHLY EXAM April 11, 2024 12:58pm RETIREMENT LAB WORK April 13 5:00am LABWORK April [...] NEW CONCERN March 13, 2024 1 :23pm RETIREMENT LAB WORK April 04, 2024 5:00am RETIREMENT LAB WORK April 07, 2024 4:00am RETIREMENT LAB WORK April 07, 2024 10:45am MONTHLY EXAM April 11, 2024 12:58pm RETIREMENT LAB WORK April 13 5:00am LABWORK April [...] NEW CONCERN March 13, 2024 1 :23pm RETIREMENT LAB WORK April 04, 2024 5:00am RETIREMENT LAB WORK April 07, 2024 4:00am RETIREMENT LAB WORK April 07, 2024 10:45am MONTHLY EXAM April 11, 2024 12:58pm RETIREMENT LAB WORK April 13 5:00am LABWORK April [...] NEW CONCERN March 13, 2024 1 :23pm RETIREMENT LAB WORK April 04, 2024 5:00am RETIREMENT LAB WORK April 07, 2024 4:00am RETIREMENT LAB WORK April 07, 2024 10:45am MONTHLY EXAM April 11, 2024 12:58pm RETIREMENT LAB WORK April 13 5:00am LABWORK April [...] TOES PVD May 30, 2024 8:36 am RETIREMENT LAB WORK June 05, 2024 4: 00am Chief Complaint Admit Date RETIREMENT LAB WORK April 04, 2024 5:00am RETIREMENT LAB WORK April 07, 2024 4:00am RETIREMENT LAB WORK April 07, 2024 10:45am MONTHLY EXAM MD April 11, 2024 12:58pm RETIREMENT LAB WORK April 13 5:00am LABWORK April [...] TOES PVD May 30, 2024 8:36 am RETIREMENT LAB WORK June 05, 2024 4: 00am [...] TOES PVD May 30, 2024 8:36 am RETIREMENT LAB WORK June 05, 2024 4: 00am LABWORK June 23, 2024 5:0 0am LABWORK July 21, 2024 5:00a m RETIREMENT LAB WORK August 01, 2024 5:0 0am [...] TOES PVD May 30, 2024 8:36 am RETIREMENT LAB WORK June 05, 2024 4: 00am LABWORK June 23, 2024 5:0 0am MONTHLY EXAM July 18, 2024 3:15p m LABWORK July 21, 2024 5:00a m RETIREMENT LAB WORK August 01, 2024 5:0 0am [...] TOES PVD May 30, 2024 8:36 am RETIREMENT LAB WORK June 05, 2024 4: 00am LABWORK June 23, 2024 5:0 0am MONTHLY EXAM July 18, 2024 3:15p m NEW PROBLEM/CONCERN July 20, 2024 3:45p m LABWORK July 21, 2024 5:00a m RETIREMENT LAB WORK August 01, 2024 5:0 0am [...] TOES PVD May 30, 2024 8:36 am RETIREMENT LAB WORK June 05, 2024 4: 00am LABWORK June 23, 2024 5:0 0am MONTHLY EXAM July 18, 2024 3:15p m NEW PROBLEM/CONCERN July 20, 2024 3:45p m LABWORK July 21, 2024 5:00a m RETIREMENT LAB WORK August 01, 2024 5:0 0am [...] TOES PVD May 30, 2024 8:36 am RETIREMENT LAB WORK June 05, 2024 4: 00am LABWORK June 23, 2024 5:0 0am MONTHLY EXAM July 18, 2024 3:15p m NEW PROBLEM/CONCERN July 20, 2024 3:45p m LABWORK July 21, 2024 5:00a m RETIREMENT LAB WORK August 01, 2024 5:0 0am [...] TOES PVD May 30, 2024 8:36 am RETIREMENT LAB WORK June 05, 2024 4: 00am LABWORK June 23, 2024 5:0 0am MONTHLY EXAM July 18, 2024 3:15p m NEW PROBLEM/CONCERN July 20, 2024 3:45p m LABWORK July 21, 2024 5:00a m RETIREMENT LAB WORK August 01, 2024 5:0 0am [...] TOES PVD May 30, 2024 8:36 am RETIREMENT LAB WORK June 05, 2024 4: 00am LABWORK June 23, 2024 5:0 0am NEW CONCERN July 04, 2024 4:35pm MONTHLY EXAM July 18, 2024 3:15p m NEW PROBLEM/CONCERN July 20, 2024 3:45p m LABWORK July 21, 2024 5:00a m RETIREMENT LAB WORK August 01, 2024 5:0 0am LABWORK August 02, 2024 5:00a m MONTHLY EXAM August 15, 2024 7:30 pm Pacer Check Remote August 21, 2024 4:29 am NEW CONCERN August 21, 2024 3:15 pm RETIREMENT LAB WORK August 22, 2024 5: 00am NEW CONCERN August 25, 2024 2:15 pm LABWORK August 31, 2024 5:00a m RETIREMENT LAB WORK September 07, 2024 5: 00am Chief Complaint Admit Date LABWORK June 23, 2024 5:0 0am NEW CONCERN July 04, 2024 4:35pm MONTHLY EXAM July 18, 2024 3:15p m NEW PROBLEM/CONCERN July 20, 2024 3:45p m LABWORK July 21, 2024 5:00a m RETIREMENT LAB WORK August 01, 2024 5:0 0am LABWORK August 02, 2024 5:00a m MONTHLY EXAM August 15, 2024 7:30 pm Pacer Check Remote August 21, 2024 4:29 am NEW CONCERN August 21, 2024 3:15 pm RETIREMENT LAB WORK August 22, 2024 5: 00am NEW CONCERN August 25, 2024 2:15 pm Monthly Exam August 29, 2024 4:04p m LABWORK August 31, 2024 5:00a m RETIREMENT LAB WORK September 07, 2024 5: 00am Chief Complaint Admit Date LABWORK June 23, 2024 5:0 0am NEW CONCERN July 04, 2024 4:35pm MONTHLY EXAM July 18, 2024 3:15p m NEW PROBLEM/CONCERN July 20, 2024 3:45p m LABWORK July 21, 2024 5:00a m RETIREMENT LAB WORK August 01, 2024 5:0 0am LABWORK August 02, 2024 5:00a m MONTHLY EXAM August 15, 2024 7:30 pm Pacer Check Remote August 21, 2024 4:29 am NEW CONCERN August 21, 2024 3:15 pm RETIREMENT LAB WORK August 22, 2024 5: 00am NEW CONCERN August 25, 2024 2:15 pm Monthly Exam August 29, 2024 4:04p m LABWORK August 31, 2024 5:00a m RETIREMENT LAB WORK September 07, 2024 5: 00am New Concern September 19, 2024 7:48 am Chief Complaint Admit Date LABWORK June 23, 2024 5:0 0am NEW CONCERN July 04, 2024 4:35pm MONTHLY EXAM July 18, 2024 3:15p m NEW PROBLEM/CONCERN July 20, 2024 3:45p m LABWORK July 21, 2024 5:00a m RETIREMENT LAB WORK August 01, 2024 5:0 0am LABWORK August 02, 2024 5:00a m MONTHLY EXAM August 15, 2024 7:30 pm Pacer Check Remote August 21, 2024 4:29 am NEW CONCERN August 21, 2024 3:15 pm RETIREMENT LAB WORK August 22, 2024 5: 00am NEW CONCERN August 25, 2024 2:15 pm Monthly Exam August 29, 2024 4:04p m LABWORK August 31, 2024 5:00a m RETIREMENT LAB WORK September 07, 2024 5: 00am New Concern September 19, 2024 7:48 am New Concern September 25, 2024 4:26 pm Chief Complaint Admit Date NEW CONCERN July 04, 2024 4:35pm MONTHLY EXAM July 18, 2024 3:15p m NEW PROBLEM/CONCERN July 20, 2024 3:45p m LABWORK July 21, 2024 5:00a m RETIREMENT LAB WORK August 01, 2024 5:0 0am LABWORK August 02, 2024 5:00a m MONTHLY EXAM August 15, 2024 7:30 pm Pacer Check Remote August 21, 2024 4:29 am NEW CONCERN August 21, 2024 3:15 pm RETIREMENT LAB WORK August 22, 2024 5: 00am NEW CONCERN August 25, 2024 2:15 pm Monthly Exam August 29, 2024 4:04p m LABWORK August 31, 2024 5:00a m RETIREMENT LAB WORK September 07, 2024 5: 00am New Concern September 19, 2024 7:48 am RETIREMENT LAB WORK September 25, 2024 12 :00pm New Concern September 25, 2024 4:26 pm MONTHLY EXAM September 29, 2024 11: 44am Chief Complaint Admit Date NEW CONCERN July 04, 2024 4:35pm MONTHLY EXAM July 18, 2024 3:15p m NEW PROBLEM/CONCERN July 20, 2024 3:45p m LABWORK July 21, 2024 5:00a m RETIREMENT LAB WORK August 01, 2024 5:0 0am LABWORK August 02, 2024 5:00a m MONTHLY EXAM August 15, 2024 7:30 pm Pacer Check Remote August 21, 2024 4:29 am NEW CONCERN August 21, 2024 3:15 pm RETIREMENT LAB WORK August 22, 2024 5: 00am NEW CONCERN August 25, 2024 2:15 pm Monthly Exam August 29, 2024 4:04p m LABWORK August 31, 2024 5:00a m RETIREMENT LAB WORK September 07, 2024 5: 00am New Concern September 19, 2024 7:48 am RETIREMENT LAB WORK September 25, 2024 12 :00pm New Concern September 25, 2024 4:26 pm MONTHLY EXAM September 29, 2024 11: 44am fall, head injury, on thinners October 272024 8:34pm Family History Relationship Condition Age at Onset Recorded Date/T [...] or prosecute any alcohol or drug abuse patient.[facility] the event this information is protected by the Federal Confidentiality of Alcohol and Drug Abuse Patient Records regulations: The Federal rules restrict any use of the information to criminally investigate or prosecute any alcohol or drug abuse patient.[facility] the event this information is protected by the Federal Confidentiality of Alcohol and Drug Abuse Patient Records regulations: The Federal rules restrict any use of the information to criminally investigate or prosecute any alcohol or drug abuse patient.[facility] the event this information is protected by the Federal Confidentiality of Alcohol and Drug Abuse Patient Records regulations: The Federal rules restrict any use of the information to criminally investigate or prosecute any alcohol or drug abuse patient.[facility] the event this information is protected by the Federal Confidentiality of Alcohol and Drug Abuse Patient Records regulations: The Federal rules restrict any use of the information to criminally investigate or prosecute any alcohol or drug abuse patient.[facility] the event this information is protected by the Federal Confidentiality of Alcohol and Drug Abuse Patient Records regulations: The Federal rules restrict any use of the information to criminally investigate or prosecute any alcohol or drug abuse patient.[facility] the event this information is protected by the Federal Confidentiality of Alcohol and Drug Abuse Patient Records regulations: The Federal rules restrict any use of the information to criminally investigate or prosecute any alcohol or drug abuse patient.[facility] Reason for Visit (unrecogniz ed section [...] 2024 End: April 19, 2024 Marimar Zimmer MITTEN SEWER, MITTEN SEWER-C Attending Provider Active Start: April 19, 2024 End: April 19, 2024 Team Status: Inactive Member Role Status Dates Dr. David Miramontes MD Primary Care Provider Active Start: May 01, 2024 End: May 01, 2024 Marimar Zimmer MITTEN SEWER, MITTEN SEWER-C Attending Provider Active Start: May 01, 2024 End: May 01, 2024 Team Status: Inactive Member Role Status Dates Dr. David Miramontes MD Primary Care Provider Active Start: May 11, 2024 End: May 11, 2024 Marimar Zimmer MITTEN SEWER, MITTEN SEWER-C Attending Provider Active Start: May 11, 2024 [...] 2024 End: May 18, 2024 Marimar Zimmer MITTEN SEWER, MITTEN SEWER-C Attending Provider Active Start: May 18, 2024 [...] June 23, 2024 End: June 23, 2024 Retail Custodial Associate Relationship Specialty Start Date End Date Nicolas Cardenas MD [address] [place] [address] PCP - General 02/12/03 Retail Custodial Associate Relationship Specialty Start Date End Date Nicolas Cardenas MD [address] [place], [place] [id number] PCP - General 02/12/03 Retail Custodial Associate Relationship Specialty Start Date End Date Nicolas Cardenas MD [address] [place], [place] [id number] PCP - General 02/12/03 Retail Custodial Associate Relationship Specialty Start Date End Date Nicolas Cardenas MD [address] [place] [address] PCP - General 02/12/03 Team Status: Active Member Role Status Dates Dr. Nicolas Cardenas MD Family Provider Active Dr. Nicolas Cardenas MD Primary Care Provider Active Team Status: Inactive Member Role Status Dates Dr. Nicolas Cardenas MD Primary Care Provider Active Marimar Zimmer MITTEN SEWER, MITTEN SEWER-C Attending Provider Active Team Status: Inactive Member [...] 02, 2024 End: March 02, 2024 ERWIN oDss Attending Provider Active St art: March 02, 2024 End: March 02, 2024 Team Status: Inactive Member Role Status Dates Dr. David Miramontes MD Primary Care Provider Active Start: March 13, 2024 End: March 13, 2024 Marimar Zimmer MITTEN SEWER, MITTEN SEWER-C Attending Provider Active Start: March 13, 2024 [...] 2024 End: May 01, 2024 Marimar Zimmer MITTEN SEWER, MITTEN SEWER-C Attending Provider Active Start: May 01, 2024 End: May 01, 2024 Team Status: Inactive Member Role/Relationship Status Dates Dr. David Miramontes MD Primary Care Provider Active Start: May 11, 2024 End: May 11, 2024 Marimar Zimmer MITTEN SEWER, MITTEN SEWER-C Attending Provider Active Start: May 11, 2024 [...] 2024 End: May 18, 2024 Marimar Zimmer NP MITTEN SEWER-C Attending Provider Active Start: May 18, 2024 [...] 2024 End: May 23, 2024 Dr. David Miramotnes MD Attending Provider Active Start: May 23, [...] 30, 2024 End: May 30, 2024 Marimar Tickton MITTEN SEWER, MITTEN SEWER-C Attending Provider Active Start: May 30, 2024 [...] 2024 End: May 18, 2024 Marimar Zimmer MITTEN SEWER, MITTEN SEWER-C Attending Provider Active Start: May 18, 2024 [...] 2024 End: May 30, 2024 Marimar Zimmer MITTEN SEWER, MITTEN SEWER-C Attending Provider Active Start: May 30, 2024 [...] Inactive Member Role/Relationship Status Dates Marimar Zimmer MITTEN SEWER, MITTEN SEWER-C Attending Provider Active Start: July 20, 2024 [...] 2024 End: August 15, 2024 Marimar Zimmer NP, MITTEN SEWER-C Attending Provider Active Start: August 15, 2024 [...] 2024 End: August 21, 2024 Marimar Zimmer NP, MITTEN SEWER-C Attending Provider Active Start: August 21, 2024 [...] End: August 25, 2024 Marimar Zimmer NP MITTEN SEWER-C Attending Provider Active Start: August 25, 2024 [...] 2024 End: May 30, 2024 Marimar Zimmer MITTEN SEWER, MITTEN SEWER-C Attending Provider Active Start: May 30, 2024 [...] 2024 End: July 04, 2024 Marimar Zimmer MITTEN SEWER, MITTEN SEWER-C Attending Provider Active Start: July 04, 2024 End: July 04, 2024 Team Status: Inactive Member Role/Relationship Status Dates Dr. David Miramontes MD Primary Care Provider Active Start: July 18, 2024 End: July 18, 2024 Dr. David Miramontes MD Attending Provider Active Start: July 18, 2024 End: July 18, 2024 Team Status: Inactive Member Role/Relationship Status Dates Marimar Zimmer MITTEN SEWER, MITTEN SEWER-C Attending Provider Active Start: July 20, 2024 [...] 2024 End: August 15, 2024 Marimar Zimmer MITTEN SEWER, MITTEN SEWER-C Attending Provider Active Start: August 15, 2024 [...] 2024 End: August 21, 2024 Marimar Zimmer MITTEN SEWER, MITTEN SEWER-C Attending Provider Active Start: August 21, 2024 End: August 21, 2024 Team Status: Inactive Member Role/Relationship Status Dates Dr. David Miramontes MD Primary Care Provider Active Start: August 25, 2024 End: August 25, 2024 Marimar Zimmer MITTEN SEWER, MITTEN SEWER-C Attending Provider Active Start: August 25, 2024 [...] 2024 End: July 04, 2024 Marimar Zimmer MITTEN SEWER, MITTEN SEWER-C Attending Provider Active Start: July 04, 2024 End: July 04, 2024 Team Status: Inactive Member Role/Relationship Status Dates Dr. David Miramontes MD Primary Care Provider Active Start: July 18, 2024 End: July 18, 2024 Dr. David Miramontes MD Attending Provider Active Start: July 18, 2024 End: July 18, 2024 Team Status: Inactive Member Role/Relationship Status Dates Marimar Zimmer MITTEN SEWER, MITTEN SEWER-C Attending Provider Active Start: July 20, 2024 [...] 2024 End: August 15, 2024 Marimar Zimmer MITTEN SEWER, MITTEN SEWER-C Attending Provider Active Start: August 15, 2024 [...] 2024 End: August 21, 2024 Marimar Zimmer MITTEN SEWER, MITTEN SEWER-C Attending Provider Active Start: August 21, 2024 [...] 2024 End: August 25, 2024 Marimar Zimmer MITTEN SEWER, MITTEN SEWER-C Attending Provider Active Start: August 25, 2024 [...] 2024 End: September 19, 2024 Marimar Zimmer NP, MITTEN SEWER-C Attending Provider Active Start: September 19, 2024 [...] 2024 End: September 25, 2024 Marimar Zimmer MITTEN SEWER, MITTEN SEWER-C Attending Provider Active Start: September 25, 2024 End: September 25, 2024 Team Status: Inactive Member Role/Relationship Status Dates Dr. David Miramontes MD Primary Care Provider Active Start: July 04, 2024 End: July 04, 2024 Marimar Zimmer MITTEN SEWER, MITTEN SEWER-C Attending Provider Active Start: July 04, 2024 End: July 04, 2024 Team Status: Inactive Member Role/Relationship Status Dates Dr. David Miramontes MD Primary Care Provider Active Start: July 18, 2024 End: July 18, 2024 Dr. David Miramontes MD Attending Provider Active Start: July 18, 2024 End: July 18, 2024 Team Status: Inactive Member Role/Relationship Status Dates Marimar Zimmer MITTEN SEWER, MITTEN SEWER-C Attending Provider Active Start: July 20, 2024 [...] 2024 End: August 15, 2024 Marimar Zimmer MITTEN SEWER, MITTEN SEWER-C Attending Provider Active Start: August 15, 2024 [...] 2024 End: August 21, 2024 Marimar Zimmer MITTEN SEWER, MITTEN SEWER-C Attending Provider Active Start: August 21, 2024 [...] 2024 End: August 25, 2024 Marimar Zimmer NP, MITTEN SEWER-C Attending Provider Active Start: August 25, 2024 [...] 2024 End: September 19, 2024 Marimar Zimmer NP, MITTEN SEWER-C Attending Provider Active Start: September 19, 2024 End: September 19, 2024 Team Status: Inactive Member Role/Relationship Status Dates Dr. David Miramontes MD Primary Care Provider Active Start: September 25, 2024 End: September 25, 2024 Marimar Zimmer NP, MITTEN SEWER-C Attending Provider Active Start: September 25, 2024 End: September 25, 2024 Team Status: Inactive Member Role/Relationship Status Dates Dr. David Miramontes MD Primary Care Provider Active Start: September 29, 2024 End: September 29, 2024 Dasia Barrett NP-C Attending Provider Active Start: September 29, 2024 End: September 29, 2024 Team Status: Inactive Member Role/Relationship Status Dates Dr. David Miramontes MD Primary Care Provider Active Start: October 27, 2024 End: October 27, 2024 Dr. Abhinav Leigh MD Emergency Provider Active S tart: October 27, 2024 End: October 27, 2024 Goals (unrecognized section and content) Goals [...] section and content) DATE CREATED AUTHOR 06/08/2022 [facility] DATE CREATED AUTHOR AUTHOR'S ORGANIZ ATION 07/17/2024 [facility] DATE CREATED AUTHOR AUTHOR'S ORGANIZ ATION 10/26/2024 [facility] FOR RECORDS PERTAINING TO PATIENTS WHO [...] BE BASED ON THE PRIMARY CLINICAL RECORDS. [facility] provides no warranty or guarantee of the accuracy or completeness of information in this document.
--- NOTE | 2024-10-29 10:43 | ED.RN ---
message left for lorenzo Barry for consent.
[2024-10-29 11:28] VITALS: BP 118/84; PULSE 66; RESP 16; TEMP 36.8; O2SAT 99
--- NOTE | 2024-10-29 11:29 | ED.RN ---
report called to nurse at [facility]
== END 2024-10-29 11:53 | disposition home or self-care (01) ==
PROVIDERS: Emergency Provider Emergency Medicine; PCP Internal Medicine; Visit Provider Emergency Medicine
DX: M79.89 Other specified soft tissue disorders (principal); F03.90 Unspecified dementia, unspecified severity, without behavioral disturbance, psychotic disturbance, mood disturbance, and anxiety; Z87.891 Personal history of nicotine dependence
CPT/HCPCS: 73110; 73130; 99284

== ENCOUNTER 2024-11-02 03:29 | Emergency (ER) | payer MEDICARE, MEDICAID, SELFPAY ==
[2024-11-02 03:30] VITALS: BP 115/63; PULSE 59; RESP 18; TEMP 36.6; O2SAT 90; BMI 29.7
[2024-11-02 03:45] VITALS: BP 115/63; PULSE 65; RESP 16; O2SAT 98
--- NOTE | 2024-11-02 03:56 | CT_ITS ---
PROCEDURE: SPINE CERVICAL WITHOUT CONTRAS 11/02/2024 REASON FOR EXAM: HEAD TRAUMA TECHNIQUE: Procedure Code: CTSPC Modality: CT Procedure: SPINE CERVICAL WITHOUT CONTRAS Coronal and Sagittal reconstruction series were provided. One or more dose reduction techniques were used (e.g., Automated exposure control, adjustment of the mA and/or kV according to patient size, use of iterative reconstruction technique. RADIATION DOSE SUMMARY: CTDlvol: 28.95 mGy DLP: 1518 mGycm COMPARISON: None. FINDINGS: Mild osteopenia. Grade 1 anterolisthesis of C2 on C3. Grade 1 anterolisthesis of C7 on T1. There are diffuse spondylotic changes. Findings are demonstrated to by diffuse disc space narrowing, osteophyte formation and degenerative endplate sclerosis. There is diffuse facet joint arthropathy with secondary bilateral neural foramina narrowing. No fracture or dislocation is seen. No aggressive lytic or blastic bony lesion is noted. CT/Spine Cervical without Contras IMPRESSION: No CT evidence of an acute traumatic abnormality. Reading [facility]
--- NOTE | 2024-11-02 03:56 | CT_ITS ---
PROCEDURE: BRAIN/HEAD WITHOUT CONTRAST 11/02/2024 REASON FOR EXAM: HEAD TRAUMA ON THINNERS TECHNIQUE: Procedure Code: CTBR Modality: CT Procedure: BRAIN/HEAD WITHOUT CONTRAST Coronal and Sagittal reconstruction series were provided. One or more dose reduction techniques were used (e.g., Automated exposure control, adjustment of the mA and/or kV according to patient size, use of iterative reconstruction technique. RADIATION DOSE SUMMARY: CTDlvol: 28.95 mGy DLP: 652 mGycm COMPARISON: 10/27/2024. FINDINGS: Unchanged right frontal acute subgaleal soft tissue hematoma. Mild diffuse cortical atrophy, commensurate with the patient's age. Scattered hypodense foci in the periventricular and subcortical white matter suggestive of chronic ischemic white matter disease. Normal size of the ventricles and extra-axial spaces for the patient's age. Normal basal ganglia and thalami. Normal brainstem. Normal cerebellum. There is no demonstrated extra-axial, intraparenchymal, or intraventricular hemorrhage. There are no findings of an acute ischemic infarction. Normal calvarium. There is no demonstrated fracture. Normal visualized paranasal sinuses. CT/Brain/Head without Contrast IMPRESSION: Unchanged right frontal acute subgaleal soft tissue hematoma. No CT evidence of an acute traumatic brain abnormality. Reading Location: [facility]
--- NOTE | 2024-11-02 03:56 | ED.VIS.FALL ---
HPI HPI - Fall History of Present Illness Chief Complaint: Fall Informant: patient and SNF (I spoke to staff at the extended care facility. Unwitnessed fall tonight. Reportedly neck pain even though he is denying that now.) Occured/Mechanism Occurred: Today Mechanism/Context: Yes same level fall Usually ambulates: Walker Pain/Injury Pain Location: head and neck Narrative Narrative: 84-year-old male recently placed on extended care facility. He is currently at [facility]. Tonight they found him in his room on the floor. It was an unwitnessed fall. No idea if he had any LOC. When they went to move him he reportedly had neck pain even though currently has no complaints. I [facility] staff at [facility] facility. Patient's been seen at least 3-4 times in the last several weeks for falls. Prior similar symptoms: Yes Recent Illness/Hospitalization: No PFSH [facility] Medical History Alzheimers disease Former smoker Dementia Adult failure to thrive Chronic anticoagulation History of atrial fibrillation Fall Sick sinus syndrome Bradycardia Sinus pause SUZAN on CPAP (11/07/18) Hematuria Chronic midline low back pain without sciatica Multiple gastric ulcers Essential tremor Mild memory disturbance Benign neoplasm of colon Chronic rhinitis BPH (benign prostatic hyperplasia) Atrial fibrillation Essential (primary) hypertension Home Medications ?Medication ?Instructions ?Recorded ?Last Taken ?Type sennosides 8.6 mg-docusate sodium 2 tab PO BID #180 tabs 02/26/22 Unknown Rx 50 mg tablet (Stool Softener-Stimulant Laxative) cimetidine 200 mg tablet 200 mg PO DAILY #90 tabs 03/25/22 Unknown Rx aluminum-mag hydroxide-simethicone 15 ml PO Q4H PRN 07/08/23 Unknown History 200 mg-200 mg-20 mg/5 mL oral susp benzocaine 20 %-menthol 0.1 %-zinc ea mucous membrane 07/08/23 Unknown History chloride 0.15 % mucosal gel (Orajel 3X Mouth Sores) magnesium hydroxide 400 mg/5 mL 30 ml PO DAILY PRN 07/08/23 Unknown History oral suspension memantine 5 mg tablet 5 mg PO BID 07/08/23 Unknown History terazosin 5 mg capsule 5 mg PO QHS 07/08/23 Unknown History quetiapine 25 mg tablet (Seroquel) 75 mg (3 x 25 mg) PO DAILY 3 11/08/23 Unknown Rx months #270 tabs furosemide 40 mg tablet 40 mg PO DAILY #90 tabs 03/06/24 Unknown Rx finasteride 5 mg tablet 5 mg PO QHS BPH #90 tabs 04/03/24 Unknown Rx sertraline 25 mg tablet (Zoloft) 25 mg PO QDAY #90 tabs 05/05/24 Unknown Rx potassium chloride 10 mEq 10 meq PO DAILY #90 tabs 06/16/24 Unknown Rx tablet,extended release apixaban 5 mg tablet (Eliquis) 5 mg PO BID #180 tabs 08/14/24 Unknown Rx Allergy/AdvReac Type Severity Reaction Status Date / Time No Known Allergies Allergy Verified 10/29/24 09:55 Family History Father Heart disease Brother Heart disease Surgical History Presence of cardiac pacemaker (11/18/18) History of tonsillectomy History of inguinal hernia repair Social History Smoking Status: Former smoker how long ago did patient quit smokin years ago alcohol intake: never substance use type: does not use caffeine: No ROS ROS ED ROS Narrative Denies but patient does have dementia. Review of Systems ROS Unobtainable: due to mental status EXAM Physical Exam Narrative Exam Narrative: 84-year-old male sitting upright in bed. Vital signs stable afebrile. Pulse ox 90% on room air no hypoxia. He is in no distress. There is no family present. H EENT exam pupils round reactive to light extremities are intact. Patient had extensive bruising of his forehead and face currently is nontender. He had a prior hematoma in his right forehead on prior visit. There is no dental injury. There is no acute bruising or laceration on his scalp. There is old bruising on his forehead and face. C-spine and trachea nontender. Back and spine nontender. Lungs clear to auscultation bilaterally. Heart regular rhythm rate about 60 no murmur. Chest wall ribs nontender. Abdomen soft nontender. Moving all 4 extremities. 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 Dorsi plantarflexion intact. He can flex extend at both hips and knees. There is no hip tenderness. No shortening or rotation. Back nontender no bruising. Neurologically is awake alert. He will answer questions but he is demented and confused that is his baseline. Const Vital Signs: 11/02/24 03:30 11/02/24 03:45 11/02/24 03:47 Temperature 97.8 F Temperature Source Oral Pulse Rate 59 L 65 Respiratory Rate 18 16 Respiratory Effort Normal Blood Pressure 115/63 115/63 Blood Pressure Mean 80 80 Pulse Ox 90 98 Oxygen Delivery Method Room Air Room Air Room Air Positive well nourished and well developed; Negative for cachectic, contractures or unkempt General Appearance ED: well developed and NAD; Negative for unkempt, cachectic or contractures Nutritional Appearance: Negative for cachectic HEENT Reports normocephalic HEENT Narrative: Multiple forehead and facial bruises. But they are nontender. He had a recent forehead contusion from a prior fall. trauma, contusion and hematoma; Negative for atraumatic Eyes PERRL and EOMs intact bilaterally Neck full ROM, no lymphadenopathy and supple Neck Narrative: No C-spine tenderness. No tracheal tenderness. Chest Wall inspection of chest normal and palpation of chest normal Resp normal respiratory effort, no retractions and clear to auscultation bilaterally Cardio regular rate, regular rhythm, S1 normal heart sound, S2 normal heart sound and no murmurs GI non-tender, non-distended and no masses Auscultation: normoactive bowel sounds Palpation: soft; Negative for guarding or rebound tenderness present Back/Spine no CVA tenderness Back/Spine Narrative: No lumbar, thoracic or cervical tenderness no neck tenderness. Cervical Spine: Negative for cervical spine tenderness Lumbar Spine / Lower Back: Negative for lumbar spinal tenderness Neuro CN's II-XII intact bilaterally, moves all extremities and no focal motor deficits Neuro Narrative: Awake. But demented. Sensorium / Orientation: alert, oriented to person, orientation impaired and confused; Negative for oriented to place or oriented to time Motor Exam: strength 5/5 throughout Psych mental status grossly normal and thought process normal Appearance: Negative for unkempt Skin Lesions: no lesions MDM MDM MDM Narrative Medical decision making narrative: 84-year-old male with dementia nursing out unwitnessed fall. Nursing is concerned because they feel he had neck pain. This patient's been seen here multiple times over the last several weeks for falls. CAT scan of his head and neck will be obtained. He is on the blood thinner Eliquis due to a history of A-fib. He has had recent screening labs are unremarkable. Repeat exam at 5:15 AM unchanged. CAT scans of his head and neck showed chronic changes and a resolving forehead hematoma but no acute fractures or intracranial bleeds. He will be discharged back to extended-care facility. History & Record Review Discussion w/independent historian: Patient Additional record(s) reviewed:: Prior inpatient record, Prior outpatient record, Prior ED visit and Prior labs Radiography Diagnostic Testing: Clinical Impression(s) from Imaging Studies Brain CT 11/02/24 03:56 IMPRESSION: Unchanged right frontal acute subgaleal soft tissue hematoma. No CT evidence of an acute traumatic brain abnormality. Reading [facility] Cervical Spine CT 11/02/24 03:56 IMPRESSION: No CT evidence of an acute traumatic abnormality. Reading [facility] CAT scan brain without contrast shows no acute fracture or intracranial bleed interpreted myself awaiting radiology read. CT C-spine shows chronic degenerative changes cervical spine but no acute fracture. Awaiting radiologist read. Discharge Plan Triage Chief Complaint: Fall ED Provider: Abhinav Leigh Dx/Rx/DC Orders Clinical Impression: Fall, Anticoagulant long-term use, Head injury, History of atrial fibrillation Instructions: ED Head Injury (Adult) Prescriptions: No Action terazosin 5 mg capsule 5 mg PO QHS magnesium hydroxide 400 mg/5 mL suspension 30 ml PO DAILY PRN alum-mag hydroxide-simeth 200-200-20 mg/5 mL suspension 15 ml PO Q4H PRN Rx Instructions: 1 and 3 hours after meals and at bedtime Orajel 3X Mouth Sores 20-0.1-0.15 % gel mucous membrane memantine 5 mg tablet 5 mg PO BID sennosides-docusate sodium [Stool Softener-Stimulant Laxat] 8.6-50 mg tablet 2 tab PO BID Qty: 180 3RF cimetidine 200 mg tablet 200 mg PO DAILY Qty: 90 3RF quetiapine [Seroquel] 25 mg tablet 75 mg PO DAILY 90 Days Qty: 270 3RF Rx Instructions: 1 tab a.m. and 2 tabs p.m. furosemide 40 mg tablet 40 mg PO DAILY Qty: 90 3RF finasteride 5 mg tablet 5 mg PO QHS Qty: 90 3RF sertraline [Zoloft] 25 mg tablet 25 mg PO QDAY Qty: 90 3RF potassium chloride 10 mEq tablet extended release 10 meq PO DAILY Qty: 90 3RF Eliquis 5 mg tablet 5 mg PO BID Qty: 180 3RF Primary Care Provider: Quirino Miramontes Referrals: Quirino Miramontes MD [Primary Care Provider] - As Needed Activity Restrictions/Additional Instructions: Tylenol for pain. CAT scans tonight of his head and neck were negative. Follow-up with either his doctor or your medical staff credentialing coordinator to discuss if he should remain on anticoagulation due to his history of the falls you may want to consider taking him off of the Eliquis. Print Language: Japanese Disposition Disposition: Home, Self Care
--- OUTSIDE RECORDS SUMMARY | 2024-11-02 04:06 | XMS RPT_ITS | CCD ---
Author Organization [facility] Care Team Providers Care Finisher [place] Name Role Phone Nicolas Cardenas MD Primary Care Provider Dr. Nicolas Cardenas Primary Care Provider Dr. Abhinav Leigh Emergency Provider Dr. Robinson Nguyen Admit Provider Dr. Robinson Nguyen Attending Provider Dr. Robinson Nguyen Other Provider Dr. Kevin Nichole Attending Provider Dr. Kevin Nichole Other Provider Dr. Desire Leung Attending Provider Nicolas Cardenas MD Primary Care Provider Mesha PRESS SETTER, PRESS SETTER-C Marimar Attending Provider Dr. Nicolas Justin Primary Care Provider Mesha PRESS SETTER, PRESS SETTER-C Marimar Attending Provider Dr. David Nina Attending Provider Unavailable Primary Care Provider UnavailNICOLAS Blankenship Referring Unavailable NICOLAS CARDENAS Attending Unavailable NICOLAS CARDENAS Primary Care Unavailable Dr. Nicolas Cardenas Primary Care Provider Mesha PRESS SETTER, PRESS SETTER-C Marimar Attending Provider Dr. David Nina Attending Provider Dr. Nicolas Cardenas Primary Care Provider Mesha PRESS SETTER, PRESS SETTER-C Marimar Attending Provider Dr. Frandy Ninaongbe Attending Provider Dr. Nicolas Cardenas Primary Care Provider Mesha PRESS SETTER, PRESS SETTER-C Marimar Attending Provider Dr. David Miramontes Attending Provider [phone] Dr. David Miramontes MD Primary Care Provider Dr. Edson Quinn MD Attending Provider Dr. Edson Quinn MD Referring Provider [phone] Dr. David Miramontes MD Attending Provider Isidro Can Attending Provider Mesha PRESS SETTER-CMarimar Attending Provider David Miramontes MD Attending Provider [...] David Miramontes MD Primary Care Provider Mesha PRESS SETTER-CMarimar Attending Provider Unavailable Primary Care Provider Unavailabl DIANA Sampson Attending Unava ilable SELF Referring Unavailable Dr. David Miramontes MD Primary Care Provider Mesha PRESS SETTER-CMarimar Attending Provider David Miramontes MD Attending Provider Unavailapril Miramontes MD, Dr. Win Attending Provider [phone] David Miramontes MD Referring Provider Unavaila arthur Miramontes MD, Dr. Win Primary Care Provider Tickton PRESS SETTER-C, Marimar Attending Provider Kai ALAMO, Dr. Sandhu Attending Provider [phone] Kai ALAMO, Dr. Sandhu Referring Provider [phone] Kulwinder ALAMO, Dr. Win Primary Care Provider David Miramontes MD Attending Provider Unavaila ble Tickton PRESS SETTER-C, Marimar Attending Provider Kulwinder ALAMO, Dr. Win Attending Provider [phone] Kai ALAMO, Dr. Sandhu Attending Provider [phone] Kai ALAMO, Dr. Sandhu Referring Provider [phone] Kulwinder ALAMO, Dr. Win Primary Care Provider David Miramontes MD Attending Provider Unavaila ble Tickton PRESS SETTER-C, Marimar Attending Provider Kulwinder ALAMO, Dr. Win Attending Provider [phone] Kulwinder ALAMO, Dr. Win Primary Care Provider David Miramontes MD Attending Provider Unavaila ble Ungerer PRESS SETTER-C, Dasia Attending Provider [phone] Reese ALAMO, Dr. La Emergency Provider Edson Quinn Referring Unavailable Edson Quinn Attending Unavailable Oleghe, Efewongbe Primary Care Unavailable Oleghe, Efewongbe Attending Unavailable Oleghe, Efewongbe Primary Care Unavailable Tickton Marimar Attending Unavailable Oleghe, Efewongbe Primary Care Unavailable Tickton, Marimar Attending Unavailable Oleghe, Efewongbe Primary Care Unavailable Oleghe, Efewongbe Attending Unavailable Oleghe, Efewongbe Referring Unavailable Oleghe, Efewongbe Primary Care Unavailable Oleghe, Efewongbe Primary Care Unavailable Oleghe RADHA Efwayneongbe Attending Unavailabl e Oleghe OLS Efewongbe Referring Unavailabl e Oleghe, Efewongbe Primary [...] Unavailable Oleghe, Efewongbe Primary Care Unavailable Kai, [place] Referring Unavailable Kai, [place] Attending Unavailable Oleghe, Efewongbe Primary Care Unavailable Oleghe, Efewongbe Attending Unavailable Oleghe, Efewongbe Primary Care Unavailable Mesha Marimar Attending Unavailable Oleghe, Efewongbe Primary Care Unavailable Mesha Marimar Attending Unavailable Oleghe, Efewongbe Primary Care Unavailable Oleghe, Efewongbe Referring Unavailable Josiah Klein Attending Unavailable Oleghe, Efewongbe Primary Care Unavailable Tickton, Marimar Attending Unavailable Oleghe, Efewongbe Primary Care Unavailable Kyung Wright Attending Unavailable Oleghe, Efewongbe Primary Care Unavailable Tickton Marimar Attending Unavailable Oleghe, Efewongbe Primary Care Unavailable Oleghe, Efewongbe Primary Care Unavailable Kai, [place] Attending Unavailable Kai, Edson Referring Unavailable Oleghe, Efewongbe Attending Unavailable Oleghe, Efewongbe Primary Care Unavailable Tickton Marimar Attending Unavailable Oleghe, Efewongbe Primary Care Unavailable Oleghe, Efewongbe Primary Care Unavailable Dasia Barrett Attending Unavailable Kai, Edson Attending Unavailable Kai, Edson Referring Unavailable Oleghe, Efewongbe Primary Care Unavailable Isidro Can Attending Unavailable Oleghe, Efewongbe Primary Care Unavailable Tickton, Marimar Attending Unavailable Oleghe, Efewongbe Primary Care Unavailable Tickton, Marimar Attending Unavailable Oleghe, Efewongbe Primary Care Unavailable Tickton, Marimar Attending Unavailable Oleghe, Efewongbe Primary Care Unavailable Tickton, Marimar Attending Unavailable Oleghe, Efewongbe Primary Care Unavailable Tickton, Marimar Attending Unavailable Oleghe, Efewongbe Primary Care Unavailable Kai, [place] Referring Unavailable Kai, [place] Attending Unavailable Oleghe, Efewongbe Primary Care Unavailable [...] OLS, Efewongbe Attending Unavailabl e Oleghe, Efewongbe Attending Unavailable Oleghe OLS, Efewongbe Referring Unavailabl e Oleghe, Efewongbe Primary Care Unavailable Oleghe, Efewongbe Primary Care Unavailable Oleghe OLS, Efewongbe Attending Unavailabl e Oleghe, Efewongbe Primary Care Unavailable Oleghe OLS, Efewongbe Attending Unavailabl e Oleghe, Efewongbe Primary Care Unavailable Oleghe OLS, Efewongbe Attending Unavailabl e Oleghe, Efewongbe Primary Care Unavailable Abhinav Leigh Attending Unavailable Oleghe, Efewongbe Primary Care Unavailable Abhinav Leigh Attending Unavailable Oleghe, Efewongbe Primary Care Unavailable Oleghe OLS, Efewongbe Attending Unavailabl e Kai, [place] Referring Unavailable Kai, [place] Attending Unavailable Oleghe, Efewongbe Primary Care Unavailable Oleghe, Efewongbe Attending Unavailable Oleghe, Efewongbe Primary Care Unavailable Oleghe, Efewongbe Primary Care Unavailable Oleghe OLS, Efewongbe Attending Unavailabl e Oleghe, Efewongbe Primary Care Unavailable David Zheng Attending David Garcia Primary Care Unavailable David Zheng Attending Sara starks Medications Current Medications Medication Drug Class(es) Dates Sig (Normalized) Sig (Original) aluminum hydroxide 40 mg/ml / magnesium hydroxide 40 mg/ml / simethicone 4 mg/ml oral suspension (18 sources) Start: 07-08-2023 Alum-Mag Hydroxide-Simeth 200-200-20 mg/5 mL suspension Active 15 mL PO Q4H as needed July 08, 2023 12:00am 1 and 3 hours after meals and at bedtime Aspirin (1 source) Platelet Aggregation Inhibitor, Nonsteroidal Anti-inflammatory Drug Start: 10-20-2021 aspirin Active October 20, 2021 12:00am benzocaine 0.2 mg/mg / menthol 0.001 mg/mg / zinc chloride 0.0015 mg/mg oral gel (18 sources) Standardized Chemical Allergen Start: 07-08-2023 Benzocaine-Mentho [...] 180 February 26, 2022 5:15pm Magnesium Hydroxide (18 sources) Start: 07-08-2023 take 1 mL by [...] 2023 5:03pm sertraline 25 mg oral tablet (18 sources) Serotonin Reuptake Inhibitor Start: 05-05-2024 take [...] capsule (20 sources) Start: 9 End: 4 Durham-3 Fatty Acids-Fish Oil (Fish Oil) 360-1,200 mg [...] hydrochloride 5 mg oral tablet (20 sources) J-asqcsd-J-aspartat e Receptor Antagonist Start: 3 End: 4 [...] A DAY 0 October 22, 2021 12:00am Durham-3 Fatty Acids (Fish Oil Concentrate) 1,000 mg capsule (20 sources) Start: 08-23-2018 End: 11-08-2018 take 1 capsule by mouth once daily Durham-3 Fatty Acids (Fish Oil Concentrate) 1,000 mg capsule Discontinued 1000 mg PO DAILY August 23, 2018 12:00am November 08, 2018 1:59pm Start: 08-23-2018 End: 11-08-2018 take 1 capsule by mouth once daily Durham-3 Fatty Acids (Fish Oil Concentrate) 1,000 mg capsule Discontinued 1000 MG PO DAILY August 22, 2018 11:00pm November 08, 2018 12:59pm Start: 08-23-2018 End: 11-08-2018 take 1 capsule by mouth once daily Durham-3 Fatty Acids (Fish Oil Concentrate) 1,000 mg [...] Comment on above: Take 1 capsule by [facility] once daily. Perflutren Lipid Microspheres (Definity) 1.1 [...] fatigue; Translations: [Other fatigue] Onset: 08-07-2024 Episodic Osteoarthritis (1 source) Osteoarthritis; Translations: [Unspecified osteoarthritis, unspecified site] 10-29-2024 Chronic Other aftercare (20 sources) Long-term current use of anticoagulant; Translations: [[facility] (current) use of anticoagulants] 10-30-2021 Episodic Other aftercare (2 sources) [facility] (current) use of anticoagulants; Translations: [Long-term (current) [...] other diseases of circulatory system] Episodic Other connective tissue disease (1 source) Swelling of hand; Translations: [Other specified soft tissue disorders] 10-29-2024 Episodic Other gastrointestinal disorders (2 sources) Dysphagia, oral phase; Translations: [Dysphagia, oral phase] Onset: 06-21-2024 Episodic Other hereditary and degenerative nervous system conditions (8 sources) Essential tremor; Translations: [Essential tremor] Onset: 05-23-2013 05-23-2013 Chronic Other hereditary and degenerative nervous system conditions (2 sources) Essential tremor; Translations: [Essential tremor] Onset: 06-21-2024 Chronic Other injuries and conditions due to external causes (2 sources) Closed injury of head; Translations: [Unspecified injury of head, initial encounter] 10-27-2024 Episodic Other injuries and conditions due to external causes (1 source) History of fall; Translations: [History of falling] 10-29-2024 Episodic Other nutritional; endocrine; and metabolic disorders [...] remission] Onset: 04-11-2024 Chronic Superficial injury; contusion (2 sources) Hematoma of scalp; Translations: [Contusion of scalp, [...] Test Name Value Interpretation Reference Range Facility Emergency Department Summary on 10-29-2024 Emergency Department Summary [facility] Medical Records Department [address] [place] [address] Emergency Department Summary 10/29/24 MR#: [id number] Acct: [id number] Name: KEL DILLARD Rep #: [id number] : 1940 84 From: Abhinav Leigh MD PCP: Dr. David Miramontes MD Status:REG ER Location: ED HPI History of Present Illness HPI Narrative: 84-year-old male history of dementia from a local extended-care facility. Patient has frequent falls was seen 2 days ago for falls and a head injury. He sent him in today because I believe he has had additional falls and they were concerned about his left wrist. They did an x-ray at their facility it is questionable if this is degenerative arthritis or an avulsion fracture. Patient denies any wrist pain or complaint. Chief Complaint: Upper Extremity Injury Informant: patient Occured/Mechanism Mechanism/Context: Yes injury and Yes blunt trauma Onset/Context/Timing Current Severity: Mild Maximum Severity: Mild Narrative Narrative: 84-year-old male with dementia who extended-care facility frequent falls sent in for possible wrist fracture versus degenerative arthritis. Patient really denies any significant plain of the left wrist. Prior similar symptoms: No Recent Illness/Hospitalizat ion: No PFSH PFSH Medical History Alzheimers disease Former smoker Dementia Adult failure to thrive Chronic anticoagulation History of atrial fibrillation Fall Sick sinus syndrome Bradycardia Sinus pause SUZAN on CPAP (11/07/18) Hematuria Chronic midline low back pain without sciatica Multiple gastric ulcers Essential tremor Mild memory disturbance Benign neoplasm of colon Chronic rhinitis BPH (benign prostatic hyperplasia) Atrial fibrillation Essential (primary) hypertension Home Medications ???Medication ???Instructions ???Recorded ???Last Taken ???Type sennosides 8.6 mg-docusate sodium 2 tab PO BID #180 tabs 02/26/22 U nknown Rx 50 mg tablet (Stool Softener-Stimulant Laxative) cimetidine 200 mg tablet 200 mg PO DAILY #90 tabs 03/25/22 Unknown Rx aluminum-mag hydroxide-simethicon e 15 ml PO Q4H PRN 07/08/23 Unknow n History 200 mg-200 mg-20 mg/5 mL oral susp benzocaine 20 %-menthol 0.1 %-zinc ea mucous membrane 07/08/23 Unkn own History chloride 0.15 % mucosal gel (Orajel 3X Mouth Sores) magnesium hydroxide 400 mg/5 mL 30 ml PO DAILY PRN 07/08/23 Unknow n History oral suspension memantine 5 mg tablet 5 mg PO BID 07/08/23 Unknown Histo ry terazosin 5 mg capsule 5 mg PO QHS 07/08/23 Unknown Histo ry quetiapine 25 mg tablet (Seroquel) 75 mg (3 x 25 mg) PO DAILY 3 11/22 Unknown Rx months #270 tabs furosemide 40 mg tablet 40 mg PO DAILY #90 tabs 03/06/24 U nknown Rx finasteride 5 mg tablet 5 mg PO QHS BPH #90 tabs 04/03/24 Unknown Rx sertraline 25 mg tablet (Zoloft) 25 mg PO QDAY #90 tabs 05/05/24 Un known Rx potassium chloride 10 mEq 10 meq PO DAILY #90 tabs 06/16/24 Unknown Rx tablet,extended release apixaban 5 mg tablet (Eliquis) 5 mg PO BID #180 tabs 08/14/24 Unk nown Rx Allergy/AdvReac Type Severity Reaction Status Date / Time No Known Allergies Allergy Verified 10/29/24 09:55 Family History Father Heart disease Brother Heart disease Surgical History Presence of cardiac pacemaker (11/18/18) History of tonsillectomy History of inguinal hernia repair Social History Smoking Status: Former smoker how long ago did patient quit smokin years ago alcohol intake: never substance use type: does not use caffeine: No ROS ROS ED ROS Narrative Patient denies any complaints.Limited informant due to his dementia. Review of Systems ROS Unobtainable: due to mental status Constitutional Constitutional ED: Denies chills or fever(s) Eyes Eyes: Denies blurry vision ENT ENT ED: Denies ear pain Cardiovascular Cardiovascular: Denies chest pain Respiratory/Chest Respiratory/Chest: Denies cough Gastrointestinal Gastrointestinal: Denies abdominal pain Musculoskeletal Musculoskeletal: Denies back pain Integumentary Denies abscess Neurologic Neurologic: Denies headache(s) Endocrine Endocrinology: Denies cold intolerance Hematologic/Lymphati c Hematologic/Lymphati c: Denies easy bleeding Allergic/Immunologic Allergic/Immunologic ED: Denies mouth swelling EXAM Physical Exam Narrative Exam Narrative: 84-year-old male sitting upright in bed. Vital signs are stable afebrile. Pulse ox 100% on room air no hypoxia. He is in no distress. Currently there is no one with him. He is awake and alert. HEENT exa (more content not included)... Normal [facility] Hand Min 3 Viewson 5 Hand Min 3 Views [facility] Imaging Services [address] [place] [address] Hand Min 3 Views MR#: [id number] Acct: [id number] Name: KEL DILLARD Rep #: [id number] : 1940 M 84 From: Sue Martinez MD PCP: Dr. David Miramontes MD Status: REG ER Study: Hand Min 3 Views Date of Exam: 10/29/24 Exam# [id number] Ordering Dr: Abhinav Leigh MD PROCEDURE: HAND MIN 3 VIEWS 10/29/2024 REASON FOR EXAM: FALL TECHNIQUE: Procedure Code: ERENDIRA Modality: DX Procedure: HAND MIN 3 VIEWS Laterality: Left COMPARISON: None. FINDINGS: Bones: No acute bony abnormalities. Joints: Unremarkable. Soft tissues: No soft tissue abnormalities. RAD/Hand Min 3 Views IMPRESSION: No acute osseous abnormalities. Reading Location: [facility] CC: Dr. David Miramontes MD; Dr. Abhinav Leigh MD Cold Working Inspector: Signed [address] [facility] Wrist min 3 Viewson 10-30-19 Wrist min 3 Views [facility] Imaging Services [address] [place] [address] [id number] Wrist min 3 Views MR#: [id number] Acct: [id number] Name: KEL DILLARD Rep #: [id number] : 1940 84 From: Sue Martinez MD PCP: Dr. David Miramontes MD Status: REG ER Study: Wrist min 3 Views Date of Exam: 10/29/24 Exam# [id number] Ordering Dr: Abhinav Leigh MD PROCEDURE: WRIST MIN 3 VIEWS 10/29/2024 REASON FOR EXAM: SWELLING L WRIST. FALLS TECHNIQUE: Procedure Code: RADWR Modality: DX Procedure: WRIST MIN 3 VIEWS Laterality: Left COMPARISON: None. FINDINGS: Bones: No acute bony abnormalities. Joints: Radiocarpal and 1st carpometacarpal joints. Narrowing and sclerosis. Soft tissues: No soft tissue abnormalities. RAD/Wrist min 3 Views IMPRESSION: No acute osseous abnormalities. Mild arthritis. Reading Location: [facility] CC: Dr. David Miramontes MD; Dr. Abhinav Leigh MD Cold Working Inspector: Signed [facility] Brain/Head without Contrasto n 10-27-2024 Brain/Head without Contrast [facility] Imaging Services [address] [place] [address] Brain/Head without Contrast MR#: [id number] Acct: [id number] Name: KEL DILLARD Rep #: [id number] : 1940 M 84 From: Paulie Mariano MD PCP: Dr. David Miramontes MD Status: REG ER Study: Brain/Head without Contrast Date of Exam: 09/30 11/23 Exam# [id number] Ordering Dr: Ira Abad PROCEDURE: CT BRAIN/HEAD WITHOUT CONTRAST 10/27/2024 REASON [...] loss and chronic microangiopathic changes. Reading Location: [facility] CC: Dr. David Miramontes MD; ERWIN Phillip Cold Working Inspector: Signed [facility] Emergency Department Summary on 10-27-2024 Emergency Department Summary [facility] Medical Records Department [address] [place] [address] Emergency Department Summary 10/27/24 MR#: [id number] Acct: [id number] Name: KEL DILLARD Rep #: [id number] : 1940 84 From: Abhinav Leigh MD PCP: Dr. David Miramontes MD Status:DEP ER Location: ED HPI HPI - Fall History of Present Illness Chief Complaint: Fall Narrative Narrative: 84-year-old male with A-fib on Eliquis and dementia presents after an unwitnessed fall. He has a hematoma on his head. He does not know what happened, he is alert to self only which is baseline. He has no complaints. [facility] Medical History Alzheimers disease Former smoker Dementia Adult failure to thrive Chronic anticoagulation History of atrial fibrillation Fall Sick sinus syndrome Bradycardia Sinus pause SUZAN on CPAP (11/07/18) Hematuria Chronic midline low back pain without sciatica Multiple gastric ulcers Essential tremor Mild memory disturbance Benign neoplasm of colon Chronic rhinitis BPH (benign prostatic hyperplasia) Atrial fibrillation Essential (primary) hypertension Home Medications ???Medication ???Instructions ???Recorded ???Last Taken ???Type sennosides 8.6 mg-docusate sodium 2 tab PO BID #180 tabs 02/26/22 U nknown Rx 50 mg tablet (Stool Softener-Stimulant Laxative) cimetidine 200 mg tablet 200 mg PO DAILY #90 tabs 03/25/22 Unknown Rx aluminum-mag hydroxide-simethicon e 15 ml PO Q4H PRN 07/08/23 Unknow n History 200 mg-200 mg-20 mg/5 mL oral susp benzocaine 20 %-menthol 0.1 %-zinc ea mucous membrane 07/08/23 Unkn own History chloride 0.15 % mucosal gel (Orajel 3X Mouth Sores) magnesium hydroxide 400 mg/5 mL 30 ml PO DAILY PRN 07/08/23 Unknow n History oral suspension memantine 5 mg tablet 5 mg PO BID 07/08/23 Unknown Histo ry terazosin 5 mg capsule 5 mg PO QHS 07/08/23 Unknown Histo ry quetiapine 25 mg tablet (Seroquel) 75 mg (3 x 25 mg) PO DAILY 3 11/22 Unknown Rx months #270 tabs furosemide 40 mg tablet 40 mg PO DAILY #90 tabs 03/06/24 U nknown Rx finasteride 5 mg tablet 5 mg PO QHS BPH #90 tabs 04/03/24 Unknown Rx sertraline 25 mg tablet (Zoloft) 25 mg PO QDAY #90 tabs 05/05/24 Un known Rx potassium chloride 10 mEq 10 meq PO DAILY #90 tabs 06/16/24 Unknown Rx tablet,extended release apixaban 5 mg tablet (Eliquis) 5 mg PO BID #180 tabs 08/14/24 Unk nown Rx Allergy/AdvReac Type Severity Reaction Status Date / Time No Known Allergies Allergy Verified 10/27/24 20:38 Family History Father Heart disease Brother Heart disease Surgical History Presence of cardiac pacemaker (11/18/18) History of tonsillectomy History of inguinal hernia repair Social History Smoking Status: Former smoker how long ago did patient quit smokin years ago alcohol intake: never substance use type: does not use caffeine: No ROS ROS ED ROS Narrative Unable to obtain due to dementia EXAM Physical Exam Narrative Exam Narrative: CONST: Patient sitting in no acute distress. EYES: Normal inspection. PERRL, EOMI. HEAD: Right frontal hematoma and abrasion. No deformity or crepitus. No raccoon eyes or Sanchez sign, no epistaxis or nasal septal hematoma, no hemotympanum, no CSF otorrhea or rhinorrhea. NECK: Normal inspection. No midline spinal tenderness, no step off or crepitus. RESP: No respiratory distress, CTAB. CVS: Regular rate and rhythm, no murmur, no gallop. ABD: Soft and nontender, no guarding or rebound, nondistended. SKIN: Color normal, no rash, warm, dry, intact. EXTREMITIES: Normal appearance, no pedal edema. NEURO: Alert to self only. Follows commands, moving all extremities. PSYCH: Normal affect. Const Vital Signs: 10/27/24 20:34 10/27/24 21:51 Temperature 97.7 F L Temperature Source Oral Pulse Rate 60 64 Respiratory Rate 18 16 Blood Pressure 128/73 H 132/60 H Blood Pressure Mean 91 84 Pulse Ox 97 98 Oxygen Delivery Method Room Air Physical Exam Const Vital Signs: 10/27/24 20:34 10/27/24 21:51 Temperature 97.7 F L Temperature Source Oral Pulse Rate 60 64 Respiratory Rate 18 16 Blood Pressure 128/73 H 132/60 H Blood Pressure Mean 91 84 Pulse Ox 97 98 Oxygen Delivery Method Room Air MDM MDM MDM Narrative Medical decision making narrative: Differential includes but not limited to closed head injury, skull fracture, intracranial hemorrhage 84-year-old male with advanced dementia had an unwitnessed fall. He has a right frontal (more content not included)... [facility] Gram stainOrdered By: Jarrell Miramontes on 09-25-2024 Microscopic observation Gram stain Nom (Unsp spec) [facility] Anion gap in Serum or Plasma Ordered By: David Miramontes on 09-07-2024 Anion gap [Moles/Vol] 9 mmol/L - [facility] BUN/creatinine ratioOrdered By: David Miramontes on 09-07-2024 Urea nitrogen/Creatinine [Mass ratio] 15.9 mg/mg 12-[address] [facility] Carbon dioxide, total [Moles /volume] in Central venous bloodOrdered By: David Miramontes on 09-07-2024 CO2 [Moles/Vol] 28.4 mmol/L 21.0-32.[address] [facility] Chloride assayOrdered By: Mayra Miramontes on 09-07-2024 Chloride [Moles/Vol] 104 mmol/L 98-[address] [facility] Glomerular filtration rate ( GFR) estimation/1.73 sq m using serum, plasma, or whole bOrdered By: David Miramontes on 09-07-2024 GFR/1.73 sq M.predicted among non-blacks MDRD (S/P/Bld) [Vol rate/Area] 72 mL/min/{1.73_m2} >[address] [facility] Comment on above: mL/min/1.73m2 CKD-EP I Creatinine Equation (2020) Potassium measurement (mass/ volume)Ordered By: David Miramontes on 09-07-2024 Potassium (Unsp spec) [Mass/Vol] 4.0 mmol/L 3.3-5.[address] [facility] Serum creatinine measurement (mass/volume)Ordered By: David Miramontes on 09-07-2024 Creatinine [Mass/Vol] 1.02 mg/dL 0.70-1.20 [facility] Serum glucose measurement (m ass/volume)Ordered By: David Miramontes on 09-07-2024 Glucose [Mass/Vol] 80 mg/dL 70-99 [facility] Serum or plasma calcium siobhan urement (mass/volume)Ordered By: David Miramontes on 09-07-2024 Calcium [Mass/Vol] 9.3 mg/dL 7.6-11.0 [facility] Serum or plasma urea nitroge n measurement (mass/volume)Ordered By: David Miramontes on 09-07-2024 Urea nitrogen [Mass/Vol] 16 mg/dL 4-[address] [facility] Sodium levelOrdered By: Frandy Miramontes on 09-07-2024 Sodium [Moles/Vol] 141 mmol/L 133-145 [facility] Anion gap in Serum or Plasma Ordered By: David Miramontes on 08-31-2024 Anion gap [Moles/Vol] 10 mmol/L 5-15 [facility] BUN/creatinine ratioOrdered By: David Miramontes on 08-31-2024 Urea nitrogen/Creatinine [Mass ratio] 12.4 mg/mg 10-[address] [facility] Carbon dioxide, total [Moles /volume] in Central venous bloodOrdered By: David Miramontes on 08-31-2024 CO2 [Moles/Vol] 26.4 mmol/L 21.0-32.[address] [facility] Chloride assayOrdered By: Mayra Miramontes on 08-31-2024 Chloride [Moles/Vol] 103 mmol/L 98-[address] [facility] Glomerular filtration rate ( GFR) estimation/1.73 sq m using serum, plasma, or whole bOrdered By: David Miramontes on 08-31-2024 GFR/1.73 sq M.predicted among non-blacks MDRD (S/P/Bld) [Vol rate/Area] 80 mL/min/{1.73_m2} >[address] [facility] Comment on above: mL/min/1.73m2 CKD-EP I Creatinine Equation (2020) Potassium measurement (mass/ volume)Ordered By: David Miramontes on 08-31-2024 Potassium (Unsp spec) [Mass/Vol] 4.2 mmol/L 3.3-5.[address] [facility] Serum creatinine measurement (mass/volume)Ordered By: David Miramontes on 08-31-2024 Creatinine [Mass/Vol] 0.93 mg/dL 0.70-1.20 [facility] Serum glucose measurement (m ass/volume)Ordered By: David Miramontes on 08-31-2024 Glucose [Mass/Vol] 86 mg/dL 70-99 [facility] Serum or plasma calcium siobhan urement (mass/volume)Ordered By: David Miramontes on 08-31-2024 Calcium [Mass/Vol] 9.4 mg/dL 7.6-11.0 [facility] Serum or plasma urea nitroge n measurement (mass/volume)Ordered By: David Miramontes on 08-31-2024 Urea nitrogen [Mass/Vol] 12 mg/dL 4-[address] [facility] Sodium levelOrdered By: Frandy carleen Kulwinder on 08-31-2024 Sodium [Moles/Vol] 139 mmol/L 133-145 [facility] Absolute lymphocyte countOrd ered By: David Miramontes on 08-22-2024 Lymphocytes Auto (Unsp spec) [#/Vol] 1.28 10*3/uL 0.83-4.[address] [facility] Absolute neutrophil countOrd ered By: David Miramontes on 08-22-2024 Neutrophils (Bld) [#/Vol] 5.0 10*3/uL 2.0-7.[address] [facility] Anion gap in Serum or Plasma Ordered By: David Miramontes on 08-22-2024 Anion gap [Moles/Vol] 8 mmol/L 5-15 [facility] Automated lymphocyte count a s percentage of total leukocytesOrdered By: David Miramontes on 08-22-2024 Lymphocytes/100 WBC Auto (Unsp spec) 17.6 % Low 19-[address] [facility] BUN/creatinine ratioOrdered By: David Miramontes on 08-22-2024 Urea nitrogen/Creatinine [Mass ratio] 13.7 mg/mg 10-[address] [facility] Basophil percentageOrdered B y: David Miramontes on 08-22-2024 Basophils/100 WBC (Bld) 0.7 % 0-1 [facility] Bilirubin, totalOrdered By: David Miramontes on 08-22-2024 Bilirubin [Mass/Vol] 0.31 mg/dL 0.00-1.[address] [facility] Carbon dioxide, total [Moles /volume] in Central venous bloodOrdered By: David Miramontes on 08-22-2024 CO2 [Moles/Vol] 28.1 mmol/L 21.0-32.[address] [facility] Chloride assayOrdered By: Mayra Miramontes on 08-22-2024 Chloride [Moles/Vol] 107 mmol/L 98-[address] [facility] Eosinophil percentageOrdered By: David Miramontes on 08-22-2024 Eosinophils/100 WBC (Bld) 2.6 % 0-[address] [facility] Erythrocyte distribution wid th ratioOrdered By: David Miramontes on 08-22-2024 Erythrocyte distribution width (RBC) [Ratio] 15.3 % High 11.6-14.[address] [facility] Erythrocyte distribution wid th standard deviationOrdered By: David Miramontes on 08-22-2024 Erythrocyte distribution width (RBC) [Ratio] 57.1 fl High 35.1-43.[address] [facility] Glomerular filtration rate ( GFR) estimation/1.73 sq m using serum, plasma, or whole bOrdered By: David Miramontes on 08-22-2024 GFR/1.73 sq M.predicted among non-blacks MDRD (S/P/Bld) [Vol rate/Area] 78 mL/min/{1.73_m2} >[address] [facility] Comment on above: mL/min/1.73m2 CKD-EP I Creatinine Equation (2020) Hematocrit Auto (Bld) [Volum e fraction]Ordered By: David Miramontes on 08-22-2024 Hematocrit (Bld) [Volume fraction] 41.1 % 40-[address] [facility] Hemoglobin measurementOrdere d By: David Miramontes on 08-22-2024 Hemoglobin (Bld) [Mass/Vol] 12.9 g/dL Low 13.0-16.[address] [facility] Immature granulocytes/100 WB C Auto (Bld)Ordered By: David Miramontes on 08-22-2024 Immature granulocytes/100 WBC (Bld) 0.600 % 0.0-0.[address] [facility] Comment on above: IG% - Immature Granu locytes (promyelocytes, myelocytes and metamyelocytes) > 1% indicates that a LEFT SHIFT is Present. Laboratory - Chemistry and C hemistry - challengeOrdered By: David Miramontes on 08-22-2024 AST [Catalytic activity/Vol] 34 U/L <[address] [facility] MCV (mean corpuscular volume ) determinationOrdered By: David Miramontes on 08-22-2024 MCV (RBC) [Entitic vol] 102.5 fL High 80-94 [facility] Mean corpuscular hemoglobin (MCH) determinationOrdered By: David Miramontes on 08-22-2024 MCH (RBC) [Entitic mass] 32.2 pg High 27.0-32.[address] [facility] Mean corpuscular hemoglobin concentration (MCHC) determinationOrdered By: David Miramontes on 08-22-2024 MCHC (RBC) [Mass/Vol] 31.4 g/dL Low 32-36 [facility] Mean platelet volume determi nationOrdered By: David Miramontes on 08-22-2024 Platelet mean volume (Bld) [Entitic vol] 11.4 fL 6.2-12.[address] [facility] Monocyte percentageOrdered B y: David Miramontes on 08-22-2024 Monocytes/100 WBC (Bld) 10.0 % 0-10 [facility] Neutrophil percentageOrdered By: David Miramontes on 08-22-2024 Neutrophils/100 WBC (Bld) 68.5 % 47-[address] [facility] Nucleated red blood cell per centageOrdered By: David Miramontes on 08-22-2024 Nucleated RBC/100 WBC (Bld) [Ratio] 0 % 0-[address] [facility] Platelet countOrdered By: Mayra Miramontes on 08-22-2024 Platelets (Bld) [#/Vol] 170 10*3/uL 150-[address] [facility] Potassium measurement (mass/ volume)Ordered By: David Miramontes on 08-22-2024 Potassium (Unsp spec) [Mass/Vol] 3.8 mmol/L 3.3-5.[address] [facility] RBC Auto (Bld) [#/Vol]Ordere d By: David Miramontes on 08-22-2024 RBC (Bld) [#/Vol] 4.01 10*6/uL Low 4.6-6.2 [facility] Serum creatinine measurement (mass/volume)Ordered By: David Miramontes on 08-22-2024 Creatinine [Mass/Vol] 0.96 mg/dL 0.70-1.20 [facility] Serum globulin measurementOr dered By: David Miramontes on 08-22-2024 Globulin (S) [Mass/Vol] 2.7 g/dL 2.2-4.2 [facility] Serum glucose measurement (m ass/volume)Ordered By: David Miramontes on 08-22-2024 Glucose [Mass/Vol] 82 mg/dL 70-99 [facility] Serum or plasma alanine grant otransferase (ALT) measurementOrdered By: David Miramontes on 08-22-2024 ALT [Catalytic activity/Vol] 13 U/L <[address] [facility] Serum or plasma albumin siobhan urement (mass/volume)Ordered By: David Miramontes on 08-22-2024 Albumin [Mass/Vol] 3.5 g/dL 3.4-4.8 [facility] Serum or plasma albumin/glob ulin mass ratioOrdered By: David Miramontes on 08-22-2024 Albumin/Globulin [Mass ratio] 1.3 {ratio} 0.9-2.[address] [facility] Serum or plasma alkaline deven sphatase measurementOrdered By: David Miramontes on 08-22-2024 ALP [Catalytic activity/Vol] 106 U/L 40-[address] [facility] Serum or plasma calcium siobhan urement (mass/volume)Ordered By: David Miramontes on 08-22-2024 Calcium [Mass/Vol] 8.9 mg/dL 7.6-11.0 [facility] Serum or plasma urea nitroge n measurement (mass/volume)Ordered By: David Miramontes on 08-22-2024 Urea nitrogen [Mass/Vol] 13 mg/dL 4-[address] [facility] Sodium levelOrdered By: rFandy Miramontes on 08-22-2024 Sodium [Moles/Vol] 142 mmol/L 133-145 [facility] Total proteinOrdered By: Lg Miramontes on 08-22-2024 Protein [Mass/Vol] 6.2 g/dL 5.9-8.4 [facility] White blood cell (WBC) count Ordered By: David Miramontes on 08-22-2024 WBC (Bld) [#/Vol] 7.3 10*3/uL 4.4-11.0 [facility] Anion gap in Serum or Plasma Ordered By: David Miramontes on 08-02-2024 Anion gap [Moles/Vol] 11 mmol/L 5-15 [facility] BUN/creatinine ratioOrdered By: David Miramontes on 08-02-2024 Urea nitrogen/Creatinine [Mass ratio] 12.3 mg/mg 10-[address] [facility] Carbon dioxide, total [Moles /volume] in Central venous bloodOrdered By: David Miramontes on 08-02-2024 CO2 [Moles/Vol] 24.2 mmol/L 21.0-32.[address] [facility] Chloride assayOrdered By: Mayra Miramontes on 08-02-2024 Chloride [Moles/Vol] 105 mmol/L 98-[address] [facility] Glomerular filtration rate ( GFR) estimation/1.73 sq m using serum, plasma, or whole bOrdered By: David Miramontes on 08-02-2024 GFR/1.73 sq M.predicted among non-blacks MDRD (S/P/Bld) [Vol rate/Area] 73 mL/min/{1.73_m2} >[address] [facility] Comment on above: mL/min/1.73m2 CKD-EP I Creatinine Equation (2020) Potassium measurement (mass/ volume)Ordered By: David Miramontes on 08-02-2024 Potassium (Unsp spec) [Mass/Vol] 3.7 mmol/L 3.3-5.[address] [facility] Serum creatinine measurement (mass/volume)Ordered By: waynenapoleoningris Miramontes on 08-02-2024 Creatinine [Mass/Vol] 1.01 mg/dL 0.70-1.20 [facility] Serum glucose measurement (m ass/volume)Ordered By: waynenapoleoningris Miramontes on 08-02-2024 Glucose [Mass/Vol] 140 mg/dL High 70-99 [facility] Serum or plasma calcium siobhan urement (mass/volume)Ordered By: David Miramontes on 08-02-2024 Calcium [Mass/Vol] 9.1 mg/dL 7.6-11.0 [facility] Serum or plasma urea nitroge n measurement (mass/volume)Ordered By: Frandynapoleoningris Miramontes on 08-02-2024 Urea nitrogen [Mass/Vol] 12 mg/dL 4-[address] [facility] Sodium levelOrdered By: [facility] adeliabrian Kulwinder on 08-02-2024 Sodium [Moles/Vol] 141 mmol/L 133-145 [facility] Absolute lymphocyte countOrd ered By: David Miramontes on 08-01-2024 Lymphocytes Auto (Unsp spec) [#/Vol] 1.39 10*3/uL 0.83-4.[address] [facility] Absolute neutrophil countOrd ered By: danay Miramontes on 08-01-2024 Neutrophils (Bld) [#/Vol] 4.8 10*3/uL 2.0-7.[address] [facility] Automated lymphocyte count a s percentage of total leukocytesOrdered By: David Miramontes on 08-01-2024 Lymphocytes/100 WBC Auto (Unsp spec) 18.9 % Low 19-[address] [facility] Basophil percentageOrdered B y: David Guerrabrian on 08-01-2024 Basophils/100 WBC (Bld) 0.4 % 0-1 [facility] Eosinophil percentageOrdered By: [facility] Joesphamnabrian on 08-01-2024 Eosinophils/100 WBC (Bld) 2.6 % 0-[address] [facility] Erythrocyte distribution wid th ratioOrdered By: [facility] Guerr[facility] on 08-01-2024 Erythrocyte distribution width (RBC) [Ratio] 15.5 % High 11.6-14.[address] [facility] Erythrocyte distribution wid th standard deviationOrdered By: [facility] Joesphamnabrian on 08-01-2024 Erythrocyte distribution width (RBC) [Ratio] 57.9 fl High 35.1-43.[address] [facility] Hematocrit Auto (Bld) [Volum e fraction]Ordered By: [facility] Joesphbrian on 08-01-2024 Hematocrit (Bld) [Volume fraction] 40.2 % 40-[address] [facility] Hemoglobin measurementOrdere d By: waynenapoleoningris Joesphamnabrian on 08-01-2024 Hemoglobin (Bld) [Mass/Vol] 12.6 g/dL Low 13.0-16.[address] [facility] Immature granulocytes/100 WB C Auto (Bld)Ordered By: waynenapoleoningris Pinkamnabrian on 08-01-2024 Immature granulocytes/100 WBC (Bld) 0.400 % 0.0-0.[address] [facility] Comment on above: IG% - Immature Granu locytes (promyelocytes, myelocytes and metamyelocytes) > 1% indicates that a LEFT SHIFT is Present. MCV (mean corpuscular volume ) determinationOrdered By: waynenapoleoningris Miramontes on 08-01-2024 MCV (RBC) [Entitic vol] 100.8 fL High 80-94 [facility] Mean corpuscular hemoglobin (MCH) determinationOrdered By: [facility] Pinkamnabrian on 08-01-2024 MCH (RBC) [Entitic mass] 31.6 pg 27.0-32.[address] [facility] Mean corpuscular hemoglobin concentration (MCHC) determinationOrdered By: [facility] Pinkamnabrian on 08-01-2024 MCHC (RBC) [Mass/Vol] 31.3 g/dL Low 32-36 [facility] Mean platelet volume determi nationOrdered By: David Miramontes on 08-01-2024 Platelet mean volume (Bld) [Entitic vol] 11.8 fL 6.2-12.[address] [facility] Monocyte percentageOrdered B y: Mayrafawadingris Pinkamnabrian on 08-01-2024 Monocytes/100 WBC (Bld) 12.5 % High 0-10 [facility] Neutrophil percentageOrdered By: Vickyingris Charliebrian on 08-01-2024 Neutrophils/100 WBC (Bld) 65.2 % 47-[address] [facility] Nucleated red blood cell per centageOrdered By: David Miramontes on 08-01-2024 Nucleated RBC/100 WBC (Bld) [Ratio] 0 % 0-[address] [facility] Platelet countOrdered By: Mayra danay Joesphamnabrian on 08-01-2024 Platelets (Bld) [#/Vol] 182 10*3/uL 150-[address] [facility] RBC Auto (Bld) [#/Vol]Ordere d By: David Miramontes on 08-01-2024 RBC (Bld) [#/Vol] 3.99 10*6/uL Low 4.6-6.2 [facility] White blood cell (WBC) count Ordered By: Frandyfeliciaingris Pinkamnabrian on 08-01-2024 WBC (Bld) [#/Vol] 7.4 10*3/uL 4.4-11.0 [facility] Absolute lymphocyte countOrd ered By: David Guerrabrian on 07-21-2024 Lymphocytes Auto (Unsp spec) [#/Vol] 1.21 10*3/uL 0.83-4.[address] [facility] Absolute neutrophil countOrd ered By: David Guerrabrian on 07-21-2024 Neutrophils (Bld) [#/Vol] 5.1 10*3/uL 2.0-7.[address] [facility] Anion gap in Serum or Plasma Ordered By: David Pinkamnabrian on 07-21-2024 Anion gap [Moles/Vol] 10 mmol/L 5-15 [facility] Automated lymphocyte count a s percentage of total leukocytesOrdered By: David Miarmontes on 07-21-2024 Lymphocytes/100 WBC Auto (Unsp spec) 16.7 % Low 19-[address] [facility] BUN/creatinine ratioOrdered By: David Miramontes on 07-21-2024 Urea nitrogen/Creatinine [Mass ratio] 16.2 mg/mg 10-[address] [facility] Basophil percentageOrdered B y: David Miramontes on 07-21-2024 Basophils/100 WBC (Bld) 0.4 % 0-1 [facility] Carbon dioxide, total [Moles /volume] in Central venous bloodOrdered By: David Miramontes on 07-21-2024 CO2 [Moles/Vol] 25.5 mmol/L 21.0-32.[address] [facility] Chloride assayOrdered By: Mayra Miramontes on 07-21-2024 Chloride [Moles/Vol] 106 mmol/L 98-[address] [facility] Eosinophil percentageOrdered By: David Miramontes on 07-21-2024 Eosinophils/100 WBC (Bld) 1.4 % 0-[address] [facility] Erythrocyte distribution wid th ratioOrdered By: David Miramontes on 07-21-2024 Erythrocyte distribution width (RBC) [Ratio] 15.4 % High 11.6-14.[address] [facility] Erythrocyte distribution wid th standard deviationOrdered By: David Miramontes on 07-21-2024 Erythrocyte distribution width (RBC) [Ratio] 57.9 fl High 35.1-43.[address] [facility] Glomerular filtration rate ( GFR) estimation/1.73 sq m using serum, plasma, or whole bOrdered By: David Miramontes on 07-21-2024 GFR/1.73 sq M.predicted among non-blacks MDRD (S/P/Bld) [Vol rate/Area] 67 mL/min/{1.73_m2} >[address] [facility] Comment on above: mL/min/1.73m2 CKD-EP I Creatinine Equation (2020) Hematocrit Auto (Bld) [Volum e fraction]Ordered By: David Miramontes on 07-21-2024 Hematocrit (Bld) [Volume fraction] 39.0 % Low 40-[address] [facility] Hemoglobin measurementOrdere d By: David Miramontes on 07-21-2024 Hemoglobin (Bld) [Mass/Vol] 12.4 g/dL Low 13.0-16.[address] [facility] Immature granulocytes/100 WB C Auto (Bld)Ordered By: David Miramontes on 07-21-2024 Immature granulocytes/100 WBC (Bld) 0.400 % 0.0-0.[address] [facility] Comment on above: IG% - Immature Granu locytes (promyelocytes, myelocytes and metamyelocytes) > 1% indicates that a LEFT SHIFT is Present. MCV (mean corpuscular volume ) determinationOrdered By: David Miramontes on 07-21-2024 MCV (RBC) [Entitic vol] 101.0 fL High 80-94 [facility] Mean corpuscular hemoglobin (MCH) determinationOrdered By: David Miramontes on 07-21-2024 MCH (RBC) [Entitic mass] 32.1 pg High 27.0-32.[address] [facility] Mean corpuscular hemoglobin concentration (MCHC) determinationOrdered By: David Miramontes on 07-21-2024 MCHC (RBC) [Mass/Vol] 31.8 g/dL Low 32-36 [facility] Mean platelet volume determi nationOrdered By: David Miramontes on 07-21-2024 Platelet mean volume (Bld) [Entitic vol] 11.7 fL 6.2-12.[address] [facility] Monocyte percentageOrdered B y: David Miramontes on 07-21-2024 Monocytes/100 WBC (Bld) 11.3 % High 0-10 [facility] Neutrophil percentageOrdered By: [facility] Pinkbrian on 07-21-2024 Neutrophils/100 WBC (Bld) 69.8 % 47-[address] [facility] Nucleated red blood cell per centageOrdered By: danay Miramontes on 07-21-2024 Nucleated RBC/100 WBC (Bld) [Ratio] 0 % 0-[address] [facility] Platelet countOrdered By: Mayra fawadingris Miramontes on 07-21-2024 Platelets (Bld) [#/Vol] 172 10*3/uL 150-[address] [facility] Potassium measurement (mass/ volume)Ordered By: Frandyfeliciaingris Pinkamnabrian on 07-21-2024 Potassium (Unsp spec) [Mass/Vol] 3.9 mmol/L 3.3-5.[address] [facility] RBC Auto (Bld) [#/Vol]Ordere d By: Frandyfeliciaingris Miramontes on 07-21-2024 RBC (Bld) [#/Vol] 3.86 10*6/uL Low 4.6-6.2 [facility] Serum creatinine measurement (mass/volume)Ordered By: David Miramontes on 07-21-2024 Creatinine [Mass/Vol] 1.08 mg/dL 0.70-1.20 [facility] Serum glucose measurement (m ass/volume)Ordered By: David Miramontes on 07-21-2024 Glucose [Mass/Vol] 90 mg/dL 70-99 [facility] Serum or plasma calcium siobhan urement (mass/volume)Ordered By: David Pinkamnabrian on 07-21-2024 Calcium [Mass/Vol] 9.1 mg/dL 7.6-11.0 [facility] Serum or plasma urea nitroge n measurement (mass/volume)Ordered By: David Miramontes on 07-21-2024 Urea nitrogen [Mass/Vol] 18 mg/dL 4-[address] [facility] Sodium levelOrdered By: Frandy chavezyonatan Kulwinder on 07-21-2024 Sodium [Moles/Vol] 141 mmol/L 133-145 [facility] TSH DL <= 0.005 mIU/L QnOrde red By: David Pinkamnabrian on 07-21-2024 TSH Qn 2.450 uIU/mL 0.300-4.[address] [facility] White blood cell (WBC) count Ordered By: David Miramontes on 07-21-2024 WBC (Bld) [#/Vol] 7.3 10*3/uL 4.4-11.0 [facility] BLADDER SCANon 07-14-2024 PVR 59 Cc [facility] BLADDER SCANOrdered By: Dayo Perez on 07-14-2024 [facility] CNOVon 07-14-2024 CNOV Office Visit (AKURFL) KEL DILLARD ([id number]) 1940 M Date Time Provider Department 07/14/24 9:00 AM DIANA ARANGO During your visit today, we recorded the following information about you: Diana Arango APRN.[facility] 07/14/2024 9:11 AM Signed [facility] Urological AND Kidney [facility] - [place] [facility] NEW PATIENT UROLOGY VISIT 07/14/2024 8:51 AM [...] (more content not included)... Normal [facility] CYTOLOGY NON-GYNon 5 AP DISCLAIMER Normal [facility] Comment on above: Order Comment: Speci men Type: URINE SPECIMEN Ordering Facility: [facility] Address: [address] [place] [address] [place] [address] Result Comment: Hussain blanco Developed Test (LDT) Disclaimer: Performance characteristics of immunohistochemical, immunofluorescent, and chromogenic in-situ hybridization tests have been determined by the performing laboratory within [facility]'s [facility] Pathology and Laboratory Medicine Department ([facility], [facility], [facility], [facility], [facility], [facility], or [facility]) in a manner consistent with CLIA [...] appropriately. Performed By: #### C YTONON #### [facility] CLIA [id number] [address] CASE REPORT Normal [facility] Comment on above: Order Comment: Speci men Type: URINE SPECIMEN Ordering Facility: [facility] Address: [address] [place] [address] Result Comment: [facility] Cytology Report Case: [id number] Authorizing Provider: Diana Arango Collected: 07/14/2024 09:01 AM APRN. DonWAGON DRIVER SALESPERSON Ordering Location: [facility] Received: 07/17/2024 03:50 AM Pathologist: Rosy Cavazos MD Specimen: Urine, Midstream Performed By: #### C YTONON #### [facility] CLIA [id number] [address] CLINICAL HISTORY gross hematuria Normal [facility] Comment on above: Order Comment: Speci men Type: URINE SPECIMEN Ordering Facility: [facility] Address: [address] [place] [address] Performed By: #### C YTONON #### [facility] CLIA [id number] [address] [place] [address] Normal [facility] Comment on above: Order Comment: Speci men Type: URINE SPECIMEN Ordering Facility: [facility] Address: [address] [place] [address] Result Comment: A - Urine, Midstream Negative for high-grade urothelial carcinoma. Blood. at 1046 EDT Performed By: #### C YTONON #### [facility] CLIA [id number] [address] [place] [address] FINAL PERFORMING LAB Normal [facility] Comment on above: Order Comment: Speci men Type: URINE SPECIMEN Ordering Facility: [facility] Address: [address] [place] [address] Result Comment: Tech nical component, cargo tank mechanic screening performed at: [facility], [address] [address] CLIA: [id number] Diagnostic interpretation performed at: [facility], [address] [address] CLIA# [id number] Transmission Repairer: Josiah Ochoa MD Performed By: #### C YTONON #### [facility] CLIA [id number] [address] GROSS DESCRIPTION Normal [facility] Comment on above: Order Comment: Speci men Type: URINE SPECIMEN Ordering Facility: [facility] Address: [address] [place] [address] Result Comment: A. U rine, Midstream 7.5 cc cloudy yellow fluid. ThinPrep prepared. Performed By: #### C YTONON #### [facility] CLIA [id number] [address] UA DIP, URINE (POC)on 2024 BILIRUBIN UA (POCT) Negative Negative [facility] CLARITY UA (POCT) Clear [facility] COLOR UA (POCT) Yellow [facility] GLUCOSE UA (POCT) Negative Negative mg/dL [facility] Hemoglobin Ql (U) Trace-intact Abnormal Negative [facility] Interpretation and review of laboratory results Abnormal [facility] KETONE UA (POCT) Negative Negative mg/dL [facility] LEUKOCYTES UA (POCT) Negative [facility] NITR[facility] (POCT) Negative [facility] PH UA (POCT) 5.5 4.5 - 8.0 [facility] Protein Ql (U) 30 mg/dL Abnormal Negative [facility] SPECIFIC GRAVITY UA (POCT) 1.025 1.005 - 1.030 [facility] UROBILINOGEN UA (POCT) 0.2 Debbie l E.U./dL [facility] Location:[facility], [address] [place] [address], [address] [facility] POINT OF CARE [facility] Serum or plasma uric acid me asurement (mass/volume)Ordered By: David Miramontes on 06-23-2024 Urate [Mass/Vol] 4.2 mg/dL 3.5-7.[address] [facility] Comment on above: The drugs N-Acetylcy steine and Metamizole may falsely depress this assay. Absolute lymphocyte countOrd ered By: David Miramontes on 06-05-2024 Lymphocytes Auto (Unsp spec) [#/Vol] 1.05 10*3/uL 0.83-4.[address] [facility] Absolute neutrophil countOrd ered By: David Miramontes on 06-05-2024 Neutrophils (Bld) [#/Vol] 4.8 10*3/uL 2.0-7.[address] [facility] Anion gap in Serum or Plasma Ordered By: David Miramontes on 06-05-2024 Anion gap [Moles/Vol] 11 mmol/L 5-15 [facility] Automated lymphocyte count a s percentage of total leukocytesOrdered By: David Miramontes on 06-05-2024 Lymphocytes/100 WBC Auto (Unsp spec) 15.8 % Low 19-[address] [facility] BUN/creatinine ratioOrdered By: David Miramontes on 06-05-2024 Urea nitrogen/Creatinine [Mass ratio] 9.3 mg/mg Low 10-[address] [facility] Basophil percentageOrdered B y: David Miramontes on 06-05-2024 Basophils/100 WBC (Bld) 1.1 % High 0-1 [facility] Carbon dioxide, total [Moles /volume] in Central venous bloodOrdered By: David Miramontes on 06-05-2024 CO2 [Moles/Vol] 26.8 mmol/L 21.0-32.[address] [facility] Chloride assayOrdered By: Mayra Miramontes on 06-05-2024 Chloride [Moles/Vol] 101 mmol/L 98-[address] [facility] Eosinophil percentageOrdered By: David Miramontes on 06-05-2024 Eosinophils/100 WBC (Bld) 2.3 % 0-[address] [facility] Erythrocyte distribution wid th (RBC) [Ratio]Ordered By: David Miramontes on 06-05-2024 Erythrocyte distribution width (RBC) [Entitic vol] 55.4 fL High 35.1-43.[address] [facility] Erythrocyte distribution wid th ratioOrdered By: David Miramontes on 06-05-2024 Erythrocyte distribution width (RBC) [Ratio] 15.0 % High 11.6-14.[address] [facility] Erythrocyte distribution wid th standard deviationOrdered By: David Miramontes on 06-05-2024 Erythrocyte distribution width (RBC) [Ratio] 55.4 fl High 35.1-43.[address] [facility] GFR/1.73 sq M.predicted eleazar g non-blacks MDRD (S/P/Bld) [Vol rate/Area]Ordered By: David Miramontes on 06-05-2024 Estimated GFR (MDRD) Non-Af Amer 48 Low >[address] [facility] Comment on above: mL/min/1.73m2 CKD-EP I Creatinine Equation (2020) Glomerular filtration rate ( GFR) estimation/1.73 sq m using serum, plasma, or whole bOrdered By: David Miramontes on 06-05-2024 GFR/1.73 sq M.predicted among non-blacks MDRD (S/P/Bld) [Vol rate/Area] 48 mL/min/{1.73_m2} Low >[address] [facility] Comment on above: mL/min/1.73m2 CKD-EP I Creatinine Equation (2020) Hematocrit Auto (Bld) [Volum e fraction]Ordered By: David Miramontes on 06-05-2024 Hematocrit (Bld) [Volume fraction] 41.8 % 40-[address] [facility] Hemoglobin measurementOrdere d By: David Miramontes on 06-05-2024 Hemoglobin (Bld) [Mass/Vol] 13.3 g/dL 13.0-16.[address] [facility] Immature granulocytes/100 WB C Auto (Bld)Ordered By: David Miramontes 06-05-2024 Immature granulocytes/100 WBC (Bld) 0.300 % 0.0-0.[address] [facility] Comment on above: IG% - Immature Granu locytes (promyelocytes, myelocytes and metamyelocytes) > 1% indicates that a LEFT SHIFT is Present. Lymphocytes Auto (Unsp spec) [#/Vol]Ordered By: David Miramontes on 06-05-2024 Lymphocytes (Bld) [#/Vol] 1.05 10*3/uL 0.83-4.[address] [facility] Lymphocytes/100 WBC Auto (Un sp spec)Ordered By: David Miramontes on 06-05-2024 Lymphocytes/100 WBC (Bld) 15.8 % Low 19-[address] [facility] MCV (mean corpuscular volume ) determinationOrdered By: David Miramontes on 06-05-2024 MCV (RBC) [Entitic vol] 100.5 fL High 80-94 [facility] Mean corpuscular hemoglobin (MCH) determinationOrdered By: waynenapoleoningris Miramontes on 06-05-2024 MCH (RBC) [Entitic mass] 32.0 pg 27.0-32.[address] [facility] Mean corpuscular hemoglobin concentration (MCHC) determinationOrdered By: David Miramontes on 06-05-2024 MCHC (RBC) [Mass/Vol] 31.8 g/dL Low 32-36 [facility] Mean platelet volume determi nationOrdered By: David Miramontes on 06-05-2024 Platelet mean volume (Bld) [Entitic vol] 11.3 fL 6.2-12.[address] [facility] Monocyte percentageOrdered B y: David Miramontes on 06-05-2024 Monocytes/100 WBC (Bld) 8.9 % 0-10 [facility] Neutrophil percentageOrdered By: danay Miramontes on 06-05-2024 Neutrophils/100 WBC (Bld) 71.6 % High 47-[address] [facility] Nucleated red blood cell per centageOrdered By: David Miramontes on 06-05-2024 Nucleated RBC/100 WBC (Bld) [Ratio] 0 % 0-[address] [facility] Platelet countOrdered By: Mayra Miramontes on 06-05-2024 Platelets (Bld) [#/Vol] 216 10*3/uL 150-[address] [facility] Potassium (Unsp spec) [Mass/ Vol]Ordered By: David Miramontes on 06-05-2024 Potassium [Moles/Vol] 3.9 mmol/L 3.3-5.1 [facility] Potassium measurement (mass/ volume)Ordered By: David Miramontes on 06-05-2024 Potassium (Unsp spec) [Mass/Vol] 3.9 mmol/L 3.3-5.[address] [facility] RBC Auto (Bld) [#/Vol]Ordere d By: Frandyfeliciaingris Miramontes on 06-05-2024 RBC (Bld) [#/Vol] 4.16 10*6/uL Low 4.6-6.2 [facility] Serum creatinine measurement (mass/volume)Ordered By: David Miramontes on 06-05-2024 Creatinine [Mass/Vol] 1.42 mg/dL High 0.70-1.20 [facility] Serum glucose measurement (m ass/volume)Ordered By: David Miramontes on 06-05-2024 Glucose [Mass/Vol] 85 mg/dL 70-99 [facility] Serum or plasma calcium siobhan urement (mass/volume)Ordered By: David Miramontes on 06-05-2024 Calcium [Mass/Vol] 9.0 mg/dL 7.6-11.0 [facility] Serum or plasma urea nitroge n measurement (mass/volume)Ordered By: David Miramontes on 06-05-2024 Urea nitrogen [Mass/Vol] 13 mg/dL 4-[address] [facility] Sodium levelOrdered By: Frandy chavezsonibrian Miramontes on 06-05-2024 Sodium [Moles/Vol] 139 mmol/L 133-145 [facility] White blood cell (WBC) count Ordered By: David Miramontes on 06-05-2024 WBC (Bld) [#/Vol] 6.6 10*3/uL 4.4-11.0 [facility] Amorphous sediment detection in urine sediment by light microscopyOrdered By: David Miramontes on 05-30-2024 Amorphous sediment LM Ql (Urine sed) 1+ [facility] Ankle Brachial Indexon 05-30 Ankle Brachial Index [facility] [address] [place] [address] Ankle Brachial Index 05/30/24 0904 MR#: [id number] Acct: [id number] Name: KEL DILLARD Rep #: [id number] : 1940 84 From: Josiah Klein MD [...] MIRAMONTES MD Performed By: Yasmine May Silvana, RD 05/30/24 1543 Date Josiah Klein MD CC: Dr. David Miramontes MD Date Dictated: 05/30/24 0904 Date Transcribed: 05/30/241542 Cold Working Inspector: Signed Normal [facility] Arterial study reportOrdered By: Josiah Klein on 05-30-2024 Noninvasive arteriosclerosis study report [facility] [address] [place] [id number] Ankle Brachial Index 05/30/24 0904 MR#: [id number] Acct: [id number] Name: KEL DILLARD Rep #:[id number] : 1940 84 From: Josiah Naranjo Attending Dr: Dr. David Miramontes MD Status: REG CLI Ordering Dr: David Miramontes MD Date: 05/30/24 Location: [facility] Sex: M C Admitted: Reason [...] Date Dictated: 05/30/24 0904 Date Transcribed: 05/30/241542 Cold Working Inspector: Signed [facility] Work Phone: Bilirubin Test strip Ql (U)O rdered By: David Miramontes on 05-30-2024 Bilirubin Ql (U) Negative Negative [facility] Epithelial cells.squamous LM Ql (Urine sed)Ordered By: David Miramontes on 05-30-2024 Epithelial cells.squamous LM.HPF (Urine sed) [#/Area] 0 /[HPF] 0-[address] [facility] Glucose Ql (U)Ordered By: Mayra Miramontes on 05-30-2024 Urine Glucose (UA) Normal mg/dl Normal [facility] Ketones Test strip Ql (U)Ord ered By: David Miramontes on 05-30-2024 Ketones Ql (U) Negative Negative [facility] Microscopic analysis of urin e for red blood cells (RBC)Ordered By: David Miramontes on 05-30-2024 Microscopic analysis of urine for red blood cells (RBC) > 100 SEEN /hpf 0-[address] [facility] Urine RBC > 100 SEEN /hpf 0-[address] [facility] Mucus LM Ql (Urine sed)Order ed By: David Miramontes on 05-30-2024 Mucus Ql (Urine sed) 0 SEEN /hpf [facility] Nitrite Test strip Ql (U)Ord ered By: David Miramontes on 05-30-2024 Nitrite Ql (U) Positive High Negative [facility] PSA, total screeningOrdered By: David Miramontes on 05-30-2024 Prostate Specific Antigen Screen 3.08 ng/mL 0.02-4.[address] [facility] Comment on above: This test was [...] Protein Ql (U) 500 mg/dl High Negative [facility] Squamous epithelial cells de tection in urine sediment by light microscopyOrdered By: David Miramontes on 05-30-2024 Epithelial cells.squamous LM Ql (Urine sed) 0-5 SEEN /hpf 0-[address] [facility] Urine blood detectionOrdered By: David Miramontes on 05-30-2024 Urine Occult Blood 250 /ul High Negative [facility] Urine clarityOrdered By: Lg Miramontes on 05-30-2024 Clarity (U) Cloudy Clear [facility] Urine color determinationOrd ered By: David Miramontes on 05-30-2024 Color (U) Brown Yellow [facility] Urine cultureOrdered By: Lg Miramontes on 05-30-2024 Bacteria identified Cx Nom (U) Proteus mirabilis Abnormal [facility] Urine glucose detectionOrder ed By: David Miramontes on 05-30-2024 Glucose Ql (U) Normal mg/dl Normal [facility] Urine leukocyte esterase det ection by dipstickOrdered By: David Miramontes on 05-30-2024 Leukocyte esterase Test strip Ql (U) 500 /ul High Negative [facility] Urine pHOrdered By: Leo Miramontes on 05-30-2024 pH (U) 6.5 [pH] 5.0 - 8.[address] [facility] Urine sediment bacteria coun t by microscopy (number/high power field)Ordered By: David Miramontes on 05-30-2024 Bacteria LM.HPF (Urine sed) [#/Area] 2 /[HPF] None Seen [facility] Urine specific gravity measu rementOrdered By: David Miramontes on 05-30-2024 Specific gravity (U) [Rel density] 1.015 1.002-1.[address] [facility] Urine urobilinogen measureme ntOrdered By: David Miramontes on 05-30-2024 Urobilinogen Ql (U) 1 mg/dl High Normal [facility] Urobilinogen Ql (U)Ordered B y: David Miramontes on 05-30-2024 Urobilinogen (U) [Mass/Vol] 1 mg/dL High Normal [facility] White blood cell countOrdere d By: David Miramontes on 05-30-2024 Urine WBC 50-100 SEEN /hpf 0-[address] [facility] White blood cell count 50-100 SEEN /hpf 0-[address] [facility] Absolute lymphocyte countOrd ered By: David Miramontes on 05-22-2024 Lymphocytes Auto (Unsp spec) [#/Vol] 1.26 10*3/uL 0.83-4.[address] [facility] Absolute neutrophil countOrd ered By: David Miramontes on 05-22-2024 Neutrophils (Bld) [#/Vol] 6.5 10*3/uL 2.0-7.[address] [facility] Anion gap in Serum or Plasma Ordered By: Frandyfeliciaingris Pinkamnabrian on 05-22-2024 Anion gap [Moles/Vol] 13 mmol/L 5-15 [facility] Automated lymphocyte count a s percentage of total leukocytesOrdered By: Mayrawaynefeliciaingris Pinkamnabrian on 05-22-2024 Lymphocytes/100 WBC Auto (Unsp spec) 14.0 % Low 19-[address] [facility] BUN/creatinine ratioOrdered By: Mayrawaynecarleen Guerrabrian on 05-22-2024 Urea nitrogen/Creatinine [Mass ratio] 7.8 mg/mg Low 10-[address] [facility] Basophil percentageOrdered B y: Mayrawaynecarleen Miramontes on 05-22-2024 Basophils/100 WBC (Bld) 0.4 % 0-1 [facility] Bilirubin, totalOrdered By: Mayrawaynecarleen Miramontes on 05-22-2024 Bilirubin [Mass/Vol] 0.44 mg/dL 0.00-1.[address] [facility] Carbon dioxide, total [Moles /volume] in Central venous bloodOrdered By: Mayrawaynecarleen Joesphamnabrian on 05-22-2024 CO2 [Moles/Vol] 24.8 mmol/L 21.0-32.[address] [facility] Chloride assayOrdered By: Mayra danay Joesphamnabrian on 05-22-2024 Chloride [Moles/Vol] 104 mmol/L 98-[address] [facility] Eosinophil percentageOrdered By: David Miramontes on 05-22-2024 Eosinophils/100 WBC (Bld) 1.0 % 0-[address] [facility] Erythrocyte distribution wid th (RBC) [Ratio]Ordered By: Mayrawaynefeliciaingris Pinkamnabrian on 05-22-2024 Erythrocyte distribution width (RBC) [Entitic vol] 54.3 fL High 35.1-43.[address] [facility] Erythrocyte distribution wid th ratioOrdered By: David Miramontes on 05-22-2024 Erythrocyte distribution width (RBC) [Ratio] 15.1 % High 11.6-14.[address] [facility] Erythrocyte distribution wid th standard deviationOrdered By: David Miramontes on 05-22-2024 Erythrocyte distribution width (RBC) [Ratio] 54.3 fl High 35.1-43.[address] [facility] GFR/1.73 sq M.predicted eleazar g non-blacks MDRD (S/P/Bld) [Vol rate/Area]Ordered By: David Miramontes on 05-22-2024 Estimated GFR (MDRD) Non-Af Amer 33 Low >[address] [facility] Comment on above: mL/min/1.73m2 CKD-EP I Creatinine Equation (2020) Glomerular filtration rate ( GFR) estimation/1.73 sq m using serum, plasma, or whole bOrdered By: David Miramontes on 05-22-2024 GFR/1.73 sq M.predicted among non-blacks MDRD (S/P/Bld) [Vol rate/Area] 33 mL/min/{1.73_m2} Low >[address] [facility] Comment on above: mL/min/1.73m2 CKD-EP I Creatinine Equation (2020) Hematocrit Auto (Bld) [Volum e fraction]Ordered By: David Miramontes on 05-22-2024 Hematocrit (Bld) [Volume fraction] 40.5 % 40-[address] [facility] Hemoglobin measurementOrdere d By: David Miramontes on 05-22-2024 Hemoglobin (Bld) [Mass/Vol] 12.9 g/dL Low 13.0-16.[address] [facility] Immature granulocytes/100 WB C Auto (Bld)Ordered By: David Miramontes on 05-22-2024 Immature granulocytes/100 WBC (Bld) 0.300 % 0.0-0.[address] [facility] Comment on above: IG% - Immature Granu locytes (promyelocytes, myelocytes and metamyelocytes) > 1% indicates that a LEFT SHIFT is Present. Laboratory - Chemistry and C hemistry - challengeOrdered By: David Miramontes on 05-22-2024 AST [Catalytic activity/Vol] 33 U/L <[address] [facility] Lymphocytes Auto (Unsp spec) [#/Vol]Ordered By: David Miramontes on 05-22-2024 Lymphocytes (Bld) [#/Vol] 1.26 10*3/uL 0.83-4.[address] [facility] Lymphocytes/100 WBC Auto (Un sp spec)Ordered By: David Miramontes on 05-22-2024 Lymphocytes/100 WBC (Bld) 14.0 % Low 19-[address] [facility] MCV (mean corpuscular volume ) determinationOrdered By: David Miramontes on 05-22-2024 MCV (RBC) [Entitic vol] 99.3 fL High 80-94 [facility] Mean corpuscular hemoglobin (MCH) determinationOrdered By: David Miramontes on 05-22-2024 MCH (RBC) [Entitic mass] 31.6 pg 27.0-32.[address] [facility] Mean corpuscular hemoglobin concentration (MCHC) determinationOrdered By: David Miramontes on 05-22-2024 MCHC (RBC) [Mass/Vol] 31.9 g/dL Low 32-36 [facility] Mean platelet volume determi nationOrdered By: David Miramontes on 05-22-2024 Platelet mean volume (Bld) [Entitic vol] 12.1 fL High 6.2-12.[address] [facility] Monocyte percentageOrdered B y: David Miramontes on 05-22-2024 Monocytes/100 WBC (Bld) 11.8 % High 0-10 [facility] Neutrophil percentageOrdered By: David Miramontes on 05-22-2024 Neutrophils/100 WBC (Bld) 72.5 % High 47-[address] [facility] Nucleated red blood cell per centageOrdered By: David Miramontes on 05-22-2024 Nucleated RBC/100 WBC (Bld) [Ratio] 0 % 0-[address] [facility] Platelet countOrdered By: Mayra Miramontes on 05-22-2024 Platelets (Bld) [#/Vol] 179 10*3/uL 150-[address] [facility] Potassium (Unsp spec) [Mass/ Vol]Ordered By: David Miramontes on 05-22-2024 Potassium [Moles/Vol] 3.3 mmol/L 3.3-5.1 [facility] Potassium measurement (mass/ volume)Ordered By: David Miramontes on 05-22-2024 Potassium (Unsp spec) [Mass/Vol] 3.3 mmol/L 3.3-5.[address] [facility] RBC Auto (Bld) [#/Vol]Ordere d By: David Miramontes on 05-22-2024 RBC (Bld) [#/Vol] 4.08 10*6/uL Low 4.6-6.2 [facility] Serum creatinine measurement (mass/volume)Ordered By: David Miramontes on 05-22-2024 Creatinine [Mass/Vol] 1.94 mg/dL High 0.70-1.20 [facility] Serum globulin measurementOr dered By: David Miramontes on 05-22-2024 Globulin (S) [Mass/Vol] 3.2 g/dL 2.2-4.2 [facility] Serum glucose measurement (m ass/volume)Ordered By: David Miramontes on 05-22-2024 Glucose [Mass/Vol] 112 mg/dL High 70-99 [facility] Serum or plasma alanine grant otransferase (ALT) measurementOrdered By: David Miramontes on 05-22-2024 ALT [Catalytic activity/Vol] 8 U/L <[address] [facility] Serum or plasma albumin siobhan urement (mass/volume)Ordered By: David Miramontes on 05-22-2024 Albumin [Mass/Vol] 3.5 g/dL 3.4-4.8 [facility] Serum or plasma albumin/glob ulin mass ratioOrdered By: David Miramontes on 05-22-2024 Albumin/Globulin [Mass ratio] 1.1 {ratio} 0.9-2.[address] [facility] Serum or plasma alkaline deven sphatase measurementOrdered By: David Miramontes on 05-22-2024 ALP [Catalytic activity/Vol] 71 U/L 40-[address] [facility] Serum or plasma calcium siobhan urement (mass/volume)Ordered By: David Miramontes on 05-22-2024 Calcium [Mass/Vol] 8.8 mg/dL 7.6-11.0 [facility] Serum or plasma urea nitroge n measurement (mass/volume)Ordered By: David Miramontes on 05-22-2024 Urea nitrogen [Mass/Vol] 15 mg/dL 4-[address] [facility] Sodium levelOrdered By: Frandy chavezyonatan Kulwinder on 05-22-2024 Sodium [Moles/Vol] 141 mmol/L 133-145 [facility] Total proteinOrdered By: Lg Miramontes on 05-22-2024 Protein [Mass/Vol] 6.7 g/dL 5.9-8.4 [facility] White blood cell (WBC) count Ordered By: David Miramontes on 05-22-2024 WBC (Bld) [#/Vol] 9.0 10*3/uL 4.4-11.0 [facility] Bilirubin Test strip Ql (U)O rdered By: David Miramontes on 04-17-2024 Bilirubin Ql (U) 1 mg/dL High Negative [facility] Comment on above: COLOR OF URINE MAY A FFECT DIPSTICK RESULTS. Glucose Ql (U)Ordered By: Mayra Miramontes on 04-17-2024 Urine Glucose (UA) Normal mg/dl Normal [facility] Ketones Test strip Ql (U)Ord ered By: David Miramontes on 04-17-2024 Ketones Ql (U) 5 mg/dl High Negative [facility] Nitrite Test strip Ql (U)Ord ered By: David Miramontes on 04-17-2024 Nitrite Ql (U) Negative Negative [facility] Protein Test strip Ql (U)Ord ered By: David Miramontes on 04-17-2024 Protein Ql (U) 100 mg/dl High Negative [facility] Urine blood detectionOrdered By: David Miramontes on 04-17-2024 Urine Occult Blood 250 /ul High Negative [facility] Urine clarityOrdered By: Lg Miramontes on 04-17-2024 Clarity (U) Turbid Clear [facility] Urine color determinationOrd ered By: David Miramontes on 04-17-2024 Color (U) Kristina Yellow [facility] Urine cultureOrdered By: Lg Miramontes on 04-17-2024 Bacteria identified Cx Nom (U) Proteus mirabilis Abnormal [facility] Urine glucose detectionOrder ed By: David Miramontes on 04-17-2024 Glucose Ql (U) Normal mg/dl Normal [facility] Urine leukocyte esterase det ection by dipstickOrdered By: David Miramontes on 04-17-2024 Leukocyte esterase Test strip Ql (U) 100 /ul High Negative [facility] Urine pHOrdered By: Leo Miramontes on 04-17-2024 pH (U) 5.0 [pH] 5.0 - 8.[address] [facility] Urine specific gravity measu rementOrdered By: David Miramontes on 04-17-2024 Specific gravity (U) [Rel density] 1.025 1.002-1.[address] [facility] Urine urobilinogen measureme ntOrdered By: David Miramontes on 04-17-2024 Urobilinogen Ql (U) Normal mg/dl Normal [facility] Urobilinogen Ql (U)Ordered B y: David Miramontes on 04-17-2024 Urine Urobilinogen Normal mg/dl Normal [facility] Absolute lymphocyte countOrd ered By: David Miramontes on 04-13-2024 Lymphocytes Auto (Unsp spec) [#/Vol] 0.98 10*3/uL 0.83-4.[address] [facility] Absolute neutrophil countOrd ered By: David Miramontes on 04-13-2024 Neutrophils (Bld) [#/Vol] 7.0 10*3/uL 2.0-7.[address] [facility] Automated lymphocyte count a s percentage of total leukocytesOrdered By: David Miramontes on 04-13-2024 Lymphocytes/100 WBC Auto (Unsp spec) 11.0 % Low 19-[address] [facility] Basophil percentageOrdered B y: David Miramontes on 04-13-2024 Basophils/100 WBC (Bld) 0.2 % 0-1 [facility] Eosinophil percentageOrdered By: [facility] on 04-13-2024 Eosinophils/100 WBC (Bld) 1.2 % 0-[address] [facility] Erythrocyte distribution wid th (RBC) [Ratio]Ordered By: David Guerrabrian on 04-13-2024 Erythrocyte distribution width (RBC) [Entitic vol] 52.6 fL High 35.1-43.[address] [facility] Erythrocyte distribution wid th ratioOrdered By: [facility] Joesphbrian on 04-13-2024 Erythrocyte distribution width (RBC) [Ratio] 14.6 % 11.6-14.[address] [facility] Erythrocyte distribution wid th standard deviationOrdered By: [facility] Joesphbrian on 04-13-2024 Erythrocyte distribution width (RBC) [Ratio] 52.6 fl High 35.1-43.[address] [facility] Hematocrit Auto (Bld) [Volum e fraction]Ordered By: [facility] Charliebrian on 04-13-2024 Hematocrit (Bld) [Volume fraction] 47.5 % 40-[address] [facility] Hemoglobin measurementOrdere d By: David Guerrabrian on 04-13-2024 Hemoglobin (Bld) [Mass/Vol] 15.1 g/dL 13.0-16.[address] [facility] Immature granulocytes/100 WB C Auto (Bld)Ordered By: danay Pinkamnabrian on 04-13-2024 Immature granulocytes/100 WBC (Bld) 0.300 % 0.0-0.[address] [facility] Comment on above: IG% - Immature Granu locytes (promyelocytes, myelocytes and metamyelocytes) > 1% indicates that a LEFT SHIFT is Present. Lymphocytes Auto (Unsp spec) [#/Vol]Ordered By: Mayrawaynefeliciaingris Miramontes on 04-13-2024 Lymphocytes (Bld) [#/Vol] 0.98 10*3/uL 0.83-4.[address] [facility] Lymphocytes/100 WBC Auto (Un sp spec)Ordered By: waynefeliciaingris Miramontes on 04-13-2024 Lymphocytes/100 WBC (Bld) 11.0 % Low 19-[address] [facility] MCV (mean corpuscular volume ) determinationOrdered By: Mayrawaynefeliciaingris Pinkamnabrian on 04-13-2024 MCV (RBC) [Entitic vol] 98.3 fL High 80-94 [facility] Mean corpuscular hemoglobin (MCH) determinationOrdered By: David Pinkamnabrian on 04-13-2024 MCH (RBC) [Entitic mass] 31.3 pg 27.0-32.[address] [facility] Mean corpuscular hemoglobin concentration (MCHC) determinationOrdered By: David Pinkmanabrian on 04-13-2024 MCHC (RBC) [Mass/Vol] 31.8 g/dL Low 32-36 [facility] Mean platelet volume determi nationOrdered By: David Pinkamnabrian on 04-13-2024 Platelet mean volume (Bld) [Entitic vol] 12.2 fL High 6.2-12.[address] [facility] Monocyte percentageOrdered B y: Frandyfeliciaingris Pinkamnabrian on 04-13-2024 Monocytes/100 WBC (Bld) 9.3 % 0-10 [facility] Neutrophil percentageOrdered By: Frandyfeliciaingris Pinkamnabrian on 04-13-2024 Neutrophils/100 WBC (Bld) 78.0 % High 47-[address] [facility] Nucleated red blood cell per centageOrdered By: Frandyfeliciaingris Pinkamnabrian on 04-13-2024 Nucleated RBC/100 WBC (Bld) [Ratio] 0 % 0-[address] [facility] Platelet countOrdered By: Mayra danay Joesphamnabrian on 04-13-2024 Platelets (Bld) [#/Vol] 160 10*3/uL 150-[address] [facility] RBC Auto (Bld) [#/Vol]Ordere d By: Frandyfeliciaingris Pinkamnabrian on 04-13-2024 RBC (Bld) [#/Vol] 4.83 10*6/uL 4.6-6.2 [facility] Serum or plasma uric acid me asurement (mass/volume)Ordered By: David Miramontes on 04-13-2024 Urate [Mass/Vol] 7.3 mg/dL High 3.5-7.[address] [facility] Comment on above: The drugs N-Acetylcy steine and Metamizole may falsely depress this assay. White blood cell (WBC) count Ordered By: David Miramontes on 04-13-2024 WBC (Bld) [#/Vol] 8.9 10*3/uL 4.4-11.0 [facility] Bilirubin Test strip Ql (U)O rdered By: David Miramontes on 04-07-2024 Bilirubin Ql (U) Negative Negative [facility] Blood urea nitrogen (BUN)/cr eatinine ratioOrdered By: David Miramontes on 04-07-2024 Urea nitrogen/Creatinine [Mass ratio] 15.7 mg/mg 10-[address] [facility] Carbon dioxide measurementOr dered By: David Miramontes on 04-07-2024 CO2 [Moles/Vol] 27.0 mmol/L 21.0-32.[address] [facility] Chloride measurementOrdered By: David Miramontes on 04-07-2024 Chloride [Moles/Vol] 107 mmol/L 98-[address] [facility] Estimated glomerular filtrat ion rate (GFR) AmericanOrdered By: David Miramontes on 04-07-2024 Estimated GFR (MDRD) Amer 69 mL/min >[address] [facility] Comment on above: GFR Calc Glomerular filtration rate ( GFR) estimationOrdered By: David Miramontes on 04-07-2024 Estimated GFR (MDRD) Non-Af Amer 57 mL/min Low >[address] [facility] Comment on above: Non- GFR Calc GFR/1.73 sq M.predicted among non-blacks MDRD (S/P/Bld) [Vol rate/Area] 57 mL/min/{1.73_m2} Low >[address] [facility] Comment on above: Non- GFR Calc Glucose Ql (U)Ordered By: Mayra Miramontes on 04-07-2024 Urine Glucose (UA) Normal mg/dl Normal [facility] Glucose measurementOrdered B y: David Miramontes on 04-07-2024 Glucose [Mass/Vol] 80 mg/dL 74-106 [facility] Ketones Test strip Ql (U)Ord ered By: David Miramontes on 04-07-2024 Ketones Ql (U) Negative Negative [facility] Nitrite Test strip Ql (U)Ord ered By: David Miramontes on 04-07-2024 Nitrite Ql (U) Negative Negative [facility] Potassium measurementOrdered By: David Miramontes on 04-07-2024 Potassium [Moles/Vol] 3.8 mmol/L 3.5-5.1 [facility] Comment on above: Slight Hemolysis, Re sult may be falsely increased. Protein Test strip Ql (U)Ord ered By: David Miramontes on 04-07-2024 Protein Ql (U) 30 mg/dl High Negative [facility] Serum anion gap measurementO rdered By: David Miramontes on 04-07-2024 Anion gap [Moles/Vol] 9 mmol/L 5-15 [facility] Serum or plasma calcium siobhan urement (mass/volume)Ordered By: David Miramontes on 04-07-2024 Calcium [Mass/Vol] 8.9 mg/dL 8.5-10.1 [facility] Serum or plasma creatinine m easurement (mass/volume)Ordered By: David Miramontes on 04-07-2024 Creatinine [Mass/Vol] 1.27 mg/dL 0.70-1.30 [facility] Comment on above: The validity of the calculated GFR & GFRAA in patients over 70 years has not been determined. Clinical correlation is essential. Serum or plasma urea nitroge n measurement (mass/volume)Ordered By: David Miramontes on 04-07-2024 Urea nitrogen [Mass/Vol] 20 mg/dL High 7-[address] [facility] Serum or plasma uric acid me asurement (mass/volume)Ordered By: David Miramontes on 04-07-2024 Urate [Mass/Vol] 7.7 mg/dL High 3.5-7.[address] [facility] Comment on above: The drugs N-Acetylcy steine and Metamizole may falsely depress this assay. Sodium levelOrdered By: Frandy Miramontes on 04-07-2024 Sodium [Moles/Vol] 143 mmol/L 136-145 [facility] Urine blood detectionOrdered By: David Miramontes on 04-07-2024 Urine Occult Blood 250 /ul High Negative [facility] Urine clarityOrdered By: Lg Miramontes on 04-07-2024 Clarity (U) Clear Clear [facility] Urine color determinationOrd ered By: David Miramontes on 04-07-2024 Color (U) Straw Yellow [facility] Urine cultureOrdered By: Lg Miramontes on 04-07-2024 Bacteria identified Cx Nom (U) Negative Abnormal [facility] Urine glucose detectionOrder ed By: David Miramontes on 04-07-2024 Glucose Ql (U) Normal mg/dl Normal [facility] Urine leukocyte esterase det ection by dipstickOrdered By: David Miramontes on 04-07-2024 Leukocyte esterase Test strip Ql (U) 25 /ul High Negative [facility] Urine pHOrdered By: Leo Miramontes on 04-07-2024 pH (U) 6.5 [pH] 5.0 - 8.[address] [facility] Urine specific gravity measu rementOrdered By: David Miramontes on 04-07-2024 Specific gravity (U) [Rel density] 1.005 1.002-1.[address] [facility] Urine urobilinogen measureme ntOrdered By: David Miramontes on 04-07-2024 Urobilinogen Ql (U) Normal mg/dl Normal [facility] Urobilinogen Ql (U)Ordered B y: David Miramontes on 04-07-2024 Urine Urobilinogen Normal mg/dl Normal [facility] Absolute lymphocyte countOrd ered By: David Miramontes on 04-04-2024 Lymphocytes Auto (Unsp spec) [#/Vol] 0.82 10*3/uL Low 0.83-4.[address] [facility] Absolute neutrophil countOrd ered By: David Miramontes on 04-04-2024 Neutrophils (Bld) [#/Vol] 11.6 10*3/uL High 2.0-7.[address] [facility] Automated lymphocyte count a s percentage of total leukocytesOrdered By: David Miramontes on 04-04-2024 Lymphocytes/100 WBC Auto (Unsp spec) 5.9 % Low 19-[address] [facility] Basophil percentageOrdered B y: David Miramontes on 04-04-2024 Basophils/100 WBC (Bld) 0.2 % 0-1 [facility] Blood urea nitrogen (BUN)/cr eatinine ratioOrdered By: danay Miramontes on 04-04-2024 Urea nitrogen/Creatinine [Mass ratio] 9.6 mg/mg Low 10-[address] [facility] Carbon dioxide measurementOr dered By: danay Miramontes on 04-04-2024 CO2 [Moles/Vol] 26.0 mmol/L 21.0-32.[address] [facility] Chloride measurementOrdered By: David Miramontes on 04-04-2024 Chloride [Moles/Vol] 105 mmol/L 98-[address] [facility] Eosinophil percentageOrdered By: danay Miramontes on 04-04-2024 Eosinophils/100 WBC (Bld) 0.0 % 0-[address] [facility] Erythrocyte distribution wid th (RBC) [Ratio]Ordered By: David Miramontes on 04-04-2024 Erythrocyte distribution width (RBC) [Entitic vol] 55.2 fL High 35.1-43.[address] [facility] Erythrocyte distribution wid th ratioOrdered By: David Miramontes on 04-04-2024 Erythrocyte distribution width (RBC) [Ratio] 15.2 % High 11.6-14.[address] [facility] Erythrocyte distribution wid th standard deviationOrdered By: [facility] on 04-04-2024 Erythrocyte distribution width (RBC) [Ratio] 55.2 fl High 35.1-43.[address] [facility] Estimated glomerular filtrat ion rate (GFR) AmericanOrdered By: David Miramontes on 04-04-2024 Estimated GFR (MDRD) Amer 47 mL/min Low >[address] [facility] Comment on above: GFR Calc Glomerular filtration rate ( GFR) estimationOrdered By: David Miramontes on 04-04-2024 Estimated GFR (MDRD) Non-Af Amer 39 mL/min Low >[address] [facility] Comment on above: Non- GFR Calc GFR/1.73 sq M.predicted among non-blacks MDRD (S/P/Bld) [Vol rate/Area] 39 mL/min/{1.73_m2} Low >[address] [facility] Comment on above: Non- GFR Calc Glucose measurementOrdered B y: David Miramontes on 04-04-2024 Glucose [Mass/Vol] 119 mg/dL High 74-106 [facility] Comment on above: Fasting Glucose resu lt from 100 to 125 mg/dL suggests IMPAIRED HOMEOSTASIS per A.D.A. criteria. Hematocrit Auto (Bld) [Volum e fraction]Ordered By: David Miramontes on 04-04-2024 Hematocrit (Bld) [Volume fraction] 49.2 % 40-[address] [facility] Hemoglobin measurementOrdere d By: David Miramontes on 04-04-2024 Hemoglobin (Bld) [Mass/Vol] 15.9 g/dL 13.0-16.[address] [facility] Immature granulocytes/100 WB C Auto (Bld)Ordered By: David Miramontes on 04-04-2024 Immature granulocytes/100 WBC (Bld) 0.500 % 0.0-0.[address] [facility] Comment on above: IG% - Immature Granu locytes (promyelocytes, myelocytes and metamyelocytes) > 1% indicates that a LEFT SHIFT is Present. Lymphocytes Auto (Unsp spec) [#/Vol]Ordered By: David Miramontes on 04-04-2024 Lymphocytes (Bld) [#/Vol] 0.82 10*3/uL Low 0.83-4.[address] [facility] Lymphocytes/100 WBC Auto (Un sp spec)Ordered By: David Miramontes on 04-04-2024 Lymphocytes/100 WBC (Bld) 5.9 % Low 19-[address] [facility] MCV (mean corpuscular volume ) determinationOrdered By: David Miramontes on 04-04-2024 MCV (RBC) [Entitic vol] 98.4 fL High 80-94 [facility] Mean corpuscular hemoglobin (MCH) determinationOrdered By: David Miramontes on 04-04-2024 MCH (RBC) [Entitic mass] 31.8 pg 27.0-32.[address] [facility] Mean corpuscular hemoglobin concentration (MCHC) determinationOrdered By: David Miramontes on 04-04-2024 MCHC (RBC) [Mass/Vol] 32.3 g/dL 32-36 [facility] Mean platelet volume determi nationOrdered By: David Miramontes on 04-04-2024 Platelet mean volume (Bld) [Entitic vol] 12.5 fL High 6.2-12.[address] [facility] Monocyte percentageOrdered B y: David Miramontes on 04-04-2024 Monocytes/100 WBC (Bld) 9.9 % 0-10 [facility] Neutrophil percentageOrdered By: David Miramontes on 04-04-2024 Neutrophils/100 WBC (Bld) 83.5 % High 47-[address] [facility] Nucleated red blood cell per centageOrdered By: David Miramontes on 04-04-2024 Nucleated RBC/100 WBC (Bld) [Ratio] 0 % 0-[address] [facility] Platelet countOrdered By: Mayra Miramontes on 04-04-2024 Platelets (Bld) [#/Vol] 209 10*3/uL 150-[address] [facility] Potassium measurementOrdered By: David Miramontes on 04-04-2024 Potassium [Moles/Vol] 4.2 mmol/L 3.5-5.1 [facility] Comment on above: Slight Hemolysis, Re sult may be falsely increased. RBC Auto (Bld) [#/Vol]Ordere d By: David Miramontes on 04-04-2024 RBC (Bld) [#/Vol] 5.00 10*6/uL 4.6-6.2 [facility] Serum anion gap measurementO rdered By: David Miramontes on 04-04-2024 Anion gap [Moles/Vol] 8 mmol/L 5-15 [facility] Serum or plasma calcium siobhan urement (mass/volume)Ordered By: David Miramontes on 04-04-2024 Calcium [Mass/Vol] 9.6 mg/dL 8.5-10.1 [facility] Serum or plasma creatinine m easurement (mass/volume)Ordered By: David Miramontes on 04-04-2024 Creatinine [Mass/Vol] 1.77 mg/dL High 0.70-1.30 [facility] Comment on above: The validity of the calculated GFR & GFRAA in patients over 70 years has not been determined. Clinical correlation is essential. Serum or plasma urea nitroge n measurement (mass/volume)Ordered By: David Miramontes on 04-04-2024 Urea nitrogen [Mass/Vol] 17 mg/dL 7-[address] [facility] Sodium levelOrdered By: Frandy chavezsonibrian Miramontes on 04-04-2024 Sodium [Moles/Vol] 139 mmol/L 136-145 [facility] White blood cell (WBC) count Ordered By: David Miramontes on 04-04-2024 WBC (Bld) [#/Vol] 13.9 10*3/uL High 4.4-11.0 [facility] Absolute lymphocyte countOrd ered By: David Miramontes on 04-06-2023 Lymphocytes Auto (Unsp spec) [#/Vol] 1.24 10*3/uL 0.83-4.[address] [facility] Automated lymphocyte count a s percentage of total leukocytesOrdered By: David Miramontes on 04-06-2023 Lymphocytes/100 WBC Auto (Unsp spec) 18.7 % 19-[address] [facility] Basophil percentageOrdered B y: David Miramontes on 04-06-2023 Basophils/100 WBC (Bld) 0.5 % 0-1 [facility] Chloride [Moles/Vol] 109 mmol/L 98-[address] [facility] Eosinophils/100 WBC (Bld) 1.7 % 0-[address] [facility] Glucose [Mass/Vol] 90 mg/dL 74-106 [facility] Hemoglobin (Bld) [Mass/Vol] 15.4 g/dL 13.0-16.[address] [facility] Monocytes/100 WBC (Bld) 9.4 % 0-10 [facility] Neutrophils (Bld) [#/Vol] 4.6 10*3/uL 2.0-7.[address] [facility] Neutrophils/100 WBC (Bld) 69.2 % 47-[address] [facility] Potassium [Moles/Vol] 3.7 mmol/L 3.5-5.1 [facility] Sodium [Moles/Vol] 141 mmol/L 136-145 [facility] WBC (Bld) [#/Vol] 6.6 10*3/uL 4.4-11.0 [facility] Determination of erythrocyte mean corpuscular volume (MCV)Ordered By: David Miramontes on 04-06-2023 MCV (RBC) [Entitic vol] 98.2 fL 80-94 [facility] Erythrocyte distribution wid th ratioOrdered By: Frandynapoleoningris Miramontes on 04-06-2023 Erythrocyte distribution width (RBC) [Ratio] 14.4 % 11.6-14.[address] [facility] Erythrocyte distribution wid th standard deviationOrdered By: Mayranort[facility] gainesvilleingris Miramontes on 04-06-2023 Erythrocyte distribution width (RBC) [Entitic vol] 51.7 fL 35.1-43.[address] [facility] Hematocrit Auto (Bld) [Volum e fraction]Ordered By: David Miramontes on 04-06-2023 Hematocrit (Bld) [Volume fraction] 49.2 % 40-[address] [facility] Immature granulocytes/100 WB C Auto (Bld)Ordered By: David Miramontes on 04-06-2023 Immature granulocytes/100 WBC (Bld) 0.500 % 0.0-0.[address] [facility] Comment on above: IG% - Immature Granu locytes (promyelocytes, myelocytes and metamyelocytes) > 1% indicates that a LEFT SHIFT is Present. Laboratory - Chemistry and C hemistry - challengeOrdered By: David Miramontes on 04-06-2023 CO2 [Moles/Vol] 27.0 mmol/L 21.0-32.0 [facility] Urea nitrogen/Creatinine [Mass ratio] 15.0 mg/mg 10-[address] [facility] Laboratory - Hematology and Cell countsOrdered By: David Miramontes on 04-06-2023 MCH (RBC) [Entitic mass] 30.7 pg 27.0-32.[address] [facility] MCHC (RBC) [Mass/Vol] 31.3 g/dL 32-36 [facility] Nucleated RBC/100 WBC (Bld) [Ratio] 0 % 0-[address] [facility] Platelet mean volume (Bld) [Entitic vol] 11.5 fL 6.2-12.[address] [facility] Platelets (Bld) [#/Vol] 189 10*3/uL 150-[address] [facility] No Panel InformationOrdered By: David Miramontes on 04-06-2023 Estimated GFR (MDRD) Amer 85 mL/min >[address] [facility] Comment on above: GFR Calc Estimated GFR (MDRD) Non-Af Amer 70 mL/min >[address] [facility] Comment on above: Non- GFR Calc RBC Auto (Bld) [#/Vol]Ordere d By: David Miramontes on 04-06-2023 RBC (Bld) [#/Vol] 5.01 10*6/uL 4.6-6.2 [facility] Serum or plasma calcium siobhan urement (mass/volume)Ordered By: David Miramontes on 04-06-2023 Calcium [Mass/Vol] 9.1 mg/dL 8.5-10.1 [facility] Serum or plasma creatinine m easurement (mass/volume)Ordered By: David Miramontes on 04-06-2023 Creatinine [Mass/Vol] 1.07 mg/dL 0.70-1.30 [facility] Comment on above: The validity of the calculated GFR & GFRAA in patients over 70 years has not been determined. Clinical correlation is essential. Serum or plasma urea nitroge n measurement (mass/volume)Ordered By: David Miramontes on 04-06-2023 Urea nitrogen [Mass/Vol] 16 mg/dL 7-[address] [facility] Thin prep Papanicolaou smear with manual screeningOrdered By: David Miramontes on 04-06-2023 Thin prep Papanicolaou smear with manual screening 5 5-[address] [facility] Absolute lymphocyte countOrd ered By: David Miramontes on 12-30-2022 Lymphocytes Auto (Unsp spec) [#/Vol] 1.16 10*3/uL 0.83-4.[address] [facility] Basophil percentageOrdered B y: David Miramontes on 12-30-2022 Basophils/100 WBC (Bld) 0.4 % 0-1 [facility] Chloride [Moles/Vol] 109 mmol/L 98-[address] [facility] Eosinophils/100 WBC (Bld) 1.3 % 0-[address] [facility] Glucose [Mass/Vol] 84 mg/dL 74-106 [facility] Neutrophils (Bld) [#/Vol] 5.4 10*3/uL 2.0-7.[address] [facility] Neutrophils/100 WBC (Bld) 72.7 % 47-[address] [facility] Potassium [Moles/Vol] 3.6 mmol/L 3.5-5.1 [facility] Sodium [Moles/Vol] 142 mmol/L 136-145 [facility] WBC (Bld) [#/Vol] 7.4 10*3/uL 4.4-11.0 [facility] Blood erythrocytes count (nu mber/volume)Ordered By: David Miramontes on 12-30-2022 RBC (Bld) [#/Vol] 4.15 10*6/uL 4.6-6.2 [facility] Blood hemoglobin measurement (mass/volume)Ordered By: David Miramontes on 12-30-2022 Hemoglobin (Bld) [Mass/Vol] 13.0 g/dL 13.0-16.[address] [facility] Blood lymphocytes/100 leukoc ytesOrdered By: David Miramontes on 12-30-2022 Lymphocytes/100 WBC (Bld) 15.6 % 19-[address] [facility] Blood monocytes/100 leukocyt esOrdered By: David Miramontes on 12-30-2022 Monocytes/100 WBC (Bld) 9.6 % 0-10 [facility] Blood platelet mean volumeOr dered By: David Miramontes on 12-30-2022 Platelet mean volume (Bld) [Entitic vol] 11.6 fL 6.2-12.[address] [facility] Determination of erythrocyte mean corpuscular volume (MCV)Ordered By: David Miramontes on 12-30-2022 MCV (RBC) [Entitic vol] 99.5 fL 80-94 [facility] Hematocrit Auto (Bld) [Volum e fraction]Ordered By: David Miramontes on 12-30-2022 Hematocrit (Bld) [Volume fraction] 41.3 % 40-[address] [facility] Laboratory - Chemistry and C hemistry - challengeOrdered By: David Miramontes on 12-30-2022 CO2 [Moles/Vol] 27.0 mmol/L 21.0-32.[address] [facility] Urea nitrogen/Creatinine [Mass ratio] 11.6 mg/mg 10-[address] [facility] Laboratory - Hematology and Cell countsOrdered By: David Miramontes on 12-30-2022 Erythrocyte distribution width (RBC) [Entitic vol] 51.5 fL 35.1-43.[address] [facility] Erythrocyte distribution width (RBC) [Ratio] 14.2 % 11.6-14.[address] [facility] Immature granulocytes/100 WBC (Bld) 0.400 % 0.0-0.[address] [facility] Comment on above: IG% - Immature Granu locytes (promyelocytes, myelocytes and metamyelocytes) > 1% indicates that a LEFT SHIFT is Present. MCH (RBC) [Entitic mass] 31.3 pg 27.0-32.[address] [facility] Nucleated RBC/100 WBC (Bld) [Ratio] 0 % 0-[address] [facility] MCHC Auto (RBC) [Mass/Vol]Or dered By: David Miramontes on 12-30-2022 MCHC (RBC) [Mass/Vol] 31.5 g/dL 32-36 [facility] No Panel InformationOrdered By: David Miramontes on 12-30-2022 Estimated GFR (MDRD) Amer 108 mL/min >[address] [facility] Comment on above: GFR Calc Estimated GFR (MDRD) Non-Af Amer 90 mL/min >[address] [facility] Comment on above: Non- GFR Calc Platelets bldOrdered By: Lg rupinderingris Miramontes on 12-30-2022 Platelets (Bld) [#/Vol] 165 10*3/uL 150-[address] [facility] Serum or plasma calcium siobhan urement (mass/volume)Ordered By: David Miramontes on 12-30-2022 Calcium [Mass/Vol] 8.3 mg/dL 8.5-10.1 [facility] Serum or plasma creatinine m easurement (mass/volume)Ordered By: David Miramontes on 12-30-2022 Creatinine [Mass/Vol] 0.86 mg/dL 0.70-1.30 [facility] Comment on above: The validity of the calculated GFR & GFRAA in patients over 70 years has not been determined. Clinical correlation is essential. Serum or plasma urea nitroge n measurement (mass/volume)Ordered By: David Miramontes on 12-30-2022 Urea nitrogen [Mass/Vol] 10 mg/dL 7-[address] [facility] Thin prep Papanicolaou smear with manual screeningOrdered By: David Miramontes on 12-30-2022 Thin prep Papanicolaou smear with manual screening 6 5-[address] [facility] Absolute lymphocyte countOrd ered By: David Miramontes on 09-29-2022 Lymphocytes Auto (Unsp spec) [#/Vol] 1.19 10*3/uL 0.83-4.[address] [facility] Basophil percentageOrdered B y: David Miramontes on 09-29-2022 Basophils/100 WBC (Bld) 0.2 % 0-1 [facility] Chloride [Moles/Vol] 109 mmol/L 98-[address] [facility] Eosinophils/100 WBC (Bld) 0.1 % 0-[address] [facility] Glucose [Mass/Vol] 100 mg/dL 74-106 [facility] Comment on above: Fasting Glucose resu lt from 100 to 125 mg/dL suggests IMPAIRED HOMEOSTASIS per A.D.A. criteria. Neutrophils (Bld) [#/Vol] 8.4 10*3/uL 2.0-7.[address] [facility] Neutrophils/100 WBC (Bld) 80.3 % 47-[address] [facility] Potassium [Moles/Vol] 4.0 mmol/L 3.5-5.1 [facility] Sodium [Moles/Vol] 141 mmol/L 136-145 [facility] WBC (Bld) [#/Vol] 10.4 10*3/uL 4.4-11.0 [facility] Blood erythrocytes count (nu mber/volume)Ordered By: David Miramontes on 09-29-2022 RBC (Bld) [#/Vol] 4.62 10*6/uL 4.6-6.2 [facility] Blood hemoglobin measurement (mass/volume)Ordered By: David Miramontes on 09-29-2022 Hemoglobin (Bld) [Mass/Vol] 14.6 g/dL 13.0-16.[address] [facility] Blood lymphocytes/100 leukoc ytesOrdered By: David Miramontes on 09-29-2022 Lymphocytes/100 WBC (Bld) 11.5 % 19-[address] [facility] Blood monocytes/100 leukocyt esOrdered By: David Miramontes on 09-29-2022 Monocytes/100 WBC (Bld) 7.3 % 0-10 [facility] Blood platelet mean volumeOr dered By: David Miramontes on 09-29-2022 Platelet mean volume (Bld) [Entitic vol] 11.5 fL 6.2-12.[address] [facility] Determination of erythrocyte mean corpuscular volume (MCV)Ordered By: David Miramontes on 09-29-2022 MCV (RBC) [Entitic vol] 99.4 fL 80-94 [facility] Hematocrit Auto (Bld) [Volum e fraction]Ordered By: David Miramontes on 09-29-2022 Hematocrit (Bld) [Volume fraction] 45.9 % 40-[address] [facility] Laboratory - Chemistry and C hemistry - challengeOrdered By: David Miramontes on 09-29-2022 CO2 [Moles/Vol] 28.0 mmol/L 21.0-32.[address] [facility] Urea nitrogen/Creatinine [Mass ratio] 13.8 mg/mg 10-[address] [facility] Laboratory - Hematology and Cell countsOrdered By: David Miramontes on 09-29-2022 Erythrocyte distribution width (RBC) [Entitic vol] 51.7 fL 35.1-43.[address] [facility] Erythrocyte distribution width (RBC) [Ratio] 14.2 % 11.6-14.[address] [facility] Immature granulocytes/100 WBC (Bld) 0.600 % 0.0-0.[address] [facility] Comment on above: IG% - Immature Granu locytes (promyelocytes, myelocytes and metamyelocytes) > 1% indicates that a LEFT SHIFT is Present. MCH (RBC) [Entitic mass] 31.6 pg 27.0-32.[address] [facility] Nucleated RBC/100 WBC (Bld) [Ratio] 0 % 0-[address] [facility] MCHC Auto (RBC) [Mass/Vol]Or dered By: David Miramontes on 09-29-2022 MCHC (RBC) [Mass/Vol] 31.8 g/dL 32-36 [facility] No Panel InformationOrdered By: David Miramontes on 09-29-2022 Estimated GFR (MDRD) Amer 98 mL/min >[address] [facility] Comment on above: GFR Calc Estimated GFR (MDRD) Non-Af Amer 81 mL/min >[address] [facility] Comment on above: Non- GFR Calc Platelets bldOrdered By: Lg Miramontes on 09-29-2022 Platelets (Bld) [#/Vol] 185 10*3/uL 150-[address] [facility] Serum or plasma calcium siobhan urement (mass/volume)Ordered By: David Miramontes on 09-29-2022 Calcium [Mass/Vol] 8.9 mg/dL 8.5-10.1 [facility] Serum or plasma creatinine m easurement (mass/volume)Ordered By: David Miramontes on 09-29-2022 Creatinine [Mass/Vol] 0.94 mg/dL 0.70-1.30 [facility] Comment on above: The validity of the calculated GFR & GFRAA in patients over 70 years has not been determined. Clinical correlation is essential. Serum or plasma urea nitroge n measurement (mass/volume)Ordered By: David Miramontes on 09-29-2022 Urea nitrogen [Mass/Vol] 13 mg/dL 7-[address] [facility] Thin prep Papanicolaou smear with manual screeningOrdered By: David Miramontes on 09-29-2022 Thin prep Papanicolaou smear with manual screening 4 5-[address] [facility] Absolute lymphocyte countOrd ered By: David Miramontes on 06-29-2022 Lymphocytes Auto (Unsp spec) [#/Vol] 1.43 10*3/uL 0.83-4.[address] [facility] Basophil percentageOrdered B y: David Miramontes on 06-29-2022 Basophils/100 WBC (Bld) 0.6 % 0-1 [facility] Chloride [Moles/Vol] 107 mmol/L 98-[address] [facility] Eosinophils/100 WBC (Bld) 1.5 % 0-[address] [facility] Glucose [Mass/Vol] 85 mg/dL 74-106 [facility] Neutrophils (Bld) [#/Vol] 4.4 10*3/uL 2.0-7.[address] [facility] Neutrophils/100 WBC (Bld) 65.4 % 47-[address] [facility] Potassium [Moles/Vol] 3.6 mmol/L 3.5-5.1 [facility] [facility] S[facility] [Moles/Vol] 140 mmol/L 136-145 [facility] WBC (Bld) [#/Vol] 6.7 10*3/uL 4.4-11.0 [facility] Blood erythrocytes count (nu mber/volume)Ordered By: David Miramontes on 06-29-2022 RBC (Bld) [#/Vol] 4.55 10*6/uL 4.6-6.2 [facility] Blood hemoglobin measurement (mass/volume)Ordered By: David Miramontes on 06-29-2022 Hemoglobin (Bld) [Mass/Vol] 14.5 g/dL 13.0-16.[address] [facility] Blood lymphocytes/100 leukoc ytesOrdered By: David Miramontes on 06-29-2022 Lymphocytes/100 WBC (Bld) 21.5 % 19-[address] [facility] Blood monocytes/100 leukocyt esOrdered By: David Miramontes on 06-29-2022 Monocytes/100 WBC (Bld) 10.7 % 0-10 [facility] Blood platelet mean volumeOr dered By: David Miramontes on 06-29-2022 Platelet mean volume (Bld) [Entitic vol] 11.2 fL 6.2-12.[address] [facility] Determination of erythrocyte mean corpuscular volume (MCV)Ordered By: danay Miramontes on 06-29-2022 MCV (RBC) [Entitic vol] 98.9 fL 80-94 [facility] Hematocrit Auto (Bld) [Volum e fraction]Ordered By: David Miramontes on 06-29-2022 Hematocrit (Bld) [Volume fraction] 45.0 % 40-[address] [facility] Laboratory - Chemistry and C hemistry - challengeOrdered By: David Miramontes on 06-29-2022 CO2 [Moles/Vol] 30.0 mmol/L 21.0-32.[address] [facility] Urea nitrogen/Creatinine [Mass ratio] 13.6 mg/mg 10-[address] [facility] Laboratory - Hematology and Cell countsOrdered By: David Miramontes on 06-29-2022 Erythrocyte distribution width (RBC) [Entitic vol] 51.6 fL 35.1-43.[address] [facility] Erythrocyte distribution width (RBC) [Ratio] 14.3 % 11.6-14.[address] [facility] Immature granulocytes/100 WBC (Bld) 0.300 % 0.0-0.[address] [facility] Comment on above: IG% - Immature Granu locytes (promyelocytes, myelocytes and metamyelocytes) > 1% indicates that a LEFT SHIFT is Present. MCH (RBC) [Entitic mass] 31.9 pg 27.0-32.[address] [facility] Nucleated RBC/100 WBC (Bld) [Ratio] 0 % 0-[address] [facility] MCHC Auto (RBC) [Mass/Vol]Or dered By: David Miramontes on 06-29-2022 MCHC (RBC) [Mass/Vol] 32.2 g/dL 32-36 [facility] No Panel InformationOrdered By: David Miramontes on 06-29-2022 Estimated GFR (MDRD) Amer 89 mL/min >[address] [facility] Comment on above: GFR Calc Estimated GFR (MDRD) Non-Af Amer 73 mL/min >[address] [facility] Comment on above: Non- GFR Calc Platelets bldOrdered By: Lg Miramontes on 06-29-2022 Platelets (Bld) [#/Vol] 161 10*3/uL 150-[address] [facility] Serum or plasma calcium siobhan urement (mass/volume)Ordered By: David Miramontes on 06-29-2022 Calcium [Mass/Vol] 8.7 mg/dL 8.5-10.1 [facility] Serum or plasma creatinine m easurement (mass/volume)Ordered By: David Miramontes on 06-29-2022 Creatinine [Mass/Vol] 1.03 mg/dL 0.70-1.30 [facility] Comment on above: The validity of the calculated GFR & GFRAA in patients over 70 years has not been determined. Clinical correlation is essential. Serum or plasma urea nitroge n measurement (mass/volume)Ordered By: David Miramontes on 06-29-2022 Urea nitrogen [Mass/Vol] 14 mg/dL 7-[address] [facility] Thin prep Papanicolaou smear with manual screeningOrdered By: David Miramontes on 06-29-2022 Thin prep Papanicolaou smear with manual screening 3 5-[address] [facility] Absolute lymphocyte countOrd ered By: David Miraomntes on 04-01-2022 Lymphocytes Auto (Unsp spec) [#/Vol] 1.25 10*3/uL 0.83-4.[address] [facility] Basophil percentageOrdered B y: David Miramontes on 04-01-2022 Basophils/100 WBC (Bld) 0.4 % 0-1 [facility] Chloride [Moles/Vol] 108 mmol/L 98-[address] [facility] Eosinophils/100 WBC (Bld) 1.5 % 0-[address] [facility] Glucose [Mass/Vol] 106 mg/dL 74-106 [facility] Comment on above: Fasting Glucose resu lt from 100 to 125 mg/dL suggests IMPAIRED HOMEOSTASIS per A.D.A. criteria. Neutrophils (Bld) [#/Vol] 4.7 10*3/uL 2.0-7.[address] [facility] Neutrophils/100 WBC (Bld) 69.1 % 47-[address] [facility] Potassium [Moles/Vol] 3.6 mmol/L 3.5-5.1 [facility] Sodium [Moles/Vol] 143 mmol/L 136-145 [facility] WBC (Bld) [#/Vol] 6.8 10*3/uL 4.4-11.0 [facility] Blood erythrocytes count (nu mber/volume)Ordered By: David Miramontes on 04-01-2022 RBC (Bld) [#/Vol] 4.69 10*6/uL 4.6-6.2 [facility] Blood hemoglobin measurement (mass/volume)Ordered By: David Miramontes on 04-01-2022 Hemoglobin (Bld) [Mass/Vol] 14.8 g/dL 13.0-16.[address] [facility] Blood lymphocytes/100 leukoc ytesOrdered By: David Miramontes on 04-01-2022 Lymphocytes/100 WBC (Bld) 18.5 % 19-[address] [facility] Blood monocytes/100 leukocyt esOrdered By: David Miramontes on 04-01-2022 Monocytes/100 WBC (Bld) 10.2 % 0-10 [facility] Blood platelet mean volumeOr dered By: David Miramontes on 04-01-2022 Platelet mean volume (Bld) [Entitic vol] 11.5 fL 6.2-12.[address] [facility] Determination of erythrocyte mean corpuscular volume (MCV)Ordered By: David Miramontes on 04-01-2022 MCV (RBC) [Entitic vol] 97.0 fL 80-94 [facility] Hematocrit Auto (Bld) [Volum e fraction]Ordered By: David Miramontes on 04-01-2022 Hematocrit (Bld) [Volume fraction] 45.5 % 40-[address] [facility] Laboratory - Chemistry and C hemistry - challengeOrdered By: David Miramontes on 04-01-2022 CO2 [Moles/Vol] 29.0 mmol/L 21.0-32.[address] [facility] Urea nitrogen/Creatinine [Mass ratio] 13.0 mg/mg 10-[address] [facility] Laboratory - Hematology and Cell countsOrdered By: David Miramontes on 04-01-2022 Erythrocyte distribution width (RBC) [Entitic vol] 51.1 fL 35.1-43.[address] [facility] Erythrocyte distribution width (RBC) [Ratio] 14.4 % 11.6-14.[address] [facility] Immature granulocytes/100 WBC (Bld) 0.300 % 0.0-0.[address] [facility] Comment on above: IG% - Immature Granu locytes (promyelocytes, myelocytes and metamyelocytes) > 1% indicates that a LEFT SHIFT is Present. MCH (RBC) [Entitic mass] 31.6 pg 27.0-32.[address] [facility] Nucleated RBC/100 WBC (Bld) [Ratio] 0 % 0-[address] [facility] MCHC Auto (RBC) [Mass/Vol]Or dered By: David Miramontes on 04-01-2022 MCHC (RBC) [Mass/Vol] 32.5 g/dL 32-36 [facility] No Panel InformationOrdered By: David Miramontes on 04-01-2022 Estimated GFR (MDRD) Amer 92 mL/min >[address] [facility] Comment on above: GFR Calc Estimated GFR (MDRD) Non-Af Amer 76 mL/min >[address] [facility] Comment on above: Non- GFR Calc Platelets bldOrdered By: Lg Miramontes on 04-01-2022 Platelets (Bld) [#/Vol] 167 10*3/uL 150-[address] [facility] Serum or plasma calcium siobhan urement (mass/volume)Ordered By: David Miramontes on 04-01-2022 Calcium [Mass/Vol] 9.1 mg/dL 8.5-10.1 [facility] Serum or plasma creatinine m easurement (mass/volume)Ordered By: David Miramontes on 04-01-2022 Creatinine [Mass/Vol] 1.00 mg/dL 0.70-1.30 [facility] Comment on above: The validity of the calculated GFR & GFRAA in patients over 70 years has not been determined. Clinical correlation is essential. Serum or plasma urea nitroge n measurement (mass/volume)Ordered By: David Miramontes on 04-01-2022 Urea nitrogen [Mass/Vol] 13 mg/dL 7-[address] [facility] Thin prep Papanicolaou smear with manual screeningOrdered By: David Miramontes on 04-01-2022 Thin prep Papanicolaou smear with manual screening 6 5-[address] [facility] Absolute lymphocyte countOrd ered By: Jhonny Tomas on 01-07-2022 Lymphocytes Auto (Unsp spec) [#/Vol] 1.54 10*3/uL 0.83-4.[address] [facility] Basophil percentageOrdered B y: Jhonny Tomas on 01-07-2022 Basophils/100 WBC (Bld) 0.3 % 0-1 [facility] Chloride [Moles/Vol] 104 mmol/L 98-[address] [facility] Eosinophils/100 WBC (Bld) 1.9 % 0-[address] [facility] Glucose [Mass/Vol] 89 mg/dL 74-106 [facility] Neutrophils (Bld) [#/Vol] 4.8 10*3/uL 2.0-7.[address] [facility] Neutrophils/100 WBC (Bld) 66.5 % 47-[address] [facility] Potassium [Moles/Vol] 4.1 mmol/L 3.5-5.1 [facility] Sodium [Moles/Vol] 141 mmol/L 136-145 [facility] WBC (Bld) [#/Vol] 7.2 10*3/uL 4.4-11.0 [facility] Blood erythrocytes count (nu mber/volume)Ordered By: Jhonny Tomas on 01-07-2022 RBC (Bld) [#/Vol] 4.80 10*6/uL 4.6-6.2 [facility] Blood hemoglobin measurement (mass/volume)Ordered By: Jhonny Tomas on 01-07-2022 Hemoglobin (Bld) [Mass/Vol] 15.2 g/dL 13.0-16.[address] [facility] Blood lymphocytes/100 leukoc ytesOrdered By: Jhonny Tomas on 01-07-2022 Lymphocytes/100 WBC (Bld) 21.3 % 19-[address] [facility] Blood monocytes/100 leukocyt esOrdered By: Jhonny Tomas on 01-07-2022 Monocytes/100 WBC (Bld) 9.7 % 0-10 [facility] Blood platelet mean volumeOr dered By: Jhonny Tomas on 01-07-2022 Platelet mean volume (Bld) [Entitic vol] 11.2 fL 6.2-12.[address] [facility] Determination of erythrocyte mean corpuscular volume (MCV)Ordered By: Jhonny Tomas on 01-07-2022 MCV (RBC) [Entitic vol] 97.3 fL 80-94 [facility] Hematocrit Auto (Bld) [Volum e fraction]Ordered By: Jhonny Tomas on 01-07-2022 Hematocrit (Bld) [Volume fraction] 46.7 % 40-[address] [facility] Laboratory - Chemistry and C hemistry - challengeOrdered By: Jhonny Tomas on 01-07-2022 CO2 [Moles/Vol] 29.0 mmol/L 21.0-32.[address] [facility] Urea nitrogen/Creatinine [Mass ratio] 11.4 mg/mg 10-[address] [facility] Laboratory - Hematology and Cell countsOrdered By: Jhonny Tomas on 01-07-2022 Erythrocyte distribution width (RBC) [Entitic vol] 52.0 fL 35.1-43.[address] [facility] Erythrocyte distribution width (RBC) [Ratio] 14.5 % 11.6-14.[address] [facility] Immature granulocytes/100 WBC (Bld) 0.300 % 0.0-0.[address] [facility] Comment on above: IG% - Immature Granu locytes (promyelocytes, myelocytes and metamyelocytes) > 1% indicates that a LEFT SHIFT is Present. MCH (RBC) [Entitic mass] 31.7 pg 27.0-32.[address] [facility] Nucleated RBC/100 WBC (Bld) [Ratio] 0 % 0-[address] [facility] MCHC Auto (RBC) [Mass/Vol]Or dered By: Jhonny Tomas on 01-07-2022 MCHC (RBC) [Mass/Vol] 32.5 g/dL 32-36 [facility] No Panel InformationOrdered By: Jhonny Tomas on 01-07-2022 Estimated GFR (MDRD) Amer 79 mL/min >[address] [facility] Comment on above: GFR Calc Estimated GFR (MDRD) Non-Af Amer 65 mL/min >[address] [facility] Comment on above: Non- GFR Calc Platelets bldOrdered By: Joao Tomas on 01-07-2022 Platelets (Bld) [#/Vol] 192 10*3/uL 150-[address] [facility] Serum or plasma calcium siobhan urement (mass/volume)Ordered By: Jhonny Tomas on 01-07-2022 Calcium [Mass/Vol] 8.8 mg/dL 8.5-10.1 [facility] Serum or plasma creatinine m easurement (mass/volume)Ordered By: Jhonny Tomas on 01-07-2022 Creatinine [Mass/Vol] 1.14 mg/dL 0.70-1.30 [facility] Comment on above: The validity of the calculated GFR & GFRAA in patients over 70 years has not been determined. Clinical correlation is essential. Serum or plasma urea nitroge n measurement (mass/volume)Ordered By: Jhonny Tomas on 01-07-2022 Urea nitrogen [Mass/Vol] 13 mg/dL 7-[address] [facility] Thin prep Papanicolaou smear with manual screeningOrdered By: Jhonny Tomas on 01-07-2022 Thin prep Papanicolaou smear with manual screening 8 5-[address] [facility] Absolute lymphocyte countOrd ered By: Jhonny Tomas on 12-24-2021 Lymphocytes Auto (Unsp spec) [#/Vol] 1.60 10*3/uL 0.83-4.[address] [facility] Basophil percentageOrdered B y: Jhonny Tomas on 12-24-2021 Basophils/100 WBC (Bld) 0.4 % 0-1 [facility] Chloride [Moles/Vol] 109 mmol/L 98-[address] [facility] Eosinophils/100 WBC (Bld) 1.5 % 0-[address] [facility] Glucose [Mass/Vol] 93 mg/dL 74-106 [facility] Neutrophils (Bld) [#/Vol] 4.8 10*3/uL 2.0-7.[address] [facility] Neutrophils/100 WBC (Bld) 66.8 % 47-[address] [facility] Potassium [Moles/Vol] 4.0 mmol/L 3.5-5.1 [facility] Comment on above: Slight Hemolysis, Re sult may be falsely increased. Sodium [Moles/Vol] 140 mmol/L 136-145 [facility] WBC (Bld) [#/Vol] 7.2 10*3/uL 4.4-11.0 [facility] Blood erythrocytes count (nu mber/volume)Ordered By: Jhonny Tomas on 12-24-2021 RBC (Bld) [#/Vol] 4.49 10*6/uL 4.6-6.2 [facility] Blood hemoglobin measurement (mass/volume)Ordered By: Jhonny Tomas on 12-24-2021 Hemoglobin (Bld) [Mass/Vol] 14.5 g/dL 13.0-16.[address] [facility] Blood lymphocytes/100 leukoc ytesOrdered By: Jhonny Tomas on 12-24-2021 Lymphocytes/100 WBC (Bld) 22.2 % 19-[address] [facility] Blood monocytes/100 leukocyt esOrdered By: Jhonny Tomas on 12-24-2021 Monocytes/100 WBC (Bld) 9.0 % 0-10 [facility] Blood platelet mean volumeOr dered By: Jhonny Tomas on 12-24-2021 Platelet mean volume (Bld) [Entitic vol] 11.2 fL 6.2-12.[address] [facility] Determination of erythrocyte mean corpuscular volume (MCV)Ordered By: Jhonny Tomas on 12-24-2021 MCV (RBC) [Entitic vol] 97.1 fL 80-94 [facility] Hematocrit Auto (Bld) [Volum e fraction]Ordered By: Jhonny Tomas on 12-24-2021 Hematocrit (Bld) [Volume fraction] 43.6 % 40-[address] [facility] Laboratory - Chemistry and C hemistry - challengeOrdered By: Jhonny Tomas on 12-24-2021 CO2 [Moles/Vol] 26.0 mmol/L 21.0-32.[address] [facility] Urea nitrogen/Creatinine [Mass ratio] 14.7 mg/mg 10-[address] [facility] Laboratory - Hematology and Cell countsOrdered By: Jhnony Tomas on 12-24-2021 Erythrocyte distribution width (RBC) [Entitic vol] 51.8 fL 35.1-43.[address] [facility] Erythrocyte distribution width (RBC) [Ratio] 14.4 % 11.6-14.[address] [facility] Immature granulocytes/100 WBC (Bld) 0.100 % 0.0-0.[address] [facility] Comment on above: IG% - Immature Granu locytes (promyelocytes, myelocytes and metamyelocytes) > 1% indicates that a LEFT SHIFT is Present. MCH (RBC) [Entitic mass] 32.3 pg 27.0-32.[address] [facility] Nucleated RBC/100 WBC (Bld) [Ratio] 0 % 0-[address] [facility] MCHC Auto (RBC) [Mass/Vol]Or dered By: Jhonny Tomas on 12-24-2021 MCHC (RBC) [Mass/Vol] 33.3 g/dL 32-36 [facility] No Panel InformationOrdered By: Jhonny Tomas on 12-24-2021 Estimated GFR (MDRD) Amer 90 mL/min >[address] [facility] Comment on above: GFR Calc Estimated GFR (MDRD) Non-Af Amer 74 mL/min >[address] [facility] Comment on above: Non- GFR Calc Platelets bldOrdered By: Joao Tomas on 12-24-2021 Platelets (Bld) [#/Vol] 166 10*3/uL 150-[address] [facility] Serum or plasma calcium siobhan urement (mass/volume)Ordered By: Jhonny Tomas on 12-24-2021 Calcium [Mass/Vol] 8.8 mg/dL 8.5-10.1 [facility] Serum or plasma creatinine m easurement (mass/volume)Ordered By: Jhonny Tomas on 12-24-2021 Creatinine [Mass/Vol] 1.02 mg/dL 0.70-1.30 [facility] Comment on above: The validity of the calculated GFR & GFRAA in patients over 70 years has not been determined. Clinical correlation is essential. Serum or plasma urea nitroge n measurement (mass/volume)Ordered By: Jhonny Tomas on 12-24-2021 Urea nitrogen [Mass/Vol] 15 mg/dL 7-[address] [facility] Thin prep Papanicolaou smear with manual screeningOrdered By: Jhonny Tomas on 12-24-2021 Thin prep Papanicolaou smear with manual screening 5 5-[address] [facility] Absolute lymphocyte counton 12-10-2021 Lymphocytes Auto (Unsp spec) [#/Vol] 1.33 10*3/uL 0.83-4.[address] [facility] Work Phone: Basophil percentageon 2021 Basophils/100 WBC (Bld) 0.4 % 0-1 [facility] Work Phone: Chloride [Moles/Vol] 105 mmol/L 98-[address] [facility] Work Phone: [phone] Eosinophils/100 WBC (Bld) 1.3 % 0-[address] [facility] Work Phone: [phone] Glucose [Mass/Vol] 103 mg/dL 74-106 [facility] Work Phone: Comment on above: Fasting Glucose resu lt from 100 to 125 mg/dL suggests IMPAIRED HOMEOSTASIS per A.D.A. criteria. Neutrophils (Bld) [#/Vol] 4.8 10*3/uL 2.0-7.[address] [facility] Work Phone: Neutrophils/100 WBC (Bld) 69.1 % 47-[address] [facility] Work Phone: [phone] Potassium [Moles/Vol] 3.7 mmol/L 3.5-5.1 [facility] Work Phone: Sodium [Moles/Vol] 141 mmol/L 136-145 [facility] Work Phone: WBC (Bld) [#/Vol] 7.0 10*3/uL 4.4-11.0 [facility] Work Phone: [phone] Blood erythrocytes count (nu mber/volume)on 12-10-2021 RBC (Bld) [#/Vol] 4.88 10*6/uL 4.6-6.2 [facility]: Blood hemoglobin measurement (mass/volume)on 12-10-2021 Hemoglobin (Bld) [Mass/Vol] 15.5 g/dL 13.0-16.[address] [facility] Work Phone: Blood lymphocytes/100 leukoc yteson 12-10-2021 Lymphocytes/100 WBC (Bld) 19.1 % 19-[address] [facility] Work Phone: Blood monocytes/100 leukocyt eson 12-10-2021 Monocytes/100 WBC (Bld) 9.8 % 0-10 [facility] Work Phone: Blood platelet mean volumeon 12-10-2021 Platelet mean volume (Bld) [Entitic vol] 10.8 fL 6.2-12.[address] [facility] Work Phone: Determination of erythrocyte mean corpuscular volume (MCV)on 12-10-2021 MCV (RBC) [Entitic vol] 95.9 fL 80-94 [facility] Work Phone: Hematocrit Auto (Bld) [Volum e fraction]on 12-10-2021 Hematocrit (Bld) [Volume fraction] 46.8 % 40-[address] [facility] Work Phone: Laboratory - Chemistry and C hemistry - challengeon 12-10-2021 CO2 [Moles/Vol] 30.0 mmol/L 21.0-32.[address] [facility] Work Phone: Urea nitrogen/Creatinine [Mass ratio] 11.3 mg/mg 10-[address] [facility] Work Phone: Laboratory - Hematology and Cell countson 12-10-2021 Erythrocyte distribution width (RBC) [Entitic vol] 51.1 fL 35.1-43.[address] [facility] Work Phone: Erythrocyte distribution width (RBC) [Ratio] 14.4 % 11.6-14.[address] [facility] Work Phone: Immature granulocytes/100 WBC (Bld) 0.300 % 0.0-0.[address] [facility] Work Phone: Comment on above: IG% - Immature Granu locytes (promyelocytes, myelocytes and metamyelocytes) > 1% indicates that a LEFT SHIFT is Present. MCH (RBC) [Entitic mass] 31.8 pg 27.0-32.[address] [facility] Work Phone: Nucleated RBC/100 WBC (Bld) [Ratio] 0 % 0-[address] [facility] Work Phone: MCHC Auto (RBC) [Mass/Vol]on 12-10-2021 MCHC (RBC) [Mass/Vol] 33.1 g/dL 32-36 [facility] Work Phone: No Panel Informationon 12-10 Estimated GFR (MDRD) Amer 86 mL/min >[address] [facility] Work Phone: Comment on above: GFR Calc Estimated GFR (MDRD) Non-Af Amer 71 mL/min >[address] [facility] Work Phone: Comment on above: Non- GFR Calc Platelets bldon 12-10-2021 Platelets (Bld) [#/Vol] 176 10*3/uL 150-[address] [facility] Work Phone: Serum or plasma calcium siobhan urement (mass/volume)on 12-10-2021 Calcium [Mass/Vol] 8.9 mg/dL 8.5-10.1 [facility] Work Phone: Serum or plasma creatinine m easurement (mass/volume)on 12-10-2021 Creatinine [Mass/Vol] 1.06 mg/dL 0.70-1.30 [facility] Work Phone: Comment on above: The validity of the calculated GFR & GFRAA in patients over 70 years has not been determined. Clinical correlation is essential. Serum or plasma urea nitroge n measurement (mass/volume)on 12-10-2021 Urea nitrogen [Mass/Vol] 12 mg/dL 7-[address] [facility] Work Phone: Thin prep Papanicolaou smear with manual screeningon 12-10-2021 Thin prep Papanicolaou smear with manual screening 6 5-[address] [facility] Work Phone: CNPNon 12-09-2021 CNPN Telephone (INTMWS) KEL DILLARD ([id number]) 1940 M Date Time Provider Department 12/09/21 NICOLAS CARDENAS INTMWS During your visit today, we recorded the following information about you: Ludivina Cárdenas LPN 12/09/2021 3:11 PM Signed Patient son Jhonny calling said PCP completed expert evaluation form on 09/29 for guardianship and digital forensics examiner said question number 11 needs revised. Son Jhonny said 2 weeks after form was done father had fall and was taken to [facility] then sent to [facility] for rehab. Now father is in memory [...] stay and he is now under the [place] attending physician's care. It is more appropriate for the [place] attending physician to do another form. More statements need corrected/updated Preethi Delgadillo RN 12/11/2021 2:59 PM Signed Son (Jhonny) calls in and provider message reviewed. Son asking if form brought in can be picked back up in Medical Records. Please contact Jhonny at [phone]. RENETTA Rubio LPN 12/11/2021 3:41 PM Signed [...] by FLORA WOOD LPN on 12/11/21 [facility] Absolute lymphocyte counton 11-26-2021 Lymphocytes Auto (Unsp spec) [#/Vol] 1.47 10*3/uL 0.83-4.[address] [facility] Work Phone: Basophil percentageon 2021 Basophils/100 WBC (Bld) 0.6 % 0-1 [facility] Work Phone: Chloride [Moles/Vol] 107 mmol/L 98-[address] [facility] Work Phone: Eosinophils/100 WBC (Bld) 1.1 % 0-[address] [facility] Work Phone: Glucose [Mass/Vol] 92 mg/dL 74-106 [facility] Work Phone: Neutrophils (Bld) [#/Vol] 6.4 10*3/uL 2.0-7.[address] [facility] Work Phone: Neutrophils/100 WBC (Bld) 71.7 % 47-[address] [facility] Work Phone: Potassium [Moles/Vol] 4.0 mmol/L 3.5-5.1 [facility] Work Phone: Comment on above: Slight Hemolysis, Re sult may be falsely increased. Sodium [Moles/Vol] 141 mmol/L 136-145 [facility] Work Phone: WBC (Bld) [#/Vol] 9.0 10*3/uL 4.4-11.0 [facility] Work Phone: Blood erythrocytes count (nu mber/volume)on 11-26-2021 RBC (Bld) [#/Vol] 4.81 10*6/uL 4.6-6.2 [facility] Work Phone: Blood hemoglobin measurement (mass/volume)on 11-26-2021 Hemoglobin (Bld) [Mass/Vol] 15.3 g/dL 13.0-16.[address] [facility] Work Phone: Blood lymphocytes/100 leukoc yteson 11-26-2021 Lymphocytes/100 WBC (Bld) 16.4 % 19-[address] [facility] Work Phone: Blood monocytes/100 leukocyt eson 11-26-2021 Monocytes/100 WBC (Bld) 9.9 % 0-10 [facility] Work Phone: Blood platelet mean volumeon 11-26-2021 Platelet mean volume (Bld) [Entitic vol] 11.2 fL 6.2-12.[address] [facility] Work Phone: Determination of erythrocyte mean corpuscular volume (MCV)on 11-26-2021 MCV (RBC) [Entitic vol] 96.7 fL 80-94 [facility] Work Phone: Hematocrit Auto (Bld) [Volum e fraction]on 11-26-2021 Hematocrit (Bld) [Volume fraction] 46.5 % 40-[address] [facility] Work Phone: Laboratory - Chemistry and C hemistry - challengeon 11-26-2021 CO2 [Moles/Vol] 28.0 mmol/L 21.0-32.[address] [facility] Work Phone: Urea nitrogen/Creatinine [Mass ratio] 13.3 mg/mg 10-[address] [facility] Work Phone: Laboratory - Hematology and Cell countson 11-26-2021 Erythrocyte distribution width (RBC) [Entitic vol] 51.9 fL 35.1-43.[address] [facility] Work Phone: Erythrocyte distribution width (RBC) [Ratio] 14.5 % 11.6-14.[address] [facility] Work Phone: Immature granulocytes/100 WBC (Bld) 0.300 % 0.0-0.[address] [facility] Work Phone: Comment on above: IG% - Immature Granu locytes (promyelocytes, myelocytes and metamyelocytes) > 1% indicates that a LEFT SHIFT is Present. MCH (RBC) [Entitic mass] 31.8 pg 27.0-32.[address] [facility] Work Phone: Nucleated RBC/100 WBC (Bld) [Ratio] 0 % 0-[address] [facility] Work Phone: MCHC Auto (RBC) [Mass/Vol]on 11-26-2021 MCHC (RBC) [Mass/Vol] 32.9 g/dL 32-36 [facility] Work Phone: No Panel Informationon 11-26 Estimated GFR (MDRD) Amer 80 mL/min >[address] [facility] Work Phone: Comment on above: GFR Calc Estimated GFR (MDRD) Non-Af Amer 66 mL/min >[address] [facility] Work Phone: Comment on above: Non- GFR Calc Platelets bldon 11-26-2021 Platelets (Bld) [#/Vol] 181 10*3/uL 150-[address] [facility] Work Phone: Serum or plasma calcium siobhan urement (mass/volume)on 11-26-2021 Calcium [Mass/Vol] 8.7 mg/dL 8.5-10.1 [facility] Work Phone: Serum or plasma creatinine m easurement (mass/volume)on 11-26-2021 Creatinine [Mass/Vol] 1.13 mg/dL 0.70-1.30 [facility] Work Phone: Comment on above: The validity of the calculated GFR & GFRAA in patients over 70 years has not been determined. Clinical correlation is essential. Serum or plasma urea nitroge n measurement (mass/volume)on 11-26-2021 Urea nitrogen [Mass/Vol] 15 mg/dL 7-[address] [facility] Work Phone: Thin prep Papanicolaou smear with manual screeningon 11-26-2021 Thin prep Papanicolaou smear with manual screening 6 5-[address] [facility] Work Phone: [phone] Absolute lymphocyte counton 11-12-2021 Lymphocytes Auto (Unsp spec) [#/Vol] 1.01 10*3/uL 0.83-4.[address] [facility] Work Phone: Basophil percentageon 2021 Basophils/100 WBC (Bld) 0.6 % 0-1 [facility] Work Phone: Chloride [Moles/Vol] 109 mmol/L 98-[address] [facility] Work Phone: Eosinophils/100 WBC (Bld) 1.1 % 0-[address] [facility] Work Phone: Glucose [Mass/Vol] 89 mg/dL 74-106 [facility] Work Phone: Neutrophils (Bld) [#/Vol] 4.7 10*3/uL 2.0-7.[address] [facility] Work Phone: Neutrophils/100 WBC (Bld) 72.7 % 47-[address] [facility] Work Phone: Potassium [Moles/Vol] 3.9 mmol/L 3.5-5.1 [facility] Work Phone: Sodium [Moles/Vol] 142 mmol/L 136-145 [facility] Work Phone: WBC (Bld) [#/Vol] 6.5 10*3/uL 4.4-11.0 [facility] Work Phone: Blood erythrocytes count (nu mber/volume)on 09-14-2022 RBC (Bld) [#/Vol] 4.50 10*6/uL 4.6-6.2 [facility] Work Phone: Blood hemoglobin measurement (mass/volume)on 11-12-2021 Hemoglobin (Bld) [Mass/Vol] 14.4 g/dL 13.0-16.[address] [facility] Work Phone: Blood lymphocytes/100 leukoc yteson 11-12-2021 Lymphocytes/100 WBC (Bld) 15.5 % 19-[address] [facility] Work Phone: Blood monocytes/100 leukocyt eson 11-12-2021 Monocytes/100 WBC (Bld) 9.8 % 0-10 [facility] Work Phone: Blood platelet mean volumeon 11-12-2021 Platelet mean volume (Bld) [Entitic vol] 10.9 fL 6.2-12.[address] [facility] Work Phone: Determination of erythrocyte mean corpuscular volume (MCV)on 11-12-2021 MCV (RBC) [Entitic vol] 97.3 fL 80-94 [facility] Work Phone: Hematocrit Auto (Bld) [Volum e fraction]on 11-12-2021 Hematocrit (Bld) [Volume fraction] 43.8 % 40-[address] [facility] Work Phone: Laboratory - Chemistry and C hemistry - challengeon 11-12-2021 CO2 [Moles/Vol] 26.0 mmol/L 21.0-32.[address] [facility] Work Phone: Urea nitrogen/Creatinine [Mass ratio] 16.4 mg/mg 10-[address] [facility] Work Phone: Laboratory - Hematology and Cell countson 11-12-2021 Erythrocyte distribution width (RBC) [Entitic vol] 53.1 fL 35.1-43.[address] [facility] Work Phone: Erythrocyte distribution width (RBC) [Ratio] 14.8 % 11.6-14.[address] [facility] Work Phone: Immature granulocytes/100 WBC (Bld) 0.300 % 0.0-0.[address] [facility] Work Phone: Comment on above: IG% - Immature Granu locytes (promyelocytes, myelocytes and metamyelocytes) > 1% indicates that a LEFT SHIFT is Present. MCH (RBC) [Entitic mass] 32.0 pg 27.0-32.[address] [facility] Work Phone: Nucleated RBC/100 WBC (Bld) [Ratio] 0 % 0-[address] [facility] Work Phone: MCHC Auto (RBC) [Mass/Vol]on 11-12-2021 MCHC (RBC) [Mass/Vol] 32.9 g/dL 32-36 [facility] Work Phone: No Panel Informationon 11-12 Estimated GFR (MDRD) Amer 102 mL/min >[address] [facility] Work Phone: Comment on above: GFR Calc Estimated GFR (MDRD) Non-Af Amer 84 mL/min >[address] [facility] Work Phone: Comment on above: Non- GFR Calc Platelets bldon 11-12-2021 Platelets (Bld) [#/Vol] 181 10*3/uL 150-[address] [facility] Work Phone: Serum or plasma calcium siobhan urement (mass/volume)on 11-12-2021 Calcium [Mass/Vol] 8.7 mg/dL 8.5-10.1 [facility] Work Phone: Serum or plasma creatinine m easurement (mass/volume)on 11-12-2021 Creatinine [Mass/Vol] 0.92 mg/dL 0.70-1.30 [facility] Work Phone: Comment on above: The validity of the calculated GFR & GFRAA in patients over 70 years has not been determined. Clinical correlation is essential. Serum or plasma urea nitroge n measurement (mass/volume)on 11-12-2021 Urea nitrogen [Mass/Vol] 15 mg/dL 7-[address] [facility] Work Phone: [phone] Thin prep Papanicolaou smear with manual screeningon 11-12-2021 Thin prep Papanicolaou smear with manual screening 7 5-[address] [facility] Work Phone: [phone] Absolute lymphocyte counton 10-29-2021 Lymphocytes Auto (Unsp spec) [#/Vol] 0.96 10*3/uL 0.83-4.[address] [facility] Work Phone: [phone] Basophil percentageon 2021 Basophils/100 WBC (Bld) 0.5 % 0-1 [facility] Work Phone: Chloride [Moles/Vol] 110 mmol/L 98-[address] [facility] Work Phone: Eosinophils/100 WBC (Bld) 1.9 % 0-[address] [facility] Work Phone: [phone] Glucose [Mass/Vol] 93 mg/dL 74-106 [facility] Work Phone: Neutrophils (Bld) [#/Vol] 4.5 10*3/uL 2.0-7.[address] [facility] Work Phone: [phone] Neutrophils/100 WBC (Bld) 70.1 % 47-[address] [facility] Work Phone: [phone] Potassium [Moles/Vol] 3.8 mmol/L 3.5-5.1 [facility] Work Phone: Sodium [Moles/Vol] 142 mmol/L 136-145 [facility] Work Phone: WBC (Bld) [#/Vol] 6.4 10*3/uL 4.4-11.0 [facility] Work Phone: [phone] Blood erythrocytes count (nu mber/volume)on 10-29-2021 RBC (Bld) [#/Vol] 4.38 10*6/uL 4.6-6.2 [facility] Work Phone: Blood hemoglobin measurement (mass/volume)on 10-29-2021 Hemoglobin (Bld) [Mass/Vol] 13.9 g/dL 13.0-16.[address] [facility] Work Phone: Blood lymphocytes/100 leukoc yteson 10-29-2021 Lymphocytes/100 WBC (Bld) 15.1 % 19-[address] [facility] Work Phone: Blood monocytes/100 leukocyt eson 10-29-2021 Monocytes/100 WBC (Bld) 12.1 % 0-10 [facility] Work Phone: Blood platelet mean volumeon 10-29-2021 Platelet mean volume (Bld) [Entitic vol] 11.2 fL 6.2-12.[address] [facility] Work Phone: Determination of erythrocyte mean corpuscular volume (MCV)on 10-29-2021 MCV (RBC) [Entitic vol] 96.8 fL 80-94 [facility] Work Phone: Hematocrit Auto (Bld) [Volum e fraction]on 10-29-2021 Hematocrit (Bld) [Volume fraction] 42.4 % 40-[address] [facility] Work Phone: Laboratory - Chemistry and C hemistry - challengeon 10-29-2021 CO2 [Moles/Vol] 27.0 mmol/L 21.0-32.[address] [facility] Work Phone: Urea nitrogen/Creatinine [Mass ratio] 11.1 mg/mg 10-[address] [facility] Work Phone: Laboratory - Hematology and Cell countson 10-29-2021 Erythrocyte distribution width (RBC) [Entitic vol] 52.1 fL 35.1-43.[address] [facility] Work Phone: Erythrocyte distribution width (RBC) [Ratio] 14.6 % 11.6-14.[address] [facility] Work Phone: Immature granulocytes/100 WBC (Bld) 0.300 % 0.0-0.[address] [facility] Work Phone: Comment on above: IG% - Immature Granu locytes (promyelocytes, myelocytes and metamyelocytes) > 1% indicates that a LEFT SHIFT is Present. MCH (RBC) [Entitic mass] 31.7 pg 27.0-32.[address] [facility] Work Phone: Nucleated RBC/100 WBC (Bld) [Ratio] 0 % 0-[address] [facility] Work Phone: MCHC Auto (RBC) [Mass/Vol]on 10-29-2021 MCHC (RBC) [Mass/Vol] 32.8 g/dL 32-36 [facility] Work Phone: No Panel Informationon 10-29 Estimated GFR (MDRD) Amer 84 mL/min >[address] [facility] Work Phone: Comment on above: GFR Calc Estimated GFR (MDRD) Non-Af Amer 70 mL/min >[address] [facility] Work Phone: Comment on above: Non- GFR Calc Platelets bldon 10-29-2021 Platelets (Bld) [#/Vol] 187 10*3/uL 150-[address] [facility] Work Phone: Serum or plasma calcium siobhan urement (mass/volume)on 10-29-2021 Calcium [Mass/Vol] 8.8 mg/dL 8.5-10.1 [facility] Work Phone: Serum or plasma creatinine m easurement (mass/volume)on 10-29-2021 Creatinine [Mass/Vol] 1.08 mg/dL 0.70-1.30 [facility] Work Phone: Comment on above: The validity of the calculated GFR & GFRAA in patients over 70 years has not been determined. Clinical correlation is essential. Serum or plasma urea nitroge n measurement (mass/volume)on 10-29-2021 Urea nitrogen [Mass/Vol] 12 mg/dL 7-[address] [facility] Work Phone: Thin prep Papanicolaou smear with manual screeningon 10-29-2021 Thin prep Papanicolaou smear with manual screening 5 5-[address] [facility] Work Phone: Sera 10-23-2021 [facility] Telephone (INTMWS) KEL DILLARD ([id number]) 1940 M Date Time Provider Department 10/23/21 NICOLAS CARDENAS INTMWS During your visit today, we recorded the following information about you: Flora Wood LPN 10/23/2021 11:54 AM Signed Per [facility] discharge info pt was discharged to [facility] 10/22/21. Allergies As of Date: 10/23/2021 (No Known Allergies) Date Reviewed: 09/29/2021 Reviewed by: Aisha Mccullough BILLET STRAIGHTENER - Fully Assessed Reason for Visit: Patient [...] by FLORA WOOD LPN on 10/23/21 [facility] Laboratory - Chemistry and C hemistry - challengeon 10-22-2021 CK [Catalytic activity/Vol] 1616 U/L 39-[address] [facility] Work Phone: Absolute lymphocyte counton 10-21-2021 Lymphocytes Auto (Unsp spec) [#/Vol] 0.75 10*3/uL 0.83-4.[address] [facility] Work Phone: Basophil percentageon 2021 Basophils/100 WBC (Bld) 0.1 % 0-1 [facility] Work Phone: Chloride [Moles/Vol] 107 mmol/L 98-107 [facility] Work [facility]: Eosinophils/100 WBC (Bld) 0.0 % 0-[address] [facility] Work Phone: Glucose [Mass/Vol] 144 mg/dL 74-106 [facility] Work Phone: Comment on above: Fasting Glucose resu lt greater than or equal to 126 mg/dL suggests DIABETES MELLITUS per A.D.A. criteria. Neutrophils (Bld) [#/Vol] 11.4 10*3/uL 2.0-7.[address] [facility] Work Phone: Neutrophils/100 WBC (Bld) 85.4 % 47-[address] [facility] Work Phone: Potassium [Moles/Vol] 3.7 mmol/L 3.5-5.1 [facility] Work Phone: Sodium [Moles/Vol] 141 mmol/L 136-145 [facility] Work Phone: WBC (Bld) [#/Vol] 13.4 10*3/uL 4.4-11.0 [facility] Work Phone: [phone] Blood erythrocytes count (nu mber/volume)on 10-21-2021 RBC (Bld) [#/Vol] 5.04 10*6/uL 4.6-6.2 [facility] Work Phone: Blood hemoglobin measurement (mass/volume)on 10-21-2021 Hemoglobin (Bld) [Mass/Vol] 15.7 g/dL 13.0-16.[address] [facility] Work Phone: Blood lymphocytes/100 leukoc yteson 10-21-2021 Lymphocytes/100 WBC (Bld) 5.6 % 19-[address] [facility] Work Phone: Blood monocytes/100 leukocyt eson 10-21-2021 Monocytes/100 WBC (Bld) 8.5 % 0-10 [facility] Work Phone: Blood platelet mean volumeon 10-21-2021 Platelet mean volume (Bld) [Entitic vol] 11.2 fL 6.2-12.[address] [facility] Work Phone: Determination of erythrocyte mean corpuscular volume (MCV)on 10-21-2021 MCV (RBC) [Entitic vol] 93.8 fL 80-94 [facility] Work Phone: Hematocrit Auto (Bld) [Volum e fraction]on 10-21-2021 Hematocrit (Bld) [Volume fraction] 47.3 % 40-[address] [facility] Work Phone: Laboratory - Chemistry and C hemistry - challengeon 10-21-2021 CO2 [Moles/Vol] 26.0 mmol/L 21.0-32.[address] [facility] Work Phone: Urea nitrogen/Creatinine [Mass ratio] 14.2 mg/mg 10-[address] [facility] Work Phone: Laboratory - Hematology and Cell countson 10-21-2021 Erythrocyte distribution width (RBC) [Entitic vol] 50.5 fL 35.1-43.[address] [facility] Work Phone: Erythrocyte distribution width (RBC) [Ratio] 14.7 % 11.6-14.[address] [facility] Work Phone: Immature granulocytes/100 WBC (Bld) 0.400 % 0.0-0.[address] [facility] Work Phone: Comment on above: IG% - Immature Granu locytes (promyelocytes, myelocytes and metamyelocytes) > 1% indicates that a LEFT SHIFT is Present. MCH (RBC) [Entitic mass] 31.2 pg 27.0-32.[address] [facility] Work Phone: Nucleated RBC/100 WBC (Bld) [Ratio] 0 % 0-[address] [facility] Work Phone: MCHC Auto (RBC) [Mass/Vol]on 10-21-2021 MCHC (RBC) [Mass/Vol] 33.2 g/dL 32-36 [facility] Work [facility]: No Panel Informationon 10-21 Estimated Creatinine Clearance Calc 48.76 ml/min [facility] Work Phone: Estimated GFR (MDRD) Amer 80 mL/min >[address] [facility] Work Phone: Comment on above: GFR Calc Estimated GFR (MDRD) Non-Af Amer 66 mL/min >[address] [facility] Work Phone: Comment on above: Non- GFR Calc Thyroid Stimulating Hormone (TSH) 1.56 uIU/mL 0.358-3.[address] [facility] Work Phone: Vitamin D 25-Hydroxy 10.8 ng/mL [facility] Work Phone: Comment on above: Vitamin D 25(OH) Sta tus Range Deficiency <20 ng/mL (50nmol/L) Insufficiency 20 - 30 ng/mL (50 - 75 nmol/L) Sufficiency 30 - 100 ng/mL (75 - 250 nmol/L) Toxicity >100 ng/mL (>250 nmol/L) Platelets bldon 10-21-2021 Platelets (Bld) [#/Vol] 219 10*3/uL 150-[address] [facility] Work Phone: Serum or plasma calcium siobhan urement (mass/volume)on 10-21-2021 Calcium [Mass/Vol] 9.1 mg/dL 8.5-10.1 [facility] Work Phone: Serum or plasma creatinine m easurement (mass/volume)on 10-21-2021 Creatinine [Mass/Vol] 1.13 mg/dL 0.70-1.30 [facility] Work Phone: Comment on above: The validity of the calculated GFR & GFRAA in patients over 70 years has not been determined. Clinical correlation is essential. Serum or plasma urea nitroge n measurement (mass/volume)on 10-21-2021 Urea nitrogen [Mass/Vol] 16 mg/dL 7-[address] [facility] Work Phone: Thin prep Papanicolaou smear with manual screeningon 10-21-2021 Thin prep Papanicolaou smear with manual screening 8 5-[address] [facility] Work Phone: Absolute lymphocyte counton 10-20-2021 Lymphocytes Auto (Unsp spec) [#/Vol] 0.59 10*3/uL 0.83-4.[address] [facility] Work Phone: Basophil percentageon 2021 Basophil percentage 5-10 SEEN /hpf 0-5 [facility] Work Phone: Basophils/100 WBC (Bld) 0.1 % 0-1 [facility] Work Phone: Chloride [Moles/Vol] 107 mmol/L 98-[address] [facility] Work Phone: Eosinophils/100 WBC (Bld) 0.0 % 0-[address] [facility] Work Phone: [phone] Glucose [Mass/Vol] 110 mg/dL 74-106 [facility] Work Phone: Comment on above: Fasting Glucose resu lt from 100 to 125 mg/dL suggests IMPAIRED HOMEOSTASIS per A.D.A. criteria. Neutrophils (Bld) [#/Vol] 11.6 10*3/uL 2.0-7.[address] [facility] Work Phone: Neutrophils/100 WBC (Bld) 85.8 % 47-[address] [facility] Work Phone: Potassium [Moles/Vol] 3.6 mmol/L 3.5-5.1 [facility] Work Phone: Sodium [Moles/Vol] 141 mmol/L 136-145 [facility] Work Phone: WBC (Bld) [#/Vol] 13.5 10*3/uL 4.4-11.0 [facility] Work Phone: Bilirubin Test strip Ql (U)o n 10-20-2021 Bilirubin Ql (U) Negative Negative [facility] Work Phone: Blood erythrocytes count (nu mber/volume)on 10-20-2021 RBC (Bld) [#/Vol] 5.14 10*6/uL 4.6-6.2 [facility] Work Phone: Blood hemoglobin measurement (mass/volume)on 10-20-2021 Hemoglobin (Bld) [Mass/Vol] 15.9 g/dL 13.0-16.[address] [facility] Work Phone: Blood lymphocytes/100 leukoc yteson 10-20-2021 Lymphocytes/100 WBC (Bld) 4.4 % 19-[address] [facility] Work Phone: Blood manual differential co mment interpretation (narrative result)on 10-20-2021 Manual differential comment Wei (Bld) [Interp] SEE COMMENT [facility] Work Phone: Comment on above: LYMPHOPENIA NOTED Blood monocytes/100 leukocyt eson 10-20-2021 Monocytes/100 WBC (Bld) 9.0 % 0-10 [facility] Work Phone: Blood platelet adequacy dete ction by light microscopyon 10-20-2021 Platelets LM Ql (Bld) ADEQUATE ADEQ [facility] Work Phone: Blood platelet mean volumeon 10-20-2021 Platelet mean volume (Bld) [Entitic vol] 10.4 fL 6.2-12.[address] [facility] Work Phone: Determination of erythrocyte mean corpuscular volume (MCV)on 10-20-2021 MCV (RBC) [Entitic vol] 92.8 fL 80-94 [facility] Work Phone: Hematocrit Auto (Bld) [Volum e fraction]on 10-20-2021 Hematocrit (Bld) [Volume fraction] 47.7 % 40-[address] [facility] Work Phone: Hyaline casts LM.LPF (Urine sed) [#/Area]on 10-20-2021 Hyaline casts (Urine sed) [#/Area] 0 /[LPF] 0-[address] [facility] Work Phone: Ketones Test strip Ql (U)on 10-20-2021 Ketones Ql (U) 50 mg/dl Negative [facility] Work Phone: Laboratory - Chemistry and C hemistry - challengeon 10-20-2021 CO2 [Moles/Vol] 25.0 mmol/L 21.0-32.[address] [facility] Work Phone: Urea nitrogen/Creatinine [Mass ratio] 15.0 mg/mg 10-[address] [facility] Work Phone: Laboratory - Hematology and Cell countson 10-20-2021 Anisocytosis Ql (Bld) RARE [facility] Work Phone: Erythrocyte distribution width (RBC) [Entitic vol] 48.4 fL 35.1-43.[address] [facility] Work Phone: Erythrocyte distribution width (RBC) [Ratio] 14.4 % 11.6-14.[address] [facility] Work Phone: Immature granulocytes/100 WBC (Bld) 0.700 % 0.0-0.[address] [facility] Work Phone: Comment on above: IG% - Immature Granu locytes (promyelocytes, myelocytes and metamyelocytes) > 1% indicates that a LEFT SHIFT is Present. MCH (RBC) [Entitic mass] 30.9 pg 27.0-32.[address] [facility] Work Phone: Nucleated RBC/100 WBC (Bld) [Ratio] 0 % 0-[address] [facility] Work Phone: MCHC Auto (RBC) [Mass/Vol]on 10-20-2021 MCHC (RBC) [Mass/Vol] 33.3 g/dL 32-36 [facility] Work Phone: Macrocytes detectionon 10-20 Macrocytes Ql (Bld) RARE [facility] Work Phone: Mucus LM Ql (Urine sed)on Mucus Ql (Urine sed) 0 SEEN /hpf [facility] Work Phone: Nitrite Test strip Ql (U)on 10-20-2021 Nitrite Ql (U) Negative Negative [facility] Work Phone: No Panel Informationon 10-20 Estimated Creatinine Clearance Calc 53.23 ml/min [facility] Work Phone: Estimated GFR (MDRD) Amer 85 mL/min >[address] [facility] Work Phone: Comment on above: GFR Calc Estimated GFR (MDRD) Non-Af Amer 70 mL/min >[address] [facility] Work Phone: Comment on above: Non- GFR Calc Platelets bldon 10-20-2021 Platelets (Bld) [#/Vol] 198 10*3/uL 150-[address] [facility] Work Phone: Protein Test strip Ql (U)on 10-20-2021 Protein Ql (U) 30 mg/dl Negative [facility] Work Phone: RBC morphologyon 10-20-2021 RBC morphology finding Nom (Bld) N CHROM NORMAL NORM C&C [facility] Work Phone: Serum or plasma calcium siobhan urement (mass/volume)on 10-20-2021 Calcium [Mass/Vol] 9.1 mg/dL 8.5-10.1 [facility] Work Phone: Serum or plasma creatinine m easurement (mass/volume)on 10-20-2021 Creatinine [Mass/Vol] 1.07 mg/dL 0.70-1.30 [facility] Work Phone: Comment on above: The validity of the calculated GFR & GFRAA in patients over 70 years has not been determined. Clinical correlation is essential. Serum or plasma urea nitroge n measurement (mass/volume)on 10-20-2021 Urea nitrogen [Mass/Vol] 16 mg/dL 7-[address] [facility] Work Phone: Squamous epithelial cells de tection in urine sediment by light microscopyon 10-20-2021 Epithelial cells.squamous LM Ql (Urine sed) 0 SEEN /hpf 0-[address] [facility] Work Phone: Thin prep Papanicolaou smear with manual screeningon 10-20-2021 Thin prep Papanicolaou smear with manual screening 9 5-[address] [facility] Work Phone: Urine blood detectionon -04 02-2021 RBC Ql (U) 250 /ul Negative [facility] Work Phone: RBC Ql (U) 0 SEEN /hpf 0-[address] [facility] Work Phone: Urine clarityon 10-20-2021 Clarity (U) Sl. Cloudy Clear [facility] Work Phone: Urine color determinationon 10-20-2021 Color (U) Kristina Yellow [facility] Work Phone: Urine glucose detectionon Glucose Ql (U) Normal mg/dl Normal [facility] Work Phone: Urine leukocyte esterase det ection by dipstickon 10-20-2021 Leukocyte esterase Test strip Ql (U) 25 /ul Negative [facility] Work Phone: Urine pHon 10-20-2021 pH (U) 5.0 [pH] 5.0 - 8.[address] [facility] Work Phone: Urine sediment bacteria coun t by microscopy (number/high power field)on 10-20-2021 Bacteria LM.HPF (Urine sed) [#/Area] 1 /[HPF] None Seen [facility] Work Phone: Urine specific gravity measu rementon 10-20-2021 Specific gravity (U) [Rel density] 1.025 1.002-1.[address] [facility] Work Phone: Urobilinogen Auto test strip Ql (U)on 10-20-2021 Urobilinogen Ql (U) 1 mg/dl Normal [facility] Work Phone: CNOVon 09-29-2021 CNOV Office Visit (INTMWS) KEL DILLARD ([id number]) 1940 M Date Time Provider Department 09/29/21 4:40 PM NICOLAS CARDENAS INTDiogoWS During your visit today, we recorded the following information about you: Temperature Pulse Respiration Blood pressure Normal [facility] [place] 07-15-2021 [facility] Telephone (INTMWS) KEL DILLARD ([id number]) 1940 M Date Time Provider Department 07/15/21 NICOLAS CARDENAS INTGINA During your visit today, we recorded the following information about you: Karen Matias RN 07/15/2021 1:40 PM Signed Yesenia, Admissions staff member at [facility] calling to state patient's son Jhonny has reached out to them to request patient possibly be admitted into their memory care unit due to cognition concerns. Yesenia is requesting notes from patient's last OV be faxed to them at [phone]. This nurse contacted son Jhonny to verify the request and he confirmed it was ok to share requested information. Information faxed as requested. Karen Matias RN Allergies As of Date: 07/15/2021 (No Known Allergies) Date Reviewed: 05/12/2021 Reviewed by: Dori Martines APRN.WAGON DRIVER SALESPERSON - Fully Assessed Reason for Visit: fax [...] Status:Closed by KAREN MATIAS on 07/15/21 [facility] Culture, urine Bacteria identified Cx Nom (U) Positive [facility] Work Phone: Vital Signs Date Time Vital Sign Value Performing Clinician Chris polk 10-29-2024 11:28-0400 Body temperature 98.3 [degF] Dr. David Miramontes MD Work Phone: [facility] 10-29-2024 11:28-0400 Diastolic blood pressure 84 mm[Hg] Dr. David Miramontes MD Work Phone: [facility] 10-29-2024 11:28-0400 Heart rate 66 /min Dr. David Miramontes MD Work Phone: [facility] 10-29-2024 11:28-0400 Respiratory rate 16 /min Dr. David Miramontes MD Work Phone: [facility] 10-29-2024 11:28-0400 SaO2% (BldA) [Mass fraction] 99 % Dr. David Miramontes MD Work Phone: [facility] 10-29-2024 11:28-0400 Systolic blood pressure 118 mm[Hg] Dr. David Miramontes MD Work Phone: [facility] 10-29-2024 09:52-0400 Body height 172.[address] David Miramontes MD Work Phone: [facility] 10-29-2024 09:52-0400 Body mass index (BMI) [Ratio] 29.1 kg/m2 Dr. David Miramontes MD Work Phone: [facility] 10-29-2024 09:52-0400 Body weight [address] David Miramontes MD Work Phone: [facility] 10-27-2024 22:00-0400 Diastolic blood pressure 55 mm[Hg] Dr. David Miramontes MD Work Phone: [facility] 10-27-2024 22:00-0400 Heart rate 65 /min Dr. David Miramontes MD Work Phone: [facility] 10-27-2024 22:00-0400 Respiratory rate 16 /min Dr. David Miramontes MD Work Phone: [facility] 10-27-2024 22:00-0400 Systolic blood pressure 146 mm[Hg] Dr. David Miramontes MD Work Phone: [facility] 10-27-2024 21:52-0400 Body temperature 98 [degF] Dr. David Miramontes MD Work Phone: [facility] 10-27-2024 21:52-0400 SaO2% (BldA) [Mass fraction] 96 % Dr. Davdi Miramontes MD Work Phone: [facility] 10-27-2024 20:34-0400 Body height 172.[address] David Miramontes MD Work Phone: [facility] 10-27-2024 20:34-0400 Body mass index (BMI) [Ratio] 30.2 kg/m2 Dr. David Miramontes MD Work Phone: [facility] 10-27-2024 20:34-0400 Body weight 90.[address] David Miramontes MD Work Phone: [facility] 09-15-2024 13:51-0400 Body height 175.[address] David Miramontes MD Work Phone: [facility] 09-15-2024 12:10-0400 Body height 175.[address] David Miramontes MD Work Phone: [facility] 09-13-2024 11:44-0400 Body height 175.[address] David Miramontes MD Work Phone: [facility] 12-02-2022 10:40-0400 Body height 175.[address] Nicolas Cardenas Work Phone: [facility] 04-02-2022 14:41-0500 Body height 175.[address] Nicolas Cardenas Work Phone: [facility] 10-22-2021 08:30-0400 Body temperature 98.2 [degF] Dr. Nicolas Cardenas Work Phone: [facility] Work Phone: 10-22-2021 08:30-0400 Diastolic blood pressure 71 mm[Hg] Dr. Nicolas Cardenas Work Phone: [facility] Work Phone: 10-22-2021 08:30-0400 Heart rate 59 /min Dr. Nicolas Cardenas Work Phone: [facility] Work Phone: 10-22-2021 08:30-0400 Respiratory rate 16 /min Dr. Nicolas Cardenas Work Phone: [facility] Work Phone: 10-22-2021 08:30-0400 SaO2% (BldA) [Mass fraction] 95 % Dr. Nicolas Cardenas Work Phone: [facility] Work Phone: 10-22-2021 08:30-0400 Systolic blood pressure 125 mm[Hg] Dr. Nicolas Cardenas Work Phone: [facility] Work Phone: 10-21-2021 01:00-0400 Body height 175.[address] Nicolas Cardenas Work Phone: [facility] Work Phone: 10-21-2021 01:00-0400 Body mass index (BMI) [Ratio] 28.1 kg/m2 Dr. Nicolas Cardenas Work Phone: [facility] Work Phone: 10-21-2021 01:00-0400 Body weight 86.[address] Nicolas Cardenas Work Phone: [facility] Work Phone: 10-21-2021 00:46-0400 Body temperature 97.9 [degF] Dr. Nicolas Cardenas Work Phone: [facility] Work Phone: 10-21-2021 00:46-0400 Diastolic blood pressure 74 mm[Hg] Dr. Nicolas Cardenas Work Phone: [facility] Work Phone: 10-21-2021 00:46-0400 Heart rate 60 /min Dr. Nicolas Cardenas Work Phone: [facility] Work Phone: 10-21-2021 00:46-0400 Respiratory rate 25 /min Dr. Nicolas Cardenas Work Phone: [facility] Work Phone: 10-21-2021 00:46-0400 SaO2% (BldA) [Mass fraction] 94 % Dr. Nicolas Cardenas Work Phone: [facility] Work Phone: 10-21-2021 00:46-0400 Systolic blood pressure 115 mm[Hg] Dr. Nicolas Cardenas Work Phone: [facility] Work Phone: 10-20-2021 20:20-0400 Body height 175.[address] Nicolas Cardenas Work Phone: [facility] Work Phone: 10-20-2021 20:20-0400 Body mass index (BMI) [Ratio] 28.6 kg/m2 Dr. Nicolas Cardenas Work Phone: [facility] Work Phone: 10-20-2021 20:20-0400 Body weight 87.[address] Nicolas Cardenas Work Phone: [facility] Work Phone: 09-29-2021 16:45-0400 Body height 165.7 cm Nicolas Cardenas MD Work Phone: [facility] 09-29-2021 16:45-0400 Body temperature 97.3 [degF] Nicolas Cardenas MD Work Phone: [facility] 09-29-2021 16:45-0400 Body weight 87.09 kg Nicolas Cardenas MD Work Phone: [facility] 09-29-2021 16:45-0400 Diastolic blood pressure 76 mm[Hg] Nicolas Cardenas MD Work Phone: [facility] 09-29-2021 16:45-0400 Heart rate 60 /min Nicolas Cardenas MD Work Phone: [facility] 09-29-2021 16:45-0400 Respiratory rate 16 /min Nicolas Cardenas MD Work Phone: [facility] 09-29-2021 16:45-0400 Systolic blood pressure 130 mm[Hg] Nicolas Cardenas MD Work Phone: [facility] Encounters Encounter Date Encounter Type Care Provider Facility Start: 10-31-2024 ambulatory David Richardson ty:[facility] Start: 10-29-2024 End: 10-29-2024 Emergency department patient visit Dr. David Miramontes MD Work Phone: -Emergency Department Work Phone: Start: 10-27-2024 End: 10-27-2024 Emergency department patient visit Dr. David Miramontes MD Work Phone: -Emergency Department Work Phone: Start: 09-29-2024 End: 09-29-[address] David Miramontes MD Work Phone: Formerly Named [facility] Start: 09-29-2024 End: 09-29-2024 Patient encounter procedure Dasia Barrett PRESS SETTER-[facility] Work Phone: Start: 09-25-2024 End: 09-25-2024 Patient encounter procedure Marimar Zimmer PRESS SETTER-[facility] Work Phone: Start: 09-25-2024 End: 09-25-[address] David Miramontes MD Work Phone: [facility] N[facility] Start: 09-25-2024 Registered Referred David AdamKrystle Piyush Start: 09-19-2024 End: 09-19-[address] David Miramontes MD Work Phone: [facility] Start: 09-19-2024 End: 09-19-2024 Patient encounter procedure Marimar Zimmer [facility] Work Phone: Start: 09-07-2024 ambulatory Efewongbe Oleghe Facili ty:[facility] Start: 09-07-2024 Registered Referred [place] [place] Start: 08-31-2024 ambulatory Efewongbe Oleghe Facili ty:[facility] Start: 08-31-2024 Registered Referred [facility] AdamKrystle [facility] Start: 08-29-2024 End: 08-29-[address] David Miramontes MD Work Phone: Former[facility] Named [facility] Start: 08-29-2024 End: 08-29-[address] David Miramontes MD -[facility] Work Phone: Start: 08-25-2024 End: 08-25-[address] David Miramontes MD Work Phone: Former[facility] Named [facility] Start: 08-25-2024 End: 08-25-2024 Patient encounter procedure Marimar Zimmer [facility] Work Phone: Start: 08-22-2024 ambulatory Efewongbe Oleghe Facili ty:[facility] Start: 08-22-2024 [facility] Start: 08-21-2024 End: 08-21-[address] David Miramontes MD Work Phone: Former[facility] Named [facility] Start: 08-21-2024 End: 08-21-2024 [facility] Start: 08-21-2024 End: 08-21-[address] David Miramontes MD Work Phone: [facility] Start: 08-21-2024 End: 08-21-[address] Edson Quinn MD -[facility] Work Phone: Start: 08-15-2024 End: 08-15-[address] David Miramontes MD Work Phone: Former[facility] Named [facility] Start: 08-15-2024 End: 08-15-2024 Patient encounter procedure Marimar Zimmer [facility] Work Phone: Start: 08-02-2024 ambulatory Efewongbe Oleghe Facili ty:[facility] Start: 08-02-2024 Registered Referred David Pickett Start: 08-01-2024 ambulatory Efewongbe Oleghe Facili ty:[facility] Start: 08-01-2024 Registered Referred David AdamKrystle Pickett Start: 07-21-2024 ambulatory Efdanay GARCIA Fa cility:[facility] Start: 07-21-2024 Registered Referred David AdamKrystle Pickett Start: 07-20-2024 End: 07-20-[address] David Miramontes MD Work Phone: [facility] Start: 07-20-2024 End: 07-20-2024 Patient encounter procedure Marimar Zimmer -[facility] Work Phone: Start: 07-18-2024 End: 07-18-[address] David Miramontes MD Work Phone: [facility] N[facility] Start: 07-18-2024 End: 07-18-[address] David Miramontes MD -[facility] Work Phone: Start: 07-17-2024 End: 07-17-2024 Follow-up encounter Diana Andres Postlethwait DEVELOPMENT TEAM LEAD.WAGON DRIVER SALESPERSON Work Phone: [facility] Comment on above: Results Start: 07-14-2024 End: 07-14-2024 Office outpatient new 30 minutes Diana Andres Postlethwait DEVELOPMENT TEAM LEAD.WAGON DRIVER SALESPERSON Work Phone: [facility] Comment on above: Gross hematuria (Lise wallace Dx) Start: 07-14-2024 End: 07-14-2024 ambulatory DIANA ANDRES POSTLETHWAIT Facility:[facility] Start: 07-04-2024 End: 07-04-[address] David Miramontes MD Work Phone: [facility] Start: 07-04-2024 End: 07-04-2024 Patient encounter procedure Marimar Zimmer [facility] Work Phone: Start: 06-23-2024 End: 06-23-[address] David Miramontes MD Work Phone: [facility] Work Phone: Start: 06-23-2024 End: 06-23-2024 Departed Referred David Miramontes MD [facility] Start: 06-23-2024 End: 06-23-2024 ambulatory David Miramontes Facility:[facility] Start: 06-05-2024 End: 06-05-[address] David Miramontes MD Work Phone: [facility] Work Phone: Start: 06-05-2024 End: 06-05-2024 Departed Referred David AdamKrystle Pickett Start: 06-05-2024 Registered Referred David Pickett Start: 06-05-2024 End: 06-05-2024 ambulatory David Miramontes OLS Facility:[facility] Start: 05-30-2024 ambulatory David Miramontes Facili ty:[facility] Start: 05-30-2024 Non-patient / Non-visit Dr. Josiah Klein MD [facility] Start: 05-30-2024 End: 05-30-[address] David Miramontes MD -[facility] Work Phone: Start: 05-30-2024 End: 05-30-2024 ambulatory Marimar Mesha Facility:[facility] Start: 05-30-2024 End: 05-30-2024 Patient encounter procedure Marimar Mesha [facility] Work Phone: Start: 05-30-2024 End: 05-30-[address] David Miramontes MD Work Phone: [facility] Work Phone: Start: 05-30-2024 End: 05-30-2024 Departed Referred David AdamKrystle Pickett Start: 05-30-2024 Registered Referred David AdamKrystle Piyush Start: 05-30-2024 End: 05-30-2024 ambulatory David Miramontes Facility:[facility] Start: 05-23-2024 End: 05-23-2024 ambulatory Efdanay Miramontes Facility:[facility] Start: 05-23-2024 End: 05-23-[address] David Miramontes MD -[facility] Work Phone: Start: 05-22-2024 End: 05-22-[address] David Miramnotes MD Work Phone: [facility] Work Phone: Start: 05-22-2024 End: 05-22-2024 Departed Referred David Miramontes MD [facility] Start: 05-22-2024 [facility]: 05-22-2024 End: 05-22-[address] Edson Quinn MD -[facility] Work Phone: Start: 05-22-2024 End: 05-22-2024 ambulatory Edson Quinn Facility:[facility] Start: 05-18-2024 End: 05-18-2024 [facility] Start: 05-18-2024 End: 05-18-2024 Patient encounter procedure Marimar Zimmer PRESS SETTER-C -[facility] Work Phone: Start: 05-13-2024 End: 05-13-2024 ambulatory [place] Facility:[facility] Start: 05-13-2024 End: 05-13-[address] Edson Quinn MD -[facility] Work Phone: Start: 05-11-2024 End: 05-11-2024 [facility] Start: 05-11-2024 End: 05-11-2024 Patient encounter procedure Marimar Zimmer PRESS SETTER-C -[facility] Work Phone: Start: 05-01-2024 End: 05-01-2024 ambulatory Marimarjacinto Zimmer Facility:[facility] Start: 05-01-2024 End: 05-01-2024 Patient encounter procedure Marimar Zimmer PRESS SETTER-C -[facility] Work Phone: Start: 04-19-2024 End: 04-19-2024 ambulatory Marimar Mesha Facility:[facility] Start: 04-19-2024 End: 04-19-2024 Patient encounter procedure Marimar Zimmer PRESS SETTER-C -[facility] Work Phone: Start: 04-17-2024 ambulatory Efewongbe Oleghe Facili ty:[facility] Start: 04-17-2024 [facility] Start: 04-13-2024 ambulatory Efewongbe Oleghe Facili ty:[facility] Start: 04-13-2024 Registered Referred David AdamKrystle [facility] Start: 04-11-2024 End: 04-11-2024 ambulatory David Miramontes Facility:[facility] Start: 04-11-2024 End: 04-11-[address] David Miramontes MD -[facility] Work Phone: Start: 04-07-2024 ambulatory Efewongbe Oleamnae Facili ty:[facility] Start: 04-07-[address] [facility] Start: 04-04-2024 ambulatory Efwayneongingris Guerrae Facili ty:[facility] Start: 04-04-2024 [facility] Start: 03-13-2024 End: 03-13-2024 ambulatory Marimar Zimmer Facility:[facility] Start: 03-13-2024 End: 03-13-2024 Patient encounter procedure Marimar Zimmer PRESS SETTER-C -[facility] Work Phone: Start: 03-02-2024 End: 03-02-2024 ambulatory Isidro HOOD Facility:[facility] Start: 03-02-2024 End: 03-02-2024 Patient encounter procedure Isidro HOOD -[facility] Work Phone: Start: 02-15-2024 End: 02-15-2024 ambulatory David Miramontes Facility:[facility] Start: 02-15-2024 End: 02-15-[address] [facility] Start: 02-14-2024 End: 02-14-2024 ambulatory Edson Quinn Facility:[facility] Start: 02-14-2024 End: 02-14-[address] Edson Quinn MD -[facility] Work Phone: Start: 02-03-2024 ambulatory David Simonsi ty:[facility] Start: 01-12-2024 End: 01-12-2024 ambulatory Marimar Zimmer Facility:[facility] Start: 01-04-2024 ambulatory Efewongbe Charliee Facili ty:[facility] Start: 12-28-2023 End: 12-28-2023 ambulatory Edson Quinn Facility:[facility] Start: 12-07-2023 End: 12-07-2023 ambulatory David Miramontes Facility:[facility] Start: 11-15-2023 End: 11-15-2023 ambulatory Kyung Wright Facility:[facility] Start: 11-08-2023 End: 11-08-2023 ambulatory Edson Quinn Facility:[facility] Start: 04-06-2023 End: 04-06-[address] Nicolas Cardenas Work Phone: [facility] Work Phone: Start: 04-06-2023 End: 04-06-[address] Nicolas Cardenas Work Phone: [facility] Start: 02-02-2023 End: 02-02-[address] Nicolas Cardenas Work Phone: [facility] Work Phone: Start: 01-15-2023 End: 01-15-[address] Nicolas Cardenas Work Phone: [facility] Work Phone: Start: 12-30-2022 End: 12-30-[address] Nicolas Cardenas Work Phone: [facility] Work Phone: Start: 12-30-2022 End: 12-30-[address] Nicolas Cardenas Work Phone: [facility] Start: 11-23-2022 End: 11-23-[address] Nicolas Cardenas Work Phone: [facility] Work Phone: Start: 11-17-2022 End: 11-17-[address] Nicolas Cardenas Work Phone: [facility] Work Phone: Start: 10-06-2022 End: 10-06-[address] Nicolas Cardenas Work Phone: [facility] Work Phone: Start: 09-29-2022 End: 09-29-[address] Nicolas Cardenas Work Phone: [facility] Start: 09-23-2022 End: 09-23-[address] Nicolas Cardenas Work Phone: [facility] Work Phone: Start: 06-29-2022 End: 06-29-[address] Nicolas Cardenas Work Phone: [facility] Work Phone: Start: 06-29-2022 End: 06-29-[address] Nicolas Cardenas Work Phone: [facility] Start: 06-23-2022 End: 06-23-[address] Nicolas Cardenas Work Phone: [facility] Start: 06-05-2022 ambulatory Yoli Reardon [employer] Comment on above: Population Health Na vigation Outreach ([facility]) Start: 05-18-2022 End: 05-18-[address] Nicolas Cardenas Work Phone: [facility] Start: 04-14-2022 End: 04-14-[address] Nicolas Cardenas Work Phone: [facility] Start: 04-01-2022 End: 04-01-[address] Nicolas Cardenas Work Phone: [facility] Work Phone: Start: 04-01-2022 End: 04-01-[address] Nicolas Cardenas Work Phone: [facility] Start: 03-16-2022 End: 03-16-[address] Nicolas Cardenas Work Phone: [facility] Start: 02-24-2022 End: 02-24-[address] Nicolas Cardenas Work Phone: [facility] Start: 01-07-2022 End: 01-07-[address] Nicolas Cardenas Work Phone: [facility] Start: 01-05-2022 End: 01-05-[address] Nicolas Cardenas Work Phone: [facility] Start: 12-24-2021 End: 12-24-[address] Nicolas Cardenas Work Phone: [facility] Work Phone: Start: 12-24-2021 End: 12-24-[address] Nicolas Cardenas Work Phone: [facility] Start: 12-24-[address] Nicolas Cardenas Work Phone: [facility] Start: 12-15-2021 End: 12-15-[address] Nicolas Cardenas Work Phone: [facility] Start: 12-10-2021 End: 12-10-[address] Nicolas Cardenas Work Phone: [facility] Work Phone: Start: 12-10-2021 End: 12-10-[address] Nicolas Cardenas Work Phone: [facility] Start: 12-10-[address] Nicolas Cardenas Work Phone: [facility] Start: 12-09-2021 Telephone encounter Nicolas gutierrez MD Work Phone: [facility] [place] Comment on above: form dropping off Start: 11-26-2021 End: 11-26-[address] Nicolas Cardenas Work Phone: [facility] Work Phone: Start: 11-26-2021 End: 11-26-[address] Nicolas Cardenas Work Phone: [facility] Start: 11-12-[address] Nicolas Cardenas Work Phone: [facility] Start: 10-29-[address] Nicolas Cardenas Work Phone: [facility] Start: 10-23-2021 Telephone encounter Nicolas gutierrez MD Work Phone: [facility] [place] Comment on above: Patient Update Start: 10-22-2021 Non-patient / Non-visit Dr. Nicolas Cardenas Work Phone: [facility] Start: 10-21-2021 Non-patient / Non-visit Dr. Nicolas Cardenas Work Phone: [facility] Start: 10-20-2021 Non-patient / Non-visit Dr. Nicolas Cardenas Work Phone: [facility] Start: 10-20-2021 End: 10-22-2021 Evaluation and management of inpatient Dr. Nicolas Cardenas Work Phone: [facility] 3 Start: 10-20-2021 End: 10-22-[address] 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 David Miramontes MD Work Phone: Start: 10-29-2024 Plain x-ray of wrist Dr Micah Miramontes MD Work Phone: Start: 10-27-2024 CT of head without contrast Dr. David Miramontes MD Work Phone: Start: 09-25-2024 Gram stain microscopy D ophelia Miramontes MD Work Phone: Start: 09-25-2024 End: 09-25-2024 Microbial culture, routine Dr. David Miramontes MD Work Phone: Start: 07-14-2024 BLADDER SCAN Diana Linares Postlethit DEVELOPMENT TEAM LEAD.WAGON DRIVER SALESPERSON Work Phone: Start: 07-14-2024 Urnls dip stick/tabl et rgnt auto w/o microscopy Diana Andres Postlethit DEVELOPMENT TEAM LEAD.WAGON DRIVER SALESPERSON Work Phone: Start: 05-30-[address] [...] Start: 10-20-2021 Plain chest X-ray Dr. Christine Cradenas Work Phone: Start: 10-20-2021 CT of head without contrast Dr. Nicolas Cardenas Work Phone: Start: 09-29-2021 [employer] COVI D-19 VACCINE, AGE 12+ YR (LANGE TOP) Nicolas Cardenas MD Work Phone: Urine culture Dr. Nicolas Farley Work Phone: Viral antigen assay Dr. Filiberto Cardenas Work Phone: Plan of Treatment Date Care Activity Detail Author Start: 10-30-2024 Influenza vaccination Influenz a Vaccine (Season Ended) [facility] Start: 10-29-2024 [facility] Start: 10-27-2024 End: 10-27-[address] [facility] Start: 10-27-2024 Brain/Head without Contrast Brain/Head without Contrast [facility] Start: 10-27-2024 CT Unspecified body region WO contrast [facility] Start: 09-25-2024 Microbial culture, routine Wound Cul ture [facility] Start: 09-25-2024 [facility] Start: 04-22-2024 DIABETES SCREEN DIABETES SCREEN [facility] Start: 04-22-2024 Diabetes Screening Diabetes Screenin g [facility] Start: 03-01-2024 Advance Directive Discussion Advance Directive Discussion [facility] Start: 10-31-2023 Covid-19 Vaccine ( season) Covid-19 Vaccine ( season) [facility] Start: 10-30-2022 Influenza vaccination INFLUENZ A (Season Ended) [facility] Start: 05-12-2022 SHINGRIX VACCINE (2 of 3) DUMAS GRIX VACCINE (2 of 3) [facility] Comment on above: Postponed from 07/18 (Declined at this time) Start: 03-01-2022 ADVANCE DIRECTIVE DISCUSSION ADVANCE DIRECTIVE DISCUSSION [facility] Start: 11-24-2021 COVID-19 VACCINE (5 - Booster for Pfizer series) COVID-19 VACCINE (5 - Booster for Pfizer series) [facility] Start: 10-30-2021 Influenza vaccination INFLUENZA (#1) [facility] Start: 10-22-2021 Patient discharge [facility] Work Phone: Start: 10-21-2021 Following clinical p athway protocol [facility] Work Phone: Start: 10-21-2021 Assessment of risk o f venous thromboembolism [facility] Work Phone: Start: 10-21-2021 Insertion of cathete r into peripheral vein [facility] Work Phone: Start: 10-21-[address] [facility] [address] [facility] Work Phone: Start: 10-21-2021 Providing care accor ding to standard [facility] Work Phone: Start: 10-21-2021 Provision of activit y privileges [facility] Work Phone: Start: 10-21-2021 Referral to occupati onal therapist [facility] Work Phone: Start: 10-21-2021 Referral to service [facility] Work Phone: Start: 10-21-2021 [facility] Work Phone: Start: 10-21-2021 Verification routine [facility] Work Phone: Start: 10-21-2021 CT angiography of he ad and neck CTA Head AND Neck W/ Contrast [facility] Work Phone: Start: 10-21-2021 CTA Head vessels and Neck vessels W contrast IV [facility] Work Phone: Start: 10-20-2021 [facility] Work Phone: Start: 10-20-2021 Admission procedure [facility] Work Phone: Start: 09-11-2021 COVID-19 VACCINE (4 - Booster for Pfizer series) COVID-19 VACCINE (4 - Booster for Pfizer series) [facility] Start: 08-23-2021 Urine microalbumin profile [facility] Comment on above: Postponed from 07/15 (Declined at this time) Start: 2014 RSV Vaccine (1 - 1-d ose 75+ series) RSV Vaccine (1 - 1-dose 75+ series) [facility] Start: 07-18-2013 SHINGRIX VACCINE (2 of 3) DUMAS GRIX VACCINE (2 of 3) [facility] Start: 07-15-2010 Urine microalbumin profile [facility] CYTOLOGY NON-SPECIAL EVENTS ASSISTANT CYTOLOGY NON-GY N Lab Routine Gross hematuria Ordered: 07/14/2024 [facility] Work Phone: Comment on above: Ordered: 07/14/2024 Patient Education [facility] Work Phone: Patient referral [facility] Work Phone: [facility] Immunizations Immunization Date Immunization Notes Care Provider Fa cility 09-29-2021 COVID-19 vaccine, ag e 12+ yr (PFIZER-BIONTECH - LANGE TOP) Nicolas Cardenas MD Work Phone: [facility] Work Phone: 05-12-2021 COVID-19 vaccine, ag e 12+ yr (PFIZER-BIONTECH - LANGE TOP) Nicolas Cardenas MD Work Phone: [facility] 03-31-2021 influenza, high-dose , quadrivalent vaccine (FLUZONE HIGH DOSE QUADRIVALENT) Nicolas Cardenas MD Work Phone: [facility] Work Phone: 03-31-2021 influenza virus vaccine, unspecified formulation Diana Arango APRN.CNP Work Phone: [facility] 06-17-2020 COVID-19 vaccine, ag e 12+ yr (PFIZER-BIONTECH - PURPLE TOP) Nicolas Cardenas MD Work Phone: [facility] Work Phone: 05-27-2020 COVID-19 vaccine, ag e 12+ yr ([employer]-Twist - PURPLE TOP) Nicolas Cardenas MD Work Phone: [facility] Work Phone: 04-22-2020 influenza, high-dose , quadrivalent vaccine (FLUZONE HIGH DOSE QUADRIVALENT) Nicolas Cardenas MD Work Phone: [facility] Work Phone: 01-19-2019 influenza, high dose seasonal, preservative-free Nicolas Cardenas MD Work Phone: [facility] 02-03-2018 influenza, high dose seasonal, preservative-free Nicolas Cardenas MD Work Phone: [facility] 01-18-2017 influenza, high dose seasonal, preservative-free Nicolas Cardenas MD Work Phone: [facility] 12-27-2015 influenza, high dose seasonal, preservative-free Nicolas Cardenas MD Work Phone: [facility] 12-26-2014 influenza, high dose seasonal, preservative-free Nicolas Cardenas MD Work Phone: [facility] 06-26-2014 pneumococcal conjuga te vaccine, 13 valent Nicolas Cardenas MD Work Phone: [facility] 12-28-2013 influenza, seasonal, injectable Nicolas Cardenas MD Work Phone: [facility] 05-23-2013 zoster vaccine, live Nicolas Cardenas MD Work Phone: [facility] 07-14-2010 tetanus and diphther ia toxoids, adsorbed, preservative free, for adult use (2 Lf of tetanus toxoid and 2 Lf of diphtheria toxoid) Nicolas Cardenas MD Work Phone: [facility] Work Phone: 01-13-2006 pneumococcal polysaccharide vaccine, 23 valent Nicolas Cardenas MD Work Phone: [facility] Payers Date Payer Category Payer Medicaid [id number] 2023 Self-pay [id number] 2013 Private Health Insurance [facility] AARP SUPPLEMENT [id number] 2013-Present [phone] [address] [place] [address] Indemnity [id number] 2013 Private Health Insurance [id number] 2013 Unknown [id number] 2004 Medicare MEDICARE MEDICAR E A AND B [id number] 2004-Present [phone] [address] [address] [place] [address] Medicare [id number]. [id number] 2004 Medicare [id number]. 1.13.159.2. [id number] 2004 Medicare [id number] Private Health Insurance [facility] [id number] Unknown [id number] 2.16.840.1.015815.3.579.2. 462 Unknown [id number] 2.16.840.1.413359.3.579.2. 462 Unknown [id number] 2.16.840.1.558880.3.579.2. 462 Unknown [id number] 2.16.840.1.215326.3.579.2. 462 Unknown [id number] 2.16.840.1.075318.3.579.2. 462 Unknown [id number] 2.16.840.1.098072.3.579.2. 462 Unknown [id number] 2.16.840.1.816238.3.579.2. 462 Unknown [id number] 2.16.840.1.350027.3.579.2. 462 Unknown [id number] 2.16.840.1.459398.3.579.2. 462 Unknown [id number] 2.16840.1.369190.3.579.2. 462 Unknown [id number] 2.16.840.1.367439.3.579.2. 462 Unknown [id number] 2.16840.1.803562.3.579.2. 462 Unknown [id number] 2.16840.1.822967.3.579.2. 462 Unknown [id number] 2.16840.1.695313.3.579.2. 462 Unknown [id number] 2.16840.1.663657.3.579.2. 462 Unknown [id number] 2.16.840.1.522334.3.579.2. 462 Unknown [id number] 2.16840.1.339202.3.579.2. 462 Unknown [id number] 2.16840.1.054507.3.579.2. 462 Unknown [id number] 2.16.840.1.887870.3.579.2. 462 Unknown [id number] 2.16.840.1.224708.3.579.2. 462 Unknown [id number] 2.16.840.1.443722.3.579.2. 462 Unknown [id number] 2.16.840.1.729982.3.579.2. 462 Unknown [id number] 2.16.840.1.001432.3.579.2. 462 Unknown [id number] 2.16.840.1.570266.3.579.2. 462 Unknown [id number] 2.16.840.1.150369.3.579.2. 462 Unknown [id number] 2.16.840.1.766260.3.579.2. 462 Unknown [id number] 2.16.840.1.302066.3.579.2. 462 Unknown [id number] 2.16.840.1.269684.3.579.2. 462 Unknown [id number] 2.16.840.1.958118.3.579.2. 462 Unknown [id number] 2..840.1.788965.3.579.2. 462 Unknown [id number] 2.840.1.733469.3.579.2. 462 Unknown [id number] 2.16.840.1.235535.3.579.2. 462 Unknown [id number] 2.840.1.542137.3.579.2. 462 Unknown [id number] 2.16.840.1.763574.3.579.2. 462 Unknown [id number] 2.16840.1.405992.3.579.2. 462 Unknown [id number] 2.16.840.1.376365.3.579.2. 462 Unknown [id number] 2.16.840.1.777770.3.579.2. 462 Unknown [id number] 2.16.840.1.082737.3.579.2. 462 Unknown [id number] 2.16.840.1.809296.3.579.2. 462 Unknown [id number] 2.16.840.1.821041.3.579.2. 462 Unknown [id number] 2.16840.1.671957.3.579.2. 462 Unknown [id number] 2.16.840.1.277925.3.579.2. 462 Unknown [id number] 2.16.840.1.089345.3.579.2. 462 Unknown [id number] 2.16.840.1.968203.3.579.2. 462 Unknown [id number] 2.16.840.1.783544.3.579.2. 462 Unknown [id number] 2.16.840.1.763923.3.579.2. 462 Unknown [id number] 2.16.840.1.213241.3.579.2. 462 Unknown [id number] 2.16.840.1.951371.3.579.2. 462 Unknown [id number] 2.16.840.1.268574.3.579.2. 462 Unknown [id number] 2.16.840.1.924707.3.579.2. 462 Unknown [id number] 2.16.840.1.102770.3.579.2. 462 Unknown [id number] 2.16.840.1.528673.3.579.2. 462 Unknown [id number] 2.16840.1.494572.3.579.2. 462 Unknown [id number] 2.16840.1.585326.3.579.2. 462 Unknown [id number] 2.840.1.346782.3.579.2. 462 Social History Date Type Detail Facility Start: 04-22-2012 End: 10-29-2024 Tobacco smoking status NHIS Ex-smoker [facility] Start: 03-01-1949 End: 03-01-1959 History of tobacco use Current smoker [facility] Start: 03-01-1949 End: 03-01-1959 History of tobacco use Cigarette Smoker [facility] Start: 05-12-2021 End: 07-14-2024 Alcohol intake Current non-drinker of alcohol (finding) [facility] Start: 1940 [facility] Start: 09-19-2021 End: 09-29-2021 Exposure to SARS-CoV-2 (event) Not sure [facility] Work Phone: Start: 10-21-2021 End: 12-02-2022 Tobacco smoking status NHIS Unknown if ever smoked [facility] Start: 1940 Sex Assigned At Male W [facility] Start: 04-22-2012 End: 07-14-2024 Cigarettes smoked current (pack per day) - Reported 1 [facility] Start: 04-22-2012 Tobacco use and exposure Smokeless tobacco non-user [facility] Work Phone: Start: 06-05-2024 End: 06-21-2024 Sex Male (finding) [facility] Start: 02-03-2018 End: 07-14-2024 Tobacco use panel [facility] Adult Depression Screening Assessment 0 [facility] Goals Date Patient Goal Desired Activity /State Functional Status Date Assessment Result Facility 10-22-2021 Functional status Bedrest [facility] Work Phone: 06-26-2014 Are you deaf, or do you have serious difficulty hearing No 06/26/2014 10:08 AM FREDDYT Anjelica Perez Cma [facility] 06-26-2014 Are you blind, or do you have serious difficulty seeing, even when wearing glasses No 06/26/2014 10:08 AM Anjelica Esparza Cma [facility] 06-26-2014 Do you have serious difficulty walking or climbing stairs No 06/26/2014 10:08 AM EDAnjelica Moore Cma [facility] 06-26-2014 Do you have difficul ty dressing or bathing No 06/26/2014 10:08 AM Anjelica Esparza Cma [facility] 06-26-2014 Because of a physica l, mental, or emotional condition, do you have difficulty doing errands alone such as visiting a physician's office or shopping No 06/26/2014 10:08 AM Anjelica Esparza Cma [facility] Mental Status Date Assessment Result Facility 10-22-2021 Cognitive function Voice/Name [facility] Work Phone: 10-20-2021 Cognitive function Appropriate;Cooperatichristine e [facility] Work Phone: 06-26-2014 Because of a physica l, mental, or emotional condition, do you have serious difficulty concentrating, remembering, or making decisions No 06/26/2014 10:08 AM EDT Chris MooreAnjelica No [facility] Clinical Notes 09-16-2018 to 10-29-2024 Telephone Encounter - Stefany Mcclure RN - 07/17/2024 11:17 AM EDTTelephone Encounter - Stefany Mcclure RN - 07/17/2024 11:17 AM EDTTelephone Encounter - Stefany Mcclure RN - 07/17/2024 11:14 AM EDT Note Date & Type Note Facility 10-29-[address] [facility] 10-29-2024 Radiology Diagnostic study note [facility] Imaging Services [address] [place] [address] [id number] Wrist min 3 Views MR#: [id number] Acct: [id number] Name: KEL DILLARD Rep #: [id number] : 1940 M 84 From: Brodie Martinez MD PCP: Dr. David Miramontes MD Status: R EG ER Study:Wrist min 3 Views Date of Exam: Exam# [id number] Ordering Dr: Bibi Leigh MD PROCEDURE: WRIST MIN 3 VIEWS 10/29/2024 REASON FOR EXAM: SWELLING L WRIST. FALLS TECHNIQUE: Procedure Code: RADWR Modality: DX Procedure: WRIST MIN 3 VIEWS Laterality: Left COMPARISON: None. FINDINGS: Bones: No acute bony abnormalities. Joints: Radiocarpal and 1st carpometacarpal joints. Narrowing and sclerosis. Soft tissues: No soft tissue abnormalities. RAD/Wrist min 3 Views IMPRESSION: No acute osseous abnormalities. Mild arthritis. Reading Location: [facility] CC: Dr. David Miramontes MD; Dr. Abhinav Leigh MD ~ Cold Working Inspector: Signed [facility] 10-29-2024 Radiology Diagnostic study note [facility] Imaging Services [address] [facility] [place], [place] [address] Hand Min 3 Views MR#: [id number] Acct: [id number] Name: KEL DILLARD Rep #: [id number] : 1940 M 84 From: Brodie Martinez MD PCP: Dr. David Miramontes MD Status: R EG ER Study:Hand Min 3 Views Date of Exam: Exam# [id number] Ordering Dr: Bibi Leigh MD PROCEDURE: HAND MIN 3 VIEWS 10/29/2024 REASON FOR EXAM: FALL TECHNIQUE: Procedure Code: ERENDIRA Modality: DX Procedure: HAND MIN 3 VIEWS Laterality: Left COMPARISON: None. FINDINGS: Bones: No acute bony abnormalities. Joints: Unremarkable. Soft tissues: No soft tissue abnormalities. RAD/Hand Min 3 Views IMPRESSION: No acute osseous abnormalities. Reading Location: [id number] CC: Dr. David Miramontes MD; Dr. Abhinav Leigh MD ~ Cold Working Inspector: Signed [facility] 10-27-2024 Radiology Diagnostic study note [facility] Imaging Services [address] [place], [place] [address] Brain/Head without Contrast MR#: [id number] Acct: [id number] Name: KEL DILLARD Rep #: [id number] : 1940 M 84 From: Krzysztof Mariano MD PCP: Dr. David Miramontes MD Status: R EG ER Study:Brain/Head without Contrast Date of Exa m: 10/27/24 Exam# [id number] Ordering Dr: Ira Zarate PROCEDURE: CT BRAIN/HEAD [...] loss and chronic microangiopathic changes. Reading Location: [id number] CC: Dr. David Miramontes MD; ERWIN Phillip ~ Cold Working Inspector: Signed [facility] 07-17-2024 Telephone encounter Note Spoke with patient's son and notified of information as per provider. He states that they are going to hold off on having tests listed below,. He will let us know if he needs anything or wants test done in the future. Verbalized understanding and has no further questions. Stefany Mcclure RN [facility] Work Phone: 07-17-2024 Miscellaneous Notes Spoke [...] if he wishes. documented in this encounter [facility] 07-17-2024 Telephone encounter Note ----- Message from Diana Arango APRN.WAGON DRIVER SALESPERSON sent at 07/17/2024 11:12 AM EDT ----- Please notify patient/patient's son that patient's cytology came back negative for high-grade urothelial carcinoma. This is great news! Given his mentation and mobility -- we could hold off on CT/cysto if he wishes. [facility] 07-14-2024 History of Present illness Narrative Images from the original note were not included. [facility] - [place] [facility] NEW PATIENT UROLOGY VISIT 07/14/2024 8:51 AM [...] (no units) Date Value 08/12/2018 Negative Specific [place], Ur (no units) Date Value 08/12/2018 1.018 [...] intervention based on that result. - CYTOLOGY NON-SPECIAL EVENTS ASSISTANT - Call son with results. Will make treatment plan decision from there. Follow-up as needed. Diana Arango APRN.CNP documented in this encounter [facility] 07-14-2024 Note HNO ID: [id number] Author: DIANA ARANGO APRN.CNP Service: ? Author Type: Nurse Practitioner Type: Progress Notes Filed: 07/14/2024 09:11 Note Text: [facility] Kid[facility] - [place] [facility] NEW PATIENT UROLOGY VISIT 07/14/2024 8:51 AM [...] Psychiatric: (more content not included)... [facility] 06-05-2022 Note HNO ID: [id number] Author: Yoli Garner Service: ? Author Type: ? Type: Progress Notes Filed: 06/05/2022 2:00 PM Note Text: POPULATION HEALTH NAVIGATION OUTREACH Action/I 1st attempt: Spoke to patient's daughter. Patient now resides at [facility] and receives medical care there. [...] Yoli Garner June 05, 2022 1:58 PM [facility] 06-05-2022 Note Patient Outreach (NE TNAV) ---- KEL DILLARD ([id number]) 1940 M Date Time Provider Department 06/05/22 YOLI GARNER During your visit today, we recorded the following information about you: Yoli Garner 06/05/2022 2:00 PM Signed POPULATION HEALTH NAVIGATION OUTREACH Action/ attempt: Spoke to patient's daughter. Patient now resides at [facility] and receives medical care there. [...] Encounter Status:Closed by YOLI GARNER on 06/05/22 [facility] 06-05-2022 History of Present illness Narrative POPULATION HEALTH NAVIGATION OUTREACH Action/ 1st attempt: Spoke to patient's daughter. Patient now resides at [facility] and receives medical care there. [...] 2022 1:58 PM documented in this encounter [facility] 12-11-2021 Miscellaneous Notes Forms pts son brought in have been sent to medical records. Pts son notified. He can pick them up there. Son (Jhonny) calls in and provider message reviewed. Son asking if form brought in can be picked back up in Medical Records. Please contact Jhonny at [phone]. Preethi Delgadillo RN I have not seen him since hospital stay and he is now under the [place] attending physician's care. It is more appropriate for the [place] attending physician to do another form. More statements need corrected/updated Form to pcp to review. Patient son Jhonny willis said PCP completed expert evaluation form on 09/29 for guardianship and digital forensics examiner said question number 11 needs revised. Son Jhonny said 2 weeks after form was done father had fall and was taken to [facility] then sent to [facility] for rehab. Now father is in memory care unit, his dementia is at 6 out of 7. Son is going to drop off new form to be competed, since father can not care for himself or do anything for himself. Please advise documented in this encounter [facility] 10-23-2021 Miscellaneous Notes Per [facility] discharge info pt was discharged to [facility] 10/22/21. documented in this encounter [facility] 09-29-2021 Note HNO ID: [id number] Author: Nicolas Cardenas MD Service: ? Author Type: Physician Type: Progress Notes Filed: 09/29/2021 6:08 PM Note Text: This note was created using [employer]. Subjective Kel Dilladr is a 81 year old male. He was here with his son. He was home bound due to memory loss and cognitive deficits. He gets lost if he wandered outside. Son was here with form requesting guardianship. This was part of POA he was establishing. They were exploring half-way placement in anticipation of need, but Kel [...] willingness to follow recommendations. Nicolas Cardenas MD [facility] 09-29-2021 Note HNO ID: [id number] Author: Nicolas Cardenas MD Service: ? Author [...] current specialists seen: Pulmonary- Dr. Valle Cardiology- [facility] Partner- Barb End of Live Planning discussed including [...] and Tdap at pharmacy Nicolas Cardenas MD [facility] 09-29-2021 History of Present illness Narrative This note was created using [employer]. Subjective Kel Dillard is a 81 year old male. He was here with his son. He was home bound due to memory loss and cognitive deficits. He gets lost if he wandered outside. Son was here with form requesting guardianship. This was part of POA he was establishing. They were exploring half-way placement in anticipation of need, but Kel [...] vaccine - ICD9: V04.89, ICD10: Z23 - [employer] COVID-19 VACCINE, AGE 12+ YR (LANGE TOP) [...] current specialists seen: Pulmonary- Dr. Valle Cardiology- [facility] Partner- Barb End of Live Planning discussed including [...] Nicolas Cardenas MD documented in this encounter [facility] 07-15-2021 Miscellaneous Notes Yesenia, Admissions staff member at [facility] calling to state patient's son Jhonny has reached out to them to request patient possibly be admitted into their memory care unit due to cognition concerns. Yesenia is requesting notes from patient's last OV be faxed to them at [phone]. This nurse contacted son Jhonny to verify the request and he confirmed it was ok to share requested information. Information faxed as requested. Karen Matias RN documented in this encounter [facility] 09-16-2018 History of Past i llness [...] of this encounter (statuses as of 07/15/2021) [facility] History of Past illness Narrative* Problem [...] of this encounter (statuses as of 09/29/2021) [facility] History of Past illness Narrative* Problem [...] of this encounter (statuses as of 10/23/2021) [facility] History of Past illness Narrative* Problem [...] of this encounter (statuses as of 12/11/2021) [facility] History of Past illness Narrative* Problem [...] of this encounter (statuses as of 06/05/2022) [facility] Author Abhinav Leigh [facility] Note Date/Time October 29, 2024 11 :[address] [place] [address] System Medical Records Department [address] [place] [address] Emergency Department Summary 10/29/24 MR#: [id number] Acct: [id number] Name: KEL DILLARD Rep #:[id number] : 1940 84 From: Abhinav Leigh MD PCP: Dr. David Miramontes MD Status:R EG ER Location: ED HPI History of Present Illness HPI Narrative: 84-year-old male history of dementia from a local extended-care facility. Patient has frequent falls was seen 2 days ago for falls and a head injury. He sent him in today because I believe he has had additional falls and they were concerned about his left wrist. They did an x-ray at their facility it is questionable if this is degenerative arthritis or an avulsion fracture. Patientdenies any wrist pain or complaint. Chief Complaint: Upper Extremity Injury Informant: patient Occured/Mechanism Mechanism/Context: Yes injury and Yes blunt trauma Onset/Context/Timing Current Severity: Mild Maximum Severity: Mild Narrative Narrative: 84-year-old male with dementia who extended-care facility frequent falls sent infor possible wrist fracture versus degenerative arthritis. Patient really denies any significant plain of the left wrist. Prior similar symptoms: No Recent Illness/Hospitalization: No PFSH PFS Medical History Alzheimers disease Former smoker Dementia Adult failure to thrive Chronic anticoagulation History of atrial fibrillation Fall Sick sinus syndrome Bradycardia Sinus pause SUZAN on CPAP (11/07/18) Hematuria Chronic midline low back pain without sciatica Multiple gastric ulcers Essential tremor Mild memory disturbance Benign neoplasm of colon Chronic rhinitis BPH (benign prostatic hyperplasia) Atrial fibrillation Essential (primary) hypertension Home Medications ?Medication ?Instructions ?Recorded ?Last Taken ?Type sennosides 8.6 mg-docusate sodium 2 tab PO BID #180 ta bs 02/26/22 Unknown Rx 50 mg tablet (Stool Softener-Stimulant Laxative) cimetidine 200 mg tablet 200 mg PO DAILY #90 tabs Unknown Rx aluminum-mag hydroxide-simethicone 15 ml PO Q4H PRN Unknown History 200 mg-200 mg-20 mg/5 mL oral susp benzocaine 20 %-menthol 0.1 %-zinc ea mucous membrane 07/08/23 Unknown History chloride 0.15 % mucosal gel (Orajel 3X Mouth Sores) magnesium hydroxide 400 mg/5 mL 30 ml PO DAILY PRN 11/22 Unknown History oral suspension memantine 5 mg tablet 5 mg PO BID 07/08/23 Unknown History terazosin 5 mg capsule 5 mg PO QHS 07/08/23 Unknown History quetiapine 25 mg tablet (Seroquel) 75 mg (3 x 25 mg) P O DAILY 3 11/08/23 Unknown Rx months #270 tabs furosemide 40 mg tablet 40 mg PO DAILY #90 tabs 08/23 Unknown Rx finasteride 5 mg tablet 5 mg PO QHS BPH #90 tabs 05/23 Unknown Rx sertraline 25 mg tablet (Zoloft) 25 mg PO QDAY #90 tab s 05/05/24 Unknown Rx potassium chloride 10 mEq 10 meq PO DAILY #90 tabs Unknown Rx tablet,extended release apixaban 5 mg tablet (Eliquis) 5 mg PO BID #180 tabs 0 08/14/24 Unknown Rx Allergy/AdvReac Type Severity Reaction Status Date / Time No Known Allergies Allergy Verified 10/29/24 09:55 Family History Father Heart disease Brother Heart disease Surgical History Presence of cardiac pacemaker (11/18/18) History of tonsillectomy History of inguinal hernia repair Social History Smoking Status: Former smoker how long ago did patient quit smokin years ago alcohol intake: never substance use type: does not use caffeine: No ROS ROS ED ROS Narrative Patient denies any complaints.Limited informant due to his dementia. Review of Systems ROS Unobtainable: due to mental status Constitutional Constitutional ED: Denies chills or fever(s) Eyes Eyes: Denies blurry vision ENT ENT ED: Denies ear pain Cardiovascular Cardiovascular: Denies chest pain Respiratory/Chest Respiratory/Chest: Denies cough Gastrointestinal Gastrointestinal: Denies abdominal pain Musculoskeletal Musculoskeletal: Denies back pain Integumentary Denies abscess Neurologic Neurologic: Denies headache(s) Endocrine Endocrinology: Denies cold intolerance Hematologic/Lymphatic Hematologic/Lymphatic: Denies easy bleeding Allergic/Immunologic Allergic/Immunologic ED: Denies mouth swelling EXAM Physical Exam Narrative Exam Narrative: 84-year-old male sitting upright in bed. Vital signs are stable afebrile. Pulse ox 100% on room air no hypoxia. He is in no distress. Currently there isno one with him. He is awake and alert. HEENT exam pupils round reactive lightextra motions are intact. He has significant bruising on the right side of his face and forehead from recent falls. That was evaluated 2 days ago. Neck nontender. Trachea midline. Back nontender. Spine nontender. Lungs clear to auscultation bilaterally. Heart rate about 60 no murmur. Chest wall and ribs nontender. Abdomen soft nontender. No peritoneal signs. Pelvic girdle intact. He can flex extend at both hips and knees and ankles. There is no tenderness at either hip knee or ankle. He does have dressings on his lower extremities. Dorsi plantarflexion is intact. Upper extremities shoulders elbows are nontender he can flex extend at both shoulders and elbows and wrist. Minimal swelling of his left wrist and hand. 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 There is no significant tenderness to his hand or his wrist. He has multiple areas of bruising from falls on his upper and lower extremities. Neurologicallyhe is awake is alert he answers questions. He does have dementia and a lot of times his answers are not accurate. But he does talk and respond to you carrieson a conversation. Const Vital Signs: 10/29/24 09:52 Temperature 98.1 F Temperature Source Oral Pulse Rate 60 Respiratory Rate 16 Blood Pressure 117/65 Blood Pressure Mean 82 Pulse Ox 100 Oxygen Delivery Method Room Air Positive well nourished and well developed; Negative for cachectic, contracturesor unkempt General Appearance ED: well developed and NAD; Negative for unkempt, cachectic, contractures, cyanotic or diaphoretic Nutritional Appearance: Negative for cachectic HEENT Reports moist mucous membranes HEENT Narrative: Bruising on his left forehead and face. From a recent fall. trauma and tenderness Eyes PERRL and EOMs intact bilaterally Neck full ROM and supple Chest Wall inspection of chest normal and palpation of chest normal Resp normal respiratory effort and clear to auscultation bilaterally Cardio regular rate, regular rhythm, S1 normal heart sound, S2 normal heart sound and no murmurs GI non-tender, non-distended and no masses Auscultation: normoactive bowel sounds Palpation: soft; Negative for tender, guarding or rebound tenderness present Back/Spine no CVA tenderness General Back: Negative for CVA tenderness Cervical Spine: Negative for cervical spine tenderness Thoracic Spine / Upper Back: Negative for thoracic spinal tenderness Lumbar Spine / Lower Back: Negative for lumbar spinal tenderness Extremity full ROM; Negative for normal to inspection Extremity Narrative: Dressings on both lower extremities below the knees to his ankles. He is getting bruising on different areas of his upper and lower extremities. There is minimal swelling of his left wrist. He is not specifically tender he can flex extend at both wrist and open and close both hands. General Extremety ED: Yes edema General Extremity: edema Neuro No oriented x3, CN's II-XII intact bilaterally, moves all extremities and no focal motor deficits Sensorium / Orientation: alert and oriented to person; Negative for oriented to place or oriented to time Motor Exam: strength 5/5 throughout Psych mental status grossly normal Appearance: Negative for unkempt Skin Lesions: no lesions Rashes: no rashes Trauma: no lacerations or abrasions MDM MDM MDM Narrative Medical decision making narrative: 84-year-old male fell 2 days ago at the half-way was evaluated at that time for head injury CAT scan at that time was negative. They felt he was having pain in his wrist and hand they did x-rays and are questioning either an avulsion fracture of his left hand versus just degenerative arthritis they had no one there to truly evaluate the x-rays or splint the patient so they sent himin for further evaluation. I did speak to a nurse at the extended-care facility. No other complaints today has not been ill has not had a fever. Patient himself denies any complaints. Repeat exam is unchanged at 11:26 AM.. Patient will be discharged back to extended-care facility. we will make sure they know that he does not have any fractures of his left hand or wrist. He does not need splinted. History & Record Review Discussion w/independent historian: Patient Additional record(s) reviewed:: Prior inpatient record, Prior outpatient record,Prior ED visit and Prior labs Radiography Diagnostic Testing: Left hand x-ray shows no acute process 3 views interpreted by myself and the radiologist. There is Significant arthritis at the base of the thumb and the carpal bones. No acute fracture. Interpreted both by myself and the radiologist. Wrist x-ray, 3 views, interpreted again by the radiologist and myself shows arthritis but no acute fracture. Discharge Plan Triage Chief Complaint: Upper Extremity Injury ED Provider: Abhinav Leigh Dx/Rx/DC Orders Clinical Impression: Hand swelling, Osteoarthritis, History of fall Instructions: ED Osteoarthritis Prescriptions: No Action terazosin 5 mg capsule 5 mg PO QHS magnesium hydroxide 400 mg/5 mL suspension 30 ml PO DAILY PRN alum-mag hydroxide-simeth 200-200-20 mg/5 mL suspension 15 ml PO Q4H PRN Rx Instructions: 1 and 3 hours after meals and at bedtime Orajel 3X Mouth Sores 20-0.1-0.15 % gel mucous membrane memantine 5 mg tablet 5 mg PO BID sennosides-docusate sodium [Stool Softener-Stimulant Laxat] 8.6-50 mg tablet 2 tab PO BID Qty: 180 3RF cimetidine 200 mg tablet 200 mg PO DAILY Qty: 90 3RF quetiapine [Seroquel] 25 mg tablet 75 mg PO DAILY 90 Days Qty: 270 3RF Rx Instructions: 1 tab a.m. and 2 tabs p.m. furosemide 40 mg tablet 40 mg PO DAILY Qty: 90 3RF finasteride 5 mg tablet 5 mg PO QHS Qty: 90 3RF sertraline [Zoloft] 25 mg tablet 25 mg PO QDAY Qty: 90 3RF potassium chloride 10 mEq tablet extended release 10 meq PO DAILY Qty: 90 3RF Eliquis 5 mg tablet 5 mg PO BID Qty: 180 3RF Primary Care Provider: David Miramontes Referrals: David Miramontes MD [Primary Care Provider] - As Needed Activity Restrictions/Additional Instructions: Follow-up with your doctor as needed. Ice to his wrist and hand There is no broken bone in his wrist or hand. This is all from arthritis. Print Language: Taiwanese Disposition Disposition: Home, Self Care What to do if you have Problems For any increased pain, shortness of breath, bleeding, nausea or vomiting, chestpain, or any unexpected problems, contact your Primary Care Provider. Call [facility] ([phone]) or report to the closest Emergency Room. Call 911 if necessary. 10/29/24 1126 <Electronically signed by Abhinav Leigh MD> Cosigner Signature (if applicable): CC: Dr. 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) [facility] Diagnosis Onset Date Resolution Status Adult failure to thrive acut e Chronic anticoagulation acut e Fall acute History of atrial fibrillation acute [facility] Work Phone: Evaluation noteNo assessment information available [facility] Work Phone: Evaluation note* Diagnosis Gross hematuria- [facility] Instructions The CT scan showed no broken bones or internal bleeding. Ice and take Tylenol every [address] Work Phone: Hospital Discharge instructionsAdditional Instructions Follow-up with your doctor as needed. Ice to his wrist and hand There is no broken bone in his wrist or hand. This is all from arthritis.[facility] Work Phone: Reason for referral (narrative)No reason for referral information availableWooSum[facility] Work Phone: Advance Directives No Advanced Directives Records FoundDocuments on File Type Date Recorded Patient Communications Intern Expl anation Advance Directive(s) 04/29/2021 2:28 PM Advance Directive(s) 09/08/2016 1:42 PM Advance Directive(s) 08/31/2016 10:18 AM Advance Directive(s) 04/09/2016 12:30 PM Advance Directive(s) 04/06/2016 10:07 AM Advance Directive(s) 10/09/2011 11:10 AM Advance Directive Response Recorded Date/ Time Advance Directives No October 10:42am Living Will No October 20 2 8:26pm Power of Warehouse Administrator No October 20 8:26pm Advance Directive Response Recorded Date/ Time Advance Directives No October 10:42am Living Will No October 21 2 1:16am Power of Warehouse Administrator No October 21 1:16am Documents on File Type Date Recorded Patient Communications Intern Expl anation Advance Directive(s) 04/29/2021 2:28 PM Advance Directive(s) 10/09/2011 11:10 AM Advance Directive Response Recorded Date/ Time Advance Directives No April 02, 2022 2:41pm Living Will No April 02 2:41pm Power of Warehouse Administrator No April 02, 2022 2:41pm Advance Directive Response Recorded Date/ Time Advance Directives No April 02, 2022 3:41pm Living Will No April 02 3:41pm Power of Warehouse Administrator No April 02, 2022 3:41pm Advance Directive Response Recorded Date/ Time Advance Directives No December 02, 2022 9:40am Living Will No December 02 9:40am Power of Warehouse Administrator No December 02 9:40am Advance Directive Response [...] Do you have a Healthcare Power of Warehouse Administrator? Yes October 27, 2024 8:39pm Advance Directive Response Recorded Date/ Time Advance Directives No September 15 1:51pm Do you have a Healthcare Power of Warehouse Administrator? Yes October 27, 2024 8:39pm Do you have a Healthcare Power of Warehouse Administrator? Yes October 29, 2024 9:57am Name of Medical Power of Warehouse Administrator Jhonny Dillard October 29, 2024 9:57am Chief Complaint and Reason for Visit Chief [...] head injury, on thinners October 272024 8:34pm Chief Complaint Admit Date NEW CONCERN July [...] head injury, on thinners October 272024 8:34pm wrist injury October 29, 2024 9: 51am Family History No Family History Records Found [...] or prosecute any alcohol or drug abuse patient.[facility] the event this information is protected by the Federal Confidentiality of Alcohol and Drug Abuse Patient Records regulations: The Federal rules restrict any use of the information to criminally investigate or prosecute any alcohol or drug abuse patient.[facility] the event this information is protected by the Federal Confidentiality of Alcohol and Drug Abuse Patient Records regulations: The Federal rules restrict any use of the information to criminally investigate or prosecute any alcohol or drug abuse patient.[facility] Center[facility] the event this information is protected by the Federal Confidentiality of Alcohol and Drug Abuse Patient Records regulations: The Federal rules restrict any use of the information to criminally investigate or prosecute any alcohol or drug abuse patient.[facility] Center[facility] the event this information is protected by the Federal Confidentiality of Alcohol and Drug Abuse Patient Records regulations: The Federal rules restrict any use of the information to criminally investigate or prosecute any alcohol or drug abuse patient.[facility] Center[facility] the event this information is protected by the Federal Confidentiality of Alcohol and Drug Abuse Patient Records regulations: The Federal rules restrict any use of the information to criminally investigate or prosecute any alcohol or drug abuse patient.[facility] Center[facility] the event this information is protected by the Federal Confidentiality of Alcohol and Drug Abuse Patient Records regulations: The Federal rules restrict any use of the information to criminally investigate or prosecute any alcohol or drug abuse patient.[facility] Reason for Visit (unrecogniz ed section [...] April 19, 2024 End: April 19, 2024 Mariamr Zimmer PRESS SETTER, PRESS SETTER-C Attending Provider Active Start: April 19, 2024 End: April 19, 2024 Team Status: Inactive Member Role Status Dates Dr. David Miramontes MD Primary Care Provider Active Start: May 01, 2024 End: May 01, 2024 Marimar Zimmer PRESS SETTER, PRESS SETTER-C Attending Provider Active Start: May 01, 2024 End: May 01, 2024 Team Status: Inactive Member Role Status Dates Dr. David Miramontes MD Primary Care Provider Active Start: May 11, 2024 End: May 11, 2024 Marimar Zimmer PRESS SETTER, PRESS SETTER-C Attending Provider Active Start: May 11, 2024 [...] 2024 End: May 18, 2024 Marimar Zimmer PRESS SETTER, PRESS SETTER-C Attending Provider Active Start: May 18, 2024 [...] June 23, 2024 End: June 23, 2024 Finisher Hot Strip Relationship Specialty Start Date End Date Nicolas Cardenas MD [address] [facility] [place] [address] PCP - General 02/12/03 Finisher Hot Strip Relationship Specialty Start Date End Date Nicolas Cardenas MD [address] [facility] [place] [address] PCP - General 02/12/03 Finisher Hot Strip Relationship Specialty Start Date End Date Nicolas Cardenas MD [address] [place] [address] PCP - General 02/12/03 Finisher Hot Strip Relationship Specialty Start Date End Date Nicolas Cardenas MD [address] [place] [address] PCP - General 02/12/03 Team Status: Active Member Role Status Dates Dr. Nicolas Cardenas MD Family Provider Active Dr. Nicolas Cardenas MD Primary Care Provider Active Team Status: Inactive Member Role Status Dates Dr. Nicolas Cardenas MD Primary Care Provider Active Marimar Zimmer PRESS SETTER, PRESS SETTER-C Attending Provider Active Team Status: Inactive Member [...] 2024 End: March 13, 2024 Marimar Zimmer PRESS SETTER, PRESS SETTER-C Attending Provider Active Start: March 13, 2024 [...] 2024 End: May 01, 2024 Marimar Zimmer PRESS SETTER, PRESS SETTER-C Attending Provider Active Start: May 01, 2024 End: May 01, 2024 Team Status: Inactive Member Role/Relationship Status Dates Dr. David Miramontes MD Primary Care Provider Active Start: May 11, 2024 End: May 11, 2024 Marimar Zimmer PRESS SETTER, PRESS SETTER-C Attending Provider Active Start: May 11, 2024 [...] 2024 End: May 18, 2024 Marimar Zimmer PRESS SETTER, PRESS SETTER-C Attending Provider Active Start: May 18, 2024 [...] 2024 End: May 30, 2024 Marimar Zimmer PRESS SETTER, PRESS SETTER-C Attending Provider Active Start: May 30, 2024 [...] 2024 End: May 18, 2024 Marimar Zimmer PRESS SETTER, PRESS SETTER-C Attending Provider Active Start: May 18, 2024 [...] 2024 End: May 30, 2024 Marimar Zimmer PRESS SETTER, PRESS SETTER-C Attending Provider Active Start: May 30, 2024 [...] Inactive Member Role/Relationship Status Dates Marimar Zimmer PRESS SETTER, PRESS SETTER-C Attending Provider Active Start: July 20, 2024 [...] 2024 End: August 15, 2024 Marimar Zimmer PRESS SETTER, PRESS SETTER-C Attending Provider Active Start: August 15, 2024 [...] End: August 21, 2024 Marimar Zimmer NP, PRESS SETTER-C Attending Provider Active Start: August 21, 2024 [...] 2024 End: August 25, 2024 Marimar Zimmer PRESS SETTER, PRESS SETTER-C Attending Provider Active Start: August 25, 2024 [...] 2024 End: May 30, 2024 Marimar Zimmer PRESS SETTER, PRESS SETTER-C Attending Provider Active Start: May 30, 2024 [...] Status: Inactive Member Role/Relationship Status Dates Dr. Dvaid Miramontes MD Primary Care Provider Active Start: June 23, 2024 End: June 23, 2024 David GARCIA MD Attending Provider Active Start: June 23, 2024 End: June 23, 2024 Team Status: Inactive Member Role/Relationship Status Dates Dr. David Miramontes MD Primary Care Provider Active Start: July 04, 2024 End: July 04, 2024 Marimar Zimmer NP, PRESS SETTER-C Attending Provider Active Start: July 04, 2024 End: July 04, 2024 Team Status: Inactive Member Role/Relationship Status Dates Dr. David Miramontes MD Primary Care Provider Active Start: July 18, 2024 End: July 18, 2024 Dr. David Miramontes MD Attending Provider Active Start: July 18, 2024 End: July 18, 2024 Team Status: Inactive Member Role/Relationship Status Dates Marimar Zimmer PRESS SETTER, PRESS SETTER-C Attending Provider Active Start: July 20, 2024 [...] 2024 End: August 15, 2024 Marimar Zimmer PRESS SETTER, PRESS SETTER-C Attending Provider Active Start: August 15, 2024 [...] 2024 End: August 21, 2024 Marimar Zimmer PRESS SETTER, PRESS SETTER-C Attending Provider Active Start: August 21, 2024 End: August 21, 2024 Team Status: Inactive Member Role/Relationship Status Dates Dr. David Miramontes MD Primary Care Provider Active Start: August 25, 2024 End: August 25, 2024 Marimar Zimmer PRESS SETTER, PRESS SETTER-C Attending Provider Active Start: August 25, 2024 [...] 2024 End: July 04, 2024 Marimar Zimmer PRESS SETTER, PRESS SETTER-C Attending Provider Active Start: July 04, 2024 End: July 04, 2024 Team Status: Inactive Member Role/Relationship Status Dates Dr. David Miramontes MD Primary Care Provider Active Start: July 18, 2024 End: July 18, 2024 Dr. David Miramontes MD Attending Provider Active Start: July 18, 2024 End: July 18, 2024 Team Status: Inactive Member Role/Relationship Status Dates Marimar Zimmer PRESS SETTER, PRESS SETTER-C Attending Provider Active Start: July 20, 2024 [...] 2024 End: August 15, 2024 Marimar Zimmer PRESS SETTER, PRESS SETTER-C Attending Provider Active Start: August 15, 2024 [...] 2024 End: August 21, 2024 Marimar Zimmer PRESS SETTER, PRESS SETTER-C Attending Provider Active Start: August 21, 2024 [...] 2024 End: August 25, 2024 Marimar Zimmer PRESS SETTER, PRESS SETTER-C Attending Provider Active Start: August 25, 2024 [...] 2024 End: September 19, 2024 Marimar Zimmer PRESS SETTER, PRESS SETTER-C Attending Provider Active Start: September 19, 2024 [...] 2024 End: September 25, 2024 Marimar Zimmer PRESS SETTER, PRESS SETTER-C Attending Provider Active Start: September 25, 2024 End: September 25, 2024 Team Status: Inactive Member Role/Relationship Status Dates Dr. David Miramontes MD Primary Care Provider Active Start: July 04, 2024 End: July 04, 2024 Marimar Zimmer PRESS SETTER, PRESS SETTER-C Attending Provider Active Start: July 04, 2024 End: July 04, 2024 Team Status: Inactive Member Role/Relationship Status Dates Dr. David Miramontes MD Primary Care Provider Active Start: July 18, 2024 End: July 18, 2024 Dr. David Miramontes MD Attending Provider Active Start: July 18, 2024 End: July 18, 2024 Team Status: Inactive Member Role/Relationship Status Dates Marimar Zimmer PRESS SETTER, PRESS SETTER-C Attending Provider Active Start: July 20, 2024 [...] 2024 End: August 15, 2024 Marimar Zimmer PRESS SETTER, PRESS SETTER-C Attending Provider Active Start: August 15, 2024 [...] 2024 End: August 21, 2024 Marimar Zimmer PRESS SETTER, PRESS SETTER-C Attending Provider Active Start: August 21, 2024 [...] End: August 25, 2024 Marimar Zimmer NP, PRESS SETTER-C Attending Provider Active Start: August 25, 2024 [...] End: September 19, 2024 Marimar Zimmer NP, PRESS SETTER-C Attending Provider Active Start: September 19, 2024 End: September 19, 2024 Team Status: Inactive Member Role/Relationship Status Dates Dr. David Miramontes MD Primary Care Provider Active Start: September 25, 2024 End: September 25, 2024 Marimar Zimmer NP, PRESS SETTER-C Attending Provider Active Start: September 25, 2024 End: September 25, 2024 Team Status: Inactive Member Role/Relationship Status Dates Dr. David Miramontes MD Primary Care Provider Active Start: September 29, 2024 End: September 29, 2024 Dasia Barrett PRESS SETTER-C Attending Provider Active Start: September 29, 2024 End: September 29, 2024 Team Status: Inactive Member Role/Relationship Status Dates Dr. David Miramontes MD Primary Care Provider Active Start: October 27, 2024 End: October 27, 2024 Dr. Abhinav Leigh MD Emergency Provider Active S tart: October 27, 2024 End: October 27, 2024 Team Status: Inactive Member Role/Relationship Status Dates Dr. David Miramontes MD Primary Care Provider Active Start: October 29, 2024 End: October 29, 2024 Dr. Abhinav Leigh MD Emergency Provider Active S tart: October 29, 2024 End: October 29, 2024 Goals (unrecognized section and content) [...] section and content) DATE CREATED AUTHOR 06/08/2022 [facility] DATE CREATED AUTHOR AUTHOR'S ORGANIZ ATION 07/17/2024 [facility] DATE CREATED AUTHOR AUTHOR'S ORGANIZ ATION 10/31/2024 [facility] FOR RECORDS PERTAINING TO PATIENTS WHO [...] BE BASED ON THE PRIMARY CLINICAL RECORDS. [employer] [facility]. provides no warranty or guarantee of the accuracy or completeness of information in this document.
--- NOTE | 2024-11-02 05:20 | ED.RN ---
report called to Parviz Joshi.
[2024-11-02 05:22] VITALS: BP 154/80; PULSE 67; RESP 18; TEMP 36.8; O2SAT 98
[2024-11-02 05:29] VITALS: RESP 18
== END 2024-11-02 06:54 | disposition home or self-care (01) ==
PROVIDERS: Emergency Provider Emergency Medicine; PCP Internal Medicine; Visit Provider Emergency Medicine
DX: S09.90XA Unspecified injury of head, initial encounter (principal); F03.90 Unspecified dementia, unspecified severity, without behavioral disturbance, psychotic disturbance, mood disturbance, and anxiety; W18.30XA Fall on same level, unspecified, initial encounter; I10 Essential (primary) hypertension; Z79.01 Long term (current) use of anticoagulants; Z87.891 Personal history of nicotine dependence; Z95.0 Presence of cardiac pacemaker; G47.33 Obstructive sleep apnea (adult) (pediatric); Z99.89 Dependence on other enabling machines and devices; R29.6 Repeated falls
CPT/HCPCS: 70450; 72125; 99283

== ENCOUNTER → 2024-11-07 | Outpatient (REF) | payer MEDICARE, SELFPAY ==
--- OUTSIDE RECORDS SUMMARY | 2024-11-07 04:12 | XMS RPT_ITS | CCD ---
Author Organization [facility] Care Team Providers [employer] Teacher Name Role Phone Nicolas Cardenas MD Primary Care Provider Dr. Nicolas Cardenas Primary Care Provider Dr. Abhinav Leigh Emergency Provider Dr. Robinson Nguyen Admit Provider Dr. Robinson Nguyen Attending Provider Dr. Robinson Nguyen Other Provider Dr. Kevin Nichole Attending Provider Dr. Kevin Nichole Other Provider Dr. Desire Leung Attending Provider Nicolas Cardenas MD Primary Care Provider Mesha CASE BRIEFER, CASE BRIEFER-C Marimar Attending Provider Dr. Nicolas Justin Primary Care Provider Mesha CASE BRIEFER, CASE BRIEFER-C Marimar Attending Provider Dr. David Nina Attending Provider Unavailable Primary Care Provider UnavailNICOLAS Blankenship Referring Unavailable NICOLAS CARDENAS Attending Unavailable NICOLAS CARDENAS Primary Care Unavailable Dr. Nicolas Cardenas Primary Care Provider Mesha CASE BRIEFER, CASE BRIEFER-C Marimar Attending Provider Dr. David Nina Attending Provider Dr. Nicolas Cardenas Primary Care Provider Mesha CASE BRIEFER, CASE BRIEFER-C Marimar Attending Provider Dr. Frandy Ninaongbe Attending Provider Dr. Nicolas Cardenas Primary Care Provider Mesha CASE BRIEFER, CASE BRIEFER-C Marimar Attending Provider Dr. David Miramontes Attending Provider [phone] Dr. David Miramontes MD Primary Care Provider Dr. Edson Quinn MD Attending Provider Dr. Edson Quinn MD Referring Provider [phone] Dr. David Miramontes MD Attending Provider Isidro Can Attending Provider Mesha CASE BRIEFER-CMarimar Attending Provider David Miramontes MD Attending Provider [...] David Miramontes MD Primary Care Provider Mesha CASE BRIEFER-CMarimar Attending Provider Unavailable Primary Care Provider Unavailabl DIANA Sampson Attending Unava ilable SELF Referring Unavailable Dr. David Miramontes MD Primary Care Provider Mesha CASE BRIEFER-CMarimar Attending Provider David Miramontes MD Attending Provider Unavailapril Miramontes MD, Dr. Win Attending Provider [phone] David Miramontes MD Referring Provider Unavailapril Miramontes MD, Dr. Win Primary Care Provider Tickton CASE BRIEFER-C, Marimar Attending Provider Kai ALAMO, Dr. Sandhu Attending Provider [phone] Kai ALAMO, Dr. Sandhu Referring Provider Kulwinder ALAMO, Dr. Win Primary Care Provider David Miramontes MD Attending Provider Unavaila ble Tickton CASE BRIEFER-C, Marimar Attending Provider Kulwinder ALAMO, Dr. Win Attending Provider [phone] Kai ALAMO, Dr. Sandhu Attending Provider [phone] Kai ALAMO, Dr. Sandhu Referring Provider [phone] Kulwinder ALAMO, Dr. Win Primary Care Provider David Miramontes MD Attending Provider Unavaila ble Tickton CASE BRIEFER-C, Marimar Attending Provider Kulwinder ALAMO, Dr. Win Attending Provider [phone] Kulwinder ALAMO, Dr. Win Primary Care Provider David Miramontes MD Attending Provider Unavaila ble Ungerer CASE BRIEFER-C, Dasia Attending Provider Reese ALAMO, Dr. La Emergency Provider Kulwinder ALAMO, Dr. Win Primary Care Provider Tickebenezer CASE BRIEFER-C, Marimar Attending Provider Dr. Abhinav Leigh MD Attending Provider Oleghe, Efewongbe Primary Care Unavailable Oleghe OLS Efewongbe Attending Unavailabl e Oleghe, Efewongbe Primary Care Unavailable Oleghe OLS, Efewongbe Attending Unavailabl e Oleghe, Efewongbe Primary Care Unavailable Oleghe, Efewongbe Referring Unavailable Oleghe Efewongbe Attending Unavailable Oleghe, Efewongbe Primary Care Unavailable Abhinav Leigh Attending Unavailable Oleghe, Efewongbe Primary Care Unavailable Tickton CASE BRIEFERMarimar Attending Unavailable Oleghe, Efewongbe Primary Care Unavailable Kai, Whitehouse Referring Unavailable Kai, Whitehouse Attending Unavailable Oleghe, Efewongbe Primary Care Unavailable Fatouton CASE BRIEFER, Marimar Attending Unavailable Oleghe, Efewongbe Primary Care [...] e Oleghe OLS, Efewongbe Attending Unavailabl e Oleghe [...] Care Unavailable Kai, Edson Attending Unavailable Kai, Whitehouse Referring Unavailable Oleghe, Efewongbe Primary Care Unavailable Oleghe OLS, Efewongbe Attending Unavailabl e Oleghe, Efewongbe Primary Care Unavailable Abhinav Leigh Attending Unavailable Oleghe, Efewongbe Primary Care Unavailable Tickton CASE BRIEFER, Marimar Attending Unavailable Kai, Whitehouse Referring Unavailable Kai, Edson Attending Unavailable Oleghe, Efewongbe Primary Care Unavailable Oleghe, Efewongbe Primary Care Unavailable Kai, Whitehouse Attending Unavailable Kai, Edson Referring Unavailable Oleghe, Efewongbe Primary Care Unavailable Oleghe, Efewongbe Attending Unavailable Oleghe, Efewongbe Primary Care Unavailable Oleghe, Efewongbe Attending Unavailable Oleghe, Efewongbe Primary Care Unavailable Tickton CASE BRIEFER, Marimar Attending Unavailable Oleghe, Efewongbe Primary Care Unavailable Tickton CASE BRIEFER, Marimar Attending Unavailable Oleghe, Efewongbe Primary Care Unavailable Dasia Barrett Attending Unavailable Oleghe, Efewongbe Primary Care Unavailable Kai, Whitehouse Referring Unavailable Kai, Whitehouse Attending Unavailable Oleghe, Efewongbe Primary Care Unavailable Tickton CASE BRIEFER, Marimar Attending Unavailable Oleghe, Efewongbe Primary Care Unavailable Oleghe, Efewongbe Attending Unavailable Oleghe, Efewongbe Primary Care Unavailable Tickton CASE BRIEFER, Marimar Attending Unavailable Oleghe, Efewongbe Primary Care Unavailable Tickton CASE BRIEFER, Marimar Attending Unavailable Oleghe, Efewongbe Primary Care Unavailable Tickton CASE BRIEFER, Marimar Attending Unavailable Oleghe, Efewongbe Primary Care Unavailable Tickton CASE BRIEFER, Marimar Attending Unavailable Oleghe, Efewongbe Primary Care Unavailable Tickton CASE BRIEFER, Marimar Attending Unavailable Oleghe, Efewongbe Primary Care Unavailable Isidro Can Attending Unavailable Oleghe, Efewongbe Primary Care Unavailable Tickton CASE BRIEFER, Marimar Attending Unavailable Oleghe, Efewongbe Primary Care Unavailable Oleghe, Efewongbe Attending Unavailable Oleghe, Efewongbe Primary Care Unavailable Tickton CASE BRIEFER, Marimar Attending Unavailable Oleghe, Efewongbe Primary Care Unavailable Tickton CASE BRIEFER, Marimar Attending Unavailable Oleghe, Efewongbe Primary Care [...] Unavailabl e Oleghe, Efewongbe Primary Care Unavailable Kulwinder David Attending Unavailable Kulwinder David Primary Care Unavailable Kyung Wright Attending Unavailable JoesphamnaDavid Becerra Attending Unavailcheryl starks Kulwinder David Primary Care Unavailable Kulwinder David Primary Care Unavailable Kulwinder Mayra GARCIAwaynefeliciaingris Attending Unavailcheryl e Medications Current Medications Medication Drug Class(es) Dates Sig (Normalized) Sig (Original) aluminum hydroxide 40 mg/ml / magnesium hydroxide 40 mg/ml / simethicone 4 mg/ml oral suspension (19 sources) Start: 07-08-2023 Alum-Mag Hydroxide-Simeth 200-200-20 mg/5 mL suspension Active 15 mL PO Q4H as needed July 08, 2023 12:00am 1 and 3 hours after meals and at bedtime Aspirin (1 source) Platelet Aggregation Inhibitor, Nonsteroidal Anti-inflammatory Drug Start: 10-20-2021 aspirin Active October 20, 2021 12:00am benzocaine 0.2 mg/mg / menthol 0.001 mg/mg / zinc chloride 0.0015 mg/mg oral gel (19 sources) Standardized Chemical Allergen Start: 07-08-2023 Benzocaine-Mentho [...] daily. docusate sodium 50 mg / sennosides, prison 8.6 mg oral tablet (20 sources) Start: 10-22-2021 End: 02-26-2022 Sennosides-Docusate Sodium (Stool Softener-Stimulant Laxat) 8.6-50 mg tablet Active 2 {tbl} PO TWICE A DAY 180 February 26, 2022 5:15pm Magnesium Hydroxide (19 sources) Start: 07-08-2023 take 1 mL by [...] 2023 5:03pm sertraline 25 mg oral tablet (19 sources) Serotonin Reuptake Inhibitor Start: 05-05-2024 take [...] capsule (20 sources) Start: 9 End: 4 Traskwood-3 Fatty Acids-Fish Oil (Fish Oil) 360-1,200 mg [...] hydrochloride 5 mg oral tablet (20 sources) N-sdsvno-T-aspartat e Receptor Antagonist Start: 3 End: 4 [...] Discontinued 1 NMA TOPICAL TWICE A DAY February 26, 2022 5:14pm July 08, 2023 11:50am Please contact the information source for Protocol details. Start: 02-26-2022 Menthol-Zinc O xide (Calmoseptine) 0.44-20.6 % ointment Active 1 APPLIC TOPICAL TWICE A DAY February 26, 2022 5:14pm Start: 02-26-2022 Menthol-Zinc O xide (Calmoseptine) 0.44-20.6 % ointment Active 1 APPLIC TOPICAL TWICE A DAY February 26, 2022 4:14pm Start: 10-22-2021 End: [...] A DAY 0 October 22, 2021 12:00am Traskwood-3 Fatty Acids (Fish Oil Concentrate) 1,000 mg capsule (20 sources) Start: 08-23-2018 End: 11-08-2018 take 1 capsule by mouth once daily [place]wood-3 Fatty Acids (Fish Oil Concentrate) 1,000 mg capsule Discontinued 1000 mg PO DAILY August 23, 2018 12:00am November 08, 2018 1:59pm Start: 08-23-2018 End: 11-08-2018 take 1 capsule by mouth once daily Traskwood-3 Fatty Acids (Fish Oil Concentrate) 1,000 mg capsule Discontinued 1000 MG PO DAILY August 22, 2018 11:00pm November 08, 2018 12:59pm Start: 08-23-2018 End: 11-08-2018 take 1 capsule by mouth once daily Traskwood-3 Fatty Acids (Fish Oil Concentrate) 1,000 mg [...] Comment on above: Take 1 capsule by [facility] once daily. Perflutren Lipid Microspheres (Definity) 1.1 [...] urinary tract symptoms] Onset: 03-10-2005 06-27-2015 Chronic Osteoarthritis (2 sources) Osteoarthritis; Translations: [Unspecified osteoarthritis, unspecified site] 10-29-2024 Chronic Other aftercare (20 sources) Long-term current use of anticoagulant; Translations: [custodial (current) use of anticoagulants] 10-30-2021 Episodic Other aftercare (2 sources) custodial (current) use of anticoagulants; Translations: [Long-term (current) [...] circulatory system] Episodic Other connective tissue disease (2 sources) Swelling of hand; Translations: [Other specified soft tissue disorders] 10-29-2024 Episodic Other connective tissue disease (1 source) Other specified soft tissue disorders; Translations: [Other specified soft tissue disorders] Onset: 11-02-2024 Episodic Other gastrointestinal disorders (2 sources) Dysphagia, oral phase; Translations: [Dysphagia, oral phase] Onset: 06-21-2024 Episodic Other hereditary and degenerative nervous system conditions (8 sources) Essential tremor; Translations: [Essential tremor] Onset: 05-23-2013 05-23-2013 Chronic Other hereditary and degenerative nervous system conditions (2 sources) Essential tremor; Translations: [Essential tremor] Onset: 06-21-2024 Chronic Other injuries and conditions due to external causes (3 sources) Closed injury of head; Translations: [Unspecified injury of head, initial encounter] 10-27-2024 Episodic Other injuries and conditions due to external causes (2 sources) History of fall; Translations: [History of falling] 10-29-2024 Episodic Other injuries and conditions due to external causes (1 source) Injury of head; Translations: [Unspecified injury of head, initial encounter] 11-02-2024 Episodic Other nutritional; endocrine; and metabolic disorders [...] remission] Onset: 04-11-2024 Chronic Superficial injury; contusion (4 sources) Hematoma of scalp; Translations: [Contusion of scalp, initial encounter] Onset: 11-01-2024 10-27-2024 Episodic Unclassified (2 sources) Dementia in [...] Translations: [Encounter for immunization] Onset: 04-11-2024 Episodic Malaise and fatigue (1 source) Other fatigue; Translations: [Other fatigue] Onset: 08-07-2024 Episodic Other and unspecified benign neoplasm (7 [...] Test Name Value Interpretation Reference Range Facility Brain/Head without Contrasto n 11-02-2024 Brain/Head without Contrast [facility] Services [address] [place], [place] [id number] Brain/Head without Contrast MR#: [id number] Acct: [id number] Name: KEL DILLARD Rep #: [id number] : 1940 M 84 From: Grabiel ellis MD PCP: Dr. David Miramontes MD Status: REG ER Study: Brain/Head without Contrast Date of Exam: 06/23 Exam# [id number] Ordering Dr: Abhinav Leigh MD PROCEDURE: BRAIN/HEAD WITHOUT CONTRAST 11/02/2024 REASON FOR EXAM: HEAD TRAUMA ON THINNERS TECHNIQUE: Procedure Code: CTBR Modality: CT Procedure: BRAIN/HEAD WITHOUT CONTRAST Coronal and Sagittal reconstruction series were provided. One or more dose reduction techniques were used (e.g., Automated exposure control, adjustment of the mA and/or kV according to patient size, use of iterative reconstruction technique. RADIATION DOSE SUMMARY: CTDlvol: 28.95 mGy DLP: 652 mGycm COMPARISON: 10/27/2024. FINDINGS: Unchanged right frontal acute subgaleal soft tissue hematoma. Mild diffuse cortical atrophy, commensurate with the patient's age. Scattered hypodense foci in the periventricular and subcortical white matter suggestive of chronic ischemic white matter disease. Normal size of the ventricles and extra-axial spaces for the patient's age. Normal basal ganglia and thalami. Normal brainstem. Normal cerebellum. There is no demonstrated extra-axial, intraparenchymal, or intraventricular hemorrhage. There are no findings of an acute ischemic infarction. Normal calvarium. There is no demonstrated fracture. Normal visualized paranasal sinuses. CT/Brain/Head without Contrast IMPRESSION: Unchanged right frontal acute subgaleal soft tissue hematoma. No CT evidence of an acute traumatic brain abnormality. Reading Location: [place] [address] CC: Dr. David Miramontes MD; Dr. Abhinav Leigh MD Industrial Renderer: Signed Normal [facility] Emergency Department Summary on 11-02-2024 Emergency Department Summary [facility] Medical Records Department [address] [place] [address] Emergency Department Summary 11/02/24 MR#: [id number] Acct: [id number] Name: KEL DILLARD Rep #: [id number] : 1940 84 From: Abhinav Leigh MD PCP: Dr. David Miramontes MD Status:REG ER Location: ED HPI HPI - Fall History of Present Illness Chief Complaint: Fall Informant: patient and SNF (I spoke to staff at the extended care facility. Unwitnessed fall tonight. Reportedly neck pain even though he is denying that now.) Occured/Mechanism Occurred: Today Mechanism/Context: Yes same level fall Usually ambulates: Walker Pain/Injury Pain Location: head and neck Narrative Narrative: 84-year-old male recently placed on extended care facility. He is currently at [facility]. Tonight they found him in his room on the floor. It was an unwitnessed fall. No idea if he had any LOC. When they went to move him he reportedly had neck pain even though currently has no complaints. I spoke to staff at the correction facility. Patient's been seen at least 3-4 times in the last several weeks for falls. Prior similar symptoms: Yes Recent Illness/Hospitalizat ion: No PFSH [facility] Medical History Alzheimers disease Former smoker Dementia [...] caffeine: No ROS ROS ED ROS Narrative Denies but patient does have dementia. Review of Systems ROS Unobtainable: due to mental status EXAM Physical Exam Narrative Exam Narrative: 84-year-old male sitting upright in bed. Vital signs stable afebrile. Pulse ox 90% on room air no hypoxia. He is in no distress. There is no family present. H EENT exam pupils round reactive to light extremities are intact. Patient had extensive bruising of his forehead and face currently is nontender. He had a prior hematoma in his right forehead on prior visit. There is no dental injury. There is no acute bruising or laceration on his scalp. There is old bruising on his forehead and face. C-spine and trachea nontender. Back and spine nontender. Lungs clear to auscultation bilaterally. Heart regular rhythm rate about 60 no murmur. Chest wall ribs nontender. Abdomen soft nontender. Moving all 4 extremities. Normal storeperson strength. Dorsi plantarflexion intact. He can flex extend at both hips and knees. There is no hip tenderness. No shortening or rotation. Back nontender no bruising. Neurologically is awake (more content not included)... Normal [facility] Spine Cervical without Contr ason 11-02-2024 Spine Cervical without Contras [facility] [address] [place] [address] Spine Cervical without Contras MR#: [id number] Acct: [id number] Name: KEL DILLARD Rep #: [id number] : 1940 M 84 From: Grabiel ellis MD PCP: Dr. David Miramontes MD Status: REG ER Study: Spine Cervical without Contras Date of Exam: 0 11/02/24 Exam# [id number] Ordering Dr: Abhinav Leigh MD PROCEDURE: SPINE CERVICAL WITHOUT CONTRAS 11/02/2024 REASON FOR EXAM: HEAD TRAUMA TECHNIQUE: Procedure Code: CTSPC Modality: CT Procedure: SPINE CERVICAL WITHOUT CONTRAS Coronal and Sagittal reconstruction series were provided. One or more dose reduction techniques were used (e.g., Automated exposure control, adjustment of the mA and/or kV according to patient size, use of iterative reconstruction technique. RADIATION DOSE SUMMARY: CTDlvol: 28.95 mGy DLP: 1518 mGycm COMPARISON: None. FINDINGS: Mild osteopenia. Grade 1 anterolisthesis of C2 on C3. Grade 1 anterolisthesis of C7 on T1. There are diffuse spondylotic changes. Findings are demonstrated to by diffuse disc space narrowing, osteophyte formation and degenerative endplate sclerosis. There is diffuse facet joint arthropathy with secondary bilateral neural foramina narrowing. No fracture or dislocation is seen. No aggressive lytic or blastic bony lesion is noted. CT/Spine Cervical without Contras IMPRESSION: No CT evidence of an acute traumatic abnormality. Reading Location: [place] [address] CC: Dr. David Miramontes MD; Dr. Abhinav Leigh MD Industrial Renderer: Signed Normal [facility] Emergency Department Summary on 10-29-2024 Emergency Department Summary [facility] Medical Records Department [address] [place] [address] Emergency Department Summary 10/29/24 MR#: [id number] Acct: [id number] Name: KEL DILLARD Rep #: [id number] : 1940 84 From: Abhinav Leigh MD [...] HEENT exa (more content not included)... Normal [facility] Hand Min 3 Viewson 5 Hand Min 3 Views [facility] [address] [place], [place] [id number] Hand Min 3 Views MR#: [id number] Acct: [id number] Name: KEL DILLARD Rep #: [id number] : 1940 M 84 From: Sue Martinez MD PCP: Dr. David Miramontes MD Status: REG ER Study: Hand Min 3 Views Date of Exam: 10/29/24 Exam# [id number] Ordering Dr: Abhinav Leigh MD PROCEDURE: HAND MIN 3 VIEWS 10/29/2024 REASON FOR EXAM: FALL TECHNIQUE: Procedure Code: ERENDIRA Modality: DX Procedure: HAND MIN 3 VIEWS Laterality: Left COMPARISON: None. FINDINGS: Bones: No acute bony abnormalities. Joints: Unremarkable. Soft tissues: No soft tissue abnormalities. RAD/Hand Min 3 Views IMPRESSION: No acute osseous abnormalities. Reading Location: [facility] CC: Dr. David Miramontes MD; Dr. Abhinav Leigh MD Industrial Renderer: Signed Normal [facility] Wrist min 3 Viewson 10-30-19 25 Wrist min 3 Views [facility] [address] [place], [place] [address] Wrist min 3 Views MR#: [id number] Acct: [id number] Name: KEL DILLARD Rep #: [id number] : 1940 M 84 From: Sue Martinez MD PCP: Dr. David Miramontes MD Status: REG ER Study: Wrist min 3 Views Date of Exam: 10/29/24 Exam# [id number] Ordering Dr: Abhinav Leigh MD PROCEDURE: WRIST [...] acute osseous abnormalities. Mild arthritis. Reading Location: [facility] CC: Dr. David Miramontes MD; Dr. Abhinav Leigh MD Industrial Renderer: Signed Normal [facility] Brain/Head without Contrasto n 10-27-2024 Brain/Head without Contrast [facility] Services [address] [place] [id number] Brain/Head without Contrast MR#: [id number] Acct: [id number] Name: KEL DILLARD Rep #: [id number] : 1940 84 From: Paulie Mariano MD PCP: Dr. David Miramontes MD Status: REG ER Study: Brain/Head without Contrast Date of Exam: 09/30 11/23 Exam# [id number] Ordering Dr: Ira Abad PROCEDURE: CT BRAIN/HEAD [...] loss and chronic microangiopathic changes. Reading Location: [id number] CC: Dr. David Miramontes MD; ERWIN Phillip Industrial Renderer: Signed Normal [facility] Emergency Department Summary on 10-27-2024 Emergency Department Summary [facility] Medical Records Department [address] [place] [address] Emergency Department Summary 10/27/24 MR#: [id number] Acct: [id number] Name: KEL DILLARD Rep #: [id number] : 1940 84 From: Abhinav Leigh MD [...] which is baseline. He has no complaints. [facility] Medical History Alzheimers disease Former smoker Dementia [...] right frontal (more content not included)... Normal [facility] Gram stainOrdered By: Jarrell Miramontes on 09-25-2024 Microscopic observation Gram stain Nom (Unsp spec) [facility] Anion gap in Serum or Plasma Ordered By: David Miramontes on 09-07-2024 Anion gap [Moles/Vol] 9 mmol/L - [facility] BUN/creatinine ratioOrdered By: David Miramontes on 09-07-2024 Urea nitrogen/Creatinine [Mass ratio] 15.9 mg/mg - [facility] Carbon dioxide, total [Moles /volume] in Central venous bloodOrdered By: David Miramontes on 09-07-2024 CO2 [Moles/Vol] 28.4 mmol/L 21.0-32.0 [facility] Chloride assayOrdered By: Mayra Miramontes on 09-07-2024 Chloride [Moles/Vol] 104 mmol/L 98-108 [facility] Glomerular filtration rate ( GFR) estimation/1.73 sq m using serum, plasma, or whole bOrdered By: David Miramontes on 09-07-2024 GFR/1.73 sq M.predicted among non-blacks MDRD (S/P/Bld) [Vol rate/Area] 72 mL/min/{1.73_m2} >60 [facility] Comment on above: mL/min/1.73m2 CKD-EP I Creatinine Equation (2020) Potassium measurement (mass/ volume)Ordered By: David Miramontes on 09-07-2024 Potassium (Unsp spec) [Mass/Vol] 4.0 mmol/L 3.3-5.1 [facility] Serum creatinine measurement (mass/volume)Ordered By: David Miramontes on 09-07-2024 Creatinine [Mass/Vol] 1.02 mg/dL 0.70-1.20 [facility] Serum glucose measurement (m ass/volume)Ordered By: David Miramontes on 09-07-2024 Glucose [Mass/Vol] 80 mg/dL 70-99 [facility] Serum or plasma calcium siobhan urement (mass/volume)Ordered By: David Miramontes on 09-07-2024 Calcium [Mass/Vol] 9.3 mg/dL 7.6-11.0 [facility] Serum or plasma urea nitroge n measurement (mass/volume)Ordered By: David Miramontes 09-07-2024 Urea nitrogen [Mass/Vol] 16 mg/dL 4-19 [facility] Sodium levelOrdered By: Frandy Miramontes on 09-07-2024 Sodium [Moles/Vol] 141 mmol/L 133-145 [facility] Anion gap in Serum or Plasma Ordered By: David Miramontes on 08-31-2024 Anion gap [Moles/Vol] 10 mmol/L 5-15 [facility] BUN/creatinine ratioOrdered By: David Miramontes on 08-31-2024 Urea nitrogen/Creatinine [Mass ratio] 12.4 mg/mg 10-20 [facility] Carbon dioxide, total [Moles /volume] in Central venous bloodOrdered By: David Miramontes on 08-31-2024 CO2 [Moles/Vol] 26.4 mmol/L 21.0-32.0 [facility] Chloride assayOrdered By: Mayra Miramontes on 08-31-2024 Chloride [Moles/Vol] 103 mmol/L 98-108 [facility] Glomerular filtration rate ( GFR) estimation/1.73 sq m using serum, plasma, or whole bOrdered By: David Miramontes on 08-31-2024 GFR/1.73 sq M.predicted among non-blacks MDRD (S/P/Bld) [Vol rate/Area] 80 mL/min/{1.73_m2} >60 [facility] Comment on above: mL/min/1.73m2 CKD-EP I Creatinine Equation (2020) Potassium measurement (mass/ volume)Ordered By: David Miramontes on 08-31-2024 Potassium (Unsp spec) [Mass/Vol] 4.2 mmol/L 3.3-5.1 [facility] Serum creatinine measurement (mass/volume)Ordered By: David Miramontes on 08-31-2024 Creatinine [Mass/Vol] 0.93 mg/dL 0.70-1.20 [facility] Serum glucose measurement (m ass/volume)Ordered By: David Miramontes on 08-31-2024 Glucose [Mass/Vol] 86 mg/dL 70-99 [facility] Serum or plasma calcium siobhan urement (mass/volume)Ordered By: David Miramontes on 08-31-2024 Calcium [Mass/Vol] 9.4 mg/dL 7.6-11.0 [facility] Serum or plasma urea nitroge n measurement (mass/volume)Ordered By: David Miramontes on 08-31-2024 Urea nitrogen [Mass/Vol] 12 mg/dL 4-19 [facility] Sodium levelOrdered By: Frandy Miramontes on 08-31-2024 Sodium [Moles/Vol] 139 mmol/L 133-145 [facility] Absolute lymphocyte countOrd ered By: David Miramontes on 08-22-2024 Lymphocytes Auto (Unsp spec) [#/Vol] 1.28 10*3/uL 0.83-4.51 [facility] Absolute neutrophil countOrd ered By: David Miramontes on 08-22-2024 Neutrophils (Bld) [#/Vol] 5.0 10*3/uL 2.0-7.7 [facility] Anion gap in Serum or Plasma Ordered By: Frandyfeliciaingris Pinkamnatereza on 08-22-2024 Anion gap [Moles/Vol] 8 mmol/L 5-15 [facility] Automated lymphocyte count a s percentage of total leukocytesOrdered By: Mayrawaynecarleen Joesphamnatereza on 08-22-2024 Lymphocytes/100 WBC Auto (Unsp spec) 17.6 % Low 19-41 [facility] BUN/creatinine ratioOrdered By: David oJesphiman on 08-22-2024 Urea nitrogen/Creatinine [Mass ratio] 13.7 mg/mg 10-20 [facility] Basophil percentageOrdered B y: David Miramontes on 08-22-2024 Basophils/100 WBC (Bld) 0.7 % 0-1 [facility] Bilirubin, totalOrdered By: David Joesphiman on 08-22-2024 Bilirubin [Mass/Vol] 0.31 mg/dL 0.00-1.30 [facility] Carbon dioxide, total [Moles /volume] in Central venous bloodOrdered By: Mayrawaynecarleen Joesphamnatereza on 08-22-2024 CO2 [Moles/Vol] 28.1 mmol/L 21.0-32.0 [facility] Chloride assayOrdered By: Mayra danay Joesphamnatereza on 08-22-2024 Chloride [Moles/Vol] 107 mmol/L 98-108 [facility] Eosinophil percentageOrdered By: Mayrawaynecarleen Joesphamnatereza on 08-22-2024 Eosinophils/100 WBC (Bld) 2.6 % 0-5 [facility] Erythrocyte distribution wid th ratioOrdered By: David Miramontes on 08-22-2024 Erythrocyte distribution width (RBC) [Ratio] 15.3 % High 11.6-14.6 [facility] Erythrocyte distribution wid th standard deviationOrdered By: David Miramontes on 08-22-2024 Erythrocyte distribution width (RBC) [Ratio] 57.1 fl High 35.1-43.9 [facility] Glomerular filtration rate ( GFR) estimation/1.73 sq m using serum, plasma, or whole bOrdered By: David Miramontes on 08-22-2024 GFR/1.73 sq M.predicted among non-blacks MDRD (S/P/Bld) [Vol rate/Area] 78 mL/min/{1.73_m2} >60 [facility] Comment on above: mL/min/1.73m2 CKD-EP I Creatinine Equation (2020) Hematocrit Auto (Bld) [Volum e fraction]Ordered By: David Miramontes on 08-22-2024 Hematocrit (Bld) [Volume fraction] 41.1 % 40-54 [facility] Hemoglobin measurementOrdere d By: David Miramontes on 08-22-2024 Hemoglobin (Bld) [Mass/Vol] 12.9 g/dL Low 13.0-16.5 [facility] Immature granulocytes/100 WB C Auto (Bld)Ordered By: David Miramontes on 08-22-2024 Immature granulocytes/100 WBC (Bld) 0.600 % 0.0-0.9 [facility] Comment on above: IG% - Immature Granu locytes (promyelocytes, myelocytes and metamyelocytes) > 1% indicates that a LEFT SHIFT is Present. Laboratory - Chemistry and C hemistry - challengeOrdered By: David Miramontes on 08-22-2024 AST [Catalytic activity/Vol] 34 U/L <38 [facility] MCV (mean corpuscular volume ) determinationOrdered By: David Miramontes on 08-22-2024 MCV (RBC) [Entitic vol] 102.5 fL High 80-94 [facility] Mean corpuscular hemoglobin (MCH) determinationOrdered By: David Miramontes on 08-22-2024 MCH (RBC) [Entitic mass] 32.2 pg High 27.0-32.0 [facility] Mean corpuscular hemoglobin concentration (MCHC) determinationOrdered By: David Miramontes on 08-22-2024 MCHC (RBC) [Mass/Vol] 31.4 g/dL Low 32-36 [facility] Mean platelet volume determi nationOrdered By: David Miramontes on 08-22-2024 Platelet mean volume (Bld) [Entitic vol] 11.4 fL 6.2-12.0 [facility] Monocyte percentageOrdered B y: David Miramontes on 08-22-2024 Monocytes/100 WBC (Bld) 10.0 % 0-10 [facility] Neutrophil percentageOrdered By: David Miramontes on 08-22-2024 Neutrophils/100 WBC (Bld) 68.5 % 47-70 [facility] Nucleated red blood cell per centageOrdered By: David Miramontes on 08-22-2024 Nucleated RBC/100 WBC (Bld) [Ratio] 0 % 0-5 [facility] Platelet countOrdered By: Mayra waynecarleen Miramontes on 08-22-2024 Platelets (Bld) [#/Vol] 170 10*3/uL 150-450 [facility] Potassium measurement (mass/ volume)Ordered By: David Miramontes on 08-22-2024 Potassium (Unsp spec) [Mass/Vol] 3.8 mmol/L 3.3-5.1 [facility] RBC Auto (Bld) [#/Vol]Ordere d By: David Miramontes on 08-22-2024 RBC (Bld) [#/Vol] 4.01 10*6/uL Low 4.6-6.2 [facility] Serum creatinine measurement (mass/volume)Ordered By: David Miramontes on 08-22-2024 Creatinine [Mass/Vol] 0.96 mg/dL 0.70-1.20 [facility] Serum globulin measurementOr dered By: David Miramontes on 08-22-2024 Globulin (S) [Mass/Vol] 2.7 g/dL 2.2-4.2 [facility] Serum glucose measurement (m ass/volume)Ordered By: David Miramontes on 08-22-2024 Glucose [Mass/Vol] 82 mg/dL 70-99 [facility] Serum or plasma alanine grant otransferase (ALT) measurementOrdered By: David Miramontes on 08-22-2024 ALT [Catalytic activity/Vol] 13 U/L <47 [facility] Serum or plasma albumin siobhan urement (mass/volume)Ordered By: David Miramontes on 08-22-2024 Albumin [Mass/Vol] 3.5 g/dL 3.4-4.8 [facility] Serum or plasma albumin/glob ulin mass ratioOrdered By: David Miramontes on 08-22-2024 Albumin/Globulin [Mass ratio] 1.3 {ratio} 0.9-2.4 [facility] Serum or plasma alkaline deven sphatase measurementOrdered By: David Miramontes on 08-22-2024 ALP [Catalytic activity/Vol] 106 U/L 40-129 [facility] Serum or plasma calcium siobhan urement (mass/volume)Ordered By: David Miramontes 08-22-2024 Calcium [Mass/Vol] 8.9 mg/dL 7.6-11.0 [facility] Serum or plasma urea nitroge n measurement (mass/volume)Ordered By: David Miramontes 08-22-2024 Urea nitrogen [Mass/Vol] 13 mg/dL 4-19 [facility] Sodium levelOrdered By: Frandy Miramontes on 08-22-2024 Sodium [Moles/Vol] 142 mmol/L 133-145 [facility] Total proteinOrdered By: Lg Miramontes on 08-22-2024 Protein [Mass/Vol] 6.2 g/dL 5.9-8.4 [facility] White blood cell (WBC) count Ordered By: David Miramontes on 08-22-2024 WBC (Bld) [#/Vol] 7.3 10*3/uL 4.4-11.0 [facility] Anion gap in Serum or Plasma Ordered By: David Miramontes on 08-02-2024 Anion gap [Moles/Vol] 11 mmol/L 5-15 [facility] BUN/creatinine ratioOrdered By: David Miramontes on 08-02-2024 Urea nitrogen/Creatinine [Mass ratio] 12.3 mg/mg 10-20 [facility] Carbon dioxide, total [Moles /volume] in Central venous bloodOrdered By: David Miramontes on 08-02-2024 CO2 [Moles/Vol] 24.2 mmol/L 21.0-32.0 [facility] Chloride assayOrdered By: Mayra Miramontes on 08-02-2024 Chloride [Moles/Vol] 105 mmol/L 98-108 [facility] Glomerular filtration rate ( GFR) estimation/1.73 sq m using serum, plasma, or whole bOrdered By: David Miramontes on 08-02-2024 GFR/1.73 sq M.predicted among non-blacks MDRD (S/P/Bld) [Vol rate/Area] 73 mL/min/{1.73_m2} >60 [facility] Comment on above: mL/min/1.73m2 CKD-EP I Creatinine Equation (2020) Potassium measurement (mass/ volume)Ordered By: David Miramontes on 08-02-2024 Potassium (Unsp spec) [Mass/Vol] 3.7 mmol/L 3.3-5.1 [facility] Serum creatinine measurement (mass/volume)Ordered By: David Miramontes on 08-02-2024 Creatinine [Mass/Vol] 1.01 mg/dL 0.70-1.20 [facility] Serum glucose measurement (m ass/volume)Ordered By: David Miramontes on 08-02-2024 Glucose [Mass/Vol] 140 mg/dL High 70-99 [facility] Serum or plasma calcium siobhan urement (mass/volume)Ordered By: David Miramontes on 08-02-2024 Calcium [Mass/Vol] 9.1 mg/dL 7.6-11.0 [facility] Serum or plasma urea nitroge n measurement (mass/volume)Ordered By: David Miramontes on 08-02-2024 Urea nitrogen [Mass/Vol] 12 mg/dL 4-19 [facility] Sodium levelOrdered By: Frandy Miramontes on 08-02-2024 Sodium [Moles/Vol] 141 mmol/L 133-145 [facility] Absolute lymphocyte countOrd ered By: David Miramontes on 08-01-2024 Lymphocytes Auto (Unsp spec) [#/Vol] 1.39 10*3/uL 0.83-4.51 [facility] Absolute neutrophil countOrd ered By: danay Miramontes on 08-01-2024 Neutrophils (Bld) [#/Vol] 4.8 10*3/uL 2.0-7.7 [facility] Automated lymphocyte count a s percentage of total leukocytesOrdered By: David Miramontes on 08-01-2024 Lymphocytes/100 WBC Auto (Unsp spec) 18.9 % Low 19-41 [facility] Basophil percentageOrdered B y: David Miramontes on 08-01-2024 Basophils/100 WBC (Bld) 0.4 % 0-1 [facility] Eosinophil percentageOrdered By: [facility] on 08-01-2024 Eosinophils/100 WBC (Bld) 2.6 % 0-5 [facility] Erythrocyte distribution wid th ratioOrdered By: danay Miramontes on 08-01-2024 Erythrocyte distribution width (RBC) [Ratio] 15.5 % High 11.6-14.6 [facility] Erythrocyte distribution wid th standard deviationOrdered By: danay Miramontes on 08-01-2024 Erythrocyte distribution width (RBC) [Ratio] 57.9 fl High 35.1-43.9 [facility] Hematocrit Auto (Bld) [Volum e fraction]Ordered By: David Miramontes on 08-01-2024 Hematocrit (Bld) [Volume fraction] 40.2 % 40-54 [facility] Hemoglobin measurementOrdere d By: David Miramontes on 08-01-2024 Hemoglobin (Bld) [Mass/Vol] 12.6 g/dL Low 13.0-16.5 [facility] Immature granulocytes/100 WB C Auto (Bld)Ordered By: David Miramontes on 08-01-2024 Immature granulocytes/100 WBC (Bld) 0.400 % 0.0-0.9 [facility] Comment on above: IG% - Immature Granu locytes (promyelocytes, myelocytes and metamyelocytes) > 1% indicates that a LEFT SHIFT is Present. MCV (mean corpuscular volume ) determinationOrdered By: David Miramontes on 08-01-2024 MCV (RBC) [Entitic vol] 100.8 fL High 80-94 [facility] Mean corpuscular hemoglobin (MCH) determinationOrdered By: David Miramontes on 08-01-2024 MCH (RBC) [Entitic mass] 31.6 pg 27.0-32.0 [facility] Mean corpuscular hemoglobin concentration (MCHC) determinationOrdered By: David Miramontes on 08-01-2024 MCHC (RBC) [Mass/Vol] 31.3 g/dL Low 32-36 [facility] Mean platelet volume determi nationOrdered By: David Miramontes on 08-01-2024 Platelet mean volume (Bld) [Entitic vol] 11.8 fL 6.2-12.0 [facility] Monocyte percentageOrdered B y: David Miramontes on 08-01-2024 Monocytes/100 WBC (Bld) 12.5 % High 0-10 [facility] Neutrophil percentageOrdered By: David Miramontes on 08-01-2024 Neutrophils/100 WBC (Bld) 65.2 % 47-70 [facility] Nucleated red blood cell per centageOrdered By: David Miramontes on 08-01-2024 Nucleated RBC/100 WBC (Bld) [Ratio] 0 % 0-5 [facility] Platelet countOrdered By: Mayra Miramontes on 08-01-2024 Platelets (Bld) [#/Vol] 182 10*3/uL 150-450 [facility] RBC Auto (Bld) [#/Vol]Ordere d By: David Miramontes on 08-01-2024 RBC (Bld) [#/Vol] 3.99 10*6/uL Low 4.6-6.2 [facility] White blood cell (WBC) count Ordered By: David Miramontes on 08-01-2024 WBC (Bld) [#/Vol] 7.4 10*3/uL 4.4-11.0 [facility] Absolute lymphocyte countOrd ered By: David Miramontes on 07-21-2024 Lymphocytes Auto (Unsp spec) [#/Vol] 1.21 10*3/uL 0.83-4.51 [facility] Absolute neutrophil countOrd ered By: David Miramontes on 07-21-2024 Neutrophils (Bld) [#/Vol] 5.1 10*3/uL 2.0-7.7 [facility] Anion gap in Serum or Plasma Ordered By: David Miramontes on 07-21-2024 Anion gap [Moles/Vol] 10 mmol/L 5-15 [facility] Automated lymphocyte count a s percentage of total leukocytesOrdered By: David Miramontes on 07-21-2024 Lymphocytes/100 WBC Auto (Unsp spec) 16.7 % Low 19-41 [facility] BUN/creatinine ratioOrdered By: David Miramontes on 07-21-2024 Urea nitrogen/Creatinine [Mass ratio] 16.2 mg/mg 10-20 [facility] Basophil percentageOrdered B y: David Miramontes on 07-21-2024 Basophils/100 WBC (Bld) 0.4 % 0-1 [facility] Carbon dioxide, total [Moles /volume] in Central venous bloodOrdered By: David Miramontes on 07-21-2024 CO2 [Moles/Vol] 25.5 mmol/L 21.0-32.0 [facility] Chloride assayOrdered By: Mayra Miramontes on 07-21-2024 Chloride [Moles/Vol] 106 mmol/L 98-108 [facility] Eosinophil percentageOrdered By: David Miramontes on 07-21-2024 Eosinophils/100 WBC (Bld) 1.4 % 0-5 [facility] Erythrocyte distribution wid th ratioOrdered By: waynesummitingris Miramontes on 07-21-2024 Erythrocyte distribution width (RBC) [Ratio] 15.4 % High 11.6-14.6 [facility] Erythrocyte distribution wid th standard deviationOrdered By: [facility] Miramont[facility] on 07-21-2024 Erythrocyte distribution width (RBC) [Ratio] 57.9 fl High 35.1-43.9 [facility] Glomerular filtration rate ( GFR) estimation/1.73 sq m using serum, plasma, or whole bOrdered By: [facility] Miramontes on 07-21-2024 GFR/1.73 sq M.predicted among non-blacks MDRD (S/P/Bld) [Vol rate/Area] 67 mL/min/{1.73_m2} >60 [facility] Comment on above: mL/min/1.73m2 CKD-EP I Creatinine Equation (2020) Hematocrit Auto (Bld) [Volum e fraction]Ordered By: [facility] Miramont[facility] on 07-21-2024 Hematocrit (Bld) [Volume fraction] 39.0 % Low 40-54 [facility] Hemoglobin measurementOrdere d By: [facility] Miramont[facility] on 07-21-2024 Hemoglobin (Bld) [Mass/Vol] 12.4 g/dL Low 13.0-16.5 [facility] Immature granulocytes/100 WB C Auto (Bld)Ordered By: waynesummitingris Miramontes 07-21-2024 Immature granulocytes/100 WBC (Bld) 0.400 % 0.0-0.9 [facility] Comment on above: IG% - Immature Granu locytes (promyelocytes, myelocytes and metamyelocytes) > 1% indicates that a LEFT SHIFT is Present. MCV (mean corpuscular volume ) determinationOrdered By: Frandysummitingris Miramontes 07-21-2024 MCV (RBC) [Entitic vol] 101.0 fL High 80-94 [facility] Mean corpuscular hemoglobin (MCH) determinationOrdered By: [facility] Pinktereza 07-21-2024 MCH (RBC) [Entitic mass] 32.1 pg High 27.0-32.0 [facility] Mean corpuscular hemoglobin concentration (MCHC) determinationOrdered By: David Miramontes on 07-21-2024 MCHC (RBC) [Mass/Vol] 31.8 g/dL Low 32-36 [facility] Mean platelet volume determi nationOrdered By: David Miramontes on 07-21-2024 Platelet mean volume (Bld) [Entitic vol] 11.7 fL 6.2-12.0 [facility] Monocyte percentageOrdered B y: David Miramontes on 07-21-2024 Monocytes/100 WBC (Bld) 11.3 % High 0-10 [facility] Neutrophil percentageOrdered By: David Miramontes on 07-21-2024 Neutrophils/100 WBC (Bld) 69.8 % 47-70 [facility] Nucleated red blood cell per centageOrdered By: David Miramontes on 07-21-2024 Nucleated RBC/100 WBC (Bld) [Ratio] 0 % 0-5 [facility] Platelet countOrdered By: Mayra waynecarleen Miramontes on 07-21-2024 Platelets (Bld) [#/Vol] 172 10*3/uL 150-450 [facility] Potassium measurement (mass/ volume)Ordered By: David Miramontes on 07-21-2024 Potassium (Unsp spec) [Mass/Vol] 3.9 mmol/L 3.3-5.1 [facility] RBC Auto (Bld) [#/Vol]Ordere d By: David Miramontes on 07-21-2024 RBC (Bld) [#/Vol] 3.86 10*6/uL Low 4.6-6.2 [facility] Serum creatinine measurement (mass/volume)Ordered By: David Miramontes on 07-21-2024 Creatinine [Mass/Vol] 1.08 mg/dL 0.70-1.20 [facility] Serum glucose measurement (m ass/volume)Ordered By: David Miramontes on 07-21-2024 Glucose [Mass/Vol] 90 mg/dL 70-99 [facility] Serum or plasma calcium siobhan urement (mass/volume)Ordered By: David Miramontes on 07-21-2024 Calcium [Mass/Vol] 9.1 mg/dL 7.6-11.0 [facility] Serum or plasma urea nitroge n measurement (mass/volume)Ordered By: Mayradanay Miramontes on 07-21-2024 Urea nitrogen [Mass/Vol] 18 mg/dL 4-19 [facility] Sodium levelOrdered By: Frandy durant Joesphiman on 07-21-2024 Sodium [Moles/Vol] 141 mmol/L 133-145 [facility] TSH DL <= 0.005 mIU/L QnOrde red By: David Joesphiman on 07-21-2024 TSH Qn 2.450 uIU/mL 0.300-4.200 [facility] White blood cell (WBC) count Ordered By: Mayrawaynefeliciaingris Pinkamnatereza on 07-21-2024 WBC (Bld) [#/Vol] 7.3 10*3/uL 4.4-11.0 [facility] BLADDER SCANon 07-14-2024 PVR 59 Cc [facility] BLADDER SCANOrdered By: Dayo Perez on 07-14-2024 [facility] CNOVon 07-14-2024 CNOV Office Visit (AKURFL) KEL DILLARD ([id number]) 1940 M Date Time Provider Department 07/14/24 9:00 AM DIANA ARANGO During your visit today, we recorded the following information about you: Diana Arango APRN.CNP 07/14/2024 9:11 AM Signed [facility] [place] [facility] [place] [facility] JUAN NEW PATIENT UROLOGY VISIT 07/14/2024 8:51 AM PATIENT NAME: Kel Angel Gilma DATE OF : 1940 TODAY'S DATE: 07/14/2024 [...] Center CYTOLOGY NON-GYNon 5 AP DISCLAIMER Normal [facility] Comment on above: Order Comment: Speci men Type: URINE SPECIMEN Ordering Facility: [facility] Address: [address] [place] [address] Result Comment: Hussain blanco Developed Test (LDT) Disclaimer: Performance characteristics of immunohistochemical, immunofluorescent, and chromogenic in-situ hybridization tests have been determined by the performing laboratory within [facility]'s [facility] Pathology and Laboratory Medicine Department ([facility]3], [facility], [facility], [facility], [facility], [facility], or [facility]) in a manner consistent with CLIA [...] appropriately. Performed By: #### C YTONON #### [facility] CLIA [id number] [address] [place] [address] [place] CASE REPORT Normal [facility] Comment on above: Order Comment: Speci men Type: URINE SPECIMEN Ordering Facility: [facility] Address: [address] [place] [address] Result Comment: [facility] Cytology Report Case: [id number] Authorizing Provider: Diana Arango Collected: 07/14/2024 09:01 AM MATTHEW Ochoa Ordering Location: [facility] Received: 07/17/2024 03:50 AM Pathologist: Rosy Cavazos MD Specimen: Urine, Midstream Performed By: #### C YTONON #### [facility] CLIA [id number] [address] OF [place] CLINICAL HISTORY gross hematuria Normal [facility] Comment on above: Order Comment: Speci men Type: URINE SPECIMEN Ordering Facility: [facility] Address: [address] [place] [address] Performed By: #### C YTONON #### [facility] CLIA [id number] [address] FINAL DIAGNOSIS Normal [facility] Comment on above: Order Comment: Speci men Type: URINE SPECIMEN Ordering Facility: [facility] Address: [address] [place] [address] Result Comment: A - Urine, Midstream Negative for high-grade urothelial carcinoma. Blood. at 1046 EDT Performed By: #### C YTONON #### [facility] CLIA [id number] [address] [place] [address] FINAL PERFORMING LAB Normal [facility] Comment on above: Order Comment: Speci men Type: URINE SPECIMEN Ordering Facility: [facility] Address: [address] [place] [address] Result Comment: Tech nical component, glaze carrier screening performed at: [facility], [address] [place] [address] CLIA: [id number] Diagnostic interpretation performed at: [facility], [address] [place] [address] CLIA# [id number] Fire Prevention Engineer: Josiah Ochoa MD Performed By: #### C YTONON #### [facility] CLIA [id number] [address] [place] [address] GROSS DESCRIPTION Normal [facility] Comment on above: Order Comment: Speci men Type: URINE SPECIMEN Ordering Facility: [facility] Address: [address] [place] [address] Result Comment: A. U rine, Midstream 7.5 cc cloudy yellow fluid. ThinPrep prepared. Performed By: #### C YTONON #### [facility] CLIA [id number] [address] UA DIP, URINE (POC)on 2024 BILIRUBIN UA (POCT) Negative Negative [facility] CLARITY UA (POCT) Clear [facility] COLOR UA (POCT) Yellow [facility] GLUCOSE UA (POCT) Negative Negative mg/dL [facility] Hemoglobin Ql (U) Trace-intact Abnormal Negative [facility] Interpretation and review of laboratory results Abnormal [facility] KETONE UA (POCT) Negative Negative mg/dL [facility] LEUKOCYTES UA (POCT) Negative [facility] NITRITE UA (POCT) Negative Negative [facility] PH UA (POCT) 5.5 4.5 - 8.0 [facility] Protein Ql (U) 30 mg/dL Abnormal Negative [facility] SPECIFIC GRAVITY UA (POCT) 1.025 1.005 - 1.030 [facility] UROBILINOGEN UA (POCT) 0.2 Debbie l E.U./dL [facility] Location:[facility], [address] [place] [address], [address] [place] [address] POINT OF CARE [facility] Serum or plasma uric acid me asurement (mass/volume)Ordered By: David Miramontes on 06-23-2024 Urate [Mass/Vol] 4.2 mg/dL 3.5-7.2 [facility] Comment on above: The drugs N-Acetylcy steine and Metamizole may falsely depress this assay. Absolute lymphocyte countOrd ered By: David Miramontes on 06-05-2024 Lymphocytes Auto (Unsp spec) [#/Vol] 1.05 10*3/uL 0.83-4.51 [facility] Absolute neutrophil countOrd ered By: David Miramontes on 06-05-2024 Neutrophils (Bld) [#/Vol] 4.8 10*3/uL 2.0-7.7 [facility] Anion gap in Serum or Plasma Ordered By: David Miramontes on 06-05-2024 Anion gap [Moles/Vol] 11 mmol/L 5-15 [facility] Automated lymphocyte count a s percentage of total leukocytesOrdered By: David Miramontes on 06-05-2024 Lymphocytes/100 WBC Auto (Unsp spec) 15.8 % Low 19-41 [facility] BUN/creatinine ratioOrdered By: David Miramontes on 06-05-2024 Urea nitrogen/Creatinine [Mass ratio] 9.3 mg/mg Low 10-20 [facility] Basophil percentageOrdered B y: David Miramontes on 06-05-2024 Basophils/100 WBC (Bld) 1.1 % High 0-1 [facility] Carbon dioxide, total [Moles /volume] in Central venous bloodOrdered By: David Miramontes on 06-05-2024 CO2 [Moles/Vol] 26.8 mmol/L 21.0-32.0 [facility] Chloride assayOrdered By: Mayra Miramontes on 06-05-2024 Chloride [Moles/Vol] 101 mmol/L 98-108 [facility] Eosinophil percentageOrdered By: David Miramontes on 06-05-2024 Eosinophils/100 WBC (Bld) 2.3 % 0-5 [facility] Erythrocyte distribution wid th (RBC) [Ratio]Ordered By: David Miramontes on 06-05-2024 Erythrocyte distribution width (RBC) [Entitic vol] 55.4 fL High 35.1-43.9 [facility] Erythrocyte distribution wid th ratioOrdered By: David Miramontes on 06-05-2024 Erythrocyte distribution width (RBC) [Ratio] 15.0 % High 11.6-14.6 [facility] Erythrocyte distribution wid th standard deviationOrdered By: David Miramontes on 06-05-2024 Erythrocyte distribution width (RBC) [Ratio] 55.4 fl High 35.1-43.9 [facility] GFR/1.73 sq M.predicted eleazar g non-blacks MDRD (S/P/Bld) [Vol rate/Area]Ordered By: David Miramontes on 06-05-2024 Estimated GFR (MDRD) Non-Af Amer 48 Low >60 [facility] Comment on above: mL/min/1.73m2 CKD-EP I Creatinine Equation (2020) Glomerular filtration rate ( GFR) estimation/1.73 sq m using serum, plasma, or whole bOrdered By: David Miramontes on 06-05-2024 GFR/1.73 sq M.predicted among non-blacks MDRD (S/P/Bld) [Vol rate/Area] 48 mL/min/{1.73_m2} Low >60 [facility] Comment on above: mL/min/1.73m2 CKD-EP I Creatinine Equation (2020) Hematocrit Auto (Bld) [Volum e fraction]Ordered By: David Miramontes on 06-05-2024 Hematocrit (Bld) [Volume fraction] 41.8 % 40-54 [facility] Hemoglobin measurementOrdere d By: danay Miramontes on 06-05-2024 Hemoglobin (Bld) [Mass/Vol] 13.3 g/dL 13.0-16.5 [facility] Immature granulocytes/100 WB C Auto (Bld)Ordered By: danay Miramontes on 06-05-2024 Immature granulocytes/100 WBC (Bld) 0.300 % 0.0-0.9 [facility] Comment on above: IG% - Immature Granu locytes (promyelocytes, myelocytes and metamyelocytes) > 1% indicates that a LEFT SHIFT is Present. Lymphocytes Auto (Unsp spec) [#/Vol]Ordered By: David Miramontes on 06-05-2024 Lymphocytes (Bld) [#/Vol] 1.05 10*3/uL 0.83-4.51 [facility] Lymphocytes/100 WBC Auto (Un sp spec)Ordered By: David Miramontes on 06-05-2024 Lymphocytes/100 WBC (Bld) 15.8 % Low 19-41 [facility] MCV (mean corpuscular volume ) determinationOrdered By: David Miramontes on 06-05-2024 MCV (RBC) [Entitic vol] 100.5 fL High 80-94 [facility] Mean corpuscular hemoglobin (MCH) determinationOrdered By: David Miramontes on 06-05-2024 MCH (RBC) [Entitic mass] 32.0 pg 27.0-32.0 [facility] Mean corpuscular hemoglobin concentration (MCHC) determinationOrdered By: David Miramontes on 06-05-2024 MCHC (RBC) [Mass/Vol] 31.8 g/dL Low 32-36 [facility] Mean platelet volume determi nationOrdered By: David Miramontes on 06-05-2024 Platelet mean volume (Bld) [Entitic vol] 11.3 fL 6.2-12.0 [facility] Monocyte percentageOrdered B y: David Miramontes on 06-05-2024 Monocytes/100 WBC (Bld) 8.9 % 0-10 [facility] Neutrophil percentageOrdered By: David Miramontes on 06-05-2024 Neutrophils/100 WBC (Bld) 71.6 % High 47-70 [facility] Nucleated red blood cell per centageOrdered By: David Miramontes on 06-05-2024 Nucleated RBC/100 WBC (Bld) [Ratio] 0 % 0-5 [facility] Platelet countOrdered By: Mayra waynecarleen Miramontes on 06-05-2024 Platelets (Bld) [#/Vol] 216 10*3/uL 150-450 [facility] Potassium (Unsp spec) [Mass/ Vol]Ordered By: David Miramontes on 06-05-2024 Potassium [Moles/Vol] 3.9 mmol/L 3.3-5.1 [facility] Potassium measurement (mass/ volume)Ordered By: David Miramontes on 06-05-2024 Potassium (Unsp spec) [Mass/Vol] 3.9 mmol/L 3.3-5.1 [facility] RBC Auto (Bld) [#/Vol]Ordere d By: David Miramontes on 06-05-2024 RBC (Bld) [#/Vol] 4.16 10*6/uL Low 4.6-6.2 [facility] Serum creatinine measurement (mass/volume)Ordered By: David Miramontes on 06-05-2024 Creatinine [Mass/Vol] 1.42 mg/dL High 0.70-1.20 [facility] Serum glucose measurement (m ass/volume)Ordered By: David Miramontes on 06-05-2024 Glucose [Mass/Vol] 85 mg/dL 70-99 [facility] Serum or plasma calcium siobhan urement (mass/volume)Ordered By: David Miramontes on 06-05-2024 Calcium [Mass/Vol] 9.0 mg/dL 7.6-11.0 [facility] Serum or plasma urea nitroge n measurement (mass/volume)Ordered By: David Miramontes on 06-05-2024 Urea nitrogen [Mass/Vol] 13 mg/dL 4-19 [facility] Sodium levelOrdered By: Frandy Miramontes on 06-05-2024 Sodium [Moles/Vol] 139 mmol/L 133-145 [facility] White blood cell (WBC) count Ordered By: David Miramontes on 06-05-2024 WBC (Bld) [#/Vol] 6.6 10*3/uL 4.4-11.0 [facility] Amorphous sediment detection in urine sediment by light microscopyOrdered By: David Miramontes on 05-30-2024 Amorphous sediment LM Ql (Urine sed) 1+ [facility] Ankle Brachial Indexon 05-30 Ankle Brachial Index [facility] [address] [place] [address] Ankle Brachial Index 05/30/24 0904 MR#: [id number] Acct: [id number] Name: KEL DILLARD Rep #: [id number] : 1940 84 From: Josiah Klein MD Attending Dr: Dr. David Miramontes MD Status: REG CLI Ordering Dr: David Miramontes MD Date: 05/30/24 Location: [facility] Sex: M C Admitted: Reason [...] CC: Dr. David Miramontes MD Date Dictated: 05/30/24903 Date Transcribed: 05/30/241542 Industrial Renderer: Signed Normal [facility] Arterial study reportOrdered By: Josiah Klein on 05-30-2024 Noninvasive arteriosclerosis study report [facility] [address] [place] [address] Ankle Brachial Index 05/30/24 0904 MR#: [id number] Acct: [id number] Name: KEL DILLARD Rep #:[id number] : 1940 84 From: Josiah Naranjo [...] Date Dictated: 05/30/24 0904 Date Transcribed: 05/30/241542 Industrial Renderer: Signed [facility] Work Phone: Bilirubin Test strip Ql (U)O rdered By: David Miramontes on 05-30-2024 Bilirubin Ql (U) Negative Negative [facility] Epithelial cells.squamous LM Ql (Urine sed)Ordered By: David Miramontes on 05-30-2024 Epithelial cells.squamous LM.HPF (Urine sed) [#/Area] 0 /[HPF] 0-5 [facility] Glucose Ql (U)Ordered By: Mayra Miramontes on 05-30-2024 Urine Glucose (UA) Normal mg/dl Normal [facility] Ketones Test strip Ql (U)Ord ered By: David Miramontes on 05-30-2024 Ketones Ql (U) Negative Negative [facility] Microscopic analysis of urin e for red blood cells (RBC)Ordered By: David Miramontes on 05-30-2024 Microscopic analysis of urine for red blood cells (RBC) > 100 SEEN /hpf 0-5 [facility] Urine RBC > 100 SEEN /hpf 0-5 [facility] Mucus LM Ql (Urine sed)Order ed By: David Miramontes on 05-30-2024 Mucus Ql (Urine sed) 0 SEEN /hpf [facility] Nitrite Test strip Ql (U)Ord ered By: David Miramontes on 05-30-2024 Nitrite Ql (U) Positive High Negative [facility] PSA, total screeningOrdered By: David Miramontes on 05-30-2024 Prostate Specific Antigen Screen 3.08 ng/mL 0.02-4.00 [facility] Comment on above: This test [...] Protein Ql (U) 500 mg/dl High Negative [facility] Squamous epithelial cells de tection in urine sediment by light microscopyOrdered By: David Miramontes on 05-30-2024 Epithelial cells.squamous LM Ql (Urine sed) 0-5 SEEN /hpf 0-5 [facility] Urine blood detectionOrdered By: David Miramontes on 05-30-2024 Urine Occult Blood 250 /ul High Negative [facility] Urine clarityOrdered By: Lg Miramontes on 05-30-2024 Clarity (U) Cloudy Clear [facility] Urine color determinationOrd ered By: David Miramontes on 05-30-2024 Color (U) Brown Yellow [facility] Urine cultureOrdered By: Lg Miramontes on 05-30-2024 Bacteria identified Cx Nom (U) Proteus mirabilis Abnormal [facility] Urine glucose detectionOrder ed By: David Miramontes on 05-30-2024 Glucose Ql (U) Normal mg/dl Normal [facility] Urine leukocyte esterase det ection by dipstickOrdered By: David Miramontes on 05-30-2024 Leukocyte esterase Test strip Ql (U) 500 /ul High Negative [facility] Urine pHOrdered By: Leo Miramontes on 05-30-2024 pH (U) 6.5 [pH] 5.0 - 8.0 [facility] Urine sediment bacteria coun t by microscopy (number/high power field)Ordered By: David Miramontes on 05-30-2024 Bacteria LM.HPF (Urine sed) [#/Area] 2 /[HPF] None Seen [facility] Urine specific gravity measu rementOrdered By: David Miramontes on 05-30-2024 Specific gravity (U) [Rel density] 1.015 1.002-1.030 [facility] Urine urobilinogen measureme ntOrdered By: David Miramontes on 05-30-2024 Urobilinogen Ql (U) 1 mg/dl High Normal [facility] Urobilinogen Ql (U)Ordered B y: David Miramontes on 05-30-2024 Urobilinogen (U) [Mass/Vol] 1 mg/dL High Normal [facility] White blood cell countOrdere d By: David Miramontes on 05-30-2024 Urine WBC 50-100 SEEN /hpf 0-5 [facility] White blood cell count 50-100 SEEN /hpf 0-5 [facility] Absolute lymphocyte countOrd ered By: David Miramontes on 05-22-2024 Lymphocytes Auto (Unsp spec) [#/Vol] 1.26 10*3/uL 0.83-4.51 [facility] Absolute neutrophil countOrd ered By: David Miramontes on 05-22-2024 Neutrophils (Bld) [#/Vol] 6.5 10*3/uL 2.0-7.7 [facility] Anion gap in Serum or Plasma Ordered By: David Miramontes on 05-22-2024 Anion gap [Moles/Vol] 13 mmol/L 5-15 [facility] Automated lymphocyte count a s percentage of total leukocytesOrdered By: David Miramontes on 05-22-2024 Lymphocytes/100 WBC Auto (Unsp spec) 14.0 % Low 19-41 [facility] BUN/creatinine ratioOrdered By: David Miramontes on 05-22-2024 Urea nitrogen/Creatinine [Mass ratio] 7.8 mg/mg Low 10-20 [facility] Basophil percentageOrdered B y: David Miramontes on 05-22-2024 Basophils/100 WBC (Bld) 0.4 % 0-1 [facility] Bilirubin, totalOrdered By: David Miramontes on 05-22-2024 Bilirubin [Mass/Vol] 0.44 mg/dL 0.00-1.30 [facility] Carbon dioxide, total [Moles /volume] in Central venous bloodOrdered By: David Miramontes on 05-22-2024 CO2 [Moles/Vol] 24.8 mmol/L 21.0-32.0 [facility] Chloride assayOrdered By: Mayra Miramontes on 05-22-2024 Chloride [Moles/Vol] 104 mmol/L 98-108 [facility] Eosinophil percentageOrdered By: David Miramontes on 05-22-2024 Eosinophils/100 WBC (Bld) 1.0 % 0-5 [facility] Erythrocyte distribution wid th (RBC) [Ratio]Ordered By: David Miramontes on 05-22-2024 Erythrocyte distribution width (RBC) [Entitic vol] 54.3 fL High 35.1-43.9 [facility] Erythrocyte distribution wid th ratioOrdered By: David Miramontes on 05-22-2024 Erythrocyte distribution width (RBC) [Ratio] 15.1 % High 11.6-14.6 [facility] Erythrocyte distribution wid th standard deviationOrdered By: David Miramontes on 05-22-2024 Erythrocyte distribution width (RBC) [Ratio] 54.3 fl High 35.1-43.9 [facility] GFR/1.73 sq M.predicted eleazar g non-blacks MDRD (S/P/Bld) [Vol rate/Area]Ordered By: David Miramontes on 05-22-2024 Estimated GFR (MDRD) Non-Af Amer 33 Low >60 [facility] Comment on above: mL/min/1.73m2 CKD-EP I Creatinine Equation (2020) Glomerular filtration rate ( GFR) estimation/1.73 sq m using serum, plasma, or whole bOrdered By: David Miramontes on 05-22-2024 GFR/1.73 sq M.predicted among non-blacks MDRD (S/P/Bld) [Vol rate/Area] 33 mL/min/{1.73_m2} Low >60 [facility] Comment on above: mL/min/1.73m2 CKD-EP I Creatinine Equation (2020) Hematocrit Auto (Bld) [Volum e fraction]Ordered By: David Miramontes on 05-22-2024 Hematocrit (Bld) [Volume fraction] 40.5 % 40-54 [facility] Hemoglobin measurementOrdere d By: David Miramontes on 05-22-2024 Hemoglobin (Bld) [Mass/Vol] 12.9 g/dL Low 13.0-16.5 [facility] Immature granulocytes/100 WB C Auto (Bld)Ordered By: David Miramontes on 05-22-2024 Immature granulocytes/100 WBC (Bld) 0.300 % 0.0-0.9 [facility] Comment on above: IG% - Immature Granu locytes (promyelocytes, myelocytes and metamyelocytes) > 1% indicates that a LEFT SHIFT is Present. Laboratory - Chemistry and C hemistry - challengeOrdered By: David Miramontes on 05-22-2024 AST [Catalytic activity/Vol] 33 U/L <38 [facility] Lymphocytes Auto (Unsp spec) [#/Vol]Ordered By: David Miramontes on 05-22-2024 Lymphocytes (Bld) [#/Vol] 1.26 10*3/uL 0.83-4.51 [facility] Lymphocytes/100 WBC Auto (Un sp spec)Ordered By: David Miramontes on 05-22-2024 Lymphocytes/100 WBC (Bld) 14.0 % Low 19-41 [facility] MCV (mean corpuscular volume ) determinationOrdered By: David Miramontes on 05-22-2024 MCV (RBC) [Entitic vol] 99.3 fL High 80-94 [facility] Mean corpuscular hemoglobin (MCH) determinationOrdered By: David Miramontes on 05-22-2024 MCH (RBC) [Entitic mass] 31.6 pg 27.0-32.0 [facility] Mean corpuscular hemoglobin concentration (MCHC) determinationOrdered By: David Miramontes on 05-22-2024 MCHC (RBC) [Mass/Vol] 31.9 g/dL Low 32-36 [facility] Mean platelet volume determi nationOrdered By: David Miramontes on 05-22-2024 Platelet mean volume (Bld) [Entitic vol] 12.1 fL High 6.2-12.0 [facility] Monocyte percentageOrdered B y: David Miramontes on 05-22-2024 Monocytes/100 WBC (Bld) 11.8 % High 0-10 [facility] Neutrophil percentageOrdered By: David Miramontes on 05-22-2024 Neutrophils/100 WBC (Bld) 72.5 % High 47-70 [facility] Nucleated red blood cell per centageOrdered By: David Miramontes on 05-22-2024 Nucleated RBC/100 WBC (Bld) [Ratio] 0 % 0-5 [facility] Platelet countOrdered By: Mayra Miramontes on 05-22-2024 Platelets (Bld) [#/Vol] 179 10*3/uL 150-450 [facility] Potassium (Unsp spec) [Mass/ Vol]Ordered By: David Miramontes on 05-22-2024 Potassium [Moles/Vol] 3.3 mmol/L 3.3-5.1 [facility] Potassium measurement (mass/ volume)Ordered By: David Miramontes on 05-22-2024 Potassium (Unsp spec) [Mass/Vol] 3.3 mmol/L 3.3-5.1 [facility] RBC Auto (Bld) [#/Vol]Ordere d By: David Miramontes on 05-22-2024 RBC (Bld) [#/Vol] 4.08 10*6/uL Low 4.6-6.2 [facility] Serum creatinine measurement (mass/volume)Ordered By: David Miramontes on 05-22-2024 Creatinine [Mass/Vol] 1.94 mg/dL High 0.70-1.20 [facility] Serum globulin measurementOr dered By: David Miramontes on 05-22-2024 Globulin (S) [Mass/Vol] 3.2 g/dL 2.2-4.2 [facility] Serum glucose measurement (m ass/volume)Ordered By: David Miramontes on 05-22-2024 Glucose [Mass/Vol] 112 mg/dL High 70-99 [facility] Serum or plasma alanine grant otransferase (ALT) measurementOrdered By: David Miramontes on 05-22-2024 ALT [Catalytic activity/Vol] 8 U/L <47 [facility] Serum or plasma albumin siobhan urement (mass/volume)Ordered By: David Miramontes on 05-22-2024 Albumin [Mass/Vol] 3.5 g/dL 3.4-4.8 [facility] Serum or plasma albumin/glob ulin mass ratioOrdered By: David Miramontes on 05-22-2024 Albumin/Globulin [Mass ratio] 1.1 {ratio} 0.9-2.4 [facility] Serum or plasma alkaline deven sphatase measurementOrdered By: David Miramontes on 05-22-2024 ALP [Catalytic activity/Vol] 71 U/L 40-129 [facility] Serum or plasma calcium siobhan urement (mass/volume)Ordered By: David Miramontes on 05-22-2024 Calcium [Mass/Vol] 8.8 mg/dL 7.6-11.0 [facility] Serum or plasma urea nitroge n measurement (mass/volume)Ordered By: David Miramontes on 05-22-2024 Urea nitrogen [Mass/Vol] 15 mg/dL 4-19 [facility] Sodium levelOrdered By: Frandy Miramontes on 05-22-2024 Sodium [Moles/Vol] 141 mmol/L 133-145 [facility] Total proteinOrdered By: Lg Miramontes on 05-22-2024 Protein [Mass/Vol] 6.7 g/dL 5.9-8.4 [facility] White blood cell (WBC) count Ordered By: David Miramontes on 05-22-2024 WBC (Bld) [#/Vol] 9.0 10*3/uL 4.4-11.0 [facility] Bilirubin Test strip Ql (U)O rdered By: David Miramontes on 04-17-2024 Bilirubin Ql (U) 1 mg/dL High Negative [facility] Comment on above: COLOR OF URINE MAY A FFECT DIPSTICK RESULTS. Glucose Ql (U)Ordered By: Mayra Miramontes on 04-17-2024 Urine Glucose (UA) Normal mg/dl Normal [facility] Ketones Test strip Ql (U)Ord ered By: David Miramontes on 04-17-2024 Ketones Ql (U) 5 mg/dl High Negative [facility] Nitrite Test strip Ql (U)Ord ered By: David Miramontes on 04-17-2024 Nitrite Ql (U) Negative Negative [facility] Protein Test strip Ql (U)Ord ered By: David Miramontes on 04-17-2024 Protein Ql (U) 100 mg/dl High Negative [facility] Urine blood detectionOrdered By: David Miramontes on 04-17-2024 Urine Occult Blood 250 /ul High Negative [facility] Urine clarityOrdered By: Lg Miramontes on 04-17-2024 Clarity (U) Turbid Clear [facility] Urine color determinationOrd ered By: David Miramontes on 04-17-2024 Color (U) Kristina Yellow [facility] Urine cultureOrdered By: Lg Miramontes on 04-17-2024 Bacteria identified Cx Nom (U) Proteus mirabilis Abnormal [facility] Urine glucose detectionOrder ed By: David Miramontes on 04-17-2024 Glucose Ql (U) Normal mg/dl Normal [facility] Urine leukocyte esterase det ection by dipstickOrdered By: David Miramontes on 04-17-2024 Leukocyte esterase Test strip Ql (U) 100 /ul High Negative [facility] Urine pHOrdered By: Leo Miramontes on 04-17-2024 pH (U) 5.0 [pH] 5.0 - 8.0 [facility] Urine specific gravity measu rementOrdered By: David Miramontes on 04-17-2024 Specific gravity (U) [Rel density] 1.025 1.002-1.030 [facility] Urine urobilinogen measureme ntOrdered By: David Guerrae on 04-17-2024 Urobilinogen Ql (U) Normal mg/dl Normal [facility] Urobilinogen Ql (U)Ordered B y: Efdanay Guerrae on 04-17-2024 Urine Urobilinogen Normal mg/dl Normal [facility] Absolute lymphocyte countOrd ered By: Efdanay Guerrae on 04-13-2024 Lymphocytes Auto (Unsp spec) [#/Vol] 0.98 10*3/uL 0.83-4.51 [facility] Absolute neutrophil countOrd ered By: Efwayneongingris Guerrae on 04-13-2024 Neutrophils (Bld) [#/Vol] 7.0 10*3/uL 2.0-7.7 [facility] Automated lymphocyte count a s percentage of total leukocytesOrdered By: David Guerrae on 04-13-2024 Lymphocytes/100 WBC Auto (Unsp spec) 11.0 % Low 19-41 [facility] Basophil percentageOrdered B y: David Guerrae on 04-13-2024 Basophils/100 WBC (Bld) 0.2 % 0-1 [facility] Eosinophil percentageOrdered By: Efwayneongingris Guerrae on 04-13-2024 Eosinophils/100 WBC (Bld) 1.2 % 0-5 [facility] Erythrocyte distribution wid th (RBC) [Ratio]Ordered By: David Guerrae on 04-13-2024 Erythrocyte distribution width (RBC) [Entitic vol] 52.6 fL High 35.1-43.9 [facility] Erythrocyte distribution wid th ratioOrdered By: Frandyongbe Charliee on 04-13-2024 Erythrocyte distribution width (RBC) [Ratio] 14.6 % 11.6-14.6 [facility] Erythrocyte distribution wid th standard deviationOrdered By: Efwayneongbe Charliee on 04-13-2024 Erythrocyte distribution width (RBC) [Ratio] 52.6 fl High 35.1-43.9 [facility] Hematocrit Auto (Bld) [Volum e fraction]Ordered By: David Guerrae on 04-13-2024 Hematocrit (Bld) [Volume fraction] 47.5 % 40-54 [facility] Hemoglobin measurementOrdere d By: David Miramontes on 04-13-2024 Hemoglobin (Bld) [Mass/Vol] 15.1 g/dL 13.0-16.5 [facility] Immature granulocytes/100 WB C Auto (Bld)Ordered By: David Miramontes on 04-13-2024 Immature granulocytes/100 WBC (Bld) 0.300 % 0.0-0.9 [facility] Comment on above: IG% - Immature Granu locytes (promyelocytes, myelocytes and metamyelocytes) > 1% indicates that a LEFT SHIFT is Present. Lymphocytes Auto (Unsp spec) [#/Vol]Ordered By: David Miramontes on 04-13-2024 Lymphocytes (Bld) [#/Vol] 0.98 10*3/uL 0.83-4.51 [facility] Lymphocytes/100 WBC Auto (Un sp spec)Ordered By: David Miramontes on 04-13-2024 Lymphocytes/100 WBC (Bld) 11.0 % Low 19-41 [facility] MCV (mean corpuscular volume ) determinationOrdered By: David Miramontes on 04-13-2024 MCV (RBC) [Entitic vol] 98.3 fL High 80-94 [facility] Mean corpuscular hemoglobin (MCH) determinationOrdered By: David Miramontes on 04-13-2024 MCH (RBC) [Entitic mass] 31.3 pg 27.0-32.0 [facility] Mean corpuscular hemoglobin concentration (MCHC) determinationOrdered By: David Miramontes on 04-13-2024 MCHC (RBC) [Mass/Vol] 31.8 g/dL Low 32-36 [facility] Mean platelet volume determi nationOrdered By: David Miramontes on 04-13-2024 Platelet mean volume (Bld) [Entitic vol] 12.2 fL High 6.2-12.0 [facility] Monocyte percentageOrdered B y: David Miramontes on 04-13-2024 Monocytes/100 WBC (Bld) 9.3 % 0-10 [facility] Neutrophil percentageOrdered By: David Miramontes on 04-13-2024 Neutrophils/100 WBC (Bld) 78.0 % High 47-70 [facility] Nucleated red blood cell per centageOrdered By: David Miramontes on 04-13-2024 Nucleated RBC/100 WBC (Bld) [Ratio] 0 % 0-5 [facility] [facility] Platelet countOrdered By: Mayra Miramontes on 04-13-2024 Platelets (Bld) [#/Vol] 160 10*3/uL 150-450 [facility] RBC Auto (Bld) [#/Vol]Ordere d By: David Miramontes on 04-13-2024 RBC (Bld) [#/Vol] 4.83 10*6/uL 4.6-6.2 [facility] Serum or plasma uric acid me asurement (mass/volume)Ordered By: David Miramontes on 04-13-2024 Urate [Mass/Vol] 7.3 mg/dL High 3.5-7.2 [facility] Comment on above: The drugs N-Acetylcy steine and Metamizole may falsely depress this assay. White blood cell (WBC) count Ordered By: David Miramontes on 04-13-2024 WBC (Bld) [#/Vol] 8.9 10*3/uL 4.4-11.0 [facility] Bilirubin Test strip Ql (U)O rdered By: David Miramontes on 04-07-2024 Bilirubin Ql (U) Negative Negative [facility] Blood urea nitrogen (BUN)/cr eatinine ratioOrdered By: David Miramontes on 04-07-2024 Urea nitrogen/Creatinine [Mass ratio] 15.7 mg/mg 10-20 [facility] Carbon dioxide measurementOr dered By: David Miramontes on 04-07-2024 CO2 [Moles/Vol] 27.0 mmol/L 21.0-32.0 [facility] Chloride measurementOrdered By: David Miramontes on 04-07-2024 Chloride [Moles/Vol] 107 mmol/L 98-107 [facility] Estimated glomerular filtrat ion rate (GFR) AmericanOrdered By: David Miramontes on 04-07-2024 Estimated GFR (MDRD) Amer 69 mL/min >60 [facility] Comment on above: GFR Calc Glomerular filtration rate ( GFR) estimationOrdered By: David Miramontes on 04-07-2024 Estimated GFR (MDRD) Non-Af Amer 57 mL/min Low >60 [facility] Comment on above: Non- GFR Calc GFR/1.73 sq M.predicted among non-blacks MDRD (S/P/Bld) [Vol rate/Area] 57 mL/min/{1.73_m2} Low >60 [facility] Comment on above: Non- GFR Calc Glucose Ql (U)Ordered By: Mayra Miramontes on 04-07-2024 Urine Glucose (UA) Normal mg/dl Normal [facility] Glucose measurementOrdered B y: David Miramontes on 04-07-2024 Glucose [Mass/Vol] 80 mg/dL 74-106 [facility] Ketones Test strip Ql (U)Ord ered By: David Miramontes on 04-07-2024 Ketones Ql (U) Negative Negative [facility] Nitrite Test strip Ql (U)Ord ered By: David Miramontes on 04-07-2024 Nitrite Ql (U) Negative Negative [facility] Potassium measurementOrdered By: David Miramontes on 04-07-2024 Potassium [Moles/Vol] 3.8 mmol/L 3.5-5.1 [facility] Comment on above: Slight Hemolysis, Re sult may be falsely increased. Protein Test strip Ql (U)Ord ered By: David Miramontes on 04-07-2024 Protein Ql (U) 30 mg/dl High Negative [facility] Serum anion gap measurementO rdered By: David Miramontes on 04-07-2024 Anion gap [Moles/Vol] 9 mmol/L 5-15 [facility] Serum or plasma calcium siobhan urement (mass/volume)Ordered By: David Miramontes on 04-07-2024 Calcium [Mass/Vol] 8.9 mg/dL 8.5-10.1 [facility] Serum or plasma creatinine m easurement (mass/volume)Ordered By: David Miramontes on 04-07-2024 Creatinine [Mass/Vol] 1.27 mg/dL 0.70-1.30 [facility] Comment on above: The validity of the calculated GFR & GFRAA in patients over 70 years has not been determined. Clinical correlation is essential. Serum or plasma urea nitroge n measurement (mass/volume)Ordered By: David Miramontes on 04-07-2024 Urea nitrogen [Mass/Vol] 20 mg/dL High 7-18 [facility] Serum or plasma uric acid me asurement (mass/volume)Ordered By: David Miramontes on 04-07-2024 Urate [Mass/Vol] 7.7 mg/dL High 3.5-7.2 [facility] Comment on above: The drugs N-Acetylcy steine and Metamizole may falsely depress this assay. Sodium levelOrdered By: Frandy Miramontes on 04-07-2024 Sodium [Moles/Vol] 143 mmol/L 136-145 [facility] Urine blood detectionOrdered By: David Miramontes on 04-07-2024 Urine Occult Blood 250 /ul High Negative [facility] Urine clarityOrdered By: Lg Miramontes on 04-07-2024 Clarity (U) Clear Clear [facility] Urine color determinationOrd ered By: David Miramontes on 04-07-2024 Color (U) Straw Yellow [facility] Urine cultureOrdered By: Lg Miramontes on 04-07-2024 Bacteria identified Cx Nom (U) Negative Abnormal [facility] Urine glucose detectionOrder ed By: David Miramontes on 04-07-2024 Glucose Ql (U) Normal mg/dl Normal [facility] Urine leukocyte esterase det ection by dipstickOrdered By: David Miramontes on 04-07-2024 Leukocyte esterase Test strip Ql (U) 25 /ul High Negative [facility] Urine pHOrdered By: Leo Miramontes on 04-07-2024 pH (U) 6.5 [pH] 5.0 - 8.0 [facility] Urine specific gravity measu rementOrdered By: Frandyfeliciaingris Pinkamnatereza on 04-07-2024 Specific gravity (U) [Rel density] 1.005 1.002-1.030 [facility] Urine urobilinogen measureme ntOrdered By: David Pinkamnatereza on 04-07-2024 Urobilinogen Ql (U) Normal mg/dl Normal [facility] Urobilinogen Ql (U)Ordered B y: Mayradanay Joesphamnatereza on 04-07-2024 Urine Urobilinogen Normal mg/dl Normal [facility] Absolute lymphocyte countOrd ered By: David Miramontes on 04-04-2024 Lymphocytes Auto (Unsp spec) [#/Vol] 0.82 10*3/uL Low 0.83-4.51 [facility] Absolute neutrophil countOrd ered By: David Miramontes on 04-04-2024 Neutrophils (Bld) [#/Vol] 11.6 10*3/uL High 2.0-7.7 [facility] Automated lymphocyte count a s percentage of total leukocytesOrdered By: David Miramontes on 04-04-2024 Lymphocytes/100 WBC Auto (Unsp spec) 5.9 % Low 19-41 [facility] Basophil percentageOrdered B y: Vickyingris Pinkamnatereza on 04-04-2024 Basophils/100 WBC (Bld) 0.2 % 0-1 [facility] Blood urea nitrogen (BUN)/cr eatinine ratioOrdered By: David Miramontes on 04-04-2024 Urea nitrogen/Creatinine [Mass ratio] 9.6 mg/mg Low 10-20 [facility] Carbon dioxide measurementOr dered By: David Pinkamnatereza on 04-04-2024 CO2 [Moles/Vol] 26.0 mmol/L 21.0-32.0 [facility] Chloride measurementOrdered By: David Pinkamnatereza on 04-04-2024 Chloride [Moles/Vol] 105 mmol/L 98-107 [facility] Eosinophil percentageOrdered By: David Pinkamnatereza on 04-04-2024 Eosinophils/100 WBC (Bld) 0.0 % 0-5 [facility] Erythrocyte distribution wid th (RBC) [Ratio]Ordered By: David Miramontes on 04-04-2024 Erythrocyte distribution width (RBC) [Entitic vol] 55.2 fL High 35.1-43.9 [facility] Erythrocyte distribution wid th ratioOrdered By: danay Miramontes on 04-04-2024 Erythrocyte distribution width (RBC) [Ratio] 15.2 % High 11.6-14.6 [facility] Erythrocyte distribution wid th standard deviationOrdered By: danay Miramontes on 04-04-2024 Erythrocyte distribution width (RBC) [Ratio] 55.2 fl High 35.1-43.9 [facility] Estimated glomerular filtrat ion rate (GFR) AmericanOrdered By: David Miramontes on 04-04-2024 Estimated GFR (MDRD) Amer 47 mL/min Low >60 [facility] Comment on above: GFR Calc Glomerular filtration rate ( GFR) estimationOrdered By: David Miramontes on 04-04-2024 Estimated GFR (MDRD) Non-Af Amer 39 mL/min Low >60 [facility] Comment on above: Non- GFR Calc GFR/1.73 sq M.predicted among non-blacks MDRD (S/P/Bld) [Vol rate/Area] 39 mL/min/{1.73_m2} Low >60 [facility] Comment on above: Non- GFR Calc Glucose measurementOrdered B y: David Miramontes on 04-04-2024 Glucose [Mass/Vol] 119 mg/dL High 74-106 [facility] Comment on above: Fasting Glucose resu lt from 100 to 125 mg/dL suggests IMPAIRED HOMEOSTASIS per A.D.A. criteria. Hematocrit Auto (Bld) [Volum e fraction]Ordered By: David Miramontes on 04-04-2024 Hematocrit (Bld) [Volume fraction] 49.2 % 40-54 [facility] Hemoglobin measurementOrdere d By: David Miramontes on 04-04-2024 Hemoglobin (Bld) [Mass/Vol] 15.9 g/dL 13.0-16.5 [facility] Immature granulocytes/100 WB C Auto (Bld)Ordered By: David Miramontes on 04-04-2024 Immature granulocytes/100 WBC (Bld) 0.500 % 0.0-0.9 [facility] Comment on above: IG% - Immature Granu locytes (promyelocytes, myelocytes and metamyelocytes) > 1% indicates that a LEFT SHIFT is Present. Lymphocytes Auto (Unsp spec) [#/Vol]Ordered By: David Miramontes on 04-04-2024 Lymphocytes (Bld) [#/Vol] 0.82 10*3/uL Low 0.83-4.51 [facility] Lymphocytes/100 WBC Auto (Un sp spec)Ordered By: David Miramontes on 04-04-2024 Lymphocytes/100 WBC (Bld) 5.9 % Low 19-41 [facility] MCV (mean corpuscular volume ) determinationOrdered By: David Miramontes on 04-04-2024 MCV (RBC) [Entitic vol] 98.4 fL High 80-94 [facility] Mean corpuscular hemoglobin (MCH) determinationOrdered By: waynesummitingris Miramontes on 04-04-2024 MCH (RBC) [Entitic mass] 31.8 pg 27.0-32.0 [facility] Mean corpuscular hemoglobin concentration (MCHC) determinationOrdered By: David Miramontes on 04-04-2024 MCHC (RBC) [Mass/Vol] 32.3 g/dL 32-36 [facility] Mean platelet volume determi nationOrdered By: David Miramontes on 04-04-2024 Platelet mean volume (Bld) [Entitic vol] 12.5 fL High 6.2-12.0 [facility] Monocyte percentageOrdered B y: David Miramontes on 04-04-2024 Monocytes/100 WBC (Bld) 9.9 % 0-10 [facility] Neutrophil percentageOrdered By: David Miramontes on 04-04-2024 Neutrophils/100 WBC (Bld) 83.5 % High 47-70 [facility] Nucleated red blood cell per centageOrdered By: David Miramontes on 04-04-2024 Nucleated RBC/100 WBC (Bld) [Ratio] 0 % 0-5 [facility] Platelet countOrdered By: danay Miramontes on 04-04-2024 Platelets (Bld) [#/Vol] 209 10*3/uL 150-450 [facility] Potassium measurementOrdered By: David Miramontes on 04-04-2024 Potassium [Moles/Vol] 4.2 mmol/L 3.5-5.1 [facility] Comment on above: Slight Hemolysis, Re sult may be falsely increased. RBC Auto (Bld) [#/Vol]Ordere d By: David Joesphiman on 04-04-2024 RBC (Bld) [#/Vol] 5.00 10*6/uL 4.6-6.2 [facility] Serum anion gap measurementO rdered By: David Miramontes on 04-04-2024 Anion gap [Moles/Vol] 8 mmol/L 5-15 [facility] Serum or plasma calcium siobhan urement (mass/volume)Ordered By: David Joesphiman on 04-04-2024 Calcium [Mass/Vol] 9.6 mg/dL 8.5-10.1 [facility] Serum or plasma creatinine m easurement (mass/volume)Ordered By: David Joesphiman on 04-04-2024 Creatinine [Mass/Vol] 1.77 mg/dL High 0.70-1.30 [facility] Comment on above: The validity of the calculated GFR & GFRAA in patients over 70 years has not been determined. Clinical correlation is essential. Serum or plasma urea nitroge n measurement (mass/volume)Ordered By: Vickyingris Pinkamnatereza on 04-04-2024 Urea nitrogen [Mass/Vol] 17 mg/dL 7-18 [facility] Sodium levelOrdered By: Frandy Miramontes on 04-04-2024 Sodium [Moles/Vol] 139 mmol/L 136-145 [facility] White blood cell (WBC) count Ordered By: David Joesphiman on 04-04-2024 WBC (Bld) [#/Vol] 13.9 10*3/uL High 4.4-11.0 [facility] Absolute lymphocyte countOrd ered By: David Miramontes on 04-06-2023 Lymphocytes Auto (Unsp spec) [#/Vol] 1.24 10*3/uL 0.83-4.51 [facility] Automated lymphocyte count a s percentage of total leukocytesOrdered By: David Miramontes on 04-06-2023 Lymphocytes/100 WBC Auto (Unsp spec) 18.7 % 19-41 [facility] Basophil percentageOrdered B y: David Miramontes on 04-06-2023 Basophils/100 WBC (Bld) 0.5 % 0-1 [facility] Chloride [Moles/Vol] 109 mmol/L 98-107 [facility] Eosinophils/100 WBC (Bld) 1.7 % 0-5 [facility] Glucose [Mass/Vol] 90 mg/dL 74-106 [facility] Hemoglobin (Bld) [Mass/Vol] 15.4 g/dL 13.0-16.5 [facility] Monocytes/100 WBC (Bld) 9.4 % 0-10 [facility] Neutrophils (Bld) [#/Vol] 4.6 10*3/uL 2.0-7.7 [facility] Neutrophils/100 WBC (Bld) 69.2 % 47-70 [facility] Potassium [Moles/Vol] 3.7 mmol/L 3.5-5.1 [facility] Sodium [Moles/Vol] 141 mmol/L 136-145 [facility] WBC (Bld) [#/Vol] 6.6 10*3/uL 4.4-11.0 [facility] Determination of erythrocyte mean corpuscular volume (MCV)Ordered By: David Miramontes on 04-06-2023 MCV (RBC) [Entitic vol] 98.2 fL 80-94 [facility] Erythrocyte distribution wid th ratioOrdered By: David Miramontes on 04-06-2023 Erythrocyte distribution width (RBC) [Ratio] 14.4 % 11.6-14.6 [facility] Erythrocyte distribution wid th standard deviationOrdered By: David Miramontes on 04-06-2023 Erythrocyte distribution width (RBC) [Entitic vol] 51.7 fL 35.1-43.9 [facility] Hematocrit Auto (Bld) [Volum e fraction]Ordered By: David Miramontes on 04-06-2023 Hematocrit (Bld) [Volume fraction] 49.2 % 40-54 [facility] Immature granulocytes/100 WB C Auto (Bld)Ordered By: David Miramontes on 04-06-2023 Immature granulocytes/100 WBC (Bld) 0.500 % 0.0-0.9 [facility] Comment on above: IG% - Immature Granu locytes (promyelocytes, myelocytes and metamyelocytes) > 1% indicates that a LEFT SHIFT is Present. Laboratory - Chemistry and C hemistry - challengeOrdered By: David Miramontes on 04-06-2023 CO2 [Moles/Vol] 27.0 mmol/L 21.0-32.0 [facility] Urea nitrogen/Creatinine [Mass ratio] 15.0 mg/mg 10-20 [facility] Laboratory - Hematology and Cell countsOrdered By: David Miramontes on 04-06-2023 MCH (RBC) [Entitic mass] 30.7 pg 27.0-32.0 [facility] MCHC (RBC) [Mass/Vol] 31.3 g/dL 32-36 [facility] Nucleated RBC/100 WBC (Bld) [Ratio] 0 % 0-5 [facility] Platelet mean volume (Bld) [Entitic vol] 11.5 fL 6.2-12.0 [facility] Platelets (Bld) [#/Vol] 189 10*3/uL 150-450 [facility] No Panel InformationOrdered By: David Miramontes on 04-06-2023 Estimated GFR (MDRD) Amer 85 mL/min >60 [facility] Comment on above: GFR Calc Estimated GFR (MDRD) Non-Af Amer 70 mL/min >60 [facility] Comment on above: Non- GFR Calc RBC Auto (Bld) [#/Vol]Ordere d By: David Miramontes on 04-06-2023 RBC (Bld) [#/Vol] 5.01 10*6/uL 4.6-6.2 [facility] Serum or plasma calcium siobhan urement (mass/volume)Ordered By: David Miramontes on 04-06-2023 Calcium [Mass/Vol] 9.1 mg/dL 8.5-10.1 [facility] Serum or plasma creatinine m easurement (mass/volume)Ordered By: David Miramontes on 04-06-2023 Creatinine [Mass/Vol] 1.07 mg/dL 0.70-1.30 [facility] Comment on above: The validity of the calculated GFR & GFRAA in patients over 70 years has not been determined. Clinical correlation is essential. Serum or plasma urea nitroge n measurement (mass/volume)Ordered By: David Miramontes on 04-06-2023 Urea nitrogen [Mass/Vol] 16 mg/dL 7-18 [facility] Thin prep Papanicolaou smear with manual screeningOrdered By: [facility] on 04-06-2023 Thin prep Papanicolaou smear with manual screening 5 5-15 [facility] Absolute lymphocyte countOrd ered By: danay Miramontes on 12-30-2022 Lymphocytes Auto (Unsp spec) [#/Vol] 1.16 10*3/uL 0.83-4.51 [facility] Basophil percentageOrdered B y: David Miramontes on 12-30-2022 Basophils/100 WBC (Bld) 0.4 % 0-1 [facility] Chloride [Moles/Vol] 109 mmol/L 98-107 [facility] Eosinophils/100 WBC (Bld) 1.3 % 0-5 [facility] Glucose [Mass/Vol] 84 mg/dL 74-106 [facility] Neutrophils (Bld) [#/Vol] 5.4 10*3/uL 2.0-7.7 [facility] Neutrophils/100 WBC (Bld) 72.7 % 47-70 [facility] Potassium [Moles/Vol] 3.6 mmol/L 3.5-5.1 [facility] Sodium [Moles/Vol] 142 mmol/L 136-145 [facility] WBC (Bld) [#/Vol] 7.4 10*3/uL 4.4-11.0 [facility] Blood erythrocytes count (nu mber/volume)Ordered By: David Miramontes on 12-30-2022 RBC (Bld) [#/Vol] 4.15 10*6/uL 4.6-6.2 [facility] Blood hemoglobin measurement (mass/volume)Ordered By: David Miramontes on 12-30-2022 Hemoglobin (Bld) [Mass/Vol] 13.0 g/dL 13.0-16.5 [facility] Blood lymphocytes/100 leukoc ytesOrdered By: waynesummitingris Miramontes on 12-30-2022 Lymphocytes/100 WBC (Bld) 15.6 % 19-41 [facility] Blood monocytes/100 leukocyt esOrdered By: David Miramontes on 12-30-2022 Monocytes/100 WBC (Bld) 9.6 % 0-10 [facility] Blood platelet mean volumeOr dered By: David Miramontes on 12-30-2022 Platelet mean volume (Bld) [Entitic vol] 11.6 fL 6.2-12.0 [facility] Determination of erythrocyte mean corpuscular volume (MCV)Ordered By: David Miramontes on 12-30-2022 MCV (RBC) [Entitic vol] 99.5 fL 80-94 [facility] Hematocrit Auto (Bld) [Volum e fraction]Ordered By: David Miramontes on 12-30-2022 Hematocrit (Bld) [Volume fraction] 41.3 % 40-54 [facility] Laboratory - Chemistry and C hemistry - challengeOrdered By: David Miramontes on 12-30-2022 CO2 [Moles/Vol] 27.0 mmol/L 21.0-32.0 [facility] Urea nitrogen/Creatinine [Mass ratio] 11.6 mg/mg 10-20 [facility] Laboratory - Hematology and Cell countsOrdered By: David Miramontes on 12-30-2022 Erythrocyte distribution width (RBC) [Entitic vol] 51.5 fL 35.1-43.9 [facility] Erythrocyte distribution width (RBC) [Ratio] 14.2 % 11.6-14.6 [facility] Immature granulocytes/100 WBC (Bld) 0.400 % 0.0-0.9 [facility] Comment on above: IG% - Immature Granu locytes (promyelocytes, myelocytes and metamyelocytes) > 1% indicates that a LEFT SHIFT is Present. MCH (RBC) [Entitic mass] 31.3 pg 27.0-32.0 [facility] Nucleated RBC/100 WBC (Bld) [Ratio] 0 % 0-5 [facility] MCHC Auto (RBC) [Mass/Vol]Or dered By: David Miramontes on 12-30-2022 MCHC (RBC) [Mass/Vol] 31.5 g/dL 32-36 [facility] No Panel InformationOrdered By: David Miramontes on 12-30-2022 Estimated GFR (MDRD) Amer 108 mL/min >60 [facility] Comment on above: GFR Calc Estimated GFR (MDRD) Non-Af Amer 90 mL/min >60 [facility] Comment on above: Non- GFR Calc Platelets bldOrdered By: Lg Miramontes on 12-30-2022 Platelets (Bld) [#/Vol] 165 10*3/uL 150-450 [facility] Serum or plasma calcium siobhan urement (mass/volume)Ordered By: David Miramontes on 12-30-2022 Calcium [Mass/Vol] 8.3 mg/dL 8.5-10.1 [facility] Serum or plasma creatinine m easurement (mass/volume)Ordered By: David Miramontes on 12-30-2022 Creatinine [Mass/Vol] 0.86 mg/dL 0.70-1.30 [facility] Comment on above: The validity of the calculated GFR & GFRAA in patients over 70 years has not been determined. Clinical correlation is essential. Serum or plasma urea nitroge n measurement (mass/volume)Ordered By: David Miramontes on 12-30-2022 Urea nitrogen [Mass/Vol] 10 mg/dL 7-18 [facility] Thin prep Papanicolaou smear with manual screeningOrdered By: David Miramontes on 12-30-2022 Thin prep Papanicolaou smear with manual screening 6 5-15 [facility] Absolute lymphocyte countOrd ered By: David Miramontes on 09-29-2022 Lymphocytes Auto (Unsp spec) [#/Vol] 1.19 10*3/uL 0.83-4.51 [facility] Basophil percentageOrdered B y: David Miramontes on 09-29-2022 Basophils/100 WBC (Bld) 0.2 % 0-1 [facility] Chloride [Moles/Vol] 109 mmol/L 98-107 [facility] Eosinophils/100 WBC (Bld) 0.1 % 0-5 [facility] Glucose [Mass/Vol] 100 mg/dL 74-106 [facility] Comment on above: Fasting Glucose resu lt from 100 to 125 mg/dL suggests IMPAIRED HOMEOSTASIS per A.D.A. criteria. Neutrophils (Bld) [#/Vol] 8.4 10*3/uL 2.0-7.7 [facility] Neutrophils/100 WBC (Bld) 80.3 % 47-70 [facility] Potassium [Moles/Vol] 4.0 mmol/L 3.5-5.1 [facility] Sodium [Moles/Vol] 141 mmol/L 136-145 [facility] WBC (Bld) [#/Vol] 10.4 10*3/uL 4.4-11.0 [facility] Blood erythrocytes count (nu mber/volume)Ordered By: David Miramontes on 09-29-2022 RBC (Bld) [#/Vol] 4.62 10*6/uL 4.6-6.2 [facility] Blood hemoglobin measurement (mass/volume)Ordered By: David Miramontes on 09-29-2022 Hemoglobin (Bld) [Mass/Vol] 14.6 g/dL 13.0-16.5 [facility] Blood lymphocytes/100 leukoc ytesOrdered By: David Miramontes on 09-29-2022 Lymphocytes/100 WBC (Bld) 11.5 % 19-41 [facility] Blood monocytes/100 leukocyt esOrdered By: David Miramontes on 09-29-2022 Monocytes/100 WBC (Bld) 7.3 % 0-10 [facility] Blood platelet mean volumeOr dered By: David Miramontes on 09-29-2022 Platelet mean volume (Bld) [Entitic vol] 11.5 fL 6.2-12.0 [facility] Determination of erythrocyte mean corpuscular volume (MCV)Ordered By: David Miramontes on 09-29-2022 MCV (RBC) [Entitic vol] 99.4 fL 80-94 [facility] Hematocrit Auto (Bld) [Volum e fraction]Ordered By: Frandysummitingris Miramontes on 09-29-2022 Hematocrit (Bld) [Volume fraction] 45.9 % 40-54 [facility] Laboratory - Chemistry and C hemistry - challengeOrdered By: waynesummitingris Miramontes on 09-29-2022 CO2 [Moles/Vol] 28.0 mmol/L 21.0-32.0 [facility] Urea nitrogen/Creatinine [Mass ratio] 13.8 mg/mg 10-20 [facility] Laboratory - Hematology and Cell countsOrdered By: [facility] on 09-29-2022 Erythrocyte distribution width (RBC) [Entitic vol] 51.7 fL 35.1-43.9 [facility] Erythrocyte distribution width (RBC) [Ratio] 14.2 % 11.6-14.6 [facility] Immature granulocytes/100 WBC (Bld) 0.600 % 0.0-0.9 [facility] Comment on above: IG% - Immature Granu locytes (promyelocytes, myelocytes and metamyelocytes) > 1% indicates that a LEFT SHIFT is Present. MCH (RBC) [Entitic mass] 31.6 pg 27.0-32.0 [facility] Nucleated RBC/100 WBC (Bld) [Ratio] 0 % 0-5 [facility] MCHC Auto (RBC) [Mass/Vol]Or dered By: David Miramontes on 09-29-2022 MCHC (RBC) [Mass/Vol] 31.8 g/dL 32-36 [facility] No Panel InformationOrdered By: David Miramontes on 09-29-2022 Estimated GFR (MDRD) Amer 98 mL/min >60 [facility] Comment on above: GFR Calc Estimated GFR (MDRD) Non-Af Amer 81 mL/min >60 [facility] Comment on above: Non- GFR Calc Platelets bldOrdered By: Lg Miramontes on 09-29-2022 Platelets (Bld) [#/Vol] 185 10*3/uL 150-450 [facility] Serum or plasma calcium siobhan urement (mass/volume)Ordered By: David Miramontes on 09-29-2022 Calcium [Mass/Vol] 8.9 mg/dL 8.5-10.1 [facility] Serum or plasma creatinine m easurement (mass/volume)Ordered By: David Miramontes on 09-29-2022 Creatinine [Mass/Vol] 0.94 mg/dL 0.70-1.30 [facility] Comment on above: The validity of the calculated GFR & GFRAA in patients over 70 years has not been determined. Clinical correlation is essential. Serum or plasma urea nitroge n measurement (mass/volume)Ordered By: David Miramontes on 09-29-2022 Urea nitrogen [Mass/Vol] 13 mg/dL 7-18 [facility] Thin prep Papanicolaou smear with manual screeningOrdered By: David Miramontes on 09-29-2022 Thin prep Papanicolaou smear with manual screening 4 5-15 [facility] Absolute lymphocyte countOrd ered By: David Miramontes on 06-29-2022 Lymphocytes Auto (Unsp spec) [#/Vol] 1.43 10*3/uL 0.83-4.51 [facility] Basophil percentageOrdered B y: David Miramontes on 06-29-2022 Basophils/100 WBC (Bld) 0.6 % 0-1 [facility] Chloride [Moles/Vol] 107 mmol/L 98-107 [facility] Eosinophils/100 WBC (Bld) 1.5 % 0-5 [facility] Glucose [Mass/Vol] 85 mg/dL 74-106 [facility] Neutrophils (Bld) [#/Vol] 4.4 10*3/uL 2.0-7.7 [facility] Neutrophils/100 WBC (Bld) 65.4 % 47-70 [facility] Potassium [Moles/Vol] 3.6 mmol/L 3.5-5.1 [facility] Sodium [Moles/Vol] 140 mmol/L 136-145 [facility] WBC (Bld) [#/Vol] 6.7 10*3/uL 4.4-11.0 [facility] Blood erythrocytes count (nu mber/volume)Ordered By: David Miramontes on 06-29-2022 RBC (Bld) [#/Vol] 4.55 10*6/uL 4.6-6.2 [facility] Blood hemoglobin measurement (mass/volume)Ordered By: David Miramontes on 06-29-2022 Hemoglobin (Bld) [Mass/Vol] 14.5 g/dL 13.0-16.5 [facility] Blood lymphocytes/100 leukoc ytesOrdered By: David Miramontes on 06-29-2022 Lymphocytes/100 WBC (Bld) 21.5 % 19-41 [facility] Blood monocytes/100 leukocyt esOrdered By: David Miramontes on 06-29-2022 Monocytes/100 WBC (Bld) 10.7 % 0-10 [facility] Blood platelet mean volumeOr dered By: David Miramontes on 06-29-2022 Platelet mean volume (Bld) [Entitic vol] 11.2 fL 6.2-12.0 [facility] Determination of erythrocyte mean corpuscular volume (MCV)Ordered By: David Miramontes on 06-29-2022 MCV (RBC) [Entitic vol] 98.9 fL 80-94 [facility] Hematocrit Auto (Bld) [Volum e fraction]Ordered By: David Miramontes on 06-29-2022 Hematocrit (Bld) [Volume fraction] 45.0 % 40-54 [facility] Laboratory - Chemistry and C hemistry - challengeOrdered By: David Miramontes on 06-29-2022 CO2 [Moles/Vol] 30.0 mmol/L 21.0-32.0 [facility] Urea nitrogen/Creatinine [Mass ratio] 13.6 mg/mg 10-20 [facility] Laboratory - Hematology and Cell countsOrdered By: David Miramontes on 06-29-2022 Erythrocyte distribution width (RBC) [Entitic vol] 51.6 fL 35.1-43.9 [facility] Erythrocyte distribution width (RBC) [Ratio] 14.3 % 11.6-14.6 [facility] Immature granulocytes/100 WBC (Bld) 0.300 % 0.0-0.9 [facility] Comment on above: IG% - Immature Granu locytes (promyelocytes, myelocytes and metamyelocytes) > 1% indicates that a LEFT SHIFT is Present. MCH (RBC) [Entitic mass] 31.9 pg 27.0-32.0 [facility] Nucleated RBC/100 WBC (Bld) [Ratio] 0 % 0-5 [facility] MCHC Auto (RBC) [Mass/Vol]Or dered By: David Miramontes on 06-29-2022 MCHC (RBC) [Mass/Vol] 32.2 g/dL 32-36 [facility] No Panel InformationOrdered By: David Miramontes on 06-29-2022 Estimated GFR (MDRD) Amer 89 mL/min >60 [facility] Comment on above: GFR Calc Estimated GFR (MDRD) Non-Af Amer 73 mL/min >60 [facility] Comment on above: Non- GFR Calc Platelets bldOrdered By: Lg Miramontes on 06-29-2022 Platelets (Bld) [#/Vol] 161 10*3/uL 150-450 [facility] Serum or plasma calcium siobhan urement (mass/volume)Ordered By: David Miramontes on 06-29-2022 Calcium [Mass/Vol] 8.7 mg/dL 8.5-10.1 [facility] Serum or plasma creatinine m easurement (mass/volume)Ordered By: David Miramontes on 06-29-2022 Creatinine [Mass/Vol] 1.03 mg/dL 0.70-1.30 [facility] Comment on above: The validity of the calculated GFR & GFRAA in patients over 70 years has not been determined. Clinical correlation is essential. Serum or plasma urea nitroge n measurement (mass/volume)Ordered By: David Miramontes on 06-29-2022 Urea nitrogen [Mass/Vol] 14 mg/dL 7-18 [facility] Thin prep Papanicolaou smear with manual screeningOrdered By: David Miramontes on 06-29-2022 Thin prep Papanicolaou smear with manual screening 3 5-15 [facility] Absolute lymphocyte countOrd ered By: David Miramontes on 04-01-2022 Lymphocytes Auto (Unsp spec) [#/Vol] 1.25 10*3/uL 0.83-4.51 [facility] Basophil percentageOrdered B y: David Miramontes on 04-01-2022 Basophils/100 WBC (Bld) 0.4 % 0-1 [facility] Chloride [Moles/Vol] 108 mmol/L 98-107 [facility] Eosinophils/100 WBC (Bld) 1.5 % 0-5 [facility] Glucose [Mass/Vol] 106 mg/dL 74-106 [facility] Comment on above: Fasting Glucose resu lt from 100 to 125 mg/dL suggests IMPAIRED HOMEOSTASIS per A.D.A. criteria. Neutrophils (Bld) [#/Vol] 4.7 10*3/uL 2.0-7.7 [facility] Neutrophils/100 WBC (Bld) 69.1 % 47-70 [facility] Potassium [Moles/Vol] 3.6 mmol/L 3.5-5.1 [facility] Sodium [Moles/Vol] 143 mmol/L 136-145 [facility] WBC (Bld) [#/Vol] 6.8 10*3/uL 4.4-11.0 [facility] Blood erythrocytes count (nu mber/volume)Ordered By: David Miramontes on 04-01-2022 RBC (Bld) [#/Vol] 4.69 10*6/uL 4.6-6.2 [facility] Blood hemoglobin measurement (mass/volume)Ordered By: David Miramontes on 04-01-2022 Hemoglobin (Bld) [Mass/Vol] 14.8 g/dL 13.0-16.5 [facility] Blood lymphocytes/100 leukoc ytesOrdered By: David Miramontes on 04-01-2022 Lymphocytes/100 WBC (Bld) 18.5 % 19-41 [facility] Blood monocytes/100 leukocyt esOrdered By: David Miramontes on 04-01-2022 Monocytes/100 WBC (Bld) 10.2 % 0-10 [facility] Blood platelet mean volumeOr dered By: David Miramontes on 04-01-2022 Platelet mean volume (Bld) [Entitic vol] 11.5 fL 6.2-12.0 [facility] Determination of erythrocyte mean corpuscular volume (MCV)Ordered By: David Miramontes on 04-01-2022 MCV (RBC) [Entitic vol] 97.0 fL 80-94 [facility] Hematocrit Auto (Bld) [Volum e fraction]Ordered By: David Miramontes on 04-01-2022 Hematocrit (Bld) [Volume fraction] 45.5 % 40-54 [facility] Laboratory - Chemistry and C hemistry - challengeOrdered By: waynesummitingris Miramontes on 04-01-2022 CO2 [Moles/Vol] 29.0 mmol/L 21.0-32.0 [facility] Urea nitrogen/Creatinine [Mass ratio] 13.0 mg/mg 10-20 [facility] Laboratory - Hematology and Cell countsOrdered By: David Miramontes on 04-01-2022 Erythrocyte distribution width (RBC) [Entitic vol] 51.1 fL 35.1-43.9 [facility] Erythrocyte distribution width (RBC) [Ratio] 14.4 % 11.6-14.6 [facility] Immature granulocytes/100 WBC (Bld) 0.300 % 0.0-0.9 [facility] Comment on above: IG% - Immature Granu locytes (promyelocytes, myelocytes and metamyelocytes) > 1% indicates that a LEFT SHIFT is Present. MCH (RBC) [Entitic mass] 31.6 pg 27.0-32.0 [facility] Nucleated RBC/100 WBC (Bld) [Ratio] 0 % 0-5 [facility] MCHC Auto (RBC) [Mass/Vol]Or dered By: David Miramontes on 04-01-2022 MCHC (RBC) [Mass/Vol] 32.5 g/dL 32-36 [facility] No Panel InformationOrdered By: David Miramontes on 04-01-2022 Estimated GFR (MDRD) Amer 92 mL/min >60 [facility] Comment on above: GFR Calc Estimated GFR (MDRD) Non-Af Amer 76 mL/min >60 [facility] Comment on above: Non- GFR Calc Platelets bldOrdered By: Lg Miramontes on 04-01-2022 Platelets (Bld) [#/Vol] 167 10*3/uL 150-450 [facility] Serum or plasma calcium siobhan urement (mass/volume)Ordered By: David Miramontes on 04-01-2022 Calcium [Mass/Vol] 9.1 mg/dL 8.5-10.1 [facility] Serum or plasma creatinine m easurement (mass/volume)Ordered By: David Miramontes on 04-01-2022 Creatinine [Mass/Vol] 1.00 mg/dL 0.70-1.30 [facility] Comment on above: The validity of the calculated GFR & GFRAA in patients over 70 years has not been determined. Clinical correlation is essential. Serum or plasma urea nitroge n measurement (mass/volume)Ordered By: David Miramontes on 04-01-2022 Urea nitrogen [Mass/Vol] 13 mg/dL 7-18 [facility] Thin prep Papanicolaou smear with manual screeningOrdered By: David Miramontes on 04-01-2022 Thin prep Papanicolaou smear with manual screening 6 5-15 [facility] Absolute lymphocyte countOrd ered By: Jhonny Tomas on 01-07-2022 Lymphocytes Auto (Unsp spec) [#/Vol] 1.54 10*3/uL 0.83-4.51 [facility] Basophil percentageOrdered B y: Jhonny Tomas on 01-07-2022 Basophils/100 WBC (Bld) 0.3 % 0-1 [facility] Chloride [Moles/Vol] 104 mmol/L 98-107 [facility] Eosinophils/100 WBC (Bld) 1.9 % 0-5 [facility] Glucose [Mass/Vol] 89 mg/dL 74-106 [facility] Neutrophils (Bld) [#/Vol] 4.8 10*3/uL 2.0-7.7 [facility] Neutrophils/100 WBC (Bld) 66.5 % 47-70 [facility] Potassium [Moles/Vol] 4.1 mmol/L 3.5-5.1 [facility] Sodium [Moles/Vol] 141 mmol/L 136-145 [facility] WBC (Bld) [#/Vol] 7.2 10*3/uL 4.4-11.0 [facility] Blood erythrocytes count (nu mber/volume)Ordered By: Jhonny Tomas on 01-07-2022 RBC (Bld) [#/Vol] 4.80 10*6/uL 4.6-6.2 [facility] Blood hemoglobin measurement (mass/volume)Ordered By: Jhonny Tomas on 01-07-2022 Hemoglobin (Bld) [Mass/Vol] 15.2 g/dL 13.0-16.5 [facility] Blood lymphocytes/100 leukoc ytesOrdered By: Jhonny Tomas on 01-07-2022 Lymphocytes/100 WBC (Bld) 21.3 % 19-41 [facility] Blood monocytes/100 leukocyt esOrdered By: Jhonny Tomas on 01-07-2022 Monocytes/100 WBC (Bld) 9.7 % 0-10 [facility] Blood platelet mean volumeOr dered By: Jhonny Tomas on 01-07-2022 Platelet mean volume (Bld) [Entitic vol] 11.2 fL 6.2-12.0 [facility] Determination of erythrocyte mean corpuscular volume (MCV)Ordered By: Jhonny Tomas on 01-07-2022 MCV (RBC) [Entitic vol] 97.3 fL 80-94 [facility] Hematocrit Auto (Bld) [Volum e fraction]Ordered By: Jhonny Tomas on 01-07-2022 Hematocrit (Bld) [Volume fraction] 46.7 % 40-54 [facility] Laboratory - Chemistry and C hemistry - challengeOrdered By: Jhonny Tomas on 01-07-2022 CO2 [Moles/Vol] 29.0 mmol/L 21.0-32.0 [facility] Urea nitrogen/Creatinine [Mass ratio] 11.4 mg/mg 10-20 [facility] Laboratory - Hematology and Cell countsOrdered By: Jhonny Tomas on 01-07-2022 Erythrocyte distribution width (RBC) [Entitic vol] 52.0 fL 35.1-43.9 [facility] Erythrocyte distribution width (RBC) [Ratio] 14.5 % 11.6-14.6 [facility] Immature granulocytes/100 WBC (Bld) 0.300 % 0.0-0.9 [facility] Comment on above: IG% - Immature Granu locytes (promyelocytes, myelocytes and metamyelocytes) > 1% indicates that a LEFT SHIFT is Present. MCH (RBC) [Entitic mass] 31.7 pg 27.0-32.0 [facility] Nucleated RBC/100 WBC (Bld) [Ratio] 0 % 0-5 [facility] MCHC Auto (RBC) [Mass/Vol]Or dered By: Jhonny Tomas on 01-07-2022 MCHC (RBC) [Mass/Vol] 32.5 g/dL 32-36 [facility] No Panel InformationOrdered By: Jhonny Tomas on 01-07-2022 Estimated GFR (MDRD) Amer 79 mL/min >60 [facility] Comment on above: GFR Calc Estimated GFR (MDRD) Non-Af Amer 65 mL/min >60 [facility] Comment on above: Non- GFR Calc Platelets bldOrdered By: Joao Tomas on 01-07-2022 Platelets (Bld) [#/Vol] 192 10*3/uL 150-450 [facility] Serum or plasma calcium siobhan urement (mass/volume)Ordered By: Jhonny Tomas on 01-07-2022 Calcium [Mass/Vol] 8.8 mg/dL 8.5-10.1 [facility] Serum or plasma creatinine m easurement (mass/volume)Ordered By: Jhonny Tomas on 01-07-2022 Creatinine [Mass/Vol] 1.14 mg/dL 0.70-1.30 [facility] Comment on above: The validity of the calculated GFR & GFRAA in patients over 70 years has not been determined. Clinical correlation is essential. Serum or plasma urea nitroge n measurement (mass/volume)Ordered By: Jhonny Tomas on 01-07-2022 Urea nitrogen [Mass/Vol] 13 mg/dL 7-18 [facility] Thin prep Papanicolaou smear with manual screeningOrdered By: Jhonny Tomas on 01-07-2022 Thin prep Papanicolaou smear with manual screening 8 5-15 [facility] Absolute lymphocyte countOrd ered By: Jhonny Tomas on 12-24-2021 Lymphocytes Auto (Unsp spec) [#/Vol] 1.60 10*3/uL 0.83-4.51 [facility] Basophil percentageOrdered B y: Jhonny Tomas on 12-24-2021 Basophils/100 WBC (Bld) 0.4 % 0-1 [facility] Chloride [Moles/Vol] 109 mmol/L 98-107 [facility] Eosinophils/100 WBC (Bld) 1.5 % 0-5 [facility] Glucose [Mass/Vol] 93 mg/dL 74-106 [facility] Neutrophils (Bld) [#/Vol] 4.8 10*3/uL 2.0-7.7 [facility] Neutrophils/100 WBC (Bld) 66.8 % 47-70 [facility] Potassium [Moles/Vol] 4.0 mmol/L 3.5-5.1 [facility] Comment on above: Slight Hemolysis, Re sult may be falsely increased. Sodium [Moles/Vol] 140 mmol/L 136-145 [facility] WBC (Bld) [#/Vol] 7.2 10*3/uL 4.4-11.0 [facility] Blood erythrocytes count (nu mber/volume)Ordered By: Jhonny Tomas on 12-24-2021 RBC (Bld) [#/Vol] 4.49 10*6/uL 4.6-6.2 [facility] Blood hemoglobin measurement (mass/volume)Ordered By: Jhonny Tomas on 12-24-2021 Hemoglobin (Bld) [Mass/Vol] 14.5 g/dL 13.0-16.5 [facility] Blood lymphocytes/100 leukoc ytesOrdered By: Jhonny Tomas on 12-24-2021 Lymphocytes/100 WBC (Bld) 22.2 % 19-41 [facility] Blood monocytes/100 leukocyt esOrdered By: Jhonny Tomas on 12-24-2021 Monocytes/100 WBC (Bld) 9.0 % 0-10 [facility] Blood platelet mean volumeOr dered By: Jhonny Tomas on 12-24-2021 Platelet mean volume (Bld) [Entitic vol] 11.2 fL 6.2-12.0 [facility] Determination of erythrocyte mean corpuscular volume (MCV)Ordered By: Jhonny Tomas on 12-24-2021 MCV (RBC) [Entitic vol] 97.1 fL 80-94 [facility] Hematocrit Auto (Bld) [Volum e fraction]Ordered By: Jhonny Tomas on 12-24-2021 Hematocrit (Bld) [Volume fraction] 43.6 % 40-54 [facility] Laboratory - Chemistry and C hemistry - challengeOrdered By: Jhonny Tomas on 12-24-2021 CO2 [Moles/Vol] 26.0 mmol/L 21.0-32.0 [facility] Urea nitrogen/Creatinine [Mass ratio] 14.7 mg/mg 10-20 [facility] Laboratory - Hematology and Cell countsOrdered By: Jhonny Tomas on 12-24-2021 Erythrocyte distribution width (RBC) [Entitic vol] 51.8 fL 35.1-43.9 [facility] Erythrocyte distribution width (RBC) [Ratio] 14.4 % 11.6-14.6 [facility] Immature granulocytes/100 WBC (Bld) 0.100 % 0.0-0.9 [facility] Comment on above: IG% - Immature Granu locytes (promyelocytes, myelocytes and metamyelocytes) > 1% indicates that a LEFT SHIFT is Present. MCH (RBC) [Entitic mass] 32.3 pg 27.0-32.0 [facility] Nucleated RBC/100 WBC (Bld) [Ratio] 0 % 0-5 [facility] MCHC Auto (RBC) [Mass/Vol]Or dered By: Jhonny Tomas on 12-24-2021 MCHC (RBC) [Mass/Vol] 33.3 g/dL 32-36 [facility] No Panel InformationOrdered By: Jhonny Tomas on 12-24-2021 Estimated GFR (MDRD) Amer 90 mL/min >60 [facility] Comment on above: GFR Calc Estimated GFR (MDRD) Non-Af Amer 74 mL/min >60 [facility] Comment on above: Non- GFR Calc Platelets bldOrdered By: Joao Tomas on 12-24-2021 Platelets (Bld) [#/Vol] 166 10*3/uL 150-450 [facility] Serum or plasma calcium siobhan urement (mass/volume)Ordered By: Jhonny Tomas on 12-24-2021 Calcium [Mass/Vol] 8.8 mg/dL 8.5-10.1 [facility] Serum or plasma creatinine m easurement (mass/volume)Ordered By: Jhonny Tomas on 12-24-2021 Creatinine [Mass/Vol] 1.02 mg/dL 0.70-1.30 [facility] Comment on above: The validity of the calculated GFR & GFRAA in patients over 70 years has not been determined. Clinical correlation is essential. Serum or plasma urea nitroge n measurement (mass/volume)Ordered By: Jhonny Tomas on 12-24-2021 Urea nitrogen [Mass/Vol] 15 mg/dL 7-18 [facility] Thin prep Papanicolaou smear with manual screeningOrdered By: Jhonny Tomas on 12-24-2021 Thin prep Papanicolaou smear with manual screening 5 5-15 [facility] Absolute lymphocyte counton 12-10-2021 Lymphocytes Auto (Unsp spec) [#/Vol] 1.33 10*3/uL 0.83-4.51 [facility] Work Phone: Basophil percentageon 2021 Basophils/100 WBC (Bld) 0.4 % 0-1 [facility] Work Phone: Chloride [Moles/Vol] 105 mmol/L 98-107 [facility] Work Phone: [phone] Eosinophils/100 WBC (Bld) 1.3 % 0-5 [facility] Work Phone: Glucose [Mass/Vol] 103 mg/dL 74-106 [facility] Work Phone: Comment on above: Fasting Glucose resu lt from 100 to 125 mg/dL suggests IMPAIRED HOMEOSTASIS per A.D.A. criteria. Neutrophils (Bld) [#/Vol] 4.8 10*3/uL 2.0-7.7 [facility] Work Phone: Neutrophils/100 WBC (Bld) 69.1 % 47-70 [facility] Work Phone: Potassium [Moles/Vol] 3.7 mmol/L 3.5-5.1 [facility] Work Phone: Sodium [Moles/Vol] 141 mmol/L 136-145 [facility] Work Phone: [phone] WBC (Bld) [#/Vol] 7.0 10*3/uL 4.4-11.0 [facility] Work Phone: Blood erythrocytes count (nu mber/volume)on 12-10-2021 RBC (Bld) [#/Vol] 4.88 10*6/uL 4.6-6.2 [facility]: Blood hemoglobin measurement (mass/volume)on 12-10-2021 Hemoglobin (Bld) [Mass/Vol] 15.5 g/dL 13.0-16.5 [facility] Work Phone: Blood lymphocytes/100 leukoc yteson 12-10-2021 Lymphocytes/100 WBC (Bld) 19.1 % 19-41 [facility] Work Phone: Blood monocytes/100 leukocyt eson 12-10-2021 Monocytes/100 WBC (Bld) 9.8 % 0-10 [facility] Work Phone: Blood platelet mean volumeon 12-10-2021 Platelet mean volume (Bld) [Entitic vol] 10.8 fL 6.2-12.0 [facility] Work Phone: Determination of erythrocyte mean corpuscular volume (MCV)on 12-10-2021 MCV (RBC) [Entitic vol] 95.9 fL 80-94 [facility] Work Phone: Hematocrit Auto (Bld) [Volum e fraction]on 12-10-2021 Hematocrit (Bld) [Volume fraction] 46.8 % 40-54 [facility] Work Phone: Laboratory - Chemistry and C hemistry - challengeon 12-10-2021 CO2 [Moles/Vol] 30.0 mmol/L 21.0-32.0 [facility] Work Phone: Urea nitrogen/Creatinine [Mass ratio] 11.3 mg/mg 10-20 [facility] Work Phone: Laboratory - Hematology and Cell countson 12-10-2021 Erythrocyte distribution width (RBC) [Entitic vol] 51.1 fL 35.1-43.9 [facility] Work Phone: Erythrocyte distribution width (RBC) [Ratio] 14.4 % 11.6-14.6 [facility] Work Phone: Immature granulocytes/100 WBC (Bld) 0.300 % 0.0-0.9 [facility] Work Phone: Comment on above: IG% - Immature Granu locytes (promyelocytes, myelocytes and metamyelocytes) > 1% indicates that a LEFT SHIFT is Present. MCH (RBC) [Entitic mass] 31.8 pg 27.0-32.0 [facility] Work Phone: Nucleated RBC/100 WBC (Bld) [Ratio] 0 % 0-5 [facility] Work Phone: MCHC Auto (RBC) [Mass/Vol]on 12-10-2021 MCHC (RBC) [Mass/Vol] 33.1 g/dL 32-36 [facility] Work Phone: No Panel Informationon 12-10 Estimated GFR (MDRD) Amer 86 mL/min >60 [facility] Work Phone: Comment on above: GFR Calc Estimated GFR (MDRD) Non-Af Amer 71 mL/min >60 [facility] Work Phone: Comment on above: Non- GFR Calc Platelets bldon 12-10-2021 Platelets (Bld) [#/Vol] 176 10*3/uL 150-450 [facility] Work Phone: Serum or plasma calcium siobhan urement (mass/volume)on 12-10-2021 Calcium [Mass/Vol] 8.9 mg/dL 8.5-10.1 [facility] Work Phone: Serum or plasma creatinine m easurement (mass/volume)on 12-10-2021 Creatinine [Mass/Vol] 1.06 mg/dL 0.70-1.30 [facility] Work Phone: Comment on above: The validity of the calculated GFR & GFRAA in patients over 70 years has not been determined. Clinical correlation is essential. Serum or plasma urea nitroge n measurement (mass/volume)on 12-10-2021 Urea nitrogen [Mass/Vol] 12 mg/dL 7-18 [facility] Work Phone: Thin prep Papanicolaou smear with manual screeningon 12-10-2021 Thin prep Papanicolaou smear with manual screening 6 5-15 [facility] Work Phone: [facility] KEL DILLARD ([id number]) 1940 M Date Time Provider Department 12/09/21 NICOLAS CARDENAS INTMWS During your visit today, we recorded the following information about you: Ludivina Cárdenas LPN 12/09/2021 3:11 PM Signed Patient anant willis said PCP completed expert evaluation form on 09/29 for guardianship and 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 Anant Barry said 2 weeks after form was done father had fall and was taken to [facility] then sent to [place] [facility] for rehab. Now father is in memory [...] stay and he is now under the MD attending physician's care. It is more appropriate for the MD attending physician to do another form. More statements need corrected/updated Preethi Delgadillo RN 12/11/2021 2:59 PM Signed Son (Jhonny) calls in and provider message reviewed. Son asking if form brought in can be picked back up in Medical Records. Please contact Jhonny at [phone]. RENETTA Rubio LPN 12/11/2021 3:41 PM Signed [...] Status:Closed by FLORA WOOD LPN on 12/11/21 [facility] Absolute lymphocyte counton 11-26-2021 Lymphocytes Auto (Unsp spec) [#/Vol] 1.47 10*3/uL 0.83-4.51 [facility] Work Phone: Basophil percentageon 2021 Basophils/100 WBC (Bld) 0.6 % 0-1 [facility] Work Phone: Chloride [Moles/Vol] 107 mmol/L 98-107 [facility]: Eosinophils/100 WBC (Bld) 1.1 % 0-5 [facility] Work Phone: Glucose [Mass/Vol] 92 mg/dL 74-106 [facility] Work Phone: Neutrophils (Bld) [#/Vol] 6.4 10*3/uL 2.0-7.7 [facility] Work Phone: Neutrophils/100 WBC (Bld) 71.7 % 47-70 [facility] Work Phone: Potassium [Moles/Vol] 4.0 mmol/L 3.5-5.1 [facility] Work Phone: Comment on above: Slight Hemolysis, Re sult may be falsely increased. Sodium [Moles/Vol] 141 mmol/L 136-145 [facility] Work Phone: WBC (Bld) [#/Vol] 9.0 10*3/uL 4.4-11.0 [facility] Work Phone: Blood erythrocytes count (nu mber/volume)on 11-26-2021 RBC (Bld) [#/Vol] 4.81 10*6/uL 4.6-6.2 [facility] Work Phone: Blood hemoglobin measurement (mass/volume)on 11-26-2021 Hemoglobin (Bld) [Mass/Vol] 15.3 g/dL 13.0-16.5 [facility] Work Phone: Blood lymphocytes/100 leukoc yteson 11-26-2021 Lymphocytes/100 WBC (Bld) 16.4 % 19-41 [facility] Work Phone: Blood monocytes/100 leukocyt eson 11-26-2021 Monocytes/100 WBC (Bld) 9.9 % 0-10 [facility] Work Phone: Blood platelet mean volumeon 11-26-2021 Platelet mean volume (Bld) [Entitic vol] 11.2 fL 6.2-12.0 [facility] Work Phone: Determination of erythrocyte mean corpuscular volume (MCV)on 11-26-2021 MCV (RBC) [Entitic vol] 96.7 fL 80-94 [facility] Work Phone: Hematocrit Auto (Bld) [Volum e fraction]on 11-26-2021 Hematocrit (Bld) [Volume fraction] 46.5 % 40-54 [facility] Work Phone: Laboratory - Chemistry and C hemistry - challengeon 11-26-2021 CO2 [Moles/Vol] 28.0 mmol/L 21.0-32.0 [facility] Work Phone: Urea nitrogen/Creatinine [Mass ratio] 13.3 mg/mg 10-20 [facility] Work Phone: Laboratory - Hematology and Cell countson 11-26-2021 Erythrocyte distribution width (RBC) [Entitic vol] 51.9 fL 35.1-43.9 [facility] Work Phone: Erythrocyte distribution width (RBC) [Ratio] 14.5 % 11.6-14.6 [facility] Work Phone: Immature granulocytes/100 WBC (Bld) 0.300 % 0.0-0.9 [facility] Work Phone: Comment on above: IG% - Immature Granu locytes (promyelocytes, myelocytes and metamyelocytes) > 1% indicates that a LEFT SHIFT is Present. MCH (RBC) [Entitic mass] 31.8 pg 27.0-32.0 [facility] Work Phone: Nucleated RBC/100 WBC (Bld) [Ratio] 0 % 0-5 [facility] Work Phone: MCHC Auto (RBC) [Mass/Vol]on 11-26-2021 MCHC (RBC) [Mass/Vol] 32.9 g/dL 32-36 [facility] Work Phone: No Panel Informationon 11-26 Estimated GFR (MDRD) Amer 80 mL/min >60 [facility] Work Phone: Comment on above: GFR Calc Estimated GFR (MDRD) Non-Af Amer 66 mL/min >60 [facility] Work Phone: Comment on above: Non- GFR Calc Platelets bldon 11-26-2021 Platelets (Bld) [#/Vol] 181 10*3/uL 150-450 [facility] Work Phone: Serum or plasma calcium siobhan urement (mass/volume)on 11-26-2021 Calcium [Mass/Vol] 8.7 mg/dL 8.5-10.1 [facility] Work Phone: Serum or plasma creatinine m easurement (mass/volume)on 11-26-2021 Creatinine [Mass/Vol] 1.13 mg/dL 0.70-1.30 [facility] Work Phone: Comment on above: The validity of the calculated GFR & GFRAA in patients over 70 years has not been determined. Clinical correlation is essential. Serum or plasma urea nitroge n measurement (mass/volume)on 11-26-2021 Urea nitrogen [Mass/Vol] 15 mg/dL 7-18 [facility] Work Phone: Thin prep Papanicolaou smear with manual screeningon 11-26-2021 Thin prep Papanicolaou smear with manual screening 6 5-15 [facility] Work Phone: Absolute lymphocyte counton 11-12-2021 Lymphocytes Auto (Unsp spec) [#/Vol] 1.01 10*3/uL 0.83-4.51 [facility] Work Phone: Basophil percentageon 2021 Basophils/100 WBC (Bld) 0.6 % 0-1 [facility] Work Phone: Chloride [Moles/Vol] 109 mmol/L 98-107 [facility] Work Phone: Eosinophils/100 WBC (Bld) 1.1 % 0-5 [facility] Work Phone: Glucose [Mass/Vol] 89 mg/dL 74-106 [facility] Work Phone: Neutrophils (Bld) [#/Vol] 4.7 10*3/uL 2.0-7.7 [facility] Work Phone: Neutrophils/100 WBC (Bld) 72.7 % 47-70 [facility] Work Phone: Potassium [Moles/Vol] 3.9 mmol/L 3.5-5.1 [facility] Work Phone: Sodium [Moles/Vol] 142 mmol/L 136-145 [facility] Work Phone: WBC (Bld) [#/Vol] 6.5 10*3/uL 4.4-11.0 [facility] Work Phone: Blood erythrocytes count (nu mber/volume)on 11-12-2021 RBC (Bld) [#/Vol] 4.50 10*6/uL 4.6-6.2 [facility]: Blood hemoglobin measurement (mass/volume)on 11-12-2021 Hemoglobin (Bld) [Mass/Vol] 14.4 g/dL 13.0-16.5 [facility] Work Phone: Blood lymphocytes/100 leukoc yteson 11-12-2021 Lymphocytes/100 WBC (Bld) 15.5 % 19-41 [facility] Work Phone: Blood monocytes/100 leukocyt eson 11-12-2021 Monocytes/100 WBC (Bld) 9.8 % 0-10 [facility] Work Phone: Blood platelet mean volumeon 11-12-2021 Platelet mean volume (Bld) [Entitic vol] 10.9 fL 6.2-12.0 [facility] Work Phone: Determination of erythrocyte mean corpuscular volume (MCV)on 11-12-2021 MCV (RBC) [Entitic vol] 97.3 fL 80-94 [facility] Work Phone: Hematocrit Auto (Bld) [Volum e fraction]on 11-12-2021 Hematocrit (Bld) [Volume fraction] 43.8 % 40-54 [facility] Work Phone: Laboratory - Chemistry and C hemistry - challengeon 11-12-2021 CO2 [Moles/Vol] 26.0 mmol/L 21.0-32.0 [facility] Work Phone: Urea nitrogen/Creatinine [Mass ratio] 16.4 mg/mg 10-20 [facility] Work Phone: Laboratory - Hematology and Cell countson 11-12-2021 Erythrocyte distribution width (RBC) [Entitic vol] 53.1 fL 35.1-43.9 [facility] Work Phone: Erythrocyte distribution width (RBC) [Ratio] 14.8 % 11.6-14.6 [facility] Work Phone: Immature granulocytes/100 WBC (Bld) 0.300 % 0.0-0.9 [facility] Work Phone: Comment on above: IG% - Immature Granu locytes (promyelocytes, myelocytes and metamyelocytes) > 1% indicates that a LEFT SHIFT is Present. MCH (RBC) [Entitic mass] 32.0 pg 27.0-32.0 [facility] Work Phone: Nucleated RBC/100 WBC (Bld) [Ratio] 0 % 0-5 [facility] Work Phone: MCHC Auto (RBC) [Mass/Vol]on 11-12-2021 MCHC (RBC) [Mass/Vol] 32.9 g/dL 32-36 [facility] Work Phone: No Panel Informationon 11-12 Estimated GFR (MDRD) Amer 102 mL/min >60 [facility] Work Phone: Comment on above: GFR Calc Estimated GFR (MDRD) Non-Af Amer 84 mL/min >60 [facility] Work Phone: Comment on above: Non- GFR Calc Platelets bldon 11-12-2021 Platelets (Bld) [#/Vol] 181 10*3/uL 150-450 [facility] Work Phone: Serum or plasma calcium siobhan urement (mass/volume)on 11-12-2021 Calcium [Mass/Vol] 8.7 mg/dL 8.5-10.1 [facility] Work Phone: Serum or plasma creatinine m easurement (mass/volume)on 11-12-2021 Creatinine [Mass/Vol] 0.92 mg/dL 0.70-1.30 [facility] Work Phone: Comment on above: The validity of the calculated GFR & GFRAA in patients over 70 years has not been determined. Clinical correlation is essential. Serum or plasma urea nitroge n measurement (mass/volume)on 11-12-2021 Urea nitrogen [Mass/Vol] 15 mg/dL 7-18 [facility] Work Phone: Thin prep Papanicolaou smear with manual screeningon 11-12-2021 Thin prep Papanicolaou smear with manual screening 7 5-15 [facility] Work Phone: Absolute lymphocyte counton 10-29-2021 Lymphocytes Auto (Unsp spec) [#/Vol] 0.96 10*3/uL 0.83-4.51 [facility] Work Phone: Basophil percentageon 2021 Basophils/100 WBC (Bld) 0.5 % 0-1 [facility] Work Phone: Chloride [Moles/Vol] 110 mmol/L 98-107 [facility] Work Phone: Eosinophils/100 WBC (Bld) 1.9 % 0-5 [facility] Work Phone: Glucose [Mass/Vol] 93 mg/dL 74-106 [facility] Work Phone: Neutrophils (Bld) [#/Vol] 4.5 10*3/uL 2.0-7.7 [facility] Work Phone: Neutrophils/100 WBC (Bld) 70.1 % 47-70 [facility] Work Phone: Potassium [Moles/Vol] 3.8 mmol/L 3.5-5.1 [facility] Work Phone: Sodium [Moles/Vol] 142 mmol/L 136-145 [facility] Work Phone: WBC (Bld) [#/Vol] 6.4 10*3/uL 4.4-11.0 [facility] Work Phone: Blood erythrocytes count (nu mber/volume)on 10-29-2021 RBC (Bld) [#/Vol] 4.38 10*6/uL 4.6-6.2 [facility] Work [facility]: Blood hemoglobin measurement (mass/volume)on 10-29-2021 Hemoglobin (Bld) [Mass/Vol] 13.9 g/dL 13.0-16.5 [facility] Work Phone: Blood lymphocytes/100 leukoc yteson 10-29-2021 Lymphocytes/100 WBC (Bld) 15.1 % 19-41 [facility] Work Phone: Blood monocytes/100 leukocyt eson 10-29-2021 Monocytes/100 WBC (Bld) 12.1 % 0-10 [facility] Work Phone: Blood platelet mean volumeon 10-29-2021 Platelet mean volume (Bld) [Entitic vol] 11.2 fL 6.2-12.0 [facility] Work Phone: Determination of erythrocyte mean corpuscular volume (MCV)on 10-29-2021 MCV (RBC) [Entitic vol] 96.8 fL 80-94 [facility] Work Phone: [phone] Hematocrit Auto (Bld) [Volum e fraction]on 10-29-2021 Hematocrit (Bld) [Volume fraction] 42.4 % 40-54 [facility] Work Phone: Laboratory - Chemistry and C hemistry - challengeon 10-29-2021 CO2 [Moles/Vol] 27.0 mmol/L 21.0-32.0 [facility] Work Phone: Urea nitrogen/Creatinine [Mass ratio] 11.1 mg/mg 10-20 [facility] Work Phone: Laboratory - Hematology and Cell countson 10-29-2021 Erythrocyte distribution width (RBC) [Entitic vol] 52.1 fL 35.1-43.9 [facility] Work Phone: Erythrocyte distribution width (RBC) [Ratio] 14.6 % 11.6-14.6 [facility] Work Phone: Immature granulocytes/100 WBC (Bld) 0.300 % 0.0-0.9 [facility] Work Phone: Comment on above: IG% - Immature Granu locytes (promyelocytes, myelocytes and metamyelocytes) > 1% indicates that a LEFT SHIFT is Present. MCH (RBC) [Entitic mass] 31.7 pg 27.0-32.0 [facility] Work Phone: Nucleated RBC/100 WBC (Bld) [Ratio] 0 % 0-5 [facility] Work Phone: MCHC Auto (RBC) [Mass/Vol]on 10-29-2021 MCHC (RBC) [Mass/Vol] 32.8 g/dL 32-36 [facility] Work Phone: No Panel Informationon 10-29 Estimated GFR (MDRD) Amer 84 mL/min >60 [facility] Work Phone: Comment on above: GFR Calc Estimated GFR (MDRD) Non-Af Amer 70 mL/min >60 [facility] Work Phone: Comment on above: Non- GFR Calc Platelets bldon 10-29-2021 Platelets (Bld) [#/Vol] 187 10*3/uL 150-450 [facility] Work Phone: Serum or plasma calcium siobhan urement (mass/volume)on 10-29-2021 Calcium [Mass/Vol] 8.8 mg/dL 8.5-10.1 [facility] Work Phone: Serum or plasma creatinine m easurement (mass/volume)on 10-29-2021 Creatinine [Mass/Vol] 1.08 mg/dL 0.70-1.30 [facility] Work Phone: Comment on above: The validity of the calculated GFR & GFRAA in patients over 70 years has not been determined. Clinical correlation is essential. Serum or plasma urea nitroge n measurement (mass/volume)on 10-29-2021 Urea nitrogen [Mass/Vol] 12 mg/dL 7-18 [facility] Work Phone: Thin prep Papanicolaou smear with manual screeningon 10-29-2021 Thin prep Papanicolaou smear with manual screening 5 5-15 [facility] Work Phone: CNPNon 10-23-2021 [facility] Telephone (INTMWS) KEL DILLARD ([id number]) 1940 M Date Time Provider Department 10/23/21 [facility]ICOLAS CARDENAS INTMWS During your visit today, we recorded the following information about you: Flora Wood LPN 10/23/2021 11:54 AM Signed Per [facility] discharge info pt was discharged to [facility] 10/22/21. Allergies As of Date: 10/23/2021 (No [...] by FLORA WOOD LPN on 10/23/21 Normal [facility] - Chemistry and C hemistry - challengeon 10-22-2021 CK [Catalytic activity/Vol] 1616 U/L 39-308 [facility] Work Phone: [phone] Absolute lymphocyte counton 10-21-2021 Lymphocytes Auto (Unsp spec) [#/Vol] 0.75 10*3/uL 0.83-4.51 [facility] Work Phone: Basophil percentageon 2021 Basophils/100 WBC (Bld) 0.1 % 0-1 [facility] Work Phone: [phone] Chloride [Moles/Vol] 107 mmol/L 98-107 [facility] Work Phone: [phone] Eosinophils/100 WBC (Bld) 0.0 % 0-5 [facility] Work Phone: [phone] Glucose [Mass/Vol] 144 mg/dL 74-106 [facility] Work Phone: Comment on above: Fasting Glucose resu lt greater than or equal to 126 mg/dL suggests DIABETES MELLITUS per A.D.A. criteria. Neutrophils (Bld) [#/Vol] 11.4 10*3/uL 2.0-7.7 [facility] Work Phone: [phone] Neutrophils/100 WBC (Bld) 85.4 % 47-70 [facility] Work Phone: [phone] Potassium [Moles/Vol] 3.7 mmol/L 3.5-5.1 [facility] Work Phone: [phone] Sodium [Moles/Vol] 141 mmol/L 136-145 [facility] Work Phone: [phone] WBC (Bld) [#/Vol] 13.4 10*3/uL 4.4-11.0 [facility] Work Phone: [phone] Blood erythrocytes count (nu mber/volume)on 10-21-2021 RBC (Bld) [#/Vol] 5.04 10*6/uL 4.6-6.2 [facility] Work Phone: Blood hemoglobin measurement (mass/volume)on 10-21-2021 Hemoglobin (Bld) [Mass/Vol] 15.7 g/dL 13.0-16.5 [facility] Work Phone: Blood lymphocytes/100 leukoc yteson 10-21-2021 Lymphocytes/100 WBC (Bld) 5.6 % 19-41 [facility] Work Phone: Blood monocytes/100 leukocyt eson 10-21-2021 Monocytes/100 WBC (Bld) 8.5 % 0-10 [facility] Work Phone: Blood platelet mean volumeon 10-21-2021 Platelet mean volume (Bld) [Entitic vol] 11.2 fL 6.2-12.0 [facility] Work Phone: Determination of erythrocyte mean corpuscular volume (MCV)on 10-21-2021 MCV (RBC) [Entitic vol] 93.8 fL 80-94 [facility] Work Phone: Hematocrit Auto (Bld) [Volum e fraction]on 10-21-2021 Hematocrit (Bld) [Volume fraction] 47.3 % 40-54 [facility] Work Phone: Laboratory - Chemistry and C hemistry - challengeon 10-21-2021 CO2 [Moles/Vol] 26.0 mmol/L 21.0-32.0 [facility] Work Phone: Urea nitrogen/Creatinine [Mass ratio] 14.2 mg/mg 10-20 [facility] Work Phone: Laboratory - Hematology and Cell countson 10-21-2021 Erythrocyte distribution width (RBC) [Entitic vol] 50.5 fL 35.1-43.9 [facility] Work Phone: Erythrocyte distribution width (RBC) [Ratio] 14.7 % 11.6-14.6 [facility] Work Phone: Immature granulocytes/100 WBC (Bld) 0.400 % 0.0-0.9 [facility] Work Phone: Comment on above: IG% - Immature Granu locytes (promyelocytes, myelocytes and metamyelocytes) > 1% indicates that a LEFT SHIFT is Present. MCH (RBC) [Entitic mass] 31.2 pg 27.0-32.0 [facility] Work Phone: Nucleated RBC/100 WBC (Bld) [Ratio] 0 % 0-5 [facility] Work Phone: MCHC Auto (RBC) [Mass/Vol]on 10-21-2021 MCHC (RBC) [Mass/Vol] 33.2 g/dL 32-36 [facility] Work Phone: No Panel Informationon 10-21 Estimated Creatinine Clearance Calc 48.76 ml/min [facility] Work Phone: Estimated GFR (MDRD) Amer 80 mL/min >60 [facility] Work Phone: Comment on above: GFR Calc Estimated GFR (MDRD) Non-Af Amer 66 mL/min >60 [facility] Work Phone: Comment on above: Non- GFR Calc Thyroid Stimulating Hormone (TSH) 1.56 uIU/mL 0.358-3.74 [facility] Work Phone: Vitamin D 25-Hydroxy 10.8 ng/mL [facility] Work Phone: Comment on above: Vitamin D 25(OH) Sta tus Range Deficiency <20 ng/mL (50nmol/L) Insufficiency 20 - 30 ng/mL (50 - 75 nmol/L) Sufficiency 30 - 100 ng/mL (75 - 250 nmol/L) Toxicity >100 ng/mL (>250 nmol/L) Platelets bldon 10-21-2021 Platelets (Bld) [#/Vol] 219 10*3/uL 150-450 [facility] Work Phone: Serum or plasma calcium soibhan urement (mass/volume)on 10-21-2021 Calcium [Mass/Vol] 9.1 mg/dL 8.5-10.1 [facility] Work Phone: Serum or plasma creatinine m easurement (mass/volume)on 10-21-2021 Creatinine [Mass/Vol] 1.13 mg/dL 0.70-1.30 [facility] Work Phone: Comment on above: The validity of the calculated GFR & GFRAA in patients over 70 years has not been determined. Clinical correlation is essential. Serum or plasma urea nitroge n measurement (mass/volume)on 10-21-2021 Urea nitrogen [Mass/Vol] 16 mg/dL 7-18 [facility] Work Phone: Thin prep Papanicolaou smear with manual screeningon 10-21-2021 Thin prep Papanicolaou smear with manual screening 8 5-15 [facility] Work Phone: Absolute lymphocyte counton 10-20-2021 Lymphocytes Auto (Unsp spec) [#/Vol] 0.59 10*3/uL 0.83-4.51 [facility] Work Phone: Basophil percentageon 2021 Basophil percentage 5-10 SEEN /hpf 0-5 [facility] Work Phone: Basophils/100 WBC (Bld) 0.1 % 0-1 [facility] Work Phone: Chloride [Moles/Vol] 107 mmol/L 98-107 [facility] Work Phone: Eosinophils/100 WBC (Bld) 0.0 % 0-5 [facility] Work Phone: Glucose [Mass/Vol] 110 mg/dL 74-106 [facility] Work Phone: Comment on above: Fasting Glucose resu lt from 100 to 125 mg/dL suggests IMPAIRED HOMEOSTASIS per A.D.A. criteria. Neutrophils (Bld) [#/Vol] 11.6 10*3/uL 2.0-7.7 [facility] Work Phone: Neutrophils/100 WBC (Bld) 85.8 % 47-70 [facility] Work Phone: Potassium [Moles/Vol] 3.6 mmol/L 3.5-5.1 [facility] Work Phone: Sodium [Moles/Vol] 141 mmol/L 136-145 [facility] Work Phone: WBC (Bld) [#/Vol] 13.5 10*3/uL 4.4-11.0 [facility] Work Phone: Bilirubin Test strip Ql (U)o n 10-20-2021 Bilirubin Ql (U) Negative Negative [facility] Work Phone: Blood erythrocytes count (nu mber/volume)on 10-20-2021 RBC (Bld) [#/Vol] 5.14 10*6/uL 4.6-6.2 [facility] Work Phone: Blood hemoglobin measurement (mass/volume)on 10-20-2021 Hemoglobin (Bld) [Mass/Vol] 15.9 g/dL 13.0-16.5 [facility] Work Phone: Blood lymphocytes/100 leukoc yteson 10-20-2021 Lymphocytes/100 WBC (Bld) 4.4 % 19-41 [facility] Work Phone: Blood manual differential co mment interpretation (narrative result)on 10-20-2021 Manual differential comment Wei (Bld) [Interp] SEE COMMENT [facility] Work Phone: Comment on above: LYMPHOPENIA NOTED Blood monocytes/100 leukocyt eson 10-20-2021 Monocytes/100 WBC (Bld) 9.0 % 0-10 [facility] Work Phone: Blood platelet adequacy dete ction by light microscopyon 10-20-2021 Platelets LM Ql (Bld) ADEQUATE ADEQ [facility] Work Phone: Blood platelet mean volumeon 10-20-2021 Platelet mean volume (Bld) [Entitic vol] 10.4 fL 6.2-12.0 [facility] Work Phone: Determination of erythrocyte mean corpuscular volume (MCV)on 10-20-2021 MCV (RBC) [Entitic vol] 92.8 fL 80-94 [facility] Work Phone: Hematocrit Auto (Bld) [Volum e fraction]on 10-20-2021 Hematocrit (Bld) [Volume fraction] 47.7 % 40-54 [facility] Work Phone: Hyaline casts LM.LPF (Urine sed) [#/Area]on 10-20-2021 Hyaline casts (Urine sed) [#/Area] 0 /[LPF] 0-5 [facility] Work Phone: Ketones Test strip Ql (U)on 10-20-2021 Ketones Ql (U) 50 mg/dl Negative [facility] Work Phone: Laboratory - Chemistry and C hemistry - challengeon 10-20-2021 CO2 [Moles/Vol] 25.0 mmol/L 21.0-32.0 [facility] Work Phone: Urea nitrogen/Creatinine [Mass ratio] 15.0 mg/mg 10-20 [facility] Work Phone: Laboratory - Hematology and Cell countson 10-20-2021 Anisocytosis Ql (Bld) RARE [facility] Work Phone: Erythrocyte distribution width (RBC) [Entitic vol] 48.4 fL 35.1-43.9 [facility] Work Phone: Erythrocyte distribution width (RBC) [Ratio] 14.4 % 11.6-14.6 [facility] Work Phone: Immature granulocytes/100 WBC (Bld) 0.700 % 0.0-0.9 [facility] Work Phone: Comment on above: IG% - Immature Granu locytes (promyelocytes, myelocytes and metamyelocytes) > 1% indicates that a LEFT SHIFT is Present. MCH (RBC) [Entitic mass] 30.9 pg 27.0-32.0 [facility] Work Phone: Nucleated RBC/100 WBC (Bld) [Ratio] 0 % 0-5 [facility] Work Phone: MCHC Auto (RBC) [Mass/Vol]on 10-20-2021 MCHC (RBC) [Mass/Vol] 33.3 g/dL 32-36 [facility] Work Phone: Macrocytes detectionon 10-20 Macrocytes Ql (Bld) RARE [facility] Work Phone: Mucus LM Ql (Urine sed)on Mucus Ql (Urine sed) 0 SEEN /hpf [facility] Work Phone: Nitrite Test strip Ql (U)on 10-20-2021 Nitrite Ql (U) Negative Negative [facility] Work Phone: No Panel Informationon 10-20 Estimated Creatinine Clearance Calc 53.23 ml/min [facility] Work Phone: Estimated GFR (MDRD) Amer 85 mL/min >60 [facility] [facility] Work Phone: Comment on above: GFR Calc Estimated GFR (MDRD) Non-Af Amer 70 mL/min >60 [facility] Work Phone: Comment on above: Non- GFR Calc Platelets bldon 10-20-2021 Platelets (Bld) [#/Vol] 198 10*3/uL 150-450 [facility] Work Phone: Protein Test strip Ql (U)on 10-20-2021 Protein Ql (U) 30 mg/dl Negative [facility] Work Phone: RBC morphologyon 10-20-2021 RBC morphology finding Nom (Bld) N CHROM NORMAL NORM C&C [facility] Work Phone: Serum or plasma calcium siobhan urement (mass/volume)on 10-20-2021 Calcium [Mass/Vol] 9.1 mg/dL 8.5-10.1 [facility] Work Phone: Serum or plasma creatinine m easurement (mass/volume)on 10-20-2021 Creatinine [Mass/Vol] 1.07 mg/dL 0.70-1.30 [facility] Work Phone: Comment on above: The validity of the calculated GFR & GFRAA in patients over 70 years has not been determined. Clinical correlation is essential. Serum or plasma urea nitroge n measurement (mass/volume)on 10-20-2021 Urea nitrogen [Mass/Vol] 16 mg/dL 7-18 [facility] Work Phone: Squamous epithelial cells de tection in urine sediment by light microscopyon 10-20-2021 Epithelial cells.squamous LM Ql (Urine sed) 0 SEEN /hpf 0-5 [facility] Work Phone: Thin prep Papanicolaou smear with manual screeningon 10-20-2021 Thin prep Papanicolaou smear with manual screening 9 5-15 [facility] Work Phone: Urine blood detectionon 09-30 RBC Ql (U) 250 /ul Negative [facility] Work Phone: RBC Ql (U) 0 SEEN /hpf 0-5 [facility] Work Phone: Urine clarityon 10-20-2021 Clarity (U) Sl. Cloudy Clear [facility] Work Phone: Urine color determinationon 10-20-2021 Color (U) Kristina Yellow [facility] Work Phone: Urine glucose detectionon Glucose Ql (U) Normal mg/dl Normal [facility] Work Phone: Urine leukocyte esterase det ection by dipstickon 10-20-2021 Leukocyte esterase Test strip Ql (U) 25 /ul Negative [facility] Work Phone: Urine pHon 10-20-2021 pH (U) 5.0 [pH] 5.0 - 8.0 [facility] Work Phone: Urine sediment bacteria coun t by microscopy (number/high power field)on 10-20-2021 Bacteria LM.HPF (Urine sed) [#/Area] 1 /[HPF] None Seen [facility] Work Phone: Urine specific gravity measu rementon 10-20-2021 Specific gravity (U) [Rel density] 1.025 1.002-1.030 [facility] Work Phone: Urobilinogen Auto test strip Ql (U)on 10-20-2021 Urobilinogen Ql (U) 1 mg/dl Normal [facility] Work Phone: CNOVon 09-29-2021 CNOV Office Visit (INTMWS) KEL DILLARD ([id number]) 1940 M Date Time Provider Department 09/29/21 4:40 PM NICOLAS CARDENAS INTGINA During your visit today, we recorded the following information about you: Temperature Pulse Respiration Blood pressure Normal [facility] 07-15-2021 CNPN Telephone (INTMWS) KEL DILLARD ([id number]) 1940 M Date Time Provider Department 07/15/21 CARDENASNICOLAS GRERE During your visit today, we recorded the following information about you: Karen Matias RN 07/15/2021 1:40 PM Signed Yesenia, Admissions staff member at [facility] calling to state patient's son Jhonny has reached out to them to request patient possibly be admitted into their memory care unit due to cognition concerns. Yesenia is requesting notes from patient's last OV be faxed to them at [phone]. This nurse contacted son Jhonny to verify the request and he confirmed it was ok to share requested information. Information faxed as requested. Karen Matias RN Allergies As of Date: 07/15/2021 (No Known Allergies) Date Reviewed: 05/12/2021 Reviewed by: Dori Martines APRN.PLANNING MANAGER - Fully Assessed Reason for Visit: fax [...] Encounter Status:Closed by KAREN MATIAS on 07/15/21 [facility] Culture, urine Bacteria identified Cx Nom (U) Positive [facility] Work Phone: Vital Signs Date Time Vital Sign Value Performing Clinician Nuzhati jam 11-02-2024 05:29-0400 Respiratory rate 18 /min Dr. David Miramontes MD Work Phone: [facility] 11-02-2024 05:22-0400 Body temperature 98.2 [degF] Dr. David Miramontes MD Work Phone: [facility] 11-02-2024 05:22-0400 Diastolic blood pressure 80 mm[Hg] Dr. David Miramontes MD Work Phone: [facility] 11-02-2024 05:22-0400 Heart rate 67 /min Dr. David Miramontes MD Work Phone: [facility] 11-02-2024 05:22-0400 SaO2% (BldA) [Mass fraction] 98 % Dr. David Miramontes MD Work Phone: [facility] 11-02-2024 05:22-0400 Systolic blood pressure 154 mm[Hg] Dr. David Miramontes MD Work Phone: [facility] 11-02-2024 03:30-0400 Body height 172.[address] David Miramontes MD Work Phone: [facility] 11-02-2024 03:30-0400 Body mass index (BMI) [Ratio] 29.7 kg/m2 Dr. David Miramontes MD Work Phone: [facility] 11-02-2024 03:30-0400 Body weight 88.[address] David Miramontes MD Work Phone: [facility] 10-29-2024 11:28-0400 Body temperature 98.3 [degF] Dr. David Miramontes MD Work Phone: [facility] 10-29-2024 11:28-0400 Diastolic blood pressure 84 mm[Hg] Dr. David Miramontes MD Work Phone: [facility] 10-29-2024 11:28-0400 Heart rate 66 /min Dr. David Miramontes MD Work Phone: [facility] 10-29-2024 11:28-0400 Respiratory rate 16 /min Dr. David Miramontes MD Work Phone: [facility] 10-29-2024 11:28-0400 SaO2% (BldA) [Mass fraction] 99 % Dr. David Miramontes MD Work Phone: [facility] 10-29-2024 11:28-0400 Systolic blood pressure 118 mm[Hg] Dr. David Miramontes MD Work Phone: [facility] 10-29-2024 09:52-0400 Body height 172.[address] David Miramontes MD Work Phone: [facility] 10-29-2024 09:52-0400 Body mass index (BMI) [Ratio] 29.1 kg/m2 Dr. David Miramontes MD Work Phone: [facility] 10-29-2024 09:52-0400 Body weight [address] David Miramontes MD Work Phone: [facility] 10-27-2024 22:00-0400 Diastolic blood pressure 55 mm[Hg] Dr. David Miramontes MD Work Phone: [facility] 10-27-2024 22:00-0400 Heart rate 65 /min Dr. David Miramontes MD Work Phone: [facility] 10-27-2024 22:00-0400 Respiratory rate 16 /min Dr. David Miramontes MD Work Phone: [facility] 10-27-2024 22:00-0400 Systolic blood pressure 146 mm[Hg] Dr. David Miramontes MD Work Phone: [facility] 10-27-2024 21:52-0400 Body temperature 98 [degF] Dr. David Miramontes MD Work Phone: [facility] 10-27-2024 21:52-0400 SaO2% (BldA) [Mass fraction] 96 % Dr. David Miramontes MD Work Phone: [facility] 10-27-2024 20:34-0400 Body height 172.[address] David Miramontes MD Work Phone: [facility] 10-27-2024 20:34-0400 Body mass index (BMI) [Ratio] 30.2 kg/m2 Dr. David Miramontes MD Work Phone: [facility] 10-27-2024 20:34-0400 Body weight 90.[address] David Miramontes MD Work Phone: [facility] 09-15-2024 13:51-0400 Body height 175.[address] David Miramontes MD Work Phone: [facility] 09-15-2024 12:10-0400 Body height 175.[address] David Miramontes MD Work Phone: [facility] 09-13-2024 11:44-0400 Body height 175.[address] David Miramontes MD Work Phone: [facility] 12-02-2022 10:40-0400 Body height 175.[address] Nicolas Cardenas Work Phone: [facility] 04-02-2022 14:41-0500 Body height 175.[address] Nicolas Cardenas Work Phone: [facility] 10-22-2021 08:30-0400 Body temperature 98.2 [degF] Dr. Nicolas Cardenas Work Phone: [facility] Work Phone: 10-22-2021 08:30-0400 Diastolic blood pressure 71 mm[Hg] Dr. Nicolas Cardenas Work Phone: [facility] Work Phone: 10-22-2021 08:30-0400 Heart rate 59 /min Dr. Nicolas Cardenas Work Phone: [facility] Work Phone: 10-22-2021 08:30-0400 Respiratory rate 16 /min Dr. Nicolas Cardenas Work Phone: [facility] Work Phone: 10-22-2021 08:30-0400 SaO2% (BldA) [Mass fraction] 95 % Dr. Nicolas Cardenas Work Phone: [facility] Work Phone: 10-22-2021 08:30-0400 Systolic blood pressure 125 mm[Hg] Dr. Nicolas Cardenas Work Phone: [facility] Work Phone: 10-21-2021 01:00-0400 Body height 175.[address] Nicolas Cardenas Work Phone: [facility] Work Phone: 10-21-2021 01:00-0400 Body mass index (BMI) [Ratio] 28.1 kg/m2 Dr. Nicolas Cardenas Work Phone: [facility] Work Phone: 10-21-2021 01:00-0400 Body weight 86.[address] Nicolas Cardenas Work Phone: [facility] Work Phone: 10-21-2021 00:46-0400 Body temperature 97.9 [degF] Dr. Nicolas Cardenas Work Phone: [facility] Work Phone: 10-21-2021 00:46-0400 Diastolic blood pressure 74 mm[Hg] Dr. Nicolas Cardenas Work Phone: [facility] Work Phone: 10-21-2021 00:46-0400 Heart rate 60 /min Dr. Nicolas Cardenas Work Phone: [facility] Work Phone: 10-21-2021 00:46-0400 Respiratory rate 25 /min Dr. Nicolas Cardenas Work Phone: [facility] Work Phone: 10-21-2021 00:46-0400 SaO2% (BldA) [Mass fraction] 94 % Dr. Nicolas Cardenas Work Phone: [facility] Work Phone: 10-21-2021 00:46-0400 Systolic blood pressure 115 mm[Hg] Dr. Nicolas Cardenas Work Phone: [facility] Work Phone: 10-20-2021 20:20-0400 Body height 175.[address] Nicolas Cardenas Work Phone: [facility] Work Phone: 10-20-2021 20:20-0400 Body mass index (BMI) [Ratio] 28.6 kg/m2 Dr. Nicolas Cardenas Work Phone: [facility] Work Phone: 10-20-2021 20:20-0400 Body weight 87.[address] Nicolas Cardenas Work Phone: [facility] Work Phone: 09-29-2021 16:45-0400 Body height 165.7 cm Nicolas Cardenas MD Work Phone: [facility] 09-29-2021 16:45-0400 Body temperature 97.3 [degF] Nicolas Cardenas MD Work Phone: [facility] 09-29-2021 16:45-0400 Body weight 87.09 kg Nicolas Cardenas MD Work Phone: [facility] 09-29-2021 16:45-0400 Diastolic blood pressure 76 mm[Hg] Nicolas Cardenas MD Work Phone: [facility] 09-29-2021 16:45-0400 Heart rate 60 /min Nicolas Cardenas MD Work Phone: [facility] 09-29-2021 16:45-0400 Respiratory rate 16 /min Nicolas Cardenas MD Work Phone: [facility] 09-29-2021 16:45-0400 Systolic blood pressure 130 mm[Hg] Nicolas Cardenas MD Work Phone: [facility] Encounters Encounter Date Encounter Type Care Provider Facility Start: 11-02-2024 Registered Referred David Miramontes MD -[facility] Start: 11-02-2024 End: 11-02-2024 Emergency department patient visit Dr. David Miramontes MD Work Phone: -Emergency Department Work Phone: Start: 10-29-2024 End: 10-29-2024 Emergency department patient visit Dr. David Miramontes MD Work Phone: -Emergency Department Work Phone: Start: 10-27-2024 End: 10-27-2024 Emergency department patient visit Dr. David Miramontes MD Work Phone: -Emergency Department Work Phone: Start: 09-29-2024 End: 09-29-[address] David Miramontes MD Work Phone: [facility] Start: 09-29-2024 End: 09-29-2024 Patient encounter procedure Dasia Barrett [facility] Work Phone: Start: 09-25-2024 End: 09-25-2024 Patient encounter procedure Marimar Zimmer [facility] Work Phone: Start: 09-25-2024 End: 09-25-[address] David Miramontes MD Work Phone: [facility] Start: 09-25-2024 Registered Referred David Pickett Start: 09-19-2024 End: 09-19-[address] David Miramontes MD Work Phone: [facility] Start: 09-19-2024 End: 09-19-2024 Patient encounter procedure Marimar Zimmer [facility] Work Phone: Start: 09-07-2024 ambulatory Efdanay Guerrae Facili ty:[facility] Start: 09-07-2024 Registered Referred David Pickett Start: 08-31-2024 ambulatory Efdanay Pinkghe Facili ty:[facility] Start: 08-31-2024 Registered Referred David Adam [facility] Start: 08-29-2024 End: 08-29-[address] David Miramontes MD Work Phone: [facility] Start: 08-29-2024 End: 08-29-[address] David Miramontes MD -[facility] Work Phone: Start: 08-25-2024 End: 08-25-[address] David Miramontes MD Work Phone: [facility] Start: 08-25-2024 End: 08-25-2024 Patient encounter procedure Marimar Zimmer [facility] Work Phone: Start: 08-22-2024 ambulatory David Richardson ty:[facility] Start: 08-22-2024 Registered Referred David Miramontes MD -[facility] Start: 08-21-2024 End: 08-21-[address] David Miramontes MD Work Phone: [facility] Start: 08-21-2024 End: 08-21-2024 Patient encounter procedure Marimar Zimmer [facility] Work Phone: Start: 08-21-2024 End: 08-21-[address] David Miramontes MD Work Phone: [facility] Start: 08-21-2024 End: 08-21-[address] Edson Quinn MD -[facility] Work Phone: Start: 08-15-2024 End: 08-15-[address] David Miramontes MD Work Phone: [facility] Start: 08-15-2024 End: 08-15-2024 Patient encounter procedure Marimar Zimmer [facility] Work Phone: Start: 08-02-2024 ambulatory Efdanay Simonsi ty:[facility] Start: 08-02-2024 [facility] Start: 08-01-2024 ambulatory David GARCIA Fa cility:[facility] Start: 08-01-2024 [facility] Start: 07-21-2024 ambulatory David GARCIA Fa cility:[facility] Start: 07-21-2024 [facility] Start: 07-20-2024 End: 07-20-[address] David Miramontes MD Work Phone: [facility] Start: 07-20-2024 End: 07-20-2024 Patient encounter procedure Marimarjacinto Zimmer CASE BRIEFER-C -[facility] Work Phone: Start: 07-18-2024 End: 07-18-[address] David Miramontes MD Work Phone: [facility] Start: 07-18-2024 End: 07-18-[address] David Miramontes MD -[facility] Work Phone: Start: 07-17-2024 End: 07-17-2024 Follow-up encounter Diana Ochoa [place] ARBORER.PLANNING MANAGER Work Phone: [facility] Comment on above: Results Start: 07-14-2024 End: 07-14-2024 Office outpatient new 30 minutes Diana Dmitry [place] ARBORER.PLANNING MANAGER Work Phone: [facility] Comment on above: Gross hematuria (Lise wallace Dx) Start: 07-14-2024 End: 07-14-2024 ambulatory DIANA DMITRY POSTLETHWAIT Facility:[facility] Start: 07-04-2024 End: 07-04-[address] David Miramontes MD Work Phone: [facility] Start: 07-04-2024 End: 07-04-2024 Patient encounter procedure Marimar VASQUES -[facility] Work Phone: Start: 06-23-2024 End: 06-23-[address] David Miramontes MD Work Phone: [facility] Work Phone: Start: 06-23-2024 End: 06-23-2024 Departed Referred David Miramontes MD -[facility] Start: 06-23-2024 End: 06-23-2024 ambulatory Frandycarleen Miramontes OLS Facility:[facility] Start: 06-05-2024 End: 06-05-[address] David Miramontes MD Work Phone: [facility] Work Phone: Start: 06-05-2024 End: 06-05-2024 Departed Referred David AdamKrystle Pickett Start: 06-05-2024 Registered Referred David AdamKrystle Piyush Start: 06-05-2024 End: 06-05-2024 ambulatory David Pinkamnatereza Facility:[facility] Start: 05-30-2024 ambulatory Mayradanay Miramontes Facili ty:[facility] Start: 05-30-2024 Non-patient / Non-visit Dr. Josiah Klein MD -[facility] Start: 05-30-2024 End: 05-30-[address] David Miramontes MD -[facility] Work Phone: Start: 05-30-2024 End: 05-30-2024 ambulatory David Miramontes Facility:[facility] Start: 05-30-2024 End: 05-30-2024 Patient encounter procedure Marimar VASQUES -[facility] Work Phone: Start: 05-30-2024 End: 05-30-[address] David Miramontes MD Work Phone: [facility] Work Phone: Start: 05-30-2024 End: 05-30-2024 Departed Referred David Pickett Start: 05-30-2024 Registered Referred David Pickett Start: 05-30-2024 End: 05-30-2024 [facility] Start: 05-23-2024 End: 05-23-2024 ambulatory [facility] Facility:[facility] Start: 05-23-2024 End: 05-23-[address] David Miramontes MD -[facility] Work Phone: Start: 05-22-2024 End: 05-22-[address] David Miramontes MD Work Phone: [facility] Work Phone: Start: 05-22-2024 End: 05-22-2024 Departed Referred David Pickett Start: 05-22-2024 Registered Referred David Pickett Start: 05-22-2024 End: 05-22-[address] Edson Quinn MD -[facility] Work Phone: Start: 05-22-2024 End: 05-22-2024 ambulatory Edson Quinn Facility:[facility] Start: 05-18-2024 End: 05-18-2024 [facility] Start: 05-18-2024 End: 05-18-2024 Patient encounter procedure Marimar VASQUES -[facility] Work Phone: Start: 05-13-2024 End: 05-13-[facility] Start: 05-13-2024 End: 05-13-[address] Edson Quinn MD -[facility] Work Phone: Start: 05-11-2024 End: 05-11-2024 ambulatory Efewongbe Oleghe Facility:[facility] Start: 05-11-2024 End: 05-11-2024 Patient encounter procedure Marimar Zimmer CASE BRIEFER-C -[facility] Work Phone: Start: 05-01-2024 End: 05-01-2024 ambulatory Efewongbe Oleghe Facility:[facility] Start: 05-01-2024 End: 05-01-2024 Patient encounter procedure Marimar Mesha CARRASCO-Caron -[facility] Work Phone: Start: 04-19-2024 End: 04-19-2024 ambulatory Efewongbe Oleghe Facility:[facility] Start: 04-19-2024 End: 04-19-2024 Patient encounter procedure Marimar Mesha CASE BRIEFER-C -[facility] Work Phone: Start: 04-17-2024 ambulatory Efewongbe Oleghe Facili ty:[facility] Start: 04-17-2024 Registered Referred David [place]Krystle [place] Start: 04-13-2024 ambulatory Efewongbe Oleghe Facili ty:[facility] Start: 04-13-2024 Registered Referred David AdamKrystle [place] Start: 04-11-2024 End: 04-11-2024 ambulatory Efewongbe Oleghe Facility:[facility] Start: 04-11-2024 End: 04-11-[address] [facility] Work Phone: Start: 04-07-2024 ambulatory Efewongbe Oleghe Facili ty:[facility] Start: 04-07-[address] David AdamKrystle [place] Start: 04-04-2024 ambulatory Efewongbe Oleghe Facili ty:[facility] Start: 04-04-2024 Registered Referred David AdamKrystle [place] Start: 03-13-2024 End: 03-13-2024 ambulatory Efewongbe Oleghe Facility:[facility] Start: 03-13-2024 End: 03-13-2024 Patient encounter procedure Marimar VASQUES -[facility] Work Phone: Start: 03-02-2024 End: 03-02-2024 ambulatory Efewongbe Oleghe Facility:[facility] Start: 03-02-2024 End: 03-02-2024 Patient encounter procedure Isidro HOOD -[facility] Work Phone: Start: 02-15-2024 End: 02-15-2024 ambulatory Efewongbe Oleghe Facility:[facility] Start: 02-15-2024 End: 02-15-[address] David Miramontes MD -[facility] Work Phone: Start: 02-14-2024 End: 02-14-2024 ambulatory Efewongbe Oleghe Facility:[facility] Start: 02-14-2024 End: 02-14-[address] Edson Quinn MD -[facility] Work Phone: Start: 02-03-2024 ambulatory Efewongbe Oleghe Facili ty:[facility] Start: 01-12-2024 End: 01-12-2024 ambulatory Efewongbe Oleghe Facility:[facility] Start: 01-04-2024 ambulatory Efewongbe Oleghe Facili ty:[facility] Start: 12-28-2023 End: 12-28-2023 ambulatory Efewongbe Oleghe Facility:[facility] Start: 12-07-2023 End: 12-07-2023 ambulatory Efewongbe Oleghe Facility:[facility] Start: 11-15-2023 End: 11-15-2023 ambulatory Efewongbe Oleghe Facility:[facility] Start: 04-06-2023 End: 04-06-[address] Nicolas Cardenas Work Phone: [facility] Work Phone: Start: 04-06-2023 End: 04-06-[address] Nicolas Cardenas Work Phone: [facility] Start: 02-02-2023 End: 02-02-[address] Nicolas Cardenas Work Phone: [facility] Work Phone: Start: 01-15-2023 End: 01-15-[address] Nicolas Cardenas Work Phone: [facility] Work Phone: Start: 12-30-2022 End: 12-30-[address] Nicolas Cardenas Work Phone: [facility] Work Phone: Start: 12-30-2022 End: 12-30-[address] Nicolas Cardenas Work Phone: [facility] Start: 11-23-2022 End: 11-23-[address] Nicolas Cardenas Work Phone: [facility] Work Phone: Start: 11-17-2022 End: 11-17-[address] Nicolas Cardenas Work Phone: [facility] Work Phone: Start: 10-06-2022 End: 10-06-[address] Nicolas Cardenas Work Phone: [facility] Work Phone: Start: 09-29-2022 End: 09-29-[address] Nicolas Cardenas Work Phone: [facility] Start: 09-23-2022 End: 09-23-[address] Nicolas Cardenas Work Phone: [facility] Work Phone: Start: 06-29-2022 End: 06-29-[address] Nicolas Cardenas Work Phone: [facility] Work Phone: Start: 06-29-2022 End: 06-29-[address] Nicolas Cardenas Work Phone: [facility] Start: 06-23-2022 End: 06-23-[address] Nicolas Cardenas Work Phone: [facility] Start: 06-05-2022 ambulatory [address] Comment on above: Population Health Na vigation Outreach ([facility]LY [facility] Gaps) Start: 05-18-2022 End: 05-18-[address] Nicolas Cardenas Work Phone: [facility] Start: 04-14-2022 End: 04-14-[address] Nicolas Cardenas Work Phone: [facility] Start: 04-01-2022 End: 04-01-[address] Nicolas Cardenas Work Phone: [facility] Work Phone: Start: 04-01-2022 End: 04-01-[address] Nicolas Cardenas Work Phone: [facility] Start: 03-16-2022 End: 03-16-[address] Nicolas Cardenas Work Phone: [facility] Start: 02-24-2022 End: 02-24-[address] Nicolas Cardenas Work Phone: [facility] Start: 01-07-2022 End: 01-07-[address] Nicolas Cardenas Work Phone: [facility] Start: 01-05-2022 End: 01-05-[address] Nicolas Cardenas Work Phone: [facility] Start: 12-24-2021 End: 12-24-[address] Nicolas Cardenas Work Phone: [facility] Work Phone: Start: 12-24-2021 End: 12-24-[address] Nicolas Cardenas Work Phone: [facility] Start: 12-24-[address] Nicolas Cardenas Work Phone: [facility] Start: 12-15-2021 End: 12-15-[address] Nicolas Cardenas Work Phone: [facility] Start: 12-10-2021 End: 12-10-[address] Nicolas Cardenas Work Phone: [facility] Work Phone: Start: 12-10-2021 End: 12-10-[address] Nicolas Cardenas Work Phone: [facility] Start: 12-10-[address] Nicolas Cardenas Work Phone: [facility] Start: 12-09-2021 Telephone encounter Nicolas gutierrez MD Work Phone: [facility] [place] Comment on above: form dropping off Start: 11-26-2021 End: 11-26-[address] Nicolas Cardenas Work Phone: [facility] Work Phone: Start: 11-26-2021 End: 11-26-[address] Nicolas Cardenas Work Phone: [facility] Start: 11-12-[address] Nicolas Cardenas Work Phone: [facility] Start: 10-29-[address] Nicolas Cardenas Work Phone: [facility] Start: 10-23-2021 Telephone encounter Nicolas gutierrez MD Work Phone: [facility] [place] Comment on above: Patient Update Start: 10-22-2021 Non-patient / Non-visit Dr. Nicolas Cardenas Work Phone: [facility] Start: 10-21-2021 Non-patient / Non-visit Dr. Nicolas Cardenas Work Phone: [facility] Start: 10-20-2021 Non-patient / Non-visit Dr. Nicolas Cardenas Work Phone: [facility] Start: 10-20-2021 End: 10-22-2021 Evaluation and management of inpatient Dr. Nicolas Cardenas Work Phone: [facility] 3 Start: 10-20-2021 End: 10-22-[address] 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 David Miramontes MD Work Phone: Start: 11-02-2024 CT of head without contrast Dr. David Miramontes MD Work Phone: Start: 10-29-2024 Plain x-ray of hand Dr. [...] Phone: Start: 07-14-2024 BLADDER SCAN Diana L[facility] ARBORER.PLANNING MANAGER Work Phone: Start: 07-14-2024 Urnls dip stick/tabl et rgnt auto w/o microscopy [facility].PLANNING MANAGER Work Phone: Start: 05-30-[address] [...] dip stick/tabl et reagent auto microscopy Dr. Daivd Miramontes MD Work Phone: Start: 04-07-2024 Measurement [...] Dr. Nicolas Cardenas Work Phone: Start: 09-29-2021 [employer] COVI D-19 VACCINE, AGE 12+ YR (LANGE TOP) Nicolas Cardenas MD Work Phone: Urine culture Dr. Nicolas Farley Work Phone: Viral antigen assay Dr. Filiberto Cardenas Work Phone: Plan of Treatment Date Care Activity Detail Author Start: 11-02-2024 [facility] Start: 10-30-2024 Influenza vaccination Influenz a Vaccine (Season Ended) [facility] Start: 10-29-2024 [facility] Start: 10-27-2024 End: 10-27-2024 [facility] Start: 10-27-2024 Brain/Head without Contrast Brain/Head without Contrast [facility] Start: 10-27-2024 CT Unspecified body region WO contrast [facility] Start: 09-25-2024 Microbial culture, routine Wound Cul ture [facility] Start: 09-25-2024 [facility] Start: 04-22-2024 DIABETES SCREEN DIABETES SCREEN [facility] Start: 04-22-2024 Diabetes Screening Diabetes Screenin g [facility] Start: 03-01-2024 Advance Directive Discussion Advance Directive Discussion [facility] Start: 10-31-2023 Covid-19 Vaccine ( season) Covid-19 Vaccine ( season) [facility] Start: 10-30-2022 Influenza vaccination INFLUENZ A (Season Ended) [facility] Start: 05-12-2022 SHINGRIX VACCINE (2 of 3) DUMAS GRIX VACCINE (2 of 3) [facility] Comment on above: Postponed from 07/18 (Declined at this time) Start: 03-01-2022 ADVANCE DIRECTIVE DISCUSSION ADVANCE DIRECTIVE DISCUSSION [facility] Start: 11-24-2021 COVID-19 VACCINE (5 - Booster for Pfizer series) COVID-19 VACCINE (5 - Booster for Pfizer series) [facility] Start: 10-30-2021 Influenza vaccination INFLUENZA (#1) [facility] Start: 10-22-2021 Patient discharge [facility] Work Phone: Start: 10-21-2021 Following clinical p athway protocol [facility] Work Phone: Start: 10-21-2021 Assessment of risk o f venous thromboembolism [facility] Work Phone: Start: 10-21-2021 Insertion of cathete r into peripheral vein [facility] Work Phone: Start: 10-21-2021 Oxygen therapy [facility] Work Phone: Start: 10-21-2021 Providing care accor ding to standard [facility] Work Phone: Start: 10-21-2021 Provision of activit y privileges [facility] Work Phone: Start: 10-21-2021 Referral to occupati onal therapist [facility] Work Phone: Start: 10-21-2021 Referral to service [facility] Work Phone: Start: 10-21-2021 [facility] Work Phone: Start: 10-21-2021 Verification routine [facility] Work Phone: Start: 10-21-2021 CT angiography of he ad and neck CTA Head AND Neck W/ Contrast [facility] Work Phone: Start: 10-21-2021 CTA Head vessels and Neck vessels W contrast IV [facility] Work Phone: Start: 10-20-2021 [facility] Work Phone: Start: 10-20-2021 Admission procedure [facility] Work Phone: Start: 09-11-2021 COVID-19 VACCINE (4 - Booster for Pfizer series) COVID-19 VACCINE (4 - Booster for Pfizer series) [facility] Start: 08-23-2021 Urine microalbumin profile [facility] Comment on above: Postponed from 07/15 (Declined at this time) Start: 2014 RSV Vaccine (1 - 1-d ose 75+ series) RSV Vaccine (1 - 1-dose 75+ series) [facility] Start: 07-18-2013 SHINGRIX VACCINE (2 of 3) DUMAS GRIX VACCINE (2 of 3) [facility] Start: 07-15-2010 Urine microalbumin profile [facility] Anion gap in Serum o r Plasma [facility] BUN/Creatinine ratio [facility] Calcium [Mass/volume ] in Serum or Plasma [facility] Carbon dioxide, tota l [Moles/volume] in Central venous blood [facility] Creatinine [Mass/vol ume] in Serum or Plasma [facility] CYTOLOGY NON-DIRECTOR E LEARNING CYTOLOGY NON-GY N Lab Routine Gross hematuria Ordered: 07/14/2024 [facility] Work Phone: Comment on above: Ordered: 07/14/2024 Erythrocyte mean corpuscular volume determination [facility] Glucose [Mass/volume ] in Serum or Plasma [facility] Hematocrit [Volume Fraction] of Blood [facility] Hemoglobin [Mass/vol ume] in Blood [facility] Leukocytes [#/volume ] in Blood [facility] Mean corpuscular hemoglobin concentration determination [facility] Mean corpuscular hemoglobin determination [facility] Measurement of renal function [facility] Neutrophil count [facility] Neutrophil percent differential count [facility] Patient Education [facility] Work Phone: Patient referral [facility] Work Phone: Platelets [#/volume] in Blood [facility] Potassium measurement [facility] Red blood cell count [facility] Red cell distributio n width determination [facility] Serum chloride measurement [facility] Sodium measurement [facility] Urea nitrogen [Mass/volume] in Serum or Plasma [facility] Immunizations Immunization Date Immunization Notes Care Provider [facility] 09-29-2021 COVID-19 vaccine, ag e 12+ yr ([employer] [facility]) Nicolas Cardenas MD Work Phone: [facility] Work Phone: 05-12-2021 COVID-19 vaccine, ag e 12+ yr ([employer] [facility]) Nicolas Cardenas MD Work Phone: [facility] 03-31-2021 influenza, high-dose , quadrivalent vaccine (FLUZONE HIGH DOSE QUADRIVALENT) Nicolas Cardenas MD Work Phone: [facility] Work Phone: 03-31-2021 influenza virus vaccine, unspecified formulation Diana Arango APRN.CNP Work Phone: [facility] 06-17-2020 COVID-19 vaccine, ag e 12+ yr ([employer] - PURPLE TOP) Nicolas Cardenas MD Work Phone: [facility] Work Phone: 05-27-2020 COVID-19 vaccine, ag e 12+ yr ([employer] - PURPLE TOP) Nicolas Cardenas MD Work Phone: [facility] Work Phone: 04-22-2020 influenza, high-dose , quadrivalent vaccine (FLUZONE HIGH DOSE QUADRIVALENT) Nicolas Cardenas MD Work Phone: [facility] Work Phone: 01-19-2019 influenza, high dose seasonal, preservative-free Nicolas Cardenas MD Work Phone: [facility] 02-03-2018 influenza, high dose seasonal, preservative-free Nicolas Cardenas MD Work Phone: [facility] 01-18-2017 influenza, high dose seasonal, preservative-free Nicolas Cardenas MD Work Phone: [facility] 12-27-2015 influenza, high dose seasonal, preservative-free Nicolas Cardenas MD Work Phone: [facility] 12-26-2014 influenza, high dose seasonal, preservative-free Nicolas Cardenas MD Work Phone: [facility] 06-26-2014 pneumococcal conjuga te vaccine, 13 valent Nicolas Cardenas MD Work Phone: [facility] 12-28-2013 influenza, seasonal, injectable Nicolas Cardenas MD Work Phone: [facility] 05-23-2013 zoster vaccine, live Nicolas Cardenas MD Work Phone: [facility] 07-14-2010 tetanus and diphther ia toxoids, adsorbed, preservative free, for adult use (2 Lf of tetanus toxoid and 2 Lf of diphtheria toxoid) Nicolas Cardenas MD Work Phone: [facility] Work Phone: 01-13-2006 pneumococcal polysaccharide vaccine, 23 valent Nicolas Cardenas MD Work Phone: [facility] Payers Date Payer Category Payer Medicaid [id number] 2023 Self-pay [id number] 2013 Private Health Insurance [facility] AARP SUPPLEMENT [id number] 2013-Present [phone] [address] [place] [address] Indemnity [id number] 2013 Private Health Insurance [id number]. [id number] 2013 Unknown [id number] 2004 Medicare MEDICARE MEDICAR E A AND B [id number] 2004-Present [phone] [address] [address] [place] [address] Medicare [id number]. [id number] 2004 Medicare [id number]. 1.13.159.2. [id number] 2004 Medicare [id number] Private Health Insurance [facility] [id number] Unknown [id number] 2.16.840.1.245567.3.579.2. 462 Unknown [id number] 2.16.840.1.047763.3.579.2. 462 Unknown [id number] 2.16.840.1.553484.3.579.2. 462 Unknown [id number] 2.16.840.1.046178.3.579.2. 462 Unknown [id number] 2.16.840.1.873574.3.579.2. 462 Unknown [id number] 2.16.840.1.080872.3.579.2. 462 Unknown [id number] 2.16.840.1.483604.3.579.2. 462 Unknown [id number] 2.16.840.1.031188.3.579.2. 462 Unknown [id number] 2.16.840.1.409605.3.579.2. 462 Unknown [id number] 2.16.840.1.491587.3.579.2. 462 Unknown [id number] 2.16840.1.817548.3.579.2. 462 Unknown [id number] 2.16840.1.252087.3.579.2. 462 Unknown [id number] 2.16840.1.724290.3.579.2. 462 Unknown [id number] 2.16840.1.205148.3.579.2. 462 Unknown [id number] 2.16.840.1.274162.3.579.2. 462 Unknown [id number] 2.16840.1.750837.3.579.2. 462 Unknown [id number] 2.16.840.1.701873.3.579.2. 462 Unknown [id number] 2.16.840.1.383848.3.579.2. 462 Unknown [id number] 2.16.840.1.444362.3.579.2. 462 Unknown [id number] 2.16.840.1.501761.3.579.2. 462 Unknown [id number] 2.16.840.1.202969.3.579.2. 462 Unknown [id number] 2.16.840.1.599048.3.579.2. 462 Unknown [id number] 2.16.840.1.446292.3.579.2. 462 Unknown [id number] 2.16.840.1.433631.3.579.2. 462 Unknown [id number] 2.16.840.1.313869.3.579.2. 462 Unknown [id number] 2.16.840.1.683197.3.579.2. 462 Unknown [id number] 2.16.840.1.881866.3.579.2. 462 Unknown [id number] 2.16840.1.709391.3.579.2. 462 Unknown [id number] 2.16.840.1.550137.3.579.2. 462 Unknown [id number] 2.840.1.682374.3.579.2. 462 Unknown [id number] 2.16840.1.874346.3.579.2. 462 Unknown [id number] 2.16.840.1.733169.3.579.2. 462 Unknown [id number] 2.16.840.1.717047.3.579.2. 462 Unknown [id number] 2.16840.1.729931.3.579.2. 462 Unknown [id number] 2.16840.1.547742.3.579.2. 462 Unknown [id number] 2.16.840.1.132867.3.579.2. 462 Unknown [id number] 2.16.840.1.224951.3.579.2. 462 Unknown [id number] 2.16.840.1.787405.3.579.2. 462 Unknown [id number] 2.16.840.1.408057.3.579.2. 462 Unknown [id number] 2.16840.1.983751.3.579.2. 462 Unknown [id number] 2.16.840.1.290290.3.579.2. 462 Unknown [id number] 2.16.840.1.797725.3.579.2. 462 Unknown [id number] 2.16.840.1.224372.3.579.2. 462 Unknown [id number] 2.16.840.1.602473.3.579.2. 462 Unknown [id number] 2.16.840.1.602833.3.579.2. 462 Unknown [id number] 2.16.840.1.631107.3.579.2. 462 Unknown [id number] 2.16.840.1.860229.3.579.2. 462 Unknown [id number] 2.16.840.1.192377.3.579.2. 462 Unknown [id number] 2.16.840.1.797007.3.579.2. 462 Unknown [id number] 2.16.840.1.893011.3.579.2. 462 Unknown [id number] 2.16.840.1.951424.3.579.2. 462 Unknown [id number] 2.16.840.1.759325.3.579.2. 462 Unknown [id number] 2.16840.1.820397.3.579.2. 462 Unknown [id number] 2.16840.1.849804.3.579.2. 462 Social History Date Type Detail Facility Start: 04-22-2012 End: 11-02-2024 Tobacco smoking status NHIS Ex-smoker [facility] Start: 03-01-1949 End: 03-01-1959 History of tobacco use Current smoker [facility] Start: 03-01-1949 End: 03-01-1959 History of tobacco use Cigarette Smoker [facility] Start: 05-12-2021 End: 07-14-2024 Alcohol intake Current non-drinker of alcohol (finding) [facility] Start: 1940 Sex Assigned At Not on file [facility] Start: 09-19-2021 End: 09-29-2021 Exposure to SARS-CoV-2 (event) Not sure [facility] Work Phone: Start: 10-21-2021 End: 12-02-2022 Tobacco smoking status NHIS Unknown if ever smoked [facility] Start: 1940 Sex Assigned At Male [facility] Start: 04-22-2012 End: 07-14-2024 Cigarettes smoked current (pack per day) - Reported 1 [facility] Start: 04-22-2012 Tobacco use and exposure Smokeless tobacco non-user [facility] Work Phone: Start: 06-05-2024 End: 06-21-2024 Sex Male (finding) [facility] Start: 02-03-2018 End: 07-14-2024 Tobacco use panel [facility] Adult Depression Screening Assessment 0 [facility] Goals Date Patient Goal Desired Activity /State Functional Status Date Assessment Result Facility 10-22-2021 Functional status Bedrest [facility] Work Phone: 06-26-2014 Are you deaf, or do you have serious difficulty hearing No 06/26/2014 10:08 AM FREDDYT Anjelica Perez Cma No [facility] 06-26-2014 Are you blind, or do you have serious difficulty seeing, even when wearing glasses No 06/26/2014 10:08 AM Anjelica Esparza Cma [facility] 06-26-2014 Do you have serious difficulty walking or climbing stairs No 06/26/2014 10:08 AM EDAnjelica Moore Cma [facility] 06-26-2014 Do you have difficul ty dressing or bathing No 06/26/2014 10:08 AM Anjelica Esparza Cma [facility] 06-26-2014 Because of a physica l, mental, or emotional condition, do you have difficulty doing errands alone such as visiting a physician's office or shopping No 06/26/2014 10:08 AM Anjelica Esparza Cma [facility] Mental Status Date Assessment Result Facility 10-22-2021 Cognitive function Voice/Name [facility] Work Phone: 10-20-2021 Cognitive function Appropriate;Cony starks [facility] Work Phone: 06-26-2014 Because of a physica l, mental, or emotional condition, do you have serious difficulty concentrating, remembering, or making decisions No 06/26/2014 10:08 AM EDT Chris MooreAnjelica No [facility] Clinical Notes 09-16-2018 to 11-02-2024 Telephone Encounter - Stefany Mcclure RN - 07/17/2024 11:17 AM EDTTelephone Encounter - Stefany Mcclure RN - 07/17/2024 11:17 AM EDTTelephone Encounter - Stefany Mcclure RN - 07/17/2024 11:14 AM EDT Note Date & Type Note Facility 11-02-2024 Discharge summary [facility] 11-02-2024 Radiology Diagnostic study note [facility] Services [address] [place], [place] [address] Brain/Head without Contrast MR#: [id number] Acct: [id number] Name: KEL DILLARD Rep #: [id number] : 1940 M 84 From: Viola Allan MD PCP: Dr. David Miramontes MD Status: R EG ER Study:Brain/Head without Contrast Date of Exa m: 11/02/24 Exam# [id number] Ordering Dr: Bibi Leigh MD PROCEDURE: BRAIN/HEAD WITHOUT CONTRAST 11/02/2024 REASON FOR EXAM: HEAD TRAUMA ON THINNERS TECHNIQUE: Procedure Code: CTBR Modality: CT Procedure: BRAIN/HEAD WITHOUT CONTRAST Coronal and Sagittal reconstruction series were provided. One or more dose reduction techniques were used (e.g., Automated exposure control, adjustment of the mA and/or kV according to patient size, use of iterative reconstruction technique. RADIATION DOSE SUMMARY: CTDlvol: 28.95 mGy DLP: 652 mGycm COMPARISON: 10/27/2024. FINDINGS: Unchanged right frontal acute subgaleal soft tissue hematoma. Mild diffuse cortical atrophy, commensurate with the patient's age. Scattered hypodense foci in the periventricular and subcortical white matter suggestive of chronic ischemic white matter disease. Normal size of the ventricles and extra-axial spaces for the patient's age. Normal basal ganglia and thalami. Normal brainstem. Normal cerebellum. There is no demonstrated extra-axial, intraparenchymal, or intraventricular hemorrhage. There are no findings of an acute ischemic infarction. Normal calvarium. There is no demonstrated fracture. Normal visualized paranasal sinuses. CT/Brain/Head without Contrast IMPRESSION: Unchanged right frontal acute subgaleal soft tissue hematoma. No CT evidence of an acute traumatic brain abnormality. Reading [facility] CC: Dr. David Miramontes MD; Dr. Abhinav Leigh MD ~ Industrial Renderer: Signed [facility] 11-02-2024 Radiology Diagnostic study note [facility] Imaging Services [address] [place] [address] Spine Cervical without Contras MR#: [id number] Acct: [id number] Name: KEL DILLARD Rep #: [id number] : 1940 84 From: Viola Allan MD PCP: Dr. David Miramontes MD Status: R ER Study:Spine Cervical without Contras Date of Exam: 11/02/24 Exam# [id number] Ordering Dr: Bibi Leigh MD PROCEDURE: SPINE CERVICAL WITHOUT CONTRAS 11/02/2024 REASON FOR EXAM: HEAD TRAUMA TECHNIQUE: Procedure Code: CTSPC Modality: CT Procedure: SPINE CERVICAL WITHOUT CONTRAS Coronal and Sagittal reconstruction series were provided. One or more dose reduction techniques were used (e.g., Automated exposure control, adjustment of the mA and/or kV according to patient size, use of iterative reconstruction technique. RADIATION DOSE SUMMARY: CTDlvol: 28.95 mGy DLP: 1518 mGycm COMPARISON: None. FINDINGS: Mild osteopenia. Grade 1 anterolisthesis of C2 on C3. Grade 1 anterolisthesis of C7 on T1. There are diffuse spondylotic changes. Findings are demonstrated to by diffuse disc space narrowing, osteophyte formation and degenerative endplate sclerosis. There is diffuse facet joint arthropathy with secondary bilateral neural foramina narrowing. No fracture or dislocation is seen. No aggressive lytic or blastic bony lesion is noted. CT/Spine Cervical without Contras IMPRESSION: No CT evidence of an acute traumatic abnormality. Reading Location: [place] [address] CC: Dr. David Miramontes MD; Dr. Abhinav Leigh MD ~ Industrial Renderer: Signed [facility] 10-29-2024 Discharge summary [facility] 10-29-2024 Radiology Diagnostic study note [facility] Imaging Services [address] [place] [address] (046) Wrist min 3 Views MR#: [id number] Acct: [id number] Name: KEL DILLARD Rep #: [id number] : 1940 M 84 From: Brodie Martinez MD PCP: Dr. David Miramontes MD Status: R EG ER Study:Wrist min 3 Views Date of Exam: Exam# [id number] Ordering Dr: Bibi Leigh MD PROCEDURE: WRIST [...] acute osseous abnormalities. Mild arthritis. Reading Location: [facility] CC: Dr. David Miramontes MD; Dr. Abhinav Leigh MD ~ Industrial Renderer: Signed [facility] 10-29-2024 Radiology Diagnostic study note [facility] Imaging Services [address] [place] [address] ([phone]) Hand Min 3 Views MR#: [id number] Acct: [id number] Name: KEL DILLARD Rep #: [id number] : 1940 M 84 From: Brodie Martinez MD PCP: Dr. David Miramontes MD Status: R EG ER Study:Hand Min 3 Views Date of Exam: Exam# [id number] Ordering Dr: Bibi Leigh MD PROCEDURE: HAND MIN 3 VIEWS 10/29/2024 REASON FOR EXAM: FALL TECHNIQUE: Procedure Code: ERENDIRA Modality: DX Procedure: HAND MIN 3 VIEWS Laterality: Left COMPARISON: None. FINDINGS: Bones: No acute bony abnormalities. Joints: Unremarkable. Soft tissues: No soft tissue abnormalities. RAD/Hand Min 3 Views IMPRESSION: No acute osseous abnormalities. Reading Location: [facility] CC: Dr. David Miramontes MD; Dr. Abhinav Leigh MD ~ Industrial Renderer: Signed [facility] 10-27-2024 Radiology Diagnostic study note [facility] Imaging Services [address] [place] [address] [id number] Brain/Head without Contrast MR#: [id number] Acct: [id number] Name: KEL DILLARD Rep #: [id number] : 1940 M 84 From: [facility] laurie Mariano MD PCP: Dr. David Miramontes MD Status: R EG ER Study:Brain/Head without Contrast Date of Exa m: 10/27/24 Exam# [id number] Ordering Dr: Ira Zarate PROCEDURE: CT BRAIN/HEAD [...] loss and chronic microangiopathic changes. Reading Location: [id number] CC: Dr. David Miramontes MD; ERWIN Phillip ~ Industrial Renderer: Signed [facility] 07-17-2024 Telephone encounter Note Spoke with patient's son and notified of information as per provider. He states that they are going to hold off on having tests listed below,. He will let us know if he needs anything or wants test done in the future. Verbalized understanding and has no further questions. Stefany Mcclure RN [facility] Work Phone: 07-17-2024 Miscellaneous Notes Spoke with patient's son and notified of information as per provider. He states that they are going to hold off on having tests listed below,. He will let us know if he needs anything or wants test done in the future. Verbalized understanding and has no further questions. Stefany Mcclure RN ----- Message from Diana Arango APRN.PLANNING MANAGER sent at 07/17/2024 11:12 AM EDT ----- Please notify patient/patient's son that patient's cytology came back negative for high-grade urothelial carcinoma. This is great news! Given his mentation and mobility -- we could hold off on CT/cysto if he wishes. documented in this encounter [facility] 07-17-2024 Telephone encounter Note ----- Message from Diana Arango APRN.CNP sent at 07/17/2024 11:12 AM EDT ----- Please notify patient/patient's son that patient's cytology came back negative for high-grade urothelial carcinoma. This is great news! Given his mentation and mobility -- we could hold off on CT/cysto if he wishes. [facility] 07-14-2024 History of Present illness Narrative Images from the original note were not included. [facility] [place] [facility] - [place] UROL [facility] NEW PATIENT UROLOGY VISIT 07/14/2024 8:51 [...] (no units) Date Value 08/12/2018 Negative Specific [place], Ur (no units) Date Value 08/12/2018 1.018 [...] intervention based on that result. - CYTOLOGY NON-DIRECTOR E LEARNING - Call son with results. Will make treatment plan decision from there. Follow-up as needed. Diana Arango APRN.HOLLIE documented in this encounter [facility] 07-14-2024 Note HNO ID: [id number] Author: DIANA ARANGO APRN.PLANNING MANAGER Service: ? Author Type: Nurse Practitioner Type: Progress Notes Filed: 07/14/2024 09:11 Note Text: [facility] [place] [facility] Urology - [place] UROL JUAN NEW PATIENT [...] use: Former Exposure to noxious chemicals: [employer] History of kidney stones: Denies Past urologic [...] End Date , Taking? , Authorizing Provider ProviderQuentin Medication pyridoxine hcl(VITAMIN B-6 100 MG TAB), [...] [facility] 06-05-2022 Note HNO ID: [id number] Author: Yoli Garner Service: ? Author Type: [...] Yoli Garner June 05, 2022 1:58 PM [facility] 06-05-2022 Note Patient Outreach (JEAN CLAUDE TNPOLA) ---- KEL DILLARD ([id number]) 1940 M Date Time Provider Department 06/05/22 YOLI GARNER During your visit today, we recorded the following information about you: Yoli Amarilysmonica 06/05/2022 2:00 PM Signed POPULATION HEALTH NAVIGATION [...] Encounter Status:Closed by YOLI GARNER on 06/05/22 [facility] 06-05-2022 History of Present illness Narrative POPULATION [...] 2022 1:58 PM documented in this encounter [facility] 12-11-2021 Miscellaneous Notes Forms pts son brought in have been sent to medical records. Pts son notified. He can pick them up there. Son (Jhonny) calls in and provider message reviewed. Son asking if form brought in can be picked back up in Medical Records. Please contact Jhonny at [phone]. Preethi Delgadillo RN I have not seen him since hospital stay and he is now under the MD attending physician's care. It is more appropriate for the MD attending physician to do another form. More statements need corrected/updated Form to pcp to review. Patient son Jhonny calling said PCP completed expert evaluation form on 09/29 for guardianship and 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 Anant Barry said 2 weeks after form was done father had fall and was taken to [facility] then sent to [facility] for rehab. Now father is in memory care unit, his dementia is at 6 out of 7. Son is going to drop off new form to be competed, since father can not care for himself or do anything for himself. Please advise documented in this encounter [facility] 10-23-2021 Miscellaneous Notes Per [facility] discharge info pt was discharged to [facility] 10/22/21. documented in this encounter [facility] 09-29-2021 Note HNO ID: [id number] Author: Nicolas Cardenas MD Service: ? Author Type: Physician Type: Progress Notes Filed: 09/29/2021 6:08 PM Note Text: This note was created using INFIMETriter. Subjective Kel Dillard is a 81 year old male. He was here with his son. He was home bound due to memory loss and cognitive deficits. He gets lost if he wandered outside. Son was here with form requesting guardianship. This was part of POA he was establishing. They were exploring snf placement in anticipation of need, but Kel [...] vaccine - ICD9: V04.89, ICD10: Z23 - [employer] COVID-19 VACCINE, AGE 12+ YR (LANGE TOP) 6. 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 Form completed. Patient and son indicated understanding and willingness to follow recommendations. Nicolas Cardenas MD [facility] 09-29-2021 Note HNO ID: [id number] Author: Nicolas Cardenas MD Service: ? Author [...] current specialists seen: Pulmonary- Dr. Valle Cardiology- [facility] Marine Technician- Barb End of Live Planning discussed including [...] and Tdap at pharmacy Nicolas Cardenas MD [facility] 09-29-2021 History of Present illness Narrative This note was created using NoteWriter. Subjective Kel Dillard is a 81 year old male. He was here with his son. He was home bound due to memory loss and cognitive deficits. He gets lost if he wandered outside. Son was here with form requesting guardianship. This was part of POA he was establishing. They were exploring snf placement in anticipation of need, but Kel [...] vaccine - ICD9: V04.89, ICD10: Z23 - [employer] COVID-19 VACCINE, AGE 12+ YR (LANGE TOP) [...] current specialists seen: Pulmonary- Dr. Valle Cardiology- [facility] Marine Technician- Barb End of Live Planning discussed including [...] Nicolas Cardenas MD documented in this encounter [facility] 07-15-2021 Miscellaneous Notes Yesenia, Admissions staff member at [facility] calling to state patient's son Jhonny has reached out to them to request patient possibly be admitted into their memory care unit due to cognition concerns. Yesenia is requesting notes from patient's last OV be faxed to them at [phone]. This nurse contacted son Jhonny to verify the request and he confirmed it was ok to share requested information. Information faxed as requested. Karen Matias RN documented in this encounter [facility] 09-16-2018 History of Past i [...] of this encounter (statuses as of 07/15/2021) [facility] History of Past illness Narrative* [...] of this encounter (statuses as of 09/29/2021) [facility] History of Past illness Narrative* [...] of this encounter (statuses as of 10/23/2021) [facility] History of Past illness Narrative* [...] of this encounter (statuses as of 12/11/2021) [facility] History of Past illness Narrative* [...] of this encounter (statuses as of 06/05/2022) [facility] Abhinav Leigh [facility] Note Date/Time October 29, 2024 11 :[address] [place] [address] System Medical Records Department [address] [place] [id number] Emergency Department Summary 10/29/24 MR#: [id number] Acct: [id number] Name: KEL DILLARD Rep #:[id number] : 1940 84 From: Abhinav Leigh [...] wrist and hand. But he has good storeperson strength bilaterally. There is no significant tenderness [...] male fell 2 days ago at the snf was evaluated at that time for head [...] did speak to a nurse at the [facility]. No other complaints today has not been ill has not had a fever. Patient himself denies any complaints. Repeat exam is unchanged at 11:26 AM.. Patient will be discharged back to [facility]. we will make sure they know that [...] This is all from arthritis. Print Language: Irish Disposition Disposition: Home, Self Care What to do if you have Problems For any increased pain, shortness of breath, bleeding, nausea or vomiting, chestpain, or any unexpected problems, contact your Primary Care Provider. Call [facility] ([phone]) or report to the closest Emergency Room. Call 911 if necessary. 10/29/24 1126 <Electronically signed by Abhinav Leigh MD> Cosigner Signature (if applicable): CC: Dr. David Miramontes MD ~ Signed [facility] Work Phone: Discharge summary Author Abhinav Leigh [facility] Note Date/Time November 02, 2024 5:15am [facility] Medical Records Department [address] [place] [address] Emergency Department Summary 11/02/24 MR#: [id number] Acct: [id number] Name: GILMAKEL XAVIER Angel Rep #:[id number] : 1940 84 From: Abhinav Leigh MD PCP: Dr. David Miramontes MD Status:R EG ER Location: ED HPI HPI - Fall History of Present Illness Chief Complaint: Fall Informant: patient and SNF (I spoke to staff at the extended care facility. Unwitnessed fall tonight. Reportedly neck pain even though he is denying that now.) Occured/Mechanism Occurred: Today Mechanism/Context: Yes same level fall Usually ambulates: Walker Pain/Injury Pain Location: head and neck Narrative Narrative: 84-year-old male recently placed on extended care facility. He is currently at [facility]. Tonight they found him in his room on the floor. It was an unwitnessed fall. No idea if he had any LOC. When they went to move himhe reportedly had neck pain even though currently has no complaints. I spoke tostaff at the correction facility. Patient's been seen at least 3-4 times in the last several weeks for falls. Prior similar symptoms: Yes Recent Illness/Hospitalization: No PFSH PFSH Medical History Alzheimers disease [...] caffeine: No ROS ROS ED ROS Narrative Denies but patient does have dementia. Review of Systems ROS Unobtainable: due to mental status EXAM Physical Exam Narrative Exam Narrative: 84-year-old male sitting upright in bed. Vital signs stable afebrile. Pulse ox90% on room air no hypoxia. He is in no distress. There is no family present. H EENT exam pupils round reactive to light extremities are intact. Patient had extensive bruising of his forehead and face currently is nontender. He had a prior hematoma in his right forehead on prior visit. There is no dental injury. There is no acute bruising or laceration on his scalp. There is old bruising on his forehead and face. C-spine and trachea nontender. Back and spine nontender. Lungs clear to auscultation bilaterally. Heart regular rhythm rate about 60 no murmur. Chest wall ribs nontender. Abdomen soft nontender. Movingall 4 extremities. Normal storeperson strength. Dorsi plantarflexion intact. He can flex extend at both hips and knees. There is no hip tenderness. No shortening or rotation. Back nontender no bruising. Neurologically is awake alert. He will answer questions but he is demented and confused that is his baseline. Const Vital Signs: 11/02/24 03:30 11/02/24 03:45 11/02/24 03:47 Temperature 97.8 F Temperature Source Oral Pulse Rate 59 L 65 Respiratory Rate 18 16 Respiratory Effort Normal Blood Pressure 115/63 115/63 Blood Pressure Mean 80 80 Pulse Ox 90 98 Oxygen Delivery Method Room Air Room Air Room Air Positive well nourished and well developed; Negative for cachectic, contracturesor unkempt General Appearance ED: well developed and NAD; Negative for unkempt, cachectic or contractures Nutritional Appearance: Negative for cachectic HEENT Reports normocephalic HEENT Narrative: Multiple forehead and facial bruises. But they are nontender. He had a recent forehead contusion from a prior fall. trauma, contusion and hematoma; Negative for atraumatic Eyes PERRL and EOMs intact bilaterally Neck full ROM, no lymphadenopathy and supple Neck Narrative: No C-spine tenderness. No tracheal tenderness. Chest Wall inspection of chest normal and palpation of chest normal Resp normal respiratory effort, no retractions and clear to auscultation bilaterally Cardio regular rate, regular rhythm, S1 normal heart sound, S2 normal heart sound and no murmurs GI non-tender, non-distended and no masses Auscultation: normoactive bowel sounds Palpation: soft; Negative for guarding or rebound tenderness present Back/Spine no CVA tenderness Back/Spine Narrative: No lumbar, thoracic or cervical tenderness no neck tenderness. Cervical Spine: Negative for cervical spine tenderness Lumbar Spine / Lower Back: Negative for lumbar spinal tenderness Neuro CN's II-XII intact bilaterally, moves all extremities and no focal motor deficits Neuro Narrative: Awake. But demented. Sensorium / Orientation: alert, oriented to person, orientation impaired and confused; Negative for oriented to place or oriented to time Motor Exam: strength 5/5 throughout Psych mental status grossly normal and thought process normal Appearance: Negative for unkempt Skin Lesions: no lesions MDM MDM MDM Narrative Medical decision making narrative: 84-year-old male with dementia nursing out unwitnessed fall. Nursing is concerned because they feel he had neck pain. This patient's been seen here multiple times over the last several weeks for falls. CAT scan of his head and neck will be obtained. He is on the blood thinner Eliquis due to a history of A-fib. He has had recent screening labs are unremarkable. Repeat exam at 5:15 AM unchanged. CAT scans of his head and neck showed chronicchanges and a resolving forehead hematoma but no acute fractures or intracranialbleeds. He will be discharged back to extended-care facility. History & Record Review Discussion w/independent historian: Patient Additional record(s) reviewed:: Prior inpatient record, Prior outpatient record,Prior ED visit and Prior labs Radiography Diagnostic Testing: Clinical Impression(s) from Imaging Studies Brain CT 11/02/24 03:56 IMPRESSION: Unchanged right frontal acute subgaleal soft tissue hematoma. No CT evidence of an acute traumatic brain abnormality. Reading Location: [facility] Cervical Spine CT 11/02/24 03:56 IMPRESSION: No CT evidence of an acute traumatic abnormality. Reading Location: [facility] CAT scan brain without contrast shows no acute fracture or intracranial bleed interpreted myself awaiting radiology read. CT C-spine shows chronic degenerative changes cervical spine but no acute fracture. Awaiting radiologist read. Discharge Plan Triage Chief Complaint: Fall ED Provider: Abhinav Leigh Dx/Rx/DC Orders Clinical Impression: Fall, Anticoagulant long-term use, Head injury, History of atrial fibrillation Instructions: ED Head Injury (Adult) Prescriptions: No Action terazosin 5 mg capsule [...] Provider] - As Needed Activity Restrictions/Additional Instructions: Tylenol for pain. CAT scans tonight of his head and neck were negative. Follow-up with either his doctor or your auditor medical claims to discuss if he should remain on anticoagulation due to his history of the falls you may want toconsider taking him off of the Eliquis. Print Language: Irish Disposition Disposition: Home, Self Care What to do if you have Problems For any increased pain, shortness of breath, bleeding, nausea or vomiting, chestpain, or any unexpected problems, contact your Primary Care Provider. Call [facility] ([phone]) or report to the closest Emergency Room. Call 911 if necessary. 11/02/24 0515 <Electronically signed by Abhinav Leigh MD> Cosigner Signature (if applicable): CC: Dr. 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) [facility] Diagnosis Onset Date Resolution Status Adult failure to thrive acut e Chronic anticoagulation acut e Fall acute History of atrial fibrillation acute [facility] Work Phone: Evaluation noteNo assessment information available [facility] Work Phone: Evaluation note* Diagnosis Gross hematuria- Primary [facility] Instructions The CT scan showed no broken bones or internal bleeding. Ice and take Tylenol every 6 hours as needed.[facility] Work Phone: Hospital Discharge instructionsAdditional Instructions Follow-up with your doctor as needed. Ice to his wrist and hand There is no broken bone in his wrist or hand. This is all from arthritis.[facility] Work Phone: Hospital Discharge instructionsAdditional Instructions Tylenol for pain. CAT scans tonight of his head and neck were negative. Follow-up with either his doctor or your auditor medical claims to discuss if he should remain on anticoagulation due to his history of the falls you may want to consider taking him off of the Eliquis.[facility] Work Phone: Reason for referral (narrative)No reason for referral information availableWPremier Health [facility] Work Phone: Advance Directives No Advanced Directives Records FoundDocuments on File Type Date Recorded Patient Children'S Ministry Director Expl anation Advance Directive(s) 04/29/2021 2:28 PM Advance Directive(s) 09/08/2016 1:42 PM Advance Directive(s) 08/31/2016 10:18 AM Advance Directive(s) 04/09/2016 12:30 PM Advance Directive(s) 04/06/2016 10:07 AM Advance Directive(s) 10/09/2011 11:10 AM Advance Directive Response Recorded Date/ Time Advance Directives No October 10:42am Living Will No October 20 2 8:26pm Power of Survey Associate No October 20 8:26pm Advance Directive Response Recorded Date/ Time Advance Directives No October 10:42am Living Will No October 21 1:16am Power of Survey Associate No October 21 1:16am Documents on File Type Date Recorded Patient Children'S Ministry Director Expl anation Advance Directive(s) 04/29/2021 2:28 PM Advance Directive(s) 10/09/2011 11:10 AM Advance Directive Response Recorded Date/ Time Advance Directives No April 02, 2022 2:41pm Living Will No April 02 2:41pm Power of Survey Associate No April 02, 2022 2:41pm Advance Directive Response Recorded Date/ Time Advance Directives No April 02, 2022 3:41pm Living Will No April 02 3:41pm Power of Survey Associate No April 02, 2022 3:41pm Advance Directive Response Recorded Date/ Time Advance Directives No December 02, 2022 9:40am Living Will No December 02 9:40am Power of Survey Associate No December 02 9:40am Advance Directive Response [...] Do you have a Healthcare Power of Survey Associate? Yes October 27, 2024 8:39pm Advance Directive Response Recorded Date/ Time Advance Directives No September 15 1:51pm Do you have a Healthcare Power of Survey Associate? Yes October 27, 2024 8:39pm Do you have a Healthcare Power of Survey Associate? Yes October 29, 2024 9:57am Name of Medical Power of Survey Associate Jhonny Dillard October 29, 2024 9:57am Advance Directive Response Recorded Date/ Time Advance Directives No September 15 1:51pm Do you have a Healthcare Power of Survey Associate? Yes October 27, 2024 8:39pm Do you have a Healthcare Power of Survey Associate? No November 02, 2024 3:46am Do you have a Healthcare Power of Survey Associate? Yes October 29, 2024 9:57am Name of Medical Power of Survey Associate Jhonny Dillard October 29, 2024 9:57am Chief [...] DEBILITY FALL, DEBILITY LAB WORK LAB WORK SKILLED NURSING LAB WORK MONTHLY EXAM Chief Complaint FALL, DEBILITY FALL, DEBILITY FALL, DEBILITY FALL, DEBILITY LAB WORK LAB WORK SKILLED NURSING LAB WORK SKILLED NURSING LABWORK MONTHLY EXAM Chief Complaint FALL, DEBILITY FALL, DEBILITY FALL, DEBILITY FALL, DEBILITY LAB WORK LAB WORK SKILLED NURSING LAB WORK SKILLED NURSING LABWORK MONTHLY EXAM SKILLED NURSING LAB WORK Chief Complaint SKILLED NURSING LAB WOR K MONTHLY EXAM SKILLED NURSING LAB WORK MONTHLY EXAM MONTHLY EXAM SKILLED NURSING LAB WORK Chief Complaint MONTHLY EXAM SKILLED NURSING LAB WORK MONTHLY EXAM new problem MONTHLY EXAM SKILLED NURSING LABWORK Chief Complaint MONTHLY EXAM SKILLED NURSING LAB WORK MONTHLY EXAM ANNUAL EXAM MONTHLY EXAM SKILLED NURSING LAB WORK Chief Complaint SKILLED NURSING LAB WOR K NEW CONCERN MONTHLY EXAM LABWORK Chief Complaint Admit Date Pacer Check Remote February 14, 2024 12:11am MONTHLY EXAM February 15, 2024 9:13pm MONTHLY EXAM March 02, 2024 11 :09am NEW CONCERN March 13, 2024 1 :23pm SKILLED NURSING LAB WORK April 04, 2024 5:00am SKILLED NURSING LAB WORK April 07, 2024 4:00am SKILLED NURSING LAB WORK April 07, 2024 10:45am MONTHLY EXAM April 11, 2024 12:58pm SKILLED NURSING LAB WORK April 13 5:00am LABWORK April [...] NEW CONCERN March 13, 2024 1 :23pm SKILLED NURSING LAB WORK April 04, 2024 5:00am SKILLED NURSING LAB WORK April 07, 2024 4:00am SKILLED NURSING LAB WORK April 07, 2024 10:45am MONTHLY EXAM April 11, 2024 12:58pm SKILLED NURSING LAB WORK April 13 5:00am LABWORK April [...] NEW CONCERN March 13, 2024 1 :23pm SKILLED NURSING LAB WORK April 04, 2024 5:00am SKILLED NURSING LAB WORK April 07, 2024 4:00am SKILLED NURSING LAB WORK April 07, 2024 10:45am MONTHLY EXAM April 11, 2024 12:58pm SKILLED NURSING LAB WORK April 13 5:00am LABWORK April [...] NEW CONCERN March 13, 2024 1 :23pm SKILLED NURSING LAB WORK April 04, 2024 5:00am SKILLED NURSING LAB WORK April 07, 2024 4:00am SKILLED NURSING LAB WORK April 07, 2024 10:45am MONTHLY EXAM April 11, 2024 12:58pm SKILLED NURSING LAB WORK April 13 5:00am LABWORK April [...] TOES PVD May 30, 2024 8:36 am SKILLED NURSING LAB WORK June 05, 2024 4: 00am Chief Complaint Admit Date SKILLED NURSING LAB WORK April 04, 2024 5:00am SKILLED NURSING LAB WORK April 07, 2024 4:00am SKILLED NURSING LAB WORK April 07, 2024 10:45am MONTHLY EXAM MD April 11, 2024 12:58pm SKILLED NURSING LAB WORK April 13 5:00am LABWORK April [...] TOES PVD May 30, 2024 8:36 am SKILLED NURSING LAB WORK June 05, 2024 4: 00am [...] TOES PVD May 30, 2024 8:36 am SKILLED NURSING LAB WORK June 05, 2024 4: 00am LABWORK June 23, 2024 5:0 0am LABWORK July 21, 2024 5:00a m SKILLED NURSING LAB WORK August 01, 2024 5:0 0am [...] TOES PVD May 30, 2024 8:36 am SKILLED NURSING LAB WORK June 05, 2024 4: 00am LABWORK June 23, 2024 5:0 0am MONTHLY EXAM July 18, 2024 3:15p m LABWORK July 21, 2024 5:00a m SKILLED NURSING LAB WORK August 01, 2024 5:0 0am [...] TOES PVD May 30, 2024 8:36 am SKILLED NURSING LAB WORK June 05, 2024 4: 00am LABWORK June 23, 2024 5:0 0am MONTHLY EXAM July 18, 2024 3:15p m NEW PROBLEM/CONCERN July 20, 2024 3:45p m LABWORK July 21, 2024 5:00a m SKILLED NURSING LAB WORK August 01, 2024 5:0 0am [...] TOES PVD May 30, 2024 8:36 am SKILLED NURSING LAB WORK June 05, 2024 4: 00am LABWORK June 23, 2024 5:0 0am MONTHLY EXAM July 18, 2024 3:15p m NEW PROBLEM/CONCERN July 20, 2024 3:45p m LABWORK July 21, 2024 5:00a m SKILLED NURSING LAB WORK August 01, 2024 5:0 0am [...] TOES PVD May 30, 2024 8:36 am SKILLED NURSING LAB WORK June 05, 2024 4: 00am LABWORK June 23, 2024 5:0 0am MONTHLY EXAM July 18, 2024 3:15p m NEW PROBLEM/CONCERN July 20, 2024 3:45p m LABWORK July 21, 2024 5:00a m SKILLED NURSING LAB WORK August 01, 2024 5:0 0am [...] TOES PVD May 30, 2024 8:36 am SKILLED NURSING LAB WORK June 05, 2024 4: 00am LABWORK June 23, 2024 5:0 0am MONTHLY EXAM July 18, 2024 3:15p m NEW PROBLEM/CONCERN July 20, 2024 3:45p m LABWORK July 21, 2024 5:00a m SKILLED NURSING LAB WORK August 01, 2024 5:0 0am [...] TOES PVD May 30, 2024 8:36 am SKILLED NURSING LAB WORK June 05, 2024 4: 00am LABWORK June 23, 2024 5:0 0am NEW CONCERN July 04, 2024 4:35pm MONTHLY EXAM July 18, 2024 3:15p m NEW PROBLEM/CONCERN July 20, 2024 3:45p m LABWORK July 21, 2024 5:00a m SKILLED NURSING LAB WORK August 01, 2024 5:0 0am LABWORK August 02, 2024 5:00a m MONTHLY EXAM August 15, 2024 7:30 pm Pacer Check Remote August 21, 2024 4:29 am NEW CONCERN August 21, 2024 3:15 pm SKILLED NURSING LAB WORK August 22, 2024 5: 00am NEW CONCERN August 25, 2024 2:15 pm LABWORK August 31, 2024 5:00a m SKILLED NURSING LAB WORK September 07, 2024 5: 00am Chief Complaint Admit Date LABWORK June 23, 2024 5:0 0am NEW CONCERN July 04, 2024 4:35pm MONTHLY EXAM July 18, 2024 3:15p m NEW PROBLEM/CONCERN July 20, 2024 3:45p m LABWORK July 21, 2024 5:00a m SKILLED NURSING LAB WORK August 01, 2024 5:0 0am LABWORK August 02, 2024 5:00a m MONTHLY EXAM August 15, 2024 7:30 pm Pacer Check Remote August 21, 2024 4:29 am NEW CONCERN August 21, 2024 3:15 pm SKILLED NURSING LAB WORK August 22, 2024 5: 00am NEW CONCERN August 25, 2024 2:15 pm Monthly Exam August 29, 2024 4:04p m LABWORK August 31, 2024 5:00a m SKILLED NURSING LAB WORK September 07, 2024 5: 00am Chief Complaint Admit Date LABWORK June 23, 2024 5:0 0am NEW CONCERN July 04, 2024 4:35pm MONTHLY EXAM July 18, 2024 3:15p m NEW PROBLEM/CONCERN July 20, 2024 3:45p m LABWORK July 21, 2024 5:00a m SKILLED NURSING LAB WORK August 01, 2024 5:0 0am LABWORK August 02, 2024 5:00a m MONTHLY EXAM August 15, 2024 7:30 pm Pacer Check Remote August 21, 2024 4:29 am NEW CONCERN August 21, 2024 3:15 pm SKILLED NURSING LAB WORK August 22, 2024 5: 00am NEW CONCERN August 25, 2024 2:15 pm Monthly Exam August 29, 2024 4:04p m LABWORK August 31, 2024 5:00a m SKILLED NURSING LAB WORK September 07, 2024 5: 00am New Concern September 19, 2024 7:48 am Chief Complaint Admit Date LABWORK June 23, 2024 5:0 0am NEW CONCERN July 04, 2024 4:35pm MONTHLY EXAM July 18, 2024 3:15p m NEW PROBLEM/CONCERN July 20, 2024 3:45p m LABWORK July 21, 2024 5:00a m SKILLED NURSING LAB WORK August 01, 2024 5:0 0am LABWORK August 02, 2024 5:00a m MONTHLY EXAM August 15, 2024 7:30 pm Pacer Check Remote August 21, 2024 4:29 am NEW CONCERN August 21, 2024 3:15 pm SKILLED NURSING LAB WORK August 22, 2024 5: 00am NEW CONCERN August 25, 2024 2:15 pm Monthly Exam August 29, 2024 4:04p m LABWORK August 31, 2024 5:00a m SKILLED NURSING LAB WORK September 07, 2024 5: 00am New Concern September 19, 2024 7:48 am New Concern September 25, 2024 4:26 pm Chief Complaint Admit Date NEW CONCERN July 04, 2024 4:35pm MONTHLY EXAM July 18, 2024 3:15p m NEW PROBLEM/CONCERN July 20, 2024 3:45p m LABWORK July 21, 2024 5:00a m SKILLED NURSING LAB WORK August 01, 2024 5:0 0am LABWORK August 02, 2024 5:00a m MONTHLY EXAM August 15, 2024 7:30 pm Pacer Check Remote August 21, 2024 4:29 am NEW CONCERN August 21, 2024 3:15 pm SKILLED NURSING LAB WORK August 22, 2024 5: 00am NEW CONCERN August 25, 2024 2:15 pm Monthly Exam August 29, 2024 4:04p m LABWORK August 31, 2024 5:00a m SKILLED NURSING LAB WORK September 07, 2024 5: 00am New Concern September 19, 2024 7:48 am SKILLED NURSING LAB WORK September 25, 2024 12 :00pm New Concern September 25, 2024 4:26 pm MONTHLY EXAM September 29, 2024 11: 44am Chief Complaint Admit Date NEW CONCERN July 04, 2024 4:35pm MONTHLY EXAM July 18, 2024 3:15p m NEW PROBLEM/CONCERN July 20, 2024 3:45p m LABWORK July 21, 2024 5:00a m SKILLED NURSING LAB WORK August 01, 2024 5:0 0am LABWORK August 02, 2024 5:00a m MONTHLY EXAM August 15, 2024 7:30 pm Pacer Check Remote August 21, 2024 4:29 am NEW CONCERN August 21, 2024 3:15 pm SKILLED NURSING LAB WORK August 22, 2024 5: 00am NEW CONCERN August 25, 2024 2:15 pm Monthly Exam August 29, 2024 4:04p m LABWORK August 31, 2024 5:00a m SKILLED NURSING LAB WORK September 07, 2024 5: 00am New Concern September 19, 2024 7:48 am SKILLED NURSING LAB WORK September 25, 2024 12 :00pm New Concern September 25, 2024 4:26 pm MONTHLY EXAM September 29, 2024 11: 44am fall, head injury, on thinners October [id number] 8:34pm Chief Complaint Admit Date NEW CONCERN July 04, 2024 4:35pm MONTHLY EXAM July 18, 2024 3:15p m NEW PROBLEM/CONCERN July 20, 2024 3:45p m LABWORK July 21, 2024 5:00a m SKILLED NURSING LAB WORK August 01, 2024 5:0 0am LABWORK August 02, 2024 5:00a m MONTHLY EXAM August 15, 2024 7:30 pm Pacer Check Remote August 21, 2024 4:29 am NEW CONCERN August 21, 2024 3:15 pm SKILLED NURSING LAB WORK August 22, 2024 5: 00am NEW CONCERN August 25, 2024 2:15 pm Monthly Exam August 29, 2024 4:04p m LABWORK August 31, 2024 5:00a m SKILLED NURSING LAB WORK September 07, 2024 5: 00am New Concern September 19, 2024 7:48 am SKILLED NURSING LAB WORK September 25, 2024 12 :00pm New Concern September 25, 2024 4:26 pm MONTHLY EXAM September 29, 2024 11: 44am fall, head injury, on thinners October [id number] 8:34pm wrist injury October 29, 2024 9: 51am Chief Complaint Admit Date MONTHLY EXAM July 18, 2024 3:15p m NEW PROBLEM/CONCERN July 20, 2024 3:45p m LABWORK July 21, 2024 5:00a m SKILLED NURSING LAB WORK August 01, 2024 5:0 0am LABWORK August 02, 2024 5:00a m MONTHLY EXAM August 15, 2024 7:30 pm Pacer Check Remote August 21, 2024 4:29 am NEW CONCERN August 21, 2024 3:15 pm SKILLED NURSING LAB WORK August 22, 2024 5: 00am NEW CONCERN August 25, 2024 2:15 pm Monthly Exam August 29, 2024 4:04p m LABWORK August 31, 2024 5:00a m SKILLED NURSING LAB WORK September 07, 2024 5: 00am New Concern September 19, 2024 7:48 am SKILLED NURSING LAB WORK September 25, 2024 12 :00pm New Concern September 25, 2024 4:26 pm MONTHLY EXAM September 29, 2024 11: 44am fall, head injury, on thinners October [id number] 8:34pm wrist injury October 29, 2024 9: 51am FALL November 02, 2024 3:29am Family History No Family History Records Found [...] or prosecute any alcohol or drug abuse patient.[facility] the event this information is protected by the Federal Confidentiality of Alcohol and Drug Abuse Patient Records regulations: The Federal rules restrict any use of the information to criminally investigate or prosecute any alcohol or drug abuse patient.[facility] the event this information is protected by the Federal Confidentiality of Alcohol and Drug Abuse Patient Records regulations: The Federal rules restrict any use of the information to criminally investigate or prosecute any alcohol or drug abuse patient.[facility] the event this information is protected by the Federal Confidentiality of Alcohol and Drug Abuse Patient Records regulations: The Federal rules restrict any use of the information to criminally investigate or prosecute any alcohol or drug abuse patient.[facility] the event this information is protected by the Federal Confidentiality of Alcohol and Drug Abuse Patient Records regulations: The Federal rules restrict any use of the information to criminally investigate or prosecute any alcohol or drug abuse patient.[facility] the event this information is protected by the Federal Confidentiality of Alcohol and Drug Abuse Patient Records regulations: The Federal rules restrict any use of the information to criminally investigate or prosecute any alcohol or drug abuse patient.[facility] the event this information is protected by the Federal Confidentiality of Alcohol and Drug Abuse Patient Records regulations: The Federal rules restrict any use of the information to criminally investigate or prosecute any alcohol or drug abuse patient.[facility] Reason for Visit (unrecogniz ed [...] 2024 End: April 19, 2024 Marimar Zimmer CASE BRIEFER, CASE BRIEFER-C Attending Provider Active Start: April 19, 2024 End: April 19, 2024 Team Status: Inactive Member Role Status Dates Dr. David Miramontes MD Primary Care Provider Active Start: May 01, 2024 End: May 01, 2024 Marimar Zimmer CASE BRIEFER, CASE BRIEFER-C Attending Provider Active Start: May 01, 2024 End: May 01, 2024 Team Status: Inactive Member Role Status Dates Dr. 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 Nicolas Cardenas MD Family Provider Active Dr. Nicolas Cardenas MD Primary Care Provider Active Team Status: Inactive Member Role Status Dates Dr. Nicolas Cardenas MD Primary Care Provider Active Marimar Zimmer CASE BRIEFER, CASE BRIEFER-C Attending Provider Active Team Status: Inactive Member [...] 2024 End: March 13, 2024 Marimar Zimmer CASE BRIEFER, CASE BRIEFER-C Attending Provider Active Start: March 13, 2024 [...] 2024 End: May 01, 2024 Marimar Zimmer CASE BRIEFER, CASE BRIEFER-C Attending Provider Active Start: May 01, 2024 End: May 01, 2024 Team Status: Inactive Member Role/Relationship Status Dates Dr. David Miramontes MD Primary Care Provider Active Start: May 11, 2024 End: May 11, 2024 Marimar Zimmer CASE BRIEFER, CASE BRIEFER-C Attending Provider Active Start: May 11, 2024 [...] 2024 End: May 18, 2024 Marimar Zimmer CASE BRIEFER, CASE BRIEFER-C Attending Provider Active Start: May 18, 2024 [...] 2024 End: May 30, 2024 Marimar Zimmer CASE BRIEFER, CASE BRIEFER-C Attending Provider Active Start: May 30, 2024 [...] 2024 End: May 18, 2024 Marimar Zimmer CASE BRIEFER, CASE BRIEFER-C Attending Provider Active Start: May 18, 2024 [...] Inactive Member Role/Relationship Status Dates Dr. David Miramontse MD Primary Care Provider Active Start: May 30, 2024 End: May 30, 2024 Marimar Zimmer CASE BRIEFER, CASE BRIEFER-C Attending Provider Active Start: May 30, 2024 [...] Inactive Member Role/Relationship Status Dates Marimar Zimmer CASE BRIEFER, CASE BRIEFER-C Attending Provider Active Start: July 20, 2024 [...] 2024 End: August 15, 2024 Marimar Zimmer CASE BRIEFER, CASE BRIEFER-C Attending Provider Active Start: August 15, 2024 [...] 2024 End: August 21, 2024 Marimar Zimmer CASE BRIEFER, CASE BRIEFER-C Attending Provider Active Start: August 21, 2024 [...] 2024 End: August 25, 2024 Marimar Zimmer CASE BRIEFER, CASE BRIEFER-C Attending Provider Active Start: August 25, 2024 [...] 2024 End: May 30, 2024 Marimar Zimmer CASE BRIEFER, CASE BRIEFER-C Attending Provider Active Start: May 30, 2024 [...] 2024 End: July 04, 2024 Marimar Zimmer CASE BRIEFER, CASE BRIEFER-C Attending Provider Active Start: July 04, 2024 End: July 04, 2024 Team Status: Inactive Member Role/Relationship Status Dates Dr. David Miramontes MD Primary Care Provider Active Start: July 18, 2024 End: July 18, 2024 Dr. David Miramontes MD Attending Provider Active Start: July 18, 2024 End: July 18, 2024 Team Status: Inactive Member Role/Relationship Status Dates Marimar Zimmer CASE BRIEFER, CASE BRIEFER-C Attending Provider Active Start: July 20, 2024 [...] 2024 End: August 15, 2024 Marimar Zimmer CASE BRIEFER, CASE BRIEFER-C Attending Provider Active Start: August 15, 2024 [...] 2024 End: August 21, 2024 Marimar Zimmer CASE BRIEFER, CASE BRIEFER-C Attending Provider Active Start: August 21, 2024 End: August 21, 2024 Team Status: Inactive Member Role/Relationship Status Dates Dr. David Miramontes MD Primary Care Provider Active Start: August 25, 2024 End: August 25, 2024 Marimar Zimmer CASE BRIEFER, CASE BRIEFER-C Attending Provider Active Start: August 25, 2024 [...] 2024 End: July 04, 2024 Marimar Zimmer CASE BRIEFER, CASE BRIEFER-C Attending Provider Active Start: July 04, 2024 End: July 04, 2024 Team Status: Inactive Member Role/Relationship Status Dates Dr. David Miramontes MD Primary Care Provider Active Start: July 18, 2024 End: July 18, 2024 Dr. David Miramontes MD Attending Provider Active Start: July 18, 2024 End: July 18, 2024 Team Status: Inactive Member Role/Relationship Status Dates Marimar Zimmer CASE BRIEFER, CASE BRIEFER-C Attending Provider Active Start: July 20, 2024 [...] 2024 End: August 15, 2024 Marimar Zimmer CASE BRIEFER, CASE BRIEFER-C Attending Provider Active Start: August 15, 2024 [...] 2024 End: August 21, 2024 Marimar Zimmer CASE BRIEFER, CASE BRIEFER-C Attending Provider Active Start: August 21, 2024 [...] End: August 25, 2024 Marimar Zimmer NP, CASE BRIEFER-C Attending Provider Active Start: August 25, 2024 [...] End: September 19, 2024 Marimar Zimmer NP, CASE BRIEFER-C Attending Provider Active Start: September 19, 2024 [...] 2024 End: September 25, 2024 Marimar Zimmer CASE BRIEFER, CASE BRIEFER-C Attending Provider Active Start: September 25, 2024 End: September 25, 2024 Team Status: Inactive Member Role/Relationship Status Dates Dr. David Miramontes MD Primary Care Provider Active Start: July 04, 2024 End: July 04, 2024 Marimar Zimmer CASE BRIEFER, CASE BRIEFER-C Attending Provider Active Start: July 04, 2024 End: July 04, 2024 Team Status: Inactive Member Role/Relationship Status Dates Dr. David Miramontes MD Primary Care Provider Active Start: July 18, 2024 End: July 18, 2024 Dr. David Miramontes MD Attending Provider Active Start: July 18, 2024 End: July 18, 2024 Team Status: Inactive Member Role/Relationship Status Dates Marimar Zimmer CASE BRIEFER, CASE BRIEFER-C Attending Provider Active Start: July 20, 2024 [...] 2024 End: August 15, 2024 Marimar Zimmer CASE BRIEFER, CASE BRIEFER-C Attending Provider Active Start: August 15, 2024 [...] 2024 End: August 21, 2024 Marimar Zimmer CASE BRIEFER, CASE BRIEFER-C Attending Provider Active Start: August 21, 2024 [...] 2024 End: August 25, 2024 Marimar Zimmer CASE BRIEFER, CASE BRIEFER-C Attending Provider Active Start: August 25, 2024 End: August 25, 2024 Team Status: Inactive Member Role/Relationship Status Dates Dr. David Miramontes MD Primary Care Provider Active Start: August 29, 2024 End: August 29, 2024 Dr. David Miramontes MD Attending Provider Active Start: August 29, 2024 End: August 29, 2024 Team Status: Active Member Role/Relationship Status Dates Dr. David Miraomntes MD Primary Care Provider Active Start: August [...] 2024 End: September 19, 2024 Marimar Zimmer CASE BRIEFER, CASE BRIEFER-C Attending Provider Active Start: September 19, 2024 End: September 19, 2024 Team Status: Inactive Member Role/Relationship Status Dates Dr. David Miramontes MD Primary Care Provider Active Start: September 25, 2024 End: September 25, 2024 Marimar Zimmer CASE BRIEFER, CASE BRIEFER-C Attending Provider Active Start: September 25, 2024 End: September 25, 2024 Team Status: Inactive Member Role/Relationship Status Dates Dr. David Miramontes MD Primary Care Provider Active Start: September 29, 2024 End: September 29, 2024 Dasia Barrett CASE BRIEFER-C Attending Provider Active Start: September 29, 2024 [...] October 29, 2024 End: October 29, 2024 Team Status: Inactive Member Role/Relationship Status Dates Dr. David Miramontes MD Primary Care Provider Active Start: July 18, 2024 End: July 18, 2024 Dr. David Miramontes MD Attending Provider Active Start: July 18, 2024 End: July 18, 2024 Team Status: Inactive Member Role/Relationship Status Dates Marimar Zimmer CASE BRIEFER, CASE BRIEFER-C Attending Provider Active Start: July 20, 2024 [...] 2024 End: August 15, 2024 Marimar Zimmer CASE BRIEFER, CASE BRIEFER-C Attending Provider Active Start: August 15, 2024 [...] End: August 21, 2024 Marimar Zimmer NP, CASE BRIEFER-C Attending Provider Active Start: August 21, 2024 [...] 2024 End: August 25, 2024 Marimar Zimmer CASE BRIEFER, CASE BRIEFER-C Attending Provider Active Start: August 25, 2024 [...] End: September 19, 2024 Marimar Zimmer NP, CASE BRIEFER-C Attending Provider Active Start: September 19, 2024 [...] End: September 25, 2024 Marimar Zimmer NP, CASE BRIEFER-C Attending Provider Active Start: September 25, 2024 End: September 25, 2024 Team Status: Inactive Member Role/Relationship Status Dates Dr. David Miramontes MD Primary Care Provider Active Start: September 29, 2024 End: September 29, 2024 Dasia Barrett CASE BRIEFER-C Attending Provider Active Start: September 29, 2024 End: September 29, 2024 Team Status: Inactive Member Role/Relationship Status Dates Dr. David Miramontes MD Primary Care Provider Active Start: October 27, 2024 End: October 27, 2024 Dr. Abhinav Leigh MD Attending Provider Active S tart: October 27, 2024 [...] October 29, 2024 End: October 29, 2024 Team Status: Inactive Member Role/Relationship Status Dates Dr. David Miramontes MD Primary Care Provider Active Start: November 02, 2024 End: November 02, 2024 Dr. Abhinav Leigh MD Emergency Provider Active S tart: November 02, 2024 End: November 02, 2024 Team Status: Active Member Role/Relationship Status Dates Dr. David Miramontes MD Primary Care Provider Active Start: November 02, 2024 David GARCIA MD Attending Provider Active Start: November 02, 2024 Goals (unrecognized section and content) Goals [...] section and content) DATE CREATED AUTHOR 06/08/2022 [facility] DATE CREATED AUTHOR AUTHOR'S ORGANIZ ATION 07/17/2024 [facility] DATE CREATED AUTHOR AUTHOR'S ORGANIZ ATION 11/06/2024 [facility] FOR RECORDS PERTAINING TO PATIENTS WHO ARE [...] BE BASED ON THE PRIMARY CLINICAL RECORDS. [facility] [place], [facility]. provides no warranty or guarantee of the accuracy or completeness of information in this document.
--- OUTSIDE RECORDS SUMMARY | 2024-11-07 04:12 | XMS RPT_ITS | CCD ---
Author Organization [facility] Care Team Providers [facility] [employer] [facility] Executive Director Name Role Phone Nicolas Cardenas MD Primary Care Provider Dr. Nicolas Cardenas Primary Care Provider Dr. Abhinav Leigh Emergency Provider Dr. Robinson Nguyen Admit Provider Dr. Robinson Nguyen Attending Provider Dr. Robinson Nguyen Other Provider Dr. Kevin Nichole Attending Provider Dr. Kevin Nichole Other Provider Dr. Desire Leung Attending Provider Nicolas Cardenas MD Primary Care Provider Mesha COMMUNITY LIFE DIRECTOR, COMMUNITY LIFE DIRECTOR-C Marimar Attending Provider Dr. Nicolas Justin Primary Care Provider Mesha COMMUNITY LIFE DIRECTOR, COMMUNITY LIFE DIRECTOR-C Marimar Attending Provider Dr. David Nina Attending Provider Unavailable Primary Care Provider UnavailNICOLAS Blankenship Referring Unavailable NICOLAS CARDENAS Attending Unavailable NICOLAS CARDENAS Primary Care Unavailable Dr. Nicolas Cardenas Primary Care Provider Mesha COMMUNITY LIFE DIRECTOR, COMMUNITY LIFE DIRECTOR-C Marimar Attending Provider Dr. David Nina Attending Provider Dr. Nicolas Cardenas Primary Care Provider Mesha COMMUNITY LIFE DIRECTOR, COMMUNITY LIFE DIRECTOR-C Marimar Attending Provider Dr. Frandy Ninaongbe Attending Provider Dr. Nicolas Cardenas Primary Care Provider Mesha COMMUNITY LIFE DIRECTOR, COMMUNITY LIFE DIRECTOR-C Marimar Attending Provider Dr. David Miramontes Attending Provider [phone] Dr. David Miramontes MD Primary Care Provider Dr. Edson Quinn MD Attending Provider Dr. Edson Quinn MD Referring Provider [phone] Dr. David Miramontes MD Attending Provider Isidro Can Attending Provider Mesha COMMUNITY LIFE DIRECTOR-CMarimar Attending Provider David Miramontes MD Attending Provider [...] David Miramontes MD Primary Care Provider Mesha COMMUNITY LIFE DIRECTOR-CMarimar Attending Provider Unavailable Primary Care Provider Unavailabl DIANA Sampson Attending Unava ilable SELF Referring Unavailable Dr. David Miramontes MD Primary Care Provider Mesha COMMUNITY LIFE DIRECTOR-CMarimar Attending Provider David Miramontes MD Attending Provider Unavailapril Miramontes MD, Dr. Win Attending Provider [phone] David Miramontes MD Referring Provider Unavailapril Miramontes MD, Dr. Win Primary Care Provider [place] COMMUNITY LIFE DIRECTOR-C, Marimar Attending Provider Kai ALAMO, Dr. Sandhu Attending Provider [phone] Kai ALAMO, Dr. Sandhu Referring Provider Kulwinder ALAMO, Dr. Win Primary Care Provider David Miramontes MD Attending Provider Unavaila ble [place] COMMUNITY LIFE DIRECTOR-C, Marimar Attending Provider Kulwinder ALAMO, Dr. Win Attending Provider [phone] Kai ALAMO, Dr. Sandhu Attending Provider [phone] Kai ALAMO, Dr. Sandhu Referring Provider [phone] Kulwinder ALAMO, Dr. Win Primary Care Provider David Miramontes MD Attending Provider Unavaila ble [place] COMMUNITY LIFE DIRECTOR-C, Marimar Attending Provider Kulwinder LAAMO, Dr. Win Attending Provider [phone] Kulwinder ALAMO, Dr. Win Primary Care Provider David Miramontes MD Attending Provider Unavaila ble Ungerer COMMUNITY LIFE DIRECTOR-C, Dasia Attending Provider Reese ALAMO, Dr. La Emergency Provider Kulwinder ALAMO, Dr. Win Primary Care Provider Tickebenezer COMMUNITY LIFE DIRECTOR-C, Marimar Attending Provider Dr. Abhinav Leigh MD Attending Provider Oleghe, Efewongbe Primary Care Unavailable Oleghe OLS Efewongbe Attending Unavailabl e Oleghe, Efewongbe Primary Care Unavailable Oleghe OLS, Efewongbe Attending Unavailabl e Oleghe, Efewongbe Primary Care Unavailable Oleghe, Efewongbe Referring Unavailable Oleghe Efewongbe Attending Unavailable Oleghe, Efewongbe Primary Care Unavailable Abhinav Leigh Attending Unavailable Oleghe, Efewongbe Primary Care Unavailable [place] COMMUNITY LIFE DIRECTORMarimar Attending Unavailable Oleghe, Efewongbe Primary Care Unavailable Kai, [place] Referring Unavailable Kai, [place] Attending Unavailable Oleghe, Efewongbe Primary Care Unavailable Fatouton COMMUNITY LIFE DIRECTOR, Marimar Attending Unavailable Oleghe, Efewongbe Primary Care [...] Care Unavailable Kai, Edson Attending Unavailable Kai, [place] Referring Unavailable Oleghe, Efewongbe Primary Care Unavailable Oleghe OLS, Efewongbe Attending Unavailabl e Oleghe, Efewongbe Primary Care Unavailable Abhinav Leigh Attending Unavailable Oleghe, Efewongbe Primary Care Unavailable [place] COMMUNITY LIFE DIRECTOR, Marimar Attending Unavailable Kai, [place] Referring Unavailable Kai, Edson Attending Unavailable Oleghe, Efewongbe Primary Care Unavailable Oleghe, Efewongbe Primary Care Unavailable Kai, [place] Attending Unavailable Kai, Edson Referring Unavailable Oleghe, Efewongbe Primary Care Unavailable Oleghe, Efewongbe Attending Unavailable Oleghe, Efewongbe Primary Care Unavailable Oleghe, Efewongbe Attending Unavailable Oleghe, Efewongbe Primary Care Unavailable [place] COMMUNITY LIFE DIRECTOR, Marimar Attending Unavailable Oleghe, Efewongbe Primary Care Unavailable [place] COMMUNITY LIFE DIRECTOR, Marimar Attending Unavailable Oleghe, Efewongbe Primary Care Unavailable Dasia Barrett Attending Unavailable Oleghe, Efewongbe Primary Care Unavailable Kai, [place] Referring Unavailable Kai, [place] Attending Unavailable Oleghe, Efewongbe Primary Care Unavailable [place] COMMUNITY LIFE DIRECTOR, Marimar Attending Unavailable Oleghe, Efewongbe Primary Care Unavailable Oleghe, Efewongbe Attending Unavailable Oleghe, Efewongbe Primary Care Unavailable [place] COMMUNITY LIFE DIRECTOR, Marimar Attending Unavailable Oleghe, Efewongbe Primary Care Unavailable [place] COMMUNITY LIFE DIRECTOR, Marimar Attending Unavailable Oleghe, Efewongbe Primary Care Unavailable [place] COMMUNITY LIFE DIRECTOR, Marimar Attending Unavailable Oleghe, Efewongbe Primary Care Unavailable [place] COMMUNITY LIFE DIRECTOR, Marimar Attending Unavailable Oleghe, Efewongbe Primary Care Unavailable [place] COMMUNITY LIFE DIRECTOR, Marimar Attending Unavailable Oleghe, Efewongbe Primary Care Unavailable Isidro Can Attending Unavailable Oleghe, Efewongbe Primary Care Unavailable [place] COMMUNITY LIFE DIRECTOR, Marimar Attending Unavailable Oleghe, Efewongbe Primary Care Unavailable Oleghe, Efewongbe Attending Unavailable Oleghe, Efewongbe Primary Care Unavailable [place] COMMUNITY LIFE DIRECTOR, Marimar Attending Unavailable Oleghe, Efewongbe Primary Care Unavailable [place] COMMUNITY LIFE DIRECTOR, Marimar Attending Unavailable Oleghe, Efewongbe Primary Care [...] capsule (20 sources) Start: 9 End: 4 [place]-3 Fatty Acids-Fish Oil (Fish Oil) 360-1,200 mg [...] hydrochloride 5 mg oral tablet (20 sources) Z-pogjff-Z-aspartat e Receptor Antagonist Start: 3 End: 4 [...] A DAY 0 October 22, 2021 12:00am [place]-3 Fatty Acids (Fish Oil Concentrate) 1,000 mg capsule (20 sources) Start: 08-23-2018 End: 11-08-2018 take 1 capsule by mouth once daily [place]-3 Fatty Acids (Fish Oil Concentrate) 1,000 mg capsule Discontinued 1000 mg PO DAILY August 23, 2018 12:00am November 08, 2018 1:59pm Start: 08-23-2018 End: 11-08-2018 take 1 capsule by mouth once daily [place]-3 Fatty Acids (Fish Oil Concentrate) 1,000 mg capsule Discontinued 1000 MG PO DAILY August 22, 2018 11:00pm November 08, 2018 12:59pm Start: 08-23-2018 End: 11-08-2018 take 1 capsule by mouth once daily [place]-3 Fatty Acids (Fish Oil Concentrate) 1,000 mg [...] Comment on above: [facility]. Perflutren Lipid Microspheres (Definity) 1.1 [...] 5 mg oral capsule (20 sources) alpha-Adrenergic Rfanki Start: 08-05-2018 End: 07-08-2023 take 1 capsule [...] Long-term current use of anticoagulant; Translations: [senior living (current) use of anticoagulants] 10-30-2021 Episodic Other aftercare (2 sources) senior living (current) use of anticoagulants; Translations: [Long-term (current) [...] without Contrasto n 11-02-2024 Brain/Head without Contrast [facility] Imaging Services [address], [place] [id number] Brain/Head without Contrast MR#: [id number] Acct: [id number] Name: KEL DILLARD Rep #: [id number] : 1940 M 84 From: Grabiel ellis MD PCP: Dr. David Miramontes MD Status: REG ER Study: Brain/Head without Contrast Date of Exam: 06/23 Exam# [id number] Ordering Dr: Abhinav Leigh MD PROCEDURE: BRAIN/HEAD [...] an acute traumatic brain abnormality. Reading Location: [place] [address] CC: Dr. David Miramontes MD; Dr. Abhinav Leigh MD Retreader: Signed Normal [facility] Emergency Department Summary on 11-02-[address] [facility] Medical Records Department [address] [place] [address] Emergency Department Summary 11/02/24 MR#: [id number] Acct: [id number] Name: KEL DILLARD Rep #: [id number] : 1940 84 From: Abhinav Leigh MD [...] extended care facility. He is currently at [facility]. Tonight they found him in his room [...] symptoms: Yes Recent Illness/Hospitalizat ion: No PFSH [facility] Medical History Alzheimers disease Former smoker Dementia [...] soft nontender. 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 Dorsi plantarflexion intact. He can flex extend at both hips and knees. There is no hip tenderness. No shortening or rotation. Back nontender no bruising. Neurologically is awake (more content not included)... Normal [facility] Spine Cervical without Contr ason 11-02-2024 Spine Cervical without Contras [facility] Imaging Services [address] [place] [address] Spine Cervical without Contras MR#: [id number] Acct: [id number] Name: KEL DILLARD Rep #: [id number] : 1940 M 84 From: Grabiel ellis MD PCP: Dr. David Miramontes MD Status: REG ER Study: Spine Cervical without Contras Date of Exam: 0 11/02/24 Exam# [id number] Ordering Dr: Abhinav Leigh MD PROCEDURE: SPINE [...] of an acute traumatic abnormality. Reading Location: [place] [address] CC: Dr. David Miramontes MD; Dr. Abhinav Leigh MD Retreader: Signed Normal [facility] Emergency Department Summary on 10-29-[address] [facility] Medical Records Department [address] [place] [address] Emergency Department Summary 10/29/24 MR#: [id number] Acct: [id number] Name: KEL DILLARD Rep #: [id number] : 1940 84 From: Abhinav Leigh MD [...] HEENT exa (more content not included)... Normal [facility] Hand Min 3 Viewson 5 Hand Min 3 Views [facility] Imaging Services [address], [place] [address] Hand Min 3 Views MR#: [id number] Acct: [id number] Name: KEL DILLARD Rep #: [id number] : 1940 M 84 From: Sue [place] MD PCP: Dr. David Miramontes MD Status: REG ER Study: Hand Min 3 Views Date of Exam: 10/29/24 Exam# [id number] Ordering Dr: Abhinav Leigh MD PROCEDURE: HAND MIN 3 VIEWS 10/29/2024 REASON FOR EXAM: FALL TECHNIQUE: Procedure Code: [id number] Modality: DX Procedure: HAND MIN 3 VIEWS Laterality: Left COMPARISON: None. FINDINGS: Bones: No acute bony abnormalities. Joints: Unremarkable. Soft tissues: No soft tissue abnormalities. RAD/Hand Min 3 Views IMPRESSION: No acute osseous abnormalities. Reading Location: [facility] CC: Dr. David Miramontes MD; Dr. Abhinav Leigh MD Retreader: Signed Normal [facility] Wrist min 3 Viewson 10-30-19 25 Wrist min 3 Views [facility] Imaging Services [address], [place] [address] Wrist min 3 Views MR#: [id number] Acct: [id number] Name: KEL DILLARD Rep #: [id number] : 1940 M 84 From: Sue [place] MD PCP: Dr. David Miramontes MD Status: REG ER Study: Wrist min 3 Views Date of Exam: 10/29/24 Exam# [id number] Ordering Dr: Abhinav Leigh MD PROCEDURE: WRIST [...] acute osseous abnormalities. Mild arthritis. Reading Location: [facility] CC: Dr. David Miramontes MD; Dr. Abhinav Leigh MD Retreader: Signed Normal [facility] Brain/Head without Contrasto n 10-27-2024 Brain/Head without Contrast [facility] Imaging Services [address] [place] [id number] Brain/Head without Contrast MR#: [id number] Acct: [id number] Name: KEL DILLARD Rep #: [id number] : 1940 84 From: Paulie Mariano MD PCP: Dr. David Miramontes MD Status: REG ER Study: Brain/Head without Contrast Date of Exam: 09/30 11/23 Exam# [id number] Ordering Dr: Ira Abad PROCEDURE: CT BRAIN/HEAD [...] loss and chronic microangiopathic changes. Reading Location: [id number] CC: Dr. David Miramontes MD; ERWIN Phillip Retreader: Signed Normal [facility] Emergency Department Summary on 10-27-2024 Emergency Department Summary [facility] Medical Records Department [address] [place] [address] Emergency Department Summary 10/27/24 MR#: [id number] Acct: [id number] Name: KEL DILLARD Rep #: [id number] : 1940 84 From: Abhinav Leigh MD [...] which is baseline. He has no complaints. [facility] Medical History Alzheimers disease Former smoker Dementia [...] right frontal (more content not included)... Normal [facility] Gram stainOrdered By: Jarrell Miramontes on 09-25-2024 Microscopic observation Gram stain Nom (Unsp spec) [facility] Anion gap in Serum or Plasma Ordered By: David Miramontes on 09-07-2024 Anion gap [Moles/Vol] 9 mmol/L - [facility] BUN/creatinine ratioOrdered By: David Miramontes on 09-07-2024 Urea nitrogen/Creatinine [Mass ratio] 15.9 mg/mg - [facility] Carbon dioxide, total [Moles /volume] in Central venous bloodOrdered By: David Miramontes on 09-07-2024 CO2 [Moles/Vol] 28.4 mmol/L 21.0-32.0 [facility] Chloride assayOrdered By: Mayra Miramontes on 09-07-2024 Chloride [Moles/Vol] 104 mmol/L 98-108 [facility] Glomerular filtration rate ( GFR) estimation/1.73 sq m using serum, plasma, or whole bOrdered By: David Miramontes on 09-07-2024 GFR/1.73 sq M.predicted among non-blacks MDRD (S/P/Bld) [Vol rate/Area] 72 mL/min/{1.73_m2} >60 [facility] Comment on above: mL/min/1.73m2 CKD-EP I Creatinine Equation (2020) Potassium measurement (mass/ volume)Ordered By: David Miramontes on 09-07-2024 Potassium (Unsp spec) [Mass/Vol] 4.0 mmol/L 3.3-5.1 [facility] Serum creatinine measurement (mass/volume)Ordered By: David Miramontes on 09-07-2024 Creatinine [Mass/Vol] 1.02 mg/dL 0.70-1.20 [facility] Serum glucose measurement (m ass/volume)Ordered By: David Miramontes on 09-07-2024 Glucose [Mass/Vol] 80 mg/dL 70-99 [facility] Serum or plasma calcium siobhan urement (mass/volume)Ordered By: David Miramontes on 09-07-2024 Calcium [Mass/Vol] 9.3 mg/dL 7.6-11.0 [facility] Serum or plasma urea nitroge n measurement (mass/volume)Ordered By: David Miramontes 09-07-2024 Urea nitrogen [Mass/Vol] 16 mg/dL 4-19 [facility] Sodium levelOrdered By: Frandy Miramontes on 09-07-2024 Sodium [Moles/Vol] 141 mmol/L 133-145 [facility] Anion gap in Serum or Plasma Ordered By: David Miramontes on 08-31-2024 Anion gap [Moles/Vol] 10 mmol/L 5-15 [facility] BUN/creatinine ratioOrdered By: David Miramontes on 08-31-2024 Urea nitrogen/Creatinine [Mass ratio] 12.4 mg/mg 10-20 [facility] Carbon dioxide, total [Moles /volume] in Central venous bloodOrdered By: David Miramontes on 08-31-2024 CO2 [Moles/Vol] 26.4 mmol/L 21.0-32.0 [facility] Chloride assayOrdered By: Mayra Miramontes on 08-31-2024 Chloride [Moles/Vol] 103 mmol/L 98-108 [facility] Glomerular filtration rate ( GFR) estimation/1.73 sq m using serum, plasma, or whole bOrdered By: David Miramontes on 08-31-2024 GFR/1.73 sq M.predicted among non-blacks MDRD (S/P/Bld) [Vol rate/Area] 80 mL/min/{1.73_m2} >60 [facility] Comment on above: mL/min/1.73m2 CKD-EP I Creatinine Equation (2020) Potassium measurement (mass/ volume)Ordered By: David Miramontes on 08-31-2024 Potassium (Unsp spec) [Mass/Vol] 4.2 mmol/L 3.3-5.1 [facility] Serum creatinine measurement (mass/volume)Ordered By: David Miramontes on 08-31-2024 Creatinine [Mass/Vol] 0.93 mg/dL 0.70-1.20 [facility] Serum glucose measurement (m ass/volume)Ordered By: David Miramontes on 08-31-2024 Glucose [Mass/Vol] 86 mg/dL 70-99 [facility] Serum or plasma calcium siobhan urement (mass/volume)Ordered By: David Miramontes on 08-31-2024 Calcium [Mass/Vol] 9.4 mg/dL 7.6-11.0 [facility] Serum or plasma urea nitroge n measurement (mass/volume)Ordered By: David Miramontes on 08-31-2024 Urea nitrogen [Mass/Vol] 12 mg/dL 4-19 [facility] Sodium levelOrdered By: Frandy Miramontes on 08-31-2024 Sodium [Moles/Vol] 139 mmol/L 133-145 [facility] Absolute lymphocyte countOrd ered By: David Miramontes on 08-22-2024 Lymphocytes Auto (Unsp spec) [#/Vol] 1.28 10*3/uL 0.83-4.51 [facility] Absolute neutrophil countOrd ered By: David Miramontes on 08-22-2024 Neutrophils (Bld) [#/Vol] 5.0 10*3/uL 2.0-7.7 [facility] Anion gap in Serum or Plasma Ordered By: Frandyfeliciaingris Pinkamnatereza on 08-22-2024 Anion gap [Moles/Vol] 8 mmol/L 5-15 [facility] Automated lymphocyte count a s percentage of total leukocytesOrdered By: Mayrawaynecarleen Joesphamnatereza on 08-22-2024 Lymphocytes/100 WBC Auto (Unsp spec) 17.6 % Low 19-41 [facility] BUN/creatinine ratioOrdered By: David Joesphiman on 08-22-2024 Urea nitrogen/Creatinine [Mass ratio] 13.7 mg/mg 10-20 [facility] Basophil percentageOrdered B y: David Miramontes on 08-22-2024 Basophils/100 WBC (Bld) 0.7 % 0-1 [facility] Bilirubin, totalOrdered By: David Joesphiman on 08-22-2024 Bilirubin [Mass/Vol] 0.31 mg/dL 0.00-1.30 [facility] Carbon dioxide, total [Moles /volume] in Central venous bloodOrdered By: Mayrawaynecarleen Joesphamnatereza on 08-22-2024 CO2 [Moles/Vol] 28.1 mmol/L 21.0-32.0 [facility] Chloride assayOrdered By: Mayra danay Joesphamnatereza on 08-22-2024 Chloride [Moles/Vol] 107 mmol/L 98-108 [facility] Eosinophil percentageOrdered By: Mayrawaynecarleen Joesphamnatereza on 08-22-2024 Eosinophils/100 WBC (Bld) 2.6 % 0-5 [facility] Erythrocyte distribution wid th ratioOrdered By: David Miramontes on 08-22-2024 Erythrocyte distribution width (RBC) [Ratio] 15.3 % High 11.6-14.6 [facility] Erythrocyte distribution wid th standard deviationOrdered By: David Miramontes on 08-22-2024 Erythrocyte distribution width (RBC) [Ratio] 57.1 fl High 35.1-43.9 [facility] Glomerular filtration rate ( GFR) estimation/1.73 sq m using serum, plasma, or whole bOrdered By: David Miramontes on 08-22-2024 GFR/1.73 sq M.predicted among non-blacks MDRD (S/P/Bld) [Vol rate/Area] 78 mL/min/{1.73_m2} >60 [facility] Comment on above: mL/min/1.73m2 CKD-EP I Creatinine Equation (2020) Hematocrit Auto (Bld) [Volum e fraction]Ordered By: David Miramontes on 08-22-2024 Hematocrit (Bld) [Volume fraction] 41.1 % 40-54 [facility] Hemoglobin measurementOrdere d By: David Miramontes on 08-22-2024 Hemoglobin (Bld) [Mass/Vol] 12.9 g/dL Low 13.0-16.5 [facility] Immature granulocytes/100 WB C Auto (Bld)Ordered By: David Miramontes on 08-22-2024 Immature granulocytes/100 WBC (Bld) 0.600 % 0.0-0.9 [facility] Comment on above: IG% - Immature Granu locytes (promyelocytes, myelocytes and metamyelocytes) > 1% indicates that a LEFT SHIFT is Present. Laboratory - Chemistry and C hemistry - challengeOrdered By: David Miramontes on 08-22-2024 AST [Catalytic activity/Vol] 34 U/L <38 [facility] MCV (mean corpuscular volume ) determinationOrdered By: David Miramontes on 08-22-2024 MCV (RBC) [Entitic vol] 102.5 fL High 80-94 [facility] Mean corpuscular hemoglobin (MCH) determinationOrdered By: David Miramontes on 08-22-2024 MCH (RBC) [Entitic mass] 32.2 pg High 27.0-32.0 [facility] Mean corpuscular hemoglobin concentration (MCHC) determinationOrdered By: David Miramontes on 08-22-2024 MCHC (RBC) [Mass/Vol] 31.4 g/dL Low 32-36 [facility] Mean platelet volume determi nationOrdered By: David Miramontes on 08-22-2024 Platelet mean volume (Bld) [Entitic vol] 11.4 fL 6.2-12.0 [facility] Monocyte percentageOrdered B y: David Miramontes on 08-22-2024 Monocytes/100 WBC (Bld) 10.0 % 0-10 [facility] Neutrophil percentageOrdered By: David Miramontes on 08-22-2024 Neutrophils/100 WBC (Bld) 68.5 % 47-70 [facility] Nucleated red blood cell per centageOrdered By: David Miramontes on 08-22-2024 Nucleated RBC/100 WBC (Bld) [Ratio] 0 % 0-5 [facility] Platelet countOrdered By: Mayra waynecarleen Miramontes on 08-22-2024 Platelets (Bld) [#/Vol] 170 10*3/uL 150-450 [facility] Potassium measurement (mass/ volume)Ordered By: David Miramontes on 08-22-2024 Potassium (Unsp spec) [Mass/Vol] 3.8 mmol/L 3.3-5.1 [facility] RBC Auto (Bld) [#/Vol]Ordere d By: David Miramontes on 08-22-2024 RBC (Bld) [#/Vol] 4.01 10*6/uL Low 4.6-6.2 [facility] Serum creatinine measurement (mass/volume)Ordered By: David Miramontes on 08-22-2024 Creatinine [Mass/Vol] 0.96 mg/dL 0.70-1.20 [facility] Serum globulin measurementOr dered By: David Miramontes on 08-22-2024 Globulin (S) [Mass/Vol] 2.7 g/dL 2.2-4.2 [facility] Serum glucose measurement (m ass/volume)Ordered By: David Miramontes on 08-22-2024 Glucose [Mass/Vol] 82 mg/dL 70-99 [facility] Serum or plasma alanine grant otransferase (ALT) measurementOrdered By: David Miramontes on 08-22-2024 ALT [Catalytic activity/Vol] 13 U/L <47 [facility] Serum or plasma albumin siobhan urement (mass/volume)Ordered By: David Miramontes on 08-22-2024 Albumin [Mass/Vol] 3.5 g/dL 3.4-4.8 [facility] Serum or plasma albumin/glob ulin mass ratioOrdered By: David Miramontes on 08-22-2024 Albumin/Globulin [Mass ratio] 1.3 {ratio} 0.9-2.4 [facility] Serum or plasma alkaline deven sphatase measurementOrdered By: David Miramontes on 08-22-2024 ALP [Catalytic activity/Vol] 106 U/L 40-129 [facility] Serum or plasma calcium siobhan urement (mass/volume)Ordered By: David Miramontes 08-22-2024 Calcium [Mass/Vol] 8.9 mg/dL 7.6-11.0 [facility] Serum or plasma urea nitroge n measurement (mass/volume)Ordered By: David Miramontes 08-22-2024 Urea nitrogen [Mass/Vol] 13 mg/dL 4-19 [facility] Sodium levelOrdered By: Frandy Miramontes on 08-22-2024 Sodium [Moles/Vol] 142 mmol/L 133-145 [facility] Total proteinOrdered By: Lg Miramontes on 08-22-2024 Protein [Mass/Vol] 6.2 g/dL 5.9-8.4 [facility] White blood cell (WBC) count Ordered By: David Miramontes on 08-22-2024 WBC (Bld) [#/Vol] 7.3 10*3/uL 4.4-11.0 [facility] Anion gap in Serum or Plasma Ordered By: David Miramontes on 08-02-2024 Anion gap [Moles/Vol] 11 mmol/L 5-15 [facility] BUN/creatinine ratioOrdered By: David Miramontes on 08-02-2024 Urea nitrogen/Creatinine [Mass ratio] 12.3 mg/mg 10-20 [facility] Carbon dioxide, total [Moles /volume] in Central venous bloodOrdered By: David Miramontes on 08-02-2024 CO2 [Moles/Vol] 24.2 mmol/L 21.0-32.0 [facility] Chloride assayOrdered By: Mayra Miramontes on 08-02-2024 Chloride [Moles/Vol] 105 mmol/L 98-108 [facility] Glomerular filtration rate ( GFR) estimation/1.73 sq m using serum, plasma, or whole bOrdered By: David Miramontes on 08-02-2024 GFR/1.73 sq M.predicted among non-blacks MDRD (S/P/Bld) [Vol rate/Area] 73 mL/min/{1.73_m2} >60 [facility] Comment on above: mL/min/1.73m2 CKD-EP I Creatinine Equation (2020) Potassium measurement (mass/ volume)Ordered By: David Miramontes on 08-02-2024 Potassium (Unsp spec) [Mass/Vol] 3.7 mmol/L 3.3-5.1 [facility] Serum creatinine measurement (mass/volume)Ordered By: David Miramontes on 08-02-2024 Creatinine [Mass/Vol] 1.01 mg/dL 0.70-1.20 [facility] Serum glucose measurement (m ass/volume)Ordered By: David Miramontes on 08-02-2024 Glucose [Mass/Vol] 140 mg/dL High 70-99 [facility] Serum or plasma calcium siobhan urement (mass/volume)Ordered By: David Miramontes on 08-02-2024 Calcium [Mass/Vol] 9.1 mg/dL 7.6-11.0 [facility] Serum or plasma urea nitroge n measurement (mass/volume)Ordered By: David Miramontes on 08-02-2024 Urea nitrogen [Mass/Vol] 12 mg/dL 4-19 [facility] Sodium levelOrdered By: Frandy Miramontes on 08-02-2024 Sodium [Moles/Vol] 141 mmol/L 133-145 [facility] Absolute lymphocyte countOrd ered By: David Miramontes on 08-01-2024 Lymphocytes Auto (Unsp spec) [#/Vol] 1.39 10*3/uL 0.83-4.51 [facility] Absolute neutrophil countOrd ered By: danay Miramontes on 08-01-2024 Neutrophils (Bld) [#/Vol] 4.8 10*3/uL 2.0-7.7 [facility] Automated lymphocyte count a s percentage of total leukocytesOrdered By: David Miramontes on 08-01-2024 Lymphocytes/100 WBC Auto (Unsp spec) 18.9 % Low 19-41 [facility] Basophil percentageOrdered B y: David Miramontes on 08-01-2024 Basophils/100 WBC (Bld) 0.4 % 0-1 [facility] Eosinophil percentageOrdered By: [facility] Miramontes on 08-01-2024 Eosinophils/100 WBC (Bld) 2.6 % 0-5 [facility] Erythrocyte distribution wid th ratioOrdered By: danay Miramontes on 08-01-2024 Erythrocyte distribution width (RBC) [Ratio] 15.5 % High 11.6-14.6 [facility] Erythrocyte distribution wid th standard deviationOrdered By: danay Miramontes on 08-01-2024 Erythrocyte distribution width (RBC) [Ratio] 57.9 fl High 35.1-43.9 [facility] Hematocrit Auto (Bld) [Volum e fraction]Ordered By: David Miramontes on 08-01-2024 Hematocrit (Bld) [Volume fraction] 40.2 % 40-54 [facility] Hemoglobin measurementOrdere d By: David Miramontes on 08-01-2024 Hemoglobin (Bld) [Mass/Vol] 12.6 g/dL Low 13.0-16.5 [facility] Immature granulocytes/100 WB C Auto (Bld)Ordered By: David Miramontes on 08-01-2024 Immature granulocytes/100 WBC (Bld) 0.400 % 0.0-0.9 [facility] Comment on above: IG% - Immature Granu locytes (promyelocytes, myelocytes and metamyelocytes) > 1% indicates that a LEFT SHIFT is Present. MCV (mean corpuscular volume ) determinationOrdered By: David Miramontes on 08-01-2024 MCV (RBC) [Entitic vol] 100.8 fL High 80-94 W [facility] Mean corpuscular hemoglobin (MCH) determinationOrdered By: David Miramontes on 08-01-2024 MCH (RBC) [Entitic mass] 31.6 pg 27.0-32.0 [facility] Mean corpuscular hemoglobin concentration (MCHC) determinationOrdered By: David Miramontes on 08-01-2024 MCHC (RBC) [Mass/Vol] 31.3 g/dL Low 32-36 [facility] Mean platelet volume determi nationOrdered By: David Miramontes on 08-01-2024 Platelet mean volume (Bld) [Entitic vol] 11.8 fL 6.2-12.0 [facility] Monocyte percentageOrdered B y: David Miramontes on 08-01-2024 Monocytes/100 WBC (Bld) 12.5 % High 0-10 W [facility] Neutrophil percentageOrdered By: David Miramontes on 08-01-2024 Neutrophils/100 WBC (Bld) 65.2 % 47-70 [facility] Nucleated red blood cell per centageOrdered By: David Miramontes on 08-01-2024 Nucleated RBC/100 WBC (Bld) [Ratio] 0 % 0-5 [facility] Platelet countOrdered By: Mayra Miramontes on 08-01-2024 Platelets (Bld) [#/Vol] 182 10*3/uL 150-450 [facility] RBC Auto (Bld) [#/Vol]Ordere d By: David Miramontes on 08-01-2024 RBC (Bld) [#/Vol] 3.99 10*6/uL Low 4.6-6.2 [facility] White blood cell (WBC) count Ordered By: David Miramontes on 08-01-2024 WBC (Bld) [#/Vol] 7.4 10*3/uL 4.4-11.0 [facility] Absolute lymphocyte countOrd ered By: David Miramontes on 07-21-2024 Lymphocytes Auto (Unsp spec) [#/Vol] 1.21 10*3/uL 0.83-4.51 [facility] Absolute neutrophil countOrd ered By: David Miramontes on 07-21-2024 Neutrophils (Bld) [#/Vol] 5.1 10*3/uL 2.0-7.7 [facility] Anion gap in Serum or Plasma Ordered By: David Miramontes on 07-21-2024 Anion gap [Moles/Vol] 10 mmol/L 5-15 [facility] Automated lymphocyte count a s percentage of total leukocytesOrdered By: David Miramontes on 07-21-2024 Lymphocytes/100 WBC Auto (Unsp spec) 16.7 % Low 19-41 [facility] BUN/creatinine ratioOrdered By: David Miramontes on 07-21-2024 Urea nitrogen/Creatinine [Mass ratio] 16.2 mg/mg 10-20 [facility] Basophil percentageOrdered B y: David Miramontes on 07-21-2024 Basophils/100 WBC (Bld) 0.4 % 0-1 W [facility] Carbon dioxide, total [Moles /volume] in Central venous bloodOrdered By: David Miramontes on 07-21-2024 CO2 [Moles/Vol] 25.5 mmol/L 21.0-32.0 [facility] Chloride assayOrdered By: Mayra Miramontes on 07-21-2024 Chloride [Moles/Vol] 106 mmol/L 98-108 [facility] Eosinophil percentageOrdered By: David Miramontes on 07-21-2024 Eosinophils/100 WBC (Bld) 1.4 % 0-5 [facility] Erythrocyte distribution wid th ratioOrdered By: [facility] campingris Miramontes on 07-21-2024 Erythrocyte distribution width (RBC) [Ratio] 15.4 % High 11.6-14.6 [facility] Erythrocyte distribution wid th standard deviationOrdered By: [facility] Miramontes on 07-21-2024 Erythrocyte distribution width (RBC) [Ratio] 57.9 fl High 35.1-43.9 [facility] Glomerular filtration rate ( GFR) estimation/1.73 sq m using serum, plasma, or whole bOrdered By: [facility] Miramontes on 07-21-2024 GFR/1.73 sq M.predicted among non-blacks MDRD (S/P/Bld) [Vol rate/Area] 67 mL/min/{1.73_m2} >60 [facility] Comment on above: mL/min/1.73m2 CKD-EP I Creatinine Equation (2020) Hematocrit Auto (Bld) [Volum e fraction]Ordered By: [facility] Miramontes on 07-21-2024 Hematocrit (Bld) [Volume fraction] 39.0 % Low 40-54 [facility] Hemoglobin measurementOrdere d By: [facility] Miramontes on 07-21-2024 Hemoglobin (Bld) [Mass/Vol] 12.4 g/dL Low 13.0-16.5 [facility] Immature granulocytes/100 WB C Auto (Bld)Ordered By: [facility] campingris Miramontes 07-21-2024 Immature granulocytes/100 WBC (Bld) 0.400 % 0.0-0.9 [facility] Comment on above: IG% - Immature Granu locytes (promyelocytes, myelocytes and metamyelocytes) > 1% indicates that a LEFT SHIFT is Present. MCV (mean corpuscular volume ) determinationOrdered By: Frandysnow campingris Miramontes 07-21-2024 MCV (RBC) [Entitic vol] 101.0 fL High 80-94 W [facility] Mean corpuscular hemoglobin (MCH) determinationOrdered By: [facility]ris Pinktereza 07-21-2024 MCH (RBC) [Entitic mass] 32.1 pg High 27.0-32.0 [facility] Mean corpuscular hemoglobin concentration (MCHC) determinationOrdered By: David Miramontes on 07-21-2024 MCHC (RBC) [Mass/Vol] 31.8 g/dL Low 32-36 [facility] Mean platelet volume determi nationOrdered By: David Miramontes on 07-21-2024 Platelet mean volume (Bld) [Entitic vol] 11.7 fL 6.2-12.0 [facility] Monocyte percentageOrdered B y: David Miramontes on 07-21-2024 Monocytes/100 WBC (Bld) 11.3 % High 0-10 W [facility] Neutrophil percentageOrdered By: David Miramontes on 07-21-2024 Neutrophils/100 WBC (Bld) 69.8 % 47-70 [facility] Nucleated red blood cell per centageOrdered By: David Miramontes on 07-21-2024 Nucleated RBC/100 WBC (Bld) [Ratio] 0 % 0-5 [facility] Platelet countOrdered By: Mayra waynecarleen Miramontes on 07-21-2024 Platelets (Bld) [#/Vol] 172 10*3/uL 150-450 [facility] Potassium measurement (mass/ volume)Ordered By: David Miramontes on 07-21-2024 Potassium (Unsp spec) [Mass/Vol] 3.9 mmol/L 3.3-5.1 [facility] RBC Auto (Bld) [#/Vol]Ordere d By: David Miramontes on 07-21-2024 RBC (Bld) [#/Vol] 3.86 10*6/uL Low 4.6-6.2 [facility] Serum creatinine measurement (mass/volume)Ordered By: David Miramontes on 07-21-2024 Creatinine [Mass/Vol] 1.08 mg/dL 0.70-1.20 [facility] Serum glucose measurement (m ass/volume)Ordered By: David Miramontes on 07-21-2024 Glucose [Mass/Vol] 90 mg/dL 70-99 [facility] Serum or plasma calcium siobhan urement (mass/volume)Ordered By: David Miramontes on 07-21-2024 Calcium [Mass/Vol] 9.1 mg/dL 7.6-11.0 [facility] Serum or plasma urea nitroge n measurement (mass/volume)Ordered By: Mayradanay Miramontes on 07-21-2024 Urea nitrogen [Mass/Vol] 18 mg/dL 4-19 [facility] Sodium levelOrdered By: Frandy durant Joesphiman on 07-21-2024 Sodium [Moles/Vol] 141 mmol/L 133-145 [facility] TSH DL <= 0.005 mIU/L QnOrde red By: David Joesphiman on 07-21-2024 TSH Qn 2.450 uIU/mL 0.300-4.200 [facility] White blood cell (WBC) count Ordered By: Mayrawaynefeliciaingris Pinkamnatereza on 07-21-2024 WBC (Bld) [#/Vol] 7.3 10*3/uL 4.4-11.0 [facility] BLADDER SCANon 07-14-2024 PVR 59 Cc [place] BLADDER SCANOrdered By: Dayo Perez on 07-14-2024 [place] CNOVon 07-14-2024 CNOV Office Visit (AKURFL) KEL DILLARD ([id number]) 1940 M Date Time Provider Department 07/14/24 9:00 AM DIANA ARANGO During your visit today, we recorded the following information about you: Diana Arango APRN.CNP 07/14/2024 9:11 AM Signed [facility] UROL JUAN NEW PATIENT UROLOGY VISIT 07/14/2024 [...] Hospital CYTOLOGY NON-GYNon 5 AP DISCLAIMER Normal [facility] Comment on above: Order Comment: Speci men Type: URINE SPECIMEN Ordering Facility: [facility] Address: [address] [place] [address] Result Comment: Hussain blanco Developed Test (LDT) Disclaimer: Performance characteristics of immunohistochemical, immunofluorescent, and chromogenic in-situ hybridization tests have been determined by the performing laboratory within [place]'s [facility] Pathology and Laboratory Medicine Department ([facility], [facility], [facility], [place], [facility], [facility], or [facility]) in a manner consistent with CLIA requirements. One or more of these tests may not have been cleared or approved by the FDA. [facility] is regulated under CLIA as qualified to perform high-complexity testing. These tests are used for clinical purposes. These should not be regarded as investigational or for research. Positive and negative controls stain appropriately. Performed By: #### C YTONON #### [facility] CLIA [id number] [address] [place] [address] STATES OF [place] CASE REPORT Normal [facility] Comment on above: Order Comment: Speci men Type: URINE SPECIMEN Ordering Facility: [facility] Address: [address] [place] [address] Result Comment: [facility] Cytology Report Case: [id number] Authorizing Provider: Diana Arango Collected: 07/14/2024 09:01 AM MATTHEW Ochoa Ordering Location: [facility] Received: 07/17/2024 03:50 AM Pathologist: Rosy Cavazos MD Specimen: Urine, Midstream Performed By: #### C YTONON #### [facility] CLIA [id number] [address] OF [place] CLINICAL HISTORY gross hematuria Normal [facility] Comment on above: Order Comment: Speci men Type: URINE SPECIMEN Ordering Facility: [facility] Address: [address] [place] [address] Performed By: #### C YTONON #### [facility] CLIA [id number] [address] FINAL DIAGNOSIS Normal [facility] Comment on above: Order Comment: Speci men Type: URINE SPECIMEN Ordering Facility: [facility] Address: [address] [place] [address] Result Comment: A - Urine, Midstream Negative for high-grade urothelial carcinoma. Blood. at 1046 EDT Performed By: #### C YTONON #### [facility] CLIA [id number] [address] [place] [address] FINAL PERFORMING LAB Normal [facility] Comment on above: Order Comment: Speci men Type: URINE SPECIMEN Ordering Facility: [facility] Address: [address] [place] [address] Result Comment: Tech nical component, junior financial analyst screening performed at: [facility], [address] [place] [address] CLIA: [id number] Diagnostic interpretation performed at: [facility], [address] [place] [address] CLIA# [id number] [employer] Control Specialist: Josiah Ochoa MD Performed By: #### C YTONON #### [facility] CLIA [id number] [address] [place] [address] GROSS DESCRIPTION Normal [facility] Comment on above: Order Comment: Speci men Type: URINE SPECIMEN Ordering Facility: [facility] Address: [address] [place] [address] Result Comment: A. U rine, Midstream 7.5 cc cloudy yellow fluid. ThinPrep prepared. Performed By: #### C YTONON #### [facility] CLIA [id number] [address] UA DIP, URINE (POC)on 2024 BILIRUBIN UA (POCT) Negative Negative [facility] CLARITY UA (POCT) Clear [facility] COLOR UA (POCT) Yellow [place] GLUCOSE UA (POCT) Negative Negative mg/dL [place] Hemoglobin Ql (U) Trace-intact Abnormal Negative [facility] Interpretation and review of laboratory results Abnormal [place] KETONE UA (POCT) Negative Negative mg/dL [place] LEUKOCYTES UA (POCT) Negative [facility] NITRITE UA (POCT) Negative Negative [facility] PH UA (POCT) 5.5 4.5 - 8.0 [place] Protein Ql (U) 30 mg/dL Abnormal Negative [place] SPECIFIC GRAVITY UA (POCT) 1.025 1.005 - 1.030 [place] UROBILINOGEN UA (POCT) 0.2 Debbie l E.U./dL [place] Location:[facility], [address] [place] [address], [address] [place] [address] POINT OF CARE [place] Serum or plasma uric acid me asurement (mass/volume)Ordered By: David Miramontes on 06-23-2024 Urate [Mass/Vol] 4.2 mg/dL 3.5-7.2 [facility] Comment on above: The drugs N-Acetylcy steine and Metamizole may falsely depress this assay. Absolute lymphocyte countOrd ered By: David Miramontes on 06-05-2024 Lymphocytes Auto (Unsp spec) [#/Vol] 1.05 10*3/uL 0.83-4.51 [facility] Absolute neutrophil countOrd ered By: David Miramontes on 06-05-2024 Neutrophils (Bld) [#/Vol] 4.8 10*3/uL 2.0-7.7 [facility] Anion gap in Serum or Plasma Ordered By: David Miramontes on 06-05-2024 Anion gap [Moles/Vol] 11 mmol/L 5-15 [facility] Automated lymphocyte count a s percentage of total leukocytesOrdered By: David Miramontes on 06-05-2024 Lymphocytes/100 WBC Auto (Unsp spec) 15.8 % Low 19-41 [facility] BUN/creatinine ratioOrdered By: David Miramontes on 06-05-2024 Urea nitrogen/Creatinine [Mass ratio] 9.3 mg/mg Low 10-20 [facility] Basophil percentageOrdered B y: David Miramontes on 06-05-2024 Basophils/100 WBC (Bld) 1.1 % High 0-1 W [facility] Carbon dioxide, total [Moles /volume] in Central venous bloodOrdered By: David Miramontes on 06-05-2024 CO2 [Moles/Vol] 26.8 mmol/L 21.0-32.0 [facility] Chloride assayOrdered By: Mayra Miramontes on 06-05-2024 Chloride [Moles/Vol] 101 mmol/L 98-108 [facility] Eosinophil percentageOrdered By: David Miramontes on 06-05-2024 Eosinophils/100 WBC (Bld) 2.3 % 0-5 [facility] Erythrocyte distribution wid th (RBC) [Ratio]Ordered By: David Miramontes on 06-05-2024 Erythrocyte distribution width (RBC) [Entitic vol] 55.4 fL High 35.1-43.9 [facility] Erythrocyte distribution wid th ratioOrdered By: David Miramontes on 06-05-2024 Erythrocyte distribution width (RBC) [Ratio] 15.0 % High 11.6-14.6 [facility] Erythrocyte distribution wid th standard deviationOrdered By: David Miramontes on 06-05-2024 Erythrocyte distribution width (RBC) [Ratio] 55.4 fl High 35.1-43.9 [facility] GFR/1.73 sq M.predicted eleazar g non-blacks MDRD (S/P/Bld) [Vol rate/Area]Ordered By: David Miramontes on 06-05-2024 Estimated GFR (MDRD) Non-Af Amer 48 Low >60 [facility] Comment on above: mL/min/1.73m2 CKD-EP I Creatinine Equation (2020) Glomerular filtration rate ( GFR) estimation/1.73 sq m using serum, plasma, or whole bOrdered By: David Miramontes on 06-05-2024 GFR/1.73 sq M.predicted among non-blacks MDRD (S/P/Bld) [Vol rate/Area] 48 mL/min/{1.73_m2} Low >60 [facility] Comment on above: mL/min/1.73m2 CKD-EP I Creatinine Equation (2020) Hematocrit Auto (Bld) [Volum e fraction]Ordered By: David Miramontes on 06-05-2024 Hematocrit (Bld) [Volume fraction] 41.8 % 40-54 [facility] Hemoglobin measurementOrdere d By: danay Miramontes on 06-05-2024 Hemoglobin (Bld) [Mass/Vol] 13.3 g/dL 13.0-16.5 [facility] Immature granulocytes/100 WB C Auto (Bld)Ordered By: danay Miramontes on 06-05-2024 Immature granulocytes/100 WBC (Bld) 0.300 % 0.0-0.9 [facility] Comment on above: IG% - Immature Granu locytes (promyelocytes, myelocytes and metamyelocytes) > 1% indicates that a LEFT SHIFT is Present. Lymphocytes Auto (Unsp spec) [#/Vol]Ordered By: David Miramontes on 06-05-2024 Lymphocytes (Bld) [#/Vol] 1.05 10*3/uL 0.83-4.51 [facility] Lymphocytes/100 WBC Auto (Un sp spec)Ordered By: David Miramontes on 06-05-2024 Lymphocytes/100 WBC (Bld) 15.8 % Low 19-41 [facility] MCV (mean corpuscular volume ) determinationOrdered By: David Miramontes on 06-05-2024 MCV (RBC) [Entitic vol] 100.5 fL High 80-94 W [facility] Mean corpuscular hemoglobin (MCH) determinationOrdered By: David Miramontes on 06-05-2024 MCH (RBC) [Entitic mass] 32.0 pg 27.0-32.0 [facility] Mean corpuscular hemoglobin concentration (MCHC) determinationOrdered By: David Miramontes on 06-05-2024 MCHC (RBC) [Mass/Vol] 31.8 g/dL Low 32-36 [facility] Mean platelet volume determi nationOrdered By: David Miramontes on 06-05-2024 Platelet mean volume (Bld) [Entitic vol] 11.3 fL 6.2-12.0 [facility] Monocyte percentageOrdered B y: David Miramontes on 06-05-2024 Monocytes/100 WBC (Bld) 8.9 % 0-10 W [facility] Neutrophil percentageOrdered By: David Miramontes on 06-05-2024 Neutrophils/100 WBC (Bld) 71.6 % High 47-70 [facility] Nucleated red blood cell per centageOrdered By: David Miramontes on 06-05-2024 Nucleated RBC/100 WBC (Bld) [Ratio] 0 % 0-5 [facility] Platelet countOrdered By: Mayra waynecarleen Miramontes on 06-05-2024 Platelets (Bld) [#/Vol] 216 10*3/uL 150-450 [facility] Potassium (Unsp spec) [Mass/ Vol]Ordered By: David Miramontes on 06-05-2024 Potassium [Moles/Vol] 3.9 mmol/L 3.3-5.1 [facility] Potassium measurement (mass/ volume)Ordered By: David Miramontes on 06-05-2024 Potassium (Unsp spec) [Mass/Vol] 3.9 mmol/L 3.3-5.1 [facility] RBC Auto (Bld) [#/Vol]Ordere d By: David Miramontes on 06-05-2024 RBC (Bld) [#/Vol] 4.16 10*6/uL Low 4.6-6.2 [facility] Serum creatinine measurement (mass/volume)Ordered By: David Miramontes on 06-05-2024 Creatinine [Mass/Vol] 1.42 mg/dL High 0.70-1.20 [facility] Serum glucose measurement (m ass/volume)Ordered By: David Miramontes on 06-05-2024 Glucose [Mass/Vol] 85 mg/dL 70-99 [facility] Serum or plasma calcium siobhan urement (mass/volume)Ordered By: David Miramontes on 06-05-2024 Calcium [Mass/Vol] 9.0 mg/dL 7.6-11.0 [facility] Serum or plasma urea nitroge n measurement (mass/volume)Ordered By: David Miramontes on 06-05-2024 Urea nitrogen [Mass/Vol] 13 mg/dL 4-19 [facility] Sodium levelOrdered By: Frandy Miramontes on 06-05-2024 Sodium [Moles/Vol] 139 mmol/L 133-145 [facility] White blood cell (WBC) count Ordered By: David Miramontes on 06-05-2024 WBC (Bld) [#/Vol] 6.6 10*3/uL 4.4-11.0 [facility] Amorphous sediment detection in urine sediment by light microscopyOrdered By: David Miramontes on 05-30-2024 Amorphous sediment LM Ql (Urine sed) 1+ [facility] Ankle Brachial Indexon 05-30 Ankle Brachial Index [facility] [address] [place] [address] Ankle Brachial Index 05/30/24 0904 MR#: [id number] Acct: [id number] Name: KEL DILLARD Rep #: [id number] : 1940 84 From: Josiah Klein MD Attending Dr: Dr. David Miramontes MD Status: REG CLI Ordering Dr: David Miramontes MD Date: 05/30/24 Location: [facility] Sex: M C Admitted: Reason [...] MD Date Dictated: 05/30/24903 Date Transcribed: 05/30/241542 Retreader: Signed Normal [facility] Arterial study reportOrdered By: Josiah Klein on 05-30-2024 Noninvasive arteriosclerosis study report [facility] [address] [place] [address] Ankle Brachial Index 05/30/24 0904 MR#: [id number] Acct: [id number] Name: KEL DILLARD Rep #:[id number] : 1940 84 From: Josiah Naranjo [...] Date Dictated: 05/30/24 0904 Date Transcribed: 05/30/241542 Retreader: Signed [facility] Work Phone: Bilirubin Test strip Ql (U)O rdered By: David Miramontes on 05-30-2024 Bilirubin Ql (U) Negative Negative [facility] Epithelial cells.squamous LM Ql (Urine sed)Ordered By: David Miramontes on 05-30-2024 Epithelial cells.squamous LM.HPF (Urine sed) [#/Area] 0 /[HPF] 0-5 [facility] Glucose Ql (U)Ordered By: Mayra Miramontes on 05-30-2024 Urine Glucose (UA) Normal mg/dl Normal [facility] Ketones Test strip Ql (U)Ord ered By: David Miramontes on 05-30-2024 Ketones Ql (U) Negative Negative [facility] Microscopic analysis of urin e for red blood cells (RBC)Ordered By: David Miramontes on 05-30-2024 Microscopic analysis of urine for red blood cells (RBC) > 100 SEEN /hpf 0-5 [facility] Urine RBC > 100 SEEN /hpf 0-5 [facility] Mucus LM Ql (Urine sed)Order ed By: David Miramontes on 05-30-2024 Mucus Ql (Urine sed) 0 SEEN /hpf [facility] Nitrite Test strip Ql (U)Ord ered By: David Miramontes on 05-30-2024 Nitrite Ql (U) Positive High Negative [facility] PSA, total screeningOrdered By: David Miramontes on 05-30-2024 Prostate Specific Antigen Screen 3.08 ng/mL 0.02-4.00 [facility] Comment on above: This test was perfor [...] Protein Ql (U) 500 mg/dl High Negative [facility] Squamous epithelial cells de tection in urine sediment by light microscopyOrdered By: David Miramontes on 05-30-2024 Epithelial cells.squamous LM Ql (Urine sed) 0-5 SEEN /hpf 0-5 [facility] Urine blood detectionOrdered By: David Miramontes on 05-30-2024 Urine Occult Blood 250 /ul High Negative [facility] Urine clarityOrdered By: Lg Miramontes on 05-30-2024 Clarity (U) Cloudy Clear [facility] Urine color determinationOrd ered By: David Miramontes on 05-30-2024 Color (U) Brown Yellow [facility] Urine cultureOrdered By: Lg Miramontes on 05-30-2024 Bacteria identified Cx Nom (U) Proteus mirabilis Abnormal [facility] Urine glucose detectionOrder ed By: David Miramontes on 05-30-2024 Glucose Ql (U) Normal mg/dl Normal [facility] Urine leukocyte esterase det ection by dipstickOrdered By: David Miramontes on 05-30-2024 Leukocyte esterase Test strip Ql (U) 500 /ul High Negative [facility] Urine pHOrdered By: Leo Miramontes on 05-30-2024 pH (U) 6.5 [pH] 5.0 - 8.0 [facility] Urine sediment bacteria coun t by microscopy (number/high power field)Ordered By: David Miramontes on 05-30-2024 Bacteria LM.HPF (Urine sed) [#/Area] 2 /[HPF] None Seen [facility] Urine specific gravity measu rementOrdered By: David Miramontes on 05-30-2024 Specific gravity (U) [Rel density] 1.015 1.002-1.030 [facility] Urine urobilinogen measureme ntOrdered By: David Miramontes on 05-30-2024 Urobilinogen Ql (U) 1 mg/dl High Normal [facility] Urobilinogen Ql (U)Ordered B y: David Miramontes on 05-30-2024 Urobilinogen (U) [Mass/Vol] 1 mg/dL High Normal [facility] White blood cell countOrdere d By: David Miramontes on 05-30-2024 Urine WBC 50-100 SEEN /hpf 0-5 [facility] White blood cell count 50-100 SEEN /hpf 0-5 [facility] Absolute lymphocyte countOrd ered By: David Miramontes on 05-22-2024 Lymphocytes Auto (Unsp spec) [#/Vol] 1.26 10*3/uL 0.83-4.51 [facility] Absolute neutrophil countOrd ered By: David Miramontes on 05-22-2024 Neutrophils (Bld) [#/Vol] 6.5 10*3/uL 2.0-7.7 [facility] Anion gap in Serum or Plasma Ordered By: David Miramontes on 05-22-2024 Anion gap [Moles/Vol] 13 mmol/L 5-15 [facility] Automated lymphocyte count a s percentage of total leukocytesOrdered By: David Miramontes on 05-22-2024 Lymphocytes/100 WBC Auto (Unsp spec) 14.0 % Low 19-41 [facility] BUN/creatinine ratioOrdered By: David Miramontes on 05-22-2024 Urea nitrogen/Creatinine [Mass ratio] 7.8 mg/mg Low 10-20 [facility] Basophil percentageOrdered B y: David Miramontes on 05-22-2024 Basophils/100 WBC (Bld) 0.4 % 0-1 [facility] Bilirubin, totalOrdered By: David Miramontes on 05-22-2024 Bilirubin [Mass/Vol] 0.44 mg/dL 0.00-1.30 [facility] Carbon dioxide, total [Moles /volume] in Central venous bloodOrdered By: David Miramontes on 05-22-2024 CO2 [Moles/Vol] 24.8 mmol/L 21.0-32.0 [facility] Chloride assayOrdered By: Mayra Miramontes on 05-22-2024 Chloride [Moles/Vol] 104 mmol/L 98-108 [facility] Eosinophil percentageOrdered By: David Miramontes on 05-22-2024 Eosinophils/100 WBC (Bld) 1.0 % 0-5 [facility] Erythrocyte distribution wid th (RBC) [Ratio]Ordered By: David Miramontes on 05-22-2024 Erythrocyte distribution width (RBC) [Entitic vol] 54.3 fL High 35.1-43.9 [facility] Erythrocyte distribution wid th ratioOrdered By: David Miramontes on 05-22-2024 Erythrocyte distribution width (RBC) [Ratio] 15.1 % High 11.6-14.6 [facility] Erythrocyte distribution wid th standard deviationOrdered By: David Miramontes on 05-22-2024 Erythrocyte distribution width (RBC) [Ratio] 54.3 fl High 35.1-43.9 [facility] GFR/1.73 sq M.predicted eleazar g non-blacks MDRD (S/P/Bld) [Vol rate/Area]Ordered By: David Miramontes on 05-22-2024 Estimated GFR (MDRD) Non-Af Amer 33 Low >60 [facility] Comment on above: mL/min/1.73m2 CKD-EP I Creatinine Equation (2020) Glomerular filtration rate ( GFR) estimation/1.73 sq m using serum, plasma, or whole bOrdered By: David Miramontes on 05-22-2024 GFR/1.73 sq M.predicted among non-blacks MDRD (S/P/Bld) [Vol rate/Area] 33 mL/min/{1.73_m2} Low >60 [facility] Comment on above: mL/min/1.73m2 CKD-EP I Creatinine Equation (2020) Hematocrit Auto (Bld) [Volum e fraction]Ordered By: David Miramontes on 05-22-2024 Hematocrit (Bld) [Volume fraction] 40.5 % 40-54 [facility] Hemoglobin measurementOrdere d By: David Miramontes on 05-22-2024 Hemoglobin (Bld) [Mass/Vol] 12.9 g/dL Low 13.0-16.5 [facility] Immature granulocytes/100 WB C Auto (Bld)Ordered By: David Miramontes on 05-22-2024 Immature granulocytes/100 WBC (Bld) 0.300 % 0.0-0.9 [facility] Comment on above: IG% - Immature Granu locytes (promyelocytes, myelocytes and metamyelocytes) > 1% indicates that a LEFT SHIFT is Present. Laboratory - Chemistry and C hemistry - challengeOrdered By: David Miramontes on 05-22-2024 AST [Catalytic activity/Vol] 33 U/L <38 [facility] Lymphocytes Auto (Unsp spec) [#/Vol]Ordered By: David Miramontes on 05-22-2024 Lymphocytes (Bld) [#/Vol] 1.26 10*3/uL 0.83-4.51 [facility] Lymphocytes/100 WBC Auto (Un sp spec)Ordered By: David Miramontes on 05-22-2024 Lymphocytes/100 WBC (Bld) 14.0 % Low 19-41 [facility] MCV (mean corpuscular volume ) determinationOrdered By: David Miramontes on 05-22-2024 MCV (RBC) [Entitic vol] 99.3 fL High 80-94 [facility] Mean corpuscular hemoglobin (MCH) determinationOrdered By: David Miramontes on 05-22-2024 MCH (RBC) [Entitic mass] 31.6 pg 27.0-32.0 [facility] Mean corpuscular hemoglobin concentration (MCHC) determinationOrdered By: David Miramontes on 05-22-2024 MCHC (RBC) [Mass/Vol] 31.9 g/dL Low 32-36 [facility] Mean platelet volume determi nationOrdered By: David Miramontes on 05-22-2024 Platelet mean volume (Bld) [Entitic vol] 12.1 fL High 6.2-12.0 [facility] Monocyte percentageOrdered B y: David Miramontes on 05-22-2024 Monocytes/100 WBC (Bld) 11.8 % High 0-10 [facility] Neutrophil percentageOrdered By: David Miramontes on 05-22-2024 Neutrophils/100 WBC (Bld) 72.5 % High 47-70 [facility] Nucleated red blood cell per centageOrdered By: David Miramontes on 05-22-2024 Nucleated RBC/100 WBC (Bld) [Ratio] 0 % 0-5 [facility] Platelet countOrdered By: Mayra Miramotnes on 05-22-2024 Platelets (Bld) [#/Vol] 179 10*3/uL 150-450 [facility] Potassium (Unsp spec) [Mass/ Vol]Ordered By: David Miramontes on 05-22-2024 Potassium [Moles/Vol] 3.3 mmol/L 3.3-5.1 [facility] Potassium measurement (mass/ volume)Ordered By: David Miramontes on 05-22-2024 Potassium (Unsp spec) [Mass/Vol] 3.3 mmol/L 3.3-5.1 [facility] RBC Auto (Bld) [#/Vol]Ordere d By: David Miramontes on 05-22-2024 RBC (Bld) [#/Vol] 4.08 10*6/uL Low 4.6-6.2 [facility] Serum creatinine measurement (mass/volume)Ordered By: David Miramontes on 05-22-2024 Creatinine [Mass/Vol] 1.94 mg/dL High 0.70-1.20 [facility] Serum globulin measurementOr dered By: David Miramontes on 05-22-2024 Globulin (S) [Mass/Vol] 3.2 g/dL 2.2-4.2 [facility] Serum glucose measurement (m ass/volume)Ordered By: David Miramontes on 05-22-2024 Glucose [Mass/Vol] 112 mg/dL High 70-99 [facility] Serum or plasma alanine grant otransferase (ALT) measurementOrdered By: David Miramontes on 05-22-2024 ALT [Catalytic activity/Vol] 8 U/L <47 [facility] Serum or plasma albumin siobhan urement (mass/volume)Ordered By: David Miramontes on 05-22-2024 Albumin [Mass/Vol] 3.5 g/dL 3.4-4.8 [facility] Serum or plasma albumin/glob ulin mass ratioOrdered By: David Miramontes on 05-22-2024 Albumin/Globulin [Mass ratio] 1.1 {ratio} 0.9-2.4 [facility] Serum or plasma alkaline deven sphatase measurementOrdered By: David Miramontes on 05-22-2024 ALP [Catalytic activity/Vol] 71 U/L 40-129 [facility] Serum or plasma calcium siobhan urement (mass/volume)Ordered By: David Miramontes on 05-22-2024 Calcium [Mass/Vol] 8.8 mg/dL 7.6-11.0 [facility] Serum or plasma urea nitroge n measurement (mass/volume)Ordered By: David Miramontes on 05-22-2024 Urea nitrogen [Mass/Vol] 15 mg/dL 4-19 [facility] Sodium levelOrdered By: Frandy Miramontes on 05-22-2024 Sodium [Moles/Vol] 141 mmol/L 133-145 [facility] Total proteinOrdered By: Lg Miramontes on 05-22-2024 Protein [Mass/Vol] 6.7 g/dL 5.9-8.4 [facility] White blood cell (WBC) count Ordered By: David Miramontes on 05-22-2024 WBC (Bld) [#/Vol] 9.0 10*3/uL 4.4-11.0 [facility] Bilirubin Test strip Ql (U)O rdered By: David Miramontes on 04-17-2024 Bilirubin Ql (U) 1 mg/dL High Negative [facility] Comment on above: COLOR OF URINE MAY A FFECT DIPSTICK RESULTS. Glucose Ql (U)Ordered By: Mayra Miramontes on 04-17-2024 Urine Glucose (UA) Normal mg/dl Normal [facility] Ketones Test strip Ql (U)Ord ered By: David Miramontes on 04-17-2024 Ketones Ql (U) 5 mg/dl High Negative [facility] Nitrite Test strip Ql (U)Ord ered By: David Miramontes on 04-17-2024 Nitrite Ql (U) Negative Negative [facility] Protein Test strip Ql (U)Ord ered By: David Miramontes on 04-17-2024 Protein Ql (U) 100 mg/dl High Negative [facility] Urine blood detectionOrdered By: David Miramontes on 04-17-2024 Urine Occult Blood 250 /ul High Negative [facility] Urine clarityOrdered By: Lg Miramontes on 04-17-2024 Clarity (U) Turbid Clear [facility] Urine color determinationOrd ered By: David Miramontes on 04-17-2024 Color (U) Kristina Yellow [facility] Urine cultureOrdered By: Lg Miramontes on 04-17-2024 Bacteria identified Cx Nom (U) Proteus mirabilis Abnormal [facility] Urine glucose detectionOrder ed By: David Miramontes on 04-17-2024 Glucose Ql (U) Normal mg/dl Normal [facility] Urine leukocyte esterase det ection by dipstickOrdered By: David Miramontes on 04-17-2024 Leukocyte esterase Test strip Ql (U) 100 /ul High Negative [facility] Urine pHOrdered By: Leo Miramontes on 04-17-2024 pH (U) 5.0 [pH] 5.0 - 8.0 [facility] Urine specific gravity measu rementOrdered By: David Miramontes on 04-17-2024 Specific gravity (U) [Rel density] 1.025 1.002-1.030 [facility] Urine urobilinogen measureme ntOrdered By: David Guerrae on 04-17-2024 Urobilinogen Ql (U) Normal mg/dl Normal [facility] Urobilinogen Ql (U)Ordered B y: Efdanay Guerare on 04-17-2024 Urine Urobilinogen Normal mg/dl Normal [facility] Absolute lymphocyte countOrd ered By: Efdanay Guerrae on 04-13-2024 Lymphocytes Auto (Unsp spec) [#/Vol] 0.98 10*3/uL 0.83-4.51 [facility] Absolute neutrophil countOrd ered By: Efwayneongingris Guerrae on 04-13-2024 Neutrophils (Bld) [#/Vol] 7.0 10*3/uL 2.0-7.7 [facility] Automated lymphocyte count a s percentage of total leukocytesOrdered By: David Guerrae on 04-13-2024 Lymphocytes/100 WBC Auto (Unsp spec) 11.0 % Low 19-41 [facility] Basophil percentageOrdered B y: David Guerrae on 04-13-2024 Basophils/100 WBC (Bld) 0.2 % 0-1 [facility] Eosinophil percentageOrdered By: Efwayneongingris Guerrae on 04-13-2024 Eosinophils/100 WBC (Bld) 1.2 % 0-5 [facility] Erythrocyte distribution wid th (RBC) [Ratio]Ordered By: David Guerrae on 04-13-2024 Erythrocyte distribution width (RBC) [Entitic vol] 52.6 fL High 35.1-43.9 [facility] Erythrocyte distribution wid th ratioOrdered By: Frandyongbe Charliee on 04-13-2024 Erythrocyte distribution width (RBC) [Ratio] 14.6 % 11.6-14.6 [facility] Erythrocyte distribution wid th standard deviationOrdered By: Efwayneongbe Charliee on 04-13-2024 Erythrocyte distribution width (RBC) [Ratio] 52.6 fl High 35.1-43.9 [facility] Hematocrit Auto (Bld) [Volum e fraction]Ordered By: David Guerrae on 04-13-2024 Hematocrit (Bld) [Volume fraction] 47.5 % 40-54 [facility] Hemoglobin measurementOrdere d By: David Miramontes on 04-13-2024 Hemoglobin (Bld) [Mass/Vol] 15.1 g/dL 13.0-16.5 [facility] Immature granulocytes/100 WB C Auto (Bld)Ordered By: David Miramontes on 04-13-2024 Immature granulocytes/100 WBC (Bld) 0.300 % 0.0-0.9 [facility] Comment on above: IG% - Immature Granu locytes (promyelocytes, myelocytes and metamyelocytes) > 1% indicates that a LEFT SHIFT is Present. Lymphocytes Auto (Unsp spec) [#/Vol]Ordered By: David Miramontes on 04-13-2024 Lymphocytes (Bld) [#/Vol] 0.98 10*3/uL 0.83-4.51 [facility] Lymphocytes/100 WBC Auto (Un sp spec)Ordered By: David Miramontes on 04-13-2024 Lymphocytes/100 WBC (Bld) 11.0 % Low 19-41 [facility] MCV (mean corpuscular volume ) determinationOrdered By: David Miramontes on 04-13-2024 MCV (RBC) [Entitic vol] 98.3 fL High 80-94 [facility] Mean corpuscular hemoglobin (MCH) determinationOrdered By: David Miramontes on 04-13-2024 MCH (RBC) [Entitic mass] 31.3 pg 27.0-32.0 [facility] Mean corpuscular hemoglobin concentration (MCHC) determinationOrdered By: David Miramontes on 04-13-2024 MCHC (RBC) [Mass/Vol] 31.8 g/dL Low 32-36 [facility] Mean platelet volume determi nationOrdered By: David Miramontes on 04-13-2024 Platelet mean volume (Bld) [Entitic vol] 12.2 fL High 6.2-12.0 [facility] Monocyte percentageOrdered B y: David Miramontes on 04-13-2024 Monocytes/100 WBC (Bld) 9.3 % 0-10 [facility] Neutrophil percentageOrdered By: David Miramontes on 04-13-2024 Neutrophils/100 WBC (Bld) 78.0 % High 47-70 [facility] Nucleated red blood cell per centageOrdered By: David Miramontes on 04-13-2024 Nucleated RBC/100 WBC (Bld) [Ratio] 0 % 0-5 [facility] Platelet countOrdered By: Mayra Miramontes on 04-13-2024 Platelets (Bld) [#/Vol] 160 10*3/uL 150-450 [facility] RBC Auto (Bld) [#/Vol]Ordere d By: David Miramontes on 04-13-2024 RBC (Bld) [#/Vol] 4.83 10*6/uL 4.6-6.2 [facility] Serum or plasma uric acid me asurement (mass/volume)Ordered By: David Miramontes on 04-13-2024 Urate [Mass/Vol] 7.3 mg/dL High 3.5-7.2 [facility] Comment on above: The drugs N-Acetylcy steine and Metamizole may falsely depress this assay. White blood cell (WBC) count Ordered By: David Miramontes on 04-13-2024 WBC (Bld) [#/Vol] 8.9 10*3/uL 4.4-11.0 [facility] Bilirubin Test strip Ql (U)O rdered By: David Miramontes on 04-07-2024 Bilirubin Ql (U) Negative Negative [facility] Blood urea nitrogen (BUN)/cr eatinine ratioOrdered By: David Miramontes on 04-07-2024 Urea nitrogen/Creatinine [Mass ratio] 15.7 mg/mg 10-20 [facility] Carbon dioxide measurementOr dered By: David Miramontes on 04-07-2024 CO2 [Moles/Vol] 27.0 mmol/L 21.0-32.0 [facility] Chloride measurementOrdered By: David Miramontes on 04-07-2024 Chloride [Moles/Vol] 107 mmol/L 98-107 [facility] Estimated glomerular filtrat ion rate (GFR) AmericanOrdered By: David Miramontes on 04-07-2024 Estimated GFR (MDRD) Amer 69 mL/min >60 [facility] Comment on above: GFR Calc Glomerular filtration rate ( GFR) estimationOrdered By: David Miramontes on 04-07-2024 Estimated GFR (MDRD) Non-Af Amer 57 mL/min Low >60 [facility] Comment on above: Non- GFR Calc GFR/1.73 sq M.predicted among non-blacks MDRD (S/P/Bld) [Vol rate/Area] 57 mL/min/{1.73_m2} Low >60 [facility] Comment on above: Non- GFR Calc Glucose Ql (U)Ordered By: Mayra Miramontes on 04-07-2024 Urine Glucose (UA) Normal mg/dl Normal [facility] Glucose measurementOrdered B y: David Miramontes on 04-07-2024 Glucose [Mass/Vol] 80 mg/dL 74-106 [facility] Ketones Test strip Ql (U)Ord ered By: David Miramontes on 04-07-2024 Ketones Ql (U) Negative Negative [facility] Nitrite Test strip Ql (U)Ord ered By: David Miramontes on 04-07-2024 Nitrite Ql (U) Negative Negative [facility] Potassium measurementOrdered By: David Miramontes on 04-07-2024 Potassium [Moles/Vol] 3.8 mmol/L 3.5-5.1 [facility] Comment on above: Slight Hemolysis, Re sult may be falsely increased. Protein Test strip Ql (U)Ord ered By: David Miramontes on 04-07-2024 Protein Ql (U) 30 mg/dl High Negative [facility] Serum anion gap measurementO rdered By: David Miramontes on 04-07-2024 Anion gap [Moles/Vol] 9 mmol/L 5-15 [facility] Serum or plasma calcium siobhan urement (mass/volume)Ordered By: David Miramontes on 04-07-2024 Calcium [Mass/Vol] 8.9 mg/dL 8.5-10.1 [facility] Serum or plasma creatinine m easurement (mass/volume)Ordered By: David Miramontes on 04-07-2024 Creatinine [Mass/Vol] 1.27 mg/dL 0.70-1.30 [facility] Comment on above: The validity of the calculated GFR & GFRAA in patients over 70 years has not been determined. Clinical correlation is essential. Serum or plasma urea nitroge n measurement (mass/volume)Ordered By: David Miramontes on 04-07-2024 Urea nitrogen [Mass/Vol] 20 mg/dL High 7-18 [facility] Serum or plasma uric acid me asurement (mass/volume)Ordered By: David Miramontes on 04-07-2024 Urate [Mass/Vol] 7.7 mg/dL High 3.5-7.2 [facility] Comment on above: The drugs N-Acetylcy steine and Metamizole may falsely depress this assay. Sodium levelOrdered By: Frandy Miramontes on 04-07-2024 Sodium [Moles/Vol] 143 mmol/L 136-145 [facility] Urine blood detectionOrdered By: David Miramontes on 04-07-2024 Urine Occult Blood 250 /ul High Negative [facility] Urine clarityOrdered By: Lg Miramontes on 04-07-2024 Clarity (U) Clear Clear [facility] Urine color determinationOrd ered By: David Miramontes on 04-07-2024 Color (U) Straw Yellow [facility] Urine cultureOrdered By: Lg Miramontes on 04-07-2024 Bacteria identified Cx Nom (U) Negative Abnormal [facility] Urine glucose detectionOrder ed By: David Miramontes on 04-07-2024 Glucose Ql (U) Normal mg/dl Normal [facility] Urine leukocyte esterase det ection by dipstickOrdered By: David Miramontes on 04-07-2024 Leukocyte esterase Test strip Ql (U) 25 /ul High Negative [facility] Urine pHOrdered By: Leo Miramontes on 04-07-2024 pH (U) 6.5 [pH] 5.0 - 8.0 [facility] Urine specific gravity measu rementOrdered By: Frandyfeliciaingris Pinkamnatereza on 04-07-2024 Specific gravity (U) [Rel density] 1.005 1.002-1.030 [facility] Urine urobilinogen measureme ntOrdered By: David Pinkamnatereza on 04-07-2024 Urobilinogen Ql (U) Normal mg/dl Normal [facility] Urobilinogen Ql (U)Ordered B y: Mayradanay Joesphamnatereza on 04-07-2024 Urine Urobilinogen Normal mg/dl Normal [facility] Absolute lymphocyte countOrd ered By: David Miramontes on 04-04-2024 Lymphocytes Auto (Unsp spec) [#/Vol] 0.82 10*3/uL Low 0.83-4.51 [facility] Absolute neutrophil countOrd ered By: David Miramontes on 04-04-2024 Neutrophils (Bld) [#/Vol] 11.6 10*3/uL High 2.0-7.7 [facility] Automated lymphocyte count a s percentage of total leukocytesOrdered By: David Miramontes on 04-04-2024 Lymphocytes/100 WBC Auto (Unsp spec) 5.9 % Low 19-41 [facility] Basophil percentageOrdered B y: Vickyingris Pinkamnatereza on 04-04-2024 Basophils/100 WBC (Bld) 0.2 % 0-1 [facility] Blood urea nitrogen (BUN)/cr eatinine ratioOrdered By: David Miramontes on 04-04-2024 Urea nitrogen/Creatinine [Mass ratio] 9.6 mg/mg Low 10-20 [facility] Carbon dioxide measurementOr dered By: David Pinkamnatereza on 04-04-2024 CO2 [Moles/Vol] 26.0 mmol/L 21.0-32.0 [facility] Chloride measurementOrdered By: David Pinkamnatereza on 04-04-2024 Chloride [Moles/Vol] 105 mmol/L 98-107 [facility] Eosinophil percentageOrdered By: David Pinkamnatereza on 04-04-2024 Eosinophils/100 WBC (Bld) 0.0 % 0-5 [facility] Erythrocyte distribution wid th (RBC) [Ratio]Ordered By: David Miramontes on 04-04-2024 Erythrocyte distribution width (RBC) [Entitic vol] 55.2 fL High 35.1-43.9 [facility] Erythrocyte distribution wid th ratioOrdered By: danay Miramontes on 04-04-2024 Erythrocyte distribution width (RBC) [Ratio] 15.2 % High 11.6-14.6 [facility] Erythrocyte distribution wid th standard deviationOrdered By: danay Miramontes on 04-04-2024 Erythrocyte distribution width (RBC) [Ratio] 55.2 fl High 35.1-43.9 [facility] Estimated glomerular filtrat ion rate (GFR) AmericanOrdered By: David Miramontes on 04-04-2024 Estimated GFR (MDRD) Amer 47 mL/min Low >60 [facility] Comment on above: GFR Calc Glomerular filtration rate ( GFR) estimationOrdered By: David Miramontes on 04-04-2024 Estimated GFR (MDRD) Non-Af Amer 39 mL/min Low >60 [facility] Comment on above: Non- GFR Calc GFR/1.73 sq M.predicted among non-blacks MDRD (S/P/Bld) [Vol rate/Area] 39 mL/min/{1.73_m2} Low >60 [facility] Comment on above: Non- GFR Calc Glucose measurementOrdered B y: David Miramontes on 04-04-2024 Glucose [Mass/Vol] 119 mg/dL High 74-106 [facility] Comment on above: Fasting Glucose resu lt from 100 to 125 mg/dL suggests IMPAIRED HOMEOSTASIS per A.D.A. criteria. Hematocrit Auto (Bld) [Volum e fraction]Ordered By: David Miramontes on 04-04-2024 Hematocrit (Bld) [Volume fraction] 49.2 % 40-54 [facility] Hemoglobin measurementOrdere d By: David Miramontes on 04-04-2024 Hemoglobin (Bld) [Mass/Vol] 15.9 g/dL 13.0-16.5 [facility] Immature granulocytes/100 WB C Auto (Bld)Ordered By: David Miramontes on 04-04-2024 Immature granulocytes/100 WBC (Bld) 0.500 % 0.0-0.9 [facility] Comment on above: IG% - Immature Granu locytes (promyelocytes, myelocytes and metamyelocytes) > 1% indicates that a LEFT SHIFT is Present. Lymphocytes Auto (Unsp spec) [#/Vol]Ordered By: David Miramontes on 04-04-2024 Lymphocytes (Bld) [#/Vol] 0.82 10*3/uL Low 0.83-4.51 [facility] Lymphocytes/100 WBC Auto (Un sp spec)Ordered By: David Miramontes on 04-04-2024 Lymphocytes/100 WBC (Bld) 5.9 % Low 19-41 [facility] MCV (mean corpuscular volume ) determinationOrdered By: David Miramontes on 04-04-2024 MCV (RBC) [Entitic vol] 98.4 fL High 80-94 [facility] Mean corpuscular hemoglobin (MCH) determinationOrdered By: waynesnow campingris Miramontes on 04-04-2024 MCH (RBC) [Entitic mass] 31.8 pg 27.0-32.0 [facility] Mean corpuscular hemoglobin concentration (MCHC) determinationOrdered By: David Miramontes on 04-04-2024 MCHC (RBC) [Mass/Vol] 32.3 g/dL 32-36 [facility] Mean platelet volume determi nationOrdered By: David Miramontes on 04-04-2024 Platelet mean volume (Bld) [Entitic vol] 12.5 fL High 6.2-12.0 [facility] Monocyte percentageOrdered B y: David Miramontes on 04-04-2024 Monocytes/100 WBC (Bld) 9.9 % 0-10 [facility] Neutrophil percentageOrdered By: David Miramontes on 04-04-2024 Neutrophils/100 WBC (Bld) 83.5 % High 47-70 [facility] Nucleated red blood cell per centageOrdered By: David Miramontes on 04-04-2024 Nucleated RBC/100 WBC (Bld) [Ratio] 0 % 0-5 [facility] Platelet countOrdered By: danay Miramontes on 04-04-2024 Platelets (Bld) [#/Vol] 209 10*3/uL 150-450 [facility] Potassium measurementOrdered By: David Miramontes on 04-04-2024 Potassium [Moles/Vol] 4.2 mmol/L 3.5-5.1 [facility] Comment on above: Slight Hemolysis, Re sult may be falsely increased. RBC Auto (Bld) [#/Vol]Ordere d By: David Joesphiman on 04-04-2024 RBC (Bld) [#/Vol] 5.00 10*6/uL 4.6-6.2 [facility] Serum anion gap measurementO rdered By: David Miramontes on 04-04-2024 Anion gap [Moles/Vol] 8 mmol/L 5-15 [facility] Serum or plasma calcium siobhan urement (mass/volume)Ordered By: David Joesphiman on 04-04-2024 Calcium [Mass/Vol] 9.6 mg/dL 8.5-10.1 [facility] Serum or plasma creatinine m easurement (mass/volume)Ordered By: David Joesphiman on 04-04-2024 Creatinine [Mass/Vol] 1.77 mg/dL High 0.70-1.30 [facility] Comment on above: The validity of the calculated GFR & GFRAA in patients over 70 years has not been determined. Clinical correlation is essential. Serum or plasma urea nitroge n measurement (mass/volume)Ordered By: Vickyingris Pinkamnatereza on 04-04-2024 Urea nitrogen [Mass/Vol] 17 mg/dL 7-18 [facility] Sodium levelOrdered By: Frandy Miramontes on 04-04-2024 Sodium [Moles/Vol] 139 mmol/L 136-145 [facility] White blood cell (WBC) count Ordered By: David Joesphiman on 04-04-2024 WBC (Bld) [#/Vol] 13.9 10*3/uL High 4.4-11.0 [facility] Absolute lymphocyte countOrd ered By: David Miramontes on 04-06-2023 Lymphocytes Auto (Unsp spec) [#/Vol] 1.24 10*3/uL 0.83-4.51 [facility] Automated lymphocyte count a s percentage of total leukocytesOrdered By: David Miramontes on 04-06-2023 Lymphocytes/100 WBC Auto (Unsp spec) 18.7 % 19-41 [facility] Basophil percentageOrdered B y: David Miramontes on 04-06-2023 Basophils/100 WBC (Bld) 0.5 % 0-1 [facility] Chloride [Moles/Vol] 109 mmol/L 98-107 [facility] Eosinophils/100 WBC (Bld) 1.7 % 0-5 [facility] Glucose [Mass/Vol] 90 mg/dL 74-106 [facility] Hemoglobin (Bld) [Mass/Vol] 15.4 g/dL 13.0-16.5 [facility] Monocytes/100 WBC (Bld) 9.4 % 0-10 [facility] Neutrophils (Bld) [#/Vol] 4.6 10*3/uL 2.0-7.7 [facility] Neutrophils/100 WBC (Bld) 69.2 % 47-70 [facility] Potassium [Moles/Vol] 3.7 mmol/L 3.5-5.1 [facility] Sodium [Moles/Vol] 141 mmol/L 136-145 [facility] WBC (Bld) [#/Vol] 6.6 10*3/uL 4.4-11.0 [facility] Determination of erythrocyte mean corpuscular volume (MCV)Ordered By: David Miramontes on 04-06-2023 MCV (RBC) [Entitic vol] 98.2 fL 80-94 [facility] Erythrocyte distribution wid th ratioOrdered By: David Miramontes on 04-06-2023 Erythrocyte distribution width (RBC) [Ratio] 14.4 % 11.6-14.6 [facility] Erythrocyte distribution wid th standard deviationOrdered By: David Miramontes on 04-06-2023 Erythrocyte distribution width (RBC) [Entitic vol] 51.7 fL 35.1-43.9 [facility] Hematocrit Auto (Bld) [Volum e fraction]Ordered By: David Miramontes on 04-06-2023 Hematocrit (Bld) [Volume fraction] 49.2 % 40-54 [facility] Immature granulocytes/100 WB C Auto (Bld)Ordered By: David Miramontes on 04-06-2023 Immature granulocytes/100 WBC (Bld) 0.500 % 0.0-0.9 [facility] Comment on above: IG% - Immature Granu locytes (promyelocytes, myelocytes and metamyelocytes) > 1% indicates that a LEFT SHIFT is Present. Laboratory - Chemistry and C hemistry - challengeOrdered By: David Miramontes on 04-06-2023 CO2 [Moles/Vol] 27.0 mmol/L 21.0-32.0 [facility] Urea nitrogen/Creatinine [Mass ratio] 15.0 mg/mg 10-20 [facility] Laboratory - Hematology and Cell countsOrdered By: David Miramontes on 04-06-2023 MCH (RBC) [Entitic mass] 30.7 pg 27.0-32.0 [facility] MCHC (RBC) [Mass/Vol] 31.3 g/dL 32-36 [facility] Nucleated RBC/100 WBC (Bld) [Ratio] 0 % 0-5 [facility] Platelet mean volume (Bld) [Entitic vol] 11.5 fL 6.2-12.0 [facility] Platelets (Bld) [#/Vol] 189 10*3/uL 150-450 [facility] No Panel InformationOrdered By: David Miramontes on 04-06-2023 Estimated GFR (MDRD) Amer 85 mL/min >60 [facility] Comment on above: GFR Calc Estimated GFR (MDRD) Non-Af Amer 70 mL/min >60 [facility] Comment on above: Non- GFR Calc RBC Auto (Bld) [#/Vol]Ordere d By: David Miramontes on 04-06-2023 RBC (Bld) [#/Vol] 5.01 10*6/uL 4.6-6.2 [facility] Serum or plasma calcium siobhan urement (mass/volume)Ordered By: David Miramontes on 04-06-2023 Calcium [Mass/Vol] 9.1 mg/dL 8.5-10.1 [facility] Serum or plasma creatinine m easurement (mass/volume)Ordered By: David Miramontes on 04-06-2023 Creatinine [Mass/Vol] 1.07 mg/dL 0.70-1.30 [facility] Comment on above: The validity of the calculated GFR & GFRAA in patients over 70 years has not been determined. Clinical correlation is essential. Serum or plasma urea nitroge n measurement (mass/volume)Ordered By: David Miramontes on 04-06-2023 Urea nitrogen [Mass/Vol] 16 mg/dL 7-18 [facility] Thin prep Papanicolaou smear with manual screeningOrdered By: [facility]ris [facility]es on 04-06-2023 Thin prep Papanicolaou smear with manual screening 5 5-15 [facility] Absolute lymphocyte countOrd ered By: danay Miramontes on 12-30-2022 Lymphocytes Auto (Unsp spec) [#/Vol] 1.16 10*3/uL 0.83-4.51 [facility] Basophil percentageOrdered B y: David Miramontes on 12-30-2022 Basophils/100 WBC (Bld) 0.4 % 0-1 [facility] Chloride [Moles/Vol] 109 mmol/L 98-107 [facility] Eosinophils/100 WBC (Bld) 1.3 % 0-5 [facility] Glucose [Mass/Vol] 84 mg/dL 74-106 [facility] Neutrophils (Bld) [#/Vol] 5.4 10*3/uL 2.0-7.7 [facility] Neutrophils/100 WBC (Bld) 72.7 % 47-70 [facility] Potassium [Moles/Vol] 3.6 mmol/L 3.5-5.1 [facility] Sodium [Moles/Vol] 142 mmol/L 136-145 [facility] WBC (Bld) [#/Vol] 7.4 10*3/uL 4.4-11.0 [facility] Blood erythrocytes count (nu mber/volume)Ordered By: David Miramontes on 12-30-2022 RBC (Bld) [#/Vol] 4.15 10*6/uL 4.6-6.2 [facility] Blood hemoglobin measurement (mass/volume)Ordered By: David Miramontes on 12-30-2022 Hemoglobin (Bld) [Mass/Vol] 13.0 g/dL 13.0-16.5 [facility] Blood lymphocytes/100 leukoc ytesOrdered By: waynesnow campingris Miramontes on 12-30-2022 Lymphocytes/100 WBC (Bld) 15.6 % 19-41 [facility] Blood monocytes/100 leukocyt esOrdered By: David Miramontes on 12-30-2022 Monocytes/100 WBC (Bld) 9.6 % 0-10 [facility] Blood platelet mean volumeOr dered By: David Miramontes on 12-30-2022 Platelet mean volume (Bld) [Entitic vol] 11.6 fL 6.2-12.0 [facility] Determination of erythrocyte mean corpuscular volume (MCV)Ordered By: David Miramontes on 12-30-2022 MCV (RBC) [Entitic vol] 99.5 fL 80-94 [facility] Hematocrit Auto (Bld) [Volum e fraction]Ordered By: David Miramontes on 12-30-2022 Hematocrit (Bld) [Volume fraction] 41.3 % 40-54 [facility] Laboratory - Chemistry and C hemistry - challengeOrdered By: David Miramontes on 12-30-2022 CO2 [Moles/Vol] 27.0 mmol/L 21.0-32.0 [facility] Urea nitrogen/Creatinine [Mass ratio] 11.6 mg/mg 10-20 [facility] Laboratory - Hematology and Cell countsOrdered By: David Miramontes on 12-30-2022 Erythrocyte distribution width (RBC) [Entitic vol] 51.5 fL 35.1-43.9 [facility] Erythrocyte distribution width (RBC) [Ratio] 14.2 % 11.6-14.6 [facility] Immature granulocytes/100 WBC (Bld) 0.400 % 0.0-0.9 [facility] Comment on above: IG% - Immature Granu locytes (promyelocytes, myelocytes and metamyelocytes) > 1% indicates that a LEFT SHIFT is Present. MCH (RBC) [Entitic mass] 31.3 pg 27.0-32.0 [facility] Nucleated RBC/100 WBC (Bld) [Ratio] 0 % 0-5 [facility] MCHC Auto (RBC) [Mass/Vol]Or dered By: David Miramontes on 12-30-2022 MCHC (RBC) [Mass/Vol] 31.5 g/dL 32-36 [facility] No Panel InformationOrdered By: David Miramontes on 12-30-2022 Estimated GFR (MDRD) Amer 108 mL/min >60 [facility] Comment on above: GFR Calc Estimated GFR (MDRD) Non-Af Amer 90 mL/min >60 [facility] Comment on above: Non- GFR Calc Platelets bldOrdered By: Lg Miramontes on 12-30-2022 Platelets (Bld) [#/Vol] 165 10*3/uL 150-450 [facility] Serum or plasma calcium siobhan urement (mass/volume)Ordered By: David Miramontes on 12-30-2022 Calcium [Mass/Vol] 8.3 mg/dL 8.5-10.1 [facility] Serum or plasma creatinine m easurement (mass/volume)Ordered By: David Miramontes on 12-30-2022 Creatinine [Mass/Vol] 0.86 mg/dL 0.70-1.30 [facility] Comment on above: The validity of the calculated GFR & GFRAA in patients over 70 years has not been determined. Clinical correlation is essential. Serum or plasma urea nitroge n measurement (mass/volume)Ordered By: David Miramontes on 12-30-2022 Urea nitrogen [Mass/Vol] 10 mg/dL 7-18 [facility] Thin prep Papanicolaou smear with manual screeningOrdered By: David Miramontes on 12-30-2022 Thin prep Papanicolaou smear with manual screening 6 5-15 [facility] Absolute lymphocyte countOrd ered By: David Miramontes on 09-29-2022 Lymphocytes Auto (Unsp spec) [#/Vol] 1.19 10*3/uL 0.83-4.51 [facility] Basophil percentageOrdered B y: David Miramontes on 09-29-2022 Basophils/100 WBC (Bld) 0.2 % 0-1 [facility] Chloride [Moles/Vol] 109 mmol/L 98-107 [facility] Eosinophils/100 WBC (Bld) 0.1 % 0-5 [facility] Glucose [Mass/Vol] 100 mg/dL 74-106 [facility] Comment on above: Fasting Glucose resu lt from 100 to 125 mg/dL suggests IMPAIRED HOMEOSTASIS per A.D.A. criteria. Neutrophils (Bld) [#/Vol] 8.4 10*3/uL 2.0-7.7 [facility] Neutrophils/100 WBC (Bld) 80.3 % 47-70 [facility] Potassium [Moles/Vol] 4.0 mmol/L 3.5-5.1 [facility] Sodium [Moles/Vol] 141 mmol/L 136-145 [facility] WBC (Bld) [#/Vol] 10.4 10*3/uL 4.4-11.0 [facility] Blood erythrocytes count (nu mber/volume)Ordered By: David Miramontes on 09-29-2022 RBC (Bld) [#/Vol] 4.62 10*6/uL 4.6-6.2 [facility] Blood hemoglobin measurement (mass/volume)Ordered By: David Miramontes on 09-29-2022 Hemoglobin (Bld) [Mass/Vol] 14.6 g/dL 13.0-16.5 [facility] Blood lymphocytes/100 leukoc ytesOrdered By: David Miramontes on 09-29-2022 Lymphocytes/100 WBC (Bld) 11.5 % 19-41 [facility] Blood monocytes/100 leukocyt esOrdered By: David Miramontes on 09-29-2022 Monocytes/100 WBC (Bld) 7.3 % 0-10 [facility] Blood platelet mean volumeOr dered By: David Miramontes on 09-29-2022 Platelet mean volume (Bld) [Entitic vol] 11.5 fL 6.2-12.0 [facility] Determination of erythrocyte mean corpuscular volume (MCV)Ordered By: David Miramontes on 09-29-2022 MCV (RBC) [Entitic vol] 99.4 fL 80-94 [facility] Hematocrit Auto (Bld) [Volum e fraction]Ordered By: Frandysnow campingris Miramontes on 09-29-2022 Hematocrit (Bld) [Volume fraction] 45.9 % 40-54 [facility] Laboratory - Chemistry and C hemistry - challengeOrdered By: waynesnow campingris Miramontes on 09-29-2022 CO2 [Moles/Vol] 28.0 mmol/L 21.0-32.0 [facility] Urea nitrogen/Creatinine [Mass ratio] 13.8 mg/mg 10-20 [facility] Laboratory - Hematology and Cell countsOrdered By: [facility] on 09-29-2022 Erythrocyte distribution width (RBC) [Entitic vol] 51.7 fL 35.1-43.9 [facility] Erythrocyte distribution width (RBC) [Ratio] 14.2 % 11.6-14.6 [facility] Immature granulocytes/100 WBC (Bld) 0.600 % 0.0-0.9 [facility] Comment on above: IG% - Immature Granu locytes (promyelocytes, myelocytes and metamyelocytes) > 1% indicates that a LEFT SHIFT is Present. MCH (RBC) [Entitic mass] 31.6 pg 27.0-32.0 [facility] Nucleated RBC/100 WBC (Bld) [Ratio] 0 % 0-5 [facility] MCHC Auto (RBC) [Mass/Vol]Or dered By: David Miramontes on 09-29-2022 MCHC (RBC) [Mass/Vol] 31.8 g/dL 32-36 [facility] No Panel InformationOrdered By: David Miramontes on 09-29-2022 Estimated GFR (MDRD) Amer 98 mL/min >60 [facility] Comment on above: GFR Calc Estimated GFR (MDRD) Non-Af Amer 81 mL/min >60 [facility] Comment on above: Non- GFR Calc Platelets bldOrdered By: Lg Miramontes on 09-29-2022 Platelets (Bld) [#/Vol] 185 10*3/uL 150-450 [facility] Serum or plasma calcium siobhan urement (mass/volume)Ordered By: David Miramontes on 09-29-2022 Calcium [Mass/Vol] 8.9 mg/dL 8.5-10.1 [facility] Serum or plasma creatinine m easurement (mass/volume)Ordered By: David Miramontes on 09-29-2022 Creatinine [Mass/Vol] 0.94 mg/dL 0.70-1.30 [facility] Comment on above: The validity of the calculated GFR & GFRAA in patients over 70 years has not been determined. Clinical correlation is essential. Serum or plasma urea nitroge n measurement (mass/volume)Ordered By: David Miramontes on 09-29-2022 Urea nitrogen [Mass/Vol] 13 mg/dL 7-18 [facility] Thin prep Papanicolaou smear with manual screeningOrdered By: David Miramontes on 09-29-2022 Thin prep Papanicolaou smear with manual screening 4 5-15 [facility] Absolute lymphocyte countOrd ered By: David Miramontes on 06-29-2022 Lymphocytes Auto (Unsp spec) [#/Vol] 1.43 10*3/uL 0.83-4.51 [facility] Basophil percentageOrdered B y: David Miramontes on 06-29-2022 Basophils/100 WBC (Bld) 0.6 % 0-1 [facility] Chloride [Moles/Vol] 107 mmol/L 98-107 [facility] Eosinophils/100 WBC (Bld) 1.5 % 0-5 [facility] Glucose [Mass/Vol] 85 mg/dL 74-106 [facility] Neutrophils (Bld) [#/Vol] 4.4 10*3/uL 2.0-7.7 [facility] Neutrophils/100 WBC (Bld) 65.4 % 47-70 [facility] Potassium [Moles/Vol] 3.6 mmol/L 3.5-5.1 [facility] Sodium [Moles/Vol] 140 mmol/L 136-145 [facility] WBC (Bld) [#/Vol] 6.7 10*3/uL 4.4-11.0 [facility] Blood erythrocytes count (nu mber/volume)Ordered By: David Miramontes on 06-29-2022 RBC (Bld) [#/Vol] 4.55 10*6/uL 4.6-6.2 [facility] Blood hemoglobin measurement (mass/volume)Ordered By: David Miramontes on 06-29-2022 Hemoglobin (Bld) [Mass/Vol] 14.5 g/dL 13.0-16.5 [facility] Blood lymphocytes/100 leukoc ytesOrdered By: David Miramontes on 06-29-2022 Lymphocytes/100 WBC (Bld) 21.5 % 19-41 [facility] Blood monocytes/100 leukocyt esOrdered By: David Miramontes on 06-29-2022 Monocytes/100 WBC (Bld) 10.7 % 0-10 [facility] Blood platelet mean volumeOr dered By: David Miramontes on 06-29-2022 Platelet mean volume (Bld) [Entitic vol] 11.2 fL 6.2-12.0 [facility] Determination of erythrocyte mean corpuscular volume (MCV)Ordered By: David Miramontes on 06-29-2022 MCV (RBC) [Entitic vol] 98.9 fL 80-94 [facility] Hematocrit Auto (Bld) [Volum e fraction]Ordered By: David Miramontes on 06-29-2022 Hematocrit (Bld) [Volume fraction] 45.0 % 40-54 [facility] Laboratory - Chemistry and C hemistry - challengeOrdered By: David Miramontes on 06-29-2022 CO2 [Moles/Vol] 30.0 mmol/L 21.0-32.0 [facility] Urea nitrogen/Creatinine [Mass ratio] 13.6 mg/mg 10-20 [facility] Laboratory - Hematology and Cell countsOrdered By: David Miramontes on 06-29-2022 Erythrocyte distribution width (RBC) [Entitic vol] 51.6 fL 35.1-43.9 [facility] Erythrocyte distribution width (RBC) [Ratio] 14.3 % 11.6-14.6 [facility] Immature granulocytes/100 WBC (Bld) 0.300 % 0.0-0.9 [facility] Comment on above: IG% - Immature Granu locytes (promyelocytes, myelocytes and metamyelocytes) > 1% indicates that a LEFT SHIFT is Present. MCH (RBC) [Entitic mass] 31.9 pg 27.0-32.0 [facility] Nucleated RBC/100 WBC (Bld) [Ratio] 0 % 0-5 [facility] MCHC Auto (RBC) [Mass/Vol]Or dered By: David Miramontes on 06-29-2022 MCHC (RBC) [Mass/Vol] 32.2 g/dL 32-36 [facility] No Panel InformationOrdered By: David Miramontes on 06-29-2022 Estimated GFR (MDRD) Amer 89 mL/min >60 [facility] Comment on above: GFR Calc Estimated GFR (MDRD) Non-Af Amer 73 mL/min >60 [facility] Comment on above: Non- GFR Calc Platelets bldOrdered By: Lg Miramontes on 06-29-2022 Platelets (Bld) [#/Vol] 161 10*3/uL 150-450 [facility] Serum or plasma calcium siobhan urement (mass/volume)Ordered By: David Miramontes on 06-29-2022 Calcium [Mass/Vol] 8.7 mg/dL 8.5-10.1 [facility] Serum or plasma creatinine m easurement (mass/volume)Ordered By: David Miramontes on 06-29-2022 Creatinine [Mass/Vol] 1.03 mg/dL 0.70-1.30 [facility] Comment on above: The validity of the calculated GFR & GFRAA in patients over 70 years has not been determined. Clinical correlation is essential. Serum or plasma urea nitroge n measurement (mass/volume)Ordered By: David Miramontes on 06-29-2022 Urea nitrogen [Mass/Vol] 14 mg/dL 7-18 [facility] Thin prep Papanicolaou smear with manual screeningOrdered By: David Miramontes on 06-29-2022 Thin prep Papanicolaou smear with manual screening 3 5-15 [facility] Absolute lymphocyte countOrd ered By: David Miramontes on 04-01-2022 Lymphocytes Auto (Unsp spec) [#/Vol] 1.25 10*3/uL 0.83-4.51 [facility] Basophil percentageOrdered B y: David Miramontes on 04-01-2022 Basophils/100 WBC (Bld) 0.4 % 0-1 [facility] Chloride [Moles/Vol] 108 mmol/L 98-107 [facility] Eosinophils/100 WBC (Bld) 1.5 % 0-5 [facility] Glucose [Mass/Vol] 106 mg/dL 74-106 [facility] Comment on above: Fasting Glucose resu lt from 100 to 125 mg/dL suggests IMPAIRED HOMEOSTASIS per A.D.A. criteria. Neutrophils (Bld) [#/Vol] 4.7 10*3/uL 2.0-7.7 [facility] Neutrophils/100 WBC (Bld) 69.1 % 47-70 [facility] Potassium [Moles/Vol] 3.6 mmol/L 3.5-5.1 [facility] Sodium [Moles/Vol] 143 mmol/L 136-145 [facility] WBC (Bld) [#/Vol] 6.8 10*3/uL 4.4-11.0 [facility] Blood erythrocytes count (nu mber/volume)Ordered By: David Miramontes on 04-01-2022 RBC (Bld) [#/Vol] 4.69 10*6/uL 4.6-6.2 [facility] Blood hemoglobin measurement (mass/volume)Ordered By: David Miramontes on 04-01-2022 Hemoglobin (Bld) [Mass/Vol] 14.8 g/dL 13.0-16.5 [facility] Blood lymphocytes/100 leukoc ytesOrdered By: David Miramontes on 04-01-2022 Lymphocytes/100 WBC (Bld) 18.5 % 19-41 [facility] Blood monocytes/100 leukocyt esOrdered By: David Miramontes on 04-01-2022 Monocytes/100 WBC (Bld) 10.2 % 0-10 [facility] Blood platelet mean volumeOr dered By: David Miramontes on 04-01-2022 Platelet mean volume (Bld) [Entitic vol] 11.5 fL 6.2-12.0 [facility] Determination of erythrocyte mean corpuscular volume (MCV)Ordered By: David Miramontes on 04-01-2022 MCV (RBC) [Entitic vol] 97.0 fL 80-94 [facility] Hematocrit Auto (Bld) [Volum e fraction]Ordered By: David Miramontes on 04-01-2022 Hematocrit (Bld) [Volume fraction] 45.5 % 40-54 [facility] Laboratory - Chemistry and C hemistry - challengeOrdered By: waynesnow campingris Miramontes on 04-01-2022 CO2 [Moles/Vol] 29.0 mmol/L 21.0-32.0 [facility] Urea nitrogen/Creatinine [Mass ratio] 13.0 mg/mg 10-20 [facility] Laboratory - Hematology and Cell countsOrdered By: David Miramontes on 04-01-2022 Erythrocyte distribution width (RBC) [Entitic vol] 51.1 fL 35.1-43.9 [facility] Erythrocyte distribution width (RBC) [Ratio] 14.4 % 11.6-14.6 [facility] Immature granulocytes/100 WBC (Bld) 0.300 % 0.0-0.9 [facility] Comment on above: IG% - Immature Granu locytes (promyelocytes, myelocytes and metamyelocytes) > 1% indicates that a LEFT SHIFT is Present. MCH (RBC) [Entitic mass] 31.6 pg 27.0-32.0 [facility] Nucleated RBC/100 WBC (Bld) [Ratio] 0 % 0-5 [facility] MCHC Auto (RBC) [Mass/Vol]Or dered By: David Miramontes on 04-01-2022 MCHC (RBC) [Mass/Vol] 32.5 g/dL 32-36 [facility] No Panel InformationOrdered By: David Miramontes on 04-01-2022 Estimated GFR (MDRD) Amer 92 mL/min >60 [facility] Comment on above: GFR Calc Estimated GFR (MDRD) Non-Af Amer 76 mL/min >60 [facility] Comment on above: Non- GFR Calc Platelets bldOrdered By: Lg Miraomntes on 04-01-2022 Platelets (Bld) [#/Vol] 167 10*3/uL 150-450 [facility] Serum or plasma calcium siobhan urement (mass/volume)Ordered By: David Miramontes on 04-01-2022 Calcium [Mass/Vol] 9.1 mg/dL 8.5-10.1 [facility] Serum or plasma creatinine m easurement (mass/volume)Ordered By: David Miramontes on 04-01-2022 Creatinine [Mass/Vol] 1.00 mg/dL 0.70-1.30 [facility] Comment on above: The validity of the calculated GFR & GFRAA in patients over 70 years has not been determined. Clinical correlation is essential. Serum or plasma urea nitroge n measurement (mass/volume)Ordered By: David Miramontes on 04-01-2022 Urea nitrogen [Mass/Vol] 13 mg/dL 7-18 [facility] Thin prep Papanicolaou smear with manual screeningOrdered By: David Miramontes on 04-01-2022 Thin prep Papanicolaou smear with manual screening 6 5-15 [facility] Absolute lymphocyte countOrd ered By: Jhonny Tomas on 01-07-2022 Lymphocytes Auto (Unsp spec) [#/Vol] 1.54 10*3/uL 0.83-4.51 [facility] Basophil percentageOrdered B y: Jhonny Tomas on 01-07-2022 Basophils/100 WBC (Bld) 0.3 % 0-1 [facility] Chloride [Moles/Vol] 104 mmol/L 98-107 [facility] Eosinophils/100 WBC (Bld) 1.9 % 0-5 [facility] Glucose [Mass/Vol] 89 mg/dL 74-106 [facility] Neutrophils (Bld) [#/Vol] 4.8 10*3/uL 2.0-7.7 [facility] Neutrophils/100 WBC (Bld) 66.5 % 47-70 [facility] Potassium [Moles/Vol] 4.1 mmol/L 3.5-5.1 [facility] Sodium [Moles/Vol] 141 mmol/L 136-145 [facility] WBC (Bld) [#/Vol] 7.2 10*3/uL 4.4-11.0 [facility] Blood erythrocytes count (nu mber/volume)Ordered By: Jhonny Tomas on 01-07-2022 RBC (Bld) [#/Vol] 4.80 10*6/uL 4.6-6.2 [facility] Blood hemoglobin measurement (mass/volume)Ordered By: Jhonny Tomas on 01-07-2022 Hemoglobin (Bld) [Mass/Vol] 15.2 g/dL 13.0-16.5 [facility] Blood lymphocytes/100 leukoc ytesOrdered By: Jhonny Tomas on 01-07-2022 Lymphocytes/100 WBC (Bld) 21.3 % 19-41 [facility] Blood monocytes/100 leukocyt esOrdered By: Jhonny Tomas on 01-07-2022 Monocytes/100 WBC (Bld) 9.7 % 0-10 [facility] Blood platelet mean volumeOr dered By: Jhonny Tomas on 01-07-2022 Platelet mean volume (Bld) [Entitic vol] 11.2 fL 6.2-12.0 [facility] Determination of erythrocyte mean corpuscular volume (MCV)Ordered By: Jhonny Tomas on 01-07-2022 MCV (RBC) [Entitic vol] 97.3 fL 80-94 [facility] Hematocrit Auto (Bld) [Volum e fraction]Ordered By: Jhonny Tomas on 01-07-2022 Hematocrit (Bld) [Volume fraction] 46.7 % 40-54 [facility] Laboratory - Chemistry and C hemistry - challengeOrdered By: Jhonny Tomas on 01-07-2022 CO2 [Moles/Vol] 29.0 mmol/L 21.0-32.0 [facility] Urea nitrogen/Creatinine [Mass ratio] 11.4 mg/mg 10-20 [facility] Laboratory - Hematology and Cell countsOrdered By: Jhonny Tomas on 01-07-2022 Erythrocyte distribution width (RBC) [Entitic vol] 52.0 fL 35.1-43.9 [facility] Erythrocyte distribution width (RBC) [Ratio] 14.5 % 11.6-14.6 [facility] Immature granulocytes/100 WBC (Bld) 0.300 % 0.0-0.9 [facility] Comment on above: IG% - Immature Granu locytes (promyelocytes, myelocytes and metamyelocytes) > 1% indicates that a LEFT SHIFT is Present. MCH (RBC) [Entitic mass] 31.7 pg 27.0-32.0 [facility] Nucleated RBC/100 WBC (Bld) [Ratio] 0 % 0-5 [facility] MCHC Auto (RBC) [Mass/Vol]Or dered By: Jhonny Tomas on 01-07-2022 MCHC (RBC) [Mass/Vol] 32.5 g/dL 32-36 [facility] No Panel InformationOrdered By: Jhonny Tomas on 01-07-2022 Estimated GFR (MDRD) Amer 79 mL/min >60 [facility] Comment on above: GFR Calc Estimated GFR (MDRD) Non-Af Amer 65 mL/min >60 [facility] Comment on above: Non- GFR Calc Platelets bldOrdered By: Joao Tomas on 01-07-2022 Platelets (Bld) [#/Vol] 192 10*3/uL 150-450 [facility] Serum or plasma calcium siobhan urement (mass/volume)Ordered By: Jhonny Tomas on 01-07-2022 Calcium [Mass/Vol] 8.8 mg/dL 8.5-10.1 [facility] Serum or plasma creatinine m easurement (mass/volume)Ordered By: Jhonny Tomas on 01-07-2022 Creatinine [Mass/Vol] 1.14 mg/dL 0.70-1.30 [facility] Comment on above: The validity of the calculated GFR & GFRAA in patients over 70 years has not been determined. Clinical correlation is essential. Serum or plasma urea nitroge n measurement (mass/volume)Ordered By: Jhonny Tomas on 01-07-2022 Urea nitrogen [Mass/Vol] 13 mg/dL 7-18 [facility] Thin prep Papanicolaou smear with manual screeningOrdered By: Jhonny Tomas on 01-07-2022 Thin prep Papanicolaou smear with manual screening 8 5-15 [facility] Absolute lymphocyte countOrd ered By: Jhonny Tomas on 12-24-2021 Lymphocytes Auto (Unsp spec) [#/Vol] 1.60 10*3/uL 0.83-4.51 [facility] Basophil percentageOrdered B y: Jhonny Tomas on 12-24-2021 Basophils/100 WBC (Bld) 0.4 % 0-1 [facility] Chloride [Moles/Vol] 109 mmol/L 98-107 [facility] Eosinophils/100 WBC (Bld) 1.5 % 0-5 [facility] Glucose [Mass/Vol] 93 mg/dL 74-106 [facility] Neutrophils (Bld) [#/Vol] 4.8 10*3/uL 2.0-7.7 [facility] Neutrophils/100 WBC (Bld) 66.8 % 47-70 [facility] Potassium [Moles/Vol] 4.0 mmol/L 3.5-5.1 [facility] Comment on above: Slight Hemolysis, Re sult may be falsely increased. Sodium [Moles/Vol] 140 mmol/L 136-145 [facility] WBC (Bld) [#/Vol] 7.2 10*3/uL 4.4-11.0 [facility] Blood erythrocytes count (nu mber/volume)Ordered By: Jhonny Tomas on 12-24-2021 RBC (Bld) [#/Vol] 4.49 10*6/uL 4.6-6.2 [facility] Blood hemoglobin measurement (mass/volume)Ordered By: Jhonny Tomas on 12-24-2021 Hemoglobin (Bld) [Mass/Vol] 14.5 g/dL 13.0-16.5 [facility] Blood lymphocytes/100 leukoc ytesOrdered By: Jhonny Tomas on 12-24-2021 Lymphocytes/100 WBC (Bld) 22.2 % 19-41 [facility] Blood monocytes/100 leukocyt esOrdered By: Jhonny Tomas on 12-24-2021 Monocytes/100 WBC (Bld) 9.0 % 0-10 [facility] Blood platelet mean volumeOr dered By: Jhonny Tomas on 12-24-2021 Platelet mean volume (Bld) [Entitic vol] 11.2 fL 6.2-12.0 [facility] Determination of erythrocyte mean corpuscular volume (MCV)Ordered By: Jhonny Tomas on 12-24-2021 MCV (RBC) [Entitic vol] 97.1 fL 80-94 [facility] Hematocrit Auto (Bld) [Volum e fraction]Ordered By: Jhonny Tomas on 12-24-2021 Hematocrit (Bld) [Volume fraction] 43.6 % 40-54 [facility] Laboratory - Chemistry and C hemistry - challengeOrdered By: Jhonny Tomas on 12-24-2021 CO2 [Moles/Vol] 26.0 mmol/L 21.0-32.0 [facility] Urea nitrogen/Creatinine [Mass ratio] 14.7 mg/mg 10-20 [facility] Laboratory - Hematology and Cell countsOrdered By: Jhonny Tomas on 12-24-2021 Erythrocyte distribution width (RBC) [Entitic vol] 51.8 fL 35.1-43.9 [facility] Erythrocyte distribution width (RBC) [Ratio] 14.4 % 11.6-14.6 [facility] Immature granulocytes/100 WBC (Bld) 0.100 % 0.0-0.9 [facility] Comment on above: IG% - Immature Granu locytes (promyelocytes, myelocytes and metamyelocytes) > 1% indicates that a LEFT SHIFT is Present. MCH (RBC) [Entitic mass] 32.3 pg 27.0-32.0 [facility] Nucleated RBC/100 WBC (Bld) [Ratio] 0 % 0-5 [facility] MCHC Auto (RBC) [Mass/Vol]Or dered By: Jhonny Tomas on 12-24-2021 MCHC (RBC) [Mass/Vol] 33.3 g/dL 32-36 [facility] No Panel InformationOrdered By: Jhonny Tomas on 12-24-2021 Estimated GFR (MDRD) Amer 90 mL/min >60 [facility] Comment on above: GFR Calc Estimated GFR (MDRD) Non-Af Amer 74 mL/min >60 [facility] Comment on above: Non- GFR Calc Platelets bldOrdered By: Jooa Tomas on 12-24-2021 Platelets (Bld) [#/Vol] 166 10*3/uL 150-450 [facility] Serum or plasma calcium siobhan urement (mass/volume)Ordered By: Jhonny Tomas on 12-24-2021 Calcium [Mass/Vol] 8.8 mg/dL 8.5-10.1 [facility] Serum or plasma creatinine m easurement (mass/volume)Ordered By: Jhonny Tomas on 12-24-2021 Creatinine [Mass/Vol] 1.02 mg/dL 0.70-1.30 [facility] Comment on above: The validity of the calculated GFR & GFRAA in patients over 70 years has not been determined. Clinical correlation is essential. Serum or plasma urea nitroge n measurement (mass/volume)Ordered By: Jhonny Tomas on 12-24-2021 Urea nitrogen [Mass/Vol] 15 mg/dL 7-18 [facility] Thin prep Papanicolaou smear with manual screeningOrdered By: Jhonny Tomas on 12-24-2021 Thin prep Papanicolaou smear with manual screening 5 5-15 [facility] Absolute lymphocyte counton 12-10-2021 Lymphocytes Auto (Unsp spec) [#/Vol] 1.33 10*3/uL 0.83-4.51 [facility] Work Phone: Basophil percentageon 2021 Basophils/100 WBC (Bld) 0.4 % 0-1 [facility] Work Phone: Chloride [Moles/Vol] 105 mmol/L 98-107 [facility] Work Phone: [phone] Eosinophils/100 WBC (Bld) 1.3 % 0-5 [facility] Work Phone: Glucose [Mass/Vol] 103 mg/dL 74-106 [facility] Work Phone: Comment on above: Fasting Glucose resu lt from 100 to 125 mg/dL suggests IMPAIRED HOMEOSTASIS per A.D.A. criteria. Neutrophils (Bld) [#/Vol] 4.8 10*3/uL 2.0-7.7 [facility] Work Phone: Neutrophils/100 WBC (Bld) 69.1 % 47-70 [facility] Work Phone: Potassium [Moles/Vol] 3.7 mmol/L 3.5-5.1 [facility] Work Phone: Sodium [Moles/Vol] 141 mmol/L 136-145 [facility] Work Phone: [phone] WBC (Bld) [#/Vol] 7.0 10*3/uL 4.4-11.0 [facility] Work Phone: Blood erythrocytes count (nu mber/volume)on 12-10-2021 RBC (Bld) [#/Vol] 4.88 10*6/uL 4.6-6.2 [facility] Work Phone: [phone] Blood hemoglobin measurement (mass/volume)on 12-10-2021 Hemoglobin (Bld) [Mass/Vol] 15.5 g/dL 13.0-16.5 [facility] Work Phone: Blood lymphocytes/100 leukoc yteson 12-10-2021 Lymphocytes/100 WBC (Bld) 19.1 % 19-41 [facility] Work Phone: Blood monocytes/100 leukocyt eson 12-10-2021 Monocytes/100 WBC (Bld) 9.8 % 0-10 [facility] Work Phone: Blood platelet mean volumeon 12-10-2021 Platelet mean volume (Bld) [Entitic vol] 10.8 fL 6.2-12.0 [facility] Work Phone: Determination of erythrocyte mean corpuscular volume (MCV)on 12-10-2021 MCV (RBC) [Entitic vol] 95.9 fL 80-94 [facility] Work Phone: Hematocrit Auto (Bld) [Volum e fraction]on 12-10-2021 Hematocrit (Bld) [Volume fraction] 46.8 % 40-54 [facility] Work Phone: Laboratory - Chemistry and C hemistry - challengeon 12-10-2021 CO2 [Moles/Vol] 30.0 mmol/L 21.0-32.0 [facility] Work Phone: Urea nitrogen/Creatinine [Mass ratio] 11.3 mg/mg 10-20 [facility] Work Phone: Laboratory - Hematology and Cell countson 12-10-2021 Erythrocyte distribution width (RBC) [Entitic vol] 51.1 fL 35.1-43.9 [facility] Work Phone: Erythrocyte distribution width (RBC) [Ratio] 14.4 % 11.6-14.6 [facility] Work Phone: Immature granulocytes/100 WBC (Bld) 0.300 % 0.0-0.9 [facility] Work Phone: Comment on above: IG% - Immature Granu locytes (promyelocytes, myelocytes and metamyelocytes) > 1% indicates that a LEFT SHIFT is Present. MCH (RBC) [Entitic mass] 31.8 pg 27.0-32.0 [facility] Work Phone: Nucleated RBC/100 WBC (Bld) [Ratio] 0 % 0-5 [facility] Work Phone: MCHC Auto (RBC) [Mass/Vol]on 12-10-2021 MCHC (RBC) [Mass/Vol] 33.1 g/dL 32-36 [facility] Work Phone: No Panel Informationon 12-10 Estimated GFR (MDRD) Amer 86 mL/min >60 [facility] Work Phone: Comment on above: GFR Calc Estimated GFR (MDRD) Non-Af Amer 71 mL/min >60 [facility] Work Phone: Comment on above: Non- GFR Calc Platelets bldon 12-10-2021 Platelets (Bld) [#/Vol] 176 10*3/uL 150-450 [facility] Work Phone: Serum or plasma calcium siobhan urement (mass/volume)on 12-10-2021 Calcium [Mass/Vol] 8.9 mg/dL 8.5-10.1 [facility] Work Phone: Serum or plasma creatinine m easurement (mass/volume)on 12-10-2021 Creatinine [Mass/Vol] 1.06 mg/dL 0.70-1.30 [facility] Work Phone: Comment on above: The validity of the calculated GFR & GFRAA in patients over 70 years has not been determined. Clinical correlation is essential. Serum or plasma urea nitroge n measurement (mass/volume)on 12-10-2021 Urea nitrogen [Mass/Vol] 12 mg/dL 7-18 [facility] Work Phone: Thin prep Papanicolaou smear with manual screeningon 12-10-2021 Thin prep Papanicolaou smear with manual screening 6 5-15 [facility] Work Phone: CNPNon 12-09-2021 [facility] KEL DILLARD ([id number]) 1940 M Date Time Provider Department 12/09/21 NICOLAS CARDENAS INTMWS During your visit today, we recorded the following information about you: Ludivina Cárdenas LPN 12/09/2021 3:11 PM Signed Patient anant willis said PCP completed expert evaluation form on 09/29 for guardianship and flyer maker said question number [phone] needs revised. Anant Barry said 2 weeks after form was done father had fall and was taken to [facility] then sent to [facility] for rehab. Now father is [...] stay and he is now under the [place] attending physician's care. It is more appropriate for the [place] attending physician to do another form. More statements need corrected/updated Preethi Delgadillo RN 12/11/2021 2:59 PM Signed Son (Jhonny) calls in and provider message reviewed. Son asking if form brought in can be picked back up in Medical Records. Please contact Jhonny at [phone]. RENETTA Rubio LPN 12/11/2021 3:41 PM Signed [...] Status:Closed by FLORA WOOD LPN on 12/11/21 [facility] Absolute lymphocyte counton 11-26-2021 Lymphocytes Auto (Unsp spec) [#/Vol] 1.47 10*3/uL 0.83-4.51 [facility] Work Phone: Basophil percentageon 2021 Basophils/100 WBC (Bld) 0.6 % 0-1 [facility] Work Phone: Chloride [Moles/Vol] 107 mmol/L 98-107 [facility] Work Phone: Eosinophils/100 WBC (Bld) 1.1 % 0-5 [facility] Work Phone: Glucose [Mass/Vol] 92 mg/dL 74-106 [facility] Work Phone: Neutrophils (Bld) [#/Vol] 6.4 10*3/uL 2.0-7.7 [facility] Work Phone: [phone] Neutrophils/100 WBC (Bld) 71.7 % 47-70 [facility] Work Phone: Potassium [Moles/Vol] 4.0 mmol/L 3.5-5.1 [facility] Work Phone: Comment on above: Slight Hemolysis, Re sult may be falsely increased. Sodium [Moles/Vol] 141 mmol/L 136-145 [facility] Work Phone: WBC (Bld) [#/Vol] 9.0 10*3/uL 4.4-11.0 [facility] Work Phone: Blood erythrocytes count (nu mber/volume)on 11-26-2021 RBC (Bld) [#/Vol] 4.81 10*6/uL 4.6-6.2 [facility] Work Phone: Blood hemoglobin measurement (mass/volume)on 11-26-2021 Hemoglobin (Bld) [Mass/Vol] 15.3 g/dL 13.0-16.5 [facility] Work Phone: Blood lymphocytes/100 leukoc yteson 11-26-2021 Lymphocytes/100 WBC (Bld) 16.4 % 19-41 [facility] Work Phone: Blood monocytes/100 leukocyt eson 11-26-2021 Monocytes/100 WBC (Bld) 9.9 % 0-10 [facility] Work Phone: Blood platelet mean volumeon 11-26-2021 Platelet mean volume (Bld) [Entitic vol] 11.2 fL 6.2-12.0 [facility] Work Phone: Determination of erythrocyte mean corpuscular volume (MCV)on 11-26-2021 MCV (RBC) [Entitic vol] 96.7 fL 80-94 [facility] Work Phone: Hematocrit Auto (Bld) [Volum e fraction]on 11-26-2021 Hematocrit (Bld) [Volume fraction] 46.5 % 40-54 [facility] Work Phone: Laboratory - Chemistry and C hemistry - challengeon 11-26-2021 CO2 [Moles/Vol] 28.0 mmol/L 21.0-32.0 [facility] Work Phone: Urea nitrogen/Creatinine [Mass ratio] 13.3 mg/mg 10-20 [facility] Work Phone: Laboratory - Hematology and Cell countson 11-26-2021 Erythrocyte distribution width (RBC) [Entitic vol] 51.9 fL 35.1-43.9 [facility] Work Phone: Erythrocyte distribution width (RBC) [Ratio] 14.5 % 11.6-14.6 [facility] Work Phone: Immature granulocytes/100 WBC (Bld) 0.300 % 0.0-0.9 [facility] Work Phone: Comment on above: IG% - Immature Granu locytes (promyelocytes, myelocytes and metamyelocytes) > 1% indicates that a LEFT SHIFT is Present. MCH (RBC) [Entitic mass] 31.8 pg 27.0-32.0 [facility] Work Phone: Nucleated RBC/100 WBC (Bld) [Ratio] 0 % 0-5 [facility] Work Phone: MCHC Auto (RBC) [Mass/Vol]on 11-26-2021 MCHC (RBC) [Mass/Vol] 32.9 g/dL 32-36 [facility] Work Phone: No Panel Informationon 11-26 Estimated GFR (MDRD) Amer 80 mL/min >60 [facility] Work Phone: Comment on above: GFR Calc Estimated GFR (MDRD) Non-Af Amer 66 mL/min >60 [facility] Work Phone: Comment on above: Non- GFR Calc Platelets bldon 11-26-2021 Platelets (Bld) [#/Vol] 181 10*3/uL 150-450 [facility] Work Phone: Serum or plasma calcium siobhan urement (mass/volume)on 11-26-2021 Calcium [Mass/Vol] 8.7 mg/dL 8.5-10.1 [facility] Work Phone: Serum or plasma creatinine m easurement (mass/volume)on 11-26-2021 Creatinine [Mass/Vol] 1.13 mg/dL 0.70-1.30 [facility] Work Phone: Comment on above: The validity of the calculated GFR & GFRAA in patients over 70 years has not been determined. Clinical correlation is essential. Serum or plasma urea nitroge n measurement (mass/volume)on 11-26-2021 Urea nitrogen [Mass/Vol] 15 mg/dL 7-18 [facility] Work Phone: Thin prep Papanicolaou smear with manual screeningon 11-26-2021 Thin prep Papanicolaou smear with manual screening 6 5-15 [facility] Work Phone: Absolute lymphocyte counton 11-12-2021 Lymphocytes Auto (Unsp spec) [#/Vol] 1.01 10*3/uL 0.83-4.51 [facility] Work Phone: Basophil percentageon 2021 Basophils/100 WBC (Bld) 0.6 % 0-1 [facility] Work Phone: Chloride [Moles/Vol] 109 mmol/L 98-107 [facility] Work Phone: Eosinophils/100 WBC (Bld) 1.1 % 0-5 [facility] Work Phone: Glucose [Mass/Vol] 89 mg/dL 74-106 [facility] Work Phone: Neutrophils (Bld) [#/Vol] 4.7 10*3/uL 2.0-7.7 [facility] Work Phone: Neutrophils/100 WBC (Bld) 72.7 % 47-70 [facility] Work Phone: Potassium [Moles/Vol] 3.9 mmol/L 3.5-5.1 [facility] Work Phone: Sodium [Moles/Vol] 142 mmol/L 136-145 [facility] Work Phone: WBC (Bld) [#/Vol] 6.5 10*3/uL 4.4-11.0 [facility] Work Phone: Blood erythrocytes count (nu mber/volume)on 11-12-2021 RBC (Bld) [#/Vol] 4.50 10*6/uL 4.6-6.2 [facility] Work Phone: Blood hemoglobin measurement (mass/volume)on 11-12-2021 Hemoglobin (Bld) [Mass/Vol] 14.4 g/dL 13.0-16.5 [facility] Work Phone: Blood lymphocytes/100 leukoc yteson 11-12-2021 Lymphocytes/100 WBC (Bld) 15.5 % 19-41 [facility] Work Phone: Blood monocytes/100 leukocyt eson 11-12-2021 Monocytes/100 WBC (Bld) 9.8 % 0-10 [facility] Work Phone: Blood platelet mean volumeon 11-12-2021 Platelet mean volume (Bld) [Entitic vol] 10.9 fL 6.2-12.0 [facility] Work Phone: Determination of erythrocyte mean corpuscular volume (MCV)on 11-12-2021 MCV (RBC) [Entitic vol] 97.3 fL 80-94 [facility] Work Phone: Hematocrit Auto (Bld) [Volum e fraction]on 11-12-2021 Hematocrit (Bld) [Volume fraction] 43.8 % 40-54 [facility] Work Phone: Laboratory - Chemistry and C hemistry - challengeon 11-12-2021 CO2 [Moles/Vol] 26.0 mmol/L 21.0-32.0 [facility] Work Phone: Urea nitrogen/Creatinine [Mass ratio] 16.4 mg/mg 10-20 [facility] Work Phone: Laboratory - Hematology and Cell countson 11-12-2021 Erythrocyte distribution width (RBC) [Entitic vol] 53.1 fL 35.1-43.9 [facility] Work Phone: Erythrocyte distribution width (RBC) [Ratio] 14.8 % 11.6-14.6 [facility] Work Phone: Immature granulocytes/100 WBC (Bld) 0.300 % 0.0-0.9 [facility] Work Phone: Comment on above: IG% - Immature Granu locytes (promyelocytes, myelocytes and metamyelocytes) > 1% indicates that a LEFT SHIFT is Present. MCH (RBC) [Entitic mass] 32.0 pg 27.0-32.0 [facility] Work Phone: Nucleated RBC/100 WBC (Bld) [Ratio] 0 % 0-5 [facility] Work Phone: MCHC Auto (RBC) [Mass/Vol]on 11-12-2021 MCHC (RBC) [Mass/Vol] 32.9 g/dL 32-36 [facility] Work Phone: No Panel Informationon 11-12 Estimated GFR (MDRD) Amer 102 mL/min >60 [facility] Work Phone: Comment on above: GFR Calc Estimated GFR (MDRD) Non-Af Amer 84 mL/min >60 [facility] Work Phone: Comment on above: Non- GFR Calc Platelets bldon 11-12-2021 Platelets (Bld) [#/Vol] 181 10*3/uL 150-450 [facility] Work Phone: Serum or plasma calcium siobhan urement (mass/volume)on 11-12-2021 Calcium [Mass/Vol] 8.7 mg/dL 8.5-10.1 [facility] Work Phone: Serum or plasma creatinine m easurement (mass/volume)on 11-12-2021 Creatinine [Mass/Vol] 0.92 mg/dL 0.70-1.30 [facility] Work Phone: Comment on above: The validity of the calculated GFR & GFRAA in patients over 70 years has not been determined. Clinical correlation is essential. Serum or plasma urea nitroge n measurement (mass/volume)on 11-12-2021 Urea nitrogen [Mass/Vol] 15 mg/dL 7-18 [facility] Work Phone: Thin prep Papanicolaou smear with manual screeningon 11-12-2021 Thin prep Papanicolaou smear with manual screening 7 5-15 [facility] Work Phone: Absolute lymphocyte counton 10-29-2021 Lymphocytes Auto (Unsp spec) [#/Vol] 0.96 10*3/uL 0.83-4.51 [facility] Work Phone: Basophil percentageon 2021 Basophils/100 WBC (Bld) 0.5 % 0-1 [facility] Work Phone: Chloride [Moles/Vol] 110 mmol/L 98-107 [facility] Work Phone: Eosinophils/100 WBC (Bld) 1.9 % 0-5 [facility] Work Phone: Glucose [Mass/Vol] 93 mg/dL 74-106 [facility] Work Phone: Neutrophils (Bld) [#/Vol] 4.5 10*3/uL 2.0-7.7 [facility] Work Phone: Neutrophils/100 WBC (Bld) 70.1 % 47-70 [facility] Work Phone: Potassium [Moles/Vol] 3.8 mmol/L 3.5-5.1 [facility] Work Phone: Sodium [Moles/Vol] 142 mmol/L 136-145 [facility] Work [facility]: WBC (Bld) [#/Vol] 6.4 10*3/uL 4.4-11.0 [facility] Work Phone: Blood erythrocytes count (nu mber/volume)on 10-29-2021 RBC (Bld) [#/Vol] 4.38 10*6/uL 4.6-6.2 [facility] Work Phone: Blood hemoglobin measurement (mass/volume)on 10-29-2021 Hemoglobin (Bld) [Mass/Vol] 13.9 g/dL 13.0-16.5 [facility] Work Phone: Blood lymphocytes/100 leukoc yteson 10-29-2021 Lymphocytes/100 WBC (Bld) 15.1 % 19-41 [facility] Work Phone: Blood monocytes/100 leukocyt eson 10-29-2021 Monocytes/100 WBC (Bld) 12.1 % 0-10 [facility] Work Phone: Blood platelet mean volumeon 10-29-2021 Platelet mean volume (Bld) [Entitic vol] 11.2 fL 6.2-12.0 [facility] Work Phone: Determination of erythrocyte mean corpuscular volume (MCV)on 10-29-2021 MCV (RBC) [Entitic vol] 96.8 fL 80-94 [facility] Work Phone: Hematocrit Auto (Bld) [Volum e fraction]on 10-29-2021 Hematocrit (Bld) [Volume fraction] 42.4 % 40-54 [facility] Work Phone: Laboratory - Chemistry and C hemistry - challengeon 10-29-2021 CO2 [Moles/Vol] 27.0 mmol/L 21.0-32.0 [facility] Work Phone: Urea nitrogen/Creatinine [Mass ratio] 11.1 mg/mg 10-20 [facility] Work Phone: Laboratory - Hematology and Cell countson 10-29-2021 Erythrocyte distribution width (RBC) [Entitic vol] 52.1 fL 35.1-43.9 [facility] Work Phone: Erythrocyte distribution width (RBC) [Ratio] 14.6 % 11.6-14.6 [facility] Work Phone: Immature granulocytes/100 WBC (Bld) 0.300 % 0.0-0.9 [facility] Work Phone: Comment on above: IG% - Immature Granu locytes (promyelocytes, myelocytes and metamyelocytes) > 1% indicates that a LEFT SHIFT is Present. MCH (RBC) [Entitic mass] 31.7 pg 27.0-32.0 [facility] Work Phone: Nucleated RBC/100 WBC (Bld) [Ratio] 0 % 0-5 [facility] Work Phone: MCHC Auto (RBC) [Mass/Vol]on 10-29-2021 MCHC (RBC) [Mass/Vol] 32.8 g/dL 32-36 [facility] Work Phone: No Panel Informationon 10-29 Estimated GFR (MDRD) Amer 84 mL/min >60 [facility] Work Phone: Comment on above: GFR Calc Estimated GFR (MDRD) Non-Af Amer 70 mL/min >60 [facility] Work Phone: Comment on above: Non- GFR Calc Platelets bldon 10-29-2021 Platelets (Bld) [#/Vol] 187 10*3/uL 150-450 [facility] Work Phone: Serum or plasma calcium siobhan urement (mass/volume)on 10-29-2021 Calcium [Mass/Vol] 8.8 mg/dL 8.5-10.1 [facility] Work Phone: Serum or plasma creatinine m easurement (mass/volume)on 10-29-2021 Creatinine [Mass/Vol] 1.08 mg/dL 0.70-1.30 [facility] Work Phone: Comment on above: The validity of the calculated GFR & GFRAA in patients over 70 years has not been determined. Clinical correlation is essential. Serum or plasma urea nitroge n measurement (mass/volume)on 10-29-2021 Urea nitrogen [Mass/Vol] 12 mg/dL 7-18 [facility] Work Phone: Thin prep Papanicolaou smear with manual screeningon 10-29-2021 Thin prep Papanicolaou smear with manual screening 5 5-15 [facility] Work Phone: CNPNon 10-23-2021 [facility] Telephone (INTMWS) KEL DILLARD ([id number]) 1940 M Date Time Provider Department 10/23/21 NICOLAS CARDENAS INTMWS During your visit today, we recorded the following information about you: Flora Wood LPN 10/23/2021 11:54 AM Signed Per [facility] discharge info pt was discharged to [facility] 10/22/21. Allergies As of Date: 10/23/2021 (No [...] by FLORA WOOD LPN on 10/23/21 Normal [facility] Laboratory - Chemistry and C hemistry - challengeon 10-22-2021 CK [Catalytic activity/Vol] 1616 U/L 39-308 [facility] Work Phone: [phone] Absolute lymphocyte counton 10-21-2021 Lymphocytes Auto (Unsp spec) [#/Vol] 0.75 10*3/uL 0.83-4.51 [facility] Work Phone: Basophil percentageon 2021 Basophils/100 WBC (Bld) 0.1 % 0-1 [facility] Work Phone: [phone] Chloride [Moles/Vol] 107 mmol/L 98-107 [facility] Work Phone: [phone] Eosinophils/100 WBC (Bld) 0.0 % 0-5 [facility] Work Phone: [phone] Glucose [Mass/Vol] 144 mg/dL 74-106 [facility] Work Phone: Comment on above: Fasting Glucose resu lt greater than or equal to 126 mg/dL suggests DIABETES MELLITUS per A.D.A. criteria. Neutrophils (Bld) [#/Vol] 11.4 10*3/uL 2.0-7.7 [facility] Work Phone: [phone] Neutrophils/100 WBC (Bld) 85.4 % 47-70 [facility] Work Phone: [phone] Potassium [Moles/Vol] 3.7 mmol/L 3.5-5.1 [facility] Work Phone: [phone] Sodium [Moles/Vol] 141 mmol/L 136-145 [facility] Work Phone: [phone] WBC (Bld) [#/Vol] 13.4 10*3/uL 4.4-11.0 [facility] Work Phone: [phone] Blood erythrocytes count (nu mber/volume)on 10-21-2021 RBC (Bld) [#/Vol] 5.04 10*6/uL 4.6-6.2 [facility] Work Phone: Blood hemoglobin measurement (mass/volume)on 10-21-2021 Hemoglobin (Bld) [Mass/Vol] 15.7 g/dL 13.0-16.5 [facility] Work Phone: Blood lymphocytes/100 leukoc yteson 10-21-2021 Lymphocytes/100 WBC (Bld) 5.6 % 19-41 [facility] Work Phone: Blood monocytes/100 leukocyt eson 10-21-2021 Monocytes/100 WBC (Bld) 8.5 % 0-10 [facility] Work Phone: Blood platelet mean volumeon 10-21-2021 Platelet mean volume (Bld) [Entitic vol] 11.2 fL 6.2-12.0 [facility] Work Phone: Determination of erythrocyte mean corpuscular volume (MCV)on 10-21-2021 MCV (RBC) [Entitic vol] 93.8 fL 80-94 [facility] Work Phone: Hematocrit Auto (Bld) [Volum e fraction]on 10-21-2021 Hematocrit (Bld) [Volume fraction] 47.3 % 40-54 [facility] Work Phone: Laboratory - Chemistry and C hemistry - challengeon 10-21-2021 CO2 [Moles/Vol] 26.0 mmol/L 21.0-32.0 [facility] Work Phone: Urea nitrogen/Creatinine [Mass ratio] 14.2 mg/mg 10-20 [facility] Work Phone: Laboratory - Hematology and Cell countson 10-21-2021 Erythrocyte distribution width (RBC) [Entitic vol] 50.5 fL 35.1-43.9 [facility] Work Phone: Erythrocyte distribution width (RBC) [Ratio] 14.7 % 11.6-14.6 [facility] Work Phone: Immature granulocytes/100 WBC (Bld) 0.400 % 0.0-0.9 [facility] Work Phone: Comment on above: IG% - Immature Granu locytes (promyelocytes, myelocytes and metamyelocytes) > 1% indicates that a LEFT SHIFT is Present. MCH (RBC) [Entitic mass] 31.2 pg 27.0-32.0 [facility] Work Phone: Nucleated RBC/100 WBC (Bld) [Ratio] 0 % 0-5 [facility] Work Phone: MCHC Auto (RBC) [Mass/Vol]on 10-21-2021 MCHC (RBC) [Mass/Vol] 33.2 g/dL 32-36 [facility] Work Phone: No Panel Informationon 10-21 Estimated Creatinine Clearance Calc 48.76 ml/min [facility] Work Phone: Estimated GFR (MDRD) Amer 80 mL/min >60 [facility] Work Phone: Comment on above: GFR Calc Estimated GFR (MDRD) Non-Af Amer 66 mL/min >60 [facility] Work Phone: Comment on above: Non- GFR Calc Thyroid Stimulating Hormone (TSH) 1.56 uIU/mL 0.358-3.74 [facility] Work Phone: Vitamin D 25-Hydroxy 10.8 ng/mL [facility] Work Phone: Comment on above: Vitamin D 25(OH) Sta tus Range Deficiency <20 ng/mL (50nmol/L) Insufficiency 20 - 30 ng/mL (50 - 75 nmol/L) Sufficiency 30 - 100 ng/mL (75 - 250 nmol/L) Toxicity >100 ng/mL (>250 nmol/L) Platelets bldon 10-21-2021 Platelets (Bld) [#/Vol] 219 10*3/uL 150-450 [facility] Work Phone: Serum or plasma calcium siobhan urement (mass/volume)on 10-21-2021 Calcium [Mass/Vol] 9.1 mg/dL 8.5-10.1 [facility] Work Phone: Serum or plasma creatinine m easurement (mass/volume)on 10-21-2021 Creatinine [Mass/Vol] 1.13 mg/dL 0.70-1.30 [facility] Work Phone: Comment on above: The validity of the calculated GFR & GFRAA in patients over 70 years has not been determined. Clinical correlation is essential. Serum or plasma urea nitroge n measurement (mass/volume)on 10-21-2021 Urea nitrogen [Mass/Vol] 16 mg/dL 7-18 [facility] Work Phone: Thin prep Papanicolaou smear with manual screeningon 10-21-2021 Thin prep Papanicolaou smear with manual screening 8 5-15 [facility] Work Phone: Absolute lymphocyte counton 10-20-2021 Lymphocytes Auto (Unsp spec) [#/Vol] 0.59 10*3/uL 0.83-4.51 [facility] Work Phone: Basophil percentageon 2021 Basophil percentage 5-10 SEEN /hpf 0-5 [facility] Work Phone: Basophils/100 WBC (Bld) 0.1 % 0-1 [facility] Work Phone: Chloride [Moles/Vol] 107 mmol/L 98-107 [facility] Work Phone: Eosinophils/100 WBC (Bld) 0.0 % 0-5 [facility] Work Phone: Glucose [Mass/Vol] 110 mg/dL 74-106 [facility] Work Phone: Comment on above: Fasting Glucose resu lt from 100 to 125 mg/dL suggests IMPAIRED HOMEOSTASIS per A.D.A. criteria. Neutrophils (Bld) [#/Vol] 11.6 10*3/uL 2.0-7.7 [facility] Work Phone: Neutrophils/100 WBC (Bld) 85.8 % 47-70 [facility] Work Phone: Potassium [Moles/Vol] 3.6 mmol/L 3.5-5.1 [facility] Work Phone: Sodium [Moles/Vol] 141 mmol/L 136-145 [facility] Work Phone: WBC (Bld) [#/Vol] 13.5 10*3/uL 4.4-11.0 [facility] Work Phone: Bilirubin Test strip Ql (U)o n 10-20-2021 Bilirubin Ql (U) Negative Negative [facility] Work Phone: Blood erythrocytes count (nu mber/volume)on 10-20-2021 RBC (Bld) [#/Vol] 5.14 10*6/uL 4.6-6.2 [facility] Work Phone: Blood hemoglobin measurement (mass/volume)on 10-20-2021 Hemoglobin (Bld) [Mass/Vol] 15.9 g/dL 13.0-16.5 [facility] Work Phone: Blood lymphocytes/100 leukoc yteson 10-20-2021 Lymphocytes/100 WBC (Bld) 4.4 % 19-41 [facility] Work Phone: Blood manual differential co mment interpretation (narrative result)on 10-20-2021 Manual differential comment Wei (Bld) [Interp] SEE COMMENT [facility] Work Phone: Comment on above: LYMPHOPENIA NOTED Blood monocytes/100 leukocyt eson 10-20-2021 Monocytes/100 WBC (Bld) 9.0 % 0-10 [facility] Work Phone: Blood platelet adequacy dete ction by light microscopyon 10-20-2021 Platelets LM Ql (Bld) ADEQUATE ADEQ [facility] Work Phone: Blood platelet mean volumeon 10-20-2021 Platelet mean volume (Bld) [Entitic vol] 10.4 fL 6.2-12.0 [facility] Work Phone: Determination of erythrocyte mean corpuscular volume (MCV)on 10-20-2021 MCV (RBC) [Entitic vol] 92.8 fL 80-94 [facility] Work Phone: Hematocrit Auto (Bld) [Volum e fraction]on 10-20-2021 Hematocrit (Bld) [Volume fraction] 47.7 % 40-54 [facility] Work Phone: Hyaline casts LM.LPF (Urine sed) [#/Area]on 10-20-2021 Hyaline casts (Urine sed) [#/Area] 0 /[LPF] 0-5 [facility] Work Phone: Ketones Test strip Ql (U)on 10-20-2021 Ketones Ql (U) 50 mg/dl Negative [facility] Work Phone: Laboratory - Chemistry and C hemistry - challengeon 10-20-2021 CO2 [Moles/Vol] 25.0 mmol/L 21.0-32.0 [facility] Work Phone: Urea nitrogen/Creatinine [Mass ratio] 15.0 mg/mg 10-20 [facility] Work Phone: Laboratory - Hematology and Cell countson 10-20-2021 Anisocytosis Ql (Bld) RARE [facility] Work Phone: Erythrocyte distribution width (RBC) [Entitic vol] 48.4 fL 35.1-43.9 [facility] Work Phone: Erythrocyte distribution width (RBC) [Ratio] 14.4 % 11.6-14.6 [facility] Work Phone: Immature granulocytes/100 WBC (Bld) 0.700 % 0.0-0.9 [facility] Work Phone: Comment on above: IG% - Immature Granu locytes (promyelocytes, myelocytes and metamyelocytes) > 1% indicates that a LEFT SHIFT is Present. MCH (RBC) [Entitic mass] 30.9 pg 27.0-32.0 [facility] Work Phone: Nucleated RBC/100 WBC (Bld) [Ratio] 0 % 0-5 [facility] Work Phone: MCHC Auto (RBC) [Mass/Vol]on 10-20-2021 MCHC (RBC) [Mass/Vol] 33.3 g/dL 32-36 [facility] Work Phone: Macrocytes detectionon 10-20 Macrocytes Ql (Bld) RARE [facility] Work Phone: Mucus LM Ql (Urine sed)on Mucus Ql (Urine sed) 0 SEEN /hpf [facility] Work Phone: Nitrite Test strip Ql (U)on 10-20-2021 Nitrite Ql (U) Negative Negative [facility] Work Phone: No Panel Informationon 10-20 Estimated Creatinine Clearance Calc 53.23 ml/min [facility] Work Phone: Estimated GFR (MDRD) Amer 85 mL/min >60 [facility] Work Phone: Comment on above: GFR Calc Estimated GFR (MDRD) Non-Af Amer 70 mL/min >60 [facility] Work Phone: Comment on above: Non- GFR Calc Platelets bldon 10-20-2021 Platelets (Bld) [#/Vol] 198 10*3/uL 150-450 [facility] Work Phone: Protein Test strip Ql (U)on 10-20-2021 Protein Ql (U) 30 mg/dl Negative [facility] Work Phone: RBC morphologyon 10-20-2021 RBC morphology finding Nom (Bld) N CHROM NORMAL NORM C&C [facility] Work Phone: Serum or plasma calcium siobhan urement (mass/volume)on 10-20-2021 Calcium [Mass/Vol] 9.1 mg/dL 8.5-10.1 [facility] Work Phone: Serum or plasma creatinine m easurement (mass/volume)on 10-20-2021 Creatinine [Mass/Vol] 1.07 mg/dL 0.70-1.30 [facility] Work Phone: Comment on above: The validity of the calculated GFR & GFRAA in patients over 70 years has not been determined. Clinical correlation is essential. Serum or plasma urea nitroge n measurement (mass/volume)on 10-20-2021 Urea nitrogen [Mass/Vol] 16 mg/dL 7-18 [facility] Work Phone: Squamous epithelial cells de tection in urine sediment by light microscopyon 10-20-2021 Epithelial cells.squamous LM Ql (Urine sed) 0 SEEN /hpf 0-5 [facility] Work Phone: Thin prep Papanicolaou smear with manual screeningon 10-20-2021 Thin prep Papanicolaou smear with manual screening 9 5-15 [facility] Work Phone: Urine blood detectionon 09-30 RBC Ql (U) 250 /ul Negative [facility] Work Phone: RBC Ql (U) 0 SEEN /hpf 0-5 [facility] Work Phone: Urine clarityon 10-20-2021 Clarity (U) Sl. Cloudy Clear [facility] Work Phone: Urine color determinationon 10-20-2021 Color (U) Kristina Yellow [facility] Work Phone: Urine glucose detectionon Glucose Ql (U) Normal mg/dl Normal [facility] Work Phone: Urine leukocyte esterase det ection by dipstickon 10-20-2021 Leukocyte esterase Test strip Ql (U) 25 /ul Negative [facility] Work Phone: Urine pHon 10-20-2021 pH (U) 5.0 [pH] 5.0 - 8.0 [facility] Work Phone: Urine sediment bacteria coun t by microscopy (number/high power field)on 10-20-2021 Bacteria LM.HPF (Urine sed) [#/Area] 1 /[HPF] None Seen [facility] Work Phone: Urine specific gravity measu rementon 10-20-2021 Specific gravity (U) [Rel density] 1.025 1.002-1.030 [facility] Work Phone: Urobilinogen Auto test strip Ql (U)on 10-20-2021 Urobilinogen Ql (U) 1 mg/dl Normal [facility] Work Phone: CNOVon 09-29-2021 CNOV Office Visit (INTMWS) KEL DILLARD ([id number]) 1940 M Date Time Provider Department 09/29/21 4:40 PM NICOLAS CARDENAS INTGINA During your visit today, we recorded the following information about you: Temperature Pulse Respiration Blood pressure Normal [facility] 07-15-2021 CNPN Telephone (INTMWS) KEL DILLARD ([id number]) 1940 M Date Time Provider Department 07/15/21 CARDENASNICOLAS GREER During your visit today, we recorded the [...] last OV be faxed to them at [phone]. This nurse contacted son Jhonny to verify the request and he confirmed it was ok to share requested information. Information faxed as requested. Karen Matias RN Allergies As of Date: 07/15/2021 (No Known Allergies) Date Reviewed: 05/12/2021 Reviewed by: Dori Martines APRN.WELFARE MANAGER - Fully Assessed Reason for Visit: [...] Encounter Status:Closed by KAREN MATIAS on 07/15/21 [facility] Culture, urine Bacteria identified Cx Nom (U) Positive [facility] Work Phone: Vital Signs Date Time Vital Sign Value Performing Clinician Nuzhati jam 11-02-2024 05:29-0400 Respiratory rate 18 /min Dr. David Miramontes MD Work Phone: [facility] 11-02-2024 05:22-0400 Body temperature 98.2 [degF] Dr. David Miramontes MD Work Phone: [facility] 11-02-2024 05:22-0400 Diastolic blood pressure 80 mm[Hg] Dr. David Miramontes MD Work Phone: [facility] 11-02-2024 05:22-0400 Heart rate 67 /min Dr. David Miramontes MD Work Phone: [facility] 11-02-2024 05:22-0400 SaO2% (BldA) [Mass fraction] 98 % Dr. David Miramontes MD Work Phone: [facility] 11-02-2024 05:22-0400 Systolic blood pressure 154 mm[Hg] Dr. David Miramontes MD Work Phone: [facility] 11-02-2024 03:30-0400 Body height 172.[address] David Miramontes MD Work Phone: [facility] 11-02-2024 03:30-0400 Body mass index (BMI) [Ratio] 29.7 kg/m2 Dr. David Miramontes MD Work Phone: [facility] 11-02-2024 03:30-0400 Body weight 88.[address] David Miramontes MD Work Phone: [facility] 10-29-2024 11:28-0400 Body temperature 98.3 [degF] Dr. David Miramontes MD Work Phone: [facility] 10-29-2024 11:28-0400 Diastolic blood pressure 84 mm[Hg] Dr. David Miramontes MD Work Phone: [facility] 10-29-2024 11:28-0400 Heart rate 66 /min Dr. David Miramontes MD Work Phone: [facility] 10-29-2024 11:28-0400 Respiratory rate 16 /min Dr. David Miramontes MD Work Phone: [facility] 10-29-2024 11:28-0400 SaO2% (BldA) [Mass fraction] 99 % Dr. David Miramontes MD Work Phone: [facility] 10-29-2024 11:28-0400 Systolic blood pressure 118 mm[Hg] Dr. David Miramontes MD Work Phone: [facility] 10-29-2024 09:52-0400 Body height 172.[address] David Miramontes MD Work Phone: [facility] 10-29-2024 09:52-0400 Body mass index (BMI) [Ratio] 29.1 kg/m2 Dr. David Miramontes MD Work Phone: [facility] 10-29-2024 09:52-0400 Body weight [address] David Miramontes MD Work Phone: [facility] 10-27-2024 22:00-0400 Diastolic blood pressure 55 mm[Hg] Dr. David Miramontes MD Work Phone: [facility] 10-27-2024 22:00-0400 Heart rate 65 /min Dr. David Miramontes MD Work Phone: [facility] 10-27-2024 22:00-0400 Respiratory rate 16 /min Dr. David Miramontes MD Work Phone: [facility] 10-27-2024 22:00-0400 Systolic blood pressure 146 mm[Hg] Dr. David Miramontes MD Work Phone: [facility] 10-27-2024 21:52-0400 Body temperature 98 [degF] Dr. David Miramontes MD Work Phone: [facility] 10-27-2024 21:52-0400 SaO2% (BldA) [Mass fraction] 96 % Dr. David Miramontes MD Work Phone: [facility] 10-27-2024 20:34-0400 Body height 172.[address] David Miramontes MD Work Phone: [facility] 10-27-2024 20:34-0400 Body mass index (BMI) [Ratio] 30.2 kg/m2 Dr. David Miramontes MD Work Phone: [facility] 10-27-2024 20:34-0400 Body weight 90.[address] David Miramontes MD Work Phone: [facility] 09-15-2024 13:51-0400 Body height 175.[address] David Miramontes MD Work Phone: [facility] 09-15-2024 12:10-0400 Body height 175.[address] David Miramontes MD Work Phone: [facility] 09-13-2024 11:44-0400 Body height 175.[address] David Miramontes MD Work Phone: [facility] 12-02-2022 10:40-0400 Body height 175.[address] Nicolas Cardenas Work Phone: [facility] 04-02-2022 14:41-0500 Body height 175.[address] Nicolas Cardenas Work Phone: [facility] 10-22-2021 08:30-0400 Body temperature 98.2 [degF] Dr. Nicolas Cardenas Work Phone: [facility] Work Phone: 10-22-2021 08:30-0400 Diastolic blood pressure 71 mm[Hg] Dr. Nicolas Cardenas Work Phone: [facility] Work Phone: 10-22-2021 08:30-0400 Heart rate 59 /min Dr. Nicolas Cardenas Work Phone: [facility] Work Phone: 10-22-2021 08:30-0400 Respiratory rate 16 /min Dr. Nicolas Cardenas Work Phone: [facility] Work Phone: 10-22-2021 08:30-0400 SaO2% (BldA) [Mass fraction] 95 % Dr. Nicolas Cardenas Work Phone: [facility] Work Phone: 10-22-2021 08:30-0400 Systolic blood pressure 125 mm[Hg] Dr. Nicolas Cardenas Work Phone: [facility] Work Phone: 10-21-2021 01:00-0400 Body height 175.[address] Nicolas Cardenas Work Phone: [facility] Work Phone: 10-21-2021 01:00-0400 Body mass index (BMI) [Ratio] 28.1 kg/m2 Dr. Nicolas Cardenas Work Phone: [facility] Work Phone: 10-21-2021 01:00-0400 Body weight 86.[address] Nicolas Cardenas Work Phone: [facility] Work Phone: 10-21-2021 00:46-0400 Body temperature 97.9 [degF] Dr. Nicolas Cardenas Work Phone: [facility] Work Phone: 10-21-2021 00:46-0400 Diastolic blood pressure 74 mm[Hg] Dr. Nicolas Cardenas Work Phone: [facility] Work Phone: 10-21-2021 00:46-0400 Heart rate 60 /min Dr. Nicolas Cardenas Work Phone: [facility] Work Phone: 10-21-2021 00:46-0400 Respiratory rate 25 /min Dr. Nicolas Cardenas Work Phone: [facility] Work Phone: 10-21-2021 00:46-0400 SaO2% (BldA) [Mass fraction] 94 % Dr. Nicolas Cardenas Work Phone: [facility] Work Phone: 10-21-2021 00:46-0400 Systolic blood pressure 115 mm[Hg] Dr. Nicolas Cardenas Work Phone: [facility] Work Phone: 10-20-2021 20:20-0400 Body height 175.[address] Nicolas Cardenas Work Phone: [facility] Work Phone: 10-20-2021 20:20-0400 Body mass index (BMI) [Ratio] 28.6 kg/m2 Dr. Nicolas Cardenas Work Phone: [facility] Work Phone: 10-20-2021 20:20-0400 Body weight 87.[address] Nicolas Cardenas Work Phone: [facility] Work Phone: 09-29-2021 16:45-0400 Body height 165.7 cm Nicolas Cardenas MD Work Phone: [place] 09-29-2021 16:45-0400 Body temperature 97.3 [degF] Nicolas Cardenas MD Work Phone: [place] 09-29-2021 16:45-0400 Body weight 87.09 kg Nicolas Cardenas MD Work Phone: [place] 09-29-2021 16:45-0400 Diastolic blood pressure 76 mm[Hg] Nicolas Cardenas MD Work Phone: [place] 09-29-2021 16:45-0400 Heart rate 60 /min Nicolas Cardenas MD Work Phone: [place] 09-29-2021 16:45-0400 Respiratory rate 16 /min Nicolas Cardenas MD Work Phone: [place] 09-29-2021 16:45-0400 Systolic blood pressure 130 mm[Hg] Nicolas Cardenas MD Work Phone: [place] Encounters Encounter Date Encounter Type Care Provider Facility Start: 11-02-2024 Registered Referred David Miramontes MD -[place] Start: 11-02-2024 End: 11-02-2024 Emergency department patient [...] ambulatory Dr. David Miramontes MD Work Phone: [facility] Start: 09-29-2024 End: 09-29-2024 Patient encounter procedure Dasia Barrett [facility] Work Phone: Start: 09-25-2024 End: 09-25-2024 Patient encounter procedure Marimar Zimmer [facility] Work Phone: Start: 09-25-2024 End: 09-25-[address] David Miramontes MD Work Phone: [facility] [place] Start: 09-25-2024 Registered Referred David Pickett Start: 09-19-2024 End: 09-19-[address] David Miramontes MD Work Phone: [facility] [place] Start: 09-19-2024 End: 09-19-2024 Patient encounter procedure Marimar Zimmer [facility] Work Phone: Start: 09-07-2024 ambulatory Efdanay Guerrae Facili ty:[facility] Start: 09-07-2024 Registered Referred David Pickett Start: 08-31-2024 ambulatory Efdanay Pinkghe Facili ty:[facility] Start: 08-31-2024 Registered Referred David Adam [place] Start: 08-29-2024 End: 08-29-[address] David Miramontes MD Work Phone: [facility] [place] Start: 08-29-2024 End: 08-29-[address] David Miramontes MD -[facility] Work Phone: Start: 08-25-2024 End: 08-25-[address] David Miramontes MD Work Phone: [facility] [place] Start: 08-25-2024 End: 08-25-2024 Patient encounter procedure Marimar Zimmer [facility] Work Phone: Start: 08-22-2024 ambulatory David Richardson ty:[facility] Start: 08-22-2024 Registered Referred David Miramontes MD -[facility] Start: 08-21-2024 End: 08-21-[address] David Miramontes MD Work Phone: [facility] [place] Start: 08-21-2024 End: 08-21-2024 Patient encounter procedure Marimar Zimmer [facility] Work Phone: Start: 08-21-2024 End: 08-21-[address] David Miramontes MD Work Phone: [facility] Start: 08-21-2024 End: 08-21-[address] Edson Quinn MD -[facility] Work Phone: Start: 08-15-2024 End: 08-15-[address] David Miramontes MD Work Phone: [facility] [place] Start: 08-15-2024 End: 08-15-2024 Patient encounter procedure Marimar Zimmer [facility] Work Phone: Start: 08-02-2024 ambulatory Efdanay Simonsi ty:[facility] Start: 08-02-2024 [facility] Start: 08-01-2024 ambulatory David GARCIA Fa cility:[facility] Start: 08-01-2024 Registered Referred David AdamKrystle [facility] Start: 07-21-2024 ambulatory David GARCIA Fa cility:[facility] Start: 07-21-2024 [facility] Start: 07-20-2024 End: 07-20-[address] David Miramontes MD Work Phone: [facility] [place] Start: 07-20-2024 End: 07-20-2024 Patient encounter procedure Marimarjacinto Zimmer COMMUNITY LIFE DIRECTOR-C -[facility] Work Phone: Start: 07-18-2024 End: 07-18-[address] David Miramontes MD Work Phone: [facility] [place] Start: 07-18-2024 End: 07-18-[address] David Miramontes MD -[facility] Work Phone: Start: 07-17-2024 End: 07-17-2024 Follow-up encounter Diana Ochoa [place] PATTERN MOLDER.WELFARE MANAGER Work Phone: [facility] Comment on above: Results Start: 07-14-2024 End: 07-14-2024 Office outpatient new 30 minutes Diana Dmitry [place] PATTERN MOLDER.WELFARE MANAGER Work Phone: [facility] Comment on above: Gross hematuria (Lise wallace Dx) Start: 07-14-2024 End: 07-14-2024 ambulatory DIANA DMITRY [place] Facility:[facility] Start: 07-04-2024 End: 07-04-[address] David Miramontes MD Work Phone: [facility] [place] Start: 07-04-2024 End: 07-04-2024 Patient encounter procedure Marimar VASQUES -[facility] Work Phone: Start: 06-23-2024 End: 06-23-[address] David Miramontes MD Work Phone: [facility] Work Phone: Start: 06-23-2024 End: 06-23-2024 Departed Referred David Miramontes MD -[facility] Start: 06-23-2024 End: 06-23-2024 ambulatory Frandycarleen Miramontes OLS Facility:[facility] Start: 06-05-2024 End: 06-05-[address] David Miramontes MD Work Phone: [facility] Work Phone: Start: 06-05-2024 End: 06-05-2024 Departed Referred David AdamKrystle [place] Start: 06-05-2024 Registered Referred David AdamKrystle Piyush Start: 06-05-2024 End: 06-05-2024 ambulatory David Pinkamnatereza Facility:[facility] Start: 05-30-2024 ambulatory Mayradanay Miramontes Facili ty:[facility] Start: 05-30-2024 Non-patient / Non-visit Dr. Josiah Klein MD -[facility] Start: 05-30-2024 End: 05-30-[address] David Miramontes MD -[facility] Work Phone: Start: 05-30-2024 End: 05-30-2024 ambulatory David Miramontes Facility:[facility] Start: 05-30-2024 End: 05-30-2024 Patient encounter procedure Marimar VASQUES -[facility] Work Phone: Start: 05-30-2024 End: 05-30-[address] David Miramontes MD Work Phone: [facility] Work Phone: Start: 05-30-2024 End: 05-30-2024 Departed Referred David [place] Start: 05-30-2024 Registered Referred David Pickett Start: 05-30-2024 End: 05-30-2024 [facility] Facility:[facility] Start: 05-23-2024 End: 05-23-2024 ambulatory [facility] Facility:[facility] Start: 05-23-2024 End: 05-23-[address] David Miramontes MD -[facility] Work Phone: Start: 05-22-2024 End: 05-22-[address] David Miramontes MD Work Phone: [facility] Work Phone: Start: 05-22-2024 End: 05-22-2024 Departed Referred David Pickett Start: 05-22-2024 Registered Referred David Pickett Start: 05-22-2024 End: 05-22-[address] Edson Quinn MD -[place] [facility] Work Phone: Start: 05-22-2024 End: 05-22-2024 ambulatory Edson Quinn Facility:[facility] Start: 05-18-2024 End: 05-18-2024 [facility] Start: 05-18-2024 End: 05-18-2024 Patient encounter procedure Marimar VASQUES -[facility] Work Phone: Start: 05-13-2024 End: 05-13-2024 [facility] Start: 05-13-2024 End: 05-13-[address] Edson Quinn MD -[facility] Work Phone: Start: 05-11-2024 End: 05-11-2024 ambulatory Efewongbe Oleghe Facility:[facility] Start: 05-11-2024 End: 05-11-2024 Patient encounter procedure Marimar Zimmer COMMUNITY LIFE DIRECTOR-C -[facility] Work Phone: Start: 05-01-2024 End: 05-01-2024 ambulatory Efewongbe Oleghe Facility:[facility] Start: 05-01-2024 End: 05-01-2024 Patient encounter procedure Marimar Mesha CARRASCO-Caron -[facility] Work Phone: Start: 04-19-2024 End: 04-19-2024 ambulatory Efewongbe Oleghe Facility:[facility] Start: 04-19-2024 End: 04-19-2024 Patient encounter procedure Marimar Mesha COMMUNITY LIFE DIRECTOR-C -[facility] Work Phone: Start: 04-17-2024 ambulatory Efewongbe Oleghe Facili ty:[facility] Start: 04-17-2024 Registered Referred David AdamKrystle [place] Start: 04-13-2024 ambulatory Efewongbe Oleghe Facili ty:[facility] Start: 04-13-2024 Registered Referred David AdamKrystle [place] Start: 04-11-2024 End: 04-11-2024 ambulatory Efewongbe Oleghe Facility:[facility] Start: 04-11-2024 End: 04-11-[address] [facility] Work Phone: Start: 04-07-2024 ambulatory Efewongbe Oleghe Facili ty:[facility] Start: 04-07-[address] David AdamKrystle [place] Start: 04-04-2024 ambulatory Efewongbe Oleghe Facili ty:[facility] Start: 04-04-2024 Registered Referred David AdamKrystle [place] Start: 03-13-2024 End: 03-13-2024 ambulatory Efewongbe Oleghe Facility:[facility] Start: 03-13-2024 End: 03-13-2024 Patient encounter procedure Marimar VASQUES -[facility] Work Phone: Start: 03-02-2024 End: 03-02-2024 ambulatory Efewongbe Oleghe Facility:[facility] Start: 03-02-2024 End: 03-02-2024 Patient encounter procedure Isidro HOOD -[facility] Work Phone: Start: 02-15-2024 End: 02-15-2024 ambulatory Efewongbe Oleghe Facility:[facility] Start: 02-15-2024 End: 02-15-[address] David Miramontes MD -[facility] Work Phone: Start: 02-14-2024 End: 02-14-2024 ambulatory Efewongbe Oleghe Facility:[facility] Start: 02-14-2024 End: 02-14-[address] Edson Quinn MD -[place] [facility] Work Phone: Start: 02-03-2024 ambulatory Efewongbe Oleghe Facili ty:[facility] Start: 01-12-2024 End: 01-12-2024 ambulatory Efewongbe Oleghe Facility:[facility] Start: 01-04-2024 ambulatory Efewongbe Oleghe Facili ty:[facility] Start: 12-28-2023 End: 12-28-2023 ambulatory Efewongbe Oleghe Facility:[facility] Start: 12-07-2023 End: 12-07-2023 ambulatory Efewongbe Oleghe Facility:[facility] Start: 11-15-2023 End: 11-15-2023 ambulatory Efewongbe Oleghe Facility:[facility] Start: 04-06-2023 End: 04-06-[address] Nicolas Cardenas Work Phone: [facility] Work Phone: Start: 04-06-2023 End: 04-06-[address] Nicolas Cardenas Work Phone: [facility] Start: 02-02-2023 End: 02-02-[address] Nicolas Cardenas Work Phone: [facility] Work Phone: Start: 01-15-2023 End: 01-15-[address] Nicolas Cardenas Work Phone: [facility] Work Phone: Start: 12-30-2022 End: 12-30-[address] Nicolas Cardenas Work Phone: [facility] Work Phone: Start: 12-30-2022 End: 12-30-[address] Nicolas Cardenas Work Phone: [facility] Start: 11-23-2022 End: 11-23-[address] Nicolas Cardenas Work Phone: [facility] Work Phone: Start: 11-17-2022 End: 11-17-[address] Nicolas Cardenas Work Phone: [facility] Work Phone: Start: 10-06-2022 End: 10-06-[address] Nicolas Cardenas Work Phone: [facility] Work Phone: Start: 09-29-2022 End: 09-29-[address] Nicolas Cardenas Work Phone: [facility] Start: 09-23-2022 End: 09-23-[address] Nicolas Cardenas Work Phone: [facility] Work Phone: Start: 06-29-2022 End: 06-29-[address] Nicolas Cardenas Work Phone: [facility] Work Phone: Start: 06-29-2022 End: 06-29-[address] Nicolas Cardenas Work Phone: [facility] Start: 06-23-2022 End: 06-23-[address] Nicolas Cardenas Work Phone: [facility] Start: 06-05-2022 ambulatory Yoli Reardon [employer] Comment on above: Population Health Na vigation Outreach ([facility] Gaps) Start: 05-18-2022 End: 05-18-[address] Nicolas Cardenas Work Phone: [facility] Start: 04-14-2022 End: 04-14-[address] Nicolas Cardenas Work Phone: [facility] Start: 04-01-2022 End: 04-01-[address] Nicolas Cardenas Work Phone: [facility] Work Phone: Start: 04-01-2022 End: 04-01-[address] Nicolas Cardenas Work Phone: [facility] Start: 03-16-2022 End: 03-16-[address] Nicolas Cardenas Work Phone: [facility] Start: 02-24-2022 End: 02-24-[address] Nicolas Cardenas Work Phone: [facility] Start: 01-07-2022 End: 01-07-[address] Nicolas Cardenas Work Phone: [facility] Start: 01-05-2022 End: 01-05-[address] Nicolas Cardenas Work Phone: [facility] Start: 12-24-2021 End: 12-24-[address] Nicolas Cardenas Work Phone: [facility] Work Phone: Start: 12-24-2021 End: 12-24-[address] Nicolas Cardenas Work Phone: [facility] Start: 12-24-[address] Nicolas Cardenas Work Phone: [facility] Start: 12-15-2021 End: 12-15-[address] Nicolas Cardenas Work Phone: [facility] Start: 12-10-2021 End: 12-10-[address] Nicolas Cardenas Work Phone: [facility] Work Phone: Start: 12-10-2021 End: 12-10-[address] Nicolas Cardenas Work Phone: [facility] Start: 12-10-[address] Nicolas Cardenas Work Phone: [facility] Start: 12-09-2021 Telephone encounter Nicolas gutierrez MD Work Phone: [facility] [place] Comment on above: form dropping off Start: 11-26-2021 End: 11-26-[address] Nicolas Cardenas Work Phone: [facility] Work Phone: Start: 11-26-2021 End: 11-26-[address] Nicolas Cardenas Work Phone: [facility] [place] Start: 11-12-[address] Nicolas Cardenas Work Phone: [facility] Start: 10-29-[address] Nicolas Cardenas Work Phone: [facility] Start: 10-23-2021 Telephone encounter Nicolas gutierrez MD Work Phone: [facility] [place] Comment on above: Patient Update Start: 10-22-2021 Non-patient / Non-visit Dr. Nicolas Cardenas Work Phone: [facility] Start: 10-21-2021 Non-patient / Non-visit Dr. Nicolas Cardenas Work Phone: [facility] Start: 10-20-2021 Non-patient / Non-visit Dr. Nicolas Cardenas Work Phone: [facility] Start: 10-20-2021 End: 10-22-2021 Evaluation and management of inpatient Dr. Nicolas Cardenas Work Phone: [facility] 3 Start: 10-20-2021 End: 10-22-[address] Nicolas Cardenas Work Phone: [facility] Work Phone: Start: 09-29-2021 End: 09-29-2021 ambulatory NICOLAS CARDENAS Facility:[facility] Start: 09-29-2021 End: 09-29-2021 Patient encounter procedure Nicolas Cardenas MD Work Phone: [facility] [place] Comment on above: Medicare annual well ness [...] Phone: Start: 07-14-2024 BLADDER SCAN Diana Linares [facility] PATTERN MOLDER.WELFARE MANAGER Work Phone: Start: 07-14-2024 Urnls dip stick/tabl et rgnt auto w/o microscopy Diana Ochoa [facility] PATTERN MOLDER.WELFARE MANAGER Work Phone: Start: 05-30-2024 Urine culture [...] Dr. Nicolas Cardenas Work Phone: Start: 09-29-2021 [employer] COVI D-19 VACCINE, AGE 12+ YR (LANGE TOP) Nicolas Cardenas MD Work Phone: Urine culture Dr. Nicolas Farley Work Phone: Viral antigen assay Dr. Filiberto Cardenas Work Phone: Plan of Treatment Date Care Activity Detail Author Start: 11-02-2024 [facility] Start: 10-30-2024 Influenza vaccination Influenz a Vaccine (Season Ended) [place] Start: 10-29-2024 [facility] Start: 10-27-2024 End: 10-27-2024 [facility] Start: 10-27-2024 Brain/Head without Contrast Brain/Head without Contrast [facility] Start: 10-27-2024 CT Unspecified body region WO contrast [facility] Start: 09-25-2024 Microbial culture, routine Wound Cul ture [facility] Start: 09-25-2024 [facility] Start: 04-22-2024 DIABETES SCREEN DIABETES SCREEN [facility] Start: 04-22-2024 Diabetes Screening Diabetes Screenin g [place] Start: 03-01-2024 Advance Directive Discussion Advance Directive Discussion [place] Start: 10-31-2023 Covid-19 Vaccine ( season) Covid-19 Vaccine ( season) [place] Start: 10-30-2022 Influenza vaccination INFLUENZ A (Season Ended) [place] Start: 05-12-2022 SHINGRIX VACCINE (2 of 3) DUMAS GRIX VACCINE (2 of 3) [place] Comment on above: Postponed from 07/18 (Declined at this time) Start: 03-01-2022 ADVANCE DIRECTIVE DISCUSSION ADVANCE DIRECTIVE DISCUSSION [place] Start: 11-24-2021 COVID-19 VACCINE (5 - Booster for Pfizer series) COVID-19 VACCINE (5 - Booster for Pfizer series) [place] Start: 10-30-2021 Influenza vaccination INFLUENZA (#1) [place] Start: 10-22-2021 Patient discharge [facility] Work Phone: Start: 10-21-2021 Following clinical p athway protocol [facility] Work Phone: Start: 10-21-2021 Assessment of risk o f venous thromboembolism [facility] Work Phone: Start: 10-21-2021 Insertion of cathete r into peripheral vein [facility] Work Phone: Start: 10-21-2021 Oxygen therapy [facility] Work Phone: Start: 10-21-2021 Providing care accor ding to standard [facility] Work Phone: Start: 10-21-2021 Provision of activit y privileges [facility] Work Phone: Start: 10-21-2021 Referral to occupati onal therapist [facility] Work Phone: Start: 10-21-2021 Referral to service [facility] Work Phone: Start: 10-21-2021 [facility] Work Phone: Start: 10-21-[address] [facility] Work Phone: Start: 10-21-2021 CT angiography of he ad and neck CTA Head AND Neck W/ Contrast [facility] Work Phone: Start: 10-21-2021 CTA Head vessels and Neck vessels W contrast IV [facility] Work Phone: Start: 10-20-2021 [facility] Work Phone: Start: 10-20-2021 Admission procedure [facility] Work Phone: Start: 09-11-2021 COVID-19 VACCINE (4 - Booster for Pfizer series) COVID-19 VACCINE (4 - Booster for Pfizer series) [place] Start: 08-23-2021 Urine microalbumin profile [place] Comment on above: Postponed from 07/15 (Declined at this time) Start: 2014 RSV Vaccine (1 - 1-d ose 75+ series) RSV Vaccine (1 - 1-dose 75+ series) [place] Start: 07-18-2013 SHINGRIX VACCINE (2 of 3) DUMAS GRIX VACCINE (2 of 3) [place] Start: 07-15-2010 Urine microalbumin profile [place] Anion gap in Serum o r Plasma [facility] BUN/Creatinine ratio [facility] Calcium [Mass/volume ] in Serum or Plasma [facility] Carbon dioxide, tota l [Moles/volume] in Central venous blood [facility] Creatinine [Mass/vol ume] in Serum or Plasma [facility] CYTOLOGY NON-ENCEPHALOGRAPHER CYTOLOGY NON-GY N Lab Routine Gross hematuria Ordered: 07/14/[address] [facility] Work Phone: Comment on above: Ordered: 07/14/2024 Erythrocyte mean corpuscular volume determination [facility] Glucose [Mass/volume ] in Serum or Plasma [facility] Hematocrit [Volume Fraction] of Blood [facility] Hemoglobin [Mass/vol ume] in Blood [facility] Leukocytes [#/volume ] in Blood [facility] Mean corpuscular hemoglobin concentration determination [facility] Mean corpuscular hemoglobin determination [facility] Measurement of renal function [facility] Neutrophil count [facility] Neutrophil percent differential count [facility] Patient Education [facility] Work Phone: Patient referral [facility] Work Phone: Platelets [#/volume] in Blood [facility] Potassium measurement [facility] Red blood cell count [facility] Red cell distributio n width determination [facility] Serum chloride measurement [facility] Sodium measurement [facility] Urea nitrogen [Mass/volume] in Serum or Plasma [facility] Immunizations Immunization Date Immunization Notes Care Provider [facility] 09-29-2021 COVID-19 vaccine, ag e 12+ yr ([employer] [facility]) Nicolas Cardenas MD Work Phone: [place] Work Phone: 05-12-2021 COVID-19 vaccine, ag e 12+ yr ([employer] [facility]) Nicolas Cardenas MD Work Phone: [place] 03-31-2021 influenza, high-dose , quadrivalent vaccine (FLUZONE HIGH DOSE QUADRIVALENT) Nicolas Cardenas MD Work Phone: [place] Work Phone: 03-31-2021 influenza virus vaccine, unspecified formulation Diana Arango APRN.CNP Work Phone: [place] 06-17-2020 COVID-19 vaccine, ag e 12+ yr (PFIZER-BIONTECH - PURPLE TOP) Nicolas Cardenas MD Work Phone: [place] Work Phone: 05-27-2020 COVID-19 vaccine, ag e 12+ yr (PFIZER-BIONTECH - PURPLE TOP) Nicolas Cardenas MD Work Phone: [place] Work Phone: 04-22-2020 influenza, high-dose , quadrivalent vaccine (FLUZONE HIGH DOSE QUADRIVALENT) Nicolas Cardenas MD Work Phone: [place] Work Phone: 01-19-2019 influenza, high dose seasonal, preservative-free Nicolas Cardenas MD Work Phone: [place] 02-03-2018 influenza, high dose seasonal, preservative-free Nicolas Cardenas MD Work Phone: [place] 01-18-2017 influenza, high dose seasonal, preservative-free Nicolas Cardenas MD Work Phone: [place] 12-27-2015 influenza, high dose seasonal, preservative-free Nicolas Cardenas MD Work Phone: [place] 12-26-2014 influenza, high dose seasonal, preservative-free Nicolas Cardenas MD Work Phone: [place] 06-26-2014 pneumococcal conjuga te vaccine, 13 valent Nicolas Cardenas MD Work Phone: [place] 12-28-2013 influenza, seasonal, injectable Nicolas Cardenas MD Work Phone: [place] 05-23-2013 zoster vaccine, live Nicolas Cardenas MD Work Phone: [place] 07-14-2010 tetanus and diphther ia toxoids, adsorbed, preservative free, for adult use (2 Lf of tetanus toxoid and 2 Lf of diphtheria toxoid) Nicolas Cardenas MD Work Phone: [place] Work Phone: 01-13-2006 pneumococcal polysaccharide vaccine, 23 valent Nicolas Cardenas MD Work Phone: [place] Payers Date Payer Category Payer Medicaid [id number] 2023 Self-pay [id number] 2013 Private Health Insurance [facility] AARP SUPPLEMENT [id number] 2013-Present [phone] [address] [place] [address] Indemnity [id number] 2013 Private Health Insurance [id number] 2013 Unknown [id number] 2004 Medicare MEDICARE MEDICAR E A AND B [id number] 2004-Present [phone] [address] [address] [place] [address] Medicare [id number] 2004 Medicare [id number] 2004 Medicare [id number] Private Health Insurance [facility] [id number] Unknown [id number] [id number]. 462 Unknown [id number] 2.16.840.1.595837.3.579.2. 462 Unknown [id number] 2.16.840.1.904901.3.579.2. 462 Unknown [id number] 2.16.840.1.770918.3.579.2. 462 Unknown [id number] 2.16.840.1.660600.3.579.2. 462 Unknown [id number] 2.16.840.1.071392.3.579.2. 462 Unknown [id number] 2.16.840.1.448271.3.579.2. 462 Unknown [id number] 2.16.840.1.581973.3.579.2. 462 Unknown [id number] 2.16.840.1.967007.3.579.2. 462 Unknown [id number] 2.16.840.1.557669.3.579.2. 462 Unknown [id number] 2.16840.1.355894.3.579.2. 462 Unknown [id number] 2.16840.1.872944.3.579.2. 462 Unknown [id number] 2.16840.1.122198.3.579.2. 462 Unknown [id number] 2.16840.1.695232.3.579.2. 462 Unknown [id number] 2.16.840.1.493138.3.579.2. 462 Unknown [id number] 2.16840.1.807557.3.579.2. 462 Unknown [id number] 2.16.840.1.508739.3.579.2. 462 Unknown [id number] 2.16.840.1.127119.3.579.2. 462 Unknown [id number] 2.16.840.1.275747.3.579.2. 462 Unknown [id number] 2.16.840.1.435576.3.579.2. 462 Unknown [id number] 2.16.840.1.724774.3.579.2. 462 Unknown [id number] 2.16.840.1.542416.3.579.2. 462 Unknown [id number] 2.16.840.1.211649.3.579.2. 462 Unknown [id number] 2.16.840.1.892501.3.579.2. 462 Unknown [id number] 2.16.840.1.071335.3.579.2. 462 Unknown [id number] 2.16.840.1.136897.3.579.2. 462 Unknown [id number] 2.16.840.1.132420.3.579.2. 462 Unknown [id number] 2.16840.1.456504.3.579.2. 462 Unknown [id number] 2.16.840.1.038349.3.579.2. 462 Unknown [id number] 2.840.1.612330.3.579.2. 462 Unknown [id number] 2.16840.1.615357.3.579.2. 462 Unknown [id number] 2.16.840.1.390370.3.579.2. 462 Unknown [id number] 2.16.840.1.023193.3.579.2. 462 Unknown [id number] 2.16840.1.653502.3.579.2. 462 Unknown [id number] 2.16840.1.398827.3.579.2. 462 Unknown [id number] 2.16.840.1.341262.3.579.2. 462 Unknown [id number] 2.16.840.1.538677.3.579.2. 462 Unknown [id number] 2.16.840.1.649132.3.579.2. 462 Unknown [id number] 2.16.840.1.310534.3.579.2. 462 Unknown [id number] 2.16840.1.110546.3.579.2. 462 Unknown [id number] 2.16.840.1.400927.3.579.2. 462 Unknown [id number] 2.16.840.1.957124.3.579.2. 462 Unknown [id number] 2.16.840.1.844428.3.579.2. 462 Unknown [id number] 2.16.840.1.390253.3.579.2. 462 Unknown [id number] 2.16.840.1.224897.3.579.2. 462 Unknown [id number] 2.16.840.1.921963.3.579.2. 462 Unknown [id number] 2.16.840.1.050580.3.579.2. 462 Unknown [id number] 2.16.840.1.750043.3.579.2. 462 Unknown [id number] 2.16.840.1.979042.3.579.2. 462 Unknown [id number] 2.16.840.1.515303.3.579.2. 462 Unknown [id number] 2.16.840.1.109477.3.579.2. 462 Unknown [id number] 2.16.840.1.251083.3.579.2. 462 Unknown [id number] 2.16840.1.876755.3.579.2. 462 Unknown [id number] 2.16840.1.389448.3.579.2. 462 Social History Date Type Detail Facility Start: 04-22-2012 End: 11-02-2024 Tobacco smoking status NHIS Ex-smoker [facility] Start: 03-01-1949 End: 03-01-1959 History of tobacco use Current smoker [facility] Start: 03-01-1949 End: 03-01-1959 History of tobacco use Cigarette Smoker [facility] Start: 05-12-2021 End: 07-14-2024 Alcohol intake Current non-drinker of alcohol (finding) [facility] Start: 1940 Sex Assigned At Not on file [facility] Start: 09-19-2021 End: 09-29-2021 Exposure to SARS-CoV-2 (event) Not sure [facility] Work Phone: Start: 10-21-2021 End: 12-02-2022 Tobacco smoking status NHIS Unknown if ever smoked [facility] Start: 1940 Sex Assigned At Male W [facility] Start: 04-22-2012 End: 07-14-2024 Cigarettes smoked current (pack per day) - Reported 1 [facility] Start: 04-22-2012 Tobacco use and exposure Smokeless tobacco non-user [facility] Work Phone: Start: 06-05-2024 End: 06-21-2024 Sex Male (finding) [facility] Start: 02-03-2018 End: 07-14-2024 Tobacco use panel [facility] Adult Depression Screening Assessment 0 [facility] Goals Date Patient Goal Desired Activity /State Functional Status Date Assessment Result Facility 10-22-2021 Functional status Bedrest [facility] Work Phone: 06-26-2014 Are you deaf, or do you have serious difficulty hearing No 06/26/2014 10:08 AM FREDDYT Anjelica Perez Cma No [facility] 06-26-2014 Are you blind, or do you have serious difficulty seeing, even when wearing glasses No 06/26/2014 10:08 AM Anjelica Esparza Cma [facility] 06-26-2014 Do you have serious difficulty walking or climbing stairs No 06/26/2014 10:08 AM EDAnjelica Moore Cma [facility] 06-26-2014 Do you have difficul ty dressing or bathing No 06/26/2014 10:08 AM Anjelica Esparza Cma [facility] 06-26-2014 Because of a physica l, mental, or emotional condition, do you have difficulty doing errands alone such as visiting a physician's office or shopping No 06/26/2014 10:08 AM Anjelica Esparza Cma [facility] Mental Status Date Assessment Result Facility 10-22-2021 Cognitive function Voice/Name [facility] Work Phone: 10-20-2021 Cognitive function Appropriate;Cony starks [facility] Work Phone: 06-26-2014 Because of a physica l, mental, or emotional condition, do you have serious difficulty concentrating, remembering, or making decisions No 06/26/2014 10:08 AM EDT Chris MooreAnjelica No [facility] Clinical Notes 09-16-2018 to 11-02-2024 Telephone Encounter - Stefany Mcclure RN - 07/17/2024 11:17 AM EDTTelephone Encounter - Stefany Mcclure RN - 07/17/2024 11:17 AM EDTTelephone Encounter - Setfany Mcclure RN - 07/17/2024 11:14 AM EDT Note Date & Type Note Facility 11-02-2024 Discharge summary [facility] 11-02-2024 Radiology Diagnostic study note [facility] Imaging Services [address] [place], [place] [address] Brain/Head without Contrast MR#: [id number] Acct: [id number] Name: KEL IDLLARD Rep #: [id number] : 1940 M 84 From: Viola Allan MD PCP: Dr. David Miramontes MD Status: R EG ER Study:Brain/Head without Contrast Date of Exa m: 11/02/24 Exam# [id number] Ordering Dr: Bibi Leigh MD PROCEDURE: BRAIN/HEAD [...] an acute traumatic brain abnormality. [facility] CC: Dr. David Miramontes MD; Dr. Abhinav Leigh MD ~ Retreader: Signed [facility] 11-02-2024 Radiology Diagnostic study note [facility] Imaging Services [address] [place] [address] Spine Cervical without Contras MR#: [id number] Acct: [id number] Name: KEL DILLARD Rep #: [id number] : 1940 84 From: Viola Allan MD PCP: Dr. David Miramontes MD Status: R ER Study:Spine Cervical without Contras Date of Exam: 11/02/24 Exam# [id number] Ordering Dr: Bibi Leigh MD PROCEDURE: SPINE [...] of an acute traumatic abnormality. Reading Location: [place] [address] CC: Dr. David Miramontes MD; Dr. Abhinav Leigh MD ~ Retreader: Signed [facility] 10-29-2024 Discharge summary [facility] 10-29-2024 Radiology Diagnostic study note [facility] Imaging Services [address] [place] [address] (702) Wrist min 3 Views MR#: [id number] Acct: [id number] Name: KEL DILLARD Rep #: [id number] : 1940 M 84 From: Brodie Martinez MD PCP: Dr. David Miramontes MD Status: R EG ER Study:Wrist min 3 Views Date of Exam: Exam# [id number] Ordering Dr: Bibi Leigh MD PROCEDURE: WRIST [...] acute osseous abnormalities. Mild arthritis. Reading Location: [facility] CC: Dr. David Miramontes MD; Dr. Abhinav Leigh MD ~ Retreader: Signed [facility] 10-29-2024 Radiology Diagnostic study note [facility] Imaging Services [address] [place] [address] (216) Hand Min 3 Views MR#: [id number] Acct: [id number] Name: KEL DILLARD Rep #: [id number] : 1940 M 84 From: Brodie [place] MD PCP: Dr. David Miramontes MD Status: R EG ER Study:Hand Min 3 Views Date of Exam: Exam# [id number] Ordering Dr: Bibi Leigh MD PROCEDURE: HAND MIN 3 VIEWS 10/29/2024 REASON FOR EXAM: FALL TECHNIQUE: Procedure Code: ERENDIRA Modality: DX Procedure: HAND MIN 3 VIEWS Laterality: Left COMPARISON: None. FINDINGS: Bones: No acute bony abnormalities. Joints: Unremarkable. Soft tissues: No soft tissue abnormalities. RAD/Hand Min 3 Views IMPRESSION: No acute osseous abnormalities. Reading Location: [facility] CC: Dr. David Miramontes MD; Dr. Abhinav Leigh MD ~ Retreader: Signed [facility] 10-27-2024 Radiology Diagnostic study note [facility] Imaging Services [address] [place] [id number] Brain/Head without Contrast MR#: [id number] Acct: [id number] Name: KEL DILLARD Rep #: [id number] : 1940 M 84 From: Rust laurie Mariano MD PCP: Dr. David Miramontes MD Status: R EG ER Study:Brain/Head without Contrast Date of Exa m: 10/27/24 Exam# [id number] Ordering Dr: Ira Zarate PROCEDURE: CT BRAIN/HEAD [...] loss and chronic microangiopathic changes. Reading Location: [id number] CC: Dr. David Miramontes MD; ERWIN Phillip ~ Retreader: Signed [facility] 07-17-2024 Telephone encounter Note Spoke with patient's son and notified of information as per provider. He states that they are going to hold off on having tests listed below,. He will let us know if he needs anything or wants test done in the future. Verbalized understanding and has no further questions. Stefany Mcclure RN [facility] Work Phone: 07-17-2024 Miscellaneous Notes Spoke with patient's son and notified of information as per provider. He states that they are going to hold off on having tests listed below,. He will let us know if he needs anything or wants test done in the future. Verbalized understanding and has no further questions. Stefany Mcclure RN ----- Message from Diana Arango APRN.WELFARE MANAGER sent at 07/17/2024 11:12 AM EDT ----- Please notify patient/patient's son that patient's cytology came back negative for high-grade urothelial carcinoma. This is great news! Given his mentation and mobility -- we could hold off on CT/cysto if he wishes. documented in this encounter [facility] 07-17-2024 Telephone encounter Note ----- Message from Diana Arango APRN.CNP sent at 07/17/2024 11:12 AM EDT ----- Please notify patient/patient's son that patient's cytology came back negative for high-grade urothelial carcinoma. This is great news! Given his mentation and mobility -- we could hold off on CT/cysto if he wishes. [facility] 07-14-2024 History of Present illness Narrative Images from the original note were not included. [facility] NEW PATIENT UROLOGY VISIT 07/14/2024 [...] (no units) Date Value 08/12/2018 Negative Specific [place], [facility] (no units) Date Value 08/12/2018 1.018 [...] intervention based on that result. - CYTOLOGY NON-ENCEPHALOGRAPHER - Call son with results. Will make treatment plan decision from there. Follow-up as needed. Diana Arango APRN.HOLLIE documented in this encounter [facility] 07-14-2024 Note HNO ID: [id number] Author: DIANA ARANGO APRN.WELFARE MANAGER Service: ? Author Type: Nurse Practitioner Type: Progress Notes Filed: 07/14/2024 09:11 Note Text: [facility] UROL [facility] NEW PATIENT [...] use: Former Exposure to noxious chemicals: Paper Tang Song History of kidney stones: Denies Past urologic [...] [facility] 06-05-2022 Note HNO ID: [id number] Author: Yoli Garner Service: ? Author Type: [...] Yoli Garner June 05, 2022 1:58 PM [facility] 06-05-2022 Note Patient Outreach (JEAN CLAUDE TNPOLA) ---- KEL DILLARD ([id number]) 1940 M Date Time Provider Department 06/05/22 [...] Encounter Status:Closed by YOLI GARNER on 06/05/22 [facility] 06-05-2022 History of Present illness Narrative [...] 2022 1:58 PM documented in this encounter [facility] 12-11-2021 Miscellaneous Notes Forms pts son brought in have been sent to medical records. Pts son notified. He can pick them up there. Son (Jhonny) calls in and provider message reviewed. Son asking if form brought in can be picked back up in Medical Records. Please contact Jhonny at [phone]. Preethi Delgadillo RN I have not seen him since hospital stay and he is now under the [place] attending physician's care. It is more appropriate for the [place] attending physician to do another form. More statements need corrected/updated Form to pcp to review. Patient son Jhonny calling said PCP completed expert evaluation form on 09/29 for guardianship and flyer maker said question number 11 needs revised. Anant Barry said 2 weeks after form was done father had fall and was taken to [facility] then sent to [facility] for rehab. Now father is in memory care unit, his dementia is at 6 out of 7. Son is going to drop off new form to be competed, since father can not care for himself or do anything for himself. Please advise documented in this encounter [facility] 10-23-2021 Miscellaneous Notes Per [facility] discharge info pt was discharged to [facility] 10/22/21. documented in this encounter [facility] 09-29-2021 Note HNO ID: [id number] Author: Nicolas Cardenas MD Service: ? Author Type: Physician Type: Progress Notes Filed: 09/29/2021 6:08 PM Note Text: This note was created using [employer] la Mobiler[employer]. Subjective Kel Dillard is a 81 year old male. He was here with his son. He was home bound due to memory loss and cognitive deficits. He gets lost if he wandered outside. Son was here with form requesting guardianship. This was part of POA he was establishing. They were exploring [facility] placement in anticipation of need, but Kel [...] vaccine - ICD9: V04.89, ICD10: Z23 - [employer] COVID-19 VACCINE, AGE 12+ YR (LANGE TOP) 6. 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 Form completed. Patient and son indicated understanding and willingness to follow recommendations. Nicolas Cardenas MD [facility] 09-29-2021 Note HNO ID: [id number] Author: Nicolas Cardenas MD Service: ? Author [...] current specialists seen: Pulmonary- Dr. Valle Cardiology- [facility] Lip Reading Teacher- Barb End of Live Planning discussed including [...] and Tdap at pharmacy Nicolas Cardenas MD [facility] 09-29-2021 History of Present illness Narrative [...] POA he was establishing. They were exploring chcf placement in anticipation of need, but Kel [...] vaccine - ICD9: V04.89, ICD10: Z23 - [employer] COVID-19 VACCINE, AGE 12+ YR (LANGE [...] current specialists seen: Pulmonary- Dr. Valle Cardiology- [facility] Lip Reading Teacher- Barb End of Live Planning discussed including [...] Nicolas Cardenas MD documented in this encounter [facility] 07-15-2021 Miscellaneous Notes Yesenia, Admissions staff member at [facility] calling to state patient's son Jhonny has reached out to them to request patient possibly be admitted into their memory care unit due to cognition concerns. Yesenia is requesting notes from patient's last OV be faxed to them at [phone]. This nurse contacted son Jhonny to verify the request and he confirmed it was ok to share requested information. Information faxed as requested. Karen Matias RN documented in this encounter [facility] 09-16-2018 History of Past i llness Narrative [...] of this encounter (statuses as of 07/15/2021) [facility]07-19-2019 History of Past illness Narrative* Problem Noted [...] of this encounter (statuses as of 09/29/2021) [facility]-19-2019 History of Past illness Narrative* Problem Noted [...] of this encounter (statuses as of 10/23/2021) [facility]-19-2019 History of Past illness Narrative* Problem Noted [...] of this encounter (statuses as of 12/11/2021) [facility]-19-2019 History of Past illness Narrative* Problem Noted [...] of this encounter (statuses as of 06/05/2022) [facility] Author Abhinav Leigh [facility] Note Date/Time October 29, 2024 11 :[address] [place] [address] System Medical Records Department [address] [place] [address] Emergency Department Summary 10/29/24 MR#: [id number] Acct: [id number] Name: KEL DILLARD Rep #:[id number] : 1940 84 From: Abhinav Leigh [...] wrist and hand. 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 There is no significant tenderness [...] male fell [facility] ago at the [facility] was evaluated at that time for head [...] did speak to a nurse at the [facility]. No other complaints today has not been ill has not had a fever. Patient himself denies any complaints. Repeat exam is unchanged at 11:26 AM.. Patient will be discharged back to [facility]. we will make sure they [...] This is all from arthritis. Print Language: Yi Disposition Disposition: Home, Self Care What to do if you have Problems For any increased pain, shortness of breath, bleeding, nausea or vomiting, chestpain, or any unexpected problems, contact your Primary Care Provider. Call [facility] ([phone]) or report to the closest Emergency Room. Call 911 if necessary. 10/29/24 1126 <Electronically signed by Abhinav Leigh MD> Cosigner Signature (if applicable): CC: Dr. David Miramontes MD ~ Signed [facility] Work Phone: Discharge summary Author Abhinav Leigh [facility] Note Date/Time November 02, 2024 5:15am [facility] Medical Records Department [address] [place] [address] Emergency Department Summary 11/02/24 MR#: [id number] Acct: [id number] Name: GILMAKEL XAVIER Angel Rep #:[id number] : 1940 84 From: Abhinav Leigh [...] extended care facility. He is currently at [facility]. Tonight they found him in his room [...] Abdomen soft nontender. Movingall 4 extremities. Normal rose grading supervisor strength. Dorsi plantarflexion intact. He can flex [...] Follow-up with either his doctor or your biomedical service engineer to discuss if he should remain on anticoagulation due to his history of the falls you may want toconsider taking him off of the Eliquis. Print Language: Yi Disposition Disposition: Home, Self Care What to do if you have Problems For any increased pain, shortness of breath, bleeding, nausea or vomiting, chestpain, or any unexpected problems, contact your Primary Care Provider. Call [facility] ([phone]) or report to the closest Emergency Room. Call 911 if necessary. 11/02/24 0515 <Electronically signed by Abhinav Leigh MD> Cosigner Signature (if applicable): CC: Dr. 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 Ice and take Tylenol every 6 hours as needed.[facility] Work Phone: Hospital Discharge instructionsAdditional Instructions Follow-up with your doctor as needed. Ice to his wrist and hand There is no broken bone in his wrist or hand. This is all from arthritis.[facility] Work Phone: Hospital Discharge instructionsAdditional Instructions Tylenol for pain. CAT scans tonight of his head and neck were negative. Follow-up with either his doctor or your biomedical service engineer to discuss if he should remain on anticoagulation due to his history of the falls you may want to consider taking him off of the Eliquis.[facility] Work Phone: Reason for referral (narrative)No reason for referral information availableWThe [facility] Work Phone: Advance Directives No Advanced Directives Records FoundDocuments on File Type Date Recorded Patient Information Technology Director Expl anation Advance Directive(s) 04/29/2021 2:28 PM Advance Directive(s) 09/08/2016 1:42 PM Advance Directive(s) 08/31/2016 10:18 AM Advance Directive(s) 04/09/2016 12:30 PM Advance Directive(s) 04/06/2016 10:07 AM Advance Directive(s) 10/09/2011 11:10 AM Advance Directive Response Recorded Date/ Time Advance Directives No October 10:42am Living Will No October 20 2 8:26pm Power of Public Health No October 20 8:26pm Advance Directive Response Recorded Date/ Time Advance Directives No October 10:42am Living Will No October 21 1:16am Power of Public Health No October 21 1:16am Documents on File Type Date Recorded Patient Information Technology Director Expl anation Advance Directive(s) 04/29/2021 2:28 PM Advance Directive(s) 10/09/2011 11:10 AM Advance Directive Response Recorded Date/ Time Advance Directives No April 02, 2022 2:41pm Living Will No April 02 2:41pm Power of Public Health No April 02, 2022 2:41pm Advance Directive Response Recorded Date/ Time Advance Directives No April 02, 2022 3:41pm Living Will No April 02 3:41pm Power of Public Health No April 02, 2022 3:41pm Advance Directive Response Recorded Date/ Time Advance Directives No December 02, 2022 9:40am Living Will No December 02 9:40am Power of Public Health No December 02 9:40am Advance Directive Response [...] Do you have a Healthcare Power of Public Health? Yes October 27, 2024 8:39pm Advance Directive Response Recorded Date/ Time Advance Directives No September 15 1:51pm Do you have a Healthcare Power of Public Health? Yes October 27, 2024 8:39pm Do you have a Healthcare Power of Public Health? Yes October 29, 2024 9:57am Name of Medical Power of Public Health Jhonny Dillard October 29, 2024 9:57am Advance Directive Response Recorded Date/ Time Advance Directives No September 15 1:51pm Do you have a Healthcare Power of Public Health? Yes October 27, 2024 8:39pm Do you have a Healthcare Power of Public Health? No November 02, 2024 3:46am Do you have a Healthcare Power of Public Health? Yes October 29, 2024 9:57am Name of Medical Power of Public Health Jhonny Dillard October 29, 2024 9:57am Chief [...] DEBILITY FALL, DEBILITY LAB WORK LAB WORK JAIL LAB WORK MONTHLY EXAM Chief Complaint FALL, DEBILITY FALL, DEBILITY FALL, DEBILITY FALL, DEBILITY LAB WORK LAB WORK JAIL LAB WORK JAIL LABWORK MONTHLY EXAM Chief Complaint FALL, DEBILITY FALL, DEBILITY FALL, DEBILITY FALL, DEBILITY LAB WORK LAB WORK JAIL LAB WORK JAIL LABWORK MONTHLY EXAM JAIL LAB WORK Chief Complaint JAIL LAB WOR K MONTHLY EXAM JAIL LAB WORK MONTHLY EXAM MONTHLY EXAM JAIL LAB WORK Chief Complaint MONTHLY EXAM JAIL LAB WORK MONTHLY EXAM new problem MONTHLY EXAM JAIL LABWORK Chief Complaint MONTHLY EXAM JAIL LAB WORK MONTHLY EXAM ANNUAL EXAM MONTHLY EXAM JAIL LAB WORK Chief Complaint JAIL LAB WOR K NEW CONCERN MONTHLY EXAM LABWORK Chief Complaint Admit Date Pacer Check Remote February 14, 2024 12:11am MONTHLY EXAM February 15, 2024 9:13pm MONTHLY EXAM March 02, 2024 11 :09am NEW CONCERN March 13, 2024 1 :23pm JAIL LAB WORK April 04, 2024 5:00am JAIL LAB WORK April 07, 2024 4:00am JAIL LAB WORK April 07, 2024 10:45am MONTHLY EXAM April 11, 2024 12:58pm JAIL LAB WORK April 13 5:00am LABWORK April [...] NEW CONCERN March 13, 2024 1 :23pm JAIL LAB WORK April 04, 2024 5:00am JAIL LAB WORK April 07, 2024 4:00am JAIL LAB WORK April 07, 2024 10:45am MONTHLY EXAM April 11, 2024 12:58pm JAIL LAB WORK April 13 5:00am LABWORK April [...] NEW CONCERN March 13, 2024 1 :23pm JAIL LAB WORK April 04, 2024 5:00am JAIL LAB WORK April 07, 2024 4:00am JAIL LAB WORK April 07, 2024 10:45am MONTHLY EXAM April 11, 2024 12:58pm JAIL LAB WORK April 13 5:00am LABWORK April [...] NEW CONCERN March 13, 2024 1 :23pm JAIL LAB WORK April 04, 2024 5:00am JAIL LAB WORK April 07, 2024 4:00am JAIL LAB WORK April 07, 2024 10:45am MONTHLY EXAM April 11, 2024 12:58pm JAIL LAB WORK April 13 5:00am LABWORK April [...] TOES PVD May 30, 2024 8:36 am JAIL LAB WORK June 05, 2024 4: 00am Chief Complaint Admit Date JAIL LAB WORK April 04, 2024 5:00am JAIL LAB WORK April 07, 2024 4:00am JAIL LAB WORK April 07, 2024 10:45am MONTHLY EXAM MD April 11, 2024 12:58pm JAIL LAB WORK April 13 5:00am LABWORK April [...] TOES PVD May 30, 2024 8:36 am JAIL LAB WORK June 05, 2024 4: 00am [...] TOES PVD May 30, 2024 8:36 am JAIL LAB WORK June 05, 2024 4: 00am LABWORK June 23, 2024 5:0 0am LABWORK July 21, 2024 5:00a m JAIL LAB WORK August 01, 2024 5:0 0am [...] TOES PVD May 30, 2024 8:36 am JAIL LAB WORK June 05, 2024 4: 00am LABWORK June 23, 2024 5:0 0am MONTHLY EXAM July 18, 2024 3:15p m LABWORK July 21, 2024 5:00a m JAIL LAB WORK August 01, 2024 5:0 0am [...] TOES PVD May 30, 2024 8:36 am JAIL LAB WORK June 05, 2024 4: 00am LABWORK June 23, 2024 5:0 0am MONTHLY EXAM July 18, 2024 3:15p m NEW PROBLEM/CONCERN July 20, 2024 3:45p m LABWORK July 21, 2024 5:00a m JAIL LAB WORK August 01, 2024 5:0 0am [...] TOES PVD May 30, 2024 8:36 am JAIL LAB WORK June 05, 2024 4: 00am LABWORK June 23, 2024 5:0 0am MONTHLY EXAM July 18, 2024 3:15p m NEW PROBLEM/CONCERN July 20, 2024 3:45p m LABWORK July 21, 2024 5:00a m JAIL LAB WORK August 01, 2024 5:0 0am [...] TOES PVD May 30, 2024 8:36 am JAIL LAB WORK June 05, 2024 4: 00am LABWORK June 23, 2024 5:0 0am MONTHLY EXAM July 18, 2024 3:15p m NEW PROBLEM/CONCERN July 20, 2024 3:45p m LABWORK July 21, 2024 5:00a m JAIL LAB WORK August 01, 2024 5:0 0am [...] TOES PVD May 30, 2024 8:36 am JAIL LAB WORK June 05, 2024 4: 00am LABWORK June 23, 2024 5:0 0am MONTHLY EXAM July 18, 2024 3:15p m NEW PROBLEM/CONCERN July 20, 2024 3:45p m LABWORK July 21, 2024 5:00a m JAIL LAB WORK August 01, 2024 5:0 0am [...] TOES PVD May 30, 2024 8:36 am JAIL LAB WORK June 05, 2024 4: 00am LABWORK June 23, 2024 5:0 0am NEW CONCERN July 04, 2024 4:35pm MONTHLY EXAM July 18, 2024 3:15p m NEW PROBLEM/CONCERN July 20, 2024 3:45p m LABWORK July 21, 2024 5:00a m JAIL LAB WORK August 01, 2024 5:0 0am LABWORK August 02, 2024 5:00a m MONTHLY EXAM August 15, 2024 7:30 pm Pacer Check Remote August 21, 2024 4:29 am NEW CONCERN August 21, 2024 3:15 pm JAIL LAB WORK August 22, 2024 5: 00am NEW CONCERN August 25, 2024 2:15 pm LABWORK August 31, 2024 5:00a m [facility]AIL LAB WORK September 07, 2024 5: 00am Chief Complaint Admit Date LABWORK June 23, 2024 5:0 0am NEW CONCERN July 04, 2024 4:35pm MONTHLY EXAM July 18, 2024 3:15p m NEW PROBLEM/CONCERN July 20, 2024 3:45p m LABWORK July 21, 2024 5:00a m JAIL LAB WORK August 01, 2024 5:0 0am LABWORK August 02, 2024 5:00a m MONTHLY EXAM August 15, 2024 7:30 pm Pacer Check Remote August 21, 2024 4:29 am NEW CONCERN August 21, 2024 3:15 pm JAIL LAB WORK August 22, 2024 5: 00am NEW CONCERN August 25, 2024 2:15 pm Monthly Exam August 29, 2024 4:04p m LABWORK August 31, 2024 5:00a m JAIL LAB WORK September 07, 2024 5: 00am Chief Complaint Admit Date LABWORK June 23, 2024 5:0 0am NEW CONCERN July 04, 2024 4:35pm MONTHLY EXAM July 18, 2024 3:15p m NEW PROBLEM/CONCERN July 20, 2024 3:45p m LABWORK July 21, 2024 5:00a m JAIL LAB WORK August 01, 2024 5:0 0am LABWORK August 02, 2024 5:00a m MONTHLY EXAM August 15, 2024 7:30 pm Pacer Check Remote August 21, 2024 4:29 am NEW CONCERN August 21, 2024 3:15 pm JAIL LAB WORK August 22, 2024 5: 00am NEW CONCERN August 25, 2024 2:15 pm Monthly Exam August 29, 2024 4:04p m LABWORK August 31, 2024 5:00a m JAIL LAB WORK September 07, 2024 5: 00am New Concern September 19, 2024 7:48 am Chief Complaint Admit Date LABWORK June 23, 2024 5:0 0am NEW CONCERN July 04, 2024 4:35pm MONTHLY EXAM July 18, 2024 3:15p m NEW PROBLEM/CONCERN July 20, 2024 3:45p m LABWORK July 21, 2024 5:00a m JAIL LAB WORK August 01, 2024 5:0 0am LABWORK August 02, 2024 5:00a m MONTHLY EXAM August 15, 2024 7:30 pm Pacer Check Remote August 21, 2024 4:29 am NEW CONCERN August 21, 2024 3:15 pm JAIL LAB WORK August 22, 2024 5: 00am NEW CONCERN August 25, 2024 2:15 pm Monthly Exam August 29, 2024 4:04p m LABWORK August 31, 2024 5:00a m JAIL LAB WORK September 07, 2024 5: 00am New Concern September 19, 2024 7:48 am New Concern September 25, 2024 4:26 pm Chief Complaint Admit Date NEW CONCERN July 04, 2024 4:35pm MONTHLY EXAM July 18, 2024 3:15p m NEW PROBLEM/CONCERN July 20, 2024 3:45p m LABWORK July 21, 2024 5:00a m JAIL LAB WORK August 01, 2024 5:0 0am LABWORK August 02, 2024 5:00a m MONTHLY EXAM August 15, 2024 7:30 pm Pacer Check Remote August 21, 2024 4:29 am NEW CONCERN August 21, 2024 3:15 pm JAIL LAB WORK August 22, 2024 5: 00am NEW CONCERN August 25, 2024 2:15 pm Monthly Exam August 29, 2024 4:04p m LABWORK August 31, 2024 5:00a m JAIL LAB WORK September 07, 2024 5: 00am New Concern September 19, 2024 7:48 am JAIL LAB WORK September 25, 2024 12 :00pm New Concern September 25, 2024 4:26 pm MONTHLY EXAM September 29, 2024 11: 44am Chief Complaint Admit Date NEW CONCERN July 04, 2024 4:35pm MONTHLY EXAM July 18, 2024 3:15p m NEW PROBLEM/CONCERN July 20, 2024 3:45p m LABWORK July 21, 2024 5:00a m JAIL LAB WORK August 01, 2024 5:0 0am LABWORK August 02, 2024 5:00a m MONTHLY EXAM August 15, 2024 7:30 pm Pacer Check Remote August 21, 2024 4:29 am NEW CONCERN August 21, 2024 3:15 pm JAIL LAB WORK August 22, 2024 5: 00am NEW CONCERN August 25, 2024 2:15 pm Monthly Exam August 29, 2024 4:04p m LABWORK August 31, 2024 5:00a m JAIL LAB WORK September 07, 2024 5: 00am New Concern September 19, 2024 7:48 am JAIL LAB WORK September 25, 2024 12 :00pm New Concern September 25, 2024 4:26 pm MONTHLY EXAM September 29, 2024 11: 44am fall, head injury, on thinners October [id number] 8:34pm Chief Complaint Admit Date NEW CONCERN July 04, 2024 4:35pm MONTHLY EXAM July 18, 2024 3:15p m NEW PROBLEM/CONCERN July 20, 2024 3:45p m LABWORK July 21, 2024 5:00a m JAIL LAB WORK August 01, 2024 5:0 0am LABWORK August 02, 2024 5:00a m MONTHLY EXAM August 15, 2024 7:30 pm Pacer Check Remote August 21, 2024 4:29 am NEW CONCERN August 21, 2024 3:15 pm JAIL LAB WORK August 22, 2024 5: 00am NEW CONCERN August 25, 2024 2:15 pm Monthly Exam August 29, 2024 4:04p m LABWORK August 31, 2024 5:00a m JAIL LAB WORK September 07, 2024 5: 00am New Concern September 19, 2024 7:48 am JAIL LAB WORK September 25, 2024 12 :00pm New Concern September 25, 2024 4:26 pm MONTHLY EXAM September 29, 2024 11: 44am fall, head injury, on thinners October [id number] 8:34pm wrist injury October 29, 2024 9: 51am Chief Complaint Admit Date MONTHLY EXAM July 18, 2024 3:15p m NEW PROBLEM/CONCERN July 20, 2024 3:45p m LABWORK July 21, 2024 5:00a m JAIL LAB WORK August 01, 2024 5:0 0am LABWORK August 02, 2024 5:00a m MONTHLY EXAM August 15, 2024 7:30 pm Pacer Check Remote August 21, 2024 4:29 am NEW CONCERN August 21, 2024 3:15 pm JAIL LAB WORK August 22, 2024 5: 00am NEW CONCERN August 25, 2024 2:15 pm Monthly Exam August 29, 2024 4:04p m LABWORK August 31, 2024 5:00a m JAIL LAB WORK September 07, 2024 5: 00am New Concern September 19, 2024 7:48 am JAIL LAB WORK September 25, 2024 12 :00pm [...] or prosecute any alcohol or drug abuse patient.[place] the event this information is protected by the Federal Confidentiality of Alcohol and Drug Abuse Patient Records regulations: The Federal rules restrict any use of the information to criminally investigate or prosecute any alcohol or drug abuse patient.[place] the event this information is protected by the Federal Confidentiality of Alcohol and Drug Abuse Patient Records regulations: The Federal rules restrict any use of the information to criminally investigate or prosecute any alcohol or drug abuse patient.[place] the event this information is protected by the Federal Confidentiality of Alcohol and Drug Abuse Patient Records regulations: The Federal rules restrict any use of the information to criminally investigate or prosecute any alcohol or drug abuse patient.[place] the event this information is protected by the Federal Confidentiality of Alcohol and Drug Abuse Patient Records regulations: The Federal rules restrict any use of the information to criminally investigate or prosecute any alcohol or drug abuse patient.[place]In the event this information is protected by the Federal Confidentiality of Alcohol and Drug Abuse Patient Records regulations: The Federal rules restrict any use of the information to criminally investigate or prosecute any alcohol or drug abuse patient.[place]In the event this information is protected by the Federal Confidentiality of Alcohol and Drug Abuse Patient Records regulations: The Federal rules restrict any use of the information to criminally investigate or prosecute any alcohol or drug abuse patient.[place] Reason for Visit (unrecogniz ed section and [...] 2024 End: April 19, 2024 Marimar Zimmer COMMUNITY LIFE DIRECTOR, COMMUNITY LIFE DIRECTOR-C Attending Provider Active Start: April 19, 2024 End: April 19, 2024 Team Status: Inactive Member Role Status Dates Dr. David Miramontes MD Primary Care Provider Active Start: May 01, 2024 End: May 01, 2024 Marimar Zimmer COMMUNITY LIFE DIRECTOR, COMMUNITY LIFE DIRECTOR-C Attending Provider Active Start: May 01, 2024 End: May 01, 2024 Team Status: Inactive Member Role Status Dates Dr. David Miramontes MD Primary Care Provider Active Start: May 11, 2024 End: May 11, 2024 Marimar Zimmer COMMUNITY LIFE DIRECTOR, COMMUNITY LIFE DIRECTOR-C Attending Provider Active Start: May 11, 2024 [...] 2024 End: May 18, 2024 Marimar Zimmer COMMUNITY LIFE DIRECTOR, COMMUNITY LIFE DIRECTOR-C Attending Provider Active Start: May 18, 2024 [...] June 23, 2024 End: June 23, 2024 [employer] Executive Director Relationship Specialty Start Date End Date Nicolas Cardenas MD [address] [place], [place] [id number] PCP - General 02/12/03 [employer] Executive Director Relationship Specialty Start Date End Date Nicolas Cardenas MD [address] [place], [place] [id number] PCP - General 02/12/03 [employer] Executive Director Relationship Specialty Start Date End Date Nicolas Cardenas MD [address] [facility] [place] [address] PCP - General 02/12/03 [employer] Executive Director Relationship Specialty Start Date End Date Nicolas Cardenas MD [address] [place] [address] PCP - General 02/12/03 Team Status: Active Member Role Status Dates Dr. Nicolas Cardenas MD Family Provider Active Dr. Nicolas Cardenas MD Primary Care Provider Active Team Status: Inactive Member Role Status Dates Dr. Nicolas Cardenas MD Primary Care Provider Active Marimar Zimmer COMMUNITY LIFE DIRECTOR, COMMUNITY LIFE DIRECTOR-C Attending Provider Active Team Status: Inactive Member [...] 2024 End: March 13, 2024 Marimar Zimmer COMMUNITY LIFE DIRECTOR, COMMUNITY LIFE DIRECTOR-C Attending Provider Active Start: March 13, 2024 [...] Inactive Member Role Status Dates Dr. David Miraomntes MD Primary Care Provider Active Start: May [...] 2024 End: May 01, 2024 Marimar Zimmer COMMUNITY LIFE DIRECTOR, COMMUNITY LIFE DIRECTOR-C Attending Provider Active Start: May 01, 2024 End: May 01, 2024 Team Status: Inactive Member Role/Relationship Status Dates Dr. David Miramontes MD Primary Care Provider Active Start: May 11, 2024 End: May 11, 2024 Marimar Zimmer COMMUNITY LIFE DIRECTOR, COMMUNITY LIFE DIRECTOR-C Attending Provider Active Start: May 11, 2024 [...] 2024 End: May 18, 2024 Marimar Zimmer COMMUNITY LIFE DIRECTOR, COMMUNITY LIFE DIRECTOR-C Attending Provider Active Start: May 18, 2024 [...] 2024 End: May 30, 2024 Marimar Zimmer COMMUNITY LIFE DIRECTOR, COMMUNITY LIFE DIRECTOR-C Attending Provider Active Start: May 30, 2024 [...] 2024 End: May 18, 2024 Marimar Zimmer COMMUNITY LIFE DIRECTOR, COMMUNITY LIFE DIRECTOR-C Attending Provider Active Start: May 18, 2024 [...] 2024 End: May 30, 2024 Marimar Zimmer COMMUNITY LIFE DIRECTOR, COMMUNITY LIFE DIRECTOR-C Attending Provider Active Start: May 30, 2024 [...] Inactive Member Role/Relationship Status Dates Marimar Zimmer COMMUNITY LIFE DIRECTOR, COMMUNITY LIFE DIRECTOR-C Attending Provider Active Start: July 20, 2024 [...] 2024 End: August 15, 2024 Marimar Zimmer COMMUNITY LIFE DIRECTOR, COMMUNITY LIFE DIRECTOR-C Attending Provider Active Start: August 15, 2024 [...] 2024 End: August 21, 2024 Marimar Zimmer COMMUNITY LIFE DIRECTOR, COMMUNITY LIFE DIRECTOR-C Attending Provider Active Start: August 21, 2024 [...] 2024 End: August 25, 2024 Marimar Zimmer COMMUNITY LIFE DIRECTOR, COMMUNITY LIFE DIRECTOR-C Attending Provider Active Start: August 25, 2024 [...] 2024 End: May 30, 2024 Marimar Zimmer COMMUNITY LIFE DIRECTOR, COMMUNITY LIFE DIRECTOR-C Attending Provider Active Start: May 30, 2024 [...] 2024 End: July 04, 2024 Marimar Zimmer COMMUNITY LIFE DIRECTOR, COMMUNITY LIFE DIRECTOR-C Attending Provider Active Start: July 04, 2024 End: July 04, 2024 Team Status: Inactive Member Role/Relationship Status Dates Dr. David Miramontes MD Primary Care Provider Active Start: July 18, 2024 End: July 18, 2024 Dr. David Miramontes MD Attending Provider Active Start: July 18, 2024 End: July 18, 2024 Team Status: Inactive Member Role/Relationship Status Dates Marimar Zimmer COMMUNITY LIFE DIRECTOR, COMMUNITY LIFE DIRECTOR-C Attending Provider Active Start: July 20, 2024 [...] 2024 End: August 15, 2024 Marimar Zimmer COMMUNITY LIFE DIRECTOR, COMMUNITY LIFE DIRECTOR-C Attending Provider Active Start: August 15, 2024 [...] 2024 End: August 21, 2024 Marimar Zimmer COMMUNITY LIFE DIRECTOR, COMMUNITY LIFE DIRECTOR-C Attending Provider Active Start: August 21, 2024 End: August 21, 2024 Team Status: Inactive Member Role/Relationship Status Dates Dr. David Miramontes MD Primary Care Provider Active Start: August 25, 2024 End: August 25, 2024 Marimar Zimmer COMMUNITY LIFE DIRECTOR, COMMUNITY LIFE DIRECTOR-C Attending Provider Active Start: August 25, 2024 [...] 2024 End: July 04, 2024 Marimar Zimmer COMMUNITY LIFE DIRECTOR, COMMUNITY LIFE DIRECTOR-C Attending Provider Active Start: July 04, 2024 End: July 04, 2024 Team Status: Inactive Member Role/Relationship Status Dates Dr. David Miramontes MD Primary Care Provider Active Start: July 18, 2024 End: July 18, 2024 Dr. David Miramontes MD Attending Provider Active Start: July 18, 2024 End: July 18, 2024 Team Status: Inactive Member Role/Relationship Status Dates Marimar Zimmer COMMUNITY LIFE DIRECTOR, COMMUNITY LIFE DIRECTOR-C Attending Provider Active Start: July 20, 2024 [...] 2024 End: August 15, 2024 Marimar Zimmer COMMUNITY LIFE DIRECTOR, COMMUNITY LIFE DIRECTOR-C Attending Provider Active Start: August 15, 2024 [...] 2024 End: August 21, 2024 Marimar Zimmer COMMUNITY LIFE DIRECTOR, COMMUNITY LIFE DIRECTOR-C Attending Provider Active Start: August 21, 2024 [...] End: August 25, 2024 Marimar Zimmer NP, COMMUNITY LIFE DIRECTOR-C Attending Provider Active Start: August 25, 2024 [...] Status: Active Member Role/Relationship Status Dates Dr. Daivd Miramontes MD Primary Care Provider Active Start: September 25, 2024 David GARCIA MD Attending Provider Active Start: September 25, 2024 Team Status: Inactive Member Role/Relationship Status Dates Dr. David Miramontes MD Primary Care Provider Active Start: September 19, 2024 End: September 19, 2024 Marimar Zimmer NP, COMMUNITY LIFE DIRECTOR-C Attending Provider Active Start: September 19, 2024 [...] 2024 End: September 25, 2024 Marimar Zimmer COMMUNITY LIFE DIRECTOR, COMMUNITY LIFE DIRECTOR-C Attending Provider Active Start: September 25, 2024 End: September 25, 2024 Team Status: Inactive Member Role/Relationship Status Dates Dr. David Miramontes MD Primary Care Provider Active Start: July 04, 2024 End: July 04, 2024 Marimar Zimmer COMMUNITY LIFE DIRECTOR, COMMUNITY LIFE DIRECTOR-C Attending Provider Active Start: July 04, 2024 End: July 04, 2024 Team Status: Inactive Member Role/Relationship Status Dates Dr. Daivd Miramontes MD Primary Care Provider Active Start: July 18, 2024 End: July 18, 2024 Dr. David Miramontes MD Attending Provider Active Start: July 18, 2024 End: July 18, 2024 Team Status: Inactive Member Role/Relationship Status Dates Marimar Zimmer COMMUNITY LIFE DIRECTOR, COMMUNITY LIFE DIRECTOR-C Attending Provider Active Start: July 20, 2024 [...] 2024 End: August 15, 2024 Marimar Zimmer COMMUNITY LIFE DIRECTOR, COMMUNITY LIFE DIRECTOR-C Attending Provider Active Start: August 15, 2024 [...] 2024 End: August 21, 2024 Marimar Zimmer COMMUNITY LIFE DIRECTOR, COMMUNITY LIFE DIRECTOR-C Attending Provider Active Start: August 21, 2024 [...] 2024 End: August 25, 2024 Marimar Zimmer COMMUNITY LIFE DIRECTOR, COMMUNITY LIFE DIRECTOR-C Attending Provider Active Start: August 25, 2024 [...] 2024 End: September 19, 2024 Marimar Zimmer COMMUNITY LIFE DIRECTOR, COMMUNITY LIFE DIRECTOR-C Attending Provider Active Start: September 19, 2024 End: September 19, 2024 Team Status: Inactive Member Role/Relationship Status Dates Dr. David Miramontes MD Primary Care Provider Active Start: September 25, 2024 End: September 25, 2024 Marimar Zimmer COMMUNITY LIFE DIRECTOR, COMMUNITY LIFE DIRECTOR-C Attending Provider Active Start: September 25, 2024 End: September 25, 2024 Team Status: Inactive Member Role/Relationship Status Dates Dr. David Miramontes MD Primary Care Provider Active Start: September 29, 2024 End: September 29, 2024 Dasia Barrett COMMUNITY LIFE DIRECTOR-C Attending Provider Active Start: September 29, 2024 [...] 29, 2024 End: October 29, 2024 Dr. bAhinav Leigh MD Emergency Provider Active S tart: October 29, 2024 End: October 29, 2024 Team Status: Inactive Member Role/Relationship Status Dates Dr. David Miramontes MD Primary Care Provider Active Start: July 18, 2024 End: July 18, 2024 Dr. David Miramontes MD Attending Provider Active Start: July 18, 2024 End: July 18, 2024 Team Status: Inactive Member Role/Relationship Status Dates Marimar Zimmer COMMUNITY LIFE DIRECTOR, COMMUNITY LIFE DIRECTOR-C Attending Provider Active Start: July 20, 2024 End: July 20, 2024 Dr. David Mriamontes MD Primary Care Provider Active Start: July [...] 2024 End: August 15, 2024 Marimar Zimmer COMMUNITY LIFE DIRECTOR, COMMUNITY LIFE DIRECTOR-C Attending Provider Active Start: August 15, 2024 [...] End: August 21, 2024 Marimar Zimmer NP, COMMUNITY LIFE DIRECTOR-C Attending Provider Active Start: August 21, 2024 [...] 2024 End: August 25, 2024 Marimar Zimmer COMMUNITY LIFE DIRECTOR, COMMUNITY LIFE DIRECTOR-C Attending Provider Active Start: August 25, 2024 [...] End: September 19, 2024 Marimar Zimmer NP, COMMUNITY LIFE DIRECTOR-C Attending Provider Active Start: September 19, 2024 [...] End: September 25, 2024 Marimar Zimmer NP, COMMUNITY LIFE DIRECTOR-C Attending Provider Active Start: September 25, 2024 End: September 25, 2024 Team Status: Inactive Member Role/Relationship Status Dates Dr. David Miramontes MD Primary Care Provider Active Start: September 29, 2024 End: September 29, 2024 Dasia Barrett COMMUNITY LIFE DIRECTOR-C Attending Provider Active Start: September 29, 2024 [...] section and content) DATE CREATED AUTHOR 06/08/2022 [facility] DATE CREATED AUTHOR AUTHOR'S ORGANIZ ATION 07/17/2024 [facility] DATE CREATED AUTHOR AUTHOR'S ORGANIZ ATION 11/06/2024 [facility] FOR RECORDS PERTAINING TO PATIENTS WHO [...] BE BASED ON THE PRIMARY CLINICAL RECORDS. [facility] [employer], [facility]. provides no warranty or guarantee of the accuracy or completeness of information in this document.
[2024-11-07 07:02] LABS: Hematocrit 41.3 % (40-54); Hemoglobin 13.4 g/dL (13.0-16.5); Immature Granulocytes Count 0.040 X10^3/uL (0.0-0.0); Mean Corp Hgb Conc 32.4 g/dL (32-36); Mean Corpuscular Volume 97.6 fL (80-94); Mean Platelet Vol. 11.6 fl (6.2-12.0); NRBC Flagged by Analyzer 0 % (0-5); Platelet Count 219 K/mm3 (150-450); RBC Distribution Width CV 14.5 % (11.6-14.6); RBC Distribution Width SD 51.7 fl (35.1-43.9); Red Blood Count 4.23 M/mm3 (4.6-6.2); White Blood Count 8.8 K/mm3 (4.4-11.0)
[2024-11-07 07:23] LABS: Anion Gap 13 (5-15); BUN 22 mg/dL (4-19); BUN/Creat Ratio 23.6 RATIO (10-20); Calcium,Total 9.3 mg/dL (7.6-11.0); Carbon Dioxide 23.9 mmol/L (21.0-32.0); Chloride 104 mmol/L (98-108); Glucose 103 mg/dL (70-99); Potassium 3.4 mmol/L (3.3-5.1)
== END ==
LOC: OLS.WHLCAR 05:00
PROVIDERS: PCP Internal Medicine; Visit Provider Internal Medicine
DX: I48.20 Chronic atrial fibrillation, unspecified (principal)
CPT/HCPCS: 36415; 80048; 85025

== ENCOUNTER → 2024-11-22 | Outpatient (REF) | payer MEDICARE, SELFPAY ==
[2024-11-22 08:21] LABS: Hematocrit 43.3 % (40-54); Hemoglobin 13.9 g/dL (13.0-16.5); Immature Granulocytes Count 0.020 X10^3/uL (0.0-0.0); Mean Corp Hgb Conc 32.1 g/dL (32-36); Mean Corpuscular Volume 99.1 fL (80-94); Mean Platelet Vol. 12.1 fl (6.2-12.0); NRBC Flagged by Analyzer 0 % (0-5); Platelet Count 209 K/mm3 (150-450); RBC Distribution Width CV 14.6 % (11.6-14.6); RBC Distribution Width SD 53.3 fl (35.1-43.9); Red Blood Count 4.37 M/mm3 (4.6-6.2); White Blood Count 6.3 K/mm3 (4.4-11.0)
[2024-11-22 08:52] LABS: AST(SGOT) 29 U/L (<=37); Alanine Aminotransfer ALT/SGPT 7 U/L (<=46); Albumin, Serum 3.6 g/dL (3.4-4.8); Alkaline Phosphatase 73 U/L (40-129); Anion Gap 10 (5-15); BUN 13 mg/dL (4-19); BUN/Creat Ratio 13.1 RATIO (10-20); Calcium,Total 9.4 mg/dL (7.6-11.0); Carbon Dioxide 27.6 mmol/L (21.0-32.0); Chloride 102 mmol/L (98-108); Globulin 3.0 g/dL (2.2-4.2); Glucose 82 mg/dL (70-99); Potassium 4.3 mmol/L (3.3-5.1)
== END ==
LOC: OLS.WHLCAR 05:40
PROVIDERS: PCP Internal Medicine; Visit Provider Internal Medicine
DX: G30.9 Alzheimer's disease, unspecified (principal); I48.20 Chronic atrial fibrillation, unspecified
CPT/HCPCS: 36415; 80053; 85025

== ENCOUNTER → 2025-01-31 05:00 | Outpatient (REF) | payer MEDICARE, SELFPAY ==
--- OUTSIDE RECORDS SUMMARY | 2025-01-31 04:52 | XMS RPT_ITS | CCD ---
Author Organization [facility] ion [facility] Care Team Providers Care Trading Analyst Name Role Phone Nicolas Cardenas MD Primary Care Provider Dr. Nicolas Cardenas Primary Care Provider Dr. Abhinav Leigh Emergency Provider Dr. Robinson Nguyen Admit Provider Dr. Robinson Nguyen Attending Provider Dr. Robinson Nguyen Other Provider Dr. Kevin Nichole Attending Provider Dr. Kevin Nichole Other Provider Dr. Desire Leung Attending Provider Nicolas Cardenas MD Primary Care Provider Mesha CHILD CARE SUPERVISOR, CHILD CARE SUPERVISOR-C Marimar Attending Provider Dr. Nicolas Justin Primary Care Provider Mesha CHILD CARE SUPERVISOR, CHILD CARE SUPERVISOR-C Marimar Attending Provider Dr. David Nina Attending Provider Unavailable Primary Care Provider NICOLAS Aannd Referring Unavailable NICOLAS CARDENAS Attending Unavailable NICOLAS CARDENAS Primary Care Unavailable Dr. Nicolas Cardenas Primary Care Provider Mesha CHILD CARE SUPERVISOR, CHILD CARE SUPERVISOR-C Marimar Attending Provider Dr. David Nina Attending Provider Dr. Nicolas Cardenas Primary Care Provider Mesha CHILD CARE SUPERVISOR, CHILD CARE SUPERVISOR-C Marimar Attending Provider Unav ailDr. David Jackson Attending Provider [phone] Dr. Nicolas Cardenas Primary Care Provider Mesha CHILD CARE SUPERVISOR, CHILD CARE SUPERVISOR-C Marimar Attending Provider Dr. David Miramontes Attending Provider [phone] Dr. David Miramontes MD Primary Care Provider Kai ALAMO, Dr. Sandhu Attending Provider Kai ALAMO, Dr. Sandhu Referring Provider [phone] Kulwinder ALAMO, Dr. Win Attending Provider [phone] Isidro Can Attending Provider Mesha CHILD CARE SUPERVISOR-CMarimar Attending Provider David Miramontes MD Attending Provider UnavailDavid Truong MD Referring Provider UnavailDr. David Truong MD Referring Provider Ernie ALAMO, Dr. Rahman Attending Provider Kulwinder ALAMO, Dr. Win Primary Care Provider Kulwinder ALAMO, Dr. Win Attending Provider [phone] Dr. Edson Quinn MD Attending Provider [phone] Dr. Edson Quinn MD Referring Provider [phone] Dr. David Miramontes MD Primary Care Provider Mesha CHILD CARE SUPERVISOR-CMarimar Attending Provider Unavailable Primary Care Provider UnavailDIANA Zamora Attending Miva ilable SELF Referring Unavailable Dr. David Miramontes MD Primary Care Provider Mesha CHILD CARE SUPERVISOR-CMarimar Attending Provider David Miramontes MD Attending Provider Unavailapril Miramontes MD, Dr. Win Attending Provider [phone] David Miramontes MD Referring Provider Unavailapril Miramontes MD, Dr. Win Primary Care Provider Tickton CHILD CARE SUPERVISOR-C, Marimar Attending Provider Kai ALAMO, Dr. Sandhu Attending Provider Kai ALAMO, Dr. Sandhu Referring Provider [phone] Kulwinder ALAMO, Dr. Win Primary Care Provider Kulwinder ALAMO, David Attending Provider Unavaila ble [place] CHILD CARE SUPERVISOR-C, Marimar Attending Provider Kulwinder ALAMO, Dr. Win Attending Provider [phone] Kai ALAMO, Dr. Sandhu Attending Provider Kai ALAMO, Dr. Sandhu Referring Provider [phone] Kulwinder ALAMO, Dr. Win Primary Care Provider David Miramontes MD Attending Provider Unavaila ble [place] CHILD CARE SUPERVISOR-C, Marimar Attending Provider Kulwinder ALAMO, Dr. Win Attending Provider [phone] Kulwinder ALAMO, Dr. Win Primary Care Provider David Miramontes MD Attending Provider Unavaila ble Ungerer CHILD CARE SUPERVISOR-C, Dasia Attending Provider Reese ALAMO, Dr. La Emergency Provider Kulwinder ALAMO, Dr. Win Primary Care Provider [place]ickton CHILD CARE SUPERVISOR-C, Marimar Attending Provider Reese ALAMO, Dr. La Attending Provider Kulwinder ALAMO, Dr. Win Primary Care Physician David Miramontes MD Attending Physician Unavail able [place]ton CHILD CARE SUPERVISOR-C, Marimar Attending Physician Kai ALAMO, Dr. Sandhu Attending Physician Kulwinder ALAMO, Dr. Win Attending Physician Ungerer CHILD CARE SUPERVISOR-C, Dasia Attending Physician Reese ALAMO, Dr. La Attending Physician [phone] Reese ALAMO, Dr. La Emergency Department Physici an Kulwinder ALAMO, Dr. Win Primary Care Physician Kulwinder ALAMO, David Attending Physician Unavail able Mesha CHILD CARE SUPERVISOR-CMarimar Attending Physician Kai ALAMO, Dr. Sandhu Attending Physician Kai ALAMO, Dr. Sandhu Referring Provider Oleghe, Efewongbe Primary Care Unavailable Oleghe OLS, Efewongbe Attending Unavailabl e Oleghe OLS, Efewongbe Referring Unavailabl e Oleghe, Efewongbe Primary Care Unavailable Oleghe OLS, Efwayneongbe Attending Unavailabl e Oleghe, Efewongbe Primary Care Unavailable Oleghe OLS, Efwayneongbe Attending Unavailabl e Oleghe, Efewongbe Referring Unavailable Oleghe, Efewongbe Primary Care Unavailable Oleghe, Efewongbe Attending Unavailable Oleghe, Efewongbe Primary Care Unavailable Mesha CHILD CARE SUPERVISORMarimar Attending Unavailable Oleghe, Efewongbe Primary Care Unavailable Mesha CHILD CARE SUPERVISORMarimar Attending Unavailable Oleghe, Efewongbe Primary Care Unavailable [...] Oleghe OLS, Efewongbe Attending Unavailabl e Kai, Edson Attending Unavailable Kai, [place] Referring Unavailable Oleghe, Efewongbe Primary Care Unavailable Oleghe, Efewongbe Primary Care Unavailable Oleghe, Efewongbe Attending Unavailable Oleghe, Efewongbe Primary Care Unavailable Oleghe, Efewongbe Attending Unavailable Oleghe, Efewongbe Primary Care Unavailable Isidro Can Attending Unavailable Oleghe, Efewongbe Primary Care Unavailable Tickton CHILD CARE SUPERVISOR, Marimar Attending Unavailable Kai, [place] Referring Unavailable Kai, [place] Attending Unavailable Oleghe, Efewongbe Primary Care Unavailable Oleghe, Efewongbe Attending Unavailable Oleghe, Efewongbe Primary Care Unavailable Oleghe, Efewongbe Primary Care Unavailable [place] CHILD CARE SUPERVISOR, Marimar Attending Unavailable Oleghe, Efewongbe Primary Care Unavailable [place] CHILD CARE SUPERVISOR, Marimar Attending Unavailable Oleghe, Efewongbe Primary Care Unavailable [place] CHILD CARE SUPERVISOR, Marimar Attending Unavailable Oleghe, Efewongbe Primary Care Unavailable Oleghe, Efewongbe Attending Unavailable Oleghe, Efewongbe Primary Care Unavailable [place] CHILD CARE SUPERVISOR, Marimar Attending Unavailable Oleghe, Efewongbe Primary Care Unavailable [place] CHILD CARE SUPERVISOR, Marimar Attending Unavailable Oleghe, Efewongbe Primary Care Unavailable [place] CHILD CARE SUPERVISOR, Marimar Attending Unavailable Oleghe, Efewongbe Attending Unavailable Oleghe, Efewongbe Primary Care Unavailable Oleghe, Efewongbe Primary Care Unavailable Dasia Barrett Attending Unavailable Oleghe, Efewongbe Primary Care Unavailable Kai, Edson Referring Unavailable Kai, Edson Attending Unavailable Oleghe, Efewongbe Primary Care Unavailable [place] CHILD CARE SUPERVISOR, Marimar Attending Unavailable [place] CHILD CARE SUPERVISOR, Marimar Attending Unavailable Oleghe, Efewongbe Primary Care Unavailable [place] CHILD CARE SUPERVISOR, Marimar Attending Unavailable Oleghe, Efewongbe Primary Care Unavailable Oleghe, Efewongbe Primary Care Unavailable Oleghe, Efewongbe Referring Unavailable Josiah Klein Attending Unavailable Oleghe, Efewongbe Primary Care Unavailable Kai, [place] Referring Unavailable Kai, Edson Attending Unavailable Oleghe, Efewongbe Primary Care Unavailable [place] CHILD CARE SUPERVISOR, Marimar Attending Unavailable [place] CHILD CARE SUPERVISOR, Marimar Attending Unavailable Oleghe, Efewongbe Primary Care Unavailable Oleghe, Efewongbe Primary Care Unavailable [place] CHILD CARE SUPERVISOR, Marimar Attending Unavailable Oleghe, Efewongbe Primary Care Unavailable [place] CHILD CARE SUPERVISOR, Marimar Attending Unavailable Oleghe, Efewongbe Primary Care Unavailable Oleghe, Efewongbe Attending Unavailable Oleghe, Efewongbe Primary Care Unavailable Dasia Barrett Attending Unavailable Oleghe, Efewongbe Primary Care Unavailable [place] CHILD CARE SUPERVISOR, Marimar Attending Unavailable Oleghe, Efewongbe Primary Care Unavailable [place] CHILD CARE SUPERVISOR, Marimar Attending Unavailable Oleghe, Efewongbe Primary Care [...] Edson Referring Unavailable Kai, Edson Attending Unavailable Oleghe OLS, Efewongbe Attending Unavailabl e Oleghe, Efewongbe Primary Care Unavailable Oleghe, Efewongbe Primary Care Unavailable Kai, Edson Referring Unavailable Kai, [place] Attending Unavailable Oleghe, Efewongbe Primary Care Unavailable Oleghe, Efewongbe Attending Unavailable Oleghe OLS, Efewongbe Referring Unavailabl e Oleghe OLS, Efewongbe Attending Unavailabl e Oleghe, Efewongbe Primary Care Unavailable Medications Current Medications Medication Drug Class(es) Dates Sig (Normalized) Sig (Original) aluminum hydroxide 40 mg/ml / magnesium hydroxide 40 mg/ml / simethicone 4 mg/ml oral suspension (20 sources) Start: 07-08-2023 Aspirin (1 source) Platelet Aggregation Inhibitor, Nonsteroidal Anti-inflammatory Drug Start: 10-20-2021 aspirin Active October 20, 2021 12:00am benzocaine 0.2 mg/mg / menthol 0.001 mg/mg / zinc chloride 0.0015 mg/mg oral gel (20 sources) Standardized Chemical Allergen Start: 07-08-2023 cimetidine 200 mg oral tablet (20 sources) Histamine-2 Receptor Antagonist Start: 02-13-2022 End: 03-25-2022 take 1 tablet by mouth once daily CPAP (7 sources) CPAP Active CPAP Docosahexanoic Acid-Eicosapent (FISH OIL) ORAL Cap (7 sources) Start: 08-31-2006 take 1 capsule by mouth once daily Docosahexanoic Acid-Eicosapent (FISH OIL) ORAL Cap Take one(1) capsule daily. 0 0 08/31/2006 Active Comment on above: Take one(1) capsule daily. docusate sodium 50 mg / sennosides, snf 8.6 mg oral tablet (20 sources) Start: 10-22-2021 End: 02-26-2022 magnesium hydroxide 80 mg/ml oral suspension (20 sources) Start: 07-08-2023 take 1 mL by mouth once daily as needed Start: 07-08-2023 take 1 mL by mouth o nce daily as needed Magnesium Hydroxide 400 mg/5 mL suspension Active 30 mL PO DAILY as needed July 08, 2023 12:00am potassium chloride 10 meq extended release oral tablet (20 sources) Start: 06-16-2024 take 1 tablet by glenna once daily Start: 08-23-2018 End: 06-16-2024 take 1 tablet [...] oral tablet (20 sources) Atypical Antipsychotic Start: 11-08-2023 take 1 tablet by mouth once daily in the morning, then take 2 tablets by mouth in the evening Start: 07-22-2023 End: 11-08-2023 Quetiapine (Seroquel) 25 mg tablet Discontinued 12.5 mg PO DAILY 45 90 3 July 22, 2023 12:00am November 08, 2023 5:03pm sertraline 25 mg oral tablet (20 sources) Serotonin Reuptake Inhibitor Start: 05-05-2024 take 1 tablet by mouth once daily Completed/Discontinued Medications Medication Drug Class(es) Dates Sig [...] capsule (20 sources) Start: 9 End: 4 Vallejo-3 Fatty Acids-Fish Oil (Fish Oil) 360-1,200 mg [...] hydrochloride 5 mg oral tablet (20 sources) S-otwpjx-F-aspartat e Receptor Antagonist Start: 3 End: 4 take 1 tablet by mouth twice daily Memantine 5 mg tablet Discontinued 0 .ROUTE .COMPLEX 180 3 March 31, 2023 7:49pm July 08, 2023 11:50am TAKE 1 TABLET BY MOUTH TWICE DAILY menthol 0.0044 mg/mg / zinc oxide 0.206 mg/mg topical ointment (20 sources) Start: 2 End: 4 Menthol-Zinc [...] February 26, 2022 4:14pm Start: 10-22-2021 End: 07-08-2023 Menthol-Zinc Oxide (Calmosep ame) 0.44-20.6 [...] A DAY 0 October 22, 2021 12:00am Vallejo-3 Fatty Acids (Fish Oil Concentrate) 1,000 mg capsule (20 sources) Start: 08-23-2018 End: 11-08-2018 take 1 capsule by mouth once daily Vallejo-3 Fatty Acids (Fish Oil Concentrate) 1,000 mg capsule Discontinued 1000 mg PO DAILY August 23, 2018 12:00am November 08, 2018 1:59pm Start: 08-23-2018 End: 11-08-2018 take 1 capsule by mouth once daily Vallejo-3 Fatty Acids (Fish Oil Concentrate) 1,000 mg capsule Discontinued 1000 MG PO DAILY August 22, 2018 11:00pm November 08, 2018 12:59pm Start: 08-23-2018 End: 11-08-2018 take 1 capsule by mouth once daily Vallejo-3 Fatty Acids (Fish Oil Concentrate) 1,000 mg [...] on above: Take 1 capsule by mo [facility] once daily. Perflutren Lipid Microspheres (Definity) [...] source) Other fatigue; Translations: [Other fatigue] Onset: 12-28-2024 Episodic Osteoarthritis (6 sources) Osteoarthritis; Translations: [Unspecified osteoarthritis, unspecified site] 10-29-2024 Chronic Other aftercare (20 sources) Long-term current use of anticoagulant; Translations: [shelter (current) use of anticoagulants] 10-30-2021 Episodic Other aftercare (2 sources) shelter (current) use of anticoagulants; Translations: [Long-term (current) [...] circulatory system] Episodic Other connective tissue disease (6 sources) Swelling of hand; Translations: [Other specified soft tissue disorders] 10-29-2024 Episodic Other connective tissue disease (1 source) Other specified soft tissue disorders; Translations: [Other specified soft tissue disorders] Onset: 11-14-2024 Episodic Other gastrointestinal disorders (2 sources) Dysphagia, oral phase; Translations: [Dysphagia, oral phase] Onset: 09-19-2024 Episodic Other hereditary and degenerative nervous system conditions (8 sources) Essential tremor; Translations: [Essential tremor] Onset: 05-23-2013 05-23-2013 Chronic Other hereditary and degenerative nervous system conditions (2 sources) Essential tremor; Translations: [Essential tremor] Onset: 09-19-2024 Chronic Other injuries and conditions due to external causes (7 sources) Closed injury of head; Translations: [Unspecified injury of head, initial encounter] 10-27-2024 Episodic Other injuries and conditions due to external causes (6 sources) History of fall; Translations: [History of falling] 10-29-2024 Episodic Other injuries and conditions due to external causes (5 sources) Injury of head; Translations: [Unspecified injury of head, initial encounter] 11-02-2024 Episodic Other injuries and conditions due to external causes (1 source) Unspecified injury of head, initial encounter; Translations: [Unspecified injury of head, initial encounter] Onset: 11-14-2024 Episodic Other nutritional; endocrine; and metabolic disorders [...] remission] Onset: 04-11-2024 Chronic Superficial injury; contusion (8 sources) Hematoma of scalp; Translations: [Contusion of scalp, initial encounter] Onset: 11-14-2024 10-27-2024 Episodic Unclassified (2 sources) Dementia in other diseases classified elsewhere, unspecified severity, with other behavioral disturbance; Translations: [Dementia in other diseases classified elsewhere, unspecified severity, with other behavioral disturbance] Onset: 09-19-2024 Unclassified (2 sources) Chronic atrial fibrillation, unspecified; Translations: [Chronic atrial fibrillation, unspecified] Onset: 09-19-2024 Past or Other Problems Problem Classification Problem [...] Test Name Value Interpretation Reference Range Facility Pacemaker Checkon 11-27-2024 Pacemaker Check [facility] [address] [place] [address] Pacemaker Check Date of Service: 11/27/241647 MR#: [id number] Acct: [id number] Name: GILMAKEL XAVIER Rep #: [id number] : 1940 From: Yesenia Prescott Age/Sex: 84/M Location: [facility] Status: Signed Billing Codes PM Device Codes: 42972 PM Dev Prog Eval, Dual Assessment and Plan Assessment and Plan (1) Presence of cardiac pacemaker: Status: Chronic (2) Sick sinus syndrome: Status: Chronic (3) Sinus pause: Status: Resolved Comment: 6.7 seconds on holter, plus several other pauses of shorter duration 11/15/18 11/27/241647 Date Yesenia Prescott Cosignenoc Signature: Date (if applicable) CC: Normal [facility] Absolute lymphocyte countOrd ered By: David Miramontes on 11-22-2024 Lymphocytes Auto (Unsp spec) [#/Vol] 1.15 10*3/uL 0.83-4.51 [facility] Absolute neutrophil countOrd ered By: Mayrawaynecarleen Joesphiman on 11-22-2024 Neutrophils (Bld) [#/Vol] 4.3 10*3/uL 2.0-7.7 [facility] Anion gap in Serum or Plasma Ordered By: David Miramontes on 11-22-2024 Anion gap [Moles/Vol] 10 mmol/L 5-15 [facility] Automated lymphocyte count a s percentage of total leukocytesOrdered By: David Miramontes on 11-22-2024 Lymphocytes/100 WBC Auto (Unsp spec) 18.3 % Low 19-41 [facility] BUN/creatinine ratioOrdered By: David Miramontes on 11-22-2024 Urea nitrogen/Creatinine [Mass ratio] 13.1 mg/mg 10-20 [facility] Basophil percentageOrdered B y: David Miramontes on 11-22-2024 Basophils/100 WBC (Bld) 0.8 % 0-1 [facility] Bilirubin, totalOrdered By: David Pinkamnatereza on 11-22-2024 Bilirubin [Mass/Vol] 0.67 mg/dL 0.00-1.30 [facility] Carbon dioxide, total [Moles /volume] in Central venous bloodOrdered By: David Miramontes on 11-22-2024 CO2 [Moles/Vol] 27.6 mmol/L 21.0-32.0 [facility] Chloride assayOrdered By: Mayra Miramontes on 11-22-2024 Chloride [Moles/Vol] 102 mmol/L 98-108 [facility] Eosinophil percentageOrdered By: David Pinkamnatereza on 11-22-2024 Eosinophils/100 WBC (Bld) 1.9 % 0-5 [facility] Erythrocyte distribution wid th ratioOrdered By: David Pinkamnatereza on 11-22-2024 Erythrocyte distribution width (RBC) [Ratio] 14.6 % 11.6-14.6 [facility] Erythrocyte distribution wid th standard deviationOrdered By: David Pinkamnatereza on 11-22-2024 Erythrocyte distribution width (RBC) [Ratio] 53.3 fl High 35.1-43.9 [facility] Glomerular filtration rate ( GFR) estimation/1.73 sq m using serum, plasma, or whole bOrdered By: David Miramontes on 11-22-2024 GFR/1.73 sq M.predicted among non-blacks MDRD (S/P/Bld) [Vol rate/Area] 74 mL/min/{1.73_m2} >60 [facility] Comment on above: mL/min/1.73m2 CKD-EP I Creatinine Equation (2020) Hematocrit Auto (Bld) [Volum e fraction]Ordered By: Frandykanabingris Miramontes on 11-22-2024 Hematocrit (Bld) [Volume fraction] 43.3 % 40-54 [facility] Hemoglobin measurementOrdere d By: David Miramontes on 11-22-2024 Hemoglobin (Bld) [Mass/Vol] 13.9 g/dL 13.0-16.5 [facility] Immature granulocytes/100 WB C Auto (Bld)Ordered By: David Miramontes on 11-22-2024 Immature granulocytes/100 WBC (Bld) 0.300 % 0.0-0.9 [facility] Comment on above: IG% - Immature Granu locytes (promyelocytes, myelocytes and metamyelocytes) > 1% indicates that a LEFT SHIFT is Present. Laboratory - Chemistry and C hemistry - challengeOrdered By: David Miramontes on 11-22-2024 AST [Catalytic activity/Vol] 29 U/L <38 [facility] Comment on above: Hemolysis present, R esults could be affected. MCV (mean corpuscular volume ) determinationOrdered By: David Miramontes on 11-22-2024 MCV (RBC) [Entitic vol] 99.1 fL High 80-94 [facility] Mean corpuscular hemoglobin (MCH) determinationOrdered By: David Miramontes on 11-22-2024 MCH (RBC) [Entitic mass] 31.8 pg 27.0-32.0 [facility] Mean corpuscular hemoglobin concentration (MCHC) determinationOrdered By: David Miramontes 11-22-2024 MCHC (RBC) [Mass/Vol] 32.1 g/dL 32-36 [facility] Mean platelet volume determi nationOrdered By: David Joesphamnatereza on 11-22-2024 Platelet mean volume (Bld) [Entitic vol] 12.1 fL High 6.2-12.0 [facility] Monocyte percentageOrdered B y: Mayrawaynefeliciaingris Pinkamnatereza on 11-22-2024 Monocytes/100 WBC (Bld) 10.0 % 0-10 [facility] Neutrophil percentageOrdered By: Mayradanay Pinkamnatereza on 11-22-2024 Neutrophils/100 WBC (Bld) 68.7 % 47-70 [facility] Nucleated red blood cell per centageOrdered By: Mayrawaynecarleen Joesphamnatereza on 11-22-2024 Nucleated RBC/100 WBC (Bld) [Ratio] 0 % 0-5 [facility] Platelet countOrdered By: Mayra fawadingris Pinkamnatereza on 11-22-2024 Platelets (Bld) [#/Vol] 209 10*3/uL 150-450 [facility] Potassium measurement (mass/ volume)Ordered By: David Miramontes on 11-22-2024 Potassium (Unsp spec) [Mass/Vol] 4.3 mmol/L 3.3-5.1 [facility] Comment on above: Hemolysis present, R esults could be affected. RBC Auto (Bld) [#/Vol]Ordere d By: David Pinkamnatereza on 11-22-2024 RBC (Bld) [#/Vol] 4.37 10*6/uL Low 4.6-6.2 [facility] Serum creatinine measurement (mass/volume)Ordered By: David Miramontes on 11-22-2024 Creatinine [Mass/Vol] 1.00 mg/dL 0.70-1.20 [facility] Serum globulin measurementOr dered By: David Miramontes on 11-22-2024 Globulin (S) [Mass/Vol] 3.0 g/dL 2.2-4.2 [facility] Serum glucose measurement (m ass/volume)Ordered By: David Miramontes on 11-22-2024 Glucose [Mass/Vol] 82 mg/dL 70-99 [facility] Serum or plasma alanine grant otransferase (ALT) measurementOrdered By: David Miramontes on 11-22-2024 ALT [Catalytic activity/Vol] 7 U/L <47 [facility] Serum or plasma albumin siobhan urement (mass/volume)Ordered By: David Miramontes on 11-22-2024 Albumin [Mass/Vol] 3.6 g/dL 3.4-4.8 [facility] Serum or plasma albumin/glob ulin mass ratioOrdered By: David Miramontes on 11-22-2024 Albumin/Globulin [Mass ratio] 1.2 {ratio} 0.9-2.4 [facility] Serum or plasma alkaline deven sphatase measurementOrdered By: David Miramontes on 11-22-2024 ALP [Catalytic activity/Vol] 73 U/L 40-129 [facility] Serum or plasma calcium siobhan urement (mass/volume)Ordered By: David Miramontes on 11-22-2024 Calcium [Mass/Vol] 9.4 mg/dL 7.6-11.0 [facility] Serum or plasma urea nitroge n measurement (mass/volume)Ordered By: David Miramontes on 11-22-2024 Urea nitrogen [Mass/Vol] 13 mg/dL 4-19 [facility] Sodium levelOrdered By: Frandy chavezyonatan Kulwinder on 11-22-2024 Sodium [Moles/Vol] 140 mmol/L 133-145 [facility] Total proteinOrdered By: Lg Miramontes on 11-22-2024 Protein [Mass/Vol] 6.6 g/dL 5.9-8.4 [facility] White blood cell (WBC) count Ordered By: David Miramontes on 11-22-2024 WBC (Bld) [#/Vol] 6.3 10*3/uL 4.4-11.0 [facility] Absolute lymphocyte countOrd ered By: David Miramontes on 11-07-2024 Lymphocytes Auto (Unsp spec) [#/Vol] 1.03 10*3/uL 0.83-4.51 [facility] Absolute neutrophil countOrd ered By: David Miramontes on 11-07-2024 Neutrophils (Bld) [#/Vol] 6.7 10*3/uL 2.0-7.7 [facility] Anion gap in Serum or Plasma Ordered By: David Miramontes on 11-07-2024 Anion gap [Moles/Vol] 13 mmol/L 5-15 [facility] Automated lymphocyte count a s percentage of total leukocytesOrdered By: David Miramontes on 11-07-2024 Lymphocytes/100 WBC Auto (Unsp spec) 11.7 % Low 19-41 [facility] BUN/creatinine ratioOrdered By: David Miramontes on 11-07-2024 Urea nitrogen/Creatinine [Mass ratio] 23.6 mg/mg High 10-20 [facility] Basophil percentageOrdered B y: David Miramontes on 11-07-2024 Basophils/100 WBC (Bld) 0.3 % 0-1 [facility] Carbon dioxide, total [Moles /volume] in Central venous bloodOrdered By: danay Miramontes on 11-07-2024 CO2 [Moles/Vol] 23.9 mmol/L 21.0-32.0 [facility] Chloride assayOrdered By: Mayra Miramontes on 11-07-2024 Chloride [Moles/Vol] 104 mmol/L 98-108 [facility] Eosinophil percentageOrdered By: danay Miramontes on 11-07-2024 Eosinophils/100 WBC (Bld) 1.1 % 0-5 [facility] Erythrocyte distribution wid th ratioOrdered By: David Miramontes on 11-07-2024 Erythrocyte distribution width (RBC) [Ratio] 14.5 % 11.6-14.6 [facility] Erythrocyte distribution wid th standard deviationOrdered By: waynekanabingris Miramontes on 11-07-2024 Erythrocyte distribution width (RBC) [Ratio] 51.7 fl High 35.1-43.9 [facility] Glomerular filtration rate ( GFR) estimation/1.73 sq m using serum, plasma, or whole bOrdered By: David Miramontes on 11-07-2024 GFR/1.73 sq M.predicted among non-blacks MDRD (S/P/Bld) [Vol rate/Area] 79 mL/min/{1.73_m2} >60 [facility] Comment on above: mL/min/1.73m2 CKD-EP I Creatinine Equation (2020) Hematocrit Auto (Bld) [Volum e fraction]Ordered By: David Miramontes on 11-07-2024 Hematocrit (Bld) [Volume fraction] 41.3 % 40-54 [facility] Hemoglobin measurementOrdere d By: David Miramontes on 11-07-2024 Hemoglobin (Bld) [Mass/Vol] 13.4 g/dL 13.0-16.5 [facility] Immature granulocytes/100 WB C Auto (Bld)Ordered By: waynekanabingris Miramontes on 11-07-2024 Immature granulocytes/100 WBC (Bld) 0.500 % 0.0-0.9 [facility] Comment on above: IG% - Immature Granu locytes (promyelocytes, myelocytes and metamyelocytes) > 1% indicates that a LEFT SHIFT is Present. MCV (mean corpuscular volume ) determinationOrdered By: David Miramontes on 11-07-2024 MCV (RBC) [Entitic vol] 97.6 fL High 80-94 [facility] Mean corpuscular hemoglobin (MCH) determinationOrdered By: waynekanabingris Miramontes on 11-07-2024 MCH (RBC) [Entitic mass] 31.7 pg 27.0-32.0 [facility] Mean corpuscular hemoglobin concentration (MCHC) determinationOrdered By: David Miramontes on 11-07-2024 MCHC (RBC) [Mass/Vol] 32.4 g/dL 32-36 [facility] Mean platelet volume determi nationOrdered By: Frandykanabingris Miramontes on 11-07-2024 Platelet mean volume (Bld) [Entitic vol] 11.6 fL 6.2-12.0 [facility] Monocyte percentageOrdered B y: David Miramontes on 11-07-2024 Monocytes/100 WBC (Bld) 10.3 % High 0-10 [facility] Neutrophil percentageOrdered By: David Miramontes on 11-07-2024 Neutrophils/100 WBC (Bld) 76.1 % High 47-70 [facility] Nucleated red blood cell per centageOrdered By: David Miramontes on 11-07-2024 Nucleated RBC/100 WBC (Bld) [Ratio] 0 % 0-5 [facility] Platelet countOrdered By: Mayra Miramontes on 11-07-2024 Platelets (Bld) [#/Vol] 219 10*3/uL 150-450 [facility] Potassium measurement (mass/ volume)Ordered By: David Miramontes on 11-07-2024 Potassium (Unsp spec) [Mass/Vol] 3.4 mmol/L 3.3-5.1 [facility] RBC Auto (Bld) [#/Vol]Ordere d By: David Miramontes on 11-07-2024 RBC (Bld) [#/Vol] 4.23 10*6/uL Low 4.6-6.2 [facility] Serum creatinine measurement (mass/volume)Ordered By: David Miramontes on 11-07-2024 Creatinine [Mass/Vol] 0.94 mg/dL 0.70-1.20 [facility] Serum glucose measurement (m ass/volume)Ordered By: David Miramontes on 11-07-2024 Glucose [Mass/Vol] 103 mg/dL High 70-99 [facility] Serum or plasma calcium siobhan urement (mass/volume)Ordered By: David Miramontes on 11-07-2024 Calcium [Mass/Vol] 9.3 mg/dL 7.6-11.0 [facility] Serum or plasma urea nitroge n measurement (mass/volume)Ordered By: David Miramontes on 11-07-2024 Urea nitrogen [Mass/Vol] 22 mg/dL High 4-19 [facility] Sodium levelOrdered By: Frandy Miramontes on 11-07-2024 Sodium [Moles/Vol] 140 mmol/L 133-145 [facility] White blood cell (WBC) count Ordered By: David Miramontes on 11-07-2024 WBC (Bld) [#/Vol] 8.8 10*3/uL 4.4-11.0 [facility] Brain/Head without Contrasto n 11-02-2024 Brain/Head without Contrast [facility] Imaging Services [address] [place] [address] Brain/Head without Contrast MR#: [id number] Acct: [id number] Name: KEL DILLARD Rep #: [id number] : 1940 M 84 From: Grabiel ellis MD PCP: Dr. David Miramontes MD Status: REG ER Study: Brain/Head without Contrast Date of Exam: 06/23 Exam# [id number] Ordering Dr: Abhinav Leigh MD PROCEDURE: BRAIN/HEAD [...] an acute traumatic brain abnormality. [facility] CC: Dr. David Miramontes MD; Dr. Abhinav Leigh MD Laborer [place]: Signed Normal [facility] Emergency Department Summary on 11-02-2024 Emergency Department Summary [facility] Medical Records Department [address] [place] [address] Emergency Department Summary 11/02/24 MR#: [id number] Acct: [id number] Name: KEL DILLARD Rep #: [id number] : 1940 84 From: Abhinav Leigh MD [...] extended care facility. He is currently at [facility]. Tonight they found him in his room on the floor. It was an unwitnessed fall. No idea if he had any LOC. When they went to move him he reportedly had neck pain even though currently has no complaints. I spoke to staff at the nursing home facility. Patient's been seen at least 3-4 times in the last several weeks for falls. Prior similar symptoms: Yes Recent Illness/Hospitalizat ion: No PFSH PFSH Medical [...] soft nontender. Moving all 4 extremities. 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 Dorsi plantarflexion intact. He can flex extend at both hips and knees. There is no hip tenderness. No shortening or rotation. Back nontender no bruising. Neurologically is awake (more content not included)... Normal [facility] Spine Cervical without Contr ason 11-02-2024 Spine Cervical without Contras [facility] Imaging Services [address] [place] [address] Spine Cervical without Contras MR#: [id number] Acct: [id number] Name: KEL DILLARD Rep #: [id number] : 1940 M 84 From: Grabiel ellis MD PCP: Dr. David Miramontes MD Status: REG ER Study: Spine Cervical without Contras Date of Exam: 0 11/02/24 Exam# [id number] Ordering Dr: Abhinav Leigh MD PROCEDURE: SPINE [...] of an acute traumatic abnormality. Reading Location: [place] [address] CC: Dr. David Miramontes MD; Dr. Abhinav Leigh MD Laborer [place] Sinking: Signed Normal [facility] Emergency Department Summary on 10-29-2024 Emergency Department Summary [facility] Medical Records Department [address] [place] [address] Emergency Department Summary 10/29/24 MR#: [id number] Acct: [id number] Name: KEL DILLARD Rep #: [id number] : 1940 84 From: Abhinav Leigh MD [...] HEENT exa (more content not included)... Normal [facility] Hand Min 3 Viewson 5 Hand Min 3 Views [facility] Imaging Services [address] [place] [address] Hand Min 3 Views MR#: [id number] Acct: [id number] Name: KEL DILLARD Rep #: [id number] : 1940 M 84 From: Sue Martinez MD PCP: Dr. David Miramontes MD Status: REG ER Study: Hand Min 3 Views Date of Exam: 10/29/24 Exam# [id number] Ordering Dr: Abhinav Leigh MD PROCEDURE: HAND MIN 3 VIEWS 10/29/2024 REASON FOR EXAM: FALL TECHNIQUE: Procedure Code: [id number] Modality: DX Procedure: HAND MIN 3 VIEWS Laterality: Left COMPARISON: None. FINDINGS: Bones: No acute bony abnormalities. Joints: Unremarkable. Soft tissues: No soft tissue abnormalities. RAD/Hand Min 3 Views IMPRESSION: No acute osseous abnormalities. Reading Location: [facility] CC: Dr. David Miramontes MD; Dr. Abhinav Leigh MD Laborer [place]: Signed [facility] Wrist min 3 Viewson 10-30-19 Wrist min 3 Views [facility] Imaging Services [address] [place] [address] Wrist min 3 Views MR#: [id number] Acct: [id number] Name: KEL DILLARD Rep #: [id number] : 1940 M 84 From: Sue Martinez MD PCP: Dr. David Miramontes MD Status: REG ER Study: Wrist min 3 Views Date of Exam: 10/29/24 Exam# [id number] Ordering Dr: Abhinav Leigh MD PROCEDURE: WRIST [...] acute osseous abnormalities. Mild arthritis. Reading Location: [facility] CC: Dr. David Miramontes MD; Dr. Abhinav Leigh MD Laborer [place]: Signed Normal [facility] Brain/Head without Contrasto n 10-27-2024 Brain/Head without Contrast [facility] Imaging Services [address] [facility] [place] [address] Brain/Head without Contrast MR#: [id number] Acct: [id number] Name: KEL DILLARD Rep #: [id number] : 1940 M 84 From: Paulie Mariano MD PCP: Dr. David Miramontes MD Status: REG ER Study: Brain/Head without Contrast Date of Exam: 09/30 11/23 Exam# [id number] Ordering Dr: Ira Abad PROCEDURE: CT BRAIN/HEAD [...] loss and chronic microangiopathic changes. Reading Location: [facility] CC: Dr. David Miramontes MD; ERWIN Phillip Laborer [place] Sinking: Signed Normal [facility] Emergency Department Summary on 10-27-2024 Emergency Department Summary [facility] Medical Records Department [address] [place] [address] Emergency Department Summary 10/27/24 MR#: [id number] Acct: [id number] Name: KEL DILLARD Rep #: [id number] : 1940 84 From: Abhinav Leigh MD [...] which is baseline. He has no complaints. [facility] Medical History Alzheimers disease Former [...] right frontal (more content not included)... Normal [facility] Gram stainOrdered By: Jarrell Miramontes on 09-25-2024 Microscopic observation Gram stain Nom (Unsp spec) [facility] Anion gap in Serum or Plasma Ordered By: David Miramontes on 09-07-2024 Anion gap [Moles/Vol] 9 mmol/L 5-15 [facility] BUN/creatinine ratioOrdered By: David Miramontes on 09-07-2024 Urea nitrogen/Creatinine [Mass ratio] 15.9 mg/mg 10- [facility] Carbon dioxide, total [Moles /volume] in Central venous bloodOrdered By: David Miramontes on 09-07-2024 CO2 [Moles/Vol] 28.4 mmol/L 21.0-32.0 [facility] Chloride assayOrdered By: Mayra Miramontes on 09-07-2024 Chloride [Moles/Vol] 104 mmol/L 98-108 [facility] Glomerular filtration rate ( GFR) estimation/1.73 sq m using serum, plasma, or whole bOrdered By: David Miramontes on 09-07-2024 GFR/1.73 sq M.predicted among non-blacks MDRD (S/P/Bld) [Vol rate/Area] 72 mL/min/{1.73_m2} >60 [facility] Comment on above: mL/min/1.73m2 CKD-EP I Creatinine Equation (2020) Potassium measurement (mass/ volume)Ordered By: David Miramontes on 09-07-2024 Potassium (Unsp spec) [Mass/Vol] 4.0 mmol/L 3.3-5.1 [facility] Serum creatinine measurement (mass/volume)Ordered By: David Miramontes 09-07-2024 Creatinine [Mass/Vol] 1.02 mg/dL 0.70-1.20 [facility] Serum glucose measurement (m ass/volume)Ordered By: David Miramontes 09-07-2024 Glucose [Mass/Vol] 80 mg/dL 70-99 [facility] Serum or plasma calcium siobhan urement (mass/volume)Ordered By: David Miramontes on 09-07-2024 Calcium [Mass/Vol] 9.3 mg/dL 7.6-11.0 [facility] Serum or plasma urea nitroge n measurement (mass/volume)Ordered By: David Miramontes on 09-07-2024 Urea nitrogen [Mass/Vol] 16 mg/dL 4-19 [facility] Sodium levelOrdered By: Frandy Miramontes on 09-07-2024 Sodium [Moles/Vol] 141 mmol/L 133-145 [facility] Anion gap in Serum or Plasma Ordered By: David Miramontes on 08-31-2024 Anion gap [Moles/Vol] 10 mmol/L 5-15 [facility] BUN/creatinine ratioOrdered By: David Miramontes on 08-31-2024 Urea nitrogen/Creatinine [Mass ratio] 12.4 mg/mg 10-20 [facility] Carbon dioxide, total [Moles /volume] in Central venous bloodOrdered By: David Miramontes on 08-31-2024 CO2 [Moles/Vol] 26.4 mmol/L 21.0-32.0 [facility] Chloride assayOrdered By: Mayra Miramontes on 08-31-2024 Chloride [Moles/Vol] 103 mmol/L 98-108 [facility] Glomerular filtration rate ( GFR) estimation/1.73 sq m using serum, plasma, or whole bOrdered By: David Miramontes on 08-31-2024 GFR/1.73 sq M.predicted among non-blacks MDRD (S/P/Bld) [Vol rate/Area] 80 mL/min/{1.73_m2} >60 [facility] Comment on above: mL/min/1.73m2 CKD-EP I Creatinine Equation (2020) Potassium measurement (mass/ volume)Ordered By: David Miramontes on 08-31-2024 Potassium (Unsp spec) [Mass/Vol] 4.2 mmol/L 3.3-5.1 [facility] Serum creatinine measurement (mass/volume)Ordered By: David Miramontes on 08-31-2024 Creatinine [Mass/Vol] 0.93 mg/dL 0.70-1.20 [facility] Serum glucose measurement (m ass/volume)Ordered By: David Miramontes on 08-31-2024 Glucose [Mass/Vol] 86 mg/dL 70-99 [facility] Serum or plasma calcium siobhan urement (mass/volume)Ordered By: David Miramontes on 08-31-2024 Calcium [Mass/Vol] 9.4 mg/dL 7.6-11.0 [facility] Serum or plasma urea nitroge n measurement (mass/volume)Ordered By: David Miramontes on 08-31-2024 Urea nitrogen [Mass/Vol] 12 mg/dL 4-19 [facility] Sodium levelOrdered By: Frandy carleen Kulwinder on 08-31-2024 Sodium [Moles/Vol] 139 mmol/L 133-145 [facility] Absolute lymphocyte countOrd ered By: David Miramontes on 08-22-2024 Lymphocytes Auto (Unsp spec) [#/Vol] 1.28 10*3/uL 0.83-4.51 [facility] Absolute neutrophil countOrd ered By: David Miramontes on 08-22-2024 Neutrophils (Bld) [#/Vol] 5.0 10*3/uL 2.0-7.7 [facility] Anion gap in Serum or Plasma Ordered By: David Miramontes on 08-22-2024 Anion gap [Moles/Vol] 8 mmol/L 5-15 [facility] Automated lymphocyte count a s percentage of total leukocytesOrdered By: David Miramontes on 08-22-2024 Lymphocytes/100 WBC Auto (Unsp spec) 17.6 % Low 19-41 [facility] BUN/creatinine ratioOrdered By: David Miramontes on 08-22-2024 Urea nitrogen/Creatinine [Mass ratio] 13.7 mg/mg 10-20 [facility] Basophil percentageOrdered B y: David Miramontes on 08-22-2024 Basophils/100 WBC (Bld) 0.7 % 0-1 [facility] Bilirubin, totalOrdered By: David Miramontes on 08-22-2024 Bilirubin [Mass/Vol] 0.31 mg/dL 0.00-1.30 [facility] Carbon dioxide, total [Moles /volume] in Central venous bloodOrdered By: David Miramontes on 08-22-2024 CO2 [Moles/Vol] 28.1 mmol/L 21.0-32.0 [facility] Chloride assayOrdered By: Mayra Miramontes on 08-22-2024 Chloride [Moles/Vol] 107 mmol/L 98-108 [facility] Eosinophil percentageOrdered By: David Miramontes on 08-22-2024 Eosinophils/100 WBC (Bld) 2.6 % 0-5 [facility] Erythrocyte distribution wid th ratioOrdered By: danay Miramontes on 08-22-2024 Erythrocyte distribution width (RBC) [Ratio] 15.3 % High 11.6-14.6 [facility] Erythrocyte distribution wid th standard deviationOrdered By: David Miramontes on 08-22-2024 Erythrocyte distribution width (RBC) [Ratio] 57.1 fl High 35.1-43.9 [facility] Glomerular filtration rate ( GFR) estimation/1.73 sq m using serum, plasma, or whole bOrdered By: David Miramontes on 08-22-2024 GFR/1.73 sq M.predicted among non-blacks MDRD (S/P/Bld) [Vol rate/Area] 78 mL/min/{1.73_m2} >60 [facility] Comment on above: mL/min/1.73m2 CKD-EP I Creatinine Equation (2020) Hematocrit Auto (Bld) [Volum e fraction]Ordered By: David Miramontes on 08-22-2024 Hematocrit (Bld) [Volume fraction] 41.1 % 40-54 [facility] Hemoglobin measurementOrdere d By: David Miramontes on 08-22-2024 Hemoglobin (Bld) [Mass/Vol] 12.9 g/dL Low 13.0-16.5 [facility] Immature granulocytes/100 WB C Auto (Bld)Ordered By: David Miramontes on 08-22-2024 Immature granulocytes/100 WBC (Bld) 0.600 % 0.0-0.9 [facility] Comment on above: IG% - Immature Granu locytes (promyelocytes, myelocytes and metamyelocytes) > 1% indicates that a LEFT SHIFT is Present. Laboratory - Chemistry and C hemistry - challengeOrdered By: David Miramontes on 08-22-2024 AST [Catalytic activity/Vol] 34 U/L <38 [facility] MCV (mean corpuscular volume ) determinationOrdered By: David Miramontes on 08-22-2024 MCV (RBC) [Entitic vol] 102.5 fL High 80-94 [facility] Mean corpuscular hemoglobin (MCH) determinationOrdered By: David Miramontes on 08-22-2024 MCH (RBC) [Entitic mass] 32.2 pg High 27.0-32.0 [facility] Mean corpuscular hemoglobin concentration (MCHC) determinationOrdered By: David Miramontes on 08-22-2024 MCHC (RBC) [Mass/Vol] 31.4 g/dL Low 32-36 [facility] Mean platelet volume determi nationOrdered By: David Pinkamnatereza on 08-22-2024 Platelet mean volume (Bld) [Entitic vol] 11.4 fL 6.2-12.0 [facility] Monocyte percentageOrdered B y: David Miramontes on 08-22-2024 Monocytes/100 WBC (Bld) 10.0 % 0-10 [facility] Neutrophil percentageOrdered By: David Miramontes on 08-22-2024 Neutrophils/100 WBC (Bld) 68.5 % 47-70 [facility] Nucleated red blood cell per centageOrdered By: David Miramontes on 08-22-2024 Nucleated RBC/100 WBC (Bld) [Ratio] 0 % 0-5 [facility] Platelet countOrdered By: Mayra Miramontes on 08-22-2024 Platelets (Bld) [#/Vol] 170 10*3/uL 150-450 [facility] Potassium measurement (mass/ volume)Ordered By: David Miramontes on 08-22-2024 Potassium (Unsp spec) [Mass/Vol] 3.8 mmol/L 3.3-5.1 [facility] RBC Auto (Bld) [#/Vol]Ordere d By: David Miramontes on 08-22-2024 RBC (Bld) [#/Vol] 4.01 10*6/uL Low 4.6-6.2 [facility] Serum creatinine measurement (mass/volume)Ordered By: David Miramontes on 08-22-2024 Creatinine [Mass/Vol] 0.96 mg/dL 0.70-1.20 [facility] Serum globulin measurementOr dered By: David Miramontes on 08-22-2024 Globulin (S) [Mass/Vol] 2.7 g/dL 2.2-4.2 [facility] Serum glucose measurement (m ass/volume)Ordered By: David Miramontes on 08-22-2024 Glucose [Mass/Vol] 82 mg/dL 70-99 [facility] Serum or plasma alanine grant otransferase (ALT) measurementOrdered By: David Miramontes on 08-22-2024 ALT [Catalytic activity/Vol] 13 U/L <47 [facility] Serum or plasma albumin siobhan urement (mass/volume)Ordered By: David Miramontes on 08-22-2024 Albumin [Mass/Vol] 3.5 g/dL 3.4-4.8 [facility] Serum or plasma albumin/glob ulin mass ratioOrdered By: David Miramontes on 08-22-2024 Albumin/Globulin [Mass ratio] 1.3 {ratio} 0.9-2.4 [facility] Serum or plasma alkaline deven sphatase measurementOrdered By: David Miramontes on 08-22-2024 ALP [Catalytic activity/Vol] 106 U/L 40-129 [facility] Serum or plasma calcium siobhan urement (mass/volume)Ordered By: David Miramontes on 08-22-2024 Calcium [Mass/Vol] 8.9 mg/dL 7.6-11.0 [facility] Serum or plasma urea nitroge n measurement (mass/volume)Ordered By: David Miramontes on 08-22-2024 Urea nitrogen [Mass/Vol] 13 mg/dL 4-19 [facility] Sodium levelOrdered By: Frandy chavezyonatan Kulwinder on 08-22-2024 Sodium [Moles/Vol] 142 mmol/L 133-145 [facility] Total proteinOrdered By: Lg rupinderingris Miramontes on 08-22-2024 Protein [Mass/Vol] 6.2 g/dL 5.9-8.4 [facility] White blood cell (WBC) count Ordered By: David Miramontes on 08-22-2024 WBC (Bld) [#/Vol] 7.3 10*3/uL 4.4-11.0 [facility] Anion gap in Serum or Plasma Ordered By: David Miramontes on 08-02-2024 Anion gap [Moles/Vol] 11 mmol/L 5-15 [facility] BUN/creatinine ratioOrdered By: David Miramontes on 08-02-2024 Urea nitrogen/Creatinine [Mass ratio] 12.3 mg/mg 10-20 [facility] Carbon dioxide, total [Moles /volume] in Central venous bloodOrdered By: David Miramontes on 08-02-2024 CO2 [Moles/Vol] 24.2 mmol/L 21.0-32.0 [facility] Chloride assayOrdered By: Mayra waynecarleen Miramontes on 08-02-2024 Chloride [Moles/Vol] 105 mmol/L 98-108 [facility] Glomerular filtration rate ( GFR) estimation/1.73 sq m using serum, plasma, or whole bOrdered By: David Miramontes on 08-02-2024 GFR/1.73 sq M.predicted among non-blacks MDRD (S/P/Bld) [Vol rate/Area] 73 mL/min/{1.73_m2} >60 [facility] Comment on above: mL/min/1.73m2 CKD-EP I Creatinine Equation (2020) Potassium measurement (mass/ volume)Ordered By: David Miramontes on 08-02-2024 Potassium (Unsp spec) [Mass/Vol] 3.7 mmol/L 3.3-5.1 [facility] Serum creatinine measurement (mass/volume)Ordered By: David Miramontes on 08-02-2024 Creatinine [Mass/Vol] 1.01 mg/dL 0.70-1.20 [facility] Serum glucose measurement (m ass/volume)Ordered By: David Miramontes on 08-02-2024 Glucose [Mass/Vol] 140 mg/dL High 70-99 [facility] Serum or plasma calcium siobhan urement (mass/volume)Ordered By: David Miramontes on 08-02-2024 Calcium [Mass/Vol] 9.1 mg/dL 7.6-11.0 [facility] Serum or plasma urea nitroge n measurement (mass/volume)Ordered By: David Miramontes on 08-02-2024 Urea nitrogen [Mass/Vol] 12 mg/dL 4-19 [facility] Sodium levelOrdered By: Frandy chavezyonatan Kulwinder on 08-02-2024 Sodium [Moles/Vol] 141 mmol/L 133-145 [facility] Absolute lymphocyte countOrd ered By: David Miramontes on 08-01-2024 Lymphocytes Auto (Unsp spec) [#/Vol] 1.39 10*3/uL 0.83-4.51 [facility] Absolute neutrophil countOrd ered By: David Miramontes on 08-01-2024 Neutrophils (Bld) [#/Vol] 4.8 10*3/uL 2.0-7.7 [facility] Automated lymphocyte count a s percentage of total leukocytesOrdered By: David Miramontes on 08-01-2024 Lymphocytes/100 WBC Auto (Unsp spec) 18.9 % Low 19-41 [facility] Basophil percentageOrdered B y: David Miramontes on 08-01-2024 Basophils/100 WBC (Bld) 0.4 % 0-1 [facility] Eosinophil percentageOrdered By: David Miramontes on 08-01-2024 Eosinophils/100 WBC (Bld) 2.6 % 0-5 [facility] Erythrocyte distribution wid th ratioOrdered By: David Miramontes on 08-01-2024 Erythrocyte distribution width (RBC) [Ratio] 15.5 % High 11.6-14.6 [facility] Erythrocyte distribution wid th standard deviationOrdered By: David Miramontes on 08-01-2024 Erythrocyte distribution width (RBC) [Ratio] 57.9 fl High 35.1-43.9 [facility] Hematocrit Auto (Bld) [Volum e fraction]Ordered By: David Miramontes on 08-01-2024 Hematocrit (Bld) [Volume fraction] 40.2 % 40-54 [facility] Hemoglobin measurementOrdere d By: David Miramontes on 08-01-2024 Hemoglobin (Bld) [Mass/Vol] 12.6 g/dL Low 13.0-16.5 [facility] Immature granulocytes/100 WB C Auto (Bld)Ordered By: waynekanabingris Miramontes on 08-01-2024 Immature granulocytes/100 WBC (Bld) 0.400 % 0.0-0.9 [facility] Comment on above: IG% - Immature Granu locytes (promyelocytes, myelocytes and metamyelocytes) > 1% indicates that a LEFT SHIFT is Present. MCV (mean corpuscular volume ) determinationOrdered By: David Miramontes on 08-01-2024 MCV (RBC) [Entitic vol] 100.8 fL High 80-94 [facility] Mean corpuscular hemoglobin (MCH) determinationOrdered By: David Miramontes on 08-01-2024 MCH (RBC) [Entitic mass] 31.6 pg 27.0-32.0 [facility] Mean corpuscular hemoglobin concentration (MCHC) determinationOrdered By: danay Miramontes on 08-01-2024 MCHC (RBC) [Mass/Vol] 31.3 g/dL Low 32-36 [facility] Mean platelet volume determi nationOrdered By: David Miramontes on 08-01-2024 Platelet mean volume (Bld) [Entitic vol] 11.8 fL 6.2-12.0 [facility] Monocyte percentageOrdered B y: David Miramontes on 08-01-2024 Monocytes/100 WBC (Bld) 12.5 % High 0-10 [facility] Neutrophil percentageOrdered By: David Miramontes on 08-01-2024 Neutrophils/100 WBC (Bld) 65.2 % 47-70 [facility] Nucleated red blood cell per centageOrdered By: David Miramontes on 08-01-2024 Nucleated RBC/100 WBC (Bld) [Ratio] 0 % 0-5 [facility] Platelet countOrdered By: Mayra waynecarleen Miramontes on 08-01-2024 Platelets (Bld) [#/Vol] 182 10*3/uL 150-450 [facility] RBC Auto (Bld) [#/Vol]Ordere d By: David Miramontes on 08-01-2024 RBC (Bld) [#/Vol] 3.99 10*6/uL Low 4.6-6.2 [facility] White blood cell (WBC) count Ordered By: David Miramontes on 08-01-2024 WBC (Bld) [#/Vol] 7.4 10*3/uL 4.4-11.0 [facility] Absolute lymphocyte countOrd ered By: David Miramontes on 07-21-2024 Lymphocytes Auto (Unsp spec) [#/Vol] 1.21 10*3/uL 0.83-4.51 [facility] Absolute neutrophil countOrd ered By: David Miramontes on 07-21-2024 Neutrophils (Bld) [#/Vol] 5.1 10*3/uL 2.0-7.7 [facility] Anion gap in Serum or Plasma Ordered By: David Miramontes on 07-21-2024 Anion gap [Moles/Vol] 10 mmol/L 5-15 [facility] Automated lymphocyte count a s percentage of total leukocytesOrdered By: David Miramontes on 07-21-2024 Lymphocytes/100 WBC Auto (Unsp spec) 16.7 % Low 19-41 [facility] BUN/creatinine ratioOrdered By: David Miramontes on 07-21-2024 Urea nitrogen/Creatinine [Mass ratio] 16.2 mg/mg 10-20 [facility] Basophil percentageOrdered B y: David Miramontes on 07-21-2024 Basophils/100 WBC (Bld) 0.4 % 0-1 [facility] Carbon dioxide, total [Moles /volume] in Central venous bloodOrdered By: David Miramontes on 07-21-2024 CO2 [Moles/Vol] 25.5 mmol/L 21.0-32.0 [facility] Chloride assayOrdered By: Mayra Miramontes on 07-21-2024 Chloride [Moles/Vol] 106 mmol/L 98-108 [facility] Eosinophil percentageOrdered By: danay Miramontes on 07-21-2024 Eosinophils/100 WBC (Bld) 1.4 % 0-5 [facility] Erythrocyte distribution wid th ratioOrdered By: danay Miramontes on 07-21-2024 Erythrocyte distribution width (RBC) [Ratio] 15.4 % High 11.6-14.6 [facility] Erythrocyte distribution wid th standard deviationOrdered By: waynekanabingris Miramontes on 07-21-2024 Erythrocyte distribution width (RBC) [Ratio] 57.9 fl High 35.1-43.9 [facility] Glomerular filtration rate ( GFR) estimation/1.73 sq m using serum, plasma, or whole bOrdered By: David Miramontes on 07-21-2024 GFR/1.73 sq M.predicted among non-blacks MDRD (S/P/Bld) [Vol rate/Area] 67 mL/min/{1.73_m2} >60 [facility] Comment on above: mL/min/1.73m2 CKD-EP I Creatinine Equation (2020) Hematocrit Auto (Bld) [Volum e fraction]Ordered By: David Miramontes on 07-21-2024 Hematocrit (Bld) [Volume fraction] 39.0 % Low 40-54 [facility] Hemoglobin measurementOrdere d By: David Miramontes on 07-21-2024 Hemoglobin (Bld) [Mass/Vol] 12.4 g/dL Low 13.0-16.5 [facility] Immature granulocytes/100 WB C Auto (Bld)Ordered By: David Miramontes on 07-21-2024 Immature granulocytes/100 WBC (Bld) 0.400 % 0.0-0.9 [facility] Comment on above: IG% - Immature Granu locytes (promyelocytes, myelocytes and metamyelocytes) > 1% indicates that a LEFT SHIFT is Present. MCV (mean corpuscular volume ) determinationOrdered By: David Miramontes on 07-21-2024 MCV (RBC) [Entitic vol] 101.0 fL High 80-94 [facility] Mean corpuscular hemoglobin (MCH) determinationOrdered By: [facility] Centeringris Pinktereza on 07-21-2024 MCH (RBC) [Entitic mass] 32.1 pg High 27.0-32.0 [facility] Mean corpuscular hemoglobin concentration (MCHC) determinationOrdered By: [facility] Cent[facility] Pinktereza on 07-21-2024 MCHC (RBC) [Mass/Vol] 31.8 g/dL Low 32-36 [facility] Mean platelet volume determi nationOrdered By: [facility] Centeringris Miramontes on 07-21-2024 Platelet mean volume (Bld) [Entitic vol] 11.7 fL 6.2-12.0 [facility] Monocyte percentageOrdered B y: David Miramontes on 07-21-2024 Monocytes/100 WBC (Bld) 11.3 % High 0-10 [facility] Neutrophil percentageOrdered By: [facility] Joesphtereza on 07-21-2024 Neutrophils/100 WBC (Bld) 69.8 % 47-70 [facility] Nucleated red blood cell per centageOrdered By: [facility] Centeringris Miramontes on 07-21-2024 Nucleated RBC/100 WBC (Bld) [Ratio] 0 % 0-5 [facility] Platelet countOrdered By: danay Pinktereza on 07-21-2024 Platelets (Bld) [#/Vol] 172 10*3/uL 150-450 [facility] Potassium measurement (mass/ volume)Ordered By: [facility] Cent[facility] Pinktereza on 07-21-2024 Potassium (Unsp spec) [Mass/Vol] 3.9 mmol/L 3.3-5.1 [facility] RBC Auto (Bld) [#/Vol]Ordere d By: David Joesphiman on 07-21-2024 RBC (Bld) [#/Vol] 3.86 10*6/uL Low 4.6-6.2 [facility] Serum creatinine measurement (mass/volume)Ordered By: David Pinkamnatereza on 07-21-2024 Creatinine [Mass/Vol] 1.08 mg/dL 0.70-1.20 [facility] Serum glucose measurement (m ass/volume)Ordered By: David Miramontes on 07-21-2024 Glucose [Mass/Vol] 90 mg/dL 70-99 [facility] Serum or plasma calcium siobhan urement (mass/volume)Ordered By: Mayradanay Pinkamnatereza on 07-21-2024 Calcium [Mass/Vol] 9.1 mg/dL 7.6-11.0 [facility] Serum or plasma urea nitroge n measurement (mass/volume)Ordered By: David Miramontes on 07-21-2024 Urea nitrogen [Mass/Vol] 18 mg/dL 4-19 [facility] Sodium levelOrdered By: Frandy durant Joesphamnatereza on 07-21-2024 Sodium [Moles/Vol] 141 mmol/L 133-145 [facility] TSH DL <= 0.005 mIU/L QnOrde red By: Vickyingris Pinkamnatereza on 07-21-2024 TSH Qn 2.450 uIU/mL 0.300-4.200 [facility] White blood cell (WBC) count Ordered By: David Miramontes on 07-21-2024 WBC (Bld) [#/Vol] 7.3 10*3/uL 4.4-11.0 [facility] BLADDER SCANon 07-14-2024 PVR 59 Cc [facility] BLADDER SCANOrdered By: Dayo Perez on 07-14-2024 [facility] CNOVon 07-14-2024 CNOV Office Visit (AKURFL) KEL DILLARD ([id number]) 1940 M Date Time Provider Department 07/14/24 9:00 AM DIANA ARANGO During your visit today, we recorded the following information about you: Diana Arango APRN.[employer] 07/14/2024 9:11 AM Signed [facility] Urological AND Kidney [facility] [place] [facility] NEW PATIENT UROLOGY VISIT 07/14/2024 [...] (more content not included)... Normal [facility] CYTOLOGY NON-GYNon 5 AP DISCLAIMER Normal [facility] Comment on above: Order Comment: Speci men Type: URINE SPECIMEN Ordering Facility: [facility] Address: [address] [place] [address] Result Comment: Hussain blanco Developed Test (LDT) Disclaimer: Performance characteristics of immunohistochemical, immunofluorescent, and chromogenic in-situ hybridization tests have been determined by the performing laboratory within [facility]'s [facility]ell Lucas Pathology and Laboratory Medicine Department ([facility]3], [facility], [facility], [facility], [facility], [facility], or [facility]) in a manner consistent with CLIA requirements. One or more of these tests may not have been cleared or approved by the FDA. [facility] is regulated under CLIA as qualified to perform high-complexity testing. These tests are used for clinical purposes. These should not be regarded as investigational or for research. Positive and negative controls stain appropriately. Performed By: #### C [facility] #### [facility] CLIA [id number] [address] [place] [address] CASE REPORT Normal [facility] Comment on above: Order Comment: Speci men Type: URINE SPECIMEN [facility]ing Facility: [facility] Address: [address] [place] [address] Result Comment: [facility] Cytology Report Case: [id number] Authorizing Provider: Diana Arango Collected: 07/14/2024 09:01 AM MATTHEW Andres Ordering Location: [place] [facility] Received: 07/17/2024 03:50 AM Pathologist: Rosy Cavazos MD Specimen: Urine, Midstream Performed By: #### C YTONON #### [facility] CLIA [id number] [address] CLINICAL HISTORY gross hematuria Normal [facility] Comment on above: Order Comment: Speci men Type: URINE SPECIMEN Ordering Facility: [facility] Address: [address] [place] [address] Performed By: #### C YTONON #### [facility] CLIA [id number] [address] [place] [address] FINAL DIAGNOSIS Normal [facility] Comment on above: Order Comment: Speci men Type: URINE SPECIMEN [facility]ing Facility: [facility] Address: [address] [place] [address] Result Comment: A - Urine, Midstream Negative for high-grade urothelial carcinoma. Blood. at 1046 EDT Performed By: #### C YTONON #### [facility] CLIA [id number] [address] [place] [address] FINAL PERFORMING LAB Normal [facility] Comment on above: Order Comment: Speci men Type: URINE SPECIMEN [facility]ing Facility: [facility] Address: [address] [place] [address] Result Comment: Tech nical component, eyeglass frames polisher screening performed at: [facility], [address] [place] [address] CLIA: [id number] Diagnostic interpretation performed at: [facility], [address] [address] CLIA# [id number] Emission Technician: Josiah Ochoa MD Performed By: #### C YTONON #### [facility] CLIA [id number] [address] GROSS DESCRIPTION Normal [facility] Comment on above: Order Comment: Speci men Type: URINE SPECIMEN [facility]ing Facility: [facility] Address: [address] [place] [address] Result Comment: A. U rine, Midstream 7.5 cc cloudy yellow fluid. ThinPrep prepared. Performed By: #### C YTONON #### [facility] CLIA [id number] [address] [facility] UA DIP, URINE (POC)on 2024 BILIRUBIN UA (POCT) Negative Negative [facility] CLARITY UA (POCT) Clear [facility] COLOR UA (POCT) Yellow [facility] GLUCOSE UA (POCT) Negative Negative mg/dL [facility] Hemoglobin Ql (U) Trace-intact Abnormal Negative [facility] Interpretation and review of laboratory results Abnormal [facility] KETONE UA (POCT) Negative Negative mg/dL [facility] LEUKOCYTES UA (POCT) Negative Negative [facility] NITRITE UA (POCT) Negative Negative [facility] PH UA (POCT) 5.5 4.5 - 8.0 [facility] Protein Ql (U) 30 mg/dL Abnormal Negative [facility] SPECIFIC GRAVITY UA (POCT) 1.025 1.005 - 1.030 [facility] UROBILINOGEN UA (POCT) 0.2 Debbie l E.U./dL [facility] Location:[facility], [address] [place] [address], [address] [place] [address] POINT OF CARE [facility] Serum or plasma uric acid me asurement (mass/volume)Ordered By: David Miramontes on 06-23-2024 Urate [Mass/Vol] 4.2 mg/dL 3.5-7.2 [facility] Comment on above: The drugs N-Acetylcy steine and Metamizole may falsely depress this assay. Absolute lymphocyte countOrd ered By: David Guerratereza on 06-05-2024 Lymphocytes Auto (Unsp spec) [#/Vol] 1.05 10*3/uL 0.83-4.51 [facility] Absolute neutrophil countOrd ered By: David Guerratereza on 06-05-2024 Neutrophils (Bld) [#/Vol] 4.8 10*3/uL 2.0-7.7 [facility] Anion gap in Serum or Plasma Ordered By: David Pinkamnatereza on 06-05-2024 Anion gap [Moles/Vol] 11 mmol/L 5-15 [facility] Automated lymphocyte count a s percentage of total leukocytesOrdered By: David Pinkamnatereza on 06-05-2024 Lymphocytes/100 WBC Auto (Unsp spec) 15.8 % Low 19-41 [facility] BUN/creatinine ratioOrdered By: [facility] Miramontes on 06-05-2024 Urea nitrogen/Creatinine [Mass ratio] 9.3 mg/mg Low 10-20 [facility] Basophil percentageOrdered B y: David Joesphamnatereza on 06-05-2024 Basophils/100 WBC (Bld) 1.1 % High 0-1 [facility] Carbon dioxide, total [Moles /volume] in Central venous bloodOrdered By: David Pinkamnatereza on 06-05-2024 CO2 [Moles/Vol] 26.8 mmol/L 21.0-32.0 [facility] Chloride assayOrdered By: waynecarleen Miramontes on 06-05-2024 Chloride [Moles/Vol] 101 mmol/L 98-108 [facility] Eosinophil percentageOrdered By: waynekanabingris Pinkamnatereza on 06-05-2024 Eosinophils/100 WBC (Bld) 2.3 % 0-5 [facility] Erythrocyte distribution wid th (RBC) [Ratio]Ordered By: David Pinkamnatereza on 06-05-2024 Erythrocyte distribution width (RBC) [Entitic vol] 55.4 fL High 35.1-43.9 [facility] Erythrocyte distribution wid th ratioOrdered By: waynekanabingris Pinkamnatereza on 06-05-2024 Erythrocyte distribution width (RBC) [Ratio] 15.0 % High 11.6-14.6 [facility] Erythrocyte distribution wid th standard deviationOrdered By: David Miramontes on 06-05-2024 Erythrocyte distribution width (RBC) [Ratio] 55.4 fl High 35.1-43.9 [facility] GFR/1.73 sq M.predicted eleazar g non-blacks MDRD (S/P/Bld) [Vol rate/Area]Ordered By: David Miramontes on 06-05-2024 Estimated GFR (MDRD) Non-Af Amer 48 Low >60 [facility] Comment on above: mL/min/1.73m2 CKD-EP I Creatinine Equation (2020) Glomerular filtration rate ( GFR) estimation/1.73 sq m using serum, plasma, or whole bOrdered By: David Miramontes on 06-05-2024 GFR/1.73 sq M.predicted among non-blacks MDRD (S/P/Bld) [Vol rate/Area] 48 mL/min/{1.73_m2} Low >60 [facility] Comment on above: mL/min/1.73m2 CKD-EP I Creatinine Equation (2020) Hematocrit Auto (Bld) [Volum e fraction]Ordered By: David Miramontes on 06-05-2024 Hematocrit (Bld) [Volume fraction] 41.8 % 40-54 [facility] Hemoglobin measurementOrdere d By: David Miramontes on 06-05-2024 Hemoglobin (Bld) [Mass/Vol] 13.3 g/dL 13.0-16.5 [facility] Immature granulocytes/100 WB C Auto (Bld)Ordered By: David Miramontes on 06-05-2024 Immature granulocytes/100 WBC (Bld) 0.300 % 0.0-0.9 [facility] Comment on above: IG% - Immature Granu locytes (promyelocytes, myelocytes and metamyelocytes) > 1% indicates that a LEFT SHIFT is Present. Lymphocytes Auto (Unsp spec) [#/Vol]Ordered By: David Miramontes on 06-05-2024 Lymphocytes (Bld) [#/Vol] 1.05 10*3/uL 0.83-4.51 [facility] Lymphocytes/100 WBC Auto (Un sp spec)Ordered By: David Miramontes on 06-05-2024 Lymphocytes/100 WBC (Bld) 15.8 % Low 19-41 [facility] MCV (mean corpuscular volume ) determinationOrdered By: David Miramontes on 06-05-2024 MCV (RBC) [Entitic vol] 100.5 fL High 80-94 [facility] Mean corpuscular hemoglobin (MCH) determinationOrdered By: David Miramontes on 06-05-2024 MCH (RBC) [Entitic mass] 32.0 pg 27.0-32.0 [facility] Mean corpuscular hemoglobin concentration (MCHC) determinationOrdered By: David Miramontes on 06-05-2024 MCHC (RBC) [Mass/Vol] 31.8 g/dL Low 32-36 [facility] Mean platelet volume determi nationOrdered By: David Miramontes on 06-05-2024 Platelet mean volume (Bld) [Entitic vol] 11.3 fL 6.2-12.0 [facility] Monocyte percentageOrdered B y: David Miramontes on 06-05-2024 Monocytes/100 WBC (Bld) 8.9 % 0-10 [facility] Neutrophil percentageOrdered By: David Miramontes on 06-05-2024 Neutrophils/100 WBC (Bld) 71.6 % High 47-70 [facility] Nucleated red blood cell per centageOrdered By: David Miramontes on 06-05-2024 Nucleated RBC/100 WBC (Bld) [Ratio] 0 % 0-5 [facility] Platelet countOrdered By: Mayra Miramontes on 06-05-2024 Platelets (Bld) [#/Vol] 216 10*3/uL 150-450 [facility] Potassium (Unsp spec) [Mass/ Vol]Ordered By: David Miramontes on 06-05-2024 Potassium [Moles/Vol] 3.9 mmol/L 3.3-5.1 [facility] Potassium measurement (mass/ volume)Ordered By: David Miramontes on 06-05-2024 Potassium (Unsp spec) [Mass/Vol] 3.9 mmol/L 3.3-5.1 [facility] RBC Auto (Bld) [#/Vol]Ordere d By: David Miramontes on 06-05-2024 RBC (Bld) [#/Vol] 4.16 10*6/uL Low 4.6-6.2 [facility] Serum creatinine measurement (mass/volume)Ordered By: David Miramontes on 06-05-2024 Creatinine [Mass/Vol] 1.42 mg/dL High 0.70-1.20 [facility] Serum glucose measurement (m ass/volume)Ordered By: David Miramontes on 06-05-2024 Glucose [Mass/Vol] 85 mg/dL 70-99 [facility] Serum or plasma calcium siobhan urement (mass/volume)Ordered By: David Miramontes on 06-05-2024 Calcium [Mass/Vol] 9.0 mg/dL 7.6-11.0 [facility] Serum or plasma urea nitroge n measurement (mass/volume)Ordered By: David Miramontes on 06-05-2024 Urea nitrogen [Mass/Vol] 13 mg/dL 4-19 [facility] Sodium levelOrdered By: Frandy Miramontes on 06-05-2024 Sodium [Moles/Vol] 139 mmol/L 133-145 [facility] White blood cell (WBC) count Ordered By: David Miramontes on 06-05-2024 WBC (Bld) [#/Vol] 6.6 10*3/uL 4.4-11.0 [facility] Amorphous sediment detection in urine sediment by light microscopyOrdered By: David Miramontes on 05-30-2024 Amorphous sediment LM Ql (Urine sed) 1+ [facility] Ankle Brachial Indexon 05-[address] [facility] [address] [place] [address] Ankle Brachial Index 05/30/24 0904 MR#: [id number] Acct: [id number] Name: GILMAKEL Angel Rep #: [id number] : 1940 84 From: Josiah Klein MD Attending Dr: Dr. David Miramontes MD Status: REG CLI Ordering Dr: David Miramontes MD Date: 05/30/24 Location: [facility] Sex: M C Admitted: Reason For [...] Referring Physician: DAVID MIRAMONTES MD Performed By: Lalo, Yasmine RVT, RDCS 05/30/24 1543 Date Josiah Klein MD CC: Dr. David Miramontes MD Date Dictated: 05/30/2404 Date Transcribed: 05/30/241542 [employer] [place]: Signed Normal [facility] Arterial study reportOrdered By: Josiah Klein on 05-30-2024 Noninvasive arteriosclerosis study report [facility] [address] [place] [address] Ankle Brachial Index 05/30/24 0904 MR#: [id number] Acct: [id number] Name: KEL DILLARD Rep #:[id number] : 1940 84 From: Josiah Naranjo Attending Dr: Dr. David Miramontes MD Status: REG CLI Ordering Dr: David Miramontes MD Date: 05/30/24 Location: [facility] Sex: M C Admitted: Reason For [...] Dictated: 05/30/24 0904 Date Transcribed: 05/30/24 154 [employer] [place]: Signed [facility] Work Phone: Bilirubin Test strip Ql (U)O rdered By: David Miramontes on 05-30-2024 Bilirubin Ql (U) Negative Negative [facility] Epithelial cells.squamous LM Ql (Urine sed)Ordered By: David Miramontes on 05-30-2024 Epithelial cells.squamous LM.HPF (Urine sed) [#/Area] 0 /[HPF] 0-5 [facility] Glucose Ql (U)Ordered By: Mayra Miramontes on 05-30-2024 Urine Glucose (UA) Normal mg/dl Normal [facility] Ketones Test strip Ql (U)Ord ered By: David Miramontes on 05-30-2024 Ketones Ql (U) Negative Negative [facility] Microscopic analysis of urin e for red blood cells (RBC)Ordered By: David Miramontes on 05-30-2024 Microscopic analysis of urine for red blood cells (RBC) > 100 SEEN /hpf 0-5 [facility] Urine RBC > 100 SEEN /hpf 0-5 [facility] Mucus LM Ql (Urine sed)Order ed By: David Miramontes on 05-30-2024 Mucus Ql (Urine sed) 0 SEEN /hpf [facility] Nitrite Test strip Ql (U)Ord ered By: David Miramontes on 05-30-2024 Nitrite Ql (U) Positive High Negative [facility] PSA, total screeningOrdered By: David Miramontes on 05-30-2024 Prostate Specific Antigen Screen 3.08 ng/mL 0.02-4.00 [facility] Comment on above: This test was [...] Protein Ql (U) 500 mg/dl High Negative [facility] Squamous epithelial cells de tection in urine sediment by light microscopyOrdered By: David Miramontes on 05-30-2024 Epithelial cells.squamous LM Ql (Urine sed) 0-5 SEEN /hpf 0-5 [facility] Urine blood detectionOrdered By: David Miramontes on 05-30-2024 Urine Occult Blood 250 /ul High Negative [facility] Urine clarityOrdered By: Lg Miramontes on 05-30-2024 Clarity (U) Cloudy Clear [facility] Urine color determinationOrd ered By: David Miramontes on 05-30-2024 Color (U) Brown Yellow [facility] Urine cultureOrdered By: Lg Miramontes on 05-30-2024 Bacteria identified Cx Nom (U) Proteus mirabilis Abnormal [facility] Urine glucose detectionOrder ed By: David Miramontes on 05-30-2024 Glucose Ql (U) Normal mg/dl Normal [facility] Urine leukocyte esterase det ection by dipstickOrdered By: David Miramontes on 05-30-2024 Leukocyte esterase Test strip Ql (U) 500 /ul High Negative [facility] Urine pHOrdered By: Leo Miramontes on 05-30-2024 pH (U) 6.5 [pH] 5.0 - 8.0 [facility] Urine sediment bacteria coun t by microscopy (number/high power field)Ordered By: David Miramontes on 05-30-2024 Bacteria LM.HPF (Urine sed) [#/Area] 2 /[HPF] None Seen [facility] Urine specific gravity measu rementOrdered By: David Miramontes on 05-30-2024 Specific gravity (U) [Rel density] 1.015 1.002-1.030 [facility] Urine urobilinogen measureme ntOrdered By: David Miramontes on 05-30-2024 Urobilinogen Ql (U) 1 mg/dl High Normal [facility] Urobilinogen Ql (U)Ordered B y: David Miramontes on 05-30-2024 Urobilinogen (U) [Mass/Vol] 1 mg/dL High Normal [facility] White blood cell countOrdere d By: David Miramontes on 05-30-2024 Urine WBC 50-100 SEEN /hpf 0-5 [facility] White blood cell count 50-100 SEEN /hpf 0-5 [facility] Absolute lymphocyte countOrd ered By: David Miramontes on 05-22-2024 Lymphocytes Auto (Unsp spec) [#/Vol] 1.26 10*3/uL 0.83-4.51 [facility] Absolute neutrophil countOrd ered By: David Miramontes on 05-22-2024 Neutrophils (Bld) [#/Vol] 6.5 10*3/uL 2.0-7.7 [facility] Anion gap in Serum or Plasma Ordered By: David Miramontes on 05-22-2024 Anion gap [Moles/Vol] 13 mmol/L 5-15 [facility] Automated lymphocyte count a s percentage of total leukocytesOrdered By: Vickyingris Pinkamnae on 05-22-2024 Lymphocytes/100 WBC Auto (Unsp spec) 14.0 % Low 19-41 [facility] BUN/creatinine ratioOrdered By: David Joesphamnae on 05-22-2024 Urea nitrogen/Creatinine [Mass ratio] 7.8 mg/mg Low 10-20 [facility] Basophil percentageOrdered B y: Efwayneongbe Joesphamnae on 05-22-2024 Basophils/100 WBC (Bld) 0.4 % 0-1 [facility] Bilirubin, totalOrdered By: Mayrawaynefeliciaingris Pinkamnae on 05-22-2024 Bilirubin [Mass/Vol] 0.44 mg/dL 0.00-1.30 [facility] Carbon dioxide, total [Moles /volume] in Central venous bloodOrdered By: Frandyfeliciaingris Pinkamnae on 05-22-2024 CO2 [Moles/Vol] 24.8 mmol/L 21.0-32.0 [facility] Chloride assayOrdered By: Mayra fawadbe Joesphamnae on 05-22-2024 Chloride [Moles/Vol] 104 mmol/L 98-108 [facility] Eosinophil percentageOrdered By: Frandyongbe Oleamnae on 05-22-2024 Eosinophils/100 WBC (Bld) 1.0 % 0-5 [facility] Erythrocyte distribution wid th (RBC) [Ratio]Ordered By: Efewongbe Oleghe on 05-22-2024 Erythrocyte distribution width (RBC) [Entitic vol] 54.3 fL High 35.1-43.9 [facility] Erythrocyte distribution wid th ratioOrdered By: Efewongbe Oleghe on 05-22-2024 Erythrocyte distribution width (RBC) [Ratio] 15.1 % High 11.6-14.6 [facility] Erythrocyte distribution wid th standard deviationOrdered By: Efwayneongbe Joesphghe on 05-22-2024 Erythrocyte distribution width (RBC) [Ratio] 54.3 fl High 35.1-43.9 [facility] GFR/1.73 sq M.predicted eleazar g non-blacks MDRD (S/P/Bld) [Vol rate/Area]Ordered By: David Miramontes on 05-22-2024 Estimated GFR (MDRD) Non-Af Amer 33 Low >60 [facility] Comment on above: mL/min/1.73m2 CKD-EP I Creatinine Equation (2020) Glomerular filtration rate ( GFR) estimation/1.73 sq m using serum, plasma, or whole bOrdered By: David Miramontes on 05-22-2024 GFR/1.73 sq M.predicted among non-blacks MDRD (S/P/Bld) [Vol rate/Area] 33 mL/min/{1.73_m2} Low >60 [facility] Comment on above: mL/min/1.73m2 CKD-EP I Creatinine Equation (2020) Hematocrit Auto (Bld) [Volum e fraction]Ordered By: David Miramontes on 05-22-2024 Hematocrit (Bld) [Volume fraction] 40.5 % 40-54 [facility] Hemoglobin measurementOrdere d By: David Miramontes on 05-22-2024 Hemoglobin (Bld) [Mass/Vol] 12.9 g/dL Low 13.0-16.5 [facility] Immature granulocytes/100 WB C Auto (Bld)Ordered By: David Miramontes on 05-22-2024 Immature granulocytes/100 WBC (Bld) 0.300 % 0.0-0.9 [facility] Comment on above: IG% - Immature Granu locytes (promyelocytes, myelocytes and metamyelocytes) > 1% indicates that a LEFT SHIFT is Present. Laboratory - Chemistry and C hemistry - challengeOrdered By: David Miramontes on 05-22-2024 AST [Catalytic activity/Vol] 33 U/L <38 [facility] Lymphocytes Auto (Unsp spec) [#/Vol]Ordered By: David Miramontes on 05-22-2024 Lymphocytes (Bld) [#/Vol] 1.26 10*3/uL 0.83-4.51 [facility] Lymphocytes/100 WBC Auto (Un sp spec)Ordered By: David Miramontes on 05-22-2024 Lymphocytes/100 WBC (Bld) 14.0 % Low 19-41 [facility] MCV (mean corpuscular volume ) determinationOrdered By: David Miramontes on 05-22-2024 MCV (RBC) [Entitic vol] 99.3 fL High 80-94 [facility] Mean corpuscular hemoglobin (MCH) determinationOrdered By: David Miramontes on 05-22-2024 MCH (RBC) [Entitic mass] 31.6 pg 27.0-32.0 [facility] Mean corpuscular hemoglobin concentration (MCHC) determinationOrdered By: David Miramontes on 05-22-2024 MCHC (RBC) [Mass/Vol] 31.9 g/dL Low 32-36 [facility] Mean platelet volume determi nationOrdered By: David Miramontes on 05-22-2024 Platelet mean volume (Bld) [Entitic vol] 12.1 fL High 6.2-12.0 [facility] Monocyte percentageOrdered B y: David Miramontes on 05-22-2024 Monocytes/100 WBC (Bld) 11.8 % High 0-10 [facility] Neutrophil percentageOrdered By: David Miramontes on 05-22-2024 Neutrophils/100 WBC (Bld) 72.5 % High 47-70 [facility] Nucleated red blood cell per centageOrdered By: David Miramontes on 05-22-2024 Nucleated RBC/100 WBC (Bld) [Ratio] 0 % 0-5 [facility] Platelet countOrdered By: Mayra Miramontes on 05-22-2024 Platelets (Bld) [#/Vol] 179 10*3/uL 150-450 [facility] Potassium (Unsp spec) [Mass/ Vol]Ordered By: David Miramontes on 05-22-2024 Potassium [Moles/Vol] 3.3 mmol/L 3.3-5.1 [facility] Potassium measurement (mass/ volume)Ordered By: David Miramontes on 05-22-2024 Potassium (Unsp spec) [Mass/Vol] 3.3 mmol/L 3.3-5.1 [facility] RBC Auto (Bld) [#/Vol]Ordere d By: David Miramontes on 05-22-2024 RBC (Bld) [#/Vol] 4.08 10*6/uL Low 4.6-6.2 [facility] Serum creatinine measurement (mass/volume)Ordered By: David Miramontes on 05-22-2024 Creatinine [Mass/Vol] 1.94 mg/dL High 0.70-1.20 [facility] Serum globulin measurementOr dered By: David Miramontes on 05-22-2024 Globulin (S) [Mass/Vol] 3.2 g/dL 2.2-4.2 [facility] Serum glucose measurement (m ass/volume)Ordered By: David Miramontes on 05-22-2024 Glucose [Mass/Vol] 112 mg/dL High 70-99 [facility] Serum or plasma alanine grant otransferase (ALT) measurementOrdered By: David Miramontes on 05-22-2024 ALT [Catalytic activity/Vol] 8 U/L <47 [facility] Serum or plasma albumin siobhan urement (mass/volume)Ordered By: David Miramontes on 05-22-2024 Albumin [Mass/Vol] 3.5 g/dL 3.4-4.8 [facility] Serum or plasma albumin/glob ulin mass ratioOrdered By: David Miramontes 05-22-2024 Albumin/Globulin [Mass ratio] 1.1 {ratio} 0.9-2.4 [facility] Serum or plasma alkaline deven sphatase measurementOrdered By: David Miramontes on 05-22-2024 ALP [Catalytic activity/Vol] 71 U/L 40-129 [facility] Serum or plasma calcium siobhan urement (mass/volume)Ordered By: David Miramontes on 05-22-2024 Calcium [Mass/Vol] 8.8 mg/dL 7.6-11.0 [facility] Serum or plasma urea nitroge n measurement (mass/volume)Ordered By: David Miramontes on 05-22-2024 Urea nitrogen [Mass/Vol] 15 mg/dL 4-19 [facility] Sodium levelOrdered By: Frandy Miramontes on 05-22-2024 Sodium [Moles/Vol] 141 mmol/L 133-145 [facility] Total proteinOrdered By: Lg Miramontes on 05-22-2024 Protein [Mass/Vol] 6.7 g/dL 5.9-8.4 [facility] White blood cell (WBC) count Ordered By: David Miramontes on 05-22-2024 WBC (Bld) [#/Vol] 9.0 10*3/uL 4.4-11.0 [facility] Bilirubin Test strip Ql (U)O rdered By: David Miramontes on 04-17-2024 Bilirubin Ql (U) 1 mg/dL High Negative [facility] Comment on above: COLOR OF URINE MAY A FFECT DIPSTICK RESULTS. Glucose Ql (U)Ordered By: Mayra Miramontes on 04-17-2024 Urine Glucose (UA) Normal mg/dl Normal [facility] Ketones Test strip Ql (U)Ord ered By: David Miramontes on 04-17-2024 Ketones Ql (U) 5 mg/dl High Negative [facility] Nitrite Test strip Ql (U)Ord ered By: David Miramontes on 04-17-2024 Nitrite Ql (U) Negative Negative [facility] Protein Test strip Ql (U)Ord ered By: David Miramontes on 04-17-2024 Protein Ql (U) 100 mg/dl High Negative [facility] Urine blood detectionOrdered By: David Miramontes on 04-17-2024 Urine Occult Blood 250 /ul High Negative [facility] Urine clarityOrdered By: Lg Miramontes on 04-17-2024 Clarity (U) Turbid Clear [facility] Urine color determinationOrd ered By: David Miramontes on 04-17-2024 Color (U) Kristina Yellow [facility] Urine cultureOrdered By: Lg Miramontes on 04-17-2024 Bacteria identified Cx Nom (U) Proteus mirabilis Abnormal [facility] Urine glucose detectionOrder ed By: David Miramontes on 04-17-2024 Glucose Ql (U) Normal mg/dl Normal [facility] Urine leukocyte esterase det ection by dipstickOrdered By: David Miramontes on 04-17-2024 Leukocyte esterase Test strip Ql (U) 100 /ul High Negative [facility] Urine pHOrdered By: Leo Miramontes on 04-17-2024 pH (U) 5.0 [pH] 5.0 - 8.0 [facility] Urine specific gravity measu rementOrdered By: David Miramontes on 04-17-2024 Specific gravity (U) [Rel density] 1.025 1.002-1.030 [facility] Urine urobilinogen measureme ntOrdered By: David Miramontes on 04-17-2024 Urobilinogen Ql (U) Normal mg/dl Normal [facility] Urobilinogen Ql (U)Ordered B y: David Miramontes on 04-17-2024 Urine Urobilinogen Normal mg/dl Normal [facility] Absolute lymphocyte countOrd ered By: David Miramontes on 04-13-2024 Lymphocytes Auto (Unsp spec) [#/Vol] 0.98 10*3/uL 0.83-4.51 [facility] Absolute neutrophil countOrd ered By: David Miramontes on 04-13-2024 Neutrophils (Bld) [#/Vol] 7.0 10*3/uL 2.0-7.7 [facility] Automated lymphocyte count a s percentage of total leukocytesOrdered By: David Miramontes on 04-13-2024 Lymphocytes/100 WBC Auto (Unsp spec) 11.0 % Low 19-41 [facility] Basophil percentageOrdered B y: David Mirmaontes on 04-13-2024 Basophils/100 WBC (Bld) 0.2 % 0-1 [facility] Eosinophil percentageOrdered By: David Miramontes on 04-13-2024 Eosinophils/100 WBC (Bld) 1.2 % 0-5 [facility] Erythrocyte distribution wid th (RBC) [Ratio]Ordered By: David Miramontes on 04-13-2024 Erythrocyte distribution width (RBC) [Entitic vol] 52.6 fL High 35.1-43.9 [facility] Erythrocyte distribution wid th ratioOrdered By: Vickyingris Pinkamnatereza on 04-13-2024 Erythrocyte distribution width (RBC) [Ratio] 14.6 % 11.6-14.6 [facility] Erythrocyte distribution wid th standard deviationOrdered By: fawadingris Pinkamnatereza on 04-13-2024 Erythrocyte distribution width (RBC) [Ratio] 52.6 fl High 35.1-43.9 [facility] Hematocrit Auto (Bld) [Volum e fraction]Ordered By: [facility] on 04-13-2024 Hematocrit (Bld) [Volume fraction] 47.5 % 40-54 [facility] Hemoglobin measurementOrdere d By: [facility] on 04-13-2024 Hemoglobin (Bld) [Mass/Vol] 15.1 g/dL 13.0-16.5 [facility] Immature granulocytes/100 WB C Auto (Bld)Ordered By: danay Miramontes on 04-13-2024 Immature granulocytes/100 WBC (Bld) 0.300 % 0.0-0.9 [facility] Comment on above: IG% - Immature Granu locytes (promyelocytes, myelocytes and metamyelocytes) > 1% indicates that a LEFT SHIFT is Present. Lymphocytes Auto (Unsp spec) [#/Vol]Ordered By: waynekanabingris Miramontes on 04-13-2024 Lymphocytes (Bld) [#/Vol] 0.98 10*3/uL 0.83-4.51 [facility] Lymphocytes/100 WBC Auto (Un sp spec)Ordered By: danay Miramontes on 04-13-2024 Lymphocytes/100 WBC (Bld) 11.0 % Low 19-41 [facility] MCV (mean corpuscular volume ) determinationOrdered By: Mayrawaynefeliciaingris Pinkamnatereza on 04-13-2024 MCV (RBC) [Entitic vol] 98.3 fL High 80-94 [facility] Mean corpuscular hemoglobin (MCH) determinationOrdered By: danay Pinkamnatereza on 04-13-2024 MCH (RBC) [Entitic mass] 31.3 pg 27.0-32.0 [facility] Mean corpuscular hemoglobin concentration (MCHC) determinationOrdered By: David Miramontes on 04-13-2024 MCHC (RBC) [Mass/Vol] 31.8 g/dL Low 32-36 [facility] Mean platelet volume determi nationOrdered By: David Miramontes on 04-13-2024 Platelet mean volume (Bld) [Entitic vol] 12.2 fL High 6.2-12.0 [facility] Monocyte percentageOrdered B y: David Miramontes on 04-13-2024 Monocytes/100 WBC (Bld) 9.3 % 0-10 [facility] Neutrophil percentageOrdered By: David Miramontes on 04-13-2024 Neutrophils/100 WBC (Bld) 78.0 % High 47-70 [facility] Nucleated red blood cell per centageOrdered By: David Miramontes on 04-13-2024 Nucleated RBC/100 WBC (Bld) [Ratio] 0 % 0-5 [facility] Platelet countOrdered By: Mayra fawadingris Miramontes on 04-13-2024 Platelets (Bld) [#/Vol] 160 10*3/uL 150-450 [facility] RBC Auto (Bld) [#/Vol]Ordere d By: Mayrafawadingris Miramontes on 04-13-2024 RBC (Bld) [#/Vol] 4.83 10*6/uL 4.6-6.2 [facility] Serum or plasma uric acid me asurement (mass/volume)Ordered By: David Miramontes on 04-13-2024 Urate [Mass/Vol] 7.3 mg/dL High 3.5-7.2 [facility] Comment on above: The drugs N-Acetylcy steine and Metamizole may falsely depress this assay. White blood cell (WBC) count Ordered By: David Miramontes on 04-13-2024 WBC (Bld) [#/Vol] 8.9 10*3/uL 4.4-11.0 [facility] Bilirubin Test strip Ql (U)O rdered By: David Miramontes on 04-07-2024 Bilirubin Ql (U) Negative Negative [facility] Blood urea nitrogen (BUN)/cr eatinine ratioOrdered By: David Miramontes on 04-07-2024 Urea nitrogen/Creatinine [Mass ratio] 15.7 mg/mg 10-20 [facility] Carbon dioxide measurementOr dered By: David Miramontes on 04-07-2024 CO2 [Moles/Vol] 27.0 mmol/L 21.0-32.0 [facility] Chloride measurementOrdered By: David Miramontes on 04-07-2024 Chloride [Moles/Vol] 107 mmol/L 98-107 [facility] Estimated glomerular filtrat ion rate (GFR) AmericanOrdered By: David Miramontes on 04-07-2024 Estimated GFR (MDRD) Amer 69 mL/min >60 [facility] Comment on above: GFR Calc Glomerular filtration rate ( GFR) estimationOrdered By: David Miramontes on 04-07-2024 Estimated GFR (MDRD) Non-Af Amer 57 mL/min Low >60 [facility] Comment on above: Non- GFR Calc GFR/1.73 sq M.predicted among non-blacks MDRD (S/P/Bld) [Vol rate/Area] 57 mL/min/{1.73_m2} Low >60 [facility] Comment on above: Non- GFR Calc Glucose Ql (U)Ordered By: Mayra Miramontes on 04-07-2024 Urine Glucose (UA) Normal mg/dl Normal [facility] Glucose measurementOrdered B y: David Miramontes on 04-07-2024 Glucose [Mass/Vol] 80 mg/dL 74-106 [facility] Ketones Test strip Ql (U)Ord ered By: David Miramontes on 04-07-2024 Ketones Ql (U) Negative Negative [facility] Nitrite Test strip Ql (U)Ord ered By: David Miramontes on 04-07-2024 Nitrite Ql (U) Negative Negative [facility] Potassium measurementOrdered By: David Miramontes on 04-07-2024 Potassium [Moles/Vol] 3.8 mmol/L 3.5-5.1 [facility] Comment on above: Slight Hemolysis, Re sult may be falsely increased. Protein Test strip Ql (U)Ord ered By: David Miramontes on 04-07-2024 Protein Ql (U) 30 mg/dl High Negative [facility] Serum anion gap measurementO rdered By: David Miramontes on 04-07-2024 Anion gap [Moles/Vol] 9 mmol/L 5-15 [facility] Serum or plasma calcium siobhan urement (mass/volume)Ordered By: David Miramontes on 04-07-2024 Calcium [Mass/Vol] 8.9 mg/dL 8.5-10.1 [facility] Serum or plasma creatinine m easurement (mass/volume)Ordered By: David Miramontes on 04-07-2024 Creatinine [Mass/Vol] 1.27 mg/dL 0.70-1.30 [facility] Comment on above: The validity of the calculated GFR & GFRAA in patients over 70 years has not been determined. Clinical correlation is essential. Serum or plasma urea nitroge n measurement (mass/volume)Ordered By: David Miramontes on 04-07-2024 Urea nitrogen [Mass/Vol] 20 mg/dL High 7-18 [facility] Serum or plasma uric acid me asurement (mass/volume)Ordered By: David Miramontes on 04-07-2024 Urate [Mass/Vol] 7.7 mg/dL High 3.5-7.2 [facility] Comment on above: The drugs N-Acetylcy steine and Metamizole may falsely depress this assay. Sodium levelOrdered By: Frandy Miramontes on 04-07-2024 Sodium [Moles/Vol] 143 mmol/L 136-145 [facility] Urine blood detectionOrdered By: David Miramontes on 04-07-2024 Urine Occult Blood 250 /ul High Negative [facility] Urine clarityOrdered By: Lg Miramontes on 04-07-2024 Clarity (U) Clear Clear [facility] Urine color determinationOrd ered By: David Miramontes on 04-07-2024 Color (U) Straw Yellow [facility] Urine cultureOrdered By: Lg Miramontes on 04-07-2024 Bacteria identified Cx Nom (U) Negative Abnormal [facility] Urine glucose detectionOrder ed By: David Miramontes on 04-07-2024 Glucose Ql (U) Normal mg/dl Normal [facility] Urine leukocyte esterase det ection by dipstickOrdered By: David Miramontes on 04-07-2024 Leukocyte esterase Test strip Ql (U) 25 /ul High Negative [facility] Urine pHOrdered By: Leo Miramontes on 04-07-2024 pH (U) 6.5 [pH] 5.0 - 8.0 [facility] Urine specific gravity measu rementOrdered By: David Miramontes on 04-07-2024 Specific gravity (U) [Rel density] 1.005 1.002-1.030 [facility] Urine urobilinogen measureme ntOrdered By: David Miramontes on 04-07-2024 Urobilinogen Ql (U) Normal mg/dl Normal [facility] Urobilinogen Ql (U)Ordered B y: David Miramontes on 04-07-2024 Urine Urobilinogen Normal mg/dl Normal [facility] Absolute lymphocyte countOrd ered By: David Miramontes on 04-04-2024 Lymphocytes Auto (Unsp spec) [#/Vol] 0.82 10*3/uL Low 0.83-4.51 [facility] Absolute neutrophil countOrd ered By: David Miramontes on 04-04-2024 Neutrophils (Bld) [#/Vol] 11.6 10*3/uL High 2.0-7.7 [facility] Automated lymphocyte count a s percentage of total leukocytesOrdered By: David Miramontes on 04-04-2024 Lymphocytes/100 WBC Auto (Unsp spec) 5.9 % Low 19-41 [facility] Basophil percentageOrdered B y: David Miramontes on 04-04-2024 Basophils/100 WBC (Bld) 0.2 % 0-1 [facility] Blood urea nitrogen (BUN)/cr eatinine ratioOrdered By: David Miramontes on 04-04-2024 Urea nitrogen/Creatinine [Mass ratio] 9.6 mg/mg Low 10-20 [facility] Carbon dioxide measurementOr dered By: David Miramontes on 04-04-2024 CO2 [Moles/Vol] 26.0 mmol/L 21.0-32.0 [facility] Chloride measurementOrdered By: David Miramontes on 04-04-2024 Chloride [Moles/Vol] 105 mmol/L 98-107 [facility] Eosinophil percentageOrdered By: David Miramontes on 04-04-2024 Eosinophils/100 WBC (Bld) 0.0 % 0-5 [facility] Erythrocyte distribution wid th (RBC) [Ratio]Ordered By: David Miramontes on 04-04-2024 Erythrocyte distribution width (RBC) [Entitic vol] 55.2 fL High 35.1-43.9 [facility] Erythrocyte distribution wid th ratioOrdered By: David Miramontes on 04-04-2024 Erythrocyte distribution width (RBC) [Ratio] 15.2 % High 11.6-14.6 [facility] Erythrocyte distribution wid th standard deviationOrdered By: David Miramontes on 04-04-2024 Erythrocyte distribution width (RBC) [Ratio] 55.2 fl High 35.1-43.9 [facility] Estimated glomerular filtrat ion rate (GFR) AmericanOrdered By: David Miramontes on 04-04-2024 Estimated GFR (MDRD) Amer 47 mL/min Low >60 [facility] Comment on above: GFR Calc Glomerular filtration rate ( GFR) estimationOrdered By: David Miramontes on 04-04-2024 Estimated GFR (MDRD) Non-Af Amer 39 mL/min Low >60 [facility] Comment on above: Non- GFR Calc GFR/1.73 sq M.predicted among non-blacks MDRD (S/P/Bld) [Vol rate/Area] 39 mL/min/{1.73_m2} Low >60 [facility] Comment on above: Non- GFR Calc Glucose measurementOrdered B y: Vickyingris Miramontes on 04-04-2024 Glucose [Mass/Vol] 119 mg/dL High 74-106 [facility] Comment on above: Fasting Glucose resu lt from 100 to 125 mg/dL suggests IMPAIRED HOMEOSTASIS per A.D.A. criteria. Hematocrit Auto (Bld) [Volum e fraction]Ordered By: David Miramontes on 04-04-2024 Hematocrit (Bld) [Volume fraction] 49.2 % 40-54 [facility] Hemoglobin measurementOrdere d By: David Miramontes on 04-04-2024 Hemoglobin (Bld) [Mass/Vol] 15.9 g/dL 13.0-16.5 [facility] Immature granulocytes/100 WB C Auto (Bld)Ordered By: waynekanabingris Miramontes on 04-04-2024 Immature granulocytes/100 WBC (Bld) 0.500 % 0.0-0.9 [facility] Comment on above: IG% - Immature Granu locytes (promyelocytes, myelocytes and metamyelocytes) > 1% indicates that a LEFT SHIFT is Present. Lymphocytes Auto (Unsp spec) [#/Vol]Ordered By: David Miramontes on 04-04-2024 Lymphocytes (Bld) [#/Vol] 0.82 10*3/uL Low 0.83-4.51 [facility] Lymphocytes/100 WBC Auto (Un sp spec)Ordered By: David Miramontes on 04-04-2024 Lymphocytes/100 WBC (Bld) 5.9 % Low 19-41 [facility] MCV (mean corpuscular volume ) determinationOrdered By: David Miramontes on 04-04-2024 MCV (RBC) [Entitic vol] 98.4 fL High 80-94 [facility] Mean corpuscular hemoglobin (MCH) determinationOrdered By: David Miramontes on 04-04-2024 MCH (RBC) [Entitic mass] 31.8 pg 27.0-32.0 [facility] Mean corpuscular hemoglobin concentration (MCHC) determinationOrdered By: David Miramontes on 04-04-2024 MCHC (RBC) [Mass/Vol] 32.3 g/dL 32-36 [facility] Mean platelet volume determi nationOrdered By: Mayrawaynefeliciaingris Miramontes on 04-04-2024 Platelet mean volume (Bld) [Entitic vol] 12.5 fL High 6.2-12.0 [facility] Monocyte percentageOrdered B y: David Miramontes on 04-04-2024 Monocytes/100 WBC (Bld) 9.9 % 0-10 [facility] Neutrophil percentageOrdered By: David Miramontes on 04-04-2024 Neutrophils/100 WBC (Bld) 83.5 % High 47-70 [facility] Nucleated red blood cell per centageOrdered By: David Miramontes on 04-04-2024 Nucleated RBC/100 WBC (Bld) [Ratio] 0 % 0-5 [facility] Platelet countOrdered By: Mayra waynecarleen Miramontes on 04-04-2024 Platelets (Bld) [#/Vol] 209 10*3/uL 150-450 [facility] Potassium measurementOrdered By: David Miramontes on 04-04-2024 Potassium [Moles/Vol] 4.2 mmol/L 3.5-5.1 [facility] Comment on above: Slight Hemolysis, Re sult may be falsely increased. RBC Auto (Bld) [#/Vol]Ordere d By: David Miramontes on 04-04-2024 RBC (Bld) [#/Vol] 5.00 10*6/uL 4.6-6.2 [facility] Serum anion gap measurementO rdered By: David Miramontes on 04-04-2024 Anion gap [Moles/Vol] 8 mmol/L 5-15 [facility] Serum or plasma calcium siobhan urement (mass/volume)Ordered By: David Miramontes on 04-04-2024 Calcium [Mass/Vol] 9.6 mg/dL 8.5-10.1 [facility] Serum or plasma creatinine m easurement (mass/volume)Ordered By: David Miramontes on 04-04-2024 Creatinine [Mass/Vol] 1.77 mg/dL High 0.70-1.30 [facility] Comment on above: The validity of the calculated GFR & GFRAA in patients over 70 years has not been determined. Clinical correlation is essential. Serum or plasma urea nitroge n measurement (mass/volume)Ordered By: David Miramontes on 04-04-2024 Urea nitrogen [Mass/Vol] 17 mg/dL 7-18 [facility] Sodium levelOrdered By: Frandy Miramontes on 04-04-2024 Sodium [Moles/Vol] 139 mmol/L 136-145 [facility] White blood cell (WBC) count Ordered By: [facility] on 04-04-2024 WBC (Bld) [#/Vol] 13.9 10*3/uL High 4.4-11.0 [facility] Absolute lymphocyte countOrd ered By: [facility] Joesphtereza on 04-06-2023 Lymphocytes Auto (Unsp spec) [#/Vol] 1.24 10*3/uL 0.83-4.51 [facility] Automated lymphocyte count a s percentage of total leukocytesOrdered By: [facility] Mir[facility] on 04-06-2023 Lymphocytes/100 WBC Auto (Unsp spec) 18.7 % 19-41 [facility] Basophil percentageOrdered B y: David Miramontes on 04-06-2023 Basophils/100 WBC (Bld) 0.5 % 0-1 [facility] Chloride [Moles/Vol] 109 mmol/L 98-107 [facility] Eosinophils/100 WBC (Bld) 1.7 % 0-5 [facility] Glucose [Mass/Vol] 90 mg/dL 74-106 [facility] Hemoglobin (Bld) [Mass/Vol] 15.4 g/dL 13.0-16.5 [facility] Monocytes/100 WBC (Bld) 9.4 % 0-10 [facility] Neutrophils (Bld) [#/Vol] 4.6 10*3/uL 2.0-7.7 [facility] Neutrophils/100 WBC (Bld) 69.2 % 47-70 [facility] Potassium [Moles/Vol] 3.7 mmol/L 3.5-5.1 [facility] Sodium [Moles/Vol] 141 mmol/L 136-145 [facility] WBC (Bld) [#/Vol] 6.6 10*3/uL 4.4-11.0 [facility] Determination of erythrocyte mean corpuscular volume (MCV)Ordered By: David Miramontes on 04-06-2023 MCV (RBC) [Entitic vol] 98.2 fL 80-94 [facility] Erythrocyte distribution wid th ratioOrdered By: waynekanabingris Miramontes on 04-06-2023 Erythrocyte distribution width (RBC) [Ratio] 14.4 % 11.6-14.6 [facility] Erythrocyte distribution wid th standard deviationOrdered By: Frandykanabingris Miramontes on 04-06-2023 Erythrocyte distribution width (RBC) [Entitic vol] 51.7 fL 35.1-43.9 [facility] Hematocrit Auto (Bld) [Volum e fraction]Ordered By: David Miramontes on 04-06-2023 Hematocrit (Bld) [Volume fraction] 49.2 % 40-54 [facility] Immature granulocytes/100 WB C Auto (Bld)Ordered By: [facility] Pinktereza on 04-06-2023 Immature granulocytes/100 WBC (Bld) 0.500 % 0.0-0.9 [facility] Comment on above: IG% - Immature Granu locytes (promyelocytes, myelocytes and metamyelocytes) > 1% indicates that a LEFT SHIFT is Present. Laboratory - Chemistry and C hemistry - challengeOrdered By: David Miramontes on 04-06-2023 CO2 [Moles/Vol] 27.0 mmol/L 21.0-32.0 [facility] Urea nitrogen/Creatinine [Mass ratio] 15.0 mg/mg 10-20 [facility] Laboratory - Hematology and Cell countsOrdered By: David Miramontes on 04-06-2023 MCH (RBC) [Entitic mass] 30.7 pg 27.0-32.0 [facility] MCHC (RBC) [Mass/Vol] 31.3 g/dL 32-36 [facility] Nucleated RBC/100 WBC (Bld) [Ratio] 0 % 0-5 [facility] Platelet mean volume (Bld) [Entitic vol] 11.5 fL 6.2-12.0 [facility] Platelets (Bld) [#/Vol] 189 10*3/uL 150-450 [facility] No Panel InformationOrdered By: David Miramontes on 04-06-2023 Estimated GFR (MDRD) Amer 85 mL/min >60 [facility] Comment on above: GFR Calc Estimated GFR (MDRD) Non-Af Amer 70 mL/min >60 [facility] Comment on above: Non- GFR Calc RBC Auto (Bld) [#/Vol]Ordere d By: David Miramontes on 04-06-2023 RBC (Bld) [#/Vol] 5.01 10*6/uL 4.6-6.2 [facility] Serum or plasma calcium siobhan urement (mass/volume)Ordered By: David Miramontes on 04-06-2023 Calcium [Mass/Vol] 9.1 mg/dL 8.5-10.1 [facility] Serum or plasma creatinine m easurement (mass/volume)Ordered By: Daivd Miramontes on 04-06-2023 Creatinine [Mass/Vol] 1.07 mg/dL 0.70-1.30 [facility] Comment on above: The validity of the calculated GFR & GFRAA in patients over 70 years has not been determined. Clinical correlation is essential. Serum or plasma urea nitroge n measurement (mass/volume)Ordered By: David Miramontes on 04-06-2023 Urea nitrogen [Mass/Vol] 16 mg/dL 7-18 [facility] Thin prep Papanicolaou smear with manual screeningOrdered By: David Miramontes on 04-06-2023 Thin prep Papanicolaou smear with manual screening 5 5-15 [facility] Absolute lymphocyte countOrd ered By: David Miramontes on 12-30-2022 Lymphocytes Auto (Unsp spec) [#/Vol] 1.16 10*3/uL 0.83-4.51 [facility] Basophil percentageOrdered B y: David Miramontes on 12-30-2022 Basophils/100 WBC (Bld) 0.4 % 0-1 [facility] Chloride [Moles/Vol] 109 mmol/L 98-107 [facility] Eosinophils/100 WBC (Bld) 1.3 % 0-5 [facility] Glucose [Mass/Vol] 84 mg/dL 74-106 [facility] Neutrophils (Bld) [#/Vol] 5.4 10*3/uL 2.0-7.7 [facility] Neutrophils/100 WBC (Bld) 72.7 % 47-70 [facility] Potassium [Moles/Vol] 3.6 mmol/L 3.5-5.1 [facility] Sodium [Moles/Vol] 142 mmol/L 136-145 [facility] WBC (Bld) [#/Vol] 7.4 10*3/uL 4.4-11.0 [facility] Blood erythrocytes count (nu mber/volume)Ordered By: David Miramontes on 12-30-2022 RBC (Bld) [#/Vol] 4.15 10*6/uL 4.6-6.2 [facility] Blood hemoglobin measurement (mass/volume)Ordered By: David Miramontes on 12-30-2022 Hemoglobin (Bld) [Mass/Vol] 13.0 g/dL 13.0-16.5 [facility] Blood lymphocytes/100 leukoc ytesOrdered By: David Miramontes on 12-30-2022 Lymphocytes/100 WBC (Bld) 15.6 % 19-41 [facility] Blood monocytes/100 leukocyt esOrdered By: David Miramontes on 12-30-2022 Monocytes/100 WBC (Bld) 9.6 % 0-10 [facility] Blood platelet mean volumeOr dered By: David Miramontes on 12-30-2022 Platelet mean volume (Bld) [Entitic vol] 11.6 fL 6.2-12.0 [facility] Determination of erythrocyte mean corpuscular volume (MCV)Ordered By: David Miramontes on 12-30-2022 MCV (RBC) [Entitic vol] 99.5 fL 80-94 [facility] Hematocrit Auto (Bld) [Volum e fraction]Ordered By: David Miramontes on 12-30-2022 Hematocrit (Bld) [Volume fraction] 41.3 % 40-54 [facility] - Chemistry and C hemistry - challengeOrdered By: David Miramontes on 12-30-2022 CO2 [Moles/Vol] 27.0 mmol/L 21.0-32.0 [facility] Urea nitrogen/Creatinine [Mass ratio] 11.6 mg/mg 10-20 [facility] - Hematology and Cell countsOrdered By: David Miramontes on 12-30-2022 Erythrocyte distribution width (RBC) [Entitic vol] 51.5 fL 35.1-43.9 [facility] Erythrocyte distribution width (RBC) [Ratio] 14.2 % 11.6-14.6 [facility] Immature granulocytes/100 WBC (Bld) 0.400 % 0.0-0.9 [facility] Comment on above: IG% - Immature Granu locytes (promyelocytes, myelocytes and metamyelocytes) > 1% indicates that a LEFT SHIFT is Present. MCH (RBC) [Entitic mass] 31.3 pg 27.0-32.0 [facility] Nucleated RBC/100 WBC (Bld) [Ratio] 0 % 0-5 [facility] MCHC Auto (RBC) [Mass/Vol]Or dered By: David Miramontes on 12-30-2022 MCHC (RBC) [Mass/Vol] 31.5 g/dL 32-36 [facility] No Panel InformationOrdered By: David Miramontes on 12-30-2022 Estimated GFR (MDRD) Amer 108 mL/min >60 [facility] Comment on above: GFR Calc Estimated GFR (MDRD) Non-Af Amer 90 mL/min >60 [facility] Comment on above: Non- GFR Calc Platelets bldOrdered By: Lg Miramontes on 12-30-2022 Platelets (Bld) [#/Vol] 165 10*3/uL 150-450 [facility] Serum or plasma calcium siobhan urement (mass/volume)Ordered By: David Miramontes on 12-30-2022 Calcium [Mass/Vol] 8.3 mg/dL 8.5-10.1 [facility] Serum or plasma creatinine m easurement (mass/volume)Ordered By: David Miramontes on 12-30-2022 Creatinine [Mass/Vol] 0.86 mg/dL 0.70-1.30 [facility] Comment on above: The validity of the calculated GFR & GFRAA in patients over 70 years has not been determined. Clinical correlation is essential. Serum or plasma urea nitroge n measurement (mass/volume)Ordered By: David Miramontes on 12-30-2022 Urea nitrogen [Mass/Vol] 10 mg/dL 7-18 [facility] Thin prep Papanicolaou smear with manual screeningOrdered By: [facility] Joesphtereza on 12-30-2022 Thin prep Papanicolaou smear with manual screening 6 5-15 [facility] Absolute lymphocyte countOrd ered By: [facility] Pinktereza on 09-29-2022 Lymphocytes Auto (Unsp spec) [#/Vol] 1.19 10*3/uL 0.83-4.51 [facility] Basophil percentageOrdered B y: David Miramontes on 09-29-2022 Basophils/100 WBC (Bld) 0.2 % 0-1 [facility] Chloride [Moles/Vol] 109 mmol/L 98-107 [facility] Eosinophils/100 WBC (Bld) 0.1 % 0-5 [facility] Glucose [Mass/Vol] 100 mg/dL 74-106 [facility] Comment on above: Fasting Glucose resu lt from 100 to 125 mg/dL suggests IMPAIRED HOMEOSTASIS per A.D.A. criteria. Neutrophils (Bld) [#/Vol] 8.4 10*3/uL 2.0-7.7 [facility] Neutrophils/100 WBC (Bld) 80.3 % 47-70 [facility] Potassium [Moles/Vol] 4.0 mmol/L 3.5-5.1 [facility] Sodium [Moles/Vol] 141 mmol/L 136-145 [facility] WBC (Bld) [#/Vol] 10.4 10*3/uL 4.4-11.0 [facility] Blood erythrocytes count (nu mber/volume)Ordered By: David Miramontes on 09-29-2022 RBC (Bld) [#/Vol] 4.62 10*6/uL 4.6-6.2 [facility] Blood hemoglobin measurement (mass/volume)Ordered By: David Miramontes on 09-29-2022 Hemoglobin (Bld) [Mass/Vol] 14.6 g/dL 13.0-16.5 [facility] Blood lymphocytes/100 leukoc ytesOrdered By: David Miramontes on 09-29-2022 Lymphocytes/100 WBC (Bld) 11.5 % 19-41 [facility] Blood monocytes/100 leukocyt esOrdered By: David Miramontes on 09-29-2022 Monocytes/100 WBC (Bld) 7.3 % 0-10 [facility] Blood platelet mean volumeOr dered By: David Miramontes on 09-29-2022 Platelet mean volume (Bld) [Entitic vol] 11.5 fL 6.2-12.0 [facility] Determination of erythrocyte mean corpuscular volume (MCV)Ordered By: David Miramontes on 09-29-2022 MCV (RBC) [Entitic vol] 99.4 fL 80-94 [facility] Hematocrit Auto (Bld) [Volum e fraction]Ordered By: David Miramontes on 09-29-2022 Hematocrit (Bld) [Volume fraction] 45.9 % 40-54 [facility] - Chemistry and C hemistry - challengeOrdered By: David Miramontes on 09-29-2022 CO2 [Moles/Vol] 28.0 mmol/L 21.0-32.0 [facility] Urea nitrogen/Creatinine [Mass ratio] 13.8 mg/mg 10-20 [facility] - Hematology and Cell countsOrdered By: David Miramontes on 09-29-2022 Erythrocyte distribution width (RBC) [Entitic vol] 51.7 fL 35.1-43.9 [facility] Erythrocyte distribution width (RBC) [Ratio] 14.2 % 11.6-14.6 [facility] Immature granulocytes/100 WBC (Bld) 0.600 % 0.0-0.9 [facility] Comment on above: IG% - Immature Granu locytes (promyelocytes, myelocytes and metamyelocytes) > 1% indicates that a LEFT SHIFT is Present. MCH (RBC) [Entitic mass] 31.6 pg 27.0-32.0 [facility] Nucleated RBC/100 WBC (Bld) [Ratio] 0 % 0-5 [facility] MCHC Auto (RBC) [Mass/Vol]Or dered By: David Miramontes on 09-29-2022 MCHC (RBC) [Mass/Vol] 31.8 g/dL 32-36 [facility] No Panel InformationOrdered By: David Miramontes on 09-29-2022 Estimated GFR (MDRD) Amer 98 mL/min >60 [facility] Comment on above: GFR Calc Estimated GFR (MDRD) Non-Af Amer 81 mL/min >60 [facility] Comment on above: Non- GFR Calc Platelets bldOrdered By: Lg Miramontes on 09-29-2022 Platelets (Bld) [#/Vol] 185 10*3/uL 150-450 [facility] Serum or plasma calcium siobhan urement (mass/volume)Ordered By: David Miramontes on 09-29-2022 Calcium [Mass/Vol] 8.9 mg/dL 8.5-10.1 [facility] Serum or plasma creatinine m easurement (mass/volume)Ordered By: David Miramontes on 09-29-2022 Creatinine [Mass/Vol] 0.94 mg/dL 0.70-1.30 [facility] Comment on above: The validity of the calculated GFR & GFRAA in patients over 70 years has not been determined. Clinical correlation is essential. Serum or plasma urea nitroge n measurement (mass/volume)Ordered By: David Miramontes on 09-29-2022 Urea nitrogen [Mass/Vol] 13 mg/dL 7-18 [facility] Thin prep Papanicolaou smear with manual screeningOrdered By: David Miramontes on 09-29-2022 Thin prep Papanicolaou smear with manual screening 4 5-15 [facility] Absolute lymphocyte countOrd ered By: David Miramontes on 06-29-2022 Lymphocytes Auto (Unsp spec) [#/Vol] 1.43 10*3/uL 0.83-4.51 [facility] Basophil percentageOrdered B y: David Miramontes on 06-29-2022 Basophils/100 WBC (Bld) 0.6 % 0-1 [facility] Chloride [Moles/Vol] 107 mmol/L 98-107 [facility] Eosinophils/100 WBC (Bld) 1.5 % 0-5 [facility] Glucose [Mass/Vol] 85 mg/dL 74-106 [facility] Neutrophils (Bld) [#/Vol] 4.4 10*3/uL 2.0-7.7 [facility] Neutrophils/100 WBC (Bld) 65.4 % 47-70 [facility] Potassium [Moles/Vol] 3.6 mmol/L 3.5-5.1 [facility] Sodium [Moles/Vol] 140 mmol/L 136-145 [facility] WBC (Bld) [#/Vol] 6.7 10*3/uL 4.4-11.0 [facility] Blood erythrocytes count (nu mber/volume)Ordered By: David Miramontes on 06-29-2022 RBC (Bld) [#/Vol] 4.55 10*6/uL 4.6-6.2 [facility] Blood hemoglobin measurement (mass/volume)Ordered By: David Miramontes on 06-29-2022 Hemoglobin (Bld) [Mass/Vol] 14.5 g/dL 13.0-16.5 [facility] Blood lymphocytes/100 leukoc ytesOrdered By: David Miramontes on 06-29-2022 Lymphocytes/100 WBC (Bld) 21.5 % 19-41 [facility] Blood monocytes/100 leukocyt esOrdered By: David Miramontes on 06-29-2022 Monocytes/100 WBC (Bld) 10.7 % 0-10 [facility] Blood platelet mean volumeOr dered By: David Miramontes on 06-29-2022 Platelet mean volume (Bld) [Entitic vol] 11.2 fL 6.2-12.0 [facility] Determination of erythrocyte mean corpuscular volume (MCV)Ordered By: David Miramontes on 06-29-2022 MCV (RBC) [Entitic vol] 98.9 fL 80-94 [facility] Hematocrit Auto (Bld) [Volum e fraction]Ordered By: David Miramontes on 06-29-2022 Hematocrit (Bld) [Volume fraction] 45.0 % 40-54 [facility] - Chemistry and C hemistry - challengeOrdered By: danay Miramontes on 06-29-2022 CO2 [Moles/Vol] 30.0 mmol/L 21.0-32.0 [facility] Urea nitrogen/Creatinine [Mass ratio] 13.6 mg/mg 10-20 [facility] - Hematology and Cell countsOrdered By: David Miramontes on 06-29-2022 Erythrocyte distribution width (RBC) [Entitic vol] 51.6 fL 35.1-43.9 [facility] Erythrocyte distribution width (RBC) [Ratio] 14.3 % 11.6-14.6 [facility] Immature granulocytes/100 WBC (Bld) 0.300 % 0.0-0.9 [facility] Comment on above: IG% - Immature Granu locytes (promyelocytes, myelocytes and metamyelocytes) > 1% indicates that a LEFT SHIFT is Present. MCH (RBC) [Entitic mass] 31.9 pg 27.0-32.0 [facility] Nucleated RBC/100 WBC (Bld) [Ratio] 0 % 0-5 [facility] MCHC Auto (RBC) [Mass/Vol]Or dered By: David Miramontes on 06-29-2022 MCHC (RBC) [Mass/Vol] 32.2 g/dL 32-36 [facility] No Panel InformationOrdered By: David Miramontes on 06-29-2022 Estimated GFR (MDRD) Amer 89 mL/min >60 [facility] Comment on above: GFR Calc Estimated GFR (MDRD) Non-Af Amer 73 mL/min >60 [facility] Comment on above: Non- GFR Calc Platelets bldOrdered By: Lg rupinderingris Miramontes on 06-29-2022 Platelets (Bld) [#/Vol] 161 10*3/uL 150-450 [facility] Serum or plasma calcium siobhan urement (mass/volume)Ordered By: David Miramontes on 06-29-2022 Calcium [Mass/Vol] 8.7 mg/dL 8.5-10.1 [facility] Serum or plasma creatinine m easurement (mass/volume)Ordered By: David Miramontes on 06-29-2022 Creatinine [Mass/Vol] 1.03 mg/dL 0.70-1.30 [facility] Comment on above: The validity of the calculated GFR & GFRAA in patients over 70 years has not been determined. Clinical correlation is essential. Serum or plasma urea nitroge n measurement (mass/volume)Ordered By: Dvaid Miramontes on 06-29-2022 Urea nitrogen [Mass/Vol] 14 mg/dL 7-18 [facility] Thin prep Papanicolaou smear with manual screeningOrdered By: David Miramontes on 06-29-2022 Thin prep Papanicolaou smear with manual screening 3 5-15 [facility] Absolute lymphocyte countOrd ered By: David Miramontes on 04-01-2022 Lymphocytes Auto (Unsp spec) [#/Vol] 1.25 10*3/uL 0.83-4.51 [facility] Basophil percentageOrdered B y: David Miramontes on 04-01-2022 Basophils/100 WBC (Bld) 0.4 % 0-1 [facility] Chloride [Moles/Vol] 108 mmol/L 98-107 [facility] Eosinophils/100 WBC (Bld) 1.5 % 0-5 [facility] Glucose [Mass/Vol] 106 mg/dL 74-106 [facility] Comment on above: Fasting Glucose resu lt from 100 to 125 mg/dL suggests IMPAIRED HOMEOSTASIS per A.D.A. criteria. Neutrophils (Bld) [#/Vol] 4.7 10*3/uL 2.0-7.7 [facility] Neutrophils/100 WBC (Bld) 69.1 % 47-70 [facility] Potassium [Moles/Vol] 3.6 mmol/L 3.5-5.1 [facility] Sodium [Moles/Vol] 143 mmol/L 136-145 [facility] WBC (Bld) [#/Vol] 6.8 10*3/uL 4.4-11.0 [facility] Blood erythrocytes count (nu mber/volume)Ordered By: David Miramontes on 04-01-2022 RBC (Bld) [#/Vol] 4.69 10*6/uL 4.6-6.2 [facility] Blood hemoglobin measurement (mass/volume)Ordered By: David Miramontes on 04-01-2022 Hemoglobin (Bld) [Mass/Vol] 14.8 g/dL 13.0-16.5 [facility] Blood lymphocytes/100 leukoc ytesOrdered By: David Miramontes on 04-01-2022 Lymphocytes/100 WBC (Bld) 18.5 % 19-41 [facility] Blood monocytes/100 leukocyt esOrdered By: David Miramontes on 04-01-2022 Monocytes/100 WBC (Bld) 10.2 % 0-10 [facility] Blood platelet mean volumeOr dered By: David Miramontes on 04-01-2022 Platelet mean volume (Bld) [Entitic vol] 11.5 fL 6.2-12.0 [facility] Determination of erythrocyte mean corpuscular volume (MCV)Ordered By: David Miramontes on 04-01-2022 MCV (RBC) [Entitic vol] 97.0 fL 80-94 [facility] Hematocrit Auto (Bld) [Volum e fraction]Ordered By: David Miramontes on 04-01-2022 Hematocrit (Bld) [Volume fraction] 45.5 % 40-54 [facility] - Chemistry and C hemistry - challengeOrdered By: David Miramontes on 04-01-2022 CO2 [Moles/Vol] 29.0 mmol/L 21.0-32.0 [facility] Urea nitrogen/Creatinine [Mass ratio] 13.0 mg/mg 10-20 [facility] - Hematology and Cell countsOrdered By: David Miramontes on 04-01-2022 Erythrocyte distribution width (RBC) [Entitic vol] 51.1 fL 35.1-43.9 [facility] Erythrocyte distribution width (RBC) [Ratio] 14.4 % 11.6-14.6 [facility] Immature granulocytes/100 WBC (Bld) 0.300 % 0.0-0.9 [facility] Comment on above: IG% - Immature Granu locytes (promyelocytes, myelocytes and metamyelocytes) > 1% indicates that a LEFT SHIFT is Present. MCH (RBC) [Entitic mass] 31.6 pg 27.0-32.0 [facility] Nucleated RBC/100 WBC (Bld) [Ratio] 0 % 0-5 [facility] MCHC Auto (RBC) [Mass/Vol]Or dered By: David Miramontes on 04-01-2022 MCHC (RBC) [Mass/Vol] 32.5 g/dL 32-36 [facility] No Panel InformationOrdered By: David Miramontes on 04-01-2022 Estimated GFR (MDRD) Amer 92 mL/min >60 [facility] Comment on above: GFR Calc Estimated GFR (MDRD) Non-Af Amer 76 mL/min >60 [facility] Comment on above: Non- GFR Calc Platelets bldOrdered By: Lg Miramontes on 04-01-2022 Platelets (Bld) [#/Vol] 167 10*3/uL 150-450 [facility] Serum or plasma calcium siobhan urement (mass/volume)Ordered By: David Miramontes on 04-01-2022 Calcium [Mass/Vol] 9.1 mg/dL 8.5-10.1 [facility] Serum or plasma creatinine m easurement (mass/volume)Ordered By: David Miramontes on 04-01-2022 Creatinine [Mass/Vol] 1.00 mg/dL 0.70-1.30 [facility] Comment on above: The validity of the calculated GFR & GFRAA in patients over 70 years has not been determined. Clinical correlation is essential. Serum or plasma urea nitroge n measurement (mass/volume)Ordered By: David Miramontes on 04-01-2022 Urea nitrogen [Mass/Vol] 13 mg/dL 7-18 [facility] Thin prep Papanicolaou smear with manual screeningOrdered By: David Miramontes on 04-01-2022 Thin prep Papanicolaou smear with manual screening 6 5-15 [facility] Absolute lymphocyte countOrd ered By: Jhonny Tomas on 01-07-2022 Lymphocytes Auto (Unsp spec) [#/Vol] 1.54 10*3/uL 0.83-4.51 [facility] Basophil percentageOrdered B y: Jhonny Tomas on 01-07-2022 Basophils/100 WBC (Bld) 0.3 % 0-1 [facility] Chloride [Moles/Vol] 104 mmol/L 98-107 [facility] Eosinophils/100 WBC (Bld) 1.9 % 0-5 [facility] Glucose [Mass/Vol] 89 mg/dL 74-106 [facility] Neutrophils (Bld) [#/Vol] 4.8 10*3/uL 2.0-7.7 [facility] Neutrophils/100 WBC (Bld) 66.5 % 47-70 [facility] Potassium [Moles/Vol] 4.1 mmol/L 3.5-5.1 [facility] Sodium [Moles/Vol] 141 mmol/L 136-145 [facility] WBC (Bld) [#/Vol] 7.2 10*3/uL 4.4-11.0 [facility] Blood erythrocytes count (nu mber/volume)Ordered By: Jhonny Tomas on 01-07-2022 RBC (Bld) [#/Vol] 4.80 10*6/uL 4.6-6.2 [facility] Blood hemoglobin measurement (mass/volume)Ordered By: Jhonny Tomas on 01-07-2022 Hemoglobin (Bld) [Mass/Vol] 15.2 g/dL 13.0-16.5 [facility] Blood lymphocytes/100 leukoc ytesOrdered By: Jhonny Tomas on 01-07-2022 Lymphocytes/100 WBC (Bld) 21.3 % 19-41 [facility] Blood monocytes/100 leukocyt esOrdered By: Jhonny Tomas on 01-07-2022 Monocytes/100 WBC (Bld) 9.7 % 0-10 [facility] Blood platelet mean volumeOr dered By: Jhonny Tomas on 01-07-2022 Platelet mean volume (Bld) [Entitic vol] 11.2 fL 6.2-12.0 [facility] Determination of erythrocyte mean corpuscular volume (MCV)Ordered By: Jhonny Tomas on 01-07-2022 MCV (RBC) [Entitic vol] 97.3 fL 80-94 [facility] Hematocrit Auto (Bld) [Volum e fraction]Ordered By: Jhonny Tomas on 01-07-2022 Hematocrit (Bld) [Volume fraction] 46.7 % 40-54 [facility] - Chemistry and C hemistry - challengeOrdered By: Jhonny Tomas on 01-07-2022 CO2 [Moles/Vol] 29.0 mmol/L 21.0-32.0 [facility] Urea nitrogen/Creatinine [Mass ratio] 11.4 mg/mg 10-20 [facility] - Hematology and Cell countsOrdered By: Jhonny Tomas on 01-07-2022 Erythrocyte distribution width (RBC) [Entitic vol] 52.0 fL 35.1-43.9 [facility] Erythrocyte distribution width (RBC) [Ratio] 14.5 % 11.6-14.6 [facility] Immature granulocytes/100 WBC (Bld) 0.300 % 0.0-0.9 [facility] Comment on above: IG% - Immature Granu locytes (promyelocytes, myelocytes and metamyelocytes) > 1% indicates that a LEFT SHIFT is Present. MCH (RBC) [Entitic mass] 31.7 pg 27.0-32.0 [facility] Nucleated RBC/100 WBC (Bld) [Ratio] 0 % 0-5 [facility] MCHC Auto (RBC) [Mass/Vol]Or dered By: Jhonny Tomas on 01-07-2022 MCHC (RBC) [Mass/Vol] 32.5 g/dL 32-36 [facility] No Panel InformationOrdered By: Jhonny Tomas on 01-07-2022 Estimated GFR (MDRD) Amer 79 mL/min >60 [facility] Comment on above: GFR Calc Estimated GFR (MDRD) Non-Af Amer 65 mL/min >60 [facility] Comment on above: Non- GFR Calc Platelets bldOrdered By: Joao Tomas on 01-07-2022 Platelets (Bld) [#/Vol] 192 10*3/uL 150-450 [facility] Serum or plasma calcium siobhan urement (mass/volume)Ordered By: Jhonny Tomas on 01-07-2022 Calcium [Mass/Vol] 8.8 mg/dL 8.5-10.1 [facility] Serum or plasma creatinine m easurement (mass/volume)Ordered By: Jhonny Tomas on 01-07-2022 Creatinine [Mass/Vol] 1.14 mg/dL 0.70-1.30 [facility] Comment on above: The validity of the calculated GFR & GFRAA in patients over 70 years has not been determined. Clinical correlation is essential. Serum or plasma urea nitroge n measurement (mass/volume)Ordered By: Jhonny Tomas on 01-07-2022 Urea nitrogen [Mass/Vol] 13 mg/dL 7-18 [facility] Thin prep Papanicolaou smear with manual screeningOrdered By: Jhonny Tomas on 01-07-2022 Thin prep Papanicolaou smear with manual screening 8 5-15 [facility] Absolute lymphocyte countOrd ered By: Jhonny Tomas on 12-24-2021 Lymphocytes Auto (Unsp spec) [#/Vol] 1.60 10*3/uL 0.83-4.51 [facility] Basophil percentageOrdered B y: Jhonny Tomsa on 12-24-2021 Basophils/100 WBC (Bld) 0.4 % 0-1 [facility] Chloride [Moles/Vol] 109 mmol/L 98-107 [facility] Eosinophils/100 WBC (Bld) 1.5 % 0-5 [facility] Glucose [Mass/Vol] 93 mg/dL 74-106 [facility] Neutrophils (Bld) [#/Vol] 4.8 10*3/uL 2.0-7.7 [facility] Neutrophils/100 WBC (Bld) 66.8 % 47-70 [facility] Potassium [Moles/Vol] 4.0 mmol/L 3.5-5.1 [facility] Comment on above: Slight Hemolysis, Re sult may be falsely increased. Sodium [Moles/Vol] 140 mmol/L 136-145 [facility] WBC (Bld) [#/Vol] 7.2 10*3/uL 4.4-11.0 [facility] Blood erythrocytes count (nu mber/volume)Ordered By: Jhonny Tomas on 12-24-2021 RBC (Bld) [#/Vol] 4.49 10*6/uL 4.6-6.2 [facility] Blood hemoglobin measurement (mass/volume)Ordered By: Jhonny Tomas on 12-24-2021 Hemoglobin (Bld) [Mass/Vol] 14.5 g/dL 13.0-16.5 [facility] Blood lymphocytes/100 leukoc ytesOrdered By: Jhonny Tomas on 12-24-2021 Lymphocytes/100 WBC (Bld) 22.2 % 19-41 [facility] Blood monocytes/100 leukocyt esOrdered By: Jhonny Tomas on 12-24-2021 Monocytes/100 WBC (Bld) 9.0 % 0-10 [facility] Blood platelet mean volumeOr dered By: Jhonny Tomas on 12-24-2021 Platelet mean volume (Bld) [Entitic vol] 11.2 fL 6.2-12.0 [facility] Determination of erythrocyte mean corpuscular volume (MCV)Ordered By: Jhonny Tomas on 12-24-2021 MCV (RBC) [Entitic vol] 97.1 fL 80-94 [facility] Hematocrit Auto (Bld) [Volum e fraction]Ordered By: Jhonny Tomas on 12-24-2021 Hematocrit (Bld) [Volume fraction] 43.6 % 40-54 [facility] - Chemistry and C hemistry - challengeOrdered By: Jhonny Tomas on 12-24-2021 CO2 [Moles/Vol] 26.0 mmol/L 21.0-32.0 [facility] Urea nitrogen/Creatinine [Mass ratio] 14.7 mg/mg 10-20 [facility] - Hematology and Cell countsOrdered By: Jhonny Tomas on 12-24-2021 Erythrocyte distribution width (RBC) [Entitic vol] 51.8 fL 35.1-43.9 [facility] Erythrocyte distribution width (RBC) [Ratio] 14.4 % 11.6-14.6 [facility] Immature granulocytes/100 WBC (Bld) 0.100 % 0.0-0.9 [facility] Comment on above: IG% - Immature Granu locytes (promyelocytes, myelocytes and metamyelocytes) > 1% indicates that a LEFT SHIFT is Present. MCH (RBC) [Entitic mass] 32.3 pg 27.0-32.0 [facility] Nucleated RBC/100 WBC (Bld) [Ratio] 0 % 0-5 [facility] MCHC Auto (RBC) [Mass/Vol]Or dered By: Jhonny Tomas on 12-24-2021 MCHC (RBC) [Mass/Vol] 33.3 g/dL 32-36 [facility] No Panel InformationOrdered By: Jhonny Tomas on 12-24-2021 Estimated GFR (MDRD) Amer 90 mL/min >60 [facility] Comment on above: GFR Calc Estimated GFR (MDRD) Non-Af Amer 74 mL/min >60 [facility] Comment on above: Non- GFR Calc Platelets bldOrdered By: Joao Tomas on 12-24-2021 Platelets (Bld) [#/Vol] 166 10*3/uL 150-450 [facility] Serum or plasma calcium siobhan urement (mass/volume)Ordered By: Jhonny Tomas on 12-24-2021 Calcium [Mass/Vol] 8.8 mg/dL 8.5-10.1 [facility] Serum or plasma creatinine m easurement (mass/volume)Ordered By: Jhonny Tomas on 12-24-2021 Creatinine [Mass/Vol] 1.02 mg/dL 0.70-1.30 [facility] Comment on above: The validity of the calculated GFR & GFRAA in patients over 70 years has not been determined. Clinical correlation is essential. Serum or plasma urea nitroge n measurement (mass/volume)Ordered By: Jhonny Tomas on 12-24-2021 Urea nitrogen [Mass/Vol] 15 mg/dL 7-18 [facility] Thin prep Papanicolaou smear with manual screeningOrdered By: Jhonny Tomas on 12-24-2021 Thin prep Papanicolaou smear with manual screening 5 5-15 [facility] Absolute lymphocyte counton 12-10-2021 Lymphocytes Auto (Unsp spec) [#/Vol] 1.33 10*3/uL 0.83-4.51 [facility] Work Phone: [phone] Basophil percentageon 2021 Basophils/100 WBC (Bld) 0.4 % 0-1 [facility] [facility]: [phone] Chloride [Moles/Vol] 105 mmol/L 98-107 [facility]: [phone] Eosinophils/100 WBC (Bld) 1.3 % 0-5 [facility] Work Phone: [phone] Glucose [Mass/Vol] 103 mg/dL 74-106 [facility] Work Phone: Comment on above: Fasting Glucose resu lt from 100 to 125 mg/dL suggests IMPAIRED HOMEOSTASIS per A.D.A. criteria. Neutrophils (Bld) [#/Vol] 4.8 10*3/uL 2.0-7.7 [facility] Work Phone: Neutrophils/100 WBC (Bld) 69.1 % 47-70 [facility] Work Phone: Potassium [Moles/Vol] 3.7 mmol/L 3.5-5.1 [facility] Work Phone: Sodium [Moles/Vol] 141 mmol/L 136-145 [facility] Work Phone: WBC (Bld) [#/Vol] 7.0 10*3/uL 4.4-11.0 [facility] Work Phone: Blood erythrocytes count (nu mber/volume)on 12-10-2021 RBC (Bld) [#/Vol] 4.88 10*6/uL 4.6-6.2 [facility] Work Phone: Blood hemoglobin measurement (mass/volume)on 12-10-2021 Hemoglobin (Bld) [Mass/Vol] 15.5 g/dL 13.0-16.5 [facility] Work Phone: Blood lymphocytes/100 leukoc yteson 12-10-2021 Lymphocytes/100 WBC (Bld) 19.1 % 19-41 [facility] Work Phone: Blood monocytes/100 leukocyt eson 12-10-2021 Monocytes/100 WBC (Bld) 9.8 % 0-10 [facility] Work Phone: Blood platelet mean volumeon 12-10-2021 Platelet mean volume (Bld) [Entitic vol] 10.8 fL 6.2-12.0 [facility] Work Phone: Determination of erythrocyte mean corpuscular volume (MCV)on 12-10-2021 MCV (RBC) [Entitic vol] 95.9 fL 80-94 [facility] Work Phone: Hematocrit Auto (Bld) [Volum e fraction]on 12-10-2021 Hematocrit (Bld) [Volume fraction] 46.8 % 40-54 [facility] Work Phone: Laboratory - Chemistry and C hemistry - challengeon 12-10-2021 CO2 [Moles/Vol] 30.0 mmol/L 21.0-32.0 [facility] Work Phone: Urea nitrogen/Creatinine [Mass ratio] 11.3 mg/mg 10-20 [facility] Work Phone: Laboratory - Hematology and Cell countson 12-10-2021 Erythrocyte distribution width (RBC) [Entitic vol] 51.1 fL 35.1-43.9 [facility] Work Phone: Erythrocyte distribution width (RBC) [Ratio] 14.4 % 11.6-14.6 [facility] Work Phone: Immature granulocytes/100 WBC (Bld) 0.300 % 0.0-0.9 [facility] Work Phone: Comment on above: IG% - Immature Granu locytes (promyelocytes, myelocytes and metamyelocytes) > 1% indicates that a LEFT SHIFT is Present. MCH (RBC) [Entitic mass] 31.8 pg 27.0-32.0 [facility] Work Phone: Nucleated RBC/100 WBC (Bld) [Ratio] 0 % 0-5 [facility] Work Phone: MCHC Auto (RBC) [Mass/Vol]on 12-10-2021 MCHC (RBC) [Mass/Vol] 33.1 g/dL 32-36 [facility] Work Phone: No Panel Informationon 12-10 Estimated GFR (MDRD) Amer 86 mL/min >60 [facility] Work Phone: Comment on above: GFR Calc Estimated GFR (MDRD) Non-Af Amer 71 mL/min >60 [facility] Work Phone: Comment on above: Non- GFR Calc Platelets bldon 12-10-2021 Platelets (Bld) [#/Vol] 176 10*3/uL 150-450 [facility] Work Phone: Serum or plasma calcium siobhan urement (mass/volume)on 12-10-2021 Calcium [Mass/Vol] 8.9 mg/dL 8.5-10.1 [facility] Work Phone: Serum or plasma creatinine m easurement (mass/volume)on 12-10-2021 Creatinine [Mass/Vol] 1.06 mg/dL 0.70-1.30 [facility] Work Phone: Comment on above: The validity of the calculated GFR & GFRAA in patients over 70 years has not been determined. Clinical correlation is essential. Serum or plasma urea nitroge n measurement (mass/volume)on 12-10-2021 Urea nitrogen [Mass/Vol] 12 mg/dL 7-18 [facility] Work Phone: Thin prep Papanicolaou smear with manual screeningon 12-10-2021 Thin prep Papanicolaou smear with manual screening 6 5-15 [facility] Work Phone: CNPNon 12-09-2021 CNPN Telephone (INTWS) GILMAKEL SIMONS ([id number]) 1940 M Date Time Provider Department 12/09/21 NICOLAS CARDENAS During your visit today, we recorded the following information about you: Ludivina Cárdenas LPN 12/09/2021 3:11 PM Signed Patient son Jhonny calling said PCP completed expert evaluation form on 09/29 for guardianship and director of occupational therapy said question number 11 needs revised. Son Jhonny said 2 weeks after form was done father had fall and was taken to [facility] then sent to [facility] for rehab. Now father is [...] stay and he is now under the [place] attending physician's care. It is more appropriate for the [place] attending physician to do another form. More statements need corrected/updated Preethi Delgadillo RN 12/11/2021 2:59 PM Signed Son (Jhonny) calls in and provider message reviewed. Son asking if form brought in can be picked back up in Medical Records. Please contact Jhonny at [phone]. RENETTA Rubio LPN 12/11/2021 3:41 PM Signed Forms pts son brought in have been sent to medical records. Pts son notified. He can pick them up there. Allergies As of Date: 12/09/2021 (No Known Allergies) Date Reviewed: 09/29/2021 Reviewed by: Aihsa Mccullough LPN - Fully Assessed Reason for [...] by FLORA WOOD LPN on 12/11/21 Normal [facility] Absolute lymphocyte counton 11-26-2021 Lymphocytes Auto (Unsp spec) [#/Vol] 1.47 10*3/uL 0.83-4.51 [facility] Work Phone: Basophil percentageon 2021 Basophils/100 WBC (Bld) 0.6 % 0-1 [facility] Work Phone: Chloride [Moles/Vol] 107 mmol/L 98-107 [facility] Work Phone: [phone] Eosinophils/100 WBC (Bld) 1.1 % 0-5 [facility] Work Phone: [phone] Glucose [Mass/Vol] 92 mg/dL 74-106 [facility] Work Phone: [phone] Neutrophils (Bld) [#/Vol] 6.4 10*3/uL 2.0-7.7 [facility] Work Phone: [phone] Neutrophils/100 WBC (Bld) 71.7 % 47-70 [facility] Work Phone: [phone] Potassium [Moles/Vol] 4.0 mmol/L 3.5-5.1 [facility] Work Phone: Comment on above: Slight Hemolysis, Re sult may be falsely increased. Sodium [Moles/Vol] 141 mmol/L 136-145 [facility] Work Phone: WBC (Bld) [#/Vol] 9.0 10*3/uL 4.4-11.0 [facility] Work Phone: [phone] Blood erythrocytes count (nu mber/volume)on 11-26-2021 RBC (Bld) [#/Vol] 4.81 10*6/uL 4.6-6.2 [facility] Work Phone: [phone] Blood hemoglobin measurement (mass/volume)on 11-26-2021 Hemoglobin (Bld) [Mass/Vol] 15.3 g/dL 13.0-16.5 [facility] Work Phone: Blood lymphocytes/100 leukoc yteson 11-26-2021 Lymphocytes/100 WBC (Bld) 16.4 % 19-41 [facility] Work Phone: Blood monocytes/100 leukocyt eson 11-26-2021 Monocytes/100 WBC (Bld) 9.9 % 0-10 [facility] Work Phone: Blood platelet mean volumeon 11-26-2021 Platelet mean volume (Bld) [Entitic vol] 11.2 fL 6.2-12.0 [facility] Work Phone: Determination of erythrocyte mean corpuscular volume (MCV)on 11-26-2021 MCV (RBC) [Entitic vol] 96.7 fL 80-94 [facility] Work Phone: Hematocrit Auto (Bld) [Volum e fraction]on 11-26-2021 Hematocrit (Bld) [Volume fraction] 46.5 % 40-54 [facility] Work Phone: Laboratory - Chemistry and C hemistry - challengeon 11-26-2021 CO2 [Moles/Vol] 28.0 mmol/L 21.0-32.0 [facility] Work Phone: Urea nitrogen/Creatinine [Mass ratio] 13.3 mg/mg 10-20 [facility] Work Phone: Laboratory - Hematology and Cell countson 11-26-2021 Erythrocyte distribution width (RBC) [Entitic vol] 51.9 fL 35.1-43.9 [facility] Work Phone: Erythrocyte distribution width (RBC) [Ratio] 14.5 % 11.6-14.6 [facility] Work Phone: Immature granulocytes/100 WBC (Bld) 0.300 % 0.0-0.9 [facility] Work Phone: Comment on above: IG% - Immature Granu locytes (promyelocytes, myelocytes and metamyelocytes) > 1% indicates that a LEFT SHIFT is Present. MCH (RBC) [Entitic mass] 31.8 pg 27.0-32.0 [facility] Work Phone: Nucleated RBC/100 WBC (Bld) [Ratio] 0 % 0-5 [facility] Work Phone: MCHC Auto (RBC) [Mass/Vol]on 11-26-2021 MCHC (RBC) [Mass/Vol] 32.9 g/dL 32-36 [facility] Work Phone: No Panel Informationon 11-26 Estimated GFR (MDRD) Amer 80 mL/min >60 [facility] Work Phone: Comment on above: GFR Calc Estimated GFR (MDRD) Non-Af Amer 66 mL/min >60 [facility] Work Phone: Comment on above: Non- GFR Calc Platelets bldon 11-26-2021 Platelets (Bld) [#/Vol] 181 10*3/uL 150-450 [facility] Work Phone: Serum or plasma calcium siobhan urement (mass/volume)on 11-26-2021 Calcium [Mass/Vol] 8.7 mg/dL 8.5-10.1 [facility] Work Phone: Serum or plasma creatinine m easurement (mass/volume)on 11-26-2021 Creatinine [Mass/Vol] 1.13 mg/dL 0.70-1.30 [facility] Work Phone: Comment on above: The validity of the calculated GFR & GFRAA in patients over 70 years has not been determined. Clinical correlation is essential. Serum or plasma urea nitroge n measurement (mass/volume)on 11-26-2021 Urea nitrogen [Mass/Vol] 15 mg/dL 7-18 [facility] Work Phone: Thin prep Papanicolaou smear with manual screeningon 11-26-2021 Thin prep Papanicolaou smear with manual screening 6 5-15 [facility] Work Phone: Absolute lymphocyte counton 11-12-2021 Lymphocytes Auto (Unsp spec) [#/Vol] 1.01 10*3/uL 0.83-4.51 [facility] Work Phone: [phone] Basophil percentageon 2021 Basophils/100 WBC (Bld) 0.6 % 0-1 [facility] Work Phone: Chloride [Moles/Vol] 109 mmol/L 98-107 [facility] Work Phone: Eosinophils/100 WBC (Bld) 1.1 % 0-5 [facility] Work Phone: [phone] Glucose [Mass/Vol] 89 mg/dL 74-106 [facility] Work Phone: [phone] Neutrophils (Bld) [#/Vol] 4.7 10*3/uL 2.0-7.7 [facility] Work Phone: Neutrophils/100 WBC (Bld) 72.7 % 47-70 [facility] Work Phone: [phone] Potassium [Moles/Vol] 3.9 mmol/L 3.5-5.1 [facility] Work Phone: [phone] Sodium [Moles/Vol] 142 mmol/L 136-145 [facility] Work Phone: [phone] WBC (Bld) [#/Vol] 6.5 10*3/uL 4.4-11.0 [facility] Work Phone: Blood erythrocytes count (nu mber/volume)on 11-12-2021 RBC (Bld) [#/Vol] 4.50 10*6/uL 4.6-6.2 [facility] Work Phone: Blood hemoglobin measurement (mass/volume)on 11-12-2021 Hemoglobin (Bld) [Mass/Vol] 14.4 g/dL 13.0-16.5 [facility] Work Phone: Blood lymphocytes/100 leukoc yteson 11-12-2021 Lymphocytes/100 WBC (Bld) 15.5 % 19-41 [facility] Work Phone: Blood monocytes/100 leukocyt eson 11-12-2021 Monocytes/100 WBC (Bld) 9.8 % 0-10 [facility] Work Phone: Blood platelet mean volumeon 11-12-2021 Platelet mean volume (Bld) [Entitic vol] 10.9 fL 6.2-12.0 [facility] Work Phone: Determination of erythrocyte mean corpuscular volume (MCV)on 11-12-2021 MCV (RBC) [Entitic vol] 97.3 fL 80-94 [facility] Work Phone: Hematocrit Auto (Bld) [Volum e fraction]on 11-12-2021 Hematocrit (Bld) [Volume fraction] 43.8 % 40-54 [facility] Work Phone: Laboratory - Chemistry and C hemistry - challengeon 11-12-2021 CO2 [Moles/Vol] 26.0 mmol/L 21.0-32.0 [facility] Work Phone: Urea nitrogen/Creatinine [Mass ratio] 16.4 mg/mg 10-20 [facility] Work Phone: Laboratory - Hematology and Cell countson 11-12-2021 Erythrocyte distribution width (RBC) [Entitic vol] 53.1 fL 35.1-43.9 [facility] Work Phone: Erythrocyte distribution width (RBC) [Ratio] 14.8 % 11.6-14.6 [facility] Work Phone: Immature granulocytes/100 WBC (Bld) 0.300 % 0.0-0.9 [facility] Work Phone: Comment on above: IG% - Immature Granu locytes (promyelocytes, myelocytes and metamyelocytes) > 1% indicates that a LEFT SHIFT is Present. MCH (RBC) [Entitic mass] 32.0 pg 27.0-32.0 [facility] Work Phone: Nucleated RBC/100 WBC (Bld) [Ratio] 0 % 0-5 [facility] Work Phone: MCHC Auto (RBC) [Mass/Vol]on 11-12-2021 MCHC (RBC) [Mass/Vol] 32.9 g/dL 32-36 [facility] Work Phone: No Panel Informationon 11-12 Estimated GFR (MDRD) Amer 102 mL/min >60 [facility] Work Phone: Comment on above: GFR Calc Estimated GFR (MDRD) Non-Af Amer 84 mL/min >60 [facility] Work Phone: Comment on above: Non- GFR Calc Platelets bldon 11-12-2021 Platelets (Bld) [#/Vol] 181 10*3/uL 150-450 [facility] Work Phone: Serum or plasma calcium siobhan urement (mass/volume)on 11-12-2021 Calcium [Mass/Vol] 8.7 mg/dL 8.5-10.1 [facility] Work Phone: Serum or plasma creatinine m easurement (mass/volume)on 11-12-2021 Creatinine [Mass/Vol] 0.92 mg/dL 0.70-1.30 [facility] Work Phone: Comment on above: The validity of the calculated GFR & GFRAA in patients over 70 years has not been determined. Clinical correlation is essential. Serum or plasma urea nitroge n measurement (mass/volume)on 11-12-2021 Urea nitrogen [Mass/Vol] 15 mg/dL 7-18 [facility] Work Phone: Thin prep Papanicolaou smear with manual screeningon 11-12-2021 Thin prep Papanicolaou smear with manual screening 7 5-15 [facility] Work Phone: Absolute lymphocyte counton 10-29-2021 Lymphocytes Auto (Unsp spec) [#/Vol] 0.96 10*3/uL 0.83-4.51 [facility] Work Phone: Basophil percentageon 2021 Basophils/100 WBC (Bld) 0.5 % 0-1 [facility] Work Phone: [phone] Chloride [Moles/Vol] 110 mmol/L 98-107 [facility] Work Phone: [phone] Eosinophils/100 WBC (Bld) 1.9 % 0-5 [facility] Work Phone: Glucose [Mass/Vol] 93 mg/dL 74-106 [facility] Work Phone: [phone] Neutrophils (Bld) [#/Vol] 4.5 10*3/uL 2.0-7.7 [facility] Work Phone: [phone] Neutrophils/100 WBC (Bld) 70.1 % 47-70 [facility] Work Phone: [phone] Potassium [Moles/Vol] 3.8 mmol/L 3.5-5.1 [facility] Work Phone: [phone] Sodium [Moles/Vol] 142 mmol/L 136-145 [facility] Work Phone: [phone] WBC (Bld) [#/Vol] 6.4 10*3/uL 4.4-11.0 [facility] Work Phone: Blood erythrocytes count (nu mber/volume)on 10-29-2021 RBC (Bld) [#/Vol] 4.38 10*6/uL 4.6-6.2 [facility] Work Phone: [phone] Blood hemoglobin measurement (mass/volume)on 10-29-2021 Hemoglobin (Bld) [Mass/Vol] 13.9 g/dL 13.0-16.5 [facility] Work Phone: [phone] Blood lymphocytes/100 leukoc yteson 10-29-2021 Lymphocytes/100 WBC (Bld) 15.1 % 19-41 [facility] Work Phone: Blood monocytes/100 leukocyt eson 10-29-2021 Monocytes/100 WBC (Bld) 12.1 % 0-10 [facility] Work Phone: Blood platelet mean volumeon 10-29-2021 Platelet mean volume (Bld) [Entitic vol] 11.2 fL 6.2-12.0 [facility] Work Phone: Determination of erythrocyte mean corpuscular volume (MCV)on 10-29-2021 MCV (RBC) [Entitic vol] 96.8 fL 80-94 [facility] Work Phone: Hematocrit Auto (Bld) [Volum e fraction]on 10-29-2021 Hematocrit (Bld) [Volume fraction] 42.4 % 40-54 [facility] Work Phone: Laboratory - Chemistry and C hemistry - challengeon 10-29-2021 CO2 [Moles/Vol] 27.0 mmol/L 21.0-32.0 [facility] Work Phone: Urea nitrogen/Creatinine [Mass ratio] 11.1 mg/mg 10-20 [facility] Work Phone: Laboratory - Hematology and Cell countson 10-29-2021 Erythrocyte distribution width (RBC) [Entitic vol] 52.1 fL 35.1-43.9 [facility] Work Phone: Erythrocyte distribution width (RBC) [Ratio] 14.6 % 11.6-14.6 [facility] Work Phone: Immature granulocytes/100 WBC (Bld) 0.300 % 0.0-0.9 [facility] Work Phone: Comment on above: IG% - Immature Granu locytes (promyelocytes, myelocytes and metamyelocytes) > 1% indicates that a LEFT SHIFT is Present. MCH (RBC) [Entitic mass] 31.7 pg 27.0-32.0 [facility] Work Phone: Nucleated RBC/100 WBC (Bld) [Ratio] 0 % 0-5 [facility] Work Phone: MCHC Auto (RBC) [Mass/Vol]on 10-29-2021 MCHC (RBC) [Mass/Vol] 32.8 g/dL 32-36 [facility] Work Phone: No Panel Informationon 10-29 Estimated GFR (MDRD) Amer 84 mL/min >60 [facility] Work Phone: Comment on above: GFR Calc Estimated GFR (MDRD) Non-Af Amer 70 mL/min >60 [facility] Work Phone: Comment on above: Non- GFR Calc Platelets bldon 10-29-2021 Platelets (Bld) [#/Vol] 187 10*3/uL 150-450 [facility] Work Phone: Serum or plasma calcium siobhan urement (mass/volume)on 10-29-2021 Calcium [Mass/Vol] 8.8 mg/dL 8.5-10.1 [facility] Work Phone: Serum or plasma creatinine m easurement (mass/volume)on 10-29-2021 Creatinine [Mass/Vol] 1.08 mg/dL 0.70-1.30 [facility] Work Phone: Comment on above: The validity of the calculated GFR & GFRAA in patients over 70 years has not been determined. Clinical correlation is essential. Serum or plasma urea nitroge n measurement (mass/volume)on 10-29-2021 Urea nitrogen [Mass/Vol] 12 mg/dL 7-18 [facility] Work Phone: Thin prep Papanicolaou smear with manual screeningon 10-29-2021 Thin prep Papanicolaou smear with manual screening 5 5-15 [facility] Work Phone: CNPNon 10-23-2021 [employer] [facility] KEL DILLARD ([id number]) 1940 M Date Time Provider Department 10/23/21 NICOLAS CARDENAS INTMWS During your visit today, we recorded the following information about you: Flora Wood LPN 10/23/2021 11:54 AM Signed Per [facility] discharge info pt was discharged to [facility] 10/22/21. Allergies As of Date: 10/23/2021 [...] WOOD LPN on 10/23/21 Normal [facility] Laboratory - Chemistry and C hemistry - challengeon 10-22-2021 CK [Catalytic activity/Vol] 1616 U/L 39-308 [facility] Work Phone: [phone] Absolute lymphocyte counton 10-21-2021 Lymphocytes Auto (Unsp spec) [#/Vol] 0.75 10*3/uL 0.83-4.51 [facility] Work Phone: [phone] Basophil percentageon 2021 Basophils/100 WBC (Bld) 0.1 % 0-1 [facility] Work Phone: [phone] Chloride [Moles/Vol] 107 mmol/L 98-107 [facility] Work Phone: [phone] Eosinophils/100 WBC (Bld) 0.0 % 0-5 [facility] Work Phone: [phone] Glucose [Mass/Vol] 144 mg/dL 74-106 [facility] Work Phone: Comment on above: Fasting Glucose resu lt greater than or equal to 126 mg/dL suggests DIABETES MELLITUS per A.D.A. criteria. Neutrophils (Bld) [#/Vol] 11.4 10*3/uL 2.0-7.7 [facility] Work Phone: Neutrophils/100 WBC (Bld) 85.4 % 47-70 [facility] Work Phone: Potassium [Moles/Vol] 3.7 mmol/L 3.5-5.1 [facility] Work Phone: Sodium [Moles/Vol] 141 mmol/L 136-145 [facility] Work Phone: WBC (Bld) [#/Vol] 13.4 10*3/uL 4.4-11.0 [facility] Work [facility]: Blood erythrocytes count (nu mber/volume)on 10-21-2021 RBC (Bld) [#/Vol] 5.04 10*6/uL 4.6-6.2 [facility] Work Phone: Blood hemoglobin measurement (mass/volume)on 10-21-2021 Hemoglobin (Bld) [Mass/Vol] 15.7 g/dL 13.0-16.5 [facility] Work Phone: Blood lymphocytes/100 leukoc yteson 10-21-2021 Lymphocytes/100 WBC (Bld) 5.6 % 19-41 [facility] Work Phone: Blood monocytes/100 leukocyt eson 10-21-2021 Monocytes/100 WBC (Bld) 8.5 % 0-10 [facility] Work Phone: Blood platelet mean volumeon 10-21-2021 Platelet mean volume (Bld) [Entitic vol] 11.2 fL 6.2-12.0 [facility] Work Phone: Determination of erythrocyte mean corpuscular volume (MCV)on 10-21-2021 MCV (RBC) [Entitic vol] 93.8 fL 80-94 [facility] Work Phone: Hematocrit Auto (Bld) [Volum e fraction]on 08-23-2022 Hematocrit (Bld) [Volume fraction] 47.3 % 40-54 [facility] Work Phone: Laboratory - Chemistry and C hemistry - challengeon 10-21-2021 CO2 [Moles/Vol] 26.0 mmol/L 21.0-32.0 [facility] Work Phone: Urea nitrogen/Creatinine [Mass ratio] 14.2 mg/mg 10-20 [facility] Work Phone: Laboratory - Hematology and Cell countson 10-21-2021 Erythrocyte distribution width (RBC) [Entitic vol] 50.5 fL 35.1-43.9 [facility] Work Phone: Erythrocyte distribution width (RBC) [Ratio] 14.7 % 11.6-14.6 [facility] Work Phone: Immature granulocytes/100 WBC (Bld) 0.400 % 0.0-0.9 [facility] Work Phone: Comment on above: IG% - Immature Granu locytes (promyelocytes, myelocytes and metamyelocytes) > 1% indicates that a LEFT SHIFT is Present. MCH (RBC) [Entitic mass] 31.2 pg 27.0-32.0 [facility] Work Phone: Nucleated RBC/100 WBC (Bld) [Ratio] 0 % 0-5 [facility] Work Phone: MCHC Auto (RBC) [Mass/Vol]on 10-21-2021 MCHC (RBC) [Mass/Vol] 33.2 g/dL 32-36 [facility] Work Phone: No Panel Informationon 10-21 Estimated Creatinine Clearance Calc 48.76 ml/min [facility] Work Phone: Estimated GFR (MDRD) Amer 80 mL/min >60 [facility] Work Phone: Comment on above: GFR Calc Estimated GFR (MDRD) Non-Af Amer 66 mL/min >60 [facility] Work Phone: Comment on above: Non- GFR Calc Thyroid Stimulating Hormone (TSH) 1.56 uIU/mL 0.358-3.74 [facility] Work Phone: Vitamin D 25-Hydroxy 10.8 ng/mL [facility] Work Phone: Comment on above: Vitamin D 25(OH) Sta tus Range Deficiency <20 ng/mL (50nmol/L) Insufficiency 20 - 30 ng/mL (50 - 75 nmol/L) Sufficiency 30 - 100 ng/mL (75 - 250 nmol/L) Toxicity >100 ng/mL (>250 nmol/L) Platelets bldon 10-21-2021 Platelets (Bld) [#/Vol] 219 10*3/uL 150-450 [facility] Work Phone: Serum or plasma calcium siobhan urement (mass/volume)on 10-21-2021 Calcium [Mass/Vol] 9.1 mg/dL 8.5-10.1 [facility] Work Phone: Serum or plasma creatinine m easurement (mass/volume)on 10-21-2021 Creatinine [Mass/Vol] 1.13 mg/dL 0.70-1.30 [facility] Work Phone: Comment on above: The validity of the calculated GFR & GFRAA in patients over 70 years has not been determined. Clinical correlation is essential. Serum or plasma urea nitroge n measurement (mass/volume)on 10-21-2021 Urea nitrogen [Mass/Vol] 16 mg/dL 7-18 [facility] Work Phone: Thin prep Papanicolaou smear with manual screeningon 10-21-2021 Thin prep Papanicolaou smear with manual screening 8 5-15 [facility] Work Phone: Absolute lymphocyte counton 10-20-2021 Lymphocytes Auto (Unsp spec) [#/Vol] 0.59 10*3/uL 0.83-4.51 [facility] Work Phone: Basophil percentageon 2021 Basophil percentage 5-10 SEEN /hpf 0-5 [facility] Work Phone: Basophils/100 WBC (Bld) 0.1 % 0-1 [facility] Work Phone: Chloride [Moles/Vol] 107 mmol/L 98-107 [facility] Work Phone: Eosinophils/100 WBC (Bld) 0.0 % 0-5 [facility] Work Phone: Glucose [Mass/Vol] 110 mg/dL 74-106 [facility] Work Phone: Comment on above: Fasting Glucose resu lt from 100 to 125 mg/dL suggests IMPAIRED HOMEOSTASIS per A.D.A. criteria. Neutrophils (Bld) [#/Vol] 11.6 10*3/uL 2.0-7.7 [facility] Work Phone: Neutrophils/100 WBC (Bld) 85.8 % 47-70 [facility] Work Phone: Potassium [Moles/Vol] 3.6 mmol/L 3.5-5.1 [facility] Work Phone: Sodium [Moles/Vol] 141 mmol/L 136-145 [facility] Work Phone: WBC (Bld) [#/Vol] 13.5 10*3/uL 4.4-11.0 [facility] Work Phone: Bilirubin Test strip Ql (U)o n 10-20-2021 Bilirubin Ql (U) Negative Negative [facility] Work Phone: Blood erythrocytes count (nu mber/volume)on 10-20-2021 RBC (Bld) [#/Vol] 5.14 10*6/uL 4.6-6.2 [facility] Work Phone: Blood hemoglobin measurement (mass/volume)on 10-20-2021 Hemoglobin (Bld) [Mass/Vol] 15.9 g/dL 13.0-16.5 [facility] Work Phone: Blood lymphocytes/100 leukoc yteson 10-20-2021 Lymphocytes/100 WBC (Bld) 4.4 % 19-41 [facility] Work Phone: Blood manual differential co mment interpretation (narrative result)on 10-20-2021 Manual differential comment Wei (Bld) [Interp] SEE COMMENT [facility] Work Phone: Comment on above: LYMPHOPENIA NOTED Blood monocytes/100 leukocyt eson 10-20-2021 Monocytes/100 WBC (Bld) 9.0 % 0-10 [facility] Work Phone: Blood platelet adequacy dete ction by light microscopyon 10-20-2021 Platelets LM Ql (Bld) ADEQUATE ADEQ [facility] Work Phone: Blood platelet mean volumeon 10-20-2021 Platelet mean volume (Bld) [Entitic vol] 10.4 fL 6.2-12.0 [facility] Work Phone: Determination of erythrocyte mean corpuscular volume (MCV)on 10-20-2021 MCV (RBC) [Entitic vol] 92.8 fL 80-94 [facility] Work Phone: Hematocrit Auto (Bld) [Volum e fraction]on 10-20-2021 Hematocrit (Bld) [Volume fraction] 47.7 % 40-54 [facility] Work Phone: Hyaline casts LM.LPF (Urine sed) [#/Area]on 10-20-2021 Hyaline casts (Urine sed) [#/Area] 0 /[LPF] 0-5 [facility] Work Phone: Ketones Test strip Ql (U)on 10-20-2021 Ketones Ql (U) 50 mg/dl Negative [facility] Work Phone: Laboratory - Chemistry and C hemistry - challengeon 10-20-2021 CO2 [Moles/Vol] 25.0 mmol/L 21.0-32.0 [facility] Work Phone: Urea nitrogen/Creatinine [Mass ratio] 15.0 mg/mg 10-20 [facility] Work Phone: Laboratory - Hematology and Cell countson 10-20-2021 Anisocytosis Ql (Bld) RARE [facility] Work Phone: Erythrocyte distribution width (RBC) [Entitic vol] 48.4 fL 35.1-43.9 [facility] Work Phone: Erythrocyte distribution width (RBC) [Ratio] 14.4 % 11.6-14.6 [facility] Work Phone: Immature granulocytes/100 WBC (Bld) 0.700 % 0.0-0.9 [facility] Work Phone: Comment on above: IG% - Immature Granu locytes (promyelocytes, myelocytes and metamyelocytes) > 1% indicates that a LEFT SHIFT is Present. MCH (RBC) [Entitic mass] 30.9 pg 27.0-32.0 [facility] Work Phone: Nucleated RBC/100 WBC (Bld) [Ratio] 0 % 0-5 [facility] Work Phone: MCHC Auto (RBC) [Mass/Vol]on 10-20-2021 MCHC (RBC) [Mass/Vol] 33.3 g/dL 32-36 [facility] Work Phone: Macrocytes detectionon 10-20 Macrocytes Ql (Bld) RARE [facility] Work Phone: Mucus LM Ql (Urine sed)on Mucus Ql (Urine sed) 0 SEEN /hpf [facility] Work Phone: Nitrite Test strip Ql (U)on 10-20-2021 Nitrite Ql (U) Negative Negative [facility] Work Phone: No Panel Informationon 10-20 Estimated Creatinine Clearance Calc 53.23 ml/min [facility] Work Phone: Estimated GFR (MDRD) Amer 85 mL/min >60 [facility] Work Phone: Comment on above: GFR Calc Estimated GFR (MDRD) Non-Af Amer 70 mL/min >60 [facility] Work Phone: Comment on above: Non- GFR Calc Platelets bldon 10-20-2021 Platelets (Bld) [#/Vol] 198 10*3/uL 150-450 [facility] Work Phone: Protein Test strip Ql (U)on 10-20-2021 Protein Ql (U) 30 mg/dl Negative [facility] Work Phone: RBC morphologyon 10-20-2021 RBC morphology finding Nom (Bld) N CHROM NORMAL NORM C&C [facility] Work Phone: Serum or plasma calcium siobhan urement (mass/volume)on 10-20-2021 Calcium [Mass/Vol] 9.1 mg/dL 8.5-10.1 [facility] Work Phone: Serum or plasma creatinine m easurement (mass/volume)on 10-20-2021 Creatinine [Mass/Vol] 1.07 mg/dL 0.70-1.30 [facility] Work Phone: Comment on above: The validity of the calculated GFR & GFRAA in patients over 70 years has not been determined. Clinical correlation is essential. Serum or plasma urea nitroge n measurement (mass/volume)on 10-20-2021 Urea nitrogen [Mass/Vol] 16 mg/dL 7-18 [facility] Work Phone: Squamous epithelial cells de tection in urine sediment by light microscopyon 10-20-2021 Epithelial cells.squamous LM Ql (Urine sed) 0 SEEN /hpf 0-5 [facility] Work Phone: Thin prep Papanicolaou smear with manual screeningon 10-20-2021 Thin prep Papanicolaou smear with manual screening 9 5-15 [facility] Work Phone: Urine blood detectionon 09-30 RBC Ql (U) 250 /ul Negative [facility] Work Phone: RBC Ql (U) 0 SEEN /hpf 0-5 [facility] Work Phone: Urine clarityon 10-20-2021 Clarity (U) Sl. Cloudy Clear [facility] Work Phone: Urine color determinationon 10-20-2021 Color (U) Kristina Yellow [facility] Work Phone: Urine glucose detectionon Glucose Ql (U) Normal mg/dl Normal [facility] Work Phone: Urine leukocyte esterase det ection by dipstickon 10-20-2021 Leukocyte esterase Test strip Ql (U) 25 /ul Negative [facility] Work Phone: Urine pHon 10-20-2021 pH (U) 5.0 [pH] 5.0 - 8.0 [facility] Work Phone: Urine sediment bacteria coun t by microscopy (number/high power field)on 10-20-2021 Bacteria LM.HPF (Urine sed) [#/Area] 1 /[HPF] None Seen [facility] Work Phone: Urine specific gravity measu rementon 10-20-2021 Specific gravity (U) [Rel density] 1.025 1.002-1.030 [facility] Work Phone: Urobilinogen Auto test strip Ql (U)on 10-20-2021 Urobilinogen Ql (U) 1 mg/dl Normal [facility] Work Phone: CNOVon 09-29-2021 CNOV Office Visit (INTMWS) KEL DILLARD ([id number]) 1940 M Date Time Provider Department 09/29/21 4:40 PM NICOLAS CARDENAS INTMWS During your visit today, we recorded the following information about you: Temperature Pulse Respiration Blood pressure [facility] C[facility] Tele[facility] (INTMWS) KEL DILLARD Angel ([id number]) 1940 M Date Time Provider Department 07/15/21 NICOLAS CARDENAS INTMWS During your visit today, we recorded the following information about you: Karen Matias RN 07/15/2021 1:40 PM Signed Yesenia, Admissions staff member at [facility] calling to state patient's son Jhonny has reached out to them to request patient possibly be admitted into their memory care unit due to cognition concerns. Yesenia is requesting notes from patient's last OV be faxed to them at [phone]. This nurse contacted son Jhonny to verify the request and he confirmed it was ok to share requested information. Information faxed as requested. Karen Matias RN Allergies As of Date: 07/15/2021 (No Known Allergies) Date Reviewed: 05/12/2021 Reviewed by: Dori Martines APRN.PAVING CONTRACTOR - Fully Assessed Reason for Visit: fax [...] Status:Closed by KAREN MATIAS on 07/15/21 Normal [facility] Culture, urine Bacteria identified Cx Nom (U) Positive [facility] Work Phone: Vital Signs Date Time Vital Sign Value Performing Clinician Faci lity 12-15-2024 08:00-0400 Body height 172.[address] David Miramontes MD Work Phone: [facility] 11-02-2024 05:29-0400 Respiratory rate 18 /min Dr. David Miramontes MD Work Phone: [facility] 11-02-2024 05:22-0400 Body temperature 98.2 [degF] Dr. David Miramontes MD Work Phone: [facility] 11-02-2024 05:22-0400 Diastolic blood pressure 80 mm[Hg] Dr. David Miramontes MD Work Phone: [facility] 11-02-2024 05:22-0400 Heart rate 67 /min Dr. David Miramontes MD Work Phone: [facility] 11-02-2024 05:22-0400 SaO2% (BldA) [Mass fraction] 98 % Dr. David Miramontes MD Work Phone: [facility] 11-02-2024 05:22-0400 Systolic blood pressure 154 mm[Hg] Dr. David Miramontes MD Work Phone: [facility] 11-02-2024 03:30-0400 Body height 172.[address] David Miramontes MD Work Phone: [facility] 11-02-2024 03:30-0400 Body mass index (BMI) [Ratio] 29.7 kg/m2 Dr. David Miramontes MD Work Phone: [facility] 11-02-2024 03:30-0400 Body weight 88.[address] David Miramontes MD Work Phone: [facility] 10-29-2024 11:28-0400 Body temperature 98.3 [degF] Dr. David Miramontes MD Work Phone: [facility] 10-29-2024 11:28-0400 Diastolic blood pressure 84 mm[Hg] Dr. David Miramontes MD Work Phone: [facility] 10-29-2024 11:28-0400 Heart rate 66 /min Dr. David Miramontes MD Work Phone: [facility] 10-29-2024 11:28-0400 Respiratory rate 16 /min Dr. David Miramontes MD Work Phone: [facility] 10-29-2024 11:28-0400 SaO2% (BldA) [Mass fraction] 99 % Dr. David Miramontes MD Work Phone: [facility] 10-29-2024 11:28-0400 Systolic blood pressure 118 mm[Hg] Dr. David Miramontes MD Work Phone: [facility] 10-29-2024 09:52-0400 Body height 172.[address] David Miramontes MD Work Phone: [facility] 10-29-2024 09:52-0400 Body mass index (BMI) [Ratio] 29.1 kg/m2 Dr. David Miramontes MD Work Phone: [facility] 10-29-2024 09:52-0400 Body weight [address] David Miramontes MD Work Phone: [facility] 10-27-2024 22:00-0400 Diastolic blood pressure 55 mm[Hg] Dr. David Miramontes MD Work Phone: [facility] 10-27-2024 22:00-0400 Heart rate 65 /min Dr. David Miramontes MD Work Phone: [facility] 10-27-2024 22:00-0400 Respiratory rate 16 /min Dr. David Miramontes MD Work Phone: [facility] 10-27-2024 22:00-0400 Systolic blood pressure 146 mm[Hg] Dr. David Miramontes MD Work Phone: [facility] 10-27-2024 21:52-0400 Body temperature 98 [degF] Dr. David Miramontes MD Work Phone: [facility] 10-27-2024 21:52-0400 SaO2% (BldA) [Mass fraction] 96 % Dr. David Miramontes MD Work Phone: [facility] 10-27-2024 20:34-0400 Body height 172.[address] David Miramontes MD Work Phone: [facility] 10-27-2024 20:34-0400 Body mass index (BMI) [Ratio] 30.2 kg/m2 Dr. David Miramontes MD Work Phone: [facility] 10-27-2024 20:34-0400 Body weight 90.[address] David Miramontes MD Work Phone: [facility] 09-15-2024 13:51-0400 Body height 175.[address] David Miramontes MD Work Phone: [facility] 09-15-2024 12:10-0400 Body height 175.[address] David Miramontes MD Work Phone: [facility] 09-13-2024 11:44-0400 Body height 175.[address] David Miramontes MD Work Phone: [facility] 12-02-2022 10:40-0400 Body height 175.[address] Nicolas Cardenas Work Phone: [facility] 04-02-2022 14:41-0500 Body height 175.[address] Nicolas Cardenas Work Phone: [facility] 10-22-2021 08:30-0400 Body temperature 98.2 [degF] Dr. Nicolas Cardenas Work Phone: [facility] Work Phone: 10-22-2021 08:30-0400 Diastolic blood pressure 71 mm[Hg] Dr. Nicolas Cardenas Work Phone: [facility] Work Phone: 10-22-2021 08:30-0400 Heart rate 59 /min Dr. Nicolas Cardenas Work Phone: [facility] Work Phone: 10-22-2021 08:30-0400 Respiratory rate 16 /min Dr. Nicolas Cardenas Work Phone: [facility] Work Phone: 10-22-2021 08:30-0400 SaO2% (BldA) [Mass fraction] 95 % Dr. Nicolas Cardenas Work Phone: [facility] Work Phone: 10-22-2021 08:30-0400 Systolic blood pressure 125 mm[Hg] Dr. Nicolas Cardenas Work Phone: [facility] Work Phone: 10-21-2021 01:00-0400 Body height 175.[address] Nicolas Cardenas Work Phone: [facility] Work Phone: 10-21-2021 01:00-0400 Body mass index (BMI) [Ratio] 28.1 kg/m2 Dr. Nicolas Cardenas Work Phone: [facility] Work Phone: 10-21-2021 01:00-0400 Body weight 86.[address] Nicolas Cardenas Work Phone: [facility] Work Phone: 10-21-2021 00:46-0400 Body temperature 97.9 [degF] Dr. Nicolas Cardenas Work Phone: [facility] Work Phone: 10-21-2021 00:46-0400 Diastolic blood pressure 74 mm[Hg] Dr. Nicolas Cardenas Work Phone: [facility] Work Phone: 10-21-2021 00:46-0400 Heart rate 60 /min Dr. Nicolas Cardenas Work Phone: [facility] Work Phone: 10-21-2021 00:46-0400 Respiratory rate 25 /min Dr. Nicolas Cardenas Work Phone: [facility] Work Phone: 10-21-2021 00:46-0400 SaO2% (BldA) [Mass fraction] 94 % Dr. Nicolas Cardenas Work Phone: [facility] Work Phone: 10-21-2021 00:46-0400 Systolic blood pressure 115 mm[Hg] Dr. Nicolas Cardenas Work Phone: [facility] Work Phone: 10-20-2021 20:20-0400 Body height 175.[address] Nicolas Cardenas Work Phone: [facility] Work Phone: 10-20-2021 20:20-0400 Body mass index (BMI) [Ratio] 28.6 kg/m2 Dr. Nicolas Cardenas Work Phone: [facility] Work Phone: 10-20-2021 20:20-0400 Body weight 87.[address] Nicolas Cardenas Work Phone: [facility] Work Phone: 09-29-2021 16:45-0400 Body height 165.7 cm Nicolas Cardenas MD Work Phone: [facility] 09-29-2021 16:45-0400 Body temperature 97.3 [degF] Nicolas Cardenas MD Work Phone: [facility] 09-29-2021 16:45-0400 Body weight 87.09 kg Nicolas Cardenas MD Work Phone: [facility] 09-29-2021 16:45-0400 Diastolic blood pressure 76 mm[Hg] Nicolas Cardenas MD Work Phone: [facility] 09-29-2021 16:45-0400 Heart rate 60 /min Nicolas Cardenas MD Work Phone: [facility] 09-29-2021 16:45-0400 Respiratory rate 16 /min Nicolas Cardenas MD Work Phone: [facility] 09-29-2021 16:45-0400 Systolic blood pressure 130 mm[Hg] Nicolas Cardenas MD Work Phone: [facility] Encounters Encounter Date Encounter Type Care Provider Facility Start: 12-18-2024 End: 12-18-2024 ambulatory Efewongbe Oleghe Facility:[facility] Start: 12-11-2024 End: 12-11-2024 ambulatory Efewongbe Oleghe Facility:[facility] Start: 12-08-2024 End: 12-08-2024 ambulatory Efewongbe Oleghe Facility:[facility] Start: 11-27-2024 ambulatory Efewongbe Oleghe Facili ty:[facility] Start: 11-22-2024 Registered Referred David Miramontes MD -[facility] Start: 11-22-2024 End: 11-22-2024 ambulatory Efewongbe Oleghe Facility:[facility] Start: 11-20-2024 End: 11-20-[address] David Miramontes MD Work Phone: -[facility] Start: 11-20-2024 End: 11-20-[address] Edson Quinn MD -[facility] Work Phone: Start: 11-07-2024 Registered Referred David Miramontes MD -[facility] [place] Start: 11-07-2024 End: 11-07-2024 ambulatory Efewongbe Oleghe Facility:[facility] Start: 11-03-2024 End: 11-03-[address] David Miramontes MD Work Phone: [phone] [place] [address] Start: 11-03-2024 End: 11-03-2024 Patient encounter procedure Marimar Mesha [facility] Work Phone: Start: 11-02-2024 End: 11-02-[address] David Miramontes MD Work Phone: [facility] Start: 11-02-2024 End: 11-02-2024 Patient encounter procedure Marimar Mesha [facility] Work Phone: Start: 11-02-2024 Registered Referred David Miramontes MD -[facility] Start: 11-02-2024 End: 11-02-2024 Emergency department patient visit Dr. David Miramontes MD Work Phone: -Emergency Department Work Phone: Start: 10-31-2024 End: 10-31-[address] David Miramontes MD Work Phone: [facility] Start: 10-31-2024 End: 10-31-[address] David Miramontes MD -[facility] Work Phone: Start: 10-29-2024 End: 10-29-2024 Emergency department patient visit Dr. David Miramontes MD Work Phone: -Emergency Department Work Phone: Start: 10-27-2024 End: 10-27-2024 Emergency department patient visit Dr. David Miramontes MD Work Phone: -Emergency Department Work Phone: Start: 09-29-2024 End: 09-29-[address] David Miramontes MD Work Phone: [facility] Start: 09-29-2024 End: 09-29-2024 Patient encounter procedure Dasia Barrett [facility] Work Phone: Start: 09-25-2024 End: 09-25-2024 Patient encounter procedure Marimar Zimmer [facility] Work Phone: Start: 09-25-2024 End: 09-25-[address] David Miramontes MD Work Phone: [facility] Start: 09-25-2024 Registered Referred David AdamKrystle [place] Start: 09-19-2024 End: 09-19-[address] David Miramontes MD Work Phone: [facility] Start: 09-19-2024 End: 09-19-2024 Patient encounter procedure Marimar Zimmer [facility] Work Phone: Start: 09-07-2024 Registered Referred David BILLS [place] Start: 09-07-2024 End: 09-07-2024 ambulatory David GARCIA Facility:[facility] Start: 08-31-2024 Registered Referred David BILLS [place] Start: 08-31-2024 End: 08-31-2024 ambulatory David GARCIA Facility:[facility] Start: 08-29-2024 End: 08-29-[address] David Miramontes MD Work Phone: [facility] Start: 08-29-2024 End: 08-29-[address] David Miramontes MD -[facility] Work Phone: Start: 08-25-2024 End: 08-25-[address] David Miramontes MD Work Phone: [facility] Start: 08-25-2024 End: 08-25-2024 Patient encounter procedure Marimar Zimmer [facility] Work Phone: Start: 08-22-2024 ambulatory David GARCIA Fa cility:[facility] Start: 08-22-2024 [facility] Start: 08-21-2024 End: 08-21-[address] David Miramontes MD Work Phone: [facility] Start: 08-21-2024 End: 08-21-2024 Patient encounter procedure Marimar Zimmer [facility] Work Phone: Start: 08-21-2024 End: 08-21-[address] David Miramontes MD Work Phone: [facility] Start: 08-21-2024 End: 08-21-[address] Edson Quinn MD -[facility] Work Phone: Start: 08-15-2024 End: 08-15-[address] David Miramontes MD Work Phone: [facility] Start: 08-15-2024 End: 08-15-2024 Patient encounter procedure Marimar Zimmer [facility] Work Phone: Start: 08-02-2024 ambulatory David GARCIA Fa cility:[facility] Start: 08-02-2024 [facility] Start: 08-01-2024 ambulatory David GARCIA Fa cility:[facility] Start: 08-01-2024 Registered Referred Davdi AdamKrystle [facility] Start: 07-21-2024 Registered Referred David AdamKrystle [facility] Start: 07-20-2024 End: 07-21-[address] David Miramontes MD Work Phone: [facility] Start: 07-20-2024 End: 07-20-2024 Patient encounter procedure Marimar Zimmer [facility] Work Phone: Start: 07-18-2024 End: 07-18-[address] David Miramontes MD Work Phone: [facility] Start: 07-18-2024 End: 07-18-[address] David Miramontes MD -[facility] Work Phone: Start: 07-17-2024 End: 07-17-2024 Follow-up encounter Dianasheila Frazierletdelonit PRINCIPAL WEB DEVELOPER.PAVING CONTRACTOR Work Phone: [facility] Comment on above: Results Start: 07-14-2024 End: 07-14-2024 Office outpatient new 30 minutes Diana Andres Postlethwait PRINCIPAL WEB DEVELOPER.PAVING CONTRACTOR Work Phone: [facility] Comment on above: Gross hematuria (Lise wallace Dx) Start: 07-14-2024 End: 07-14-2024 ambulatory DIANA ANDRES POSTLETHWAIT Facility:[facility] Start: 07-04-2024 End: 07-04-[address] David Miramontes MD Work Phone: [facility] Start: 07-04-2024 End: 07-04-2024 Patient encounter procedure Marimar Zimmer NP-C -[facility] Work Phone: Start: 06-23-2024 End: 06-23-[address] David Miramontes MD Work Phone: [facility] Work Phone: Start: 06-23-2024 End: 06-23-2024 Departed Referred David Miramontes MD -[facility] Start: 06-23-2024 End: 06-23-2024 ambulatory David Miramontes Facility:[facility] Start: 06-05-2024 End: 06-05-[address] David Miramontes MD Work Phone: [facility] Work Phone: Start: 06-05-2024 End: 06-05-2024 Departed Referred David Miramontes MD -[facility] Start: 06-05-2024 Registered Referred David AdamKrystle [place] Start: 06-05-2024 End: 06-05-2024 ambulatory Efwaynefeliciaingris Guerrae Facility:[facility] Start: 05-30-2024 ambulatory Efdanay Miramontes Facili ty:[facility] Start: 05-30-2024 Non-patient / Non-visit Dr. Josiah Klein MD -[facility] Start: 05-30-2024 End: 05-30-[address] David Miramontes MD -[facility] Work Phone: Start: 05-30-2024 End: 05-30-2024 ambulatory Marimar Zimmer CHILD CARE SUPERVISOR Facility:[facility] Start: 05-30-2024 End: 05-30-2024 Patient encounter procedure Marimar Zimmer CHILD CARE SUPERVISOR- -[facility] Work Phone: Start: 05-30-2024 End: 05-30-[address] David Miramontes MD Work Phone: [facility] Work Phone: Start: 05-30-2024 End: 05-30-2024 Departed Referred David AdamKrystle Pickett Start: 05-30-2024 Registered Referred David AdamKrystle [place] Start: 05-30-2024 End: 05-30-2024 ambulatory Efwaynecarleen Pinkamnatereza Facility:[facility] Start: 05-23-2024 End: 05-23-2024 ambulatory Efwaynefeliciaingris Pinkiman Facility:[facility] Start: 05-23-2024 End: 05-23-[address] David Miramontes MD -[facility] Work Phone: Start: 05-22-2024 End: 05-22-[address] David Miramontes MD Work Phone: [facility] Work Phone: Start: 05-22-2024 End: 05-22-2024 Departed Referred David AdamKrystle Pickett Start: 05-22-2024 Registered Referred David AdamKrystle [place]ett Start: 05-22-2024 End: 05-22-[address] Edson Quinn MD -[facility] Work Phone: Start: 05-22-2024 End: 05-22-2024 ambulatory Edson Quinn Facility:[facility] Start: 05-18-2024 End: 05-18-2024 ambulatory Efewongbe Charliee Facility:[facility] Start: 05-18-2024 End: 05-18-2024 Patient encounter procedure Marimar VASQUES -[facility] Work Phone: Start: 05-13-2024 End: 05-13-2024 ambulatory Efewongbe Oleamnae Facility:[facility] Start: 05-13-2024 End: 05-13-[address] Edson Quinn MD -[facility] Work Phone: Start: 05-11-2024 End: 05-11-2024 ambulatory Efewongbe Oleamnae Facility:[facility] Start: 05-11-2024 End: 05-11-2024 Patient encounter procedure Marimar VASQUES -[facility] Work Phone: Start: 05-01-2024 End: 05-01-2024 ambulatory Efewongbe Oleghe Facility:[facility] Start: 05-01-2024 End: 05-01-2024 Patient encounter procedure Marimar VASQUES -[facility] Work Phone: Start: 04-19-2024 End: 04-19-2024 ambulatory Efewongbe Oleghe Facility:[facility] Start: 04-19-2024 End: 04-19-2024 Patient encounter procedure Marimar VASQUES -[facility] Work Phone: Start: 04-17-2024 ambulatory Efewongbe Oleghe Facili ty:[facility] Start: 04-17-2024 Registered Referred Efewongbe Joesphghe MD -[facility] Start: 04-13-2024 ambulatory Efewongbe Oleghe Facili ty:[facility] Start: 04-13-2024 Registered Referred David AdamKrystle [facility] Start: 04-11-2024 End: 04-11-2024 ambulatory Efewongbe Oleghe Facility:[facility] Start: 04-11-2024 End: 04-11-[address] [facility] Start: 04-07-2024 ambulatory Efewongbe Oleghe Facili ty:[facility] Start: 04-07-[address] [facility] Start: 04-04-2024 ambulatory Efewongbe Oleghe Facili ty:[facility] Start: 04-04-2024 [facility] Start: 03-13-2024 End: 03-13-2024 ambulatory Efewongbe Oleghe Facility:[facility] Start: 03-13-2024 End: 03-13-2024 Patient encounter procedure Marimar VASQUES -[facility] Work Phone: Start: 03-02-2024 End: 03-02-2024 ambulatory Efewongbe Oleghe Facility:[facility] Start: 03-02-2024 End: 03-02-2024 Patient encounter [facility] Work Phone: Start: 02-15-2024 End: 02-15-2024 ambulatory Efewongbe Oleghe Facility:[facility] Start: 02-15-2024 End: 02-15-[address] David [facility] Work Phone: Start: 02-14-2024 End: 02-14-2024 ambulatory Efewongbe Oleghe Facility:[facility] Start: 02-14-2024 End: 02-14-[address] Edson Quinn MD -[facility] Work Phone: Start: 02-03-2024 ambulatory Efewongbe Charliee Facili ty:[facility] Start: 01-12-2024 End: 01-12-2024 ambulatory Efewongbe Oleamnae Facility:[facility] Start: 04-06-2023 End: 04-06-[address] Nicolas Cardenas Work Phone: [facility] Work Phone: Start: 04-06-2023 End: 04-06-[address] Nicolas Cardenas Work Phone: [facility] Start: 02-02-2023 End: 02-02-[address] [facility] Work Phone: Start: 01-15-2023 End: 01-15-[address] [facility] Work Phone: Start: 12-30-2022 End: 12-30-[address] Nicolas Cardenas Work Phone: [facility] Work Phone: Start: 12-30-2022 End: 12-30-[address] Nicolas Cardenas Work Phone: [facility] Start: 11-23-2022 End: 11-23-[address] [facility] Work Phone: Start: 11-17-2022 End: 11-17-[address] [facility] Work Phone: Start: 10-06-2022 End: 10-06-[address] Nicolas Cardenas Work Phone: [facility] Work Phone: Start: 09-29-2022 End: 09-29-[address] Nicolas Cardenas Work Phone: [facility] Start: 09-23-2022 End: 09-23-[address] Nicolas Cardenas Work Phone: [facility] Work Phone: Start: 06-29-2022 End: 06-29-[address] Nicolas Cardenas Work Phone: [facility] Work Phone: Start: 06-29-2022 End: 06-29-[address] Nicolas Cardenas Work Phone: [facility] Start: 06-23-2022 End: 06-23-[address] Nicolas Cardenas Work Phone: [facility] Start: 06-05-2022 ambulatory Yoli johnson [employer] Comment on above: Population Health Na vigation Outreach ([facility] Gaps) Start: 05-18-2022 End: 05-18-[address] Nicolas Cardenas Work Phone: [facility] Start: 04-14-2022 End: 04-14-[address] Nicolas Cardenas Work Phone: [facility] Start: 04-01-2022 End: 04-01-[address] Nicolas Cardenas Work Phone: [facility] Work Phone: Start: 04-01-2022 End: 04-01-[address] Nicolas Cardenas Work Phone: [facility] Start: 03-16-2022 End: 03-16-[address] Nicolas Cardenas Work Phone: [facility] Start: 02-24-2022 End: 02-24-[address] Nicolas Cardenas Work Phone: [facility] Start: 01-07-2022 End: 01-07-[address] Nicolas Cardenas Work Phone: [facility] Start: 01-05-2022 End: 01-05-[address] Nicolas Cardenas Work Phone: [facility] Start: 12-24-2021 End: 12-24-[address] Nicolas Cardenas Work Phone: [facility] Work Phone: Start: 12-24-2021 End: 12-24-[address] Nicolas Cardenas Work Phone: [facility] Start: 12-24-[address] Nicolas Cardenas Work Phone: [facility] Start: 12-15-2021 End: 12-15-[address] Nicolas Cardenas Work Phone: [facility] Start: 12-10-2021 End: 12-10-[address] Nicolas Cardenas Work Phone: [facility] Work Phone: Start: 12-10-2021 End: 12-10-[address] Nicolas Cardenas Work Phone: [facility] Start: 12-10-[address] Nicolas Cardenas Work Phone: [facility] Start: 12-09-2021 Telephone encounter Nicolas gutierrez MD Work Phone: [facility] Comment on above: form dropping off Start: 11-26-2021 End: 11-26-[address] Nicolas Cardenas Work Phone: [facility] Work Phone: Start: 11-26-2021 End: 11-26-[address] Nicolas Cardenas Work Phone: [facility] Start: 11-12-[address] Nicolas Cardenas Work Phone: [facility] Start: 10-29-[address] Nicolas Cardenas Work Phone: [facility] Start: 10-23-2021 Telephone encounter Nicolas gutierrez MD Work Phone: [facility] Comment on above: Patient Update Start: 10-22-2021 Non-patient / Non-visit Dr. Nicolas Cardenas Work Phone: [facility] Start: 10-21-2021 Non-patient / Non-visit Dr. Nicolas Cardenas Work Phone: [facility] Start: 10-20-2021 Non-patient / Non-visit Dr. Nicolas Cardenas Work Phone: [facility] Start: 10-20-2021 End: 10-22-2021 Evaluation and management of inpatient Dr. Nicolas Cardenas Work Phone: [facility] Start: 10-20-2021 End: 10-22-[address] Nicolas Cardenas Work Phone: 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 [...] Cardenas Work Phone: Start: 10-20-2021 Plain chest X-jose j Cardenas Work Phone: Start: 10-20-2021 CT of head without contrast Dr. Nicolas Cardenas Work Phone: Start: 09-29-2021 PFIZER-BIONTwebtide COVI D-19 VACCINE, AGE 12+ YR (LANGE TOP) Nicolas Cardenas MD Work Phone: Urine culture Dr. Nicolas Farley Work Phone: Viral antigen assay Dr. Filiberto Cardenas Work Phone: Plan of Treatment Date Care Activity Detail Author Start: 11-02-2024 [facility] Start: 10-30-2024 Influenza vaccination Influenz a Vaccine (Season Ended) [facility] Start: 10-29-2024 [facility] Start: 10-27-2024 End: 10-27-2024 [facility] Start: 10-27-2024 Brain/Head without Contrast Brain/Head without Contrast [facility] Start: 10-27-2024 CT Unspecified body region WO contrast [facility] Start: 09-25-2024 Microbial culture, routine Wound Cul ture [facility] Start: 09-25-2024 [facility] Start: 04-22-2024 DIABETES SCREEN DIABETES SCREEN [facility] Start: 04-22-2024 Diabetes Screening Diabetes Screenin g [facility] Start: 03-01-2024 Advance Directive Discussion Advance Directive Discussion [facility] Start: 10-31-2023 Covid-19 Vaccine ( season) Covid-19 Vaccine ( season) [facility] Start: 10-30-2022 Influenza vaccination INFLUENZ A (Season Ended) [facility] Start: 05-12-2022 SHINGRIX VACCINE (2 of 3) DUMAS GRIX VACCINE (2 of 3) [facility] Comment on above: Postponed from 07/18 (Declined at this time) Start: 03-01-2022 ADVANCE DIRECTIVE DISCUSSION ADVANCE DIRECTIVE DISCUSSION [facility] Start: 11-24-2021 COVID-19 VACCINE (5 - Booster for Pfizer series) COVID-19 VACCINE (5 - Booster for Pfizer series) [facility] Start: 10-30-2021 Influenza vaccination INFLUENZA (#1) [facility] Start: 10-22-2021 Patient discharge [facility] Work Phone: Start: 10-21-2021 Following clinical p athway protocol [facility] Work Phone: Start: 10-21-2021 Assessment of risk o f venous thromboembolism [facility] Work Phone: Start: 10-21-2021 Insertion of cathete r into peripheral vein [facility] Work Phone: Start: 10-21-[address] [facility] Work Phone: Start: 10-21-2021 Providing care accor ding to standard [facility] Work Phone: Start: 10-21-2021 Provision of activit y privileges [facility] Work Phone: Start: 10-21-2021 Referral to occupati onal therapist [facility] Work Phone: Start: 10-21-2021 Referral to service [facility] Work Phone: Start: 10-21-2021 [facility] Work Phone: Start: 10-21-2021 Verification routine [facility] Work Phone: Start: 10-21-2021 CT angiography of he ad and neck CTA Head AND Neck W/ Contrast [facility] Work Phone: Start: 10-21-2021 CTA Head vessels and Neck vessels W contrast IV [facility] Work Phone: Start: 10-20-2021 [facility] Work Phone: Start: 10-20-2021 Admission procedure [facility] Work Phone: Start: 09-11-2021 COVID-19 VACCINE (4 - Booster for Pfizer series) COVID-19 VACCINE (4 - Booster for Pfizer series) [facility] Start: 08-23-2021 Urine microalbumin profile [facility] Comment on above: Postponed from 07/15 (Declined at this time) Start: 2014 RSV Vaccine (1 - 1-d ose 75+ series) RSV Vaccine (1 - 1-dose 75+ series) [facility] Start: 07-18-2013 SHINGRIX VACCINE (2 of 3) DUMAS GRIX VACCINE (2 of 3) [facility] Start: 07-15-2010 Urine microalbumin profile [facility] Anion gap in Serum o r Plasma [facility] BUN/Creatinine ratio [facility] Calcium [Mass/volume ] in Serum or Plasma [facility] Carbon dioxide, tota l [Moles/volume] in Central venous blood [facility] Creatinine [Mass/vol ume] in Serum or Plasma [facility] CYTOLOGY NON-EQUITY MANAGER CYTOLOGY NON-GY N Lab Routine Gross hematuria Ordered: 07/14/2024 [facility] Work Phone: Comment on above: Ordered: 07/14/2024 Erythrocyte mean corpuscular volume determination [facility] Glucose [Mass/volume ] in Serum or Plasma [facility] Hematocrit [Volume Fraction] of Blood [facility] Hemoglobin [Mass/vol ume] in Blood [facility] Leukocytes [#/volume ] in Blood [facility] Mean corpuscular hemoglobin concentration determination [facility] Mean corpuscular hemoglobin determination [facility] Measurement of renal function [facility] Neutrophil count [facility] Neutrophil percent differential count [facility] Patient Education [facility] Work Phone: Patient referral [facility] Work Phone: Platelets [#/volume] in Blood [facility] Potassium measurement [facility] Red blood cell count [facility] Red cell distributio n width determination [facility] Serum chloride measurement [facility] Sodium measurement [facility] Urea nitrogen [Mass/volume] in Serum or Plasma [facility] Immunizations Immunization Date Immunization Notes Care Provider Louis do 09-29-2021 COVID-19 vaccine, ag e 12+ yr (T[facility]Pass - [facility]) Nicolas Cardenas MD Work Phone: [facility] Work Phone: 05-12-2021 COVID-19 vaccine, ag e 12+ yr (PFIZER-BIONTECH - LANGE TOP) Nicolas Cardenas MD Work Phone: [facility] 03-31-2021 influenza, high-dose , quadrivalent vaccine (FLUZONE HIGH DOSE QUADRIVALENT) Nicolas Cardenas MD Work Phone: [facility] Work Phone: 03-31-2021 influenza virus vaccine, unspecified formulation Diana Arango PRINCIPAL WEB DEVELOPER.PAVING CONTRACTOR Work Phone: [facility] 06-17-2020 COVID-19 vaccine, ag e 12+ yr (PFIZER-BIONTECH - PURPLE TOP) Nicolas Cardenas MD Work Phone: [facility] Work Phone: 05-27-2020 COVID-19 vaccine, ag e 12+ yr (PFIZER-BIONTECH - PURPLE TOP) Nicolas Cardenas MD Work Phone: [facility] Work Phone: 04-22-2020 influenza, high-dose , quadrivalent vaccine (FLUZONE HIGH DOSE QUADRIVALENT) Nicolas Cardenas MD Work Phone: [facility] Work Phone: 01-19-2019 influenza, high dose seasonal, preservative-free Nicolas Cardenas MD Work Phone: [facility] 02-03-2018 influenza, high dose seasonal, preservative-free Nicolas Cardenas MD Work Phone: [facility] 01-18-2017 influenza, high dose seasonal, preservative-free Nicolas Cardenas MD Work Phone: [facility] 12-27-2015 influenza, high dose seasonal, preservative-free Nicolas Cardenas MD Work Phone: [facility] 12-26-2014 influenza, high dose seasonal, preservative-free Nicolas Cardenas MD Work Phone: [facility] 06-26-2014 pneumococcal conjuga te vaccine, 13 valent Nicolas Cardenas MD Work Phone: [facility] 12-28-2013 influenza, seasonal, injectable Nicolas Cardenas MD Work Phone: [facility] 05-23-2013 zoster vaccine, live Nicolas Cardenas MD Work Phone: [facility] 07-14-2010 tetanus and diphther ia toxoids, adsorbed, preservative free, for adult use (2 Lf of tetanus toxoid and 2 Lf of diphtheria toxoid) Nicolas Cardenas MD Work Phone: [facility] Work Phone: 01-13-2006 pneumococcal polysaccharide vaccine, 23 valent Nicolas Cardenas MD Work Phone: [facility] Payers Date Payer Category Payer Medicaid [id number] 2024 Self-pay [id number] 2013 Private Health Insurance [facility] AARP SUPPLEMENT [id number] 2013-Present [phone] [address] [place] [address] Indemnity [id number] 2013 Private Health Insurance [id number] 2013 Unknown [id number] 2004 Medicare MEDICARE MEDICAR E A AND B [id number] 2004-Present [phone] [place] [address] Medicare [id number]. [id number] 2004 Medicare [id number] [id number]. [id number] 2004 Medicare [id number] Private Health Insurance [facility] [id number] Unknown [id number] 2.16.840.1.262637.3.579.2. 462 Unknown [id number] 2.16840.1.623695.3.579.2. 462 Unknown [id number] 2.16.840.1.316985.3.579.2. 462 Unknown [id number] 2.16.840.1.522848.3.579.2. 462 Unknown [id number] 2.16840.1.211933.3.579.2. 462 Unknown [id number] 2.840.1.789956.3.579.2. 462 Unknown [id number] 2.16840.1.404201.3.579.2. 462 Unknown [id number] 2.16.840.1.125868.3.579.2. 462 Unknown [id number] 2.16.840.1.938929.3.579.2. 462 Unknown [id number] 2.840.1.102846.3.579.2. 462 Unknown [id number] 2.16.840.1.353033.3.579.2. 462 Unknown [id number] 2.16.840.1.903682.3.579.2. 462 Unknown [id number] 2.16.840.1.788679.3.579.2. 462 Unknown [id number] 2.16.840.1.746618.3.579.2. 462 Unknown [id number] 2.16.840.1.383529.3.579.2. 462 Unknown [id number] 2.16.840.1.239408.3.579.2. 462 Unknown [id number] 2.16.840.1.897996.3.579.2. 462 Unknown [id number] 2.16.840.1.510958.3.579.2. 462 Unknown [id number] 2.16.840.1.843951.3.579.2. 462 Unknown [id number] 2.16.840.1.620967.3.579.2. 462 Unknown [id number] 2.16.840.1.880445.3.579.2. 462 Unknown [id number] 2.840.1.041444.3.579.2. 462 Unknown [id number] 2.16840.1.680247.3.579.2. 462 Unknown [id number] 2.840.1.644775.3.579.2. 462 Unknown [id number] 2.840.1.784829.3.579.2. 462 Unknown [id number] 2.16840.1.206501.3.579.2. 462 Unknown [id number] 2.16.840.1.515685.3.579.2. 462 Unknown [id number] 2.16840.1.762998.3.579.2. 462 Unknown [id number] 2.16840.1.946060.3.579.2. 462 Unknown [id number] 2.16840.1.025297.3.579.2. 462 Unknown [id number] 2.16840.1.364320.3.579.2. 462 Unknown [id number] 2.16.840.1.013588.3.579.2. 462 Unknown [id number] 2.16.840.1.022075.3.579.2. 462 Unknown [id number] 2.16840.1.380246.3.579.2. 462 Unknown [id number] 2.16.840.1.714256.3.579.2. 462 Unknown [id number] 2.16.840.1.685153.3.579.2. 462 Unknown [id number] 2.16.840.1.747805.3.579.2. 462 Unknown [id number] 2.16.840.1.664044.3.579.2. 462 Unknown [id number] 2.16.840.1.471340.3.579.2. 462 Unknown [id number] 2.16.840.1.682456.3.579.2. 462 Unknown [id number] 2.16.840.1.511200.3.579.2. 462 Unknown [id number] 2.840.1.281944.3.579.2. 462 Unknown [id number] 2.840.1.940954.3.579.2. 462 Unknown [id number] 2.840.1.673263.3.579.2. 462 Unknown [id number] 2.840.1.301200.3.579.2. 462 Unknown [id number] 2.16.840.1.231302.3.579.2. 462 Unknown [id number] 2.840.1.920681.3.579.2. 462 Unknown [id number] 2.16.840.1.321016.3.579.2. 462 Unknown [id number] 2.16.840.1.192932.3.579.2. 462 Unknown [id number] 2.16.840.1.156703.3.579.2. 462 Unknown [id number] 2.16840.1.178284.3.579.2. 462 Unknown [id number] 2.16.840.1.573204.3.579.2. 462 Unknown [id number] 2.16.840.1.584982.3.579.2. 462 Unknown [id number] 2.16.840.1.503210.3.579.2. 462 Unknown [id number] 2.16.840.1.669412.3.579.2. 462 Unknown [id number] 2.16.840.1.679339.3.579.2. 462 Unknown [id number] 2.16840.1.372467.3.579.2. 462 Unknown [id number] 2.16.840.1.548124.3.579.2. 462 Unknown [id number] 2.16840.1.256300.3.579.2. 462 Unknown [id number] 2.840.1.479013.3.579.2. 462 Social History Date Type Detail Facility Start: 04-22-2012 End: 12-15-2024 Tobacco smoking status NHIS Ex-smoker [facility] Start: 03-01-1949 End: 03-01-1959 History of tobacco use Current smoker [facility] Start: 03-01-1949 End: 03-01-1959 History of tobacco use Cigarette Smoker [facility] Start: 05-12-2021 End: 07-14-2024 Alcohol intake Current non-drinker of alcohol (finding) [facility] Start: 1940 Sex Assigned At Not on file [facility] Start: 09-19-2021 End: 09-29-2021 Exposure to SARS-CoV-2 (event) Not sure [facility] Work Phone: Start: 10-21-2021 End: 12-02-2022 Tobacco smoking status [facility] Unknown if ever smoked [facility] Start: 1940 Sex Assigned At Male [facility] Start: 04-22-2012 End: 07-14-2024 Cigarettes smoked current (pack per day) - Reported 1 [facility] Start: 04-22-2012 Tobacco use and exposure Smokeless tobacco non-user [facility] Work Phone: Start: 06-05-2024 End: 06-21-2024 Sex Male (finding) [facility] Start: 02-03-2018 End: 07-14-2024 Tobacco use panel [facility] Adult Depression Screening Assessment 0 [facility] Goals Date Patient Goal Desired Activity /State Functional Status Date Assessment Result Facility 10-22-2021 Functional status Bedrest [facility] Work Phone: 06-26-2014 Are you deaf, or do you have serious difficulty hearing No 06/26/2014 10:08 AM EDT Anjelica Perez Cma [facility] 06-26-2014 Are you blind, or do you have serious difficulty seeing, even when wearing glasses No 06/26/2014 10:08 AM EDT Anjelica Perez C[facility] 06-26-2014 Do you have serious difficulty walking or climbing stairs No 06/26/2014 10:08 AM EDT Anjelica Perez [facility] 06-26-2014 Do you have difficul ty dressing or bathing No 06/26/2014 10:08 AM EDT Anjelica Perez [facility] 06-26-2014 Because of a physica l, mental, or emotional condition, do you have difficulty doing errands alone such as visiting a physician's office or shopping No 06/26/2014 10:08 AM EDT Anjelica Perez [facility] Mental Status Date Assessment Result Facility 10-22-2021 Cognitive function Voice/Name [facility] Work Phone: 10-20-2021 Cognitive function Appropriate;Cony starks [facility] Work Phone: 06-26-2014 Because of a physica l, mental, or emotional condition, do you have serious difficulty concentrating, remembering, or making decisions No 06/26/2014 10:08 AM EDT Anjelica Perez C[facility] Clinical Notes 09-16-2018 to 11-02-2024 Telephone Encounter - Stefany Mcclure RN - 07/17/2024 11:17 AM EDTTelephone Encounter - Stefany Mcclure RN - 07/17/2024 11:17 AM EDTTelephone Encounter - Stefany Mcclure RN - 07/17/2024 11:14 AM EDT Note Date & Type Note Facility 11-02-[address] [facility] 11-02-2024 Radiology Diagnostic study note [facility] Imaging Services [address] [place] [place], [place] [address] Brain/Head without Contrast MR#: [id number] Acct: [id number] Name: EKL DILLARD Rep #: [id number] : 1940 M 84 From: Viola Allan MD PCP: Dr. David Miramontes MD Status: R EG ER Study:Brain/Head without Contrast Date of Exa m: 11/02/24 Exam# [id number] Ordering Dr: Bibi Leigh MD PROCEDURE: BRAIN/HEAD [...] an acute traumatic brain abnormality. Reading Location: [place] [address] CC: Dr. David Miramontes MD; Dr. Abhinav Leigh MD ~ [employer] [place]: Signed [facility] 11-02-2024 Radiology Diagnostic study note [facility] Imaging Services [address] [place] [address] Spine Cervical without Contras MR#: [id number] Acct: [id number] Name: KEL DILLARD Rep #: [id number] : 1940 M 84 From: Viola Allan MD PCP: Dr. David Miramontes MD Status: R EG ER Study:Spine Cervical without Contras Date of Exam: 11/02/24 Exam# [id number] Ordering Dr: Bibi Leigh MD PROCEDURE: SPINE [...] of an acute traumatic abnormality. Reading Location: [place] [address] CC: Dr. David Miramontes MD; Dr. Abhinav Leigh MD ~ [employer] [place]: Signed [facility] 10-29-[address] [facility] 10-29-2024 Radiology Diagnostic study note [facility] Imaging Services [address] [place] [address] Wrist min 3 Views MR#: [id number] Acct: [id number] Name: KEL DILLARD Rep #: [id number] : 1940 M 84 From: Brodie Martinez MD PCP: Dr. David Miramontes MD Status: R EG ER Study:Wrist min 3 Views Date of Exam: Exam# [id number] Ordering Dr: Bibi Leigh MD PROCEDURE: WRIST [...] acute osseous abnormalities. Mild arthritis. Reading Location: [facility] CC: Dr. David Miramontes MD; Dr. Abhinav Leigh MD ~ [employer] [place]: Signed [facility] 10-29-2024 Radiology Diagnostic study note [facility] Imaging Services [address] [place] [address] Hand Min 3 Views MR#: [id number] Acct: [id number] Name: KEL DILLARD Rep #: [id number] : 1940 M 84 From: Brodie Martinez MD PCP: Dr. David Miramontes MD Status: R EG ER Study:Hand Min 3 Views Date of Exam: Exam# [id number] Ordering Dr: Bibi Leigh MD PROCEDURE: HAND MIN 3 VIEWS 10/29/2024 REASON FOR EXAM: FALL TECHNIQUE: Procedure Code: [id number] Modality: DX Procedure: HAND MIN 3 VIEWS Laterality: Left COMPARISON: None. FINDINGS: Bones: No acute bony abnormalities. Joints: Unremarkable. Soft tissues: No soft tissue abnormalities. RAD/Hand Min 3 Views IMPRESSION: No acute osseous abnormalities. Reading Location: [facility] CC: Dr. David Miramontes MD; Dr. Abhinav Leigh MD ~ [employer] [place]: Signed [facility] 10-27-2024 Radiology Diagnostic study note [facility] Imaging Services [address] [place] [address] Brain/Head without Contrast MR#: [id number] Acct: [id number] Name: KEL DILLARD Rep #: [id number] : 1940 M 84 From: Krzysztof Mariano MD PCP: Dr. David Miramontes MD Status: R EG ER Study:Brain/Head without Contrast Date of Exa m: 10/27/24 Exam# [id number] Ordering Dr: Ira Zarate PROCEDURE: CT BRAIN/HEAD [...] loss and chronic microangiopathic changes. Reading Location: [id number] CC: Dr. David Miramontes MD; ERWIN Phillip ~ [employer] [place]: Signed [facility] 07-17-2024 Telephone encounter Note Spoke with patient's son and notified of information as per provider. He states that they are going to hold off on having tests listed below,. He will let us know if he needs anything or wants test done in the future. Verbalized understanding and has no further questions. Stefany Mcclure RN [facility] Work Phone: 07-17-2024 Miscellaneous Notes Spoke [...] if he wishes. documented in this encounter [facility] 07-17-2024 Telephone encounter Note ----- Message from Diana Arango APRN.CNP sent at 07/17/2024 11:12 AM EDT ----- Please notify patient/patient's son that patient's cytology came back negative for high-grade urothelial carcinoma. This is great news! Given his mentation and mobility -- we could hold off on CT/cysto if he wishes. [facility] 07-14-2024 History of Present illness Narrative Images from the original note were not included. [facility] Urological [facility] Kidney [facility] Urology - [place] UROL JUAN NEW [...] (no units) Date Value 08/12/2018 Negative Specific [place], Ur (no units) Date Value 08/12/2018 1.018 [...] intervention based on that result. - CYTOLOGY NON-EQUITY MANAGER - Call son with results. Will make treatment plan decision from there. Follow-up as needed. Diana Arango APRN.PAVING CONTRACTOR documented in this encounter [facility] 07-14-2024 Note HNO ID: [id number] Author: DIANA ARANGO APRN.PAVING CONTRACTOR Service: ? Author Type: Nurse Practitioner Type: Progress Notes Filed: 07/14/2024 09:11 Note Text: [facility] Urological AND Kidney [facility] - [place] [facility] 07/14/2024 8:51 [...] Psychiatric: (more content not included)... [facility] 06-05-2022 Note HNO ID: [id number] Author: Yoli Garner Service: ? Author Type: [...] June 05, 2022 1:58 PM [facility] 06-05-2022 Note Patient Outreach (JEAN CLAUDE TNAV) ---- KEL DILLARD ([id number]) 1940 M Date Time Provider Department 06/05/22 YOLI GARNER During your visit today, we recorded the following information about you: Yoli Garner 06/05/2022 2:00 PM Signed POPULATION HEALTH NAVIGATION OUTREACH Action/FYI 1st attempt: Spoke to patient's daughter. Patient [...] DISCUSSION due on 03/01/2022 Navigation Signature: Yoli [place] June 05, 2022 1:58 PM Allergies As [...] by YOLI GARNER on 06/05/22 [facility] 06-05-2022 History of Present illness Narrative POPULATION [...] 2022 1:58 PM documented in this encounter [facility] 12-11-2021 Miscellaneous Notes Forms pts son brought in have been sent to medical records. Pts son notified. He can pick them up there. Son (Jhonny) calls in and provider message reviewed. Son asking if form brought in can be picked back up in Medical Records. Please contact Jhonny at [phone]. Preethi Delgadillo RN I have not seen him since hospital stay and he is now under the [place] attending physician's care. It is more appropriate for the [place] attending physician to do another form. More statements need corrected/updated Form to pcp to review. Patient son Jhonny calling said PCP completed expert evaluation form on 09/29 for guardianship and director of occupational therapy said question number 11 needs revised. Son Jhonny said 2 weeks after form was done father had fall and was taken to [facility] then sent to [facility] for rehab. Now father is in memory care unit, his dementia is at 6 out of 7. Son is going to drop off new form to be competed, since father can not care for himself or do anything for himself. Please advise documented in this encounter [facility] 10-23-2021 Miscellaneous Notes Per [facility] discharge info pt was discharged to [facility] 10/22/21. documented in this encounter [facility] 09-29-2021 Note HNO ID: [id number] Author: Nicolas Cardenas MD Service: ? Author Type: Physician Type: Progress Notes Filed: 09/29/2021 6:08 PM Note Text: This note was created using Sky [employer]. Subjective Kel Dillard is a 81 year old male. He was here with his son. He was home bound due to memory loss and cognitive deficits. He gets lost if he wandered outside. Son was here with form requesting guardianship. This was part of POA he was establishing. They were exploring senior living placement in anticipation of need, but Kel [...] vaccine - ICD9: V04.89, ICD10: Z23 - [employer] ([employer] / [employer])-BIONTwebtide COVID-19 VACCINE, AGE 12+ YR (LANGE TOP) 6. 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 Form completed. Patient and son indicated understanding and willingness to follow recommendations. Nicolas Cardenas MD [facility] 09-29-2021 Note HNO ID: [id number] Author: Nicolas Cardenas MD Service: ? Author [...] current specialists seen: Pulmonary- Dr. Valle Cardiology- [facility] Managing Editor- [facility] End of Live Planning discussed including patients [...] at pharmacy Nicolas Cardenas MD [facility] 09-29-2021 History of Present illness Narrative This note was created using [employer]. Subjective Kel Dillard is a 81 year old male. He was here with his son. He was home bound due to memory loss and cognitive deficits. He gets lost if he wandered outside. Son was here with form requesting guardianship. This was part of POA he was establishing. They were exploring senior living placement in anticipation of need, but Kel [...] current specialists seen: Pulmonary- Dr. Valle Cardiology- [facility] Managing Editor- Barb End of Live Planning discussed including [...] Nicolas Cardenas MD documented in this encounter [facility] 07-15-2021 Miscellaneous Notes Yesenia, Admissions staff member at [facility] calling to state patient's son Jhonny has reached out to them to request patient possibly be admitted into their memory care unit due to cognition concerns. Yesenia is requesting notes from patient's last OV be faxed to them at [phone]. This nurse contacted son Jhonny to verify the request and he confirmed it was ok to share requested information. Information faxed as requested. Karen Matias RN documented in this encounter [facility] 09-16-2018 History of Past i llness [...] of this encounter (statuses as of 07/15/2021) [facility] History of Past illness Narrative* Problem [...] of this encounter (statuses as of 09/29/2021) [facility] History of Past illness Narrative* Problem [...] of this encounter (statuses as of 10/23/2021) [facility] History of Past illness Narrative* Problem [...] of this encounter (statuses as of 12/11/2021) [facility] History of Past illness Narrative* Problem [...] of this encounter (statuses as of 06/05/2022) [facility] Abhinav Leigh [facility] Note Date/Time October 29, 2024 11 :26am [facility] Medical Records Department [address] [place] [address] Emergency Department Summary 10/29/24 MR#: [id number] Acct: [id number] Name: KEL DILLARD Rep #:[id number] : 1940 84 From: Abhinav Leigh [...] similar symptoms: No Recent Illness/Hospitalization: No PFSH PFSH Medical History [...] wrist and hand. But he has good skimmer scoop operator strength bilaterally. There is no significant tenderness [...] male fell 2 days ago at the senior living was evaluated at that time for head [...] did speak to a nurse at the [facility]. No other complaints today has not been ill has not had a fever. Patient himself denies any complaints. Repeat exam is unchanged at 11:26 AM.. [facility]. we will make sure they [...] This is all from arthritis. Print Language: Lao Disposition Disposition: Home, Self Care What to do if you have Problems For any increased pain, shortness of breath, bleeding, nausea or vomiting, chestpain, or any unexpected problems, contact your Primary Care Provider. Call [facility] ([phone]) or report to the closest Emergency Room. Call 911 if necessary. 10/29/24 1126 <Electronically signed by Abhinav Leigh MD> Cosigner Signature (if applicable): CC: Dr. David Miramontes MD ~ Signed [facility] Work Phone: Discharge summary Author Abhinav Leigh [facility] Note Date/Time November 02, 2024 5:15am [facility] Medical Records Department [address] [place] [address] Emergency Department Summary 11/02/24 MR#: [id number] Acct: [id number] Name: KEL DILLARD Rep #:[id number] : 1940 84 From: Abhinav Leigh [...] extended care facility. He is currently at [facility]. Tonight they found him in his room on the floor. It was an unwitnessed fall. No idea if he had any LOC. When they went to move himhe reportedly had neck pain even though currently has no complaints. I spoke tostaff at the nursing home facility. Patient's been seen at least 3-4 times in the last several weeks for falls. Prior similar symptoms: Yes Recent [facility] Medical History Alzheimers disease Former smoker Dementia [...] Abdomen soft nontender. Movingall 4 extremities. 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 Dorsi plantarflexion intact. He can flex [...] an acute traumatic brain abnormality. [facility] 11/02/24 03:56 IMPRESSION: No CT evidence of an acute traumatic abnormality. [facility] brain without contrast shows no [...] Follow-up with either his doctor or your medical assistant to discuss if he should remain on anticoagulation due to his history of the falls you may want toconsider taking him off of the Eliquis. Print Language: Lao Disposition Disposition: Home, Self Care What to do if you have Problems For any increased pain, shortness of breath, bleeding, nausea or vomiting, chestpain, or any unexpected problems, contact your Primary Care Provider. Call [facility] ([phone]) or report to the closest Emergency Room. Call 911 if necessary. 11/02/24 0515 <Electronically signed by Abhinav Leigh MD> Cosigner Signature (if applicable): CC: Dr. David Miramontes MD ~ Signed 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 Work Phone: Evaluation noteNo assessment information available [facility] Work Phone: Evaluation note* Diagnosis Gross hematuria- Primary [facility] Dis[facility] instructionsAdditional Instructions The CT scan showed no broken bones or internal bleeding. Ice and take Tylenol every 6 [address] needed[address] Work Phone: Hospital Discharge instructionsAdditional Instructions Follow-up with your doctor as needed. Ice to his wrist and hand There is no broken bone in his wrist or hand. This is all from arthritis.[facility] Work Phone: Hospital Discharge instructionsAdditional Instructions Tylenol for pain. CAT scans tonight of his head and neck were negative. Follow-up with either his doctor or your medical assistant to discuss if he should remain on anticoagulation due to his history of the falls you may want to consider taking him off of the Eliquis.[facility] Work Phone: Reason for referral (narrative)No reason for referral information availableWHocking [facility] Work Phone: Advance Directives No Advanced Directives Records FoundDocuments on File Type Date Recorded Patient Cbx Operator Expl anation Advance Directive(s) 04/29/2021 2:28 PM Advance Directive(s) 09/08/2016 1:42 PM Advance Directive(s) 08/31/2016 10:18 AM Advance Directive(s) 04/09/2016 12:30 PM Advance Directive(s) 04/06/2016 10:07 AM Advance Directive(s) 10/09/2011 11:10 AM Advance Directive Response Recorded Date/ Time Advance Directives No October 10:42am Living Will No October 20 8:26pm Power of Memorial Marker Designer No October 20 022 8:26pm Advance Directive Response Recorded Date/ Time Advance Directives No October 10:42am Living Will No October 21 1:16am Power of Memorial Marker Designer No October 21 022 1:16am Documents on File Type Date Recorded Patient Cbx Operator Expl anation Advance Directive(s) 04/29/2021 2:28 PM Advance Directive(s) 10/09/2011 11:10 AM Advance Directive Response Recorded Date/ Time Advance Directives No April 02, 2022 2:41pm Living Will No April 02 2:41pm Power of Memorial Marker Designer No April 02, 2022 2:41pm Advance Directive Response Recorded Date/ Time Advance Directives No April 02, 2022 3:41pm Living Will No April 02 3:41pm Power of Memorial Marker Designer No April 02, 2022 3:41pm Advance Directive Response Recorded Date/ Time Advance Directives No December 02, 2022 9:40am Living Will No December 02 9:40am Power of Memorial Marker Designer No December 02, 023 9:40am Advance Directive [...] Do you have a Healthcare Power of Memorial Marker Designer? Yes October 27, 2024 8:39pm Advance Directive Response Recorded Date/ Time Advance Directives No September 15 1:51pm Do you have a Healthcare Power of Memorial Marker Designer? Yes October 27, 2024 8:39pm Do you have a Healthcare Power of Memorial Marker Designer? Yes October 29, 2024 9:57am Name of Medical Power of Memorial Marker Designer Jhonny Dillard October 29, 2024 9:57am Advance Directive Response Recorded Date/ Time Advance Directives No September 15 1:51pm Do you have a Healthcare Power of Memorial Marker Designer? Yes October 27, 2024 8:39pm Do you have a Healthcare Power of Memorial Marker Designer? No November 02, 2024 3:46am Do you have a Healthcare Power of Memorial Marker Designer? Yes October 29, 2024 9:57am Name of Medical Power of Memorial Marker Designer Jhonny Dillard October 29, 2024 9:57am Advance Directive Response Recorded Date/ Time Advance Directives No December 15, 2024 8:00am Do you have a Healthcare Power of Memorial Marker Designer? Yes October 27, 2024 8:39pm Do you have a Healthcare Power of Memorial Marker Designer? No November 02, 2024 3:46am Do you have a Healthcare Power of Memorial Marker Designer? Yes October 29, 2024 9:57am Name of Medical Power of Memorial Marker Designer Jhonny Dillard October 29, 2024 9:57am Chief [...] DEBILITY FALL, DEBILITY LAB WORK LAB WORK SNF LAB WORK MONTHLY EXAM Chief Complaint FALL, DEBILITY FALL, DEBILITY FALL, DEBILITY FALL, DEBILITY LAB WORK LAB WORK SNF LAB WORK SNF LABWORK MONTHLY EXAM Chief Complaint FALL, DEBILITY FALL, DEBILITY FALL, DEBILITY FALL, DEBILITY LAB WORK LAB WORK SNF LAB WORK SNF LABWORK MONTHLY EXAM SNF LAB WORK Chief Complaint SNF LAB WOR K MONTHLY EXAM SNF LAB WORK MONTHLY EXAM MONTHLY EXAM SNF LAB WORK Chief Complaint MONTHLY EXAM SNF LAB WORK MONTHLY EXAM new problem MONTHLY EXAM SNF LABWORK Chief Complaint MONTHLY EXAM SNF LAB WORK MONTHLY EXAM ANNUAL EXAM MONTHLY EXAM SNF LAB WORK Chief Complaint SNF LAB WOR K NEW CONCERN MONTHLY EXAM LABWORK Chief Complaint Admit Date Pacer Check Remote February 14, 2024 12:11am MONTHLY EXAM February 15, 2024 9:13pm MONTHLY EXAM March 02, 2024 11 :09am NEW CONCERN March 13, 2024 1 :23pm SNF LAB WORK April 04, 2024 5:00am SNF LAB WORK April 07, 2024 4:00am SNF LAB WORK April 07, 2024 10:45am MONTHLY EXAM April 11, 2024 12:58pm SNF LAB WORK April 13 5:00am LABWORK April [...] NEW CONCERN March 13, 2024 1 :23pm SNF LAB WORK April 04, 2024 5:00am SNF LAB WORK April 07, 2024 4:00am SNF LAB WORK April 07, 2024 10:45am MONTHLY EXAM April 11, 2024 12:58pm SNF LAB WORK April 13 5:00am LABWORK April [...] NEW CONCERN March 13, 2024 1 :23pm SNF LAB WORK April 04, 2024 5:00am SNF LAB WORK April 07, 2024 4:00am SNF LAB WORK April 07, 2024 10:45am MONTHLY EXAM April 11, 2024 12:58pm SNF LAB WORK April 13 5:00am LABWORK April [...] NEW CONCERN March 13, 2024 1 :23pm SNF LAB WORK April 04, 2024 5:00am SNF LAB WORK April 07, 2024 4:00am SNF LAB WORK April 07, 2024 10:45am MONTHLY EXAM April 11, 2024 12:58pm SNF LAB WORK April 13 5:00am LABWORK April [...] TOES PVD May 30, 2024 8:36 am SNF LAB WORK June 05, 2024 4: 00am Chief Complaint Admit Date SNF LAB WORK April 04, 2024 5:00am SNF LAB WORK April 07, 2024 4:00am SNF LAB WORK April 07, 2024 10:45am MONTHLY EXAM MD April 11, 2024 12:58pm SNF LAB WORK April 13 5:00am LABWORK April [...] TOES PVD May 30, 2024 8:36 am SNF LAB WORK June 05, 2024 4: 00am [...] TOES PVD May 30, 2024 8:36 am SNF LAB WORK June 05, 2024 4: 00am LABWORK June 23, 2024 5:0 0am LABWORK July 21, 2024 5:00a m SNF LAB WORK August 01, 2024 5:0 0am [...] TOES PVD May 30, 2024 8:36 am SNF LAB WORK June 05, 2024 4: 00am LABWORK June 23, 2024 5:0 0am MONTHLY EXAM July 18, 2024 3:15p m LABWORK July 21, 2024 5:00a m SNF LAB WORK August 01, 2024 5:0 0am [...] TOES PVD May 30, 2024 8:36 am SNF LAB WORK June 05, 2024 4: 00am LABWORK June 23, 2024 5:0 0am MONTHLY EXAM July 18, 2024 3:15p m NEW PROBLEM/CONCERN July 20, 2024 3:45p m LABWORK July 21, 2024 5:00a m SNF LAB WORK August 01, 2024 5:0 0am [...] TOES PVD May 30, 2024 8:36 am SNF LAB WORK June 05, 2024 4: 00am LABWORK June 23, 2024 5:0 0am MONTHLY EXAM July 18, 2024 3:15p m NEW PROBLEM/CONCERN July 20, 2024 3:45p m LABWORK July 21, 2024 5:00a m SNF LAB WORK August 01, 2024 5:0 0am [...] TOES PVD May 30, 2024 8:36 am SNF LAB WORK June 05, 2024 4: 00am LABWORK June 23, 2024 5:0 0am MONTHLY EXAM July 18, 2024 3:15p m NEW PROBLEM/CONCERN July 20, 2024 3:45p m LABWORK July 21, 2024 5:00a m SNF LAB WORK August 01, 2024 5:0 0am [...] TOES PVD May 30, 2024 8:36 am SNF LAB WORK June 05, 2024 4: 00am LABWORK June 23, 2024 5:0 0am MONTHLY EXAM July 18, 2024 3:15p m NEW PROBLEM/CONCERN July 20, 2024 3:45p m LABWORK July 21, 2024 5:00a m SNF LAB WORK August 01, 2024 5:0 0am [...] TOES PVD May 30, 2024 8:36 am SNF LAB WORK June 05, 2024 4: 00am LABWORK June 23, 2024 5:0 0am NEW CONCERN July 04, 2024 4:35pm MONTHLY EXAM July 18, 2024 3:15p m NEW PROBLEM/CONCERN July 20, 2024 3:45p m LABWORK July 21, 2024 5:00a m SNF LAB WORK August 01, 2024 5:0 0am LABWORK August 02, 2024 5:00a m MONTHLY EXAM August 15, 2024 7:30 pm Pacer Check Remote August 21, 2024 4:29 am NEW CONCERN August 21, 2024 3:15 pm SNF LAB WORK August 22, 2024 5: 00am NEW CONCERN August 25, 2024 2:15 pm LABWORK August 31, 2024 5:00a m SNF LAB WORK September 07, 2024 5: 00am Chief Complaint Admit Date LABWORK June 23, 2024 5:0 0am NEW CONCERN July 04, 2024 4:35pm MONTHLY EXAM July 18, 2024 3:15p m NEW PROBLEM/CONCERN July 20, 2024 3:45p m LABWORK July 21, 2024 5:00a m SNF LAB WORK August 01, 2024 5:0 0am LABWORK August 02, 2024 5:00a m MONTHLY EXAM August 15, 2024 7:30 pm Pacer Check Remote August 21, 2024 4:29 am NEW CONCERN August 21, 2024 3:15 pm SNF LAB WORK August 22, 2024 5: 00am NEW CONCERN August 25, 2024 2:15 pm Monthly Exam August 29, 2024 4:04p m LABWORK August 31, 2024 5:00a m SNF LAB WORK September 07, 2024 5: 00am Chief Complaint Admit Date LABWORK June 23, 2024 5:0 0am NEW CONCERN July 04, 2024 4:35pm MONTHLY EXAM July 18, 2024 3:15p m NEW PROBLEM/CONCERN July 20, 2024 3:45p m LABWORK July 21, 2024 5:00a m SNF LAB WORK August 01, 2024 5:0 0am LABWORK August 02, 2024 5:00a m MONTHLY EXAM August 15, 2024 7:30 pm Pacer Check Remote August 21, 2024 4:29 am NEW CONCERN August 21, 2024 3:15 pm SNF LAB WORK August 22, 2024 5: 00am NEW CONCERN August 25, 2024 2:15 pm Monthly Exam August 29, 2024 4:04p m LABWORK August 31, 2024 5:00a m SNF LAB WORK September 07, 2024 5: 00am New Concern September 19, 2024 7:48 am Chief Complaint Admit Date LABWORK June 23, 2024 5:0 0am NEW CONCERN July 04, 2024 4:35pm MONTHLY EXAM July 18, 2024 3:15p m NEW PROBLEM/CONCERN July 20, 2024 3:45p m LABWORK July 21, 2024 5:00a m SNF LAB WORK August 01, 2024 5:0 0am LABWORK August 02, 2024 5:00a m MONTHLY EXAM August 15, 2024 7:30 pm Pacer Check Remote August 21, 2024 4:29 am NEW CONCERN August 21, 2024 3:15 pm SNF LAB WORK August 22, 2024 5: 00am NEW CONCERN August 25, 2024 2:15 pm Monthly Exam August 29, 2024 4:04p m LABWORK August 31, 2024 5:00a m SNF LAB WORK September 07, 2024 5: 00am New Concern September 19, 2024 7:48 am New Concern September 25, 2024 4:26 pm Chief Complaint Admit Date NEW CONCERN July 04, 2024 4:35pm MONTHLY EXAM July 18, 2024 3:15p m NEW PROBLEM/CONCERN July 20, 2024 3:45p m LABWORK July 21, 2024 5:00a m SNF LAB WORK August 01, 2024 5:0 0am LABWORK August 02, 2024 5:00a m MONTHLY EXAM August 15, 2024 7:30 pm Pacer Check Remote August 21, 2024 4:29 am NEW CONCERN August 21, 2024 3:15 pm SNF LAB WORK August 22, 2024 5: 00am NEW CONCERN August 25, 2024 2:15 pm Monthly Exam August 29, 2024 4:04p m LABWORK August 31, 2024 5:00a m SNF LAB WORK September 07, 2024 5: 00am New Concern September 19, 2024 7:48 am SNF LAB WORK September 25, 2024 12 :00pm New Concern September 25, 2024 4:26 pm MONTHLY EXAM September 29, 2024 11: 44am Chief Complaint Admit Date NEW CONCERN July 04, 2024 4:35pm MONTHLY EXAM July 18, 2024 3:15p m NEW PROBLEM/CONCERN July 20, 2024 3:45p m LABWORK July 21, 2024 5:00a m SNF LAB WORK August 01, 2024 5:0 0am LABWORK August 02, 2024 5:00a m MONTHLY EXAM August 15, 2024 7:30 pm Pacer Check Remote August 21, 2024 4:29 am NEW CONCERN August 21, 2024 3:15 pm SNF LAB WORK August 22, 2024 5: 00am NEW CONCERN August 25, 2024 2:15 pm Monthly Exam August 29, 2024 4:04p m LABWORK August 31, 2024 5:00a m SNF LAB WORK September 07, 2024 5: 00am New Concern September 19, 2024 7:48 am SNF LAB WORK September 25, 2024 12 :00pm New Concern September 25, 2024 4:26 pm MONTHLY EXAM September 29, 2024 11: 44am fall, head injury, on thinners October 272024 8:34pm Chief Complaint Admit Date NEW CONCERN July 04, 2024 4:35pm MONTHLY EXAM July 18, 2024 3:15p m NEW PROBLEM/CONCERN July 20, 2024 3:45p m LABWORK July 21, 2024 5:00a m SNF LAB WORK August 01, 2024 5:0 0am LABWORK August 02, 2024 5:00a m MONTHLY EXAM August 15, 2024 7:30 pm Pacer Check Remote August 21, 2024 4:29 am NEW CONCERN August 21, 2024 3:15 pm SNF LAB WORK August 22, 2024 5: 00am NEW CONCERN August 25, 2024 2:15 pm Monthly Exam August 29, 2024 4:04p m LABWORK August 31, 2024 5:00a m SNF LAB WORK September 07, 2024 5: 00am New Concern September 19, 2024 7:48 am SNF LAB WORK September 25, 2024 12 :00pm New Concern September 25, 2024 4:26 pm MONTHLY EXAM September 29, 2024 11: 44am fall, head injury, on thinners October 272024 8:34pm wrist injury October 29, 2024 9: 51am Chief Complaint Admit Date MONTHLY EXAM July 18, 2024 3:15p m NEW PROBLEM/CONCERN July 20, 2024 3:45p m LABWORK July 21, 2024 5:00a m SNF LAB WORK August 01, 2024 5:0 0am LABWORK August 02, 2024 5:00a m MONTHLY EXAM August 15, 2024 7:30 pm Pacer Check Remote August 21, 2024 4:29 am NEW CONCERN August 21, 2024 3:15 pm SNF LAB WORK August 22, 2024 5: 00am NEW CONCERN August 25, 2024 2:15 pm Monthly Exam August 29, 2024 4:04p m LABWORK August 31, 2024 5:00a m SNF LAB WORK September 07, 2024 5: 00am New Concern September 19, 2024 7:48 am SNF LAB WORK September 25, 2024 12 :00pm New Concern September 25, 2024 4:26 pm MONTHLY EXAM September 29, 2024 11: 44am fall, head injury, on thinners October [id number] 8:34pm wrist injury October 29, 2024 9: 51am FALL November 02, 2024 3:29am Chief Complaint Admit Date LABWORK August 02, 2024 5:00a m MONTHLY EXAM August 15, 2024 7:30 pm Pacer Check Remote August 21, 2024 4:29 am NEW CONCERN August 21, 2024 3:15 pm SNF LAB WORK August 22, 2024 5: 00am NEW CONCERN August 25, 2024 2:15 pm Monthly Exam August 29, 2024 4:04p m LABWORK August 31, 2024 5:00a m SNF LAB WORK September 07, 2024 5: 00am New Concern September 19, 2024 7:48 am SNF LAB WORK September 25, 2024 12 :00pm New Concern September 25, 2024 4:26 pm MONTHLY EXAM September 29, 2024 11: 44am fall, head injury, on thinners October [id number] 8:34pm wrist injury October 29, 2024 9: 51am FALL November 02, 2024 3:29am LABOWRK November 07, 2024 5:00am Pacer Check Remote November 20, 2024 10:38am Chief Complaint Admit Date Monthly Exam August 29, 2024 4:04p m LABWORK August 31, 2024 5:00a m SNF LAB WORK September 07, 2024 5: 00am New Concern September 19, 2024 7:48 am SNF LAB WORK September 25, 2024 12 :00pm New Concern September 25, 2024 4:26 pm MONTHLY EXAM September 29, 2024 11: 44am fall, head injury, on thinners October [id number] 8:34pm wrist injury October 29, 2024 9: 51am MONTHLY EXAM October 31, 2024 3:22pm FALL November 02, 2024 3:29am NEW CONCERN November 02, 2024 3:13pm NEW CONCERN November 03, 2024 5:24pm LABOWRK November 07, 2024 5:00am Pacer Check Remote November 20, 2024 10:38am SNF LAB WORK November 22 5:40am Family History No Family History Records Found [...] or prosecute any alcohol or drug abuse patient.[facility] the event this information is protected by the Federal Confidentiality of Alcohol and Drug Abuse Patient Records regulations: The Federal rules restrict any use of the information to criminally investigate or prosecute any alcohol or drug abuse patient.[facility] the event this information is protected by the Federal Confidentiality of Alcohol and Drug Abuse Patient Records regulations: The Federal rules restrict any use of the information to criminally investigate or prosecute any alcohol or drug abuse patient.[facility] the event this information is protected by the Federal Confidentiality of Alcohol and Drug Abuse Patient Records regulations: The Federal rules restrict any use of the information to criminally investigate or prosecute any alcohol or drug abuse patient.[facility] the event this information is protected by the Federal Confidentiality of Alcohol and Drug Abuse Patient Records regulations: The Federal rules restrict any use of the information to criminally investigate or prosecute any alcohol or drug abuse patient.[facility] the event this information is protected by the Federal Confidentiality of Alcohol and Drug Abuse Patient Records regulations: The Federal rules restrict any use of the information to criminally investigate or prosecute any alcohol or drug abuse patient.[facility] Hospital[facility] the event this information is protected by the Federal Confidentiality of Alcohol and Drug Abuse Patient Records regulations: The Federal rules restrict any use of the information to criminally investigate or prosecute any alcohol or drug abuse patient.[facility] Reason for Visit (unrecogniz ed section [...] 2024 End: April 19, 2024 Marimar Zimmer CHILD CARE SUPERVISOR, CHILD CARE SUPERVISOR-C Attending Provider Active Start: April 19, 2024 End: April 19, 2024 Team Status: Inactive Member Role Status Dates Dr. David Miramontes MD Primary Care Provider Active Start: May 01, 2024 End: May 01, 2024 Marimar Zimmer CHILD CARE SUPERVISOR, CHILD CARE SUPERVISOR-C Attending Provider Active Start: May 01, 2024 End: May 01, 2024 Team Status: Inactive Member Role Status Dates Dr. David Miramontes MD Primary Care Provider Active Start: May 11, 2024 End: May 11, 2024 Marimar Zimmer CHILD CARE SUPERVISOR, CHILD CARE SUPERVISOR-C Attending Provider Active Start: May 11, 2024 [...] 2024 End: May 18, 2024 Marimar Zimmer CHILD CARE SUPERVISOR, CHILD CARE SUPERVISOR-C Attending Provider Active Start: May 18, 2024 [...] June 23, 2024 End: June 23, 2024 Trading Analyst Relationship Specialty Start Date End Date Nicolas Cardenas MD [address] [place] [address] PCP - General 02/12/03 Trading Analyst Relationship Specialty Start Date End Date Nicolas Cardenas MD [address] [place] [address] PCP - General 02/12/03 Trading Analyst Relationship Specialty Start Date End Date Nicolas Cardenas MD [address] [place] [address] PCP - General 02/12/03 Trading Analyst Relationship Specialty Start Date End Date Nicolas Cardenas MD [address] [facility] [place] [address] PCP - General 02/12/03 Team Status: Active Member Role Status Dates Dr. Nicolas Cardenas MD Family Provider Active Dr. Nicolas Cardenas MD Primary Care Provider Active Team Status: Inactive Member Role Status Dates Dr. Nicolas Cardenas MD Primary Care Provider Active Marimar Zimmer CHILD CARE SUPERVISOR, CHILD CARE SUPERVISOR-C Attending Provider Active Team Status: Inactive Member [...] 2024 End: March 13, 2024 Marimar Zimmer CHILD CARE SUPERVISOR, CHILD CARE SUPERVISOR-C Attending Provider Active Start: March 13, 2024 [...] 2024 End: May 01, 2024 Marimar Zimmer NP, CHILD CARE SUPERVISOR-C Attending Provider Active Start: May 01, 2024 End: May 01, 2024 Team Status: Inactive Member Role/Relationship Status Dates Dr. David Miramontes MD Primary Care Provider Active Start: May 11, 2024 End: May 11, 2024 Marimar Zimmer NP, CHILD CARE SUPERVISOR-C Attending Provider Active Start: May 11, 2024 [...] 2024 End: May 18, 2024 Marimar Zimmer CHILD CARE SUPERVISOR, CHILD CARE SUPERVISOR-C Attending Provider Active Start: May 18, 2024 [...] 2024 End: May 30, 2024 Marimar Zimmer CHILD CARE SUPERVISOR, CHILD CARE SUPERVISOR-C Attending Provider Active Start: May 30, 2024 [...] 2024 End: May 18, 2024 Marimar Zimmer CHILD CARE SUPERVISOR, CHILD CARE SUPERVISOR-C Attending Provider Active Start: May 18, 2024 [...] 2024 End: May 30, 2024 Marimar Zimmer CHILD CARE SUPERVISOR, CHILD CARE SUPERVISOR-C Attending Provider Active Start: May 30, 2024 [...] Inactive Member Role/Relationship Status Dates Marimar Zimmer CHILD CARE SUPERVISOR, CHILD CARE SUPERVISOR-C Attending Provider Active Start: July 20, 2024 [...] 2024 End: August 15, 2024 Marimar Zimmer CHILD CARE SUPERVISOR, CHILD CARE SUPERVISOR-C Attending Provider Active Start: August 15, 2024 [...] 2024 End: August 21, 2024 Marimar Zimmer CHILD CARE SUPERVISOR, CHILD CARE SUPERVISOR-C Attending Provider Active Start: August 21, 2024 [...] 2024 End: August 25, 2024 Marimar Zimmer CHILD CARE SUPERVISOR, CHILD CARE SUPERVISOR-C Attending Provider Active Start: August 25, 2024 [...] 2024 End: May 30, 2024 Marimar Zimmer CHILD CARE SUPERVISOR, CHILD CARE SUPERVISOR-C Attending Provider Active Start: May 30, 2024 [...] 05, 2024 End: June 05, 2024 David GARCAI MD Attending Provider Active Start: June 05, [...] 2024 End: July 04, 2024 Marimar Zimmer CHILD CARE SUPERVISOR, CHILD CARE SUPERVISOR-C Attending Provider Active Start: July 04, 2024 End: July 04, 2024 Team Status: Inactive Member Role/Relationship Status Dates Dr. David Miramontes MD Primary Care Provider Active Start: July 18, 2024 End: July 18, 2024 Dr. David Miramontes MD Attending Provider Active Start: July 18, 2024 End: July 18, 2024 Team Status: Inactive Member Role/Relationship Status Dates Marimar Zimmer CHILD CARE SUPERVISOR, CHILD CARE SUPERVISOR-C Attending Provider Active Start: July 20, 2024 [...] 2024 End: August 15, 2024 Marimar Zimmer CHILD CARE SUPERVISOR, CHILD CARE SUPERVISOR-C Attending Provider Active Start: August 15, 2024 [...] 2024 End: August 21, 2024 Marimar Zimmer CHILD CARE SUPERVISOR, CHILD CARE SUPERVISOR-C Attending Provider Active Start: August 21, 2024 End: August 21, 2024 Team Status: Inactive Member Role/Relationship Status Dates Dr. David Miramontes MD Primary Care Provider Active Start: August 25, 2024 End: August 25, 2024 Marimar Zimmer CHILD CARE SUPERVISOR, CHILD CARE SUPERVISOR-C Attending Provider Active Start: August 25, 2024 End: August 25, 2024 Team Status: Active Member Role/Relationship Status Dates Dr. David Miramontes MD Primary Care Provider Active Start: September 25, 2024 David GARCIA MD Attending Provider Active Start: September 25, 2024 Team Status: Inactive Member Role/Relationship Status Dates Dr. David Mriamontes MD Primary Care Provider Active Start: June 23, 2024 End: June 23, 2024 David GARCIA MD Attending Provider Active Start: June 23, 2024 End: June 23, 2024 Team Status: Inactive Member Role/Relationship Status Dates Dr. David Miramontes MD Primary Care Provider Active Start: July 04, 2024 End: July 04, 2024 Marimar Zimmer CHILD CARE SUPERVISOR, CHILD CARE SUPERVISOR-C Attending Provider Active Start: July 04, 2024 End: July 04, 2024 Team Status: Inactive Member Role/Relationship Status Dates Dr. David Miramontes MD Primary Care Provider Active Start: July 18, 2024 End: July 18, 2024 Dr. David Miramontes MD Attending Provider Active Start: July 18, 2024 End: July 18, 2024 Team Status: Inactive Member Role/Relationship Status Dates Marimar Zimmer CHILD CARE SUPERVISOR, CHILD CARE SUPERVISOR-C Attending Provider Active Start: July 20, 2024 [...] 2024 End: August 15, 2024 Marimar Zimmer NP CHILD CARE SUPERVISOR-C Attending Provider Active Start: August 15, 2024 [...] End: August 21, 2024 Marimar Zimmer NP CHILD CARE SUPERVISOR-C Attending Provider Active Start: August 21, 2024 [...] 2024 End: August 25, 2024 Marimar Zimmer CHILD CARE SUPERVISOR, CHILD CARE SUPERVISOR-C Attending Provider Active Start: August 25, 2024 [...] Status: Active Member Role/Relationship Status Dates Dr. Davdi Miramontes MD Primary Care Provider Active Start: [...] End: September 19, 2024 Marimar Zimmer NP, CHILD CARE SUPERVISOR-C Attending Provider Active Start: September 19, 2024 [...] 2024 End: September 25, 2024 Marimar Zimmer CHILD CARE SUPERVISOR, CHILD CARE SUPERVISOR-C Attending Provider Active Start: September 25, 2024 End: September 25, 2024 Team Status: Inactive Member Role/Relationship Status Dates Dr. David Miramontes MD Primary Care Provider Active Start: July 04, 2024 End: July 04, 2024 Marimar Tickton CHILD CARE SUPERVISOR, CHILD CARE SUPERVISOR-C Attending Provider Active Start: July 04, 2024 End: July 04, 2024 Team Status: Inactive Member Role/Relationship Status Dates Dr. David Miramontes MD Primary Care Provider Active Start: July 18, 2024 End: July 18, 2024 Dr. David Miramontes MD Attending Provider Active Start: July 18, 2024 End: July 18, 2024 Team Status: Inactive Member Role/Relationship Status Dates Marimar Zimmer CHILD CARE SUPERVISOR, CHILD CARE SUPERVISOR-C Attending Provider Active Start: July 20, 2024 [...] 2024 End: August 15, 2024 Marimar Zimmer CHILD CARE SUPERVISOR, CHILD CARE SUPERVISOR-C Attending Provider Active Start: August 15, 2024 [...] 2024 End: August 21, 2024 Marimar Zimmer CHILD CARE SUPERVISOR, CHILD CARE SUPERVISOR-C Attending Provider Active Start: August 21, 2024 [...] 2024 End: August 25, 2024 Marimar Zimmer CHILD CARE SUPERVISOR, CHILD CARE SUPERVISOR-C Attending Provider Active Start: August 25, 2024 [...] 2024 End: September 19, 2024 Marimar Zimmer CHILD CARE SUPERVISOR, CHILD CARE SUPERVISOR-C Attending Provider Active Start: September 19, 2024 End: September 19, 2024 Team Status: Inactive Member Role/Relationship Status Dates Dr. David Miramontes MD Primary Care Provider Active Start: September 25, 2024 End: September 25, 2024 Marimar Zimmer CHILD CARE SUPERVISOR, CHILD CARE SUPERVISOR-C Attending Provider Active Start: September 25, 2024 End: September 25, 2024 Team Status: Inactive Member Role/Relationship Status Dates Dr. David Miramontes MD Primary Care Provider Active Start: September 29, 2024 End: September 29, 2024 Dasia Barrett CHILD CARE SUPERVISOR-C Attending Provider Active Start: September 29, 2024 [...] Inactive Member Role/Relationship Status Dates Marimar Zimmer NP, CHILD CARE SUPERVISOR-C Attending Provider Active Start: July 20, 2024 [...] 2024 End: August 15, 2024 Marimar Zimmer CHILD CARE SUPERVISOR, CHILD CARE SUPERVISOR-C Attending Provider Active Start: August 15, 2024 [...] August 21, 2024 End: August 21, 2024 Marmiar Zimmer CHILD CARE SUPERVISOR, CHILD CARE SUPERVISOR-C Attending Provider Active Start: August 21, 2024 [...] 2024 End: August 25, 2024 Marimar Zimmer CHILD CARE SUPERVISOR, CHILD CARE SUPERVISOR-C Attending Provider Active Start: August 25, 2024 [...] End: September 19, 2024 Marimar Zimmer NP, CHILD CARE SUPERVISOR-C Attending Provider Active Start: September 19, 2024 [...] End: September 25, 2024 Marimar Zimmer NP, CHILD CARE SUPERVISOR-C Attending Provider Active Start: September 25, 2024 End: September 25, 2024 Team Status: Inactive Member Role/Relationship Status Dates Dr. David Miramontes MD Primary Care Provider Active Start: September 29, 2024 End: September 29, 2024 Dasia Barrett CHILD CARE SUPERVISOR-C Attending Provider Active Start: September 29, 2024 [...] Attending Provider Active Start: November 02, 2024 Team Status: Active Member Role/Relationship Status Dates Dr. David Miramontes MD Primary care physician Activ e Team Status: Active Member Role/Relationship Status Dates Dr. David Miramontes MD Primary care physician Activ e Start: August 02, 2024 David GARCIA MD Attending physician Active Start: August 02, 2024 Team Status: Inactive Member Role/Relationship Status Dates Dr. David Miramontes MD Primary care physician Activ e Start: August 15, 2024 End: August 15, 2024 Marimar Zimmer CHILD CARE SUPERVISOR CHILD CARE SUPERVISOR-C Attending physician Active Start: August 15, 2024 End: August 15, 2024 Team Status: Inactive Member Role/Relationship Status Dates Dr. David Miramontes MD Primary care physician Activ e Start: August 21, 2024 End: August 21, 2024 Dr. Edson Quinn MD Attending physician Active Start: August 21, 2024 End: August 21, 2024 Dr. Edson Quinn MD Referring Provider Active S tart: August 21, 2024 End: August 21, 2024 Team Status: Inactive Member Role/Relationship Status Dates Dr. David Miramontes MD Primary care physician Activ e Start: August 21, 2024 End: August 21, 2024 Marimar Zimmer CHILD CARE SUPERVISOR CHILD CARE SUPERVISOR-C Attending physician Active Start: August 21, 2024 End: August 21, 2024 Team Status: Active Member Role/Relationship Status Dates Dr. David Miramontes MD Primary care physician Activ e Start: August 22, 2024 David GARCIA MD Attending physician Active Start: August 22, 2024 Team Status: Inactive Member Role/Relationship Status Dates Dr. David Miramontes MD Primary care physician Activ e Start: August 25, 2024 End: August 25, 2024 Marimar Zimmer CHILD CARE SUPERVISOR CHILD CARE SUPERVISOR-C Attending physician Active Start: August 25, 2024 End: August 25, 2024 Team Status: Inactive Member Role/Relationship Status Dates Dr. David Miramontes MD Primary care physician Activ e Start: August 29, 2024 End: August 29, 2024 Dr. David Miramontes MD Attending physician Active Start: August 29, 2024 End: August 29, 2024 Team Status: Active Member Role/Relationship Status Dates Dr. David Miramontes MD Primary care physician Activ e Start: August 31, 2024 David GARCIA MD Attending physician Active Start: August 31, 2024 Team Status: Active Member Role/Relationship Status Dates Dr. David Miramontes MD Primary care physician Activ e Start: September 07, 2024 David GARCIA MD Attending physician Active Start: September 07, 2024 Team Status: Inactive Member Role/Relationship Status Dates Dr. David Miramontes MD Primary care physician Activ e Start: September 19, 2024 End: September 19, 2024 Marimar Zimmer NP, CHILD CARE SUPERVISOR-C Attending physician Active Start: September 19, 2024 End: September 19, 2024 Team Status: Active Member Role/Relationship Status Dates Dr. David Miramontes MD Primary care physician Activ e Start: September 25, 2024 David GARCIA MD Attending physician Active Start: September 25, 2024 Team Status: Inactive Member Role/Relationship Status Dates Dr. David Miramontes MD Primary care physician Activ e Start: September 25, 2024 End: September 25, 2024 Marimar Zimmer NP, CHILD CARE SUPERVISOR-C Attending physician Active Start: September 25, 2024 End: September 25, 2024 Team Status: Inactive Member Role/Relationship Status Dates Dr. David Miramontes MD Primary care physician Activ e Start: September 29, 2024 End: September 29, 2024 DANAY RuthC Attending physician Active Start: September 29, 2024 End: September 29, 2024 Team Status: Inactive Member Role/Relationship Status Dates Dr. David Miramontes MD Primary care physician Activ e Start: October 27, 2024 End: October 27, 2024 Dr. Abhinav Leigh MD Attending physician Active Start: October 27, 2024 End: October 27, 2024 Dr. Abhinav Leigh MD Emergency Departmen t Physician Active Start: October 27, 2024 End: October 27, 2024 Team Status: Inactive Member Role/Relationship Status Dates Dr. David Miramontes MD Primary care physician Activ e Start: October 29, 2024 End: October 29, 2024 Dr. Abhinav Leigh MD Attending physician Active Start: October 29, 2024 End: October 29, 2024 Dr. Abhinav Leigh MD Emergency Departmen t Physician Active Start: October 29, 2024 End: October 29, 2024 Team Status: Inactive Member Role/Relationship Status Dates Dr. David Miramontes MD Primary care physician Activ e Start: November 02, 2024 End: November 02, 2024 Dr. Abhinav Leigh MD Attending physician Active Start: November 02, 2024 End: November 02, 2024 Dr. [facility] Active Start: November 02, 2024 End: November 02, 2024 Team Status: Active Member Role/Relationship Status Dates Dr. David Miramontes MD Primary care physician Activ e Start: November 07, 2024 David GARCIA MD Attending physician Active Start: November 07, 2024 Team Status: Inactive Member Role/Relationship Status Dates Dr. David Miramontes MD Primary care physician Activ e Start: November 20, 2024 End: November 20, 2024 Dr. Edson Quinn MD Attending physician Active Start: November 20, 2024 End: November 20, 2024 Team Status: Active Member Role/Relationship Status Dates Dr. David Miramontes MD Primary care physician Activ e Start: November 22, 2024 David GARCIA MD Attending physician Active Start: November 22, 2024 Team Status: Inactive Member Role/Relationship Status Dates Dr. David Miramontes MD Primary care physician Activ e Start: August 29, 2024 End: August 29, 2024 Dr. David Miramontes MD Attending physician Active Start: August 29, 2024 End: August 29, 2024 Team Status: Active Member Role/Relationship Status Dates Dr. David Miramontes MD Primary care physician Activ e Start: August 31, 2024 David GARCIA MD Attending physician Active Start: August 31, 2024 Team Status: Active Member Role/Relationship Status Dates Dr. David Miramontes MD Primary care physician Activ e Start: September 07, 2024 David GARCIA MD Attending physician Active Start: September 07, 2024 Team Status: Inactive Member Role/Relationship Status Dates Dr. David Miramontes MD Primary care physician Activ e Start: September 19, 2024 End: September 19, 2024 Marimar Zimmer NP, CHILD CARE SUPERVISOR-C Attending physician Active Start: September 19, 2024 End: September 19, 2024 Team Status: Active Member Role/Relationship Status Dates Dr. David Miramontes MD Primary care physician Activ e Start: September 25, 2024 David GARCIA MD Attending physician Active Start: September 25, 2024 Team Status: Inactive Member Role/Relationship Status Dates Dr. David Miramontes MD Primary care physician Activ e Start: September 25, 2024 End: September 25, 2024 Marimar Zimmer NP CHILD CARE SUPERVISOR-C Attending physician Active Start: September 25, 2024 End: September 25, 2024 Team Status: Inactive Member Role/Relationship Status Dates Dr. David Miramontes MD Primary care physician Activ e Start: September 29, 2024 End: September 29, 2024 Dasia Barrett NP-C Attending physician Active Start: September 29, 2024 End: September 29, 2024 Team Status: Inactive Member Role/Relationship Status Dates Dr. David Miramontes MD Primary care physician Activ e Start: October 27, 2024 End: October 27, 2024 Dr. Abhinav Leigh MD Attending physician Active Start: October 27, 2024 End: October 27, 2024 Dr. Abhinav [facility] Active Start: October 27, 2024 End: October 27, 2024 Team Status: Inactive Member Role/Relationship Status Dates Dr. David Miramontes MD Primary care physician Activ e Start: October 29, 2024 End: October 29, 2024 Dr. Abhinav Leigh MD Attending physician Active Start: October 29, 2024 End: October 29, 2024 Dr. Abhinav [facility] Active Start: October 29, 2024 End: October 29, 2024 Team Status: Inactive Member Role/Relationship Status Dates Dr. David Miramontes MD Primary care physician Activ e Start: October 31, 2024 End: October 31, 2024 Dr. David Miramontes MD Attending physician Active Start: October 31, 2024 End: October 31, 2024 Team Status: Inactive Member Role/Relationship Status Dates Dr. David Miramontes MD Primary care physician Activ e Start: November 02, 2024 End: November 02, 2024 Dr. Abhinav Leigh MD Attending physician Active Start: November 02, 2024 End: November 02, 2024 Dr. Abhinav Leigh MD Emergency [facility] t Physician Active Start: November 02, 2024 End: November 02, 2024 Team Status: Inactive Member Role/Relationship Status Dates Dr. David Miramontes MD Primary care physician Activ e Start: November 02, 2024 End: November 02, 2024 Marimar Zimmer NP, CHILD CARE SUPERVISOR-C Attending physician Active Start: November 02, 2024 End: November 02, 2024 Team Status: Inactive Member Role/Relationship Status Dates Dr. David Miramontes MD Primary care physician Activ e Start: November 03, 2024 End: November 03, 2024 Marimar Zimmer NP, CHILD CARE SUPERVISOR-C Attending physician Active Start: November 03, 2024 End: November 03, 2024 Team Status: Active Member Role/Relationship Status Dates Dr. David Miramontes MD Primary care physician Activ e Start: November 07, 2024 David GARCIA MD Attending physician Active Start: November 07, 2024 Team Status: Inactive Member Role/Relationship Status Dates Dr. David Miramontes MD Primary care physician Activ e Start: November 20, 2024 End: November 20, 2024 Dr. Edson Quinn MD Attending physician Active Start: November 20, 2024 End: November 20, 2024 Dr. Edson Quinn MD Referring Provider Active S tart: November 20, 2024 End: November 20, 2024 Team Status: Active Member Role/Relationship Status Dates Dr. David Miramontes MD Primary care physician Activ e Start: November 22, 2024 David GARCIA MD Attending physician Active Start: November 22, 2024 Goals (unrecognized section and content) [...] content) DATE CREATED AUTHOR 06/08/2022 [facility] DATE CREATED AUTHOR AUTHOR'S ORGANIZ ATION 07/17/2024 [facility] DATE CREATED AUTHOR AUTHOR'S ORGANIZ ATION 01/11/2025 [facility] FOR RECORDS PERTAINING TO PATIENTS WHO ARE [...] BE BASED ON THE PRIMARY CLINICAL RECORDS. Next audience [facility]. provides no warranty or guarantee of the accuracy or completeness of information in this document.
[2025-01-31 07:36] LABS: Hematocrit 43.7 % (40-54); Hemoglobin 13.7 g/dL (13.0-16.5); Immature Granulocytes Count 0.050 X10^3/uL (0.0-0.0); Mean Corp Hgb Conc 31.4 g/dL (32-36); Mean Corpuscular Volume 99.1 fL (80-94); Mean Platelet Vol. 11.7 fl (6.2-12.0); NRBC Flagged by Analyzer 0 % (0-5); Platelet Count 176 K/mm3 (150-450); RBC Distribution Width CV 14.5 % (11.6-14.6); RBC Distribution Width SD 52.9 fl (35.1-43.9); Red Blood Count 4.41 M/mm3 (4.6-6.2); White Blood Count 7.4 K/mm3 (4.4-11.0)
[2025-01-31 07:49] LABS: Anion Gap 10 (5-15); BUN 19 mg/dL (4-19); BUN/Creat Ratio 18.4 RATIO (10-20); Calcium,Total 9.1 mg/dL (7.6-11.0); Carbon Dioxide 26.0 mmol/L (21.0-32.0); Chloride 104 mmol/L (98-108); Glucose 88 mg/dL (70-99); Potassium 3.9 mmol/L (3.3-5.1)
== END ==
LOC: OLS.WHLCAR 05:00
PROVIDERS: PCP Internal Medicine; Visit Provider Internal Medicine
DX: G30.9 Alzheimer's disease, unspecified (principal); F02.818 Dementia in other diseases classified elsewhere, unspecified severity, with other behavioral disturbance; G25.0 Essential tremor; I48.20 Chronic atrial fibrillation, unspecified
CPT/HCPCS: 36415; 80048; 85025

== ENCOUNTER → 2025-02-23 04:00 | Outpatient (REF) | payer MEDICARE, SELFPAY ==
--- OUTSIDE RECORDS SUMMARY | 2025-02-23 03:46 | XMS RPT_ITS | CCD ---
Author Organization [facility] ion [facility] Care Team Providers Care Usability Engineer Name Role Phone Nicolas Cardenas MD Primary Care Provider Dr. Nicolas Cardenas Primary Care Provider Dr. Abhinav Leigh Emergency Provider Dr. Robinson Nguyen Admit Provider Dr. Robinson Nguyen Attending Provider Dr. Robinson Nguyen Other Provider Dr. Kevin Nichole Attending Provider Dr. Kevin Nichole Other Provider Dr. Desire Leung Attending Provider Nicolas Cardenas MD Primary Care Provider Mesha JUMP ROLL OPERATOR, JUMP ROLL OPERATOR-C Marimar Attending Provider Dr. Nicolas Justin Primary Care Provider Mesha JUMP ROLL OPERATOR, JUMP ROLL OPERATOR-C Marimar Attending Provider Dr. David Nina Attending Provider Unavailable Primary Care Provider NICOLAS Anand Referring Unavailable NICOLAS CARDENAS Attending Unavailable NICOLAS CARDENAS Primary Care Unavailable Dr. Nicolas Cardenas Primary Care Provider Mesha JUMP ROLL OPERATOR, JUMP ROLL OPERATOR-C Marimar Attending Provider Dr. David Nina Attending Provider Dr. Nicolas Cardenas Primary Care Provider Mesha JUMP ROLL OPERATOR, JUMP ROLL OPERATOR-C Marimar Attending Provider Unav ailDr. David Jackson Attending Provider [phone] Dr. Nicolas Cardenas Primary Care Provider Mesha JUMP ROLL OPERATOR, JUMP ROLL OPERATOR-C Marimar Attending Provider Dr. David Miramontes Attending Provider [phone] Dr. David Miramontes MD Primary Care Provider Kai ALAMO, Dr. Sandhu Attending Provider Kai ALAMO, Dr. Sandhu Referring Provider [phone] Kulwinder ALAMO, Dr. Win Attending Provider [phone] Isidro Can Attending Provider Mesha JUMP ROLL OPERATOR-CMarimar Attending Provider David Miramontes MD Attending Provider UnavailDavid Truong MD Referring Provider UnavailDr. David Truong MD Referring Provider Ernie ALAMO, Dr. Rahman Attending Provider Kulwinder ALAMO, Dr. Win Primary Care Provider Kulwinder ALAMO, Dr. Win Attending Provider [phone] Dr. Edson Quinn MD Attending Provider [phone] Dr. Edson Quinn MD Referring Provider [phone] Dr. David Miramontes MD Primary Care Provider Mesha JUMP ROLL OPERATOR-CMarimar Attending Provider Unavailable Primary Care Provider UnavailDIANA Zamora Attending Miva ilable SELF Referring Unavailable Dr. David Miramontes MD Primary Care Provider Mesha JUMP ROLL OPERATOR-CMarimar Attending Provider David Miramontes MD Attending Provider Unavailapril Miramontes MD, Dr. Win Attending Provider [phone] David Miramontes MD Referring Provider Unavailapril Miramontes MD, Dr. Win Primary Care Provider Tickton JUMP ROLL OPERATOR-C, Marimar Attending Provider Kai ALAMO, Dr. Sandhu Attending Provider Kai ALAMO, Dr. Sandhu Referring Provider [phone] Kulwinder ALAMO, Dr. Win Primary Care Provider Kulwinder ALAMO, David Attending Provider Unavaila ble Tickton JUMP ROLL OPERATOR-C, Marimar Attending Provider Kulwinder ALAMO, Dr. Win Attending Provider [phone] Kai ALAMO, Dr. Sandhu Attending Provider Kai ALAMO, Dr. Sandhu Referring Provider [phone] Kulwinder ALAMO, Dr. Win Primary Care Provider David Miramontes MD Attending Provider Unavaila ble Tickton JUMP ROLL OPERATOR-C, Marimar Attending Provider Kulwinder ALAMO, Dr. Win Attending Provider [phone] Kulwinder ALAMO, Dr. Win Primary Care Provider David Miramontes MD Attending Provider Unavaila ble Ungerer JUMP ROLL OPERATOR-C, Dasia Attending Provider Reese ALAMO, Dr. La Emergency Provider Kulwinder ALAMO, Dr. Win Primary Care Provider Tickton JUMP ROLL OPERATOR-C, Marimar Attending Provider Reese ALAMO, Dr. La Attending Provider Kulwinder ALAMO, Dr. Win Primary Care Physician David Miramontes MD Attending Physician Unavail able Tickton JUMP ROLL OPERATOR-C, Marimar Attending Physician Kai ALAMO, Dr. Sandhu Attending Physician Kulwinder ALAMO, Dr. Win Attending Physician Ungerer JUMP ROLL OPERATOR-C, Dasia Attending Physician Reese ALAMO, Dr. La Attending Physician [phone] Reese ALAMO, Dr. La Emergency Department Physici an Kulwinder ALAMO, Dr. Win Primary Care Physician Kulwinder ALAMO, David Attending Physician Unavail able Mesha JUMP ROLL OPERATOR-CMarimar Attending Physician Kai ALAMO, Dr. Sandhu Attending [...] Unavailable Oleghe, Efewongbe Primary Care Unavailable Mesha JUMP ROLL OPERATORMarimar Attending Unavailable Oleghe, Efewongbe Primary Care Unavailable Mesha JUMP ROLL OPERATORMarimar Attending Unavailable Oleghe, Efewongbe Primary Care Unavailable [...] Unavailabl e Kai, Edson Attending Unavailable Kai, [place] Referring Unavailable Oleghe, Efewongbe Primary Care Unavailable Oleghe, Efewongbe Primary Care Unavailable Oleghe, Efewongbe Attending Unavailable Oleghe, Efewongbe Primary Care Unavailable Oleghe, Efewongbe Attending Unavailable Oleghe, Efewongbe Primary Care Unavailable Isidro Can Attending Unavailable Oleghe, Efewongbe Primary Care Unavailable Tickton JUMP ROLL OPERATOR, Marimar Attending Unavailable Kai, [place] Referring Unavailable Kai, Edson Attending Unavailable Oleghe, Efewongbe Primary Care Unavailable Oleghe, Efewongbe Attending Unavailable Oleghe, Efewongbe Primary Care Unavailable Oleghe, Efewongbe Primary Care Unavailable Tickton JUMP ROLL OPERATOR, Marimar Attending Unavailable Oleghe, Efewongbe Primary Care Unavailable Tickton JUMP ROLL OPERATOR, Marimar Attending Unavailable Oleghe, Efewongbe Primary Care Unavailable Tickton JUMP ROLL OPERATOR, Marimar Attending Unavailable Oleghe, Efewongbe Primary Care Unavailable Oleghe, Efewongbe Attending Unavailable Oleghe, Efewongbe Primary Care Unavailable Tickton JUMP ROLL OPERATOR, Marimar Attending Unavailable Oleghe, Efewongbe Primary Care Unavailable Tickton JUMP ROLL OPERATOR, Marimar Attending Unavailable Oleghe, Efewongbe Primary Care Unavailable Tickton JUMP ROLL OPERATOR, Marimar Attending Unavailable Oleghe, Efewongbe Attending Unavailable Oleghe, Efewongbe Primary Care Unavailable Oleghe, Efewongbe Primary Care Unavailable Dasia Barrett Attending Unavailable Oleghe, Efewongbe Primary Care Unavailable Kai, [place] Referring Unavailable Kai, Edson Attending Unavailable Oleghe, Efewongbe Primary Care Unavailable Tickton JUMP ROLL OPERATOR, Marimar Attending Unavailable [place]ickton JUMP ROLL OPERATOR, Marimar Attending Unavailable Oleghe, Efewongbe Primary Care Unavailable [place] JUMP ROLL OPERATOR, Marimar Attending Unavailable Oleghe, Efewongbe Primary Care Unavailable Oleghe, Efewongbe Primary Care Unavailable Oleghe, Efewongbe Referring Unavailable Josiah Klein Attending Unavailable Oleghe, Efewongbe Primary Care Unavailable Kai, [place] Referring Unavailable Kai, [place] Attending Unavailable Oleghe, Efewongbe Primary Care Unavailable Tickton JUMP ROLL OPERATOR, Marimar Attending Unavailable [place]ton JUMP ROLL OPERATOR, Marimar Attending Unavailable Oleghe, Efewongbe Primary Care Unavailable Oleghe, Efewongbe Primary Care Unavailable [place]ickton JUMP ROLL OPERATOR, Marimar Attending Unavailable Oleghe, Efewongbe Primary Care Unavailable Tickton JUMP ROLL OPERATOR, Marimar Attending Unavailable Oleghe, Efewongbe Primary Care Unavailable Oleghe, Efewongbe Attending Unavailable Oleghe, Efewongbe Primary Care Unavailable Dasia Barrett Attending Unavailable Oleghe, Efewongbe Primary Care Unavailable Tickton JUMP ROLL OPERATOR, Marimar Attending Unavailable Oleghe, Efewongbe Primary Care Unavailable Tickton JUMP ROLL OPERATOR, Marimar Attending Unavailable Oleghe, Efewongbe Primary Care [...] Care Unavailable Kai, Edson Referring Unavailable Kai, [place] Attending Unavailable Oleghe OLS, Efewongbe Attending Unavailabl e Oleghe, Efewongbe Primary Care Unavailable Oleghe, Efewongbe Primary Care Unavailable Kai, [place] Referring Unavailable Kai, [place] Attending Unavailable Oleghe, Efewongbe Primary Care Unavailable [...] daily. docusate sodium 50 mg / sennosides, mcfp 8.6 mg oral tablet (20 sources) Start: [...] capsule (20 sources) Start: 9 End: 4 Holiday-3 Fatty Acids-Fish Oil (Fish Oil) 360-1,200 mg [...] hydrochloride 5 mg oral tablet (20 sources) E-aodapy-C-aspartat e Receptor Antagonist Start: 3 End: 4 [...] A DAY 0 October 22, 2021 12:00am Holiday-3 Fatty Acids (Fish Oil Concentrate) 1,000 mg capsule (20 sources) Start: 08-23-2018 End: 11-08-2018 take 1 capsule by mouth once daily Holiday-3 Fatty Acids (Fish Oil Concentrate) 1,000 mg capsule Discontinued 1000 mg PO DAILY August 23, 2018 12:00am November 08, 2018 1:59pm Start: 08-23-2018 End: 11-08-2018 take 1 capsule by mouth once daily Holiday-3 Fatty Acids (Fish Oil Concentrate) 1,000 mg capsule Discontinued 1000 MG PO DAILY August 22, 2018 11:00pm November 08, 2018 12:59pm Start: 08-23-2018 End: 11-08-2018 take 1 capsule by mouth once daily Holiday-3 Fatty Acids (Fish Oil Concentrate) 1,000 mg [...] on above: Take 1 capsule by mo [facility] once daily. 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 [place] [address] Pacemaker Check Date of Service: 11/27/241647 MR#: [id number] Acct: [id number] Name: GILMAKEL XAVIER Rep #: [id number] : 1940 From: Yesenia Prescott Age/Sex: 84/M [place] [facility] Status: Signed Billing Codes PM Device Codes: 35806 PM Dev Prog Eval, Dual Assessment and Plan Assessment and Plan (1) Presence of cardiac pacemaker: Status: Chronic (2) Sick sinus syndrome: Status: Chronic (3) Sinus pause: Status: Resolved Comment: 6.7 seconds on holter, plus several other pauses of shorter duration 11/15/18 11/27/241647 Date Yesenia Prescott Cosignenoc Signature: Date (if applicable) CC: Normal [facility] Absolute lymphocyte countOrd ered By: David Miramontes on 11-22-2024 Lymphocytes Auto (Unsp spec) [#/Vol] 1.15 10*3/uL 0.83-4.51 [facility] Absolute neutrophil countOrd ered By: Mayrawaynecarleen Joesphiman on 11-22-2024 Neutrophils (Bld) [#/Vol] 4.3 10*3/uL 2.0-7.7 [facility] Anion gap in Serum or Plasma Ordered By: David Miramontes on 11-22-2024 Anion gap [Moles/Vol] 10 mmol/L 5-15 [facility] Automated lymphocyte count a s percentage of total leukocytesOrdered By: David Miramontes on 11-22-2024 Lymphocytes/100 WBC Auto (Unsp spec) 18.3 % Low 19-41 [facility] BUN/creatinine ratioOrdered By: David Miramontes on 11-22-2024 Urea nitrogen/Creatinine [Mass ratio] 13.1 mg/mg 10-20 [facility] Basophil percentageOrdered B y: David Miramontes on 11-22-2024 Basophils/100 WBC (Bld) 0.8 % 0-1 [facility] Bilirubin, totalOrdered By: David Pinkamnatereza on 11-22-2024 Bilirubin [Mass/Vol] 0.67 mg/dL 0.00-1.30 [facility] Carbon dioxide, total [Moles /volume] in Central venous bloodOrdered By: David Miramontes on 11-22-2024 CO2 [Moles/Vol] 27.6 mmol/L 21.0-32.0 [facility] Chloride assayOrdered By: Mayra Miramontes on 11-22-2024 Chloride [Moles/Vol] 102 mmol/L 98-108 [facility] Eosinophil percentageOrdered By: David Pinkamnatereza on 11-22-2024 Eosinophils/100 WBC (Bld) 1.9 % 0-5 [facility] Erythrocyte distribution wid th ratioOrdered By: David Pinkamnatereza on 11-22-2024 Erythrocyte distribution width (RBC) [Ratio] 14.6 % 11.6-14.6 [facility] Erythrocyte distribution wid th standard deviationOrdered By: David Pinkamnatereza on 11-22-2024 Erythrocyte distribution width (RBC) [Ratio] 53.3 fl High 35.1-43.9 [facility] Glomerular filtration rate ( GFR) estimation/1.73 sq m using serum, plasma, or whole bOrdered By: David Miramontes on 11-22-2024 GFR/1.73 sq M.predicted among non-blacks MDRD (S/P/Bld) [Vol rate/Area] 74 mL/min/{1.73_m2} >60 [facility] Comment on above: mL/min/1.73m2 CKD-EP I Creatinine Equation (2020) Hematocrit Auto (Bld) [Volum e fraction]Ordered By: Frandysmithdaleingris Miramontes on 11-22-2024 Hematocrit (Bld) [Volume fraction] 43.3 % 40-54 [facility] Hemoglobin measurementOrdere d By: David Miramontes on 11-22-2024 Hemoglobin (Bld) [Mass/Vol] 13.9 g/dL 13.0-16.5 [facility] Immature granulocytes/100 WB C Auto (Bld)Ordered By: David Miramontes on 11-22-2024 Immature granulocytes/100 WBC (Bld) 0.300 % 0.0-0.9 [facility] Comment on above: IG% - Immature Granu locytes (promyelocytes, myelocytes and metamyelocytes) > 1% indicates that a LEFT SHIFT is Present. Laboratory - Chemistry and C hemistry - challengeOrdered By: David Miramontes on 11-22-2024 AST [Catalytic activity/Vol] 29 U/L <38 [facility] Comment on above: Hemolysis present, R esults could be affected. MCV (mean corpuscular volume ) determinationOrdered By: David Miramontes on 11-22-2024 MCV (RBC) [Entitic vol] 99.1 fL High 80-94 [facility] Mean corpuscular hemoglobin (MCH) determinationOrdered By: David Miramontes on 11-22-2024 MCH (RBC) [Entitic mass] 31.8 pg 27.0-32.0 [facility] Mean corpuscular hemoglobin concentration (MCHC) determinationOrdered By: David Miramontes 11-22-2024 MCHC (RBC) [Mass/Vol] 32.1 g/dL 32-36 [facility] Mean platelet volume determi nationOrdered By: David Joesphamnatereza on 11-22-2024 Platelet mean volume (Bld) [Entitic vol] 12.1 fL High 6.2-12.0 [facility] Monocyte percentageOrdered B y: Mayrawanyefeliciaingris Pinkamnatereza on 11-22-2024 Monocytes/100 WBC (Bld) 10.0 % 0-10 [facility] Neutrophil percentageOrdered By: Mayradanay Pinkamnatereza on 11-22-2024 Neutrophils/100 WBC (Bld) 68.7 % 47-70 [facility] Nucleated red blood cell per centageOrdered By: Mayrawaynecarleen Joesphamnatereza on 11-22-2024 Nucleated RBC/100 WBC (Bld) [Ratio] 0 % 0-5 [facility] Platelet countOrdered By: Mayra fawadingris Pinkamnatereza on 11-22-2024 Platelets (Bld) [#/Vol] 209 10*3/uL 150-450 [facility] Potassium measurement (mass/ volume)Ordered By: David Miramontes on 11-22-2024 Potassium (Unsp spec) [Mass/Vol] 4.3 mmol/L 3.3-5.1 [facility] Comment on above: Hemolysis present, R esults could be affected. RBC Auto (Bld) [#/Vol]Ordere d By: David Pinkamnatereza on 11-22-2024 RBC (Bld) [#/Vol] 4.37 10*6/uL Low 4.6-6.2 [facility] Serum creatinine measurement (mass/volume)Ordered By: David Miramontes on 11-22-2024 Creatinine [Mass/Vol] 1.00 mg/dL 0.70-1.20 [facility] Serum globulin measurementOr dered By: David Miramontes on 11-22-2024 Globulin (S) [Mass/Vol] 3.0 g/dL 2.2-4.2 [facility] Serum glucose measurement (m ass/volume)Ordered By: David Miramontes on 11-22-2024 Glucose [Mass/Vol] 82 mg/dL 70-99 [facility] Serum or plasma alanine grant otransferase (ALT) measurementOrdered By: David Miramontes on 11-22-2024 ALT [Catalytic activity/Vol] 7 U/L <47 [facility] Serum or plasma albumin siobhan urement (mass/volume)Ordered By: David Miramontes on 11-22-2024 Albumin [Mass/Vol] 3.6 g/dL 3.4-4.8 [facility] Serum or plasma albumin/glob ulin mass ratioOrdered By: David Miramontes on 11-22-2024 Albumin/Globulin [Mass ratio] 1.2 {ratio} 0.9-2.4 [facility] Serum or plasma alkaline deven sphatase measurementOrdered By: David Miramontes on 11-22-2024 ALP [Catalytic activity/Vol] 73 U/L 40-129 [facility] Serum or plasma calcium siobhan urement (mass/volume)Ordered By: David Miramontes on 11-22-2024 Calcium [Mass/Vol] 9.4 mg/dL 7.6-11.0 [facility] Serum or plasma urea nitroge n measurement (mass/volume)Ordered By: David Miramontes on 11-22-2024 Urea nitrogen [Mass/Vol] 13 mg/dL 4-19 [facility] Sodium levelOrdered By: Frandy chavezyonatan Kulwinder on 11-22-2024 Sodium [Moles/Vol] 140 mmol/L 133-145 [facility] Total proteinOrdered By: Lg Miramontes on 11-22-2024 Protein [Mass/Vol] 6.6 g/dL 5.9-8.4 [facility] White blood cell (WBC) count Ordered By: David Miramontes on 11-22-2024 WBC (Bld) [#/Vol] 6.3 10*3/uL 4.4-11.0 [facility] Absolute lymphocyte countOrd ered By: David Miramontes on 11-07-2024 Lymphocytes Auto (Unsp spec) [#/Vol] 1.03 10*3/uL 0.83-4.51 [facility] Absolute neutrophil countOrd ered By: David Miramontes on 11-07-2024 Neutrophils (Bld) [#/Vol] 6.7 10*3/uL 2.0-7.7 [facility] Anion gap in Serum or Plasma Ordered By: David Miramontes on 11-07-2024 Anion gap [Moles/Vol] 13 mmol/L 5-15 [facility] Automated lymphocyte count a s percentage of total leukocytesOrdered By: David Miramontes on 11-07-2024 Lymphocytes/100 WBC Auto (Unsp spec) 11.7 % Low 19-41 [facility] BUN/creatinine ratioOrdered By: David Miramontes on 11-07-2024 Urea nitrogen/Creatinine [Mass ratio] 23.6 mg/mg High 10-20 [facility] Basophil percentageOrdered B y: David Miramontes on 11-07-2024 Basophils/100 WBC (Bld) 0.3 % 0-1 [facility] Carbon dioxide, total [Moles /volume] in Central venous bloodOrdered By: danay Miramontes on 11-07-2024 CO2 [Moles/Vol] 23.9 mmol/L 21.0-32.0 [facility] Chloride assayOrdered By: Mayra Miramontes on 11-07-2024 Chloride [Moles/Vol] 104 mmol/L 98-108 [facility] Eosinophil percentageOrdered By: danay Miramontes on 11-07-2024 Eosinophils/100 WBC (Bld) 1.1 % 0-5 [facility] Erythrocyte distribution wid th ratioOrdered By: David Miramontes on 11-07-2024 Erythrocyte distribution width (RBC) [Ratio] 14.5 % 11.6-14.6 [facility] Erythrocyte distribution wid th standard deviationOrdered By: waynesmithdaleingris Miramontes on 11-07-2024 Erythrocyte distribution width (RBC) [Ratio] 51.7 fl High 35.1-43.9 [facility] Glomerular filtration rate ( GFR) estimation/1.73 sq m using serum, plasma, or whole bOrdered By: David Miramontes on 11-07-2024 GFR/1.73 sq M.predicted among non-blacks MDRD (S/P/Bld) [Vol rate/Area] 79 mL/min/{1.73_m2} >60 [facility] Comment on above: mL/min/1.73m2 CKD-EP I Creatinine Equation (2020) Hematocrit Auto (Bld) [Volum e fraction]Ordered By: David Miramontes on 11-07-2024 Hematocrit (Bld) [Volume fraction] 41.3 % 40-54 [facility] Hemoglobin measurementOrdere d By: David Miramontes on 11-07-2024 Hemoglobin (Bld) [Mass/Vol] 13.4 g/dL 13.0-16.5 [facility] Immature granulocytes/100 WB C Auto (Bld)Ordered By: waynesmithdaleingris Miramontes on 11-07-2024 Immature granulocytes/100 WBC (Bld) 0.500 % 0.0-0.9 [facility] Comment on above: IG% - Immature Granu locytes (promyelocytes, myelocytes and metamyelocytes) > 1% indicates that a LEFT SHIFT is Present. MCV (mean corpuscular volume ) determinationOrdered By: David Miramontes on 11-07-2024 MCV (RBC) [Entitic vol] 97.6 fL High 80-94 [facility] Mean corpuscular hemoglobin (MCH) determinationOrdered By: waynesmithdaleingris Miramontes on 11-07-2024 MCH (RBC) [Entitic mass] 31.7 pg 27.0-32.0 [facility] Mean corpuscular hemoglobin concentration (MCHC) determinationOrdered By: David Miramontes on 11-07-2024 MCHC (RBC) [Mass/Vol] 32.4 g/dL 32-36 [facility] Mean platelet volume determi nationOrdered By: Frandysmithdaleingris Miramontes on 11-07-2024 Platelet mean volume (Bld) [Entitic vol] 11.6 fL 6.2-12.0 [facility] Monocyte percentageOrdered B y: David Miramontes on 11-07-2024 Monocytes/100 WBC (Bld) 10.3 % High 0-10 [facility] Neutrophil percentageOrdered By: David Miramontes on 11-07-2024 Neutrophils/100 WBC (Bld) 76.1 % High 47-70 [facility] Nucleated red blood cell per centageOrdered By: David Miramontes on 11-07-2024 Nucleated RBC/100 WBC (Bld) [Ratio] 0 % 0-5 [facility] Platelet countOrdered By: Mayra Miramontes on 11-07-2024 Platelets (Bld) [#/Vol] 219 10*3/uL 150-450 [facility] Potassium measurement (mass/ volume)Ordered By: David Miramontes on 11-07-2024 Potassium (Unsp spec) [Mass/Vol] 3.4 mmol/L 3.3-5.1 [facility] RBC Auto (Bld) [#/Vol]Ordere d By: David Miramontes on 11-07-2024 RBC (Bld) [#/Vol] 4.23 10*6/uL Low 4.6-6.2 [facility] Serum creatinine measurement (mass/volume)Ordered By: David Miramontes on 11-07-2024 Creatinine [Mass/Vol] 0.94 mg/dL 0.70-1.20 [facility] Serum glucose measurement (m ass/volume)Ordered By: David Miramontes on 11-07-2024 Glucose [Mass/Vol] 103 mg/dL High 70-99 [facility] Serum or plasma calcium siobhan urement (mass/volume)Ordered By: David Miarmontes on 11-07-2024 Calcium [Mass/Vol] 9.3 mg/dL 7.6-11.0 [facility] Serum or plasma urea nitroge n measurement (mass/volume)Ordered By: David Miramontes on 11-07-2024 Urea nitrogen [Mass/Vol] 22 mg/dL High 4-19 [facility] Sodium levelOrdered By: Frandy Miramonets on 11-07-2024 Sodium [Moles/Vol] 140 mmol/L 133-145 [facility] White blood cell (WBC) count Ordered By: David Miramontes on 11-07-2024 WBC (Bld) [#/Vol] 8.8 10*3/uL 4.4-11.0 [facility] Brain/Head without Contrasto n 11-02-2024 Brain/Head without Contrast [facility] Imaging Services [address] [place] [address] Brain/Head without Contrast MR#: [id number] Acct: [id number] Name: KEL DILLARD Rep #: [id number] : 1940 M 84 From: Grabiel ellis MD PCP: Dr. David Miramontes MD Status: REG ER Study: Brain/Head without Contrast Date of Exam: 06/23 Exam# [id number] Ordering Dr: Abhinav Leigh MD PROCEDURE: BRAIN/HEAD [...] an acute traumatic brain abnormality. Reading [facility] CC: Dr. David Miramontes MD; Dr. Abhinav Leigh MD Compensation Programs Manager: Signed Normal [facility] Emergency Department Summary on 11-02-2024 Emergency Department Summary [facility] Medical Records Department [address] [place] [address] Emergency Department Summary 11/02/24 MR#: [id number] Acct: [id number] Name: KEL DILLARD Rep #: [id number] : 1940 84 From: Abhinav Leigh MD [...] extended care facility. He is currently at [facility]. Tonight they found him in his room on the floor. It was an unwitnessed fall. No idea if he had any LOC. When they went to move him he reportedly had neck pain even though currently has no complaints. [facility]. Patient's been seen at least 3-4 [...] soft nontender. Moving all 4 extremities. 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 Dorsi plantarflexion intact. He can flex extend at both hips and knees. There is no hip tenderness. No shortening or rotation. Back nontender no bruising. Neurologically is awake (more content not included)... Normal [facility] Spine Cervical without Contr ason 11-02-2024 Spine Cervical without Contras [facility] Imaging Services [address] [place] [address] Spine Cervical without Contras MR#: [id number] Acct: [id number] Name: KEL DILLARD Rep #: [id number] : 1940 M 84 From: Grabiel ellis MD PCP: Dr. David Miramontes MD Status: REG ER Study: Spine Cervical without Contras Date of Exam: 0 11/02/24 Exam# [id number] Ordering Dr: Abhinav Leigh MD PROCEDURE: SPINE [...] of an acute traumatic abnormality. Reading Location: [place] [address] CC: Dr. David Miramontes MD; Dr. Abhinav Leigh MD Compensation Programs Manager: Signed Normal [facility] Emergency Department Summary on 10-29-2024 Emergency Department Summary [facility] Medical Records Department [address] [place] [id number] Emergency Department Summary 10/29/24 MR#: [id number] Acct: [id number] Name: KEL DILLARD Rep #: [id number] : 1940 84 From: Abhinav Leigh MD [...] HEENT exa (more content not included)... Normal [facility] Hand Min 3 Viewson 5 Hand Min 3 Views [facility] Imaging Services [address] [place] [address] Hand Min 3 Views MR#: [id number] Acct: [id number] Name: KEL DILLARD Rep #: [id number] : 1940 M 84 From: Sue Martinez MD PCP: Dr. David Miramontes MD Status: REG ER Study: Hand Min 3 Views Date of Exam: 10/29/24 Exam# [id number] Ordering Dr: Abhinav Leigh MD PROCEDURE: HAND MIN 3 VIEWS 10/29/2024 REASON FOR EXAM: FALL TECHNIQUE: Procedure Code: [id number] Modality: DX Procedure: HAND MIN 3 VIEWS Laterality: Left COMPARISON: None. FINDINGS: Bones: No acute bony abnormalities. Joints: Unremarkable. Soft tissues: No soft tissue abnormalities. RAD/Hand Min 3 Views IMPRESSION: No acute osseous abnormalities. Reading Location: [facility] CC: Dr. David Miramontes MD; Dr. Abhinav Leigh MD Compensation Programs Manager: Signed Normal [facility] Wrist min 3 Viewson 10-30-19 Wrist min 3 Views [facility] Imaging Services [address] [place] [address] Wrist min 3 Views MR#: [id number] Acct: [id number] Name: KEL DILLARD Rep #: [id number] : 1940 M 84 From: Sue Martinez MD PCP: Dr. David Miramontes MD Status: REG ER Study: Wrist min 3 Views Date of Exam: 10/29/24 Exam# [id number] Ordering Dr: Abhinav Leigh MD PROCEDURE: WRIST [...] acute osseous abnormalities. Mild arthritis. Reading Location: [facility] CC: Dr. David Miramontes MD; Dr. Abhinav Leigh MD Compensation Programs Manager: Signed Normal [facility] Brain/Head without Contrasto n 10-27-2024 Brain/Head without Contrast [facility] Imaging Services [address] [address] Brain/Head without Contrast MR#: [id number] Acct: [id number] Name: KEL DILLARD Rep #: [id number] : 1940 M 84 From: Paulie Mariano MD PCP: Dr. David Miramontes MD Status: REG ER Study: Brain/Head without Contrast Date of Exam: 09/30 11/23 Exam# [id number] Ordering Dr: Ira Abad PROCEDURE: CT BRAIN/HEAD [...] loss and chronic microangiopathic changes. Reading Location: [facility] CC: Dr. David Miramontes MD; ERWIN Phillip Compensation Programs Manager: Signed Normal [facility] Emergency Department Summary on 10-27-2024 Emergency Department Summary [facility] Medical Records Department [address] [place] [id number] Emergency Department Summary 10/27/24 MR#: [id number] Acct: [id number] Name: KEL DILLARD Rep #: [id number] : 1940 84 From: Abhinav Leigh MD [...] which is baseline. He has no complaints. [facility] Medical History Alzheimers disease Former smoker Dementia [...] right frontal (more content not included)... Normal [facility] Gram stainOrdered By: Jarrell Miramontes on 09-25-2024 Microscopic observation Gram stain Nom (Unsp spec) [facility] Anion gap in Serum or Plasma Ordered By: David Miramontes on 09-07-2024 Anion gap [Moles/Vol] 9 mmol/L 5-15 [facility] BUN/creatinine ratioOrdered By: David Miramontes on 09-07-2024 Urea nitrogen/Creatinine [Mass ratio] 15.9 mg/mg 10- [facility] Carbon dioxide, total [Moles /volume] in Central venous bloodOrdered By: David Miramontes on 09-07-2024 CO2 [Moles/Vol] 28.4 mmol/L 21.0-32.0 [facility] Chloride assayOrdered By: Mayra Miramontes on 09-07-2024 Chloride [Moles/Vol] 104 mmol/L 98-108 [facility] Glomerular filtration rate ( GFR) estimation/1.73 sq m using serum, plasma, or whole bOrdered By: David Miramontes on 09-07-2024 GFR/1.73 sq M.predicted among non-blacks MDRD (S/P/Bld) [Vol rate/Area] 72 mL/min/{1.73_m2} >60 [facility] Comment on above: mL/min/1.73m2 CKD-EP I Creatinine Equation (2020) Potassium measurement (mass/ volume)Ordered By: David Miramontes on 09-07-2024 Potassium (Unsp spec) [Mass/Vol] 4.0 mmol/L 3.3-5.1 [facility] Serum creatinine measurement (mass/volume)Ordered By: David Miramontes 09-07-2024 Creatinine [Mass/Vol] 1.02 mg/dL 0.70-1.20 [facility] Serum glucose measurement (m ass/volume)Ordered By: David Miramontes 09-07-2024 Glucose [Mass/Vol] 80 mg/dL 70-99 [facility] Serum or plasma calcium siobhan urement (mass/volume)Ordered By: David Miramontes on 09-07-2024 Calcium [Mass/Vol] 9.3 mg/dL 7.6-11.0 [facility] Serum or plasma urea nitroge n measurement (mass/volume)Ordered By: David Miramontes on 09-07-2024 Urea nitrogen [Mass/Vol] 16 mg/dL 4-19 [facility] Sodium levelOrdered By: Frandy Miramontes on 09-07-2024 Sodium [Moles/Vol] 141 mmol/L 133-145 [facility] Anion gap in Serum or Plasma Ordered By: David Miramontes on 08-31-2024 Anion gap [Moles/Vol] 10 mmol/L 5-15 [facility] BUN/creatinine ratioOrdered By: David Miramontes on 08-31-2024 Urea nitrogen/Creatinine [Mass ratio] 12.4 mg/mg 10-20 [facility] Carbon dioxide, total [Moles /volume] in Central venous bloodOrdered By: David Miramontes on 08-31-2024 CO2 [Moles/Vol] 26.4 mmol/L 21.0-32.0 [facility] Chloride assayOrdered By: Mayra Miramontes on 08-31-2024 Chloride [Moles/Vol] 103 mmol/L 98-108 [facility] Glomerular filtration rate ( GFR) estimation/1.73 sq m using serum, plasma, or whole bOrdered By: David Miramontes on 08-31-2024 GFR/1.73 sq M.predicted among non-blacks MDRD (S/P/Bld) [Vol rate/Area] 80 mL/min/{1.73_m2} >60 [facility] Comment on above: mL/min/1.73m2 CKD-EP I Creatinine Equation (2020) Potassium measurement (mass/ volume)Ordered By: David Miramontes on 08-31-2024 Potassium (Unsp spec) [Mass/Vol] 4.2 mmol/L 3.3-5.1 [facility] Serum creatinine measurement (mass/volume)Ordered By: David Miramontes on 08-31-2024 Creatinine [Mass/Vol] 0.93 mg/dL 0.70-1.20 [facility] Serum glucose measurement (m ass/volume)Ordered By: David Miramontes on 08-31-2024 Glucose [Mass/Vol] 86 mg/dL 70-99 [facility] Serum or plasma calcium siobhan urement (mass/volume)Ordered By: David Miramontes on 08-31-2024 Calcium [Mass/Vol] 9.4 mg/dL 7.6-11.0 [facility] Serum or plasma urea nitroge n measurement (mass/volume)Ordered By: David Miramontes on 08-31-2024 Urea nitrogen [Mass/Vol] 12 mg/dL 4-19 [facility] Sodium levelOrdered By: Frandy carleen Kulwinder on 08-31-2024 Sodium [Moles/Vol] 139 mmol/L 133-145 [facility] Absolute lymphocyte countOrd ered By: David Miramontes on 08-22-2024 Lymphocytes Auto (Unsp spec) [#/Vol] 1.28 10*3/uL 0.83-4.51 [facility] Absolute neutrophil countOrd ered By: David Miramontes on 08-22-2024 Neutrophils (Bld) [#/Vol] 5.0 10*3/uL 2.0-7.7 [facility] Anion gap in Serum or Plasma Ordered By: David Miramontes on 08-22-2024 Anion gap [Moles/Vol] 8 mmol/L 5-15 [facility] Automated lymphocyte count a s percentage of total leukocytesOrdered By: David Miramontes on 08-22-2024 Lymphocytes/100 WBC Auto (Unsp spec) 17.6 % Low 19-41 [facility] BUN/creatinine ratioOrdered By: David Miramontes on 08-22-2024 Urea nitrogen/Creatinine [Mass ratio] 13.7 mg/mg 10-20 [facility] Basophil percentageOrdered B y: David Miramontes on 08-22-2024 Basophils/100 WBC (Bld) 0.7 % 0-1 [facility] Bilirubin, totalOrdered By: David Miramontes on 08-22-2024 Bilirubin [Mass/Vol] 0.31 mg/dL 0.00-1.30 [facility] Carbon dioxide, total [Moles /volume] in Central venous bloodOrdered By: David Miramontes on 08-22-2024 CO2 [Moles/Vol] 28.1 mmol/L 21.0-32.0 [facility] Chloride assayOrdered By: Mayra Miramontes on 08-22-2024 Chloride [Moles/Vol] 107 mmol/L 98-108 [facility] Eosinophil percentageOrdered By: David Miramontes on 08-22-2024 Eosinophils/100 WBC (Bld) 2.6 % 0-5 [facility] Erythrocyte distribution wid th ratioOrdered By: danay Miramontes on 08-22-2024 Erythrocyte distribution width (RBC) [Ratio] 15.3 % High 11.6-14.6 [facility] Erythrocyte distribution wid th standard deviationOrdered By: David Miramontes on 08-22-2024 Erythrocyte distribution width (RBC) [Ratio] 57.1 fl High 35.1-43.9 [facility] Glomerular filtration rate ( GFR) estimation/1.73 sq m using serum, plasma, or whole bOrdered By: David Miramontes on 08-22-2024 GFR/1.73 sq M.predicted among non-blacks MDRD (S/P/Bld) [Vol rate/Area] 78 mL/min/{1.73_m2} >60 [facility] Comment on above: mL/min/1.73m2 CKD-EP I Creatinine Equation (2020) Hematocrit Auto (Bld) [Volum e fraction]Ordered By: David Miramontes on 08-22-2024 Hematocrit (Bld) [Volume fraction] 41.1 % 40-54 [facility] Hemoglobin measurementOrdere d By: David Miramontes on 08-22-2024 Hemoglobin (Bld) [Mass/Vol] 12.9 g/dL Low 13.0-16.5 [facility] Immature granulocytes/100 WB C Auto (Bld)Ordered By: David Miramontes on 08-22-2024 Immature granulocytes/100 WBC (Bld) 0.600 % 0.0-0.9 [facility] Comment on above: IG% - Immature Granu locytes (promyelocytes, myelocytes and metamyelocytes) > 1% indicates that a LEFT SHIFT is Present. Laboratory - Chemistry and C hemistry - challengeOrdered By: David Miramontes on 08-22-2024 AST [Catalytic activity/Vol] 34 U/L <38 [facility] MCV (mean corpuscular volume ) determinationOrdered By: David Miramontes on 08-22-2024 MCV (RBC) [Entitic vol] 102.5 fL High 80-94 [facility] Mean corpuscular hemoglobin (MCH) determinationOrdered By: David Miramontes on 08-22-2024 MCH (RBC) [Entitic mass] 32.2 pg High 27.0-32.0 [facility] Mean corpuscular hemoglobin concentration (MCHC) determinationOrdered By: David Miramontes on 08-22-2024 MCHC (RBC) [Mass/Vol] 31.4 g/dL Low 32-36 [facility] Mean platelet volume determi nationOrdered By: David Pinkamnatereza on 08-22-2024 Platelet mean volume (Bld) [Entitic vol] 11.4 fL 6.2-12.0 [facility] Monocyte percentageOrdered B y: David Miramontes on 08-22-2024 Monocytes/100 WBC (Bld) 10.0 % 0-10 [facility] Neutrophil percentageOrdered By: David Miramontes on 08-22-2024 Neutrophils/100 WBC (Bld) 68.5 % 47-70 [facility] Nucleated red blood cell per centageOrdered By: David Miramontes on 08-22-2024 Nucleated RBC/100 WBC (Bld) [Ratio] 0 % 0-5 [facility] Platelet countOrdered By: Mayra Miramontes on 08-22-2024 Platelets (Bld) [#/Vol] 170 10*3/uL 150-450 [facility] Potassium measurement (mass/ volume)Ordered By: David Miramontes on 08-22-2024 Potassium (Unsp spec) [Mass/Vol] 3.8 mmol/L 3.3-5.1 [facility] RBC Auto (Bld) [#/Vol]Ordere d By: David Miramontes on 08-22-2024 RBC (Bld) [#/Vol] 4.01 10*6/uL Low 4.6-6.2 [facility] Serum creatinine measurement (mass/volume)Ordered By: David Miramontes on 08-22-2024 Creatinine [Mass/Vol] 0.96 mg/dL 0.70-1.20 [facility] Serum globulin measurementOr dered By: David Miramontes on 08-22-2024 Globulin (S) [Mass/Vol] 2.7 g/dL 2.2-4.2 [facility] Serum glucose measurement (m ass/volume)Ordered By: David Miramontes on 08-22-2024 Glucose [Mass/Vol] 82 mg/dL 70-99 [facility] Serum or plasma alanine grant otransferase (ALT) measurementOrdered By: David Miramontes on 08-22-2024 ALT [Catalytic activity/Vol] 13 U/L <47 [facility] Serum or plasma albumin siobhan urement (mass/volume)Ordered By: David Miramontes on 08-22-2024 Albumin [Mass/Vol] 3.5 g/dL 3.4-4.8 [facility] Serum or plasma albumin/glob ulin mass ratioOrdered By: David Miramontes on 08-22-2024 Albumin/Globulin [Mass ratio] 1.3 {ratio} 0.9-2.4 [facility] Serum or plasma alkaline deven sphatase measurementOrdered By: David Miramontes on 08-22-2024 ALP [Catalytic activity/Vol] 106 U/L 40-129 [facility] Serum or plasma calcium siobhan urement (mass/volume)Ordered By: David Miramontes on 08-22-2024 Calcium [Mass/Vol] 8.9 mg/dL 7.6-11.0 [facility] Serum or plasma urea nitroge n measurement (mass/volume)Ordered By: David Miramontes on 08-22-2024 Urea nitrogen [Mass/Vol] 13 mg/dL 4-19 [facility] Sodium levelOrdered By: Frandy chavezyonatan Kulwinder on 08-22-2024 Sodium [Moles/Vol] 142 mmol/L 133-145 [facility] Total proteinOrdered By: Lg rupinderingris Miramontes on 08-22-2024 Protein [Mass/Vol] 6.2 g/dL 5.9-8.4 [facility] White blood cell (WBC) count Ordered By: David Miramontes on 08-22-2024 WBC (Bld) [#/Vol] 7.3 10*3/uL 4.4-11.0 [facility] Anion gap in Serum or Plasma Ordered By: David Miramontes on 08-02-2024 Anion gap [Moles/Vol] 11 mmol/L 5-15 [facility] BUN/creatinine ratioOrdered By: David Miramontes on 08-02-2024 Urea nitrogen/Creatinine [Mass ratio] 12.3 mg/mg 10-20 [facility] Carbon dioxide, total [Moles /volume] in Central venous bloodOrdered By: David Miramontes on 08-02-2024 CO2 [Moles/Vol] 24.2 mmol/L 21.0-32.0 [facility] Chloride assayOrdered By: Mayra waynecarleen Miramontes on 08-02-2024 Chloride [Moles/Vol] 105 mmol/L 98-108 [facility] Glomerular filtration rate ( GFR) estimation/1.73 sq m using serum, plasma, or whole bOrdered By: David Miramontes on 08-02-2024 GFR/1.73 sq M.predicted among non-blacks MDRD (S/P/Bld) [Vol rate/Area] 73 mL/min/{1.73_m2} >60 [facility] Comment on above: mL/min/1.73m2 CKD-EP I Creatinine Equation (2020) Potassium measurement (mass/ volume)Ordered By: David Miramontes on 08-02-2024 Potassium (Unsp spec) [Mass/Vol] 3.7 mmol/L 3.3-5.1 [facility] Serum creatinine measurement (mass/volume)Ordered By: David Miramontes on 08-02-2024 Creatinine [Mass/Vol] 1.01 mg/dL 0.70-1.20 [facility] Serum glucose measurement (m ass/volume)Ordered By: David Miramontes on 08-02-2024 Glucose [Mass/Vol] 140 mg/dL High 70-99 [facility] Serum or plasma calcium siobhan urement (mass/volume)Ordered By: David Miramontes on 08-02-2024 Calcium [Mass/Vol] 9.1 mg/dL 7.6-11.0 [facility] Serum or plasma urea nitroge n measurement (mass/volume)Ordered By: David Miramontes on 08-02-2024 Urea nitrogen [Mass/Vol] 12 mg/dL 4-19 [facility] Sodium levelOrdered By: Frandy chavezyonatan Kulwinder on 08-02-2024 Sodium [Moles/Vol] 141 mmol/L 133-145 [facility] Absolute lymphocyte countOrd ered By: David Miramontes on 08-01-2024 Lymphocytes Auto (Unsp spec) [#/Vol] 1.39 10*3/uL 0.83-4.51 [facility] Absolute neutrophil countOrd ered By: David Miramontes on 08-01-2024 Neutrophils (Bld) [#/Vol] 4.8 10*3/uL 2.0-7.7 [facility] Automated lymphocyte count a s percentage of total leukocytesOrdered By: David Miramontes on 08-01-2024 Lymphocytes/100 WBC Auto (Unsp spec) 18.9 % Low 19-41 [facility] Basophil percentageOrdered B y: David Miramontes on 08-01-2024 Basophils/100 WBC (Bld) 0.4 % 0-1 [facility] Eosinophil percentageOrdered By: David Miramontes on 08-01-2024 Eosinophils/100 WBC (Bld) 2.6 % 0-5 [facility] Erythrocyte distribution wid th ratioOrdered By: David Miramontes on 08-01-2024 Erythrocyte distribution width (RBC) [Ratio] 15.5 % High 11.6-14.6 [facility] Erythrocyte distribution wid th standard deviationOrdered By: David Miramontes on 08-01-2024 Erythrocyte distribution width (RBC) [Ratio] 57.9 fl High 35.1-43.9 [facility] Hematocrit Auto (Bld) [Volum e fraction]Ordered By: David Miramontes on 08-01-2024 Hematocrit (Bld) [Volume fraction] 40.2 % 40-54 [facility] Hemoglobin measurementOrdere d By: David Miramontes on 08-01-2024 Hemoglobin (Bld) [Mass/Vol] 12.6 g/dL Low 13.0-16.5 [facility] Immature granulocytes/100 WB C Auto (Bld)Ordered By: waynesmithdaleingris Miramontes on 08-01-2024 Immature granulocytes/100 WBC (Bld) 0.400 % 0.0-0.9 [facility] Comment on above: IG% - Immature Granu locytes (promyelocytes, myelocytes and metamyelocytes) > 1% indicates that a LEFT SHIFT is Present. MCV (mean corpuscular volume ) determinationOrdered By: David Miramontes on 08-01-2024 MCV (RBC) [Entitic vol] 100.8 fL High 80-94 [facility] Mean corpuscular hemoglobin (MCH) determinationOrdered By: David Miramontes on 08-01-2024 MCH (RBC) [Entitic mass] 31.6 pg 27.0-32.0 [facility] Mean corpuscular hemoglobin concentration (MCHC) determinationOrdered By: danay Miramontes on 08-01-2024 MCHC (RBC) [Mass/Vol] 31.3 g/dL Low 32-36 [facility] Mean platelet volume determi nationOrdered By: David Miramontes on 08-01-2024 Platelet mean volume (Bld) [Entitic vol] 11.8 fL 6.2-12.0 [facility] Monocyte percentageOrdered B y: David Miramontes on 08-01-2024 Monocytes/100 WBC (Bld) 12.5 % High 0-10 [facility] Neutrophil percentageOrdered By: David Miramontes on 08-01-2024 Neutrophils/100 WBC (Bld) 65.2 % 47-70 [facility] Nucleated red blood cell per centageOrdered By: David Miramontes on 08-01-2024 Nucleated RBC/100 WBC (Bld) [Ratio] 0 % 0-5 [facility] Platelet countOrdered By: Mayra waynecarleen Miramontes on 08-01-2024 Platelets (Bld) [#/Vol] 182 10*3/uL 150-450 [facility] RBC Auto (Bld) [#/Vol]Ordere d By: David Miramontes on 08-01-2024 RBC (Bld) [#/Vol] 3.99 10*6/uL Low 4.6-6.2 [facility] White blood cell (WBC) count Ordered By: David Miramontes on 08-01-2024 WBC (Bld) [#/Vol] 7.4 10*3/uL 4.4-11.0 [facility] Absolute lymphocyte countOrd ered By: David Miramontes on 07-21-2024 Lymphocytes Auto (Unsp spec) [#/Vol] 1.21 10*3/uL 0.83-4.51 [facility] Absolute neutrophil countOrd ered By: David Miramontes on 07-21-2024 Neutrophils (Bld) [#/Vol] 5.1 10*3/uL 2.0-7.7 [facility] Anion gap in Serum or Plasma Ordered By: David Miramontes on 07-21-2024 Anion gap [Moles/Vol] 10 mmol/L 5-15 [facility] Automated lymphocyte count a s percentage of total leukocytesOrdered By: David Miramontes on 07-21-2024 Lymphocytes/100 WBC Auto (Unsp spec) 16.7 % Low 19-41 [facility] BUN/creatinine ratioOrdered By: David Miramontes on 07-21-2024 Urea nitrogen/Creatinine [Mass ratio] 16.2 mg/mg 10-20 [facility] Basophil percentageOrdered B y: Daivd Miramontes on 07-21-2024 Basophils/100 WBC (Bld) 0.4 % 0-1 [facility] Carbon dioxide, total [Moles /volume] in Central venous bloodOrdered By: David Miramontes on 07-21-2024 CO2 [Moles/Vol] 25.5 mmol/L 21.0-32.0 [facility] Chloride assayOrdered By: Mayra Miramontes on 07-21-2024 Chloride [Moles/Vol] 106 mmol/L 98-108 [facility] Eosinophil percentageOrdered By: danay Miramontes on 07-21-2024 Eosinophils/100 WBC (Bld) 1.4 % 0-5 [facility] Erythrocyte distribution wid th ratioOrdered By: danay Miramontes on 07-21-2024 Erythrocyte distribution width (RBC) [Ratio] 15.4 % High 11.6-14.6 [facility] Erythrocyte distribution wid th standard deviationOrdered By: waynesmithdaleingris Miramontes on 07-21-2024 Erythrocyte distribution width (RBC) [Ratio] 57.9 fl High 35.1-43.9 [facility] Glomerular filtration rate ( GFR) estimation/1.73 sq m using serum, plasma, or whole bOrdered By: David Miramontes on 07-21-2024 GFR/1.73 sq M.predicted among non-blacks MDRD (S/P/Bld) [Vol rate/Area] 67 mL/min/{1.73_m2} >60 [facility] Comment on above: mL/min/1.73m2 CKD-EP I Creatinine Equation (2020) Hematocrit Auto (Bld) [Volum e fraction]Ordered By: David Miramontes on 07-21-2024 Hematocrit (Bld) [Volume fraction] 39.0 % Low 40-54 [facility] Hemoglobin measurementOrdere d By: David Miramontes on 07-21-2024 Hemoglobin (Bld) [Mass/Vol] 12.4 g/dL Low 13.0-16.5 [facility] Immature granulocytes/100 WB C Auto (Bld)Ordered By: David Miramontes on 07-21-2024 Immature granulocytes/100 WBC (Bld) 0.400 % 0.0-0.9 [facility] Comment on above: IG% - Immature Granu locytes (promyelocytes, myelocytes and metamyelocytes) > 1% indicates that a LEFT SHIFT is Present. MCV (mean corpuscular volume ) determinationOrdered By: David Miramontes on 07-21-2024 MCV (RBC) [Entitic vol] 101.0 fL High 80-94 [facility] Mean corpuscular hemoglobin (MCH) determinationOrdered By: [facility] Hospital[facility] Pinktereza on 07-21-2024 MCH (RBC) [Entitic mass] 32.1 pg High 27.0-32.0 [facility] Mean corpuscular hemoglobin concentration (MCHC) determinationOrdered By: [facility] Hospital[facility] Pink[facility]reza on 07-21-2024 MCHC (RBC) [Mass/Vol] 31.8 g/dL Low 32-36 [facility] Mean platelet volume determi nationOrdered By: [facility] Hospitalingris Miramontes on 07-21-2024 Platelet mean volume (Bld) [Entitic vol] 11.7 fL 6.2-12.0 [facility] Monocyte percentageOrdered B y: David Miramontes on 07-21-2024 Monocytes/100 WBC (Bld) 11.3 % High 0-10 [facility] Neutrophil percentageOrdered By: [facility] Joesphtereza on 07-21-2024 Neutrophils/100 WBC (Bld) 69.8 % 47-70 [facility] Nucleated red blood cell per centageOrdered By: [facility] Hospitalingris Miramontes on 07-21-2024 Nucleated RBC/100 WBC (Bld) [Ratio] 0 % 0-5 [facility] Platelet countOrdered By: danay Pinktereza on 07-21-2024 Platelets (Bld) [#/Vol] 172 10*3/uL 150-450 [facility] Potassium measurement (mass/ volume)Ordered By: [facility] on 07-21-2024 Potassium (Unsp spec) [Mass/Vol] 3.9 mmol/L 3.3-5.1 [facility] RBC Auto (Bld) [#/Vol]Ordere d By: David Joesphiman on 07-21-2024 RBC (Bld) [#/Vol] 3.86 10*6/uL Low 4.6-6.2 [facility] Serum creatinine measurement (mass/volume)Ordered By: David Pinkamnatereza on 07-21-2024 Creatinine [Mass/Vol] 1.08 mg/dL 0.70-1.20 [facility] Serum glucose measurement (m ass/volume)Ordered By: David Miramontes on 07-21-2024 Glucose [Mass/Vol] 90 mg/dL 70-99 [facility] Serum or plasma calcium siobhan urement (mass/volume)Ordered By: Mayradanay Pinkamnatereza on 07-21-2024 Calcium [Mass/Vol] 9.1 mg/dL 7.6-11.0 [facility] Serum or plasma urea nitroge n measurement (mass/volume)Ordered By: David Miramontes on 07-21-2024 Urea nitrogen [Mass/Vol] 18 mg/dL 4-19 [facility] Sodium levelOrdered By: Frandy durant Joesphamnatereza on 07-21-2024 Sodium [Moles/Vol] 141 mmol/L 133-145 [facility] TSH DL <= 0.005 mIU/L QnOrde red By: Vickyingris Pinkamnatereza on 07-21-2024 TSH Qn 2.450 uIU/mL 0.300-4.200 [facility] White blood cell (WBC) count Ordered By: David Miramontes on 07-21-2024 WBC (Bld) [#/Vol] 7.3 10*3/uL 4.4-11.0 [facility] BLADDER SCANon 07-14-2024 PVR 59 [facility] BLADDER SCANOrdered By: Dayo Perez on 07-14-2024 [facility] CNOVon 07-14-2024 CNOV Office Visit (AKURFL) KEL DILLARD ([id number]) 1940 M Date Time Provider Department 07/14/24 9:00 AM DIANA ARANGO During your visit today, we recorded the following information about you: Diana Arango APRN.[facility] 07/14/2024 9:11 AM Signed [facility] - [place] [facility] NEW PATIENT UROLOGY VISIT 07/14/2024 [...] kg/m? Physical (more content not included)... Normal [facility] CYTOLOGY NON-GYNon 5 AP DISCLAIMER Normal [facility] Comment on above: Order Comment: Speci men Type: URINE SPECIMEN Ordering Facility: [facility] Address: [address] [place] [address] Result Comment: Hussain blanco Developed Test (LDT) Disclaimer: Performance characteristics of immunohistochemical, immunofluorescent, and chromogenic in-situ hybridization tests have been determined by the performing laboratory within [facility]'s [facility]ology and Laboratory Medicine Department ([facility], [facility], [facility], [facility], [facility], [facility], or [facility]) in a manner consistent with CLIA requirements. One or more of these tests may not have been cleared or approved by the FDA. [facility] is regulated under CLIA as qualified to perform high-complexity testing. These tests are used for clinical purposes. These should not be regarded as investigational or for research. Positive and negative controls stain appropriately. Performed By: #### [facility] #### [facility] CLIA [id number] [address] [place] [address] CASE REPORT Normal [facility] Comment on above: Order Comment: Speci men Type: URINE SPECIMEN Ordering Facility: [facility] Address: [address] [place] [address] Result Comment: [facility] Cytology Report Case: [id number] Authorizing Provider: Diana Arango Collected: 07/14/2024 09:01 AM MATTHEW Andres Ordering Location: [facility] Received: 07/17/2024 03:50 AM Pathologist: Rosy Cavazos MD Specimen: Urine, Midstream Performed By: #### C YTONON #### [facility] CLIA [id number] [address] CLINICAL HISTORY gross hematuria Normal [facility] Comment on above: Order Comment: Speci men Type: URINE SPECIMEN Ordering Facility: [facility] Address: [address] [place] [address] Performed By: #### C YTONON #### [facility] CLIA [id number] [address] [place] [address] [facility] Comment on above: Order Comment: Speci men Type: URINE SPECIMEN Ordering Facility: [facility] Address: [address] [place] [address] Result Comment: A - Urine, Midstream Negative for high-grade urothelial carcinoma. Blood. at 1046 EDT Performed By: #### C YTONON #### [facility] CLIA [id number] [address] [place] [address] FINAL PERFORMING LAB Normal [facility] Comment on above: Order Comment: Speci men Type: URINE SPECIMEN Ordering Facility: [facility] Address: [address] [place] [address] Result Comment: Tech nical component, franchise field consultant screening performed at: [facility], [address] [place] [address] CLIA: [id number] Diagnostic interpretation performed at: [facility], [address] [address] CLIA# [id number] Aerospace Mechanic: Josiah Ochoa MD Performed By: #### C Y[facility] #### [facility] CLIA [id number] [address] GROSS DESCRIPTION Normal [place] Comment on above: Order Comment: Speci men Type: URINE SPECIMEN Ordering Facility: [facility] Address: [address] [place] [address] Result Comment: A. U rine, Midstream 7.5 cc cloudy yellow fluid. ThinPrep prepared. Performed By: #### C YTONON #### [facility] CLIA [id number] [address] STATES OF [facility] UA DIP, URINE (POC)on 2024 BILIRUBIN UA (POCT) Negative Negative [facility] CLARITY UA (POCT) Clear [facility] COLOR UA (POCT) Yellow [facility] GLUCOSE UA (POCT) Negative Negative mg/dL [facility] Hemoglobin Ql (U) Trace-intact Abnormal Negative [facility] Interpretation and review of laboratory results Abnormal [facility] KETONE UA (POCT) Negative Negative mg/dL [facility] LEUKOCYTES UA (POCT) Negative Negative [facility] NITRITE UA (POCT) Negative Negative [facility] PH UA (POCT) 5.5 4.5 - 8.0 [facility] Protein Ql (U) 30 mg/dL Abnormal Negative [facility] SPECIFIC GRAVITY UA (POCT) 1.025 1.005 - 1.030 [facility] UROBILINOGEN UA (POCT) 0.2 Debbie l E.U./dL [facility] Location:[facility], [address] [place] [address], [address] [place] [address] POINT OF CARE [facility] Serum or plasma uric acid me asurement (mass/volume)Ordered By: David Miramontes on 06-23-2024 Urate [Mass/Vol] 4.2 mg/dL 3.5-7.2 [facility] Comment on above: The drugs N-Acetylcy steine and Metamizole may falsely depress this assay. Absolute lymphocyte countOrd ered By: David Guerratereza on 06-05-2024 Lymphocytes Auto (Unsp spec) [#/Vol] 1.05 10*3/uL 0.83-4.51 [facility] Absolute neutrophil countOrd ered By: David Guerratereza on 06-05-2024 Neutrophils (Bld) [#/Vol] 4.8 10*3/uL 2.0-7.7 [facility] Anion gap in Serum or Plasma Ordered By: David Pinkamnatereza on 06-05-2024 Anion gap [Moles/Vol] 11 mmol/L 5-15 [facility] Automated lymphocyte count a s percentage of total leukocytesOrdered By: David Pinkamnatereza on 06-05-2024 Lymphocytes/100 WBC Auto (Unsp spec) 15.8 % Low 19-41 [facility] BUN/creatinine ratioOrdered By: [facility] Hospitalingris Miramontes on 06-05-2024 Urea nitrogen/Creatinine [Mass ratio] 9.3 mg/mg Low 10-20 [facility] Basophil percentageOrdered B y: David Joesphamnatereza on 06-05-2024 Basophils/100 WBC (Bld) 1.1 % High 0-1 [facility] Carbon dioxide, total [Moles /volume] in Central venous bloodOrdered By: David Pinkamnatereza on 06-05-2024 CO2 [Moles/Vol] 26.8 mmol/L 21.0-32.0 [facility] Chloride assayOrdered By: waynecarleen Miramontes on 06-05-2024 Chloride [Moles/Vol] 101 mmol/L 98-108 [facility] Eosinophil percentageOrdered By: waynesmithdaleingris Pinkamnatereza on 06-05-2024 Eosinophils/100 WBC (Bld) 2.3 % 0-5 [facility] Erythrocyte distribution wid th (RBC) [Ratio]Ordered By: David Pinkamnatereza on 06-05-2024 Erythrocyte distribution width (RBC) [Entitic vol] 55.4 fL High 35.1-43.9 [facility] Erythrocyte distribution wid th ratioOrdered By: waynesmithdaleingris Pinkamnatereza on 06-05-2024 Erythrocyte distribution width (RBC) [Ratio] 15.0 % High 11.6-14.6 [facility] Erythrocyte distribution wid th standard deviationOrdered By: David Miramontes on 06-05-2024 Erythrocyte distribution width (RBC) [Ratio] 55.4 fl High 35.1-43.9 [facility] GFR/1.73 sq M.predicted eleazar g non-blacks MDRD (S/P/Bld) [Vol rate/Area]Ordered By: David Miramontes on 06-05-2024 Estimated GFR (MDRD) Non-Af Amer 48 Low >60 [facility] Comment on above: mL/min/1.73m2 CKD-EP I Creatinine Equation (2020) Glomerular filtration rate ( GFR) estimation/1.73 sq m using serum, plasma, or whole bOrdered By: David Miramontes on 06-05-2024 GFR/1.73 sq M.predicted among non-blacks MDRD (S/P/Bld) [Vol rate/Area] 48 mL/min/{1.73_m2} Low >60 [facility] Comment on above: mL/min/1.73m2 CKD-EP I Creatinine Equation (2020) Hematocrit Auto (Bld) [Volum e fraction]Ordered By: David Miramontes on 06-05-2024 Hematocrit (Bld) [Volume fraction] 41.8 % 40-54 [facility] Hemoglobin measurementOrdere d By: David Miramontes on 06-05-2024 Hemoglobin (Bld) [Mass/Vol] 13.3 g/dL 13.0-16.5 [facility] Immature granulocytes/100 WB C Auto (Bld)Ordered By: David Miramontes on 06-05-2024 Immature granulocytes/100 WBC (Bld) 0.300 % 0.0-0.9 [facility] Comment on above: IG% - Immature Granu locytes (promyelocytes, myelocytes and metamyelocytes) > 1% indicates that a LEFT SHIFT is Present. Lymphocytes Auto (Unsp spec) [#/Vol]Ordered By: David Miramontes on 06-05-2024 Lymphocytes (Bld) [#/Vol] 1.05 10*3/uL 0.83-4.51 [facility] Lymphocytes/100 WBC Auto (Un sp spec)Ordered By: aDvid Miramontes on 06-05-2024 Lymphocytes/100 WBC (Bld) 15.8 % Low 19-41 [facility] MCV (mean corpuscular volume ) determinationOrdered By: David Miramontes on 06-05-2024 MCV (RBC) [Entitic vol] 100.5 fL High 80-94 [facility] Mean corpuscular hemoglobin (MCH) determinationOrdered By: David Miramontes on 06-05-2024 MCH (RBC) [Entitic mass] 32.0 pg 27.0-32.0 [facility] Mean corpuscular hemoglobin concentration (MCHC) determinationOrdered By: David Miramontes on 06-05-2024 MCHC (RBC) [Mass/Vol] 31.8 g/dL Low 32-36 [facility] Mean platelet volume determi nationOrdered By: David Miramontes on 06-05-2024 Platelet mean volume (Bld) [Entitic vol] 11.3 fL 6.2-12.0 [facility] Monocyte percentageOrdered B y: David Miramontes on 06-05-2024 Monocytes/100 WBC (Bld) 8.9 % 0-10 [facility] Neutrophil percentageOrdered By: David Miramontes on 06-05-2024 Neutrophils/100 WBC (Bld) 71.6 % High 47-70 [facility] Nucleated red blood cell per centageOrdered By: David Miramontes on 06-05-2024 Nucleated RBC/100 WBC (Bld) [Ratio] 0 % 0-5 [facility] Platelet countOrdered By: Mayra Miramontes on 06-05-2024 Platelets (Bld) [#/Vol] 216 10*3/uL 150-450 [facility] Potassium (Unsp spec) [Mass/ Vol]Ordered By: David Miramontes on 06-05-2024 Potassium [Moles/Vol] 3.9 mmol/L 3.3-5.1 [facility] Potassium measurement (mass/ volume)Ordered By: David Miramontes on 06-05-2024 Potassium (Unsp spec) [Mass/Vol] 3.9 mmol/L 3.3-5.1 [facility] RBC Auto (Bld) [#/Vol]Ordere d By: David Miramontes on 06-05-2024 RBC (Bld) [#/Vol] 4.16 10*6/uL Low 4.6-6.2 [facility] Serum creatinine measurement (mass/volume)Ordered By: David Miramontes on 06-05-2024 Creatinine [Mass/Vol] 1.42 mg/dL High 0.70-1.20 [facility] Serum glucose measurement (m ass/volume)Ordered By: David Miramontes on 06-05-2024 Glucose [Mass/Vol] 85 mg/dL 70-99 [facility] Serum or plasma calcium siobhan urement (mass/volume)Ordered By: David Miramontes on 06-05-2024 Calcium [Mass/Vol] 9.0 mg/dL 7.6-11.0 [facility] Serum or plasma urea nitroge n measurement (mass/volume)Ordered By: David Miramontes on 06-05-2024 Urea nitrogen [Mass/Vol] 13 mg/dL 4-19 [facility] Sodium levelOrdered By: Frandy Miramontes on 06-05-2024 Sodium [Moles/Vol] 139 mmol/L 133-145 [facility] White blood cell (WBC) count Ordered By: David Miramontes on 06-05-2024 WBC (Bld) [#/Vol] 6.6 10*3/uL 4.4-11.0 [facility] Amorphous sediment detection in urine sediment by light microscopyOrdered By: David Miramontes on 05-30-2024 Amorphous sediment LM Ql (Urine sed) 1+ [facility] Ankle Brachial Indexon 05-30 Ankle Brachial Index [facility] [address] [place] [address] Ankle Brachial Index 05/30/24 0904 MR#: [id number] Acct: [id number] Name: GILMAKEL Angel Rep #: [id number] : 1940 84 From: Josiah Klein MD Attending Dr: Dr. David Miramontes MD Status: REG CLI Ordering Dr: David Miramontes MD Date: 05/30/24 Location: [facility] Sex: M C Admitted: Reason For [...] MD Date Dictated: 05/30/2404 Date Transcribed: 05/30/241542 Compensation Programs Manager: Signed Normal [facility] Arterial study reportOrdered By: Josiah Klein on 05-30-2024 Noninvasive arteriosclerosis study report [facility] [address] [place] [address] Ankle Brachial Index 05/30/24 0904 MR#: [id number] Acct: [id number] Name: KEL DILLARD Rep #:[id number] : 1940 84 From: Josiah Naranjo Attending Dr: Dr. David Miramontes MD Status: REG CLI Ordering Dr: David Miramontes MD Date: 05/30/24 Location: [facility] Sex: M C Admitted: Reason For [...] Dictated: 05/30/24 0904 Date Transcribed: 05/30/24 154 Compensation Programs Manager: Signed [facility] Work Phone: Bilirubin Test strip Ql (U)O rdered By: David Miramontes on 05-30-2024 Bilirubin Ql (U) Negative Negative [facility] Epithelial cells.squamous LM Ql (Urine sed)Ordered By: David Miramontes on 05-30-2024 Epithelial cells.squamous LM.HPF (Urine sed) [#/Area] 0 /[HPF] 0-5 [facility] Glucose Ql (U)Ordered By: Mayra Miramontes on 05-30-2024 Urine Glucose (UA) Normal mg/dl Normal [facility] Ketones Test strip Ql (U)Ord ered By: David Miramontes on 05-30-2024 Ketones Ql (U) Negative Negative [facility] Microscopic analysis of urin e for red blood cells (RBC)Ordered By: David Miramontes on 05-30-2024 Microscopic analysis of urine for red blood cells (RBC) > 100 SEEN /hpf 0-5 [facility] Urine RBC > 100 SEEN /hpf 0-5 [facility] Mucus LM Ql (Urine sed)Order ed By: David Miramontes on 05-30-2024 Mucus Ql (Urine sed) 0 SEEN /hpf [facility] Nitrite Test strip Ql (U)Ord ered By: David Miramontes on 05-30-2024 Nitrite Ql (U) Positive High Negative [facility] PSA, total screeningOrdered By: David Miramontes on 05-30-2024 Prostate Specific Antigen Screen 3.08 ng/mL 0.02-4.00 [facility] Comment on above: This test was [...] Protein Ql (U) 500 mg/dl High Negative [facility] Squamous epithelial cells de tection in urine sediment by light microscopyOrdered By: David Miramontes on 05-30-2024 Epithelial cells.squamous LM Ql (Urine sed) 0-5 SEEN /hpf 0-5 [facility] Urine blood detectionOrdered By: David Miramontes on 05-30-2024 Urine Occult Blood 250 /ul High Negative [facility] Urine clarityOrdered By: Lg Miramontes on 05-30-2024 Clarity (U) Cloudy Clear [facility] Urine color determinationOrd ered By: Daivd Miramontes on 05-30-2024 Color (U) Brown Yellow [facility] Urine cultureOrdered By: Lg Miramontes on 05-30-2024 Bacteria identified Cx Nom (U) Proteus mirabilis Abnormal [facility] Urine glucose detectionOrder ed By: David Miramontes on 05-30-2024 Glucose Ql (U) Normal mg/dl Normal [facility] Urine leukocyte esterase det ection by dipstickOrdered By: David Miramontes on 05-30-2024 Leukocyte esterase Test strip Ql (U) 500 /ul High Negative [facility] Urine pHOrdered By: Leo Miramontes on 05-30-2024 pH (U) 6.5 [pH] 5.0 - 8.0 [facility] Urine sediment bacteria coun t by microscopy (number/high power field)Ordered By: David Miramontes on 05-30-2024 Bacteria LM.HPF (Urine sed) [#/Area] 2 /[HPF] None Seen [facility] Urine specific gravity measu rementOrdered By: David Miramontes on 05-30-2024 Specific gravity (U) [Rel density] 1.015 1.002-1.030 [facility] Urine urobilinogen measureme ntOrdered By: David Miramontes on 05-30-2024 Urobilinogen Ql (U) 1 mg/dl High Normal [facility] Urobilinogen Ql (U)Ordered B y: David Miramontes on 05-30-2024 Urobilinogen (U) [Mass/Vol] 1 mg/dL High Normal [facility] White blood cell countOrdere d By: David Miramontes on 05-30-2024 Urine WBC 50-100 SEEN /hpf 0-5 [facility] White blood cell count 50-100 SEEN /hpf 0-5 [facility] Absolute lymphocyte countOrd ered By: David Miramontes on 05-22-2024 Lymphocytes Auto (Unsp spec) [#/Vol] 1.26 10*3/uL 0.83-4.51 [facility] Absolute neutrophil countOrd ered By: David Miramontes on 05-22-2024 Neutrophils (Bld) [#/Vol] 6.5 10*3/uL 2.0-7.7 [facility] Anion gap in Serum or Plasma Ordered By: David Miramontes on 05-22-2024 Anion gap [Moles/Vol] 13 mmol/L 5-15 [facility] Automated lymphocyte count a s percentage of total leukocytesOrdered By: Vickyingris Pinkamnae on 05-22-2024 Lymphocytes/100 WBC Auto (Unsp spec) 14.0 % Low 19-41 [facility] BUN/creatinine ratioOrdered By: David Joesphamnae on 05-22-2024 Urea nitrogen/Creatinine [Mass ratio] 7.8 mg/mg Low 10-20 [facility] Basophil percentageOrdered B y: Efwayneongbe Joesphamnae on 05-22-2024 Basophils/100 WBC (Bld) 0.4 % 0-1 [facility] Bilirubin, totalOrdered By: Mayrawaynefeliciaingris Pinkamnae on 05-22-2024 Bilirubin [Mass/Vol] 0.44 mg/dL 0.00-1.30 [facility] Carbon dioxide, total [Moles /volume] in Central venous bloodOrdered By: Frandyfeliciaingris Pinkamnae on 05-22-2024 CO2 [Moles/Vol] 24.8 mmol/L 21.0-32.0 [facility] Chloride assayOrdered By: Mayra fawadbe Joesphamnae on 05-22-2024 Chloride [Moles/Vol] 104 mmol/L 98-108 [facility] Eosinophil percentageOrdered By: Frandyongbe Oleamnae on 05-22-2024 Eosinophils/100 WBC (Bld) 1.0 % 0-5 [facility] Erythrocyte distribution wid th (RBC) [Ratio]Ordered By: Efewongbe Oleghe on 05-22-2024 Erythrocyte distribution width (RBC) [Entitic vol] 54.3 fL High 35.1-43.9 [facility] Erythrocyte distribution wid th ratioOrdered By: Efewongbe Oleghe on 05-22-2024 Erythrocyte distribution width (RBC) [Ratio] 15.1 % High 11.6-14.6 [facility] Erythrocyte distribution wid th standard deviationOrdered By: Efwayneongbe Joesphghe on 05-22-2024 Erythrocyte distribution width (RBC) [Ratio] 54.3 fl High 35.1-43.9 [facility] GFR/1.73 sq M.predicted eleazar g non-blacks MDRD (S/P/Bld) [Vol rate/Area]Ordered By: David Miramontes on 05-22-2024 Estimated GFR (MDRD) Non-Af Amer 33 Low >60 [facility] Comment on above: mL/min/1.73m2 CKD-EP I Creatinine Equation (2020) Glomerular filtration rate ( GFR) estimation/1.73 sq m using serum, plasma, or whole bOrdered By: David Miramontes on 05-22-2024 GFR/1.73 sq M.predicted among non-blacks MDRD (S/P/Bld) [Vol rate/Area] 33 mL/min/{1.73_m2} Low >60 [facility] Comment on above: mL/min/1.73m2 CKD-EP I Creatinine Equation (2020) Hematocrit Auto (Bld) [Volum e fraction]Ordered By: David Miramontes on 05-22-2024 Hematocrit (Bld) [Volume fraction] 40.5 % 40-54 [facility] Hemoglobin measurementOrdere d By: David Miramontes on 05-22-2024 Hemoglobin (Bld) [Mass/Vol] 12.9 g/dL Low 13.0-16.5 [facility] Immature granulocytes/100 WB C Auto (Bld)Ordered By: David Miramontes on 05-22-2024 Immature granulocytes/100 WBC (Bld) 0.300 % 0.0-0.9 [facility] Comment on above: IG% - Immature Granu locytes (promyelocytes, myelocytes and metamyelocytes) > 1% indicates that a LEFT SHIFT is Present. Laboratory - Chemistry and C hemistry - challengeOrdered By: David Miramontes on 05-22-2024 AST [Catalytic activity/Vol] 33 U/L <38 [facility] Lymphocytes Auto (Unsp spec) [#/Vol]Ordered By: David Miramontes on 05-22-2024 Lymphocytes (Bld) [#/Vol] 1.26 10*3/uL 0.83-4.51 [facility] Lymphocytes/100 WBC Auto (Un sp spec)Ordered By: David Miramontes on 05-22-2024 Lymphocytes/100 WBC (Bld) 14.0 % Low 19-41 [facility] MCV (mean corpuscular volume ) determinationOrdered By: David Miramontes on 05-22-2024 MCV (RBC) [Entitic vol] 99.3 fL High 80-94 [facility] Mean corpuscular hemoglobin (MCH) determinationOrdered By: David Miramontes on 05-22-2024 MCH (RBC) [Entitic mass] 31.6 pg 27.0-32.0 [facility] Mean corpuscular hemoglobin concentration (MCHC) determinationOrdered By: David Miramontes on 05-22-2024 MCHC (RBC) [Mass/Vol] 31.9 g/dL Low 32-36 [facility] Mean platelet volume determi nationOrdered By: David Miramontes on 05-22-2024 Platelet mean volume (Bld) [Entitic vol] 12.1 fL High 6.2-12.0 [facility] Monocyte percentageOrdered B y: David Miramontes on 05-22-2024 Monocytes/100 WBC (Bld) 11.8 % High 0-10 [facility] Neutrophil percentageOrdered By: David Miramontes on 05-22-2024 Neutrophils/100 WBC (Bld) 72.5 % High 47-70 [facility] Nucleated red blood cell per centageOrdered By: David Miramontes on 05-22-2024 Nucleated RBC/100 WBC (Bld) [Ratio] 0 % 0-5 [facility] Platelet countOrdered By: Mayra Miramontes on 05-22-2024 Platelets (Bld) [#/Vol] 179 10*3/uL 150-450 [facility] Potassium (Unsp spec) [Mass/ Vol]Ordered By: David Miramontes on 05-22-2024 Potassium [Moles/Vol] 3.3 mmol/L 3.3-5.1 [facility] Potassium measurement (mass/ volume)Ordered By: David Miramontes on 05-22-2024 Potassium (Unsp spec) [Mass/Vol] 3.3 mmol/L 3.3-5.1 [facility] RBC Auto (Bld) [#/Vol]Ordere d By: David Miramontes on 05-22-2024 RBC (Bld) [#/Vol] 4.08 10*6/uL Low 4.6-6.2 [facility] Serum creatinine measurement (mass/volume)Ordered By: David Miramontes on 05-22-2024 Creatinine [Mass/Vol] 1.94 mg/dL High 0.70-1.20 [facility] Serum globulin measurementOr dered By: David Miramontes on 05-22-2024 Globulin (S) [Mass/Vol] 3.2 g/dL 2.2-4.2 [facility] Serum glucose measurement (m ass/volume)Ordered By: David Miramontes on 05-22-2024 Glucose [Mass/Vol] 112 mg/dL High 70-99 [facility] Serum or plasma alanine grant otransferase (ALT) measurementOrdered By: David Miramontes on 05-22-2024 ALT [Catalytic activity/Vol] 8 U/L <47 [facility] Serum or plasma albumin siobhan urement (mass/volume)Ordered By: David Miramontes on 05-22-2024 Albumin [Mass/Vol] 3.5 g/dL 3.4-4.8 [facility] Serum or plasma albumin/glob ulin mass ratioOrdered By: David Miramontes 05-22-2024 Albumin/Globulin [Mass ratio] 1.1 {ratio} 0.9-2.4 [facility] Serum or plasma alkaline deven sphatase measurementOrdered By: David Miramontes on 05-22-2024 ALP [Catalytic activity/Vol] 71 U/L 40-129 [facility] Serum or plasma calcium siobhan urement (mass/volume)Ordered By: David Miramontes on 05-22-2024 Calcium [Mass/Vol] 8.8 mg/dL 7.6-11.0 [facility] Serum or plasma urea nitroge n measurement (mass/volume)Ordered By: David Miramontes on 05-22-2024 Urea nitrogen [Mass/Vol] 15 mg/dL 4-19 [facility] Sodium levelOrdered By: Frandy Miramontes on 05-22-2024 Sodium [Moles/Vol] 141 mmol/L 133-145 [facility] Total proteinOrdered By: Lg Miramontes on 05-22-2024 Protein [Mass/Vol] 6.7 g/dL 5.9-8.4 [facility] White blood cell (WBC) count Ordered By: David Miramontes on 05-22-2024 WBC (Bld) [#/Vol] 9.0 10*3/uL 4.4-11.0 [facility] Bilirubin Test strip Ql (U)O rdered By: David Miramontes on 04-17-2024 Bilirubin Ql (U) 1 mg/dL High Negative [facility] Comment on above: COLOR OF URINE MAY A FFECT DIPSTICK RESULTS. Glucose Ql (U)Ordered By: Mayra Miramontes on 04-17-2024 Urine Glucose (UA) Normal mg/dl Normal [facility] Ketones Test strip Ql (U)Ord ered By: David Miramontes on 04-17-2024 Ketones Ql (U) 5 mg/dl High Negative [facility] Nitrite Test strip Ql (U)Ord ered By: David Miramontes on 04-17-2024 Nitrite Ql (U) Negative Negative [facility] Protein Test strip Ql (U)Ord ered By: David Miramontes on 04-17-2024 Protein Ql (U) 100 mg/dl High Negative [facility] Urine blood detectionOrdered By: David Miramontes on 04-17-2024 Urine Occult Blood 250 /ul High Negative [facility] Urine clarityOrdered By: Lg Miramontes on 04-17-2024 Clarity (U) Turbid Clear [facility] Urine color determinationOrd ered By: David Miramontes on 04-17-2024 Color (U) Kristina Yellow [facility] Urine cultureOrdered By: Lg Miramontes on 04-17-2024 Bacteria identified Cx Nom (U) Proteus mirabilis Abnormal [facility] Urine glucose detectionOrder ed By: David Miramontes on 04-17-2024 Glucose Ql (U) Normal mg/dl Normal [facility] Urine leukocyte esterase det ection by dipstickOrdered By: David Miramontes on 04-17-2024 Leukocyte esterase Test strip Ql (U) 100 /ul High Negative [facility] Urine pHOrdered By: Leo Miramontes on 04-17-2024 pH (U) 5.0 [pH] 5.0 - 8.0 [facility] Urine specific gravity measu rementOrdered By: David Miramontes on 04-17-2024 Specific gravity (U) [Rel density] 1.025 1.002-1.030 [facility] Urine urobilinogen measureme ntOrdered By: David Miramontes on 04-17-2024 Urobilinogen Ql (U) Normal mg/dl Normal [facility] Urobilinogen Ql (U)Ordered B y: David Miramontes on 04-17-2024 Urine Urobilinogen Normal mg/dl Normal [facility] Absolute lymphocyte countOrd ered By: David Miramontes on 04-13-2024 Lymphocytes Auto (Unsp spec) [#/Vol] 0.98 10*3/uL 0.83-4.51 [facility] Absolute neutrophil countOrd ered By: David Mriamontes on 04-13-2024 Neutrophils (Bld) [#/Vol] 7.0 10*3/uL 2.0-7.7 [facility] Automated lymphocyte count a s percentage of total leukocytesOrdered By: David Miramontes on 04-13-2024 Lymphocytes/100 WBC Auto (Unsp spec) 11.0 % Low 19-41 [facility] Basophil percentageOrdered B y: David Miramontes on 04-13-2024 Basophils/100 WBC (Bld) 0.2 % 0-1 [facility] Eosinophil percentageOrdered By: David Miramontes on 04-13-2024 Eosinophils/100 WBC (Bld) 1.2 % 0-5 [facility] Erythrocyte distribution wid th (RBC) [Ratio]Ordered By: David Miramontes on 04-13-2024 Erythrocyte distribution width (RBC) [Entitic vol] 52.6 fL High 35.1-43.9 [facility] Erythrocyte distribution wid th ratioOrdered By: Vickyingris Pinkamnatereza on 04-13-2024 Erythrocyte distribution width (RBC) [Ratio] 14.6 % 11.6-14.6 [facility] Erythrocyte distribution wid th standard deviationOrdered By: fawadingris Pinkamnatereza on 04-13-2024 Erythrocyte distribution width (RBC) [Ratio] 52.6 fl High 35.1-43.9 [facility] Hematocrit Auto (Bld) [Volum e fraction]Ordered By: [facility] on 04-13-2024 Hematocrit (Bld) [Volume fraction] 47.5 % 40-54 [facility] Hemoglobin measurementOrdere d By: [facility] on 04-13-2024 Hemoglobin (Bld) [Mass/Vol] 15.1 g/dL 13.0-16.5 [facility] Immature granulocytes/100 WB C Auto (Bld)Ordered By: danay Miramontes on 04-13-2024 Immature granulocytes/100 WBC (Bld) 0.300 % 0.0-0.9 [facility] Comment on above: IG% - Immature Granu locytes (promyelocytes, myelocytes and metamyelocytes) > 1% indicates that a LEFT SHIFT is Present. Lymphocytes Auto (Unsp spec) [#/Vol]Ordered By: [facility] Miramontes on 04-13-2024 Lymphocytes (Bld) [#/Vol] 0.98 10*3/uL 0.83-4.51 [facility] Lymphocytes/100 WBC Auto (Un sp spec)Ordered By: danay Miramontes on 04-13-2024 Lymphocytes/100 WBC (Bld) 11.0 % Low 19-41 [facility] MCV (mean corpuscular volume ) determinationOrdered By: Mayrawaynefeliciaingris Pinkamnatereza on 04-13-2024 MCV (RBC) [Entitic vol] 98.3 fL High 80-94 [facility] Mean corpuscular hemoglobin (MCH) determinationOrdered By: danay Pinkamnatereza on 04-13-2024 MCH (RBC) [Entitic mass] 31.3 pg 27.0-32.0 [facility] Mean corpuscular hemoglobin concentration (MCHC) determinationOrdered By: David Miramontes on 04-13-2024 MCHC (RBC) [Mass/Vol] 31.8 g/dL Low 32-36 [facility] Mean platelet volume determi nationOrdered By: David Miramontes on 04-13-2024 Platelet mean volume (Bld) [Entitic vol] 12.2 fL High 6.2-12.0 [facility] Monocyte percentageOrdered B y: David Miramontes on 04-13-2024 Monocytes/100 WBC (Bld) 9.3 % 0-10 [facility] Neutrophil percentageOrdered By: David Miramontes on 04-13-2024 Neutrophils/100 WBC (Bld) 78.0 % High 47-70 [facility] Nucleated red blood cell per centageOrdered By: David Miramontes on 04-13-2024 Nucleated RBC/100 WBC (Bld) [Ratio] 0 % 0-5 [facility] Platelet countOrdered By: Mayra fawadingris Miramontes on 04-13-2024 Platelets (Bld) [#/Vol] 160 10*3/uL 150-450 [facility] RBC Auto (Bld) [#/Vol]Ordere d By: Mayrafawadingris Miramontes on 04-13-2024 RBC (Bld) [#/Vol] 4.83 10*6/uL 4.6-6.2 [facility] Serum or plasma uric acid me asurement (mass/volume)Ordered By: David Miramontes on 04-13-2024 Urate [Mass/Vol] 7.3 mg/dL High 3.5-7.2 [facility] Comment on above: The drugs N-Acetylcy steine and Metamizole may falsely depress this assay. White blood cell (WBC) count Ordered By: David Miramontes on 04-13-2024 WBC (Bld) [#/Vol] 8.9 10*3/uL 4.4-11.0 [facility] Bilirubin Test strip Ql (U)O rdered By: David Miramontes on 04-07-2024 Bilirubin Ql (U) Negative Negative [facility] Blood urea nitrogen (BUN)/cr eatinine ratioOrdered By: David Miramontes on 04-07-2024 Urea nitrogen/Creatinine [Mass ratio] 15.7 mg/mg 10-20 [facility] Carbon dioxide measurementOr dered By: David Miramontes on 04-07-2024 CO2 [Moles/Vol] 27.0 mmol/L 21.0-32.0 [facility] Chloride measurementOrdered By: David Miramontes on 04-07-2024 Chloride [Moles/Vol] 107 mmol/L 98-107 [facility] Estimated glomerular filtrat ion rate (GFR) AmericanOrdered By: David Miramontes on 04-07-2024 Estimated GFR (MDRD) Amer 69 mL/min >60 [facility] Comment on above: GFR Calc Glomerular filtration rate ( GFR) estimationOrdered By: David Miramontes on 04-07-2024 Estimated GFR (MDRD) Non-Af Amer 57 mL/min Low >60 [facility] Comment on above: Non- GFR Calc GFR/1.73 sq M.predicted among non-blacks MDRD (S/P/Bld) [Vol rate/Area] 57 mL/min/{1.73_m2} Low >60 [facility] Comment on above: Non- GFR Calc Glucose Ql (U)Ordered By: Mayra Miramontes on 04-07-2024 Urine Glucose (UA) Normal mg/dl Normal [facility] Glucose measurementOrdered B y: David Miramontes on 04-07-2024 Glucose [Mass/Vol] 80 mg/dL 74-106 [facility] Ketones Test strip Ql (U)Ord ered By: David Miramontes on 04-07-2024 Ketones Ql (U) Negative Negative [facility] Nitrite Test strip Ql (U)Ord ered By: David Miramontes on 04-07-2024 Nitrite Ql (U) Negative Negative [facility] Potassium measurementOrdered By: David Miramontes on 04-07-2024 Potassium [Moles/Vol] 3.8 mmol/L 3.5-5.1 [facility] Comment on above: Slight Hemolysis, Re sult may be falsely increased. Protein Test strip Ql (U)Ord ered By: David Miramontes on 04-07-2024 Protein Ql (U) 30 mg/dl High Negative [facility] Serum anion gap measurementO rdered By: David Miramontes on 04-07-2024 Anion gap [Moles/Vol] 9 mmol/L 5-15 [facility] Serum or plasma calcium siobhan urement (mass/volume)Ordered By: David Miramontes on 04-07-2024 Calcium [Mass/Vol] 8.9 mg/dL 8.5-10.1 [facility] Serum or plasma creatinine m easurement (mass/volume)Ordered By: David Miramontes on 04-07-2024 Creatinine [Mass/Vol] 1.27 mg/dL 0.70-1.30 [facility] Comment on above: The validity of the calculated GFR & GFRAA in patients over 70 years has not been determined. Clinical correlation is essential. Serum or plasma urea nitroge n measurement (mass/volume)Ordered By: David Miramontes on 04-07-2024 Urea nitrogen [Mass/Vol] 20 mg/dL High 7-18 [facility] Serum or plasma uric acid me asurement (mass/volume)Ordered By: David Miramontes on 04-07-2024 Urate [Mass/Vol] 7.7 mg/dL High 3.5-7.2 [facility] Comment on above: The drugs N-Acetylcy steine and Metamizole may falsely depress this assay. Sodium levelOrdered By: Frandy Miramontes on 04-07-2024 Sodium [Moles/Vol] 143 mmol/L 136-145 [facility] Urine blood detectionOrdered By: David Miramontes on 04-07-2024 Urine Occult Blood 250 /ul High Negative [facility] Urine clarityOrdered By: Lg Miramontes on 04-07-2024 Clarity (U) Clear Clear [facility] Urine color determinationOrd ered By: David Miramontes on 04-07-2024 Color (U) Straw Yellow [facility] Urine cultureOrdered By: Lg Miramontes on 04-07-2024 Bacteria identified Cx Nom (U) Negative Abnormal [facility] Urine glucose detectionOrder ed By: David Miramontes on 04-07-2024 Glucose Ql (U) Normal mg/dl Normal [facility] Urine leukocyte esterase det ection by dipstickOrdered By: David Miramontes on 04-07-2024 Leukocyte esterase Test strip Ql (U) 25 /ul High Negative [facility] Urine pHOrdered By: Leo Miramontes on 04-07-2024 pH (U) 6.5 [pH] 5.0 - 8.0 [facility] Urine specific gravity measu rementOrdered By: David Miramontes on 04-07-2024 Specific gravity (U) [Rel density] 1.005 1.002-1.030 [facility] Urine urobilinogen measureme ntOrdered By: David Miramontes on 04-07-2024 Urobilinogen Ql (U) Normal mg/dl Normal [facility] Urobilinogen Ql (U)Ordered B y: David Miramontes on 04-07-2024 Urine Urobilinogen Normal mg/dl Normal [facility] Absolute lymphocyte countOrd ered By: David Miramontes on 04-04-2024 Lymphocytes Auto (Unsp spec) [#/Vol] 0.82 10*3/uL Low 0.83-4.51 [facility] Absolute neutrophil countOrd ered By: David Miramontes on 04-04-2024 Neutrophils (Bld) [#/Vol] 11.6 10*3/uL High 2.0-7.7 [facility] Automated lymphocyte count a s percentage of total leukocytesOrdered By: David Miramontes on 04-04-2024 Lymphocytes/100 WBC Auto (Unsp spec) 5.9 % Low 19-41 [facility] Basophil percentageOrdered B y: David Miramontes on 04-04-2024 Basophils/100 WBC (Bld) 0.2 % 0-1 [facility] Blood urea nitrogen (BUN)/cr eatinine ratioOrdered By: David Miramontes on 04-04-2024 Urea nitrogen/Creatinine [Mass ratio] 9.6 mg/mg Low 10-20 [facility] Carbon dioxide measurementOr dered By: David Miramontes on 04-04-2024 CO2 [Moles/Vol] 26.0 mmol/L 21.0-32.0 [facility] Chloride measurementOrdered By: David Miramontes on 04-04-2024 Chloride [Moles/Vol] 105 mmol/L 98-107 [facility] Eosinophil percentageOrdered By: David Miramontes on 04-04-2024 Eosinophils/100 WBC (Bld) 0.0 % 0-5 [facility] Erythrocyte distribution wid th (RBC) [Ratio]Ordered By: David Miramontes on 04-04-2024 Erythrocyte distribution width (RBC) [Entitic vol] 55.2 fL High 35.1-43.9 [facility] Erythrocyte distribution wid th ratioOrdered By: David Miramontes on 04-04-2024 Erythrocyte distribution width (RBC) [Ratio] 15.2 % High 11.6-14.6 [facility] Erythrocyte distribution wid th standard deviationOrdered By: David Miramontes on 04-04-2024 Erythrocyte distribution width (RBC) [Ratio] 55.2 fl High 35.1-43.9 [facility] Estimated glomerular filtrat ion rate (GFR) AmericanOrdered By: David Miramontes on 04-04-2024 Estimated GFR (MDRD) Amer 47 mL/min Low >60 [facility] Comment on above: GFR Calc Glomerular filtration rate ( GFR) estimationOrdered By: David Miramontes on 04-04-2024 Estimated GFR (MDRD) Non-Af Amer 39 mL/min Low >60 [facility] Comment on above: Non- GFR Calc GFR/1.73 sq M.predicted among non-blacks MDRD (S/P/Bld) [Vol rate/Area] 39 mL/min/{1.73_m2} Low >60 [facility] Comment on above: Non- GFR Calc Glucose measurementOrdered B y: Vickyingris Miramontes on 04-04-2024 Glucose [Mass/Vol] 119 mg/dL High 74-106 [facility] Comment on above: Fasting Glucose resu lt from 100 to 125 mg/dL suggests IMPAIRED HOMEOSTASIS per A.D.A. criteria. Hematocrit Auto (Bld) [Volum e fraction]Ordered By: David Miramontes on 04-04-2024 Hematocrit (Bld) [Volume fraction] 49.2 % 40-54 [facility] Hemoglobin measurementOrdere d By: David Miramontes on 04-04-2024 Hemoglobin (Bld) [Mass/Vol] 15.9 g/dL 13.0-16.5 [facility] Immature granulocytes/100 WB C Auto (Bld)Ordered By: waynesmithdaleingris Miramontes on 04-04-2024 Immature granulocytes/100 WBC (Bld) 0.500 % 0.0-0.9 [facility] Comment on above: IG% - Immature Granu locytes (promyelocytes, myelocytes and metamyelocytes) > 1% indicates that a LEFT SHIFT is Present. Lymphocytes Auto (Unsp spec) [#/Vol]Ordered By: David Miramontes on 04-04-2024 Lymphocytes (Bld) [#/Vol] 0.82 10*3/uL Low 0.83-4.51 [facility] Lymphocytes/100 WBC Auto (Un sp spec)Ordered By: David Miramontes on 04-04-2024 Lymphocytes/100 WBC (Bld) 5.9 % Low 19-41 [facility] MCV (mean corpuscular volume ) determinationOrdered By: David Miramontes on 04-04-2024 MCV (RBC) [Entitic vol] 98.4 fL High 80-94 [facility] Mean corpuscular hemoglobin (MCH) determinationOrdered By: David Miramontes on 04-04-2024 MCH (RBC) [Entitic mass] 31.8 pg 27.0-32.0 [facility] Mean corpuscular hemoglobin concentration (MCHC) determinationOrdered By: David Miramontes on 04-04-2024 MCHC (RBC) [Mass/Vol] 32.3 g/dL 32-36 [facility] Mean platelet volume determi nationOrdered By: Mayrawaynefeliciaingris Miramontes on 04-04-2024 Platelet mean volume (Bld) [Entitic vol] 12.5 fL High 6.2-12.0 [facility] Monocyte percentageOrdered B y: David Miramontes on 04-04-2024 Monocytes/100 WBC (Bld) 9.9 % 0-10 [facility] Neutrophil percentageOrdered By: David Miramontes on 04-04-2024 Neutrophils/100 WBC (Bld) 83.5 % High 47-70 [facility] Nucleated red blood cell per centageOrdered By: David Miramontes on 04-04-2024 Nucleated RBC/100 WBC (Bld) [Ratio] 0 % 0-5 [facility] Platelet countOrdered By: Mayra waynecarleen Miramontes on 04-04-2024 Platelets (Bld) [#/Vol] 209 10*3/uL 150-450 [facility] Potassium measurementOrdered By: David Miramontes on 04-04-2024 Potassium [Moles/Vol] 4.2 mmol/L 3.5-5.1 [facility] Comment on above: Slight Hemolysis, Re sult may be falsely increased. RBC Auto (Bld) [#/Vol]Ordere d By: David Miramontes on 04-04-2024 RBC (Bld) [#/Vol] 5.00 10*6/uL 4.6-6.2 [facility] Serum anion gap measurementO rdered By: David Miramontes on 04-04-2024 Anion gap [Moles/Vol] 8 mmol/L 5-15 [facility] Serum or plasma calcium siobhan urement (mass/volume)Ordered By: David Miramontes on 04-04-2024 Calcium [Mass/Vol] 9.6 mg/dL 8.5-10.1 [facility] Serum or plasma creatinine m easurement (mass/volume)Ordered By: David Miramontes on 04-04-2024 Creatinine [Mass/Vol] 1.77 mg/dL High 0.70-1.30 [facility] Comment on above: The validity of the calculated GFR & GFRAA in patients over 70 years has not been determined. Clinical correlation is essential. Serum or plasma urea nitroge n measurement (mass/volume)Ordered By: David Miramontes on 04-04-2024 Urea nitrogen [Mass/Vol] 17 mg/dL 7-18 [facility] Sodium levelOrdered By: Frandy Miramontes on 04-04-2024 Sodium [Moles/Vol] 139 mmol/L 136-145 [facility] White blood cell (WBC) count Or[facility] on 04-04-2024 WBC (Bld) [#/Vol] 13.9 10*3/uL High 4.4-11.0 [facility] Absolute lymphocyte countOrd ered By: [facility] Joesphtereza on 04-06-2023 Lymphocytes Auto (Unsp spec) [#/Vol] 1.24 10*3/uL 0.83-4.51 [facility] Automated lymphocyte count a s percentage of total leukocytesOrdered By: [facility] on 04-06-2023 Lymphocytes/100 WBC Auto (Unsp spec) 18.7 % 19-41 [facility] Basophil percentageOrdered B y: David Miramontes on 04-06-2023 Basophils/100 WBC (Bld) 0.5 % 0-1 [facility] Chloride [Moles/Vol] 109 mmol/L 98-107 [facility] Eosinophils/100 WBC (Bld) 1.7 % 0-5 [facility] Glucose [Mass/Vol] 90 mg/dL 74-106 [facility] Hemoglobin (Bld) [Mass/Vol] 15.4 g/dL 13.0-16.5 [facility] Monocytes/100 WBC (Bld) 9.4 % 0-10 [facility] Neutrophils (Bld) [#/Vol] 4.6 10*3/uL 2.0-7.7 [facility] Neutrophils/100 WBC (Bld) 69.2 % 47-70 [facility] Potassium [Moles/Vol] 3.7 mmol/L 3.5-5.1 [facility] Sodium [Moles/Vol] 141 mmol/L 136-145 [facility] WBC (Bld) [#/Vol] 6.6 10*3/uL 4.4-11.0 [facility] Determination of erythrocyte mean corpuscular volume (MCV)Ordered By: David Miramontes on 04-06-2023 MCV (RBC) [Entitic vol] 98.2 fL 80-94 [facility] Erythrocyte distribution wid th ratioOrdered By: waynesmithdaleingris Miramontes on 04-06-2023 Erythrocyte distribution width (RBC) [Ratio] 14.4 % 11.6-14.6 [facility] Erythrocyte distribution wid th standard deviationOrdered By: Frandysmithdaleingris Miramontes on 04-06-2023 Erythrocyte distribution width (RBC) [Entitic vol] 51.7 fL 35.1-43.9 [facility] Hematocrit Auto (Bld) [Volum e fraction]Ordered By: David Miramontes on 04-06-2023 Hematocrit (Bld) [Volume fraction] 49.2 % 40-54 [facility] Immature granulocytes/100 WB C Auto (Bld)Ordered By: [facility] Pink[facility]reza on 04-06-2023 Immature granulocytes/100 WBC (Bld) 0.500 % 0.0-0.9 [facility] Comment on above: IG% - Immature Granu locytes (promyelocytes, myelocytes and metamyelocytes) > 1% indicates that a LEFT SHIFT is Present. Laboratory - Chemistry and C hemistry - challengeOrdered By: David Miramontes on 04-06-2023 CO2 [Moles/Vol] 27.0 mmol/L 21.0-32.0 [facility] Urea nitrogen/Creatinine [Mass ratio] 15.0 mg/mg 10-20 [facility] Laboratory - Hematology and Cell countsOrdered By: David Miramontes on 04-06-2023 MCH (RBC) [Entitic mass] 30.7 pg 27.0-32.0 [facility] MCHC (RBC) [Mass/Vol] 31.3 g/dL 32-36 [facility] Nucleated RBC/100 WBC (Bld) [Ratio] 0 % 0-5 [facility] Platelet mean volume (Bld) [Entitic vol] 11.5 fL 6.2-12.0 [facility] Platelets (Bld) [#/Vol] 189 10*3/uL 150-450 [facility] No Panel InformationOrdered By: David Miramontes on 04-06-2023 Estimated GFR (MDRD) Amer 85 mL/min >60 [facility] Comment on above: GFR Calc Estimated GFR (MDRD) Non-Af Amer 70 mL/min >60 [facility] Comment on above: Non- GFR Calc RBC Auto (Bld) [#/Vol]Ordere d By: David Miramontes on 04-06-2023 RBC (Bld) [#/Vol] 5.01 10*6/uL 4.6-6.2 [facility] Serum or plasma calcium siobhan urement (mass/volume)Ordered By: David Miramontes on 04-06-2023 Calcium [Mass/Vol] 9.1 mg/dL 8.5-10.1 [facility] Serum or plasma creatinine m easurement (mass/volume)Ordered By: David Miramontes on 04-06-2023 Creatinine [Mass/Vol] 1.07 mg/dL 0.70-1.30 [facility] Comment on above: The validity of the calculated GFR & GFRAA in patients over 70 years has not been determined. Clinical correlation is essential. Serum or plasma urea nitroge n measurement (mass/volume)Ordered By: David Miramontes on 04-06-2023 Urea nitrogen [Mass/Vol] 16 mg/dL 7-18 [facility] Thin prep Papanicolaou smear with manual screeningOrdered By: David Miramontes on 04-06-2023 Thin prep Papanicolaou smear with manual screening 5 5-15 [facility] Absolute lymphocyte countOrd ered By: David Miramontes on 12-30-2022 Lymphocytes Auto (Unsp spec) [#/Vol] 1.16 10*3/uL 0.83-4.51 [facility] Basophil percentageOrdered B y: David Miramontes on 12-30-2022 Basophils/100 WBC (Bld) 0.4 % 0-1 [facility] Chloride [Moles/Vol] 109 mmol/L 98-107 [facility] Eosinophils/100 WBC (Bld) 1.3 % 0-5 [facility] Glucose [Mass/Vol] 84 mg/dL 74-106 [facility] Neutrophils (Bld) [#/Vol] 5.4 10*3/uL 2.0-7.7 [facility] Neutrophils/100 WBC (Bld) 72.7 % 47-70 [facility] Potassium [Moles/Vol] 3.6 mmol/L 3.5-5.1 [facility] Sodium [Moles/Vol] 142 mmol/L 136-145 [facility] WBC (Bld) [#/Vol] 7.4 10*3/uL 4.4-11.0 [facility] Blood erythrocytes count (nu mber/volume)Ordered By: David Miramontes on 12-30-2022 RBC (Bld) [#/Vol] 4.15 10*6/uL 4.6-6.2 [facility] Blood hemoglobin measurement (mass/volume)Ordered By: David Miramontes on 12-30-2022 Hemoglobin (Bld) [Mass/Vol] 13.0 g/dL 13.0-16.5 [facility] Blood lymphocytes/100 leukoc ytesOrdered By: David Miramontes on 12-30-2022 Lymphocytes/100 WBC (Bld) 15.6 % 19-41 [facility] Blood monocytes/100 leukocyt esOrdered By: David Miramontes on 12-30-2022 Monocytes/100 WBC (Bld) 9.6 % 0-10 [facility] Blood platelet mean volumeOr dered By: David Miramontes on 12-30-2022 Platelet mean volume (Bld) [Entitic vol] 11.6 fL 6.2-12.0 [facility] Determination of erythrocyte mean corpuscular volume (MCV)Ordered By: David Miramontes on 12-30-2022 MCV (RBC) [Entitic vol] 99.5 fL 80-94 [facility] Hematocrit Auto (Bld) [Volum e fraction]Ordered By: David Miramontes on 12-30-2022 Hematocrit (Bld) [Volume fraction] 41.3 % 40-54 [facility] Laboratory - Chemistry and C hemistry - challengeOrdered By: David Miramontes on 12-30-2022 CO2 [Moles/Vol] 27.0 mmol/L 21.0-32.0 [facility] Urea nitrogen/Creatinine [Mass ratio] 11.6 mg/mg 10-20 [facility] Laboratory - Hematology and Cell countsOrdered By: David Miramontes on 12-30-2022 Erythrocyte distribution width (RBC) [Entitic vol] 51.5 fL 35.1-43.9 [facility] Erythrocyte distribution width (RBC) [Ratio] 14.2 % 11.6-14.6 [facility] Immature granulocytes/100 WBC (Bld) 0.400 % 0.0-0.9 [facility] Comment on above: IG% - Immature Granu locytes (promyelocytes, myelocytes and metamyelocytes) > 1% indicates that a LEFT SHIFT is Present. MCH (RBC) [Entitic mass] 31.3 pg 27.0-32.0 [facility] Nucleated RBC/100 WBC (Bld) [Ratio] 0 % 0-5 [facility] MCHC Auto (RBC) [Mass/Vol]Or dered By: David Miramontes on 12-30-2022 MCHC (RBC) [Mass/Vol] 31.5 g/dL 32-36 [facility] No Panel InformationOrdered By: David Miramontes on 12-30-2022 Estimated GFR (MDRD) Amer 108 mL/min >60 [facility] Comment on above: GFR Calc Estimated GFR (MDRD) Non-Af Amer 90 mL/min >60 [facility] Comment on above: Non- GFR Calc Platelets bldOrdered By: Lg Miramontes on 12-30-2022 Platelets (Bld) [#/Vol] 165 10*3/uL 150-450 [facility] Serum or plasma calcium siobhan urement (mass/volume)Ordered By: David Miramontes on 12-30-2022 Calcium [Mass/Vol] 8.3 mg/dL 8.5-10.1 [facility] Serum or plasma creatinine m easurement (mass/volume)Ordered By: David Miramontes on 12-30-2022 Creatinine [Mass/Vol] 0.86 mg/dL 0.70-1.30 [facility] Comment on above: The validity of the calculated GFR & GFRAA in patients over 70 years has not been determined. Clinical correlation is essential. Serum or plasma urea nitroge n measurement (mass/volume)Ordered By: David Miramontes on 12-30-2022 Urea nitrogen [Mass/Vol] 10 mg/dL 7-18 [facility] Thin prep Papanicolaou smear with manual screeningOrdered By: [facility] Joesphtereza on 12-30-2022 Thin prep Papanicolaou smear with manual screening 6 5-15 [facility] Absolute lymphocyte countOrd ered By: [facility] Pink[facility] on 09-29-2022 Lymphocytes Auto (Unsp spec) [#/Vol] 1.19 10*3/uL 0.83-4.51 [facility] Basophil percentageOrdered B y: David Miramontes on 09-29-2022 Basophils/100 WBC (Bld) 0.2 % 0-1 [facility] Chloride [Moles/Vol] 109 mmol/L 98-107 [facility] Eosinophils/100 WBC (Bld) 0.1 % 0-5 [facility] Glucose [Mass/Vol] 100 mg/dL 74-106 [facility] Comment on above: Fasting Glucose resu lt from 100 to 125 mg/dL suggests IMPAIRED HOMEOSTASIS per A.D.A. criteria. Neutrophils (Bld) [#/Vol] 8.4 10*3/uL 2.0-7.7 [facility] Neutrophils/100 WBC (Bld) 80.3 % 47-70 [facility] Potassium [Moles/Vol] 4.0 mmol/L 3.5-5.1 [facility] Sodium [Moles/Vol] 141 mmol/L 136-145 [facility] WBC (Bld) [#/Vol] 10.4 10*3/uL 4.4-11.0 [facility] Blood erythrocytes count (nu mber/volume)Ordered By: David Miramontes on 09-29-2022 RBC (Bld) [#/Vol] 4.62 10*6/uL 4.6-6.2 [facility] Blood hemoglobin measurement (mass/volume)Ordered By: David Miramontes on 09-29-2022 Hemoglobin (Bld) [Mass/Vol] 14.6 g/dL 13.0-16.5 [facility] Blood lymphocytes/100 leukoc ytesOrdered By: David Miramontes on 09-29-2022 Lymphocytes/100 WBC (Bld) 11.5 % 19-41 [facility] Blood monocytes/100 leukocyt esOrdered By: David Miramontes on 09-29-2022 Monocytes/100 WBC (Bld) 7.3 % 0-10 [facility] Blood platelet mean volumeOr dered By: David Miramontes on 09-29-2022 Platelet mean volume (Bld) [Entitic vol] 11.5 fL 6.2-12.0 [facility] Determination of erythrocyte mean corpuscular volume (MCV)Ordered By: David Miramontes on 09-29-2022 MCV (RBC) [Entitic vol] 99.4 fL 80-94 [facility] Hematocrit Auto (Bld) [Volum e fraction]Ordered By: David Miramontes on 09-29-2022 Hematocrit (Bld) [Volume fraction] 45.9 % 40-54 [facility] Laboratory - Chemistry and C hemistry - challengeOrdered By: David Miramontes on 09-29-2022 CO2 [Moles/Vol] 28.0 mmol/L 21.0-32.0 [facility] Urea nitrogen/Creatinine [Mass ratio] 13.8 mg/mg 10-20 [facility] Laboratory - Hematology and Cell countsOrdered By: David Miramontes on 09-29-2022 Erythrocyte distribution width (RBC) [Entitic vol] 51.7 fL 35.1-43.9 [facility] Erythrocyte distribution width (RBC) [Ratio] 14.2 % 11.6-14.6 [facility] Immature granulocytes/100 WBC (Bld) 0.600 % 0.0-0.9 [facility] Comment on above: IG% - Immature Granu locytes (promyelocytes, myelocytes and metamyelocytes) > 1% indicates that a LEFT SHIFT is Present. MCH (RBC) [Entitic mass] 31.6 pg 27.0-32.0 [facility] Nucleated RBC/100 WBC (Bld) [Ratio] 0 % 0-5 [facility] MCHC Auto (RBC) [Mass/Vol]Or dered By: David Miramontes on 09-29-2022 MCHC (RBC) [Mass/Vol] 31.8 g/dL 32-36 [facility] No Panel InformationOrdered By: David Miramontes on 09-29-2022 Estimated GFR (MDRD) Amer 98 mL/min >60 [facility] Comment on above: GFR Calc Estimated GFR (MDRD) Non-Af Amer 81 mL/min >60 [facility] Comment on above: Non- GFR Calc Platelets bldOrdered By: Lg Miramontes on 09-29-2022 Platelets (Bld) [#/Vol] 185 10*3/uL 150-450 [facility] Serum or plasma calcium siobhan urement (mass/volume)Ordered By: David Miramontes on 09-29-2022 Calcium [Mass/Vol] 8.9 mg/dL 8.5-10.1 [facility] Serum or plasma creatinine m easurement (mass/volume)Ordered By: David Miramontes on 09-29-2022 Creatinine [Mass/Vol] 0.94 mg/dL 0.70-1.30 [facility] Comment on above: The validity of the calculated GFR & GFRAA in patients over 70 years has not been determined. Clinical correlation is essential. Serum or plasma urea nitroge n measurement (mass/volume)Ordered By: David Miramontes on 09-29-2022 Urea nitrogen [Mass/Vol] 13 mg/dL 7-18 [facility] Thin prep Papanicolaou smear with manual screeningOrdered By: David Miramontes on 09-29-2022 Thin prep Papanicolaou smear with manual screening 4 5-15 [facility] Absolute lymphocyte countOrd ered By: David Miramontes on 06-29-2022 Lymphocytes Auto (Unsp spec) [#/Vol] 1.43 10*3/uL 0.83-4.51 [facility] Basophil percentageOrdered B y: David Miramontes on 06-29-2022 Basophils/100 WBC (Bld) 0.6 % 0-1 [facility] Chloride [Moles/Vol] 107 mmol/L 98-107 [facility] Eosinophils/100 WBC (Bld) 1.5 % 0-5 [facility] Glucose [Mass/Vol] 85 mg/dL 74-106 [facility] Neutrophils (Bld) [#/Vol] 4.4 10*3/uL 2.0-7.7 [facility] Neutrophils/100 WBC (Bld) 65.4 % 47-70 [facility] Potassium [Moles/Vol] 3.6 mmol/L 3.5-5.1 [facility] Sodium [Moles/Vol] 140 mmol/L 136-145 [facility] WBC (Bld) [#/Vol] 6.7 10*3/uL 4.4-11.0 [facility] Blood erythrocytes count (nu mber/volume)Ordered By: David Miramontes on 06-29-2022 RBC (Bld) [#/Vol] 4.55 10*6/uL 4.6-6.2 [facility] Blood hemoglobin measurement (mass/volume)Ordered By: David Miramontes on 06-29-2022 Hemoglobin (Bld) [Mass/Vol] 14.5 g/dL 13.0-16.5 [facility] Blood lymphocytes/100 leukoc ytesOrdered By: David Miramontes on 06-29-2022 Lymphocytes/100 WBC (Bld) 21.5 % 19-41 [facility] Blood monocytes/100 leukocyt esOrdered By: David Miramontes on 06-29-2022 Monocytes/100 WBC (Bld) 10.7 % 0-10 [facility] Blood platelet mean volumeOr dered By: David Miramontes on 06-29-2022 Platelet mean volume (Bld) [Entitic vol] 11.2 fL 6.2-12.0 [facility] Determination of erythrocyte mean corpuscular volume (MCV)Ordered By: David Miramontes on 06-29-2022 MCV (RBC) [Entitic vol] 98.9 fL 80-94 [facility] Hematocrit Auto (Bld) [Volum e fraction]Ordered By: David Miramontes on 06-29-2022 Hematocrit (Bld) [Volume fraction] 45.0 % 40-54 [facility] Laboratory - Chemistry and C hemistry - challengeOrdered By: danay Miramontes on 06-29-2022 CO2 [Moles/Vol] 30.0 mmol/L 21.0-32.0 [facility] Urea nitrogen/Creatinine [Mass ratio] 13.6 mg/mg 10-20 [facility] Laboratory - Hematology and Cell countsOrdered By: David Miramontes on 06-29-2022 Erythrocyte distribution width (RBC) [Entitic vol] 51.6 fL 35.1-43.9 [facility] Erythrocyte distribution width (RBC) [Ratio] 14.3 % 11.6-14.6 [facility] Immature granulocytes/100 WBC (Bld) 0.300 % 0.0-0.9 [facility] Comment on above: IG% - Immature Granu locytes (promyelocytes, myelocytes and metamyelocytes) > 1% indicates that a LEFT SHIFT is Present. MCH (RBC) [Entitic mass] 31.9 pg 27.0-32.0 [facility] Nucleated RBC/100 WBC (Bld) [Ratio] 0 % 0-5 [facility] MCHC Auto (RBC) [Mass/Vol]Or dered By: David Miramontes on 06-29-2022 MCHC (RBC) [Mass/Vol] 32.2 g/dL 32-36 [facility] No Panel InformationOrdered By: David Miramontes on 06-29-2022 Estimated GFR (MDRD) Amer 89 mL/min >60 [facility] Comment on above: GFR Calc Estimated GFR (MDRD) Non-Af Amer 73 mL/min >60 [facility] Comment on above: Non- GFR Calc Platelets bldOrdered By: Lg rupinderingris Miramontes on 06-29-2022 Platelets (Bld) [#/Vol] 161 10*3/uL 150-450 [facility] Serum or plasma calcium siobhan urement (mass/volume)Ordered By: David Miramontes on 06-29-2022 Calcium [Mass/Vol] 8.7 mg/dL 8.5-10.1 [facility] Serum or plasma creatinine m easurement (mass/volume)Ordered By: David Miramontes on 06-29-2022 Creatinine [Mass/Vol] 1.03 mg/dL 0.70-1.30 [facility] Comment on above: The validity of the calculated GFR & GFRAA in patients over 70 years has not been determined. Clinical correlation is essential. Serum or plasma urea nitroge n measurement (mass/volume)Ordered By: David Miramontes on 06-29-2022 Urea nitrogen [Mass/Vol] 14 mg/dL 7-18 [facility] Thin prep Papanicolaou smear with manual screeningOrdered By: David Miramontes on 06-29-2022 Thin prep Papanicolaou smear with manual screening 3 5-15 [facility] Absolute lymphocyte countOrd ered By: David Miramontes on 04-01-2022 Lymphocytes Auto (Unsp spec) [#/Vol] 1.25 10*3/uL 0.83-4.51 [facility] Basophil percentageOrdered B y: David Miramontes on 04-01-2022 Basophils/100 WBC (Bld) 0.4 % 0-1 [facility] Chloride [Moles/Vol] 108 mmol/L 98-107 [facility] Eosinophils/100 WBC (Bld) 1.5 % 0-5 [facility] Glucose [Mass/Vol] 106 mg/dL 74-106 [facility] Comment on above: Fasting Glucose resu lt from 100 to 125 mg/dL suggests IMPAIRED HOMEOSTASIS per A.D.A. criteria. Neutrophils (Bld) [#/Vol] 4.7 10*3/uL 2.0-7.7 [facility] Neutrophils/100 WBC (Bld) 69.1 % 47-70 [facility] Potassium [Moles/Vol] 3.6 mmol/L 3.5-5.1 [facility] Sodium [Moles/Vol] 143 mmol/L 136-145 [facility] WBC (Bld) [#/Vol] 6.8 10*3/uL 4.4-11.0 [facility] Blood erythrocytes count (nu mber/volume)Ordered By: David Miramontes on 04-01-2022 RBC (Bld) [#/Vol] 4.69 10*6/uL 4.6-6.2 [facility] Blood hemoglobin measurement (mass/volume)Ordered By: David Miramontes on 04-01-2022 Hemoglobin (Bld) [Mass/Vol] 14.8 g/dL 13.0-16.5 [facility] Blood lymphocytes/100 leukoc ytesOrdered By: David Miramontes on 04-01-2022 Lymphocytes/100 WBC (Bld) 18.5 % 19-41 [facility] Blood monocytes/100 leukocyt esOrdered By: David Miramontes on 04-01-2022 Monocytes/100 WBC (Bld) 10.2 % 0-10 [facility] Blood platelet mean volumeOr dered By: David Miramontes on 04-01-2022 Platelet mean volume (Bld) [Entitic vol] 11.5 fL 6.2-12.0 [facility] Determination of erythrocyte mean corpuscular volume (MCV)Ordered By: David Miramontes on 04-01-2022 MCV (RBC) [Entitic vol] 97.0 fL 80-94 [facility] Hematocrit Auto (Bld) [Volum e fraction]Ordered By: David Miramontes on 04-01-2022 Hematocrit (Bld) [Volume fraction] 45.5 % 40-54 [facility] Laboratory - Chemistry and C hemistry - challengeOrdered By: David Miramontes on 04-01-2022 CO2 [Moles/Vol] 29.0 mmol/L 21.0-32.0 [facility] Urea nitrogen/Creatinine [Mass ratio] 13.0 mg/mg 10-20 [facility] Laboratory - Hematology and Cell countsOrdered By: David Miramontes on 04-01-2022 Erythrocyte distribution width (RBC) [Entitic vol] 51.1 fL 35.1-43.9 [facility] Erythrocyte distribution width (RBC) [Ratio] 14.4 % 11.6-14.6 [facility] Immature granulocytes/100 WBC (Bld) 0.300 % 0.0-0.9 [facility] Comment on above: IG% - Immature Granu locytes (promyelocytes, myelocytes and metamyelocytes) > 1% indicates that a LEFT SHIFT is Present. MCH (RBC) [Entitic mass] 31.6 pg 27.0-32.0 [facility] Nucleated RBC/100 WBC (Bld) [Ratio] 0 % 0-5 [facility] MCHC Auto (RBC) [Mass/Vol]Or dered By: David Miramontes on 04-01-2022 MCHC (RBC) [Mass/Vol] 32.5 g/dL 32-36 [facility] No Panel InformationOrdered By: David Miramontes on 04-01-2022 Estimated GFR (MDRD) Amer 92 mL/min >60 [facility] Comment on above: GFR Calc Estimated GFR (MDRD) Non-Af Amer 76 mL/min >60 [facility] Comment on above: Non- GFR Calc Platelets bldOrdered By: Lg Miramontes on 04-01-2022 Platelets (Bld) [#/Vol] 167 10*3/uL 150-450 [facility] Serum or plasma calcium siobhan urement (mass/volume)Ordered By: David Miramontes on 04-01-2022 Calcium [Mass/Vol] 9.1 mg/dL 8.5-10.1 [facility] Serum or plasma creatinine m easurement (mass/volume)Ordered By: David Miramontes on 04-01-2022 Creatinine [Mass/Vol] 1.00 mg/dL 0.70-1.30 [facility] Comment on above: The validity of the calculated GFR & GFRAA in patients over 70 years has not been determined. Clinical correlation is essential. Serum or plasma urea nitroge n measurement (mass/volume)Ordered By: David Miramontes on 04-01-2022 Urea nitrogen [Mass/Vol] 13 mg/dL 7-18 [facility] Thin prep Papanicolaou smear with manual screeningOrdered By: David Miramontes on 04-01-2022 Thin prep Papanicolaou smear with manual screening 6 5-15 [facility] Absolute lymphocyte countOrd ered By: Jhonny Tomas on 01-07-2022 Lymphocytes Auto (Unsp spec) [#/Vol] 1.54 10*3/uL 0.83-4.51 [facility] Basophil percentageOrdered B y: Jhonny Tomas on 01-07-2022 Basophils/100 WBC (Bld) 0.3 % 0-1 [facility] Chloride [Moles/Vol] 104 mmol/L 98-107 [facility] Eosinophils/100 WBC (Bld) 1.9 % 0-5 [facility] Glucose [Mass/Vol] 89 mg/dL 74-106 [facility] Neutrophils (Bld) [#/Vol] 4.8 10*3/uL 2.0-7.7 [facility] Neutrophils/100 WBC (Bld) 66.5 % 47-70 [facility] Potassium [Moles/Vol] 4.1 mmol/L 3.5-5.1 [facility] Sodium [Moles/Vol] 141 mmol/L 136-145 [facility] WBC (Bld) [#/Vol] 7.2 10*3/uL 4.4-11.0 [facility] Blood erythrocytes count (nu mber/volume)Ordered By: Jhonny Tomas on 01-07-2022 RBC (Bld) [#/Vol] 4.80 10*6/uL 4.6-6.2 [facility] Blood hemoglobin measurement (mass/volume)Ordered By: Jhonny Tomas on 01-07-2022 Hemoglobin (Bld) [Mass/Vol] 15.2 g/dL 13.0-16.5 [facility] Blood lymphocytes/100 leukoc ytesOrdered By: Jhonny Tomas on 01-07-2022 Lymphocytes/100 WBC (Bld) 21.3 % 19-41 [facility] Blood monocytes/100 leukocyt esOrdered By: Jhonny Tomas on 01-07-2022 Monocytes/100 WBC (Bld) 9.7 % 0-10 [facility] Blood platelet mean volumeOr dered By: Jhonny Tomas on 01-07-2022 Platelet mean volume (Bld) [Entitic vol] 11.2 fL 6.2-12.0 [facility] Determination of erythrocyte mean corpuscular volume (MCV)Ordered By: Jhonny Tomas on 01-07-2022 MCV (RBC) [Entitic vol] 97.3 fL 80-94 [facility] Hematocrit Auto (Bld) [Volum e fraction]Ordered By: Jhonny Tomas on 01-07-2022 Hematocrit (Bld) [Volume fraction] 46.7 % 40-54 [facility] Laboratory - Chemistry and C hemistry - challengeOrdered By: Jhonny Tomas on 01-07-2022 CO2 [Moles/Vol] 29.0 mmol/L 21.0-32.0 [facility] Urea nitrogen/Creatinine [Mass ratio] 11.4 mg/mg 10-20 [facility] Laboratory - Hematology and Cell countsOrdered By: Jhonny Tomas on 01-07-2022 Erythrocyte distribution width (RBC) [Entitic vol] 52.0 fL 35.1-43.9 [facility] Erythrocyte distribution width (RBC) [Ratio] 14.5 % 11.6-14.6 [facility] Immature granulocytes/100 WBC (Bld) 0.300 % 0.0-0.9 [facility] Comment on above: IG% - Immature Granu locytes (promyelocytes, myelocytes and metamyelocytes) > 1% indicates that a LEFT SHIFT is Present. MCH (RBC) [Entitic mass] 31.7 pg 27.0-32.0 [facility] Nucleated RBC/100 WBC (Bld) [Ratio] 0 % 0-5 [facility] MCHC Auto (RBC) [Mass/Vol]Or dered By: Jhonny Tomas on 01-07-2022 MCHC (RBC) [Mass/Vol] 32.5 g/dL 32-36 [facility] No Panel InformationOrdered By: Jhonny Tomas on 01-07-2022 Estimated GFR (MDRD) Amer 79 mL/min >60 [facility] Comment on above: GFR Calc Estimated GFR (MDRD) Non-Af Amer 65 mL/min >60 [facility] Comment on above: Non- GFR Calc Platelets bldOrdered By: Joao Tomas on 01-07-2022 Platelets (Bld) [#/Vol] 192 10*3/uL 150-450 [facility] Serum or plasma calcium siobhan urement (mass/volume)Ordered By: Jhonny Tomas on 01-07-2022 Calcium [Mass/Vol] 8.8 mg/dL 8.5-10.1 [facility] Serum or plasma creatinine m easurement (mass/volume)Ordered By: Jhonny Tomas on 01-07-2022 Creatinine [Mass/Vol] 1.14 mg/dL 0.70-1.30 [facility] Comment on above: The validity of the calculated GFR & GFRAA in patients over 70 years has not been determined. Clinical correlation is essential. Serum or plasma urea nitroge n measurement (mass/volume)Ordered By: Jhonny Tomas on 01-07-2022 Urea nitrogen [Mass/Vol] 13 mg/dL 7-18 [facility] Thin prep Papanicolaou smear with manual screeningOrdered By: Jhonny Tomas on 01-07-2022 Thin prep Papanicolaou smear with manual screening 8 5-15 [facility] Absolute lymphocyte countOrd ered By: Jhonny Tomas on 12-24-2021 Lymphocytes Auto (Unsp spec) [#/Vol] 1.60 10*3/uL 0.83-4.51 [facility] Basophil percentageOrdered B y: Jhonny Tomas on 12-24-2021 Basophils/100 WBC (Bld) 0.4 % 0-1 [facility] Chloride [Moles/Vol] 109 mmol/L 98-107 [facility] Eosinophils/100 WBC (Bld) 1.5 % 0-5 [facility] Glucose [Mass/Vol] 93 mg/dL 74-106 [facility] Neutrophils (Bld) [#/Vol] 4.8 10*3/uL 2.0-7.7 [facility] Neutrophils/100 WBC (Bld) 66.8 % 47-70 [facility] Potassium [Moles/Vol] 4.0 mmol/L 3.5-5.1 [facility] Comment on above: Slight Hemolysis, Re sult may be falsely increased. Sodium [Moles/Vol] 140 mmol/L 136-145 [facility] WBC (Bld) [#/Vol] 7.2 10*3/uL 4.4-11.0 [facility] Blood erythrocytes count (nu mber/volume)Ordered By: Jhonny Tomas on 12-24-2021 RBC (Bld) [#/Vol] 4.49 10*6/uL 4.6-6.2 [facility] Blood hemoglobin measurement (mass/volume)Ordered By: Jhonny Tomas on 12-24-2021 Hemoglobin (Bld) [Mass/Vol] 14.5 g/dL 13.0-16.5 [facility] Blood lymphocytes/100 leukoc ytesOrdered By: Jhonny Tomas on 12-24-2021 Lymphocytes/100 WBC (Bld) 22.2 % 19-41 [facility] Blood monocytes/100 leukocyt esOrdered By: Jhonny Tomas on 12-24-2021 Monocytes/100 WBC (Bld) 9.0 % 0-10 [facility] Blood platelet mean volumeOr dered By: Jhonny Tomas on 12-24-2021 Platelet mean volume (Bld) [Entitic vol] 11.2 fL 6.2-12.0 [facility] Determination of erythrocyte mean corpuscular volume (MCV)Ordered By: Jhonny Tomas on 12-24-2021 MCV (RBC) [Entitic vol] 97.1 fL 80-94 [facility] Hematocrit Auto (Bld) [Volum e fraction]Ordered By: Jhonny Tomas on 12-24-2021 Hematocrit (Bld) [Volume fraction] 43.6 % 40-54 [facility] Laboratory - Chemistry and C hemistry - challengeOrdered By: Jhonny Tomas on 12-24-2021 CO2 [Moles/Vol] 26.0 mmol/L 21.0-32.0 [facility] Urea nitrogen/Creatinine [Mass ratio] 14.7 mg/mg 10-20 [facility] Laboratory - Hematology and Cell countsOrdered By: Jhonny Tomas on 12-24-2021 Erythrocyte distribution width (RBC) [Entitic vol] 51.8 fL 35.1-43.9 [facility] Erythrocyte distribution width (RBC) [Ratio] 14.4 % 11.6-14.6 [facility] Immature granulocytes/100 WBC (Bld) 0.100 % 0.0-0.9 [facility] Comment on above: IG% - Immature Granu locytes (promyelocytes, myelocytes and metamyelocytes) > 1% indicates that a LEFT SHIFT is Present. MCH (RBC) [Entitic mass] 32.3 pg 27.0-32.0 [facility] Nucleated RBC/100 WBC (Bld) [Ratio] 0 % 0-5 [facility] MCHC Auto (RBC) [Mass/Vol]Or dered By: Jhonny Tomas on 12-24-2021 MCHC (RBC) [Mass/Vol] 33.3 g/dL 32-36 [facility] No Panel InformationOrdered By: Jhonny Tomas on 12-24-2021 Estimated GFR (MDRD) Amer 90 mL/min >60 [facility] Comment on above: GFR Calc Estimated GFR (MDRD) Non-Af Amer 74 mL/min >60 [facility] Comment on above: Non- GFR Calc Platelets bldOrdered By: Jaoo Tomas on 12-24-2021 Platelets (Bld) [#/Vol] 166 10*3/uL 150-450 [facility] Serum or plasma calcium siobhan urement (mass/volume)Ordered By: Jhonny Tomas on 12-24-2021 Calcium [Mass/Vol] 8.8 mg/dL 8.5-10.1 [facility] Serum or plasma creatinine m easurement (mass/volume)Ordered By: Jhonny Tomas on 12-24-2021 Creatinine [Mass/Vol] 1.02 mg/dL 0.70-1.30 [facility] Comment on above: The validity of the calculated GFR & GFRAA in patients over 70 years has not been determined. Clinical correlation is essential. Serum or plasma urea nitroge n measurement (mass/volume)Ordered By: Jhonny Tomas on 12-24-2021 Urea nitrogen [Mass/Vol] 15 mg/dL 7-18 [facility] Thin prep Papanicolaou smear with manual screeningOrdered By: Jhonny Tomas on 12-24-2021 Thin prep Papanicolaou smear with manual screening 5 5-15 [facility] Absolute lymphocyte counton 12-10-2021 Lymphocytes Auto (Unsp spec) [#/Vol] 1.33 10*3/uL 0.83-4.51 [facility] Work Phone: [phone] Basophil percentageon 2021 Basophils/100 WBC (Bld) 0.4 % 0-1 [facility] Work Phone: [phone] Chloride [Moles/Vol] 105 mmol/L 98-107 [facility] Work Phone: [phone] Eosinophils/100 WBC (Bld) 1.3 % 0-5 [facility] Work Phone: [phone] Glucose [Mass/Vol] 103 mg/dL 74-106 [facility] Work Phone: Comment on above: Fasting Glucose resu lt from 100 to 125 mg/dL suggests IMPAIRED HOMEOSTASIS per A.D.A. criteria. Neutrophils (Bld) [#/Vol] 4.8 10*3/uL 2.0-7.7 [facility] Work Phone: Neutrophils/100 WBC (Bld) 69.1 % 47-70 [facility] Work Phone: Potassium [Moles/Vol] 3.7 mmol/L 3.5-5.1 [facility] Work Phone: Sodium [Moles/Vol] 141 mmol/L 136-145 [facility] Work Phone: WBC (Bld) [#/Vol] 7.0 10*3/uL 4.4-11.0 [facility] Work Phone: Blood erythrocytes count (nu mber/volume)on 12-10-2021 RBC (Bld) [#/Vol] 4.88 10*6/uL 4.6-6.2 [facility] Work Phone: Blood hemoglobin measurement (mass/volume)on 12-10-2021 Hemoglobin (Bld) [Mass/Vol] 15.5 g/dL 13.0-16.5 [facility] Work Phone: Blood lymphocytes/100 leukoc yteson 12-10-2021 Lymphocytes/100 WBC (Bld) 19.1 % 19-41 [facility] Work Phone: Blood monocytes/100 leukocyt eson 12-10-2021 Monocytes/100 WBC (Bld) 9.8 % 0-10 [facility] Work Phone: Blood platelet mean volumeon 12-10-2021 Platelet mean volume (Bld) [Entitic vol] 10.8 fL 6.2-12.0 [facility] Work Phone: Determination of erythrocyte mean corpuscular volume (MCV)on 12-10-2021 MCV (RBC) [Entitic vol] 95.9 fL 80-94 [facility] Work Phone: Hematocrit Auto (Bld) [Volum e fraction]on 12-10-2021 Hematocrit (Bld) [Volume fraction] 46.8 % 40-54 [facility] Work Phone: Laboratory - Chemistry and C hemistry - challengeon 12-10-2021 CO2 [Moles/Vol] 30.0 mmol/L 21.0-32.0 [facility] Work Phone: Urea nitrogen/Creatinine [Mass ratio] 11.3 mg/mg 10-20 [facility] Work Phone: Laboratory - Hematology and Cell countson 12-10-2021 Erythrocyte distribution width (RBC) [Entitic vol] 51.1 fL 35.1-43.9 [facility] Work Phone: Erythrocyte distribution width (RBC) [Ratio] 14.4 % 11.6-14.6 [facility] Work Phone: Immature granulocytes/100 WBC (Bld) 0.300 % 0.0-0.9 [facility] Work Phone: Comment on above: IG% - Immature Granu locytes (promyelocytes, myelocytes and metamyelocytes) > 1% indicates that a LEFT SHIFT is Present. MCH (RBC) [Entitic mass] 31.8 pg 27.0-32.0 [facility] Work Phone: Nucleated RBC/100 WBC (Bld) [Ratio] 0 % 0-5 [facility] Work Phone: MCHC Auto (RBC) [Mass/Vol]on 12-10-2021 MCHC (RBC) [Mass/Vol] 33.1 g/dL 32-36 [facility] Work Phone: No Panel Informationon 12-10 Estimated GFR (MDRD) Amer 86 mL/min >60 [facility] Work Phone: Comment on above: GFR Calc Estimated GFR (MDRD) Non-Af Amer 71 mL/min >60 [facility] Work Phone: Comment on above: Non- GFR Calc Platelets bldon 12-10-2021 Platelets (Bld) [#/Vol] 176 10*3/uL 150-450 [facility] Work Phone: Serum or plasma calcium siobhan urement (mass/volume)on 12-10-2021 Calcium [Mass/Vol] 8.9 mg/dL 8.5-10.1 [facility] Work Phone: Serum or plasma creatinine m easurement (mass/volume)on 12-10-2021 Creatinine [Mass/Vol] 1.06 mg/dL 0.70-1.30 [facility] Work Phone: Comment on above: The validity of the calculated GFR & GFRAA in patients over 70 years has not been determined. Clinical correlation is essential. Serum or plasma urea nitroge n measurement (mass/volume)on 12-10-2021 Urea nitrogen [Mass/Vol] 12 mg/dL 7-18 [facility] Work Phone: Thin prep Papanicolaou smear with manual screeningon 12-10-2021 Thin prep Papanicolaou smear with manual screening 6 5-15 [facility] Work Phone: CNPNon 12-09-2021 CNPN Telephone (INTWS) GILMAKEL SIMONS ([id number]) 1940 M Date Time Provider Department 12/09/21 NICOLAS CARDENAS During your visit today, we recorded the following information about you: Ludivina Cárdenas LPN 12/09/2021 3:11 PM Signed Patient son Jhonny calling said PCP completed expert evaluation form on 09/29 for guardianship and chemical checker said question number 11 needs revised. Son Jhonny said 2 weeks after form was done father had fall and was taken to [facility] then sent to [facility] for rehab. Now father is in [...] stay and he is now under the ID attending physician's care. It is more appropriate for the ID attending physician to do another form. More statements need corrected/updated Preethi Delgadillo RN 12/11/2021 2:59 PM Signed Son (Jhonny) calls in and provider message reviewed. Son asking if form brought in can be picked back up in Medical Records. Please contact Jhonny at [phone]. RENETTA Rubio LPN 12/11/2021 3:41 PM Signed [...] by FLORA WOOD LPN on 12/11/21 Normal [facility] Absolute lymphocyte counton 11-26-2021 Lymphocytes Auto (Unsp spec) [#/Vol] 1.47 10*3/uL 0.83-4.51 [facility] Work Phone: Basophil percentageon 2021 Basophils/100 WBC (Bld) 0.6 % 0-1 [facility] Work Phone: Chloride [Moles/Vol] 107 mmol/L 98-107 [facility] Work Phone: [phone] Eosinophils/100 WBC (Bld) 1.1 % 0-5 [facility] Work Phone: [phone] Glucose [Mass/Vol] 92 mg/dL 74-106 [facility] Work Phone: [phone] Neutrophils (Bld) [#/Vol] 6.4 10*3/uL 2.0-7.7 [facility] Work Phone: [phone] Neutrophils/100 WBC (Bld) 71.7 % 47-70 [facility] Work Phone: [phone] Potassium [Moles/Vol] 4.0 mmol/L 3.5-5.1 [facility] Work Phone: Comment on above: Slight Hemolysis, Re sult may be falsely increased. Sodium [Moles/Vol] 141 mmol/L 136-145 [facility] Work Phone: WBC (Bld) [#/Vol] 9.0 10*3/uL 4.4-11.0 [facility] Work Phone: [phone] Blood erythrocytes count (nu mber/volume)on 11-26-2021 RBC (Bld) [#/Vol] 4.81 10*6/uL 4.6-6.2 [facility] Work Phone: [phone] Blood hemoglobin measurement (mass/volume)on 11-26-2021 Hemoglobin (Bld) [Mass/Vol] 15.3 g/dL 13.0-16.5 [facility] Work Phone: Blood lymphocytes/100 leukoc yteson 11-26-2021 Lymphocytes/100 WBC (Bld) 16.4 % 19-41 [facility] Work Phone: Blood monocytes/100 leukocyt eson 11-26-2021 Monocytes/100 WBC (Bld) 9.9 % 0-10 [facility] Work Phone: Blood platelet mean volumeon 11-26-2021 Platelet mean volume (Bld) [Entitic vol] 11.2 fL 6.2-12.0 [facility] Work Phone: Determination of erythrocyte mean corpuscular volume (MCV)on 11-26-2021 MCV (RBC) [Entitic vol] 96.7 fL 80-94 [facility] Work Phone: Hematocrit Auto (Bld) [Volum e fraction]on 11-26-2021 Hematocrit (Bld) [Volume fraction] 46.5 % 40-54 [facility] Work Phone: Laboratory - Chemistry and C hemistry - challengeon 11-26-2021 CO2 [Moles/Vol] 28.0 mmol/L 21.0-32.0 [facility] Work Phone: Urea nitrogen/Creatinine [Mass ratio] 13.3 mg/mg 10-20 [facility] Work Phone: Laboratory - Hematology and Cell countson 11-26-2021 Erythrocyte distribution width (RBC) [Entitic vol] 51.9 fL 35.1-43.9 [facility] Work Phone: Erythrocyte distribution width (RBC) [Ratio] 14.5 % 11.6-14.6 [facility] Work Phone: Immature granulocytes/100 WBC (Bld) 0.300 % 0.0-0.9 [facility] Work Phone: Comment on above: IG% - Immature Granu locytes (promyelocytes, myelocytes and metamyelocytes) > 1% indicates that a LEFT SHIFT is Present. MCH (RBC) [Entitic mass] 31.8 pg 27.0-32.0 [facility] Work Phone: Nucleated RBC/100 WBC (Bld) [Ratio] 0 % 0-5 [facility] Work Phone: MCHC Auto (RBC) [Mass/Vol]on 11-26-2021 MCHC (RBC) [Mass/Vol] 32.9 g/dL 32-36 [facility] Work Phone: No Panel Informationon 11-26 Estimated GFR (MDRD) Amer 80 mL/min >60 [facility] Work Phone: Comment on above: GFR Calc Estimated GFR (MDRD) Non-Af Amer 66 mL/min >60 [facility] Work Phone: Comment on above: Non- GFR Calc Platelets bldon 11-26-2021 Platelets (Bld) [#/Vol] 181 10*3/uL 150-450 [facility] Work Phone: Serum or plasma calcium siobhan urement (mass/volume)on 11-26-2021 Calcium [Mass/Vol] 8.7 mg/dL 8.5-10.1 [facility] Work Phone: Serum or plasma creatinine m easurement (mass/volume)on 11-26-2021 Creatinine [Mass/Vol] 1.13 mg/dL 0.70-1.30 [facility] Work Phone: Comment on above: The validity of the calculated GFR & GFRAA in patients over 70 years has not been determined. Clinical correlation is essential. Serum or plasma urea nitroge n measurement (mass/volume)on 11-26-2021 Urea nitrogen [Mass/Vol] 15 mg/dL 7-18 [facility] Work Phone: Thin prep Papanicolaou smear with manual screeningon 11-26-2021 Thin prep Papanicolaou smear with manual screening 6 5-15 [facility] Work Phone: Absolute lymphocyte counton 11-12-2021 Lymphocytes Auto (Unsp spec) [#/Vol] 1.01 10*3/uL 0.83-4.51 [facility] Work Phone: [phone] Basophil percentageon 2021 Basophils/100 WBC (Bld) 0.6 % 0-1 [facility] Work Phone: Chloride [Moles/Vol] 109 mmol/L 98-107 [facility] Work Phone: Eosinophils/100 WBC (Bld) 1.1 % 0-5 [facility] Work Phone: [phone] Glucose [Mass/Vol] 89 mg/dL 74-106 [facility] Work Phone: [phone] Neutrophils (Bld) [#/Vol] 4.7 10*3/uL 2.0-7.7 [facility] Work Phone: Neutrophils/100 WBC (Bld) 72.7 % 47-70 [facility] Work Phone: [phone] Potassium [Moles/Vol] 3.9 mmol/L 3.5-5.1 [facility] Work Phone: [phone] Sodium [Moles/Vol] 142 mmol/L 136-145 [facility] Work Phone: [phone] WBC (Bld) [#/Vol] 6.5 10*3/uL 4.4-11.0 [facility] Work Phone: Blood erythrocytes count (nu mber/volume)on 11-12-2021 RBC (Bld) [#/Vol] 4.50 10*6/uL 4.6-6.2 [facility] Work Phone: Blood hemoglobin measurement (mass/volume)on 11-12-2021 Hemoglobin (Bld) [Mass/Vol] 14.4 g/dL 13.0-16.5 [facility] Work Phone: Blood lymphocytes/100 leukoc yteson 11-12-2021 Lymphocytes/100 WBC (Bld) 15.5 % 19-41 [facility] Work Phone: Blood monocytes/100 leukocyt eson 11-12-2021 Monocytes/100 WBC (Bld) 9.8 % 0-10 [facility] Work Phone: Blood platelet mean volumeon 11-12-2021 Platelet mean volume (Bld) [Entitic vol] 10.9 fL 6.2-12.0 [facility] Work Phone: Determination of erythrocyte mean corpuscular volume (MCV)on 11-12-2021 MCV (RBC) [Entitic vol] 97.3 fL 80-94 [facility] Work Phone: Hematocrit Auto (Bld) [Volum e fraction]on 11-12-2021 Hematocrit (Bld) [Volume fraction] 43.8 % 40-54 [facility] Work Phone: Laboratory - Chemistry and C hemistry - challengeon 11-12-2021 CO2 [Moles/Vol] 26.0 mmol/L 21.0-32.0 [facility] Work Phone: Urea nitrogen/Creatinine [Mass ratio] 16.4 mg/mg 10-20 [facility] Work Phone: Laboratory - Hematology and Cell countson 11-12-2021 Erythrocyte distribution width (RBC) [Entitic vol] 53.1 fL 35.1-43.9 [facility] Work Phone: Erythrocyte distribution width (RBC) [Ratio] 14.8 % 11.6-14.6 [facility] Work Phone: Immature granulocytes/100 WBC (Bld) 0.300 % 0.0-0.9 [facility] Work Phone: Comment on above: IG% - Immature Granu locytes (promyelocytes, myelocytes and metamyelocytes) > 1% indicates that a LEFT SHIFT is Present. MCH (RBC) [Entitic mass] 32.0 pg 27.0-32.0 [facility] Work Phone: Nucleated RBC/100 WBC (Bld) [Ratio] 0 % 0-5 [facility] Work Phone: MCHC Auto (RBC) [Mass/Vol]on 11-12-2021 MCHC (RBC) [Mass/Vol] 32.9 g/dL 32-36 [facility] Work Phone: No Panel Informationon 11-12 Estimated GFR (MDRD) Amer 102 mL/min >60 [facility] Work Phone: Comment on above: GFR Calc Estimated GFR (MDRD) Non-Af Amer 84 mL/min >60 [facility] Work Phone: Comment on above: Non- GFR Calc Platelets bldon 11-12-2021 Platelets (Bld) [#/Vol] 181 10*3/uL 150-450 [facility] Work Phone: Serum or plasma calcium siobhan urement (mass/volume)on 11-12-2021 Calcium [Mass/Vol] 8.7 mg/dL 8.5-10.1 [facility] Work Phone: Serum or plasma creatinine m easurement (mass/volume)on 11-12-2021 Creatinine [Mass/Vol] 0.92 mg/dL 0.70-1.30 [facility] Work Phone: Comment on above: The validity of the calculated GFR & GFRAA in patients over 70 years has not been determined. Clinical correlation is essential. Serum or plasma urea nitroge n measurement (mass/volume)on 11-12-2021 Urea nitrogen [Mass/Vol] 15 mg/dL 7-18 [facility] Work Phone: Thin prep Papanicolaou smear with manual screeningon 11-12-2021 Thin prep Papanicolaou smear with manual screening 7 5-15 [facility] Work Phone: Absolute lymphocyte counton 10-29-2021 Lymphocytes Auto (Unsp spec) [#/Vol] 0.96 10*3/uL 0.83-4.51 [facility] Work Phone: Basophil percentageon 2021 Basophils/100 WBC (Bld) 0.5 % 0-1 [facility] Work Phone: [phone] Chloride [Moles/Vol] 110 mmol/L 98-107 [facility] Work Phone: [phone] Eosinophils/100 WBC (Bld) 1.9 % 0-5 [facility] Work Phone: Glucose [Mass/Vol] 93 mg/dL 74-106 [facility] Work Phone: [phone] Neutrophils (Bld) [#/Vol] 4.5 10*3/uL 2.0-7.7 [facility] Work Phone: [phone] Neutrophils/100 WBC (Bld) 70.1 % 47-70 [facility] Work Phone: [phone] Potassium [Moles/Vol] 3.8 mmol/L 3.5-5.1 [facility] Work Phone: [phone] Sodium [Moles/Vol] 142 mmol/L 136-145 [facility] Work Phone: [phone] WBC (Bld) [#/Vol] 6.4 10*3/uL 4.4-11.0 [facility] Work Phone: Blood erythrocytes count (nu mber/volume)on 10-29-2021 RBC (Bld) [#/Vol] 4.38 10*6/uL 4.6-6.2 [facility] Work Phone: [phone] Blood hemoglobin measurement (mass/volume)on 10-29-2021 Hemoglobin (Bld) [Mass/Vol] 13.9 g/dL 13.0-16.5 [facility] Work Phone: [phone] Blood lymphocytes/100 leukoc yteson 10-29-2021 Lymphocytes/100 WBC (Bld) 15.1 % 19-41 [facility] Work Phone: Blood monocytes/100 leukocyt eson 10-29-2021 Monocytes/100 WBC (Bld) 12.1 % 0-10 [facility] Work Phone: Blood platelet mean volumeon 10-29-2021 Platelet mean volume (Bld) [Entitic vol] 11.2 fL 6.2-12.0 [facility] Work Phone: Determination of erythrocyte mean corpuscular volume (MCV)on 10-29-2021 MCV (RBC) [Entitic vol] 96.8 fL 80-94 [facility] Work Phone: Hematocrit Auto (Bld) [Volum e fraction]on 10-29-2021 Hematocrit (Bld) [Volume fraction] 42.4 % 40-54 [facility] Work Phone: Laboratory - Chemistry and C hemistry - challengeon 10-29-2021 CO2 [Moles/Vol] 27.0 mmol/L 21.0-32.0 [facility] Work Phone: Urea nitrogen/Creatinine [Mass ratio] 11.1 mg/mg 10-20 [facility] Work Phone: Laboratory - Hematology and Cell countson 10-29-2021 Erythrocyte distribution width (RBC) [Entitic vol] 52.1 fL 35.1-43.9 [facility] Work Phone: Erythrocyte distribution width (RBC) [Ratio] 14.6 % 11.6-14.6 [facility] Work Phone: Immature granulocytes/100 WBC (Bld) 0.300 % 0.0-0.9 [facility] Work Phone: [phone] Comment on above: IG% - Immature Granu locytes (promyelocytes, myelocytes and metamyelocytes) > 1% indicates that a LEFT SHIFT is Present. MCH (RBC) [Entitic mass] 31.7 pg 27.0-32.0 [facility] Work Phone: Nucleated RBC/100 WBC (Bld) [Ratio] 0 % 0-5 [facility] Work Phone: MCHC Auto (RBC) [Mass/Vol]on 10-29-2021 MCHC (RBC) [Mass/Vol] 32.8 g/dL 32-36 [facility] Work Phone: No Panel Informationon 10-29 Estimated GFR (MDRD) Amer 84 mL/min >60 [facility] Work Phone: Comment on above: GFR Calc Estimated GFR (MDRD) Non-Af Amer 70 mL/min >60 [facility] Work Phone: Comment on above: Non- GFR Calc Platelets bldon 10-29-2021 Platelets (Bld) [#/Vol] 187 10*3/uL 150-450 [facility] Work Phone: Serum or plasma calcium siobhan urement (mass/volume)on 10-29-2021 Calcium [Mass/Vol] 8.8 mg/dL 8.5-10.1 [facility] Work Phone: Serum or plasma creatinine m easurement (mass/volume)on 10-29-2021 Creatinine [Mass/Vol] 1.08 mg/dL 0.70-1.30 [facility] Work Phone: Comment on above: The validity of the calculated GFR & GFRAA in patients over 70 years has not been determined. Clinical correlation is essential. Serum or plasma urea nitroge n measurement (mass/volume)on 10-29-2021 Urea nitrogen [Mass/Vol] 12 mg/dL 7-18 [facility] Work Phone: Thin prep Papanicolaou smear with manual screeningon 10-29-2021 Thin prep Papanicolaou smear with manual screening 5 5-15 [facility] Work Phone: [facility] K[facility]ILLARD ([id number]) 1940 M Date Time Provider Department 10/23/21 NICOLAS CARDENAS INTMWS During your visit today, we recorded the following information about you: Flora Wood LPN 10/23/2021 11:54 AM Signed Per [facility] discharge info pt was discharged to [facility] 10/22/21. Allergies As of Date: 10/23/2021 (No [...] by FLORA WOOD LPN on 10/23/21 Normal [facility] Laboratory - Chemistry and C hemistry - challengeon 10-22-2021 CK [Catalytic activity/Vol] 1616 U/L 39-308 [facility] Work Phone: [phone] Absolute lymphocyte counton 10-21-2021 Lymphocytes Auto (Unsp spec) [#/Vol] 0.75 10*3/uL 0.83-4.51 [facility] Work Phone: [phone] Basophil percentageon 2021 Basophils/100 WBC (Bld) 0.1 % 0-1 [facility] Work Phone: [phone] Chloride [Moles/Vol] 107 mmol/L 98-107 [facility] Work Phone: [phone] Eosinophils/100 WBC (Bld) 0.0 % 0-5 [facility] Work Phone: [phone] Glucose [Mass/Vol] 144 mg/dL 74-106 [facility] Work Phone: Comment on above: Fasting Glucose resu lt greater than or equal to 126 mg/dL suggests DIABETES MELLITUS per A.D.A. criteria. Neutrophils (Bld) [#/Vol] 11.4 10*3/uL 2.0-7.7 [facility] Work Phone: Neutrophils/100 WBC (Bld) 85.4 % 47-70 [facility] Work Phone: Potassium [Moles/Vol] 3.7 mmol/L 3.5-5.1 [facility] Work Phone: Sodium [Moles/Vol] 141 mmol/L 136-145 [facility] Work Phone: WBC (Bld) [#/Vol] 13.4 10*3/uL 4.4-11.0 [facility]: Blood erythrocytes count (nu mber/volume)on 10-21-2021 RBC (Bld) [#/Vol] 5.04 10*6/uL 4.6-6.2 [facility] Work Phone: Blood hemoglobin measurement (mass/volume)on 10-21-2021 Hemoglobin (Bld) [Mass/Vol] 15.7 g/dL 13.0-16.5 [facility] Work Phone: Blood lymphocytes/100 leukoc yteson 10-21-2021 Lymphocytes/100 WBC (Bld) 5.6 % 19-41 [facility] Work Phone: Blood monocytes/100 leukocyt eson 10-21-2021 Monocytes/100 WBC (Bld) 8.5 % 0-10 [facility] Work Phone: Blood platelet mean volumeon 10-21-2021 Platelet mean volume (Bld) [Entitic vol] 11.2 fL 6.2-12.0 [facility] Work Phone: Determination of erythrocyte mean corpuscular volume (MCV)on 10-21-2021 MCV (RBC) [Entitic vol] 93.8 fL 80-94 [facility] Work Phone: Hematocrit Auto (Bld) [Volum e fraction]on 08-23-2022 Hematocrit (Bld) [Volume fraction] 47.3 % 40-54 [facility] Work Phone: Laboratory - Chemistry and C hemistry - challengeon 10-21-2021 CO2 [Moles/Vol] 26.0 mmol/L 21.0-32.0 [facility] Work Phone: Urea nitrogen/Creatinine [Mass ratio] 14.2 mg/mg 10-20 [facility] Work Phone: Laboratory - Hematology and Cell countson 10-21-2021 Erythrocyte distribution width (RBC) [Entitic vol] 50.5 fL 35.1-43.9 [facility] Work Phone: Erythrocyte distribution width (RBC) [Ratio] 14.7 % 11.6-14.6 [facility] Work Phone: Immature granulocytes/100 WBC (Bld) 0.400 % 0.0-0.9 [facility] Work Phone: Comment on above: IG% - Immature Granu locytes (promyelocytes, myelocytes and metamyelocytes) > 1% indicates that a LEFT SHIFT is Present. MCH (RBC) [Entitic mass] 31.2 pg 27.0-32.0 [facility] Work Phone: Nucleated RBC/100 WBC (Bld) [Ratio] 0 % 0-5 [facility] Work Phone: MCHC Auto (RBC) [Mass/Vol]on 10-21-2021 MCHC (RBC) [Mass/Vol] 33.2 g/dL 32-36 [facility] Work Phone: No Panel Informationon 10-21 Estimated Creatinine Clearance Calc 48.76 ml/min [facility] Work Phone: Estimated GFR (MDRD) Amer 80 mL/min >60 [facility] Work Phone: Comment on above: GFR Calc Estimated GFR (MDRD) Non-Af Amer 66 mL/min >60 [facility] Work Phone: Comment on above: Non- GFR Calc Thyroid Stimulating Hormone (TSH) 1.56 uIU/mL 0.358-3.74 [facility] Work Phone: Vitamin D 25-Hydroxy 10.8 ng/mL [facility] Work Phone: Comment on above: Vitamin D 25(OH) Sta tus Range Deficiency <20 ng/mL (50nmol/L) Insufficiency 20 - 30 ng/mL (50 - 75 nmol/L) Sufficiency 30 - 100 ng/mL (75 - 250 nmol/L) Toxicity >100 ng/mL (>250 nmol/L) Platelets bldon 10-21-2021 Platelets (Bld) [#/Vol] 219 10*3/uL 150-450 [facility] Work Phone: Serum or plasma calcium siobhan urement (mass/volume)on 10-21-2021 Calcium [Mass/Vol] 9.1 mg/dL 8.5-10.1 [facility] Work Phone: Serum or plasma creatinine m easurement (mass/volume)on 10-21-2021 Creatinine [Mass/Vol] 1.13 mg/dL 0.70-1.30 [facility] Work Phone: Comment on above: The validity of the calculated GFR & GFRAA in patients over 70 years has not been determined. Clinical correlation is essential. Serum or plasma urea nitroge n measurement (mass/volume)on 10-21-2021 Urea nitrogen [Mass/Vol] 16 mg/dL 7-18 [facility] Work Phone: Thin prep Papanicolaou smear with manual screeningon 10-21-2021 Thin prep Papanicolaou smear with manual screening 8 5-15 [facility] Work Phone: Absolute lymphocyte counton 10-20-2021 Lymphocytes Auto (Unsp spec) [#/Vol] 0.59 10*3/uL 0.83-4.51 [facility] Work Phone: Basophil percentageon 2021 Basophil percentage 5-10 SEEN /hpf 0-5 [facility] Work Phone: Basophils/100 WBC (Bld) 0.1 % 0-1 [facility] Work Phone: Chloride [Moles/Vol] 107 mmol/L 98-107 [facility] Work Phone: Eosinophils/100 WBC (Bld) 0.0 % 0-5 [facility] Work Phone: Glucose [Mass/Vol] 110 mg/dL 74-106 [facility] Work Phone: Comment on above: Fasting Glucose resu lt from 100 to 125 mg/dL suggests IMPAIRED HOMEOSTASIS per A.D.A. criteria. Neutrophils (Bld) [#/Vol] 11.6 10*3/uL 2.0-7.7 [facility] Work Phone: Neutrophils/100 WBC (Bld) 85.8 % 47-70 [facility] Work Phone: Potassium [Moles/Vol] 3.6 mmol/L 3.5-5.1 [facility] Work Phone: Sodium [Moles/Vol] 141 mmol/L 136-145 [facility] Work Phone: WBC (Bld) [#/Vol] 13.5 10*3/uL 4.4-11.0 [facility] Work Phone: Bilirubin Test strip Ql (U)o n 10-20-2021 Bilirubin Ql (U) Negative Negative [facility] Work Phone: Blood erythrocytes count (nu mber/volume)on 10-20-2021 RBC (Bld) [#/Vol] 5.14 10*6/uL 4.6-6.2 [facility] Work Phone: Blood hemoglobin measurement (mass/volume)on 10-20-2021 Hemoglobin (Bld) [Mass/Vol] 15.9 g/dL 13.0-16.5 [facility] Work Phone: Blood lymphocytes/100 leukoc yteson 10-20-2021 Lymphocytes/100 WBC (Bld) 4.4 % 19-41 [facility] Work Phone: Blood manual differential co mment interpretation (narrative result)on 10-20-2021 Manual differential comment Wei (Bld) [Interp] SEE COMMENT [facility] Work Phone: Comment on above: LYMPHOPENIA NOTED Blood monocytes/100 leukocyt eson 10-20-2021 Monocytes/100 WBC (Bld) 9.0 % 0-10 [facility] Work Phone: Blood platelet adequacy dete ction by light microscopyon 10-20-2021 Platelets LM Ql (Bld) ADEQUATE ADEQ [facility] Work Phone: Blood platelet mean volumeon 10-20-2021 Platelet mean volume (Bld) [Entitic vol] 10.4 fL 6.2-12.0 [facility] Work Phone: Determination of erythrocyte mean corpuscular volume (MCV)on 10-20-2021 MCV (RBC) [Entitic vol] 92.8 fL 80-94 [facility] Work Phone: Hematocrit Auto (Bld) [Volum e fraction]on 10-20-2021 Hematocrit (Bld) [Volume fraction] 47.7 % 40-54 [facility] Work Phone: Hyaline casts LM.LPF (Urine sed) [#/Area]on 10-20-2021 Hyaline casts (Urine sed) [#/Area] 0 /[LPF] 0-5 [facility] Work Phone: Ketones Test strip Ql (U)on 10-20-2021 Ketones Ql (U) 50 mg/dl Negative [facility] Work Phone: Laboratory - Chemistry and C hemistry - challengeon 10-20-2021 CO2 [Moles/Vol] 25.0 mmol/L 21.0-32.0 [facility] Work Phone: Urea nitrogen/Creatinine [Mass ratio] 15.0 mg/mg 10-20 [facility] Work Phone: Laboratory - Hematology and Cell countson 10-20-2021 Anisocytosis Ql (Bld) RARE [facility] Work Phone: Erythrocyte distribution width (RBC) [Entitic vol] 48.4 fL 35.1-43.9 [facility] Work Phone: Erythrocyte distribution width (RBC) [Ratio] 14.4 % 11.6-14.6 [facility] Work Phone: Immature granulocytes/100 WBC (Bld) 0.700 % 0.0-0.9 [facility] Work Phone: Comment on above: IG% - Immature Granu locytes (promyelocytes, myelocytes and metamyelocytes) > 1% indicates that a LEFT SHIFT is Present. MCH (RBC) [Entitic mass] 30.9 pg 27.0-32.0 [facility] Work Phone: Nucleated RBC/100 WBC (Bld) [Ratio] 0 % 0-5 [facility] Work Phone: MCHC Auto (RBC) [Mass/Vol]on 10-20-2021 MCHC (RBC) [Mass/Vol] 33.3 g/dL 32-36 [facility] Work Phone: Macrocytes detectionon 10-20 Macrocytes Ql (Bld) RARE [facility] Work Phone: Mucus LM Ql (Urine sed)on Mucus Ql (Urine sed) 0 SEEN /hpf [facility] Work Phone: Nitrite Test strip Ql (U)on 10-20-2021 Nitrite Ql (U) Negative Negative [facility] Work Phone: No Panel Informationon 10-20 Estimated Creatinine Clearance Calc 53.23 ml/min [facility] Work Phone: Estimated GFR (MDRD) Amer 85 mL/min >60 [facility] Work Phone: Comment on above: GFR Calc Estimated GFR (MDRD) Non-Af Amer 70 mL/min >60 [facility] Work Phone: Comment on above: Non- GFR Calc Platelets bldon 10-20-2021 Platelets (Bld) [#/Vol] 198 10*3/uL 150-450 [facility] Work Phone: Protein Test strip Ql (U)on 10-20-2021 Protein Ql (U) 30 mg/dl Negative [facility] Work Phone: RBC morphologyon 10-20-2021 RBC morphology finding Nom (Bld) N CHROM NORMAL NORM C&C [facility] Work Phone: Serum or plasma calcium siobhan urement (mass/volume)on 10-20-2021 Calcium [Mass/Vol] 9.1 mg/dL 8.5-10.1 [facility] Work Phone: Serum or plasma creatinine m easurement (mass/volume)on 10-20-2021 Creatinine [Mass/Vol] 1.07 mg/dL 0.70-1.30 [facility] Work Phone: Comment on above: The validity of the calculated GFR & GFRAA in patients over 70 years has not been determined. Clinical correlation is essential. Serum or plasma urea nitroge n measurement (mass/volume)on 10-20-2021 Urea nitrogen [Mass/Vol] 16 mg/dL 7-18 [facility] Work Phone: Squamous epithelial cells de tection in urine sediment by light microscopyon 10-20-2021 Epithelial cells.squamous LM Ql (Urine sed) 0 SEEN /hpf 0-5 [facility] Work Phone: Thin prep Papanicolaou smear with manual screeningon 10-20-2021 Thin prep Papanicolaou smear with manual screening 9 5-15 [facility] Work Phone: Urine blood detectionon 09-30 RBC Ql (U) 250 /ul Negative [facility] Work Phone: RBC Ql (U) 0 SEEN /hpf 0-5 [facility] Work Phone: Urine clarityon 10-20-2021 Clarity (U) Sl. Cloudy Clear [facility] Work Phone: Urine color determinationon 10-20-2021 Color (U) Kristina Yellow [facility] Work Phone: Urine glucose detectionon Glucose Ql (U) Normal mg/dl Normal [facility] Work Phone: Urine leukocyte esterase det ection by dipstickon 10-20-2021 Leukocyte esterase Test strip Ql (U) 25 /ul Negative [facility] Work Phone: Urine pHon 10-20-2021 pH (U) 5.0 [pH] 5.0 - 8.0 [facility] Work Phone: Urine sediment bacteria coun t by microscopy (number/high power field)on 10-20-2021 Bacteria LM.HPF (Urine sed) [#/Area] 1 /[HPF] None Seen [facility] Work Phone: Urine specific gravity measu rementon 10-20-2021 Specific gravity (U) [Rel density] 1.025 1.002-1.030 [facility] Work Phone: Urobilinogen Auto test strip Ql (U)on 10-20-2021 Urobilinogen Ql (U) 1 mg/dl Normal [facility] Work Phone: CNOVon 09-29-2021 CNOV Office Visit (INTMWS) KEL DILLARD ([id number]) 1940 M Date Time Provider Department 09/29/21 4:40 PM NICOLAS CARDENAS INTMWS During your visit today, we recorded the following information about you: Temperature Pulse Respiration [facility] CNP[facility] Telephone (INTMWS) KEL DILLARD Angel ([id number]) 1940 M Date Time Provider Department 07/15/21 NICOLAS CARDENAS INTMWS During your visit today, we recorded the following information about you: Karen Matias RN 07/15/2021 1:40 PM Signed Yesenia, Admissions staff member at [facility] calling to state patient's son Jhonny has reached out to them to request patient possibly be admitted into their memory care unit due to cognition concerns. Yesenia is requesting notes from patient's last OV be faxed to them at [phone]. This nurse contacted son Jhonny to verify the request and he confirmed it was ok to share requested information. Information faxed as requested. Karen Matias RN Allergies As of Date: 07/15/2021 (No Known Allergies) Date Reviewed: 05/12/2021 Reviewed by: Dori Martines APRN.RN MEDICARE - Fully Assessed Reason for Visit: fax [...] by KAREN MATIAS on 07/15/21 Normal [facility] Culture, urine Bacteria identified Cx Nom (U) Positive [facility] Work Phone: Vital Signs Date Time Vital Sign Value Performing Clinician Faci lity 12-15-2024 08:00-0400 Body height 172.[address] David Miramontes MD Work Phone: [facility] 11-02-2024 05:29-0400 Respiratory rate 18 /min Dr. David Miramontes MD Work Phone: [facility] 11-02-2024 05:22-0400 Body temperature 98.2 [degF] Dr. David Miramontes MD Work Phone: [facility] 11-02-2024 05:22-0400 Diastolic blood pressure 80 mm[Hg] Dr. David Miramontes MD Work Phone: [facility] 11-02-2024 05:22-0400 Heart rate 67 /min Dr. David Miramontes MD Work Phone: [facility] 11-02-2024 05:22-0400 SaO2% (BldA) [Mass fraction] 98 % Dr. David Miramontes MD Work Phone: [facility] 11-02-2024 05:22-0400 Systolic blood pressure 154 mm[Hg] Dr. David Miramontes MD Work Phone: [facility] 11-02-2024 03:30-0400 Body height 172.[address] David Miramontes MD Work Phone: [facility] 11-02-2024 03:30-0400 Body mass index (BMI) [Ratio] 29.7 kg/m2 Dr. David Miramontes MD Work Phone: [facility] 11-02-2024 03:30-0400 Body weight 88.[address] David Miramontes MD Work Phone: [facility] 10-29-2024 11:28-0400 Body temperature 98.3 [degF] Dr. David Miramontes MD Work Phone: [facility] 10-29-2024 11:28-0400 Diastolic blood pressure 84 mm[Hg] Dr. David Miramontes MD Work Phone: [facility] 10-29-2024 11:28-0400 Heart rate 66 /min Dr. David Miramontes MD Work Phone: [facility] 10-29-2024 11:28-0400 Respiratory rate 16 /min Dr. David Miramontes MD Work Phone: [facility] 10-29-2024 11:28-0400 SaO2% (BldA) [Mass fraction] 99 % Dr. David Miramontes MD Work Phone: [facility] 10-29-2024 11:28-0400 Systolic blood pressure 118 mm[Hg] Dr. David Miramontes MD Work Phone: [facility] 10-29-2024 09:52-0400 Body height 172.[address] David Miramontes MD Work Phone: [facility] 10-29-2024 09:52-0400 Body mass index (BMI) [Ratio] 29.1 kg/m2 Dr. David Miramontes MD Work Phone: [facility] 10-29-2024 09:52-0400 Body weight [address] David Miramontes MD Work Phone: [facility] 10-27-2024 22:00-0400 Diastolic blood pressure 55 mm[Hg] Dr. David Miramontes MD Work Phone: [facility] 10-27-2024 22:00-0400 Heart rate 65 /min Dr. David Miraomntes MD Work Phone: [facility] 10-27-2024 22:00-0400 Respiratory rate 16 /min Dr. David Miramontes MD Work Phone: [facility] 10-27-2024 22:00-0400 Systolic blood pressure 146 mm[Hg] Dr. David Miramontes MD Work Phone: [facility] 10-27-2024 21:52-0400 Body temperature 98 [degF] Dr. David Miramontes MD Work Phone: [facility] 10-27-2024 21:52-0400 SaO2% (BldA) [Mass fraction] 96 % Dr. David Miramontes MD Work Phone: [facility] 10-27-2024 20:34-0400 Body height 172.[address] David Miramontes MD Work Phone: [facility] 10-27-2024 20:34-0400 Body mass index (BMI) [Ratio] 30.2 kg/m2 Dr. David Miramontes MD Work Phone: [facility] 10-27-2024 20:34-0400 Body weight 90.[address] David Miramontes MD Work Phone: [facility] 09-15-2024 13:51-0400 Body height 175.[address] David Miramontes MD Work Phone: [facility] 09-15-2024 12:10-0400 Body height 175.[address] David Miramontes MD Work Phone: [facility] 09-13-2024 11:44-0400 Body height 175.[address] David Miramontes MD Work Phone: [facility] 12-02-2022 10:40-0400 Body height 175.[address] Nicolas Cardenas Work Phone: [facility] 04-02-2022 14:41-0500 Body height 175.[address] Nicolas Cardenas Work Phone: [facility] 10-22-2021 08:30-0400 Body temperature 98.2 [degF] Dr. Nicolas Cardenas Work Phone: [facility] Work Phone: 10-22-2021 08:30-0400 Diastolic blood pressure 71 mm[Hg] Dr. Nicolas Cardenas Work Phone: [facility] Work Phone: 10-22-2021 08:30-0400 Heart rate 59 /min Dr. Nicolas Cardenas Work Phone: [facility] Work Phone: 10-22-2021 08:30-0400 Respiratory rate 16 /min Dr. Nicolas Cardenas Work Phone: [facility] Work Phone: 10-22-2021 08:30-0400 SaO2% (BldA) [Mass fraction] 95 % Dr. Nicolas Cardenas Work Phone: [facility] Work Phone: 10-22-2021 08:30-0400 Systolic blood pressure 125 mm[Hg] Dr. Nicolas Cardenas Work Phone: [facility] Work Phone: 10-21-2021 01:00-0400 Body height 175.[address] Nicolas Cardenas Work Phone: [facility] Work Phone: 10-21-2021 01:00-0400 Body mass index (BMI) [Ratio] 28.1 kg/m2 Dr. Nicolas Cardenas Work Phone: [facility] Work Phone: 10-21-2021 01:00-0400 Body weight 86.[address] Nicolas Cardenas Work Phone: [facility] Work Phone: 10-21-2021 00:46-0400 Body temperature 97.9 [degF] Dr. Nicolas Cardenas Work Phone: [facility] Work Phone: 10-21-2021 00:46-0400 Diastolic blood pressure 74 mm[Hg] Dr. Nicolas Cardenas Work Phone: [facility] Work Phone: 10-21-2021 00:46-0400 Heart rate 60 /min Dr. Nicolas Cardenas Work Phone: [facility] Work Phone: 10-21-2021 00:46-0400 Respiratory rate 25 /min Dr. Nicolas Cardenas Work Phone: [facility] Work Phone: 10-21-2021 00:46-0400 SaO2% (BldA) [Mass fraction] 94 % Dr. Nicolas Cardenas Work Phone: [facility] Work Phone: 10-21-2021 00:46-0400 Systolic blood pressure 115 mm[Hg] Dr. Nicolas Cardenas Work Phone: [facility] Work Phone: 10-20-2021 20:20-0400 Body height 175.[address] Nicolas Cardenas Work Phone: [facility] Work Phone: 10-20-2021 20:20-0400 Body mass index (BMI) [Ratio] 28.6 kg/m2 Dr. Nicolas Cardenas Work Phone: [facility] Work Phone: 10-20-2021 20:20-0400 Body weight 87.[address] Nicolas Cardenas Work Phone: [facility] Work Phone: 09-29-2021 16:45-0400 Body height 165.7 cm Nicolas Cardenas MD Work Phone: [facility] 09-29-2021 16:45-0400 Body temperature 97.3 [degF] Nicolas Cardenas MD Work Phone: [facility] 09-29-2021 16:45-0400 Body weight 87.09 kg Nicolas Cardenas MD Work Phone: [facility] 09-29-2021 16:45-0400 Diastolic blood pressure 76 mm[Hg] Nicolas Cardenas MD Work Phone: [facility] 09-29-2021 16:45-0400 Heart rate 60 /min Nicolas Cardenas MD Work Phone: [facility] 09-29-2021 16:45-0400 Respiratory rate 16 /min Nicolas Cardenas MD Work Phone: [facility] 09-29-2021 16:45-0400 Systolic blood pressure 130 mm[Hg] Nicolas Cardenas MD Work Phone: [facility] Encounters Encounter Date Encounter Type Care Provider Facility Start: 12-18-2024 End: 12-18-2024 ambulatory Efewongbe Oleghe Facility:[facility] Start: 12-11-2024 End: 12-11-2024 ambulatory Efewongbe Oleghe Facility:[facility] Start: 12-08-2024 End: 12-08-2024 ambulatory Efewongbe Oleghe Facility:[facility] Start: 11-27-2024 ambulatory Efewongbe Oleghe Facili ty:[facility] Start: 11-22-2024 Registered Referred David Miramontes MD -[facility] Start: 11-22-2024 End: 11-22-2024 ambulatory Efewongbe Oleghe Facility:[facility] Start: 11-20-2024 End: 11-20-[address] David Miramontes MD Work Phone: -[facility] Start: 11-20-2024 End: 11-20-[address] Edson Quinn MD -[facility] Work Phone: Start: 11-07-2024 Registered Referred David Miramontes MD -[facility] [place] Start: 11-07-2024 End: 11-07-2024 ambulatory Efewongbe Oleghe Facility:[facility] Start: 11-03-2024 End: 11-03-[address] David Miramontes MD Work Phone: [phone] [place] [address] Start: 11-03-2024 End: 11-03-2024 Patient encounter procedure Marimar Mesha [facility] Work Phone: Start: 11-02-2024 End: 11-02-[address] David Miramontes MD Work Phone: [facility] Start: 11-02-2024 End: 11-02-2024 Patient encounter procedure Marimar Mesha [facility] Work Phone: Start: 11-02-2024 Registered Referred David Miramontes MD -[facility] Start: 11-02-2024 End: 11-02-2024 Emergency department patient visit Dr. David Miramontes MD Work Phone: -Emergency Department Work Phone: Start: 10-31-2024 End: 10-31-[address] David Miramontes MD Work Phone: [facility] Start: 10-31-2024 End: 10-31-[address] David Miramontes MD -[facility] Work Phone: Start: 10-29-2024 End: 10-29-2024 Emergency department patient visit Dr. David Miramontes MD Work Phone: -Emergency Department Work Phone: Start: 10-27-2024 End: 10-27-2024 Emergency department patient visit Dr. David Miramontes MD Work Phone: -Emergency Department Work Phone: Start: 09-29-2024 End: 09-29-[address] David Miramontes MD Work Phone: [facility] Start: 09-29-2024 End: 09-29-2024 Patient encounter procedure Dasia Barrett [facility] Work Phone: Start: 09-25-2024 End: 09-25-2024 Patient encounter procedure Marimar Zimmer [facility] Work Phone: Start: 09-25-2024 End: 09-25-[address] David Miramontes MD Work Phone: [facility] Start: 09-25-2024 Registered Referred David AdamKrystle [facility] Start: 09-19-2024 End: 09-19-[address] David Miramontes MD Work Phone: [facility] Start: 09-19-2024 End: 09-19-2024 Patient encounter procedure Marimar Zimmer [facility] Work Phone: Start: 09-07-2024 Registered Referred David BILLS [place] Start: 09-07-2024 End: 09-07-2024 ambulatory David GARCIA Facility:[facility] Start: 08-31-2024 Registered Referred David BILLS [place] Start: 08-31-2024 End: 08-31-2024 ambulatory David GARCIA Facility:[facility] Start: 08-29-2024 End: 08-29-[address] David Miramontes MD Work Phone: [facility] Start: 08-29-2024 End: 08-29-[address] David Miramontes MD -[facility] Work Phone: Start: 08-25-2024 End: 08-25-[address] David Miramontes MD Work Phone: [facility] Start: 08-25-2024 End: 08-25-2024 Patient encounter procedure Marimar Zimmer [facility] Work Phone: Start: 08-22-2024 ambulatory David GARCIA Fa cility:[facility] Start: 08-22-2024 [facility] Start: 08-21-2024 End: 08-21-[address] David Miramontes MD Work Phone: [facility] Start: 08-21-2024 End: 08-21-2024 Patient encounter procedure Marimar Zimmer [facility] Work Phone: Start: 08-21-2024 End: 08-21-[address] Dvaid Miramontes MD Work Phone: [facility] Start: 08-21-2024 End: 08-21-[address] Edson Quinn MD -[facility] Work Phone: Start: 08-15-2024 End: 08-15-[address] David Miramontes MD Work Phone: [facility] Start: 08-15-2024 End: 08-15-2024 Patient encounter procedure Marimar Zimmer [facility] Work Phone: Start: 08-02-2024 ambulatory David GARCIA Fa cility:[facility] Start: 08-02-2024 [facility] Start: 08-01-2024 ambulatory David GARCIA Fa cility:[facility] Start: 08-01-2024 Registered Referred David AdamKrystle [place] Start: 07-21-2024 Registered Referred David AdamKrystle [place] Start: 07-20-2024 End: 07-21-[address] David Miramontes MD Work Phone: [facility] Start: 07-20-2024 End: 07-20-2024 Patient encounter procedure Marimar Zimmer [facility] Work Phone: Start: 07-18-2024 End: 07-18-[address] David Miramontes MD Work Phone: [facility] Start: 07-18-2024 End: 07-18-[address] David Miramontes MD -[facility] Work Phone: Start: 07-17-2024 End: 07-17-2024 Follow-up encounter Dianasheila Frazierletdelonit HISTORICAL RECORDS ADMINISTRATOR.RN MEDICARE Work Phone: [facility] Comment on above: Results Start: 07-14-2024 End: 07-14-2024 Office outpatient new 30 minutes Diana Andres Postlethwait HISTORICAL RECORDS ADMINISTRATOR.RN MEDICARE Work Phone: [facility] Comment on above: Gross hematuria (Lise wallace Dx) Start: 07-14-2024 End: 07-14-2024 ambulatory DIANA ANDRES POSTLETHWAIT Facility:[facility] Start: 07-04-2024 End: 07-04-[address] David Miramontes MD Work Phone: [facility] Start: 07-04-2024 End: 07-04-2024 Patient encounter procedure Marimar Zimmer NP-C -[facility] Work Phone: Start: 06-23-2024 End: 06-23-[address] David Miramontes MD Work Phone: [facility] Work Phone: Start: 06-23-2024 End: 06-23-2024 Departed Referred David Miramontes MD -[facility] Start: 06-23-2024 End: 06-23-2024 ambulatory David Miramontes Facility:[facility] Start: 06-05-2024 End: 06-05-[address] David Miramontes MD Work Phone: [facility] Work Phone: Start: 06-05-2024 End: 06-05-2024 Departed Referred David Miramontes MD -[facility] Start: 06-05-2024 Registered Referred David AdamKrystle [place] Start: 06-05-2024 End: 06-05-2024 ambulatory Efwaynefeliciaingris Guerrae Facility:[facility] Start: 05-30-2024 ambulatory Efdanay Miramontes Facili ty:[facility] Start: 05-30-2024 Non-patient / Non-visit Dr. Josiah Klein MD -[facility] Start: 05-30-2024 End: 05-30-[address] David Miramontes MD -[facility] Work Phone: Start: 05-30-2024 End: 05-30-2024 ambulatory Marimar Zimmer JUMP ROLL OPERATOR Facility:[facility] Start: 05-30-2024 End: 05-30-2024 Patient encounter procedure Marimar Zimmer JUMP ROLL OPERATOR- -[facility] Work Phone: Start: 05-30-2024 End: 05-30-[address] David Miramontes MD Work Phone: [facility] Work Phone: Start: 05-30-2024 End: 05-30-2024 Departed Referred David AdamKrystle Pickett Start: 05-30-2024 Registered Referred David AdamKrystle [place] Start: 05-30-2024 End: 05-30-2024 ambulatory Efwaynecarleen Pinkamnatereza Facility:[facility] Start: 05-23-2024 End: 05-23-2024 ambulatory Efwaynefeliciaingris Pinkiman Facility:[facility] Start: 05-23-2024 End: 05-23-[address] David Miramontes MD -[facility] Work Phone: Start: 05-22-2024 End: 05-22-[address] David Miramontes MD Work Phone: [facility] Work Phone: Start: 05-22-2024 End: 05-22-2024 Departed Referred David AdamKrystle Pickett Start: 05-22-2024 Registered Referred David AdamKrystle [place] Start: 05-22-2024 End: 05-22-[address] Edson Quinn MD -[facility] Work Phone: Start: 05-22-2024 End: 05-22-2024 ambulatory Edson Quinn Facility:[facility] Start: 05-18-2024 End: 05-18-2024 ambulatory Efewongbe Charliee Facility:[facility] Start: 05-18-2024 End: 05-18-2024 Patient encounter procedure Marimar VASQUES -[facility] Work Phone: Start: 05-13-2024 End: 05-13-2024 ambulatory Efewongbe Oleamnae Facility:[facility] Start: 05-13-2024 End: 05-13-[address] Edson Quinn MD -[facility] Work Phone: Start: 05-11-2024 End: 05-11-2024 ambulatory Efewongbe Oleamnae Facility:[facility] Start: 05-11-2024 End: 05-11-2024 Patient encounter procedure Marimar VASQUES -[facility] Work Phone: Start: 05-01-2024 End: 05-01-2024 ambulatory Efewongbe Oleghe Facility:[facility] Start: 05-01-2024 End: 05-01-2024 Patient encounter procedure Marimar VASQUES -[facility] Work Phone: Start: 04-19-2024 End: 04-19-2024 ambulatory Efewongbe Oleghe Facility:[facility] Start: 04-19-2024 End: 04-19-2024 Patient encounter procedure Marimar VASQUES -[facility] Work Phone: Start: 04-17-2024 ambulatory Efewongbe Oleghe Facili ty:[facility] Start: 04-17-2024 Registered Referred Efewongbe Joesphghe MD -[facility] Start: 04-13-2024 ambulatory Efewongbe Oleghe Facili ty:[facility] Start: 04-13-2024 Registered Referred David AdamKrystle [place] Start: 04-11-2024 End: 04-11-2024 ambulatory Efewongbe Oleghe Facility:[facility] Start: 04-11-2024 End: 04-11-[address] [facility] Start: 04-07-2024 ambulatory Efewongbe Oleghe Facili ty:[facility] Start: 04-07-[address] [facility] Start: 04-04-2024 ambulatory Efewongbe Oleghe Facili ty:[facility] Start: 04-04-2024 [facility] Start: 03-13-2024 End: 03-13-2024 ambulatory Efewongbe Oleghe Facility:[facility] Start: 03-13-2024 End: 03-13-2024 Patient encounter procedure Marimar VASQUES -[facility] Work Phone: Start: 03-02-2024 End: 03-02-2024 ambulatory Efewongbe Oleghe Facility:[facility] Start: 03-02-2024 End: 03-02-2024 [facility]: Start: 02-15-2024 End: 02-15-2024 ambulatory Efewongbe Oleghe Facility:[facility] Start: 02-15-2024 End: 02-15-[address] [facility] Start: 02-14-2024 End: 02-14-2024 ambulatory Efewongbe Oleghe Facility:[facility] Start: 02-14-2024 End: 02-14-[address] Edson Quinn MD -[facility] Work Phone: Start: 02-03-2024 ambulatory Efewongbe Charliee Facili ty:[facility] Start: 01-12-2024 End: 01-12-2024 ambulatory Efewongbe Oleamnae Facility:[facility] Start: 04-06-2023 End: 04-06-[address] Nicolas Cardenas Work Phone: [facility] Work Phone: Start: 04-06-2023 End: 04-06-[address] Nicolas Cardenas Work Phone: [facility] Start: 02-02-2023 End: 02-02-[address] [facility] Work Phone: Start: 01-15-2023 End: 01-15-[address] [facility]arden[facility] Work Phone: Start: 12-30-2022 End: 12-30-[address] Nicolas Cardenas Work Phone: [facility] Work Phone: Start: 12-30-2022 End: 12-30-[address] Nicolas Cardenas Work Phone: [facility] Start: 11-23-2022 End: 11-23-[address] [facility]arden[facility] Work Phone: Start: 11-17-2022 End: 11-17-[address] [facility] Cardenas [facility] Work Phone: Start: 10-06-2022 End: 10-06-[address] Nicolas Cardenas Work Phone: [facility] Work Phone: Start: 09-29-2022 End: 09-29-[address] Nicolas Cardenas Work Phone: [facility] Start: 09-23-2022 End: 09-23-[address] Nicolas Cardenas Work Phone: [facility] Work Phone: Start: 06-29-2022 End: 06-29-[address] Nicolas Cardenas Work Phone: [facility] Work Phone: Start: 06-29-2022 End: 06-29-[address] Nicolas Cardenas Work Phone: [facility] Start: 06-23-2022 End: 06-23-[address] Nicolas Cardenas Work Phone: [facility] Start: 06-05-2022 ambulatory Yoli johnson Rewardli Comment on above: Population Health Na vigation Outreach ([facility] Gaps) Start: 05-18-2022 End: 05-18-[address] Nicolas Cardenas Work Phone: [facility] Start: 04-14-2022 End: 04-14-[address] Nicolas Cardenas Work Phone: [facility] Start: 04-01-2022 End: 04-01-[address] Nicolas Cardenas Work Phone: [facility] Work Phone: Start: 04-01-2022 End: 04-01-[address] Nicolas Cardenas Work Phone: [facility] Start: 03-16-2022 End: 03-16-[address] Nicolas Cardenas Work Phone: [facility] Start: 02-24-2022 End: 02-24-[address] Nicolas Cardenas Work Phone: [facility] Start: 01-07-2022 End: 01-07-[address] Nicolas Cardenas Work Phone: [facility] [facility] Start: 01-05-2022 End: 01-05-[address] Nicolas Cardenas Work Phone: [facility] Start: 12-24-2021 End: 12-24-[address] Nicolas Cardenas Work Phone: [facility] Work Phone: Start: 12-24-2021 End: 12-24-[address] Nicolas Cardenas Work Phone: [facility] Start: 12-24-[address] Nicolas Cardenas Work Phone: [facility] Start: 12-15-2021 End: 12-15-[address] Nicolas Cardenas Work Phone: [facility] Start: 12-10-2021 End: 12-10-[address] Nicolas Cardenas Work Phone: [facility] Work Phone: Start: 12-10-2021 End: 12-10-[address] Nicolas Cardenas Work Phone: [facility] Start: 12-10-[address] Nicolas Cardenas Work Phone: [facility] Start: 12-09-2021 Telephone encounter Nicolas gutierrez MD Work Phone: [facility] [place] Comment on above: form dropping off Start: 11-26-2021 End: 11-26-[address] Nicolas Cardenas Work Phone: [facility] Work Phone: Start: 11-26-2021 End: 11-26-[address] Nicolas Cardenas Work Phone: [facility] Start: 11-12-[address] Nicolas Cardenas Work Phone: [facility] Start: 10-29-[address] Nicolas Cardenas Work Phone: [facility] Start: 10-23-2021 Telephone encounter Nicolas gutierrez MD Work Phone: [facility] [place] Comment on above: Patient Update Start: 10-22-2021 Non-patient / Non-visit Dr. Nicolas Cardenas Work Phone: [facility] Start: 10-21-2021 Non-patient / Non-visit Dr. Nicolas Cardenas Work Phone: [facility] Start: 10-20-2021 Non-patient / Non-visit Dr. Nicolas Cardenas Work Phone: [facility] Start: 10-20-2021 End: 10-22-2021 Evaluation and management of inpatient Dr. Nicolas Cardenas Work Phone: [facility] Start: 10-20-2021 End: 10-22-[address] 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 Alana Miramontes MD Work Phone: Start: 05-30-2024 Urnls dip stick/tabl et reagent auto microscopy Dr. Dvaid Miramontes MD Work Phone: Start: 05-30-2024 Prostate [...] Dr. Nicolas Cardenas Work Phone: Start: 09-29-2021 PFIZER-BIONTThumbs Up COVI D-19 VACCINE, AGE 12+ YR (LANGE TOP) Nicolas Cardenas MD Work Phone: Urine culture Dr. Nicolas Farley Work Phone: Viral antigen assay Dr. Filiberto Cardenas Work Phone: Plan of Treatment Date Care Activity Detail Author Start: 11-02-2024 [facility] Start: 10-30-2024 Influenza vaccination Influenz a Vaccine (Season Ended) [facility] Start: 10-29-2024 [facility] Start: 10-27-2024 End: 10-27-2024 [facility] Start: 10-27-2024 Brain/Head without Contrast Brain/Head without Contrast [facility] Start: 10-27-2024 CT Unspecified body region WO contrast [facility] Start: 09-25-2024 Microbial culture, routine Wound Cul ture [facility] Start: 09-25-2024 [facility] Start: 04-22-2024 DIABETES SCREEN DIABETES SCREEN [facility] Start: 04-22-2024 Diabetes Screening Diabetes Screenin g [facility] Start: 03-01-2024 Advance Directive Discussion Advance Directive Discussion [facility] Start: 10-31-2023 Covid-19 Vaccine ( season) Covid-19 Vaccine ( season) [facility] Start: 10-30-2022 Influenza vaccination INFLUENZ A (Season Ended) [facility] Start: 05-12-2022 SHINGRIX VACCINE (2 of 3) DUMAS GRIX VACCINE (2 of 3) [facility] Comment on above: Postponed from 07/18 (Declined at this time) Start: 03-01-2022 ADVANCE DIRECTIVE DISCUSSION ADVANCE DIRECTIVE DISCUSSION [facility] Start: 11-24-2021 COVID-19 VACCINE (5 - Booster for Pfizer series) COVID-19 VACCINE (5 - Booster for Pfizer series) [facility] Start: 10-30-2021 Influenza vaccination INFLUENZA (#1) [facility] Start: 10-22-2021 Patient discharge [facility] Work Phone: Start: 10-21-2021 Following clinical p athway protocol [facility] Work Phone: Start: 10-21-2021 Assessment of risk o f venous thromboembolism [facility] Work Phone: Start: 10-21-2021 Insertion of cathete r into peripheral vein [facility] Work Phone: Start: 10-21-2021 Oxygen therapy [facility] Work Phone: Start: 10-21-2021 Providing care accor ding to standard [facility] Work Phone: Start: 10-21-2021 Provision of activit y privileges [facility] Work Phone: Start: 10-21-2021 Referral to occupati onal therapist [facility] Work Phone: Start: 10-21-2021 Referral to service [facility] Work Phone: Start: 10-21-2021 [facility] Work Phone: Start: 10-21-2021 Verification routine [facility] Work Phone: Start: 10-21-2021 CT angiography of he ad and neck CTA Head AND Neck W/ Contrast [facility] Work Phone: Start: 10-21-2021 CTA Head vessels and Neck vessels W contrast IV [facility] Work Phone: Start: 10-20-2021 [facility] Work Phone: Start: 10-20-2021 Admission procedure [facility] Work Phone: Start: 09-11-2021 COVID-19 VACCINE (4 - Booster for Pfizer series) COVID-19 VACCINE (4 - Booster for Pfizer series) [facility] Start: 08-23-2021 Urine microalbumin profile [facility] Comment on above: Postponed from 07/15 (Declined at this time) Start: 2014 RSV Vaccine (1 - 1-d ose 75+ series) RSV Vaccine (1 - 1-dose 75+ series) [facility] Start: 07-18-2013 SHINGRIX VACCINE (2 of 3) DUMAS GRIX VACCINE (2 of 3) [facility] Start: 07-15-2010 Urine microalbumin profile [facility] Anion gap in Serum o r Plasma [facility] BUN/Creatinine ratio [facility] Calcium [Mass/volume ] in Serum or Plasma [facility] Carbon dioxide, tota l [Moles/volume] in Central venous blood [facility] Creatinine [Mass/vol ume] in Serum or Plasma [facility] CYTOLOGY NON-OFFSET PROOF PRESS OPERATOR CYTOLOGY NON-GY N Lab Routine Gross hematuria Ordered: 07/14/2024 [facility] Work Phone: Comment on above: Ordered: 07/14/2024 Erythrocyte mean corpuscular volume determination [facility] Glucose [Mass/volume ] in Serum or Plasma [facility] Hematocrit [Volume Fraction] of Blood [facility] Hemoglobin [Mass/vol ume] in Blood [facility] Leukocytes [#/volume ] in Blood [facility] Mean corpuscular hemoglobin concentration determination [facility] Mean corpuscular hemoglobin determination [facility] Measurement of renal function [facility] Neutrophil count [facility] Neutrophil percent differential count [facility] Patient Education [facility] Work Phone: Patient referral [facility] Work Phone: Platelets [#/volume] in Blood [facility] Potassium measurement [facility] Red blood cell count [facility] Red cell distributio n width determination [facility] Serum chloride measurement [facility] Sodium measurement [facility] Urea nitrogen [Mass/volume] in Serum or Plasma [facility] Immunizations Immunization Date Immunization Notes Care Provider Louis do 09-29-2021 COVID-19 vaccine, ag e 12+ yr ([facility] - [facility]) Nicolas Cardenas MD Work Phone: [facility] Work Phone: 05-12-2021 COVID-19 vaccine, ag e 12+ yr (PFIZER-BIONTECH - LANGE TOP) Nicolas Cardenas MD Work Phone: [facility] 03-31-2021 influenza, high-dose , quadrivalent vaccine (FLUZONE HIGH DOSE QUADRIVALENT) Nicolas Cardenas MD Work Phone: [facility] Work Phone: 03-31-2021 influenza virus vaccine, unspecified formulation Diana Arango HISTORICAL RECORDS ADMINISTRATOR.RN MEDICARE Work Phone: [facility] 06-17-2020 COVID-19 vaccine, ag e 12+ yr (PFIZER-BIONTECH - PURPLE TOP) Nicolas Cardenas MD Work Phone: [facility] Work Phone: 05-27-2020 COVID-19 vaccine, ag e 12+ yr (PFIZER-BIONTECH - PURPLE TOP) Nicolas Cardenas MD Work Phone: [facility] Work Phone: 04-22-2020 influenza, high-dose , quadrivalent vaccine (FLUZONE HIGH DOSE QUADRIVALENT) Nicolas Cardenas MD Work Phone: [facility] Work Phone: 01-19-2019 influenza, high dose seasonal, preservative-free Nicolas Cardenas MD Work Phone: [facility] 02-03-2018 influenza, high dose seasonal, preservative-free Nicolas Cardenas MD Work Phone: [facility] 01-18-2017 influenza, high dose seasonal, preservative-free Nicolas Cardenas MD Work Phone: [facility] 12-27-2015 influenza, high dose seasonal, preservative-free Nicolas Cardenas MD Work Phone: [facility] 12-26-2014 influenza, high dose seasonal, preservative-free Nicolas Cardenas MD Work Phone: [facility] 06-26-2014 pneumococcal conjuga te vaccine, 13 valent Nicolas Cardenas MD Work Phone: [facility] 12-28-2013 influenza, seasonal, injectable Nicolas Cardenas MD Work Phone: [facility] 05-23-2013 zoster vaccine, live Nicolas Cardenas MD Work Phone: [facility] 07-14-2010 tetanus and diphther ia toxoids, adsorbed, preservative free, for adult use (2 Lf of tetanus toxoid and 2 Lf of diphtheria toxoid) Nicolas Cardenas MD Work Phone: [facility] Work Phone: 01-13-2006 pneumococcal polysaccharide vaccine, 23 valent Nicolas Cardenas MD Work Phone: [facility] Payers Date Payer Category Payer Medicaid [id number] 2024 Self-pay [id number] 2013 Private Health Insurance [facility] AARP SUPPLEMENT [id number] 2013-Present [phone] [address] [place] [address] Indemnity [id number] 2013 Private Health Insurance [id number]. [id number] 2013 Unknown [id number] 2004 Medicare MEDICARE MEDICAR E A AND B [id number] 2004-Present [phone] [place] [address] Medicare [id number]. [id number] 2004 Medicare [id number]. 1.13.159.2. [id number] 2004 Medicare [id number] Private Health Insurance [facility] [id number] Unknown [id number] 2.16.840.1.360942.3.579.2. 462 Unknown [id number] 2.16840.1.366688.3.579.2. 462 Unknown [id number] 2.16.840.1.069045.3.579.2. 462 Unknown [id number] 2.16.840.1.242833.3.579.2. 462 Unknown [id number] 2.16840.1.276838.3.579.2. 462 Unknown [id number] 2.840.1.942795.3.579.2. 462 Unknown [id number] 2.16840.1.988773.3.579.2. 462 Unknown [id number] 2.16.840.1.244447.3.579.2. 462 Unknown [id number] 2.16.840.1.135133.3.579.2. 462 Unknown [id number] 2.840.1.865839.3.579.2. 462 Unknown [id number] 2.16.840.1.651650.3.579.2. 462 Unknown [id number] 2.16.840.1.103734.3.579.2. 462 Unknown [id number] 2.16.840.1.475735.3.579.2. 462 Unknown [id number] 2.16.840.1.125402.3.579.2. 462 Unknown [id number] 2.16.840.1.094348.3.579.2. 462 Unknown [id number] 2.16.840.1.869638.3.579.2. 462 Unknown [id number] 2.16.840.1.447992.3.579.2. 462 Unknown [id number] 2.16.840.1.005076.3.579.2. 462 Unknown [id number] 2.16.840.1.786952.3.579.2. 462 Unknown [id number] 2.16.840.1.863157.3.579.2. 462 Unknown [id number] 2.16.840.1.817551.3.579.2. 462 Unknown [id number] 2.840.1.318387.3.579.2. 462 Unknown [id number] 2.16840.1.119014.3.579.2. 462 Unknown [id number] 2.840.1.310754.3.579.2. 462 Unknown [id number] 2.840.1.016323.3.579.2. 462 Unknown [id number] 2.16840.1.936895.3.579.2. 462 Unknown [id number] 2.16.840.1.339402.3.579.2. 462 Unknown [id number] 2.16840.1.377269.3.579.2. 462 Unknown [id number] 2.16840.1.245935.3.579.2. 462 Unknown [id number] 2.16840.1.653471.3.579.2. 462 Unknown [id number] 2.16840.1.422674.3.579.2. 462 Unknown [id number] 2.16.840.1.740789.3.579.2. 462 Unknown [id number] 2.16.840.1.423406.3.579.2. 462 Unknown [id number] 2.16840.1.610407.3.579.2. 462 Unknown [id number] 2.16.840.1.996013.3.579.2. 462 Unknown [id number] 2.16.840.1.156244.3.579.2. 462 Unknown [id number] 2.16.840.1.745791.3.579.2. 462 Unknown [id number] 2.16.840.1.432729.3.579.2. 462 Unknown [id number] 2.16.840.1.177642.3.579.2. 462 Unknown [id number] 2.16.840.1.318806.3.579.2. 462 Unknown [id number] 2.16.840.1.147691.3.579.2. 462 Unknown [id number] 2.840.1.968504.3.579.2. 462 Unknown [id number] 2.840.1.315728.3.579.2. 462 Unknown [id number] 2.840.1.370498.3.579.2. 462 Unknown [id number] 2.840.1.272443.3.579.2. 462 Unknown [id number] 2.16.840.1.684529.3.579.2. 462 Unknown [id number] 2.840.1.700140.3.579.2. 462 Unknown [id number] 2.16.840.1.466833.3.579.2. 462 Unknown [id number] 2.16.840.1.432001.3.579.2. 462 Unknown [id number] 2.16.840.1.623443.3.579.2. 462 Unknown [id number] 2.16840.1.222066.3.579.2. 462 Unknown [id number] 2.16.840.1.216040.3.579.2. 462 Unknown [id number] 2.16.840.1.874137.3.579.2. 462 Unknown [id number] 2.16.840.1.840243.3.579.2. 462 Unknown [id number] 2.16.840.1.651181.3.579.2. 462 Unknown [id number] 2.16.840.1.191605.3.579.2. 462 Unknown [id number] 2.16840.1.609304.3.579.2. 462 Unknown [id number] 2.16.840.1.190995.3.579.2. 462 Unknown [id number] 2.16840.1.012381.3.579.2. 462 Unknown [id number] 2.840.1.700798.3.579.2. 462 Social History Date Type Detail Facility Start: 04-22-2012 End: 12-15-2024 Tobacco smoking status NHIS Ex-smoker [facility] Start: 03-01-1949 End: 03-01-1959 History of tobacco use Current smoker [facility] Start: 03-01-1949 End: 03-01-1959 History of tobacco use Cigarette Smoker [facility] Start: 05-12-2021 End: 07-14-2024 Alcohol intake Current non-drinker of alcohol (finding) [facility] Start: 1940 Sex Assigned At Not on file [facility] Start: 09-19-2021 End: 09-29-2021 Exposure to SARS-CoV-2 (event) Not sure [facility] Work Phone: Start: 10-21-2021 End: 12-02-2022 Tobacco smoking status [facility] Unknown if ever smoked [facility] Start: 1940 Sex Assigned At Male [facility] Start: 04-22-2012 End: 07-14-2024 Cigarettes smoked current (pack per day) - Reported 1 [facility] Start: 04-22-2012 Tobacco use and exposure Smokeless tobacco non-user [facility] Work Phone: Start: 06-05-2024 End: 06-21-2024 Sex Male (finding) [facility] Start: 02-03-2018 End: 07-14-2024 Tobacco use panel [facility] Adult Depression Screening Assessment 0 [facility] Goals Date Patient Goal Desired Activity /State Functional Status Date Assessment Result Facility 10-22-2021 Functional status Bedrest [facility] Work Phone: 06-26-2014 Are you deaf, or do you have serious difficulty hearing No 06/26/2014 10:08 AM EDT Anjelica Perez [facility] 06-26-2014 Are you blind, or do you have serious difficulty seeing, even when wearing glasses No 06/26/2014 10:08 AM EDT Anjelica Perez [facility] 06-26-2014 Do you have serious difficulty walking or climbing stairs No 06/26/2014 10:08 AM EDT Anjelica Perez [facility] 06-26-2014 Do you have difficul ty dressing or bathing No 06/26/2014 10:08 AM EDT Anjelica Perez [facility] 06-26-2014 Because of a physica l, mental, or emotional condition, do you have difficulty doing errands alone such as visiting a physician's office or shopping No 06/26/2014 10:08 AM EDT Anjelica Perez [facility] Mental Status Date Assessment Result Facility 10-22-2021 Cognitive function Voice/Name [facility] Work Phone: 10-20-2021 Cognitive function Appropriate;Cony starks [facility] Work Phone: 06-26-2014 Because of a physica l, mental, or emotional condition, do you have serious difficulty concentrating, remembering, or making decisions No 06/26/2014 10:08 AM EDT Anjelica Perez [facility] Clinical Notes 09-16-2018 to 11-02-2024 Telephone Encounter - Stefany Mcclure RN - 07/17/2024 11:17 AM EDTTelephone Encounter - Stefany Mcclure RN - 07/17/2024 11:17 AM EDTTelephone Encounter - Stefany Mcclure RN - 07/17/2024 11:14 AM EDT Note Date & Type Note Facility 11-02-2024 Discharge summary [facility] 11-02-2024 Radiology Diagnostic study note [facility] Imaging Services [address] [place], [place] [address] Brain/Head without Contrast MR#: [id number] Acct: [id number] Name: KEL DILLARD Rep #: [id number] : 1940 M 84 From: Viola Allan MD PCP: Dr. David Miramontes MD Status: R EG ER Study:Brain/Head without Contrast Date of Exa m: 11/02/24 Exam# [id number] Ordering Dr: Bibi Leigh MD PROCEDURE: BRAIN/HEAD [...] an acute traumatic brain abnormality. Reading Location: [place] [address] CC: Dr. David Miramontes MD; Dr. Abhinav Leigh MD ~ Compensation Programs Manager: Signed [facility] 11-02-2024 Radiology Diagnostic study note [facility] Imaging Services [address] [place] [address] Spine Cervical without Contras MR#: [id number] Acct: [id number] Name: KEL DILLARD Rep #: [id number] : 1940 M 84 From: Viola Allan MD PCP: Dr. David Miramontes MD Status: R EG ER Study:Spine Cervical without Contras Date of Exam: 11/02/24 Exam# [id number] Ordering Dr: Bibi Leigh MD PROCEDURE: SPINE [...] of an acute traumatic abnormality. Reading Location: [place] [address] CC: Dr. David Miramontes MD; Dr. Abhinav Leigh MD ~ Compensation Programs Manager: Signed [facility] 10-29-2024 Discharge summary [facility] 10-29-2024 Radiology Diagnostic study note [facility] Imaging Services [address] [place] [address] Wrist min 3 Views MR#: [id number] Acct: [id number] Name: KEL DILLARD Rep #: [id number] : 1940 M 84 From: Brodie Martinez MD PCP: Dr. David Miramontes MD Status: R EG ER Study:Wrist min 3 Views Date of Exam: Exam# [id number] Ordering Dr: Bibi Leigh MD PROCEDURE: WRIST [...] acute osseous abnormalities. Mild arthritis. Reading Location: [facility] CC: Dr. David Miramontes MD; Dr. Abhinav Leigh MD ~ Compensation Programs Manager: Signed [facility] 10-29-2024 Radiology Diagnostic study note [facility] Imaging Services [address] [place] [address] Hand Min 3 Views MR#: [id number] Acct: [id number] Name: KEL DILLARD Rep #: [id number] : 1940 M 84 From: Brodie Martinez MD PCP: Dr. David Miramontes MD Status: R EG ER Study:Hand Min 3 Views Date of Exam: Exam# [id number] Ordering Dr: Bibi Leigh MD PROCEDURE: HAND MIN 3 VIEWS 10/29/2024 REASON FOR EXAM: FALL TECHNIQUE: Procedure Code: [id number] Modality: DX Procedure: HAND MIN 3 VIEWS Laterality: Left COMPARISON: None. FINDINGS: Bones: No acute bony abnormalities. Joints: Unremarkable. Soft tissues: No soft tissue abnormalities. RAD/Hand Min 3 Views IMPRESSION: No acute osseous abnormalities. Reading Location: [facility] CC: Dr. David Miramontes MD; Dr. Abhinav Leigh MD ~ Compensation Programs Manager: Signed [facility] 10-27-2024 Radiology Diagnostic study note [facility] Imaging Services [address] [place] [address] Brain/Head without Contrast MR#: [id number] Acct: [id number] Name: KEL DILLARD Rep #: [id number] : 1940 M 84 From: Krzysztof Mariano MD PCP: Dr. David Miramontes MD Status: R EG ER Study:Brain/Head without Contrast Date of Exa m: 10/27/24 Exam# [id number] Ordering Dr: Ira Zarate PROCEDURE: CT BRAIN/HEAD [...] loss and chronic microangiopathic changes. Reading Location: [id number] CC: Dr. David Miramontes MD; ERWIN Phillip ~ Compensation Programs Manager: Signed [facility] 07-17-2024 Telephone encounter Note Spoke with patient's son and notified of information as per provider. He states that they are going to hold off on having tests listed below,. He will let us know if he needs anything or wants test done in the future. Verbalized understanding and has no further questions. Stefany Mcclure RN [facility] Work Phone: 07-17-2024 Miscellaneous Notes Spoke [...] if he wishes. documented in this encounter [facility] 07-17-2024 Telephone encounter Note ----- Message from Diana Arango APRN.CNP sent at 07/17/2024 11:12 AM EDT ----- Please notify patient/patient's son that patient's cytology came back negative for high-grade urothelial carcinoma. This is great news! Given his mentation and mobility -- we could hold off on CT/cysto if he wishes. [facility] 07-14-2024 History of Present illness Narrative Images from the original note were not included. [facility] Urology - Patrick UROL JUAN NEW [...] Date , Taking? , Authorizing Provider Nicolas aCrdenas MD Medication omeprazole (PRILOSEC) 20 mg capsule, [...] (no units) Date Value 08/12/2018 Negative Specific [place], Ur (no units) Date Value 08/12/2018 1.018 [...] intervention based on that result. - CYTOLOGY NON-OFFSET PROOF PRESS OPERATOR - Call son with results. Will make treatment plan decision from there. Follow-up as needed. Diana Arango APRN.RN MEDICARE documented in this encounter [facility] 07-14-2024 Note HNO ID: [id number] Author: DIANA ARANGO APRN.RN MEDICARE Service: ? Author Type: Nurse Practitioner Type: Progress Notes Filed: 07/14/2024 09:11 Note Text: [facility] PATIENT UROLOGY VISIT 07/14/2024 8:51 [...] at baseline. Psychiatric: (more content not included)... [facility] 06-05-2022 Note HNO ID: [id number] Author: Yoli Garner Service: ? Author Type: ? Type: Progress Notes Filed: 06/05/2022 2:00 PM Note Text: POPULATION HEALTH NAVIGATION OUTREACH Action/ 1st attempt: Spoke to patient's daughter. Patient now resides at [facility] and receives medical care there. [...] Yoli Garner June 05, 2022 1:58 PM [facility] 06-05-2022 Note Patient Outreach (JEAN CLAUDE TNAV) ---- KEL DILLARD ([id number]) 1940 M Date Time Provider Department 06/05/22 YOLI GARNER During your visit today, we recorded the following information about you: Yoli Garner 06/05/2022 2:00 PM Signed POPULATION HEALTH NAVIGATION OUTREACH Action/FYI 1st attempt: Spoke to patient's daughter. Patient now resides at [facility] and receives medical care there. [...] Encounter Status:Closed by YOLI GARNER on 06/05/22 [facility] 06-05-2022 History of Present illness Narrative POPULATION HEALTH NAVIGATION OUTREACH Action/ 1st attempt: Spoke to patient's daughter. Patient now resides at [facility] and receives medical care there. [...] 2022 1:58 PM documented in this encounter [facility] 12-11-2021 Miscellaneous Notes Forms pts son brought in have been sent to medical records. Pts son notified. He can pick them up there. Son (Jhonny) calls in and provider message reviewed. Son asking if form brought in can be picked back up in Medical Records. Please contact Jhonny at [phone]. Preethi Delgadillo RN I have not seen him since hospital stay and he is now under the ID attending physician's care. It is more appropriate for the ID attending physician to do another form. More statements need corrected/updated Form to pcp to review. Patient son Jhonny calling said PCP completed expert evaluation form on 09/29 for guardianship and chemical checker said question number 11 needs revised. Son Jhonny said 2 weeks after form was done father had fall and was taken to [facility] then sent to [facility] for rehab. Now father is in memory care unit, his dementia is at 6 out of 7. Son is going to drop off new form to be competed, since father can not care for himself or do anything for himself. Please advise documented in this encounter [facility] 10-23-2021 Miscellaneous Notes Per [facility] discharge info pt was discharged to [facility] 10/22/21. documented in this encounter [facility] 09-29-2021 Note HNO ID: [id number] Author: Nicolas Cardenas MD Service: ? Author Type: Physician Type: Progress Notes Filed: 09/29/2021 6:08 PM Note Text: This note was created using Xumiiriter. Subjective Kel Dillard is a 81 year old male. He was here with his son. He was home bound due to memory loss and cognitive deficits. He gets lost if he wandered outside. Son was here with form requesting guardianship. This was part of POA he was establishing. They were exploring long-term placement in anticipation of need, but Kel [...] vaccine - ICD9: V04.89, ICD10: Z23 - Kwaga-BIONTThumbs Up COVID-19 VACCINE, AGE 12+ YR (LANGE TOP) 6. 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 Form completed. Patient and son indicated understanding and willingness to follow recommendations. Nicolas Cardenas MD [facility] 09-29-2021 Note HNO ID: [id number] Author: Nicolas Cardenas MD Service: ? Author [...] current specialists seen: Pulmonary- Dr. Valle Cardiology- [facility] Office Helper Clerical- [facility] End of Live Planning discussed including [...] and Tdap at pharmacy Nicolas Cardenas MD [facility] 09-29-2021 History of Present illness Narrative This note was created using Xumiiriter. Subjective Kel Dillard is a 81 year old male. He was here with his son. He was home bound due to memory loss and cognitive deficits. He gets lost if he wandered outside. Son was here with form requesting guardianship. This was part of POA he was establishing. They were exploring long-term placement in anticipation of need, but Kel [...] current specialists seen: Pulmonary- Dr. Valle Cardiology- [facility] Office Helper Clerical- [facility] End of Live Planning discussed including [...] Nicolas Cardenas MD documented in this encounter [facility] 07-15-2021 Miscellaneous Notes Yesenia, Admissions staff member at [facility] calling to state patient's son Jhonny has reached out to them to request patient possibly be admitted into their memory care unit due to cognition concerns. Yesenia is requesting notes from patient's last OV be faxed to them at [phone]. This nurse contacted son Jhonny to verify the request and he confirmed it was ok to share requested information. Information faxed as requested. Karen Matias RN documented in this encounter [facility] 09-16-2018 History of Past i llness [...] of this encounter (statuses as of 07/15/2021) [facility] History of Past illness Narrative* Problem [...] of this encounter (statuses as of 09/29/2021) [facility] History of Past illness Narrative* Problem [...] of this encounter (statuses as of 10/23/2021) [facility] History of Past illness Narrative* Problem [...] of this encounter (statuses as of 12/11/2021) [facility] History of Past illness Narrative* Problem [...] of this encounter (statuses as of 06/05/2022) [facility] Abhinav Leigh [facility] Note Date/Time October 29, 2024 11 :26am [facility] Medical Records Department [address] [place] [address] Emergency Department Summary 10/29/24 MR#: [id number] Acct: [id number] Name: KEL DILLARD Rep #:[id number] 9 : 1940 84 From: Abhinav Leigh [...] wrist and hand. But he has good gym instructor strength bilaterally. There is no significant tenderness [...] male fell 2 days ago at the long-term was evaluated at that time for head [...] did speak to a nurse at [facility]. No other complaints today has not been ill has not had a fever. Patient himself denies any complaints. Repeat exam is unchanged at 11:26 AM.. [facility]. we will make sure they [...] This is all from arthritis. Print Language: Hebrew Disposition Disposition: Home, Self Care What to do if you have Problems For any increased pain, shortness of breath, bleeding, nausea or vomiting, chestpain, or any unexpected problems, contact your Primary Care Provider. Call [facility] ([phone]) or report to the closest Emergency Room. Call 911 if necessary. 10/29/24 1126 <Electronically signed by Abhinav Leigh MD> Cosigner Signature (if applicable): CC: Dr. David Miramontes MD ~ Signed [facility] Work Phone: Discharge summary Author Abhinav Leigh [facility] Note Date/Time November 02, 2024 5:15am [facility] Medical Records Department [address] [place] [address] Emergency Department Summary 11/02/24 MR#: [id number] Acct: [id number] Name: KEL DILLARD Rep #:[id number] 1 : 1940 84 From: Abhinav Leigh [...] extended care facility. He is currently at [facility]. Tonight they found him in his room on the floor. It was an unwitnessed fall. No idea if he had any LOC. When they went to move himhe reportedly had neck pain even though currently has no complaints. [facility] Patient's been seen at least 3-4 times in the last several weeks for falls. Prior similar symptoms: Yes Recent [facility] Medical History Alzheimers disease Former smoker Dementia [...] Abdomen soft nontender. Movingall 4 extremities. 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 Dorsi plantarflexion intact. He can flex [...] an acute traumatic brain abnormality. [facility] 11/02/24 03:56 IMPRESSION: No CT evidence of an acute traumatic abnormality. [facility] brain without contrast shows [...] with either his doctor or your medical pathology teacher to discuss if he should remain on anticoagulation due to his history of the falls you may want toconsider taking him off of the Eliquis. Print Language: Hebrew Disposition Disposition: Home, Self Care What to do if you have Problems For any increased pain, shortness of breath, bleeding, nausea or vomiting, chestpain, or any unexpected problems, contact your Primary Care Provider. Call [facility] ([phone]) or report to the closest Emergency Room. Call 911 if necessary. 11/02/24 0515 <Electronically signed by Abhinav Leigh MD> Cosigner Signature (if applicable): CC: Dr. 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 Ice and take Tylenol every 6 hours as needed.[facility] Work Phone: Hospital Discharge instructionsAdditional Instructions Follow-up with your doctor as needed. Ice to his wrist and hand There is no broken bone in his wrist or hand. This is all from arthritis.[facility] Work Phone: Hospital Discharge instructionsAdditional Instructions Tylenol for pain. CAT scans tonight of his head and neck were negative. 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 anation Advance Directive(s) 04/29/2021 2:28 PM Advance Directive(s) 09/08/2016 1:42 PM Advance Directive(s) 08/31/2016 10:18 AM Advance Directive(s) 04/09/2016 12:30 PM Advance Directive(s) 04/06/2016 10:07 AM Advance Directive(s) 10/09/2011 11:10 AM Advance Directive Response Recorded Date/ Time Advance Directives No October 10:42am Living Will No October 20 8:26pm Power of Test Inspection Engineer No October 20 022 8:26pm Advance Directive Response Recorded Date/ Time Advance Directives No October 10:42am Living Will No October 21 1:16am Power of Test Inspection Engineer No October 21 022 1:16am Documents on File Type Date Recorded 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 anation Advance Directive(s) 04/29/2021 2:28 PM Advance Directive(s) 10/09/2011 11:10 AM Advance Directive Response Recorded Date/ Time Advance Directives No April 02, 2022 2:41pm Living Will No April 02 2:41pm Power of Test Inspection Engineer No April 02, 2022 2:41pm Advance Directive Response Recorded Date/ Time Advance Directives No April 02, 2022 3:41pm Living Will No April 02 3:41pm Power of Test Inspection Engineer No April 02, 2022 3:41pm Advance Directive Response Recorded Date/ Time Advance Directives No December 02, 2022 9:40am Living Will No December 02 9:40am Power of Test Inspection Engineer No December 02, 023 9:40am Advance Directive [...] Do you have a Healthcare Power of Test Inspection Engineer? Yes October 27, 2024 8:39pm Advance Directive Response Recorded Date/ Time Advance Directives No September 15 1:51pm Do you have a Healthcare Power of Test Inspection Engineer? Yes October 27, 2024 8:39pm Do you have a Healthcare Power of Test Inspection Engineer? Yes October 29, 2024 9:57am Name of Medical Power of Test Inspection Engineer Jhonny Dillard October 29, 2024 9:57am Advance Directive Response Recorded Date/ Time Advance Directives No September 15 1:51pm Do you have a Healthcare Power of Test Inspection Engineer? Yes October 27, 2024 8:39pm Do you have a Healthcare Power of Test Inspection Engineer? No November 02, 2024 3:46am Do you have a Healthcare Power of Test Inspection Engineer? Yes October 29, 2024 9:57am Name of Medical Power of Test Inspection Engineer Jhonny Dillard October 29, 2024 9:57am Advance Directive Response Recorded Date/ Time Advance Directives No December 15, 2024 8:00am Do you have a Healthcare Power of Test Inspection Engineer? Yes October 27, 2024 8:39pm Do you have a Healthcare Power of Test Inspection Engineer? No November 02, 2024 3:46am Do you have a Healthcare Power of Test Inspection Engineer? Yes October 29, 2024 9:57am Name of Medical Power of Test Inspection Engineer Jhonny Dillard October 29, 2024 9:57am Chief [...] DEBILITY FALL, DEBILITY LAB WORK LAB WORK LONG TERM LAB WORK MONTHLY EXAM Chief Complaint FALL, DEBILITY FALL, DEBILITY FALL, DEBILITY FALL, DEBILITY LAB WORK LAB WORK LONG TERM LAB WORK LONG TERM LABWORK MONTHLY EXAM Chief Complaint FALL, DEBILITY FALL, DEBILITY FALL, DEBILITY FALL, DEBILITY LAB WORK LAB WORK LONG TERM LAB WORK LONG TERM LABWORK MONTHLY EXAM LONG TERM LAB WORK Chief Complaint LONG TERM LAB WOR K MONTHLY EXAM LONG TERM LAB WORK MONTHLY EXAM MONTHLY EXAM LONG TERM LAB WORK Chief Complaint MONTHLY EXAM LONG TERM LAB WORK MONTHLY EXAM new problem MONTHLY EXAM LONG TERM LABWORK Chief Complaint MONTHLY EXAM LONG TERM LAB WORK MONTHLY EXAM ANNUAL EXAM MONTHLY EXAM LONG TERM LAB WORK Chief Complaint LONG TERM LAB WOR K NEW CONCERN MONTHLY EXAM LABWORK Chief Complaint Admit Date Pacer Check Remote February 14, 2024 12:11am MONTHLY EXAM February 15, 2024 9:13pm MONTHLY EXAM March 02, 2024 11 :09am NEW CONCERN March 13, 2024 1 :23pm LONG TERM LAB WORK April 04, 2024 5:00am LONG TERM LAB WORK April 07, 2024 4:00am LONG TERM LAB WORK April 07, 2024 10:45am MONTHLY EXAM April 11, 2024 12:58pm LONG TERM LAB WORK April 13 5:00am LABWORK April [...] NEW CONCERN March 13, 2024 1 :23pm LONG TERM LAB WORK April 04, 2024 5:00am LONG TERM LAB WORK April 07, 2024 4:00am LONG TERM LAB WORK April 07, 2024 10:45am MONTHLY EXAM April 11, 2024 12:58pm LONG TERM LAB WORK April 13 5:00am LABWORK April [...] NEW CONCERN March 13, 2024 1 :23pm LONG TERM LAB WORK April 04, 2024 5:00am LONG TERM LAB WORK April 07, 2024 4:00am LONG TERM LAB WORK April 07, 2024 10:45am MONTHLY EXAM April 11, 2024 12:58pm LONG TERM LAB WORK April 13 5:00am LABWORK April [...] NEW CONCERN March 13, 2024 1 :23pm LONG TERM LAB WORK April 04, 2024 5:00am LONG TERM LAB WORK April 07, 2024 4:00am LONG TERM LAB WORK April 07, 2024 10:45am MONTHLY EXAM April 11, 2024 12:58pm LONG TERM LAB WORK April 13 5:00am LABWORK April [...] TOES PVD May 30, 2024 8:36 am LONG TERM LAB WORK June 05, 2024 4: 00am Chief Complaint Admit Date LONG TERM LAB WORK April 04, 2024 5:00am LONG TERM LAB WORK April 07, 2024 4:00am LONG TERM LAB WORK April 07, 2024 10:45am MONTHLY EXAM MD April 11, 2024 12:58pm LONG TERM LAB WORK April 13 5:00am LABWORK April [...] TOES PVD May 30, 2024 8:36 am LONG TERM LAB WORK June 05, 2024 4: 00am [...] TOES PVD May 30, 2024 8:36 am LONG TERM LAB WORK June 05, 2024 4: 00am LABWORK June 23, 2024 5:0 0am LABWORK July 21, 2024 5:00a m LONG TERM LAB WORK August 01, 2024 5:0 0am [...] TOES PVD May 30, 2024 8:36 am LONG TERM LAB WORK June 05, 2024 4: 00am LABWORK June 23, 2024 5:0 0am MONTHLY EXAM July 18, 2024 3:15p m LABWORK July 21, 2024 5:00a m LONG TERM LAB WORK August 01, 2024 5:0 0am [...] TOES PVD May 30, 2024 8:36 am LONG TERM LAB WORK June 05, 2024 4: 00am LABWORK June 23, 2024 5:0 0am MONTHLY EXAM July 18, 2024 3:15p m NEW PROBLEM/CONCERN July 20, 2024 3:45p m LABWORK July 21, 2024 5:00a m LONG TERM LAB WORK August 01, 2024 5:0 0am [...] TOES PVD May 30, 2024 8:36 am LONG TERM LAB WORK June 05, 2024 4: 00am LABWORK June 23, 2024 5:0 0am MONTHLY EXAM July 18, 2024 3:15p m NEW PROBLEM/CONCERN July 20, 2024 3:45p m LABWORK July 21, 2024 5:00a m LONG TERM LAB WORK August 01, 2024 5:0 0am [...] TOES PVD May 30, 2024 8:36 am LONG TERM LAB WORK June 05, 2024 4: 00am LABWORK June 23, 2024 5:0 0am MONTHLY EXAM July 18, 2024 3:15p m NEW PROBLEM/CONCERN July 20, 2024 3:45p m LABWORK July 21, 2024 5:00a m LONG TERM LAB WORK August 01, 2024 5:0 0am [...] TOES PVD May 30, 2024 8:36 am LONG TERM LAB WORK June 05, 2024 4: 00am LABWORK June 23, 2024 5:0 0am MONTHLY EXAM July 18, 2024 3:15p m NEW PROBLEM/CONCERN July 20, 2024 3:45p m LABWORK July 21, 2024 5:00a m LONG TERM LAB WORK August 01, 2024 5:0 0am [...] TOES PVD May 30, 2024 8:36 am LONG TERM LAB WORK June 05, 2024 4: 00am LABWORK June 23, 2024 5:0 0am NEW CONCERN July 04, 2024 4:35pm MONTHLY EXAM July 18, 2024 3:15p m NEW PROBLEM/CONCERN July 20, 2024 3:45p m LABWORK July 21, 2024 5:00a m LONG TERM LAB WORK August 01, 2024 5:0 0am LABWORK August 02, 2024 5:00a m MONTHLY EXAM August 15, 2024 7:30 pm Pacer Check Remote August 21, 2024 4:29 am NEW CONCERN August 21, 2024 3:15 pm LONG TERM LAB WORK August 22, 2024 5: 00am NEW CONCERN August 25, 2024 2:15 pm LABWORK August 31, 2024 5:00a m LONG TERM LAB WORK September 07, 2024 5: 00am Chief Complaint Admit Date LABWORK June 23, 2024 5:0 0am NEW CONCERN July 04, 2024 4:35pm MONTHLY EXAM July 18, 2024 3:15p m NEW PROBLEM/CONCERN July 20, 2024 3:45p m LABWORK July 21, 2024 5:00a m LONG TERM LAB WORK August 01, 2024 5:0 0am LABWORK August 02, 2024 5:00a m MONTHLY EXAM August 15, 2024 7:30 pm Pacer Check Remote August 21, 2024 4:29 am NEW CONCERN August 21, 2024 3:15 pm LONG TERM LAB WORK August 22, 2024 5: 00am NEW CONCERN August 25, 2024 2:15 pm Monthly Exam August 29, 2024 4:04p m LABWORK August 31, 2024 5:00a m LONG TERM LAB WORK September 07, 2024 5: 00am Chief Complaint Admit Date LABWORK June 23, 2024 5:0 0am NEW CONCERN July 04, 2024 4:35pm MONTHLY EXAM July 18, 2024 3:15p m NEW PROBLEM/CONCERN July 20, 2024 3:45p m LABWORK July 21, 2024 5:00a m LONG TERM LAB WORK August 01, 2024 5:0 0am LABWORK August 02, 2024 5:00a m MONTHLY EXAM August 15, 2024 7:30 pm Pacer Check Remote August 21, 2024 4:29 am NEW CONCERN August 21, 2024 3:15 pm LONG TERM LAB WORK August 22, 2024 5: 00am NEW CONCERN August 25, 2024 2:15 pm Monthly Exam August 29, 2024 4:04p m LABWORK August 31, 2024 5:00a m LONG TERM LAB WORK September 07, 2024 5: 00am New Concern September 19, 2024 7:48 am Chief Complaint Admit Date LABWORK June 23, 2024 5:0 0am NEW CONCERN July 04, 2024 4:35pm MONTHLY EXAM July 18, 2024 3:15p m NEW PROBLEM/CONCERN July 20, 2024 3:45p m LABWORK July 21, 2024 5:00a m LONG TERM LAB WORK August 01, 2024 5:0 0am LABWORK August 02, 2024 5:00a m MONTHLY EXAM August 15, 2024 7:30 pm Pacer Check Remote August 21, 2024 4:29 am NEW CONCERN August 21, 2024 3:15 pm LONG TERM LAB WORK August 22, 2024 5: 00am NEW CONCERN August 25, 2024 2:15 pm Monthly Exam August 29, 2024 4:04p m LABWORK August 31, 2024 5:00a m LONG TERM LAB WORK September 07, 2024 5: 00am New Concern September 19, 2024 7:48 am New Concern September 25, 2024 4:26 pm Chief Complaint Admit Date NEW CONCERN July 04, 2024 4:35pm MONTHLY EXAM July 18, 2024 3:15p m NEW PROBLEM/CONCERN July 20, 2024 3:45p m LABWORK July 21, 2024 5:00a m LONG TERM LAB WORK August 01, 2024 5:0 0am LABWORK August 02, 2024 5:00a m MONTHLY EXAM August 15, 2024 7:30 pm Pacer Check Remote August 21, 2024 4:29 am NEW CONCERN August 21, 2024 3:15 pm LONG TERM LAB WORK August 22, 2024 5: 00am NEW CONCERN August 25, 2024 2:15 pm Monthly Exam August 29, 2024 4:04p m LABWORK August 31, 2024 5:00a m LONG TERM LAB WORK September 07, 2024 5: 00am New Concern September 19, 2024 7:48 am LONG TERM LAB WORK September 25, 2024 12 :00pm New Concern September 25, 2024 4:26 pm MONTHLY EXAM September 29, 2024 11: 44am Chief Complaint Admit Date NEW CONCERN July 04, 2024 4:35pm MONTHLY EXAM July 18, 2024 3:15p m NEW PROBLEM/CONCERN July 20, 2024 3:45p m LABWORK July 21, 2024 5:00a m LONG TERM LAB WORK August 01, 2024 5:0 0am LABWORK August 02, 2024 5:00a m MONTHLY EXAM August 15, 2024 7:30 pm Pacer Check Remote August 21, 2024 4:29 am NEW CONCERN August 21, 2024 3:15 pm LONG TERM LAB WORK August 22, 2024 5: 00am NEW CONCERN August 25, 2024 2:15 pm Monthly Exam August 29, 2024 4:04p m LABWORK August 31, 2024 5:00a m LONG TERM LAB WORK September 07, 2024 5: 00am New Concern September 19, 2024 7:48 am LONG TERM LAB WORK September 25, 2024 12 :00pm New Concern September 25, 2024 4:26 pm MONTHLY EXAM September 29, 2024 11: 44am fall, head injury, on thinners October 272024 8:34pm Chief Complaint Admit Date NEW CONCERN July 04, 2024 4:35pm MONTHLY EXAM July 18, 2024 3:15p m NEW PROBLEM/CONCERN July 20, 2024 3:45p m LABWORK July 21, 2024 5:00a m LONG TERM LAB WORK August 01, 2024 5:0 0am LABWORK August 02, 2024 5:00a m MONTHLY EXAM August 15, 2024 7:30 pm Pacer Check Remote August 21, 2024 4:29 am NEW CONCERN August 21, 2024 3:15 pm LONG TERM LAB WORK August 22, 2024 5: 00am NEW CONCERN August 25, 2024 2:15 pm Monthly Exam August 29, 2024 4:04p m LABWORK August 31, 2024 5:00a m LONG TERM LAB WORK September 07, 2024 5: 00am New Concern September 19, 2024 7:48 am LONG TERM LAB WORK September 25, 2024 12 :00pm New Concern September 25, 2024 4:26 pm MONTHLY EXAM September 29, 2024 11: 44am fall, head injury, on thinners October 272024 8:34pm wrist injury October 29, 2024 9: 51am Chief Complaint Admit Date MONTHLY EXAM July 18, 2024 3:15p m NEW PROBLEM/CONCERN July 20, 2024 3:45p m LABWORK July 21, 2024 5:00a m LONG TERM LAB WORK August 01, 2024 5:0 0am LABWORK August 02, 2024 5:00a m MONTHLY EXAM August 15, 2024 7:30 pm Pacer Check Remote August 21, 2024 4:29 am NEW CONCERN August 21, 2024 3:15 pm LONG TERM LAB WORK August 22, 2024 5: 00am NEW CONCERN August 25, 2024 2:15 pm Monthly Exam August 29, 2024 4:04p m LABWORK August 31, 2024 5:00a m LONG TERM LAB WORK September 07, 2024 5: 00am New Concern September 19, 2024 7:48 am LONG TERM LAB WORK September 25, 2024 12 :00pm [...] NEW CONCERN August 21, 2024 3:15 pm LONG TERM LAB WORK August 22, 2024 5: 00am NEW CONCERN August 25, 2024 2:15 pm Monthly Exam August 29, 2024 4:04p m LABWORK August 31, 2024 5:00a m LONG TERM LAB WORK September 07, 2024 5: 00am New Concern September 19, 2024 7:48 am LONG TERM LAB WORK September 25, 2024 12 :00pm [...] m LABWORK August 31, 2024 5:00a m LONG TERM LAB WORK September 07, 2024 5: 00am New Concern September 19, 2024 7:48 am LONG TERM LAB WORK September 25, 2024 12 :00pm [...] Pacer Check Remote November 20, 2024 10:38am LONG TERM LAB WORK November 22 5:40am Family History [...] or prosecute any alcohol or drug abuse patient.[facility] the event this information is protected by the Federal Confidentiality of Alcohol and Drug Abuse Patient Records regulations: The Federal rules restrict any use of the information to criminally investigate or prosecute any alcohol or drug abuse patient.[facility] the event this information is protected by the Federal Confidentiality of Alcohol and Drug Abuse Patient Records regulations: The Federal rules restrict any use of the information to criminally investigate or prosecute any alcohol or drug abuse patient.[facility] the event this information is protected by the Federal Confidentiality of Alcohol and Drug Abuse Patient Records regulations: The Federal rules restrict any use of the information to criminally investigate or prosecute any alcohol or drug abuse patient.[facility] Hospital[facility] the event this information is protected by the Federal Confidentiality of Alcohol and Drug Abuse Patient Records regulations: The Federal rules restrict any use of the information to criminally investigate or prosecute any alcohol or drug abuse patient.[facility] Hospital[facility] the event this information is protected by the Federal Confidentiality of Alcohol and Drug Abuse Patient Records regulations: The Federal rules restrict any use of the information to criminally investigate or prosecute any alcohol or drug abuse patient.[facility] Hospital[facility] the event this information is protected by the Federal Confidentiality of Alcohol and Drug Abuse Patient Records regulations: The Federal rules restrict any use of the information to criminally investigate or prosecute any alcohol or drug abuse patient.[facility] Reason for Visit (unrecogniz ed section [...] 2024 End: April 19, 2024 Marimar Zimmer JUMP ROLL OPERATOR, JUMP ROLL OPERATOR-C Attending Provider Active Start: April 19, 2024 End: April 19, 2024 Team Status: Inactive Member Role Status Dates Dr. David Miramontes MD Primary Care Provider Active Start: May 01, 2024 End: May 01, 2024 Marimar Zimmer JUMP ROLL OPERATOR, JUMP ROLL OPERATOR-C Attending Provider Active Start: May 01, 2024 End: May 01, 2024 Team Status: Inactive Member Role Status Dates Dr. David Miramontes MD Primary Care Provider Active Start: May 11, 2024 End: May 11, 2024 Marimar Zimmer JUMP ROLL OPERATOR, JUMP ROLL OPERATOR-C Attending Provider Active Start: May 11, 2024 [...] 2024 End: May 18, 2024 Marimar Zimmer JUMP ROLL OPERATOR, JUMP ROLL OPERATOR-C Attending Provider Active Start: May 18, 2024 [...] Active Member Role Status Dates Dr. David Mirmaontes MD Primary Care Provider Active Start: May [...] June 23, 2024 End: June 23, 2024 Usability Engineer Relationship Specialty Start Date End Date Nicolas Cardenas MD [address] [place] [address] PCP - General 02/12/03 Usability Engineer Relationship Specialty Start Date End Date Nicolas Cardenas MD [address] [place] [address] PCP - General 02/12/03 Usability Engineer Relationship Specialty Start Date End Date Nicolas Cardenas MD [address] [place] [address] PCP - General 02/12/03 Usability Engineer Relationship Specialty Start Date End Date Nicolas Cardenas MD [address] [place] [address] PCP - General 02/12/03 Team Status: Active Member Role Status Dates Dr. Nicolas Cardenas MD Family Provider Active Dr. Nicolas Cardenas MD Primary Care Provider Active Team Status: Inactive Member Role Status Dates Dr. Nicolas Cardenas MD Primary Care Provider Active Marimar Zimmer JUMP ROLL OPERATOR, JUMP ROLL OPERATOR-C Attending Provider Active Team Status: Inactive Member [...] 2024 End: March 13, 2024 Marimar Zimmer JUMP ROLL OPERATOR, JUMP ROLL OPERATOR-C Attending Provider Active Start: March 13, 2024 [...] End: May 01, 2024 Marimar Zimmer NP, JUMP ROLL OPERATOR-C Attending Provider Active Start: May 01, 2024 End: May 01, 2024 Team Status: Inactive Member Role/Relationship Status Dates Dr. David Miramontes MD Primary Care Provider Active Start: May 11, 2024 End: May 11, 2024 Marimar Zimmer NP, JUMP ROLL OPERATOR-C Attending Provider Active Start: May 11, 2024 [...] 2024 End: May 18, 2024 Marimar Zimmer JUMP ROLL OPERATOR, JUMP ROLL OPERATOR-C Attending Provider Active Start: May 18, 2024 [...] 2024 End: May 30, 2024 Marimar Zimmer JUMP ROLL OPERATOR, JUMP ROLL OPERATOR-C Attending Provider Active Start: May 30, 2024 [...] 2024 End: May 18, 2024 Marimar Zimmer JUMP ROLL OPERATOR, JUMP ROLL OPERATOR-C Attending Provider Active Start: May 18, 2024 [...] 2024 End: May 30, 2024 Marimar Zimmer JUMP ROLL OPERATOR, JUMP ROLL OPERATOR-C Attending Provider Active Start: May 30, 2024 [...] Inactive Member Role/Relationship Status Dates Marimar Zimmer JUMP ROLL OPERATOR, JUMP ROLL OPERATOR-C Attending Provider Active Start: July 20, 2024 [...] 2024 End: August 15, 2024 Marimar Zimmer JUMP ROLL OPERATOR, JUMP ROLL OPERATOR-C Attending Provider Active Start: August 15, 2024 [...] 2024 End: August 21, 2024 Marimar Zimmer JUMP ROLL OPERATOR, JUMP ROLL OPERATOR-C Attending Provider Active Start: August 21, 2024 [...] 2024 End: August 25, 2024 Marimar Zimmer JUMP ROLL OPERATOR, JUMP ROLL OPERATOR-C Attending Provider Active Start: August 25, 2024 [...] 2024 End: May 30, 2024 Marimar Zimmer JUMP ROLL OPERATOR, JUMP ROLL OPERATOR-C Attending Provider Active Start: May 30, 2024 [...] Status: Inactive Member Role/Relationship Status Dates Dr. Davdi Miramontes MD Primary Care Provider Active Start: July 04, 2024 End: July 04, 2024 Marimar Zimmer JUMP ROLL OPERATOR, JUMP ROLL OPERATOR-C Attending Provider Active Start: July 04, 2024 End: July 04, 2024 Team Status: Inactive Member Role/Relationship Status Dates Dr. David Miramontes MD Primary Care Provider Active Start: July 18, 2024 End: July 18, 2024 Dr. David Miramontes MD Attending Provider Active Start: July 18, 2024 End: July 18, 2024 Team Status: Inactive Member Role/Relationship Status Dates Marimar Zimmer JUMP ROLL OPERATOR, JUMP ROLL OPERATOR-C Attending Provider Active Start: July 20, 2024 [...] 2024 End: August 15, 2024 Marimar Zimmer JUMP ROLL OPERATOR, JUMP ROLL OPERATOR-C Attending Provider Active Start: August 15, 2024 [...] 2024 End: August 21, 2024 Marimar Zimmer JUMP ROLL OPERATOR, JUMP ROLL OPERATOR-C Attending Provider Active Start: August 21, 2024 End: August 21, 2024 Team Status: Inactive Member Role/Relationship Status Dates Dr. David Miramontes MD Primary Care Provider Active Start: August 25, 2024 End: August 25, 2024 Marimar Zimmer JUMP ROLL OPERATOR, JUMP ROLL OPERATOR-C Attending Provider Active Start: August 25, 2024 [...] 2024 End: July 04, 2024 Marimar Zimmer JUMP ROLL OPERATOR, JUMP ROLL OPERATOR-C Attending Provider Active Start: July 04, 2024 End: July 04, 2024 Team Status: Inactive Member Role/Relationship Status Dates Dr. David Miramontes MD Primary Care Provider Active Start: July 18, 2024 End: July 18, 2024 Dr. David Miramontes MD Attending Provider Active Start: July 18, 2024 End: July 18, 2024 Team Status: Inactive Member Role/Relationship Status Dates Marimar Zimmer JUMP ROLL OPERATOR, JUMP ROLL OPERATOR-C Attending Provider Active Start: July 20, 2024 [...] End: August 15, 2024 Marimar Zimmer NP JUMP ROLL OPERATOR-C Attending Provider Active Start: August 15, 2024 [...] End: August 21, 2024 Marimar Zimmer NP JUMP ROLL OPERATOR-C Attending Provider Active Start: August 21, 2024 [...] 2024 End: August 25, 2024 Marimar Zimmer JUMP ROLL OPERATOR, JUMP ROLL OPERATOR-C Attending Provider Active Start: August 25, 2024 [...] End: September 19, 2024 Marimar Zimmer NP, JUMP ROLL OPERATOR-C Attending Provider Active Start: September 19, 2024 [...] 2024 End: September 25, 2024 Marimar Zimmer JUMP ROLL OPERATOR, JUMP ROLL OPERATOR-C Attending Provider Active Start: September 25, 2024 End: September 25, 2024 Team Status: Inactive Member Role/Relationship Status Dates Dr. David Miramontes MD Primary Care Provider Active Start: July 04, 2024 End: July 04, 2024 Marimar Tickton JUMP ROLL OPERATOR, JUMP ROLL OPERATOR-C Attending Provider Active Start: July 04, 2024 End: July 04, 2024 Team Status: Inactive Member Role/Relationship Status Dates Dr. David Miramontes MD Primary Care Provider Active Start: July 18, 2024 End: July 18, 2024 Dr. David Miramontes MD Attending Provider Active Start: July 18, 2024 End: July 18, 2024 Team Status: Inactive Member Role/Relationship Status Dates Marimar Zimmer JUMP ROLL OPERATOR, JUMP ROLL OPERATOR-C Attending Provider Active Start: July 20, 2024 [...] 2024 End: August 15, 2024 Marimar Zimmer JUMP ROLL OPERATOR, JUMP ROLL OPERATOR-C Attending Provider Active Start: August 15, 2024 [...] 2024 End: August 21, 2024 Marimar Zimmer JUMP ROLL OPERATOR, JUMP ROLL OPERATOR-C Attending Provider Active Start: August 21, 2024 [...] 2024 End: August 25, 2024 Marimar Zimmer JUMP ROLL OPERATOR, JUMP ROLL OPERATOR-C Attending Provider Active Start: August 25, 2024 [...] 2024 End: September 19, 2024 Marimar Zimmer JUMP ROLL OPERATOR, JUMP ROLL OPERATOR-C Attending Provider Active Start: September 19, 2024 End: September 19, 2024 Team Status: Inactive Member Role/Relationship Status Dates Dr. David Miramontes MD Primary Care Provider Active Start: September 25, 2024 End: September 25, 2024 Marimar Zimmer JUMP ROLL OPERATOR, JUMP ROLL OPERATOR-C Attending Provider Active Start: September 25, 2024 End: September 25, 2024 Team Status: Inactive Member Role/Relationship Status Dates Dr. David Miramontes MD Primary Care Provider Active Start: September 29, 2024 End: September 29, 2024 Dasia Barrett JUMP ROLL OPERATOR-C Attending Provider Active Start: September 29, 2024 [...] Member Role/Relationship Status Dates Marimar Zimmer NP, JUMP ROLL OPERATOR-C Attending Provider Active Start: July 20, 2024 [...] 2024 End: August 15, 2024 Marimar Zimmer JUMP ROLL OPERATOR, JUMP ROLL OPERATOR-C Attending Provider Active Start: August 15, 2024 [...] 2024 End: August 21, 2024 Marimar Zimmer JUMP ROLL OPERATOR, JUMP ROLL OPERATOR-C Attending Provider Active Start: August 21, 2024 [...] 2024 End: August 25, 2024 Marimar Zimmer JUMP ROLL OPERATOR, JUMP ROLL OPERATOR-C Attending Provider Active Start: August 25, 2024 [...] End: September 19, 2024 Marimar Zimmer NP, JUMP ROLL OPERATOR-C Attending Provider Active Start: September 19, 2024 [...] End: September 25, 2024 Marimar Zimmer NP, JUMP ROLL OPERATOR-C Attending Provider Active Start: September 25, 2024 End: September 25, 2024 Team Status: Inactive Member Role/Relationship Status Dates Dr. David Miramontes MD Primary Care Provider Active Start: September 29, 2024 End: September 29, 2024 Dasia Barrett JUMP ROLL OPERATOR-C Attending Provider Active Start: September 29, 2024 [...] 2024 End: August 15, 2024 Marimar Zimmer JUMP ROLL OPERATOR JUMP ROLL OPERATOR-C Attending physician Active Start: August 15, 2024 [...] 2024 End: August 21, 2024 Marimar Zimmer JUMP ROLL OPERATOR JUMP ROLL OPERATOR-C Attending physician Active Start: August 21, 2024 [...] 2024 End: August 25, 2024 Marimar Zimmer JUMP ROLL OPERATOR JUMP ROLL OPERATOR-C Attending physician Active Start: August 25, 2024 [...] End: September 19, 2024 Marimar Zimmer NP, JUMP ROLL OPERATOR-C Attending physician Active Start: September 19, 2024 [...] End: September 25, 2024 Marimar Zimmer NP, JUMP ROLL OPERATOR-C Attending physician Active Start: September 25, 2024 [...] 02, 2024 Dr. [facility] Active Start: November 02, [...] End: September 19, 2024 Marimar Zimmer NP, JUMP ROLL OPERATOR-C Attending physician Active Start: September 19, 2024 [...] End: September 25, 2024 Marimar Zimmer NP JUMP ROLL OPERATOR-C Attending physician Active Start: September 25, 2024 [...] 27, 2024 Dr. [facility] Active Start: October 27, 2024 End: October 27, 2024 Team Status: Inactive Member Role/Relationship Status Dates Dr. David Miramontes MD Primary care physician Activ e Start: October 29, 2024 End: October 29, 2024 Dr. Abhinav Leigh MD Attending physician Active Start: October 29, 2024 End: October 29, 2024 Dr. [facility]hin[facility] Active Start: October 29, [...] 02, 2024 Dr. Abhinav Leigh MD Emergency [facility] t Physician Active Start: November 02, 2024 End: November 02, 2024 Team Status: Inactive Member Role/Relationship Status Dates Dr. David Miramontes MD Primary care physician Activ e Start: November 02, 2024 End: November 02, 2024 Marimar Zimmer NP, JUMP ROLL OPERATOR-C Attending physician Active Start: November 02, 2024 End: November 02, 2024 Team Status: Inactive Member Role/Relationship Status Dates Dr. David Miramontes MD Primary care physician Activ e Start: November 03, 2024 End: November 03, 2024 Marimar Zimmer NP, JUMP ROLL OPERATOR-C Attending physician Active Start: November 03, 2024 [...] and content) DATE CREATED AUTHOR 06/08/2022 [facility] DATE CREATED AUTHOR AUTHOR'S ORGANIZ ATION 07/17/2024 [facility] DATE CREATED AUTHOR AUTHOR'S ORGANIZ ATION 01/11/2025 [facility] FOR RECORDS PERTAINING TO PATIENTS WHO [...] BE BASED ON THE PRIMARY CLINICAL RECORDS. [employer] [facility]. provides no warranty or guarantee of the accuracy or completeness of information in this document.
[2025-02-23 08:00] LABS: Hematocrit 41.6 % (40-54); Hemoglobin 13.3 g/dL (13.0-16.5); Immature Granulocytes Count 0.030 X10^3/uL (0.0-0.0); Mean Corp Hgb Conc 32.0 g/dL (32-36); Mean Corpuscular Volume 99.5 fL (80-94); Mean Platelet Vol. 11.7 fl (6.2-12.0); NRBC Flagged by Analyzer 0 % (0-5); Platelet Count 167 K/mm3 (150-450); RBC Distribution Width CV 14.3 % (11.6-14.6); RBC Distribution Width SD 51.9 fl (35.1-43.9); Red Blood Count 4.18 M/mm3 (4.6-6.2); White Blood Count 7.2 K/mm3 (4.4-11.0)
[2025-02-23 08:16] LABS: AST(SGOT) 27 U/L (<=37); Alanine Aminotransfer ALT/SGPT 8 U/L (<=46); Albumin, Serum 3.4 g/dL (3.4-4.8); Alkaline Phosphatase 72 U/L (40-129); Anion Gap 8 (7-18); BUN 15 mg/dL (4-19); BUN/Creat Ratio 15.6 RATIO (10-20); Calcium,Total 8.8 mg/dL (7.6-11.0); Carbon Dioxide 28.0 mmol/L (20.0-29.0); Chloride 106 mmol/L (96-106); Globulin 3.1 g/dL (2.2-4.2); Glucose 88 mg/dL (70-99); Potassium 4.0 mmol/L (3.5-5.1)
== END ==
LOC: OLS.WHLCAR 04:00
PROVIDERS: PCP Internal Medicine; Referring Provider Internal Medicine; Visit Provider Internal Medicine
DX: G30.9 Alzheimer's disease, unspecified (principal); F02.818 Dementia in other diseases classified elsewhere, unspecified severity, with other behavioral disturbance; G25.0 Essential tremor; I48.20 Chronic atrial fibrillation, unspecified
CPT/HCPCS: 36415; 80053; 85025